=== PATIENT | male | born 1955 | race African-American/Black ===

== ENCOUNTER 2022-12-04 11:23 | Observation (INO) | payer OTHER, SELFPAY ==
[2022-12-04] VITALS (21 sets, daily range): BP systolic 94–143; BP diastolic 66–84; PULSE 58–82; RESP 12–20; TEMP 36–36.7; O2SAT 93–100; BMI 33.0
--- NOTE | ~2022-12-04 | XR_ITS ---
Portable chest x-ray Comparison: None Clinical History: Chest pain Findings: Lungs are clear, without focal consolidation or pleural effusion. Cardiomediastinal silho uette is unremarkable. Bones and soft tissues are unremarkable. Impression: Clear lungs. Reviewed, dictated and finalized at location M. OR QUALITY METHODS SPECIALIST Impression: Clear lungs.
--- NOTE | 2022-12-04 11:26 | ECG_ITS ---
Measurements Intervals [place] Rate: 60 P: 49 WY: 196 QRS: -35 QRSD: 108 T: 60 QT: 415 QTc: 416 Interpretive Statements SINUS RHYTHM MARKED LEFT AXIS DEVIATION [QRS AXIS < -30] INCOMPLETE RIGHT BUNDLE BRANCH BLOCK [90+ ms QRS DURATION, TERMINAL R IN V1/V2, 40+ ms S IN I/aVL/V4/V5/V6] NONSPECIFIC T-WAVE ABNORMALITY ABNORMAL ECG NO PREVIOUS ECG AVAILABLE FOR COMPARISON Electronically Signed On 12-04-2022 12:08:38 HOLE FILLER by Srinath Rod M.D.
--- NOTE | 2022-12-04 11:38 | ED.CHESTPAIN ---
HPI - Chest Pain General Chief Complaint: Chest Pain <NAUN Christiansen Last Filed: 12/04/22 16:40> Stated Complaint: cp <Shefali Bustamante PA-C - Last Filed: 12/04/22 16:40> Time Seen by Provider: 12/04/22 11:37 <Shefali Bustamante PA-C - Last Filed: 12/04/22 16:40> Source: patient and EMS <NAUN Christiansen Last Filed: 12/04/22 16:40> Mode of arrival: EMS <NAUN Christiansen Last Filed: 12/04/22 16:40> Limitations: no limitations <Shefali Bustamante PA-C - Last Filed: 12/04/22 16:40> History of Present Illness HPI narrative: This is a 67 year old male that presents to the ER for chest pain today. Reports he was walking up the steps and started to feel lightheaded like he was going to pass out. Reports he started to have chest pressure and feel short of breath. He called EMS for evaluation. He was given a dose of Aspirin and nitroglycerin in route. He does have a poultry debeaker that he sees at the [place] for his history of Afib. Reports he has had negative stress tests in the past. Denies lower extremity edema. <Shefali Bustamante PA-C - Last Filed: 12/04/22 16:40> Related Data Allergies/Adverse Reactions: Allergies Allergy/AdvReac Type Severity Reaction Status Date / Time No Known Allergies Allergy Verified 12/04/22 11:33 <Shefali Bustamante PA-C - Last Filed: 12/04/22 16:40> Review of Systems Review of Systems: CONSTITUTIONAL: Denies fever CARDIOVASCULAR: Reports chest pain. Denies edema. RESPIRATORY: Reports dyspnea. GASTROINTESTINAL: Denies abdominal pain, nausea, vomiting <NAUN Christiansen Last Filed: 12/04/22 16:40> All systems reviewed & are unremarkable except as noted in HPI and below <NAUN Christiansen Last Filed: 12/04/22 16:40> [facility] Past Medical History Medical History: Medical History (Updated 12/04/22 @ 16:50 by Mel Oliveros NP) End stage renal disease with hypertension History of atrial fibrillation History of chronic kidney disease History of diabetes mellitus History of hyperlipidemia Hypertension <Shefali Bustamante PA-C - Last Filed: 12/04/22 16:40> Surgical History Surgical History: Surgical History (Updated 12/04/22 @ 16:50 by Mle Oliveros NP) H/O cardiac radiofrequency ablation H/O hand surgery Surgery to finger History of colostomy reversal History of incisional hernia repair Hx of colostomy <Shefali Bustamante PA-C - Last Filed: 12/04/22 16:40> Family History Family History: Family History Mother Hypertension Father Hypertension Heart disease Sibling Heart disease <Shefali Bustamante PA-C - Last Filed: 12/04/22 16:40> Social History Social History: Social History (Updated 12/04/22 @ 16:51 by Mel Oliveros NP) Social History: The patient is retired from a [employer]. He lives with his . He has 3 children. The patient is a former smoker. The patient denies any alcohol marijuana illicit drugs. 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 Code status full code. Smoking packs per day: 2 Smoking cigarettes per day: 40.0 Years smoked: 10 Smoking pack-years: 20.00 Smoking status: Former smoker Lack of Transportation: No Lack of Food: Never True Current Housing: I Have Housing Concerned About Future Housing: No Difficulty Paying Gas/Electric Bills: YES Difficulty Paying for Meds: YES Currently Unemployed: No Education: Bachelor's Degree Difficulty w/ Childcare or Family Care: No Spiritual care concerns: No <Shefali Bustamante PA-C - Last Filed: 12/04/22 16:40> Exam Narrative: GENERAL: Well-nourished, and in no acute distress. HEAD: Normocephalic, atraumatic. EYES: EOMI. ENT: Nares clear, no rhinorrhea or epistaxis. Mucous membranes moist. Oropharynx without tonsillar hypertrophy exudate or other lesions. CHEST: Clear to auscultation. No respiratory distress.
[2022-12-04 12:01] LABS: Basophils Percent Auto 0.3 % (0.2-1.2); Eosinophils Absolute Auto 0.1 K/mm3 (0-0.3); Eosinophils Percent Auto 0.7 % (0-4.4); Hematocrit 34.6 % (42.0-52.0); Hemoglobin 11.5 g/dL (14.0-18.0); Immature Granulocyte Absolute 0.05 K/mm3 (0.00-0.031); Immature Granulocyte Percent A 0.5 % (0-0.5); Lymphocytes Absolute Auto 1.18 K/mm3 (0.9-3.2); Lymphocytes Percent Auto 10.7 % (18.3-44.2); Mean Corpuscular HGB Conc 33.2 g/dl (32-36); Mean Corpuscular Hemoglobin 30.1 pg (26-34); Mean Corpuscular Volume 90.6 fl (80-100); Mean Platelet Volume 10.8 fl (7.4-10.4); Monocytes Absolute Auto 1.2 K/mm3 (0.1-0.6); Monocytes Percent Auto 10.8 % (2.6-8.5); Neutrophils Absolute Auto 8.5 K/mm3 (1.3-6.7); Platelet Count Result 211 k/mm3 (150-375); Red Blood Count 3.82 M/mm3 (4.6-6.20); Red Cell Distribution Width 13.4 % (11.5-14.5); White Blood Count 11.1 K/mm3 (4.5-10.0)
[2022-12-04 12:12] LABS: Alanine Aminotransferase 21 U/L (6-50); Albumin Level 3.9 g/dL (3.5-5.1); Alkaline Phosphatase 102 U/L (38-126); Anion Gap 7 mmol/L (8-16); Aspartate Amino Transferase 20 U/L (17-59); Bilirubin,Total 0.6 mg/dL (0.2-1.3); Blood Urea Nitrogen 51 mg/dL (9-20); Calcium 8.2 mg/dL (8.4-10.2); Carbon Dioxide 24 mmol/L (22-30); Chloride 102 mmol/L (98-107); Estimated CRCL calculation 12 ml/min; Estimated Glomerular Filt Rate 10; Glucose 129 mg/dL (65-110); Lipase 356 U/L (23-300); Potassium 4.2 mmol/L (3.4-5.0); Sodium 133 mmol/L (137-145)
[2022-12-04 12:13] LABS: INR 1.6; Prothrombin Time 18.4 Seconds (11.1-14.7)
[2022-12-04 12:14] LABS: Partial Thromboplastin Time 36.8 SECONDS (22.3-36.8)
[2022-12-04 12:24] LABS: Troponin I < 0.012 ng/mL (0.000-0.034)
[2022-12-04 13:46] LABS: Influenza A QL RT-PCR Negative (Negative); Influenza B QL RT-PCR Negative (Negative); RSV RNA, RT-PCR Negative (Negative); SARS-CoV-2 RNA PCR Negative
--- NOTE | 2022-12-04 14:44 | PC.NURSE ---
[facility] called no beds at [facility]
[2022-12-04 15:11] LABS: Troponin I < 0.012 ng/mL (0.000-0.034)
--- NOTE | 2022-12-04 16:14 | PM.IMHP ---
H&P: HPI History of Present Illness Date/Time: 12/04/22 16:14 Chief Complaint: Chest pain Narrative: This is a 67-year-old male patient who came to the emergency room and far presyncopal episode today. The patient was walking up steps and started feeling lightheaded as if he was going to pass out. The patient started to have chest pressure and was feeling short of breath. He called the EMS for evaluation. The patient was given a dose of aspirin and nitro EN route. 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 He reports that he recently had a negative stress test. H&H 11.5 and 34.6. BUN 51 creatinine 6 weeks 6. Glucose 129. Troponin nonreactive x2. Influenza A/B RSV and COVID are negative. The patient stated that he is scheduled to have a port put in next week for dialysis. Chest x-ray was read as clear lungs. The patient was given an aspirin. The patient stated that he is waiting to be put on a transplant list. The patient stated that he has never had a cardiac catheterization or cardiac stent. The patient is currently in sinus rhythm. Cardiology has been consulted as well as Nephrology. The patient is being admitted to observation status on the date of service of 12/04/2022. Review of Systems Review of Systems: See HPI All systems reviewed & are unremarkable except as noted in HPI and below Constitutional: Constitutional: Reports as per HPI and Reports no additional constitutional complaints Eyes: Eyes: Reports as per HPI and Reports no additional eye complaints ENT: Reports system reviewed and no additional complaints, except as documented and Reports Normal hearing present Cardiovascular: Cardiovascular: Reports no additional cardiovascular complaints Respiratory: Respiratory: Reports no additional respiratory complaints and Reports no additional respiratory complaints Gastrointestinal: Gastrointestinal: Reports as per HPI and Reports no additional gastrointestinal complaints Musculoskeletal: Musculoskeletal: Reports no additional musculoskeletal complaints Integumentary/Breasts: Skin/Breast: Reports system reviewed and no additional complaints, except as docu and Reports as per HPI Neurologic: Reports system reviewed and no additional complaints, except as documented, Reports as per HPI and Reports Normal hearing present Psychiatric: Psychiatric: Reports no additional psychiatric complaints and Reports as per HPI Endocrine: Endocrine: Reports no additional endocrine complaints Hematologic/Lymphatic: Hematologic/Lymphatic: Reports no additional hematologic/lymphatic complaints Allergic/Immunologic: Allergic/Immunologic: Reports no additional allergic/immunologic complaints [facility] Past Medical History Medical History (Updated 12/04/22 @ 16:50 by Mel Oliveros NP) End stage renal disease with hypertension History of atrial fibrillation History of chronic kidney disease History of diabetes mellitus History of hyperlipidemia Hypertension Surgical History Surgical History (Updated 12/04/22 @ 16:50 by Mel Oliveros NP) H/O cardiac radiofrequency ablation H/O hand surgery Surgery to finger History of colostomy reversal History of incisional hernia repair Hx of colostomy Family History Family History (Updated 12/04/22 @ 16:45 by Mel Oliveros NP) Mother Hypertension Father Hypertension Heart disease Sibling Heart disease Social History Social History (Updated 12/04/22 @ 16:51 by Mel Oliveros NP) Social History: 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 He lives with his . He has 3 children. The patient is a former smoker. The patient denies any alcohol marijuana illicit drugs. The is the durable power staff attorney for healthcare. Code status full code. Smoking packs per day: 2 Smoking cigarettes per day: 40.0 Years smoked: 10 Smoking pack-years: 20.00 Smoking status: Former smoker Lack of Transportation: No [place]
--- NOTE | 2022-12-04 16:18 | ADMGEN ---
This patient, Kemal Cali, was admitted to IMU Room 209-01 at 1618. Patient/family oriented to hospital policies and general routines including ID bracelet, bed and alarms, visiting hours, pain management, procedures, bathroom and other care routines, personal items, smoking policy, room service/diet, and visiting hours. Information on how to activate the Rapid Response Team has been discussed. Patient/Family are encouraged to report perceived risks to care and to ask questions if they do not understand what they are told or what they should do.
[2022-12-04 16:43] LABS: Glucose Point of Care 105 mg/dl (65-105)
[2022-12-04 18:31] LABS: Troponin I < 0.012 ng/mL (0.000-0.034)
[2022-12-04 20:17] LABS: Glucose Point of Care 162 mg/dl (65-105)
[2022-12-04] MEDS: ATORVASTATIN 40 MG TABLET 80 MG PO (22:40)
[2022-12-04] MEDS: APIXABAN 5 MG TABLET PO (22:40)
[2022-12-04] MEDS: SODIUM BICARBONATE TAB 650 MG TABLET 1300 MG PO (22:40)
[2022-12-04] MEDS: GABAPENTIN 300 MG CAPSULE 600 MG PO (22:40)
[2022-12-04] MEDS: TAMSULOSIN HCL 0.4 MG CAPSULE PO (22:41)
[2022-12-05] VITALS (10 sets, daily range): BP systolic 138–144; BP diastolic 68–77; PULSE 58–69; RESP 18–20; TEMP 36.6–36.9; O2SAT 98–99
--- NOTE | 2022-12-05 | ECHO_ITS ---
Patient Info Name: Kemal Cali Age: 67 years : 1955 Gender: Male Ht: 69 in Wt: 223 lbs BSA: 2.25 m2 HR: 62 bpm BP: 133 / 82 mmHg Heart Rhythm: Sinus Rhythm Exam Date: 12/05/2022 8:18 AM Exam Location: [facility] Patient Status: Inpatient Admit Date: 12/04/2022 Staff Ordering Physician: Mel Oliveros NP Biochemist: Jose Angel Hicks RDCS, RT Attending Provider: Louise Blanchard DO Referring Physician: Arlin LANDRY; Exam Type: CA echo doppler color flow Study Info Indications J96.91 - Respiratory failure, unspecified with hypoxia R06.00 - Dyspnea, unspecified Complete two-dimensional, color flow and Doppler transthoracic echocardiogram is performed. Summary 1. Complete two-dimensional, color flow and Doppler transthoracic echocardiogram is performed. 2. Normal left ventricular size, hyperdynamic systolic function and grade 1 diastolic noncompliance. 3. No valvular dysfunction. 4. No ischemic wall motion abnormalities. Left Ventricle Left ventricular chamber dimension is normal. Left ventricular systolic function is hyperdynamic, estimated at >70%. The left ventricular diastolic function is grade I diastolic dysfunction. Right Ventricle Right ventricular chamber dimension is normal. Left Atria Left atrial chamber dimension is normal. Right Atria Right atrial chamber dimension is normal. Aortic Valve The aortic valve is normal. Pulmonic Valve The pulmonic valve is not well visualized. Mitral Valve The mitral valve has normal leaflets. Tricuspid Valve The tricuspid valve leaflets are normal. Pericardium/Pleural The pericardium appears normal. Aorta The aortic root size at the sinus of Valsalva is normal. Left Ventricular Outflow Tract Name Value Normal LVOT 2D LVOT Diameter 2.1 cm LVOT Doppler LVOT Peak Gradient 4 mmHg LVOT Mean Gradient 2 mmHg LVOT VTI 21 cm LVOT VTI/AV VTI Ratio 1.1 LVOT Stroke Volume 72 ml LVOT CO 4.9 l/min LVOT CI 2.2 l/min/m2 Mitral Valve Name Value Normal MV Doppler MV Peak Gradient 1 mmHg MV Mean Gradient 0 mmHg MV Decel [place] 263 cm/s2 MV PHT 68 ms MV Area (PHT) 3.2 cm2 4.0-5.0 MV Area (Cont Eq VTI) 6.2 cm2 MV Regurgitation Doppler MR Volume (Cont Eq) 13 ml MR Fraction (Cont Eq) 16 % MV Diastolic Function
[2022-12-05 04:50] LABS: Basophils Percent Auto 0.2 % (0.2-1.2); Eosinophils Absolute Auto 0.3 K/mm3 (0-0.3); Eosinophils Percent Auto 3.2 % (0-4.4); Hematocrit 34.4 % (42.0-52.0); Hemoglobin 11.4 g/dL (14.0-18.0); Immature Granulocyte Absolute 0.04 K/mm3 (0.00-0.031); Immature Granulocyte Percent A 0.5 % (0-0.5); Lymphocytes Absolute Auto 1.42 K/mm3 (0.9-3.2); Lymphocytes Percent Auto 17.5 % (18.3-44.2); Mean Corpuscular HGB Conc 33.1 g/dl (32-36); Mean Corpuscular Hemoglobin 29.7 pg (26-34); Mean Corpuscular Volume 89.6 fl (80-100); Mean Platelet Volume 10.8 fl (7.4-10.4); Monocytes Absolute Auto 0.7 K/mm3 (0.1-0.6); Monocytes Percent Auto 9.1 % (2.6-8.5); Neutrophils Absolute Auto 5.6 K/mm3 (1.3-6.7); Neutrophils Percent Auto 69.5 % (45.5-73.1); Platelet Count Result 212 k/mm3 (150-375); Red Blood Count 3.84 M/mm3 (4.6-6.20); Red Cell Distribution Width 13.2 % (11.5-14.5); White Blood Count 8.1 K/mm3 (4.5-10.0)
[2022-12-05 05:01] LABS: Alanine Aminotransferase 21 U/L (6-50); Albumin Level 3.7 g/dL (3.5-5.1); Alkaline Phosphatase 99 U/L (38-126); Anion Gap 9 mmol/L (8-16); Aspartate Amino Transferase 21 U/L (17-59); Bilirubin,Total 0.4 mg/dL (0.2-1.3); Blood Urea Nitrogen 51 mg/dL (9-20); Calcium 8.3 mg/dL (8.4-10.2); Carbon Dioxide 23 mmol/L (22-30); Chloride 108 mmol/L (98-107); Estimated CRCL calculation 12 ml/min; Estimated Glomerular Filt Rate 10; Glucose 127 mg/dL (65-110); Lipase 473 U/L (23-300); Magnesium 1.9 mg/dL (1.6-2.3); Potassium 4.1 mmol/L (3.4-5.0); Sodium 140 mmol/L (137-145)
[2022-12-05 05:04] LABS: Lactic Acid Reflex 1.1 mmol/L (0.7-2.0)
[2022-12-05 05:36] LABS: Hemoglobin A1C 5.8 % (<5.7)
[2022-12-05 05:50] LABS: Hepatitis B Surface Antigen Negative (Negative)
[2022-12-05 05:56] LABS: HAV RESULT Negative (Negative); Hepatitis B Core IgM Result Negative (Negative)
[2022-12-05 06:10] LABS: Hepatitis B Surface Anti Res Positive; Hepatitis C Virus Antibody Negative (Negative)
[2022-12-05 08:29] LABS: Glucose Point of Care 125 mg/dl (65-105)
[2022-12-05] MEDS: APIXABAN 5 MG TABLET PO (09:00)
[2022-12-05] MEDS: CHOLECALCIFEROL 1,000 UNITS TABLET 1000 UNITS PO (09:01)
[2022-12-05] MEDS: MAGNESIUM OXIDE 400 MG TABLET PO (09:01)
[2022-12-05] MEDS: METOPROLOL SUCCINATE EXT REL 100 MG TABCR PO (09:01)
[2022-12-05] MEDS: SODIUM BICARBONATE TAB 650 MG TABLET 1300 MG PO (09:02)
[2022-12-05] MEDS: NIFEdipine 30 MG TAB.ER.24 90 MG PO (09:02)
[2022-12-05] MEDS: TAMSULOSIN HCL 0.4 MG CAPSULE PO (09:02)
--- NOTE | 2022-12-05 10:56 | PM.CNCAR ---
Assessment and Plan Assessment and plan (1) Chest pain: Qualifiers: Chest pain type: unspecified Qualified Code(s): R07.9 - Chest pain, unspecified Code(s): R07.9 - Chest pain, unspecified Status: Acute (2) Near syncope: Code(s): R55 - Syncope and collapse Status: Acute Plan This is a 67-year-old black male with a history of atrial fibrillation which apparently has been successfully ablated at the [facility]. He is maintaining sinus rhythm. He came to the hospital yesterday after couple of near syncopal episodes that occurred as an outpatient. His telemetry has been benign since admission to the hospital. An echocardiogram apparently has been done this morning I have yet been up to the echo lab to interpret the exam. There is no evidence of acute coronary syndrome his troponins are negative and he has no history of coronary disease and describes having had at least several stress test at the [facility] that have been negative. He does have near end-stage renal disease and is anticipating vascular access placement at the [facility] for institution of hemodialysis. I believe at this point acute coronary syndrome has been ruled out. If his echocardiogram looks unrevealing I do not believe that he needs to stay in this hospital for further evaluation/monitoring. He has very good medical care and cardiovascular care established at the [facility]. Mert Aldana MD [facility] History of Present Illness History of Present Illness Consult date/time: 12/05/22 10:56 Reason For Visit: chest pain Narrative: This is a 67-year-old man unknown to us here at [facility] prior to this admission. He came to the hospital yesterday and was admitted after a couple of episodes of near syncope that occurred outside of the hospital. 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 His vision started to go dark and then he almost lost consciousness and then regained and recovered relatively quickly. Short time later a similar episode occurred and so he had coworkers call an ambulance and he was brought to the hospital for evaluation. The patient other than feeling tired has no specific complaints this morning his electrocardiogram shows sinus rhythm with a nonspecific T-wave abnormality. He has serial troponin levels that have been sampled and they are negative. He offers no other significant complaints. The with regard to chest pain he states that he does have episodes of some mid interscapular back pain that at times will radiate into the center of his chest. The symptoms have been occurring intermittently for at least to 2 or 3 years. The patient receives his medical care at the [facility] and cardiac storm has and a history of atrial fibrillation. He states that physicians at the [facility] have treated him with several ablation procedures which ultimately seem to have succeeded in maintaining sinus rhythm for he thinks about the last 5 or 6 years. Does not have any other known cardiac problems he states that he has had at least 3 stress test at the [facility] at evaluating the symptoms of back pain and also evaluating him as a candidate for renal transplantation. He states he has a history of diabetes and hypertension but preceding that he has a history of renal disease and he does not have a specific reason for his renal failure that he understands. A local company refrigerated truck driver at the [facility] is following him and they are making preparations to established vascular access for hemodialysis his creatinine here at [facility] is up to 6. He states he is hopeful of getting on the list for a kidney transplant as well. He states he does have occasional syncopal episodes in the past which are attributed episodes of diabetic hypoglycemia. He recognizes the sympto
--- NOTE | 2022-12-05 11:15 | PM.CNNEP ---
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/dialysis at this time follow trend of repeat labs and UOP (2) Near syncope: Code(s): R55 - Syncope and collapse Status: Acute Assessment and Plan: as noted by admission history trend of troponins negative no further episodes since hospitalization Cardiology recommendations noted (3) Hypertension: Code(s): I10 - Essential (primary) hypertension Status: Chronic Assessment and Plan: reasonable control given advanced CKD, would avoid overcontrol for now follow trend of hemodynamics (4) Diabetes: Code(s): E11.9 - Type 2 diabetes mellitus without complications Status: Chronic Assessment and Plan: follow accuchecks glycemic control per hospitalists Will continue to follow. History of Present Illness Reason for Consult Consult date: 12/05/22 Reason for consult: chronic renal failure Chief Complaint Chief complaint: chest pain History of Present Illness Narrative: The patient is a 67-year-old male with a past medical history as outlined below who presented to [facility] Emergency room yesterday for further evaluation of near-syncope. Apparently, the patient had a couple episodes of near-syncope yesterday afternoon. He reports he was walking up some steps at his job when suddenly felt a sense of uneasiness in association with lightheadedness and he felt like he was going to lose consciousness /pass out. His vision became somewhat dark but prior to loss of consciousness he quickly regained his sense of well-being and recovered fairly quickly. A short time later after this episode a similar episode occurred and at that time he instructed is cold all coworkers to call an ambulance to be taken to the hospital ER for further assessment. Workup and evaluation in emergency room demonstrated the patient to be hemodynamically stable and his EKG initial troponins were unrevealing for any type of acute coronary syndrome/ischemic changes. Routine blood tests including his CBC were unrevealing but his chemistry demonstrated advanced kidney disease that is consistent with his known history. The patient apparently of sees the majority of his medical care at [facility] and the ambulance was apparently and root there but given his symptomatology, he was diverted to [facility] for further assessment. As there were no beds available for transfer at the time of the patient's evaluation in the ER, he was subsequent admitted to [facility] for further evaluation and therapy. Since admission, he has been seen by Cardiology with recommendations noted and for the tentative plan for possible discharge if his echocardiogram does not show any type of abnormalities to explain the a for mentioned symptoms that led to his presentation to the hospital. Renal consultation was requested due to his advanced kidney disease. The patient follows with Dr. Angela Augustin for management of his advanced chronic kidney disease. Apparently, the basis of his chronic kidney disease is due to focal segmental glomerulosclerosis with probably some contributions to his known hypertension and diabetes. Apparently, his chronic kidney disease has been progressively worsening over last few months and has eventually recommended that he have AV access placement for his long-term dialysis needs as well as to apply for a renal transplantat
[2022-12-05 12:38] LABS: Glucose Point of Care 117 mg/dl (65-105)
--- NOTE | 2022-12-05 13:10 | PM.IMPN ---
Progress Note: A&P Assessment and Plan (1) Chest pain: Qualifiers: Chest pain type: unspecified Qualified Code(s): R07.9 - Chest pain, unspecified Code(s): R07.9 - Chest pain, unspecified Status: Acute Assessment and Plan: Continue to trend troponin. So for the troponins have been nonreactive x2. -cardiology has been consulted -chest x-ray negative -continue to trend troponin. -request records for stress test. (2) Hypertension: Code(s): I10 - Essential (primary) hypertension Status: Acute Assessment and Plan: -p.r.n. Hydralazine for now. The patient's list of home medications are not in place at this time. (3) History of diabetes mellitus: Code(s): Z86.39 - Personal history of other endocrine, nutritional and metabolic disease Status: Acute Assessment and Plan: -Accu-Cheks AC and HS with sliding scale and hypoglycemic protocol. -check A1c. (4) History of chronic kidney disease: Code(s): Z87.448 - Personal history of other diseases of urinary system Status: Acute Assessment and Plan: -the patient stated that he is supposed to have a port placed in 1 week. The patient stated he is not yet on a transplant list but would like to be. Nephrology has been consulted. (5) History of atrial fibrillation: Code(s): Z86.79 - Personal history of other diseases of the circulatory system Status: Acute Assessment and Plan: -the patient had an ablation recently. Unsure if the patient is on any anticoagulation. (6) End stage renal disease with hypertension: Code(s): I12.0 - Hypertensive chronic kidney disease with stage 5 chronic kidney disease or end stage renal disease; N18.6 - End stage renal disease Status: Acute Assessment and Plan: Patient stated that he is supposed to receive a port for dialysis next week. Nephrology has been consulted. Patient's creatinine 6.6 with a GFR of 10. His potassium was within normal limits. Subjective Date/time seen: 12/05/22 13:10 No new complaints Exam Const: General: cooperative, healthy appearing, comfortable, no acute distress, well developed, alert, awake, Physically active, average body habitus and well nourished Nutritional Appearance: average body habitus and well nourished Orientation/consciousness: oriented to person, oriented to place, oriented to time and patient oriented x3 Limitations: no limitations HENMT: Head: normal to inspection, No palpable skull fracture present, normocephalic and atraumatic Ears: hearing grossly normal bilaterally and external ears normal Face/Nose/Sinus: Normal external nose present and Normal nares present Eyes: General: appearance normal, both eyes and all related structures Alignment and Position: alignment normal Periorbital: periorbital findings normal Eyelids: eyelids normal Sclera: sclerae normal Cornea: corneas normal Pupils: Equal, round and reactive pupils present EOM: EOMs intact bilaterally Neck: Neck: normal visual inspection, full ROM, no lymphadenopathy, trachea midline and supple Chest: Chest palpation & inspection: normal inspection of the chest Resp: Effort & Inspection: normal respiratory effort Auscultation: clear to auscultation bilaterally Cardio: Palpation: normal PMI Rate: regular rate Rhythm: regular rhythm Heart sounds: S1 normal heart sound present and S2 normal heart sound present Peripheral pulses: Peripheral pulses 2+ throughout GI: Inspection: normal to inspection Auscultation: normal bowel sounds Rectal Exam: deferred Back/Spine/Pelvis: Cervical Spine: cervical ROM normal Skin: General skin exam: normal color Lesions: no lesions Rashes: no rashes Trauma: no lacerations or abrasions Wounds: no wounds Hair: normal Nails: normal Neuro: General: oriented to person, oriented to place, oriented to time and patient oriented x3 Cranial nerves: Yes Equal, round and reactive pupils prese
--- NOTE | 2022-12-05 15:26 | PM.DS ---
DS: Admitting Diagnosis Discharge Date 12/05/22 Admitting Diagnosis chest pain DS: Discharge Diagnosis Discharge Diagnosis (1) Chest pain: Qualifiers: Chest pain type: unspecified Qualified Code(s): R07.9 - Chest pain, unspecified Code(s): R07.9 - Chest pain, unspecified Status: Acute Assessment and Plan: Continue to trend troponin. So for the troponins have been nonreactive x2. -cardiology has been consulted -chest x-ray negative -continue to trend troponin. -request records for stress test. (2) Hypertension: Code(s): I10 - Essential (primary) hypertension Status: Chronic Assessment and Plan: -p.r.n. Hydralazine for now. The patient's list of home medications are not in place at this time. (3) History of diabetes mellitus: Code(s): Z86.39 - Personal history of other endocrine, nutritional and metabolic disease Status: Acute Assessment and Plan: -Accu-Cheks AC and HS with sliding scale and hypoglycemic protocol. -check A1c. (4) History of chronic kidney disease: Code(s): Z87.448 - Personal history of other diseases of urinary system Status: Acute Assessment and Plan: -the patient stated that he is supposed to have a port placed in 1 week. The patient stated he is not yet on a transplant list but would like to be. Nephrology has been consulted. (5) History of atrial fibrillation: Code(s): Z86.79 - Personal history of other diseases of the circulatory system Status: Acute Assessment and Plan: -the patient had an ablation recently. Unsure if the patient is on any anticoagulation. (6) End stage renal disease with hypertension: Code(s): I12.0 - Hypertensive chronic kidney disease with stage 5 chronic kidney disease or end stage renal disease; N18.6 - End stage renal disease Status: Acute Assessment and Plan: Patient stated that he is supposed to receive a port for dialysis next week. Nephrology has been consulted. Patient's creatinine 6.6 with a GFR of 10. His potassium was within normal limits. DS: Summary Hospital Course Hospital Course: admitted for chest pain- cardiology and nephrology evaluated patient - no further powell indicated and he can fu with nephrology and cardiology at [place] Time Spent with Patient Time attestation: Total time spent providing and/or coordinating discharge services: Exam Const: General: cooperative, healthy appearing, comfortable, no acute distress, well developed, alert, awake, Physically active, average body habitus and well nourished Nutritional Appearance: average body habitus and well nourished Orientation/consciousness: oriented to person, oriented to place, oriented to time and patient oriented x3 Limitations: no limitations HENMT: Head: normal to inspection, No palpable skull fracture present, normocephalic and atraumatic Ears: hearing grossly normal bilaterally and external ears normal Face/Nose/Sinus: Normal external nose present and Normal nares present Eyes: General: appearance normal, both eyes and all related structures Alignment and Position: alignment normal Periorbital: periorbital findings normal Eyelids: eyelids normal Sclera: sclerae normal Cornea: corneas normal Pupils: Equal, round and reactive pupils present EOM: EOMs intact bilaterally Neck: Neck: normal visual inspection, full ROM, no lymphadenopathy, trachea midline and supple Chest: Chest palpation & inspection: normal inspection of the chest Resp: Effort & Inspection: normal respiratory effort Auscultation: clear to auscultation bilaterally Cardio: Palpation: normal PMI Rate: regular rate Rhythm: regular rhythm Heart sounds: S1 normal heart sound present and S2 normal heart sound present Peripheral pulses: Peripheral pulses 2+ throughout GI: Inspection: normal to inspection Auscultation: normal bowel sounds Rectal Exam: deferred Back/Spine/Pelvis: Cervical Spine: cervica
[2022-12-10 14:14] LABS: Hepatitis B Core Ab Total Nonreactive (Nonreactive)
== END 2022-12-05 16:10 | disposition home or self-care (01) ==
LOC: ANHED 13:36 → ANHIMU 15:37
PROVIDERS: Emergency Medicine; Internal Medicine Nephrology; Nurse Practitioner; Admitting Provider Student in an Organized Health Care Education/Training Program; Emergency Provider Physician Assistant; Visit Provider Chiropractor
DX: I12.0 Hypertensive chronic kidney disease with stage 5 chronic kidney disease or end stage renal disease (principal); E11.22 Type 2 diabetes mellitus with diabetic chronic kidney disease; N18.6 End stage renal disease; R07.9 Chest pain, unspecified; R55 Syncope and collapse; I48.91 Unspecified atrial fibrillation; J96.91 Respiratory failure, unspecified with hypoxia; E78.5 Hyperlipidemia, unspecified; Z20.822 Contact with and (suspected) exposure to COVID-19; R74.8 Abnormal levels of other serum enzymes; R94.31 Abnormal electrocardiogram [ECG] [EKG]; D72.829 Elevated white blood cell count, unspecified; D64.9 Anemia, unspecified; Z82.49 Family history of ischemic heart disease and other diseases of the circulatory system; Z87.891 Personal history of nicotine dependence; Z79.01 Long term (current) use of anticoagulants; Z79.4 Long term (current) use of insulin; Z79.85 Long-term (current) use of injectable non-insulin antidiabetic drugs; Z79.899 Other long term (current) drug therapy
CPT/HCPCS: 36415; 71045; 80053; 80074; 82948; 83036; 83605; 83690; 83735; 84443; 84484; 85025; 85610; 85730; 86704; 86706; 87340; 87637; 93005; 93306; 99285; A9270; G0378

== ENCOUNTER 2024-06-15 12:09 | Emergency (ER) | payer OTHER, SELFPAY ==
[2024-06-15] VITALS (8 sets, daily range): BP systolic 111–165; BP diastolic 59–84; PULSE 42–64; RESP 12–26; TEMP 36.7; O2SAT 97–99
--- NOTE | ~2024-06-15 | XR_ITS ---
XR chest 1V portable 06/15/2024 13:10 Indication: Hypotension. Bradycardia. Procedure: AP portable chest Comparison: 12/04/2022 Findings: Heart size normal. No focal air space disease, pulmonary edema, pleural effusion or suspect ed pneumothorax. Impression: 1: No acute cardiopulmonary disease. Reviewed, dictated and finalized at location B. Impression: 1: No acute cardiopulmonary disease.
--- NOTE | 2024-06-15 12:13 | ECG_ITS ---
Test Date: 2024-06-15 12:25:24 Measurements Intervals [place] Rate: 47 P: 29 NC: 193 QRS: -36 QRSD: 110 T: 39 QT: 427 QTc: 378 Interpretive Statements SINUS BRADYCARDIA LEFT AXIS DEVIATION INCOMPLETE RIGHT BUNDLE BRANCH BLOCK BASELINE ARTIFACT- I, II, AVR ABNORMAL ECG No previous ECG available for comparison Electronically Signed On 06-15-2024 12:52:43 CDT by Jose Roe D.O.
--- NOTE | 2024-06-15 12:14 | ED.GENADULT ---
HPI - General Adult General Chief complaint: Weakness Stated complaint: weak, nausea History of Present Illness HPI narrative: 68-year-old male with end-stage kidney disease presented emergency department for evaluation for lightheadedness. Patient states symptoms started approximately 8:00 a.m. this morning. Patient states he has been eating and drinking well. Patient reports he was feeling okay yesterday. Patient denies any chest pain or shortness of breath. Patient denies any nausea vomiting or diarrhea. Patient was at dialysis when he began feeling poorly. Patient had a heart rate in the 40s to 50s and a blood pressure in the 70s systolic EMS was called and patient arrived to the emergency department with IV fluids running. Patient states he does feel mildly improved patient's blood pressure is improved. Related Data Home Medications Medication Instructions Recorded Confirmed apixaban 5 mg tablet 5 mg PO BID 12/04/22 12/04/22 atorvastatin 80 mg tablet 80 mg PO HS 12/04/22 12/04/22 calcitriol 0.5 mcg capsule 0.5 mcg PO 3XW 12/04/22 12/04/22 ergocalciferol (vitamin D2) 50,000 1,000 unit PO DAILY 12/04/22 12/04/22 unit tablet febuxostat 80 mg tablet (Uloric) 80 mg PO DAILY 12/04/22 12/04/22 gabapentin 300 mg tablet 600 mg PO HS 12/04/22 12/04/22 insulin aspart U-100 100 unit/mL 10 unit subcut BID 12/04/22 12/04/22 (3 mL) subcutaneous pen (Novolog FlexPen U-100 Insulin aspart) insulin glargine 100 unit/mL 16 unit subcut DAILY 12/04/22 12/04/22 subcutaneous cartridge magnesium oxide 400 mg PO DAILY 12/04/22 12/04/22 metoprolol succinate 200 mg 100 mg PO DAILY 12/04/22 12/04/22 tablet,extended release 24 hr nifedipine 90 mg tablet,extended 90 mg PO DAILY 12/04/22 12/04/22 release omeprazole magnesium 20 mg 20 mg PO DAILY 12/04/22 12/04/22 tablet,delayed release (Prilosec OTC) semaglutide 1 mg/dose (4 mg/3 mL) 1 mg subcut WEEKLY 12/04/22 12/04/22 subcutaneous pen injector (Ozempic) sodium bicarbonate 650 mg tablet 1,300 mg PO BID 12/04/22 12/04/22 tamsulosin 0.4 mg capsule (Flomax) 0.4 mg PO BID 12/04/22 12/04/22 Allergies Allergy/AdvReac Type Severity Reaction Status Date / Time No Known Allergies Allergy Verified 12/04/22 11:33 Review of Systems Review of Systems: All systems reviewed & are unremarkable except as noted in HPI and below PMFSH Past Medical History Medical History (Updated 06/15/24 @ 15:19 by Naveen Ortiz MD) Chronic kidney disease (CKD), stage V End stage renal disease with hypertension History of atrial fibrillation History of chronic kidney disease History of diabetes mellitus History of hyperlipidemia Hypertension Surgical History Surgical History (Updated 12/04/22 @ 16:50 by Mel Oliveros NP) H/O cardiac radiofrequency ablation H/O hand surgery Surgery to finger History of colostomy reversal History of incisional hernia repair Hx of colostomy Family History Family History Mother Hypertension Father Hypertension Heart disease Sibling Heart disease Social History Social History (Updated 12/04/22 @ 16:51 by Mel Oliveros NP) Social History: 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 He lives with his . He has 3 children. The patient is a former smoker. The patient denies any alcohol marijuana illicit drugs. The is the durable power workers compensation attorney for healthcare. Code status full code. Smoking packs per day: 2 Smoking cigarettes per day: 40.0 Years smoked: 10 Smoking pack-years: 20.00 Smoking status: Former smoker Lack of Transportation: No Lack of Food: Never True Current Housing: I Have Housing Concerned About Future Housing: No Difficulty Paying Gas/Electric Bills: YES Difficulty Paying for Meds: YES Currently Unemployed: No Education: Bachelor's Degree Difficulty w/ Childcare or Family Care: No Spiritual care concerns: No
[2024-06-15 12:36] LABS: Basophils Percent Auto 0.3 % (0.2-1.2); Eosinophils Absolute Auto 0.3 K/mm3 (0-0.3); Eosinophils Percent Auto 2.8 % (0-4.4); Hematocrit 29.1 % (42.0-52.0); Hemoglobin 9.9 g/dL (14.0-18.0); Immature Granulocyte Absolute 0.09 K/mm3 (0.00-0.031); Lymphocytes Absolute Auto 1.81 K/mm3 (0.9-3.2); Lymphocytes Percent Auto 20.2 % (18.3-44.2); Mean Corpuscular Hemoglobin 31.8 pg (26-34); Mean Corpuscular Volume 93.6 fl (80-100); Mean Platelet Volume 10.6 fl (7.4-10.4); Monocytes Absolute Auto 0.7 K/mm3 (0.1-0.6); Monocytes Percent Auto 7.7 % (2.6-8.5); Neutrophils Absolute Auto 6.1 K/mm3 (1.3-6.7); Platelet Count Result 210 k/mm3 (150-375); Red Blood Count 3.11 M/mm3 (4.6-6.20); Red Cell Distribution Width 13.5 % (11.5-14.5); White Blood Count 8.9 K/mm3 (4.5-10.0)
[2024-06-15 12:51] LABS: Alanine Aminotransferase 19 U/L (6-50); Albumin Level 3.9 g/dL (3.5-5.1); Alkaline Phosphatase 60 U/L (38-126); Anion Gap 11 mmol/L (4-12); Aspartate Amino Transferase 22 U/L (17-59); Bilirubin,Total 0.4 mg/dL (0.2-1.3); Blood Urea Nitrogen 56 mg/dL (9-20); Carbon Dioxide 25 mmol/L (22-30); Chloride 98 mmol/L (98-107); Estimated CRCL calculation 9 ml/min; Estimated Glomerular Filt Rate 7; Glucose 114 mg/dL (65-110); Magnesium 1.9 mg/dL (1.6-2.3); Potassium 5.4 mmol/L (3.4-5.0); Sodium 134 mmol/L (137-145)
[2024-06-15 13:03] LABS: Influenza A QL RT-PCR Negative (Negative); Influenza B QL RT-PCR Negative (Negative); RSV RNA, RT-PCR Negative (Negative); SARS-CoV-2 RNA PCR Negative (Negative)
[2024-06-15 14:10] LABS: Add Urine Microscopic? YES; Appearance Urine Clear (Clear); Bacteria Urine None Seen /hpf; Bilirubin Urine Negative (Negative); Blood Urine Trace (Negative); Color Urine Yellow (Yellow); Glucose Urine UA Negative (Negative); Ketones Urine Negative (Negative); Leukocyte Esterase Ur Negative LEU/UL (Negative); Need Manual Microscopic Reviewed; Nitrate Urine Negative (Negative); Protein Urine 1+ mg/dL (Negative); RBC Urine 0-2 /hpf (0-2); Specific Grav Ur 1.007 (1.001-1.035); Squamous Epithelial Cell Urine None Seen /hpf (Few); Urobilinogen Urine 0.2 mg/dL (<2.0); WBC Urine 0-5 /hpf (0-3); pH Urine 5.5 (5.0-9.0)
== END 2024-06-15 15:21 | disposition home or self-care (01) ==
PROVIDERS: Emergency Provider Emergency Medicine
DX: R42 Dizziness and giddiness (principal); N18.6 End stage renal disease; I12.0 Hypertensive chronic kidney disease with stage 5 chronic kidney disease or end stage renal disease; E11.22 Type 2 diabetes mellitus with diabetic chronic kidney disease; E78.5 Hyperlipidemia, unspecified; I48.91 Unspecified atrial fibrillation; Z87.891 Personal history of nicotine dependence; Z20.822 Contact with and (suspected) exposure to COVID-19
CPT/HCPCS: 36415; 71045; 80053; 81001; 83735; 85025; 87637; 93005; 99283

== ENCOUNTER 2024-12-04 22:19 | Emergency (ER) | payer MEDICARE, SELFPAY ==
--- NOTE | ~2024-12-04 | XR_ITS ---
Portable chest x-ray Comparison: 10/25/2024 Clinical History: Infection Findings: Lungs are clear, without focal consolidation or pleural effusion. Cardiomediastinal silho uette is prominent. Bones and soft tissues are unremarkable. Impression: Clear lungs. Possible cardiomegaly. Reviewed, dictated and finalized at location . 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 Possible cardiomegaly.
--- NOTE | ~2024-12-04 | CT_ITS ---
Clinical Indication: Hypotension CT Scan of the Chest with Contrast: Technique: Contiguous sections were acquired throughout the chest after intravenous administration of 100 cc of Omnipaque 350. Dose reduction technique was used on this scan by utilizing automated expos ure control and iterative reconstruction technique. The dose-length product (DLP) was 793.59 mGy-cm. COMPARISON: 10/25/2024 Findings: There is no evidence of any significant mediastinal, hilar or axillary lymphadenopathy. There is no f illing defect in the pulmonary arterial tree to suggest pulmonary embolus. There is no evidence of ao rtic dissection or aneurysm. There is no evidence of pleural or pericardial effusion. The lungs are clear, aside from minimal dependent atelectatic changes. Images through the upper abdomen reveal no abnormalities. Impression: No evidence of pulmonary embolus, aortic dissection, or aortic aneurysm. No significant pulmonary abnormality. Reviewed, dictated and finalized at [facility]. 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 No significant pulmonary abnormality.
--- OUTSIDE RECORDS SUMMARY | 2024-12-04 22:22 | XMS_ITS | Clinical Summary ---
Author Organization [facility] Address [address] [place] [address] Care Team Providers Care Life Scientist Name Role Phone Thao Mcqueen Primary Care Provider Unavailab le Source Comments [facility],non-owned Affiliates and Associated Physician Practices is amultiple site organization consisting of ambulatory clinics and hospital sitesin [place], [place], [place] and [place]. This disclosure is being madepursuant to the Care Everywhere program and may not contain all information available regarding this patient. Last updated 18.[facility] Allergies Active Allergy Reactions Criticality Noted Date Comments Morphine Other Medium 06/30/2023 Makes him incoherent, hallucinations Medications * Be aware that medications may not be up to date on this document. Alwaysverify current medications with the patient. Medication Sig Dispensed Refills Start Date End Date Status vitamin D3 (CHOLECALCIFEROL ) 25 MCG (1000 UNITS) tablet Take 1 (one) tablet by mouth once daily Active febuxostat (ULORIC) 40 MG tablet Take 1 (one) tablet by mouth once daily Active sodium bicarbonate 650 MG tablet Take 1 (one) tablet by mouth once daily Active atorvastatin (LIPITOR) 80 MG tablet Take 1 tablet by mouth at bedtime 02/03/2020 Active magnesium oxide (MAG-OX) 400 MG tablet Take 1 tablet by mouth 2 times daily 60 tablet 02/03/2020 Active NIFEdipine CR 24hr (Adalat CC) 90 MG tablet Take 1 (one) tablet by mouth once daily Take on an empty stomach. Active calcitriol (Rocaltrol) 0.25 MCG capsule Take 4 (four) capsules by mouth once daily Active renal vitamin (Dialyvite) tablet Take 1 (one) tablet by mouth every evening Active amLODIPine (Norvasc) 10 MG tablet Take 1 (one) tablet by mouth once daily Active tamsulosin (Flomax) 0.4 MG capsule Take 1 (one) capsule by mouth 2 times daily At the same time every day after a meal. Active carvedilol (Coreg) 25 MG tablet Take 1 (one) tablet by mouth 2 times daily with morning and evening meal Active omeprazole (PriLOSEC) 20 MG capsule Take 1 (one) capsule by mouth daily before breakfast Active apixaban (Eliquis) 5 MG tablet Take 1 (one) tablet by mouth 2 times daily Active semaglutide 1 MG/ML vial Inject 1 (one) mg subcutaneously every 7 days Active olopatadine (Pataday) 0.2 % ophthalmic solution Instill 1 (one) drop into both eyes once daily 12/18/2023 Active Other Take 0.5 Each by mouth once daily Febuxostat 80 mg Discontinue d(List Clean-Up) Active Problems Problem Noted Date Diagnosed Date Metabolic dysfunction-associ ated steatotic liver disease (MASLD) 11/21/2024 Overview (11/21/2024): 11/18/24 Fibroscan CAP 260, LSM 3.7 kPa jail (current) use of anticoagulants 2024 ESRD (end stage renal disease) 10/24/2024 Dependence on renal dialysis 10/24/2024 Pre-kidney transplant, listed 10/24/2024 Atrial fibrillation, unspecified type 10/24/2024 Hypertension, unspecified type 10/24/2024 Type 2 diabetes mellitus wit h other kidney complication, 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 jail insulin use 10/24/2024 Hypertension 10/19/2024 Type 2 diabetes mellitus 10/19/2024 Obesity, Class I, BMI 30-34.9 10/19/2024 ESRD on hemodialysis 10/19/2024 Acute vascular insufficiency of intestine 2024 Chest pain, unspecified 10/19/2024 Chronic atrial fibrillation 10/19/2024 End stage renal disease 10/19/2024 End-stage renal disease 10/19/2024 Epigastric pain 10/19/2024 History of adenomatous polyp of colon 10/19/2024 Inadequate sleep hygiene 10/19/2024 Low income 10/19/2024 Metabolic acidemia in , unspecified 10/19 Metabolic acidosis 10/19/2024 Muscle weakness (generalized) 10/19/2024 Sleep apnea, unspecified 10/19/2024 Obstructive sleep apnea (adult) (pediatric) 05/2025 Residual foreign body in soft tissue 10/19/2024 Secondary hyperparathyroidism of renal origin Sensorineural hearing loss, bilateral 10/19/2024 Skin eruption 10/19/2024 Subacute thyroiditis 10/19/2024 Superficial incisional surgical site infection 0 10/19/2024 Supraventricular tachycardia 10/19/2024 Hyperuricemia 11/23/2023 Pre-transplant evaluation for kidney transplant 07/06/2023 Overview (12/02/2024): Images from the original note were not included. Kemal Cali 1955 Referring Abnormal Psychology Teacher: Angela Augustin Listing Date: 12/30/2023 Dialysis Info: Type: HD T/R/Sat Time: 02/15/2024 AA EGFR wait time modification: 01/21/2019 Blood Type: B POS Body mass index is 33.23 kg/m . ALERTS: [facility] ALERTS: penile implant right pelvis. Kidney will need to go on the LEFT ALERTS: Pt will need a MRCP if liver enzymes rise, biliary dilation noted on CT ALERTS: Listed for Hep C kidneys Information Technology Coordinator: [facility] CKD r/t DM2 and HTN Past Medical History: Diagnosis Date A-fib (HCC) DOYLE (acute kidney injury) (HCC) CKD (chronic kidney disease), stage IV (HCC) Diabetes mellitus (HCC) 2004 oral meds for long time. Started insulin in 2017. [facility] DM (diabetes mellitus) (HCC) Esophageal reflux Gout HTN (hypertension) Hypercholesteremia Hypertension 2004 Neuropathy JONAH on CPAP Primary gout S/P ablation of atrial fibrillation 2018 Past Surgical History: Procedure Laterality Date Appendectomy 2005 Cardiac Catherization N/A 03/02/2024 N/A; Coronary Angiography Cholecystectomy, Open 1978 Laparotomy N/A 01/28/2020 N/A; LAPAROTOMY EXPLORATORY, LYSIS OF ADHESIONS, POSSIBLE BOWEL RESSECTION, POSSIBLE OSTOMY OTHER SURGERY Bilateral 01/30/2020 Bilateral; bilateral TAP (transverse abdominus plane) nerve block PENIS PROCEDURE/SURGERY 02/15/2016 Coloplast Titan Penile Implant and reservoir Splenectomy 2004 Social History Socioeconomic History Marital status: Spouse name: Not on file Number of children: Not on file Years of education: Not on file Highest education level: Not on file Occupational History Not on file Tobacco Use Smoking status: Former Packs/day: 1.00 Years: 23.00 Pack years: 23.00 Types: Cigarettes Quit date: 1997 Years since quittin.7 Smokeless tobacco: Never Vaping Use Vaping Use: Never used Substance and Sexual Activity Alcohol use: Never Drug use: Yes Types: Cocaine Comment: last used 30 years ago. Sexual activity: Not on file Other Topics Concern Not on file Social History Narrative Not on file Social Determinants of Health Financial Resource Strain: Not on file Food Insecurity: Not on file Transportation Needs: Not on file Stress: Not on file Housing Stability: Not on file Transplant Surgery Clinic Appt w/: Dr Alfaro Date: 08/22/2024 Assessment/Plan: Mr. Kemal Cali is a 69 year old M presenting for his annual kidney transplant evaluation. He has an unknown cause of ESRD on HD, potentially secondary to DM2 and hypertensive nephrosclerosis. He has an extensive surgical history, and due to the penile implant reservoir in the right pelvis, would require the kidney to be transplanted in his left pelvis. He endorses good energy/endurance and appetite. He continues to be medically stable for kidney transplant wait list. I discussed he risks and benefits of kidney transplant including the need for lifelong immunotherapy, the need for the patient to be compliant with the immunotherapy, the need for a lifelong relationship with a health care provider and the need to have labs checked frequently. We also talked about the risks of surgery including but not limited to the following: Anesthetic concerns including heart attack, stroke, or Need for endotracheal intubation and possibility of prolonged intubation Intraoperative and postoperative bleeding Postoperative hematoma or wound infection requiring return to OR Renal artery and vein thrombosis requiring return to OR and possible explantation Ureteric stricture or leak requiring interventional procedures and/or reoperation Delayed graft function Risk of primary nonfunction Increased risk of infection and malignancy remotely We discussed the possibility of receiving an HCV+ organ. We discussed the antiviral treatment and need for compliance to achieve SVR; the cure rate of 98% with DAA and the possibility of repeating a course if not cured; and the possibility of complications prior to and while undergoing treatment. These include headaches, nausea, cryoglobulinemia and DOYLE, and encephalitis as well as possible hepatitis-induced injury to the graft. At this time the patient is amenable. We discussed the possibility of receiving an increased risk organ. We discussed the risk factors that place kidneys in this category and the relative risk of transmission from an increased risk donor. We compared that risk with the risk of remaining on dialysis and the risk of hepatitis transmission on dialysis. At this time the patient is amenable. We discussed the possibility of receiving an organ with a KDPI of >85%. We discussed the lower mean survival for these organs and the increased rates of delayed graft function. At this time the patient is amenable. I believe Kemal Cali is a Good candidate for kidney transplant. At this time the patient needs the following prior to committee presentation: - follow up on results of Renal US - referral to GI/hepatology for Hep C evaluation prior to patient being eligible for hepatitis C positive organs - patient is on Eliquis; however, patient is s/p ablation and has normal sinus rhythm; will have patient see outpatient cardiology to determine if patient can discontinue Eliquis; patient will need to be off Eliquis for accepting DCD organs - patient has gained weight since appointment last year despite being on Ozempic; counseled patient on importance of weight control and I recommend a weight loss of 10-15 pounds prior to transplant - referral of patient to weight loss clinic with Dr. Evans - request abdominal surgical records from Dr. Veloz at [facility] in [place] with respect to the laparotomy, lysis of adhesions and mesh placement.. Patient with chronic illness - ESRD - that is a sustained threat to life. I have reviewed and interpreted his labs (cbc, cmp, hepatitis serologies, mmr serologies, pth, quantiferon) and his imaging (CT a/p) independently to arrive at the conclusions outlined in the note. I have additionally discussed his case with transplant nephrology. He is presenting for discussion of major elective surgery (kidney transplant) with identified risk factors of diabetes, obesity, hypertension and JONAH. Sandra, thanks for the referral. Ban Alfaro MD field associate Transplant & HPB Surgery Transplant Surgery Clinic Appt w/: Dr Chacko Date: 11/23/2023 Nephrology Clinic Appt w/: Dr. Kenyon Date: 11/23/2023 A/P: Assessments and Recommendations: - Renal function: CKD 5, Latest serum creatinine 6.7: Proteinuria: ; Albuminuria: - Anemia: Hemoglobin 12.1; Iron studies: WNL ; erythropoietic stimulating agents: No - Bone and mineral disease: Calcium: Low; phosphorus: Normal; 25-hydroxy Vitamin D: 43 ;intact PTH: Elevated 2/2 CKD 5 - Blood Pressure: Normal - Cardiovascular risk factors: Cholesterol: LDL 70, HDL 26 - Acid-Base balance: Normal Bicarb level - Hyperuricemia: Well controled on Febuxostst - Plans/Medication Changes: Suggest more aggressive mangement of secondary hyperparathyroidism. I consider the patient a good candidate for transplantation. The patient needs Renasight for a strong family H/O ESKD; Lt heart Cath and cardiology appointment at [facility] for A. Fib./Abelation, iRBBB and Lt Anterior Hemiblock on EKG. I had a long discussion with the patient in regards to the advantages of TXP, especially a Live donor TXP over dialysis in regards to life span and quality of life. I also discussed with the patient the risk/benefits of kidney transplantation, and of donation after brain , cardio-circulatory , and CDC high risk donors. I discussed with the patient the types of immunosuppressive medications that the patient will be taking life time and some of their side effects, and the consequences of non/poor compliance in taking those medications. He has a potential live donor, his younger brother. Flaco Kenyon MD Renal Attending Other Consults: Hepatology (Hep C eval): 11/18/2024 Fibroscan Date of Exam: 11/18/2024 Liver Stiffness: (LSM, kPa) median: 3.7 IQR/Median% (ideally < 30%): 11% CAP (controlled attenuation parameter): 260 Technical Difficulty: None Fibroscan interpretation: I have personally reviewed the Fibroscan report and associated tracings. The calculated Liver Stiffness Measurement (LSM, kPa) indicates that: The probability of advanced liver fibrosis is: low. The loss of ultrasound signal, (controlled attenuation parameter, CAP [dB/m]), indicates that the probability of hepatic steatosis is: moderate. Dell Muro MD Labs/data: Recent Labs Component Name 08/05/24 1341 03/02/24 1425 07/28/23 1129 02/01/20 1136 02/01/20 0229 BUN 44* 55* 63* - 25 CREATININE 8.04* 7.04* 6.68* - 2.6* NA 142 138 138 - 144 POTASSIUM 4.8* 4.2 5.2* - 3.7 CL 109* 105 106 - 109* CALCIUM 9.0 9.5 9.5 - 8.6 PROT 7.2 - 8.1 - 6.2 ALB 3.7 - 3.9 - 1.9* TBILI 0.4 - 0.4 - 0.5 ALKPHOS 97 - 120 - 123 ALT 27 - 18 - 30 AST 16 - 15 - 18 ANIONGAP 12 9 8 - 14 BCR 5* 8 9 - 10 OSMOLALITY 304* 300* 304* - 311* EGFR 7* 8* 8* - 30* - = values in this interval not displayed. 07/28/23 11:29 08/05/24 13:40 Hepatitis A Virus Antibody Total Positive ! Positive ! HBc Antibody Total Non-reactive Non-reactive Hepatitis B Surface Antibody Quantitative 144.0 (H) 99.4 (H) Hepatitis B Virus Surface Antibody Reactive ! Reactive ! Hepatitis B Virus Surface Antigen Non-reactive Non-reactive Hepatitis C Antibody Non-reactive Non-reactive 07/28/23 CT chest abd pelvis Liver: Within the limitations of a noncontrast examination, the liver is unremarkable. Impression: 1.No acute abnormality in the chest. 2.Mild, sparse emphysematous change in bilateral lungs. 3.Bilateral atrophic kidneys. 4.No significant calcifications of the external iliac arteries. 11/18/24 Fibroscan Labs and test results were reviewed with the patient. 50 minutes was spent with the patient >50% of which was spent in counseling and coordination of care. Impression/ Plan: 1. ESRD- of unknown etiology. Patient has been on hemodialysis for less than one year. 2. Contraindications to receiving a HCV positive kidney- none presently. Records reviewed back to 2017. He had a couple of episodes of elevated transaminases in 2018 and then again in 2019. Patient tells us during these times, he was actively admitted to the hospital for either issues with arrhythmias or infections. The most recent elevation was in January 2020, but during that admission his transaminases normalized spontaneously. He has no hx of medical noncompliance. His fibroscan done in the office today revealed low risk of advanced fibrosis and the presence of hepatic steatosis 3. During the clinic visit today with Kemal Cali, the following information and risks regarding the use of a Kidney organ from HCV+ donors was discussed: A positive test for hepatitis C in a donor means the donor has been exposed to hepatitis C virus. There is close to 100% risk of transmission of HCV from using organs from HCV positive donors with the likely development of the hepatitis C infection requiring treatment.This HCV infection can potentially cause chronic liver disease without treatment. Not everyone who is infected with the virus develops serious liver disease. There may be the rare possibility of severe HCV infection that may cause fibrosing cholestatic hepatitis (liver disease), which can be life threatening. There is a risk of sexual and blood transmission to a partner/household before successful treatment. There will be a need for antiviral therapy post- transplant to treat the HCV infection. There is a risk that hepatitis C virus will not respond to treatment and HCV can be a lifelong infection. Drug screens may be required by insurance prior to approval of treatment. There is a risk that insurance may deny payment of anti- viral treatment and/or that a copayment may be required. During treatment, careful follow up is required to monitor response of the hepatitis C therapy. The benefit of receiving a HCV positive donor organ as decreased waiting time on the transplant list was also discussed. Kemal Cali was present with Wendy Ordoñez PA-C and verbalized full understanding of all of the above information. The patient is agreeable to accepting organs from HCV positive donors and the need for treatment afterwards. The consent was signed in the office today. 4. Hepatic steatosis- patient advised to continue to lose wt with diet and exercise. Return to clinic: An appointment was scheduled for him to see us in followup in PRN. Wendy Ordoñez PA-C Physician Scheduling Agent in Internal Medicine Sampson Holloway MD Professor of Internal Medicine No orders of the defined types were placed in this encounter. Cardiology: 10/17/2024 Assessment 1. Pre-kidney transplant, listed 2. 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) 3. ESRD (end stage renal disease) (HCC) 4. Hypertension, unspecified type 5. Type 2 diabetes mellitus with other kidney complication, 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 jail insulin use (HCC) 6. Atrial fibrillation, unspecified type (HCC) Plan: Patient Instructions 69 year old male with a history of atrial fibrillation s/p ablation on Eliquis, hypertension, diabetes, hypercholesterolemia, JONAH, ESRD of unknown cause on dialysis, former smoker who is here for pre-kidney transplant evaluation. Patient denies having any chest pain, shortness of breath, palpitation, dizziness or syncope. Patient denies any other major cardiovascular symptoms. # Pre renal transplant - Coronary angiogram was performed by Dr. White 03/02/2024 which showed Mild non obstructive coronary artery disease. - I personally interpreted echo from 07/2023 showed, normal EF without any valvular issues. [ ] no further cardiac work up needed # Atrial fibrillation s/p ablation in 2019 - High Chadvasc score (DM, age, HTN,) - Transplant team patient off on eliquis vs on coumadin, as patient do not have living donor and would need kidney transplant in 6 hour notice, makes it difficult to reverse the anti-coagulation. [ ] will switch eliquis to coumadin, clinic team will approach the patient and adjust the dose based on INR target of 2-3. [ ] start coumadin 5 mg daily, INR check at the clinic [ ] c/w Coreg 25 mg BID # HLD - Last Ldl was 05/2023 and was 80 [ ] continue with atorvastatin 80 mg qhs # Htn: - usually controlled as per patient [ ] c/w current regimen # DM: - Last A1c was 07/2024 was 5.5 [ ] c/w current regimen and adjust as per PCP 1 year follow up. All questions/concerns were answered to the patient's satisfaction and we are all in agreement with this plan proposed above understanding all the risks and benefits. I spent 40 minutes today. This total amount of time was spent including preparation for the patient's appointment, reviewing and interpreting the medical records/chart review, laboratory data, and imaging data as well. Significant proportion of the time was also spent in [id number] interaction with the patient as well as formulating a plan for management. Thank you for allowing us to participate in the care of your patient and please do not hesitate to reach out to us if any questions or concerns. Robert Roper MD MPH Cardiology Dr Khanna: 01/19/2024 Attestation signed by Jennifer Khanna MD at 01/20/2024 10:05 AM Patient seen and examined with Fellow. Please see note for further details. I confirm history, exam, assessment and plan. In addition I note: Interval history: 68 year old man with history of paroxysmal atrial fibrillation, hypertension, hyperlipidemia, end stage renal disease on hemodialysis now here for pre-kidney transplant evaluation Exam: Alert NAD CV: RRR nml S1 S2 no m/r/g Assessment/Plan: Pre-transplant evaluation: Given the length of time he has diabetes, our transplant team with require cardiac catheterization to evaluate for CAD prior to listing for kidney transplant. 01/20/2024 10:04 AM Jennifer Khanna MD ASSESSMENT & PLAN #Pre-kidney transplant evaluation #CAD #Hypertension #Hyperlipidemia Kemal Cali is a 68 year old year old male with a past medical history of atrial fibrillation s/p ablation on Eliquis, hypertension, diabetes, hypercholesterolemia, JONAH, ESRD of unknown cause on dialysis who is here for pre-kidney transplant evaluation. - Case request for [facility] placed - Follow up after [facility] completed Please note, recommendations are not final until attested/co-signed by the attending physician. Thank you for your consultation, please do not hesitate to contact us with any questions or concerns. Daniel Lay MD Cardiovascular Diseases Fellow PGY-4 [facility] Cardiology: 12/12/2022 (consult from ED visit) [place] Cardiology: 02/12/2022 [place] Cardiology: 03/19/2021 Pertinent Previous Committee Presentations: 11/24/2024 Committee Review Decision: Remain Active Prior Transplants: N/A EPTS: 88 at 11/24/2024 1:21 PM Calculated from: Age: 69 years Has Diabetes: Yes Prior solid organ transplant: No Dialysis: 283 days Committee Discussion Details: Pt presented for Hep C kidneys. Reviewed past medical and surgical history. Reviewed last txp surgery clinic note. Reviewed Hepatology evaluation: -Fibroscan Liver stiffness 3.7, CAP 260, low risk of fibrosis, moderate risk of hepatic steatosis -reviewed labs; LFTs WNL, pt has immunity to Hep A and Hep B -no liver findings on CT -reviewed Wendy Saucedo's note - no current contraindication for txp Per team, OK to list for Hep C kidneys. (Consent scanned to media 11/23/24) 06/23/2024 Committee Review Decision: Make Active Prior Transplants: N/A EPTS: 49 at 06/23/2024 12:35 PM Calculated from: Age: 68 years Has Diabetes: No Prior solid organ transplant: No Dialysis: 129 days Committee Discussion Details: Pt presented for activation on txp waitlist. Reviewed past medical and surgical history. Reviewed txp clinic notes. Pt inactive d/t Eliquis use but he now has Living Donor. Reviewed cardiology notes from Dr Khanna and [facility]. Pt on Eliquis d/t A-Fib; ablation completed. LHC completed 03/03/24 - normal coronaries. Reviewed txp eval test results. Labs and abdominal imaging to be repeated July. Renasight positive APOL1 gene. Will repeat MRCP if liver enzymes rise. Screenings UTD. No concerns from SW, RD and FC. Post support to be reconfirmed if is living donor. Per team, OK to make active on the wait list. Alert present for Eliquis use. Shankar to be notified for Living Donor. 12/10/2023: Committee Review Decision: Approved EPTS: 50 at 12/10/2023 8:20 PM Calculated from: Age: 68 years Has Diabetes: No Prior solid organ transplant: No On dialysis: No Induction Method: Immunosuppression Induction Method/Plan: Antithymocyte globulin (rabbit) (Thymoglobulin) 3 mg/kg Committee Discussion Details: Pt brought to [facility] to discuss possible listing. -Reviewed PMH and eval test results -Alert placed. Pt has a penile implant in the right pelvis. Kidney will need to be placed on the left. -HBSAB positive. Dates of vaccinations documented. -Renasight test requested in clinic. Pt completed, results pending at time of meeting. -PMH of AFib with ablation. EKG NSR, incomplete right bundle branch block. Pt has a pending appt with [facility] cardiology on 01/19/2024 Pt remains on Eliquis at this time. Will need to be switched to coumadin prior to listing unless approved living donor. Pt will also need to complete LHC prior to transplant. -Reviewed results of EUS and ERCP completed in 2019 due to biliary dilation, fever, and elevated liver enzymes. Reviewed liver enzyme trend, currently normal. Reviewed CT images. Per [facility] coordinator, pt did not have a MRCP completed. Will place red alert to complete if liver enzymes rise. -SW eval note pending. Per Pari FALCON, post support will still need to be verified. -Enid PATRICIA voiced no concern. -Kenia ROBERT requests LMN for listing. Per team, ok to list INACTIVE pending LMN and post support verification. For active listing, pt will need to complete cardiology eval and will need a LHC with start of dialysis or approved LD. Will also need to be switched from Eliquis to coumadin if no LD. Labs: 08/05/2024 PTH: 530.2 A1c: 5.5 Glucose: 71 GFR: 7 PSA: 1.1 Serologies: +HepAsAb, +HepBsAb, all others negative CMV Igg: positive EBV Igg: positive Varicella: immune MMR:+++ Toxo:<3.0 Strongyloides: 0.5 Albumin: 3.7 Tox Screen:negative Quant gold: negative PRA: Class 1 Class 2 = 0/0 Vitamin D 29.6 Hgb 10 Latest Reference Range & Units 08/05/24 13:40 Total Cholesterol (NMR) <200 mg/dL 148 Triglycerides <150 mg/dL 184 (H) HDL >40 mg/dL 31 (L) LDL Calculated <100 mg/dL 80 Reviewed Hepatitis vaccination: Hepatitis A positive Hepatitis B positive due to vaccine Recent Labs Component Name 07/28/23 1129 HAVAB Positive* HBVSAB 144.0* HEPBCAB Non-reactive HEPBSAG Non-reactive Kidney Biopsy: Na Renasight: EK07/28/2023 NORMAL SINUS RHYTHM LEFT AXIS DEVIATION INCOMPLETE RIGHT BUNDLE BRANCH BLOCK ABNORMAL ECG WHEN COMPARED WITH ECG OF 02-FEB-2020 05:41, SINUS RHYTHM HAS REPLACED ATRIAL FIBRILLATION VENT. RATE HAS DECREASED BY [address] NO LONGER DEPRESSED IN INFERIOR LEADS ST NO LONGER DEPRESSED IN ANTEROLATERAL LEADS Echo: 07/28/2023 Interpretation Summary Left Ventricle: Left ventricle size is normal. Normal wall thickness. Hyperdynamic systolic function with a visually estimated EF of 70 - 75%. Normal wall motion. Normal diastolic function. Right Ventricle: Right ventricle size is upper limits of normal. Normal systolic function. Tricuspid Valve: No regurgitation. Unable to estimate the pulmonary artery systolic pressure due to lack of envelope. No significant valvular abnormalities IVC/SVC: IVC diameter is less than or equal to 21 mm and decreases greater than 50% during inspiration; therefore the estimated right atrial pressure is normal (~3 mmHg). Pericardium: No pericardial effusion. Myocardial Findings Left Ventricle Left ventricle size is normal. Normal wall thickness. Hyperdynamic systolic function with a visually estimated EF of 70 - 75%. Normal wall motion. Normal diastolic function. Right Ventricle Right ventricle size is upper limits of normal. Normal systolic function. Left Atrium Left atrium size is normal. Left atrium volume index is 29.4 mL/m2. Right Atrium Right atrium size is normal. IVC/SVC IVC diameter is less than or equal to 21 mm and decreases greater than 50% during inspiration; therefore the estimated right atrial pressure is normal (~3 mmHg). Mitral Valve Valve structure is normal. No restricted motion. Trace regurgitation. No stenosis. Tricuspid Valve Valve structure is normal. No restricted motion. No regurgitation. Unable to estimate the pulmonary artery systolic pressure due to lack of envelope. No stenosis. Aortic Valve Valve structure is trileaflet. No restricted motion. No regurgitation. No stenosis. Pulmonic Valve Valve structure is normal. No restricted motion. No regurgitation. No stenosis. Aorta Normal sized sinus of Valsalva (aortic root) and ascending aorta. Pericardium No pericardial effusion. [facility]: 03/03/2024 Conclusion The coronary vessels are normal. LVEDP: 7 mmHg. Recommendations - Resume previous medications. - The patient is low risk for surgery. Recommend proceeding with surgery. Coronary Findings Diagnostic Dominance: Right Left Main The vessel was visualized by selective angiography and is moderate in size. The vessel exhibits minimal luminal irregularities. Left Anterior Descending The vessel was visualized by selective angiography and is moderate in size. The vessel exhibits minimal luminal irregularities. Left Circumflex The vessel was visualized by selective angiography, is moderate in size and is angiographically normal. Right Coronary Artery The vessel was visualized by selective angiography, is moderate in size and is angiographically normal. Intervention No interventions have been documented. Kristel White MD Light, Jennifer K, RN; Cesilia Burrell RN; Augustin Chacko MD; Jennifer Khanna MD; Daniel Lay MD Dear Doctors: I performed cardiac cath for our mutual patient Kemal Cali who presented for transplant evaluation. Cath showed normal coronary arteries. I suggest proceeding with remainder of transplant evaluation. If you have any questions, please feel free to call or text me on my cell phone [phone]. I appreciate the opportunity to participate in the care of your patient and look forward to being of service in the future as well. Sincerely, Kristel White MD, PhD, [facility] Senior Air Directorauxiliary power equipment operator CXR: 08/05/2024 Findings/Impression: . No focal consolidation, pleural effusion, or pneumothorax is identified. The cardiac silhouette and mediastinal contours are normal. Renal US: 08/22/2024 FINDINGS: Left kidney: 8.7 x 3.5 x 3.1 cm, 49 mL. Right kidney: 9.2 x 4.0 x 3.8 cm, 73 mL. The renal parenchymal echogenicity is increased, consistent with chronic renal parenchymal disease. There is no evidence of a solid renal mass, renal calculi, or hydronephrosis. Left superior pole 1.0 x 0.5 cm lobulation within the cortex. Right superior pole 1.0 x 1.0 x 1.1 cm simple cyst. Blood flow is seen within the renal arteries and veins. The bladder is distended and appears normal. Small volume pelvic free fluid. IMPRESSION: 1.Increased renal echogenicity is consistent with chronic parenchymal disease. 2.No evidence of nephrolithiasis, hydronephrosis, or solid renal mass. CT chest/abd/pelvis non-contrast: 07/28/2023 Findings: Evaluation of visceral and vascular structures is degraded due to lack of intravenous contrast administration. Chest: Lower Neck and Axillae: Normal. No axillary lymphadenopathy. Lungs: Mild and sparse centrilobular and paraseptal emphysema is present. No suspicious pulmonary nodules are identified. No pleural fluid or pneumothorax is present. Heart and Pericardium: The cardiac chambers are normal in size. No pericardial fluid or thickening is present. Mediastinum and Aundrea: No enlarged lymph nodes are present. Thoracic Vasculature: No vascular abnormality is present. Abdomen/pelvis: Liver: Within the limitations of a noncontrast examination, the liver is unremarkable. Gallbladder and Bile Ducts: The gallbladder is absent. Spleen: Normal. Pancreas: Normal. Adrenals: Normal. Kidneys: Bilateral kidneys are atrophic. There are multiple renal cysts including hemorrhagic cysts. Gastrointestinal: The stomach and visualized loops of large and small bowel are unremarkable. There are changes of bowel resection and anastomosis. Mesentery/Peritoneum/Retroperitoneum: Normal. Bladder: Normal. Reproductive Organs: The prostate is normal. A penile implant is noted, its pump is located right pelvis. Abdominal Vasculature: Atherosclerotic calcification of the aorta and its branch vessels. No significant calcifications of the external iliac arteries. Bones: Bone windows demonstrate no suspicious lytic or blastic lesions. The visible osseous structures are intact. Soft tissues: Normal. Impression: 1.No acute abnormality in the chest. 2.Mild, sparse emphysematous change in bilateral lungs. 3.Bilateral atrophic kidneys. 4.No significant calcifications of the external iliac arteries. PFT: 02/27/2021 LE arterial doppler: 08/05/2024 Quant gold: 07/28/2023 Negative Colonoscopy: 08/14/2020 03/31/2016 Elevated LFTs (AP 289, AST 98, ALT 185, NL Mg). CBD to 2cm (increased from 4mm on US 09/27/18). Infectious w/u negative. INR yesterday 1.8. Held since Thursday. Plan for EUS and ERCP. ERCP: 10/20/2018 Indications: Biliary dilation on Computed Tomogram Scan; Fever, Leukocytosis, Elevated AST/ALT/AlkPhos, Dilated CBD on CT with suggestion of sludge on EUS. Findings: The deliverer outside film was normal. The esophagus was successfully intubated under direct vision. The scope was advanced to a the major papilla in the descending duodenum without detailed examination of the pharynx, larynx and associated structures, and upper GI tract. The upper GI tract was grossly normal. The major papilla appeared to be prominent/bulging. Initial attempts at cannulation with a 0.025 inch x 450 cm straight Visiglide wire demonstrated the pancreatic duct. A limited amount of contrast was injected to confirm intraductal wire placement and to reduce the risk of periprocedural pancreatitis. Limited pancreatogram demonstrated a normal 2mm pancreatic duct in the head and proximal body of the pancreas. A 5Fr x 7cm plastic Pringle stent was placed into the pancreatic duct to reduce the risk of pancreatitis, especially given the inability to provide rectal indomethacin in the setting of renal failure, and to facilitate biliary cannulation. Subsequently, the wire was passed into the biliary tree. The short-nosed traction sphincterotome was passed over the guidewire and the bile duct was then deeply cannulated. Contrast was injected. I personally interpreted the bile duct and pancreatic duct images. There was brisk flow of contrast through the ducts. Image quality was adequate. Contrast extended to the entire biliary tree. Contrast extended to the proximal pancreatic duct. Cholangiogram was obtained and demonstrated a severely dilated CBD and CHD measuring ~18mm in diameter. The visualized intrahepatic ducts were normal. The patient is post a cholecystectomy. The CBD was noted to taper normally to the ampulla without obvious stricture. A 6 mm biliary sphincterotomy was made with a monofilament traction (standard) sphincterotome using ERBE electrocautery. There was no post-sphincterotomy bleeding. Multiple balloon sweeps were completed and a small amount of sludge was removed. The 11.5mm balloon passed through the sphincterotomy without resistance and contrast and bile readily drained. The endoscope was removed from the patient. Impression: - The major papilla appeared to be prominent/bulging. - Incidental pancreatic duct cannulation. Limited pancreatogram demonstrated a normal 2mm pancreatic duct in the head and proximal body of the pancreas. A 5Fr x 7cm plastic Pringle stent was placed into the pancreatic duct to reduce the risk of pancreatitis, especially given the inability to provide rectal indomethacin in the setting of renal failure, and to facilitate biliary cannulation. - Cholangiogram was obtained and demonstrated a severely dilated CBD and CHD measuring ~18mm in diameter. The visualized intrahepatic ducts were normal. The patient is post a cholecystectomy. The CBD was noted to taper normally to the ampulla without obvious stricture. - Successful biliary sphincterotomy. - Successful balloon sweep with removal of a small amount of sludge. - The 11.5mm balloon passed through the sphincterotomy without resistance and contrast and bile readily drained. Recommendation: - Observe patient's clinical course following today's ERCP with therapeutic intervention. - Watch for pancreatitis, bleeding, perforation, and cholangitis. - If safe and appropriate from a cardiovascular perspective, would hold coumadin for 24 hours prior to resuming. - Perform a flat plate abdominal x-ray in 10 days to evaluate for spontaneous pancreatic duct stent migration. If stent is still present perform upper endoscopy to remove the stent, this can be done at the [place]. - Please avoid NSAIDs (i.e Motrin, Aleve, Ibuprofen, Advil, Naproxen, etc) for the next 10-14 days. If you are taking Aspirin 81mg (baby aspirin) for clear cardiovascular or neurologic indications, you should continue this. - NPO for 4 hours, then advance to clear liquid diet if patient stable and ok with primary team. - Aggressive IV hydration for the next 12 hours to decrease risk of pancreatitis. - Monitor LFTs and fever curve. Consider MRI/MRCP if LFTs remain persistently elevated. - Return [facility] to [facility] for [facility] care - Discussed results with Dr. Chappell. Please followup with him at the [place] - Return to primary care physician as previously scheduled. - In the unusual situation that you develop abdominal pain, bleeding or other significant problems in the days following this procedure please call my office at [phone] to speak to my nurses. After hours and evenings please call [phone] and speak to the GI fellow business continuity planning director. Please tell them that Dr. Freeman did your procedure and that your were instructed to have the fellow call me or the physician covering for me to discuss the management of your condition. If you have an urgent problem, please go to the nearest emergency room and have the ER doctor call my office during the day or the GI Fellow after hours and weekends to arrange admission or transfer to our facility. Attending Participation: I personally performed the entire procedure. Electronically Signed By: Gregorio Freeman M.D. EUS: 10/20/2018 Findings: Endosonographic Finding : The esophagus, stomach and duodenum were visualized endosonographically. There was severe dilation of the common bile duct and common hepatic duct to 15mm starting at the hilum and tapering to the ampulla. No stricture or mass lesion was appreciated. The patient is post a cholecystectomy. There were no stones appreciated in the bile duct, however there was some possible sludge noted in the distal most aspect of the bile duct. There was no sign of significant endosonographic abnormality in the ampulla. There were diffuse, non-specific, pancreatic parenchymal abnormalities noted in the entire pancreas consisting of hyperechoic and hypoechoic foci. The pancreatic duct was non-dilated at 1-2mm and was noted to taper normally at the ampulla. The region of the celiac plexus and celiac ganglia was visualized and showed no sign of significant endosonographic abnormality. The vascular anatomy of the region was normal. Impression: - There was severe dilation of the common bile duct and common hepatic duct to 15mm starting at the hilum and tapering to the ampulla. No stricture or mass lesion was appreciated. The patient is post a cholecystectomy. There were no stones appreciated in the bile duct, however there was some possible sludge noted in the distal most aspect of the bile duct. - There was no sign of significant pathology in the ampulla. - There were diffuse, non-specific, pancreatic parenchymal abnormalities noted in the entire pancreas consisting of hyperechoic and hypoechoic foci. The pancreatic duct was non-dilated at 1-2mm and was noted to taper normally at the ampulla. Recommendation: - Observe patient's clinical course following today's EUS. - Given fever, leukocytosis, elevated LFTs/AlkPhos, and dilated CBD with possible sludge, will proceed with EUS. - Further recommendations per ERCP report. - Followup with Dr. Chappell. - Return to primary care physician as previously scheduled. - In the unusual situation that you develop abdominal pain, bleeding or other significant problems in the days following this procedure please call my office at [phone] to speak to my nurses. After hours and evenings please call [phone] and speak to the GI fellow business continuity planning director. Please tell them that Dr. Freeman did your procedure and that your were instructed to have the fellow call me or the physician covering for me to discuss the management of your condition. If you have an urgent problem, please go to the nearest emergency room and have the ER doctor call my office during the day or the GI Fellow after hours and weekends to arrange admission or transfer to our facility. Attending Participation: I personally performed the entire procedure. Electronically Signed By: Gregorio Freeman M.D. Gregorio Freeman M.D. 10/20/2018 10:43:26 AM [facility]/Dental: 07/28/2023 FINDINGS: Multiple teeth are missing. There are multiple dental restorations. No dental caries are identified. There is no periodontal disease or periapical abscess. The mandible and temporomandibular joints are intact. IMPRESSION: No dental caries or periapical abscess. SW: 11/23/2024 Clinical Social Work Impression: It is the impression of this social work faculty member that Kemal Cali has several positive factors for Kidney transplant candidacy from a psychosocial perspective. Patient appears to have appropriate knowledge of illness. Patient has sufficient insurance coverage and stable financial situation for post transplant needs. No concerns regarding substance abuse, legal issues, or mental health needs. Patient has adequate support system and appropriate discharge plan. Send financial assistance resources to email [email or web address] to [address] [place] [address] Plan: television maintenance worker to provide supportive services as needed. Patient remains a reasonable candidate for transplant from a psychosocial perspective. Psychiatric Consult Recommended: No Transplant Quitline Counselor: Cesilia Rivera LMSW Abdominal Transplant Quitline Counselor [phone] 2023 Caregivers: Primary is brother Nahum, Pt states He has a lot of options re:secondary. Took the [employer] forms to complete and return Call from pts ex- Lynnette who confirmed as a willing caregiver. She will return the forms matt. Answered questions about living donation and she requested the website to be sent to her email at [email or web address] : 11/23/2024 Transplant Nutrition Evaluation BMI: Body mass index is 32.2 kg/m . BMI Range: Obese Class 1, Pt is considered to be a good candidate for a Kidney Transplant from a Nutrition standpoint. Keep wt off that pt has lost. Discussed with patient Post-Transplant Diet: It is recommended to follow a Low Sodium, Limited Added Sugar, and Food Safety diet, as well as avoiding foods/beverages that may interfere with Transplant meds. Pt instructed that it is possible to develop DB and have high K+ post transplant. Went through Dietary Recommendations post-transplant checklist with pt. Pt instructed to continue to work with Renal RD at [facility] on diet and to be compliant. Weight Assessment: Ht: 69.5 Wt: 220 lbs 14.4 oz dry weight Wt at clinic: 230.4 lbs - pt weighed with heavy clothes on - reports still makes urine, no fluid restriction, reports that he follows low Na+ restriction - little eating out, low processed food eating Waist 2023: 44 2/3 Monitoring: Weight Diet Compliance Re-Evaluation: Annual f/u if listed or per Transplant Team Referral Enid Sandoval, HARSHAD/LD Items Still Pending: Intestinal adhesions with complete obstruction 0 01/28/2020 Abdominal pain, generalized 01/28/2020 Dilation of biliary tract 10/19/2018 Overview (10/19/2024): Added automatically from request for surgery [id number] Resolved Problems Problem Noted Date Diagnosed Date Resolved Date CKD (chronic kidney disease) stage 5, GFR less than 15 ml/min 10/19/2024 Encounters Date Type Department Care Team Description 11/24/2024 Telephone [facility] TRANSPLANT [address] [place] [phone] Antonette Hill, RN Kidney Transplant Evaluation 11/22/2024 Telephone [facility] TRANSPLANT [address] [place] [phone] Maral Valdivia CPC Kidney Transplant Evaluation 11/18/2024 11:00 AM [employer] Procedure visit [facility] - GI [address] [place] [phone] Dell Mcmillan MD NAFLD (nonalcoholic fatty liver disease) 11/18/2024 11:00 AM [employer] Office Visit [facility] - [address] [phone] Wendy Ordoñez PA-C Pre-transplant evaluation for kidney transplant (Primary Dx); ESRD (end stage renal disease) (HCC) 11/18/2024 Travel 11/17/2024 Telephone [facility] TRANSPLANT [address] [place] [phone] Antonette Hill RN Kidney Transplant Evaluation 10/25/2024 Orders Only [facility] Anticoagulation - Clinical Pharmacy [address] [place] [phone] Radha Roper MD jail (current) use of anticoagulants ; Atrial fibrillation, unspecified type (HCC) 10/19/2024 2:30 PM [employer] Office Visit [facility] - GI [address] [place] [phone] Ravi Evans III, MD Obesity, Class I, BMI 30-34.9 (Primary Dx); Type 2 diabetes mellitus with other specified complication, 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); Metabolic syndrome; Neuropathy 10/19/2024 Travel 10/17/2024 10:20 AM [employer] Video Visit [facility] - Cardiology [address] [facility] [address] [place] [phone] Ban Alfaro MD Arora, Shilpkumar, MD Pre-kidney transplant, listed ; 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); ESRD (end stage renal disease) (HCC); Hypertension, unspecified type; Type 2 diabetes mellitus with other kidney complication, 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 jail insulin use (HCC); Atrial fibrillation, unspecified type ([facility]) 10/17/2024 Telephone [facility] TRANSPLANT [address] [place] [phone] Maral Valdivia CPC Kidney Transplant Evaluation from Last 3 Months Family History Medical History Relation Name Comments Leukemia Father CAD (Coronary Artery Disease) Mother Relation Name Status Comments Father Mother Social History Tobacco Use Types Packs/Day Years Used Date Smoking Tobacco: Former Cigarettes 1 03 11 975 - 1997 Smokeless Tobacco: Never Tobacco Cessation:Counseling Given: Not Answered Alcohol Use Standard Drinks/Week Comments Not Currently 0 (1 standard drink = 0.6 oz pur e alcohol) last ETOH in 1988 AUDIT-C Answer Date Recorded Q1: How often do you have a drink containing alc ohol? Never 01/28/2020 Average Number of Drinks Not on file 020 Frequency of Binge Drinking Not on file 01/10 Sex and Gender Information Value Date Recorded Sex Assigned at Not on file Gender Identity Not on file Sexual Orientation Not on file Last Filed Vital Signs Vital Sign Reading Time Taken Comments Blood Pressure 127/55 11/18/2024 10:39 AM [employer] Pulse 57 11/18/2024 10:39 AM [employer] Temperature 36.5 C (97.7 F) 11/18/2024 10:39 AM [employer] Respiratory Rate 20 08/22/2024 9:01 AM [employer] Oxygen Saturation 100% 11/18/2024 10: 39 AM [employer] Inhaled Oxygen Concentration - - Weight 100.2 kg (220 lb 14.4 oz) 2024 10:00 AM [employer] Stated Height 176.5 cm (5' 9.5 ) 11/23/2024 10 :00 AM [employer] Body Mass Index 32.15 11/23/2024 10:00 AM [employer] Plan of Treatment Upcoming Encounters Date Type Department Care Team (Late st Contact Info) Description 02/16/2025 1:30 PM CDT Office Visit [facility] - GI [address] [facility] [place] [phone] Ravi Evans III, MD [address] [facility] [address] [place] [phone] 10/16/2025 10:20 AM [employer] Office Visit [facility] - Cardiology [address] [facility] [address] [place] [phone] Radha Roper MD [address] [facility] DIV OF CARDIOLOGY [address] [place] [address] Health Maintenance Due Date Last Done Comments COLOGUARD (AGES 45-75) - COLON CA SCREENING 1954 COLON MONITORING 1954 COLONOSCOPY - COLON CA SCREENING 1954 CT COLONOGRAPHY - COLON CA SCREENING 1954 Colorectal Cancer Screening 1954 FIT - COLON CA SCREENING 1954 FLEX SIG - COLON CA SCREENING 1954 HIB VACCINE (1 of 1 - Risk 1-dose series) 10/31/1955 MENINGOCOCCAL VACCINE (1 - Risk 2-dose series) 1956 MENINGOCOCCAL (Group B) VACCINE (1 of 5 - Increased Risk) 1964 DTAP/TDAP/TD VACCINES (1 - Tdap) 1973 PNEUMOCOCCAL VACCINE 50+ (1 of 2 - PCV) 1973 HEPATITIS B VACCINE (1 of 3 - Risk Dialysis 4-dose series) 1974 ZOSTER VACCINE (1 of 2) 2004 Respiratory Syncytial Virus (RSV) Vaccine Pt: or over 60 yrs (1 - Risk 60-74 years 1-dose series) 2014 AAA SCREENING 2019 COVID-19 VACCINE ( season) 2024 06/30/2022, 02/05/2022, 08/12/2021, Additional history exists INFLUENZA VACCINE (#1) 2024 , 07/21/2019, 07/13/2019, Additional history exists DEPRESSION SCREENING 10/12/2024 DIABETES RETINOPATHY SCREENING 10/19/2024 DIABETES-FOOT EXAM WITH MONOFILAMENT 10/19/2024 DIABETES-HGB A1C 02/03/2025 08/05/2024, , 01/30/2020 HEPATITIS C SCREENING Completed 08/05/2024, 023 HPV VACCINE Aged Out No longer eligi ble based on patient's age to complete this topic Goals Goal Patient Goal Type Associated Problems Recent Progress Patient-Stated? Author Blood Pressure < 140/90 Blood Pressure 127/55(2024 10:39 AM [employer] [facility]) Antonette Zheng jet inspector Management General On track( 025 10:37 AM [employer]) No Victor Hugo Vergara, RICHRAD Note: Expected end date: ongoing Interventions: Take all medications as prescribed Let your doctor know right away about any changes in your medications Make sure to request a refill of your medication at least one week prior to your last dose Medical Devices Implanted Type Area Dog And Cat Food Cook Device Identifier Shelf Expiration Date Model / Serial / Lot Prosthesis-07/12 Implanted:07/25 (Quantity not on file) Prosthesis Penile Prosthesis Description:Coloplast Titan 22 Penile implant and reservoir Procedures Procedure Name Priority Date/Time Associated Diagnosis Comments [place] LIVER ELASTOGRAPHY Routine 11/18/2024 10:22 AM [employer] [facility] Pre-kidney transplant, 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) ESRD (end stage renal disease) (HCC) Hypertension, unspecified type Type 2 diabetes mellitus with other kidney complication, 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) HEPATITIS C ANTIBODY Routine 08/05/2024 1:40 PM CDT Pre-kidney transplant, listed ESRD (end stage renal disease) (HCC) 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) Hypertension, unspecified type Atrial fibrillation, unspecified type (HCC) Neuropathy JONAH on CPAP HEMOGLOBIN A1C Routine 08/05/2024 1:40 PM CDT Pre-kidney transplant, listed ESRD (end stage renal disease) (HCC) 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 Procedure explained. Date of Exam: 11/18/2024 Liver Stiffness: (LSM, kPa) median: 3.7 IQR/Median% (ideally < 30%): 11% CAP (controlled attenuation parameter): 260 Technical Difficulty: None Ordering Provider: Ban Alfaro MD Phone Fax Fibroscan interpretation: I have personally reviewed the Fibroscan report and associated tracings. The calculated Liver Stiffness Measurement (LSM, kPa) indicates that: The probability of advanced liver fibrosis is: low. The loss of ultrasound signal, (controlled attenuation parameter, CAP [dB/m]), indicates that the probability of hepatic steatosis is: moderate. Dell Muro MD The following criteria are used to indicate the probability of advanced (stage 3-4) fibrosis: < 7.0 kPa: low 7.0-8.9 kPa: low to moderate 9.0-14.9 kPa: moderate 15-20 kPa: high > 20 kPa: very high Liver stiffness > 12 kPa is associated with an increased risk of cirrhosis-related complications over the next 3-5 years (Whit, 2022). Liver stiffness > 20 kPa is also associated with a high probability of complications of portal hypertension including varices and ascites. Liver stiffness > 50 kPa is associated with a high risk of variceal bleeding. These interpretations are based on the following published data: Whit J, Naomi bhatti H, Ekdavin M, Michael C, West M, Cure S, Ampnahido J, Aleja P, Damien L, Delbert CM, Delisa S, S cha Y, Dayton E, Mitra A, Jose Angel M, Devan J, Shahram A and Jared M. Non-invasive tests accurately stratify patients with NAFLD based on their risk of liver-related events. J Hepatol (2021) 76: 3594-0100. Kelly PJ, Luis M, Aliza M, et al. Accuracy of FibroScan controlled attenuation parameter and liver stiffness measurement in assessing steatosis and fibrosis in patients with nonalcoholic fatty liver disease. Gastroenterology 2019;156:6916-0918. Jose MS, Kev R, Van Natta ML, et al. Vibration-controlled transient elastography to assess fibrosis and steatosis in patients with nonalcoholic fatty liver disease. Clin Gastroenterol Hepatol 2019;17:156-163. Note that scores have been developed that incorporate the Fibroscan liver stiffness measurement from large cohorts of patients with liver biopsies to further refine the ability of Fibroscan to identify patients with MASH and advanced fibrosis. These include the FAST (Fibroscan-AST) score (Ashley, 2021) and the Agile3+ and Agile4 scores (Sheldon, 2022; Cindy, 202). Ashley TA, Van Natta ML, Bella M, Rojelio A, et al. Validation of the accuracy of the FAST score for detecting patients with at-risk nonalcoholic steatohepatitis (MARTIN) in a [place] cohort and comparison to other non-invasive algorithms. PLoS ONE (2021) 17: i2570668. Sheldon AJ, James J, Younyolanda ZM, et al. Enhanced diagnosis of advanced fibrosis and cirrhosis in individuals with NAFLD using FibroScan-based Agile scores. J Hepatol (2022) 78: 247-259. Cindy et al. Vibration-controlled transient elastography scores to predict liver-related events in steatotic liver disease. OLIVIA (2023) 331: 5831-0284 Fibroscan LSM can also be used with laboratory parameters without formulas to assess prognosis. According to the Baveno-VII criteria (Dave, 202), Fibroscan LSM <=15 kPa plus a platelet count of >=161k830/L rules out clinically significant portal hypertension (sensitivity and negative predictive value >90%) in patients with compensated advanced chronic liver disease. Valerio Prasad J, Heike G, Talita T, Hal Valenzuela on behalf of the [facility] Faculty. [facility]--Renewing consensus in portal hypertension. J Hepatol (2021) 76: 959-974 Assessing the likelihood of advanced fibrosis in patients with intermediate liver stiffness measurement (LSM) by Fibroscan (e.g., 8-15 kPa) can be improved by also calculating the FIB-4 score (Tosine et al. Hepatology Communications 2019;3:3679-6083) or NAFLD Fibrosis score (Santa et al. Clinical Gastroenterology and Hepatology 2019;17:2959-9811 using routine clinical data. Notes: 1. Fibroscan cannot reliably identify earlier stages of fibrosis (ie distinguish F0 from F1 and F2) and thus a histologic stage cannot be predicted from the Fibroscan reading. 2. Liver stiffness can be increased by factors other than fibrosis including passive congestion, infiltrative processes, active alcoholism, recent moderate alcohol consumption in the 2 weeks before the exam, biliary obstruction and marked inflammation. The interpretation of the Fibroscan result provided above may not have taken such clinical factors into account. 3. Identifying steatosis by an elevated CAP score (> 250 db/m) is useful for establishing a diagnosis of steatotic liver disease. However the severity of steatosis does not correlate with liver related outcomes. Disease etiology also influences Fibroscan cutoff values for fibrosis stages and the following cutoffs have been proposed (Aj et al, Clin Gastro Hepatol 2015; 13:27-36): Cutoffs for Stage 3 and Stage 4 fibrosis respectively: Hepatitis B: >9 and >11.7 kPa Hepatitis C: >9.5 and >12.5 kPa HCV-HIV: >11 and >14 kPa Cholestatic liver diseases: >10 and >17.9 kPa MASLD/MASH: >10 and >14 kPa CAP estimates of steatosis: normal <200 dB/m mild 200 to 250 dB/m moderate 250-290 dB/m substantial > 290 dB/m (Note that Fibroscan is not a quantitative measure of liver fat.) These criteria are estimates and may change as additional supporting data becomes available. (This additional interpretive data was last updated 10/14/24.) [email or web address] Ban Alfaro MD PROCEDURE/MINOR SURGICAL ORDERABLES * HEMOGLOBIN A1C (08/05/2024 1:40 PM CDT) Pathologist [facility] Hemoglobin A1c 5.5 <=5.6 % 08/06/2024 8:52 AM CDT [facility] Estimated Average Glucose 111 mg/dL 08/06/2024 8:52 AM CDT [facility] Comment: HbA1c Interpretation: Normal : < 5.7% Pre-diabetes: 5.7-6.4% Diabetes: Equal to or greater than 6.5% Test results diagnostic of diabetes should be repeated for confirmation. Treatment target values recommended by ADA and other clinical organizations should be used to evaluate metabolic control in patients. Reference: [place] [employer], Standards of Care in Diabetes -2020 In patients 70 years and older consider HbA1c target range of 7.0-7.5% (Reference: Jay Giang et al. JAMDA. 2012) The Sebia assay for the measurement of HbA1c is a National Glycohemoglobin Standardization Program (NGSP) certified method. Blood BLOOD SPECIMEN / Unknown Lab Venipuncture / Unknown 08/05/2024 1:40 PM CDT 08/05/2024 2:29 PM CDT Merrick Engel MD LAB - CHEMISTR Y ORDERABLES [facility] [address] [place] [id number], [facility] [phone] * HEPATITIS C ANTIBODY (08/05/2024 1:40 PM CDT) Pathologist [facility] Hepatitis C Antibody Non-react xavier Non-reac tive 08/05/2024 3:14 PM CDT [facility] Comment:Hepatitis C Antibody screen indicates no serologic evidence of past or current infection with Hepatitis C Virus. Patients with unexplained liver disease who are immunocompromised or suspected of having acute Hepatitis C infection may benefit from Nucleic Acid Test (DAHIANA) for Hepatitis C Viral RNA to confirm Hepatitis C status. Blood BLOOD SPECIMEN / Unknown Lab Venipuncture / Unknown 08/05/2024 1:40 PM CDT 08/05/2024 2:24 PM CDT Merrick Engel MD LAB - CHEMISTR Y ORDERABLES [facility] [address] [place] [address], [facility] [phone] from Last 3 Months or Most Recently Relevant to Health Maintenance Advance Directives * Full Code (Latest Code Status on File) Date Activated Date Inactivated Comments 03/02/2024 5:32 PM 03/02/2024 9:52 PM * Full Code Date Activated Date Inactivated Comments 01/28/2020 7:33 AM 02/03/2020 3:16 PM Care Teams Life Scientist Relationship Specialty Start Date End Date Thao Mcqueen Update Information PCP - General 08/22/24
--- OUTSIDE RECORDS SUMMARY | 2024-12-04 22:23 | XMS_ITS | Referral Summary ---
Author Organization [facility] Address [address] [place] [address] Care Team Providers Care Layer Out Plate Glass Name Role Phone Thao Mcqueen Primary Care Provider Unavailab le Source Comments [facility],non-owned Affiliates and Associated Physician Practices is amultiple site organization consisting of ambulatory clinics and hospital sitesin [place], [place], [place] and [place]. This disclosure is being madepursuant to the Care Everywhere program and may not contain all information available regarding this patient. Last updated 18.[facility] Encounters Date Type Department Care Team Description 11/24/2024 Telephone [facility] [address] [place] [address] Antonette Hill RN Kidney Transplant Evaluation 11/22/2024 Telephone [facility] [address] [place] [address] Maral Valdivia CPC Kidney Transplant Evaluation 11/18/2024 Travel 11/18/2024 11:00 AM SUPERCHARGER REPAIR SUPERVISOR Procedure visit [facility] [address] [place] [phone] Dell Mcmillan MD NAFLD (nonalcoholic fatty liver disease) 11/18/2024 11:00 AM SUPERCHARGER REPAIR SUPERVISOR Office Visit [facility] [address] [place] [phone] Wendy Ordoñez PA-C Pre-transplant evaluation for kidney transplant (Primary Dx); ESRD (end stage renal disease) (HCC) 11/17/2024 Telephone [facility] [address] [place] [address] Antonette Hill RN Kidney Transplant Evaluation 10/25/2024 Orders Only [facility] Antico[facility] - Clinical Pharmacy [address] [place] [address] Radha Roper MD watermelon inspector (current) use of anticoagulants ; Atrial fibrillation, unspecified type (HCC) 10/19/2024 Travel 10/19/2024 2:30 PM SUPERCHARGER REPAIR SUPERVISOR Office Visit [facility] - [facility] [address] [place] [address] Ravi Evans III, MD Obesity, Class I, BMI 30-34.9 (Primary Dx); Type 2 diabetes mellitus with other specified complication, 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 watermelon inspector insulin use (HCC); Metabolic syndrome; Neuropathy 10/17/2024 Telephone [facility] [address] [place] [address] Maral Valdivia CPC Kidney Transplant Evaluation 10/17/2024 10:20 AM SUPERCHARGER REPAIR SUPERVISOR Video Visit [facility] - Cardiology [address] [facility], [facility] [address] [place] [address] Ban Alfaro MD Arora, Shilpkumar, MD Pre-kidney transplant, listed ; 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); ESRD (end stage renal disease) (HCC); Hypertension, unspecified type; Type 2 diabetes mellitus with other kidney complication, 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 chcf insulin use (HCC); Atrial fibrillation, unspecified type (HCC) from Last 3 Months Allergies Active Allergy Reactions Criticality Noted Date [...] 11/18/24 Fibroscan CAP 260, LSM 3.7 kPa watermelon inspector (current) use of anticoagulants 2024 ESRD (end stage renal disease) 10/24/2024 Dependence on renal dialysis 10/24/2024 Pre-kidney transplant, listed 10/24/2024 Atrial fibrillation, unspecified type 10/24/2024 Hypertension, unspecified type 10/24/2024 Type 2 diabetes mellitus wit h other kidney complication, 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 chcf insulin use 10/24/2024 Hypertension 10/19/2024 Type 2 [...] were not included. Kemal Cali 1955 Referring Drink Mixer: Angela Augustin Listing Date: 12/30/2023 Dialysis Info: [...] CT ALERTS: Listed for Hep C kidneys Assistant Hall Director: [facility] r/t DM2 and [...] Primary gout S/P ablation of atrial fibrillation 2019 Past Surgical History: Procedure Laterality Date Appendectomy [...] abdominal surgical records from Dr. Veloz at [facility] in [place] with respect to the laparotomy, lysis of [...] factors of diabetes, obesity, hypertension and JONAH. milli Flores for the referral. Ban Alfaro MD silverer Transplant & HPB Surgery Transplant Surgery Clinic [...] Lt heart Cath and cardiology appointment at [facility] for A. Fib./Abelation, iRBBB and [...] discussed. Kemal Cali was present with Wendy Ordoñze PA-C and verbalized full understanding of all [...] followup in PRN. Wendy Ordoñez PA-C Physician Carving Machine Operator in Internal Medicine Sampson Holloway MD Professor of Internal Medicine No orders of the defined types were placed in this encounter. Cardiology: 10/17/2024 Assessment 1. Pre-kidney transplant, listed 2. 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) 3. ESRD (end stage renal disease) (HCC) 4. Hypertension, unspecified type 5. Type 2 diabetes mellitus with other kidney complication, 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 watermelon inspector insulin use (HCC) 6. Atrial fibrillation, unspecified [...] of the time was also spent in [id number] interaction with the patient as well as [...] pre-kidney transplant evaluation. - Case request for [facility] placed - Follow up after [facility] completed Please note, recommendations are not final until attested/co-signed by the attending physician. Thank you for your consultation, please do not hesitate to contact us with any questions or concerns. Daniel Lay MD Cardiovascular Diseases Fellow PGY-4 [facility] Cardiology: 12/12/2022 (consult from ED visit) [place] [facility]: 02/12/2022 [place] [facility]: 03/19/2021 Pertinent Previous Committee Presentations: 11/24/2024 [...] Pt on Eliquis d/t A-Fib; ablation completed. [facility] completed 03/03/24 - normal coronaries. Reviewed txp [...] mg/kg Committee Discussion Details: Pt brought to [facility] to discuss possible listing. -Reviewed PMH and [...] and ascending aorta. Pericardium No pericardial effusion. [facility]: 03/03/2024 Conclusion The coronary vessels are [...] or text me on my cell phone [phone]. I appreciate the opportunity to participate in the care of your patient and look forward to being of service in the future as well. Sincerely, Kristel White MD, PhD, [facility] Quality And Reliability Engineercasino assistant manager CXR: 08/05/2024 Findings/Impression: . No focal consolidation, [...] suggestion of sludge on EUS. Findings: The thermometer tester film was normal. The esophagus was successfully [...] stent, this can be done at the [place]. - Please avoid NSAIDs (i.e Motrin, Aleve, [...] remain persistently elevated. - Return [facility] to [place] [facility] for [facility] care - Discussed results with Dr. Chappell. Please followup with him at the [place] - Return to primary care physician as previously scheduled. - In the unusual situation that you develop abdominal pain, bleeding or other significant problems in the days following this procedure please call my office at [phone] to speak to my nurses. After hours and evenings please call [phone] and speak to the GI fellow occupational health physician. Please tell them that Dr. Freeman did [...] this procedure please call my office at [phone] to speak to my nurses. After hours and evenings please call [phone] and speak to the GI fellow occupational health physician. Please tell them that Dr. Freeman did [...] It is the impression of this social sciences research scientist that Kemal Cali has several positive factors for Kidney transplant candidacy from a psychosocial perspective. Patient appears to have appropriate knowledge of illness. Patient has sufficient insurance coverage and stable financial situation for post transplant needs. No concerns regarding substance abuse, legal issues, or mental health needs. Patient has adequate support system and appropriate discharge plan. Send financial assistance resources to email [email or web address] Moving to [address] [place] [id number] Plan: textile worker to provide supportive services as needed. Patient remains a reasonable candidate for transplant from a psychosocial perspective. Psychiatric Consult Recommended: No Transplant Sushi Chef: Cesilia Rivera LMSW Abdominal Transplant Sushi Chef [phone] 2023 Caregivers: Primary is brother Nahum, Pt states He has a lot of options re:secondary. Took the YARDER OPERATOR forms to complete and return Call from pts ex- Lynnette who confirmed as a willing caregiver. She will return the forms matt. Answered questions about living donation and she requested the website to be sent to her email at [email or web address] : 11/23/2024 Transplant Nutrition Evaluation BMI: Body [...] low processed food eating Waist 2023: 44 2/ Monitoring: Weight Diet Compliance Re-Evaluation: Annual f/u if listed or per Transplant Team Referral Enid Sandoval RD/LD Items Still Pending: Intestinal adhesions with complete obstruction 0 01/28/2020 Abdominal pain, generalized 01/28/2020 Dilation of biliary tract 10/19/2018 Overview (10/19/2024): Added automatically from request for surgery [id number] Resolved Problems Problem Noted Date Diagnosed Date Resolved Date CKD (chronic kidney disease) stage 5, GFR less than 15 ml/min 10/19/2024 Social History Tobacco Use Types Packs/Day Years Used Date Smoking Tobacco: Former Cigarettes 1 23 1 975 - 1997 Smokeless Tobacco: Never Tobacco [...] Comments Blood Pressure 127/55 11/18/2024 10:39 AM SUPERCHARGER REPAIR SUPERVISOR Pulse 57 11/18/2024 10:39 AM SUPERCHARGER REPAIR SUPERVISOR Temperature 36.5 C (97.7 F) 11/18/2024 10:39 AM SUPERCHARGER REPAIR SUPERVISOR Respiratory Rate 20 08/22/2024 9:01 AM SUPERCHARGER REPAIR SUPERVISOR Oxygen Saturation 100% 11/18/2024 10: 39 AM SUPERCHARGER REPAIR SUPERVISOR Inhaled Oxygen Concentration - - Weight 100.2 kg (220 lb 14.4 oz) 2024 10:00 AM SUPERCHARGER REPAIR SUPERVISOR Stated Height 176.5 cm (5' 9.5 ) 11/23/2024 10 :00 AM SUPERCHARGER REPAIR SUPERVISOR Body Mass Index 32.15 11/23/2024 10:00 AM SUPERCHARGER REPAIR SUPERVISOR Functional Status Functional Status Response Date of Assess ment Is person deaf or have serious hearing difficult y? No 03/02/2024 Is person blind or have serious difficulty seein g? No 03/02/2024 Does person have serious dif ficulty walking/climbing stairs? No 03/02/2024 Does person have difficulty dressing/bathing? No 03/02/2024 Does person have difficulty doing errands alone? No 03/02/2024 Cognitive Status Response Date of Assessm ent Does person have difficulty concentrating/remembering/making decisions? No 03/02/2024 Plan of Treatment Upcoming Encounters Date Type Department Care Team (Late st Contact Info) Description 02/16/2025 1:30 PM CDT Office Visit [facility] - [address], [place] [address] Ravi Evans III, MD [address] [phone] 10/16/2025 10:20 AM SUPERCHARGER REPAIR SUPERVISOR Office Visit [facility] - Cardiology [address] [facility], [facility] [address] [place] [address] Radha Roper MD [address] [facility] [address] [place] [id number] Goals Goal Patient Goal Type Associated Problems Recent Progress Patient-Stated? Author Blood Pressure < 140/90 Blood Pressure 127/55(2024 10:39 AM SUPERCHARGER REPAIR SUPERVISOR) No Antonette Hill, ball thread machine tender Management General On track( 025 10:37 AM SUPERCHARGER REPAIR SUPERVISOR) No Victor Hugo Vergara, RICHARD Note: Expected end date: ongoing Interventions: Take all medications as prescribed Let your doctor know right away about any changes in your medications Make sure to request a refill of your medication at least one week prior to your last dose Medical Devices Implanted Type Area Radio Tester Device Identifier Shelf Expiration Date Model / Serial / Lot Prosthesis-07/12 Implanted:07/25 (Quantity not on file) Prosthesis Penile Prosthesis Description:Coloplast Titan 22 Penile implant and reservoir Procedures Procedure Name Priority Date/Time Associated Diagnosis Comments [facility] Routine 11/18/2024 10:22 AM SUPERCHARGER REPAIR SUPERVISOR Pre-kidney transplant, 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) ESRD (end stage renal disease) (HCC) Hypertension, unspecified type Type 2 diabetes mellitus with other kidney complication, 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 chcf insulin use (HCC) HEPATITIS C ANTIBODY Routine [...] Recently Relevant to Health Maintenance Results * [facility]IVER ELASTOGRAP[facility] (11/18/2024 10:22 AM SUPERCHARGER REPAIR SUPERVISOR) Narrative Dell Mcmillan MD - 11/18/2024 10:22 AM SUPERCHARGER REPAIR SUPERVISOR Dell Mcmillan MD 11/21/2024 4:11 PM Diagnosis: [...] on the following published data: Whit J, Dreadr m H, Ekstkatherinet M, Michael C, Bonaynesi M, Cure S, Ampnahido J, Nasr P, Tallab L, Canxaviert CM, Kelea S, S ncian Y, Dayton E, Mitra A, Jose Angel M, Devan J, Shahram A and Powell-Abran M. Non-invasive tests accurately stratify patients with NAFLD based on their risk of liver-related events. J Hepatol (2021) 76: 9123-1393. Kelly PJ, Luis M, Aliza M, et al. Accuracy of FibroScan controlled attenuation parameter and liver stiffness measurement in assessing steatosis and fibrosis in patients with nonalcoholic fatty liver disease. Gastroenterology 2019;156:6096-7214. Jose DOWD, Kev R, Dallas AUGUSTE, et al. Vibration-controlled transient elastography to assess [...] These include the FAST (Fibroscan-AST) score (Ashley, 2022) and the Agile3+ and Agile4 scores (Sheldon, 2023; Cindy, 2024). Ashley NOVOA, Dallas AUGUSTE, Shayne Ferris, Rojelio Giang, et al. Validation of the accuracy of the FAST score for detecting patients with at-risk nonalcoholic steatohepatitis (MARTIN) in a [place] cohort and comparison to other non-invasive algorithms. PLoS ONE (2021) 17: [id number]. Sheldon AJ, James J, Ted ZM, et al. Enhanced diagnosis of advanced fibrosis and cirrhosis in individuals with NAFLD using FibroScan-based Agile scores. J Hepatol (2022) 78: 247-259. Cindy et al. Vibration-controlled transient elastography scores to predict liver-related events in steatotic liver disease. OLIVIA (2023) 331: 2578-6427 Fibroscan LSM can also be used with laboratory parameters without formulas to assess prognosis. According to the Baveno-VII criteria (Dave, 202), Fibroscan LSM <=15 kPa plus a platelet count of >=252d916/L rules out clinically significant portal hypertension (sensitivity and negative predictive value >90%) in patients with compensated advanced chronic liver disease. Dave R, Valerio J, Heike G, Talita T, Hal Valenzuela on behalf of the Baveno VII Faculty. Baveno VII--Renewing consensus in portal hypertension. J Hepatol (2021) 76: 959-974 Assessing the likelihood of advanced fibrosis in patients with intermediate liver stiffness measurement (LSM) by Fibroscan (e.g., 8-15 kPa) can be improved by also calculating the FIB-4 score (Tosine et al. Hepatology Communications 2019;3:2982-0480) or NAFLD Fibrosis score (Santa et al. Clinical Gastroenterology and Hepatology 2019;17:4042-7595 using routine clinical data. Notes: 1. Fibroscan [...] additional interpretive data was last updated 10/14/24.) [email or web address] Ban Alfaro MD PROCEDURE/MINOR SURGICAL ORDERABLES * HEMOGLOBIN A1C (08/05/2024 1:40 PM CDT) Hemoglobin A1c 5.5 <=5.6 % 08/06/2024 8:52 AM CDT [facility] Estimated Average Glucose 111 mg/dL 08/06/2024 8:52 AM CDT [facility] Comment: HbA1c Interpretation: Normal : < 5.7% Pre-diabetes: 5.7-6.4% Diabetes: Equal to or greater than 6.5% Test results diagnostic of diabetes should be repeated for confirmation. Treatment target values recommended by ADA and other clinical organizations should be used to evaluate metabolic control in patients. Reference: [place] Diabetes Association, Standards of Care in Diabetes [...] Engel MD LAB - CHEMISTR Y ORDERABLES [facility] [address] [place] [address], [facility] [phone] * HEPATITIS C ANTIBODY (08/05/2024 1:40 PM CDT) Hepatitis C Antibody Non-react xavier Non-reac tive 08/05/2024 3:14 PM CDT [facility] Comment:Hepatitis C Antibody screen indicates no serologic [...] Engel MD LAB - CHEMISTR Y ORDERABLES [facility] [address] [place] [address], [facility] [phone] from Last 3 Months or Most Recently Relevant to Health Maintenance Advance Directives * Full Code (Latest Code Status on File) Date Activated Date Inactivated Comments 03/02/2024 5:32 PM 03/02/2024 9:52 PM * Full Code Date Activated Date Inactivated Comments 01/28/2020 7:33 AM 02/03/2020 3:16 PM Care Teams Layer Out Plate Glass Relationship Specialty Start Date End Date Thao Mcqueen Update Information PCP - General 08/22/24
--- OUTSIDE RECORDS SUMMARY | 2024-12-04 22:23 | XMS_ITS | Patient Health Summary ---
Author Organization [facility] Address [address] [place] [address] Care Team Providers Care Educational Program Director Name Role Phone Thao Mcqueen Primary Care Provider Unavailab le Note from [facility],non-owned Affiliates and Associated Physician Practices is amultiple site organization consisting of ambulatory clinics and hospital sitesin [place], [place], [place] and [place]. This disclosure is being madepursuant to the Care Everywhere program and may not contain all information available regarding this patient. Last updated 18.[facility] Allergies * Morphine(Other) -Medium Criticality Medications * Be aware that medications may not be up to date on this document. Alwaysverify current medications with the patient. * vitamin D3 (CHOLECALCIFEROL) 25 MCG (1000 UNITS) tablet Take 1 (one) tablet by mouth once daily * febuxostat (ULORIC) 40 MG tablet Take 1 (one) tablet by mouth once daily * sodium bicarbonate 650 MG tablet Take 1 (one) tablet by mouth once daily * atorvastatin (LIPITOR) 80 MG tablet(Started 02/03/2020) Take 1 tablet by mouth at bedtime * magnesium oxide (MAG-OX) 400 MG tablet(Started 02/03/2020) Take 1 tablet by mouth 2 times daily * NIFEdipine CR 24hr (Adalat CC) 90 MG tablet Take 1 (one) tablet by mouth once daily Take on an empty stomach. * calcitriol (Rocaltrol) 0.25 MCG capsule Take 4 (four) capsules by mouth once daily * renal vitamin (Dialyvite) tablet Take 1 (one) tablet by mouth every evening * amLODIPine (Norvasc) 10 MG tablet Take 1 (one) tablet by mouth once daily * tamsulosin (Flomax) 0.4 MG capsule Take 1 (one) capsule by mouth 2 times daily At the same time every day after a meal. * carvedilol (Coreg) 25 MG tablet Take 1 (one) tablet by mouth 2 times daily with morning and evening meal * omeprazole (PriLOSEC) 20 MG capsule Take 1 (one) capsule by mouth daily before breakfast * apixaban (Eliquis) 5 MG tablet Take 1 (one) tablet by mouth 2 times daily * semaglutide 1 MG/ML vial Inject 1 (one) mg subcutaneously every 7 days * olopatadine (Pataday) 0.2 % ophthalmic solution(Started 12/18/2023) Instill 1 (one) drop into both eyes once daily Ended Medications* Other(Discontinued) Take 0.5 Each by mouth once daily Febuxostat 80 mg Active Problems Problem Noted Date Diagnosed Date Metabolic dysfunction-associ ated steatotic liver disease (MASLD) 11/21/2024 assisted (current) use of anticoagulants 2024 ESRD (end stage renal disease) 10/24/2024 Dependence on renal dialysis 10/24/2024 Pre-kidney transplant, listed 10/24/2024 Atrial fibrillation, unspecified type 10/24/2024 Hypertension, unspecified type 10/24/2024 Type 2 diabetes mellitus wit h other kidney complication, 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 prison insulin use 10/24/2024 Hypertension 10/19/2024 Type 2 [...] 11/23/2023 Pre-transplant evaluation for kidney transplant 07/06/2023 Intestinal adhesions with complete obstruction 0 01/28/2020 Abdominal pain, generalized 01/28/2020 Dilation of biliary tract 10/19/2018 Resolved Problems Problem Noted Date Diagnosed Date Resolved Date CKD (chronic kidney disease) stage 5, GFR less than 15 ml/min 10/19/2024 Social History Tobacco Use Types Packs/Day Years Used Date Smoking Tobacco: Former Cigarettes 1 1 97 - 1997 Smokeless Tobacco: Never Tobacco Cessation:Counseling [...] Comments Blood Pressure 127/55 11/18/2024 10:39 AM [facility] Pulse 57 11/18/2024 10:39 AM [facility] Temperature 36.5 C (97.7 F) 11/18/2024 10:39 AM [facility] Respiratory Rate 20 08/22/2024 9:01 AM [facility] Oxygen Saturation 100% 11/18/2024 10: 39 AM [facility] Inhaled Oxygen Concentration - - Weight 100.2 kg (220 lb 14.4 oz) 2024 10:00 AM [facility] Stated Height 176.5 cm (5' 9.5 ) 11/23/2024 10 :00 AM [facility] Body Mass Index 32.15 11/23/2024 10:00 AM [facility] Medical Devices Implanted Type Area [employer] [place] Device Identifier Shelf Expiration Date Model / Serial / Lot Prosthesis-07/12 Implanted:07/25 (Quantity not on file) Prosthesis Penile Prosthesis Description:Coloplast Titan 22 Penile implant and reservoir Procedures * WA LIVER ELASTOGRAPHY(Performed 11/18/2024) Performed for Pre-kidney transplant, listed, 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), ESRD (end stage renal disease) (HCC), Hypertension, unspecified type, Type 2 diabetes mellitus with other kidney complication, 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 prison insulin use (HCC) * US RETROPERITONEAL COMPLETE(Performed 08/22/2024) Performed for Pre-kidney transplant, listed, ESRD (end stage renal disease) (HCC), 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), Hypertension, unspecified type, Atrial fibrillation, unspecified type (HCC), Neuropathy, JONAH on CPAP * URINE MICROSCOPIC ONLY REFLEX TO CULTURE(Performed 08/05/2024) Performed for Pre-kidney transplant, listed, ESRD (end stage renal disease) (HCC), 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), Hypertension, unspecified type, Atrial fibrillation, unspecified type (HCC), Neuropathy, JONAH on CPAP * URINALYSIS REFLEX MICROSCOPIC REFLEX CULTURE(Performed 08/05/2024) Performed for Pre-kidney transplant, listed, ESRD (end stage renal disease) (HCC), 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), Hypertension, unspecified type, Atrial fibrillation, unspecified type (HCC), Neuropathy, JONAH on CPAP * CREATININE URINE RANDOM(Performed 08/05/2024) Performed for Pre-kidney transplant, listed, ESRD (end stage renal disease) (HCC), 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), Hypertension, unspecified type, Atrial fibrillation, unspecified type (HCC), Neuropathy, JONAH on CPAP * PROTEIN URINE RANDOM QUANTITATIVE(Performed 08/05/2024) Performed for Pre-kidney transplant, listed, ESRD (end stage renal disease) (HCC), 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), Hypertension, unspecified type, Atrial fibrillation, unspecified type (HCC), Neuropathy, JONAH on CPAP * CBC W AUTO DIFFERENTIAL(Performed 08/05/2024) Performed for Pre-kidney transplant, listed, ESRD (end stage renal disease) (HCC), 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), Hypertension, unspecified type, Atrial fibrillation, unspecified type (HCC), Neuropathy, JONAH on CPAP * PTH INTACT W/O CALCIUM(Performed 08/05/2024) Performed for Pre-kidney transplant, listed, ESRD (end stage renal disease) (HCC), 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), Hypertension, unspecified type, Atrial fibrillation, unspecified type (HCC), Neuropathy, JONAH on CPAP * PHOSPHORUS BLOOD(Performed 08/05/2024) Performed for Pre-kidney transplant, listed, ESRD (end stage renal disease) (HCC), 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), Hypertension, unspecified type, Atrial fibrillation, unspecified type (HCC), Neuropathy, JONAH on CPAP * IRON BLOOD(Performed 08/05/2024) Performed for Pre-kidney transplant, listed, ESRD (end stage renal disease) (HCC), 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), Hypertension, unspecified type, Atrial fibrillation, unspecified type (HCC), Neuropathy, JONAH on CPAP * FERRITIN(Performed 08/05/2024) Performed for Pre-kidney transplant, listed, ESRD (end stage renal disease) (HCC), 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), Hypertension, unspecified type, Atrial fibrillation, unspecified type (HCC), Neuropathy, JONAH on CPAP * TRANSFERRIN(Performed 08/05/2024) Performed for Pre-kidney transplant, listed, ESRD (end stage renal disease) (HCC), 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), Hypertension, unspecified type, Atrial fibrillation, unspecified type (HCC), Neuropathy, JONAH on CPAP * VITAMIN D 25-HYDROXY(Performed 08/05/2024) Performed for Pre-kidney transplant, listed, ESRD (end stage renal disease) (HCC), 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), Hypertension, unspecified type, Atrial fibrillation, unspecified type (HCC), Neuropathy, JONAH on CPAP * URIC ACID BLOOD(Performed 08/05/2024) Performed for Pre-kidney transplant, listed, ESRD (end stage renal disease) (HCC), 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), Hypertension, unspecified type, Atrial fibrillation, unspecified type (HCC), Neuropathy, JONAH on CPAP * COMPREHENSIVE METABOLIC PANEL(Performed 08/05/2024) Performed for Pre-kidney transplant, listed, ESRD (end stage renal disease) (HCC), 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), Hypertension, unspecified type, Atrial fibrillation, unspecified type (HCC), Neuropathy, JONAH on CPAP * HEMOGLOBIN A1C(Performed 08/05/2024) Performed for Pre-kidney transplant, listed, ESRD (end stage renal disease) (HCC), 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), Hypertension, unspecified type, Atrial fibrillation, unspecified type (HCC), Neuropathy, JONAH on CPAP * HEPATITIS A ANTIBODY(Performed 08/05/2024) Performed for Pre-kidney transplant, listed, ESRD (end stage renal disease) (HCC), 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), Hypertension, unspecified type, Atrial fibrillation, unspecified type (HCC), Neuropathy, JONAH on CPAP * HEPATITIS C ANTIBODY(Performed 08/05/2024) Performed for Pre-kidney transplant, listed, ESRD (end stage renal disease) (HCC), 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), Hypertension, unspecified type, Atrial fibrillation, unspecified type (HCC), Neuropathy, JONAH on CPAP * HEPATITIS B SURFACE ANTIBODY(Performed 08/05/2024) Performed for Pre-kidney transplant, listed, ESRD (end stage renal disease) (HCC), 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), Hypertension, unspecified type, Atrial fibrillation, unspecified type (HCC), Neuropathy, JONAH on CPAP * HEPATITIS B CORE ANTIBODY TOTAL(Performed 08/05/2024) Performed for Pre-kidney transplant, listed, ESRD (end stage renal disease) (HCC), 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), Hypertension, unspecified type, Atrial fibrillation, unspecified type (HCC), Neuropathy, JONAH on CPAP * HEPATITIS B SURFACE ANTIGEN W RFLX CONFIRMATION(Performed 08/05/2024) Performed for Pre-kidney transplant, listed, ESRD (end stage renal disease) (HCC), 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), Hypertension, unspecified type, Atrial fibrillation, unspecified type (HCC), Neuropathy, JONAH on CPAP * LIPID PROFILE(Performed 08/05/2024) Performed for Pre-kidney transplant, listed, ESRD (end stage renal disease) (HCC), 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), Hypertension, unspecified type, Atrial fibrillation, unspecified type (HCC), Neuropathy, JONAH on CPAP * STRONGYLOIDES ANTIBODY IGG(Performed 08/05/2024) Performed for Pre-kidney transplant, listed, ESRD (end stage renal disease) (HCC), 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), Hypertension, unspecified type, Atrial fibrillation, unspecified type (HCC), Neuropathy, JONAH on CPAP * TOXOPLASMA GONDII ANTIBODY IGG(Performed 08/05/2024) Performed for Pre-kidney transplant, listed, ESRD (end stage renal disease) (HCC), 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), Hypertension, unspecified type, Atrial fibrillation, unspecified type (HCC), Neuropathy, JONAH on CPAP * HIV-1 HIV-2 ANTIBODY + HIV P24 AG PANEL(Performed 08/05/2024) Performed for Pre-kidney transplant, listed, ESRD (end stage renal disease) (HCC), 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), Hypertension, unspecified type, Atrial fibrillation, unspecified type (HCC), Neuropathy, JONAH on CPAP * PROSTATE SPECIFIC ANTIGEN SCREEN(Performed 08/05/2024) Performed for Pre-kidney transplant, listed, ESRD (end stage renal disease) (HCC), 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), Hypertension, unspecified type, Atrial fibrillation, unspecified type (HCC), Neuropathy, JONAH on CPAP * QUANTIFERON-TB GOLD PLUS 4-TUBE(Performed 08/05/2024) Performed for Pre-kidney transplant, listed, ESRD (end stage renal disease) (HCC), 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), Hypertension, unspecified type, Atrial fibrillation, unspecified type (HCC), Neuropathy, JONAH on CPAP * OPIATES BLOOD(Performed 08/05/2024) Performed for Pre-kidney transplant, listed, ESRD (end stage renal disease) (HCC), 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), Hypertension, unspecified type, Atrial fibrillation, unspecified type (HCC), Neuropathy, JONAH on CPAP * COCAINE METABOLITE BLOOD QUANT(Performed 08/05/2024) Performed for Pre-kidney transplant, listed, ESRD (end stage renal disease) (HCC), 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), Hypertension, unspecified type, Atrial fibrillation, unspecified type (HCC), Neuropathy, JONAH on CPAP * AMPHETAMINE BLOOD CONFIRMATION(Performed 08/05/2024) Performed for Pre-kidney transplant, listed, ESRD (end stage renal disease) (HCC), 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), Hypertension, unspecified type, Atrial fibrillation, unspecified type (HCC), Neuropathy, JONAH on CPAP * NICOTINE + METABOLITES BLOOD(Performed 08/05/2024) Performed for Pre-kidney transplant, listed, ESRD (end stage renal disease) (HCC), 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), Hypertension, unspecified type, Atrial fibrillation, unspecified type (HCC), Neuropathy, JONAH on CPAP * SYPHILIS ANTIBODY CASCADING REFLEX(Performed 08/05/2024) Performed for Pre-kidney transplant, listed, ESRD (end stage renal disease) (HCC), 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), Hypertension, unspecified type, Atrial fibrillation, unspecified type (HCC), Neuropathy, JONAH on CPAP * VAS ARTERIAL MULTILEVEL LE(Performed 08/05/2024) Performed for Pre-kidney transplant, listed, Dependence on renal dialysis ([facility]), ESRD (end stage renal disease) ([facility]) * XR CHEST 2VW(Performed 08/05/2024) Performed for Pre-kidney transplant, listed, ESRD (end stage renal disease) ([facility]), 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), Hypertension, unspecified type, Atrial fibrillation, unspecified type (HCC), Neuropathy, JONAH on CPAP * XR PANOREX(Performed 08/05/2024) Performed for Pre-kidney transplant, listed, ESRD (end stage renal disease) ([facility]), 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), Hypertension, unspecified type, Atrial fibrillation, unspecified type (HCC), Neuropathy, JONAH on CPAP * FLOW HLA XM LIVING DONOR(Performed 06/20/2024) Performed for Pre-transplant evaluation for kidney transplant * HLA ANTIBODY SCREEN LUM CLASS 1 SAB(Performed 06/20/2024) Performed for Pre-transplant evaluation for kidney transplant * HLA ANTIBODY SCREEN LUM CLASS 2 SAB(Performed 06/20/2024) Performed for Pre-transplant evaluation for kidney transplant * CORONARY ANGIOGRAPHY(Performed 03/02/2024) Performed for Pre-transplant evaluation for kidney transplant * GLUCOSE - POINT OF CARE(Performed 03/02/2024) * CBC W/O DIFFERENTIAL(Performed 03/02/2024) Performed for Pre-transplant evaluation for kidney transplant * BASIC METABOLIC PANEL (CALCIUM TOTAL)(Performed 03/02/2024) Performed for Pre-transplant evaluation for kidney transplant * EKG 12-LEAD(Performed 01/19/2024) Performed for Pre-transplant evaluation for kidney transplant * URINALYSIS W/MICROSCOPIC NO CULTURE(Performed 07/28/2023) Performed for Pre-transplant evaluation for kidney transplant, Type 2 diabetes mellitus with other kidney complication, 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 prison insulin use ([facility]), Hypertension, unspecified type, Atrial fibrillation, unspecified type (HCC), Neuropathy, Hyperlipidemia, unspecified hyperlipidemia type, Stage 4 chronic kidney disease (HCC), Former smoker * CREATININE URINE RANDOM(Performed 07/28/2023) Performed for Pre-transplant evaluation for kidney transplant, Type 2 diabetes mellitus with other kidney complication, 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 prison insulin use (HCC), Hypertension, unspecified type, Atrial fibrillation, unspecified type (HCC), Neuropathy, Hyperlipidemia, unspecified hyperlipidemia type, Stage 4 chronic kidney disease (HCC), Former smoker * PROTEIN URINE RANDOM QUANTITATIVE(Performed 07/28/2023) Performed for Pre-transplant evaluation for kidney transplant, Type 2 diabetes mellitus with other kidney complication, 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 vp care management insulin use (HCC), Hypertension, unspecified type, Atrial fibrillation, unspecified type (HCC), Neuropathy, Hyperlipidemia, unspecified hyperlipidemia type, Stage 4 chronic kidney disease (HCC), Former smoker * BLOOD TYPE ABO+ RH PANEL(Performed 07/28/2023) Performed for Pre-transplant evaluation for kidney transplant, Type 2 diabetes mellitus with other kidney complication, 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 prison insulin use (HCC), Hypertension, unspecified type, Atrial fibrillation, unspecified type (HCC), Neuropathy, Hyperlipidemia, unspecified hyperlipidemia type, Stage 4 chronic kidney disease (HCC), Former smoker * HLA ANTIBODY SCREEN LUM CLASS 2 SAB(Performed 07/28/2023) Performed for Pre-transplant evaluation for kidney transplant, Type 2 diabetes mellitus with other kidney complication, 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 prison insulin use (HCC), Hypertension, unspecified type, Atrial fibrillation, unspecified type (HCC), Neuropathy, Hyperlipidemia, unspecified hyperlipidemia type, Stage 4 chronic kidney disease (HCC), Former smoker * HLA ANTIBODY SCREEN LUM CLASS 1 SAB(Performed 07/28/2023) Performed for Pre-transplant evaluation for kidney transplant, Type 2 diabetes mellitus with other kidney complication, 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 prison insulin use (HCC), Hypertension, unspecified type, Atrial fibrillation, unspecified type (HCC), Neuropathy, Hyperlipidemia, unspecified hyperlipidemia type, Stage 4 chronic kidney disease (HCC), Former smoker * HLA TYPING DNA LOW RESOLUTION DR,DQ(Performed 07/28/2023) Performed for Pre-transplant evaluation for kidney transplant, Type 2 diabetes mellitus with other kidney complication, 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 vp care management insulin use (HCC), Hypertension, unspecified type, Atrial fibrillation, unspecified type (HCC), Neuropathy, Hyperlipidemia, unspecified hyperlipidemia type, Stage 4 chronic kidney disease (HCC), Former smoker * HLA TYPING DNA LOW RESOLUTION A,B,C(Performed 07/28/2023) Performed for Pre-transplant evaluation for kidney transplant, Type 2 diabetes mellitus with other kidney complication, 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 prison insulin use (HCC), Hypertension, unspecified type, Atrial fibrillation, unspecified type (HCC), Neuropathy, Hyperlipidemia, unspecified hyperlipidemia type, Stage 4 chronic kidney disease (HCC), Former smoker * TYPE + SCREEN PANEL(Performed 07/28/2023) Performed for Pre-transplant evaluation for kidney transplant, Type 2 diabetes mellitus with other kidney complication, 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 prison insulin use (HCC), Hypertension, unspecified type, Atrial fibrillation, unspecified type (HCC), Neuropathy, Hyperlipidemia, unspecified hyperlipidemia type, Stage 4 chronic kidney disease (HCC), Former smoker * STRONGYLOIDES ANTIBODY IGG(Performed 07/28/2023) Performed for Pre-transplant evaluation for kidney transplant, Type 2 diabetes mellitus with other kidney complication, 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 prison insulin use (HCC), Hypertension, unspecified type, Atrial fibrillation, unspecified type (HCC), Neuropathy, Hyperlipidemia, unspecified hyperlipidemia type, Stage 4 chronic kidney disease (HCC), Former smoker * TOXOPLASMA GONDII ANTIBODY IGG(Performed 07/28/2023) Performed for Pre-transplant evaluation for kidney transplant, Type 2 diabetes mellitus with other kidney complication, 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 prison insulin use (HCC), Hypertension, unspecified type, Atrial fibrillation, unspecified type (HCC), Neuropathy, Hyperlipidemia, unspecified hyperlipidemia type, Stage 4 chronic kidney disease (HCC), Former smoker * HIV-1 HIV-2 ANTIBODY + HIV P24 AG PANEL(Performed 07/28/2023) Performed for Pre-transplant evaluation for kidney transplant, Type 2 diabetes mellitus with other kidney complication, 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 vp care management insulin use (HCC), Hypertension, unspecified type, Atrial fibrillation, unspecified type (HCC), Neuropathy, Hyperlipidemia, unspecified hyperlipidemia type, Stage 4 chronic kidney disease (HCC), Former smoker * PROSTATE SPECIFIC ANTIGEN SCREEN(Performed 07/28/2023) Performed for Pre-transplant evaluation for kidney transplant, Type 2 diabetes mellitus with other kidney complication, 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 prison insulin use (HCC), Hypertension, unspecified type, Atrial fibrillation, unspecified type (HCC), Neuropathy, Hyperlipidemia, unspecified hyperlipidemia type, Stage 4 chronic kidney disease (HCC), Former smoker * QUANTIFERON-TB GOLD PLUS 4-TUBE(Performed 07/28/2023) Performed for Pre-transplant evaluation for kidney transplant, Type 2 diabetes mellitus with other kidney complication, 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 vp care management insulin use (HCC), Hypertension, unspecified type, Atrial fibrillation, unspecified type (HCC), Neuropathy, Hyperlipidemia, unspecified hyperlipidemia type, Stage 4 chronic kidney disease (HCC), Former smoker * VARICELLA ZOSTER ANTIBODY IGG(Performed 07/28/2023) Performed for Pre-transplant evaluation for kidney transplant, Type 2 diabetes mellitus with other kidney complication, 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 prison insulin use (HCC), Hypertension, unspecified type, Atrial fibrillation, unspecified type (HCC), Neuropathy, Hyperlipidemia, unspecified hyperlipidemia type, Stage 4 chronic kidney disease (HCC), Former smoker * RUBELLA ANTIBODY IGG TITER(Performed 07/28/2023) Performed for Pre-transplant evaluation for kidney transplant, Type 2 diabetes mellitus with other kidney complication, 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 prison insulin use (HCC), Hypertension, unspecified type, Atrial fibrillation, unspecified type (HCC), Neuropathy, Hyperlipidemia, unspecified hyperlipidemia type, Stage 4 chronic kidney disease (HCC), Former smoker * MUMPS ANTIBODY IGG(Performed 07/28/2023) Performed for Pre-transplant evaluation for kidney transplant, Type 2 diabetes mellitus with other kidney complication, 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 prison insulin use (HCC), Hypertension, unspecified type, Atrial fibrillation, unspecified type (HCC), Neuropathy, Hyperlipidemia, unspecified hyperlipidemia type, Stage 4 chronic kidney disease (HCC), Former smoker * RUBEOLA ANTIBODY IGG(Performed 07/28/2023) Performed for Pre-transplant evaluation for kidney transplant, Type 2 diabetes mellitus with other kidney complication, 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 vp care management insulin use (HCC), Hypertension, unspecified type, Atrial fibrillation, unspecified type (HCC), Neuropathy, Hyperlipidemia, unspecified hyperlipidemia type, Stage 4 chronic kidney disease (HCC), Former smoker * CANNABINOID SCREEN BLOOD(Performed 07/28/2023) Performed for Pre-transplant evaluation for kidney transplant, Type 2 diabetes mellitus with other kidney complication, 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 vp care management insulin use (HCC), Hypertension, unspecified type, Atrial fibrillation, unspecified type (HCC), Neuropathy, Hyperlipidemia, unspecified hyperlipidemia type, Stage 4 chronic kidney disease (HCC), Former smoker * OPIATES BLOOD(Performed 07/28/2023) Performed for Pre-transplant evaluation for kidney transplant, Type 2 diabetes mellitus with other kidney complication, 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 vp care management insulin use (HCC), Hypertension, unspecified type, Atrial fibrillation, unspecified type (HCC), Neuropathy, Hyperlipidemia, unspecified hyperlipidemia type, Stage 4 chronic kidney disease (HCC), Former smoker * COCAINE METABOLITE BLOOD QUANT(Performed 07/28/2023) Performed for Pre-transplant evaluation for kidney transplant, Type 2 diabetes mellitus with other kidney complication, 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 prison insulin use (HCC), Hypertension, unspecified type, Atrial fibrillation, unspecified type (HCC), Neuropathy, Hyperlipidemia, unspecified hyperlipidemia type, Stage 4 chronic kidney disease (HCC), Former smoker * AMPHETAMINE BLOOD CONFIRMATION(Performed 07/28/2023) Performed for Pre-transplant evaluation for kidney transplant, Type 2 diabetes mellitus with other kidney complication, 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 prison insulin use (HCC), Hypertension, unspecified type, Atrial fibrillation, unspecified type (HCC), Neuropathy, Hyperlipidemia, unspecified hyperlipidemia type, Stage 4 chronic kidney disease (HCC), Former smoker * NICOTINE + METABOLITES BLOOD(Performed 07/28/2023) Performed for Pre-transplant evaluation for kidney transplant, Type 2 diabetes mellitus with other kidney complication, 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 vp care management insulin use (HCC), Hypertension, unspecified type, Atrial fibrillation, unspecified type (HCC), Neuropathy, Hyperlipidemia, unspecified hyperlipidemia type, Stage 4 chronic kidney disease (HCC), Former smoker * ALCOHOL ETHYL BLOOD(Performed 07/28/2023) Performed for Pre-transplant evaluation for kidney transplant, Type 2 diabetes mellitus with other kidney complication, 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 prison insulin use (HCC), Hypertension, unspecified type, Atrial fibrillation, unspecified type (HCC), Neuropathy, Hyperlipidemia, unspecified hyperlipidemia type, Stage 4 chronic kidney disease (HCC), Former smoker * SYPHILIS ANTIBODY CASCADING REFLEX(Performed 07/28/2023) Performed for Pre-transplant evaluation for kidney transplant, Type 2 diabetes mellitus with other kidney complication, 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 vp care management insulin use (HCC), Hypertension, unspecified type, Atrial fibrillation, unspecified type (HCC), Neuropathy, Hyperlipidemia, unspecified hyperlipidemia type, Stage 4 chronic kidney disease (HCC), Former smoker * HEMOGLOBIN A1C(Performed 07/28/2023) Performed for Pre-transplant evaluation for kidney transplant, Type 2 diabetes mellitus with other kidney complication, 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 prison insulin use (HCC), Hypertension, unspecified type, Atrial fibrillation, unspecified type (HCC), Neuropathy, Hyperlipidemia, unspecified hyperlipidemia type, Stage 4 chronic kidney disease (HCC), Former smoker * YUE-BRASHER VIRUS ANTIBODY TO VCA IGG(Performed 07/28/2023) Performed for Pre-transplant evaluation for kidney transplant, Type 2 diabetes mellitus with other kidney complication, 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 vp care management insulin use (HCC), Hypertension, unspecified type, Atrial fibrillation, unspecified type (HCC), Neuropathy, Hyperlipidemia, unspecified hyperlipidemia type, Stage 4 chronic kidney disease (HCC), Former smoker * CYTOMEGALOVIRUS ANTIBODY IGG BLOOD(Performed 07/28/2023) Performed for Pre-transplant evaluation for kidney transplant, Type 2 diabetes mellitus with other kidney complication, 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 prison insulin use (HCC), Hypertension, unspecified type, Atrial fibrillation, unspecified type (HCC), Neuropathy, Hyperlipidemia, unspecified hyperlipidemia type, Stage 4 chronic kidney disease (HCC), Former smoker * HEPATITIS A ANTIBODY(Performed 07/28/2023) Performed for Pre-transplant evaluation for kidney transplant, Type 2 diabetes mellitus with other kidney complication, 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 vp care management insulin use (HCC), Hypertension, unspecified type, Atrial fibrillation, unspecified type (HCC), Neuropathy, Hyperlipidemia, unspecified hyperlipidemia type, Stage 4 chronic kidney disease (HCC), Former smoker * HEPATITIS C ANTIBODY(Performed 07/28/2023) Performed for Pre-transplant evaluation for kidney transplant, Type 2 diabetes mellitus with other kidney complication, 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 prison insulin use (HCC), Hypertension, unspecified type, Atrial fibrillation, unspecified type (HCC), Neuropathy, Hyperlipidemia, unspecified hyperlipidemia type, Stage 4 chronic kidney disease (HCC), Former smoker * HEPATITIS B SURFACE ANTIBODY(Performed 07/28/2023) Performed for Pre-transplant evaluation for kidney transplant, Type 2 diabetes mellitus with other kidney complication, 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 vp care management insulin use (HCC), Hypertension, unspecified type, Atrial fibrillation, unspecified type (HCC), Neuropathy, Hyperlipidemia, unspecified hyperlipidemia type, Stage 4 chronic kidney disease (HCC), Former smoker * HEPATITIS B CORE ANTIBODY TOTAL(Performed 07/28/2023) Performed for Pre-transplant evaluation for kidney transplant, Type 2 diabetes mellitus with other kidney complication, 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 vp care management insulin use (HCC), Hypertension, unspecified type, Atrial fibrillation, unspecified type (HCC), Neuropathy, Hyperlipidemia, unspecified hyperlipidemia type, Stage 4 chronic kidney disease (HCC), Former smoker * HEPATITIS B SURFACE ANTIGEN W RFLX CONFIRMATION(Performed 07/28/2023) Performed for Pre-transplant evaluation for kidney transplant, Type 2 diabetes mellitus with other kidney complication, 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 prison insulin use (HCC), Hypertension, unspecified type, Atrial fibrillation, unspecified type (HCC), Neuropathy, Hyperlipidemia, unspecified hyperlipidemia type, Stage 4 chronic kidney disease (HCC), Former smoker * LIPID PROFILE(Performed 07/28/2023) Performed for Pre-transplant evaluation for kidney transplant, Type 2 diabetes mellitus with other kidney complication, 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 vp care management insulin use (HCC), Hypertension, unspecified type, Atrial fibrillation, unspecified type (HCC), Neuropathy, Hyperlipidemia, unspecified hyperlipidemia type, Stage 4 chronic kidney disease (HCC), Former smoker * PTH INTACT W/O CALCIUM(Performed 07/28/2023) Performed for Pre-transplant evaluation for kidney transplant, Type 2 diabetes mellitus with other kidney complication, 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 prison insulin use (HCC), Hypertension, unspecified type, Atrial fibrillation, unspecified type (HCC), Neuropathy, Hyperlipidemia, unspecified hyperlipidemia type, Stage 4 chronic kidney disease (HCC), Former smoker * PHOSPHORUS BLOOD(Performed 07/28/2023) Performed for Pre-transplant evaluation for kidney transplant, Type 2 diabetes mellitus with other kidney complication, 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 prison insulin use (HCC), Hypertension, unspecified type, Atrial fibrillation, unspecified type (HCC), Neuropathy, Hyperlipidemia, unspecified hyperlipidemia type, Stage 4 chronic kidney disease (HCC), Former smoker * IRON BLOOD(Performed 07/28/2023) Performed for Pre-transplant evaluation for kidney transplant, Type 2 diabetes mellitus with other kidney complication, 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 vp care management insulin use (HCC), Hypertension, unspecified type, Atrial fibrillation, unspecified type (HCC), Neuropathy, Hyperlipidemia, unspecified hyperlipidemia type, Stage 4 chronic kidney disease (HCC), Former smoker * FERRITIN(Performed 07/28/2023) Performed for Pre-transplant evaluation for kidney transplant, Type 2 diabetes mellitus with other kidney complication, 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 vp care management insulin use (HCC), Hypertension, unspecified type, Atrial fibrillation, unspecified type (HCC), Neuropathy, Hyperlipidemia, unspecified hyperlipidemia type, Stage 4 chronic kidney disease (HCC), Former smoker * TRANSFERRIN(Performed 07/28/2023) Performed for Pre-transplant evaluation for kidney transplant, Type 2 diabetes mellitus with other kidney complication, 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 vp care management insulin use (HCC), Hypertension, unspecified type, Atrial fibrillation, unspecified type (HCC), Neuropathy, Hyperlipidemia, unspecified hyperlipidemia type, Stage 4 chronic kidney disease (HCC), Former smoker * VITAMIN D 25-HYDROXY(Performed 07/28/2023) Performed for Pre-transplant evaluation for kidney transplant, Type 2 diabetes mellitus with other kidney complication, 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 vp care management insulin use (HCC), Hypertension, unspecified type, Atrial fibrillation, unspecified type (HCC), Neuropathy, Hyperlipidemia, unspecified hyperlipidemia type, Stage 4 chronic kidney disease (HCC), Former smoker * URIC ACID BLOOD(Performed 07/28/2023) Performed for Pre-transplant evaluation for kidney transplant, Type 2 diabetes mellitus with other kidney complication, 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 vp care management insulin use (HCC), Hypertension, unspecified type, Atrial fibrillation, unspecified type (HCC), Neuropathy, Hyperlipidemia, unspecified hyperlipidemia type, Stage 4 chronic kidney disease (HCC), Former smoker * COMPREHENSIVE METABOLIC PANEL(Performed 07/28/2023) Performed for Pre-transplant evaluation for kidney transplant, Type 2 diabetes mellitus with other kidney complication, 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 vp care management insulin use (HCC), Hypertension, unspecified type, Atrial fibrillation, unspecified type (HCC), Neuropathy, Hyperlipidemia, unspecified hyperlipidemia type, Stage 4 chronic kidney disease (HCC), Former smoker * CBC W AUTO DIFFERENTIAL(Performed 07/28/2023) Performed for Pre-transplant evaluation for kidney transplant, Type 2 diabetes mellitus with other kidney complication, 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 vp care management insulin use (HCC), Hypertension, unspecified type, Atrial fibrillation, unspecified type (HCC), Neuropathy, Hyperlipidemia, unspecified hyperlipidemia type, Stage 4 chronic kidney disease (HCC), Former smoker * CT CHEST ABDOMEN PELVIS WO CONT(Performed 07/28/2023) Performed for Pre-transplant evaluation for kidney transplant, Type 2 diabetes mellitus with other kidney complication, 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 vp care management insulin use (HCC), Hypertension, unspecified type, Atrial fibrillation, unspecified type (HCC), Neuropathy, Hyperlipidemia, unspecified hyperlipidemia type, Stage 4 chronic kidney disease (HCC), Former smoker * XR PANOREX(Performed 07/28/2023) Performed for Pre-transplant evaluation for kidney transplant, Type 2 diabetes mellitus with other kidney complication, 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 vp care management insulin use (HCC), Hypertension, unspecified type, Atrial fibrillation, unspecified type (HCC), Neuropathy, Hyperlipidemia, unspecified hyperlipidemia type, Stage 4 chronic kidney disease (HCC), Former smoker * XR CHEST 2VW(Performed 07/28/2023) Performed for Pre-transplant evaluation for kidney transplant, Type 2 diabetes mellitus with other kidney complication, 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 prison insulin use (HCC), Hypertension, unspecified type, Atrial fibrillation, unspecified type (HCC), Neuropathy, Hyperlipidemia, unspecified hyperlipidemia type, Stage 4 chronic kidney disease (HCC), Former smoker * VAS ARTERIAL MULTILEVEL LE(Performed 07/28/2023) Performed for Pre-transplant evaluation for kidney transplant, Type 2 diabetes mellitus with other kidney complication, 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 prison insulin use (HCC), Hypertension, unspecified type, Atrial fibrillation, unspecified type (HCC), Neuropathy, Hyperlipidemia, unspecified hyperlipidemia type, Stage 4 chronic kidney disease (HCC), Former smoker * EKG 12-LEAD(Performed 07/28/2023) Performed for Pre-transplant evaluation for kidney transplant, Type 2 diabetes mellitus with other kidney complication, 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 prison insulin use (HCC), Hypertension, unspecified type, Atrial fibrillation, unspecified type (HCC), Neuropathy, Hyperlipidemia, unspecified hyperlipidemia type, Stage 4 chronic kidney disease (HCC), Former smoker * ECHO COMPLETE W CONTRAST(Performed 07/28/2023) Performed for Pre-transplant evaluation for kidney transplant, Type 2 diabetes mellitus with other kidney complication, 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 vp care management insulin use (HCC), Hypertension, unspecified type, Atrial fibrillation, unspecified type (HCC), Neuropathy, Hyperlipidemia, unspecified hyperlipidemia type, Stage 4 chronic kidney disease (HCC), Former smoker * CARDIAC PROCEDURE ORDER(Performed 02/04/2020) * CARDIAC EKG ORDER(Performed 02/04/2020) * GLUCOSE - POINT OF CARE(Performed 02/03/2020) * BASIC METABOLIC PANEL (CALCIUM TOTAL)(Performed 02/03/2020) * GLUCOSE - POINT OF CARE(Performed 02/03/2020) * GLUCOSE - POINT OF CARE(Performed 02/03/2020) * PT-INR SL[facility](Performed 02/03/2020) * PHOSPHORUS BLOOD(Performed 02/03/2020) * MAGNESIUM BLOOD(Performed 02/03/2020) * CBC W AUTO DIFFERENTIAL(Performed 02/03/2020) * GLUCOSE - POINT OF CARE(Performed 02/02/2020) * GLUCOSE - POINT OF CARE(Performed 02/02/2020) * GLUCOSE - POINT OF CARE(Performed 02/02/2020) * BASIC METABOLIC PANEL (CALCIUM TOTAL)(Performed 02/02/2020) * GLUCOSE - POINT OF CARE(Performed 02/02/2020) * GLUCOSE - POINT OF CARE(Performed 02/02/2020) * BASIC METABOLIC PANEL (CALCIUM TOTAL)(Performed 02/02/2020) * EKG 12-LEAD(Performed 02/02/2020) Performed for Intestinal adhesions with complete obstruction (HCC) * GLUCOSE - POINT OF CARE(Performed 02/02/2020) * PT-INR [facility](Performed 02/02/2020) * PHOSPHORUS BLOOD(Performed 02/02/2020) * MAGNESIUM BLOOD(Performed 02/02/2020) * CBC W AUTO DIFFERENTIAL(Performed 02/02/2020) * GLUCOSE - POINT OF CARE(Performed 02/02/2020) * GLUCOSE - POINT OF CARE(Performed 02/01/2020) * GLUCOSE - POINT OF CARE(Performed 02/01/2020) * URINALYSIS W/MICROSCOPIC NO CULTURE(Performed 02/01/2020) * BASIC METABOLIC PANEL (CALCIUM TOTAL)(Performed 02/01/2020) * GLUCOSE - POINT OF CARE(Performed 02/01/2020) * GLUCOSE - POINT OF CARE(Performed 02/01/2020) * XR CHEST 1VW PORTABLE(Performed 02/01/2020) Performed for Intestinal adhesions with complete obstruction (HCC) * GLUCOSE - POINT OF CARE(Performed 02/01/2020) * GLUCOSE - POINT OF CARE(Performed 02/01/2020) * COMPREHENSIVE METABOLIC PANEL(Performed 02/01/2020) * GLUCOSE - POINT OF CARE(Performed 01/31/2020) * PT-INR [facility](Performed 01/31/2020) * PHOSPHORUS BLOOD(Performed 01/31/2020) * MAGNESIUM BLOOD(Performed 01/31/2020) * CBC W AUTO DIFFERENTIAL(Performed 01/31/2020) * GLUCOSE - POINT OF CARE(Performed 01/31/2020) * GLUCOSE - POINT OF CARE(Performed 01/31/2020) * GLUCOSE - POINT OF CARE(Performed 01/31/2020) * BASIC METABOLIC PANEL (CALCIUM TOTAL)(Performed 01/31/2020) * GLUCOSE - POINT OF CARE(Performed 01/31/2020) * GLUCOSE - POINT OF CARE(Performed 01/31/2020) * XR ABDOMEN KUB PORTABLE(Performed 01/31/2020) Performed for Intestinal adhesions with complete obstruction (HCC) * DIFFERENTIAL MANUAL(Performed 01/30/2020) * PT-INR [facility](Performed 01/30/2020) * PHOSPHORUS BLOOD(Performed 01/30/2020) * MAGNESIUM BLOOD(Performed 01/30/2020) * CBC W AUTO DIFFERENTIAL(Performed 01/30/2020) * COMPREHENSIVE METABOLIC PANEL(Performed 01/30/2020) * GLUCOSE - POINT OF CARE(Performed 01/30/2020) * PROCEDURE NOT LISTED(Performed 01/30/2020) Performed for Post-op pain * GLUCOSE - POINT OF CARE(Performed 01/30/2020) * GLUCOSE - POINT OF CARE(Performed 01/30/2020) * XR ABDOMEN KUB PORTABLE(Performed 01/30/2020) Performed for Intestinal adhesions with complete obstruction (HCC) * PERIPHERAL BLOCK(Performed 01/30/2020) * GLUCOSE - POINT OF CARE(Performed 01/30/2020) * PROTEIN URINE RANDOM QUANTITATIVE(Performed 01/30/2020) * CREATININE URINE RANDOM(Performed 01/30/2020) * UREA NITROGEN URINE RANDOM(Performed 01/30/2020) * CHLORIDE URINE RANDOM(Performed 01/30/2020) * POTASSIUM URINE RANDOM(Performed 01/30/2020) * SODIUM URINE RANDOM(Performed 01/30/2020) * URINALYSIS W/MICROSCOPIC NO CULTURE(Performed 01/30/2020) * GLUCOSE - POINT OF CARE(Performed 01/30/2020) * GLUCOSE - POINT OF CARE(Performed 01/30/2020) * HEMOGLOBIN A1C(Performed 01/30/2020) * DIFFERENTIAL MANUAL(Performed 01/30/2020) * BASIC METABOLIC PANEL (CALCIUM TOTAL)(Performed 01/30/2020) * PT-INR [facility](Performed 01/30/2020) * PHOSPHORUS BLOOD(Performed 01/30/2020) * MAGNESIUM BLOOD(Performed 01/30/2020) * CBC W AUTO DIFFERENTIAL(Performed 01/30/2020) * COMPREHENSIVE METABOLIC PANEL(Performed 01/30/2020) * GLUCOSE - POINT OF CARE(Performed 01/29/2020) * GLUCOSE - POINT OF CARE(Performed 01/29/2020) * BASIC METABOLIC PANEL (CALCIUM TOTAL)(Performed 01/29/2020) * GLUCOSE - POINT OF CARE(Performed 01/29/2020) * GLUCOSE - POINT OF CARE(Performed 01/29/2020) * EKG 12-LEAD(Performed 01/29/2020) Performed for Stage 4 chronic kidney disease (HCC) * BASIC METABOLIC PANEL (CALCIUM TOTAL)(Performed 01/29/2020) * GLUCOSE - POINT OF CARE(Performed 01/29/2020) * GLUCOSE - POINT OF CARE(Performed 01/29/2020) * CARDIAC EKG ORDER(Performed 01/29/2020) * GLUCOSE - POINT OF CARE(Performed 01/28/2020) * PHOSPHORUS BLOOD(Performed 01/28/2020) * MAGNESIUM BLOOD(Performed 01/28/2020) * COMPREHENSIVE METABOLIC PANEL(Performed 01/28/2020) * PT-INR SL[facility](Performed 01/28/2020) * CBC W AUTO DIFFERENTIAL(Performed 01/28/2020) * GLUCOSE - POINT OF CARE(Performed 01/28/2020) * ENDOTRACHEAL TUBE NOTE(Performed 01/28/2020) * WA EXPLORATORY OF ABDOMEN(Performed 01/28/2020) Performed for Intestinal obstruction, unspecified cause, 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 partial or complete (HCC) * GLUCOSE - POINT OF CARE(Performed 01/28/2020) * GLUCOSE - POINT OF CARE(Performed 01/28/2020) * XR ABDOMEN KUB PORTABLE(Performed 01/28/2020) Performed for Abdominal pain, generalized * EKG 12-LEAD(Performed 01/28/2020) Performed for Abdominal pain, generalized * PREPARE RBC LEUKOREDUCED UNIT(Performed 01/28/2020) Performed for Abdominal pain, generalized * TYPE + SCREEN PANEL(Performed 01/28/2020) * TROPONIN I(Performed 01/28/2020) * LACTIC ACID BLOOD(Performed 01/28/2020) * PT-INR [facility](Performed 01/28/2020) * COMPREHENSIVE METABOLIC PANEL(Performed 01/28/2020) * CBC W AUTO DIFFERENTIAL(Performed 01/28/2020) * XR CHEST 1VW PORTABLE(Performed 01/28/2020) Performed for Abdominal pain, generalized * MRI CARDIAC STUDY WO CONTRAST(Performed 01/21/2019) Performed for Atrial fibrillation, persistent (HCC) * CREATININE BLOOD - POCT (IP) [facility](Performed 01/21/2019) Performed for Atrial fibrillation, persistent (HCC) Results * [place] LIVER ELASTOGRAPHY (11/18/2024 10:22 AM [facility]) Narrative Dell Mcmillan MD - 11/18/2024 10:22 AM [facility] Dell Mcmillan MD 11/21/2024 4:11 PM Diagnosis: [...] cirrhosis-related complications over the next 3-5 years (Bomiguelier, 2022). Liver stiffness > 20 kPa is also associated with a high probability of complications of portal hypertension including varices and ascites. Liver stiffness > 50 kPa is associated with a high risk of variceal bleeding. These interpretations are based on the following published data: Whit J, Hagstr m H, Ekstkatherinet M, Michael C, Bonacci M, Cure S, Ampuero J, Nasr P, Tallab L, Canivet CM, Kechagias S, S nchez Y, Dincuff E, Mitra A, Jose Angel M, Devan J, Shahram A and Andre-Abran M. Non-invasive tests accurately stratify patients with NAFLD based on their risk of liver-related events. J Hepatol (2021) 76: 5963-2363. Kelly VALDEZ, Luis M, Aliza M, et al. Accuracy of FibroScan controlled attenuation parameter and liver stiffness measurement in assessing steatosis and fibrosis in patients with nonalcoholic fatty liver disease. Gastroenterology 2019;156:1192-1989. Jose MS, Kev R, Van Vickey ML, et al. Vibration-controlled transient elastography to [...] These include the FAST (Fibroscan-AST) score (Ashley, 202) and the Agile3+ and Agile4 scores (Sheldon, 202; Cindy, 202). Ashley TA, Dallas Hurd ML, Shayne M, Rojelio A, et al. Validation of the accuracy of the FAST score for detecting patients with at-risk nonalcoholic steatohepatitis (MARTIN) in a [place] cohort and comparison to other non-invasive algorithms. PLoS ONE (2021) 17: [id number]. Sheldon AJ, James J, Ted ZM, et al. Enhanced diagnosis of advanced fibrosis and cirrhosis in individuals with NAFLD using FibroScan-based Agile scores. J Hepatol (2022) 78: 247-259. Cindy et al. Vibration-controlled transient elastography scores to predict liver-related events in steatotic liver disease. OLIVIA (2023) 331: 4362-0700 Fibroscan LSM can also be used with laboratory parameters without formulas to assess prognosis. According to the Baveno-VII criteria (Dave, 2021), Fibroscan LSM <=15 kPa plus a platelet count of >=117m856/L rules out clinically significant portal hypertension (sensitivity and negative predictive value >90%) in patients with compensated advanced chronic liver disease. Dave R, Valerio J, Devyn-Cinda G, Repaola T, Hal C on behalf of the Baveno VII Faculty. Baveno VII--Renewing consensus in portal hypertension. J Hepatol (2021) 76: 959-974 Assessing the likelihood of advanced fibrosis in patients with intermediate liver stiffness measurement (LSM) by Fibroscan (e.g., 8-15 kPa) can be improved by also calculating the FIB-4 score (Jesus et al. Hepat[employer] Communications 2019;3:4221-2623) or NAFLD Fibrosis score (Santa et al. Clinical Gastroenterology and Hepatology 2019;17:1117-4014 using routine clinical data. Notes: 1. Fibroscan [...] additional interpretive data was last updated 10/14/24.) [email or web address] Ban Alfaro MD PROCEDURE/MINOR SURGICAL ORDERABLES * US RETROPERITONEAL COMPLETE (08/22/2024 8:00 AM [facility]) Anatomical Region Laterality Modality Abdomen Ultrasound 08/22/2024 1:36 PM [facility] Impressions 08/23/2024 8:49 AM [facility] IMPRESSION: 1.Increased renal echogenicity is consistent with chronic parenchymal disease. 2.No evidence of nephrolithiasis, hydronephrosis, or solid renal mass. > Dictated by Hasaan Gavin, MD I, aRoul Coy MD have personally reviewed and interpreted this examination/study. > Interpreting Provider: Raoul Coy MD on 08/23/2024 8:49 AM Narrative 08/23/2024 8:49 AM [facility] PROCEDURE: US RETROPERITONEAL COMPLETE, DATE/TIME OF EXAM: 08/22/2024 10:45 AM, LOCATION [facility] INDICATION: Z76.82: Pre-kidney transplant, listed N18.6: ESRD (end stage renal disease) (HCC) 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) I10: Hypertension, unspecified type I48.91: Atrial fibrillation, unspecified type (HCC) G62.9: Neuropathy G47.33: JONAH on CPAP ADDITIONAL CLINICAL INFORMATION: Ordering Provider Reason For Exam: pre kidney txp Technologist Note: Additional: COMPARISON: CT chest abdomen pelvis without contrast from 08/03/2024 FINDINGS: Left kidney: 8.7 x 3.5 x [...] appears normal. Small volume pelvic free fluid. Procedure Note Raoul Coy MD - 08/23/2024 PROCEDURE: US RETROPERITONEAL COMPLETE, DATE/TIME OF EXAM: 08/22/2024 10:45 AM, LOCATION [facility] INDICATION: Z76.82: Pre-kidney transplant, listed N18.6: ESRD (end stage renal disease) (HCC) 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) I10: Hypertension, unspecified type I48.91: Atrial fibrillation, unspecified type (HCC) G62.9: Neuropathy G47.33: JONAH on CPAP ADDITIONAL CLINICAL INFORMATION: Ordering Provider Reason For Exam: pre kidney txp Technologist Note: Additional: COMPARISON: CT chest abdomen pelvis without contrast from 08/03/2024 FINDINGS: Left kidney: 8.7 x 3.5 x [...] superior pole 1.0 x 1.0 x 1.1 cmsimple cyst. Blood flow is seen within the renal arteries and veins. Thebladder is distended and appears normal. Small volume pelvic free fluid. IMPRESSION: 1.Increased renal echogenicity is consistent with chronic parenchymal disease. 2.No evidence of nephrolithiasis, hydronephrosis, or solid renal mass. > Dictated by Mary Alonso MD I, Raoul Coy MD have personally reviewed and interpreted this examination/study. > Interpreting Provider: Raoul Coy MD on 48:49 AM Merrick Engel MD ORDERABLES * URINE MICROSCOPIC ONLY REFLEX TO CULTURE (08/05/2024 1:49 PM CDT) Reflex Status Culture not indicated 08/05/2024 2:59 PM [facility] RBC UA 0-2 None Seen, 0-2, 3-5 /HPF 08/05/2024 2:59 PM [facility] WBC UA 0-5 None Seen, 0-5 /HPF 08/05/2024 2:59 PM [facility] Squamous Epithelial Cells UA 0-2 None Seen, 0-2, 3-5 /HPF 08/05/2024 2:59 PM [facility] Urine URINE SPECIMEN OBTAINED BY CLEAN CATCH PROCEDURE / Unknown Collection / Unknown 08/05/2024 1:49 PM CDT 08/05/2024 2:26 PM CDT [facility] - 08/05/2024 2:59 PM CDT Merrick Engel MD LAB - URINALYS IS ORDERABLES [facility] [address] [place] [address], [place] [phone] * (ABNORMAL) URINALYSIS REFLEX MICROSCOPIC REFLEX CULTURE (08/05/2024 1:49 PM CDT) Color UA Yellow Straw, Yellow 08/05/2024 2:59 PM CDT [facility] Clarity UA Clear Clear 08/05/2024 2:59 PM CDT [facility] Specific [place] UA 1.015 1.005 - 1.030 08/05/2024 2:59 PM CDT [facility] pH UA 7.0 5.0 - 8.0 pH 08/05/2024 2:59 PM CDT [facility] Protein UA 2+(A) Negative 08/05/2024 2:59 PM CDT [facility] Glucose UA Negative Negative 08/05/2024 2:59 PM CDT [facility] Ketone UA Negative Negative 08/05/2024 2:59 PM CDT [facility] Bilirubin UA Negative Negative 08/05/2024 2:59 PM CDT [facility] Blood UA Trace(A) Negative 08/05/2024 2:59 PM CDT [facility] Nitrite UA Negative Negative 08/05/2024 2:59 PM CDT [facility] Leukocyte Esterase Negative Negative 08/05/2024 2:59 PM CDT [facility] Urobilinogen UA Negative Negative mg/dL 08/05/2024 2:59 PM CDT [facility] Urine URINE SPECIMEN OBTAINED BY CLEAN CATCH PROCEDURE / Unknown Collection / Unknown 08/05/2024 1:49 PM CDT 08/05/2024 2:26 PM CDT Narrative Authorizing Provider Result Renetta Engel MD LAB - URINALYS IS ORDERABLES [facility] [address] [place] [address], [place] [phone] * PROTEIN URINE RANDOM QUANTITATIVE (08/05/2024 1:49 PM CDT) Only the most recent of3 resultswithin the time period is included. Protein Urine 103 Not Established mg/dL 08/05/2024 2:59 PM CDT [facility] Urine URINE SPECIMEN OBTAINED BY CLEAN CATCH PROCEDURE / Unknown Collection / Unknown 08/05/2024 1:49 PM CDT 08/05/2024 2:27 PM CDT Merrick Engel MD LAB - URINE CH EMISTRY ORDERABLES [facility] [address] [place] [address], [place] [phone] * CREATININE URINE RANDOM (08/05/2024 1:49 PM CDT) Only the most recent of3 resultswithin the time period is included. Creatinine Urine 175.95 Not Established mg/dL 08/05/2024 2:59 PM CDT [facility] Urine URINE SPECIMEN OBTAINED BY CLEAN CATCH PROCEDURE / Unknown Collection / Unknown 08/05/2024 1:49 PM CDT 08/05/2024 2:27 PM CDT Merrick Engel MD LAB - URINE CH EMISTRY ORDERABLES [facility] [address] [place] [address], [place] [phone] * (ABNORMAL) PTH INTACT W/O CALCIUM (08/05/2024 1:41 PM CDT) Only the most recent of2 resultswithin the time period is included. PTH Intact 530.2(H) 8.0 - 77.0 pg/mL 08/05/2024 3:01 PM CDT [facility] Blood BLOOD SPECIMEN / Unknown Lab Venipuncture / Unknown 08/05/2024 1:41 PM CDT 08/05/2024 2:29 PM CDT Merrick Engel MD LAB - CHEMISTR Y ORDERABLES Performing Organization Address City/[facility]/ZIP Co de Phone Number [address] [address], [place] [phone] * URIC ACID BLOOD (08/05/2024 1:41 PM CDT) Only the most recent of2 resultswithin the time period is included. Uric Acid 3.5 3.5 - 7.2 mg/dL 08/05/2024 2:58 PM CDT [facility] Blood BLOOD SPECIMEN / Unknown Lab Venipuncture / Unknown 08/05/2024 1:41 PM CDT 08/05/2024 2:29 PM CDT Merrick Engel MD LAB - CHEMISTR Y ORDERABLES Performing Organization Address City/[facility]/ZIP Co de Phone Number [address] [address], [place] [phone] * (ABNORMAL) TRANSFERRIN (08/05/2024 1:41 PM CDT) Only the most recent of2 resultswithin the time period is included. Transferrin 164(L) 174 - 382 mg/dL 08/05/2024 3:02 PM CDT [facility] Blood BLOOD SPECIMEN / Unknown Lab Venipuncture / Unknown 08/05/2024 1:41 PM CDT 08/05/2024 2:24 PM CDT Merrick Engel MD LAB - CHEMISTR Y ORDERABLES Performing Organization Address City/[facility]/ZIP Co de Phone Number [address] [address], [place] [phone] * (ABNORMAL) VITAMIN D 25-HYDROXY (08/05/2024 1:41 PM CDT) Only the most recent of2 resultswithin the time period is included. Vitamin D, 25 Hydroxy 29.6(L) 30.0 - 80.0 ng/mL 08/05/2024 3:16 PM CDT [facility] Comment: The recommendations for 25-Hydroxy Vitamin D clinical decision points are as follows: Deficient: <20.0 ng/mL Insufficient: 20.0 - 29.9 ng/mL Sufficient: 30.0 - 100.0 ng/mL Potential Toxicity: >100 ng/mL Reference: The Endocrine Society Clinical Practice Guidelines. 2011 If the 25-Hydroxy Vitamin D results are inconsitent with clinical evidence, it is recommended that follow-up testing using a method such as LC/MS/MS be performed to confirm the result. Blood BLOOD SPECIMEN / Unknown Lab Venipuncture / Unknown 08/05/2024 1:41 PM CDT 08/05/2024 2:29 PM CDT Merrick Engel MD LAB - CHEMISTR Y ORDERABLES [address] [address], [place] [phone] * (ABNORMAL) CBC W AUTO DIFFERENTIAL (08/05/2024 1:41 PM CDT) Only the most recent of9 resultswithin the time period is included. WBC 7.0 4.0 - 10.7 x10E9/L 08/05/2024 2:36 PM [facility] RBC Count 3.20(L) 4.30 - 5.80 x10E12/L 08/05/2024 2:36 PM [facility] Hemoglobin 10.0(L) 13.3 - 17.5 g/dL 08/05/2024 2:36 PM [facility] Hematocrit 30.0(L) 38.7 - 51.1 % 08/05/2024 2:36 PM [facility] MCV 93.8 80.0 - 98.0 fL 08/05/2024 2:36 PM T [facility] MCH 31.3 26.7 - 33.6 pg 08/05/2024 2:36 PM T [facility] MCHC 33.3 31.7 - 36.3 g/dL 08/05/2024 2:36 PM [facility] RDW-CV 13.2 11.3 - 14.8 % 08/05/2024 2:36 PM [facility] Platelet Count 227 150 - 420 x10E9/L 08/05/2024 2:36 PM [facility] MPV 10.7 7.8 - 11.4 fL 08/05/2024 2:36 PM [facility] Neutrophil % 63.9 41.0 - 74.0 % 08/05/2024 2:36 PM [facility] Lymphocyte % 23.4 17.0 - 47.0 % 08/05/2024 2:36 PM [facility] Monocyte % 6.7 3.0 - 11.0 % 08/05/2024 2:36 PM [facility] Eosinophil % 5.3 0.0 - 7.0 % 08/05/2024 2:36 PM [facility] Basophil % 0.3 0.0 - 1.6 % 08/05/2024 2:36 PM [facility] Immature Granulocytes % 0.4 0.0 - 1.0 % 08/05/2024 2:36 PM [facility] Neutrophil Absolute 4.46 1.60 - 7.50 x10E9/L 08/05/2024 2:36 PM [facility] Lymphocyte Absolute 1.63 1.00 - 4.40 x10E9/L 08/05/2024 2:36 PM [facility] Monocyte Absolute 0.47 0.15 - 1.00 x10E9/L 08/05/2024 2:36 PM [facility] Eosinophil Absolute 0.37 0.00 - 0.60 x10E9/L 08/05/2024 2:36 PM [facility] Basophil Absolute 0.02 0.00 - 0.13 x10E9/L 08/05/2024 2:36 PM [facility] Blood BLOOD SPECIMEN / Unknown Lab Venipuncture / Unknown 08/05/2024 1:41 PM CDT 08/05/2024 2:29 PM CDT Merrick Engel MD LAB - HEMATOLO GY ORDERABLES [facility] [address] [place] [address], [place] [phone] * (ABNORMAL) COMPREHENSIVE METABOLIC PANEL (08/05/2024 1:41 PM CDT) Only the most recent of7 resultswithin the time period is included. BUN 44(H) 7 - 26 mg/dL 08/05/2024 2:58 PM [facility] Creatinine 8.04(H) 0.71 - 1.16 mg/dL 08/05/2024 2:58 PM [facility] Sodium 142 136 - 145 mmol/L 08/05/2024 2:58 PM [facility] Potassium 4.8(H) 3.5 - 4.5 mmol/L 08/05/2024 2:58 PM [facility] Chloride 109(H) 98 - 107 mmol/L 08/05/2024 2:58 PM [facility] CO2 21(L) 22 - 29 mmol/L 08/05/2024 2:58 PM [facility] Glucose 71 70 - 99 mg/dL 08/05/2024 2:58 PM [facility] Calcium 9.0 8.4 - 10.2 mg/dL 08/05/2024 2:58 PM [facility] Protein Total 7.2 6.0 - 8.3 g/dL 08/05/2024 2:58 PM [facility] Albumin 3.7 3.4 - 5.0 g/dL 08/05/2024 2:58 PM [facility] Bilirubin Total 0.4 0.2 - 1.2 mg/dL 08/05/2024 2:58 PM [facility] Alkaline Phosphatase 97 40 - 150 U/L 08/05/2024 2:58 PM [facility] ALT 27 5 - 55 U/L 08/05/2024 2:58 PM [facility] AST 16 5 - 34 U/L 08/05/2024 2:58 PM [facility] Anion Gap 12 6 - 16 08/05/2024 2:58 PM CDT [facility] BUN/Creatinine Ratio 5(L) 7 - 23 08/05/2024 2:58 PM CDT [facility] Osmolality Calculated 304(H) 275 - 295 mOsm/kg 08/05/2024 2:58 PM CDT [facility] Albumin/Globulin Ratio 1.1 1.1 - 2.3 08/05/2024 2:58 PM CDT [facility] eGFR by CKD-EPI 7(L) >=90 mL/min/1.7 3 m2 08/05/2024 2:58 PM CDT [facility] Blood BLOOD SPECIMEN / Unknown Lab Venipuncture / Unknown 08/05/2024 1:41 PM CDT 08/05/2024 2:29 PM CDT Merrick Engel MD LAB - CHEMISTR Y ORDERABLES Performing Organization Address City/[facility]/ZIP Co de Phone Number [address] [address], [place] [phone] * PHOSPHORUS BLOOD (08/05/2024 1:41 PM CDT) Only the most recent of8 resultswithin the time period is included. Phosphorus 2.9 2.8 - 5.1 mg/dL 08/05/2024 2:58 PM CDT [facility] Blood BLOOD SPECIMEN / Unknown Lab Venipuncture / Unknown 08/05/2024 1:41 PM CDT 08/05/2024 2:29 PM CDT Merrick Engel MD LAB - CHEMISTR Y ORDERABLES [address] [address], [place] [phone] * IRON BLOOD (08/05/2024 1:41 PM CDT) Only the most recent of2 resultswithin the time period is included. Iron 72 50 - 175 ug/dL 08/05/2024 3:02 PM CDT [facility] Blood BLOOD SPECIMEN / Unknown Lab Venipuncture / Unknown 08/05/2024 1:41 PM CDT 08/05/2024 2:24 PM CDT Merrick Engel MD LAB - CHEMISTR Y ORDERABLES Performing Organization Address City/[facility]/ZIP Co de Phone Number [facility] [address] [place] [address], [place] [phone] * (ABNORMAL) FERRITIN (08/05/2024 1:41 PM CDT) Only the most recent of2 resultswithin the time period is included. Ferritin 615(H) 22 - 275 ng/mL 08/05/2024 3:20 PM CDT [facility] Blood BLOOD SPECIMEN / Unknown Lab Venipuncture / Unknown 08/05/2024 1:41 PM CDT 08/05/2024 2:24 PM CDT Merrick Engel MD LAB - CHEMISTR Y ORDERABLES Performing Organization Address City/[facility]/ZIP Co de Phone Number [facility] [address] [place] [address], [place] [phone] * COCAINE METABOLITE QUANT (08/05/2024 1:40 PM CDT) Only the most recent of2 resultswithin the time period is included. Cocaine and Metabolite Blood <20 ng/mL 08/08/2024 3:42 PM CDT [facility] ([facility]) Comment: INTERPRETIVE INFORMATION: Cocaine Metabolite, Serum or Plasma, Quantitative Methodology: Quantitative Liquid Chromatography-Tandem Mass Spectrometry Positive cutoff: 20 ng/mL For medical purposes only; not valid for forensic use. The concentration value must be greater than or equal to the cutoff to be reported as positive. Interpretive questions should be directed to the laboratory. This test was developed and its performance characteristics determined by [employer]. It has not been cleared or approved by the US Food and Drug Administration. This test was performed in a CLIA certified laboratory and is intended for clinical purposes. Performed By: [employer] [address] [place] [address] Virtualization Engineer: Matias Randall MD, PhD CLIA Number: [id number] Blood BLOOD SPECIMEN / Unknown Lab Venipuncture / Unknown 08/05/2024 1:40 PM CDT 08/05/2024 2:24 PM CDT Merrick Engel MD LAB - CHEMISTR Y ORDERABLES Performing Organization Address City/[facility] Co de Phone Number [facility]) [address] * SYPHILIS ANTIBODY CASCADING REFLEX (08/05/2024 1:40 PM CDT) Only the most recent of2 resultswithin the time period is included. Pathologist [facility] Treponema pallidum Antibody Non-react xavier Non-react xavier 08/05/2024 3:18 PM CDT [facility] Comment: No Laboratory evidence of syphilis infection. Note: Circulating antibodies may be low or undetectable in early infection. If recent exposure is suspected, re-draw sample in 2-4 weeks and repeat testing. Blood BLOOD SPECIMEN / Unknown Lab Venipuncture / Unknown 08/05/2024 1:40 PM CDT 08/05/2024 2:24 PM CDT Merrick Engel MD LAB - SEROLOGY ORDERABLES Performing Organization Address [facility] Co de Phone Number [facility] [address] [place] [address], [place] [phone] * AMPHETAMINE BLOOD CONFIRMATION (08/05/2024 1:40 PM CDT) Only the most recent of2 resultswithin the time period is included. Pathologist [facility] Amphetamines Confirmation <20 ng/mL 08/10/2024 11:21 PM CDT [facility] ([facility]) Comment: INTERPRETIVE INFORMATION: Amphetamines, Serum or Plasma, Quantitative Methodology: Quantitative Liquid Chromatography-Tandem Mass Spectrometry Positive cutoff: 20 ng/mL For medical purposes only; not valid for forensic use. The absence of expected drug(s) and/or drug metabolite(s) may indicate non-compliance, inappropriate timing of specimen collection relative to drug administration, poor drug absorption, or limitations of testing. The concentration value must be greater than or equal to the cutoff to be reported as positive. Interpretive questions should be directed to the laboratory. This test was developed and its performance characteristics determined by [employer]. It has not been cleared or approved by the US Food and Drug Administration. This test was performed in a CLIA certified laboratory and is intended for clinical purposes. Methamphetamine Confirmation <20 ng/mL 08/10/2024 11:21 PM CDT [facility] ([facility]) MDA Confirmation <20 ng/mL 08/10/20 24 11:21 PM CDT [facility]) MDMA Confirm <20 ng/mL 08/10/2024 11:21 PM CDT [facility]) MDEA Confirmation <20 ng/mL 024 11:21 PM CDT [facility]) Comment: Performed By: [employer] [address] [place] [address] Virtualization Engineer: Matias Randall MD, PhD CLIA Number: [id number] Blood BLOOD SPECIMEN / Unknown Lab Venipuncture / Unknown 08/05/2024 1:40 PM CDT 08/05/2024 2:24 PM CDT Merrick Engel MD LAB - CHEMISTR Y ORDERABLES [facility]) [address] [place] [address], [place] * QUANTIFERON-TB GOLD PLUS 4-TUBE (08/05/2024 1:40 PM CDT) Only the most recent of2 resultswithin the time period is included. QuantiFERON Mitogen Minus NIL 9.92 IU/mL 08/10/2024 12:43 AM CDT [facility]) QuantiFERON Nil Value 0.08 IU/mL 08/10/2024 12:43 AM CDT [facility]) QuantiFERON Plus TB1 Minus NIL 0.00 <=0.34 IU/mL 08/10/2024 12:43 AM CDT [facility] ([facility]) QuantiFERON Plus TB2 Minus NIL 0.00 <=0.34 IU/mL 08/10/2024 12:43 AM CDT [facility] ([facility]) QuantiFERON-TB Gold Plus Negative Negative 08/10/2024 12:43 AM CDT [facility]) Comment: INTERPRETIVE INFORMATION:Quantiferon TB Gold Plus Interferon gamma release is measured for specimens from each of the four collection tubes. A qualitative result (Negative, Positive, or Indeterminate) is based on interpretation of the four values: NIL, MITOGEN minus NIL (MITOGEN-NIL), TB1 minus NIL (TB1-NIL), and TB2 minus NIL (TB2-NIL). The NIL value represents nonspecific reactivity produced by the patient specimen. The MITOGEN-NIL value serves as the positive control for the patient specimen, demonstrating successful lymphocyte activity. The TB1-NIL tube specifically detects CD4+ lymphocyte reactivity, specifically stimulated by the TB1 antigens. The TB2-NIL tube detects both CD4+ and CD8+ lymphocyte reactivity, stimulated by TB2 antigens. An overall Negative result does not completely rule out TB infection. A false-positive result in the absence of other clinical evidence of TB infection is not uncommon. Refer to: Updated Guidelines for Using Interferon Gamma Release Assays to Detect Mycobacterium tuberculosis Infection -- [place], 2010 (http://www.cdc.gov/mmwr/preview/mmwrhtml/an2539u0.htm), for more information concerning test performance in low-prevalence populations and use in occupational screening. Performed By: [employer] [address] [place] [address] Virtualization Engineer: Matias Randall MD, PhD CLIA Number: [id number] Blood BLOOD SPECIMEN / Unknown Lab Venipuncture / Unknown 08/05/2024 1:40 PM CDT 08/05/2024 2:25 PM CDT Merrick Engel MD LAB - CHEMISTR Y ORDERABLES [employer] [facility]) [address] [place] [address], [place] * HIV-1 HIV-2 ANTIBODY + HIV P24 AG PANEL (08/05/2024 1:40 PM CDT) Only the most recent of2 resultswithin the time period is included. Pathologist [facility] HIV Antigen/Antibod y 1 & 2 Non-reacti ve Non-react xavier 08/05/2024 3:18 PM CDT [facility] Comment:No Laboratory eviden ce of HIV infection. Blood BLOOD SPECIMEN / Unknown Lab Venipuncture / Unknown 08/05/2024 1:40 PM CDT 08/05/2024 2:24 PM CDT Merrick Engel MD LAB - CHEMISTR Y ORDERABLES [facility] [address] [place] [address], [place] [phone] * OPIATES BLOOD (08/05/2024 1:40 PM CDT) Only the most recent of2 resultswithin the time period is included. Pathologist [facility] Opiates Screen Negative 08/10/2024 5:09 PM CDT [facility] ([facility]) Comment:REFERENCE RANGE: thr shold: 10 ng/mL Oxycodone Screen Negative 08/10/20 5:09 PM CDT [facility] ([facility]) Comment:REFERENCE RANGE: thr shold: 10 ng/mL Specimen Type Comment 08/10/2024 5:09 PM CDT [facility] ([facility]) Comment: WHOLE BLOOD This specimen was screened by immunoassay at the thresholds listed above. Presumptive positive results have not been confirmed by an alternate method; results are intended for clinical medical purposes. Please contact the laboratory if confirmatory testing is desired. This test was developed and its performance characteristics determined by [facility]. It has not been cleared or approved by the Food and Drug Administration. Blood BLOOD SPECIMEN / Unknown Lab Venipuncture / Unknown 08/05/2024 1:40 PM CDT 08/05/2024 2:25 PM CDT Narrative [facility] ([facility]) - 08/10/2024 5:09 PM CDT Performed at: [facility] [employer] [address] [id number] [employer]: Stephanie Kirkpatrick [facility], Phone: [phone] Merrick Engel MD LAB - CHEMISTR Y ORDERABLES [facility] [address] [place] [address] * STRONGYLOIDES ANTIBODY IGG (08/05/2024 1:40 PM CDT) Only the most recent of2 resultswithin the time period is included. Strongyloides Antibody IgG 0.5 <=0.9 IV 08/09/2024 3:41 AM CDT [facility] [employer] ([facility]) Comment: INTERPRETIVE INFORMATION: Strongyloides Ab, IgG by VERONICA 0.9 IV or less....... Negative - No significant level of Strongyloides IgG antibody detected. 1.0 IV................Equivocal - The Strongyloides IgG antibody result is borderline and therefore inconclusive. Recommend retesting the patient in 2-4 weeks, if clinically indicated. 1.1 IV or greater ... Positive - IgG antibodies to Strongyloides detected, which may suggest current or past infection. False-positive results may occur with prior exposure to other helminth infections. Testing low-prevalence populations may also result in false-positive results. Performed By: [employer] [address] [place] [address] Virtualization Engineer: Matias Randall MD, PhD CLIA Number: [id number] Blood BLOOD SPECIMEN / Unknown Lab Venipuncture / Unknown 08/05/2024 1:40 PM CDT 08/05/2024 2:24 PM CDT Merrick Engel MD LAB - SEROLOGY ORDERABLES [facility] [employer] [facility]) [address] * TOXOPLASMA GONDII ANTIBODY IGG (08/05/2024 1:40 PM CDT) Only the most recent of2 resultswithin the time period is included. Toxoplasma Antibody IgG <3.0 <=8.8 IU/mL 08/07/2024 2:07 AM CDT [facility] ([facility]) Comment: INTERPRETIVE INFORMATION: Toxoplasma Ab, IgG 7.1 IU/mL or less....... Not Detected 7.2-8.7 IU/mL .......... Indeterminate-Repeat testing in 10-14 days may be helpful. 8.8 IU/mL or greater ... Detected The best evidence for current infection is a significant change on two appropriately timed specimens, where both tests are done in the same laboratory at the same time. This test should not be used for blood donor screening, associated re-entry protocols, or for screening Human Cell, Tissues and Cellular and Tissue-Based Products (HCT/P). The magnitude of the measured result is not indicative of the amount of antibody present. Performed By: [facility] [address] [place] [address] Virtualization Engineer: Matias Randall MD, PhD CLIA Number: [id number] Blood BLOOD SPECIMEN / Unknown Lab Venipuncture / Unknown 08/05/2024 1:40 PM CDT 08/05/2024 2:24 PM CDT Merrick Engel MD LAB - CHEMISTR Y ORDERABLES [facility]) [address] [place] [address], [place] * HEMOGLOBIN A1C (08/05/2024 1:40 PM CDT) Only the most recent of3 resultswithin the time period is included. Hemoglobin A1c 5.5 <=5.6 % 08/06/2024 8:52 AM CDT [facility] Estimated Average Glucose 111 mg/dL 08/06/2024 8:52 AM T [facility] Comment: HbA1c Interpretation: Normal : < 5.7% Pre-diabetes: 5.7-6.4% Diabetes: Equal to or greater than 6.5% Test results diagnostic of diabetes should be repeated for confirmation. Treatment target values recommended by ADA and other clinical organizations should be used to evaluate metabolic control in patients. Reference: [place] [employer], Standards of Care in Diabetes [...] Engel MD LAB - CHEMISTR Y ORDERABLES [facility] [address] [place] [address], [place] [phone] * NICOTINE + METABOLITES BLOOD (08/05/2024 1:40 PM CDT) Only the most recent of2 resultswithin the time period is included. [facility] Nicotine <5 ng/mL 08/09/2024 10:18 PM CDT [facility] ([facility]) Comment: INTERPRETIVE INFORMATION: Nicotine and Metabolites, Serum or Plasma, Quantitative Methodology: Quantitative Liquid Chromatography-Tandem Mass Spectrometry Positive cutoff: 5 ng/mL For medical purposes only; not valid for forensic use. This test is designed to evaluate recent use of nicotine-containing products. Passive and active exposure cannot be discriminated definitively, although a cutoff of 10 ng/mL cotinine is frequently used for surgery qualification purposes. For smoking cessation programs or compliance testing, the absence of expected drug(s) and/or drug metabolite(s) may indicate non-compliance, inappropriate timing of specimen collection relative to drug administration, poor drug absorption, or limitations of testing. This test cannot distinguish between use of tobacco and purified nicotine products. The concentration value must be greater than or equal to the cutoff to be reported as positive. This test was developed and its performance characteristics determined by [employer]. It has not been cleared or approved by the US Food and Drug Administration. This test was performed in a CLIA certified laboratory and is intended for clinical purposes. Performed By: [employer] [address] [place] [address] Virtualization Engineer: Matias Randall MD, PhD CLIA Number: [id number] Cotinine <5 ng/mL 08/09/2024 10:18 PM CDT [facility] ([facility]) Blood BLOOD SPECIMEN / Unknown Lab Venipuncture / Unknown 08/05/2024 1:40 PM CDT 08/05/2024 2:24 PM CDT Merrick Engel MD LAB - CHEMISTR Y ORDERABLES [facility]) [address] [place] [id number] * PROSTATE SPECIFIC ANTIGEN SCREEN (08/05/2024 1:40 PM CDT) Only the most recent of2 resultswithin the time period is included. PSA Total 1.1 0.0 - 4.0 ng/mL 08/05/2024 3:15 PM CDT [facility] Blood BLOOD SPECIMEN / Unknown Lab Venipuncture / Unknown 08/05/2024 1:40 PM CDT 08/05/2024 2:29 PM CDT Merrick Engel MD LAB - CHEMISTR Y ORDERABLES [address] [address], [place] [phone] * (ABNORMAL) HEPATITIS B SURFACE ANTIBODY (08/05/2024 1:40 PM CDT) Only the most recent of2 resultswithin the time period is included. Hepatitis B Virus Surface Antibody Reactive( A) Non-react xavier 08/05/2024 3:14 PM CDT [facility] Comment: > 12 mIU/mL Hepatitis B surface Antibody (HBsAb). Reactive for HBsAb - individual is considered immune to Hepatitis B Virus infection. Hepatitis B Surface Antibody Quantitative 99.4(H) <8.0 mIU/mL 08/05/2024 3:14 PM CDT [facility] Comment: Hepatitis B Surface Antibody Numeric Result Interpretation: Nonreactive: <8.0 mIU/mL Indeterminate: 8.0 - 12.0 mIU/mL Reactive: >12.0 mIU/mL Blood BLOOD SPECIMEN / Unknown Lab Venipuncture / Unknown 08/05/2024 1:40 PM CDT 08/05/2024 2:24 PM CDT Merrick Engel MD LAB - CHEMISTR Y ORDERABLES Performing Organization Address City/[facility]/ZIP Co de Phone Number [facility] [address] [place] [phone], [place] [phone] * HEPATITIS B CORE ANTIBODY (08/05/2024 1:40 PM CDT) Only the most recent of2 resultswithin the time period is included. HBc Antibody Total Non-reacti ve Non-reacti ve 08/05/2024 3:14 PM CDT [facility] Blood BLOOD SPECIMEN / Unknown Lab Venipuncture / Unknown 08/05/2024 1:40 PM CDT 08/05/2024 2:24 PM CDT Merrick Engel MD LAB - CHEMISTR Y ORDERABLES Performing Organization Address City/[facility] Co de Phone Number [address] [address], [place] [phone] * HEPATITIS B SURFACE ANTIGEN W RFLX CONFIRMATION (08/05/2024 1:40 PM CDT) Only the most recent of2 resultswithin the time period is included. Hepatitis B Virus Surface Antigen Non-reacti ve Non-reacti ve 08/05/2024 3:14 PM CDT [facility] Blood BLOOD SPECIMEN / Unknown Lab Venipuncture / Unknown 08/05/2024 1:40 PM CDT 08/05/2024 2:24 PM CDT Merrick Engel MD LAB - CHEMISTR Y ORDERABLES Performing Organization Address City/[facility]/ZIP Co de Phone Number [address] [address], [place] [phone] * HEPATITIS C ANTIBODY (08/05/2024 1:40 PM CDT) Only the most recent of2 resultswithin the time period is included. Hepatitis C Antibody Non-react xavier Non-reac tive 08/05/2024 3:14 PM CDT [facility] Comment:Hepatitis C Antibody screen indicates no [...] Engel MD LAB - CHEMISTR Y ORDERABLES Performing Organization Address City/[facility] Co de Phone Number [facility] [address] [place] [address], [place] [phone] * (ABNORMAL) HEPATITIS A ANTIBODY (08/05/2024 1:40 PM CDT) Only the most recent of2 resultswithin the time period is included. Pathologist [facility] Hepatitis A Virus Antibody Total Positive( A) Negative 08/07/2024 12:37 PM CDT [facility] ([facility]) Comment: The positive anti-HAV is consistent with recent or remote Hepatitis A infection or antibody response to HAV vaccination. False positive anti-HAV can occur. Performed By: Dress Code [address] [place] [address] Virtualization Engineer: Matias Randall MD, PhD CLIA Number: [id number] Blood BLOOD SPECIMEN / Unknown Lab Venipuncture / Unknown 08/05/2024 1:40 PM CDT 08/05/2024 2:24 PM CDT Merrick Engel MD LAB - CHEMISTR Y ORDERABLES Performing Organization Address [facility] Co de Phone Number [employer] [facility]) [address] [place] [address] * (ABNORMAL) LIPID PROFILE (08/05/2024 1:40 PM CDT) Only the most recent of2 resultswithin the time period is included. Cholesterol Total 148 <200 mg/dL 08/05/2024 2:56 PM CDT [facility] HDL 31(L) >40 mg/dL 08/05/2024 2:56 PM CDT [facility] Comment: ATP III Classification of HDL Cholesterol: <40 mg/dL: Considered a major risk factor. >60 mg/dL: Considered a negative risk factor. LDL Calculated 80 <100 mg/dL 08/05/2024 2:56 PM CDT [facility] Comment: ATP III Classification of LDL Cholesterol: <100 mg/dL: Optimal 100 - 129 mg/dL: Near Optimal/Above Optimal 130 - 159 mg/dL: Borderline High 160 - 189 mg/dL: High >190 mg/dL: Very High Triglycerides 184(H) <150 mg/dL 08/05/2024 2:56 PM CDT [facility] Comment: ATP III Classification of Triglycerides: <150 mg/dL: Normal 150 - 199 mg/dL: Borderline High 200 - 400 mg/dL: High >500 mg/dL: Very High Blood BLOOD SPECIMEN / Unknown Lab Venipuncture / Unknown 08/05/2024 1:40 PM CDT 08/05/2024 2:29 PM CDT Merrick Engel MD LAB - CHEMISTR Y ORDERABLES [facility] [address] [place] [address], [place] [phone] * VAS Arterial Multilevel Le (08/05/2024 12:32 PM CDT) Only the most recent of2 resultswithin the time period is included. Anatomical Region Laterality Modality Intravascular Ul trasound 08/05/2024 11:1 8 AM CDT Narrative Procedure Note Srinath Rebollar MD - 08/05/2024 Merrick Engel MD VASCULAR LAB O RDERABLES * XR CHEST PA AND LATERAL (08/05/2024 12:11 PM CDT) Only the most recent of2 resultswithin the time period is included. Anatomical Region Laterality Modality Chest Radiographic Renea ging 08/05/2024 12:1 3 PM CDT Narrative 08/05/2024 12:14 PM CDT PROCEDURE: XR CHEST 2VW DATE/TIME OF EXAM: 08/05/2024 12:11 PM CLINICAL INFORMATION: None relevant/not provided if blank. 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 No focal consolidation, pleural effusion, or pneumothorax is identified. The cardiac silhouette and mediastinal contours are normal. > Interpreting Provider: Janes Archibald MD on 08/05/2024 12:14 PM Procedure Note Janes Archibald MD - 08/05/2024 PROCEDURE: XR CHEST 2VW DATE/TIME OF EXAM: 08/05/2024 12:11 PM CLINICAL INFORMATION: None relevant/not provided if blank. 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 No focal consolidation, pleural effusion, or pneumothorax is identified. The cardiac silhouette and mediastinalcontours are normal. > Interpreting Provider: Janes Archibald MD on 08/05/2024 12:14 PM Merrick Engel MD DIAGNOSTIC RENEA GING ORDERABLES * XR PANOREX (08/05/2024 12:11 PM CDT) Only the most recent of2 resultswithin the time period is included. Anatomical Region Laterality Modality Head Radiographic Renea ging 08/09/2024 2:20 PM CDT Impressions 08/09/2024 2:23 PM CDT IMPRESSION: No evidence of periapical abscess. > Interpreting Provider: Dalia Bailon MD on 08/09/2024 2:23 PM Narrative 08/09/2024 2:23 PM CDT PROCEDURE: XR PANOREX DATE/TIME OF EXAM: 08/05/2024 12:11 PM CLINICAL INFORMATION: None relevant/not provided if blank. Indication: Z76.82: Pre-kidney transplant, listed N18.6: ESRD (end stage renal disease) ([facility]) 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 ([facility]) I10: Hypertension, unspecified type I48.91: Atrial fibrillation, unspecified type ([facility]) G62.9: Neuropathy G47.33: JONAH on CPAP Additional History: COMPARISON: 07/28/2023. FINDINGS: A few teeth are absent. There are multiple dental restorations. No significant dental caries. There is no bone loss around the roots of the teeth to suggest periapical abscess. The mandible and temporomandibular joints are intact. Procedure Note Dalia Bailon MD - 08/09/2024 PROCEDURE: XR PANOREX DATE/TIME OF EXAM: 08/05/2024 12:11 PM CLINICAL INFORMATION: None relevant/not provided if blank. Indication: Z76.82: Pre-kidney transplant, listed N18.6: ESRD (end stage renal disease) ([facility]) 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 ([facility]) I10: Hypertension, unspecified type I48.91: Atrial fibrillation, unspecified type ([facility]) G62.9: Neuropathy G47.33: JONAH on CPAP Additional History: COMPARISON: 07/28/2023. FINDINGS: A few teeth are absent. There are multiple dental restorations. No significant dental caries. There is no bone loss around the roots of the teeth to suggest periapical abscess. The mandible and temporomandibular joints are intact. IMPRESSION: No evidence of periapical abscess. > Interpreting Provider: Dalia Bailon MD on 08/09/2024 2:23 PM Merrick Engel MD DIAGNOSTIC RENEA GING ORDERABLES * FLOW HLA XM LIVING DONOR (06/20/2024 2:37 PM CDT) Flow XM Donor First Name BENJAMIN 09/14/2024 4:18 PM [facility] ([facility]) Flow XM Donor Last Name ALLAN 09/14/2024 4:18 PM [facility] ([facility]) Flow XM Relation Unrelated 09/14/20 24 4:18 PM [facility] ([facility]) Flow XM T Cell Neg^-26 09/14/2024 4:18 PM [facility]) Flow XM B Cell Neg^-17 09/14/2024 4:18 PM [facility] ([facility]) Flow XM Serum Date 06/20/20242023 4:18 PM [facility] ([facility]) Flow XM Test Date 09/14/2024 024 4:18 PM [facility] ([facility]) Comment: Methodology - Flow Cytometric T- and B-Cell Crossmatching This test was developed and its performance characteristics determined by the [facility]. It has not been cleared or approved by the U.S. Food and Drug Administration. The FDA has determined that such clearance or approval is not necessary. This test is used for clinical purposes. It should not be regarded as investigational or for research. This laboratory is certified under the Clinical Laboratory Improvement Amendments of 1988 (CLIA-88) as qualified to perform high complexity clinical laboratory testing. CLIA ID# [id number] Performed at: [facility], [address] [place] [phone] [employer] Contact Lens: Johan Wilson, Ph.D., D([facility]), Blood BLOOD SPECIMEN / Unknown No Charge Blood Draw / Unknown 06/20/2024 2:37 PM CDT 09/14/2024 2:38 PM [facility] Dany Peralta MD LAB - PATHOLOGY/CYTO LOGY ORDERABLES Performing Organization Address City/[facility] Co de Phone Number [facility] ([facility]) [address] [place], [place] [phone] [place] [address] * HLA ANTIBODY SCREEN LUM CLASS 2 SAB (06/20/2024 11:21 AM CDT) Only the most recent of2 resultswithin the time period is included. % PRA 0 06/23/2024 5:22 PM CDT [facility] ([facility]) Class 2 SAB Test Date [id number] 06/23/2024 5:22 PM CDT [facility] ([facility]) Comment: This test was developed and its performance characteristics determined by the [facility]. It has not been cleared or approved by the U.S. Food and Drug Administration. The FDA has determined that such clearance or approval is not necessary. This test is used for clinical purposes. It should not be regarded as investigational or for research. This laboratory is certified under the Clinical Laboratory Improvement Amendments of 1988 (CLIA-88) as qualified to perform high complexity clinical laboratory testing. CLIA ID# [id number] Performed at: [facility], [address] [place] [phone] [employer] Contact Lens:Dr. Familia Geiger, PhD, Blood BLOOD SPECIMEN / Unknown Lab Venipuncture / Unknown 06/20/2024 11:21 AM CDT 06/20/2024 11:33 AM CDT Ban Alfaro MD LAB - BLOOD BAN K ORDERABLES Performing Organization Address City/State/[facility] de Phone Number [facility] ([facility]) [address] * HLA ANTIBODY SCREEN LUM CLASS 1 SAB (06/20/2024 11:21 AM CDT) Only the most recent of2 resultswithin the time period is included. % PRA 0 06/23/2024 5:22 PM CDT [facility] ([facility]) Class 1 SAB Test Date [id number] 06/23/2024 5:22 PM CDT [facility] ([facility]) Comment: This test was developed and its performance characteristics determined by the [facility]. It has not been cleared or approved by the U.S. Food and Drug Administration. The FDA has determined that such clearance or approval is not necessary. This test is used for clinical purposes. It should not be regarded as investigational or for research. This laboratory is certified under the Clinical Laboratory Improvement Amendments of 1988 (CLIA-88) as qualified to perform high complexity clinical laboratory testing. CLIA ID# [id number] Performed at: [facility], [address] [place] [phone] [employer] Contact Lens:Dr. Familia Geiger, PhD, Blood BLOOD SPECIMEN / Unknown Lab Venipuncture / Unknown 06/20/2024 11:21 AM CDT 06/20/2024 11:32 AM CDT Ban Alfaro MD LAB - BLOOD JV K ORDERABLES Performing Organization Address [facility] Co de Phone Number [facility] ([facility]) [address] * CORONARY ANGIOGRAPHY (03/02/2024 4:58 PM CDT) Anatomical Region Laterality Modality X-Ray Angiograph y Narrative 03/02/2024 9:25 PM CDT The coronary vessels are normal. LVEDP: 7 mmHg. Procedure Details Estimated Blood Loss: 10 mL Coronary Findings Diagnostic Dominance: Right Left Main: The vessel was visualized by selective angiography and is moderate in size. The vessel exhibits minimal luminal irregularities. Left Anterior Descending: The vessel was visualized by selective angiography and is moderate in size. The vessel exhibits minimal luminal irregularities. Left Circumflex: The vessel was visualized by selective angiography, is moderate in size and is angiographically normal. Right Coronary Artery: The vessel was visualized by selective angiography, is moderate in size and is angiographically normal. Intervention No interventions have been documented. Left Ventricle LVEDP: 7 mmHg. Common Conclusions The coronary vessels are normal. Recommendations - Resume previous medications. - The patient is low risk for surgery. Recommend proceeding with surgery. Jennifer Khanna MD CV CARDIAC CATH CHINI D PROCS * (ABNORMAL) GLUCOSE - POINT OF CARE (03/02/2024 2:29 PM CDT) Only the most recent of39 resultswithin the time period is included. [facility] Glucose WB/POC 69(L) 70 - 115 mg/dL 03/02/2024 4:20 PM CDT [facility] Specimen Type Arterial 03/02/2024 4:20 PM CDT [facility] Blood BLOOD SPECIMEN / Unknown 03/02/2024 2:29 PM CDT 03/02/2024 4:20 PM CDT Kristel White MD LAB - POINT OF CARE ORDERABLES Performing Organization Address City/State/[facility] Co de Phone Number [facility] [address] [place] [phone], [place] [phone] * (ABNORMAL) CBC W/O DIFFERENTIAL (03/02/2024 2:25 PM CDT) [facility] WBC 7.1 4.0 - 10.7 x10E9/L 03/02/2024 2:38 PM CDT [facility] RBC Count 3.37(L) 4.30 - 5.80 x10E12/L 03/02/2024 2:38 PM CDT [facility] Hemoglobin 10.4(L) 13.3 - 17.5 g/dL 03/02/2024 2:38 PM CDT [facility] Hematocrit 30.7(L) 38.7 - 51.1 % 03/02/2024 2:38 PM T [facility] MCV 91.1 80.0 - 98.0 fL 03/02/2024 2:38 PM T [facility] MCH 30.9 26.7 - 33.6 pg 03/02/2024 2:38 PM [facility] MCHC 33.9 31.7 - 36.3 g/dL 03/02/2024 2:38 PM [facility] RDW-CV 13.0 11.3 - 14.8 % 03/02/2024 2:38 PM [facility] Platelet Count 249 150 - 420 x10E9/L 03/02/2024 2:38 PM [facility] MPV 10.4 7.8 - 11.4 fL 03/02/2024 2:38 PM [facility] Blood BLOOD SPECIMEN / Unknown Venipuncture / Unknown 03/02/2024 2:25 PM CDT 03/02/2024 2:32 PM CDT Crista Mcgarry MARINE SERVICE MANAGER-EVAPORATOR OPERATOR [facility] LAB - HEMATOLO GY ORDERABLES [facility] [address] [place] [phone], [place] [phone] * (ABNORMAL) BASIC METABOLIC PANEL (CALCIUM TOTAL) (03/02/2024 2:25 PM CDT) Only the most recent of9 resultswithin the time period is included. BUN 55(H) 7 - 26 mg/dL 03/02/2024 2:58 PM [facility] Creatinine 7.04(H) 0.71 - 1.16 mg/dL 03/02/2024 2:58 PM [facility] Sodium 138 136 - 145 mmol/L 03/02/2024 2:58 PM [facility] Potassium 4.2 3.5 - 4.5 mmol/L 03/02/2024 2:58 PM [facility] Chloride 105 98 - 107 mmol/L 03/02/2024 2:58 PM [facility] CO2 24 22 - 29 mmol/L 03/02/2024 2:58 PM CDT [facility] Glucose 72 70 - 115 mg/dL 03/02/2024 2:58 PM CDT [facility] Calcium 9.5 8.4 - 10.2 mg/dL 03/02/2024 2:58 PM T [facility] Anion Gap 9 6 - 16 03/02/2024 2:58 PM CDT [facility] BUN/Creatinine Ratio 8 7 - 23 03/02/2024 2:58 PM CDT [facility] Osmolality Calculated 300(H) 275 - 295 mOsm/kg 03/02/2024 2:58 PM T [facility] eGFR by CKD-EPI 8(L) >=90 mL/min/1.7 3 m2 03/02/2024 2:58 PM CDT [facility] Blood BLOOD SPECIMEN / Unknown Venipuncture / Unknown 03/02/2024 2:25 PM CDT 03/02/2024 2:32 PM CDT Crista Mcgarry MARINE SERVICE MANAGER-EVAPORATOR OPERATOR [facility] LAB - CHEMISTR Y ORDERABLES [facility] [address] [place] [address], [place] [phone] * EKG 12-LEAD (01/19/2024 2:23 PM CDT) Only the most recent of5 resultswithin the time period is included. Ventricular Rate 69 BPM [facility] Atrial Rate 69 BPM [facility] P-R Interval 194 ms [facility] QRS Duration ms 100 ms [facility] Q-T Interval ms 372 ms [facility] QTC Calculation (Bezet) 398 ms [facility] Calculated P [place] 35 degrees [facility] Calculated R [place] -42 degrees [facility] Calculated T [place] 53 degrees [facility] Interpretation EKG NORMAL SINUS RHYTHM LEFT AXIS DEVIATION SEPTAL INFARCT , AGE UNDETERMINED ABNORMAL ECG WHEN COMPARED WITH ECG OF 28-JUL-2023 10:30, INCOMPLETE RIGHT BUNDLE BRANCH BLOCK IS NO LONGER PRESENT SEPTAL INFARCT IS NOW PRESENT Confirmed by MD ELSI, JENNIFER ([id number]) on 01/20/2024 11:02:24 AM [facility] 01/19/2024 2:23 PM CDT 01/20/2024 11:02 AM CDT Jennifer Khanna MD ECG ORDERABLES [facility] * (ABNORMAL) URINALYSIS COMPLETE W MICROSCOPIC (07/28/2023 1:04 PM CDT) Only the most recent of3 resultswithin the time period is included. Color UA Yellow Straw, Yellow 07/28/2023 1:54 PM CDT [facility] Clarity UA Clear Clear 07/28/2023 1:54 PM T [facility] Specific [place] UA 1.013 1.005 - 1.030 07/28/2023 1:54 PM [facility] pH UA 5.0 5.0 - 8.0 pH 07/28/2023 1:54 PM [facility] Protein UA 2+(A) Negative 07/28/2023 1:54 PM [facility] Glucose UA Negative Negative 07/28/2023 1:54 PM [facility] Ketone UA Negative Negative 07/28/2023 1:54 PM [facility] Bilirubin UA Negative Negative 07/28/2023 1:54 PM [facility] Blood UA 1+(A) Negative 07/28/2023 1:54 PM [facility] Nitrite UA Negative Negative 07/28/2023 1:54 PM [facility] Leukocyte Esterase Negative Negative 07/28/2023 1:54 PM [facility] Urobilinogen UA Negative Negative mg/dL 07/28/2023 1:54 PM [facility] RBC UA 0-2 None Seen, 0-2, 3-5 /HPF 07/28/2023 1:54 PM [facility] WBC UA 0-5 None Seen, 0-5 /HPF 07/28/2023 1:54 PM [facility] Squamous Epithelial Cells UA None Seen None Seen, 0-2, 3-5 /HPF 07/28/2023 1:54 PM CDT [facility] Urine URINE SPECIMEN OBTAINED BY CLEAN CATCH PROCEDURE / Unknown Collection / Unknown 07/28/2023 1:04 PM CDT 07/28/2023 1:39 PM CDT Narrative [facility] - 07/28/2023 1:54 PM CDT Augustin Chacko MD LAB - URINALYSIS ORD ERABLES [facility] [address] [place] [address], [place] [phone] * BLOOD TYPE ABO+ RH PANEL (07/28/2023 11:35 AM CDT) ABO Rh B POS 07/28/2023 12:45 PM CDT [facility] Blood BLOOD SPECIMEN / Unknown Lab Venipuncture / Unknown 07/28/2023 11:35 AM CDT 07/28/2023 11:56 AM CDT Augustin Chacko MD LAB - BLOOD BANK ORD ERABLES [facility] [address] [place] [phone], [place] [phone] * HLA TYPING DNA LOW RESOLUTION DR,DQ (07/28/2023 11:29 AM CDT) DR DQ Low Resolution DRB1-1 *07 08/06/2023 5:39 PM CDT [facility] ([facility]) DR DQ Low Resolution DQB1-1 *02 08/06/2023 5:39 PM CDT [facility] ([facility]) DR DQ Low Resolution DRB3-1 Negative 08/06/2023 5:39 PM CDT [facility] ([facility]) DR DQ Low Resolution DRB3-2 Negative 08/06/2023 5:39 PM CDT [facility] ([facility]) DR DQ Low Resolution DRB4-1 *01 08/06/2023 5:39 PM CDT [facility] ([facility]) DR DQ Low Resolution DRB4-2 Negative 08/06/2023 5:39 PM CDT [facility] ([facility]) DR DQ Low Resolution DRB5-1 Negative 08/06/2023 5:39 PM CDT [facility] ([facility]) DR DQ Low Resolution DRB5-2 Negative 08/06/2023 5:39 PM CDT [facility] ([facility]) DR DQ Low Resolution Methodology Real Time PCR 08/06/2023 5:39 PM CDT [facility] ([facility]) DR DQ Low Resolution test date [id number] 08/06/2023 5:39 PM CDT [facility] ([facility]) Comment: This test was developed and its performance characteristics determined by the [facility]. It has not been cleared or approved by the U.S. Food and Drug Administration. The FDA has determined that such clearance or approval is not necessary. This test is used for clinical purposes. It should not be regarded as investigational or for research. This laboratory is certified under the Clinical Laboratory Improvement Amendments of 1988 (CLIA-88) as qualified to perform high complexity clinical laboratory testing. CLIA ID# [id number] Performed at: [facility], [address] [place] [id number] [employer] Contact Lens:Dr. Familia Geiger, PhD, Blood BLOOD SPECIMEN / Unknown Lab Venipuncture / Unknown 07/28/2023 11:29 AM CDT 07/28/2023 11:56 AM CDT Augustin Chacko MD LAB - BLOOD BANK ORD ERABLES [facility] ([facility]) [address] [place] [address] * HLA TYPING DNA LOW RESOLUTION A,B,C (07/28/2023 11:29 AM CDT) ABC DNA A1 *02 08/06/2023 5:39 PM CDT [facility] ([facility]) ABC DNA A2 *34 08/06/2023 5:39 PM CDT [facility] ([facility]) ABC DNA B1 *18 08/06/2023 5:39 PM CDT [facility] ([facility]) ABC DNA B2 *51 08/06/2023 5:39 PM CDT [facility] ([facility]) ABC DNA BW1 6 08/06/2023 5:39 PM CDT [facility] ([facility]) ABC DNA BW2 4 08/06/2023 5:39 PM CDT [facility] ([facility]) ABC DNA C1 *02 08/06/2023 5:39 PM CDT [facility] ([facility]) ABC DNA C2 *16 08/06/2023 5:39 PM CDT [facility] ([facility]) ABC DNA Methodology Real Time PCR 08/06/2023 5:39 PM CDT [facility] ([facility]) ABC DNA Test Date [id number] 5:39 PM CDT [facility] ([facility]) Comment: This test was developed and its performance characteristics determined by the [facility]. It has not been cleared or approved by the U.S. Food and Drug Administration. The FDA has determined that such clearance or approval is not necessary. This test is used for clinical purposes. It should not be regarded as investigational or for research. This laboratory is certified under the Clinical Laboratory Improvement Amendments of 1988 (CLIA-88) as qualified to perform high complexity clinical laboratory testing. CLIA ID# [id number] Performed at: [facility], [address] [place] [id number] [employer] Contact Lens:Dr. Familia Geiger, PhD, Blood BLOOD SPECIMEN / Unknown Lab Venipuncture / Unknown 07/28/2023 11:29 AM CDT 07/28/2023 11:56 AM CDT Augustin Chacko MD LAB - BLOOD BANK ORD ERABLES [facility] ([facility]) [address] [place] [id number] * CANNABINOID SCREEN BLOOD (07/28/2023 11:29 AM CDT) [facility] Marijuana Metabolites Negative 07/30/2023 4:11 PM CDT [facility] ([facility]) Comment:REFERENCE RANGE: thr shold: 5 ng/mL Specimen Type Comment 07/30/2023 4:11 PM CDT [facility]) Comment: WHOLE BLOOD This specimen was screened by immunoassay at the thresholds listed above. Presumptive positive results have not been confirmed by an alternate method; results are intended for clinical medical purposes. Please contact the laboratory if confirmatory testing is desired. This test was developed and its performance characteristics determined by [facility]. It has not been cleared or approved by the Food and Drug Administration. Blood BLOOD SPECIMEN / Unknown Lab Venipuncture / Unknown 07/28/2023 11:29 AM CDT 07/28/2023 11:57 AM CDT N[facility]ative [facility]) - 07/30/2023 4:11 PM CDT Performed at: [facility] [employer] [address] [id number] Bl[employer] Cutter Contact Lens: Stephanie Kirkpatrick [facility], Phone: [phone] Augustin Chacko MD LAB - CHEMISTRY ROSALES MANUEL [facility] Organization Address City/State/ZIP Co de Phone Number [facility] ([facility]) [address] [place] [phone] * (ABNORMAL) CYTOMEGALOVIRUS ANTIBODY IGG BLOOD (07/28/2023 11:29 AM CDT) [facility] Cytomegalovirus Antibody IgG 0.84(H) <=0.70 U/mL 07/30/2023 5:48 AM CDT [facility] ([facility]) Comment: INTERPRETIVE INFORMATION: Cytomegalovirus Antibody, IgG 0.59 U/mL or less......... Not Detected 0.6 - 0.69 U/mL........... Indeterminate-Repeat testing in 10-14 days may be helpful. 0.70 U/mL or greater...... Detected In immunocompromised patients, CMV serology (IgG or IgM antibody titers) may not be reliable and may be misleading in the diagnosis of acute or reactivation CMV disease. The preferred method for diagnosis is culture of virus and/or demonstration of viral antigen in peripheral white cells (buffy coat), bronchoalveolar lavage (BAL) cells, or tissue biopsies. This test should not be used for blood donor screening, associated re-entry protocols, or for screening Human Cell, Tissues and Cellular and Tissue-Based Products (HCT/P). The best evidence for current infection is a significant change on two appropriately timed specimens, where both tests are done in the same laboratory at the same time. Performed By: Dress Code [address] [place] [address] Virtualization Engineer: Matias Randall MD, PhD CLIA Number: [id number] Blood BLOOD SPECIMEN / Unknown Lab Venipuncture / Unknown 07/28/2023 11:29 AM CDT 07/28/2023 11:55 AM CDT Augustin Chacko MD LAB - CHEMISTRY ORDE RABRENARD Performing Organization Address [facility] Co de Phone Number [employer] [facility]) [address] [place] [address] * RUBELLA ANTIBODY IGG TITER (07/28/2023 11:29 AM CDT) [facility] Rubella Antibody IgG 219.0 IU/mL 07/30/2023 6:02 AM CDT [employer] ([facility]) Comment: INTERPRETIVE INFORMATION: Rubella Antibody, IgG Less than 9 IU/mL ........ Not Detected 9 - 9.9 IU/mL ............ Indeterminate-Repeat testing in 10-14 days may be helpful. 10 IU/mL or Greater ...... Detected The best evidence for current infection is a significant change on two appropriately timed specimens, where both tests are done in the same laboratory at the same time. The magnitude of the measured result is not indicative of the amount of antibody present. Performed By: Dress Code [address] [place] [address] Virtualization Engineer: Matias Randall MD, PhD CLIA Number: [id number] Blood BLOOD SPECIMEN / Unknown Lab Venipuncture / Unknown 07/28/2023 11:29 AM CDT 07/28/2023 11:55 AM CDT Augustin Chacko MD LAB - SEROLOGY ORDER [facility]) [address] [place] [address] * RUBEOLA ANTIBODY IGG (07/28/2023 11:29 AM CDT) Measles (Rubeola) Antibody IgG >300.0 AU/mL 07/30/2023 10:20 AM CDT [facility] [employer] ([facility]) Comment: INTERPRETIVE INFORMATION: Measles (Rubeola) Antibody, IgG 13.4 AU/mL or less........ Negative - No significant level of detectable measles (rubeola) IgG antibody. 13.5-16.4 AU/mL .......... Equivocal - Repeat testing in 10-14 days may be helpful. 16.5 AU/mL or greater .... Positive - IgG antibody to measles (rubeola) detected which may indicate a current or past exposure/immunization to measles (rubeola). The best evidence for current infection is a significant change on two appropriately timed specimens, where both tests are done in the same laboratory at the same time. Performed By: [employer] [address] [place] [address] Virtualization Engineer: Matias Randall MD, PhD CLIA Number: [id number] Blood BLOOD SPECIMEN / Unknown Lab Venipuncture / Unknown 07/28/2023 11:29 AM CDT 07/28/2023 11:55 AM CDT Augustin Chacko MD LAB - CHEMISTRY ROSALES MANUEL [facility] Organization Address City/State/ZIP Co de Phone Number [facility] [employer] [facility]) [address] * MUMPS ANTIBODY IGG (07/28/2023 11:29 AM CDT) Mumps Virus Antibody IgG 228.0 AU/mL 07/30/2023 4:17 AM CDT [facility] [employer] ([facility]) Comment: INTERPRETIVE INFORMATION: Mumps Ab, IgG by MARGRET 8.9 AU/mL or less .... Negative - No significant level of detectable IgG mumps virus antibody 9.0-10.9 AU/mL ....... Equivocal - Repeat testing in 10-14 days may be helpful 11.0 AU/mL or greater: Positive - IgG antibody to mumps virus detected, which may indicate a current or past exposure/ immunization to mumps virus. The best evidence for current infection is a significant change on two appropriately timed specimens, where both tests are done in the same laboratory at the same time. Performed By: [facility] [address] [place] [address] Virtualization Engineer: Matias Randall MD, PhD CLIA Number: [id number] Blood BLOOD SPECIMEN / Unknown Lab Venipuncture / Unknown 07/28/2023 11:29 AM CDT 07/28/2023 11:55 AM CDT Augustin Chacko MD LAB - CHEMISTRY ORDE MAR [facility] [employer] [facility]) [address] [place] [address] * VARICELLA ZOSTER ANTIBODY IGG (07/28/2023 11:29 AM CDT) [facility] Varicella zoster Virus Antibody IgG >4000.0 IV 07/30/2023 10:26 AM CDT [facility] [employer] ([facility]) Comment: INTERPRETIVE INFORMATION: VZV Ab, IgG 134.9 IV or less ....... Negative - No significant level of detectable IgG varicella-zoster antibody. 135.0 - 164.9 IV ....... Equivocal - Repeat testing in 10-14 days may be helpful. 165.0 IV or greater .... Positive - IgG antibody to varicella-zoster detected, which may indicate a current or past varicella-zoster infection. The best evidence for current infection is a significant change on two appropriately timed specimens, where both tests are done in the same laboratory at the same time. Performed By: [employer] Code [address] [place] [address] Virtualization Engineer: Matias Randall MD, PhD CLIA Number: [id number] Blood BLOOD SPECIMEN / Unknown Lab Venipuncture / Unknown 07/28/2023 11:29 AM CDT 07/28/2023 11:55 AM CDT Augustin Chacko MD LAB - CHEMISTRY ORDJono MANUEL Performing Organization Address City/[facility]/ZIP Co de Phone Number [employer] ([facility]) [address] * (ABNORMAL) YUE-BRASHER VIRUS ANTIBODY TO VCA IGG (07/28/2023 11:29 AM CDT) Yue-Brasher Virus Antibody IgG Viral Capsid Antigen >750.0(H) 0.0 - 21.9 U/mL 07/30/2023 6:03 AM CDT [facility] [employer] ([facility]) Comment: INTERPRETIVE INFORMATION: Yue-Brasher Virus Antibody to Viral Capsid Antigen, IgG 17.9 U/mL or less.......Not Detected 18.0-21.9 U/mL..........Indeterminate - Repeat testing in 10-14 days may be helpful. 22.0 U/mL or greater....Detected Performed By: Dress Code [address] [place] [address] Virtualization Engineer: Matias Randall MD, PhD CLIA Number: [id number] Blood BLOOD SPECIMEN / Unknown Lab Venipuncture / Unknown 07/28/2023 11:29 AM CDT 07/28/2023 11:55 AM CDT Augustin Chacko MD LAB - CHEMISTRY ROSALES MANUEL Performing Organization Address City/[facility] Co de Phone Number [facility] [employer] ([facility]) [address] * TYPE + SCREEN PANEL (07/28/2023 11:29 AM CDT) Only the most recent of2 resultswithin the time period is included. Antibody Screen NEG 12:44 PM CDT [facility] BLOOD [facility]ANK LAB ABO Rh B POS 07/28/2023 12:44 PM CDT [facility] LAB Blood Bank BLOOD SPECIMEN / Unknown Lab Venipuncture / Unknown 07/28/2023 11:29 AM CDT 07/28/2023 11:56 AM CDT Augustin Chacko MD LAB - BLOOD BANK ORD ERABLES Performing Organization Address City/[facility]/ZIP Co de Phone Number [facility] LAB [address] [place] [address], [place] [phone] * ALCOHOL ETHYL BLOOD (07/28/2023 11:29 AM CDT) Ethanol (mg/dL) <10 <=10 mg/dL 12:39 PM CDT [facility] Ethanol Calculated (g/dL) <0.010 <0.010 g/dL 07/28/2023 12:39 PM CDT [facility] Blood BLOOD SPECIMEN / Unknown Lab Venipuncture / Unknown 07/28/2023 11:29 AM CDT 07/28/2023 12:04 PM CDT Narrative [facility] - 07/28/2023 12:39 PM CDT Ethanol Interp <10: None Detected. Depression of FILM REPRODUCER: >100 mg/dl Potentially Critical: >250 mg/dl Potentially Fatal >400 mg/dl Ethanol in the patient's blood will contribute to the osmolar gap. Ethanol's contribution to the osmolar gap can be estimated by dividing the concentration of ethanol in mg/dL by 4.6. This test is for clinical use only and does not equal a JONNA for legal purposes. Augustin Chacko MD LAB - CHEMISTRY ORDE MAR Performing Organization Address [facility]/ZIP Co de Phone Number [facility] [address] [place] [address], [place] [phone] * CT CHEST ABDOMEN PELVIS WO CONT (07/28/2023 10:47 AM CDT) Anatomical Region Laterality Modality Chest, Abdomen, Pelvis Computed Tomography 07/28/2023 11:1 2 AM CDT Impressions 07/28/2023 10:19 PM CDT Impression: 1.No acute abnormality in the chest. 2.Mild, sparse emphysematous change in bilateral lungs. 3.Bilateral atrophic kidneys. 4.No significant calcifications of the external iliac arteries. > Dictated by Dany Olvera MD (radiology orderly). I, Kieran Bliss MD have personally reviewed and interpreted this examination/study. 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 Over 20 pack year smoking history. COMPARISON: None. TECHNIQUE: CT of the chest, abdomen, and pelvis was performed without contrast according to standard protocol. Findings: Evaluation of visceral and vascular structures [...] osseous structures are intact. Soft tissues: Normal. 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 Over 20 pack year smoking history. COMPARISON: None. TECHNIQUE: CT of the chest, abdomen, and pelvis was performed without contrast according to standard protocol. Findings: Evaluation of visceral and vascular structures is degraded due to lackof intravenous contrast administration. Chest: Lower Neck and Axillae: Normal. No axillary lymphadenopathy. Lungs: Mild and sparse centrilobular and paraseptal emphysema is present. No suspicious pulmonary nodules are identified. No pleural fluid or pneumothorax is present. Heart and Pericardium: The cardiac chambers are normal in size. No pericardial fluid orthickening is present. Mediastinum and Aundrea: No enlarged [...] visualized loops of large and small bowel areunremarkable. There are changes of bowel resection and [...] significant calcifications of the external iliac arteries. > Dictated by Dany Olvera MD (radiology orderly). I, Kieran Bliss MD have personally reviewed and interpreted this examination/study. > Interpreting Provider: Kieran Bliss MD on 07/28/2023 10:19 PM Augustin Chacko MD CT ORDERABLES * ECHO COMPLETE W CONTRAST (07/28/2023 10:12 AM CDT) BSA 2.2823855 m2 SSM CV FUJ I PACS LV biplane EF 75 52 - 72 % SSM CV FUJI PACS LV A2C EF 73 48 - 76 % SSM CV FUJ I PACS LV A4C EF 77 46 - 74 % SSM CV FUJ I PACS LV stroke vol BP 101.8 mL SSM CV FUJI PACS LV stroke vol BP index 46.0 mL/m2 SSM CV FUJI PACS LVOT stroke vol 93.50 mL SSM CV FUJI PACS LVOT stroke vol index 42.22 mL/m2 SSM CV FUJI PACS LV stroke vol 2D teich 105.475 ml SSM CV FUJI PACS LV Stroke Index 2D Teich 47.63 mL/m2 SSM CV FUJI PACS LV stroke vol index A4C MOD 105.71 ml/m2 SSM CV FUJI PACS LVIDd 5.57 4.2 - 5.8 cm SSM CV FUJI PACS LVIDs 3.37 2.5 - 4.0 cm SSM CV FUJI PACS IVSd 2D 0.94 0.6 - 1 cm SSM CV FUJI PACS LVPWd 0.90 0.6 - 1 cm SSM CV FUJI PACS Fractional Shortening 2D 40 28 - 44 % SSM CV FUJI PACS LV ESV BP 34.768 21 - 61 mL SSM CV FUJI PACS LV ESV index BP 15.7 11 - 31 mL/m2 SSM CV FUJI PACS LV ESV A2C 32.405 15 - 75 mL SSM CV FUJI PACS LV ESV index A2C 14.63 9 - 37 mL/m2 SSM CV FUJI PACS LV EDV BP 136.551 62 - 150 mL SSM CV FUJI PACS LV ESV A4C 36.481 22 - 78 mL SSM CV FUJI PACS LV ESV index A4C 16.47 12 - 40 mL/m2 SSM CV FUJI PACS LV EDV index BP 61.7 34 - 74 mL/m2 SSM CV FUJI PACS LV EDV A2C 135.358 59 - 175 mL SSM CV FUJI PACS LV EDV index A2C 61.13 31 - 87 mL/m2 SSM CV FUJI PACS LV EDV A4C 138.114 mL SSM CV FU JI PACS LV ESV 2D 46.382 21 - 61 mL SSM CV FUJI PACS LV EDV index A4C 62.37 37 - 93 mL/m2 SSM CV FUJI PACS LV ESV index 2D 20.95 11 - 31 mL/m2 SSM CV FUJI PACS LV EDV 2D 151.857 62 - 150 mL SSM CV FUJI PACS LV EDV index 2D 68.58 34 - 74 mL/m2 SSM CV FUJI PACS LVOT diam 2.0 cm SSM CV FUJ I PACS LVOT area 3.09 cm2 SSM CV FUJ I PACS LV RWT 0.322 SSM CV FUJ I PACS LV Shay A2C 9.542 cm SSM CV F UJI PACS LV Shay A4C 9.54 cm SSM CV F UJI PACS IVS/LVPW 1.048 SSM CV FUJ I PACS LV mass 2D 158.42465 [id number] 96 - 200 g SSM CV FUJI PACS LV mass index 2D 71.74 50 - 102 g/m2 SSM CV FUJI PACS MV E pk hamilton 101.015 cm/s SSM CV F UJI PACS MV avg E/e' ratio 10.644 SS M CV FUJI PACS MV A pk hamilton 78.18 cm/s SSM CV F UJI PACS MV E A ratio 1.29 SSM CV FUJI PACS LV IVRT 100 ms SSM CV FUJ I PACS MV E' lateral hamilton 10.552 cm/s SS M CV FUJI PACS MV DT 221 ms SSM CV FUJ I PACS MV E' septal hamilton 8.623 cm/s SSM CV FUJI PACS MV A duration 163 ms SSM CV FUJI PACS MV E/e' septal 11.714 SSM C V FUJI PACS MV E/e' lateral 9.573 SSM CV FUJI PACS LA vol BP 65.011 mL SSM CV FUJ I PACS P vein A hamilton 26.0 cm/s SSM CV FUJI PACS P vein A duration 157 ms SS M CV FUJI PACS P vein S/D ratio 0.79 SSM CV FUJI PACS LVOT pk hamilton 1.64 m/s SSM CV F UJI PACS LVOT mn hamilton 1.00 m/s SSM CV F UJI PACS LVOT mn grad 4.4 mmHg SSM CV FUJI PACS LVOT Cardiac Output 5.546 l/min SSM CV FUJI PACS LVOT Cardiac Index 2.50 l/min/m2 SSM CV FUJI PACS LA vol index 29.4 16 - 34 mL/m2 SSM CV FUJI PACS LA size 3.75 3.0 - 4.0 cm SSM CV FUJI PACS LA vol BP A-L 71.47 mL SSM CV FUJI PACS RV-shay basal diam 3.9 2.5 - 4.1 cm SSM CV FUJI PACS RV-shay longitudinal diam 7.9 5.9 - 8.3 cm SSM CV FUJI PACS RVIDd 4.4 cm SSM CV FUJ I PACS RVOT VTI 16.654 cm SSM CV FUJ I PACS TV S' hamilton 10.636 SSM CV FUJ I PACS TAPSE 2.368 1.7 cm SSM CV FUJ I PACS RVOT pk hamilton 0.79 m/s SSM CV F UJI PACS RA area 16.685 cm2 SSM CV FUJ I PACS AV mn grad 5 mmHg SSM CV FU JI PACS AV pk grad 11 mmHg SSM CV FU JI PACS AV mn hamilton 1.09 m/s SSM CV FUJ I PACS AV pk hamilton 1.68 m/s SSM CV FUJ I PACS AV VTI 33.017 cm SSM CV FUJ I PACS LVOT pk grad 9.444 mmHg SSM CV FUJI PACS LVOT VTI 30.228 cm SSM CV FUJ I PACS AV area cont VTI 2.8 cm2 SSM CV FUJI PACS AV area pk hamilton 3.0 cm2 SSM C V FUJI PACS AV Doppler hamilton index pk hamilton 0.975 SSM CV FUJI PACS Dimensionless Index 0.916 SSM CV FUJI PACS MV mn grad 1 mmHg SSM CV FU JI PACS MV pk grad 5 mmHg SSM CV FU JI PACS MV mn hamilton 0.50 m/s SSM CV FUJ I PACS MV pk hamilton 108.403 cm/s SSM CV FUJ I PACS MV area cont eq 3.17 cm2 SSM CV FUJI PACS MV VTI 29.511 cm SSM CV FUJ I PACS MV decel slope 456.094 cm/s2 SSM C V FUJI PACS RVOT mn grad 1 mmHg SSM CV FUJI PACS RVOT pk grad 2 mmHg SSM CV FUJI PACS PV mn grad 2 mmHg SSM CV FU JI PACS PV pk hamilton 99.355 cm/s SSM CV FUJ I PACS PV pk grad 4 mmHg SSM CV FU JI PACS PV VTI 20.79 cm SSM CV FUJ I PACS PV mn hamilton 70.712 cm/s SSM CV FUJ I PACS Ascending aorta 3.32 cm SSM CV FUJI PACS IVC size 1.8 cm SSM CV FUJ I PACS LA ESV INDEX (BP) 29.36 ml/m2 SS M CV FUJI PACS LA ESV A4C MOD Index 28 ml/m2 SSM CV FUJI PACS LA ESV A2C MOD Index 28 ml/m2 SSM CV FUJI PACS [id number] 7.271 cm SSM CV FUJ I PACS [id number] 7.453 cm SSM CV FUJ I PACS Prox Asc Ao Diameter Index 1.5 cm SSM CV FUJI PACS LVIDs index 1.52 1.3 - 2.1 cm/m2 SSM CV FUJI PACS LV LVIDd index 2.52 2.2 - 3.0 cm/m2 SSM CV FUJI PACS Anatomical Region Laterality Modality Ultrasound Narrative 07/28/2023 10:30 AM CDT Left Ventricle: Left ventricle size is normal. [...] normal (~3 mmHg). Pericardium: No pericardial effusion. Left Ventricle Left ventricle size is normal. [...] No restricted motion. No regurgitation. No stenosis. Ascending Aorta Normal sized sinus of Valsalva (aortic root) and ascending aorta. Pericardium No pericardial effusion. Study Details Study quality was fair. A complete 2D, color Doppler, spectral Doppler and M- mode echocardiogram was performed. The apical, parasternal, subcostal and suprasternal views were obtained. Definity ultrasound enhancing agent used. Technical difficulties due to patient's body habitus. Procedure Note Adam Simmons MD - 07/28/2023 Left Ventricle: Left ventricle size is normal. Normal wall thickness.Hyperdynamic systolic function with a visually estimated EF of 70 - 75%.Normal wall motion. Normal diastolic function. Right Ventricle: Right ventricle size is upper limits of normal. Normalsystolic function. Tricuspid Valve: No regurgitation. Unable to estimate the pulmonaryartery systolic pressure due to lack of envelope. No significant valvular abnormalities IVC/SVC: IVC diameter is less than or equal to 21 mm and decreasesgreater than 50% during inspiration; therefore the estimated right atrialpressure is normal (~3 mmHg). Pericardium: No pericardial effusion. Ruffin D Nazzal MD ECHO CUPID * CARDIAC PROCEDURE ORDER (02/04/2020 7:43 AM CDT) Narrative 02/04/2020 7:43 AM CDT Ordered by an unspecified provider. Scanned Document CARDIAC SERVICES ORD ERABLES * CARDIAC EKG ORDER (02/04/2020 7:40 AM CDT) Only the most recent of2 resultswithin the time period is included. Narrative 02/04/2020 7:40 AM CDT Ordered by an unspecified provider. Scanned Document CARDIAC SERVICES ORD ERABLES * PT-INR [facility] (02/03/2020 12:09 AM CDT) Only the most recent of7 resultswithin the time period is included. PT 14.0 12.1 - 14.8 Seconds 02/03/2020 12:29 AM CDT [facility] INR 1.1 See Comment 02/03/2020 12:29 AM CDT [facility] Comment:The suggested therap eutic range for standard coumadin (warfarin) therapy is an INR of 2.0-3.0. For high-risk patients (Mechanical Mitral Valve Prosthesis, etc.), the suggested prophylactic therapeutic range is an INR of 2.5-3.5. Blood BLOOD SPECIMEN / Unknown Lab Venipuncture / Unknown 02/03/2020 12:09 AM CDT 02/03/2020 12:18 AM CDT Mesha Bonilla MD LAB - COAGULATIO N ORDERABLES [address] [phone] * MAGNESIUM BLOOD (02/03/2020 12:09 AM CDT) Only the most recent of6 resultswithin the time period is included. Magnesium 1.8 1.6 - 2.6 mg/dL 02/03/2020 12:50 AM CDT [facility] Blood BLOOD SPECIMEN / Unknown Lab Venipuncture / Unknown 02/03/2020 12:09 AM CDT 02/03/2020 12:18 AM CDT Mesha Bonilla MD LAB - [place] [address], [place] [phone] * XR CHEST 1VW PORTABLE (02/01/2020 9:38 AM CDT) Only the most recent of2 resultswithin the time period is included. Anatomical Region Laterality Modality Chest Radiographic Renea ging 02/01/2020 10:1 5 AM CDT Impressions 02/01/2020 3:00 PM CDT FINDINGS/IMPRESSION: The enteric tube has been removed. There are decreased lung volumes. There is left basilar atelectasis. There is blunting of the right costophrenic angle which may represent a small right pleural effusion. There is no pneumothorax. The cardiomediastinal silhouette is normal. Dictated by Akash Chauhan MD (Resident). Dr. DAINA Yu have personally reviewed and interpreted this examination/study. This report was electronically signed by DAINA DOMINGUEZ on 02/01/2020 3:00 PM . Narrative 02/01/2020 3:00 PM CDT EXAMINATION: XR CHEST 1VW PORTABLE HISTORY: K56.52: Intestinal adhesions with complete obstruction COMPARISON: Comparison is made with a study from 01/28/2020. Procedure Note Daina Dominguez MD - 02/01/2020 EXAMINATION: XR CHEST 1VW PORTABLE HISTORY: K56.52: Intestinal adhesions with complete obstruction COMPARISON: Comparison is made with a study from 01/28/2020. FINDINGS/IMPRESSION: The enteric tube has been removed. There are decreased lung volumes. There is left basilar atelectasis.There is blunting of the right costophrenic angle which may represent a small right pleural effusion. There is no pneumothorax. The cardiomediastinal silhouette is normal. Dictated by Akash Chauhan MD (Resident). Dr. DAINA Yu have personally reviewed and interpreted this examination/study. This report was electronically signed by DAINA DOMINGUEZ on 02/01/20203:00 PM . Aster Chong MD DIAGNOSTIC IMAGING O RDERAKG * XR ABDOMEN KUB PORTABLE (01/31/2020 2:53 AM CDT) Only the most recent of3 resultswithin the time period is included. Anatomical Region Laterality Modality Abdomen Radiographic Renea ging 01/31/2020 9:03 AM CDT Impressions 01/31/2020 9:36 AM CDT FINDINGS/IMPRESSION: An enteric tube is present with its tip in the distal stomach. Dictated by Akash Chauhan MD (radiology orderly). IDr. NAHUM MD have personally reviewed and interpreted this examination/study. This report was electronically signed by NAHUM AMARO MD on 01/31/2020 9:36 AM . Narrative 01/31/2020 9:36 AM CDT EXAMINATION: XR ABDOMEN KUB PORTABLE DATE: 01/31/2020 2:53 AM HISTORY: K56.52: Intestinal adhesions with complete obstruction COMPARISON: No prior study is available for comparison. Procedure Note Nahum Amaro MD - 01/31/2020 EXAMINATION: XR ABDOMEN KUB PORTABLE DATE: 01/31/2020 2:53 AM HISTORY: K56.52: Intestinal adhesions with complete obstruction COMPARISON: No prior study is available for comparison. FINDINGS/IMPRESSION: An enteric tube is present with its tip in the distal stomach. Dictated by Akash Chauhan MD (radiology orderly). Dr. NAHUM Yu MD have personally reviewed and interpreted this examination/study. This report was electronically signed by NAHUM AMARO MD on01/31/2020 9:36 AM . Delmer Estrada MD DIAGNOSTIC IMAGING O QUENTIN * (ABNORMAL) DIFFERENTIAL MANUAL (01/30/2020 11:59 PM CDT) Only the most recent of2 resultswithin the time period is included. WBC (corrected for NRBC) 15.0 10 3/uL 01/31/2020 12:54 AM CDT [facility] Total Cell Count 100 01/31/2020 12:54 AM [facility] Neutrophils Absolute Manual 13.05(H) 1.60 - 7.00 10 3/uL 01/31/2020 12:54 AM [facility] Comment:(BANDS+SEGS) x WBC = NEUT # (ANC) Lymphocyte Absolute Manual 1.50 0.80 - 2.90 10 3/uL 01/31/2020 12:54 AM [facility] Monocytes Absolute Manual 0.45 0.14 - 0.66 10 3/uL 01/31/2020 12:54 AM [facility] Band % Manual 8 0 - 10 % 01/31/2020 12:54 AM [facility] Neutrophil % Manual 79(H) 30 - 60 % 01/31/2020 12:54 AM [facility] Lymphocyte % Manual 10(L) 20 - 45 % 01/31/2020 12:54 AM [facility] Monocytes % Manual 3 2 - 10 % 01/31/2020 12:54 AM [facility] Platelet Estimate Adequate Adequate 01/31/2020 12:54 AM [facility] RBC Morphology Normal 01/31/2020 12:54 AM [facility] Blood BLOOD SPECIMEN / Unknown Lab Venipuncture / Unknown 01/30/2020 11:59 PM CDT 01/31/2020 12:06 AM CDT Mesha Bonilla MD LAB - HEMATOLOGY ORDERABLES Performing Organization Address [facility]/State/[facility] Co de Phone Number [facility] [address] [place] [address] * Peripheral Nerve Block (01/30/2020 1:07 PM CDT) Narrative Jasvir Elaine MD - 01/30/2020 1:07 PM CDT Jasvir Elaine MD 01/30/2020 1:10 PM Peripheral Nerve Block Procedure: Peripheral Nerve Block Patient Location: PACU Preprocedure Section: Indications: at surgeon's request. Pre-anesthetic Checklist: Patient identified, Site examined and clear, Pre-op evaluation done, Informed consent obtained, Allergies reviewed, Questions answered/anesthesia questions answered, Time-out performed, Monitors and equipment, Risks and benefits discussed and IV Checked Monitors: BP, Pulse Ox and EKG. Patient Condition: awake Patient Position: supine Patient Sedated? No Procedure Section Laterality: bilateral Block Performed: tap Prep: Chloraprep Strerile Field: gloves, mask, hat/cap and sterile ultrasound sleeve Skin localized with: lidocaine (XYLOCAINE) 1 % injection, 1 mL Needle Type: Echogenic insultaed Needle Gauge: 21 Needle Length: 80 mm Needle Depth: 50 cm Catheter? No Ultrasound Guided? Yes Technique: in plane Visualization: Preliminary scan performed, Important anatomical structures identified, Target identified, Needle tip visualized throughout the procedure, No intraneural or intravascular puncture occurred and Hydrodissection utilized Injection was made incrementally with constant monitoring and aspirations every 5 mL's Injection Assessment: Slow fractionated injection Block Agents or Additives used? No Procedure Tolerance: tolerated well and no immediate complications Assessment: completed Procedure Start Time: 01/30/2020 12:53 PM. Procedure End Time: 01/30/2020 1:02 PM. Procedure Total Time: 9 minutes. Staff Section Anesthesia Provider: Jasvir Elaine MD Provider #1: Ebonie Rosas DO Performed the procedure. Jasvir Elaine MD GENERAL ANESTHE KEN ORDERABLES * SODIUM URINE RANDOM (01/30/2020 12:13 PM CDT) Sodium Urine 82 Not Established mmol/L 01/30/2020 1:33 PM CDT [facility] Urine URINE SPECIMEN OBTAINED BY CLEAN CATCH PROCEDURE / Unknown Collection / Unknown 01/30/2020 12:13 PM CDT 01/30/2020 12:39 PM CDT Aster Chong MD LAB - URINE CHEMISTR Y ORDERABLES [address] [phone] * UREA NITROGEN URINE RANDOM (01/30/2020 12:13 PM CDT) Urea Nitrogen Random Urine 576 Not Established mg/dL 01/30/2020 1:33 PM CDT [facility] Urine URINE SPECIMEN OBTAINED BY CLEAN CATCH PROCEDURE / Unknown Collection / Unknown 01/30/2020 12:13 PM CDT 01/30/2020 12:39 PM CDT Aster Chong MD LAB - URINE CHEMISTR Y ORDERABLES Performing Organization Address [facility] [place] [address], [place] [phone] * POTASSIUM URINE RANDOM (01/30/2020 12:13 PM CDT) Potassium Urine 35 Not Established mmol/L 01/30/2020 1:33 PM CDT [facility] Urine URINE SPECIMEN OBTAINED BY CLEAN CATCH PROCEDURE / Unknown Collection / Unknown 01/30/2020 12:13 PM CDT 01/30/2020 12:39 PM CDT Aster Chong MD LAB - URINE CHEMISTR Y ORDERABLES Performing Organization Address [facility] [place] [address], [place] [phone] * CHLORIDE URINE RANDOM (01/30/2020 12:13 PM CDT) Chloride Random Urine 53 Not Established mmol/L 01/30/2020 1:33 PM CDT [facility] Urine URINE SPECIMEN OBTAINED BY CLEAN CATCH PROCEDURE / Unknown Collection / Unknown 01/30/2020 12:13 PM CDT 01/30/2020 12:39 PM CDT Aster Chong MD LAB - URINE CHEMISTR Y ORDERABLES Performing Organization Address [facility] [place] [address], [place] [phone] * ETT LINE PERFORMABLE (01/28/2020 4:28 PM CDT) Narrative Lor Fulton MD - 01/28/2020 4:28 PM CDT Lor Fulton MD 01/28/2020 4:29 PM Endotracheal Tube Placement: Patient Location: OR. Intubation Event Date/Time: 01/28/2020 3:34 PM Procedure: intubation (36889). Procedure Section: Sedation: under general anesthesia. Indications for Airway Management: anesthesia Induction: rapid sequence Patient Position: sniffing and supine Mask Ventilation: not attempted. Blade Type: Video Blade Size: 4 Laryngoscopy View: grade 1 (full cords) Tube: endotracheal tube Placement: oral Tube type: cuff - inflated Tube Size (MM): 7.5 Depth of Insertion (CM): 24 Measured From: teeth Cuff Inflated With: air Number of Attempts: 1. Placement Verified By: direct visualization, bilateral breath sounds, chest auscultation and CO2 monitor Tube secured with: adhesive tape. Procedure Start Time: 01/28/2020 3:34 PM. Staff Section Anesthesia Provider: Lor Fulton MD, Performed the procedure Junior Colbert MD GENERAL ANESTHESIA O RDERABLES * PREPARE (CROSSMATCH) RBC UNIT(S), 2 Units (01/28/2020 4:51 AM CDT) [facility] Unit Description LR Red Cells [facility] Unit ABO B [facility] Unit Rh POS [facility] Product Number RL1 [facility] Unit Donor # [id number] [facility] Unit Status released [facility] Product [facility] [id number] [facility] Blood Type Barcode 7300 [facility] Unit Description LR Red Cells [facility] Unit ABO B [facility] Unit Rh POS [facility] Product [facility] RL1 [facility] Unit Donor # [id number] [facility] Unit Status released [facility] Product Code [id number] [facility] Blood Type Barcode 7300 [facility] Blood Bank BLOOD SPECIMEN / Unknown 01/28/2020 4:51 AM CDT 01/28/2020 4:58 AM CDT Junior Colbert MD LAB - BLOOD BANK ORD ERABLES [facility] [address] * TROPONIN I (01/28/2020 4:47 AM CDT) [facility] Troponin I 0.014 <0.032 ng/mL 01/28/2020 5:26 AM CDT [facility] Blood BLOOD SPECIMEN / Unknown Venipuncture / Unknown 01/28/2020 4:47 AM CDT 01/28/2020 4:54 AM CDT Jessica Joyce MD LAB - CHEMISTRY ROSALES JERONIMORENARD Performing Organization Address City/[facility]/ZIP Co de Phone Number [address] [phone] * LACTIC ACID BLOOD (01/28/2020 4:47 AM CDT) Lactic Acid-Stat 1.3 0.5 - 2.0 mmol/L 01/28/2020 5:15 AM CDT [facility] Blood BLOOD SPECIMEN / Unknown Venipuncture / Unknown 01/28/2020 4:47 AM CDT 01/28/2020 4:54 AM CDT Jessica Joyce MD LAB - CHEMISTRY ORDJono MANUEL Performing Organization Address City/[facility]/ZIP Co de Phone Number [address] [phone] * MRI CARDIAC STUDY WO CONTRAST (01/21/2019 12:39 PM CDT) Anatomical Region Laterality Modality Magnetic Resonan ce 01/22/2019 12:3 0 PM CDT Impressions 01/24/2019 11:04 AM CDT IMPRESSION: 1. Biventricular hypertrophy. Differential considerations include cardiomyopathy vs. chronic hypertension, however, cardiomyopathy is favored due to the right ventricular hypertrophy. Report dictated by Suresh Carlos DO (radiology orderly). I, Dr. DYLAN RODRIGES M.D. have personally reviewed and interpreted this examination/study. This report was electronically signed by DYLAN RODRIGES M.D. on 01/24/2019 11:04 AM . Narrative 01/24/2019 11:04 AM CDT EXAMINATION: Magnetic resonance imaging (MRI) of the heart without contrast HISTORY: Persistent atrial fibrillation. TECHNIQUE: MRI of the heart was performed without contrast according to a custom protocol monitored by the radiologist. Limited evaluation due to cardiac arrhythmia. COMPARISON: No prior study is available for comparison. FINDINGS: Morphology: A left aortic arch is present. The visible aorta and pulmonary artery are normal in course and caliber. The right ventricle is normal in size without evidence of focal wall motion abnormality. There is mild right ventricular hypertrophy. The left ventricle is normal in size without evidence of focal wall motion abnormality. Marked left ventricular hypertrophy is present. The left atrium is not enlarged. No pericardial effusion is seen. Valves: The aortic, pulmonic, tricuspid, and mitral valves are normal. Noncardiac findings: The visible lungs are clear. There is no mediastinal lymphadenopathy. Procedure Note Dylan Rodriges MD - 01/24/2019 EXAMINATION: Magnetic resonance imaging (MRI) of the heart withoutcontrast HISTORY: Persistent atrial fibrillation. TECHNIQUE: MRI of the heart was performed without contrast according toa custom protocol monitored by the radiologist. Limited evaluation due to cardiac arrhythmia. COMPARISON: No prior study is available for comparison. FINDINGS: Morphology: A left aortic arch is present. The visible aorta andpulmonary artery are normal in course and caliber. The right ventricle is normalin size without evidence of focal wall motion abnormality. There is mild right ventricular hypertrophy. The left ventricle is normal in size without evidence of focal wall motion abnormality. Marked leftventricular hypertrophy is present. The left atrium is not enlarged. No pericardial effusion is seen. Valves: The aortic, pulmonic, tricuspid, and mitral valves are normal. Noncardiac findings: The visible lungs are clear. There is nomediastinal lymphadenopathy. IMPRESSION: 1. Biventricular hypertrophy. Differential considerations include cardiomyopathy vs. chronic hypertension, however, cardiomyopathy is favored due to the right ventricular hypertrophy. Report dictated by Suresh Carlos DO (radiology orderly). I, Dr. DYLAN RODRIGES M.D. have personally reviewed and interpreted this examination/study. This report was electronically signed by DYLAN RODRIGES M.D. on01/24/2019 11:04 AM . Provider Unknown MR ORDERABLES * (ABNORMAL) CREATININE BLOOD - POCT (IP) [facility] (01/21/2019 11:24 AM CDT) Creatinine POCT 3.54(A) 0.3 - 1.3 mg/dL [facility] eGFR POCT 22(A) 60 ml/min [facility] Blood BLOOD SPECIMEN / Unknown 01/21/2019 11:24 AM CDT Provider Unknown LAB - POINT OF CARE ORDERABLES [facility] [address] [phone] Care Teams Educational Program Director Relationship Specialty Start Date End Date Thao Mcqueen Update Information PCP - General 08/22/24
--- OUTSIDE RECORDS SUMMARY | 2024-12-04 22:23 | XMS_ITS | Continuity of Care Document ---
Author Organization [facility] Address [address] [place] [address] Phone Care Team Providers Care Laundry Laborer Name Role Phone Gigi Laguna MD Unavailable Unavailable Allergies, Adverse Reactions, Alerts Substance Reaction Status Criticality morphine Active No Information Medications Medication Instructions Dosage Effective Dates (start - stop) Status Comments Uloric 40 mg tablet - Active AMLODIPINE BESYLATE (unknown strength) take 1 tablet by oral route every day Not Available - Active simvastatin 40 mg tablet take 1 tablet by oral route every day in the evening 40 MG - Active glipizide 5 mg-metformin 500 mg tablet take 1 tablet by oral route 2 times every day with morning and evening meals 1.00 tablet - Active amiodarone 400 mg tablet take 1 tablet by oral route every day 400 MG - Active Eliquis 5 mg tablet take 1 tablet by oral route 2 times every day 5 MG - Active losartan 100 mg tablet take 1 tablet by oral route every day 100 MG - Active SOTALOL (unknown strength) Not Available - Active Procedures Procedure Date UA auto w/o micro Office E&m Estab Low-mod Prostate Spec Antig; Tot Testosterone; Tot Testosterone; Free Sex Hormone Binding Glob UA auto w/o micro Office E&m Estab Mod-hi 2 Flu imm no admin doc emerald UA auto w/o micro Office E&m Estab Mod-hi 2 Prostate Spec Antig; Tot Testosterone; Tot Testosterone; Free Sex Hormone Binding Glob UA auto w/o micro Postop F/u Vis Norm Incl Global 016 UA auto w/o micro Postop F/u Vis Norm Incl Global 016 Rocephin Inj, 250 MG Postop F/u Vis Norm Incl Global 016 Rocephin Inj, 250 MG Postop F/u Vis Norm Incl Global 016 Inflatable , multi-component Penile pros thesis Office E&m Estab Mod-hi 2 Surgery Deposit UA auto w/o micro Offic Cons New/estab Mod-hi 60 15 Prostate Spec Antig; Tot Testosterone; Tot Advance Directives Directive Yes / No Effective Date File Name No Information Encounters Encounter Description Practice Location Reason(s) For Visit Diagnoses Date Provider Providers Copied on Encounter [facility], [address] [place], [place], [id number] , tel: [phone] [place] 2 Office No Information Jase Yu. [address] [place] [address], [address], [place]. tel: [phone] Office E&m Estab Low-mod [facility], [address] [place], [place], [id number] , tel: [phone] [place] 2 Office Erectile dysfunction (chief complaint) Erectile dysfunction due to arterial insufficiency Jase Yu. [address] [place], [address], [place]. tel: [phone] Referring Provider: Sincere Oh, [facility] [address], [place], [address]. tel:[phone] Office E&m Estab Mod-hi 2 [facility], [address] [place] [address], [id number] , [place] tel: [phone] [place] 2 Office Erectile dysfunction (chief complaint) Erectile dysfunction due to arterial insufficiencyDie tary counseling and surveillanceEsse ntial (primary) hypertension Ilan-0 7 Jase Yu. [address] [place] [address], [address], [place]. tel: [phone] Referring Provider: Sincere Oh, [address] [place] [address] Suite [facility], [place], [address]. tel:[phone] Office E&m Estab Mod-hi 2 [facility], [address] [place] [address], [id number] , [place] tel: [phone] [place] 2 Office Erectile dysfunction (chief complaint) Erectile dysfunction due to arterial insufficiency Jun-2 Jase Yu. [address] [place] [address], [address], [place]. tel: [phone] Referring Provider: Sincere Oh, [address] [place] [address] [address], [place], [address]. tel:[phone] [facility], [address] [place] [address], [id number] , tel: [phone] [place] 2 Office Erectile dysfunction (chief complaint) Erectile dysfunction due to arterial insufficiency Mar-2 6 aJse Yu. [address] [place] [address], [address], [place]. tel: [phone] Referring Provider: Sincere Oh, [address] [place], [place] [address]IVFXPERT [facility] [address], [place], [address]. tel:[phone] [facility], [address] [place] [address], [id number] , [place] tel: [phone] [place] 2 Office Erectile dysfunction (chief complaint) Erectile dysfunction due to arterial insufficiency Mar-0 6 Jase Yu. [address] [place] [address], [address], [place]. tel: [phone] Referring Provider: Sincere Oh, [address] [facility] [address], [place], [address]. tel:[phone] [facility], [address] [place] [address], [id number] , [place] tel: [phone] [place] [address] Office Erectile dysfunction (chief complaint) Other male erectile dysfunction 4 6 Jase Yu. [address] [place] [address], [address], [place]. tel: [phone] Referring Provider: Sincere Oh, [address] [facility] [address], [place], [address]. [phone] [facility], [address] [place] [address], [id number] , [place] tel: [phone] [place] [address] Office Erectile dysfunction (chief complaint) Other male erectile dysfunction 7 6 Jase Yu. [address] [place] [address], [address], [place]. tel: [phone] Referring Provider: Gigi Younger, [address] [place] [address], [address]. tel:[phone] [facility], [address] [place] [address], [id number] , [place] tel: [phone] [facility]. No Information 6 6 Jase Yu. [address] [place] [address], [address], [place]. tel: [phone] Referring Provider: Sincere Oh, [address] [facility] [address], [place], [address]. tel:[phone] Office E&m Estab Mod-hi 2 [facility], [address] [place] [address], [id number] , [place] tel: [phone] [place] [address] Office Erectile dysfunction (chief complaint) Erectile dysfunction due to arterial insufficiency Jan-2 2-201 6 Jase Yu. [address] [place] [address], [address], [place]. tel: [phone] Referring Provider: Sincere Oh, [facility] [facility] [address] [facility], [place], [address]. tel:[phone] [facility], [address] [place] [address], [id number] , tel: [phone] [facility] No Information 5 Jase Yu. [address] [place] [address], [address], . tel: [phone] [facility], [address] [place] [address], [id number] , tel: [phone] [facility] Other male erectile dysfunctionOth diabetes mellitus with oth diabetic kidney complication 5 Jase Yu. [address] [place] [address], [address], . tel: [phone] Offic Cons New/estab Mod-hi 60 [facility], [address] [place] [address], [id number] , tel: [phone] [facility] Erectile dysfunction (chief complaint)Fr equent urination (chief complaint) Urinary FrequencyErectil e Dysfunction 5 Jase Yu. [address] [place] [address], [address], . tel: [phone] Referring Provider: Sincere Oh, [facility] [address] [facility], [place], [address]. tel:[phone] Family History Family Member Type Diagnosis Age At Onset Father Problem (finding) gout Father Problem (finding) hypertension Father Problem (finding) Leukemia Father Problem (finding) diabetes mellitus type 2 Payers Payer name Insurance type Covered republican ID Authoriza tion(s) No Information Social History Type Description Quantity Date Captured Comments Sex Male Smoking Status No Information Chief Complaint And Reason For Visit No Information Reason For Referral Reason For Referral No Information History Of Present Illness Encounter Date Complaint History Of Prese nt Illness Erectile dysfunction The symptom s began gradually, have been mild and are unchanged. The patient is here today for a follow up visit. The patient states he does have difficultly attaining an erection and has difficulty maintaining an erection. Pertinent history includes use of antihypertensives and cardiovascular disease but not diabetes or neurologic disease. Current medications: Viagra 100 mg tablet with no side effects. . Reviewed today was a Testosterone, free taken on 12/25/2014 with findings of 0.070 pg/mL. Testosterone taken on 06/26/2014 with findings of 4.48 ng/dL. He acknowledges libido is low but denies depression, difficulty ejaculating with intercourse, difficulty ejaculating with masturbation, inability to function well with masturbation, morning erections, nocturnal erections, pain with erections, painful ejaculation, penile inflammation, premature ejaculation, unable to have intercourse or weight gain. Additional information: IPP functional. Erectile dysfunction The symptom s have been mild and are unchanged. The patient is here today for a follow up visit. The patient states he does have difficultly attaining an erection and has difficulty maintaining an erection. Pertinent history includes use of antihypertensives and cardiovascular disease but not diabetes or neurologic disease. Current medications: Viagra 100 mg tablet with no side effects. . Reviewed today was a Testosterone, free taken on 12/25/2014 with findings of 0.070 pg/mL. Testosterone taken on 06/26/2014 with findings of 4.48 ng/dL. He acknowledges libido is low but denies depression, difficulty ejaculating with intercourse, difficulty ejaculating with masturbation, inability to function well with masturbation, morning erections, nocturnal erections, pain with erections, painful ejaculation, penile inflammation, premature ejaculation, unable to have intercourse or weight gain. Additional information: pt c/o urgency and nocturia x 2. Had single episode of hematuria which has resolved. Erectile dysfunction The symptom s began gradually, have been mild and are unchanged. The patient is here today for a follow up visit. The patient states he does have difficultly attaining an erection and has difficulty maintaining an erection. Pertinent history includes use of antihypertensives and cardiovascular disease but not diabetes or neurologic disease. Current medications: Viagra 100 mg tablet with no side effects. . Reviewed today was a Testosterone, free taken on 12/25/2014 with findings of 0.070 pg/mL. Testosterone taken on 06/26/2014 with findings of 4.48 ng/dL. He acknowledges libido is low but denies depression, difficulty ejaculating with intercourse, difficulty ejaculating with masturbation, inability to function well with masturbation, morning erections, nocturnal erections, pain with erections, painful ejaculation, penile inflammation, premature ejaculation, unable to have intercourse or weight gain. Additional information: IPP functioning well. Erectile dysfunction The symptom s began gradually, have been mild and are unchanged. The patient is here today for a follow up visit. The patient states he does have difficultly attaining an erection and has difficulty maintaining an erection. Pertinent history includes use of antihypertensives and cardiovascular disease but not diabetes or neurologic disease. Current medications: Viagra 100 mg tablet with no side effects. . Reviewed today was a Testosterone, free taken on 12/25/2014 with findings of 0.070 pg/mL. Testosterone taken on 06/26/2014 with findings of 4.48 ng/dL. He acknowledges libido is low but denies depression, difficulty ejaculating with intercourse, difficulty ejaculating with masturbation, inability to function well with masturbation, morning erections, nocturnal erections, pain with erections, painful ejaculation, penile inflammation, premature ejaculation, unable to have intercourse or weight gain. Additional information: Doing well post IPP. Erectile dysfunction The symptom s began gradually, have been mild and are unchanged. The patient is here today for a follow up visit. The patient states he does have difficultly attaining an erection and has difficulty maintaining an erection. Pertinent history includes use of antihypertensives and cardiovascular disease but not diabetes or neurologic disease. Current medications: Viagra 100 mg tablet with no side effects. . Reviewed today was a Testosterone, free taken on 12/25/2014 with findings of 0.070 pg/mL. Testosterone taken on 06/26/2014 with findings of 4.48 ng/dL. He acknowledges libido is low but denies depression, difficulty ejaculating with intercourse, difficulty ejaculating with masturbation, inability to function well with masturbation, morning erections, nocturnal erections, pain with erections, painful ejaculation, penile inflammation, premature ejaculation, unable to have intercourse or weight gain. Additional information: Patient is having follow-up visit after penile implant. Patient states that he is still sore, tender, burn when urinate. Erectile dysfunction The symptom s began gradually, have been mild and are unchanged. The patient is here today for a follow up visit. The patient states he does have difficultly attaining an erection and has difficulty maintaining an erection. Pertinent history includes use of antihypertensives and cardiovascular disease but not diabetes or neurologic disease. Current medications: Viagra 100 mg tablet with no side effects. . Reviewed today was a Testosterone, free taken on 12/25/2014 with findings of 0.070 pg/mL. Testosterone taken on 06/26/2014 with findings of 4.48 ng/dL. He acknowledges libido is low but denies depression, difficulty ejaculating with intercourse, difficulty ejaculating with masturbation, inability to function well with masturbation, morning erections, nocturnal erections, pain with erections, painful ejaculation, penile inflammation, premature ejaculation, unable to have intercourse or weight gain. Additional information: post IPP fu c/o pain. Erectile dysfunction Pertinent h istory includes use of antihypertensives, cardiovascular disease and hypertension but not diabetes or neurologic disease. He denies depression. Additional information: Needs pain med refill; patient is post-op penile prosthesis on 02/15/16 and still in a lot of pain. Erectile dysfunction The symptom s began gradually, have been mild and are unchanged. The patient is here today for a follow up visit. The patient states he does have difficultly attaining an erection and has difficulty maintaining an erection. Pertinent history includes use of antihypertensives and cardiovascular disease but not diabetes or neurologic disease. Current medications: Viagra 100 mg tablet with no side effects. . Reviewed today was a Testosterone, free taken on 12/25/2014 with findings of 0.070 pg/mL. Testosterone taken on 06/26/2014 with findings of 4.48 ng/dL. He acknowledges libido is low but denies depression, difficulty ejaculating with intercourse, difficulty ejaculating with masturbation, inability to function well with masturbation, morning erections, nocturnal erections, pain with erections, painful ejaculation, penile inflammation, premature ejaculation, unable to have intercourse or weight gain. Additional information: patient here for pre-0p consent form signed. Erectile dysfunction The symptom s began gradually, have been mild and are unchanged. The patient is here today for a follow up visit. The patient states he does have difficultly attaining an erection and has difficulty maintaining an erection. Pertinent history includes use of antihypertensives, cardiovascular disease, history of diabetes, hypertension, trauma and peripheral vascular disease but not use of beta blockers, neurologic disease, nitroglycerine usage, pelvic surgery or penile fracture. Current medications: Viagra 100 mg tablet with no side effects. . Reviewed today was a Testosterone, free taken on 12/25/2014 with findings of 0.070 pg/mL. Testosterone taken on 06/26/2014 with findings of 4.48 ng/dL. He acknowledges libido is low but denies depression, difficulty ejaculating with intercourse, difficulty ejaculating with masturbation, inability to function well with masturbation, morning erections, nocturnal erections, pain with erections, painful ejaculation, penile inflammation, premature ejaculation, unable to have intercourse or weight gain. Frequent urination The onset was gradual. Patient reports no pain. It occurs intermittently. The problem is unchanged. Leakage is not caused by coughing, dancing, intercourse, laughing, lifting, lack of sensation, sneezing, standing, strenuous exercise and urgency or walking. The patient does not report any of the following neurological symptoms: anorgasmia, CAFETERIA MANAGER tumor/trauma/surgery, CVA, diabetes, multiple sclerosis, numbness in extremities, Parkinson's disease, self catheterization, spine disease or vision changes. Pertinent negatives include constipation, dysuria, fecal incontinence, fever, urinary frequency, hematuria, urinary hesitancy, incomplete emptying, leakage requiring pads, nocturia, pain, pelvic pain, slow stream, strain to urinate, urgency, recurrent UTI, history of diabetes, history of positive cultures and history of childhood UTIs. Patient is sexually active. Functional Status Date Functional Assessmen t No Information Instructions Date Instruction Additional Infor mation Giving encouragement to exercise Related to Dietary Surveil/group home counselor Giving encouragement to exercise Related to Hypertension, Unspecified The patient verbaliz ed an understanding of medical conditions, instructions, treatment plan, and importance of compliance. Related to Erectile dysfunction due to arterial insufficiency post op pain Related to Other male erectile dysfunction To see patient educator Related to Erectile Dysfunction Discussed KARLA, indic ations, use, risks, benefits. Related to Erectile Dysfunction Discussed risks of penile inject ion. Related to Erectile Dysfunction Assessments Type Assessment Date No Information Patient Care Teams Name Effective Dates (start - stop) Status Members No Information
--- OUTSIDE RECORDS SUMMARY | 2024-12-04 22:23 | XMS_ITS ---
Author Organization [facility] Address [address] [facility] [address] Care Team Providers Care Delivery Technician Name Role Phone Thao Mcqueen Primary Care Provider Unavailab le Transplant Episode Kidney Candidate [facility] ([place], [place]) [facility] waitlisted on 12/30/2023 Marked as Active on 06/23/2024 Kidney CoordinatorAntonette Hill RN Phone: N/A Fax: N/A Email: N/A Scores Score Value Updated Exceptions/Reas ons CPRA Not available EPTS (Calc) 88 12/04/2024 [place] Organ Diagnosis Organ Primary Contributory Kidney Diabetes Mellitus - Type II Hype rtensive Nephrosclerosis Care Team Name Role Phone Fax Email Antonette Hill RN Kidney Coordinator N/A N/A N/A Angela Augustin Referring Physician N/A N/A N/A Kenia Carroll Dicer Machine Operator N/A N/A N/A Events Pre-Transplant Referred: 11/12/2022 Evaluation began: 04/28/2023 Committee: 12/10/2023 UNOS qualified: 01/21/2019 Center waitlisted: 12/30/2023 Appointments (11/03/2024 - 01/01/2025) When With Visit Type Description 11/22/2024 Transplant [facility] Education Transplant Can celed (Provider ) 11/22/2024 Transplant Slh Education Transplant Can celed (Provider ) 11/23/2024 Transplant Sl Education Transplant No Show 11/23/2024 Transplant [facility] Education Transplant No Show Dialysis History Dialysis History Start End Type Comments Center 02/15/2024 [facility]-center Hemodialysis [facility] In-center Hemodialysis [facility]/R[facility] Dialysis Center Information Center Phone Fax Address [facility] [phone] [address] [facility] [address] [facility] [phone] [address] [facility] [address] [facility] [address]
--- OUTSIDE RECORDS SUMMARY | 2024-12-04 22:24 | XMS_ITS | Clinical Summary ---
Author Organization [facility] Address [facility] [place] [address] Care Team Providers Care Powerhouse Operator Name Role Phone Una Moody FUNMI Primary Care Provider [phone] Allergies No known active allergies Medications aspirin EC 81 MG EC tablet Take 81 mg by mouth daily. Active atorvastatin 80 MG tablet Take 80 mg by mouth daily. Active nitroglycerin 0.[address] 0.4 mg under the tongue every 5 (five) minutes as needed for Chest Pain. Active Dulaglutide 0.75 MG/0.5ML Solution Pen-injector Inject 0.5 mLs into the skin weekly. Active febuxostat 40 MG tablet Take 40 mg by mouth daily. Active insulin detemir 100 UNIT/ML flextouch PEN Inject 24 Units into the skin 2 (two) times daily. Active metoprolol succinate 50 MG 24 hr tablet Take 12.5 mg by mouth daily. Active sodium bicarbonate 650 MG tablet Take 650 mg by mouth daily. Active warfarin 5 MG tablet Take 5 mg by mouth daily. 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 Gender Identity Not on file Sexual Orientation Not on file Last Filed Vital Signs Vital Sign Reading Time Taken Comments Blood Pressure 149/89 10/25/2018 5:24 PM PROPERTY OFFICER Pulse 60 10/25/2018 5:24 PM PROPERTY OFFICER Temperature 36.6 C (97.8 F) 10/25/2018 1:03 PM PROPERTY OFFICER Respiratory Rate 20 10/25/2018 5:24 PM PROPERTY OFFICER Oxygen Saturation 98% 10/25/2018 5:24 PM PROPERTY OFFICER Inhaled Oxygen Concentration - - Weight 92.3 kg (203 lb 7.8 oz) 10/25/2018 1:03 P M PROPERTY OFFICER Height 175.3 cm (5' 9 ) 10/25/2018 1:03 PM PROPERTY OFFICER Body Mass Index 30.05 10/25/2018 1:03 PM PROPERTY OFFICER Plan of Treatment Health Maintenance Due Date Last Done Comments Colorectal Cancer Screening Colonoscopy (10 Years) 1954 Hepatitis C 1972 DTaP, Tdap and Td Vaccines ( 1 - Tdap) 1973 Zoster Vaccines (1 of 2) 2004 Pneumococcal Vaccine: 65+ Ye ars (1 of 1 - PCV) 2019 COVID-19 Vaccine (1 - 2023-2 5 season) 2024 Influenza Adult (#1) 2024 RSV Immunization or 60+ Years (1 - 1-dose 75+ series) 2029 Meningococcal B Vaccine Aged Out No l onger eligible based on patient's age to complete this topic Meningococcal Vaccine Aged Out No alexandra mahamed eligible based on patient's age to complete this topic RSV Immunizations Under 20 Months Aged Out No longer eligible based on patient's age to complete this topic Care Teams Powerhouse Operator Relationship Specialty Start Date End Date Una Moody NP [address] [facility] [address] PCP - General NURSE PRACTITIONER 10/25/18
--- OUTSIDE RECORDS SUMMARY | 2024-12-04 22:24 | XMS_ITS ---
Author Organization [facility] ([facility]) Address [address] [place] [id number] Care Team Providers Care Substance Abuse Services Director Name Role Phone Unavailable Unavailable Unavailable Allergies, Adverse Reactions, Alerts Allergy Name Allergy Type Status Severity Reaction(s) Onset Date Inactive Date Treating Clinician Comments Morphine and Related Allergy Active Moderate Allergy 2024-02 21:09:5 6 Medications Ordered Medication Name Filled Medication Name Start Date Stop Date Current Medication? Ordering Clinician Indication Dosage Frequency Signature (SIG) Comments Components Omeprazole 11-26 19:14: 23 Yes Number of Repeats Allowed: Frequency: One time a day Magnesium 11-26 19:13: 32 Yes Number of Repeats Allowed: Frequency: One time a day Febuxostat 11-26 19:12: 57 Yes Number of Repeats Allowed: Frequency: One time a day Atorvastati n Calcium 11-26 19:10: 49 Yes Number of Repeats Allowed: Frequency: Every evening Tamsulosin HCl 11-26 19:09: 46 Yes Number of Repeats Allowed: Frequency: One time a day NIFEdipine ER 11-26 19:08: 55 Yes Number of Repeats Allowed: Frequency: Once a day, at bedtime Eliquis 11-26 19:07: 33 Yes Number of Repeats Allowed: Frequency: Two times a day Carvedilol 11-26 19:06: 48 Yes Number of Repeats Allowed: Frequency: Two times a day calcitriol 11-21 16:30: 07 Yes [id number] Number of Repeats Allowed: Frequency: Two times a week calcitriol 11-07 19:51: 50 Yes [id number] Number of Repeats Allowed: Frequency: Two times a week Insta-Gluco se 2023-10 19:48: 58 Yes [id number] Number of Repeats Allowed: Frequency: As needed calcitriol 2023-10 18:18: 17 Yes [id number] Number of Repeats Allowed: Frequency: Two times a week Venofer 06-10 11:54: 59 Yes [id number] Number of Repeats Allowed: Frequency: One time a weekDosesO rdered: Maintenanc e Dose 50 Milligram Route: Intravenou s Tums E-X 750 02-14 16:57: 50 Yes [id number] Number of Repeats Allowed: Frequency: Every 4 hours as needed Oxygen 02-14 16:57: 44 Yes [id number] Number of Repeats Allowed: Frequency: As needed ondansetron hydrochlori de 02-14 16:57: 39 Yes [id number] Number of Repeats Allowed: Frequency: Every 4 hours as needed Normal Saline Solution 0.9% NaCl 02-14 16:57: 33 Yes [id number] Number of Repeats Allowed: Frequency: As needed EpiPen 2-Carmine 02-14 16:57: 28 Yes [id number] Number of Repeats Allowed: Frequency: Every 4 hours as needed diphenhydra mine hydrochlori de 02-14 16:57: 22 Yes [id number] Number of Repeats Allowed: Frequency: Every 4 hours as needed diphenhydra mine hydrochlori de 02-14 16:57: 14 Yes [id number] Number of Repeats Allowed: Frequency: Every 4 hours as needed clonidine 02-14 16:57: 01 Yes [id number] Number of Repeats Allowed: Frequency: Every 4 hours as needed acetaminoph en 02-14 16:56: 49 Yes [id number] Number of Repeats Allowed: Frequency: Every 4 hours as needed heparin sodium, porcine 02-14 16:56: 34 Yes [id number] Number of Repeats Allowed: Frequency: Every Dialysis TreatmentD osesOrdere d: Hourly Dose 600 Units/Hr 1:1000 Units/mLRo [place]: Intravenou s heparin sodium, porcine 02-14 16:56: 34 Yes [id number] Number of Repeats Allowed: Frequency: Every Dialysis TreatmentD osesOrdere d: Loading Dose 1000 Units 1:1000 Units/mLRo [place]: Intravenou s Problems This patient has no known problems. Procedures Procedure Date / Time Performed Performing Clinician Itzel ce Details AV Fistula 2022-11-12 06:00:00 Access Site Upper Arm (Left) Access Use Start Date 2024-02-15 00:00:0 0 DIALYSIS TREATMENT INFORMATION Conventional Hemodialysis Date Type Treatment Start Date Treatment End Date Pre-Treatment Vitals Post-Treatment Vitals Weight Gain BFR DFR Actual UF Dialysis Access 2024 In-Ce nter Hemod ialys is Treat ment 2024-11-29 T16:29:50. 000Z 2024-11-29 T19:08:35. 000Z BP Sitting (Pre-Dialysis) 136/60 mmHg BP Sitting (Post-D ialysis ) 153/ 76 mmHg BP Standing (Pre-Dialysis) 132/65 mmHg BP Standing (P ost-Dialysis) 131/69 mmHg Sitting Heart Rate Pre-Dialysis 60 BPM Sitting Heart Rate Post-Dialysis 69 BPM Standing Heart Rate Pre-Dialysis 68 BPM Standing Heart Rate Post-Dialysis 62 BPM Temperature Pre-Dialysis 97.3 degF Temperature Post -Dialysis 98.2 degF November 26, 2024 In-Center Hemodialysis Treatment [id number]:01:43.000Z 6177-16-38I12:31:43.000Z BP Sitting (Pre-Dialysis) 161/75 mmHg BP Sitting (Post-Dialysis) 144/75 mmHg Concurrent Access: falseAV Fistula Upper Arm (Left) Arterial BP Standing (Pre-Dialysis) 158/84 mmHg BP Standing (P ost-Dialysis) 169/79 mmHg Sitting Heart Rate Pre-Dialysis 71 BPM Sitting Heart Rate Post-Dialysis 70 BPM Standing Heart Rate Pre-Dialysis 76 BPM Standing Heart Rate Post-Dialysis 103 BPM Temperature Pre-Dialysis 97.2 degF Temperature Post -Dialysis 98.1 degF November 22, 2024 In-Center Hemodialysis Treatment [id number]:51:00.000Z 0804-49-15B62:23:28.000Z BP Sitting (Pre-Dialysis) 174/84 mmHg BP Sitting (Post-Dialysis) 156/84 mmHg Concurrent Access: falseAV Fistula Upper Arm (Left) Arterial BP Standing (Pre-Dialysis) 171/84 mmHg BP Standing (P ost-Dialysis) 119/70 mmHg Sitting Heart Rate Pre-Dialysis 66 BPM Sitting Heart Rate Post-Dialysis 69 BPM Standing Heart Rate Pre-Dialysis 73 BPM Standing Heart Rate Post-Dialysis 69 BPM Temperature Pre-Dialysis 96.6 degF Temperature Post -Dialysis 98 degF November 19, 2024 In-Center Hemodialysis Treatment [id number]:39:43.000Z 6846-37-68K71:08:03.000Z BP Sitting (Pre-Dialysis) 163/87 mmHg BP Sitting (Post-Dialysis) 170/84 mmHg Concurrent Access: falseAV Fistula Upper Arm (Left) Arterial BP Standing (Pre-Dialysis) 182/86 mmHg Sitti ng Heart Rate Post-Dialysis 66 BPM Sitting Heart Rate Pre-Dialysis 70 BPM Temperatu re Post-Dialysis 97.6 degF Standing Heart Rate Pre-Dialysis 65 BPM Temperature Pre-Dialysis 97.2 degF November 15, 2024 In-Center Hemodialysis Treatment 4867-42-96V14:04:00.000Z [id number]:20:15.000Z BP Sitting (Pre-Dialysis) 163/82 mmHg BP Sitting (Post-Dialysis) 150/91 mmHg Concurrent Access: falseAV Fistula Upper Arm (Left) Arterial BP Standing (Pre-Dialysis) 165/82 mmHg BP Standing (P ost-Dialysis) 142/86 mmHg Sitting Heart Rate Pre-Dialysis 70 BPM Sitting Heart Rate Post-Dialysis 74 BPM Standing Heart Rate Pre-Dialysis 74 BPM Standing Heart Rate Post-Dialysis 73 BPM Temperature Pre-Dialysis 98 degF Temperature Post -Dialysis 98 degF November 12, 2024 In-Center Hemodialysis Treatment 1622-55-16U10:07:46.000Z 9431-67-88M08:18:11.000Z BP Sitting (Pre-Dialysis) 172/90 mmHg BP Sitting (Post-Dialysis) 170/84 mmHg Concurrent Access: falseAV Fistula Upper Arm (Left) Arterial BP Standing (Pre-Dialysis) 163/89 mmHg BP Standing (P ost-Dialysis) 120/70 mmHg Sitting Heart Rate Pre-Dialysis 64 BPM Sitting Heart Rate Post-Dialysis 63 BPM Standing Heart Rate Pre-Dialysis 69 BPM Standing Heart Rate Post-Dialysis 78 BPM Temperature Pre-Dialysis 98.7 degF Temperature Post -Dialysis 97 degF November 08, 2024 In-Center Hemodialysis Treatment [id number]:51:00.000Z 5810-56-12K66:17:33.000Z BP Sitting (Pre-Dialysis) 174/86 mmHg BP Sitting (Post-Dialysis) 170/86 mmHg Concurrent Access: falseAV Fistula Upper Arm (Left) Arterial BP Standing (Pre-Dialysis) 177/83 mmHg BP Standing (P ost-Dialysis) 169/85 mmHg Sitting Heart Rate Pre-Dialysis 63 BPM Sitting Heart Rate Post-Dialysis 66 BPM Standing Heart Rate Pre-Dialysis 67 BPM Standing Heart Rate Post-Dialysis 71 BPM Temperature Pre-Dialysis 97.3 degF Temperature Post -Dialysis 97.8 degF November 05, 2024 In-Center Hemodialysis Treatment [id number]:44:00.000Z 9523-52-87Z07:15:35.000Z BP Sitting (Pre-Dialysis) 173/84 mmHg BP Sitting (Post-Dialysis) 167/88 mmHg Concurrent Access: falseAV Fistula Upper Arm (Left) Arterial BP Standing (Pre-Dialysis) 153/90 mmHg BP Standing (P ost-Dialysis) 168/85 mmHg Sitting Heart Rate Pre-Dialysis 59 BPM Sitting Heart Rate Post-Dialysis 66 BPM Standing Heart Rate Pre-Dialysis 65 BPM Standing Heart Rate Post-Dialysis 69 BPM Temperature Pre-Dialysis 97.2 degF Temperature Post -Dialysis 97.3 degF November 01, 2024 In-Center Hemodialysis Treatment [id number]:09:29.000Z 8187-85-82B94:06:34.000Z BP Sitting (Pre-Dialysis) 160/90 mmHg BP Sitting (Post-Dialysis) 156/78 mmHg Concurrent Access: falseAV Fistula Upper Arm (Left) Arterial BP Standing (Pre-Dialysis) 150/71 mmHg BP Standing (P ost-Dialysis) 139/76 mmHg Sitting Heart Rate Pre-Dialysis 67 BPM Sitting Heart Rate Post-Dialysis 66 BPM Standing Heart Rate Pre-Dialysis 72 BPM Standing Heart Rate Post-Dialysis 73 BPM Temperature Pre-Dialysis 97.7 degF Temperature Post -Dialysis 98.1 degF October 29, 2024 In-Center Hemodialysis Treatment [id number]:43:32.000Z [id number]:57:17.000Z BP Sitting (Pre-Dialysis) 148/72 mmHg BP Sitting (Post-Dialysis) 137/70 mmHg Concurrent Access: falseAV Fistula Upper Arm (Left) Arterial BP Standing (Pre-Dialysis) 132/65 mmHg BP Standing (P ost-Dialysis) 131/65 mmHg Sitting Heart Rate Pre-Dialysis 61 BPM Sitting Heart Rate Post-Dialysis 62 BPM Standing Heart Rate Pre-Dialysis 64 BPM Standing Heart Rate Post-Dialysis 64 BPM Temperature Pre-Dialysis 97.1 degF Temperature Post -Dialysis 98.3 degF October 25, 2024 In-Center Hemodialysis Treatment [id number]:59:00.000Z [id number]:49:12.000Z BP Sitting (Pre-Dialysis) 112/46 mmHg BP Sitting (Post-Dialysis) 123/65 mmHg Concurrent Access: falseAV Fistula Upper Arm (Left) Arterial BP Standing (Pre-Dialysis) 121/61 mmHg Sitti ng Heart Rate Post-Dialysis 56 BPM Sitting Heart Rate Pre-Dialysis 51 BPM Temperatu re Post-Dialysis 98.1 degF Standing Heart Rate Pre-Dialysis 55 BPM Temperature Pre-Dialysis 97.1 degF October 22, 2024 In-Center Hemodialysis Treatment [id number]:05:00.000Z 9471-51-47Q58:21:33.000Z BP Sitting (Pre-Dialysis) 179/83 mmHg BP Sitting (Post-Dialysis) 172/90 mmHg Concurrent Access: falseAV Fistula Upper Arm (Left) Arterial BP Standing (Pre-Dialysis) 163/86 mmHg BP Standing (P ost-Dialysis) 153/83 mmHg Sitting Heart Rate Pre-Dialysis 66 BPM Sitting Heart Rate Post-Dialysis 70 BPM Standing Heart Rate Pre-Dialysis 74 BPM Standing Heart Rate Post-Dialysis 88 BPM Temperature Pre-Dialysis 97.5 degF Temperature Post -Dialysis 98.4 degF October 18, 2024 In-Center Hemodialysis Treatment 6422-16-43J05:01:00.000Z 1191-88-59Q00:34:15.000Z BP Sitting (Pre-Dialysis) 116/61 mmHg BP Sitting (Post-Dialysis) 112/54 mmHg Concurrent Access: falseAV Fistula Upper Arm (Left) Arterial BP Standing (Pre-Dialysis) 107/60 mmHg BP Standing (P ost-Dialysis) 120/56 mmHg Sitting Heart Rate Pre-Dialysis 65 BPM Sitting Heart Rate Post-Dialysis 55 BPM Standing Heart Rate Pre-Dialysis 71 BPM Standing Heart Rate Post-Dialysis 90 BPM Temperature Pre-Dialysis 96.8 degF Temperature Post -Dialysis 98.1 degF October 15, 2024 In-Center Hemodialysis Treatment [id number]:19:09.000Z 0632-93-19I27:51:02.000Z BP Sitting (Pre-Dialysis) 169/87 mmHg BP Sitting (Post-Dialysis) 179/95 mmHg Concurrent Access: falseAV Fistula Upper Arm (Left) Arterial BP Standing (Pre-Dialysis) 186/82 mmHg Sitting Heart Rate Post-Dialysis 64 BPM Sitting Heart Rate Pre-Dialysis 64 BPM Temperatu re Post-Dialysis 98 degF Standing Heart Rate Pre-Dialysis 67 BPM Temperature Pre-Dialysis 98 degF October 10, 2024 In-Center Hemodialysis Treatment [id number]:02:00.000Z 5480-56-13Q80:39:07.000Z BP Sitting (Pre-Dialysis) 193/98 mmHg BP Sitting (Post-Dialysis) 157/92 mmHg Concurrent Access: falseAV Fistula Upper Arm (Left) Arterial BP Standing (Pre-Dialysis) 168/86 mmHg Sitting Heart Rate Post-Dialysis 67 BPM Sitting Heart Rate Pre-Dialysis 63 BPM Temperatu re Post-Dialysis 98 degF Standing Heart Rate Pre-Dialysis 66 BPM Temperature Pre-Dialysis 97.6 degF October 08, 2024 In-Center Hemodialysis Treatment [id number]:15:00.000Z 1795-11-01L05:46:57.000Z BP Sitting (Pre-Dialysis) 160/74 mmHg BP Sitting (Post-Dialysis) 159/88 mmHg Concurrent Access: falseAV Fistula Upper Arm (Left) Arterial BP Standing (Pre-Dialysis) 140/72 mmHg Sitting Heart Rate Post-Dialysis 73 BPM Sitting Heart Rate Pre-Dialysis 58 BPM Standing Heart Rate Pre-Dialysis 62 BPM Temperature Pre-Dialysis 98 degF October 03, 2024 In-Center Hemodialysis Treatment 2373-16-65S16:43:00.000Z 2675-43-13S53:17:09.000Z BP Sitting (Pre-Dialysis) 162/71 mmHg BP Sitting (Post-Dialysis) 159/79 mmHg Concurrent Access: falseAV Fistula Upper Arm (Left) Arterial BP Standing (Pre-Dialysis) 164/80 mmHg BP Standing (P ost-Dialysis) 153/85 mmHg Sitting Heart Rate Pre-Dialysis 66 BPM Sitting Heart Rate Post-Dialysis 69 BPM Standing Heart Rate Pre-Dialysis 72 BPM Standing Heart Rate Post-Dialysis 74 BPM Temperature Pre-Dialysis 97.7 degF September 27, 2024 In-Center Hemodialysis Treatment [id number]:55:00.000Z 4207-76-48K87:17:21.000Z BP Sitting (Pre-Dialysis) 154/74 mmHg BP Sitting (Post-Dialysis) 135/63 mmHg Concurrent Access: falseAV Fistula Upper Arm (Left) Arterial BP Standing (Pre-Dialysis) 159/83 mmHg BP Standing (P ost-Dialysis) 130/54 mmHg Sitting Heart Rate Pre-Dialysis 63 BPM Sitting Heart Rate Post-Dialysis 66 BPM Standing Heart Rate Pre-Dialysis 70 BPM Standing Heart Rate Post-Dialysis 77 BPM Temperature Pre-Dialysis 97.8 degF Temperature Post -Dialysis 98 degF September 24, 2024 In-Center Hemodialysis Treatment [id number]:02:00.000Z 9454-46-64W75:25:51.000Z BP Sitting (Pre-Dialysis) 186/88 mmHg BP Sitting (Post-Dialysis) 128/80 mmHg Concurrent Access: falseAV Fistula Upper Arm (Left) Arterial BP Standing (Pre-Dialysis) 174/86 mmHg BP Standing (P ost-Dialysis) 127/80 mmHg Sitting Heart Rate Pre-Dialysis 62 BPM Sitting Heart Rate Post-Dialysis 64 BPM Standing Heart Rate Pre-Dialysis 66 BPM Standing Heart Rate Post-Dialysis 71 BPM Temperature Pre-Dialysis 97.1 degF Temperature Post -Dialysis 98 degF September 20, 2024 In-Center Hemodialysis Treatment [id number]:01:40.000Z 5986-16-07T17:26:45.000Z BP Sitting (Pre-Dialysis) 138/70 mmHg BP Sitting (Post-Dialysis) 138/63 mmHg Concurrent Access: falseAV Fistula Upper Arm (Left) Arterial BP Standing (Pre-Dialysis) 136/66 mmHg BP Standing (P ost-Dialysis) 112/62 mmHg Sitting Heart Rate Pre-Dialysis 64 BPM Sitting Heart Rate Post-Dialysis 52 BPM Standing Heart Rate Pre-Dialysis 64 BPM Standing Heart Rate Post-Dialysis 73 BPM Temperature Pre-Dialysis 97.9 degF Temperature Post -Dialysis 97.8 degF September 17, 2024 In-Center Hemodialysis Treatment [id number]:47:36.000Z 9750-24-54G55:16:53.000Z BP Sitting (Pre-Dialysis) 176/84 mmHg BP Sitting (Post-Dialysis) 161/90 mmHg Concurrent Access: falseAV Fistula Upper Arm (Left) Arterial BP Standing (Pre-Dialysis) 173/86 mmHg BP Standing (P ost-Dialysis) 144/79 mmHg Sitting Heart Rate Pre-Dialysis 65 BPM Sitting Heart Rate Post-Dialysis 64 BPM Standing Heart Rate Pre-Dialysis 70 BPM Standing Heart Rate Post-Dialysis 72 BPM Temperature Pre-Dialysis 97.2 degF September 13, 2024 In-Center Hemodialysis Treatment [id number]:29:00.000Z 3501-50-12G81:15:08.000Z BP Sitting (Pre-Dialysis) 173/103 mmHg BP Sitting (Post-Dialysis) 155/91 mmHg Concurrent Access: falseAV Fistula Upper Arm (Left) Arterial BP Standing (Pre-Dialysis) 170/82 mmHg BP Standing (P ost-Dialysis) 146/97 mmHg Sitting Heart Rate Pre-Dialysis 67 BPM Sitting Heart Rate Post-Dialysis 64 BPM Standing Heart Rate Pre-Dialysis 70 BPM Standing Heart Rate Post-Dialysis 75 BPM Temperature Pre-Dialysis 97.6 degF Temperature Post -Dialysis 97.3 degF September 10, 2024 In-Center Hemodialysis Treatment [id number]:04:00.000Z [id number]:21:15.000Z BP Sitting (Pre-Dialysis) 155/93 mmHg BP Sitting (Post-Dialysis) 171/82 mmHg Concurrent Access: falseAV Fistula Upper Arm (Left) Arterial BP Standing (Pre-Dialysis) 159/88 mmHg BP Standing (P ost-Dialysis) 171/85 mmHg Sitting Heart Rate Pre-Dialysis 65 BPM Sitting Heart Rate Post-Dialysis 64 BPM Standing Heart Rate Pre-Dialysis 69 BPM Standing Heart Rate Post-Dialysis 62 BPM Temperature Pre-Dialysis 97.3 degF Temperature Post -Dialysis 97.6 degF September 05, 2024 In-Center Hemodialysis Treatment 1341-80-53Y72:02:00.000Z 2873-41-06V74:12:23.000Z BP Sitting (Pre-Dialysis) 165/82 mmHg BP Sitting (Post-Dialysis) 147/84 mmHg Concurrent Access: falseAV Fistula Upper Arm (Left) Arterial BP Standing (Pre-Dialysis) 165/97 mmHg BP Standing (P ost-Dialysis) 136/75 mmHg Sitting Heart Rate Pre-Dialysis 65 BPM Sitting Heart Rate Post-Dialysis 65 BPM Standing Heart Rate Pre-Dialysis 67 BPM Standing Heart Rate Post-Dialysis 71 BPM Temperature Pre-Dialysis 97.6 degF Temperature Post -Dialysis 98 degF September 03, 2024 In-Center Hemodialysis Treatment [id number]:51:26.000Z 5982-60-12C57:13:31.000Z BP Sitting (Pre-Dialysis) 128/63 mmHg BP Sitting (Post-Dialysis) 128/59 mmHg Concurrent Access: falseAV Fistula Upper Arm (Left) Arterial BP Standing (Pre-Dialysis) 128/62 mmHg BP Standing (P ost-Dialysis) 121/71 mmHg Sitting Heart Rate Pre-Dialysis 61 BPM Sitting Heart Rate Post-Dialysis 52 BPM Standing Heart Rate Pre-Dialysis 67 BPM Standing Heart Rate Post-Dialysis 51 BPM Temperature Pre-Dialysis 98 degF Temperature Post -Dialysis 98 degF August 30, 2024 In-Center Hemodialysis Treatment [id number]:57:41.000Z 7730-47-90N10:20:00.000Z BP Sitting (Pre-Dialysis) 125/67 mmHg BP Sitting (Post-Dialysis) 129/68 mmHg Concurrent Access: falseAV Fistula Upper Arm (Left) Arterial BP Standing (Pre-Dialysis) 125/63 mmHg BP Standing (P ost-Dialysis) 122/61 mmHg Sitting Heart Rate Pre-Dialysis 57 BPM Sitting Heart Rate Post-Dialysis 59 BPM Standing Heart Rate Pre-Dialysis 58 BPM Standing Heart Rate Post-Dialysis 67 BPM Temperature Pre-Dialysis 97.4 degF Temperature Post -Dialysis 97.9 degF August 27, 2024 In-Center Hemodialysis Treatment 5520-25-55D84:52:01.000Z 4778-47-69H41:19:31.000Z BP Sitting (Pre-Dialysis) 171/75 mmHg BP Sitting (Post-Dialysis) 183/87 mmHg Concurrent Access: falseAV Fistula Upper Arm (Left) Arterial BP Standing (Pre-Dialysis) 151/85 mmHg BP Standing (P ost-Dialysis) 155/76 mmHg Sitting Heart Rate Pre-Dialysis 58 BPM Sitting Heart Rate Post-Dialysis 61 BPM Standing Heart Rate Pre-Dialysis 65 BPM Standing Heart Rate Post-Dialysis 66 BPM Temperature Pre-Dialysis 97.5 degF Temperature Post -Dialysis 98 degF August 23, 2024 In-Center Hemodialysis Treatment [id number]:55:24.000Z [id number]:09:59.000Z BP Sitting (Pre-Dialysis) 157/71 mmHg BP Sitting (Post-Dialysis) 129/74 mmHg Concurrent Access: falseAV Fistula Upper Arm (Left) Arterial BP Standing (Pre-Dialysis) 165/91 mmHg BP Standing (P ost-Dialysis) 120/71 mmHg Sitting Heart Rate Pre-Dialysis 61 BPM Sitting Heart Rate Post-Dialysis 65 BPM Standing Heart Rate Pre-Dialysis 70 BPM Standing Heart Rate Post-Dialysis 69 BPM Temperature Pre-Dialysis 97.7 degF Temperature Post -Dialysis 97.4 degF August 20, 2024 In-Center Hemodialysis Treatment [id number]:16:00.000Z 1351-16-94M88:54:49.000Z BP Sitting (Pre-Dialysis) 134/66 mmHg BP Sitting (Post-Dialysis) 134/78 mmHg Concurrent Access: falseAV Fistula Upper Arm (Left) Arterial BP Standing (Pre-Dialysis) 122/65 mmHg BP Standing (P ost-Dialysis) 115/76 mmHg Sitting Heart Rate Pre-Dialysis 64 BPM Sitting Heart Rate Post-Dialysis 84 BPM Standing Heart Rate Pre-Dialysis 69 BPM Standing Heart Rate Post-Dialysis 85 BPM Temperature Pre-Dialysis 96.3 degF Temperature Post -Dialysis 98 degF August 16, 2024 In-Center Hemodialysis Treatment 5300-64-85Y48:25:00.000Z 9522-37-36T01:00:10.000Z BP Sitting (Pre-Dialysis) 188/86 mmHg BP Sitting (Post-Dialysis) 176/99 mmHg Concurrent Access: falseAV Fistula Upper Arm (Left) Arterial BP Standing (Pre-Dialysis) 171/92 mmHg BP Standing (P ost-Dialysis) 178/95 mmHg Sitting Heart Rate Pre-Dialysis 66 BPM Sitting Heart Rate Post-Dialysis 67 BPM Standing Heart Rate Pre-Dialysis 73 BPM Standing Heart Rate Post-Dialysis 72 BPM Temperature Pre-Dialysis 97.6 degF Temperature Post -Dialysis 98 degF August 09, 2024 In-Center Hemodialysis Treatment 9818-86-77K63:08:00.000Z 7872-13-34O60:10:58.000Z BP Sitting (Pre-Dialysis) 124/61 mmHg BP Sitting (Post-Dialysis) 107/68 mmHg Concurrent Access: falseAV Fistula Upper Arm (Left) Arterial BP Standing (Pre-Dialysis) 128/67 mmHg BP Standing (P ost-Dialysis) 111/65 mmHg Sitting Heart Rate Pre-Dialysis 61 BPM Sitting Heart Rate Post-Dialysis 66 BPM Standing Heart Rate Pre-Dialysis 67 BPM Standing Heart Rate Post-Dialysis 54 BPM Temperature Pre-Dialysis 98 degF Temperature Post -Dialysis 98.2 degF August 06, 2024 In-Center Hemodialysis Treatment 1203-74-71Y00:59:37.000Z 0261-26-80L94:29:12.000Z BP Sitting (Pre-Dialysis) 164/81 mmHg BP Sitting (Post-Dialysis) 174/68 mmHg Concurrent Access: falseAV Fistula Upper Arm (Left) Arterial BP Standing (Pre-Dialysis) 165/84 mmHg BP Standing (P ost-Dialysis) 152/77 mmHg Sitting Heart Rate Pre-Dialysis 69 BPM Sitting Heart Rate Post-Dialysis 78 BPM Standing Heart Rate Pre-Dialysis 79 BPM Standing Heart Rate Post-Dialysis 90 BPM Temperature Pre-Dialysis 97.6 degF Temperature Post -Dialysis 97.3 degF August 02, 2024 In-Center Hemodialysis Treatment [id number]:06:18.000Z 8374-51-13G94:17:08.000Z BP Sitting (Pre-Dialysis) 165/82 mmHg BP Sitting (Post-Dialysis) 159/75 mmHg Concurrent Access: falseAV Fistula Upper Arm (Left) Arterial BP Standing (Pre-Dialysis) 146/79 mmHg BP Standing (P ost-Dialysis) 117/64 mmHg Sitting Heart Rate Pre-Dialysis 65 BPM Sitting Heart Rate Post-Dialysis 64 BPM Standing Heart Rate Pre-Dialysis 71 BPM Standing Heart Rate Post-Dialysis 77 BPM Temperature Pre-Dialysis 97.2 degF Temperature Post -Dialysis 98 degF July 30, 2024 In-Center Hemodialysis Treatment 4199-86-04F51:28:00.000Z 6680-11-27J61:04:44.000Z BP Sitting (Pre-Dialysis) 157/81 mmHg BP Sitting (Post-Dialysis) 162/91 mmHg Concurrent Access: falseAV Fistula Upper Arm (Left) Arterial BP Standing (Pre-Dialysis) 166/86 mmHg BP Standing (P ost-Dialysis) 112/68 mmHg Sitting Heart Rate Pre-Dialysis 72 BPM Sitting Heart Rate Post-Dialysis 67 BPM Standing Heart Rate Pre-Dialysis 78 BPM Standing Heart Rate Post-Dialysis 81 BPM Temperature Pre-Dialysis 97.4 degF Temperature Post -Dialysis 98 degF July 26, 2024 In-Center Hemodialysis Treatment 8462-60-07R66:49:00.000Z 0443-76-16V76:08:10.000Z BP Sitting (Pre-Dialysis) 137/57 mmHg BP Sitting (Post-Dialysis) 99/61 mmHg Concurrent Access: falseAV Fistula Upper Arm (Left) Arterial BP Standing (Pre-Dialysis) 139/47 mmHg Sitti ng Heart Rate Post-Dialysis 67 BPM Sitting Heart Rate Pre-Dialysis 59 BPM Temperatu re Post-Dialysis 97.1 degF Standing Heart Rate Pre-Dialysis 64 BPM Temperature Pre-Dialysis 97.3 degF July 23, 2024 In-Center Hemodialysis Treatment [id number]:14:16.000Z 3150-75-45L43:45:31.000Z BP Sitting (Pre-Dialysis) 132/68 mmHg BP Sitting (Post-Dialysis) 160/72 mmHg Concurrent Access: falseAV Fistula Upper Arm (Left) Arterial BP Standing (Pre-Dialysis) 119/68 mmHg Sitti ng Heart Rate Post-Dialysis 67 BPM Sitting Heart Rate Pre-Dialysis 68 BPM Temperatu re Post-Dialysis 97.2 degF Standing Heart Rate Pre-Dialysis 76 BPM Temperature Pre-Dialysis 97.2 degF July 19, 2024 In-Center Hemodialysis Treatment 9507-11-71P37:46:00.000Z 1936-04-06A74:05:12.000Z BP Sitting (Pre-Dialysis) 132/57 mmHg BP Sitting (Post-Dialysis) 119/56 mmHg Concurrent Access: falseAV Fistula Upper Arm (Left) Arterial BP Standing (Pre-Dialysis) 125/62 mmHg BP Standing (P ost-Dialysis) 118/52 mmHg Sitting Heart Rate Pre-Dialysis 61 BPM Sitting Heart Rate Post-Dialysis 57 BPM Standing Heart Rate Pre-Dialysis 70 BPM Standing Heart Rate Post-Dialysis 66 BPM Temperature Pre-Dialysis 97.6 degF Temperature Post -Dialysis 97.1 degF July 16, 2024 In-Center Hemodialysis Treatment 4618-13-45N59:05:00.000Z 7304-54-23A80:49:36.000Z BP Sitting (Pre-Dialysis) 155/76 mmHg BP Sitting (Post-Dialysis) 147/77 mmHg Concurrent Access: falseAV Fistula Upper Arm (Left) Arterial BP Standing (Pre-Dialysis) 155/80 mmHg BP Standing (P ost-Dialysis) 127/74 mmHg Sitting Heart Rate Pre-Dialysis 60 BPM Sitting Heart Rate Post-Dialysis 62 BPM Standing Heart Rate Pre-Dialysis 66 BPM Standing Heart Rate Post-Dialysis 71 BPM Temperature Pre-Dialysis 97.3 degF Temperature Post -Dialysis 97.8 degF July 12, 2024 In-Center Hemodialysis Treatment [id number]:52:00.000Z [id number]:18:14.000Z BP Sitting (Pre-Dialysis) 164/83 mmHg BP Sitting (Post-Dialysis) 102/69 mmHg Concurrent Access: falseAV Fistula Upper Arm (Left) Arterial BP Standing (Pre-Dialysis) 156/83 mmHg BP Standing (P ost-Dialysis) 122/75 mmHg Sitting Heart Rate Pre-Dialysis 64 BPM Sitting Heart Rate Post-Dialysis 63 BPM Standing Heart Rate Pre-Dialysis 68 BPM Standing Heart Rate Post-Dialysis 70 BPM Temperature Pre-Dialysis 98.2 degF Temperature Post -Dialysis 97.8 degF July 09, 2024 In-Center Hemodialysis Treatment [id number]:56:02.000Z [id number]:26:02.000Z BP Sitting (Pre-Dialysis) 212/103 mmHg BP Sitting (Post-Dialysis) 182/89 mmHg Concurrent Access: falseAV Fistula Upper Arm (Left) Arterial Sitting Heart Rate Pre-Dialysis 61 BPM BP Standing (Post-Dialysis) 170/85 mmHg Temperature Pre-Dialysis 98.1 degF Sitting Heart Ra te Post-Dialysis 68 BPM Standing Heart Rate Post-Kathy lysis 73 BPM Temperature Post-Dialysis 98 .2 degF July 05, 2024 In-Center Hemodialysis Treatment [id number]:04:00.000Z [id number]:19:45.000Z BP Sitting (Pre-Dialysis) 129/65 mmHg BP Sitting (Post-Dialysis) 145/69 mmHg Concurrent Access: falseAV Fistula Upper Arm (Left) Arterial BP Standing (Pre-Dialysis) 124/66 mmHg BP Standing (P ost-Dialysis) 136/42 mmHg Sitting Heart Rate Pre-Dialysis 60 BPM Sitting Heart Rate Post-Dialysis 63 BPM Standing Heart Rate Pre-Dialysis 68 BPM Standing Heart Rate Post-Dialysis 74 BPM Temperature Pre-Dialysis 98 degF Temperature Post -Dialysis 96.8 degF July 02, 2024 In-Center Hemodialysis Treatment [id number]:01:00.000Z [id number]:36:01.000Z BP Sitting (Pre-Dialysis) 141/75 mmHg BP Sitting (Post-Dialysis) 112/72 mmHg Concurrent Access: falseAV Fistula Upper Arm (Left) Arterial BP Standing (Pre-Dialysis) 127/74 mmHg BP Standing (P ost-Dialysis) 119/62 mmHg Sitting Heart Rate Pre-Dialysis 59 BPM Sitting Heart Rate Post-Dialysis 69 BPM Standing Heart Rate Pre-Dialysis 67 BPM Standing Heart Rate Post-Dialysis 80 BPM Temperature Pre-Dialysis 96.9 degF Temperature Post -Dialysis 98 degF June 28, 2024 In-Center Hemodialysis Treatment [id number]:54:37.000Z 8465-97-97B58:08:22.000Z BP Sitting (Pre-Dialysis) 139/63 mmHg BP Sitting (Post-Dialysis) 124/68 mmHg Concurrent Access: falseAV Fistula Upper Arm (Left) Arterial BP Standing (Pre-Dialysis) 135/63 mmHg BP Standing (P ost-Dialysis) 121/65 mmHg Sitting Heart Rate Pre-Dialysis 58 BPM Sitting Heart Rate Post-Dialysis 65 BPM Standing Heart Rate Pre-Dialysis 63 BPM Standing Heart Rate Post-Dialysis 72 BPM Temperature Pre-Dialysis 97.2 degF Temperature Post -Dialysis 97.3 degF June 25, 2024 In-[place] [facility] Treatment [id number]:57:20.000Z [id number]:25:00.000Z BP Sitting (Pre-Dialysis) 177/80 mmHg BP Sitting (Post-Dialysis) 165/90 mmHg Concurrent Access: falseAV Fistula Upper Arm (Left) Arterial BP Standing (Pre-Dialysis) 172/88 mmHg BP Standing (P ost-Dialysis) 133/85 mmHg Sitting Heart Rate Pre-Dialysis 64 BPM Sitting Heart Rate Post-Dialysis 66 BPM Standing Heart Rate Pre-Dialysis 71 BPM Standing Heart Rate Post-Dialysis 92 BPM Temperature Pre-Dialysis 98.1 degF Temperature Post -Dialysis 97.6 degF June 21, 2024 In-Center Hemodialysis Treatment [id number]:06:00.000Z [id number]:09:10.000Z BP Sitting (Pre-Dialysis) 117/65 mmHg BP Sitting (Post-Dialysis) 145/80 mmHg Concurrent Access: falseAV Fistula Upper Arm (Left) Arterial BP Standing (Pre-Dialysis) 111/62 mmHg BP Standing (P ost-Dialysis) 116/58 mmHg Sitting Heart Rate Pre-Dialysis 52 BPM Sitting Heart Rate Post-Dialysis 69 BPM Standing Heart Rate Pre-Dialysis 64 BPM Standing Heart Rate Post-Dialysis 53 BPM Temperature Pre-Dialysis 97.8 degF Temperature Post -Dialysis 98.5 degF June 18, 2024 In-Center Hemodialysis Treatment [id number]:49:07.000Z [id number]:19:07.000Z BP Sitting (Pre-Dialysis) 154/76 mmHg BP Sitting (Post-Dialysis) 177/84 mmHg Concurrent Access: falseAV Fistula Upper Arm (Left) Arterial BP Standing (Pre-Dialysis) 148/78 mmHg BP Standing (P ost-Dialysis) 152/87 mmHg Sitting Heart Rate Pre-Dialysis 63 BPM Sitting Heart Rate Post-Dialysis 71 BPM Standing Heart Rate Pre-Dialysis 68 BPM Standing Heart Rate Post-Dialysis 70 BPM Temperature Pre-Dialysis 98.2 degF Temperature Post -Dialysis 98.6 degF June 15, 2024 In-Center Hemodialysis Treatment [id number]:24:00.000Z [id number]:26:21.000Z BP Sitting (Pre-Dialysis) 105/51 mmHg BP Sitting (Post-Dialysis) 108/53 mmHg Concurrent Access: falseAV Fistula Upper Arm (Left) Arterial BP Standing (Pre-Dialysis) 95/54 mmHg BP Standing (P ost-Dialysis) 97/54 mmHg Sitting Heart Rate Pre-Dialysis 38 BPM Sitting H eart Rate Post-Dialysis 40 BPM Standing Heart Rate Pre-Dialysis 45 BPM Standing Heart Rate Post-Dialysis 43 BPM Temperature Pre-Dialysis 97.4 degF June 11, 2024 In-Center Hemodialysis Treatment [id number]:58:27.000Z 3840-33-52L38:29:17.000Z BP Sitting (Pre-Dialysis) 120/59 mmHg BP Sitting (Post-Dialysis) 111/64 mmHg Concurrent Access: falseAV Fistula Upper Arm (Left) Arterial BP Standing (Pre-Dialysis) 118/62 mmHg BP Standing (P ost-Dialysis) 102/46 mmHg Sitting Heart Rate Pre-Dialysis 58 BPM Sitting Heart Rate Post-Dialysis 63 BPM Standing Heart Rate Pre-Dialysis 64 BPM Standing Heart Rate Post-Dialysis 73 BPM Temperature Pre-Dialysis 97.3 degF Temperature Post -Dialysis 98 degF June 07, 2024 In-Center Hemodialysis Treatment [id number]:11:00.000Z 1207-05-60F77:44:42.000Z BP Sitting (Pre-Dialysis) 120/58 mmHg BP Sitting (Post-Dialysis) 123/56 mmHg Concurrent Access: falseAV Fistula Upper Arm (Left) Arterial BP Standing (Pre-Dialysis) 115/62 mmHg BP Standing (P ost-Dialysis) 119/63 mmHg Sitting Heart Rate Pre-Dialysis 59 BPM Sitting Heart Rate Post-Dialysis 58 BPM Standing Heart Rate Pre-Dialysis 69 BPM Standing Heart Rate Post-Dialysis 67 BPM Temperature Pre-Dialysis 98.2 degF Temperature Post -Dialysis 97.6 degF June 04, 2024 In-Center Hemodialysis Treatment [id number]:45:00.000Z [id number]:17:24.000Z BP Sitting (Pre-Dialysis) 155/90 mmHg BP Sitting (Post-Dialysis) 161/85 mmHg Concurrent Access: falseAV Fistula Upper Arm (Left) Arterial BP Standing (Pre-Dialysis) 141/82 mmHg BP Standing (P ost-Dialysis) 127/65 mmHg Sitting Heart Rate Pre-Dialysis 61 BPM Sitting Heart Rate Post-Dialysis 60 BPM Standing Heart Rate Pre-Dialysis 68 BPM Standing Heart Rate Post-Dialysis 70 BPM Temperature Pre-Dialysis 97.8 degF Temperature Post -Dialysis 98 degF May 31, 2024 In-Center Hemodialysis Treatment [id number]:47:00.000Z 1263-34-71T56:06:01.000Z BP Sitting (Pre-Dialysis) 111/52 mmHg BP Sitting (Post-Dialysis) 104/54 mmHg Concurrent Access: falseAV Fistula Upper Arm (Left) Arterial BP Standing (Pre-Dialysis) 117/54 mmHg BP Standing (P ost-Dialysis) 124/61 mmHg Sitting Heart Rate Pre-Dialysis 59 BPM Sitting Heart Rate Post-Dialysis 60 BPM Standing Heart Rate Pre-Dialysis 62 BPM Standing Heart Rate Post-Dialysis 67 BPM Temperature Pre-Dialysis 98.3 degF Temperature Post -Dialysis 98.3 degF May 28, 2024 In-Center Hemodialysis Treatment [id number]:46:28.000Z 5321-35-38T11:24:27.000Z BP Sitting (Pre-Dialysis) 167/82 mmHg BP Sitting (Post-Dialysis) 138/65 mmHg Concurrent Access: falseAV Fistula Upper Arm (Left) Arterial BP Standing (Pre-Dialysis) 149/80 mmHg BP Standing (P ost-Dialysis) 121/67 mmHg Sitting Heart Rate Pre-Dialysis 59 BPM Sitting Heart Rate Post-Dialysis 63 BPM Standing Heart Rate Pre-Dialysis 63 BPM Standing Heart Rate Post-Dialysis 72 BPM Temperature Pre-Dialysis 98.2 degF Temperature Post -Dialysis 98 degF May 23, 2024 In-Center Hemodialysis Treatment [id number]:30:00.000Z 7427-26-04W52:01:12.000Z BP Sitting (Pre-Dialysis) 182/74 mmHg BP Sitting (Post-Dialysis) 113/61 mmHg Concurrent Access: falseAV Fistula Upper Arm (Left) Arterial BP Standing (Pre-Dialysis) 158/85 mmHg Sitting Heart Rate Post-Dialysis 66 BPM Sitting Heart Rate Pre-Dialysis 67 BPM Standing Heart Rate Pre-Dialysis 75 BPM Temperature Pre-Dialysis 97.2 degF May 20, 2024 In-Center Hemodialysis Treatment [id number]:39:44.000Z 3836-39-57H80:16:24.000Z BP Sitting (Pre-Dialysis) 175/79 mmHg BP Sitting (Post-Dialysis) 157/81 mmHg Concurrent Access: falseAV Fistula Upper Arm (Left) Arterial BP Standing (Pre-Dialysis) 154/82 mmHg BP Standing (P ost-Dialysis) 132/73 mmHg Sitting Heart Rate Pre-Dialysis 59 BPM Sitting Heart Rate Post-Dialysis 63 BPM Standing Heart Rate Pre-Dialysis 66 BPM Standing Heart Rate Post-Dialysis 75 BPM Temperature Pre-Dialysis 98.2 degF Temperature Post -Dialysis 97.8 degF May 13, 2024 In-Center Hemodialysis Treatment 4014-14-37B46:26:00.000Z 1906-18-33S62:59:53.000Z BP Sitting (Pre-Dialysis) 152/80 mmHg BP Sitting (Post-Dialysis) 149/83 mmHg Concurrent Access: falseAV Fistula Upper Arm (Left) Arterial BP Standing (Pre-Dialysis) 136/81 mmHg BP Standing (P ost-Dialysis) 126/78 mmHg Sitting Heart Rate Pre-Dialysis 63 BPM Sitting Heart Rate Post-Dialysis 65 BPM Standing Heart Rate Pre-Dialysis 65 BPM Standing Heart Rate Post-Dialysis 80 BPM Temperature Pre-Dialysis 97.6 degF Temperature Post -Dialysis 98 degF May 09, 2024 In-Center Hemodialysis Treatment [id number]:29:16.000Z [id number]:58:51.000Z BP Sitting (Pre-Dialysis) 184/96 mmHg BP Sitting (Post-Dialysis) 170/90 mmHg Concurrent Access: falseAV Fistula Upper Arm (Left) Arterial BP Standing (Pre-Dialysis) 159/94 mmHg BP Standing (P ost-Dialysis) 138/80 mmHg Sitting Heart Rate Pre-Dialysis 63 BPM Sitting Heart Rate Post-Dialysis 63 BPM Standing Heart Rate Pre-Dialysis 65 BPM Standing Heart Rate Post-Dialysis 70 BPM Temperature Pre-Dialysis 97.5 degF Temperature Post -Dialysis 97.7 degF May 06, 2024 In-Center Hemodialysis Treatment [id number]:35:26.000Z 4364-15-11L68:35:13.000Z BP Sitting (Pre-Dialysis) 130/70 mmHg BP Sitting (Post-Dialysis) 123/66 mmHg Concurrent Access: falseAV Fistula Upper Arm (Left) Arterial BP Standing (Pre-Dialysis) 102/64 mmHg BP Standing (P ost-Dialysis) 110/63 mmHg Sitting Heart Rate Pre-Dialysis 50 BPM Sitting Heart Rate Post-Dialysis 56 BPM Standing Heart Rate Pre-Dialysis 69 BPM Standing Heart Rate Post-Dialysis 64 BPM Temperature Pre-Dialysis 97.2 degF Temperature Post -Dialysis 97.4 degF May 02, 2024 In-Center Hemodialysis Treatment [id number]:27:38.000Z 6180-62-93Z07:28:41.000Z BP Sitting (Pre-Dialysis) 160/78 mmHg BP Sitting (Post-Dialysis) 131/72 mmHg Concurrent Access: falseAV Fistula Upper Arm (Left) Arterial BP Standing (Pre-Dialysis) 149/76 mmHg BP Standing (P ost-Dialysis) 123/64 mmHg Sitting Heart Rate Pre-Dialysis 68 BPM Sitting Heart Rate Post-Dialysis 68 BPM Standing Heart Rate Pre-Dialysis 68 BPM Standing Heart Rate Post-Dialysis 92 BPM Temperature Pre-Dialysis 97.4 degF Temperature Post -Dialysis 97.6 degF April 29, 2024 In-Center Hemodialysis Treatment 9660-47-90J64:29:00.000Z 7647-57-08H07:03:19.000Z BP Sitting (Pre-Dialysis) 138/70 mmHg BP Sitting (Post-Dialysis) 125/64 mmHg Concurrent Access: falseAV Fistula Upper Arm (Left) Arterial BP Standing (Pre-Dialysis) 131/65 mmHg BP Standing (P ost-Dialysis) 123/47 mmHg Sitting Heart Rate Pre-Dialysis 65 BPM Sitting Heart Rate Post-Dialysis 64 BPM Standing Heart Rate Pre-Dialysis 74 BPM Standing Heart Rate Post-Dialysis 56 BPM Temperature Pre-Dialysis 97.2 degF Temperature Post -Dialysis 97.3 degF April 25, 2024 In-Center Hemodialysis Treatment [id number]:28:00.000Z 4636-75-53B12:01:49.000Z BP Sitting (Pre-Dialysis) 163/94 mmHg BP Sitting (Post-Dialysis) 176/92 mmHg Concurrent Access: falseAV Fistula Upper Arm (Left) Arterial BP Standing (Pre-Dialysis) 159/82 mmHg BP Standing (P ost-Dialysis) 167/79 mmHg Sitting Heart Rate Pre-Dialysis 70 BPM Sitting Heart Rate Post-Dialysis 65 BPM Standing Heart Rate Pre-Dialysis 75 BPM Standing Heart Rate Post-Dialysis 76 BPM Temperature Pre-Dialysis 98 degF Temperature Post -Dialysis 97.7 degF April 22, 2024 In-Center Hemodialysis Treatment [id number]:15:38.000Z 2798-65-79L57:24:48.000Z BP Sitting (Pre-Dialysis) 183/86 mmHg BP Sitting (Post-Dialysis) 152/84 mmHg Concurrent Access: falseAV Fistula Upper Arm (Left) Arterial BP Standing (Pre-Dialysis) 158/86 mmHg BP Standing (P ost-Dialysis) 131/67 mmHg Sitting Heart Rate Pre-Dialysis 60 BPM Sitting Heart Rate Post-Dialysis 68 BPM Standing Heart Rate Pre-Dialysis 65 BPM Standing Heart Rate Post-Dialysis 76 BPM Temperature Pre-Dialysis 97.4 degF Temperature Post -Dialysis 98.1 degF April 18, 2024 In-Center Hemodialysis Treatment [id number]:29:56.000Z 7631-63-02U77:14:06.000Z BP Sitting (Pre-Dialysis) 144/68 mmHg BP Sitting (Post-Dialysis) 154/76 mmHg Concurrent Access: falseAV Fistula Upper Arm (Left) Arterial BP Standing (Pre-Dialysis) 133/73 mmHg BP Standing (P ost-Dialysis) 132/76 mmHg Sitting Heart Rate Pre-Dialysis 64 BPM Sitting Heart Rate Post-Dialysis 66 BPM Standing Heart Rate Pre-Dialysis 69 BPM Standing Heart Rate Post-Dialysis 74 BPM Temperature Pre-Dialysis 98 degF Temperature Post -Dialysis 97.9 degF April 13, 2024 In-Center Hemodialysis Treatment 5035-16-23V18:04:00.000Z [id number]:35:00.000Z BP Sitting (Pre-Dialysis) 151/86 mmHg BP Sitting (Post-Dialysis) 149/78 mmHg Concurrent Access: falseAV Fistula Upper Arm (Left) Arterial BP Standing (Pre-Dialysis) 140/82 mmHg BP Standing (P ost-Dialysis) 145/61 mmHg Sitting Heart Rate Pre-Dialysis 64 BPM Sitting Heart Rate Post-Dialysis 66 BPM Standing Heart Rate Pre-Dialysis 75 BPM Standing Heart Rate Post-Dialysis 72 BPM Temperature Pre-Dialysis 97.4 degF Temperature Post -Dialysis 98.4 degF April 11, 2024 In-Center Hemodialysis Treatment [id number]:29:00.000Z 1119-21-81P66:29:12.000Z BP Sitting (Pre-Dialysis) 164/81 mmHg BP Sitting (Post-Dialysis) 176/76 mmHg Concurrent Access: falseAV Fistula Upper Arm (Left) Arterial BP Standing (Pre-Dialysis) 154/81 mmHg BP Standing (P ost-Dialysis) 126/74 mmHg Sitting Heart Rate Pre-Dialysis 63 BPM Sitting Heart Rate Post-Dialysis 65 BPM Standing Heart Rate Pre-Dialysis 71 BPM Standing Heart Rate Post-Dialysis 67 BPM Temperature Pre-Dialysis 97.9 degF Temperature Post -Dialysis 97.5 degF April 08, 2024 In-Center Hemodialysis Treatment [id number]:00:00.000Z 7194-92-80M51:20:29.000Z BP Sitting (Pre-Dialysis) 129/61 mmHg BP Sitting (Post-Dialysis) 121/66 mmHg Concurrent Access: falseAV Fistula Upper Arm (Left) Arterial BP Standing (Pre-Dialysis) 122/72 mmHg BP Standing (P ost-Dialysis) 129/66 mmHg Sitting Heart Rate Pre-Dialysis 64 BPM Sitting Heart Rate Post-Dialysis 62 BPM Standing Heart Rate Pre-Dialysis 68 BPM Standing Heart Rate Post-Dialysis 70 BPM Temperature Pre-Dialysis 97.8 degF Temperature Post -Dialysis 98.6 degF April 04, 2024 In-Center Hemodialysis Treatment [id number]:50:36.000Z 3996-09-90F77:25:11.000Z BP Sitting (Pre-Dialysis) 145/77 mmHg BP Sitting (Post-Dialysis) 123/54 mmHg Concurrent Access: falseAV Fistula Upper Arm (Left) Arterial BP Standing (Pre-Dialysis) 127/74 mmHg BP Standing (P ost-Dialysis) 103/59 mmHg Sitting Heart Rate Pre-Dialysis 62 BPM Sitting Heart Rate Post-Dialysis 61 BPM Standing Heart Rate Pre-Dialysis 74 BPM Standing Heart Rate Post-Dialysis 67 BPM Temperature Pre-Dialysis 97.6 degF Temperature Post -Dialysis 97.6 degF April 01, 2024 In-Center Hemodialysis Treatment [id number]:41:39.000Z 5264-10-17Q29:11:14.000Z BP Sitting (Pre-Dialysis) 119/60 mmHg BP Sitting (Post-Dialysis) 133/67 mmHg Concurrent Access: falseAV Fistula Upper Arm (Left) Arterial BP Standing (Pre-Dialysis) 122/63 mmHg Sitti ng Heart Rate Post-Dialysis 63 BPM Sitting Heart Rate Pre-Dialysis 65 BPM Temperatu re Post-Dialysis 98.3 degF Standing Heart Rate Pre-Dialysis 68 BPM Temperature Pre-Dialysis 98.3 degF March 28, 2024 In-Center Hemodialysis Treatment [id number]:52:00.000Z 3111-41-09Q74:31:36.000Z BP Sitting (Pre-Dialysis) 133/67 mmHg BP Sitting (Post-Dialysis) 147/75 mmHg Concurrent Access: falseAV Fistula Upper Arm (Left) Arterial BP Standing (Pre-Dialysis) 121/57 mmHg BP Standing (P ost-Dialysis) 130/66 mmHg Sitting Heart Rate Pre-Dialysis 59 BPM Sitting Heart Rate Post-Dialysis 63 BPM Standing Heart Rate Pre-Dialysis 62 BPM Standing Heart Rate Post-Dialysis 70 BPM Temperature Pre-Dialysis 98 degF Temperature Post -Dialysis 97.9 degF March 25, 2024 In-Center Hemodialysis Treatment [id number]:20:00.000Z [id number]:56:08.000Z BP Sitting (Pre-Dialysis) 122/62 mmHg BP Sitting (Post-Dialysis) 127/65 mmHg Concurrent Access: falseAV Fistula Upper Arm (Left) Arterial Sitting Heart Rate Pre-Dialysis 61 BPM BP Standing (Post-Dialysis) 114/60 mmHg Temperature Pre-Dialysis 97.7 degF Sitting Heart Ra te Post-Dialysis 65 BPM Standing Heart Rate Post-Kathy lysis 71 BPM Temperature Post-Dialysis 98 .2 degF March 21, 2024 In-Center Hemodialysis Treatment [id number]:29:15.000Z 7194-74-45Y85:58:50.000Z BP Sitting (Pre-Dialysis) 137/70 mmHg BP Sitting (Post-Dialysis) 149/73 mmHg Concurrent Access: falseAV Fistula Upper Arm (Left) Arterial Sitting Heart Rate Pre-Dialysis 63 BPM Sitting H eart Rate Post-Dialysis 63 BPM Temperature Pre-Dialysis 97.9 degF Temperature Post -Dialysis 97.9 degF March 18, 2024 In-Center Hemodialysis Treatment 9875-15-78Z60:22:11.000Z [id number]:52:11.000Z BP Sitting (Pre-Dialysis) 144/73 mmHg BP Sitting (Post-Dialysis) 171/73 mmHg Concurrent Access: falseAV Fistula Upper Arm (Left) Arterial Sitting Heart Rate Pre-Dialysis 69 BPM Sitting H eart Rate Post-Dialysis 62 BPM Temperature Pre-Dialysis 98.2 degF Temperature Post -Dialysis 98.1 degF March 14, 2024 In-Center Hemodialysis Treatment [id number]:36:01.000Z 5267-96-25P63:18:06.000Z BP Sitting (Pre-Dialysis) 147/76 mmHg BP Sitting (Post-Dialysis) 152/74 mmHg Concurrent Access: falseAV Fistula Upper Arm (Left) Arterial Sitting Heart Rate Pre-Dialysis 69 BPM BP Standing (Post-Dialysis) 116/66 mmHg Temperature Pre-Dialysis 97.9 degF Sitting Heart Ra te Post-Dialysis 66 BPM Standing Heart Rate Post-Kathy lysis 78 BPM Temperature Post-Dialysis 97 .6 degF March 09, 2024 In-Center Hemodialysis Treatment [id number]:31:18.000Z 7041-30-00Q92:14:13.000Z BP Sitting (Pre-Dialysis) 192/89 mmHg BP Sitting (Post-Dialysis) 202/111 mmHg Concurrent Access: falseAV Fistula Upper Arm (Left) Arterial BP Standing (Pre-Dialysis) 166/94 mmHg BP Standing (P ost-Dialysis) 183/92 mmHg Sitting Heart Rate Pre-Dialysis 64 BPM Sitting Heart Rate Post-Dialysis 65 BPM Standing Heart Rate Pre-Dialysis 75 BPM Standing Heart Rate Post-Dialysis 74 BPM Temperature Pre-Dialysis 97.9 degF Temperature Post -Dialysis 97.2 degF March 07, 2024 In-Center Hemodialysis Treatment 4953-81-05C61:05:44.000Z 6907-23-64W66:15:19.000Z BP Sitting (Pre-Dialysis) 178/80 mmHg BP Sitting (Post-Dialysis) 166/87 mmHg Concurrent Access: falseAV Fistula Upper Arm (Left) Arterial BP Standing (Pre-Dialysis) 205/91 mmHg BP Standing (P ost-Dialysis) 127/75 mmHg Sitting Heart Rate Pre-Dialysis 64 BPM Sitting Heart Rate Post-Dialysis 65 BPM Standing Heart Rate Pre-Dialysis 64 BPM Standing Heart Rate Post-Dialysis 72 BPM Temperature Pre-Dialysis 98.3 degF Temperature Post -Dialysis 98.2 degF February 29, 2024 In-Center Hemodialysis Treatment 8219-81-68N90:49:00.000Z 8149-95-75G84:50:58.000Z BP Sitting (Pre-Dialysis) 134/66 mmHg BP Sitting (Post-Dialysis) 135/66 mmHg Concurrent Access: falseAV Fistula Upper Arm (Left) Arterial BP Standing (Pre-Dialysis) 130/62 mmHg BP Standing (P ost-Dialysis) 119/61 mmHg Sitting Heart Rate Pre-Dialysis 59 BPM Sitting Heart Rate Post-Dialysis 62 BPM Standing Heart Rate Pre-Dialysis 65 BPM Standing Heart Rate Post-Dialysis 68 BPM Temperature Pre-Dialysis 98 degF Temperature Post -Dialysis 98.4 degF February 24, 2024 In-Center Hemodialysis Treatment [id number]:20:19.000Z 0778-01-31K30:50:19.000Z BP Sitting (Pre-Dialysis) 154/69 mmHg BP Sitting (Post-Dialysis) 186/83 mmHg Concurrent Access: falseAV Fistula Upper Arm (Left) Arterial Sitting Heart Rate Pre-Dialysis 70 BPM BP Standing (Post-Dialysis) 140/89 mmHg Temperature Pre-Dialysis 98.1 degF Sitting Heart Ra te Post-Dialysis 63 BPM Standing Heart Rate Post-Kathy lysis 70 BPM Temperature Post-Dialysis 98 degF February 22, 2024 In-Center Hemodialysis Treatment [id number]:20:00.000Z 6351-58-45S55:53:08.000Z BP Sitting (Pre-Dialysis) 144/72 mmHg BP Sitting (Post-Dialysis) 139/68 mmHg Concurrent Access: falseAV Fistula Upper Arm (Left) Arterial BP Standing (Pre-Dialysis) 139/72 mmHg Sitti ng Heart Rate Post-Dialysis 64 BPM Sitting Heart Rate Pre-Dialysis 64 BPM Temperatu re Post-Dialysis 97.6 degF Standing Heart Rate Pre-Dialysis 66 BPM Temperature Pre-Dialysis 98.3 degF February 19, 2024 In-Center Hemodialysis Treatment 3919-61-96X16:31:00.000Z 8638-58-57Q47:47:28.000Z BP Sitting (Pre-Dialysis) 142/65 mmHg BP Sitting (Post-Dialysis) 133/67 mmHg Concurrent Access: falseAV Fistula Upper Arm (Left) Arterial BP Standing (Pre-Dialysis) 149/70 mmHg BP Standing (P ost-Dialysis) 137/69 mmHg Sitting Heart Rate Pre-Dialysis 62 BPM Sitting Heart Rate Post-Dialysis 63 BPM Standing Heart Rate Pre-Dialysis 64 BPM Standing Heart Rate Post-Dialysis 70 BPM Temperature Pre-Dialysis 97.6 degF Temperature Post -Dialysis 97.9 degF February 17, 2024 In-Center Hemodialysis Treatment 4917-12-33M56:52:00.000Z 6885-95-69P19:56:57.000Z BP Sitting (Pre-Dialysis) 151/67 mmHg BP Sitting (Post-Dialysis) 132/63 mmHg Concurrent Access: falseAV Fistula Upper Arm (Left) Arterial BP Standing (Pre-Dialysis) 146/71 mmHg BP Standing (P ost-Dialysis) 143/68 mmHg Sitting Heart Rate Pre-Dialysis 62 BPM Sitting Heart Rate Post-Dialysis 60 BPM Standing Heart Rate Pre-Dialysis 68 BPM Standing Heart Rate Post-Dialysis 67 BPM Temperature Pre-Dialysis 98 degF Temperature Post -Dialysis 98.6 degF February 15, 2024 In-Center Hemodialysis Treatment [id number]:18:00.000Z 2252-20-85V73:22:20.000Z BP Sitting (Pre-Dialysis) 148/67 mmHg BP Sitting (Post-Dialysis) 164/74 mmHg Concurrent Access: falseAV Fistula Upper Arm (Left) Arterial BP Standing (Pre-Dialysis) 138/63 mmHg BP Standing (P ost-Dialysis) 164/73 mmHg Sitting Heart Rate Pre-Dialysis 61 BPM Sitting Heart Rate Post-Dialysis 60 BPM Standing Heart Rate Pre-Dialysis 66 BPM Standing Heart Rate Post-Dialysis 62 BPM Temperature Pre-Dialysis 98.9 degF Temperature Post -Dialysis 98.3 degF DIALYSIS ORDER Dialysis Procedure Orders Type of Dialysis Procedure Order Order Date/Time Observations In-Center Hemodialysis Treatment November 07, 2024 Target Weight 101 kg Dialysate Flow Rate 800 mL/min Blood Flow Rate 450 mL/min Treatment Time 210 min(total) Max UF Rate 13 mL/kg/hr Base Sodium Dialysate Base Sodium 138 mE q/L dialysate_temp 37 C BiCarb Dialysate BiCarbonate 38 meq/L Access Concurrent No Arterial Access AV Fistula (Upper Ar m (Left)) Venous Access AV Fistula (Upper Ar m (Left)) Arterial Needle Display NIPRO, TULIP, 15 G x 1 , SHARP , TWIN Venous Needle NIPRO, [place], 15G x 1 , SHARP , TWIN Dialyzer Nipro Elisio 17H 145 5 [email or web address] Dialysate Bath Potassium Potassium 2 mEq /L Dialysate Bath Calcium Calcium 2.5 mEq/L In-Center Hemodialysis TreatmentDece2023 Observation Value Target Weight 101 kg Dialysate Flow Rate 800 mL/min Blood Flow Rate 450 mL/min Treatment Time 210 min(total) Max UF Rate 13 mL/kg/hr Base Sodium Dialysate Base Sodium 138 mE q/L dialysate_temp 37 C BiCarb Dialysate BiCarbonate 38 meq/L Access Concurrent No Arterial Access AV Fistula (Upper Ar m (Left)) Venous Access AV Fistula (Upper Ar m (Left)) Arterial Needle Display NIPRO, TULIP, 15 G x 1 , SHARP , TWIN Venous Needle NIPRO, TULIP, 15G x 1 , SHARP , TWIN Dialyzer Nipro Elisio 17H 145 5 [email or web address] Dialysate Bath Potassium Potassium 2 mEq /L Dialysate Bath Calcium Calcium 2.5 mEq/L Results Adequacy Description Draw Date Result/Unit Status Ref Range Result Comments spKt/V 2024-11-16 17:22:17 1.31 F stdKt/V (DIAL) 2024-11-16 17:22:17 N/A F TOTAL HOURS/WEEK DIALYSIS 2024-11-16 17:22:17 6 hrs F BLOOD FLOW-QWB 2024-11-16 17:22:17 449 F CURRENT KRU 2024-11-16 17:22:17 F Dialyzer ROSARIO 2024-11-16 17:22:17 1455 Calc F nPCR 2024-11-16 17:22:17 0.77 G/KG/D F DIALYZER FLOW-QD 2024-11-16 17:22:17 800 mL/min F stdKT/V Total 2024-11-16 17:22:17 N/A F eKt/V 2024-11-16 17:22:17 1.11 F WEIGHT - POST DAY 1 2024-11-16 17:22:17 100.6 kg F WEIGHT - PRE DAY 1 2024-11-16 17:22:17 101.9 kg F Total Kt/V 2024-11-16 17:22:17 1.31 F HEIGHT IN INCHES 2024-11-16 17:22:17 69 Inches F PRESCRIBED DAYS/WEEK 2024-11-16 17:22:17 2 Day/Wk F VM (KT/V MEAN VOL) 2024-11-16 17:22:17 46.6 F KT/V PRESCRIBED 2024-11-16 17:22:17 1.58 F Std Renal KT/V 2024-11-16 17:22:17 N/A F PATIENT AGE 2024-11-16 17:22:17 69 Years F VT (KT/V TX VOL) 2024-11-16 17:22:17 47.9 L F CURRENT KRU 2024-11-16 17:22:17 F BLOOD FLOW-QWB 2024-11-16 17:22:17 449 F LENGTH OF DIALYSIS 2024-11-16 17:22:17 195 min F WEIGHT (KG) 2024-11-16 17:22:17 101 kg F spKt/V 2024-11-16 17:22:17 1.31 F Residual kt/v 2024-11-16 17:22:17 F TBW (Martinez) 2024-11-16 17:22:17 48.43 Liters F URR% 2024-11-16 17:22:17 70 % F stdKt/V (DIAL) 2024-11-16 17:22:17 N/A F TOTAL HOURS/WEEK DIALYSIS 2024-11-16 17:22:17 6 hrs F BSA EL 2024-11-16 17:22:17 2.16 sq m F AMPUTATE FACTOR 2024-11-16 17:22:17 0 F DIALYZER FLOW-QD 2024-11-16 17:22:17 800 mL/min F Dialyzer ROSARIO 2024-11-16 17:22:17 1455 Calc F PATIENT AGE 2024-11-16 17:22:17 69 Years F WEIGHT - POST DAY 1 2024-11-16 17:22:17 100.6 kg F WEIGHT - PRE DAY 1 2024-11-16 17:22:17 101.9 kg F HEIGHT IN INCHES 2024-11-16 17:22:17 69 Inches F PRESCRIBED DAYS/WEEK 2024-11-16 17:22:17 2 Day/Wk F VM (KT/V MEAN VOL) 2024-11-16 17:22:17 46.6 F KT/V PRESCRIBED 2024-11-16 17:22:17 1.58 F Total Kt/V 2024-11-16 17:22:17 1.31 F nPCR 2024-11-16 17:22:17 0.77 G/KG/D F eKt/V 2024-11-16 17:22:17 1.11 F Std Renal KT/V 2024-11-16 17:22:17 N/A F stdKT/V Total 2024-11-16 17:22:17 N/A F URR% 2024-11-16 17:22:17 70 % F LENGTH OF DIALYSIS 2024-11-16 17:22:17 195 min F BSA EL 2024-11-16 17:22:17 2.16 sq m F WEIGHT (KG) 2024-11-16 17:22:17 101 kg F VT (KT/V TX VOL) 2024-11-16 17:22:17 47.9 L F Residual kt/v 2024-11-16 17:22:17 F AMPUTATE FACTOR 2024-11-16 17:22:17 0 F TBW (Martinez) 2024-11-16 17:22:17 48.43 Liters F Urea nitrogen [Mass/volume] in Serum or Plasma 2024-11-16 17:20:26 60 mg/dL F 9.0-23.0 Urea nitrogen [Mass/volume] in Serum or Plasma 2024-11-16 17:20:26 60 mg/dL F 9.0-23.0 Urea nitrogen [Mass/volume] in Serum or Plasma --post dialysis 2024-11-16 15:46:18 18 mg/dL F 9.0-23.0 Urea nitrogen [Mass/volume] in Serum or Plasma --post dialysis 2024-11-16 15:46:18 18 mg/dL F 9.0-23.0 Creatinine [Mass/volume] in Serum or Plasma 2024-11-10 14:21:17 8.12 mg/dL F 0.7-1.3 DIALYZER FLOW-QD 2024-10-21 07:49:16 800 mL/min F URR% 2024-10-21 07:49:16 70 % F Dialyzer ROSARIO 2024-10-21 07:49:16 1455 Calc F LENGTH OF DIALYSIS 2024-10-21 07:49:16 210 min F PATIENT AGE 2024-10-21 07:49:16 69 Years F BSA EL 2024-10-21 07:49:16 2.16 sq m F WEIGHT - POST DAY 1 2024-10-21 07:49:16 100.5 kg F HEIGHT IN INCHES 2024-10-21 07:49:16 69 Inches F WEIGHT (KG) 2024-10-21 07:49:16 101 kg F WEIGHT - PRE DAY 1 2024-10-21 07:49:16 102.3 kg F PRESCRIBED DAYS/WEEK 2024-10-21 07:49:16 2 Day/Wk F VT (KT/V TX VOL) 2024-10-21 07:49:16 50.5 L F Residual kt/v 2024-10-21 07:49:16 F Total Kt/V 2024-10-21 07:49:16 1.34 F KT/V PRESCRIBED 2024-10-21 07:49:16 1.7 F nPCR 2024-10-21 07:49:16 0.93 G/KG/D F VM (KT/V MEAN VOL) 2024-10-21 07:49:16 46.2 F AMPUTATE FACTOR 2024-10-21 07:49:16 0 F TBW (Martinez) 2024-10-21 07:49:16 48.4 Liters F spKt/V 2024-10-21 07:49:16 1.34 F eKt/V 2024-10-21 07:49:16 1.14 F stdKt/V (DIAL) 2024-10-21 07:49:16 N/A F Std Renal KT/V 2024-10-21 07:49:16 N/A F TOTAL HOURS/WEEK DIALYSIS 2024-10-21 07:49:16 7 hrs F stdKT/V Total 2024-10-21 07:49:16 N/A F BLOOD FLOW-QWB 2024-10-21 07:49:16 449 F CURRENT KRU 2024-10-21 07:49:16 F Residual kt/v 2024-10-21 07:49:16 F stdKT/V Total 2024-10-21 07:49:16 N/A F spKt/V 2024-10-21 07:49:16 1.34 F HEIGHT IN INCHES 2024-10-21 07:49:16 69 Inches F PRESCRIBED DAYS/WEEK 2024-10-21 07:49:16 2 Day/Wk F TBW (Martinez) 2024-10-21 07:49:16 48.4 Liters F KT/V PRESCRIBED 2024-10-21 07:49:16 1.7 F BLOOD FLOW-QWB 2024-10-21 07:49:16 449 F WEIGHT - PRE DAY 1 2024-10-21 07:49:16 102.3 kg F LENGTH OF DIALYSIS 2024-10-21 07:49:16 210 min F WEIGHT (KG) 2024-10-21 07:49:16 101 kg F BSA EL 2024-10-21 07:49:16 2.16 sq m F Dialyzer ROSARIO 2024-10-21 07:49:16 1455 Calc F stdKt/V (DIAL) 2024-10-21 07:49:16 N/A F URR% 2024-10-21 07:49:16 70 % F eKt/V 2024-10-21 07:49:16 1.14 F VM (KT/V MEAN VOL) 2024-10-21 07:49:16 46.2 F Std Renal KT/V 2024-10-21 07:49:16 N/A F Total Kt/V 2024-10-21 07:49:16 1.34 F DIALYZER FLOW-QD 2024-10-21 07:49:16 800 mL/min F nPCR 2024-10-21 07:49:16 0.93 G/KG/D F VT (KT/V TX VOL) 2024-10-21 07:49:16 50.5 L F WEIGHT - POST DAY 1 2024-10-21 07:49:16 100.5 kg F PATIENT AGE 2024-10-21 07:49:16 69 Years F AMPUTATE FACTOR 2024-10-21 07:49:16 0 F TOTAL HOURS/WEEK DIALYSIS 2024-10-21 07:49:16 7 hrs F CURRENT KRU 2024-10-21 07:49:16 F Urea nitrogen [Mass/volume] in Serum or Plasma 2024-10-21 07:47:18 74 mg/dL F 9.0-23.0 Urea nitrogen [Mass/volume] in Serum or Plasma 2024-10-21 07:47:18 74 mg/dL F 9.0-23.0 Urea nitrogen [Mass/volume] in Serum or Plasma --post dialysis 2024-10-21 03:30:20 22 mg/dL F 9.0-23.0 Urea nitrogen [Mass/volume] in Serum or Plasma --post dialysis 2024-10-21 03:30:20 22 mg/dL F 9.0-23.0 URR% 2024-10-13 16:51:06 see comments F 65.0-100.0 Unable to Calculate. URR% 2024-10-13 16:51:06 see comments F 65.0-100.0 Unable to Calculate. URR% 2024-10-13 16:51:06 see comments F 65.0-100.0 Unable to Calculate. Urea nitrogen [Mass/volume] in Serum or Plasma 2024-10-13 16:50:54 F RECOLLECT - OUTDATED SPECIMEN Creatinine [Mass/volume] in Serum or Plasma 2024-10-13 16:50:54 F RECOLLECT - OUTDATED SPECIMEN Creatinine [Mass/volume] in Serum or Plasma 2024-10-13 16:50:54 F RECOLLECT - OUTDATED SPECIMEN Urea nitrogen [Mass/volume] in Serum or Plasma 2024-10-13 16:50:54 F RECOLLECT - OUTDATED SPECIMEN Urea nitrogen [Mass/volume] in Serum or Plasma 2024-10-13 16:50:54 F RECOLLECT - OUTDATED SPECIMEN Creatinine [Mass/volume] in Serum or Plasma 2024-10-13 16:50:54 F RECOLLECT - OUTDATED SPECIMEN DIALYZER FLOW-QD 2024-10-13 15:52:47 800 mL/min F Dialyzer ROSARIO 2024-10-13 15:52:47 1455 Calc F BSA EL 2024-10-13 15:52:47 F Unable to calculate: Pre BUN lab result is unknown LENGTH OF DIALYSIS 2024-10-13 15:52:47 209 min F PATIENT AGE 2024-10-13 15:52:47 69 Years F WEIGHT - PRE DAY 1 2024-10-13 15:52:47 104.4 kg F WEIGHT - POST DAY 1 2024-10-13 15:52:47 101.5 kg F HEIGHT IN INCHES 2024-10-13 15:52:47 69 Inches F WEIGHT (KG) 2024-10-13 15:52:47 101 kg F PRESCRIBED DAYS/WEEK 2024-10-13 15:52:47 2 Day/Wk F VM (KT/V MEAN VOL) 2024-10-13 15:52:47 F Unable to calculate: Pre BUN lab result is unknown Residual kt/v 2024-10-13 15:52:47 F Unable to calculate: Pre BUN lab result is unknown VT (KT/V TX VOL) 2024-10-13 15:52:47 F Unable to calculate: Pre BUN lab result is unknown KT/V PRESCRIBED 2024-10-13 15:52:47 F Unable to calculate: Pre BUN lab result is unknown nPCR 2024-10-13 15:52:47 F Unable to calculate: Pre BUN lab result is unknown AMPUTATE FACTOR 2024-10-13 15:52:47 0 F Total Kt/V 2024-10-13 15:52:47 F Unable to calculate: Pre BUN lab result is unknown spKt/V 2024-10-13 15:52:47 F Unable to calculate: Pre BUN lab result is unknown TBW (Martinez) 2024-10-13 15:52:47 F Unable to calculate: Pre BUN lab result is unknown stdKt/V (DIAL) 2024-10-13 15:52:47 F Unable to calculate: Pre BUN lab result is unknown Std Renal KT/V 2024-10-13 15:52:47 F Unable to calculate: Pre BUN lab result is unknown eKt/V 2024-10-13 15:52:47 F Unable to calculate: Pre BUN lab result is unknown stdKT/V Total 2024-10-13 15:52:47 F Unable to calculate: Pre BUN lab result is unknown TOTAL HOURS/WEEK DIALYSIS 2024-10-13 15:52:47 7 hrs F BLOOD FLOW-QWB 2024-10-13 15:52:47 443 F CURRENT KRU 2024-10-13 15:52:47 F Unable to calculate: Pre BUN lab result is unknown Std Renal KT/V 2024-10-13 15:52:47 F Unable to calculate: Pre BUN lab result is unknown stdKT/V Total 2024-10-13 15:52:47 F Unable to calculate: Pre BUN lab result is unknown BLOOD FLOW-QWB 2024-10-13 15:52:47 443 F AMPUTATE FACTOR 2024-10-13 15:52:47 0 F Total Kt/V 2024-10-13 15:52:47 F Unable to calculate: Pre BUN lab result is unknown Dialyzer ROSARIO 2024-10-13 15:52:47 1455 Calc F DIALYZER FLOW-QD 2024-10-13 15:52:47 800 mL/min F CURRENT KRU 2024-10-13 15:52:47 F Unable to calculate: Pre BUN lab result is unknown VT (KT/V TX VOL) 2024-10-13 15:52:47 F Unable to calculate: Pre BUN lab result is unknown VM (KT/V MEAN VOL) 2024-10-13 15:52:47 F Unable to calculate: Pre BUN lab result is unknown WEIGHT (KG) 2024-10-13 15:52:47 101 kg F WEIGHT - PRE DAY 1 2024-10-13 15:52:47 104.4 kg F BSA EL 2024-10-13 15:52:47 F Unable to calculate: Pre BUN lab result is unknown TOTAL HOURS/WEEK DIALYSIS 2024-10-13 15:52:47 7 hrs F spKt/V 2024-10-13 15:52:47 F Unable to calculate: Pre BUN lab result is unknown PATIENT AGE 2024-10-13 15:52:47 69 Years F HEIGHT IN INCHES 2024-10-13 15:52:47 69 Inches F nPCR 2024-10-13 15:52:47 F Unable to calculate: Pre BUN lab result is unknown TBW (Martinez) 2024-10-13 15:52:47 F Unable to calculate: Pre BUN lab result is unknown Residual kt/v 2024-10-13 15:52:47 F Unable to calculate: Pre BUN lab result is unknown WEIGHT - POST DAY 1 2024-10-13 15:52:47 101.5 kg F stdKt/V (DIAL) 2024-10-13 15:52:47 F Unable to calculate: Pre BUN lab result is unknown KT/V PRESCRIBED 2024-10-13 15:52:47 F Unable to calculate: Pre BUN lab result is unknown PRESCRIBED DAYS/WEEK 2024-10-13 15:52:47 2 Day/Wk F LENGTH OF DIALYSIS 2024-10-13 15:52:47 209 min F eKt/V 2024-10-13 15:52:47 F Unable to calculate: Pre BUN lab result is unknown WEIGHT (KG) 2024-10-13 15:52:47 101 kg F HEIGHT IN INCHES 2024-10-13 15:52:47 69 Inches F stdKt/V (DIAL) 2024-10-13 15:52:47 F Unable to calculate: Pre BUN lab result is unknown Total Kt/V 2024-10-13 15:52:47 F Unable to calculate: Pre BUN lab result is unknown WEIGHT - POST DAY 1 2024-10-13 15:52:47 101.5 kg F stdKT/V Total 2024-10-13 15:52:47 F Unable to calculate: Pre BUN lab result is unknown PATIENT AGE 2024-10-13 15:52:47 69 Years F KT/V PRESCRIBED 2024-10-13 15:52:47 F Unable to calculate: Pre BUN lab result is unknown BSA EL 2024-10-13 15:52:47 F Unable to calculate: Pre BUN lab result is unknown TOTAL HOURS/WEEK DIALYSIS 2024-10-13 15:52:47 7 hrs F Dialyzer ROSARIO 2024-10-13 15:52:47 1455 Calc F nPCR 2024-10-13 15:52:47 F Unable to calculate: Pre BUN lab result is unknown BLOOD FLOW-QWB 2024-10-13 15:52:47 443 F Residual kt/v 2024-10-13 15:52:47 F Unable to calculate: Pre BUN lab result is unknown eKt/V 2024-10-13 15:52:47 F Unable to calculate: Pre BUN lab result is unknown spKt/V 2024-10-13 15:52:47 F Unable to calculate: Pre BUN lab result is unknown DIALYZER FLOW-QD 2024-10-13 15:52:47 800 mL/min F VM (KT/V MEAN VOL) 2024-10-13 15:52:47 F Unable to calculate: Pre BUN lab result is unknown Std Renal KT/V 2024-10-13 15:52:47 F Unable to calculate: Pre BUN lab result is unknown VT (KT/V TX VOL) 2024-10-13 15:52:47 F Unable to calculate: Pre BUN lab result is unknown TBW (Martinez) 2024-10-13 15:52:47 F Unable to calculate: Pre BUN lab result is unknown AMPUTATE FACTOR 2024-10-13 15:52:47 0 F CURRENT KRU 2024-10-13 15:52:47 F Unable to calculate: Pre BUN lab result is unknown WEIGHT - PRE DAY 1 2024-10-13 15:52:47 104.4 kg F PRESCRIBED DAYS/WEEK 2024-10-13 15:52:47 2 Day/Wk F LENGTH OF DIALYSIS 2024-10-13 15:52:47 209 min F Urea nitrogen [Mass/volume] in Serum or Plasma --post dialysis 2024-10-13 15:51:20 15 mg/dL F 9.0-23.0 Urea nitrogen [Mass/volume] in Serum or Plasma --post dialysis 2024-10-13 15:51:20 15 mg/dL F 9.0-23.0 Urea nitrogen [Mass/volume] in Serum or Plasma --post dialysis 2024-10-13 15:51:20 15 mg/dL F 9.0-23.0 URR% 2024-09-22 04:20:33 65 % F Dialyzer ROSARIO 2024-09-22 04:20:33 1264 Calc F DIALYZER FLOW-QD 2024-09-22 04:20:33 800 mL/min F LENGTH OF DIALYSIS 2024-09-22 04:20:33 195 min F PATIENT AGE 2024-09-22 04:20:33 69 Years F BSA EL 2024-09-22 04:20:33 2.16 sq m F WEIGHT - PRE DAY 1 2024-09-22 04:20:33 103.7 kg F WEIGHT - POST DAY 1 2024-09-22 04:20:33 101.9 kg F HEIGHT IN INCHES 2024-09-22 04:20:33 69 Inches F WEIGHT (KG) 2024-09-22 04:20:33 101 kg F PRESCRIBED DAYS/WEEK 2024-09-22 04:20:33 2 Day/Wk F VT (KT/V TX VOL) 2024-09-22 04:20:33 48.3 L F VM (KT/V MEAN VOL) 2024-09-22 04:20:33 44.7 F KT/V PRESCRIBED 2024-09-22 04:20:33 1.52 F Residual kt/v 2024-09-22 04:20:33 F Total Kt/V 2024-09-22 04:20:33 1.17 F nPCR 2024-09-22 04:20:33 0.76 G/KG/D F AMPUTATE FACTOR 2024-09-22 04:20:33 0 F TBW (Martinez) 2024-09-22 04:20:33 48.87 Liters F spKt/V 2024-09-22 04:20:33 1.17 F stdKt/V (DIAL) 2024-09-22 04:20:33 N/A F eKt/V 2024-09-22 04:20:33 0.99 F Std Renal KT/V 2024-09-22 04:20:33 N/A F stdKT/V Total 2024-09-22 04:20:33 N/A F TOTAL HOURS/WEEK DIALYSIS 2024-09-22 04:20:33 6 hrs F BLOOD FLOW-QWB 2024-09-22 04:20:33 385 F CURRENT KRU 2024-09-22 04:20:33 F URR% 2024-09-22 04:20:33 65 % F DIALYZER FLOW-QD 2024-09-22 04:20:33 800 mL/min F LENGTH OF DIALYSIS 2024-09-22 04:20:33 195 min F PATIENT AGE 2024-09-22 04:20:33 69 Years F WEIGHT - POST DAY 1 2024-09-22 04:20:33 101.9 kg F BSA EL 2024-09-22 04:20:33 2.16 sq m F Dialyzer ROSARIO 2024-09-22 04:20:33 1264 Calc F WEIGHT - PRE DAY 1 2024-09-22 04:20:33 103.7 kg F HEIGHT IN INCHES 2024-09-22 04:20:33 69 Inches F WEIGHT (KG) 2024-09-22 04:20:33 101 kg F PRESCRIBED DAYS/WEEK 2024-09-22 04:20:33 2 Day/Wk F VT (KT/V TX VOL) 2024-09-22 04:20:33 48.3 L F VM (KT/V MEAN VOL) 2024-09-22 04:20:33 44.7 F Residual kt/v 2024-09-22 04:20:33 F KT/V PRESCRIBED 2024-09-22 04:20:33 1.52 F Total Kt/V 2024-09-22 04:20:33 1.17 F nPCR 2024-09-22 04:20:33 0.76 G/KG/D F TBW (Martinez) 2024-09-22 04:20:33 48.87 Liters F spKt/V 2024-09-22 04:20:33 1.17 F AMPUTATE FACTOR 2024-09-22 04:20:33 0 F eKt/V 2024-09-22 04:20:33 0.99 F stdKt/V (DIAL) 2024-09-22 04:20:33 N/A F Std Renal KT/V 2024-09-22 04:20:33 N/A F TOTAL HOURS/WEEK DIALYSIS 2024-09-22 04:20:33 6 hrs F stdKT/V Total 2024-09-22 04:20:33 N/A F BLOOD FLOW-QWB 2024-09-22 04:20:33 385 F CURRENT KRU 2024-09-22 04:20:33 F Urea nitrogen [Mass/volume] in Serum or Plasma 2024-09-22 04:18:20 63 mg/dL F 9.0-23.0 Urea nitrogen [Mass/volume] in Serum or Plasma 2024-09-22 04:18:20 63 mg/dL F 9.0-23.0 Urea nitrogen [Mass/volume] in Serum or Plasma --post dialysis 2024-09-21 20:49:20 22 mg/dL F 9.0-23.0 Urea nitrogen [Mass/volume] in Serum or Plasma --post dialysis 2024-09-21 20:49:20 22 mg/dL F 9.0-23.0 BLOOD FLOW-QWB 2024-09-15 05:24:10 387 F VM (KT/V MEAN VOL) 2024-09-15 05:24:10 43.5 F WEIGHT (KG) 2024-09-15 05:24:10 101 kg F stdKt/V (DIAL) 2024-09-15 05:24:10 N/A F PRESCRIBED DAYS/WEEK 2024-09-15 05:24:10 2 Day/Wk F AMPUTATE FACTOR 2024-09-15 05:24:10 0 F BSA EL 2024-09-15 05:24:10 2.16 sq m F spKt/V 2024-09-15 05:24:10 1.11 F LENGTH OF DIALYSIS 2024-09-15 05:24:10 163 min F nPCR 2024-09-15 05:24:10 0.68 G/KG/D F DIALYZER FLOW-QD 2024-09-15 05:24:10 800 mL/min F Dialyzer ROSARIO 2024-09-15 05:24:10 1264 Calc F LENGTH OF DIALYSIS 2024-09-15 05:24:10 163 min F BSA EL 2024-09-15 05:24:10 2.16 sq m F PATIENT AGE 2024-09-15 05:24:10 69 Years F WEIGHT - PRE DAY 1 2024-09-15 05:24:10 103 kg F WEIGHT - POST DAY 1 2024-09-15 05:24:10 101.2 kg F Total Kt/V 2024-09-15 05:24:10 1.11 F HEIGHT IN INCHES 2024-09-15 05:24:10 69 Inches F WEIGHT (KG) 2024-09-15 05:24:10 101 kg F PRESCRIBED DAYS/WEEK 2024-09-15 05:24:10 2 Day/Wk F VT (KT/V TX VOL) 2024-09-15 05:24:10 42.7 L F VM (KT/V MEAN VOL) 2024-09-15 05:24:10 43.5 F KT/V PRESCRIBED 2024-09-15 05:24:10 1.18 F Residual kt/v 2024-09-15 05:24:10 F Total Kt/V 2024-09-15 05:24:10 1.11 F nPCR 2024-09-15 05:24:10 0.68 G/KG/D F AMPUTATE FACTOR 2024-09-15 05:24:10 0 F HEIGHT IN INCHES 2024-09-15 05:24:10 69 Inches F TBW (Juan) 2024-09-15 05:24:10 48.63 Liters F Std Renal KT/V 2024-09-15 05:24:10 N/A F spKt/V 2024-09-15 05:24:10 1.11 F eKt/V 2024-09-15 05:24:10 0.92 F stdKT/V Total 2024-09-15 05:24:10 N/A F stdKt/V (DIAL) 2024-09-15 05:24:10 N/A F TOTAL HOURS/WEEK DIALYSIS 2024-09-15 05:24:10 5 hrs F BLOOD FLOW-QWB 2024-09-15 05:24:10 387 F Std Renal KT/V 2024-09-15 05:24:10 N/A F TBW (Juan) 2024-09-15 05:24:10 48.63 Liters F CURRENT KRU 2024-09-15 05:24:10 F WEIGHT - POST DAY 1 2024-09-15 05:24:10 101.2 kg F VT (KT/V TX VOL) 2024-09-15 05:24:10 42.7 L F TOTAL HOURS/WEEK DIALYSIS 2024-09-15 05:24:10 5 hrs F WEIGHT - PRE DAY 1 2024-09-15 05:24:10 103 kg F Dialyzer ROSARIO 2024-09-15 05:24:10 1264 Calc F KT/V PRESCRIBED 2024-09-15 05:24:10 1.18 F PATIENT AGE 2024-09-15 05:24:10 69 Years F DIALYZER FLOW-QD 2024-09-15 05:24:10 800 mL/min F stdKT/V Total 2024-09-15 05:24:10 N/A F eKt/V 2024-09-15 05:24:10 0.92 F Residual kt/v 2024-09-15 05:24:10 F CURRENT KRU 2024-09-15 05:24:10 F AMPUTATE FACTOR 2024-09-15 05:24:10 0 F TOTAL HOURS/WEEK DIALYSIS 2024-09-15 05:24:10 5 hrs F WEIGHT - PRE DAY 1 2024-09-15 05:24:10 103 kg F Std Renal KT/V 2024-09-15 05:24:10 N/A F spKt/V 2024-09-15 05:24:10 1.11 F stdKt/V (DIAL) 2024-09-15 05:24:10 N/A F DIALYZER FLOW-QD 2024-09-15 05:24:10 800 mL/min F Total Kt/V 2024-09-15 05:24:10 1.11 F HEIGHT IN INCHES 2024-09-15 05:24:10 69 Inches F CURRENT KRU 2024-09-15 05:24:10 F PATIENT AGE 2024-09-15 05:24:10 69 Years F WEIGHT (KG) 2024-09-15 05:24:10 101 kg F KT/V PRESCRIBED 2024-09-15 05:24:10 1.18 F BLOOD FLOW-QWB 2024-09-15 05:24:10 387 F VT (KT/V TX VOL) 2024-09-15 05:24:10 42.7 L F nPCR 2024-09-15 05:24:10 0.68 G/KG/D F Dialyzer ROSARIO 2024-09-15 05:24:10 1264 Calc F PRESCRIBED DAYS/WEEK 2024-09-15 05:24:10 2 Day/Wk F LENGTH OF DIALYSIS 2024-09-15 05:24:10 163 min F eKt/V 2024-09-15 05:24:10 0.92 F VM (KT/V MEAN VOL) 2024-09-15 05:24:10 43.5 F BSA EL 2024-09-15 05:24:10 2.16 sq m F TBW (Martinez) 2024-09-15 05:24:10 48.63 Liters F WEIGHT - POST DAY 1 2024-09-15 05:24:10 101.2 kg F stdKT/V Total 2024-09-15 05:24:10 N/A F Residual kt/v 2024-09-15 05:24:10 F nPCR 2024-09-15 05:24:10 0.68 G/KG/D F VM (KT/V MEAN VOL) 2024-09-15 05:24:10 43.5 F BLOOD FLOW-QWB 2024-09-15 05:24:10 387 F WEIGHT (KG) 2024-09-15 05:24:10 101 kg F Residual kt/v 2024-09-15 05:24:10 F WEIGHT - POST DAY 1 2024-09-15 05:24:10 101.2 kg F eKt/V 2024-09-15 05:24:10 0.92 F WEIGHT - PRE DAY 1 2024-09-15 05:24:10 103 kg F PATIENT AGE 2024-09-15 05:24:10 69 Years F PRESCRIBED DAYS/WEEK 2024-09-15 05:24:10 2 Day/Wk F TBW (Martinez) 2024-09-15 05:24:10 48.63 Liters F AMPUTATE FACTOR 2024-09-15 05:24:10 0 F Std Renal KT/V 2024-09-15 05:24:10 N/A F stdKT/V Total 2024-09-15 05:24:10 N/A F Total Kt/V 2024-09-15 05:24:10 1.11 F spKt/V 2024-09-15 05:24:10 1.11 F CURRENT KRU 2024-09-15 05:24:10 F HEIGHT IN INCHES 2024-09-15 05:24:10 69 Inches F BSA EL 2024-09-15 05:24:10 2.16 sq m F KT/V PRESCRIBED 2024-09-15 05:24:10 1.18 F LENGTH OF DIALYSIS 2024-09-15 05:24:10 163 min F stdKt/V (DIAL) 2024-09-15 05:24:10 N/A F Dialyzer ROSARIO 2024-09-15 05:24:10 1264 Calc F TOTAL HOURS/WEEK DIALYSIS 2024-09-15 05:24:10 5 hrs F DIALYZER FLOW-QD 2024-09-15 05:24:10 800 mL/min F VT (KT/V TX VOL) 2024-09-15 05:24:10 42.7 L F URR% 2024-09-15 05:24:08 63 % F URR% 2024-09-15 05:24:08 63 % F URR% 2024-09-15 05:24:08 63 % F URR% 2024-09-15 05:24:08 63 % F Urea nitrogen [Mass/volume] in Serum or Plasma 2024-09-15 05:22:22 57 mg/dL F 9.0-23.0 Creatinine [Mass/volume] in Serum or Plasma 2024-09-15 05:22:22 8.04 mg/dL F 0.7-1.3 Creatinine [Mass/volume] in Serum or Plasma 2024-09-15 05:22:22 8.04 mg/dL F 0.7-1.3 Urea nitrogen [Mass/volume] in Serum or Plasma 2024-09-15 05:22:22 57 mg/dL F 9.0-23.0 Creatinine [Mass/volume] in Serum or Plasma 2024-09-15 05:22:22 8.04 mg/dL F 0.7-1.3 Urea nitrogen [Mass/volume] in Serum or Plasma 2024-09-15 05:22:22 57 mg/dL F 9.0-23.0 Creatinine [Mass/volume] in Serum or Plasma 2024-09-15 05:22:22 8.04 mg/dL F 0.7-1.3 Urea nitrogen [Mass/volume] in Serum or Plasma 2024-09-15 05:22:22 57 mg/dL F 9.0-23.0 Urea nitrogen [Mass/volume] in Serum or Plasma --post dialysis 2024-09-14 18:50:21 21 mg/dL F 9.0-23.0 Urea nitrogen [Mass/volume] in Serum or Plasma --post dialysis 2024-09-14 18:50:21 21 mg/dL F 9.0-23.0 Urea nitrogen [Mass/volume] in Serum or Plasma --post dialysis 2024-09-14 18:50:21 21 mg/dL F 9.0-23.0 Urea nitrogen [Mass/volume] in Serum or Plasma --post dialysis 2024-09-14 18:50:21 21 mg/dL F 9.0-23.0 Creatinine [Mass/volume] in Serum or Plasma 2024-08-31 18:41:05 F Recollect - Unsp un specimen URR% 2024-08-25 02:00:33 67 % F DIALYZER FLOW-QD 2024-08-25 02:00:33 800 mL/min F Dialyzer ROSARIO 2024-08-25 02:00:33 1264 Calc F LENGTH OF DIALYSIS 2024-08-25 02:00:33 190 min F WEIGHT - POST DAY 1 2024-08-25 02:00:33 101 kg F PATIENT AGE 2024-08-25 02:00:33 69 Years F WEIGHT - PRE DAY 1 2024-08-25 02:00:33 104.1 kg F HEIGHT IN INCHES 2024-08-25 02:00:33 69 Inches F WEIGHT (KG) 2024-08-25 02:00:33 101 kg F BSA EL 2024-08-25 02:00:33 2.16 sq m F PRESCRIBED DAYS/WEEK 2024-08-25 02:00:33 2 Day/Wk F VM (KT/V MEAN VOL) 2024-08-25 02:00:33 43.7 F Residual kt/v 2024-08-25 02:00:33 F VT (KT/V TX VOL) 2024-08-25 02:00:33 41.8 L F KT/V PRESCRIBED 2024-08-25 02:00:33 1.38 F Total Kt/V 2024-08-25 02:00:33 1.29 F AMPUTATE FACTOR 2024-08-25 02:00:33 0 F nPCR 2024-08-25 02:00:33 0.82 G/KG/D F TBW (Martinez) 2024-08-25 02:00:33 48.56 Liters F spKt/V 2024-08-25 02:00:33 1.29 F eKt/V 2024-08-25 02:00:33 1.09 F stdKt/V (DIAL) 2024-08-25 02:00:33 N/A F Std Renal KT/V 2024-08-25 02:00:33 N/A F stdKT/V Total 2024-08-25 02:00:33 N/A F TOTAL HOURS/WEEK DIALYSIS 2024-08-25 02:00:33 6 hrs F BLOOD FLOW-QWB 2024-08-25 02:00:33 374 F CURRENT KRU 2024-08-25 02:00:33 F URR% 2024-08-25 02:00:33 67 % F DIALYZER FLOW-QD 2024-08-25 02:00:33 800 mL/min F Dialyzer ROSARIO 2024-08-25 02:00:33 1264 Calc F PATIENT AGE 2024-08-25 02:00:33 69 Years F LENGTH OF DIALYSIS 2024-08-25 02:00:33 190 min F BSA EL 2024-08-25 02:00:33 2.16 sq m F WEIGHT - POST DAY 1 2024-08-25 02:00:33 101 kg F WEIGHT - PRE DAY 1 2024-08-25 02:00:33 104.1 kg F HEIGHT IN INCHES 2024-08-25 02:00:33 69 Inches F VT (KT/V TX VOL) 2024-08-25 02:00:33 41.8 L F WEIGHT (KG) 2024-08-25 02:00:33 101 kg F VM (KT/V MEAN VOL) 2024-08-25 02:00:33 43.7 F PRESCRIBED DAYS/WEEK 2024-08-25 02:00:33 2 Day/Wk F KT/V PRESCRIBED 2024-08-25 02:00:33 1.38 F Residual kt/v 2024-08-25 02:00:33 F Total Kt/V 2024-08-25 02:00:33 1.29 F nPCR 2024-08-25 02:00:33 0.82 G/KG/D F AMPUTATE FACTOR 2024-08-25 02:00:33 0 F TBW (Martinez) 2024-08-25 02:00:33 48.56 Liters F spKt/V 2024-08-25 02:00:33 1.29 F stdKt/V (DIAL) 2024-08-25 02:00:33 N/A F eKt/V 2024-08-25 02:00:33 1.09 F Std Renal KT/V 2024-08-25 02:00:33 N/A F stdKT/V Total 2024-08-25 02:00:33 N/A F TOTAL HOURS/WEEK DIALYSIS 2024-08-25 02:00:33 6 hrs F BLOOD FLOW-QWB 2024-08-25 02:00:33 374 F CURRENT KRU 2024-08-25 02:00:33 F DIALYZER FLOW-QD 2024-08-25 02:00:33 800 mL/min F BLOOD FLOW-QWB 2024-08-25 02:00:33 374 F CURRENT KRU 2024-08-25 02:00:33 F VM (KT/V MEAN VOL) 2024-08-25 02:00:33 43.7 F spKt/V 2024-08-25 02:00:33 1.29 F Dialyzer ROSARIO 2024-08-25 02:00:33 1264 Calc F VT (KT/V TX VOL) 2024-08-25 02:00:33 41.8 L F Total Kt/V 2024-08-25 02:00:33 1.29 F Std Renal KT/V 2024-08-25 02:00:33 N/A F PRESCRIBED DAYS/WEEK 2024-08-25 02:00:33 2 Day/Wk F WEIGHT - POST DAY 1 2024-08-25 02:00:33 101 kg F stdKT/V Total 2024-08-25 02:00:33 N/A F URR% 2024-08-25 02:00:33 67 % F AMPUTATE FACTOR 2024-08-25 02:00:33 0 F LENGTH OF DIALYSIS 2024-08-25 02:00:33 190 min F stdKt/V (DIAL) 2024-08-25 02:00:33 N/A F WEIGHT (KG) 2024-08-25 02:00:33 101 kg F WEIGHT - PRE DAY 1 2024-08-25 02:00:33 104.1 kg F eKt/V 2024-08-25 02:00:33 1.09 F KT/V PRESCRIBED 2024-08-25 02:00:33 1.38 F TBW (Martinez) 2024-08-25 02:00:33 48.56 Liters F nPCR 2024-08-25 02:00:33 0.82 G/KG/D F HEIGHT IN INCHES 2024-08-25 02:00:33 69 Inches F PATIENT AGE 2024-08-25 02:00:33 69 Years F TOTAL HOURS/WEEK DIALYSIS 2024-08-25 02:00:33 6 hrs F Residual kt/v 2024-08-25 02:00:33 F BSA EL 2024-08-25 02:00:33 2.16 sq m F URR% 2024-08-25 02:00:33 67 % F DIALYZER FLOW-QD 2024-08-25 02:00:33 800 mL/min F LENGTH OF DIALYSIS 2024-08-25 02:00:33 190 min F Dialyzer ROSARIO 2024-08-25 02:00:33 1264 Calc F BSA EL 2024-08-25 02:00:33 2.16 sq m F PATIENT AGE 2024-08-25 02:00:33 69 Years F WEIGHT - PRE DAY 1 2024-08-25 02:00:33 104.1 kg F WEIGHT - POST DAY 1 2024-08-25 02:00:33 101 kg F HEIGHT IN INCHES 2024-08-25 02:00:33 69 Inches F WEIGHT (KG) 2024-08-25 02:00:33 101 kg F PRESCRIBED DAYS/WEEK 2024-08-25 02:00:33 2 Day/Wk F VT (KT/V TX VOL) 2024-08-25 02:00:33 41.8 L F VM (KT/V MEAN VOL) 2024-08-25 02:00:33 43.7 F Total Kt/V 2024-08-25 02:00:33 1.29 F Residual kt/v 2024-08-25 02:00:33 F KT/V PRESCRIBED 2024-08-25 02:00:33 1.38 F nPCR 2024-08-25 02:00:33 0.82 G/KG/D F AMPUTATE FACTOR 2024-08-25 02:00:33 0 F TBW (Martinez) 2024-08-25 02:00:33 48.56 Liters F spKt/V 2024-08-25 02:00:33 1.29 F eKt/V 2024-08-25 02:00:33 1.09 F Std Renal KT/V 2024-08-25 02:00:33 N/A F stdKT/V Total 2024-08-25 02:00:33 N/A F stdKt/V (DIAL) 2024-08-25 02:00:33 N/A F TOTAL HOURS/WEEK DIALYSIS 2024-08-25 02:00:33 6 hrs F CURRENT KRU 2024-08-25 02:00:33 F BLOOD FLOW-QWB 2024-08-25 02:00:33 374 F Urea nitrogen [Mass/volume] in Serum or Plasma 2024-08-25 01:58:26 64 mg/dL F 9.0-23.0 Urea nitrogen [Mass/volume] in Serum or Plasma 2024-08-25 01:58:26 64 mg/dL F 9.0-23.0 Urea nitrogen [Mass/volume] in Serum or Plasma 2024-08-25 01:58:26 64 mg/dL F 9.0-23.0 Urea nitrogen [Mass/volume] in Serum or Plasma 2024-08-25 01:58:26 64 mg/dL F 9.0-23.0 Urea nitrogen [Mass/volume] in Serum or Plasma --post dialysis 2024-08-24 22:38:21 21 mg/dL F 9.0-23.0 Urea nitrogen [Mass/volume] in Serum or Plasma --post dialysis 2024-08-24 22:38:21 21 mg/dL F 9.0-23.0 Urea nitrogen [Mass/volume] in Serum or Plasma --post dialysis 2024-08-24 22:38:21 21 mg/dL F 9.0-23.0 Urea nitrogen [Mass/volume] in Serum or Plasma --post dialysis 2024-08-24 22:38:21 21 mg/dL F 9.0-23.0 Creatinine [Mass/volume] in Serum or Plasma 2024-08-10 13:13:24 7.65 mg/dL F 0.7-1.3 Creatinine [Mass/volume] in Serum or Plasma 2024-08-10 13:13:24 7.65 mg/dL F 0.7-1.3 DIALYZER FLOW-QD 2024-08-03 14:09:01 800 mL/min F URR% 2024-08-03 14:09:01 68 % F LENGTH OF DIALYSIS 2024-08-03 14:09:01 190 min F Dialyzer ROSARIO 2024-08-03 14:09:01 1264 Calc F PATIENT AGE 2024-08-03 14:09:01 69 Years F BSA EL 2024-08-03 14:09:01 2.16 sq m F WEIGHT - PRE DAY 1 2024-08-03 14:09:01 102.8 kg F WEIGHT - POST DAY 1 2024-08-03 14:09:01 100.7 kg F HEIGHT IN INCHES 2024-08-03 14:09:01 69 Inches F WEIGHT (KG) 2024-08-03 14:09:01 101 kg F PRESCRIBED DAYS/WEEK 2024-08-03 14:09:01 2 Day/Wk F VT (KT/V TX VOL) 2024-08-03 14:09:01 41.1 L F Residual kt/v 2024-08-03 14:09:01 F KT/V PRESCRIBED 2024-08-03 14:09:01 1.38 F VM (KT/V MEAN VOL) 2024-08-03 14:09:01 44.3 F nPCR 2024-08-03 14:09:01 0.6 G/KG/D F Total Kt/V 2024-08-03 14:09:01 1.29 F AMPUTATE FACTOR 2024-08-03 14:09:01 0 F TBW (Martinez) 2024-08-03 14:09:01 48.46 Liters F spKt/V 2024-08-03 14:09:01 1.29 F stdKt/V (DIAL) 2024-08-03 14:09:01 N/A F Std Renal KT/V 2024-08-03 14:09:01 N/A F eKt/V 2024-08-03 14:09:01 1.08 F stdKT/V Total 2024-08-03 14:09:01 N/A F TOTAL HOURS/WEEK DIALYSIS 2024-08-03 14:09:01 6 hrs F BLOOD FLOW-QWB 2024-08-03 14:09:01 362 F CURRENT KRU 2024-08-03 14:09:01 F URR% 2024-08-03 14:09:01 68 % F DIALYZER FLOW-QD 2024-08-03 14:09:01 800 mL/min F Dialyzer ROSARIO 2024-08-03 14:09:01 1264 Calc F LENGTH OF DIALYSIS 2024-08-03 14:09:01 190 min F PATIENT AGE 2024-08-03 14:09:01 69 Years F BSA EL 2024-08-03 14:09:01 2.16 sq m F WEIGHT - POST DAY 1 2024-08-03 14:09:01 100.7 kg F WEIGHT - PRE DAY 1 2024-08-03 14:09:01 102.8 kg F HEIGHT IN INCHES 2024-08-03 14:09:01 69 Inches F WEIGHT (KG) 2024-08-03 14:09:01 101 kg F PRESCRIBED DAYS/WEEK 2024-08-03 14:09:01 2 Day/Wk F VT (KT/V TX VOL) 2024-08-03 14:09:01 41.1 L F VM (KT/V MEAN VOL) 2024-08-03 14:09:01 44.3 F Residual kt/v 2024-08-03 14:09:01 F KT/V PRESCRIBED 2024-08-03 14:09:01 1.38 F Total Kt/V 2024-08-03 14:09:01 1.29 F nPCR 2024-08-03 14:09:01 0.6 G/KG/D F AMPUTATE FACTOR 2024-08-03 14:09:01 0 F TBW (Martinez) 2024-08-03 14:09:01 48.46 Liters F spKt/V 2024-08-03 14:09:01 1.29 F eKt/V 2024-08-03 14:09:01 1.08 F stdKt/V (DIAL) 2024-08-03 14:09:01 N/A F Std Renal KT/V 2024-08-03 14:09:01 N/A F stdKT/V Total 2024-08-03 14:09:01 N/A F TOTAL HOURS/WEEK DIALYSIS 2024-08-03 14:09:01 6 hrs F BLOOD FLOW-QWB 2024-08-03 14:09:01 362 F CURRENT KRU 2024-08-03 14:09:01 F Urea nitrogen [Mass/volume] in Serum or Plasma --post dialysis 2024-08-03 14:07:21 14 mg/dL F 9.0-23.0 Urea nitrogen [Mass/volume] in Serum or Plasma --post dialysis 2024-08-03 14:07:21 14 mg/dL F 9.0-23.0 Urea nitrogen [Mass/volume] in Serum or Plasma 2024-08-03 13:57:17 44 mg/dL F 9.0-23.0 Urea nitrogen [Mass/volume] in Serum or Plasma 2024-08-03 13:57:17 44 mg/dL F 9.0-23.0 DIALYZER FLOW-QD 2024-07-29 20:36:11 800 mL/min F Dialyzer ROSARIO 2024-07-29 20:36:11 1264 Calc F URR% 2024-07-29 20:36:11 F Unable to calculate: Post BUN lab result is unknown LENGTH OF DIALYSIS 2024-07-29 20:36:11 188 min F BSA EL 2024-07-29 20:36:11 F Unable to calculate: Post BUN lab result is unknown PATIENT AGE 2024-07-29 20:36:11 68 Years F WEIGHT - POST DAY 1 2024-07-29 20:36:11 101 kg F HEIGHT IN INCHES 2024-07-29 20:36:11 69 Inches F WEIGHT (KG) 2024-07-29 20:36:11 101 kg F PRESCRIBED DAYS/WEEK 2024-07-29 20:36:11 2 Day/Wk F WEIGHT - PRE DAY 1 2024-07-29 20:36:11 103.3 kg F VT (KT/V TX VOL) 2024-07-29 20:36:11 F Unable to calculate: Post BUN lab result is unknown Residual kt/v 2024-07-29 20:36:11 F Unable to calculate: Post BUN lab result is unknown KT/V PRESCRIBED 2024-07-29 20:36:11 F Unable to calculate: Post BUN lab result is unknown VM (KT/V MEAN VOL) 2024-07-29 20:36:11 F Unable to calculate: Post BUN lab result is unknown Total Kt/V 2024-07-29 20:36:11 F Unable to calculate: Post BUN lab result is unknown nPCR 2024-07-29 20:36:11 F Unable to calculate: Post BUN lab result is unknown TBW (Martinez) 2024-07-29 20:36:11 F Unable to calculate: Post BUN lab result is unknown AMPUTATE FACTOR 2024-07-29 20:36:11 0 F eKt/V 2024-07-29 20:36:11 F Unable to calculate: Post BUN lab result is unknown stdKt/V (DIAL) 2024-07-29 20:36:11 F Unable to calculate: Post BUN lab result is unknown Std Renal KT/V 2024-07-29 20:36:11 F Unable to calculate: Post BUN lab result is unknown spKt/V 2024-07-29 20:36:11 F Unable to calculate: Post BUN lab result is unknown stdKT/V Total 2024-07-29 20:36:11 F Unable to calculate: Post BUN lab result is unknown TOTAL HOURS/WEEK DIALYSIS 2024-07-29 20:36:11 6 hrs F BLOOD FLOW-QWB 2024-07-29 20:36:11 349 F CURRENT KRU 2024-07-29 20:36:11 F Unable to calculate: Post BUN lab result is unknown URR% 2024-07-29 20:36:11 F Unable to calculate: Post BUN lab result is unknown DIALYZER FLOW-QD 2024-07-29 20:36:11 800 mL/min F Dialyzer ROSARIO 2024-07-29 20:36:11 1264 Calc F LENGTH OF DIALYSIS 2024-07-29 20:36:11 188 min F PATIENT AGE 2024-07-29 20:36:11 68 Years F BSA EL 2024-07-29 20:36:11 F Unable to calculate: Post BUN lab result is unknown WEIGHT - POST DAY 1 2024-07-29 20:36:11 101 kg F WEIGHT - PRE DAY 1 2024-07-29 20:36:11 103.3 kg F HEIGHT IN INCHES 2024-07-29 20:36:11 69 Inches F WEIGHT (KG) 2024-07-29 20:36:11 101 kg F PRESCRIBED DAYS/WEEK 2024-07-29 20:36:11 2 Day/Wk F VT (KT/V TX VOL) 2024-07-29 20:36:11 F Unable to calculate: Post BUN lab result is unknown VM (KT/V MEAN VOL) 2024-07-29 20:36:11 F Unable to calculate: Post BUN lab result is unknown Residual kt/v 2024-07-29 20:36:11 F Unable to calculate: Post BUN lab result is unknown KT/V PRESCRIBED 2024-07-29 20:36:11 F Unable to calculate: Post BUN lab result is unknown Total Kt/V 2024-07-29 20:36:11 F Unable to calculate: Post BUN lab result is unknown nPCR 2024-07-29 20:36:11 F Unable to calculate: Post BUN lab result is unknown AMPUTATE FACTOR 2024-07-29 20:36:11 0 F TBW (Martinez) 2024-07-29 20:36:11 F Unable to calculate: Post BUN lab result is unknown spKt/V 2024-07-29 20:36:11 F Unable to calculate: Post BUN lab result is unknown eKt/V 2024-07-29 20:36:11 F Unable to calculate: Post BUN lab result is unknown stdKt/V (DIAL) 2024-07-29 20:36:11 F Unable to calculate: Post BUN lab result is unknown Std Renal KT/V 2024-07-29 20:36:11 F Unable to calculate: Post BUN lab result is unknown stdKT/V Total 2024-07-29 20:36:11 F Unable to calculate: Post BUN lab result is unknown TOTAL HOURS/WEEK DIALYSIS 2024-07-29 20:36:11 6 hrs F BLOOD FLOW-QWB 2024-07-29 20:36:11 349 F CURRENT KRU 2024-07-29 20:36:11 F Unable to calculate: Post BUN lab result is unknown Urea nitrogen [Mass/volume] in Serum or Plasma 2024-07-29 20:34:18 54 mg/dL F 9.0-23.0 Urea nitrogen [Mass/volume] in Serum or Plasma 2024-07-29 20:34:18 54 mg/dL F 9.0-23.0 Urea nitrogen [Mass/volume] in Serum or Plasma --post dialysis 2024-07-27 15:26:42 F Recollect - Unsp un specimen Urea nitrogen [Mass/volume] in Serum or Plasma --post dialysis 2024-07-27 15:26:42 F Recollect - Unsp un specimen Creatinine [Mass/volume] in Serum or Plasma 2024-04-02 14:44:28 8.1 mg/dL F 0.7-1.3 Creatinine [Mass/volume] in Serum or Plasma 2024-04-02 14:44:28 8.1 mg/dL F 0.7-1.3 Creatinine [Mass/volume] in Serum or Plasma 2024-04-02 14:44:28 8.1 mg/dL F 0.7-1.3 URR% 2024-02-16 15:33:03 59 % F DIALYZER FLOW-QD 2024-02-16 15:33:03 500 mL/min F LENGTH OF DIALYSIS 2024-02-16 15:33:03 180 min F PATIENT AGE 2024-02-16 15:33:03 68 Years F WEIGHT - PRE DAY 1 2024-02-16 15:33:03 104.1 kg F WEIGHT (KG) 2024-02-16 15:33:03 102 kg F PRESCRIBED DAYS/WEEK 2024-02-16 15:33:03 3 Day/Wk F VM (KT/V MEAN VOL) 2024-02-16 15:33:03 48.6 F Total Kt/V 2024-02-16 15:33:03 0.94 F TBW (Martinez) 2024-02-16 15:33:03 58.69 Liters F eKt/V 2024-02-16 15:33:03 0.8 F Std Renal KT/V 2024-02-16 15:33:03 N/A F spKt/V 2024-02-16 15:33:03 0.94 F stdKT/V Total 2024-02-16 15:33:03 N/A F CURRENT KRU 2024-02-16 15:33:03 F Dialyzer ROSARIO 2024-02-16 15:33:03 1218 Calc F BSA EL 2024-02-16 15:33:03 2.9 sq m F HEIGHT IN INCHES 2024-02-16 15:33:03 103 Inches F WEIGHT - POST DAY 1 2024-02-16 15:33:03 103.4 kg F VT (KT/V TX VOL) 2024-02-16 15:33:03 48.6 L F Residual kt/v 2024-02-16 15:33:03 F KT/V PRESCRIBED 2024-02-16 15:33:03 0.99 F nPCR 2024-02-16 15:33:03 0.29 G/KG/D F AMPUTATE FACTOR 2024-02-16 15:33:03 0 F stdKt/V (DIAL) 2024-02-16 15:33:03 N/A F BLOOD FLOW-QWB 2024-02-16 15:33:03 357 F TOTAL HOURS/WEEK DIALYSIS 2024-02-16 15:33:03 3 hrs F URR% 2024-02-16 15:33:03 59 % F DIALYZER FLOW-QD 2024-02-16 15:33:03 500 mL/min F LENGTH OF DIALYSIS 2024-02-16 15:33:03 180 min F Dialyzer ROSARIO 2024-02-16 15:33:03 1218 Calc F PATIENT AGE 2024-02-16 15:33:03 68 Years F WEIGHT - POST DAY 1 2024-02-16 15:33:03 103.4 kg F WEIGHT - PRE DAY 1 2024-02-16 15:33:03 104.1 kg F BSA EL 2024-02-16 15:33:03 2.9 sq m F HEIGHT IN INCHES 2024-02-16 15:33:03 103 Inches F WEIGHT (KG) 2024-02-16 15:33:03 102 kg F VT (KT/V TX VOL) 2024-02-16 15:33:03 48.6 L F VM (KT/V MEAN VOL) 2024-02-16 15:33:03 48.6 F PRESCRIBED DAYS/WEEK 2024-02-16 15:33:03 3 Day/Wk F KT/V PRESCRIBED 2024-02-16 15:33:03 0.99 F Residual kt/v 2024-02-16 15:33:03 F Total Kt/V 2024-02-16 15:33:03 0.94 F nPCR 2024-02-16 15:33:03 0.29 G/KG/D F AMPUTATE FACTOR 2024-02-16 15:33:03 0 F TBW (Martinez) 2024-02-16 15:33:03 58.69 Liters F spKt/V 2024-02-16 15:33:03 0.94 F eKt/V 2024-02-16 15:33:03 0.8 F stdKt/V (DIAL) 2024-02-16 15:33:03 N/A F stdKT/V Total 2024-02-16 15:33:03 N/A F TOTAL HOURS/WEEK DIALYSIS 2024-02-16 15:33:03 3 hrs F BLOOD FLOW-QWB 2024-02-16 15:33:03 357 F Std Renal KT/V 2024-02-16 15:33:03 N/A F CURRENT KRU 2024-02-16 15:33:03 F URR% 2024-02-16 15:33:03 59 % F DIALYZER FLOW-QD 2024-02-16 15:33:03 500 mL/min F Dialyzer ROSARIO 2024-02-16 15:33:03 1218 Calc F LENGTH OF DIALYSIS 2024-02-16 15:33:03 180 min F BSA EL 2024-02-16 15:33:03 2.9 sq m F PATIENT AGE 2024-02-16 15:33:03 68 Years F WEIGHT - POST DAY 1 2024-02-16 15:33:03 103.4 kg F HEIGHT IN INCHES 2024-02-16 15:33:03 103 Inches F WEIGHT - PRE DAY 1 2024-02-16 15:33:03 104.1 kg F PRESCRIBED DAYS/WEEK 2024-02-16 15:33:03 3 Day/Wk F WEIGHT (KG) 2024-02-16 15:33:03 102 kg F VM (KT/V MEAN VOL) 2024-02-16 15:33:03 48.6 F Residual kt/v 2024-02-16 15:33:03 F VT (KT/V TX VOL) 2024-02-16 15:33:03 48.6 L F KT/V PRESCRIBED 2024-02-16 15:33:03 0.99 F nPCR 2024-02-16 15:33:03 0.29 G/KG/D F AMPUTATE FACTOR 2024-02-16 15:33:03 0 F Total Kt/V 2024-02-16 15:33:03 0.94 F TBW (Martinez) 2024-02-16 15:33:03 58.69 Liters F spKt/V 2024-02-16 15:33:03 0.94 F eKt/V 2024-02-16 15:33:03 0.8 F stdKt/V (DIAL) 2024-02-16 15:33:03 N/A F Std Renal KT/V 2024-02-16 15:33:03 N/A F stdKT/V Total 2024-02-16 15:33:03 N/A F TOTAL HOURS/WEEK DIALYSIS 2024-02-16 15:33:03 3 hrs F BLOOD FLOW-QWB 2024-02-16 15:33:03 357 F CURRENT KRU 2024-02-16 15:33:03 F Dialyzer ROSARIO 2024-02-16 15:33:03 1218 Calc F WEIGHT - PRE DAY 1 2024-02-16 15:33:03 104.1 kg F BSA EL 2024-02-16 15:33:03 2.9 sq m F DIALYZER FLOW-QD 2024-02-16 15:33:03 500 mL/min F WEIGHT (KG) 2024-02-16 15:33:03 102 kg F PATIENT AGE 2024-02-16 15:33:03 68 Years F URR% 2024-02-16 15:33:03 59 % F nPCR 2024-02-16 15:33:03 0.29 G/KG/D F eKt/V 2024-02-16 15:33:03 0.8 F LENGTH OF DIALYSIS 2024-02-16 15:33:03 180 min F WEIGHT - POST DAY 1 2024-02-16 15:33:03 103.4 kg F VM (KT/V MEAN VOL) 2024-02-16 15:33:03 48.6 F VT (KT/V TX VOL) 2024-02-16 15:33:03 48.6 L F spKt/V 2024-02-16 15:33:03 0.94 F TOTAL HOURS/WEEK DIALYSIS 2024-02-16 15:33:03 3 hrs F BLOOD FLOW-QWB 2024-02-16 15:33:03 357 F TBW (Martinez) 2024-02-16 15:33:03 58.69 Liters F KT/V PRESCRIBED 2024-02-16 15:33:03 0.99 F Total Kt/V 2024-02-16 15:33:03 0.94 F Residual kt/v 2024-02-16 15:33:03 F CURRENT KRU 2024-02-16 15:33:03 F stdKt/V (DIAL) 2024-02-16 15:33:03 N/A F Std Renal KT/V 2024-02-16 15:33:03 N/A F PRESCRIBED DAYS/WEEK 2024-02-16 15:33:03 3 Day/Wk F stdKT/V Total 2024-02-16 15:33:03 N/A F AMPUTATE FACTOR 2024-02-16 15:33:03 0 F HEIGHT IN INCHES 2024-02-16 15:33:03 103 Inches F Urea nitrogen [Mass/volume] in Serum or Plasma 2024-02-16 15:31:35 32 mg/dL F 9.0-23.0 Creatinine [Mass/volume] in Serum or Plasma 2024-02-16 15:31:35 5.84 mg/dL F 0.7-1.3 Urea nitrogen [Mass/volume] in Serum or Plasma 2024-02-16 15:31:35 32 mg/dL F 9.0-23.0 Creatinine [Mass/volume] in Serum or Plasma 2024-02-16 15:31:35 5.84 mg/dL F 0.7-1.3 Urea nitrogen [Mass/volume] in Serum or Plasma 2024-02-16 15:31:35 32 mg/dL F 9.0-23.0 Creatinine [Mass/volume] in Serum or Plasma 2024-02-16 15:31:35 5.84 mg/dL F 0.7-1.3 Creatinine [Mass/volume] in Serum or Plasma 2024-02-16 15:31:35 5.84 mg/dL F 0.7-1.3 Urea nitrogen [Mass/volume] in Serum or Plasma 2024-02-16 15:31:35 32 mg/dL F 9.0-23.0 Urea nitrogen [Mass/volume] in Serum or Plasma --post dialysis 2024-02-16 15:02:42 13 mg/dL F 9.0-23.0 Urea nitrogen [Mass/volume] in Serum or Plasma --post dialysis 2024-02-16 15:02:42 13 mg/dL F 9.0-23.0 Urea nitrogen [Mass/volume] in Serum or Plasma --post dialysis 2024-02-16 15:02:42 13 mg/dL F 9.0-23.0 Urea nitrogen [Mass/volume] in Serum or Plasma --post dialysis 2024-02-16 15:02:42 13 mg/dL F 9.0-23.0 PRESCRIBED DAYS/WEEK spKt/V stdKT/V Total BSA EL Dialyzer ROSARIO CURRENT KRU TBW (Martinez) TOTAL HOURS/WEEK DIALYSIS WEIGHT - POST DAY 1 eKt/V WEIGHT (KG) Residual kt/v WEIGHT - PRE DAY 1 DIALYZER FLOW-QD VT (KT/V TX VOL) PATIENT AGE Urea nitrogen [Mass/volume] in Serum or Plasma KT/V PRESCRIBED AMPUTATE FACTOR URR% HEIGHT IN INCHES Std Renal KT/V Total Kt/V nPCR BLOOD FLOW-QWB VM (KT/V MEAN VOL) LENGTH OF DIALYSIS stdKt/V (DIAL) DIALYZER FLOW-QD Dialyzer ROSARIO PATIENT AGE BSA EL WEIGHT - POST DAY 1 WEIGHT - PRE DAY 1 WEIGHT (KG) VT (KT/V TX VOL) Residual kt/v PRESCRIBED DAYS/WEEK TBW (Martinez) eKt/V spKt/V TOTAL HOURS/WEEK DIALYSIS CURRENT KRU Urea nitrogen [Mass/volume] in Serum or Plasma LENGTH OF DIALYSIS stdKT/V Total URR% HEIGHT IN INCHES VM (KT/V MEAN VOL) KT/V PRESCRIBED Total Kt/V AMPUTATE FACTOR nPCR stdKt/V (DIAL) Std Renal KT/V BLOOD FLOW-QWB URR% Dialyzer ROSARIO LENGTH OF DIALYSIS WEIGHT - PRE DAY 1 VT (KT/V TX VOL) AMPUTATE FACTOR nPCR TBW (Martinez) eKt/V Std Renal KT/V TOTAL HOURS/WEEK DIALYSIS stdKT/V Total stdKt/V (DIAL) CURRENT KRU Urea nitrogen [Mass/volume] in Serum or Plasma PATIENT AGE DIALYZER FLOW-QD WEIGHT - POST DAY 1 BSA EL WEIGHT (KG) PRESCRIBED DAYS/WEEK HEIGHT IN INCHES KT/V PRESCRIBED Residual kt/v VM (KT/V MEAN VOL) Total Kt/V BLOOD FLOW-QWB spKt/V DIALYZER FLOW-QD Urea nitrogen [Mass/volume] in Serum or Plasma CURRENT KRU VT (KT/V TX VOL) Std Renal KT/V eKt/V TBW (Martinez) Dialyzer ROSARIO spKt/V HEIGHT IN INCHES BSA EL PRESCRIBED DAYS/WEEK VM (KT/V MEAN VOL) KT/V PRESCRIBED stdKt/V (DIAL) TOTAL HOURS/WEEK DIALYSIS nPCR PATIENT AGE AMPUTATE FACTOR BLOOD FLOW-QWB WEIGHT - PRE DAY 1 Total Kt/V LENGTH OF DIALYSIS Residual kt/v stdKT/V Total WEIGHT (KG) URR% WEIGHT - POST DAY 1 Urea nitrogen [Mass/volume] in Serum or Plasma URR% LENGTH OF DIALYSIS Dialyzer ROSARIO DIALYZER FLOW-QD PATIENT AGE WEIGHT - POST DAY 1 WEIGHT - PRE DAY 1 HEIGHT IN INCHES BSA EL WEIGHT (KG) PRESCRIBED DAYS/WEEK VT (KT/V TX VOL) VM (KT/V MEAN VOL) Residual kt/v Total Kt/V KT/V PRESCRIBED nPCR AMPUTATE FACTOR TBW (Martinez) eKt/V stdKt/V (DIAL) spKt/V stdKT/V Total Std Renal KT/V TOTAL HOURS/WEEK DIALYSIS BLOOD FLOW-QWB CURRENT KRU Urea nitrogen [Mass/volume] in Serum or Plasma URR% DIALYZER FLOW-QD Dialyzer ROSARIO LENGTH OF DIALYSIS PATIENT AGE BSA EL WEIGHT - POST DAY 1 WEIGHT - PRE DAY 1 HEIGHT IN INCHES WEIGHT (KG) PRESCRIBED DAYS/WEEK VT (KT/V TX VOL) VM (KT/V MEAN VOL) Residual kt/v KT/V PRESCRIBED Total Kt/V nPCR AMPUTATE FACTOR TBW (Martinez) spKt/V eKt/V stdKt/V (DIAL) Std Renal KT/V stdKT/V Total TOTAL HOURS/WEEK DIALYSIS BLOOD FLOW-QWB CURRENT KRU BLOOD FLOW-QWB TBW (Martinez) AMPUTATE FACTOR stdKt/V (DIAL) nPCR URR% BSA EL eKt/V VM (KT/V MEAN VOL) Dialyzer ROSARIO Urea nitrogen [Mass/volume] in Serum or Plasma CURRENT KRU WEIGHT (KG) WEIGHT - POST DAY 1 TOTAL HOURS/WEEK DIALYSIS VT (KT/V TX VOL) spKt/V Std Renal KT/V PRESCRIBED DAYS/WEEK DIALYZER FLOW-QD WEIGHT - PRE DAY 1 stdKT/V Total Residual kt/v Total Kt/V LENGTH OF DIALYSIS PATIENT AGE HEIGHT IN INCHES KT/V PRESCRIBED Anemia Description Draw Date Result/Unit Status Ref Range Result Comments HCT CALC HGBX3 2024-11-23 23:20:27 33.9 % F 42.0-52.0 HCT CALC HGBX3 2024-11-23 23:20:27 33.9 % F 42.0-52.0 Hemoglobin [Mass/volume] in Blood 2024-11-23 23:19:17 11.3 g/dL F 14.0-18.0 Hemoglobin [Mass/volume] in Blood 2024-11-23 23:19:17 11.3 g/dL F 14.0-18.0 HCT CALC HGBX3 2024-11-10 05:44:29 32.4 % F 42.0-52.0 Erythrocyte distribution width [Ratio] by Automated count 2024-11-10 05:43:32 14 % F 11.0-15.0 Platelets [#/volume] in Blood by Automated count 2024-11-10 05:43:32 269 x 10^3 cells/uL F 140.0-450.0 MCH [Entitic mass] by Automated count 2024-11-10 05:43:32 31.2 pg F 25.9-34.2 Erythrocytes [#/volume] in Blood by Automated count 2024-11-10 05:43:32 3.47 x 10^6 cells/uL F 4.6-6.2 Hemoglobin [Mass/volume] in Blood 2024-11-10 05:43:32 10.8 g/dL F 14.0-18.0 MCV [Entitic volume] by Automated count 2024-11-10 05:43:32 97.1 fL F 80.0-100.0 Hematocrit [Volume Fraction] of Blood by Automated count 2024-11-10 05:43:32 33.7 % F 41.0-53.0 MCHC [Mass/volume] by Automated count 2024-11-10 05:43:32 32.1 g/dL F 29.6-35.3 HCT CALC HGBX3 2024-10-28 18:23:27 34.2 % F 42.0-52.0 HCT CALC HGBX3 2024-10-28 18:23:27 34.2 % F 42.0-52.0 HCT CALC HGBX3 2024-10-28 18:23:27 34.2 % F 42.0-52.0 Hemoglobin [Mass/volume] in Blood 2024-10-28 18:22:53 F RECOLLECT - OUTDATED SPECIMEN Hemoglobin [Mass/volume] in Blood 2024-10-28 18:22:53 F RECOLLECT - OUTDATED SPECIMEN Hemoglobin [Mass/volume] in Blood 2024-10-28 18:22:53 F RECOLLECT - OUTDATED SPECIMEN HCT CALC HGBX3 2024-10-13 18:20:57 F RECOLLECT - OUTDATED SPECIMEN,Unable to Calculate. HCT CALC HGBX3 2024-10-13 18:20:57 F RECOLLECT - OUTDATED SPECIMEN,Unable to Calculate. HCT CALC HGBX3 2024-10-13 18:20:57 F RECOLLECT - OUTDATED SPECIMEN,Unable to Calculate. Erythrocyte distribution width [Ratio] by Automated count 2024-10-13 18:20:38 F RECOLLECT - OUTDATED SPECIMEN Erythrocytes [#/volume] in Blood by Automated count 2024-10-13 18:20:38 F RECOLLECT - OUTDATED SPECIMEN Hematocrit [Volume Fraction] of Blood by Automated count 2024-10-13 18:20:38 F RECOLLECT - OUTDATED SPECIMEN MCV [Entitic volume] by Automated count 2024-10-13 18:20:38 F RECOLLECT - OUTDATED SPECIMEN MCH [Entitic mass] by Automated count 2024-10-13 18:20:38 F RECOLLECT - OUTDATED SPECIMEN Hemoglobin [Mass/volume] in Blood 2024-10-13 18:20:38 F RECOLLECT - OUTDATED SPECIMEN MCHC [Mass/volume] by Automated count 2024-10-13 18:20:38 F RECOLLECT - OUTDATED SPECIMEN Platelets [#/volume] in Blood by Automated count 2024-10-13 18:20:38 F RECOLLECT - OUTDATED SPECIMEN Platelets [#/volume] in Blood by Automated count 2024-10-13 18:20:38 F RECOLLECT - OUTDATED SPECIMEN MCH [Entitic mass] by Automated count 2024-10-13 18:20:38 F RECOLLECT - OUTDATED SPECIMEN MCV [Entitic volume] by Automated count 2024-10-13 18:20:38 F RECOLLECT - OUTDATED SPECIMEN Hemoglobin [Mass/volume] in Blood 2024-10-13 18:20:38 F RECOLLECT - OUTDATED SPECIMEN Erythrocyte distribution width [Ratio] by Automated count 2024-10-13 18:20:38 F RECOLLECT - OUTDATED SPECIMEN Hematocrit [Volume Fraction] of Blood by Automated count 2024-10-13 18:20:38 F RECOLLECT - OUTDATED SPECIMEN Erythrocytes [#/volume] in Blood by Automated count 2024-10-13 18:20:38 F RECOLLECT - OUTDATED SPECIMEN MCHC [Mass/volume] by Automated count 2024-10-13 18:20:38 F RECOLLECT - OUTDATED SPECIMEN Hematocrit [Volume Fraction] of Blood by Automated count 2024-10-13 18:20:38 F RECOLLECT - OUTDATED SPECIMEN Erythrocytes [#/volume] in Blood by Automated count 2024-10-13 18:20:38 F RECOLLECT - OUTDATED SPECIMEN Hemoglobin [Mass/volume] in Blood 2024-10-13 18:20:38 F RECOLLECT - OUTDATED SPECIMEN MCH [Entitic mass] by Automated count 2024-10-13 18:20:38 F RECOLLECT - OUTDATED SPECIMEN Erythrocyte distribution width [Ratio] by Automated count 2024-10-13 18:20:38 F RECOLLECT - OUTDATED SPECIMEN Platelets [#/volume] in Blood by Automated count 2024-10-13 18:20:38 F RECOLLECT - OUTDATED SPECIMEN MCV [Entitic volume] by Automated count 2024-10-13 18:20:38 F RECOLLECT - OUTDATED SPECIMEN MCHC [Mass/volume] by Automated count 2024-10-13 18:20:38 F RECOLLECT - OUTDATED SPECIMEN HCT CALC HGBX3 2024-09-21 20:23:14 33.6 % F 42.0-52.0 HCT CALC HGBX3 2024-09-21 20:23:14 33.6 % F 42.0-52.0 Hemoglobin [Mass/volume] in Blood 2024-09-21 20:22:17 11.2 g/dL F 14.0-18.0 Hemoglobin [Mass/volume] in Blood 2024-09-21 20:22:17 11.2 g/dL F 14.0-18.0 Ferritin [Mass/volume] in Serum or Plasma 2024-09-15 08:16:40 471 ng/mL F 22.0-322.0 Ferritin [Mass/volume] in Serum or Plasma 2024-09-15 08:16:40 471 ng/mL F 22.0-322.0 Ferritin [Mass/volume] in Serum or Plasma 2024-09-15 08:16:40 471 ng/mL F 22.0-322.0 Ferritin [Mass/volume] in Serum or Plasma 2024-09-15 08:16:40 471 ng/mL F 22.0-322.0 IRON SATURATION 2024-09-15 08:10:58 21 % F 21.0-49.0 TIBC 2024-09-15 08:10:58 230 ug/dL F 250.0-425.0 IRON SATURATION 2024-09-15 08:10:58 21 % F 21.0-49.0 TIBC 2024-09-15 08:10:58 230 ug/dL F 250.0-425.0 IRON SATURATION 2024-09-15 08:10:58 21 % F 21.0-49.0 TIBC 2024-09-15 08:10:58 230 ug/dL F 250.0-425.0 TIBC 2024-09-15 08:10:58 230 ug/dL F 250.0-425.0 IRON SATURATION 2024-09-15 08:10:58 21 % F 21.0-49.0 Iron [Mass/volume] in Serum or Plasma 2024-09-15 08:06:06 48 ug/dL F 65.0-175.0 Iron binding capacity.unsaturated [Mass/volume] in Serum or Plasma 2024-09-15 08:06:06 182 ug/dL F 75.0-360.0 Iron [Mass/volume] in Serum or Plasma 2024-09-15 08:06:06 48 ug/dL F 65.0-175.0 Iron binding capacity.unsaturated [Mass/volume] in Serum or Plasma 2024-09-15 08:06:06 182 ug/dL F 75.0-360.0 Iron binding capacity.unsaturated [Mass/volume] in Serum or Plasma 2024-09-15 08:06:06 182 ug/dL F 75.0-360.0 Iron [Mass/volume] in Serum or Plasma 2024-09-15 08:06:06 48 ug/dL F 65.0-175.0 Iron binding capacity.unsaturated [Mass/volume] in Serum or Plasma 2024-09-15 08:06:06 182 ug/dL F 75.0-360.0 Iron [Mass/volume] in Serum or Plasma 2024-09-15 08:06:06 48 ug/dL F 65.0-175.0 HCT CALC HGBX3 2024-09-15 04:04:34 32.7 % F 42.0-52.0 HCT CALC HGBX3 2024-09-15 04:04:34 32.7 % F 42.0-52.0 HCT CALC HGBX3 2024-09-15 04:04:34 32.7 % F 42.0-52.0 HCT CALC HGBX3 2024-09-15 04:04:34 32.7 % F 42.0-52.0 Erythrocyte distribution width [Ratio] by Automated count 2024-09-15 04:03:23 14.1 % F 11.0-15.0 Erythrocytes [#/volume] in Blood by Automated count 2024-09-15 04:03:23 3.53 x 10'6 cells/uL F 4.6-6.2 Hematocrit [Volume Fraction] of Blood by Automated count 2024-09-15 04:03:23 34.8 % F 41.0-53.0 Hemoglobin [Mass/volume] in Blood 2024-09-15 04:03:23 10.9 g/dL F 14.0-18.0 MCH [Entitic mass] by Automated count 2024-09-15 04:03:23 30.8 pg F 25.9-34.2 MCV [Entitic volume] by Automated count 2024-09-15 04:03:23 98.4 fL F 80.0-100.0 MCHC [Mass/volume] by Automated count 2024-09-15 04:03:23 31.3 g/dL F 29.6-35.3 Platelets [#/volume] in Blood by Automated count 2024-09-15 04:03:23 249 x 10^3 cells/uL F 140.0-450.0 Erythrocytes [#/volume] in Blood by Automated count 2024-09-15 04:03:23 3.53 x 10'6 cells/uL F 4.6-6.2 Erythrocyte distribution width [Ratio] by Automated count 2024-09-15 04:03:23 14.1 % F 11.0-15.0 Hemoglobin [Mass/volume] in Blood 2024-09-15 04:03:23 10.9 g/dL F 14.0-18.0 MCH [Entitic mass] by Automated count 2024-09-15 04:03:23 30.8 pg F 25.9-34.2 MCHC [Mass/volume] by Automated count 2024-09-15 04:03:23 31.3 g/dL F 29.6-35.3 Hematocrit [Volume Fraction] of Blood by Automated count 2024-09-15 04:03:23 34.8 % F 41.0-53.0 MCV [Entitic volume] by Automated count 2024-09-15 04:03:23 98.4 fL F 80.0-100.0 Platelets [#/volume] in Blood by Automated count 2024-09-15 04:03:23 249 x 10^3 cells/uL F 140.0-450.0 Erythrocytes [#/volume] in Blood by Automated count 2024-09-15 04:03:23 3.53 x 10'6 cells/uL F 4.6-6.2 Hemoglobin [Mass/volume] in Blood 2024-09-15 04:03:23 10.9 g/dL F 14.0-18.0 Erythrocyte distribution width [Ratio] by Automated count 2024-09-15 04:03:23 14.1 % F 11.0-15.0 MCHC [Mass/volume] by Automated count 2024-09-15 04:03:23 31.3 g/dL F 29.6-35.3 MCH [Entitic mass] by Automated count 2024-09-15 04:03:23 30.8 pg F 25.9-34.2 Hematocrit [Volume Fraction] of Blood by Automated count 2024-09-15 04:03:23 34.8 % F 41.0-53.0 MCV [Entitic volume] by Automated count 2024-09-15 04:03:23 98.4 fL F 80.0-100.0 Platelets [#/volume] in Blood by Automated count 2024-09-15 04:03:23 249 x 10^3 cells/uL F 140.0-450.0 Erythrocyte distribution width [Ratio] by Automated count 2024-09-15 04:03:23 14.1 % F 11.0-15.0 Platelets [#/volume] in Blood by Automated count 2024-09-15 04:03:23 249 x 10^3 cells/uL F 140.0-450.0 MCHC [Mass/volume] by Automated count 2024-09-15 04:03:23 31.3 g/dL F 29.6-35.3 MCH [Entitic mass] by Automated count 2024-09-15 04:03:23 30.8 pg F 25.9-34.2 Hematocrit [Volume Fraction] of Blood by Automated count 2024-09-15 04:03:23 34.8 % F 41.0-53.0 MCV [Entitic volume] by Automated count 2024-09-15 04:03:23 98.4 fL F 80.0-100.0 Hemoglobin [Mass/volume] in Blood 2024-09-15 04:03:23 10.9 g/dL F 14.0-18.0 Erythrocytes [#/volume] in Blood by Automated count 2024-09-15 04:03:23 3.53 x 10'6 cells/uL F 4.6-6.2 IRON SATURATION 2024-09-01 07:23:38 F Recollect - Unspun specimen TIBC 2024-09-01 07:23:38 F Recollect - Unspun specimen Ferritin [Mass/volume] in Serum or Plasma 2024-09-01 07:15:12 406 ng/mL F 22.0-322.0 HCT CALC HGBX3 2024-08-31 21:23:52 33 % F 42.0-52.0 Hematocrit [Volume Fraction] of Blood by Automated count 2024-08-31 21:22:22 34.1 % F 41.0-53.0 MCV [Entitic volume] by Automated count 2024-08-31 21:22:22 98.4 fL F 80.0-100.0 MCH [Entitic mass] by Automated count 2024-08-31 21:22:22 31.8 pg F 25.9-34.2 MCHC [Mass/volume] by Automated count 2024-08-31 21:22:22 32.3 g/dL F 29.6-35.3 Erythrocytes [#/volume] in Blood by Automated count 2024-08-31 21:22:20 3.46 x 10'6 cells/uL F 4.6-6.2 Erythrocyte distribution width [Ratio] by Automated count 2024-08-31 21:22:20 13.7 % F 11.0-15.0 Hemoglobin [Mass/volume] in Blood 2024-08-31 21:22:20 11 g/dL F 14.0-18.0 Platelets [#/volume] in Blood by Automated count 2024-08-31 21:22:20 268 x 10^3 cells/uL F 140.0-450.0 Iron [Mass/volume] in Serum or Plasma 2024-08-31 18:41:05 F Recollect - Unspun specimen Iron binding capacity.unsaturated [Mass/volume] in Serum or Plasma 2024-08-31 18:41:05 F Recollect - Unspun specimen HCT CALC HGBX3 2024-08-24 23:55:52 31.8 % F 42.0-52.0 HCT CALC HGBX3 2024-08-24 23:55:52 31.8 % F 42.0-52.0 HCT CALC HGBX3 2024-08-24 23:55:52 31.8 % F 42.0-52.0 HCT CALC HGBX3 2024-08-24 23:55:52 31.8 % F 42.0-52.0 Hemoglobin [Mass/volume] in Blood 2024-08-24 23:53:17 10.6 g/dL F 14.0-18.0 Hemoglobin [Mass/volume] in Blood 2024-08-24 23:53:17 10.6 g/dL F 14.0-18.0 Hemoglobin [Mass/volume] in Blood 2024-08-24 23:53:17 10.6 g/dL F 14.0-18.0 Hemoglobin [Mass/volume] in Blood 2024-08-24 23:53:17 10.6 g/dL F 14.0-18.0 HCT CALC HGBX3 2024-08-10 14:09:57 31.8 % F 42.0-52.0 HCT CALC HGBX3 2024-08-10 14:09:57 31.8 % F 42.0-52.0 Erythrocyte distribution width [Ratio] by Automated count 2024-08-10 14:09:17 14.6 % F 11.0-15.0 Erythrocytes [#/volume] in Blood by Automated count 2024-08-10 14:09:17 3.24 x 10'6 cells/uL F 4.6-6.2 Hemoglobin [Mass/volume] in Blood 2024-08-10 14:09:17 10.6 g/dL F 14.0-18.0 MCV [Entitic volume] by Automated count 2024-08-10 14:09:17 99.2 fL F 80.0-100.0 MCH [Entitic mass] by Automated count 2024-08-10 14:09:17 32.7 pg F 25.9-34.2 MCHC [Mass/volume] by Automated count 2024-08-10 14:09:17 33 g/dL F 29.6-35.3 Hematocrit [Volume Fraction] of Blood by Automated count 2024-08-10 14:09:17 32.2 % F 41.0-53.0 Platelets [#/volume] in Blood by Automated count 2024-08-10 14:09:17 239 x 10^3 cells/uL F 140.0-450.0 Erythrocyte distribution width [Ratio] by Automated count 2024-08-10 14:09:17 14.6 % F 11.0-15.0 Hematocrit [Volume Fraction] of Blood by Automated count 2024-08-10 14:09:17 32.2 % F 41.0-53.0 Erythrocytes [#/volume] in Blood by Automated count 2024-08-10 14:09:17 3.24 x 10'6 cells/uL F 4.6-6.2 Hemoglobin [Mass/volume] in Blood 2024-08-10 14:09:17 10.6 g/dL F 14.0-18.0 MCH [Entitic mass] by Automated count 2024-08-10 14:09:17 32.7 pg F 25.9-34.2 Platelets [#/volume] in Blood by Automated count 2024-08-10 14:09:17 239 x 10^3 cells/uL F 140.0-450.0 MCV [Entitic volume] by Automated count 2024-08-10 14:09:17 99.2 fL F 80.0-100.0 MCHC [Mass/volume] by Automated count 2024-08-10 14:09:17 33 g/dL F 29.6-35.3 HCT CALC HGBX3 2024-07-29 04:02:48 32.1 % F 42.0-52.0 HCT CALC HGBX3 2024-07-29 04:02:48 32.1 % F 42.0-52.0 Hemoglobin [Mass/volume] in Blood 2024-07-29 04:02:16 10.7 g/dL F 14.0-18.0 Hemoglobin [Mass/volume] in Blood 2024-07-29 04:02:16 10.7 g/dL F 14.0-18.0 HCT CALC HGBX3 2024-04-02 17:43:35 34.8 % F 42.0-52.0 HCT CALC HGBX3 2024-04-02 17:43:35 34.8 % F 42.0-52.0 HCT CALC HGBX3 2024-04-02 17:43:35 34.8 % F 42.0-52.0 Erythrocytes [#/volume] in Blood by Automated count 2024-04-02 17:43:31 3.76 x 10'6 cells/uL F 4.6-6.2 Erythrocyte distribution width [Ratio] by Automated count 2024-04-02 17:43:31 14.2 % F 11.0-15.0 Hemoglobin [Mass/volume] in Blood 2024-04-02 17:43:31 11.6 g/dL F 14.0-18.0 MCHC [Mass/volume] by Automated count 2024-04-02 17:43:31 32.8 g/dL F 29.6-35.3 MCH [Entitic mass] by Automated count 2024-04-02 17:43:31 30.9 pg F 25.9-34.2 Hematocrit [Volume Fraction] of Blood by Automated count 2024-04-02 17:43:31 35.3 % F 41.0-53.0 MCV [Entitic volume] by Automated count 2024-04-02 17:43:31 94.1 fL F 80.0-100.0 Platelets [#/volume] in Blood by Automated count 2024-04-02 17:43:31 282 x 10^3 cells/uL F 140.0-450.0 Erythrocytes [#/volume] in Blood by Automated count 2024-04-02 17:43:31 3.76 x 10'6 cells/uL F 4.6-6.2 Erythrocyte distribution width [Ratio] by Automated count 2024-04-02 17:43:31 14.2 % F 11.0-15.0 Hemoglobin [Mass/volume] in Blood 2024-04-02 17:43:31 11.6 g/dL F 14.0-18.0 MCH [Entitic mass] by Automated count 2024-04-02 17:43:31 30.9 pg F 25.9-34.2 MCHC [Mass/volume] by Automated count 2024-04-02 17:43:31 32.8 g/dL F 29.6-35.3 Hematocrit [Volume Fraction] of Blood by Automated count 2024-04-02 17:43:31 35.3 % F 41.0-53.0 MCV [Entitic volume] by Automated count 2024-04-02 17:43:31 94.1 fL F 80.0-100.0 Platelets [#/volume] in Blood by Automated count 2024-04-02 17:43:31 282 x 10^3 cells/uL F 140.0-450.0 Erythrocyte distribution width [Ratio] by Automated count 2024-04-02 17:43:31 14.2 % F 11.0-15.0 Erythrocytes [#/volume] in Blood by Automated count 2024-04-02 17:43:31 3.76 x 10'6 cells/uL F 4.6-6.2 Hematocrit [Volume Fraction] of Blood by Automated count 2024-04-02 17:43:31 35.3 % F 41.0-53.0 Hemoglobin [Mass/volume] in Blood 2024-04-02 17:43:31 11.6 g/dL F 14.0-18.0 MCV [Entitic volume] by Automated count 2024-04-02 17:43:31 94.1 fL F 80.0-100.0 MCH [Entitic mass] by Automated count 2024-04-02 17:43:31 30.9 pg F 25.9-34.2 MCHC [Mass/volume] by Automated count 2024-04-02 17:43:31 32.8 g/dL F 29.6-35.3 Platelets [#/volume] in Blood by Automated count 2024-04-02 17:43:31 282 x 10^3 cells/uL F 140.0-450.0 IRON SATURATION 2024-02-16 17:30:28 25 % F 21.0-49.0 TIBC 2024-02-16 17:30:28 237 ug/dL F 250.0-425.0 IRON SATURATION 2024-02-16 17:30:28 25 % F 21.0-49.0 TIBC 2024-02-16 17:30:28 237 ug/dL F 250.0-425.0 IRON SATURATION 2024-02-16 17:30:28 25 % F 21.0-49.0 TIBC 2024-02-16 17:30:28 237 ug/dL F 250.0-425.0 IRON SATURATION 2024-02-16 17:30:28 25 % F 21.0-49.0 TIBC 2024-02-16 17:30:28 237 ug/dL F 250.0-425.0 Iron binding capacity.unsaturated [Mass/volume] in Serum or Plasma 2024-02-16 17:28:12 178 ug/dL F 75.0-360.0 Iron [Mass/volume] in Serum or Plasma 2024-02-16 17:28:12 59 ug/dL F 65.0-175.0 Iron [Mass/volume] in Serum or Plasma 2024-02-16 17:28:12 59 ug/dL F 65.0-175.0 Iron binding capacity.unsaturated [Mass/volume] in Serum or Plasma 2024-02-16 17:28:12 178 ug/dL F 75.0-360.0 Iron [Mass/volume] in Serum or Plasma 2024-02-16 17:28:12 59 ug/dL F 65.0-175.0 Iron binding capacity.unsaturated [Mass/volume] in Serum or Plasma 2024-02-16 17:28:12 178 ug/dL F 75.0-360.0 Iron [Mass/volume] in Serum or Plasma 2024-02-16 17:28:12 59 ug/dL F 65.0-175.0 Iron binding capacity.unsaturated [Mass/volume] in Serum or Plasma 2024-02-16 17:28:12 178 ug/dL F 75.0-360.0 HCT CALC HGBX3 2024-02-16 16:22:09 30.3 % F 42.0-52.0 HCT CALC HGBX3 2024-02-16 16:22:09 30.3 % F 42.0-52.0 HCT CALC HGBX3 2024-02-16 16:22:09 30.3 % F 42.0-52.0 HCT CALC HGBX3 2024-02-16 16:22:09 30.3 % F 42.0-52.0 Hematocrit [Volume Fraction] of Blood by Automated count 2024-02-16 16:21:29 30.5 % F 41.0-53.0 Hemoglobin [Mass/volume] in Blood 2024-02-16 16:21:29 10.1 g/dL F 14.0-18.0 Erythrocyte distribution width [Ratio] by Automated count 2024-02-16 16:21:29 14.4 % F 11.0-15.0 Erythrocytes [#/volume] in Blood by Automated count 2024-02-16 16:21:29 3.2 x 10'6 cells/uL F 4.6-6.2 MCV [Entitic volume] by Automated count 2024-02-16 16:21:29 95.4 fL F 80.0-100.0 MCH [Entitic mass] by Automated count 2024-02-16 16:21:29 31.6 pg F 25.9-34.2 MCHC [Mass/volume] by Automated count 2024-02-16 16:21:29 33.1 g/dL F 29.6-35.3 Platelets [#/volume] in Blood by Automated count 2024-02-16 16:21:29 220 x 10^3 cells/uL F 140.0-450.0 Reticulocytes/100 erythrocytes in Blood by Automated count 2024-02-16 16:21:29 4.55 % F 0.7-2.5 Erythrocyte distribution width [Ratio] by Automated count 2024-02-16 16:21:29 14.4 % F 11.0-15.0 Erythrocytes [#/volume] in Blood by Automated count 2024-02-16 16:21:29 3.2 x 10'6 cells/uL F 4.6-6.2 Hematocrit [Volume Fraction] of Blood by Automated count 2024-02-16 16:21:29 30.5 % F 41.0-53.0 MCH [Entitic mass] by Automated count 2024-02-16 16:21:29 31.6 pg F 25.9-34.2 Hemoglobin [Mass/volume] in Blood 2024-02-16 16:21:29 10.1 g/dL F 14.0-18.0 MCHC [Mass/volume] by Automated count 2024-02-16 16:21:29 33.1 g/dL F 29.6-35.3 Platelets [#/volume] in Blood by Automated count 2024-02-16 16:21:29 220 x 10^3 cells/uL F 140.0-450.0 MCV [Entitic volume] by Automated count 2024-02-16 16:21:29 95.4 fL F 80.0-100.0 Reticulocytes/100 erythrocytes in Blood by Automated count 2024-02-16 16:21:29 4.55 % F 0.7-2.5 Erythrocyte distribution width [Ratio] by Automated count 2024-02-16 16:21:29 14.4 % F 11.0-15.0 Erythrocytes [#/volume] in Blood by Automated count 2024-02-16 16:21:29 3.2 x 10'6 cells/uL F 4.6-6.2 MCV [Entitic volume] by Automated count 2024-02-16 16:21:29 95.4 fL F 80.0-100.0 Hemoglobin [Mass/volume] in Blood 2024-02-16 16:21:29 10.1 g/dL F 14.0-18.0 Hematocrit [Volume Fraction] of Blood by Automated count 2024-02-16 16:21:29 30.5 % F 41.0-53.0 MCH [Entitic mass] by Automated count 2024-02-16 16:21:29 31.6 pg F 25.9-34.2 MCHC [Mass/volume] by Automated count 2024-02-16 16:21:29 33.1 g/dL F 29.6-35.3 Platelets [#/volume] in Blood by Automated count 2024-02-16 16:21:29 220 x 10^3 cells/uL F 140.0-450.0 Reticulocytes/100 erythrocytes in Blood by Automated count 2024-02-16 16:21:29 4.55 % F 0.7-2.5 Reticulocytes/100 erythrocytes in Blood by Automated count 2024-02-16 16:21:29 4.55 % F 0.7-2.5 Erythrocytes [#/volume] in Blood by Automated count 2024-02-16 16:21:29 3.2 x 10'6 cells/uL F 4.6-6.2 Erythrocyte distribution width [Ratio] by Automated count 2024-02-16 16:21:29 14.4 % F 11.0-15.0 Hemoglobin [Mass/volume] in Blood 2024-02-16 16:21:29 10.1 g/dL F 14.0-18.0 MCH [Entitic mass] by Automated count 2024-02-16 16:21:29 31.6 pg F 25.9-34.2 Hematocrit [Volume Fraction] of Blood by Automated count 2024-02-16 16:21:29 30.5 % F 41.0-53.0 MCHC [Mass/volume] by Automated count 2024-02-16 16:21:29 33.1 g/dL F 29.6-35.3 MCV [Entitic volume] by Automated count 2024-02-16 16:21:29 95.4 fL F 80.0-100.0 Platelets [#/volume] in Blood by Automated count 2024-02-16 16:21:29 220 x 10^3 cells/uL F 140.0-450.0 FluidBP Description Draw Date Result/Unit Status Ref Range Result Comments Sodium [Moles/volume] in Serum or Plasma 2024-11-10 18:18:51 139 mEq/L F 132.0-146.0 Sodium [Moles/volume] in Serum or Plasma 2024-10-13 19:41:34 F RECOLLECT - OUTDATED SPECIMEN Sodium [Moles/volume] in Serum or Plasma 2024-10-13 19:41:34 F RECOLLECT - OUTDATED SPECIMEN Sodium [Moles/volume] in Serum or Plasma 2024-10-13 19:41:34 F RECOLLECT - OUTDATED SPECIMEN Sodium [Moles/volume] in Serum or Plasma 2024-09-15 08:06:06 138 mEq/L F 132.0-146.0 Sodium [Moles/volume] in Serum or Plasma 2024-09-15 08:06:06 138 mEq/L F 132.0-146.0 Sodium [Moles/volume] in Serum or Plasma 2024-09-15 08:06:06 138 mEq/L F 132.0-146.0 Sodium [Moles/volume] in Serum or Plasma 2024-09-15 08:06:06 138 mEq/L F 132.0-146.0 Sodium [Moles/volume] in Serum or Plasma 2024-08-31 18:41:05 F Recollect - Unsp un specimen Sodium [Moles/volume] in Serum or Plasma 2024-08-10 17:52:27 138 mEq/L F 132.0-146.0 Sodium [Moles/volume] in Serum or Plasma 2024-08-10 17:52:27 138 mEq/L F 132.0-146.0 Sodium [Moles/volume] in Serum or Plasma 2024-04-03 01:33:01 139 mEq/L F 132.0-146.0 Sodium [Moles/volume] in Serum or Plasma 2024-04-03 01:33:01 139 mEq/L F 132.0-146.0 Sodium [Moles/volume] in Serum or Plasma 2024-04-03 01:33:01 139 mEq/L F 132.0-146.0 Sodium [Moles/volume] in Serum or Plasma 2024-02-16 17:28:12 141 mEq/L F 132.0-146.0 Sodium [Moles/volume] in Serum or Plasma 2024-02-16 17:28:12 141 mEq/L F 132.0-146.0 Sodium [Moles/volume] in Serum or Plasma 2024-02-16 17:28:12 141 mEq/L F 132.0-146.0 Sodium [Moles/volume] in Serum or Plasma 2024-02-16 17:28:12 141 mEq/L F 132.0-146.0 General Description Draw Date Result/Unit Status Ref Range Result Comments Chloride [Moles/volume] in Serum or Plasma 2024-11-10 18:18:51 102 mEq/L F 99.0-109.0 Alanine aminotransferase [Enzymatic activity/volume] in Serum or Plasma 2024-11-10 14:21:17 21 U/L F 10.0-49.0 Aspartate aminotransferase [Enzymatic activity/volume] in Serum or Plasma 2024-11-10 14:21:17 14 U/L F 0.0-33.0 Chloride [Moles/volume] in Serum or Plasma 2024-10-13 19:41:34 F RECOLLECT - OUTDATED SPECIMEN Chloride [Moles/volume] in Serum or Plasma 2024-10-13 19:41:34 F RECOLLECT - OUTDATED SPECIMEN Chloride [Moles/volume] in Serum or Plasma 2024-10-13 19:41:34 F RECOLLECT - OUTDATED SPECIMEN Alanine aminotransferase [Enzymatic activity/volume] in Serum or Plasma 2024-10-13 16:50:54 F RECOLLECT - OUTDATED SPECIMEN Aspartate aminotransferase [Enzymatic activity/volume] in Serum or Plasma 2024-10-13 16:50:54 F RECOLLECT - OUTDATED SPECIMEN Alanine aminotransferase [Enzymatic activity/volume] in Serum or Plasma 2024-10-13 16:50:54 F RECOLLECT - OUTDATED SPECIMEN Aspartate aminotransferase [Enzymatic activity/volume] in Serum or Plasma 2024-10-13 16:50:54 F RECOLLECT - OUTDATED SPECIMEN Alanine aminotransferase [Enzymatic activity/volume] in Serum or Plasma 2024-10-13 16:50:54 F RECOLLECT - OUTDATED SPECIMEN Aspartate aminotransferase [Enzymatic activity/volume] in Serum or Plasma 2024-10-13 16:50:54 F RECOLLECT - OUTDATED SPECIMEN Chloride [Moles/volume] in Serum or Plasma 2024-09-15 08:06:06 104 mEq/L F 99.0-109.0 Chloride [Moles/volume] in Serum or Plasma 2024-09-15 08:06:06 104 mEq/L F 99.0-109.0 Chloride [Moles/volume] in Serum or Plasma 2024-09-15 08:06:06 104 mEq/L F 99.0-109.0 Chloride [Moles/volume] in Serum or Plasma 2024-09-15 08:06:06 104 mEq/L F 99.0-109.0 Alanine aminotransferase [Enzymatic activity/volume] in Serum or Plasma 2024-09-15 05:22:22 26 U/L F 10.0-49.0 Aspartate aminotransferase [Enzymatic activity/volume] in Serum or Plasma 2024-09-15 05:22:22 18 U/L F 0.0-33.0 Aspartate aminotransferase [Enzymatic activity/volume] in Serum or Plasma 2024-09-15 05:22:22 18 U/L F 0.0-33.0 Alanine aminotransferase [Enzymatic activity/volume] in Serum or Plasma 2024-09-15 05:22:22 26 U/L F 10.0-49.0 Aspartate aminotransferase [Enzymatic activity/volume] in Serum or Plasma 2024-09-15 05:22:22 18 U/L F 0.0-33.0 Alanine aminotransferase [Enzymatic activity/volume] in Serum or Plasma 2024-09-15 05:22:22 26 U/L F 10.0-49.0 Aspartate aminotransferase [Enzymatic activity/volume] in Serum or Plasma 2024-09-15 05:22:22 18 U/L F 0.0-33.0 Alanine aminotransferase [Enzymatic activity/volume] in Serum or Plasma 2024-09-15 05:22:22 26 U/L F 10.0-49.0 Chloride [Moles/volume] in Serum or Plasma 2024-08-31 18:41:05 F Recollect - Unspun specimen Alanine aminotransferase [Enzymatic activity/volume] in Serum or Plasma 2024-08-31 18:41:05 F Recollect - Unspun specimen Aspartate aminotransferase [Enzymatic activity/volume] in Serum or Plasma 2024-08-31 18:41:05 F Recollect - Unspun specimen Aluminum [Mass/volume] in Serum or Plasma 2024-08-31 16:54:09 10 ug/L F 0.0-9.0 Chloride [Moles/volume] in Serum or Plasma 2024-08-10 17:52:27 107 mEq/L F 99.0-109.0 Chloride [Moles/volume] in Serum or Plasma 2024-08-10 17:52:27 107 mEq/L F 99.0-109.0 Alanine aminotransferase [Enzymatic activity/volume] in Serum or Plasma 2024-08-10 13:13:24 38 U/L F 10.0-49.0 Aspartate aminotransferase [Enzymatic activity/volume] in Serum or Plasma 2024-08-10 13:13:24 18 U/L F 0.0-33.0 Alanine aminotransferase [Enzymatic activity/volume] in Serum or Plasma 2024-08-10 13:13:24 38 U/L F 10.0-49.0 Aspartate aminotransferase [Enzymatic activity/volume] in Serum or Plasma 2024-08-10 13:13:24 18 U/L F 0.0-33.0 Chloride [Moles/volume] in Serum or Plasma 2024-04-03 01:33:01 106 mEq/L F 99.0-109.0 Chloride [Moles/volume] in Serum or Plasma 2024-04-03 01:33:01 106 mEq/L F 99.0-109.0 Chloride [Moles/volume] in Serum or Plasma 2024-04-03 01:33:01 106 mEq/L F 99.0-109.0 Aspartate aminotransferase [Enzymatic activity/volume] in Serum or Plasma 2024-04-02 14:44:28 16 U/L F 0.0-33.0 Alanine aminotransferase [Enzymatic activity/volume] in Serum or Plasma 2024-04-02 14:44:28 28 U/L F 10.0-49.0 Aspartate aminotransferase [Enzymatic activity/volume] in Serum or Plasma 2024-04-02 14:44:28 16 U/L F 0.0-33.0 Alanine aminotransferase [Enzymatic activity/volume] in Serum or Plasma 2024-04-02 14:44:28 28 U/L F 10.0-49.0 Alanine aminotransferase [Enzymatic activity/volume] in Serum or Plasma 2024-04-02 14:44:28 28 U/L F 10.0-49.0 Aspartate aminotransferase [Enzymatic activity/volume] in Serum or Plasma 2024-04-02 14:44:28 16 U/L F 0.0-33.0 Aluminum [Mass/volume] in Serum or Plasma 2024-02-16 17:58:32 10 ug/L F 0.0-9.0 Aluminum [Mass/volume] in Serum or Plasma 2024-02-16 17:58:32 10 ug/L F 0.0-9.0 Aluminum [Mass/volume] in Serum or Plasma 2024-02-16 17:58:32 10 ug/L F 0.0-9.0 Aluminum [Mass/volume] in Serum or Plasma 2024-02-16 17:58:32 10 ug/L F 0.0-9.0 Chloride [Moles/volume] in Serum or Plasma 2024-02-16 17:28:12 103 mEq/L F 99.0-109.0 Chloride [Moles/volume] in Serum or Plasma 2024-02-16 17:28:12 103 mEq/L F 99.0-109.0 Chloride [Moles/volume] in Serum or Plasma 2024-02-16 17:28:12 103 mEq/L F 99.0-109.0 Chloride [Moles/volume] in Serum or Plasma 2024-02-16 17:28:12 103 mEq/L F 99.0-109.0 Aspartate aminotransferase [Enzymatic activity/volume] in Serum or Plasma 2024-02-16 15:31:35 24 U/L F 0.0-33.0 Aspartate aminotransferase [Enzymatic activity/volume] in Serum or Plasma 2024-02-16 15:31:35 24 U/L F 0.0-33.0 Aspartate aminotransferase [Enzymatic activity/volume] in Serum or Plasma 2024-02-16 15:31:35 24 U/L F 0.0-33.0 Aspartate aminotransferase [Enzymatic activity/volume] in Serum or Plasma 2024-02-16 15:31:35 24 U/L F 0.0-33.0 InfectionVaccination Description Draw Date Result/Unit Status Ref Range Result Comments Eosinophils/100 leukocytes in Blood by Automated count 2024-11-10 05:43:32 3.4 % F Monocytes/100 leukocytes in Blood by Automated count 2024-11-10 05:43:32 4 % F Lymphocytes [#/volume] in Blood by Automated count 2024-11-10 05:43:32 1218 Cells/uL F 620.0-3660.0 Neutrophils/100 leukocytes in Blood by Automated count 2024-11-10 05:43:32 73.5 % F Eosinophils [#/volume] in Blood by Automated count 2024-11-10 05:43:32 220 Cells/uL F 0.0-700.0 Basophils [#/volume] in Blood by Automated count 2024-11-10 05:43:32 13 Cells/uL F 0.0-400.0 Monocytes [#/volume] in Blood by Automated count 2024-11-10 05:43:32 259 Cells/uL F 0.0-1100.0 Leukocytes [#/volume] in Blood by Automated count 2024-11-10 05:43:32 6.5 x 10^3 cells/uL F 4.0-11.0 Basophils/100 leukocytes in Blood by Automated count 2024-11-10 05:43:32 0.2 % F Lymphocytes/100 leukocytes in Blood by Automated count 2024-11-10 05:43:32 18.8 % F Neutrophils [#/volume] in Blood by Automated count 2024-11-10 05:43:32 4763 Cells/uL F 2000.0-8800. 0 Neutrophils/100 leukocytes in Blood by Automated count 2024-10-13 18:20:38 F RECOLLECT - OUTDATED SPECIMEN Basophils/100 leukocytes in Blood by Automated count 2024-10-13 18:20:38 F RECOLLECT - OUTDATED SPECIMEN Lymphocytes/100 leukocytes in Blood by Automated count 2024-10-13 18:20:38 F RECOLLECT - OUTDATED SPECIMEN Monocytes/100 leukocytes in Blood by Automated count 2024-10-13 18:20:38 F RECOLLECT - OUTDATED SPECIMEN Eosinophils/100 leukocytes in Blood by Automated count 2024-10-13 18:20:38 F RECOLLECT - OUTDATED SPECIMEN Leukocytes [#/volume] in Blood by Automated count 2024-10-13 18:20:38 F RECOLLECT - OUTDATED SPECIMEN Neutrophils [#/volume] in Blood by Automated count 2024-10-13 18:20:38 F RECOLLECT - OUTDATED SPECIMEN Lymphocytes [#/volume] in Blood by Automated count 2024-10-13 18:20:38 F RECOLLECT - OUTDATED SPECIMEN Monocytes [#/volume] in Blood by Automated count 2024-10-13 18:20:38 F RECOLLECT - OUTDATED SPECIMEN Basophils [#/volume] in Blood by Automated count 2024-10-13 18:20:38 F RECOLLECT - OUTDATED SPECIMEN Eosinophils [#/volume] in Blood by Automated count 2024-10-13 18:20:38 F RECOLLECT - OUTDATED SPECIMEN Monocytes [#/volume] in Blood by Automated count 2024-10-13 18:20:38 F RECOLLECT - OUTDATED SPECIMEN Lymphocytes [#/volume] in Blood by Automated count 2024-10-13 18:20:38 F RECOLLECT - OUTDATED SPECIMEN Lymphocytes/100 leukocytes in Blood by Automated count 2024-10-13 18:20:38 F RECOLLECT - OUTDATED SPECIMEN Eosinophils [#/volume] in Blood by Automated count 2024-10-13 18:20:38 F RECOLLECT - OUTDATED SPECIMEN Basophils [#/volume] in Blood by Automated count 2024-10-13 18:20:38 F RECOLLECT - OUTDATED SPECIMEN Eosinophils/100 leukocytes in Blood by Automated count 2024-10-13 18:20:38 F RECOLLECT - OUTDATED SPECIMEN Neutrophils [#/volume] in Blood by Automated count 2024-10-13 18:20:38 F RECOLLECT - OUTDATED SPECIMEN Basophils/100 leukocytes in Blood by Automated count 2024-10-13 18:20:38 F RECOLLECT - OUTDATED SPECIMEN Leukocytes [#/volume] in Blood by Automated count 2024-10-13 18:20:38 F RECOLLECT - OUTDATED SPECIMEN Neutrophils/100 leukocytes in Blood by Automated count 2024-10-13 18:20:38 F RECOLLECT - OUTDATED SPECIMEN Monocytes/100 leukocytes in Blood by Automated count 2024-10-13 18:20:38 F RECOLLECT - OUTDATED SPECIMEN Neutrophils/100 leukocytes in Blood by Automated count 2024-10-13 18:20:38 F RECOLLECT - OUTDATED SPECIMEN Eosinophils [#/volume] in Blood by Automated count 2024-10-13 18:20:38 F RECOLLECT - OUTDATED SPECIMEN Leukocytes [#/volume] in Blood by Automated count 2024-10-13 18:20:38 F RECOLLECT - OUTDATED SPECIMEN Neutrophils [#/volume] in Blood by Automated count 2024-10-13 18:20:38 F RECOLLECT - OUTDATED SPECIMEN Lymphocytes/100 leukocytes in Blood by Automated count 2024-10-13 18:20:38 F RECOLLECT - OUTDATED SPECIMEN Monocytes [#/volume] in Blood by Automated count 2024-10-13 18:20:38 F RECOLLECT - OUTDATED SPECIMEN Lymphocytes [#/volume] in Blood by Automated count 2024-10-13 18:20:38 F RECOLLECT - OUTDATED SPECIMEN Eosinophils/100 leukocytes in Blood by Automated count 2024-10-13 18:20:38 F RECOLLECT - OUTDATED SPECIMEN Basophils [#/volume] in Blood by Automated count 2024-10-13 18:20:38 F RECOLLECT - OUTDATED SPECIMEN Basophils/100 leukocytes in Blood by Automated count 2024-10-13 18:20:38 F RECOLLECT - OUTDATED SPECIMEN Monocytes/100 leukocytes in Blood by Automated count 2024-10-13 18:20:38 F RECOLLECT - OUTDATED SPECIMEN Basophils/100 leukocytes in Blood by Automated count 2024-09-15 04:03:23 0.6 % F Neutrophils/100 leukocytes in Blood by Automated count 2024-09-15 04:03:23 71.1 % F Lymphocytes/100 leukocytes in Blood by Automated count 2024-09-15 04:03:23 17.4 % F Eosinophils/100 leukocytes in Blood by Automated count 2024-09-15 04:03:23 6.5 % F Leukocytes [#/volume] in Blood by Automated count 2024-09-15 04:03:23 7.8 x 10^3 cells/uL F 4.0-11.0 Monocytes/100 leukocytes in Blood by Automated count 2024-09-15 04:03:23 4.4 % F Neutrophils [#/volume] in Blood by Automated count 2024-09-15 04:03:23 5524 Cells/uL F 2000.0-8800. 0 Lymphocytes [#/volume] in Blood by Automated count 2024-09-15 04:03:23 1352 Cells/uL F 620.0-3660.0 Basophils [#/volume] in Blood by Automated count 2024-09-15 04:03:23 47 Cells/uL F 0.0-400.0 Monocytes [#/volume] in Blood by Automated count 2024-09-15 04:03:23 342 Cells/uL F 0.0-1100.0 Eosinophils [#/volume] in Blood by Automated count 2024-09-15 04:03:23 505 Cells/uL F 0.0-700.0 Basophils/100 leukocytes in Blood by Automated count 2024-09-15 04:03:23 0.6 % F Neutrophils/100 leukocytes in Blood by Automated count 2024-09-15 04:03:23 71.1 % F Eosinophils/100 leukocytes in Blood by Automated count 2024-09-15 04:03:23 6.5 % F Monocytes/100 leukocytes in Blood by Automated count 2024-09-15 04:03:23 4.4 % F Lymphocytes/100 leukocytes in Blood by Automated count 2024-09-15 04:03:23 17.4 % F Leukocytes [#/volume] in Blood by Automated count 2024-09-15 04:03:23 7.8 x 10^3 cells/uL F 4.0-11.0 Basophils [#/volume] in Blood by Automated count 2024-09-15 04:03:23 47 Cells/uL F 0.0-400.0 Eosinophils [#/volume] in Blood by Automated count 2024-09-15 04:03:23 505 Cells/uL F 0.0-700.0 Monocytes [#/volume] in Blood by Automated count 2024-09-15 04:03:23 342 Cells/uL F 0.0-1100.0 Lymphocytes [#/volume] in Blood by Automated count 2024-09-15 04:03:23 1352 Cells/uL F 620.0-3660.0 Neutrophils [#/volume] in Blood by Automated count 2024-09-15 04:03:23 5524 Cells/uL F 2000.0-8800. 0 Monocytes/100 leukocytes in Blood by Automated count 2024-09-15 04:03:23 4.4 % F Eosinophils/100 leukocytes in Blood by Automated count 2024-09-15 04:03:23 6.5 % F Basophils/100 leukocytes in Blood by Automated count 2024-09-15 04:03:23 0.6 % F Neutrophils/100 leukocytes in Blood by Automated count 2024-09-15 04:03:23 71.1 % F Lymphocytes/100 leukocytes in Blood by Automated count 2024-09-15 04:03:23 17.4 % F Leukocytes [#/volume] in Blood by Automated count 2024-09-15 04:03:23 7.8 x 10^3 cells/uL F 4.0-11.0 Basophils [#/volume] in Blood by Automated count 2024-09-15 04:03:23 47 Cells/uL F 0.0-400.0 Eosinophils [#/volume] in Blood by Automated count 2024-09-15 04:03:23 505 Cells/uL F 0.0-700.0 Monocytes [#/volume] in Blood by Automated count 2024-09-15 04:03:23 342 Cells/uL F 0.0-1100.0 Lymphocytes [#/volume] in Blood by Automated count 2024-09-15 04:03:23 1352 Cells/uL F 620.0-3660.0 Neutrophils [#/volume] in Blood by Automated count 2024-09-15 04:03:23 5524 Cells/uL F 2000.0-8800. 0 Lymphocytes/100 leukocytes in Blood by Automated count 2024-09-15 04:03:23 17.4 % F Eosinophils/100 leukocytes in Blood by Automated count 2024-09-15 04:03:23 6.5 % F Eosinophils [#/volume] in Blood by Automated count 2024-09-15 04:03:23 505 Cells/uL F 0.0-700.0 Neutrophils [#/volume] in Blood by Automated count 2024-09-15 04:03:23 5524 Cells/uL F 2000.0-8800. 0 Leukocytes [#/volume] in Blood by Automated count 2024-09-15 04:03:23 7.8 x 10^3 cells/uL F 4.0-11.0 Basophils/100 leukocytes in Blood by Automated count 2024-09-15 04:03:23 0.6 % F Neutrophils/100 leukocytes in Blood by Automated count 2024-09-15 04:03:23 71.1 % F Monocytes/100 leukocytes in Blood by Automated count 2024-09-15 04:03:23 4.4 % F Monocytes [#/volume] in Blood by Automated count 2024-09-15 04:03:23 342 Cells/uL F 0.0-1100.0 Basophils [#/volume] in Blood by Automated count 2024-09-15 04:03:23 47 Cells/uL F 0.0-400.0 Lymphocytes [#/volume] in Blood by Automated count 2024-09-15 04:03:23 1352 Cells/uL F 620.0-3660.0 Basophils/100 leukocytes in Blood by Automated count 2024-08-31 21:22:20 1 % F Neutrophils/100 leukocytes in Blood by Automated count 2024-08-31 21:22:20 60.4 % F Lymphocytes/100 leukocytes in Blood by Automated count 2024-08-31 21:22:20 26.9 % F Monocytes/100 leukocytes in Blood by Automated count 2024-08-31 21:22:20 5.9 % F Eosinophils/100 leukocytes in Blood by Automated count 2024-08-31 21:22:20 5.9 % F Leukocytes [#/volume] in Blood by Automated count 2024-08-31 21:22:20 6.1 x 10^3 cells/uL F 4.0-11.0 Neutrophils [#/volume] in Blood by Automated count 2024-08-31 21:22:20 3672 Cells/uL F 2000.0-8800. 0 Monocytes [#/volume] in Blood by Automated count 2024-08-31 21:22:20 359 Cells/uL F 0.0-1100.0 Basophils [#/volume] in Blood by Automated count 2024-08-31 21:22:20 61 Cells/uL F 0.0-400.0 Lymphocytes [#/volume] in Blood by Automated count 2024-08-31 21:22:20 1636 Cells/uL F 620.0-3660.0 Eosinophils [#/volume] in Blood by Automated count 2024-08-31 21:22:20 359 Cells/uL F 0.0-700.0 Neutrophils/100 leukocytes in Blood by Automated count 2024-08-10 14:09:17 63.4 % F Monocytes/100 leukocytes in Blood by Automated count 2024-08-10 14:09:17 5.2 % F Basophils/100 leukocytes in Blood by Automated count 2024-08-10 14:09:17 0.3 % F Lymphocytes/100 leukocytes in Blood by Automated count 2024-08-10 14:09:17 25.3 % F Eosinophils/100 leukocytes in Blood by Automated count 2024-08-10 14:09:17 5.7 % F Leukocytes [#/volume] in Blood by Automated count 2024-08-10 14:09:17 7.2 x 10^3 cells/uL F 4.0-11.0 Neutrophils [#/volume] in Blood by Automated count 2024-08-10 14:09:17 4558 Cells/uL F 2000.0-8800. 0 Monocytes [#/volume] in Blood by Automated count 2024-08-10 14:09:17 374 Cells/uL F 0.0-1100.0 Lymphocytes [#/volume] in Blood by Automated count 2024-08-10 14:09:17 1819 Cells/uL F 620.0-3660.0 Eosinophils [#/volume] in Blood by Automated count 2024-08-10 14:09:17 410 Cells/uL F 0.0-700.0 Basophils [#/volume] in Blood by Automated count 2024-08-10 14:09:17 22 Cells/uL F 0.0-400.0 Basophils/100 leukocytes in Blood by Automated count 2024-08-10 14:09:17 0.3 % F Neutrophils/100 leukocytes in Blood by Automated count 2024-08-10 14:09:17 63.4 % F Lymphocytes/100 leukocytes in Blood by Automated count 2024-08-10 14:09:17 25.3 % F Monocytes/100 leukocytes in Blood by Automated count 2024-08-10 14:09:17 5.2 % F Eosinophils/100 leukocytes in Blood by Automated count 2024-08-10 14:09:17 5.7 % F Leukocytes [#/volume] in Blood by Automated count 2024-08-10 14:09:17 7.2 x 10^3 cells/uL F 4.0-11.0 Neutrophils [#/volume] in Blood by Automated count 2024-08-10 14:09:17 4558 Cells/uL F 2000.0-8800. 0 Lymphocytes [#/volume] in Blood by Automated count 2024-08-10 14:09:17 1819 Cells/uL F 620.0-3660.0 Monocytes [#/volume] in Blood by Automated count 2024-08-10 14:09:17 374 Cells/uL F 0.0-1100.0 Basophils [#/volume] in Blood by Automated count 2024-08-10 14:09:17 22 Cells/uL F 0.0-400.0 Eosinophils [#/volume] in Blood by Automated count 2024-08-10 14:09:17 410 Cells/uL F 0.0-700.0 Neutrophils [#/volume] in Blood by Automated count 2024-04-02 17:43:31 6041 Cell/uL F 2000.0-8800. 0 Lymphocytes [#/volume] in Blood by Automated count 2024-04-02 17:43:31 1644 Cell/uL F 620.0-3660.0 Monocytes [#/volume] in Blood by Automated count 2024-04-02 17:43:31 435 Cell/uL F 0.0-1100.0 Basophils [#/volume] in Blood by Automated count 2024-04-02 17:43:31 26 Cell/uL F 0.0-400.0 Eosinophils [#/volume] in Blood by Automated count 2024-04-02 17:43:31 383 Cell/uL F 0.0-700.0 Monocytes/100 leukocytes in Blood by Automated count 2024-04-02 17:43:31 5.1 % F Eosinophils/100 leukocytes in Blood by Automated count 2024-04-02 17:43:31 4.5 % F Neutrophils/100 leukocytes in Blood by Automated count 2024-04-02 17:43:31 70.9 % F Basophils/100 leukocytes in Blood by Automated count 2024-04-02 17:43:31 0.3 % F Lymphocytes/100 leukocytes in Blood by Automated count 2024-04-02 17:43:31 19.3 % F Leukocytes [#/volume] in Blood by Automated count 2024-04-02 17:43:31 8.5 x 10^3 cells/uL F 4.0-11.0 Basophils [#/volume] in Blood by Automated count 2024-04-02 17:43:31 26 Cell/uL F 0.0-400.0 Eosinophils [#/volume] in Blood by Automated count 2024-04-02 17:43:31 383 Cell/uL F 0.0-700.0 Monocytes [#/volume] in Blood by Automated count 2024-04-02 17:43:31 435 Cell/uL F 0.0-1100.0 Neutrophils [#/volume] in Blood by Automated count 2024-04-02 17:43:31 6041 Cell/uL F 2000.0-8800. 0 Lymphocytes [#/volume] in Blood by Automated count 2024-04-02 17:43:31 1644 Cell/uL F 620.0-3660.0 Basophils/100 leukocytes in Blood by Automated count 2024-04-02 17:43:31 0.3 % F Neutrophils/100 leukocytes in Blood by Automated count 2024-04-02 17:43:31 70.9 % F Monocytes/100 leukocytes in Blood by Automated count 2024-04-02 17:43:31 5.1 % F Eosinophils/100 leukocytes in Blood by Automated count 2024-04-02 17:43:31 4.5 % F Lymphocytes/100 leukocytes in Blood by Automated count 2024-04-02 17:43:31 19.3 % F Leukocytes [#/volume] in Blood by Automated count 2024-04-02 17:43:31 8.5 x 10^3 cells/uL F 4.0-11.0 Basophils [#/volume] in Blood by Automated count 2024-04-02 17:43:31 26 Cell/uL F 0.0-400.0 Eosinophils [#/volume] in Blood by Automated count 2024-04-02 17:43:31 383 Cell/uL F 0.0-700.0 Monocytes [#/volume] in Blood by Automated count 2024-04-02 17:43:31 435 Cell/uL F 0.0-1100.0 Lymphocytes [#/volume] in Blood by Automated count 2024-04-02 17:43:31 1644 Cell/uL F 620.0-3660.0 Neutrophils [#/volume] in Blood by Automated count 2024-04-02 17:43:31 6041 Cell/uL F 2000.0-8800. 0 Basophils/100 leukocytes in Blood by Automated count 2024-04-02 17:43:31 0.3 % F Neutrophils/100 leukocytes in Blood by Automated count 2024-04-02 17:43:31 70.9 % F Lymphocytes/100 leukocytes in Blood by Automated count 2024-04-02 17:43:31 19.3 % F Monocytes/100 leukocytes in Blood by Automated count 2024-04-02 17:43:31 5.1 % F Eosinophils/100 leukocytes in Blood by Automated count 2024-04-02 17:43:31 4.5 % F Leukocytes [#/volume] in Blood by Automated count 2024-04-02 17:43:31 8.5 x 10^3 cells/uL F 4.0-11.0 Basophils/100 leukocytes in Blood by Automated count 2024-02-16 16:21:29 0.2 % F Lymphocytes/100 leukocytes in Blood by Automated count 2024-02-16 16:21:29 27.5 % F Leukocytes [#/volume] in Blood by Automated count 2024-02-16 16:21:29 6.9 x 10^3 cells/uL F 4.0-11.0 Eosinophils/100 leukocytes in Blood by Automated count 2024-02-16 16:21:29 3.4 % F Neutrophils [#/volume] in Blood by Automated count 2024-02-16 16:21:29 4435 Cell/uL F 2000.0-8800. 0 Lymphocytes [#/volume] in Blood by Automated count 2024-02-16 16:21:29 1908 Cell/uL F 620.0-3660.0 Basophils [#/volume] in Blood by Automated count 2024-02-16 16:21:29 14 Cell/uL F 0.0-400.0 Eosinophils [#/volume] in Blood by Automated count 2024-02-16 16:21:29 236 Cell/uL F 0.0-700.0 Neutrophils/100 leukocytes in Blood by Automated count 2024-02-16 16:21:29 63.9 % F Monocytes/100 leukocytes in Blood by Automated count 2024-02-16 16:21:29 4.9 % F Monocytes [#/volume] in Blood by Automated count 2024-02-16 16:21:29 340 Cell/uL F 0.0-1100.0 Basophils/100 leukocytes in Blood by Automated count 2024-02-16 16:21:29 0.2 % F Neutrophils/100 leukocytes in Blood by Automated count 2024-02-16 16:21:29 63.9 % F Lymphocytes/100 leukocytes in Blood by Automated count 2024-02-16 16:21:29 27.5 % F Eosinophils/100 leukocytes in Blood by Automated count 2024-02-16 16:21:29 3.4 % F Monocytes/100 leukocytes in Blood by Automated count 2024-02-16 16:21:29 4.9 % F Leukocytes [#/volume] in Blood by Automated count 2024-02-16 16:21:29 6.9 x 10^3 cells/uL F 4.0-11.0 Neutrophils [#/volume] in Blood by Automated count 2024-02-16 16:21:29 4435 Cell/uL F 2000.0-8800. 0 Lymphocytes [#/volume] in Blood by Automated count 2024-02-16 16:21:29 1908 Cell/uL F 620.0-3660.0 Monocytes [#/volume] in Blood by Automated count 2024-02-16 16:21:29 340 Cell/uL F 0.0-1100.0 Basophils [#/volume] in Blood by Automated count 2024-02-16 16:21:29 14 Cell/uL F 0.0-400.0 Eosinophils [#/volume] in Blood by Automated count 2024-02-16 16:21:29 236 Cell/uL F 0.0-700.0 Neutrophils/100 leukocytes in Blood by Automated count 2024-02-16 16:21:29 63.9 % F Monocytes/100 leukocytes in Blood by Automated count 2024-02-16 16:21:29 4.9 % F Eosinophils/100 leukocytes in Blood by Automated count 2024-02-16 16:21:29 3.4 % F Basophils/100 leukocytes in Blood by Automated count 2024-02-16 16:21:29 0.2 % F Lymphocytes/100 leukocytes in Blood by Automated count 2024-02-16 16:21:29 27.5 % F Leukocytes [#/volume] in Blood by Automated count 2024-02-16 16:21:29 6.9 x 10^3 cells/uL F 4.0-11.0 Neutrophils [#/volume] in Blood by Automated count 2024-02-16 16:21:29 4435 Cell/uL F 2000.0-8800. 0 Lymphocytes [#/volume] in Blood by Automated count 2024-02-16 16:21:29 1908 Cell/uL F 620.0-3660.0 Basophils [#/volume] in Blood by Automated count 2024-02-16 16:21:29 14 Cell/uL F 0.0-400.0 Monocytes [#/volume] in Blood by Automated count 2024-02-16 16:21:29 340 Cell/uL F 0.0-1100.0 Eosinophils [#/volume] in Blood by Automated count 2024-02-16 16:21:29 236 Cell/uL F 0.0-700.0 Eosinophils/100 leukocytes in Blood by Automated count 2024-02-16 16:21:29 3.4 % F Lymphocytes/100 leukocytes in Blood by Automated count 2024-02-16 16:21:29 27.5 % F Monocytes/100 leukocytes in Blood by Automated count 2024-02-16 16:21:29 4.9 % F Neutrophils/100 leukocytes in Blood by Automated count 2024-02-16 16:21:29 63.9 % F Basophils/100 leukocytes in Blood by Automated count 2024-02-16 16:21:29 0.2 % F Leukocytes [#/volume] in Blood by Automated count 2024-02-16 16:21:29 6.9 x 10^3 cells/uL F 4.0-11.0 Eosinophils [#/volume] in Blood by Automated count 2024-02-16 16:21:29 236 Cell/uL F 0.0-700.0 Basophils [#/volume] in Blood by Automated count 2024-02-16 16:21:29 14 Cell/uL F 0.0-400.0 Monocytes [#/volume] in Blood by Automated count 2024-02-16 16:21:29 340 Cell/uL F 0.0-1100.0 Neutrophils [#/volume] in Blood by Automated count 2024-02-16 16:21:29 4435 Cell/uL F 2000.0-8800. 0 Lymphocytes [#/volume] in Blood by Automated count 2024-02-16 16:21:29 1908 Cell/uL F 620.0-3660.0 MineralBone Disorder Description Draw Date Result/Unit Status Ref Range Result Comments CA CORRECTED 2024-11-24 09:28:38 9.4 mg/dL F CA CORRECTED 2024-11-24 09:28:38 9.4 mg/dL F CA/PHOS PRODUCT 2024-11-24 09:26:58 25.4 Calc F 21.0-53.0 CA*PO4 CORRCTD 2024-11-24 09:26:58 25.4 Calc F 21.0-53.0 CA/PHOS PRODUCT 2024-11-24 09:26:58 25.4 Calc F 21.0-53.0 CA*PO4 CORRCTD 2024-11-24 09:26:58 25.4 Calc F 21.0-53.0 Phosphate [Mass/volume] in Serum or Plasma 2024-11-24 07:02:11 2.7 mg/dL F 2.4-5.1 Calcium [Mass/volume] in Serum or Plasma 2024-11-24 07:02:11 9.4 mg/dL F 8.7-10.4 Calcium [Mass/volume] in Serum or Plasma 2024-11-24 07:02:11 9.4 mg/dL F 8.7-10.4 Phosphate [Mass/volume] in Serum or Plasma 2024-11-24 07:02:11 2.7 mg/dL F 2.4-5.1 Parathyrin.intact [Mass/volume] in Serum or Plasma 2024-11-23 14:47:20 588 pg/mL F 18.0-80.0 Parathyrin.intact [Mass/volume] in Serum or Plasma 2024-11-23 14:47:20 588 pg/mL F 18.0-80.0 CA CORRECTED 2024-11-17 08:09:12 9.1 mg/dL F CA CORRECTED 2024-11-17 08:09:12 9.1 mg/dL F CA/PHOS PRODUCT 2024-11-17 08:05:52 30 Calc F 21.0-53.0 CA*PO4 CORRCTD 2024-11-17 08:05:52 30 Calc F 21.0-53.0 CA/PHOS PRODUCT 2024-11-17 08:05:52 30 Calc F 21.0-53.0 CA*PO4 CORRCTD 2024-11-17 08:05:52 30 Calc F 21.0-53.0 Calcium [Mass/volume] in Serum or Plasma 2024-11-17 06:35:07 9.1 mg/dL F 8.7-10.4 Phosphate [Mass/volume] in Serum or Plasma 2024-11-17 06:35:07 3.3 mg/dL F 2.4-5.1 Calcium [Mass/volume] in Serum or Plasma 2024-11-17 06:35:07 9.1 mg/dL F 8.7-10.4 Phosphate [Mass/volume] in Serum or Plasma 2024-11-17 06:35:07 3.3 mg/dL F 2.4-5.1 Parathyrin.intact [Mass/volume] in Serum or Plasma 2024-11-16 17:57:22 648 pg/mL F 18.0-80.0 Parathyrin.intact [Mass/volume] in Serum or Plasma 2024-11-16 17:57:22 648 pg/mL F 18.0-80.0 Alkaline phosphatase [Enzymatic activity/volume] in Serum or Plasma 2024-11-10 14:21:17 132 U/L F 46.0-116.0 CA CORRECTED 2024-10-27 13:01:21 9.5 mg/dL F CA CORRECTED 2024-10-27 13:01:21 9.5 mg/dL F CA CORRECTED 2024-10-27 13:01:21 9.5 mg/dL F CA*PO4 CORRCTD 2024-10-27 12:59:09 45.6 Calc F 21.0-53.0 CA/PHOS PRODUCT 2024-10-27 12:59:09 45.6 Calc F 21.0-53.0 CA/PHOS PRODUCT 2024-10-27 12:59:09 45.6 Calc F 21.0-53.0 CA*PO4 CORRCTD 2024-10-27 12:59:09 45.6 Calc F 21.0-53.0 CA/PHOS PRODUCT 2024-10-27 12:59:09 45.6 Calc F 21.0-53.0 CA*PO4 CORRCTD 2024-10-27 12:59:09 45.6 Calc F 21.0-53.0 Calcium [Mass/volume] in Serum or Plasma 2024-10-27 07:14:42 9.5 mg/dL F 8.7-10.4 Phosphate [Mass/volume] in Serum or Plasma 2024-10-27 07:14:42 4.8 mg/dL F 2.4-5.1 Phosphate [Mass/volume] in Serum or Plasma 2024-10-27 07:14:42 4.8 mg/dL F 2.4-5.1 Calcium [Mass/volume] in Serum or Plasma 2024-10-27 07:14:42 9.5 mg/dL F 8.7-10.4 Calcium [Mass/volume] in Serum or Plasma 2024-10-27 07:14:42 9.5 mg/dL F 8.7-10.4 Phosphate [Mass/volume] in Serum or Plasma 2024-10-27 07:14:42 4.8 mg/dL F 2.4-5.1 Parathyrin.intact [Mass/volume] in Serum or Plasma 2024-10-26 23:34:25 691 pg/mL F 18.0-80.0 Parathyrin.intact [Mass/volume] in Serum or Plasma 2024-10-26 23:34:25 691 pg/mL F 18.0-80.0 Parathyrin.intact [Mass/volume] in Serum or Plasma 2024-10-26 23:34:25 691 pg/mL F 18.0-80.0 Alkaline phosphatase [Enzymatic activity/volume] in Serum or Plasma 2024-10-13 16:50:54 F RECOLLECT - OUTDATED SPECIMEN Alkaline phosphatase [Enzymatic activity/volume] in Serum or Plasma 2024-10-13 16:50:54 F RECOLLECT - OUTDATED SPECIMEN Alkaline phosphatase [Enzymatic activity/volume] in Serum or Plasma 2024-10-13 16:50:54 F RECOLLECT - OUTDATED SPECIMEN CA CORRECTED 2024-09-22 09:59:13 8.9 mg/dL F CA CORRECTED 2024-09-22 09:59:13 8.9 mg/dL F CA/PHOS PRODUCT 2024-09-22 09:57:26 34.7 Calc F 21.0-53.0 CA*PO4 CORRCTD 2024-09-22 09:57:26 34.7 Calc F 21.0-53.0 CA/PHOS PRODUCT 2024-09-22 09:57:26 34.7 Calc F 21.0-53.0 CA*PO4 CORRCTD 2024-09-22 09:57:26 34.7 Calc F 21.0-53.0 Phosphate [Mass/volume] in Serum or Plasma 2024-09-22 08:13:07 3.9 mg/dL F 2.4-5.1 Phosphate [Mass/volume] in Serum or Plasma 2024-09-22 08:13:07 3.9 mg/dL F 2.4-5.1 Calcium [Mass/volume] in Serum or Plasma 2024-09-22 08:07:17 8.9 mg/dL F 8.7-10.4 Calcium [Mass/volume] in Serum or Plasma 2024-09-22 08:07:17 8.9 mg/dL F 8.7-10.4 Parathyrin.intact [Mass/volume] in Serum or Plasma 2024-09-21 21:20:24 497 pg/mL F 18.0-80.0 Parathyrin.intact [Mass/volume] in Serum or Plasma 2024-09-21 21:20:24 497 pg/mL F 18.0-80.0 25-Hydroxyvitamin D3+25-Hydroxyvitamin D2 [Mass/volume] in Serum or Plasma 2024-09-15 08:16:35 29 ng/mL F 25-Hydroxyvitamin D3+25-Hydroxyvitamin D2 [Mass/volume] in Serum or Plasma 2024-09-15 08:16:35 29 ng/mL F 25-Hydroxyvitamin D3+25-Hydroxyvitamin D2 [Mass/volume] in Serum or Plasma 2024-09-15 08:16:35 29 ng/mL F 25-Hydroxyvitamin D3+25-Hydroxyvitamin D2 [Mass/volume] in Serum or Plasma 2024-09-15 08:16:35 29 ng/mL F Alkaline phosphatase [Enzymatic activity/volume] in Serum or Plasma 2024-09-15 05:22:22 112 U/L F 46.0-116.0 Alkaline phosphatase [Enzymatic activity/volume] in Serum or Plasma 2024-09-15 05:22:22 112 U/L F 46.0-116.0 Alkaline phosphatase [Enzymatic activity/volume] in Serum or Plasma 2024-09-15 05:22:22 112 U/L F 46.0-116.0 Alkaline phosphatase [Enzymatic activity/volume] in Serum or Plasma 2024-09-15 05:22:22 112 U/L F 46.0-116.0 Alkaline phosphatase [Enzymatic activity/volume] in Serum or Plasma 2024-08-31 18:41:05 F Recollect - Unsp un specimen 25-Hydroxyvitamin D3+25-Hydroxyvitamin D2 [Mass/volume] in Serum or Plasma 2024-08-31 18:41:05 F Recollect - Unsp un specimen CA CORRECTED 2024-08-25 09:02:46 8.7 mg/dL F CA CORRECTED 2024-08-25 09:02:46 8.7 mg/dL F CA CORRECTED 2024-08-25 09:02:46 8.7 mg/dL F CA CORRECTED 2024-08-25 09:02:46 8.7 mg/dL F CA/PHOS PRODUCT 2024-08-25 09:01:49 37.4 Calc F 21.0-53.0 CA*PO4 CORRCTD 2024-08-25 09:01:49 37.4 Calc F 21.0-53.0 CA/PHOS PRODUCT 2024-08-25 09:01:49 37.4 Calc F 21.0-53.0 CA*PO4 CORRCTD 2024-08-25 09:01:49 37.4 Calc F 21.0-53.0 CA*PO4 CORRCTD 2024-08-25 09:01:49 37.4 Calc F 21.0-53.0 CA/PHOS PRODUCT 2024-08-25 09:01:49 37.4 Calc F 21.0-53.0 CA/PHOS PRODUCT 2024-08-25 09:01:49 37.4 Calc F 21.0-53.0 CA*PO4 CORRCTD 2024-08-25 09:01:49 37.4 Calc F 21.0-53.0 Calcium [Mass/volume] in Serum or Plasma 2024-08-25 07:51:01 8.7 mg/dL F 8.7-10.4 Calcium [Mass/volume] in Serum or Plasma 2024-08-25 07:51:01 8.7 mg/dL F 8.7-10.4 Calcium [Mass/volume] in Serum or Plasma 2024-08-25 07:51:01 8.7 mg/dL F 8.7-10.4 Calcium [Mass/volume] in Serum or Plasma 2024-08-25 07:51:01 8.7 mg/dL F 8.7-10.4 Phosphate [Mass/volume] in Serum or Plasma 2024-08-25 01:58:26 4.3 mg/dL F 2.4-5.1 Phosphate [Mass/volume] in Serum or Plasma 2024-08-25 01:58:26 4.3 mg/dL F 2.4-5.1 Phosphate [Mass/volume] in Serum or Plasma 2024-08-25 01:58:26 4.3 mg/dL F 2.4-5.1 Phosphate [Mass/volume] in Serum or Plasma 2024-08-25 01:58:26 4.3 mg/dL F 2.4-5.1 Parathyrin.intact [Mass/volume] in Serum or Plasma 2024-08-25 00:38:14 672 pg/mL F 18.0-80.0 Parathyrin.intact [Mass/volume] in Serum or Plasma 2024-08-25 00:38:14 672 pg/mL F 18.0-80.0 Parathyrin.intact [Mass/volume] in Serum or Plasma 2024-08-25 00:38:14 672 pg/mL F 18.0-80.0 Parathyrin.intact [Mass/volume] in Serum or Plasma 2024-08-25 00:38:14 672 pg/mL F 18.0-80.0 Alkaline phosphatase [Enzymatic activity/volume] in Serum or Plasma 2024-08-10 13:13:24 93 U/L F 46.0-116.0 Alkaline phosphatase [Enzymatic activity/volume] in Serum or Plasma 2024-08-10 13:13:24 93 U/L F 46.0-116.0 CA CORRECTED 2024-07-30 08:37:35 9.2 mg/dL F CA CORRECTED 2024-07-30 08:37:35 9.2 mg/dL F CA/PHOS PRODUCT 2024-07-30 07:36:31 26.7 Calc F 21.0-53.0 CA*PO4 CORRCTD 2024-07-30 07:36:31 26.7 Calc F 21.0-53.0 CA/PHOS PRODUCT 2024-07-30 07:36:31 26.7 Calc F 21.0-53.0 CA*PO4 CORRCTD 2024-07-30 07:36:31 26.7 Calc F 21.0-53.0 Calcium [Mass/volume] in Serum or Plasma 2024-07-30 07:24:55 9.2 mg/dL F 8.7-10.4 Calcium [Mass/volume] in Serum or Plasma 2024-07-30 07:24:55 9.2 mg/dL F 8.7-10.4 Phosphate [Mass/volume] in Serum or Plasma 2024-07-29 20:34:18 2.9 mg/dL F 2.4-5.1 Phosphate [Mass/volume] in Serum or Plasma 2024-07-29 20:34:18 2.9 mg/dL F 2.4-5.1 Parathyrin.intact [Mass/volume] in Serum or Plasma 2024-07-28 12:48:29 519 pg/mL F 18.0-80.0 Parathyrin.intact [Mass/volume] in Serum or Plasma 2024-07-28 12:48:29 519 pg/mL F 18.0-80.0 Alkaline phosphatase [Enzymatic activity/volume] in Serum or Plasma 2024-04-02 14:44:28 103 U/L F 46.0-116.0 Alkaline phosphatase [Enzymatic activity/volume] in Serum or Plasma 2024-04-02 14:44:28 103 U/L F 46.0-116.0 Alkaline phosphatase [Enzymatic activity/volume] in Serum or Plasma 2024-04-02 14:44:28 103 U/L F 46.0-116.0 Parathyrin.intact [Mass/volume] in Serum or Plasma 2024-02-17 06:53:34 59 pg/mL F 18.0-80.0 Parathyrin.intact [Mass/volume] in Serum or Plasma 2024-02-17 06:53:34 59 pg/mL F 18.0-80.0 Parathyrin.intact [Mass/volume] in Serum or Plasma 2024-02-17 06:53:34 59 pg/mL F 18.0-80.0 Parathyrin.intact [Mass/volume] in Serum or Plasma 2024-02-17 06:53:34 59 pg/mL F 18.0-80.0 25-Hydroxyvitamin D3+25-Hydroxyvitamin D2 [Mass/volume] in Serum or Plasma 2024-02-17 06:53:32 41 ng/mL F 25-Hydroxyvitamin D3+25-Hydroxyvitamin D2 [Mass/volume] in Serum or Plasma 2024-02-17 06:53:32 41 ng/mL F 25-Hydroxyvitamin D3+25-Hydroxyvitamin D2 [Mass/volume] in Serum or Plasma 2024-02-17 06:53:32 41 ng/mL F 25-Hydroxyvitamin D3+25-Hydroxyvitamin D2 [Mass/volume] in Serum or Plasma 2024-02-17 06:53:32 41 ng/mL F CA CORRECTED 2024-02-16 17:35:04 9.9 mg/dL F CA CORRECTED 2024-02-16 17:35:04 9.9 mg/dL F CA CORRECTED 2024-02-16 17:35:04 9.9 mg/dL F CA CORRECTED 2024-02-16 17:35:04 9.9 mg/dL F CA/PHOS PRODUCT 2024-02-16 17:30:28 38.8 Calc F 21.0-53.0 CA*PO4 CORRCTD 2024-02-16 17:30:28 39.6 Calc F 21.0-53.0 CA/PHOS PRODUCT 2024-02-16 17:30:28 38.8 Calc F 21.0-53.0 CA*PO4 CORRCTD 2024-02-16 17:30:28 39.6 Calc F 21.0-53.0 CA/PHOS PRODUCT 2024-02-16 17:30:28 38.8 Calc F 21.0-53.0 CA*PO4 CORRCTD 2024-02-16 17:30:28 39.6 Calc F 21.0-53.0 CA/PHOS PRODUCT 2024-02-16 17:30:28 38.8 Calc F 21.0-53.0 CA*PO4 CORRCTD 2024-02-16 17:30:28 39.6 Calc F 21.0-53.0 Calcium [Mass/volume] in Serum or Plasma 2024-02-16 17:28:12 9.7 mg/dL F 8.7-10.4 Calcium [Mass/volume] in Serum or Plasma 2024-02-16 17:28:12 9.7 mg/dL F 8.7-10.4 Calcium [Mass/volume] in Serum or Plasma 2024-02-16 17:28:12 9.7 mg/dL F 8.7-10.4 Calcium [Mass/volume] in Serum or Plasma 2024-02-16 17:28:12 9.7 mg/dL F 8.7-10.4 Alkaline phosphatase [Enzymatic activity/volume] in Serum or Plasma 2024-02-16 15:31:35 93 U/L F 46.0-116.0 Phosphate [Mass/volume] in Serum or Plasma 2024-02-16 15:31:35 4 mg/dL F 2.4-5.1 Alkaline phosphatase [Enzymatic activity/volume] in Serum or Plasma 2024-02-16 15:31:35 93 U/L F 46.0-116.0 Phosphate [Mass/volume] in Serum or Plasma 2024-02-16 15:31:35 4 mg/dL F 2.4-5.1 Alkaline phosphatase [Enzymatic activity/volume] in Serum or Plasma 2024-02-16 15:31:35 93 U/L F 46.0-116.0 Phosphate [Mass/volume] in Serum or Plasma 2024-02-16 15:31:35 4 mg/dL F 2.4-5.1 Phosphate [Mass/volume] in Serum or Plasma 2024-02-16 15:31:35 4 mg/dL F 2.4-5.1 Alkaline phosphatase [Enzymatic activity/volume] in Serum or Plasma 2024-02-16 15:31:35 93 U/L F 46.0-116.0 Nutrition Description Draw Date Result/Unit Status Ref Range Result Comments Potassium [Moles/volume] in Serum or Plasma 2024-11-10 18:18:51 5.3 mEq/L F 3.5-5.5 A/G RATIO 2024-11-10 14:21:55 1.6 Calc F 1.0-2.5 GLOBULIN 2024-11-10 14:21:55 2.8 g/dL F 0.9-5.0 Albumin [Mass/volume] in Serum or Plasma by Bromocresol green (BCG) dye binding method 2024-11-10 14:21:17 4.4 g/dL F 3.4-4.8 Glucose [Mass/volume] in Serum or Plasma 2024-11-10 14:21:17 31 mg/dL F 70.0-99.0 Protein [Mass/volume] in Serum or Plasma 2024-11-10 14:21:17 7.2 g/dL F 5.7-8.2 Bicarbonate [Moles/volume] in Serum or Plasma 2024-11-10 14:21:17 21 mEq/L F 20.0-31.0 Lactate dehydrogenase [Enzymatic activity/volume] in Serum or Plasma 2024-11-10 14:21:17 199 U/L F 120.0-246.0 A/G RATIO 2024-10-13 19:42:22 F RECOLLECT - OUTDATED SPECIMEN,Unable to Calculate. GLOBULIN 2024-10-13 19:42:22 F RECOLLECT - OUTDATED SPECIMEN,Unable to Calculate. A/G RATIO 2024-10-13 19:42:22 F RECOLLECT - OUTDATED SPECIMEN,Unable to Calculate. GLOBULIN 2024-10-13 19:42:22 F RECOLLECT - OUTDATED SPECIMEN,Unable to Calculate. A/G RATIO 2024-10-13 19:42:22 F RECOLLECT - OUTDATED SPECIMEN,Unable to Calculate. GLOBULIN 2024-10-13 19:42:22 F RECOLLECT - OUTDATED SPECIMEN,Unable to Calculate. Potassium [Moles/volume] in Serum or Plasma 2024-10-13 19:41:34 F RECOLLECT - OUTDATED SPECIMEN Potassium [Moles/volume] in Serum or Plasma 2024-10-13 19:41:34 F RECOLLECT - OUTDATED SPECIMEN Potassium [Moles/volume] in Serum or Plasma 2024-10-13 19:41:34 F RECOLLECT - OUTDATED SPECIMEN Albumin [Mass/volume] in Serum or Plasma by Bromocresol green (BCG) dye binding method 2024-10-13 16:50:54 F RECOLLECT - OUTDATED SPECIMEN Bicarbonate [Moles/volume] in Serum or Plasma 2024-10-13 16:50:54 F RECOLLECT - OUTDATED SPECIMEN Glucose [Mass/volume] in Serum or Plasma 2024-10-13 16:50:54 F RECOLLECT - OUTDATED SPECIMEN Lactate dehydrogenase [Enzymatic activity/volume] in Serum or Plasma 2024-10-13 16:50:54 F RECOLLECT - OUTDATED SPECIMEN Protein [Mass/volume] in Serum or Plasma 2024-10-13 16:50:54 F RECOLLECT - OUTDATED SPECIMEN Albumin [Mass/volume] in Serum or Plasma by Bromocresol green (BCG) dye binding method 2024-10-13 16:50:54 F RECOLLECT - OUTDATED SPECIMEN Glucose [Mass/volume] in Serum or Plasma 2024-10-13 16:50:54 F RECOLLECT - OUTDATED SPECIMEN Lactate dehydrogenase [Enzymatic activity/volume] in Serum or Plasma 2024-10-13 16:50:54 F RECOLLECT - OUTDATED SPECIMEN Bicarbonate [Moles/volume] in Serum or Plasma 2024-10-13 16:50:54 F RECOLLECT - OUTDATED SPECIMEN Protein [Mass/volume] in Serum or Plasma 2024-10-13 16:50:54 F RECOLLECT - OUTDATED SPECIMEN Glucose [Mass/volume] in Serum or Plasma 2024-10-13 16:50:54 F RECOLLECT - OUTDATED SPECIMEN Protein [Mass/volume] in Serum or Plasma 2024-10-13 16:50:54 F RECOLLECT - OUTDATED SPECIMEN Bicarbonate [Moles/volume] in Serum or Plasma 2024-10-13 16:50:54 F RECOLLECT - OUTDATED SPECIMEN Lactate dehydrogenase [Enzymatic activity/volume] in Serum or Plasma 2024-10-13 16:50:54 F RECOLLECT - OUTDATED SPECIMEN Albumin [Mass/volume] in Serum or Plasma by Bromocresol green (BCG) dye binding method 2024-10-13 16:50:54 F RECOLLECT - OUTDATED SPECIMEN Potassium [Moles/volume] in Serum or Plasma 2024-09-15 08:06:06 5.1 mEq/L F 3.5-5.5 Potassium [Moles/volume] in Serum or Plasma 2024-09-15 08:06:06 5.1 mEq/L F 3.5-5.5 Potassium [Moles/volume] in Serum or Plasma 2024-09-15 08:06:06 5.1 mEq/L F 3.5-5.5 Potassium [Moles/volume] in Serum or Plasma 2024-09-15 08:06:06 5.1 mEq/L F 3.5-5.5 A/G RATIO 2024-09-15 05:23:20 1.5 Calc F 1.0-2.5 GLOBULIN 2024-09-15 05:23:20 2.8 g/dL F 0.9-5.0 GLOBULIN 2024-09-15 05:23:20 2.8 g/dL F 0.9-5.0 A/G RATIO 2024-09-15 05:23:20 1.5 Calc F 1.0-2.5 GLOBULIN 2024-09-15 05:23:20 2.8 g/dL F 0.9-5.0 A/G RATIO 2024-09-15 05:23:20 1.5 Calc F 1.0-2.5 GLOBULIN 2024-09-15 05:23:20 2.8 g/dL F 0.9-5.0 A/G RATIO 2024-09-15 05:23:20 1.5 Calc F 1.0-2.5 Albumin [Mass/volume] in Serum or Plasma by Bromocresol green (BCG) dye binding method 2024-09-15 05:22:22 4.2 g/dL F 3.4-4.8 Bicarbonate [Moles/volume] in Serum or Plasma 2024-09-15 05:22:22 22 mEq/L F 20.0-31.0 Lactate dehydrogenase [Enzymatic activity/volume] in Serum or Plasma 2024-09-15 05:22:22 189 U/L F 120.0-246.0 Glucose [Mass/volume] in Serum or Plasma 2024-09-15 05:22:22 127 mg/dL F 70.0-99.0 Protein [Mass/volume] in Serum or Plasma 2024-09-15 05:22:22 7 g/dL F 5.7-8.2 Albumin [Mass/volume] in Serum or Plasma by Bromocresol green (BCG) dye binding method 2024-09-15 05:22:22 4.2 g/dL F 3.4-4.8 Protein [Mass/volume] in Serum or Plasma 2024-09-15 05:22:22 7 g/dL F 5.7-8.2 Bicarbonate [Moles/volume] in Serum or Plasma 2024-09-15 05:22:22 22 mEq/L F 20.0-31.0 Glucose [Mass/volume] in Serum or Plasma 2024-09-15 05:22:22 127 mg/dL F 70.0-99.0 Lactate dehydrogenase [Enzymatic activity/volume] in Serum or Plasma 2024-09-15 05:22:22 189 U/L F 120.0-246.0 Albumin [Mass/volume] in Serum or Plasma by Bromocresol green (BCG) dye binding method 2024-09-15 05:22:22 4.2 g/dL F 3.4-4.8 Protein [Mass/volume] in Serum or Plasma 2024-09-15 05:22:22 7 g/dL F 5.7-8.2 Bicarbonate [Moles/volume] in Serum or Plasma 2024-09-15 05:22:22 22 mEq/L F 20.0-31.0 Glucose [Mass/volume] in Serum or Plasma 2024-09-15 05:22:22 127 mg/dL F 70.0-99.0 Lactate dehydrogenase [Enzymatic activity/volume] in Serum or Plasma 2024-09-15 05:22:22 189 U/L F 120.0-246.0 Lactate dehydrogenase [Enzymatic activity/volume] in Serum or Plasma 2024-09-15 05:22:22 189 U/L F 120.0-246.0 Albumin [Mass/volume] in Serum or Plasma by Bromocresol green (BCG) dye binding method 2024-09-15 05:22:22 4.2 g/dL F 3.4-4.8 Glucose [Mass/volume] in Serum or Plasma 2024-09-15 05:22:22 127 mg/dL F 70.0-99.0 Bicarbonate [Moles/volume] in Serum or Plasma 2024-09-15 05:22:22 22 mEq/L F 20.0-31.0 Protein [Mass/volume] in Serum or Plasma 2024-09-15 05:22:22 7 g/dL F 5.7-8.2 A/G RATIO 2024-09-01 07:23:38 F Recollect - Unsp un specimen GLOBULIN 2024-09-01 07:23:38 F Recollect - Unsp un specimen Albumin [Mass/volume] in Serum or Plasma by Bromocresol green (BCG) dye binding method 2024-08-31 18:41:05 F Recollect - Unsp un specimen Bicarbonate [Moles/volume] in Serum or Plasma 2024-08-31 18:41:05 F Recollect - Unsp un specimen Glucose [Mass/volume] in Serum or Plasma 2024-08-31 18:41:05 F Recollect - Unsp un specimen Potassium [Moles/volume] in Serum or Plasma 2024-08-31 18:41:05 F Recollect - Unsp un specimen Lactate dehydrogenase [Enzymatic activity/volume] in Serum or Plasma 2024-08-31 18:41:05 F Recollect - Unsp un specimen Protein [Mass/volume] in Serum or Plasma 2024-08-31 18:41:05 F Recollect - Unsp un specimen Potassium [Moles/volume] in Serum or Plasma 2024-08-10 17:52:27 4.9 mEq/L F 3.5-5.5 Potassium [Moles/volume] in Serum or Plasma 2024-08-10 17:52:27 4.9 mEq/L F 3.5-5.5 A/G RATIO 2024-08-10 13:13:39 1.6 Calc F 1.0-2.5 GLOBULIN 2024-08-10 13:13:39 2.6 g/dL F 0.9-5.0 A/G RATIO 2024-08-10 13:13:39 1.6 Calc F 1.0-2.5 GLOBULIN 2024-08-10 13:13:39 2.6 g/dL F 0.9-5.0 Lactate dehydrogenase [Enzymatic activity/volume] in Serum or Plasma 2024-08-10 13:13:24 165 U/L F 120.0-246.0 Bicarbonate [Moles/volume] in Serum or Plasma 2024-08-10 13:13:24 22 mEq/L F 20.0-31.0 Albumin [Mass/volume] in Serum or Plasma by Bromocresol green (BCG) dye binding method 2024-08-10 13:13:24 4.1 g/dL F 3.4-4.8 Glucose [Mass/volume] in Serum or Plasma 2024-08-10 13:13:24 131 mg/dL F 70.0-99.0 Lactate dehydrogenase [Enzymatic activity/volume] in Serum or Plasma 2024-08-10 13:13:24 165 U/L F 120.0-246.0 Protein [Mass/volume] in Serum or Plasma 2024-08-10 13:13:24 6.7 g/dL F 5.7-8.2 Protein [Mass/volume] in Serum or Plasma 2024-08-10 13:13:24 6.7 g/dL F 5.7-8.2 Albumin [Mass/volume] in Serum or Plasma by Bromocresol green (BCG) dye binding method 2024-08-10 13:13:24 4.1 g/dL F 3.4-4.8 Bicarbonate [Moles/volume] in Serum or Plasma 2024-08-10 13:13:24 22 mEq/L F 20.0-31.0 Glucose [Mass/volume] in Serum or Plasma 2024-08-10 13:13:24 131 mg/dL F 70.0-99.0 Potassium [Moles/volume] in Serum or Plasma 2024-04-03 01:33:01 5.1 mEq/L F 3.5-5.5 Potassium [Moles/volume] in Serum or Plasma 2024-04-03 01:33:01 5.1 mEq/L F 3.5-5.5 Potassium [Moles/volume] in Serum or Plasma 2024-04-03 01:33:01 5.1 mEq/L F 3.5-5.5 GLOBULIN 2024-04-02 14:44:33 2.8 g/dL F 0.9-5.0 A/G RATIO 2024-04-02 14:44:33 1.6 Calc F 1.0-2.5 GLOBULIN 2024-04-02 14:44:33 2.8 g/dL F 0.9-5.0 A/G RATIO 2024-04-02 14:44:33 1.6 Calc F 1.0-2.5 A/G RATIO 2024-04-02 14:44:33 1.6 Calc F 1.0-2.5 GLOBULIN 2024-04-02 14:44:33 2.8 g/dL F 0.9-5.0 Albumin [Mass/volume] in Serum or Plasma by Bromocresol green (BCG) dye binding method 2024-04-02 14:44:28 4.4 g/dL F 3.4-4.8 Protein [Mass/volume] in Serum or Plasma 2024-04-02 14:44:28 7.2 g/dL F 5.7-8.2 Bicarbonate [Moles/volume] in Serum or Plasma 2024-04-02 14:44:28 22 mEq/L F 20.0-31.0 Glucose [Mass/volume] in Serum or Plasma 2024-04-02 14:44:28 147 mg/dL F 70.0-99.0 Lactate dehydrogenase [Enzymatic activity/volume] in Serum or Plasma 2024-04-02 14:44:28 141 U/L F 120.0-246.0 Albumin [Mass/volume] in Serum or Plasma by Bromocresol green (BCG) dye binding method 2024-04-02 14:44:28 4.4 g/dL F 3.4-4.8 Protein [Mass/volume] in Serum or Plasma 2024-04-02 14:44:28 7.2 g/dL F 5.7-8.2 Bicarbonate [Moles/volume] in Serum or Plasma 2024-04-02 14:44:28 22 mEq/L F 20.0-31.0 Glucose [Mass/volume] in Serum or Plasma 2024-04-02 14:44:28 147 mg/dL F 70.0-99.0 Lactate dehydrogenase [Enzymatic activity/volume] in Serum or Plasma 2024-04-02 14:44:28 141 U/L F 120.0-246.0 Albumin [Mass/volume] in Serum or Plasma by Bromocresol green (BCG) dye binding method 2024-04-02 14:44:28 4.4 g/dL F 3.4-4.8 Bicarbonate [Moles/volume] in Serum or Plasma 2024-04-02 14:44:28 22 mEq/L F 20.0-31.0 Glucose [Mass/volume] in Serum or Plasma 2024-04-02 14:44:28 147 mg/dL F 70.0-99.0 Lactate dehydrogenase [Enzymatic activity/volume] in Serum or Plasma 2024-04-02 14:44:28 141 U/L F 120.0-246.0 Protein [Mass/volume] in Serum or Plasma 2024-04-02 14:44:28 7.2 g/dL F 5.7-8.2 Potassium [Moles/volume] in Serum or Plasma 2024-02-16 17:28:12 3.6 mEq/L F 3.5-5.5 Potassium [Moles/volume] in Serum or Plasma 2024-02-16 17:28:12 3.6 mEq/L F 3.5-5.5 Potassium [Moles/volume] in Serum or Plasma 2024-02-16 17:28:12 3.6 mEq/L F 3.5-5.5 Potassium [Moles/volume] in Serum or Plasma 2024-02-16 17:28:12 3.6 mEq/L F 3.5-5.5 A/G RATIO 2024-02-16 15:32:32 1.5 Calc F 1.0-2.5 GLOBULIN 2024-02-16 15:32:32 2.6 g/dL F 0.9-5.0 A/G RATIO 2024-02-16 15:32:32 1.5 Calc F 1.0-2.5 GLOBULIN 2024-02-16 15:32:32 2.6 g/dL F 0.9-5.0 A/G RATIO 2024-02-16 15:32:32 1.5 Calc F 1.0-2.5 GLOBULIN 2024-02-16 15:32:32 2.6 g/dL F 0.9-5.0 GLOBULIN 2024-02-16 15:32:32 2.6 g/dL F 0.9-5.0 A/G RATIO 2024-02-16 15:32:32 1.5 Calc F 1.0-2.5 Albumin [Mass/volume] in Serum or Plasma by Bromocresol green (BCG) dye binding method 2024-02-16 15:31:35 3.8 g/dL F 3.4-4.8 Bicarbonate [Moles/volume] in Serum or Plasma 2024-02-16 15:31:35 29 mEq/L F 20.0-31.0 Lactate dehydrogenase [Enzymatic activity/volume] in Serum or Plasma 2024-02-16 15:31:35 168 U/L F 120.0-246.0 Glucose [Mass/volume] in Serum or Plasma 2024-02-16 15:31:35 164 mg/dL F 70.0-99.0 Protein [Mass/volume] in Serum or Plasma 2024-02-16 15:31:35 6.4 g/dL F 5.7-8.2 Albumin [Mass/volume] in Serum or Plasma by Bromocresol green (BCG) dye binding method 2024-02-16 15:31:35 3.8 g/dL F 3.4-4.8 Bicarbonate [Moles/volume] in Serum or Plasma 2024-02-16 15:31:35 29 mEq/L F 20.0-31.0 Glucose [Mass/volume] in Serum or Plasma 2024-02-16 15:31:35 164 mg/dL F 70.0-99.0 Lactate dehydrogenase [Enzymatic activity/volume] in Serum or Plasma 2024-02-16 15:31:35 168 U/L F 120.0-246.0 Protein [Mass/volume] in Serum or Plasma 2024-02-16 15:31:35 6.4 g/dL F 5.7-8.2 Albumin [Mass/volume] in Serum or Plasma by Bromocresol green (BCG) dye binding method 2024-02-16 15:31:35 3.8 g/dL F 3.4-4.8 Bicarbonate [Moles/volume] in Serum or Plasma 2024-02-16 15:31:35 29 mEq/L F 20.0-31.0 Glucose [Mass/volume] in Serum or Plasma 2024-02-16 15:31:35 164 mg/dL F 70.0-99.0 Lactate dehydrogenase [Enzymatic activity/volume] in Serum or Plasma 2024-02-16 15:31:35 168 U/L F 120.0-246.0 Protein [Mass/volume] in Serum or Plasma 2024-02-16 15:31:35 6.4 g/dL F 5.7-8.2 Albumin [Mass/volume] in Serum or Plasma by Bromocresol green (BCG) dye binding method 2024-02-16 15:31:35 3.8 g/dL F 3.4-4.8 Protein [Mass/volume] in Serum or Plasma 2024-02-16 15:31:35 6.4 g/dL F 5.7-8.2 Bicarbonate [Moles/volume] in Serum or Plasma 2024-02-16 15:31:35 29 mEq/L F 20.0-31.0 Glucose [Mass/volume] in Serum or Plasma 2024-02-16 15:31:35 164 mg/dL F 70.0-99.0 Lactate dehydrogenase [Enzymatic activity/volume] in Serum or Plasma 2024-02-16 15:31:35 168 U/L F 120.0-246.0 Encounters No encounter information to report Immunizations Ordered Immunization Name Filled Immunization Name Date Status Comments Refusal Reason Influenza, high-dose, quadrivalent, PF 2024-07-16 18:55:00 TST-PPD intradermal 2024-06-02 17:50:00 Pneumococcal conjugate PCV20, polysaccharide [id number] conjugate, adjuvant, PF 2024-04-04 20:19:28 TST-PPD intradermal 2024-03-25 16:27:00 Covid-19 Vaccination 2023-08-31 06:00:00 Influenza Vaccination 2023-08-31 06:00:00 Covid-19 Vaccination 2022-06-30 05:00:00 Influenza Vaccination 2022-06-30 05:00:00 Plan of Treatment Planned Activity Provider Planned Date Details Commen ts Diagnostic Test Pending [facility] 2024-02-16 06:33:17 Alanine aminotransferase [Enzymatic activity/volume] in Serum or Plasma [code = 1742-6] Diagnostic Test Pending [facility] 2024-02-15 16:59:21 Sodium [Moles/volume] in Serum or Plasma [code = 2951-2] Diagnostic Test Pending [facility] 2024-02-15 16:59:27 25-Hydroxyvitamin D3+25-Hydroxyvitamin D2 [Mass/volume] in Serum or Plasma [code = 05430-5] Diagnostic Test Pending [facility] 2024-02-15 16:58:22 Glucose [Mass/volume] in Serum or Plasma [code = 2345-7] Diagnostic Test Pending [facility] 2024-02-15 16:58:00 Albumin [Mass/volume] in Serum or Plasma by Bromocresol green (BCG) dye binding method [code = 84198-6] Diagnostic Test Pending [facility] 2024-02-15 16:58:17 Creatinine [Mass/volume] in Serum or Plasma [code = 2160-0] Diagnostic Test Pending [facility] 2024-02-15 16:58:05 Aluminum [Mass/volume] in Serum or Plasma [code = 5574-9] Diagnostic Test Pending [facility] 2024-05-29 05:00:00 Hemoglobin [Mass/volume] in Blood [code = 718-7] Diagnostic Test Pending [facility] 2024-03-12 05:00:00 Parathyrin.intact [Mass/volume] in Serum or Plasma [code = 2731-8] Diagnostic Test Pending [facility] 2024-05-12 05:00:00 Ferritin [Mass/volume] in Serum or Plasma [code = 2276-4] Diagnostic Test Pending [facility] 2024-11-07 20:42:05 In-Center Hemodialysis Treatment [code = OJE929] Diagnostic Test Pending [facility] 2024-09-26 19:22:41 In-Center Hemodialysis Treatment [code = VJH401] Diet Order Francisco Marilinomar [facility] February 16, 2024 Diet Calorie 30 kcal/kg Fluid Value 1000 mL/d Phosphorus Value 1000 mg/d Potassium Value 2000 mg/d Protein Value 1.2 gm/kg Sodium Value 2000 mg/d Calculated Weight 79 kg dietary_diet_modification Carb Controlle d;
--- OUTSIDE RECORDS SUMMARY | 2024-12-04 22:24 | XMS_ITS | Encounter Summary ---
Author Organization [facility] Address [address] [place] [place] [address] Care Team Providers Care Housekeeper Child Care Name Role Phone Thao Mcqueen Primary Care Provider Unavailab le Encounter Details Date Type Department Care Team (Late st Contact Info) Description 08/26/2024 Telephone [facility] - Centralized Scheduling [address] [place] [phone] Radha Roper MD [address] [address] Social History Tobacco Use Types Packs/Day Years Used Date Smoking Tobacco: Former Cigarettes 975 - 1997 Smokeless Tobacco: Never Alcohol Use Standard Drinks/Week Comments Never 0 (1 standard drink = 0.6 oz pur e alcohol) AUDIT-C Answer Date Recorded Q1: How often do you have a drink containing alc ohol? Never 01/28/2020 Average Number of Drinks Not on file 020 Frequency of Binge Drinking Not on file 01/10 Sex and Gender Information Value Date Recorded Sex Assigned at Not on file Gender Identity Not on file Sexual Orientation Not on file documented as of this encounter Functional Status Functional Status Response Date of [...] person have difficulty concentrating/remembering/making decisions? No 03/02/2024 documented as of this encounter Plan of Treatment Upcoming Encounters Date Type Department Care Team (Late st Contact Info) Description 02/16/2025 1:30 PM CDT Office Visit [facility] - GI [address] [facility] [place] [phone] Ravi Evans III, MD [address] [facility] [address] [place] [phone] 10/16/2025 10:20 AM LEAF STICKER Office Visit [facility] - Cardiology [address] [facility] [place] [address] [place] [phone] Radha Roper MD [address] [facility] DIV OF CARDIOLOGY [address] [place] [address] documented as of this encounter Goals Goal Patient Goal Type Associated Problems Recent Progress Patient-Stated? Author Blood Pressure < 140/90 Blood Pressure 127/55(2024 10:39 AM LEAF STICKER) Antonette Zheng RN documented as of this encounter Visit Diagnoses Not on filedocumented in this encounter Care Teams Housekeeper Child Care Relationship Specialty Start Date End Date Thao Mcqueen Update Information PCP - General 08/22/24 documented as of this encounter
[2024-12-04 22:44] VITALS: BP 80/60; PULSE 55; RESP 24; TEMP 36.3; O2SAT 100
--- NOTE | 2024-12-04 23:37 | ECG_ITS ---
Test Date: 2024-12-04 23:47:59 Measurements Intervals [place] Rate: 43 P: 32 SC: 176 QRS: -35 QRSD: 109 T: 38 QT: 442 QTc: 377 Interpretive Statements SINUS BRADYCARDIA LEFT AXIS DEVIATION INCOMPLETE RIGHT BUNDLE BRANCH BLOCK ABNORMAL ECG Compared to ECG 10/25/2024 11:23:35 HEART RATE HAS DECREASED Electronically Signed On 12-05-2024 06:47:31 GRAPE PRUNER by Jose Roe D.O.
[2024-12-04 23:58] VITALS: BP 106/58; PULSE 43; RESP 15; O2SAT 100
[2024-12-05 00:16] LABS: Basophils Percent Auto 0.2 % (0.2-1.2); Eosinophils Absolute Auto 0.1 K/mm3 (0-0.3); Eosinophils Percent Auto 2.9 % (0-4.4); Hematocrit 33.4 % (42.0-52.0); Hemoglobin 11.1 g/dL (14.0-18.0); Immature Granulocyte Absolute 0.02 K/mm3 (0.00-0.031); Immature Granulocyte Percent A 0.4 % (0-0.5); Lymphocytes Absolute Auto 1.52 K/mm3 (0.9-3.2); Mean Corpuscular HGB Conc 33.2 g/dl (32-36); Mean Corpuscular Hemoglobin 30.6 pg (26-34); Mean Platelet Volume 10.6 fl (7.4-10.4); Monocytes Absolute Auto 0.4 K/mm3 (0.1-0.6); Neutrophils Absolute Auto 2.8 K/mm3 (1.3-6.7); Neutrophils Percent Auto 56.5 % (45.5-73.1); Platelet Count Result 224 k/mm3 (150-375); Red Blood Count 3.63 M/mm3 (4.6-6.20); Red Cell Distribution Width 12.4 % (11.5-14.5); White Blood Count 4.9 K/mm3 (4.5-10.0)
--- OUTSIDE RECORDS SUMMARY | 2024-12-05 00:20 | XMS_ITS | Encounter Summary ---
Author Name [facility] [facility] [place] [facility] [place] [facility] [place] Address [address] [place] [address] Care Team Providers Care Winch Operator Name Role Phone ERIKA DEE Primary Care Provider UnavailBLU Echols Primary Care Provider Unavailab edmond Insurance Providers: All historical and current Section Date Range: From patient's date of to the date document was created. This section includes the names of all active insurance providers for the patient. Insurance Provider Type of Coverage Plan Name Start of Policy Coverage End of Policy Coverage Group Number Member ID Insurance Provider's Telephone Number Policy Heath's Name Patient's Relationship to Policy Heath MEDICARE (WNR) MEDICARE (M) PART A Jul 12, 2019 PART A [id number] PRASANNA KATZ PATIENT MEDICARE (WNR) MEDICARE (M) PART A Jul 12, 2019 PART A [id number] [phone] PRASANNA KATZ PATIENT Selected Encounter This section includes the [place] on [place] at [place] for [place] Encounter. Date/Time Encounter Type Encounter Description Reason Pro vider Source Feb 02, 2024 05:06 PM Outpatient Encounter [facility] CONSULT [facility] Encounter Template Text not used by [facility] Plan of Treatment: Future Appointments (+ 6 months) and Future Tests (+/- 45 days) The Plan of Treatment section includes future care activities for the patient from all [facility] treatment[facility]ilities. This section includes future appointments and future orders which are active, pending or scheduled. Future Appointments This section includes appointments that were scheduled to occur 6 months from the date of the Encounter, up to a maximum of 20 appointments. The data comes from all [place] treatment facilities. Appointment Date/Time Appointment Type Appointme nt Facility Name Feb 04, 2024 12:15 PM AMBULATORY - MEDICINE [facility] Feb 06, 2024 12:30 PM AMBULATORY - MEDICINE [facility] Feb 09, 2024 12:30 PM AMBULATORY - MEDICINE [facility] February 11, 2024 12:30 PM AMBULATORY - MEDICINE [facility] February 13, 2024 12:30 PM AMBULATORY - MEDICINE [facility] February 15, 2024 08:00 AM AMBULATORY - NONE [facility] February 15, 2024 08:30 AM AMBULATORY - MEDICINE [facility] Apr 05, 2024 09:30 AM AMBULATORY - MEDICINE [facility] Apr 27, 2024 07:30 AM AMBULATORY - SURGERY [facility] May 02, 2024 08:00 AM AMBULATORY - NONE [facility] May 02, 2024 08:30 AM AMBULATORY - MEDICINE [facility] May 16, 2024 02:00 PM AMBULATORY - MEDICINE [facility] Jul 12, 2024 08:00 AM AMBULATORY - NONE [facility] Jul 12, 2024 08:30 AM AMBULATORY - MEDICINE [facility] Lab Results: +/- 30 days of the encounter This section includes the Chemistry and Hematology Lab Results on record with [place] for the patient. Radiology Reports and Pathology Reports are provided separately, in subsequent sections. Lab Results This section contains the Chemistry/Hematology Results that were resulted 30 days before or 30 daysafter the date of the Encounter. Date/Time Source Result Type Result - Unit Interpretation Reference Range Comment Feb 09, 2024 12:40 PM [facility] HEP HB S Ag ([place]) (STL) Specimen Type: SERUM No comment entered. Ordering Provider: KYLER PURCELL Report Released Date/Time: Feb 09, 2024 10:43 AM Reporting Lab: [address] [address] Performing Lab: [address] [address] HEP HB S Ag ([place]) (STL) Nonreactive Nonreactive Feb 09, 2024 12:40 PM [facility] HEP B CORE AB TOTAL. (STL) Specimen Type: SERUM No comment entered. Ordering Provider: KYLER PURCELL Report Released Date/Time: Feb 09, 2024 10:43 AM Reporting Lab: [address] [address] Performing Lab: [address] [address] HEP B CORE AB TOTAL. (STL) Nonreactive Nonreactive Feb 09, 2024 12:40 PM [facility] HEPATITIS B SURFACE AB PNL Specimen Type: SERUM No comment entered. Ordering Provider: KYLER PURCELL Report Released Date/Time: Feb 09, 2024 10:43 AM Reporting Lab: [address] [address] Performing Lab: [address] [address] HEP B Surface Ab-HBsAB (L) REACTIVE m[IU]/mL Nonreactive HEP Bs AB-QUANT (L) 79.36 m[IU]/mL Feb 09, 2024 12:40 PM [facility] CBC Specimen Type: BLOOD No comment entered. Ordering Provider: KYLER PURCELL Report Released Date/Time: Feb 04, 2024 03:20 PM Reporting Lab: [address] [address] Performing Lab: [place] [address] [facility] [address] WBC 9.7 10*3/uL 3.6-11.2 RBC 3.09 10*6/uL L 4.10-5.70 HGB 9.4 g/dL L 13.1-16.8 HCT 28.3 L 38.2-48.4 MCV 91.6 fL 80.0-100.0 MCH 30.4 pg 27.0-34.0 MCHC 33.2 g/dL 33.0-36.0 PLT 270 10*3/uL 150-400 MPV 11.5 fL H 7.5-11.2 RDW 13.1 11.8-15.1 LYMPHOCYTES, AUTO % 20 MONOCYTES, AUTO % 6 NEUTROPHILS, AUTO % 71 EOSINOPHILS, AUTO % 2 BASOPHILS, AUTO % 0 LYMPHOCYTES, ABSOLUTE 1.91 10*3/uL 0.77-4.50 MONOCYTES, ABSOLUTE 0.59 10*3/uL 0.19-0.80 NEUTROPHILS, ABSOLUTE 6.90 10*3/uL 2.10-8.00 EOSINOPHILS, ABSOLUTE 0.22 10*3/uL 0.00-0.60 BASOPHILS, ABSOLUTE 0.02 10*3/uL 0.00-0.20 Feb 09, 2024 12:40 PM [facility] RENAL PANEL Specimen Type: PLASMA Comment: No hemolysis noted. Ordering Provider: KYLER PURCELL Report Released Date/Time: Feb 04, 2024 03:20 PM Reporting Lab: [address] [address] Performing Lab: [address] [address] CREATININE 7.69 mg/dL H 0.7-1.3 UREA NITROGEN 52.2 mg/dL H 9.0-25.0 GLUCOSE 147 mg/dL H 72-99 SODIUM 142 meq/L 136-145 POTASSIUM 4.1 meq/L 3.5-5 CHLORIDE 107 meq/L 98-107 CARBON DIOXIDE 22 meq/L 22-31 CALCIUM 10.2 mg/dL 8.4-10.4 PHOSPHOROUS 3.7 mg/dL 2.3-4.7 ALBUMIN 3.7 g/dL 3.4-5 EGFR (CKD-EPI 2020) 7.1 LL >60 Feb 04, 2024 05:00 PM [facility] URR-POST PANEL (STL) Specimen Type: PLASMA No comment entered. Ordering Provider: KLYER PURCELL Report Released Date/Time: Feb 04, 2024 01:42 PM Reporting Lab: [address] [address] Performing Lab: [address] [address] BUN-POST DIALYSIS 16.2 mg/dL 9.0-25.0 URR (STL) 70.4 67.0-100.0 Feb 04, 2024 12:45 PM [facility] RENAL PANEL Specimen Type: PLASMA Comment: No hemolysis noted. Ordering Provider: KYLER PURCELL Report Released Date/Time: Feb 04, 2024 01:42 PM Reporting Lab: [address] [address] Performing Lab: [address] [address] CREATININE 6.97 mg/dL H 0.7-1.3 UREA NITROGEN 54.7 mg/dL H 9.0-25.0 GLUCOSE 134 mg/dL H 72-99 SODIUM 142 meq/L 136-145 POTASSIUM 4.0 meq/L 3.5-5 CHLORIDE 105 meq/L 98-107 CARBON DIOXIDE 24 meq/L 22-31 CALCIUM 9.7 mg/dL 8.4-10.4 PHOSPHOROUS 4.8 mg/dL H 2.3-4.7 ALBUMIN 3.9 g/dL 3.4-5 EGFR (CKD-EPI 2020) 7.9 LL >60 Feb 02, 2024 04:30 PM [facility] URR-POST PANEL (STL) Specimen Type: PLASMA No comment entered. Ordering Provider: KYLER PURCELL Report Released Date/Time: Feb 02, 2024 03:39 PM Reporting Lab: [address] [address] Performing Lab: [address] [address] BUN-POST DIALYSIS 22.9 mg/dL 9.0-25.0 URR (STL) 60.9 L 67.0-100.0 Feb 02, 2024 11:50 AM [facility] RENAL PANEL Specimen Type: PLASMA Comment: No hemolysis noted. Ordering Provider: KYLER PURCELL Report Released Date/Time: Feb 02, 2024 07:35 AM Reporting Lab: [address] [address] Performing Lab: [address] [address] CREATININE 8.34 mg/dL H 0.7-1.3 UREA NITROGEN 58.6 mg/dL H 9.0-25.0 GLUCOSE 169 mg/dL H 72-99 SODIUM 142 meq/L 136-145 POTASSIUM 4.6 meq/L 3.5-5 CHLORIDE 111 meq/L H 98-107 CARBON DIOXIDE 20 meq/L L 22-31 CALCIUM 9.2 mg/dL 8.4-10.4 PHOSPHOROUS 3.6 mg/dL 2.3-4.7 ALBUMIN 3.7 g/dL 3.4-5 EGFR (CKD-EPI 2020) 6.4 LL >60 Feb 01, 2024 11:00 PM [facility] 24H UR CHEM PANEL (STL) Specimen Type: 24-HOUR URINE No comment entered. Ordering Provider: KYLER PURCELL Report Released Date/Time: Jan 28, 2024 04:55 PM Reporting Lab: [address] [address] Performing Lab: [address] [address] VOLUME 3289 mL SODIUM 24-HOUR URINE 226.941 H 40-220 POTASSIUM 24-HOUR URINE 35.8501 25-125 CHLORIDE 24-HOUR URINE 171.028 110-250 PROTEIN 24-HOUR URINE 1986.556 H 0-299.9 CREATININE 24-HOUR URINE 2078.989 278-6148 Jan 28, 2024 05:29 PM [facility] CBC Specimen Type: BLOOD No comment entered. Ordering Provider: KYLER PURCELL Report Released Date/Time: Jan 28, 2024 05:07 PM Reporting Lab: [facility] [address] [facility] [address] Performing Lab: [place] [address] [facility] [address] WBC 8.9 10*3/uL 3.6-11.2 RBC 2.96 10*6/uL L 4.10-5.70 HGB 9.0 g/dL L 13.1-16.8 HCT 26.1 L 38.2-48.4 MCV 88.2 fL 80.0-100.0 MCH 30.4 pg 27.0-34.0 MCHC 34.5 g/dL 33.0-36.0 PLT 290 10*3/uL 150-400 MPV 10.6 fL 7.5-11.2 RDW 12.4 11.8-15.1 LYMPHOCYTES, AUTO % 20 MONOCYTES, AUTO % 10 NEUTROPHILS, AUTO % 66 EOSINOPHILS, AUTO % 4 BASOPHILS, AUTO % 0 LYMPHOCYTES, ABSOLUTE 1.75 10*3/uL 0.77-4.50 MONOCYTES, ABSOLUTE 0.90 10*3/uL H 0.19-0.80 NEUTROPHILS, ABSOLUTE 5.87 10*3/uL 2.10-8.00 EOSINOPHILS, ABSOLUTE 0.33 10*3/uL 0.00-0.60 BASOPHILS, ABSOLUTE 0.04 10*3/uL 0.00-0.20 Jan 26, 2024 01:00 PM [facility] PTH, INTACT (STL) Specimen Type: SERUM No comment entered. Ordering Provider: KYLER PURCELL Report Released Date/Time: Jan 21, 2024 03:14 PM Reporting Lab: [address] [address] Performing Lab: [address] [address] PTH, INTACT (STL) 141.40 pg/mL H 8.7-77.7 Jan 26, 2024 01:00 PM [facility] RENAL PANEL Specimen Type: PLASMA Comment: No hemolysis noted. Ordering Provider: KYLER PURCELL Report Released Date/Time: Jan 21, 2024 03:14 PM Reporting Lab: [facility] [address] [facility] [address] Performing Lab: [facility] [address] [facility] [address] CREATININE 8.25 mg/dL H 0.7-1.3 UREA NITROGEN 63.1 mg/dL H 9.0-25.0 GLUCOSE 157 mg/dL H 72-99 SODIUM 137 meq/L 136-145 POTASSIUM 4.2 meq/L 3.5-5 CHLORIDE 100 meq/L 98-107 CARBON DIOXIDE 26 meq/L 22-31 CALCIUM 9.6 mg/dL 8.4-10.4 PHOSPHOROUS 4.9 mg/dL H 2.3-4.7 ALBUMIN 3.7 g/dL 3.4-5 EGFR (CKD-EPI 2020) 6.5 LL >60 Jan 26, 2024 01:00 PM [facility] FERRITIN Specimen Type: SERUM No comment entered. Ordering Provider: KYLER PURCELL Report Released Date/Time: Jan 21, 2024 03:14 PM Reporting Lab: [facility] [address] [place] [address] Performing Lab: [address] [address] FERRITIN 118.78 ng/mL 22-275 Jan 26, 2024 01:00 PM [facility] IRON/TIBC PROFILE Specimen Type: SERUM No comment entered. Ordering Provider: KYLER PURCELL Report Released Date/Time: Jan 21, 2024 03:14 PM Reporting Lab: [facility] [address] [facility] [address] Performing Lab: [address] [address] TIBC 225 ug/dL L 250-450 TRANSFERRIN 180 mg/dL 163-344 IRON SATURATION 23 20-50 IRON 52 ug/dL L 65-175 Jan 26, 2024 01:00 PM [facility] CBC Specimen Type: BLOOD No comment entered. Ordering Provider: KYLER PURCELL Report Released Date/Time: Jan 21, 2024 03:14 PM Reporting Lab: [facility] [address] [facility] [address] Performing Lab: [facility] [address] [place] [address] WBC 7.8 10*3/uL 3.6-11.2 RBC 2.95 10*6/uL L 4.10-5.70 HGB 8.7 g/dL L 13.1-16.8 HCT 26.7 L 38.2-48.4 MCV 90.5 fL 80.0-100.0 MCH 29.5 pg 27.0-34.0 MCHC 32.6 g/dL L 33.0-36.0 PLT 262 10*3/uL 150-400 MPV 11.3 fL H 7.5-11.2 RDW 12.5 11.8-15.1 LYMPHOCYTES, AUTO % 23 MONOCYTES, AUTO % 6 NEUTROPHILS, AUTO % 67 EOSINOPHILS, AUTO % 3 BASOPHILS, AUTO % 1 LYMPHOCYTES, ABSOLUTE 1.78 10*3/uL 0.77-4.50 MONOCYTES, ABSOLUTE 0.49 10*3/uL 0.19-0.80 NEUTROPHILS, ABSOLUTE 5.22 10*3/uL 2.10-8.00 EOSINOPHILS, ABSOLUTE 0.22 10*3/uL 0.00-0.60 BASOPHILS, ABSOLUTE 0.04 10*3/uL 0.00-0.20 Jan 21, 2024 12:55 PM [facility] PT/INR NEW ([facility]) Specimen Type: PLASMA No comment entered. Ordering Provider: KYLER PURCELL Report Released Date/Time: Jan 21, 2024 12:43 PM Reporting Lab: [address] [address] Performing Lab: [address] [address] PROTIME 15.9 s H 9.4-12.5 INR VALUE 1.4 {INR} Jan 21, 2024 12:55 PM [facility] RENAL PANEL Specimen Type: PLASMA Comment: No hemolysis noted. Ordering Provider: KYLER PURCELL Report Released Date/Time: Jan 21, 2024 12:41 PM Reporting Lab: [address] [address] Performing Lab: [address] [address] CREATININE 8.11 mg/dL H 0.7-1.3 UREA NITROGEN 82.6 mg/dL H 9.0-25.0 GLUCOSE 114 mg/dL H 72-99 SODIUM 139 meq/L 136-145 POTASSIUM 5.1 meq/L H 3.5-5 CHLORIDE 109 meq/L H 98-107 CARBON DIOXIDE 19 meq/L L 22-31 CALCIUM 9.3 mg/dL 8.4-10.4 PHOSPHOROUS 4.1 mg/dL 2.3-4.7 ALBUMIN 3.8 g/dL 3.4-5 EGFR (CKD-EPI 2020) 6.6 LL >60 Jan 14, 2024 11:55 AM [facility] RENAL PANEL Specimen Type: PLASMA Comment: No hemolysis noted. Ordering Provider: KYLER PURCELL Report Released Date/Time: Jan 13, 2024 07:58 AM Reporting Lab: [address] [address] Performing Lab: [address] [address] CREATININE 8.05 mg/dL H 0.7-1.3 UREA NITROGEN 70.7 mg/dL H 9.0-25.0 GLUCOSE 155 mg/dL H 72-99 SODIUM 140 meq/L 136-145 POTASSIUM 5.1 meq/L H 3.5-5 CHLORIDE 107 meq/L 98-107 CARBON DIOXIDE 21 meq/L L 22-31 CALCIUM 9.6 mg/dL 8.4-10.4 PHOSPHOROUS 4.8 mg/dL H 2.3-4.7 ALBUMIN 4.1 g/dL 3.4-5 EGFR (CKD-EPI 2020) 6.7 LL >60 Jan 11, 2024 11:36 AM [facility] GLUCOSE,BLOOD-poct (STL) Specimen Type: BLOOD Comment: Test Performed by: [id number] Meter #: [id number] Ordering Provider: LINOMED Report Released Date/Time: Jan 11, 2024 11:50 AM Reporting Lab: [address] [address] Performing Lab: [place] [address] [facility] [address] GLUCOSE,BLOOD- poct (STL) 106 mg/dL H 72-Jan 11, 2024 11:07 AM [facility] GLUCOSE,BLOOD-poct (STL) Specimen Type: BLOOD Comment: Test Performed by: [id number] Meter #: [id number] Ordering Provider: LINOMED Report Released Date/Time: Jan 11, 2024 11:18 AM Reporting Lab: [place] [address] [facility] [address] Performing Lab: [address] [address] GLUCOSE,BLOOD- poct (STL) 109 mg/dL H -Jan 11, 2024 05:12 AM [facility] GLUCOSE,BLOOD-poct (STL) Specimen Type: BLOOD Comment: Test Performed by: [id number] Meter #: [id number] Ordering Provider: LINOMED Report Released Date/Time: Jan 11, 2024 05:25 AM Reporting Lab: [place] [address] [facility] [address] Performing Lab: [place] [address] [facility] [address] GLUCOSE,BLOOD- poct (STL) 88 mg/dL -Jan 10, 2024 08:19 PM [facility] GLUCOSE,BLOOD-poct (STL) Specimen Type: BLOOD Comment: Test Performed by: [id number] Meter #: [id number] Ordering Provider: LINO,MED Report Released Date/Time: Jan 10, 2024 08:31 PM Reporting Lab: [address] [address] Performing Lab: [place] [address] [facility] [address] GLUCOSE,BLOOD- poct (STL) 153 mg/dL H 72-Jan 10, 2024 04:15 PM [facility] GLUCOSE,BLOOD-poct (STL) Specimen Type: BLOOD Comment: Test Performed by: [id number] Meter #: [id number] Ordering Provider: LIDIA HUYNH Report Released Date/Time: Jan 10, 2024 05:05 PM Reporting Lab: [address] [address] Performing Lab: [address] [address] GLUCOSE,BLOOD- poct (STL) 84 mg/dL 72-Jan 10, 2024 11:31 AM [facility] GLUCOSE,BLOOD-poct (STL) Specimen Type: BLOOD Comment: Test Performed by: [id number] Meter #: [id number] Ordering Provider: LIDIA HUYNH Report Released Date/Time: Jan 10, 2024 12:03 PM Reporting Lab: [address] [address] Performing Lab: [address] [address] GLUCOSE,BLOOD- poct (STL) 99 mg/dL -Jan 10, 2024 04:45 AM [facility] GLUCOSE,BLOOD-poct (STL) Specimen Type: BLOOD Comment: Test Performed by: [id number] Meter #: [id number] Ordering Provider: LIDIA HUYNH Report Released Date/Time: Jan 10, 2024 05:29 AM Reporting Lab: [address] [address] Performing Lab: [address] [address] GLUCOSE,BLOOD- poct (STL) 109 mg/dL H 72-Jan 09, 2024 08:08 PM [facility] GLUCOSE,BLOOD-poct (STL) Specimen Type: BLOOD Comment: Test Performed by: [id number] Meter #: [id number] Ordering Provider: LIDIA HUYNH Report Released Date/Time: Jan 09, 2024 08:28 PM Reporting Lab: [facility] [address] [facility] [address] Performing Lab: [facility] [address] [facility] [address] GLUCOSE,BLOOD- poct (STL) 110 mg/dL H 72-99 Jan 09, 2024 04:19 PM [facility] GLUCOSE,BLOOD-poct (STL) Specimen Type: BLOOD Comment: Test Performed by: [id number] Meter #: [id number] Ordering Provider: LIDIA HUYNH Report Released Date/Time: Jan 09, 2024 04:34 PM Reporting Lab: [facility] [address] [facility] [address] Performing Lab: [facility] [address] [place] [address] GLUCOSE,BLOOD- poct (STL) 119 mg/dL H 72-99 Jan 09, 2024 02:30 PM [facility] MAGNESIUM Specimen Type: PLASMA Comment: No hemolysis noted. Ordering Provider: TATI ZAVALA Report Released Date/Time: Jan 09, 2024 07:51 AM Reporting Lab: [facility] [address] [facility] [address] Performing Lab: [facility] [address] [place] [address] MAGNESIUM 1.6 mg/dL 1.6-2.6 Jan 09, 2024 02:30 PM [facility] RENAL PANEL Specimen Type: PLASMA Comment: No hemolysis noted. Ordering Provider: TATI ZAVALA Report Released Date/Time: Jan 09, 2024 07:51 AM Reporting Lab: [facility] [address] [facility] [address] Performing Lab: [facility] [address] [place] [address] CREATININE 5.13 mg/dL H 0.7-1.3 UREA NITROGEN 46.2 mg/dL H 9.0-25.0 GLUCOSE 177 mg/dL H 72-99 SODIUM 136 meq/L 136-145 POTASSIUM 4.0 meq/L 3.5-5 CHLORIDE 101 meq/L 98-107 CARBON DIOXIDE 23 meq/L 22-31 CALCIUM 8.6 mg/dL 8.4-10.4 PHOSPHOROUS 2.7 mg/dL 2.3-4.7 ALBUMIN 3.6 g/dL 3.4-5 EGFR (CKD-EPI 2020) 11.5 LL >60 Jan 09, 2024 12:27 PM [facility] GLUCOSE,BLOOD-poct (STL) Specimen Type: BLOOD Comment: Test Performed by: [id number] Meter #: [id number] Ordering Provider: LINOMED Report Released Date/Time: Jan 09, 2024 12:38 PM Reporting Lab: [address] [address] Performing Lab: [address] [address] GLUCOSE,BLOOD- poct (STL) 98 mg/dL 72-99 Jan 09, 2024 07:15 AM [facility] GLUCOSE,BLOOD-poct (STL) Specimen Type: BLOOD Comment: Test Performed by: [id number] Meter #: [id number] Ordering Provider: LINOMED Report Released Date/Time: Jan 09, 2024 07:58 AM Reporting Lab: [address] [address] Performing Lab: [address] [address] GLUCOSE,BLOOD- poct (STL) 86 mg/dL 72-99 Jan 08, 2024 09:04 PM [facility] GLUCOSE,BLOOD-poct (STL) Specimen Type: BLOOD Comment: Test Performed by: [id number] Meter #: [id number] Ordering Provider: LINO,MED Report Released Date/Time: Jan 08, 2024 09:47 PM Reporting Lab: [facility] [address] [address] Performing Lab: [facility] [address] [place] [address] GLUCOSE,BLOOD- poct (STL) 90 mg/dL 72-99 Jan 08, 2024 09:01 PM [facility] HEP B CORE AB TOTAL. (STL) Specimen Type: SERUM No comment entered. Ordering Provider: EFREN TAYLOR Report Released Date/Time: Jan 08, 2024 02:35 PM Reporting Lab: [address] [address] Performing Lab: [address] [address] HEP B CORE AB TOTAL. (STL) Nonreactive Nonreactive Jan 08, 2024 09:01 PM [facility] HEPATITIS B SURFACE AB PNL Specimen Type: SERUM No comment entered. Ordering Provider: EFREN TAYLRO Report Released Date/Time: Jan 08, 2024 02:35 PM Reporting Lab: [address] [address] Performing Lab: [address] [address] HEP B Surface Ab-HBsAB (STL) REACTIVE m[IU]/mL Nonreactive HEP Bs AB-QUANT (STL) 63.22 m[IU]/mL Jan 08, 2024 09:01 PM [facility] HEP HB S Ag ([place]) (STL) Specimen Type: SERUM No comment entered. Ordering Provider: EFREN TAYLOR Report Released Date/Time: Jan 08, 2024 02:35 PM Reporting Lab: [address] [address] Performing Lab: [address] [address] HEP HB S Ag ([place]) (STL) Nonreactive Nonreactive Jan 08, 2024 04:47 PM [facility] GLUCOSE,BLOOD-poct (STL) Specimen Type: BLOOD Comment: Test Performed by: [id number] Meter #: [id number] Ordering Provider: LIDIA HUYNH Report Released Date/Time: Jan 08, 2024 05:09 PM Reporting Lab: [address] [address] Performing Lab: [address] [address] GLUCOSE,BLOOD- poct (STL) 95 mg/dL 72-99 Jan 08, 2024 11:26 AM [facility] GLUCOSE,BLOOD-poct (STL) Specimen Type: BLOOD Comment: Test Performed by: [id number] Meter #: [id number] Ordering Provider: LIDIA HUYNH Report Released Date/Time: Jan 08, 2024 11:37 AM Reporting Lab: [address] [address] Performing Lab: [address] [address] GLUCOSE,BLOOD- poct (STL) 105 mg/dL H 72-99 Jan 08, 2024 07:01 AM [facility] RENAL PANEL Specimen Type: PLASMA Comment: No hemolysis noted. Ordering Provider: LIZETTE GRIFFIN Report Released Date/Time: Jan 07, 2024 11:24 PM Reporting Lab: [address] [address] Performing Lab: [address] [address] CREATININE 8.50 mg/dL H 0.7-1.3 UREA NITROGEN 88.2 mg/dL H 9.0-25.0 GLUCOSE 70 mg/dL L 72-99 SODIUM 139 meq/L 136-145 POTASSIUM 5.4 meq/L H 3.5-5 CHLORIDE 110 meq/L H 98-107 CARBON DIOXIDE 19 meq/L L 22-31 CALCIUM 9.4 mg/dL 8.4-10.4 PHOSPHOROUS 5.1 mg/dL H 2.3-4.7 ALBUMIN 3.8 g/dL 3.4-5 EGFR (CKD-EPI 2020) 6.3 LL >60 Jan 08, 2024 06:37 AM [facility] GLUCOSE,BLOOD-poct (STL) Specimen Type: BLOOD Comment: Test Performed by: [id number] Meter #: [id number] Ordering Provider: LIDIA HUYNH Report Released Date/Time: Jan 08, 2024 06:48 AM Reporting Lab: [address] [address] Performing Lab: [address] [address] GLUCOSE,BLOOD- poct (STL) 86 mg/dL 72-99 Jan 07, 2024 11:58 PM [facility] RENAL PANEL Specimen Type: PLASMA Comment: No hemolysis noted. Ordering Provider: LIZETTE GRIFFIN Report Released Date/Time: Jan 07, 2024 11:38 PM Reporting Lab: [address] [address] Performing Lab: [address] [address] CREATININE 8.68 mg/dL H 0.7-1.3 UREA NITROGEN 92.6 mg/dL H 9.0-25.0 GLUCOSE 143 mg/dL H 72-99 SODIUM 138 meq/L 136-145 POTASSIUM 5.0 meq/L 3.5-5 CHLORIDE 111 meq/L H 98-107 CARBON DIOXIDE 17 meq/L L 22-31 CALCIUM 8.8 mg/dL 8.4-10.4 PHOSPHOROUS 3.8 mg/dL 2.3-4.7 ALBUMIN 3.8 g/dL 3.4-5 EGFR (CKD-EPI 2020) 6.1 LL >60 Jan 07, 2024 11:36 PM [facility] GLUCOSE,BLOOD-poct (STL) Specimen Type: BLOOD Comment: Test Performed by: [id number] Meter #: [id number] Ordering Provider: LIDIA MOSCOSO Report Released Date/Time: Jan 07, 2024 11:47 PM Reporting Lab: [address] [address] Performing Lab: [address] [place] [address] GLUCOSE,BLOOD- poct (STL) 157 mg/dL H 72-99 Jan 07, 2024 11:30 PM [facility] MRSA SURVL NARES DNA Specimen Type: NARES Comment: Qualitative real-time PCR test for the rapid detection of methicillin-resis tant Staphylococcus aureus (MRSA) DNA from nasal swabs. A negative result does not preclude infection with the agent(s) tested and should not be used as the sole basis for treatment or other patient management decisions. A positive test does not necessarily indicate the presence of viable organisms, following bacterial culture to recover the organism for further characterization and susceptibility testing. All results must be combined with clinical observations, patient history, and epidemiological information for final interpretation. Ordering Provider: LIZETTE GRIFFIN Report Released Date/Time: Jan 07, 2024 11:24 PM Reporting Lab: [address] [address] Performing Lab: [address] [address] MRSA SURVL NARES DNA Negative Negative Jan 07, 2024 09:08 PM [facility] POTASSIUM Specimen Type: PLASMA Comment: No hemolysis noted. Ordering Provider: ANNA CALI Report Released Date/Time: Jan 07, 2024 08:38 PM Reporting Lab: [address] [address] Performing Lab: [address] [address] POTASSIUM 5.7 meq/L H 3.5-5 Jan 07, 2024 07:30 PM [facility] URINALYSIS (L-PB) Specimen Type: URINE No comment entered. Ordering Provider: ANNA CALI Report Released Date/Time: Jan 07, 2024 05:18 PM Reporting Lab: [address] [address] Performing Lab: [address] [address] [address] URINE COLOR Colorless Yellow U.BILIRUBIN Negative mg/dL Negative U.PH 5.5 5.0-8.0 URINE WBC/HPF 1 /[HPF] 0-5 URINE RBC/HPF 1 /[HPF] 0-5 APPEARANCE Clear Clear U.NITRITE Negative mg/dL Negative SQUAMOUS EPITH. <1 /[HPF] 0-5 URN.GLUCOSE Normal mg/dL Negative URN.PROTEIN 100 mg/dL H Negative-20 URN.UROBILINOG EN Normal mg/dL Normal URN.BLOOD Negative mg/dL Negat xavier-Tra ce URN.KETONES Negative mg/dL Neg ative-Tra ce URN.LEUK.EST. Negative mg/dL N egative-Tra ce URN.SPECIFIC GRAVITY 1.015 1.005-1.029 Jan 07, 2024 05:30 PM [facility] BRAIN NATRIURETIC PEPTIDE Specimen Type: PLASMA No comment entered. Ordering Provider: GRACIELA MANN Report Released Date/Time: Jan 07, 2024 04:59 PM Reporting Lab: [address] [address] Performing Lab: [address] [address] BRAIN NATRIURETIC PEPTIDE 59.0 pg/mL 0-100 Jan 07, 2024 05:30 PM [facility] COVID-19 DIAGNOSTIC (FLU/RSV)(ST) Specimen Type: NASOPHARYNX Comment: Qualitative real-time PCR and RT-PCR to detect viral RNA. A negative result does not preclude infection with the agent(s) tested and should not be used as the sole basis for treatment or other patient management decisions. If negative, but symptoms persist, consider re-testing. Positive results do not rule out bacterial infection or co-infection with other viruses. All results must be combined with clinical observations, patient history, and epidemiological information for final interpretation. Ordering Provider: GRACIELA MANN Report Released Date/Time: Jan 07, 2024 04:59 PM Reporting Lab: [address] [address] Performing Lab: [address] [address] INFLUENZA A Negative Negative INFLUENZA B Negative Negative COVID-19 (STL-PB) Not Detected Not Detected RSV (Cepheid) NEGATIVE Negative Jan 07, 2024 05:30 PM [facility] COMPREHENSIVE METABOLIC PANEL Specimen Type: PLASMA Comment: Aspartate Transaminase result may show positive bias due to hemolysis. K result canceled due to hemolysis. Specimen moderately hemolyzed. K cancelled due to moderate hemolysis. Called to : Phillip Cee RN at: 1902 on: 01/07/2024 by: TENNILLE Ordering Provider: GRACIELA MANN Report Released Date/Time: Jan 07, 2024 04:59 PM Reporting Lab: [address] [address] Performing Lab: [address] [address] CREATININE 8.88 mg/dL H 0.7-1.3 UREA NITROGEN 93.0 mg/dL H 9.0-25.0 GLUCOSE 110 mg/dL H 72-99 SODIUM 135 meq/L L 136-145 POTASSIUM canc meq/L HH 3.5-5 CHLORIDE 111 meq/L H 98-107 CARBON DIOXIDE 13 meq/L L 22-31 CALCIUM 8.9 mg/dL 8.4-10.4 PROTEIN 7.6 g/dL 6-8.6 ALBUMIN 4.0 g/dL 3.4-5 TOTAL BILIRUBIN 0.4 mg/dL 0.2-1.2 ALKALINE PHOSPHATASE 100 U/L 40-150 AST/SGOT 18 U/L 5-34 ALT/SGPT 17 U/L 8-40 EGFR (CKD-EPI 2020) 5.9 LL >60 Jan 07, 2024 05:30 PM [facility] CBC Specimen Type: BLOOD No comment entered. Ordering Provider: GRACIELA MANN Report Released Date/Time: Jan 07, 2024 04:59 PM Reporting Lab: [address] [address] Performing Lab: [address] [address] WBC 9.2 10*3/uL 3.6-11.2 RBC 3.81 10*6/uL L 4.10-5.70 HGB 11.5 g/dL L 13.1-16.8 HCT 34.3 L 38.2-48.4 MCV 90.0 fL 80.0-100.0 MCH 30.2 pg 27.0-34.0 MCHC 33.5 g/dL 33.0-36.0 PLT 281 10*3/uL 150-400 MPV 11.5 fL H 7.5-11.2 RDW 13.8 11.8-15.1 LYMPHOCYTES, AUTO % 15 MONOCYTES, AUTO % 7 NEUTROPHILS, AUTO % 73 EOSINOPHILS, AUTO % 4 BASOPHILS, AUTO % 0 LYMPHOCYTES, ABSOLUTE 1.41 10*3/uL 0.77-4.50 MONOCYTES, ABSOLUTE 0.67 10*3/uL 0.19-0.80 NEUTROPHILS, ABSOLUTE 6.64 10*3/uL 2.10-8.00 EOSINOPHILS, ABSOLUTE 0.35 10*3/uL 0.00-0.60 BASOPHILS, ABSOLUTE 0.03 10*3/uL 0.00-0.20 Social History: Smoking Status (Most current) and Tobacco Use (All prior to encounter date) This section includes the most current, and the historical, smoking and tobacco- related health factors from the [place] facility where the [place] took place. Current Smoking Status This section includes the most current smoking, or tobacco-related health factor, from the [place] facility where the [place]counter took place. Date/Time Current Smoking Status Comment Ester ity Jun 21, 2023 01:14 PM [facility]YX ADMIT TOBACCO SCREEN NO [facility] Tobacco Use History This section includes a history of the smoking, or tobacco-related health factors, that were collected on or before the date of the Encounter. The data comes from the [place] facility where the Encounter took place. Date/Time Smoking Status/Tobacco Use Comment F acility Dec 12, 2022 04:00 PM ORYX ADMIT TOBACCO SCREEN NO [facility] Jun 25, 2022 03:24 PM VA-TOBACCO FORMER USER [facility] Jun 25, 2022 03:24 PM VA-TOBACCO QUIT 15 YRS OR MORE [facility] Dec 23, 2021 04:59 PM ORYX ADMIT TOBACCO SCREEN REFUSED [facility] May 24, 2020 11:27 PM ORYX ADMIT TOBACCO SCREEN NO [facility] Dec 12, 2019 10:24 AM VA-TOBACCO FORMER USER [facility] Dec 12, 2019 10:24 AM VA-TOBACCO QUIT 15 YRS OR MORE [facility] Aug 03, 2019 02:11 AM ORYX ADMIT TOBACCO SCREEN REFUSED [facility] Oct 12, 2018 01:14 AM QUIT TOBACCO >7 YEARS AGO [facility] Oct 11, 2018 03:33 PM ORYX ADMIT TOBACCO SCREEN NO [facility] Sep 07, 2018 09:13 PM ORYX ADMIT TOBACCO SCREEN NO [facility] Sep 07, 2018 07:52 PM QUIT TOBACCO >7 YEARS AGO [facility] Advance Directives: All historical and current Section Date Range: From patient's date of to the date document was created. This section includes ALL of a patient's completed or amended [place] Advance and Rescinded Directives. The entries below indicate that a directive exists for the patient, but an actual copy is not included with this document. The data comes from all [place] facilities. Date Advance Directives Provider Source Dec 17, 2022 ADVANCE DIRECTIVE BIJAN MERRITT [facility] Feb 09, 2020 ADVANCE DIRECTIVE DISCUSSION MELY LUCIANO [facility] Feb 02, 2018 ADVANCE DIRECTIVE BEAU ALTAMIRANO [facility] Nov 29, 2006 ADVANCE DIRECTIVE MARELY CHACON [facility] Radiology Reports: +/- 30 days of the encounter Radiology Reports For cases when an order for radiology services may have been completed prior to the date of the Encounter, the report list includes the Radiology Reports that were completed up to 30 days before dateof the Encounter. For cases when an order for radiology services may have been completed after the date of the Encounter, the report list also includes the Radiology Reports that were completed up to30 days after date of the Encounter. The data comes from all [place] treatment facilities. Date/Time Radiology Report Provider Source Jan 07, 2024 08:01 PM CHEST PORTABLE: NAGI KATZ [id number] -[id number] M Exm Date: JAN 07, 2024@20:01 Req Phys: ANNA CALI Pat Loc: [facility] DEPT 3RD SHIFT (R Img Loc: -MAIN RADIOLOGY SUITE Service: Unknown (Case [id number] COMPLETE) CHEST PORTABLE (RAD Detailed) CPT:55938 Proc Modifiers : Portable Reason for Study: weakness, ESRD Clinical History: Report Status: Verified Date Reported: JAN 07, 2024 Date Verified: JAN 07, 2024 Senior Product Designer E-Sig: Report: CHEST PORTABLE HISTORY: weakness, ESRD COMPARISON: July 26, 2023 TECHNIQUE: One view of the chest was performed at the local [place] facility. images were received by the [place] National Teleradiology Program (NTP) for interpretation. FINDINGS: Bilateral peribronchial thickening. Patchy bilateral lower lobe lung opacities. Mildly tortuous aorta. No acute bony abnormalities. Impression: 1. Bilateral peribronchial thickening. 2. Patchy bilateral lung opacities likely represent atelectasis. 3. No pneumothorax. READING PHYSICIAN: Madhu Patton M.D. -[id number] 01/07/2024 19:10 PDT [facility] National Teleradiology Program [phone] (For Medical Practitioner Use Only) Attention Patients / Veterans: If you have questions or concerns about these test results, please contact your ordering provider or primary care team. Primary Interpreting Staff: RADIOLOGY,OUTSIDE SERVICE, Staff Physician / RADIOLOGY,OUTSIDE SERVICE [facility] Encounter Notes: All associated encounter notes This section contains the clinical notes associated to the Encounter. Date/Time Encounter Note(s) Provider Source Oct 20, 2023 11:00 AM NONVA NOTE: LOCAL TITLE: COMMUNITY CARE-REQUEST FOR SERVICE NOTE [facility] STANDARD TITLE: NONVA NOTE DATE OF NOTE: OCT 20, 2023@11:00 ENTRY DATE: FEB 02, 2024@17:07:28 AUTHOR: MIHAI ARNOLD COSIGNER: URGENCY: STATUS: COMPLETED Request for Services (RFS) documentation has [facility] for [facility] Community Care Consult: COMMUNITY CARE-Transplant Consult No: [id number] Date sent to scanning: Oct A Request for Service (RFS) form [id number] has been received which includes the following: Care Requested: continunity of care; pre-eval for transplant. Request sent to [place] Provider ICD-10 Dx code: N18.5 Date [facility] received request: Oct Date service required: Oct Requesting [facility] Provider Information: Name of Ordering Provider: [facility] Office:[facility] Address, City, State: [address] [place] [address], [id number]- Attn: Kenia /es/ MIHAI MCFARLANE RN REGISTERED NURSE Signed: 02/02/2024 17:10 MIHAI ARNOLD [facility]
--- OUTSIDE RECORDS SUMMARY | 2024-12-05 00:20 | XMS_ITS | Encounter Summary ---
Author Name [facility] [place] [facility] [place] Address [address] [place] [address] Care Team Providers Care Squeegeer And Former Name Role Phone ERIKA DEE Primary Care Provider UnavailBLU Echols Primary Care Provider Unavailab edomnd Insurance Providers: All historical and current Section [...] PART A Jul 12, 2019 PART A [id number] PRASANNA KATZ PATIENT MEDICARE (WNR) MEDICARE (M) PART A Jul 12, 2019 PART A [id number] PRASANAN KATZ PATIENT Selected Encounter This section includes the information on record at [place] for the Encounter. Date/Time Encounter Type Encounter Description Reason Pro vider Source Nov 09, 2024 03:57 PM Outpatient Encounter GENERAL INTERNAL MEDICINE IHE Encounter Template Text not used by [place] Plan of Treatment: Future Appointments (+ 6 [...] 20 appointments. The data comes from all [facility]. Appointment Date/Time Appointment Type Appointme nt Facility Name Nov 15, 2024 08:00 AM AMBULATORY - NONE [facility] Nov 30, 2024 09:00 AM AMBULATORY - MEDICINE [facility] Nov 30, 2024 11:00 AM AMBULATORY - MEDICINE [facility] Dec 02, 2024 10:15 AM AMBULATORY - MEDICINE [facility] Dec 12, 2024 12:45 PM AMBULATORY - MEDICINE [facility] Dec 12, 2024 03:00 PM AMBULATORY - SURGERY [facility] Mar 20, 2025 10:30 AM AMBULATORY - MEDICINE [facility] Active, Pending, and Scheduled Orders This section includes a listing of several types of active, pending, and scheduled orders, including clinic medications orders, diagnostic test orders, procedure orders and consult orders; where the start date of the order is 45 days before the date of the Encounter or 45 days after the date of theEncounter. The data comes from all [facility]. Test Date/Time Test Type Test Details Facility Name Nov 16, 2024 12:16 PM Consult Order RENAL DUMAS SPLANT EVAL OUTPATIENT [facility] Cons Gate Tender's Choice [facility] Lab Results: +/- 30 days of the encounter This section includes the Chemistry and Hematology Lab Results on record with [place] for the patient. Radiology Reports and Pathology Reports are provided separately, in subsequent sections. Lab Results This section contains the Chemistry/Hematology Results that were resulted 30 days before or 30 daysafter the date of the Encounter. Date/Time Source Result Type Result - Unit Interpretation Reference Range Comment Dec 02, 2024 11:50 AM [facility] URINALYSIS W/ CX REFLEX (STL-PB) Specimen Type: URINE No comment entered. Ordering Provider: NIEVES MUHAMMAD MD Report Released Date/Time: Dec 02, 2024 10:33 AM Reporting Lab: [place] [id number] [facility] [phone] Performing Lab: [place] [address] [place] [phone] URINE COLOR Colorless Yellow U.BILIRUBIN Negative mg/dL Negative U.PH 7.0 5.0-8.0 URINE WBC/HPF 1 /[HPF] 0-5 URINE RBC/HPF 3 /[HPF] 0-5 APPEARANCE Clear Clear U.NITRITE Negative mg/dL Negative SQUAMOUS EPITH. <1 /[HPF] 0-5 URN.GLUCOSE Normal mg/dL Negative URN.PROTEIN 100 mg/dL H URN.UROBILINOGEN Normal mg/dL Normal URN.BLOOD 1+ mg/dL H Negative-T race URN.KETONES Negative mg/dL Neg ative-T race URN.LEUK.EST. Negative mg/dL N egative-T race URN.SPECIFIC GRAVITY 1.010 Dec 02, 2024 10:30 AM [facility] LIPASE Specimen Type: PLASMA Comment: No hemolysis noted. Ordering Provider: NIEVES MUHAMMAD MD Report Released Date/Time: Dec 02, 2024 10:33 AM Reporting Lab: [place] [address] [place] [address] Performing Lab: [place] [address] LIPASE 198 U/L H 8-78 Dec 02, 2024 10:30 AM [facility] APTT Specimen Type: PLASMA No comment entered. Ordering Provider: NIEVES MUHAMMAD MD Report Released Date/Time: Dec 02, 2024 10:33 AM Reporting Lab: [place] [address] Performing Lab: [place] [address] APTT 37.8 s 26.7-39.9 Dec 02, 2024 10:30 AM [facility] PT/INR NEW (STL-MA) Specimen Type: PLASMA No comment entered. Ordering Provider: NIEVES MUHAMMAD MD Report Released Date/Time: Dec 02, 2024 10:33 AM Reporting Lab: [facility] [address] [facility] [address] Performing Lab: [facility] [address] [facility] [phone] PROTIME 14.4 s H 9.4-12.5 INR VALUE 1.3 {INR} Dec 02, 2024 10:30 AM [facility] COVID-19 DIAGNOSTIC (FLU/RSV)(STL) Specimen Type: NASOPHARYNX Comment: INFLUENZA A CALLED TO JORGE HANKINS RN [phone] Ordering Provider: NIEVES MUHAMMAD MD Report Released Date/Time: Dec 02, 2024 10:33 AM Reporting Lab: [facility] [address] [place] [phone] Performing Lab: [address] [address] INFLUENZA A POSITIVE INFLUENZA B NEGATIVE COVID-19 (Cepheid) NEGATIVE Negative COVID-19 (STL-PB) Not Detected Not Detected RSV (Cepheid) NEGATIVE Negative Dec 02, 2024 10:30 AM [facility] TROPONIN I Specimen Type: PLASMA No comment entered. Ordering Provider: NIEVES MUHAMMAD MD Report Released Date/Time: Dec 02, 2024 10:54 AM Reporting Lab: [facility] [address] [place] [phone] Performing Lab: [facility] [address] [place] [phone] TROPONIN I 0.058 ng/mL H 0-0.033 Dec 02, 2024 10:30 AM [facility] LIPASE Specimen Type: PLASMA No comment entered. Ordering Provider: NIEVES MUHAMMAD MD Report Released Date/Time: Dec 02, 2024 10:59 AM Reporting Lab: [facility] [address] [place] [phone] Performing Lab: [address] [address] LIPASE 201 U/L H 8-78 Dec 02, 2024 10:30 AM [facility] CBC Specimen Type: BLOOD No comment entered. Ordering Provider: NIEVES MUHAMMAD MD Report Released Date/Time: Dec 02, 2024 10:33 AM Reporting Lab: [address] [address] Performing Lab: [address] [address] WBC 4.6 10*3/uL 3.6-11.2 RBC 3.71 10*6/uL L 4.10-5.70 HGB 11.5 g/dL L 13.1-16.8 HCT 34.1 L 38.2-48.4 MCV 91.9 fL 80.0-100.0 MCH 31.0 pg 27.0-34.0 MCHC 33.7 g/dL 33.0-36.0 PLT 184 10*3/uL 150-400 MPV 10.9 fL 7.5-11.2 RDW 12.3 11.8-15.1 LYMPHOCYTES, AUTO % 21 MONOCYTES, AUTO % 16 NEUTROPHILS, AUTO % 62 EOSINOPHILS, AUTO % 1 BASOPHILS, AUTO % 0 LYMPHOCYTES, ABSOLUTE 0.96 10*3/uL 0.77-4.50 MONOCYTES, ABSOLUTE 0.71 10*3/uL 0.19-0.80 NEUTROPHILS, ABSOLUTE 2.82 10*3/uL 2.10-8.00 EOSINOPHILS, ABSOLUTE 0.03 10*3/uL 0.00-0.60 BASOPHILS, ABSOLUTE 0.01 10*3/uL 0.00-0.20 Dec 02, 2024 10:30 AM [facility] COMPREHENSIVE METABOLIC PANEL Specimen Type: PLASMA Comment: No hemolysis noted. Ordering Provider: NIEVES MUHAMMAD MD Report Released Date/Time: Dec 02, 2024 10:33 AM Reporting Lab: [address] [address] Performing Lab: [address] [address] CREATININE 9.62 mg/dL H 0.7-1.3 UREA NITROGEN 60.5 mg/dL H 9.0-25.0 GLUCOSE 123 mg/dL H 72-99 SODIUM 134 meq/L L 136-145 POTASSIUM 4.8 meq/L 3.5-5 CHLORIDE 101 meq/L 98-107 CARBON DIOXIDE 21 meq/L L 22-31 CALCIUM 9.0 mg/dL 8.4-10.4 PROTEIN 7.5 g/dL 6-8.6 ALBUMIN 4.0 g/dL 3.4-5 TOTAL BILIRUBIN 0.6 mg/dL 0.2-1.2 ALKALINE PHOSPHATASE 119 U/L 40-150 AST/SGOT 33 U/L 5-34 ALT/SGPT 50 U/L H 8-40 EGFR (CKD-EPI 2020) 5.4 LL >60 Dec 02, 2024 10:30 AM [facility] RESPIRATORY PCR PANEL Specimen Type: NASOPHARYNX Comment: [id number] Alert sent : Flu A typing only. The BlazeMeter RP Panel combines nested multiplex PCR and DNA melting analysis for the simultaneous qualitative detection and identification of multiple respiratory viral and bacterial nucleic acids. A negative result does not preclude infection with the agent(s) tested and should not be used as the sole basis for treatment or other patient management decisions. Detection of organism target(s) does not imply that the corresponding organisms are infectious or are the causative agents for clinical symptoms. Results from this test must be correlated with the clinical history, epidemiological data, and other data available to the clinician evaluating the patient. Rylan KOEHLER, (663) Ordering Provider: DEISY PURCELL Report Released Date/Time: Dec 02, 2024 11:50 AM Reporting Lab: [facility] [address] [facility] [place] [address] Performing Lab: [facility] [address] [facility] [phone] *Adenovirus (BF) Not Detected Not Detected *Coronavirus HKU1 (BF) Not Detected Not Detected *Coronavirus NL63 (BF) Not Detected Not Detected *Coronavirus 229E (BF) Not Detected Not Detected *Coronavirus OC43 (BF) Not Detected Not Detected *Human Metapneumovirus (BF) Not Detected Not Detected *Human Rhino/Enteroviru s(BF) Not Detected Not Detected *Influenza A/H1-2009 (BF) DETECTED H Not Detected *Influenza B (BF) Not Detected Not Detected *Parainfluenza Virus 1 (BF) Not Detected Not Detected *Parainfluenza Virus 2 (BF) Not Detected Not Detected *Parainfluenza Virus 3 (BF) Not Detected Not Detected *Parainfluenza Virus 4 (BF) Not Detected Not Detected *Resp Syncytial Virus (BF) Not Detected Not Detected *Bordetella pertussis (BF) Not Detected Not Detected *Chlamydophilia pneumoniae (BF) Not Detected Not Detected *Mycoplasma pneumoniae (BF) Not Detected Not Detected *Bordatella parapertussis (BF) Not Detected Not Detected COVID-19 (BIOFIRE) Not Detected Not Detected Social History: Smoking Status (Most current) and Tobacco Use (All prior to encounter date) This section includes the most current, and the historical, smoking and tobacco- related health factors from the [place] facility where the Encounter took place. Current Smoking Status This section includes the most current smoking, or tobacco-related health factor, from the [place] facility where the Encounter took place. Date/Time Current Smoking Status Comment Ester ity Jun 21, 2023 01:14 PM ORYX ADMIT TOBACCO SCREEN NO [facility] Tobacco Use History This section includes a history of the smoking, or tobacco-related health factors, that were collected on or before the date of the Encounter. The data comes from the [place] facility where the Encounter took place. Date/Time Smoking Status/Tobacco Use Comment F acility Dec 12, 2022 04:00 PM ORYX ADMIT TOBACCO SCREEN NO [facility] Jun 25, 2022 03:24 PM VA-TOBACCO FORMER USER [facility] Jun 25, 2022 03:24 PM VA-TOBACCO QUIT 15 YRS OR MORE [facility] Dec 23, 2021 04:59 PM ORYX ADMIT TOBACCO SCREEN REFUSED [facility] May 24, 2020 11:27 PM ORYX ADMIT TOBACCO SCREEN NO [facility] Dec 12, 2019 10:24 AM VA-TOBACCO FORMER USER [facility] Dec 12, 2019 10:24 AM VA-TOBACCO QUIT 15 YRS OR MORE [facility] Aug 03, 2019 02:11 AM ORYX ADMIT TOBACCO SCREEN REFUSED [facility] Oct 12, 2018 01:14 AM QUIT TOBACCO >7 YEARS AGO [facility] Oct 11, 2018 03:33 PM ORYX ADMIT TOBACCO SCREEN NO [facility] Sep 07, 2018 09:13 PM ORYX ADMIT TOBACCO SCREEN NO [facility] Sep 07, 2018 07:52 PM QUIT TOBACCO >7 YEARS AGO [facility] Advance Directives: All historical and current Section Date Range: From patient's date of to the date document was created. This section includes ALL of a patient's completed or amended [place] Advance and Rescinded Directives. The entries below indicate that a directive exists for the patient, but an actual copy is not included with this document. The data comes from all [place] facilities. Date Advance Directives Provider Source Dec 17, 2022 ADVANCE DIRECTIVE BIJAN MERRITT [facility] Feb 09, 2020 ADVANCE DIRECTIVE DISCUSSION MELY LUCIANO [facility] Feb 02, 2018 ADVANCE DIRECTIVE BEAU ALTAMIRANO [facility] Nov 29, 2006 ADVANCE DIRECTIVE MARELY CHACON [facility] Radiology Reports: +/- 30 days of [...] the Encounter. The data comes from all [place] treatment facilities. Date/Time Radiology Report Provider Source Dec 02, 2024 12:00 PM CHEST PORTABLE: NAGI KATZ [id number] -1955 M Exm Date: DEC 02, 2024@12:00 Req Phys: NIEVES MUHAMMAD MD Pat Loc: -EMERGENCY DEPT 2ND SHIFT (R Img Loc: -MAIN RADIOLOGY SUITE Service: [facility], [facility] [address] [place] [address] (Case [id number] COMPLETE) CHEST PORTABLE (RAD Detailed) CPT:27074 Proc Modifiers : Portable Reason for Study: cough Clinical History: Report Status: Verified Date Reported: DEC 02, 2024 Date Verified: DEC 02, 2024 Transit Planner E-Sig:/EDWAR/ED ORDONEZ Report: EXAM: CHEST PORTABLE COMPARISON: 01/07/2024. HISTORY: cough FINDINGS: The heart size and pulmonary vasculature are normal. There is no consolidating infiltrate, effusion or pneumothorax. Impression: No active lung disease. RR Primary Interpreting Staff: ED ORDONEZ, Staff Physician (Transit Planner) /ED [facility] Nov 15, 2024 07:[address] ABD PEL W/O CON T & 3D: NAGI KATZ [id number] -1955 M Exm Date: NOV 15, 2024@07:20 Req Phys: KIMBERLY PURCELL Pat Loc: [facility] NP2 (Req'g Loc) Img Loc: [facility]-CT IMAGING [facility] Service: [address] [address] (Case [id number] COMPLETE) CT ABDOMEN AND PELVIS W/O CONTRAS(CT Detailed) CPT:83748 Reason for Study: to r/o abdominal wall hernia Clinical History: Responsible Attending: Dr. Ye Attending Contact Number: [phone] Resident Contact Number: To rule out abdominal wall hernia Allergies listed in CPRS chart: MORPHINE Creatinine:CREATININE 7.69 H mg/dL 02/09/2024 12:40 /eGFR: STL EGFR (within one year). CREATININE 7.69 mg/dL H (02/09/24 12:40) Wt: 226.8 lb [102.87 kg] (05/16/2024 14:10) History of: Renal failure, chronic or acute renal disease: YES Report Status: Verified Date Reported: NOV 15, 2024 Date Verified: NOV 15, 2024 Transit Planner E-Sig:/ES/JOSE BARRERA MD Report: Spiral axial imaging through the abdomen and pelvis was performed without contrast. History provided does not specifically explain the clinical reason and/or location of symptoms for the requested examination. Comparison: 06/21/2023 Liver: normal The spleen: normal Pancreas: normal Adrenal glands: No significant abnormality Kidneys: Stable hyperdense and simple appearing cysts. No new abnormalities requiring further workup or follow-up Aorta and retroperitoneum: Calcified plaque, caliber does not exceed 3 cm. No retroperitoneal adenopathy. Peritoneal cavity: No ascites. Postsurgical changes in the gut with what appears to be a sigmoid colon anastomosis as well as bowel joshua in the anterior midline, probably in small bowel. There is no abdominal wall hernia per se, however there is abdominal wall diastases with near complete atrophy of the right rectus abdominis muscle Skeleton: Unremarkable. The term unremarkable may include mild to moderate arthritic changes that would not be considered unusual for the patient's age Pelvis: The pelvic organs are unremarkable.Penile prosthesis and reservoir Impression: Postsurgical changes, abdominal wall diastases and atrophy of the right rectus abdominis muscle Primary Interpreting Staff: JOSE BARRERA MD, Radiologist (Transit Planner) /JOSE YANG [facility] Encounter Notes: All associated encounter notes This section contains the clinical notes associated to the Encounter. Date/Time Encounter Note(s) Provider Source Nov 10, 2024 01:02 PM ADDENDUM: LOCAL TITLE: Addendum STANDARD TITLE: ADDENDUM DATE OF NOTE: NOV 10, 2024@13:02:45 ENTRY DATE: NOV 10, 2024@13:02:46 AUTHOR: MARTHA PURCELL COSIGNER: URGENCY: STATUS: COMPLETED I spoke with Mrs. Katz, 's regarding request for pd catheter placement in the community, also notified dr. Ye in general surgery. She agreed to have catheter placed here. Consult placed to general surgery, CT abd/pelvis ordered per protocol. Will cc pd nursing team to note to do home visit. /edwar/ KIMBERLY PURCELL CROSSBOW MAKER, ELECTRIC ORGAN ASSEMBLER AND CHECKER-BC, DNP NURSE PRACTITIONER Signed: 11/10/2024 13:05 Receipt Acknowledged By: 11/10/2024 13:28 /es/ JOSH SCHMIDT TYPING BOOKKEEPER REGISTERED NURSE 11/10/2024 13:32 /es/ MERY TREJO MD STAFF PHYSICIAN,NEPHROLOGY 11/16/2024 20:14 /es/ Tirso Ye III, MD [facility] General Surgery Attending 11/10/2024 13:51 /es/ AYLA BARRERA Registered Nurse --- Original Document --- 11/09/24 ADMINISTRATIVE STL: This signwriter received a call from the Margie's spouse, Romario, to request home dialysis at the suggestion of [facility] as it would be easier to tolerate. Mentioned needing a new catheter as well. She was provided with the following contact information. POC: Dr. Herlinda More is scheduled for an appointment on 11/16/24 at 11am. Provider follow up is required. Thank you! /edwar/ SULEMA HULL ADVANCED WATER REGULATOR AND VALVE REPAIRER Signed: 11/09/2024 16:01 Receipt Acknowledged By: 11/09/2024 16:48 /es/ BLU MARTE Staff Physician * AWAITING SIGNATURE * [place] 11/10/2024 08:43 /es/ Uriel Pineda Rn, BSN REGISTERED NURSE 11/10/2024 14:06 /es/ Rhonda Blanc MSW,CONSERVATION WORKER Licensed Clinical Rn Heart 11/10/2024 12:14 /es/ JOSH SCHMIDT TYPING BOOKKEEPER REGISTERED NURSE 11/10/2024 08:28 /es/ AYLA BARRERA Registered Nurse 11/10/2024 12:56 /es/ MARK OCONNELL APRNP-BC, DNP NURSE PRACTITIONER 11/10/2024 ADDENDUM STATUS: COMPLETED This signwriter made FUNMI Arredondo aware of pt request for referral and CHIEF INNOVATION OFFICER will follow up. /edwar/ JOSH SCHMIDT RN BSN REGISTERED NURSE Signed: 11/10/2024 12:13 11/10/2024 ADDENDUM STATUS: COMPLETED [facility] PD clinic is not full. Being that hima lives than [address] [place] to this [place] the expection is that he come here for his pd care if deemed appropriate for pd. In general, veterans can choose to remain in the [facility] using their private insurance. However, only has Medicare Part [place] outside of [place] but Medicare Part B is what covers community oupatient dialysis. A consult has been placed for catheter placement surgery here. SW attemtped to reach at to discuss the above but receieved vm. EZEKIEL left a message for a return call. /FLORIN Oro,CONSERVATION WORKER Licensed Clinical Rn Heart Signed: 11/10/2024 14:[address] [facility] Nov 09, 2024 03:57 PM ADMINISTRATIVE NOT E: LOCAL TITLE: ADMINISTRATIVE STL STANDARD TITLE: ADMINISTRATIVE NOTE DATE OF NOTE: NOV 09, 2024@15:57 ENTRY DATE: NOV 09, 2024@15:57:29 AUTHOR: SULEMA HULL COSIGNER: URGENCY: STATUS: COMPLETED ADMINISTRATIVE STL Has ADDENDA This signwriter received a call from the 's spouse, Romario, to request home dialysis at the suggestion of [facility] as it would be easier to tolerate. Mentioned needing a new catheter as well. She was provided with the following contact information. POC: Dr. Herlinda More Margie is scheduled for an appointment on 11/16/24 at 11am. Provider follow up is required. Thank you! /patrice HULL ADVANCED WATER REGULATOR AND VALVE REPAIRER Signed: 11/09/2024 16:01 Receipt Acknowledged By: 11/09/2024 16:48 /edwar/ BLU MARTE Staff Physician * AWAITING SIGNATURE * [place] 11/10/2024 08:43 /es/ Uriel Pineda Rn, BSN REGISTERED NURSE 11/10/2024 14:06 /edwar/ Rhonda Blanc MSW,CONSERVATION WORKER Licensed Clinical Rn Heart 11/10/2024 12:14 /edwar/ JOSH SCHMIDT RN BSN REGISTERED NURSE 11/10/2024 08:28 /es/ AYLA BARRERA Registered Nurse 11/10/2024 12:56 /edwar/ KIMBERLY PURCELL CROSSBOW MAKER, ELECTRIC ORGAN ASSEMBLER AND CHECKER-BC, DNP NURSE PRACTITIONER 11/10/2024 ADDENDUM STATUS: COMPLETED This signwriter made FUNMI Arredondo aware of pt request for referral and CHIEF INNOVATION OFFICER will follow up. /es/ JOSH SCHMIDT TYPING BOOKKEEPER REGISTERED NURSE Signed: 11/10/2024 12:13 11/10/2024 ADDENDUM STATUS: COMPLETED I spoke with Mrs. Katz, 's regarding request for pd catheter placement in the community, also notified dr. Ye in general surgery. She agreed to have catheter placed here. Consult placed to general surgery, CT abd/pelvis ordered per protocol. Will cc pd nursing team to note to do home visit. /es/ KIMBERLY PURCELL APRN, ELECTRIC ORGAN ASSEMBLER AND CHECKER-BC, DNP NURSE PRACTITIONER Signed: 11/10/2024 13:05 Receipt Acknowledged By: 11/10/2024 13:28 /es/ JOSH SCHMIDT TYPING BOOKKEEPER REGISTERED NURSE 11/10/2024 13:32 /es/ MERY TREJO MD STAFF PHYSICIAN,NEPHROLOGY * AWAITING SIGNATURE * RAYTIRSO De La Cruz EMILIE 11/10/2024 13:51 /es/ AYLA BARRERA Registered Nurse 11/10/2024 ADDENDUM STATUS: COMPLETED [facility] PD clinic is not full. Being that [place]a lives than [address] [place] to this [place] the expection is that he come here for his pd care if deemed appropriate for pd. In general, veterans can choose to remain [place] the [facility] using their private insurance. However, only has Medicare Part [place] outside of [place] but Medicare Part B is what covers community oupatient dialysis. A consult has been placed for catheter placement surgery here. EZEKIEL attemtped to reach at to discuss the above but receieved vm. EZEKIEL left a message for a return call. /es/ FLORIN Carranza,CONSERVATION WORKER Licensed Clinical Rn Heart Signed: 11/10/2024 14:05 [facility]
--- OUTSIDE RECORDS SUMMARY | 2024-12-05 00:20 | XMS_ITS | Continuity of Care Document ---
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 It does not include entries that were removed or entered in error. 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 [facility] Diabetes Melli W/O Comp Typ Ii Active Condition [facility] Diabetes mellitus type 2 without retinopathy Active Condition [facility] End-stage renal disease Active Condition [facility] Essential hypertension Active Condition [facility] Gout Active Condition [facility] History of adenomatous polyp of colon Active Condition [facility] HTN Active Condition [facility] Hyperlipidemia Active Condition [facility] Hyperlipidemia Unspec Active Condition [facility] Hyperparathyroidism due to renal insufficiency Active Condition [facility] Metabolic acidosis Active Condition [facility] Other Active Condition May 31 Entered By: ERIKA DEE Comment: Hx of Focal segmental glomeruloesclerosis (proteinur./CRI)May 31, 2007 Entered By: ERIKA DEE Comment: LBP [facility] Residual foreign body in soft tissue Active Condition . [facility] Skin eruption Active Condition [facility] Sleep apnea Active Condition [facility] Subacute thyroiditis Active Condition [facility] Superficial incisional surgical site infection Active Condition [facility] Supraventricular tachycardia Active Condition [facility] Therapeutic drug effect Active Condition [facility] Thyroiditis Active Condition [facility] Type II diabetes mellitus uncontrolled Active Condition [facility] Diagnosis: ICD-10-CM J09.X1 Influenza due to ident novel influenza A virus w pneumonia Active Diagnosis [facility] Diagnosis: ICD-10-CM J06.9 Acute upper respiratory infection, unspecified Active Diagnosis [facility] Diagnosis: ICD-10-CM N18.6 End stage renal disease Active Diagnosis [facility] Diagnosis: ICD-10-CM Z71.9 Counseling, unspecified Active Diagnosis [facility] Diagnosis: ICD-10-CM G47.33 Obstructive sleep apnea (adult) (pediatric) Active Diagnosis [facility] Diagnosis: ICD-10-CM G47.30 Sleep apnea, unspecified Active Diagnosis [facility] Diagnosis: ICD-10-CM 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 Diagnosis [facility] Diagnosis: ICD-10-CM H90.3 Sensorineural hearing loss, bilateral Active Diagnosis [facility] Diagnosis: ICD-10-CM N18.9 Chronic kidney disease, unspecified Active Diagnosis [facility] Diagnosis: ICD-10-CM Z51.81 Encounter for therapeutic drug level monitoring Active Diagnosis [facility] Diagnosis: ICD-10-CM P19.9 Metabolic acidemia in , unspecified Active Diagnosis [facility] Diagnosis: ICD-10-CM N18.5 Chronic kidney disease, stage 5 Active Diagnosis [facility] Diagnosis: ICD-10-CM I10 Essential (primary) hypertension Active Diagnosis [facility] Diagnosis: ICD-10-CM I12.0 Hyp chr kidney disease w stage 5 chr kidney disease or ESRD Active Diagnosis [facility] Diagnosis: ICD-10-CM Z71.81 Spiritual or yazidism counseling Active Diagnosis [facility] Admit Reason: GENERALIZED WEAKNESS Active Diagnosis [facility] Diagnosis: ICD-10-CM M62.81 Muscle weakness (generalized) Active Diagnosis [facility] Diagnosis: ICD-10-CM E11.9 Type 2 diabetes mellitus without complications Active Diagnosis [facility] Diagnosis: ICD-10-CM E11.22 Type 2 diabetes mellitus w diabetic chronic kidney disease Active Diagnosis [facility] Diagnosis: ICD-10-CM Z59.6 Low income Active Diagnosis [facility] Diagnosis: ICD-10-CM Z23 Encounter for immunization Active Diagnosis [facility] Diagnosis: ICD-10-CM N25.81 Secondary hyperparathyroidism of renal origin Active Diagnosis [facility] Diagnosis: ICD-10-CM R07.9 Chest pain, unspecified Active Diagnosis [facility] Diagnosis: ICD-10-CM I48.20 Chronic atrial fibrillation, unspecified Active Diagnosis [facility] Diagnosis: ICD-10-CM K56.690 Other partial intestinal obstruction Active Diagnosis [facility] Admit Reason: PANCREATITIS Active Diagnosis [facility] Diagnosis: ICD-10-CM R10.13 Epigastric pain Active Diagnosis [facility] Diagnosis: ICD-10-CM R10.84 Generalized abdominal pain Active Diagnosis [facility] Medications Combined list of outpatient medications from Department of Defense and [facility] facilities.Medications provided include 1) outpatient medications from the last 15 months, and 2) patient-reported medications. Medication Details Route Status Patient Instructions Prescription Expires Prescription Number Last Dispense Date Ordering Provider Order Date Order Qty Source ACETAMINOPH EN 500MG TAB TAKE TWO TABLETS BY MOUTH FOUR TIMES A DAY NEEDED FOR PAIN CAUTION: DO NOT EXCEED 4000MG PER DAY ACETAMIN OPHEN (APAP) FROM ALL MEDS. ORAL ACTIVE 01/01/2025 [id number] NIEVES MUHAMMAD MD [address] [facility] APIXABAN 5MG TAB TAKE ONE TABLET BY MOUTH TWICE A DAY FOR ANTICOAG ULATION ORAL 10/14/2024 [id number] 4 CHOLO RICHARDSON S [address] [facility] ATORVASTATI N CA 80MG TAB TAKE ONE TABLET BY MOUTH EVERY EVENING FOR CHOLESTE ROL. REPORT ANY UNEXPLAI TOMMIE MUSCLE PAIN/WEA KNESS TO PROVIDER . ORAL ACTIVE 12/04/2025 [id number] 5 DEPAULOS UZANNE 2024 90 [facility] ATORVASTATI N CA 80MG TAB TAKE ONE TABLET BY MOUTH EVERY EVENING FOR CHOLESTE ROL. REPORT ANY UNEXPLAI TOMMIE MUSCLE PAIN/WEA KNESS TO PROVIDER . ORAL DISCONT INUED 11/16/2024 [id number] 4 Paulina MARTE UZANNE 2023 90 [facility] ATORVASTATI N CA 80MG TAB TAKE ONE TABLET BY MOUTH EVERY EVENING FOR CHOLESTE ROL. REPORT ANY UNEXPLAI TOMMIE MUSCLE PAIN/WEA KNESS TO PROVIDER . ORAL DISCONT INUED 12/30/2023 [id number] 4 CHACHO VAZQUEZ 2022 90 [facility] CALCITRIOL 0.5MCG CAP TAKE TWO CAPSULES BY MOUTH ONCE A DAY FOR LOW PARATHYR OID HORMONE ORAL DISCONT INUED BY ASHLEY R 01/11/2025 [id number] 4 TATI RAO [address] [facility] CALCITRIOL 0.5MCG CAP TAKE ONE CAPSULE BY MOUTH ONCE A DAY ORAL DISCONT INUED (EDIT) 09/01/2024 [id number] 4 ANDREW FLETCHER [address] [facility] CARVEDILOL 25MG TAB TAKE ONE TABLET BY MOUTH TWICE A DAY FOR HIGH BLOOD PRESSURE TAKE WITH FOOD. ORAL ACTIVE 07/19/2025 [id number] 4 ANDREW FLETCHER [address] [facility] CARVEDILOL 25MG TAB TAKE ONE TABLET BY MOUTH TWICE A DAY FOR HIGH BLOOD PRESSURE TAKE WITH FOOD. ORAL DISCONT INUED 08/31/2024 [id number] 4 ANDREW FLETCHER [address] [facility] CARVEDILOL 25MG TAB TAKE ONE TABLET BY MOUTH TWICE A DAY ORAL ACTIVE NANCY RENTERIA L [address] [facility] FEBUXOSTAT 80MG TAB TAKE ONE-HALF TABLET BY MOUTH ONCE A DAY FOR HYPERURI CEMIA ORAL 11/16/2024 [id number] 4 DEPAULO,S UZANNE 2023 45 [facility] FLUTICASONE PROPIONATE 50MCG/SPRAY SOLN,NASAL, 16GM INSTILL 2 SPRAYS IN NOSTRIL( S) ONCE A DAY (MUST BE USED DIRECTED FOR MINIMUM OF 21 DAYS TO PROVIDE ADEQUATE BENEFITS ) NASAL 08/14/2024 [id number] 4 DEPAULO,S UZANNE 2023 3 [facility] GABAPENTIN 300MG CAP TAKE ONE CAPSULE BY MOUTH THREE TIMES PER WEEK FOR NERVE PAIN TAKE AFTER DIALYSIS ON DIALYSIS DAYS ORAL ACTIVE 10/01/2025 [id number] 4 DEPAULO,S UZANNE 2023 36 [facility] GABAPENTIN 300MG CAP TAKE ONE CAPSULE BY MOUTH THREE TIMES PER WEEK FOR NERVE PAIN ORAL DISCONT INUED 05/17/2025 [id number] 4 DEPAULO,S UZANNE 2023 36 [facility] GABAPENTIN 300MG CAP TAKE ONE CAPSULE BY MOUTH AT BEDTIME NEEDED FOR NERVE PAIN ORAL DISCONT INUED (EDIT) 11/16/2024 [id number] 4 DEPAULO,S UZANNE 2023 90 [facility] GABAPENTIN 600MG TAB TAKE ONE TABLET BY MOUTH AT BEDTIME FOR NERVE PAIN ORAL DISCONT INUED 11/16/2024 [id number] 4 GELYPaulinaZADMITRI 2023 90 [facility] GUAIFENESIN 200MG TAB TAKE ONE TABLET BY MOUTH EVERY 4 HOURS NEEDED FOR MUCUS THINNING TAKE WITH 8 OUNCE GLASS OF WATER. ORAL 02/25/2024 [id number] 4 GLORIAVICKIANDREW ANDERSON NILAM [address] [facility] LEOBARDOIO N INSULIN,ASP ART,HUMAN (EQV-NOVOLO G) 100 UNIT/ML,FLE XPEN,3ML INJECT 10 UNITS UNDER THE SKIN TWO TIMES A DAY BEFORE MEALS FOR BLOOD SUGAR CONTROL. ADMINIST ER 10 MINUTES BEFORE FOOD DIRECTED . REFRIGER ATE UN-OPENE D PENS. DISCARD CARTRIDG E 28 DAYS AFTER OPENING. SUBCUT ANEOUS DISCONT INUED BY PROVIDE R 11/16/2024 [id number] 4 GELY SULEMAN 2023 5 [facility] INSULIN,GLA RGINE-YFGN 100UNIT/ML INJ INJECT 16 UNITS UNDER THE SKIN ONCE A DAY TO CONTROL BLOOD SUGAR. ADMINIST ER AT SAME TIME EACH DAY DIRECTED . DISCARD ANY VIAL 28 DAYS AFTER OPENING. SUBCUT ANEOUS DISCONT INUED BY PROVIDE R 11/16/2024 [id number] 4 Paulina MARTE UZADMITRI 2023 3 [facility] INSULIN,GLA RGINE-YFGN 100UNIT/ML INJ INJECT 16 UNITS UNDER THE SKIN ONCE A DAY TO CONTROL BLOOD SUGAR. ADMINIST ER AT SAME TIME EACH DAY DIRECTED . DISCARD ANY VIAL 28 DAYS AFTER OPENING. SUBCUT ANEOUS DISCONT INUED 11/14/2023 [id number] 3 ISIDRO WEST [address] [facility] LIDOCAINE 2.5%/PRILOC JOHN 2.5% CREAM,TOP APPLY SPARINGL Y TO AFFECTED AREA(S) THREE TIMES PER WEEK FOR LOCAL ANESTHES TIC FOR AVF CANNULAT IO APPLY TO FISTULA SITE AT LEAST 30 MINUTES BEFORE DIALYSIS TREAMENT AND COVER WITH SARAN WRAP APPLY TO FISTULA SITE AT LEAST 30 MINUTES BEFORE DIALYSIS TREAMENT AND COVER WITH SARAN WRAP MADDIE Oh ACTIVE 01/21/2025 [id number] 4 ANDREW FLETCHER [address] [facility] MAGNESIUM OXIDE 400MG TAB TAKE ONE TABLET BY MOUTH ONCE A DAY ORAL ACTIVE 12/04/2025 [id number] 5 Paulina MARTEZAAYDEE 2024 120 [facility] MAGNESIUM OXIDE 400MG TAB TAKE ONE TABLET BY MOUTH ONCE A DAY ORAL DISCONT INUED 11/16/2024 [id number] 4 Paulina MARTEZAAYDEE 2023 120 [facility] MAGNESIUM OXIDE 400MG TAB TAKE ONE TABLET BY MOUTH ONCE A DAY ORAL DISCONT INUED 12/30/2023 [id number] 4 CHACHO VAQZUEZ 2022 120 [facility] NIFEDIPINE (EQV-CC) 90MG TAB,SA TAKE ONE TABLET BY MOUTH ONCE A DAY FOR HEART/BL OOD PRESSURE . PREFERAB LE TO TAKE ON EMPTY STOMACH. SWALLOW WHOLE; DO NOT CRUSH OR CHEW. AVOID GRAPEFRU IT JUICE. ORAL 11/16/2024 [id number] 5 Paulina MARTEZADMITRI 2023 90 [facility] OLOPATADINE HCL 0.2% SOLN,OPH INSTILL 1 DROP IN BOTH EYES ONCE A DAY FOR OCULAR ALLERGIE S, ITCHING OPHTHA LMIC ACTIVE 12/18/2024 [id number] 4 NANNETTE SORIA THI [address] [facility] OMEPRAZOLE 20MG CAP,EC TAKE ONE CAPSULE BY MOUTH EVERY MORNING BEFORE A MEAL TO LOWER STOMACH ACID. TAKE 30 MINUTES PRIOR TO FOOD. ORAL 11/16/2024 [id number] 4 Paulina MARTEZADMITRI 2023 90 [facility] OSELTAMIVIR PO4 30MG CAP TAKE ONE CAPSULE BY MOUTH EVERY OTHER DAY FOR INFLUENZ A INFECTIO N *FINISH ALL MEDICATI ON. TAKE AFTER DIALYSIS SESSIONS ORAL ACTIVE 01/01/2025 [id number] 5 NIEVES MUHAMMAD MD [address] [facility] OXYCODONE HCL 5MG TAB TAKE ONE TABLET BY MOUTH EVERY EIGHT(8) HOURS NEEDED MAY CAUSE CONSTIPA TION ORAL 02/10/2024 [id number] 4 TATI RAO [address] [facility] PEG-400 0.4%/PROPYL ALBAN GLYCOL 0.3% SOLN,OPH INSTILL 1 DROP IN BOTH EYES FOUR TIMES A DAY NEEDED FOR DRY EYE(S) OPHTHA LMIC ACTIVE 12/18/2024 [id number] 4 NANNETTE SORIA THI [address] [facility] RENAL MULTIVIT W/1MG OR LESS FOLIC ACID TAB TAKE 1 TABLET BY MOUTH ONCE A DAY FOR NUTRITIO N/DIETAR Y SUPPLEME NTATION ORAL ACTIVE 01/11/2025 [id number] 4 TATI RAO [address] [facility] SEMAGLUTIDE 1MG/0.75ML INJ,SOLN,PE N,3ML INJECT 1MG UNDER THE SKIN EVERY WEEK FOR DIABETES SUBCUT ANEOUS ACTIVE 09/20/2025 [id number] 5 SUBHA PAUL [address] [facility] SEMAGLUTIDE 1MG/0.75ML INJ,SOLN,PE N,3ML INJECT 1MG UNDER THE SKIN EVERY WEEK FOR DIABETES SUBCUT ANEOUS DISCONT INUED 10/13/2024 [id number] 4 SUBHA PAUL [address] [facility] SODIUM BICARBONATE 650MG TAB TAKE TWO TABLETS BY MOUTH THREE TIMES A DAY FOR STOMACH ACID LOWERING ORAL DISCONT INUED BY ASHLEY R 12/25/2024 [id number] 4 Paulina MARTE 2023 180 [facility] SODIUM BICARBONATE 650MG TAB TAKE TWO TABLETS BY MOUTH THREE TIMES A DAY FOR STOMACH ACID LOWERING ORAL DISCONT INUED 12/14/2023 [id number] VIVIAN BENNETT UN [address] [facility] TAMSULOSIN HCL 0.4MG CAP TAKE ONE CAPSULE BY MOUTH TWICE A DAY FOR BENIGN PROSTATI C HYPERPLA KEN APPROXIM ATELY 30 MINUTES AFTER THE SAME MEAL EACH DAY ORAL ACTIVE 12/25/2024 [id number] 4 Paulina MARTE 2023 180 [facility] Allergies, Adverse Reactions, Alerts Combined list of allergies from Department of Defense and Veterans Affairs facilities. It does not include entries that were removed or entered in error. Substance Category Reaction Severity Reaction type Status Date Reported Comments Source MORPHINE Propensity to adverse reactions to drug (finding) Hallucinati ons, Memory impairment active 8 [facility] Immunizations Combined list of available immunizations from the Department of Defense and Veterans Affairs facilities. Immunization Series Date Given Administered By Site Reaction Lot Number CVX Code Drug Horticultural Specialty Grower Field Status Comments Source COVID-19 (PFIZER), MRNA, LNP-S, PF, KIANA-SUCROSE, 30 MCG/0.3 ML (AGES 12+ YEARS) 2022 JOSH SCHMIDT LEFT DELTO ID [id number] [facility] INFLUENZA, HIGH-DOSE, QUADRIVALENT 2022 JOSH SCHMIDT RIGHT DELTO ID [id number] A [address] [facility] COVID-19, MRNA, LNP-S, BIVALENT BOOSTER, PF, 50 MCG/0.5 ML OR 25MCG/0.25 ML DOSE 1 2021 229 complet ed MOD; [id number]; 3 [facility] INFLUENZA VACCINE, QUADRIVALENT, ADJUVANTED 2021 205 complet ed [facility] COVID-19 (PFIZER), MRNA, LNP-S, PF, 30 MCG/0.3 ML DOSE, KIANA-SUCROSE (AGES 12+ YEARS) 4 2021 217 complet ed PFR; [id number]; 2 [facility] HEP B, ADULT 3 [address] [facility] COVID-19 (MODERNA), MRNA, LNP-S, PF, 100 MCG/0.5 ML DOSE 3 2020 207 complet ed MOD; [id number]; 2 [facility] INFLUENZA VACCINE, QUADRIVALENT, ADJUVANTED [address] [facility] ZOSTER RECOMBINANT 2 [address] [facility] HEP B, ADULT 2 2020 NONE [address] [facility] HEP B, ADULT 1 2020 NONE [address] [facility] ZOSTER RECOMBINANT 1 [address] [facility] COVID-19 (PFIZER), MRNA, LNP-S, PF, 30 MCG/0.3 ML DOSE 2 2020 208 complet ed Lot#: [id number] per database review [facility] COVID-19 (PFIZER), MRNA, LNP-S, PF, 30 MCG/0.3 ML DOSE 1 2020 208 complet ed Lot#: [id number] per database review [facility] INFLUENZA, HIGH DOSE SEASONAL 2019 135 complet ed [facility] INFLUENZA, UNSPECIFIED FORMULATION [address] [facility] INFLUENZA, INJECTABLE, QUADRIVALENT, PRESERVATIVE FREE 2018 150 complet ed [facility] PNEUMOCOCCAL POLYSACCHARID E [id number] 2018 33 complet ed [facility] INFLUENZA, INJECTABLE, QUADRIVALENT, PRESERVATIVE FREE 2017 150 complet ed [facility] PNEUMOCOCCAL CONJUGATE PCV 13 2017 133 complet ed [facility] INFLUENZA, UNSPECIFIED FORMULATION [address] [facility] INFLUENZA, UNSPECIFIED FORMULATION 2017 88 complet ed PT DOES NOT RECALL EXACT DATE. Sumi [facility] CLARISSA Giang TETANUS, DIPHTHERIA & PERTUSSIS (TDAP) (HISTORICAL) 2017 complet ed PT DOES NOT RECALL BUT IT WAS APPROX 11 MONTHS AGO JULIET [facility] TD(ADULT) UNSPECIFIED FORMULATION 2006 NONE 139 complet ed Lt.Deltoi d 0.5cc Lot.#[id number] Exp 12/08/07 [facility] Results Combined list of recent chemistry, hematology and other laboratory results from Department of Defense and Veterans Affairs, ranging from 15 months to all on record, depending upon the facility. Order Name Results Value Reference Range Date Interpretation Specimen Comments Source URINALYS IS W/ CX REFLEX (STL-PB) COLOR OF URINE Colorles s 12/02 Specimen Type: URINE No comment entered. Ordering Provider: SE ROBERT MUHAMMAD MD Report Released Date/Time: Dec 02, 2024 10:33 AM Reporting Lab: [facility] [address] [place] [phone] Performing Lab: [address] [phone] [facility] URINALYS IS W/ CX REFLEX ([facility]-PB) BILIRUBIN. TOTAL [PRESENCE] IN URINE BY TEST STRIP Negative mg/dL 12/02 Specimen Type: URINE No comment entered. Ordering Provider: SE ROBERT MUHAMMAD MD Report Released Date/Time: Dec 02, 2024 10:33 AM Reporting Lab: [facility] [address] [place] [phone] Performing Lab: [address] [phone] [facility] URINALYS IS W/ CX REFLEX (STL-PB) PH OF URINE BY TEST STRIP 7.0 5.0 - 8.0 12/02 Specimen Type: URINE No comment entered. Ordering Provider: SE ROBERT MUHAMMAD MD Report Released Date/Time: Dec 02, 2024 10:33 AM Reporting Lab: [address] [phone] Performing Lab: [place] [address] [facility] [phone] [facility] URINALYS IS W/ CX REFLEX (STL-PB) LEUKOCYTES [#/AREA] IN URINE SEDIMENT BY MICROSCOPY HIGH POWER FIELD 1 /[HPF] 0 - 5 12/02 Specimen Type: URINE No comment entered. Ordering Provider: SE ROBERT MUHAMMAD MD Report Released Date/Time: Dec 02, 2024 10:33 AM Reporting Lab: [place] [address] [facility] [phone] Performing Lab: [place] [address] [facility] [phone] [facility] URINALYS IS W/ CX REFLEX (STL-PB) ERYTHROCYT ES [#/VOLUME] IN URINE SEDIMENT BY MICROSCOPY HIGH POWER FIELD 3 /[HPF] 0 - 5 12/02 Specimen Type: URINE No comment entered. Ordering Provider: SE ROBERT MUHAMMAD MD Report Released Date/Time: Dec 02, 2024 10:33 AM Reporting Lab: [place] [address] [facility] [phone] Performing Lab: [place] [address] [facility] [phone] [facility] URINALYS IS W/ CX REFLEX (STL-PB) APPEARANCE OF URINE Clear 12/02 Specimen Type: URINE No comment entered. Ordering Provider: SE ROBERT MUHAMMAD MD Report Released Date/Time: Dec 02, 2024 10:33 AM Reporting Lab: [place] [address] [facility] [phone] Performing Lab: [address] [phone] [facility] URINALYS IS W/ CX REFLEX (STL-PB) NITRITE [PRESENCE] IN URINE BY TEST STRIP Negative mg/dL 12/02 Specimen Type: URINE No comment entered. Ordering Provider: SE ROBERT MUHAMMAD MD Report Released Date/Time: Dec 02, 2024 10:33 AM Reporting Lab: [place] [address] [facility] [phone] Performing Lab: [place] [address] [place] [phone] URINALYS IS W/ CX REFLEX (STL-PB) EPITHELIAL CELLS [#/AREA] IN URINE SEDIMENT BY MICROSCOPY LOW POWER FIELD <1/[HPF] 0 - 5 12/02 Specimen Type: URINE No comment entered. Ordering Provider: SE ROBERT MUHAMMAD MD Report Released Date/Time: Dec 02, 2024 10:33 AM Reporting Lab: [place] [address] Performing Lab: [place] [address] [facility] [phone] [place] [address] URINALYS IS W/ CX REFLEX (STL-PB) GLUCOSE [MASS/VOLU ME] IN URINE BY TEST STRIP Normalmg /dL 12/02 Specimen Type: URINE No comment entered. Ordering Provider: SE ROBERT MUHAMMAD MD Report Released Date/Time: Dec 02, 2024 10:33 AM Reporting Lab: [address] [phone] Performing Lab: [address] [phone] [place] [address] URINALYS IS W/ CX REFLEX (STL-PB) PROTEIN [MASS/VOLU ME] IN URINE BY TEST STRIP 100 mg/dL 12/02 H Specimen Type: URINE No comment entered. Ordering Provider: SE ROBERT MUHAMMAD MD Report Released Date/Time: Dec 02, 2024 10:33 AM Reporting Lab: [place] [phone] Performing Lab: [place] [address] [facility] [phone] [facility] URINALYS IS W/ CX REFLEX (STL-PB) URN.UROBIL INOGEN Normalmg /dL 12/02 Specimen Type: URINE No comment entered. Ordering Provider: SE ROBERT MUHAMMAD MD Report Released Date/Time: Dec 02, 2024 10:33 AM Reporting Lab: [address] [phone] Performing Lab: [place] [address] [facility] [phone] [facility] URINALYS IS W/ CX REFLEX ([facility]) HEMOGLOBIN [MASS/VOLU ME] IN URINE BY TEST STRIP 1+mg/dL 12/02 H Specimen Type: URINE No comment entered. Ordering Provider: SE ROBERT MUHAMMAD MD Report Released Date/Time: Dec 02, 2024 10:33 AM Reporting Lab: [place] [address] [facility] [phone] Performing Lab: [address] [id number] [place] [address] URINALYS IS W/ CX REFLEX ([facility]) KETONES [MASS/VOLU ME] IN URINE BY TEST STRIP Negative mg/dL 12/02 Specimen Type: URINE No comment entered. Ordering Provider: SE ROBERT MUHAMMAD MD Report Released Date/Time: Dec 02, 2024 10:33 AM Reporting Lab: [place] [address] [facility] [phone] Performing Lab: [address] [phone] [facility] URINALYS IS W/ CX REFLEX ([facility]) URN.LEUK.E ST. Negative mg/dL 12/02 Specimen Type: URINE No comment entered. Ordering Provider: SE ROBERT MUHAMMAD MD Report Released Date/Time: Dec 02, 2024 10:33 AM Reporting Lab: [place] [address] [facility] [phone] Performing Lab: [address] [phone] [facility] [facility] W/ CX REFLEX (STL-PB) SPECIFIC GRAVITY OF URINE 1.010 12/02 Specimen Type: URINE No comment entered. Ordering Provider: SE ROBERT MUHAMMAD MD Report Released Date/Time: Dec 02, 2024 10:33 AM Reporting Lab: [place] [address] [facility] [address] Performing Lab: [place] [id number] APTT APTT IN PLATELET POOR PLASMA BY COAGULATIO N ASSAY 37.8 s 26.7 - 39.9 12/02 Specimen Type: PLASMA No comment entered. Ordering Provider: SE ROBERT MUHAMMAD MD Report Released Date/Time: Dec 02, 2024 10:33 AM Reporting Lab: [place] [address] [facility] [address] Performing Lab: [address] [address] [facility] CBC LEUKOCYTES [#/VOLUME] IN BLOOD BY AUTOMATED COUNT 4.6 10*3/uL 3.6 - 11.2 12/02 Specimen Type: BLOOD No comment entered. Ordering Provider: SE ROBERT MUHAMMAD MD Report Released Date/Time: Dec 02, 2024 10:33 AM Reporting Lab: [place] [address] [facility] [address] Performing Lab: [address] [address] [facility] CBC ERYTHROCYT ES [#/VOLUME] IN BLOOD BY AUTOMATED COUNT 3.71 10*6/uL 4.10 - 5.70 12/02 L Specimen Type: BLOOD No comment entered. Ordering Provider: SE ROBERT MUHAMMAD MD Report Released Date/Time: Dec 02, 2024 10:33 AM Reporting Lab: [place] [address] [facility] [address] Performing Lab: [address] [address] [facility] CBC HEMOGLOBIN [MASS/VOLU ME] IN BLOOD 11.5 g/dL 13.1 - 16.8 12/02 L Specimen Type: BLOOD No comment entered. Ordering Provider: SE ROBERT MUHAMMAD MD Report Released Date/Time: Dec 02, 2024 10:33 AM Reporting Lab: [place] [address] [facility] [address] Performing Lab: [place] [address] [facility] [address] [facility] CBC HEMATOCRIT [VOLUME FRACTION] OF BLOOD 34.1 38.2 - 48.4 12/02 L Specimen Type: BLOOD No comment entered. Ordering Provider: SE ROBERT MUHAMMAD MD Report Released Date/Time: Dec 02, 2024 10:33 AM Reporting Lab: [place] [address] [facility] [address] Performing Lab: [place] [address] [facility] [address] [facility] CBC MCV [ENTITIC VOLUME] BY AUTOMATED COUNT 91.9 fL 80.0 - 100.0 12/02 Specimen Type: BLOOD No comment entered. Ordering Provider: SE ROBERT MUHAMMAD MD Report Released Date/Time: Dec 02, 2024 10:33 AM Reporting Lab: [place] [address] [facility] [address] Performing Lab: [address] [address] [facility] CBC MCH [ENTITIC MASS] BY AUTOMATED COUNT 31.0 pg 27.0 - 34.0 12/02 Specimen Type: BLOOD No comment entered. Ordering Provider: SE ROBERT MUHAMMAD MD Report Released Date/Time: Dec 02, 2024 10:33 AM Reporting Lab: [place] [address] [facility] [address] Performing Lab: [address] [address] [facility] CBC MCHC [MASS/VOLU ME] BY AUTOMATED COUNT 33.7 g/dL 33.0 - 36.0 12/02 Specimen Type: BLOOD No comment entered. Ordering Provider: SE ROBERT MUHAMMAD MD Report Released Date/Time: Dec 02, 2024 10:33 AM Reporting Lab: [place] [address] [facility] [address] Performing Lab: [place] [address] [facility] [address] [facility] CBC PLATELETS [#/VOLUME] IN BLOOD BY AUTOMATED COUNT 184 10*3/uL 150 - 400 12/02 Specimen Type: BLOOD No comment entered. Ordering Provider: SE ROBERT MUHAMMAD MD Report Released Date/Time: Dec 02, 2024 10:33 AM Reporting Lab: [place] [address] [facility] [address] Performing Lab: [place] [address] [facility] [address] [facility] CBC PLATELET MEAN VOLUME [ENTITIC VOLUME] IN BLOOD BY AUTOMATED COUNT 10.9 fL 7.5 - 11.2 12/02 Specimen Type: BLOOD No comment entered. Ordering Provider: SE ROBERT MUHAMMAD MD Report Released Date/Time: Dec 02, 2024 10:33 AM Reporting Lab: [place] [address] [facility] [address] Performing Lab: [address] [address] [facility] CBC ERYTHROCYT E DISTRIBUTI ON WIDTH [RATIO] BY AUTOMATED COUNT 12.3 11.8 - 15.1 12/02 Specimen Type: BLOOD No comment entered. Ordering Provider: SE ROBERT MUHAMMAD MD Report Released Date/Time: Dec 02, 2024 10:33 AM Reporting Lab: [facility] [address] [facility] [address] Performing Lab: [facility] [address] [facility] [address] [facility] CBC LYMPHOCYTE S/100 LEUKOCYTES IN BLOOD BY AUTOMATED COUNT 21 12/02 Specimen Type: BLOOD No comment entered. Ordering Provider: SE ROBERT MUHAMMAD MD Report Released Date/Time: Dec 02, 2024 10:33 AM Reporting Lab: [facility] [address] [facility] [address] Performing Lab: [facility] [address] [facility] [address] [facility] CBC MONOCYTES/ 100 LEUKOCYTES IN BLOOD BY AUTOMATED COUNT 16 12/02 Specimen Type: BLOOD No comment entered. Ordering Provider: SE ROBERT MUHAMMAD MD Report Released Date/Time: Dec 02, 2024 10:33 AM Reporting Lab: [facility] [address] [facility] [address] Performing Lab: [facility] [address] [facility] [address] [facility] CBC NEUTROPHIL S/100 LEUKOCYTES IN BLOOD BY AUTOMATED COUNT 62 12/02 Specimen Type: BLOOD No comment entered. Ordering Provider: SE ROBERT MUHAMMAD MD Report Released Date/Time: Dec 02, 2024 10:33 AM Reporting Lab: [facility] [address] [facility] [address] Performing Lab: [facility] [address] [facility] [address] [facility] CBC EOSINOPHIL S/100 LEUKOCYTES IN BLOOD BY AUTOMATED COUNT 1 12/02 Specimen Type: BLOOD No comment entered. Ordering Provider: SE ROBERT MUHAMMAD MD Report Released Date/Time: Dec 02, 2024 10:33 AM Reporting Lab: [facility] [address] [facility] [address] Performing Lab: [facility] [address] [facility] [address] [facility] CBC BASOPHILS/ 100 LEUKOCYTES IN BLOOD BY AUTOMATED COUNT 0 12/02 Specimen Type: BLOOD No comment entered. Ordering Provider: SE ROBERT MUHAMMAD MD Report Released Date/Time: Dec 02, 2024 10:33 AM Reporting Lab: [place] [address] [facility] [address] Performing Lab: [place] [address] [facility] [address] [facility] CBC LYMPHOCYTE S [#/VOLUME] IN BLOOD BY AUTOMATED COUNT 0.96 10*3/uL 0.77 - 4.50 12/02 Specimen Type: BLOOD No comment entered. Ordering Provider: SE ROBERT MUHAMMAD MD Report Released Date/Time: Dec 02, 2024 10:33 AM Reporting Lab: [place] [address] [facility] [address] Performing Lab: [place] [address] [facility] [address] [facility] CBC MONOCYTES [#/VOLUME] IN BLOOD BY AUTOMATED COUNT 0.71 10*3/uL 0.19 - 0.80 12/02 Specimen Type: BLOOD No comment entered. Ordering Provider: SE ROBERT MUHAMMAD MD Report Released Date/Time: Dec 02, 2024 10:33 AM Reporting Lab: [place] [address] [facility] [address] Performing Lab: [place] [address] [facility] [address] [facility] CBC NEUTROPHIL S [#/VOLUME] IN BLOOD BY AUTOMATED COUNT 2.82 10*3/uL 2.10 - 8.00 12/02 Specimen Type: BLOOD No comment entered. Ordering Provider: SE ROBERT MUHAMMAD MD Report Released Date/Time: Dec 02, 2024 10:33 AM Reporting Lab: [place] [address] [address] [facility] [address] Performing Lab: [place] [address] [facility] [address] [facility] CBC EOSINOPHIL S [#/VOLUME] IN BLOOD BY AUTOMATED COUNT 0.03 10*3/uL 0.00 - 0.60 12/02 Specimen Type: BLOOD No comment entered. Ordering Provider: SE ROBERT MUHAMMAD MD Report Released Date/Time: Dec 02, 2024 10:33 AM Reporting Lab: [place] [address] [facility] [address] Performing Lab: [address] [address] [facility] CBC BASOPHILS [#/VOLUME] IN BLOOD BY AUTOMATED COUNT 0.01 10*3/uL 0.00 - 0.20 12/02 Specimen Type: BLOOD No comment entered. Ordering Provider: SE ROBERT MUHAMMAD MD Report Released Date/Time: Dec 02, 2024 10:33 AM Reporting Lab: [place] [address] [facility] [address] Performing Lab: [place] [address] [facility] [address] [facility] COMPREHE NSIVE METABOLI C PANEL CREATININE [MASS/VOLU ME] IN SERUM OR PLASMA 9.62 mg/dL 0.7 - 1.3 12/02 H Specimen Type: PLASMA Comment: No hemolysis noted. Ordering Provider: SE ROBERT MUHAMMAD MD Report Released Date/Time: Dec 02, 2024 10:33 AM Reporting Lab: [place] [address] [facility] [address] Performing Lab: [address] [address] [facility] COMPREHE NSIVE METABOLI C PANEL UREA NITROGEN [MASS/VOLU ME] IN SERUM OR PLASMA 60.5 mg/dL 9.0 - 25.0 12/02 H Specimen Type: PLASMA Comment: No hemolysis noted. Ordering Provider: SE ROBERT MUHAMMAD MD Report Released Date/Time: Dec 02, 2024 10:33 AM Reporting Lab: [facility] [address] [facility] [address] Performing Lab: [facility] [address] [facility] [address] [facility] COMPREHE NSIVE METABOLI C PANEL GLUCOSE [MASS/VOLU ME] IN SERUM OR PLASMA 123 mg/dL 72 - 99 12/02 H Specimen Type: PLASMA Comment: No hemolysis noted. Ordering Provider: SE ROBERT MUHAMMAD MD Report Released Date/Time: Dec 02, 2024 10:33 AM Reporting Lab: [facility] [address] [facility] [address] Performing Lab: [facility] [address] [facility] [address] [facility] COMPREHE NSIVE METABOLI C PANEL SODIUM [MOLES/VOL UME] IN SERUM OR PLASMA 134 meq/L 136 - 145 12/02 L Specimen Type: PLASMA Comment: No hemolysis noted. Ordering Provider: SE ROBERT MUHAMMAD MD Report Released Date/Time: Dec 02, 2024 10:33 AM Reporting Lab: [facility] [address] [facility] [address] Performing Lab: [facility] [address] [facility] [address] [facility] COMPREHE NSIVE METABOLI C PANEL POTASSIUM [MOLES/VOL UME] IN SERUM OR PLASMA 4.8 meq/L 3.5 - 5 12/02 Specimen Type: PLASMA Comment: No hemolysis noted. Ordering Provider: SE ROBERT MUHAMMAD MD Report Released Date/Time: Dec 02, 2024 10:33 AM Reporting Lab: [facility] [address] [facility] [address] Performing Lab: [facility] [address] [facility] [address] [facility] COMPREHE NSIVE METABOLI C PANEL CHLORIDE [MOLES/VOL UME] IN SERUM OR PLASMA 101 meq/L 98 - 107 12/02 Specimen Type: PLASMA Comment: No hemolysis noted. Ordering Provider: SE ROBERT MUHAMMAD MD Report Released Date/Time: Dec 02, 2024 10:33 AM Reporting Lab: [place] [address] [address] [facility] [address] Performing Lab: [place] [address] [facility] [address] [facility] COMPREHE NSIVE METABOLI C PANEL CARBON DIOXIDE, TOTAL [MOLES/VOL UME] IN SERUM OR PLASMA 21 meq/L 22 - 31 12/02 L Specimen Type: PLASMA Comment: No hemolysis noted. Ordering Provider: SE ROBERT MUHAMMAD MD Report Released Date/Time: Dec 02, 2024 10:33 AM Reporting Lab: [place] [address] [facility] [address] Performing Lab: [place] [address] [address] [facility] [address] [facility] COMPREHE NSIVE METABOLI C PANEL CALCIUM [MASS/VOLU ME] IN SERUM OR PLASMA 9.0 mg/dL 8.4 - 10.4 12/02 Specimen Type: PLASMA Comment: No hemolysis noted. Ordering Provider: SE ROBERT MUHAMMAD MD Report Released Date/Time: Dec 02, 2024 10:33 AM Reporting Lab: [place] [address] [address] [facility] [address] Performing Lab: [place] [address] [address] [facility] [address] [facility] COMPREHE NSIVE METABOLI C PANEL PROTEIN [MASS/VOLU ME] IN SERUM OR PLASMA 7.5 g/dL 6 - 8.6 12/02 Specimen Type: PLASMA Comment: No hemolysis noted. Ordering Provider: SE ROBERT MUHAMMAD MD Report Released Date/Time: Dec 02, 2024 10:33 AM Reporting Lab: [place] [address] [address] [facility] [address] Performing Lab: [place] [id number] [facility] [address] [facility] COMPREHE NSIVE METABOLI C PANEL ALBUMIN [MASS/VOLU ME] IN SERUM OR PLASMA 4.0 g/dL 3.4 - 5 12/02 Specimen Type: PLASMA Comment: No hemolysis noted. Ordering Provider: SE ROBERT MUHAMMAD MD Report Released Date/Time: Dec 02, 2024 10:33 AM Reporting Lab: [place] [address] [address] [facility] [address] Performing Lab: [place] [address] [facility] [address] [facility] COMPREHE NSIVE METABOLI C PANEL BILIRUBIN. TOTAL [MASS/VOLU ME] IN SERUM OR PLASMA 0.6 mg/dL 0.2 - 1.2 12/02 Specimen Type: PLASMA Comment: No hemolysis noted. Ordering Provider: SE ROBERT MUHAMMAD MD Report Released Date/Time: Dec 02, 2024 10:33 AM Reporting Lab: [place] [address] [address] [facility] [address] Performing Lab: [place] [address] [facility] [address] [facility] COMPREHE NSIVE METABOLI C PANEL ALKALINE PHOSPHATAS E [ENZYMATIC ACTIVITY/V OLUME] IN SERUM OR PLASMA 119 U/L 40 - 150 12/02 Specimen Type: PLASMA Comment: No hemolysis noted. Ordering Provider: SE ROBERT MUHAMAMD MD Report Released Date/Time: Dec 02, 2024 10:33 AM Reporting Lab: [place] [address] [address] [facility] [address] Performing Lab: [place] [address] [facility] [address] [facility] COMPREHE NSIVE METABOLI C PANEL ASPARTATE AMINOTRANS FERASE [ENZYMATIC ACTIVITY/V OLUME] IN SERUM OR PLASMA 33 U/L 5 - 34 12/02 Specimen Type: PLASMA Comment: No hemolysis noted. Ordering Provider: SE ROBERT MUHAMMAD MD Report Released Date/Time: Dec 02, 2024 10:33 AM Reporting Lab: [place] [id number] Performing Lab: [place] [address] [facility] [address] [facility] COMPREHE NSIVE METABOLI C PANEL ALANINE AMINOTRANS FERASE [ENZYMATIC ACTIVITY/V OLUME] IN SERUM OR PLASMA 50 U/L 8 - 40 12/02 H Specimen Type: PLASMA Comment: No hemolysis noted. Ordering Provider: SE ROBERT MUHAMMAD MD Report Released Date/Time: Dec 02, 2024 10:33 AM Reporting Lab: [place] [address] Performing Lab: [place] [address] [place] [id number] [place] [address] COMPREHE NSIVE METABOLI C PANEL GLOMERULAR FILTRATION RATE/1.73 SQ M.PREDICTE D [VOLUME RATE/AREA] IN SERUM, PLASMA OR BLOOD BY CREATININE -BASED FORMULA (CKD-EPI 2020) 5.4 60 12/02 LL Specimen Type: PLASMA Comment: No hemolysis noted. Ordering Provider: SE ROBERT MUHAMMAD MD Report Released Date/Time: Dec 02, 2024 10:33 AM Reporting Lab: [place] [phone] Performing Lab: [place] [id number] COVID-19 DIAGNOST IC (FLU/RSV )(STL) INFLUENZA VIRUS A AG [PRESENCE] IN NASOPHARYN X POSITIVE 12/02 Specimen Type: NASOPHARYNX Comment: INFLUENZA A CALLED TO JORGE HANKINS RN [id number] ac Ordering Provider: SE ROBERT MUHAMMAD MD Report Released Date/Time: Dec 02, 2024 10:33 AM Reporting Lab: [place] [phone] Performing Lab: [address] [place] [address] [facility] COVID-19 DIAGNOST IC (FLU/RSV )(STL) INFLUENZA B NEGATIVE 12/02 Specimen Type: NASOPHARYNX Comment: INFLUENZA A CALLED TO JORGE HANKINS RN [phone] Ordering Provider: SE ROBERT MUHAMMAD MD Report Released Date/Time: Dec 02, 2024 10:33 AM Reporting Lab: [address] [address] Performing Lab: [place] [address] [facility] [address] [facility] COVID-19 DIAGNOST IC (FLU/RSV )(STL) SARS-COV-2 (COVID-19) RNA [PRESENCE] IN RESPIRATOR Y SYSTEM SPECIMEN BY ARNOL WITH PROBE DETECTION NEGATIVE 12/02 Specimen Type: NASOPHARYNX Comment: INFLUENZA A CALLED TO JORGE HANKINS RN [phone] Ordering Provider: SE ROBERT MUHAMMAD MD Report Released Date/Time: Dec 02, 2024 10:33 AM Reporting Lab: [address] [address] Performing Lab: [address] [address] [facility] COVID-19 DIAGNOST IC (FLU/RSV )(STL) SARS-COV-2 (COVID-19) RNA [PRESENCE] IN RESPIRATOR Y SYSTEM SPECIMEN BY ARNOL WITH PROBE DETECTION Not Detected 12/02 Specimen Type: NASOPHARYNX Comment: INFLUENZA A CALLED TO JORGE HANKINS RN [phone] ac Ordering Provider: SE ROBERT MUHAMMAD MD Report Released Date/Time: Dec 02, 2024 10:33 AM Reporting Lab: [address] [address] Performing Lab: [address] [address] [facility] COVID-19 DIAGNOST IC (FLU/RSV )(STL) RESPIRATOR Y SYNCYTIAL VIRUS RNA [PRESENCE] IN RESPIRATOR Y SYSTEM SPECIMEN BY ARNOL WITH PROBE DETECTION NEGATIVE 12/02 Specimen Type: NASOPHARYNX Comment: INFLUENZA A CALLED TO JORGE HANKINS RN [phone] Ordering Provider: SE ROBERT MUHAMMAD MD Report Released Date/Time: Dec 02, 2024 10:33 AM Reporting Lab: [place] [address] [facility] [address] Performing Lab: [place] [address] [facility] [address] [facility] LIPASE LIPASE [ENZYMATIC ACTIVITY/V OLUME] IN SERUM OR PLASMA 198 U/L 8 - 78 12/02 H Specimen Type: PLASMA Comment: No hemolysis noted. Ordering Provider: SE ROBERT MUHAMMAD MD Report Released Date/Time: Dec 02, 2024 10:33 AM Reporting Lab: [place] [address] [facility] [address] Performing Lab: [place] [address] [facility] [address] [facility] LIPASE LIPASE [ENZYMATIC ACTIVITY/V OLUME] IN SERUM OR PLASMA 201 U/L 8 12/02 H Specimen Type: PLASMA No comment entered. Ordering Provider: SE ROBERT MUHAMMAD MD Report Released Date/Time: Dec 02, 2024 10:59 AM Reporting Lab: [place] [address] [facility] [address] Performing Lab: [place] [address] [facility] [address] [facility] PT/INR NEW (STL-MA) PROTHROMBI N TIME (PT) 14.4 s 9.4 - 12.5 12/02 H Specimen Type: PLASMA No comment entered. Ordering Provider: SE ROBERT MUHAMMAD MD Report Released Date/Time: Dec 02, 2024 10:33 AM Reporting Lab: [place] [address] [facility] [address] Performing Lab: [place] [address] [facility] [address] [facility] PT/INR NEW ([facility]) INR IN PLATELET POOR PLASMA BY COAGULATIO N ASSAY 1.3 {INR} 12/02 Specimen Type: PLASMA No comment entered. Ordering Provider: SE ROBERT MUHAMMAD MD Report Released Date/Time: Dec 02, 2024 10:33 AM Reporting Lab: [facility] [address] [facility] [address] Performing Lab: [facility] [address] [facility] [address] [facility] RESPIRAT ORY PCR PANEL ADENOVIRUS DNA [PRESENCE] IN NASOPHARYN X BY ARNOL WITH NON-PROBE DETECTION Not Detected 12/02 Specimen Type: NASOPHARYNX Comment: [id number] Alert sent : Flu A typing only. The [employer] RP Panel combines nested multiplex PCR and DNA melting analysis for the simultaneou s qualitative detection and identificat ion of multiple respiratory viral and bacterial nucleic acids. A negative result does not preclude infection with the agent(s) tested and should not be used as the sole basis for treatment or other patient management decisions. Detection of organism target(s) does not imply that the correspondi ng organisms are infectious or are the causative agents for clinical symptoms. Results from this test must be correlated with the clinical history, epidemiolog ical data, and other data available to the clinician evaluating the patient. Rylan KOEHLER, ([phone]) Ordering Provider: AGUS PURCELL Report Released Date/Time: Dec 02, 2024 11:50 AM Reporting Lab: [facility] [address] [facility] [address] Performing Lab: [facility] [address] [facility] [address] [facility] RESPIRAT ORY PCR PANEL HUMAN CORONAVIRU S HKU1 RNA [PRESENCE] IN NASOPHARYN X BY ARNOL WITH NON-PROBE DETECTION Not Detected 12/02 Specimen Type: NASOPHARYNX Comment: [id number] Alert sent : Flu A typing only. The [employer] RP Panel combines nested multiplex PCR and DNA melting analysis for the simultaneou s qualitative detection and identificat ion of multiple respiratory viral and bacterial nucleic acids. A negative result does not preclude infection with the agent(s) tested and should not be used as the sole basis for treatment or other patient management decisions. Detection of organism target(s) does not imply that the correspondi ng organisms are infectious or are the causative agents for clinical symptoms. Results from this test must be correlated with the clinical history, epidemiolog ical data, and other data available to the clinician evaluating the patient. Rylan KOEHLER ([phone]) Ordering Provider: AGUS PURCELL Report Released Date/Time: Dec 02, 2024 11:50 AM Reporting Lab: [facility] [address] [facility] [address] Performing Lab: [facility] [address] [facility] [address] [facility] RESPIRAT ORY PCR PANEL HUMAN CORONAVIRU S NL63 RNA [PRESENCE] IN NASOPHARYN X BY ARNOL WITH NON-PROBE DETECTION Not Detected 12/02 Specimen Type: NASOPHARYNX Comment: PCR_INFV_A_ H1_2009 Alert sent : Flu A typing only. The [employer]Array RP Panel combines nested multiplex PCR and DNA melting analysis for the simultaneou s qualitative detection and identificat ion of multiple respiratory viral and bacterial nucleic acids. A negative result does not preclude infection with the agent(s) tested and should not be used as the sole basis for treatment or other patient management decisions. Detection of organism target(s) does not imply that the correspondi ng organisms are infectious or are the causative agents for clinical symptoms. Results from this test must be correlated with the clinical history, epidemiolog ical data, and other data available to the clinician evaluating the patient. Rylan KOEHLER ([id number]) Ordering Provider: AGUS PURCELL Report Released Date/Time: Dec 02, 2024 11:50 AM Reporting Lab: [facility] [address] [facility] [id number] Performing Lab: [facility] [address] [id number] [facility] RESPIRAT ORY PCR PANEL HUMAN CORONAVIRU S 229E RNA [PRESENCE] IN NASOPHARYN X BY ARNOL WITH NON-PROBE DETECTION Not Detected 12/02 Specimen Type: NASOPHARYNX Comment: PCR_INFV_A_ [id number] Alert sent : Flu A typing only. The FilmArray RP Panel combines nested multiplex PCR and DNA melting analysis for the simultaneou s qualitative detection and identificat ion of multiple respiratory viral and bacterial nucleic acids. A negative result does not preclude infection with the agent(s) tested and should not be used as the sole basis for treatment or other patient management decisions. Detection of organism target(s) does not imply that the correspondi ng organisms are infectious or are the causative agents for clinical symptoms. Results from this test must be correlated with the clinical history, epidemiolog ical data, and other data available to the clinician evaluating the patient. [employer] Jesusita, [phone]) Ordering Provider: AGUS PURCELL Report Released Date/Time: Dec 02, 2024 11:50 AM Reporting Lab: [place] [address] [address] [place] [address] Performing Lab: [address] RESPIRAT ORY PCR PANEL HUMAN CORONAVIRU S OC43 RNA [PRESENCE] IN NASOPHARYN X BY ARNOL WITH NON-PROBE DETECTION Not Detected 12/02 Specimen Type: NASOPHARYNX Comment: PCR_INFV_A_ H1_2009 Alert sent : Flu A typing only. The [employer] RP Panel combines nested multiplex PCR and DNA melting analysis for the simultaneou s qualitative detection and identificat ion of multiple respiratory viral and bacterial nucleic acids. A negative result does not preclude infection with the agent(s) tested and should not be used as the sole basis for treatment or other patient management decisions. Detection of organism target(s) does not imply that the correspondi ng organisms are infectious or are the causative agents for clinical symptoms. Results from this test must be correlated with the clinical history, epidemiolog ical data, and other data available to the clinician evaluating the patient. [employer] Jesusita, ([phone]) Ordering Provider: AGUS PURCELL Report Released Date/Time: Dec 02, 2024 11:50 AM Reporting Lab: [address] [address] Performing Lab: [place] [address] [facility] [address] [facility] RESPIRAT ORY PCR PANEL HUMAN METAPNEUMO VIRUS RNA [PRESENCE] IN NASOPHARYN X BY ARNOL WITH NON-PROBE DETECTION Not Detected 12/02 Specimen Type: NASOPHARYNX Comment: PCR_INFV_A_ H1_2009 Alert sent : Flu A typing only. The Film[employer] RP Panel combines nested multiplex PCR and DNA melting analysis for the simultaneou s qualitative detection and identificat ion of multiple respiratory viral and bacterial nucleic acids. A negative result does not preclude infection with the agent(s) tested and should not be used as the sole basis for treatment or other patient management decisions. Detection of organism target(s) does not imply that the correspondi ng organisms are infectious or are the causative agents for clinical symptoms. Results from this test must be correlated with the clinical history, epidemiolog ical data, and other data available to the clinician evaluating the patient. Rylan KOEHLER ([phone]) Ordering Provider: AGUS PURCELL Report Released Date/Time: Dec 02, 2024 11:50 AM Reporting Lab: [place] [address] [facility] [address] Performing Lab: [place] [address] [facility] [address] [facility] RESPIRAT ORY PCR PANEL RHINOVIRUS +ENTEROVIR US RNA [PRESENCE] IN NASOPHARYN X BY ARNOL WITH NON-PROBE DETECTION Not Detected 12/02 Specimen Type: NASOPHARYNX Comment: PCR_INFV_A_ H1_2009 Alert sent : Flu A typing only. The Film[employer] RP Panel combines nested multiplex PCR and DNA melting analysis for the simultaneou s qualitative detection and identificat ion of multiple respiratory viral and bacterial nucleic acids. A negative result does not preclude infection with the agent(s) tested and should not be used as the sole basis for treatment or other patient management decisions. Detection of organism target(s) does not imply that the correspondi ng organisms are infectious or are the causative agents for clinical symptoms. Results from this test must be correlated with the clinical history, epidemiolog ical data, and other data available to the clinician evaluating the patient. [employer] Jesusita, ([phone]) Ordering Provider: AGUS PURCELL Report Released Date/Time: Dec 02, 2024 11:50 AM Reporting Lab: [facility] [address] [facility] [address] Performing Lab: [place] [address] [facility] [address] [facility] RESPIRAT ORY PCR PANEL INFLUENZA VIRUS A H1 2009 PANDEMIC RNA [PRESENCE] IN NASOPHARYN X BY ARNOL WITH NON-PROBE DETECTION DETECTED 12/02 H Specimen Type: NASOPHARYNX Comment: PCR_INFV_A_ H1_2008 Alert sent : Flu A typing only. The [employer] RP Panel combines nested multiplex PCR and DNA melting analysis for the simultaneou s qualitative detection and identificat ion of multiple respiratory viral and bacterial nucleic acids. A negative result does not preclude infection with the agent(s) tested and should not be used as the sole basis for treatment or other patient management decisions. Detection of organism target(s) does not imply that the correspondi ng organisms are infectious or are the causative agents for clinical symptoms. Results from this test must be correlated with the clinical history, epidemiolog ical data, and other data available to the clinician evaluating the patient. [employer], () Ordering Provider: AGUS PURCELL Report Released Date/Time: Dec 02, 2024 11:50 AM Reporting Lab: [facility] [address] [facility] [address] Performing Lab: [place] [address] [facility] [address] [facility] RESPIRAT ORY PCR PANEL INFLUENZA VIRUS B RNA [PRESENCE] IN NASOPHARYN X BY ARNOL WITH NON-PROBE DETECTION Not Detected 12/02 Specimen Type: NASOPHARYNX Comment: PCR_INFV_A_ H1_2009 Alert sent : Flu A typing only. The Film[employer] RP Panel combines nested multiplex PCR and DNA melting analysis for the simultaneou s qualitative detection and identificat ion of multiple respiratory viral and bacterial nucleic acids. A negative result does not preclude infection with the agent(s) tested and should not be used as the sole basis for treatment or other patient management decisions. Detection of organism target(s) does not imply that the correspondi ng organisms are infectious or are the causative agents for clinical symptoms. Results from this test must be correlated with the clinical history, epidemiolog ical data, and other data available to the clinician evaluating the patient. Rylan KOEHLER, ([phone]) Ordering Provider: AGUS PURCELL Report Released Date/Time: Dec 02, 2024 11:50 AM Reporting Lab: [address] [address] Performing Lab: [address] [address] [facility] RESPIRAT ORY PCR PANEL PARAINFLUE NZA VIRUS 1 RNA [PRESENCE] IN NASOPHARYN X BY ARNOL WITH NON-PROBE DETECTION Not Detected 12/02 Specimen Type: NASOPHARYNX Comment: PCR_INFV_A_ H1_2009 Alert sent : Flu A typing only. The [employer] RP Panel combines nested multiplex PCR and DNA melting analysis for the simultaneou s qualitative detection and identificat ion of multiple respiratory viral and bacterial nucleic acids. A negative result does not preclude infection with the agent(s) tested and should not be used as the sole basis for treatment or other patient management decisions. Detection of organism target(s) does not imply that the correspondi ng organisms are infectious or are the causative agents for clinical symptoms. Results from this test must be correlated with the clinical history, epidemiolog ical data, and other data available to the clinician evaluating the patient. Rylan KOEHLER, ([phone]) Ordering Provider: AGUS PURCELL Report Released Date/Time: Dec 02, 2024 11:50 AM Reporting Lab: [address] [address] Performing Lab: [place] [address] [facility] [address] [facility] RESPIRAT ORY PCR PANEL PARAINFLUE NZA VIRUS 2 RNA [PRESENCE] IN NASOPHARYN X BY ARNOL WITH NON-PROBE DETECTION Not Detected 12/02 Specimen Type: NASOPHARYNX Comment: PCR_INFV_A_ H1_2009 Alert sent : Flu A typing only. The [employer] RP Panel combines nested multiplex PCR and DNA melting analysis for the simultaneou s qualitative detection and identificat ion of multiple respiratory viral and bacterial nucleic acids. A negative result does not preclude infection with the agent(s) tested and should not be used as the sole basis for treatment or other patient management decisions. Detection of organism target(s) does not imply that the correspondi ng organisms are infectious or are the causative agents for clinical symptoms. Results from this test must be correlated with the clinical history, epidemiolog ical data, and other data available to the clinician evaluating the patient. [employer] WE[employer], ([phone]) Ordering Provider: AGUS PURCELL Report Released Date/Time: Dec 02, 2024 11:50 AM Reporting Lab: [address] [address] Performing Lab: [phone] [place] [address] RESPIRAT OR PCR PANEL PARAINFLUE NZA VIRUS 3 RNA [PRESENCE] IN NASOPHARYN X BY ARNOL WITH NON-PROBE DETECTION Not Detected 12/02 Specimen Type: NASOPHARYNX Comment: PCR_INFV_A_ H1_2009 Alert sent : Flu A typing only. The [employer] RP Panel combines nested multiplex PCR and DNA melting analysis for the simultaneou s qualitative detection and identificat ion of multiple respiratory viral and bacterial nucleic acids. A negative result does not preclude infection with the agent(s) tested and should not be used as the sole basis for treatment or other patient management decisions. Detection of organism target(s) does not imply that the correspondi ng organisms are infectious or are the causative agents for clinical symptoms. Results from this test must be correlated with the clinical history, epidemiolog ical data, and other data available to the clinician evaluating the patient. Rylan KOEHLER, ([phone]) Ordering Provider: AGUS PURCELL Report Released Date/Time: Dec 02, 2024 11:50 AM Reporting Lab: [place] [address] [facility] [address] Performing Lab: [place] [address] [facility] [address] [facility] RESPIRAT ORY PCR PANEL PARAINFLUE NZA VIRUS 4 RNA [PRESENCE] IN NASOPHARYN X BY ARNOL WITH NON-PROBE DETECTION Not Detected 12/02 Specimen Type: NASOPHARYNX Comment: PCR_INFV_A_ H1_2009 Alert sent : Flu A typing only. The [employer] RP Panel combines nested multiplex PCR and DNA melting analysis for the simultaneou s qualitative detection and identificat ion of multiple respiratory viral and bacterial nucleic acids. A negative result does not preclude infection with the agent(s) tested and should not be used as the sole basis for treatment or other patient management decisions. Detection of organism target(s) does not imply that the correspondi ng organisms are infectious or are the causative agents for clinical symptoms. Results from this test must be correlated with the clinical history, epidemiolog ical data, and other data available to the clinician evaluating the patient. Rylan KOEHLER, ([phone]) Ordering Provider: AGUS PURCELL Report Released Date/Time: Dec 02, 2024 11:50 AM Reporting Lab: [place] [address] [facility] [address] Performing Lab: [place] [address] [facility] [address] [facility] RESPIRAT ORY PCR PANEL RESPIRATOR Y SYNCYTIAL VIRUS RNA [PRESENCE] IN NASOPHARYN X BY ARNOL WITH NON-PROBE DETECTION Not Detected 12/02 Specimen Type: NASOPHARYNX Comment: PCR_INFV_A_ H1_2009 Alert sent : Flu A typing only. The FilmArray RP Panel combines nested multiplex PCR and DNA melting analysis for the simultaneou s qualitative detection and identificat ion of multiple respiratory viral and bacterial nucleic acids. A negative result does not preclude infection with the agent(s) tested and should not be used as the sole basis for treatment or other patient management decisions. Detection of organism target(s) does not imply that the correspondi ng organisms are infectious or are the causative agents for clinical symptoms. Results from this test must be correlated with the clinical history, epidemiolog ical data, and other data available to the clinician evaluating the patient. [employer] Jesusita, ([phone]) Ordering Provider: AGUS PURCELL Report Released Date/Time: Dec 02, 2024 11:50 AM Reporting Lab: [facility] [address] [facility] [address] Performing Lab: [place] [address] [facility] [address] [facility] RESPIRAT ORY PCR PANEL BORDETELLA PERTUSSIS. PERTUSSIS TOXIN PROMOTER REGION [PRESENCE] IN NASOPHARYN X BY ARNOL WITH NON-PROBE DETECTION Not Detected 12/02 Specimen Type: NASOPHARYNX Comment: PCR_INFV_A_ H1_2009 Alert sent : Flu A typing only. The [employer] RP Panel combines nested multiplex PCR and DNA melting analysis for the simultaneou s qualitative detection and identificat ion of multiple respiratory viral and bacterial nucleic acids. A negative result does not preclude infection with the agent(s) tested and should not be used as the sole basis for treatment or other patient management decisions. Detection of organism target(s) does not imply that the correspondi ng organisms are infectious or are the causative agents for clinical symptoms. Results from this test must be correlated with the clinical history, epidemiolog ical data, and other data available to the clinician evaluating the patient. [employer] Jesusita, ([phone]) Ordering Provider: AGUS PURCELL Report Released Date/Time: Dec 02, 2024 11:50 AM Reporting Lab: [facility] [address] [facility] [address] Performing Lab: [facility] [address] [facility] [address] [facility] RESPIRAT ORY PCR PANEL CHLAMYDOPH RICHIE PNEUMONIAE DNA [PRESENCE] IN NASOPHARYN X BY ARNOL WITH NON-PROBE DETECTION Not Detected 12/02 Specimen Type: NASOPHARYNX Comment: PCR_INFV_A_ H1_2009 Alert sent : Flu A typing only. The [employer] RP Panel combines nested multiplex PCR and DNA melting analysis for the simultaneou s qualitative detection and identificat ion of multiple respiratory viral and bacterial nucleic acids. A negative result does not preclude infection with the agent(s) tested and should not be used as the sole basis for treatment or other patient management decisions. Detection of organism target(s) does not imply that the correspondi ng organisms are infectious or are the causative agents for clinical symptoms. Results from this test must be correlated with the clinical history, epidemiolog ical data, and other data available to the clinician evaluating the patient. [employer] HealthRylan WEBSTER ([phone]) Ordering Provider: AGUS PURCELL Report Released Date/Time: Dec 02, 2024 11:50 AM Reporting Lab: [address] [address] Performing Lab: [address] [address] [facility] RESPIRAT ORY PCR PANEL MYCOPLASMA PNEUMONIAE DNA [PRESENCE] IN NASOPHARYN X BY ARNOL WITH NON-PROBE DETECTION Not Detected 12/02 Specimen Type: NASOPHARYNX Comment: PCR_INFV_A_ H1_2009 Alert sent : Flu A typing only. The [employer] RP Panel combines nested multiplex PCR and DNA melting analysis for the simultaneou s qualitative detection and identificat ion of multiple respiratory viral and bacterial nucleic acids. A negative result does not preclude infection with the agent(s) tested and should not be used as the sole basis for treatment or other patient management decisions. Detection of organism target(s) does not imply that the correspondi ng organisms are infectious or are the causative agents for clinical symptoms. Results from this test must be correlated with the clinical history, epidemiolog ical data, and other data available to the clinician evaluating the patient. [employer] HealthRylan WEBSTER, ([phone]) Ordering Provider: AGUS PURCELL Report Released Date/Time: Dec 02, 2024 11:50 AM Reporting Lab: [address] [address] Performing Lab: [address] [address] [facility] RESPIRAT ORY PCR PANEL BORDETELLA PARAPERTUS SIS [id number] DNA [PRESENCE] IN NASOPHARYN X BY ARNOL WITH NON-PROBE DETECTION Not Detected 12/02 Specimen Type: NASOPHARYNX Comment: PCR_INFV_A_ H1_2009 Alert sent : Flu A typing only. The [employer] RP Panel combines nested multiplex PCR and DNA melting analysis for the simultaneou s qualitative detection and identificat ion of multiple respiratory viral and bacterial nucleic acids. A negative result does not preclude infection with the agent(s) tested and should not be used as the sole basis for treatment or other patient management decisions. Detection of organism target(s) does not imply that the correspondi ng organisms are infectious or are the causative agents for clinical symptoms. Results from this test must be correlated with the clinical history, epidemiolog ical data, and other data available to the clinician evaluating the patient. [employer] Jesusita, ([phone]) Ordering Provider: AGUS PURCELL Report Released Date/Time: Dec 02, 2024 11:50 AM Reporting Lab: [address] [address] Performing Lab: [address] [address] [facility] RESPIRAT ORY PCR PANEL SARS-COV-2 (COVID-19) RNA [PRESENCE] IN NASOPHARYN X BY ARNOL WITH NON-PROBE DETECTION Not Detected 12/02 Specimen Type: NASOPHARYNX Comment: PCR_INFV_A_ H1_2008 Alert sent : Flu A typing only. The [employer] RP Panel combines nested multiplex PCR and DNA melting analysis for the simultaneou s qualitative detection and identificat ion of multiple respiratory viral and bacterial nucleic acids. A negative result does not preclude infection with the agent(s) tested and should not be used as the sole basis for treatment or other patient management decisions. Detection of organism target(s) does not imply that the correspondi ng organisms are infectious or are the causative agents for clinical symptoms. Results from this test must be correlated with the clinical history, epidemiolog ical data, and other data available to the clinician evaluating the patient. Rylan KOEHLER, ([phone]) Ordering Provider: AGUS PURCELL Report Released Date/Time: Dec 02, 2024 11:50 AM Reporting Lab: [place] [address] [facility] [address] Performing Lab: [address] [address] [facility] TROPONIN I TROPONIN I.CARDIAC [MASS/VOLU ME] IN SERUM OR PLASMA 0.058 ng/mL 0 - 0.033 12/02 H Specimen Type: PLASMA No comment entered. Ordering Provider: SE ROBERT MUHAMMAD MD Report Released Date/Time: Dec 02, 2024 10:54 AM Reporting Lab: [place] [address] [facility] [address] Performing Lab: [address] [address] [facility] Vital Signs Combined list of inpatient and outpatient Vital Signs from Department of Defense and Veterans Affairs, ranging from 12 months to all on record, depending upon the facility. Vital Sign Value Date Comments Source SYSTOLIC BLOOD PRESSURE 157 12/02/2024 10:30:00 [facility] DIASTOLIC BLOOD PRESSURE 78 12/02/2024 10:30:00 [facility] PAIN 8 12/02/2024 10:30:00 [facility] TEMPERATURE 98.1 12/02/2024 10:30:00 [facility] PULSE 63 12/02/2024 10:30:00 [facility] RESPIRATION 18 12/02/2024 10:30:00 [facility] SYSTOLIC BLOOD PRESSURE 116 05/16/2024 14:10:19 [facility] DIASTOLIC BLOOD PRESSURE 64 05/16/2024 14:10:19 [facility] PULSE OXIMETRY 97 05/16/2024 14:10:19 S Brigitte COONEY [facility] WEIGHT 226.8 05/16/2024 14:10:19 [facility] BMI 34 kg/m2 05/16/2024 14:10:19 [facility] [place] [facility] PAIN 0 05/16/2024 14:10:19 [facility] [place] [facility] TEMPERATURE 97.6 05/16/2024 14:10:19 IVET [facility] PULSE 61 05/16/2024 14:10:19 [facility] [place] [facility] RESPIRATION 18 05/16/2024 14[facility]10:[facility] SYSTOLIC BLOOD PRESSURE 148 02/11/2024 14:52:46 [facility] DIASTOLIC BLOOD PRESSURE 66 02/11/2024 14:52:46 [facility] WEIGHT 226.64 02/11/2024 14:52:46 [facility] BMI 34 kg/m2 02/11/2024 14:52:46 [facility] TEMPERATURE 98.3 02/11/2024 14:52:46 [facility] PULSE 58 02/11/2024 14:52:46 [facility] RESPIRATION 18 02/11/2024 14:52:46 [facility] SYSTOLIC BLOOD PRESSURE 136 01/21/2024 14:28:06 [facility] DIASTOLIC BLOOD PRESSURE 75 01/21/2024 14:28:06 [facility] WEIGHT 226.64 01/21/2024 14:28:06 [facility] BMI 34 kg/m2 01/21/2024 14:28:06 [facility] TEMPERATURE 97.5 01/21/2024 14:28:06 [facility] PULSE 57 01/21/2024 14:28:06 [facility] PAIN 5 01/11/2024 00:02:02 [facility] Encounters Combined list of: 1) Encounters from Department of [facility] Affairs facilities going backup to the last 18 months, not all [facility] inpatient encounters are included; 2) Encounters from the Department of [facility] facilities going backup to 280 months. Location Location Details Encounter Type Encounter Number Reason For Visit Attending Provider ADM Date DC Date Status Disposition Source [facility] Outpatient Encounter [id number] 06/08 [facility] OFFICE O/P EST MOD 30-39 MIN [id number] Diagnos is: ICD-10- CM N18.5 Chronic kidney disease , stage 5 MERY TREJO 06/09 [facility] Outpatient Encounter [id number] 06/10 [facility] HC PRO PHONE CALL 5-10 MIN [id number] Diagnos is: ICD-10- CM Z51.81 Encount er for therape utic drug level monitor MALLY Yeboah 06/11 [facility] EMERGENCY DEPT VISIT [facility] [id number] Diagnos is: ICD-10- CM R10.84 General ized abdomin al pain GRACIELA MANN 06/21 [facility] Outpatient Encounter [id number] 06/21 [facility] OFFICE O/P NEW MOD 45-59 MIN [id number] Diagnos is: ICD-10- CM R10.13 Epigast chaparro pain MARIZA ALBARRAN 06/21 [facility] Inpatient Encounter [id number] Admit Reason: PANCREA TITIS ROLAND DIOP 06/21 [facility] Inpatient Encounter [id number] SEGUNDO SALAS 06/22 [facility] Inpatient Encounter [id number] SEGUNDO SALAS 06/22 [facility] Inpatient Encounter [id number] SEGUNDO SALAS 06/22 [facility] OFFICE O/P EST MOD 30-39 MIN [id number] Diagnos is: ICD-10- CM K56.690 Other partial intesti nal obstruc tion SEGUNDO IGLESIAS 06/22 [facility] QNHP OL DIG ASSMT&MGMT 1120 [id number] Diagnos is: ICD-10- CM I48.20 Chronic atrial fibrill ation, unspeci fied SUSAN THOMAS 06/22 [facility] Inpatient Encounter [id number] RIDGEL-MARCI PENNY 06/22 [facility] Inpatient Encounter [id number] RIDGEL-MARCI PENNY 06/22 [facility] BRICKMASON APPRENTICE FIBRE OPTIC CABLE SPLICER INDIVIDU [id number] Diagnos is: ICD-10- CM 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 Inpatient Encounter [id number] Orestes VILLAGOMEZ 06/23 [facility] Inpatient Encounter [id number] MIRANDA 06/23 [facility] Inpatient Encounter [id number] MARCI ASH 06/23 [facility] Inpatient Encounter [id number] MARCI ASH 06/23 [facility] Inpatient Encounter [id number] [id number] 1 Mae GUARDADO 06/24 [facility] Inpatient Encounter 57870-1.65 [id number] 2 Orestes VILLAGOMEZ 06/24 [facility] Inpatient Encounter 61814-0.65 [id number] 1 Mae GUARDADO 06/24 [facility] MTMS BY PHARM NATIONAL SERVICE OFFICER 15 MIN 30245-3.65 [id number] 6 Diagnos is: ICD-10- CM Z51.81 Encount er for therape utic drug level monitor SUSAN Pires 06/24 [facility] Inpatient Encounter 99541-3.65 [id number] 4 TALAT GIBBONS 06/24 [facility] Inpatient Encounter 08094-4.65 [id number] 3 MACIEL VARGAS 06/24 [facility] Inpatient Encounter 29744-3.65 [id number] 4 MACIEL VARGAS 06/24 [facility] Inpatient Encounter 75496-9.65 [id number] 3 JOSELYN ROMANO 06/24 [facility] OFF/OP EST FEBRUARY X REQ PHY/QHP 02244-9.63 [id number] 435 Diagnos is: ICD-10- CM N18.6 End stage renal disease ALEXEY GUSMAN 06/25 [facility] Outpatient Encounter 88820-8.65 [id number] 06/29 [facility] HC PRO PHONE CALL 21-30 MIN 67850-6.65 [id number] 839 Diagnos is: ICD-10- CM I10 Essenti al (primar y) hyperte POOL Arora J 06/30 [facility] OFF/OP CONSLTJ NEW/EST SF 20 19405-6.65 [id number] 7 Diagnos is: ICD-10- CM 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 Outpatient Encounter 76416-5.63 [id number] 3 07/03 [facility] Outpatient Encounter 57239-5.63 [id number] 3 07/07 [facility] Outpatient Encounter 27829-8.63 [id number] 2 07/07 [facility] Outpatient Encounter 70658-5.63 [id number] 4 07/22 [facility] Outpatient Encounter 49053-0.63 [id number] 3 07/24 [facility] EMERGENCY DEPT VISIT MOD MDM 82925-3.65 [id number] 9 Diagnos is: ICD-10- CM R07.9 Chest pain, unspeci fied STEINES,LA URA 07/26 [facility] Outpatient Encounter 52229-4.65 [id number] 2 07/26 [facility] Outpatient Encounter 34054-5.65 [id number] 5 GEMMA TADEO 07/26 [facility] OFFICE O/P EST LOW 20-29 MIN 44294-0.65 [id number] 8 Diagnos is: ICD-10- CM I10 Essenti al (primar y) hyperte nsion [facility] Outpatient Encounter 22345-3.63 [id number] 3 08/10 [facility] Outpatient Encounter 56384-0.65 [id number] 7 08/20 [facility] Outpatient Encounter 43776-4.63 [id number] 7 08/25 [facility] OFFICE O/P EST LOW 20-29 MIN 28138-8.65 [id number] 8 Diagnos is: ICD-10- CM 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 ANDREW PURCELL N 08/31 [facility] IMMUNIZATI ON ADMIN 71995-4.65 [id number] 7 Diagnos is: ICD-10- CM Z23 Encount er for immuniz ation ROXANAGREGORIOJono EKA 08/31 [facility] Outpatient Encounter 28482-0.65 [id number] 0 09/10 [facility] Outpatient Encounter 70257-6.65 [id number] 1 09/16 [facility] OFFICE O/P EST LOW 20-29 MIN 95536-9.65 [id number] 9 Diagnos is: ICD-10- CM N18.9 Chronic kidney disease , unspeci fied TERESA,EM AD M A 09/17 [facility] Outpatient Encounter 61956-5.63 [id number] 7 09/22 [facility] Outpatient Encounter 79960-5.65 [id number] 5 10/13 [facility] MTMS BY PHARM EST 15 MIN 48539-5.65 [id number] 5 Diagnos is: ICD-10- CM Z51.81 Encount er for therape utic drug level monitor NATHANIEL Pearl 10/14 [facility] Outpatient Encounter 34864-9.65 [id number] 4 10/20 [facility] Outpatient Encounter 37016-1.63 [id number] 3 10/21 [facility] Outpatient Encounter 10491-2.63 [id number] 1 10/22 [facility] Outpatient Encounter 32899-4.65 [id number] 7 10/22 [facility] OFFICE O/P EST MOD 30 MIN 05351-1.65 7.04704996 0 Diagnos is: ICD-10- CM I10 Essenti al (primar y) hyperte nsion BRYAN PURCELL N 11/02 [facility] Outpatient Encounter 74814-9.65 [id number] 0 11/02 [facility] Outpatient Encounter 64469-8.65 [id number] 4 11/11 [facility] Outpatient Encounter 43040-2.65 [id number] 8 11/11 [facility] HC PRO PHONE CALL 5-10 MIN 10040-5.65 [id number] Diagnos is: ICD-10- CM Z59.6 Low income Kathy WALKER 11/11 [facility] OFFICE O/P EST MOD 30 MIN 77085-4.65 [id number] 001 Diagnos is: ICD-10- CM E11.22 Type 2 diabete s mellitu s w diabeti c chronic kidney disease POOL CASAREZ 11/16 [facility] Outpatient Encounter 29025-0.65 [id number] 5 11/23 [facility] Outpatient Encounter 22247-8.63 [id number] 3 11/29 [facility] OFFICE O/P EST MOD 30 MIN 60931-8.65 7.06049395 4 Diagnos is: ICD-10- CM I10 Essenti al (primar y) hyperte nsion BRYAN PURCLEL N 12/10 [facility] Outpatient Encounter 34989-1.65 [id number] 5 12/13 [facility] Outpatient Encounter 93893-2.65 [id number] 8 12/13 [facility] OFF/OP EST FEBRUARY X REQ PHY/QHP 77720-9.63 [id number] 5 Diagnos is: ICD-10- CM N18.6 End stage renal disease ALEXEY GUSMAN 12/14 [facility] Outpatient Encounter 00979-1.65 [id number] 1 12/15 [facility] OFFICE O/P EST MOD 30 MIN 56025-7.65 [id number] 0 Diagnos is: ICD-10- CM E11.9 Type 2 diabete s mellitu s without complic ations TALON SORIA 12/17 [facility] Outpatient Encounter 29442-5.65 [id number] 7 Rahat VILLAGOMEZ 12/24 [facility] Outpatient Encounter 86635-3.65 [id number] 2 TAPAN ARNOLD 12/27 [facility] EMERGENCY DEPT VISIT [facility] 12439-9.65 [id number] 6 Diagnos is: ICD-10- CM M62.81 Muscle weaknes s (genera lized) VILMA LAWRENCE NE 01/06 [facility] Outpatient Encounter 89949-6.65 [id number] 9 01/06 [facility] Performanc e of Urinary Filtration , <6 hrs/day 58739-4.65 [id number] 4 Admit Reason: GENERAL IZED WEAKNES S TWOD,MED 01/06 [facility] Inpatient Encounter 58089-9.65 [id number] 6 SHELBYTay ECIA N 01/06 [facility] Inpatient Encounter 38123-5.65 [id number] 3 Tay RYANIA N 01/06 [facility] Inpatient Encounter 56921-0.65 [id number] 8 Tay RYAN N 01/07 [facility] Inpatient Encounter 56527-0.65 [id number] 4 Tay RYANIA N 01/07 [facility] Inpatient Encounter 79477-8.65 [id number] 6 Tay RYAN N 01/07 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 Inpatient Encounter 94798-0.65 [id number] 2 DOT ACOSTA 01/07 [facility] Inpatient Encounter 42304-0.65 [id number] 7 DOT ACOSTA 01/07 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 RONALD HEATH 01/07 [facility] TREATED WATER PER ALIRIOON 45288-4.65 7.46316022 7 Diagnos is: ICD-10- CM N18.6 End stage renal disease Rohini VLILAGOMEZ 01/07 [facility] QNHP OL DIG ASSMT&MGMT 5-10 80672-4.65 7.50012701 0 Diagnos is: ICD-10- CM Z51.81 Encount er for therape utic drug level monitor SUSAN Pires 01/07 [facility] OFF/OP EST MAY X REQ PHY/QHP 03379-0.65 7.61806158 1 Diagnos is: ICD-10- CM N18.6 End stage renal disease MARCEL OLIVARES 01/07 [facility] Inpatient Encounter 99866-2.65 [id number] 1 DOT ACOSTA 01/07 [facility] Inpatient Encounter 82418-8.65 [id number] 6 MODE VINSON 01/08 [facility] Inpatient Encounter 65036-2.65 [id number] 9 MODE VINSON 01[facility] En[facility] 91455-5.65 [id number] 0 HIBBLER,DI ALEXIS T 01/08 [facility] HEMODIALYS IS MACHINE 27800-4.65 7.30356524 6 Diagnos is: ICD-10- CM N18.6 End stage renal disease ISSA BARBOSA Adriano 01/08 [facility] Inpatient Encounter 08340-1.65 [id number] 3 Yahaira COSME CORY M 01/08 [facility] Inpatient Encounter 57208-5.65 [id number] 5 Yahaira COSME CORY M 01/08 [facility] Inpatient Encounter 16768-8.65 [id number] 8 CARMELINAYahaira CORY M 01/08 [facility] Inpatient Encounter 02363-1.65 [id number] 1 MELODIE JERONIMO 01/08 [facility] Inpatient Encounter 76611-7.65 [id number] 0 HIBBLER,DI ALEXIS T 01/08 [facility] Inpatient Encounter 13607-1.65 [id number] 5 HIBBLER,DI ALXEIS T 01/08 [facility] Inpatient Encounter 79310-7.65 [id number] 3 HIBBLERDI ALEXIS T 01/084 [facility] Inpatient Encounter 50839-7.65 [id number] 4 ANGELOSTEPHANIEMODE Cross 01/09 [facility] Inpatient Encounter 80468-5.65 [id number] 2 KARLADOT IVAN Gallardo 01/09 [facility] Inpatient Encounter 45845-5.65 [id number] 3 KARLADOT IVAN Gallardo 01/09 [facility] Inpatient Encounter 36314-7.65 [id number] 9 KARLADOT IVAN Gallardo 01/09 [facility] SBSQ HOSP IP/OBS MODERATE 35 25946-7.65 [id number] 3 Diagnos is: ICD-10- CM N18.5 Chronic kidney disease , stage 5 RONALD HEATH 01/09 [facility] Inpatient Encounter 78466-5.65 [id number] 1 MEDLEY,THER MELY A 01/09 [facility] Inpatient Encounter 64406-3.65 [id number] 3 MEDLEY,THER MELY A 01/09 [facility] Inpatient Encounter 10890-0.65 [id number] 9 MEDLEY,THER MELY A 01/09 [facility] Inpatient Encounter 71877-5.65 [id number] 8 JASMYNETHER MELY A 01/10 [facility] Inpatient Encounter 23102-5.65 [id number] 6 JASMYNETHER MELY A 01/10 [facility] CASE MANAGEMENT 95871-4.65 [id number] 2 Diagnos is: ICD-10- CM 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 JORGE Cruz 01/10 [facility] Inpatient Encounter 66884-6.65 [id number] 6 PETE YAN 01/10 [facility] Inpatient Encounter 03973-6.65 [id number] 8 PETE YAN 01/10 [facility] SBSQ HOSP IP/OBS MODERATE 35 33840-2.65 7.73902612 8 Diagnos is: ICD-10- CM N18.6 End stage renal disease RONALD HEATH 01/10 [facility] Outpatient Encounter 02133-6.65 [id number] 4 POOL CASAREZ 01/11 [facility] Outpatient Encounter 42980-1.65 [id number] 1 POOL CASAREZ 01/12 [facility] Outpatient Encounter 07893-7.65 [id number] 1 Diagnos is: ICD-10- CM N18.6 End stage renal disease Rohini VILLAGOMEZ M 01/12 [facility] Outpatient Encounter 89361-1.65 [id number] 1 01/13 [facility] Outpatient Encounter 27664-8.65 [id number] 3 POOL CASAREZ J 01/13 [facility] OFFICE O/P EST MOD 30 MIN 92254-1.65 [id number] 8 Diagnos is: ICD-10- CM I10 Essenti al (primar y) hyperte nsion BRYAN PURCELL N 01/13 [facility] Outpatient Encounter 36873-6.65 [id number] 6 Diagnos is: ICD-10- CM N18.5 Chronic kidney disease , stage 5 MERY TREJO S 01/14 [facility] Outpatient Encounter 92556-0.65 [id number] 8 01/14 [facility] OFF/OP EST MAY X REQ PHY/QHP 73099-7.65 [id number] 050 Diagnos is: ICD-10- CM N18.9 Chronic kidney disease , unspeci fied HOANG,ANDRZEJ ISGERONIMO M 01/17 [facility] HC PRO PHONE CALL 5-10 MIN 22981-1.65 [id number] 4 Diagnos is: ICD-10- CM N18.6 End stage renal disease GENO ARNDT Y 01/18 [facility] Outpatient Encounter 68000-9.65 [id number] 3 01/19 [facility] Outpatient Encounter 08810-3.07 [id number] 3 01/19 [facility] UNLISTED DIALYSIS PROCEDURE 66303-9.65 [id number] 8 Diagnos is: ICD-10- CM N18.6 End stage renal disease ELINOR BLAS YADAV 01/20 [facility] ESRD SRV 4 VISITS P MO 20+ 57987-4.65 [id number] 7 Diagnos is: ICD-10- CM P19.9 Metabol ic acidemi a in , unspeci fied CHENG PURCELLMICHELLEAKOSUAWILFRED N 01/20 [facility] COMB ART/VENOUS BLOOD TUBING 17983-2.65 7.68229887 0 Diagnos is: ICD-10- CM N18.6 End stage renal disease ANATOLIYLORA A 01/22 [facility] Outpatient Encounter 98788-7.65 [id number] 7 KAILA MARTE 01/24 [facility] T[facility]ATED [place] PER [place] 29269-1.65 [id number] 0 Diagnos is: ICD-10- CM N18.6 End stage renal disease Rohini VILLAGOMEZ 01/25 [facility] QNHP OL DIG ASSMT&MGMT 5-10 96228-1.65 7.75838443 6 Diagnos is: ICD-10- CM Z51.81 Encount er for therape utic drug level monitor Rahat Elias P 01/26 [facility] COMB ART/VENOUS BLOOD TUBING 34487-1.65 [id number] 9 Diagnos is: ICD-10- CM N18.6 End stage renal disease MAKAYLA MENDEZ MARGRET 01/27 [facility] ESRD SRV 4 VISITS P MO 20+ 13405-6.65 [id number] 5 Diagnos is: ICD-10- CM P19.9 Metabol ic acidemi a in , unspeci fied ADEMICHELLE ,OLUWATOYI N 01/27 [facility] HC PRO PHONE CALL 5-10 MIN 05109-3.65 7.43193541 3 Diagnos is: ICD-10- CM N18.6 End stage renal disease JESUS HUGHES KLAUS R 01/29 [facility] [place] 43100-4.65 [id number] 4 Diagnos is: ICD-10- CM N18.6 End stage renal disease BRIAN JONAS L 02/01 [facility] Outpatient Encounter 62497-7.65 [id number] 2 02/01 [facility] Outpatient Encounter 10361-7.65 [id number] 0 02/01 [facility] [place] PER [place] 25870-3.65 [id number] 9 Diagnos is: ICD-10- CM N18.6 End stage renal disease GENO ARNDT Y 02/03 [facility] COMB ART/VENOUS BLOOD TUBING 46323-1.65 [id number] 5 Diagnos is: ICD-10- CM N18.6 End stage renal disease ISSA BARBOSA L 02/05 [facility] T[facility]ATED [place] PER [place] 23746-8.65 [id number] 5 Diagnos is: ICD-10- CM N18.6 End stage renal disease EDUARD PARRSTEPHANIEROBERT N 02/08 [facility] CASE MANAGEMENT 77173-1.65 [id number] 4 Diagnos is: ICD-10- CM N18.6 End stage renal disease JORGE GARCIA 02/08 [facility] QNHP OL DIG ASSMT&MGMT 5-10 34443-665 [id number] 5 Diagnos is: ICD-10- CM Z51.81 Encount er for therape utic drug level monitor MELIDA Arevalo 02/09 [facility] Outpatient Encounter 61787-3.65 [id number] 0 02/09 [facility] UNLISTED DIALYSIS PROCEDURE 24830-4.70 [id number] 7 Diagnos is: ICD-10- CM N18.6 End stage renal disease EDUARD PARR MICHAELROBERT N 02/10 [facility] OFFICE O/P EST LOW 20 MIN 87736-1.09 [id number] 1 Diagnos is: ICD-10- CM N18.6 End stage renal disease BRYAN PURCELL N 02/10 [facility] TARGETED CASE MANAGEMENT 01712-5.65 [id number] 1 Diagnos is: ICD-10- CM 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 ENRIQUE Castillo 02/10 [facility] Outpatient Encounter 21500-4.65 [id number] 5 02/10 [facility] UNLISTED DIALYSIS PROCEDURE 36857-1.65 [id number] 5 Diagnos is: ICD-10- CM N18.6 End stage renal disease SAULJESUS KLAUS Sumi 02/12 [facility] Outpatient Encounter 30141-4.65 [id number] 4 02/17 [facility] Outpatient Encounter 14858-1.65 [id number] 7 02/22 [facility] Outpatient Encounter 84177-6.65 [id number] 1 02/22 [facility] Outpatient Encounter 86852-7.65 [id number] 6 03/02 [facility] Outpatient Encounter 50524-0.65 [id number] 6 03/02 [facility] Outpatient Encounter 73015-7.65 [id number] 3 03/03 [facility] Outpatient Encounter 63054-1.65 [id number] 8 COLE RENTERIA 03/03 [facility] HC PRO PHONE CALL 5-10 MIN 87122-3.65 [id number] 0 Diagnos is: ICD-10- CM N18.9 Chronic kidney disease , unspeci KIMBERLYN Elaine 03/15 [facility] Outpatient Encounter 49030-0.65 [id number] 1 03/17 [facility] Outpatient Encounter 29087-7.65 [id number] 4 04/05 [facility] HC PRO PHONE CALL 11-20 MIN 89468-8.65 [id number] 4 Diagnos is: ICD-10- CM 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 luis ENRIQUE BURDEN I A 04/12 [facility] Outpatient Encounter 13567-4.65 [id number] 6 04/19 [facility] [place] HEARING TEST 32008-1.65 [id number] 833 Diagnos is: ICD-10- CM H90.3 Sensori neural hearing loss, dustincandi PoloJUSTINE A 04/27 [facility] Outpatient Encounter 05805-0.65 [id number] 9 04/27 [facility] Outpatient Encounter 17766-2.65 [id number] 4 04/28 [facility] Outpatient Encounter 53772-2.65 [id number] 2 05/05 [facility] Outpatient Encounter 50767-2.65 [id number] 6 MARCEL TALAMANTES A 05/12 [facility] OFFICE O/P EST MOD 30 MIN 57112-8.65 [id number].[id number] 713 Diagnos is: ICD-10- CM N18.6 End stage renal disease KAILA MARTE 05/16 [facility] Outpatient Encounter 03448-8.65 [id number] 3 05/16 [facility] Outpatient Encounter 54089-8.65 [id number] 05/16 [facility] Outpatient Encounter 47800-9.65 [id number] 0 KAILA MARTEAYDEJono 05/31 [facility] HC PRO PHONE CALL 5-10 MIN 27754-4.65 7.45170496 2 Diagnos is: ICD-10- CM 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 ENRIQUE Castillo 06/08 [facility] Outpatient Encounter 56331-2.65 [id number] 3 06/08 [facility] Outpatient Encounter 67097-6.65 [id number] 8 06/16 [facility] Outpatient Encounter 42020-1.65 [id number] 1 ESTUARDOKAILA MILLER 06/19 [facility] Outpatient Encounter 96683-7.65 [id number] 5 07/12 [facility] Outpatient Encounter 23996-5.65 [id number] 5 08/02 [facility] Outpatient Encounter 65533-6.65 [id number] 8 08/16 [facility] Outpatient Encounter 96155-6.65 [id number] 9 09/07 [facility] Outpatient Encounter 50836-6.65 [id number] 4 09/19 [facility] CPAP FULL FACE MASK 23447-1.65 [id number] 7 Diagnos is: ICD-10- CM G47.30 Sleep apnea, unspeci fied VIVIAN GUZMAN LBY 09/30 [facility] Outpatient Encounter 44516-4.65 [id number] 7 LIFE CYCLE ASSESSMENT ANALYSTCHELSEY 10/07 [facility] OFF/OP EST FEBRUARY X REQ PHY/QHP 59967-1.65 [id number] 7 Diagnos is: ICD-10- CM G47.33 Obstruc tive sleep apnea (adult) (pediat chaparro) ISIDRO WEBSTER MD 10/11 [facility] Outpatient Encounter 98103-7. [id number] 6 10/18 [facility] Outpatient Encounter 15773-9. [id number] 7 10/18 [facility] Outpatient Encounter 79896-1.63 [id number] 8 11[facility]02 [facility] Encounter 39192-3.65 [id number] 8 11/02 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 ing, unspeci fied DAUMUELLER -ISAIAH,K BAKARI 11/07 [facility] Outpatient Encounter 30573-6.65 [id number] 0 11/09 [facility] PH1 ASSMT&MGMT NQHP 21-30 39182-0.65 [id number] 1 Diagnos is: ICD-10- CM N18.6 End stage renal disease ROXANAJAMAAL EKA 11/10 [facility] PH1 ASSMT&MGMT NQHP 21-30 08298-9.65 [id number] 6 Diagnos is: ICD-10- CM N18.6 End stage renal disease ENRIQUE BURDEN I A 11/10 [facility] Outpatient Encounter 66557-2.65 [id number] 6 11/14 [facility] CASE MANAGEMENT 89945-6.65 [id number] 9 Diagnos is: ICD-10- CM N18.6 End stage renal disease ENRIQUE BURDEN I A 11/16 [facility] Outpatient Encounter [id number] 11/23 [facility] Outpatient Encounter [id number] 11/24 [facility] Out[facility] Encounter [id number] 11/24 [facility] [place] [facility] Outpatient Encounter [id number] 1 MARCEL TALAMANTES A 11/24 [facility] Encounter [id number] 11/24 [facility] Out[facility] Encounter [id number] 11/29 [facility] Outpatient Encounter [id number] 11/30 [facility] SYNCH AUDIO-ONLY EST LOW 20 [id number] Diagnos is: ICD-10- CM J06.9 Acute upper respira tory infecti on, unspeci fied STEPHANIE DURÁN 11/30 [facility] Outpatient Encounter [id number] 11/30 [facility] Outpatient Encounter [id number] 12/02 [facility] Outpatient Encounter [id number] Paulina MUHAMMAD MD 12/02 [facility] Outpatient Encounter [id number] DHEERAJ GUAMAN 12/02 [facility] [place] MDM [id number] Diagnos is: ICD-10- CM J09.X1 Influen za due to ident novel influen za A virus w pneumon ia Paulina MUHAMMAD MD 12/02 [facility] Outpatient Encounter [id number] 12/02 [facility] Outpatient Encounter [id number] Paulina MUHAMMAD MD 12/02 [facility] Outpatient Encounter [id number] 12/02 [facility] Social History Combined list of available smoking, tobacco, and other social history from [facility] Defense and [facility] facilities. Social History Type Response Date Comment [facility] e Tobacco smoking status NHIS VA-TOBACCO USE FORMER CIGARETTES 11/24/2024 [facility] History of tobacco use [place]-TOBACCO NEVER USED OTHER TYPE 11/24/2024 [facility] History of tobacco use VA-TOBACCO FORMER USER 11/16/2023 [facility] History of tobacco use ORYX ADMIT TOBACCO SCREEN NO 06/21/2023 [facility] History of tobacco use ORYX ADMIT TOBACCO SCREEN NO 12/12/2022 [facility] History of tobacco use VA-TOBACCO FORMER USER 06/25/2022 [facility] History of tobacco use ORYX ADMIT TOBACCO SCREEN REFUSED 12/23/2021 [facility] History of tobacco use VA-TOBACCO FORMER USER 02/11/2021 [facility] History of tobacco use ORYX ADMIT TOBACCO SCREEN NO 05/24/2020 [facility] History of tobacco use KS-TOBACCO QUIT 15 YRS OR MORE 12/12/2019 [facility] History of tobacco use ORYX ADMIT TOBACCO SCREEN REFUSED 08/03/2019 [facility] History of tobacco use QUIT TOBACCO >7 YEARS AGO 10/12/2018 [facility] History of tobacco use ORYX ADMIT TOBACCO SCREEN NO 10/11/2018 [facility] History of tobacco use ORYX ADMIT TOBACCO SCREEN NO 09/07/2018 [facility] History of tobacco use QUIT TOBACCO >7 YEARS AGO 09/07/2018 [facility] History of tobacco use VA-TOBACCO QUIT 15 YRS OR MORE 07/13/2018 [facility] [place] [facility] History of tobacco use QUIT TOBACCO >7 YEARS AGO 06/11/2018 [facility] History of tobacco use QUIT TOBACCO >7 YEARS AGO 05/21/2018 [facility] History of tobacco use V7-TOBACCO USE NONE IN > 7 YEARS 01/19/2018 [facility] History of tobacco use V7-TOBACCO USE NONE IN > 7 YEARS 01/19/2018 [facility] History of tobacco use V7-TOBACCO USE NONE IN > 7 YEARS 01/05/2018 [facility] History of tobacco use V7-LIFETIME NON/TOBACCO USER 11/27/2006 [facility] Plan of Care List of future care activities from Department [facility] facilities. Additional future care activities may be listed in the Assessment and Plan section. Date/Time Care Activity Care Activity Detail Facili ty 12/12/2024 AMBULATORY - MEDICINE AM[facility]AT[facility] - [facility]ICI [facility] 12/12/2024 AMBULATORY - SURGERY AMBULATORY - SURGERY [facility] 03/20/2025 AMBULATORY - MEDICINE AMBULATORY - MEDICI [facility] 11/16/2024 Consult Order RENAL TRANSPLANT EVAL OUTPATIENT [place] [employer] [employer] [facility] Advance Directives List of completed, amended, or rescinded Advance Directives on record at [facility] facilities. An actual copy of the Directive is not included. Date Advance Directive Provider Source 12/17/2022 ADVANCE DIRECTIVE BIJAN MERRITT [facility] 02/09/2020 ADVANCE DIRECTIVE DISCUSSION MELY LUCIANO [facility] 02/02/2018 ADVANCE DIRECTIVE BEAU ALTAMIRANO [facility] 11/29/2006 ADVANCE DIRECTIVE MARELY CHACON [facility]
--- OUTSIDE RECORDS SUMMARY | 2024-12-05 00:21 | XMS_ITS ---
Author Name [facility] [place] [facility] [place] Address [address] [place] [address] Care Team Providers Care Senior Finance Manager Name Role Phone ERIKA DEE Primary Care [...] PART A Jul 12, 2019 PART A [id number] PRASANNA CALI PATIENT MEDICARE (WNR) MEDICARE (M) PART A Jul 12, 2019 PART A [id number] [phone] PRASANNA CALI PATIENT Selected Encounter This section includes the information on record at [place] for the Encounter. Date/Time Encounter Type Encounter Description Reason Pro vider Source Jan 07, 2024 11:21 PM Performance of Urinary Filtration, <6 hrs/day HOSPITALIZATION ICD-10-CM E78.5 Hyperlipidemia, unspecified TWOD,MED IHE Encounter Template Text not used by [place] Assessments - Encounter Diagnoses This section includes the primary and secondary diagnoses documented for the Encounter. Date/Time Primary/Secondary Diagnosis Diagnosis Name Provider Source Jan 11, 2024 01:02 PM Diagnosis for Length of Stay Hyp chr kidney disease w stage 5 chr kidney disease or ESRD [facility] Jan 11, 2024 01:02 PM SECONDARY Acidosis, unspecified [facility] Jan 11, 2024 01:02 PM SECONDARY Anemia in chronic kidney disease [facility] Jan 11, 2024 01:02 PM SECONDARY Benign prostatic hyperplasia without lower urinry tract symp [facility] Jan 11, 2024 01:02 PM SECONDARY Disorder of kidney and ureter, unspecified [facility] Jan 11, 2024 01:02 PM SECONDARY End stage renal disease [facility] Jan 11, 2024 01:02 PM SECONDARY Gout due to renal impairment, unspecified site [facility] Jan 11, 2024 01:02 PM SECONDARY Hyperkalemia [facility] Jan 11, 2024 01:02 PM SECONDARY Hyperlipidemia, unspecified [facility] Jan 11, 2024 01:02 PM SECONDARY Hypomagnesemia [facility] Jan 11, 2024 01:02 PM SECONDARY Implnt of artif int dev cause abn react/compl, w/o misadvnt 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 Jan 11, 2024 01:02 PM SECONDARY skilled nursing (current) use of insulin [facility] Jan 11, 2024 01:02 PM SECONDARY Obstructive sleep apnea (adult) (pediatric) [facility] Jan 11, 2024 01:02 PM SECONDARY Other disorders of mineral metabolism [facility] Jan 11, 2024 01:02 PM SECONDARY Other specified polyneuropathies [facility] Jan 11, 2024 01:02 PM SECONDARY Pain due to vascular prosth dev/grft, initial encounter [facility] Jan 11, 2024 01:02 PM SECONDARY Paroxysmal atrial fibrillation [facility] Jan 11, 2024 01:02 PM SECONDARY Renal osteodystrophy [facility] Jan 11, 2024 01:02 PM SECONDARY Secondary hyperparathyroidism of renal origin [facility] Jan 11, 2024 01:02 PM SECONDARY Type 2 diabetes mellitus w diabetic chronic kidney disease [facility] Plan of Treatment: Future Appointments (+ 6 months) and Future Tests (+/- 45 days) The Plan of Treatment section includes future care activities for the [place] [facility] [place] [facility] This section includes future appointments and future orders which are active, pending or scheduled. Future Appointments This section includes appointments that were scheduled to occur 6 months from the date of the Encounter, up to a maximum of 20 appointments. The data comes from all [place] treatment facilities. Appointment Date/Time Appointment Type Appointme nt Facility Name Jan 12, 2024 10:30 AM AMBULATORY - MEDICINE [facility] Jan 21, 2024 12:30 PM AM[facility]ULATORY - MEDICINE [facility] Jan 23, 2024 12:30 PM AMBULATORY - MEDICINE [facility] Jan 25, 2024 02:30 PM AMBULATORY - MEDICINE [facility] Jan 26, 2024 12:30 PM AMBULATORY - MEDICINE [facility] Jan 28, 2024 12:30 PM AMBULATORY - MEDICINE [facility] Feb 02, 2024 12:30 PM AMBULATORY - MEDICINE [facility] Feb 04, 2024 12:15 PM AMBULATORY - MEDICINE [facility] Feb 06, 2024 12:30 PM AMBULATORY - MEDICINE [facility] Feb 09, 2024 12:30 PM AMBULATORY - MEDICINE [facility] February 11, 2024 12:30 PM AMBULATORY - MEDICINE [facility] February 13, 2024 12:30 PM AMBULATORY - MEDICINE [facility] February 15, 2024 08:00 AM AMBULATORY - NONE [facility] February 15, 2024 08:30 AM AMBULATORY - MEDICINE [facility] Apr 05, 2024 09:30 AM AMBULATORY - MEDICINE [facility] Apr 27, 2024 07:30 AM AMBULATORY - SURGERY [facility] May 02, 2024 08:00 AM [facility]ULATORY - NONE [facility] May 02, 2024 08:30 AM AMBULATORY - MEDICINE [facility] May 16, 2024 02:00 PM AMBULATORY - MEDICINE [facility] Lab Results: +/- 30 days of the encounter This section includes the Chemistry and Hematology Lab Results on record with [place] for the patient. Radiology Reports and Pathology Reports are provided separately, in subsequent sections. Lab Results This section contains the Chemistry/Hematology Results that were resulted 30 days before or 30 daysafter the date of the Encounter. Date/Time Source Result Type Result - Unit Interpretation Reference Range Comment Feb 04, 2024 05:00 PM [facility] URR-POST PANEL (STL) Specimen Type: PLASMA No comment entered. Ordering Provider: KYLER PURCELL Report Released Date/Time: Feb 04, 2024 01:42 PM Reporting Lab: [place] [id number] [facility] [address] Performing Lab: [address] [address] BUN-POST DIALYSIS 16.2 mg/dL 9.0-25.0 URR (STL) 70.4 67.0-100.0 Feb 04, 2024 12:45 PM [facility] RENAL PANEL Specimen Type: PLASMA Comment: No hemolysis noted. Ordering Provider: KYLER PURCELL Report Released Date/Time: Feb 04, 2024 01:42 PM Reporting Lab: [facility] [address] [facility] [address] Performing Lab: [address] [address] CREATININE 6.97 mg/dL H 0.7-1.3 UREA NITROGEN 54.7 mg/dL H 9.0-25.0 GLUCOSE 134 mg/dL H 72-99 SODIUM 142 meq/L 136-145 POTASSIUM 4.0 meq/L 3.5-5 CHLORIDE 105 meq/L 98-107 CARBON DIOXIDE 24 meq/L 22-31 CALCIUM 9.7 mg/dL 8.4-10.4 PHOSPHOROUS 4.8 mg/dL H 2.3-4.7 ALBUMIN 3.9 g/dL 3.4-5 EGFR (CKD-EPI 2020) 7.9 LL >60 Feb 02, 2024 04:30 PM [facility] URR-POST PANEL (STL) Specimen Type: PLASMA No comment entered. Ordering Provider: KYLER PURCELL Report Released Date/Time: Feb 02, 2024 03:39 PM Reporting Lab: [address] [address] Performing Lab: [address] [address] BUN-POST DIALYSIS 22.9 mg/dL 9.0-25.0 URR (STL) 60.9 L 67.0-100.0 Feb 02, 2024 11:50 AM [facility] RENAL PANEL Specimen Type: PLASMA Comment: No hemolysis noted. Ordering Provider: KYLER PURCELL Report Released Date/Time: Feb 02, 2024 07:35 AM Reporting Lab: [address] [address] Performing Lab: [address] [address] CREATININE 8.34 mg/dL H 0.7-1.3 UREA NITROGEN 58.6 mg/dL H 9.0-25.0 GLUCOSE 169 mg/dL H 72-99 SODIUM 142 meq/L 136-145 POTASSIUM 4.6 meq/L 3.5-5 CHLORIDE 111 meq/L H 98-107 CARBON DIOXIDE 20 meq/L L 22-31 CALCIUM 9.2 mg/dL 8.4-10.4 PHOSPHOROUS 3.6 mg/dL 2.3-4.7 ALBUMIN 3.7 g/dL 3.4-5 EGFR (CKD-EPI 2020) 6.4 LL >60 Feb 01, 2024 11:00 PM [facility] 24H UR CHEM PANEL (STL) Specimen Type: 24-HOUR URINE No comment entered. Ordering Provider: KYLER PURCELL Report Released Date/Time: Jan 28, 2024 04:55 PM Reporting Lab: [facility] [address] [place] [address] Performing Lab: [address] [address] VOLUME 3289 mL SODIUM 24-HOUR URINE 226.941 H 40-220 POTASSIUM 24-HOUR URINE 35.8501 25-125 CHLORIDE 24-HOUR URINE 171.028 110-250 PROTEIN 24-HOUR URINE 1986.556 H 0-299.9 CREATININE 24-HOUR URINE [phone] Jan 28, 2024 05:29 PM [facility] CBC Specimen Type: BLOOD No comment entered. Ordering Provider: KYLER PURCELL Report Released Date/Time: Jan 28, 2024 05:07 PM Reporting Lab: [address] [address] Performing Lab: [address] [address] WBC 8.9 10*3/uL 3.6-11.2 RBC 2.96 10*6/uL [...] 10*3/uL 0.00-0.20 Jan 26, 2024 01:00 PM [facility] PTH, INTACT (STL) Specimen Type: SERUM No comment entered. Ordering Provider: KYLER PURCELL Report Released Date/Time: Jan 21, 2024 03:14 PM Reporting Lab: [facility] [address] [facility] [address] Performing Lab: [facility] [address] [place] [address] PTH, INTACT (STL) 141.40 pg/mL H 8.7-77.7 Jan 26, 2024 01:00 PM [facility] IRON/TIBC PROFILE Specimen Type: SERUM No comment entered. Ordering Provider: KYLER PURCELL Report Released Date/Time: Jan 21, 2024 03:14 PM Reporting Lab: [address] [address] Performing Lab: [place] [address] [facility] [address] TIBC 225 ug/dL L 250-450 TRANSFERRIN 180 mg/dL 163-344 IRON SATURATION 23 20-50 IRON 52 ug/dL L 65-175 Jan 26, 2024 01:00 PM [facility] FERRITIN Specimen Type: SERUM No comment entered. Ordering Provider: KYLER PURCELL Report Released Date/Time: Jan 21, 2024 03:14 PM Reporting Lab: [facility] [address] [facility] [address] Performing Lab: [facility] [address] [facility] [address] FERRITIN 118.78 ng/mL 22-275 Jan 26, 2024 01:00 PM [facility] RENAL PANEL Specimen Type: PLASMA Comment: No hemolysis noted. Ordering Provider: KYLER PURCELL Report Released Date/Time: Jan 21, 2024 03:14 PM Reporting Lab: [place] [address] [facility] [address] Performing Lab: [place] [address] [facility] [address] CREATININE 8.25 mg/dL H 0.7-1.3 UREA NITROGEN 63.1 mg/dL H 9.0-25.0 GLUCOSE 157 mg/dL H 72-99 SODIUM 137 meq/L 136-145 POTASSIUM 4.2 meq/L 3.5-5 CHLORIDE 100 meq/L 98-107 CARBON DIOXIDE 26 meq/L 22-31 CALCIUM 9.6 mg/dL 8.4-10.4 PHOSPHOROUS 4.9 mg/dL H 2.3-4.7 ALBUMIN 3.7 g/dL 3.4-5 EGFR (CKD-EPI 2020) 6.5 LL >60 Jan 26, 2024 01:00 PM [facility] CBC Specimen Type: BLOOD No comment entered. Ordering Provider: KYLER PURCELL Report Released Date/Time: Jan 21, 2024 03:14 PM Reporting Lab: [address] [address] Performing Lab: [address] [address] WBC 7.8 10*3/uL 3.6-11.2 RBC 2.95 10*6/uL [...] 10*3/uL 0.00-0.20 Jan 21, 2024 12:55 PM [facility] PT/INR NEW ([facility]) Specimen Type: PLASMA No comment entered. Ordering Provider: KYLER PURCELL Report Released Date/Time: Jan 21, 2024 12:43 PM Reporting Lab: [address] [address] Performing Lab: [address] [address] PROTIME 15.9 s H 9.4-12.5 INR VALUE 1.4 {INR} Jan 21, 2024 12:55 PM [facility] RENAL PANEL Specimen Type: PLASMA Comment: No hemolysis noted. Ordering Provider: KYLER PURCELL Report Released Date/Time: Jan 21, 2024 12:41 PM Reporting Lab: [address] [address] Performing Lab: [address] [address] CREATININE 8.11 mg/dL H 0.7-1.3 UREA NITROGEN 82.6 mg/dL H 9.0-25.0 GLUCOSE 114 mg/dL H 72-99 SODIUM 139 meq/L 136-145 POTASSIUM 5.1 meq/L H 3.5-5 CHLORIDE 109 meq/L H 98-107 CARBON DIOXIDE 19 meq/L L 22-31 CALCIUM 9.3 mg/dL 8.4-10.4 PHOSPHOROUS 4.1 mg/dL 2.3-4.7 ALBUMIN 3.8 g/dL 3.4-5 EGFR (CKD-EPI 2020) 6.6 LL >60 Jan 14, 2024 11:55 AM [facility] RENAL PANEL Specimen Type: PLASMA Comment: No hemolysis noted. Ordering Provider: KYLER PURCELL Report Released Date/Time: Jan 13, 2024 07:58 AM Reporting Lab: [address] [address] Performing Lab: [address] [address] CREATININE 8.05 mg/dL H 0.7-1.3 UREA NITROGEN 70.7 mg/dL H 9.0-25.0 GLUCOSE 155 mg/dL H 72-99 SODIUM 140 meq/L 136-145 POTASSIUM 5.1 meq/L H 3.5-5 CHLORIDE 107 meq/L 98-107 CARBON DIOXIDE 21 meq/L L 22-31 CALCIUM 9.6 mg/dL 8.4-10.4 PHOSPHOROUS 4.8 mg/dL H 2.3-4.7 ALBUMIN 4.1 g/dL 3.4-5 EGFR (CKD-EPI 2020) 6.7 LL >60 Jan 11, 2024 11:36 AM [facility] GLUCOSE,BLOOD-poct (STL) Specimen Type: BLOOD Comment: Test Performed by: [id number] Meter #: [id number] Ordering Provider: LINO,MED Report Released Date/Time: Jan 11, 2024 11:50 AM Reporting Lab: [address] [address] Performing Lab: [address] [address] GLUCOSE,BLOOD- poct (STL) 106 mg/dL H 72-99 Jan 11, 2024 11:07 AM [facility] GLUCOSE,BLOOD-poct (STL) Specimen Type: BLOOD Comment: Test Performed by: [id number] Meter #: [id number] Ordering Provider: LINOMED Report Released Date/Time: Jan 11, 2024 11:18 AM Reporting Lab: [address] [address] Performing Lab: [address] [address] GLUCOSE,BLOOD- poct (STL) 109 mg/dL H 72-99 Jan 11, 2024 05:12 AM [facility] GLUCOSE,BLOOD-poct (STL) Specimen Type: BLOOD Comment: Test Performed by: [id number] Meter #: [id number] Ordering Provider: TWOD,MED Report Released Date/Time: Jan 11, 2024 05:25 AM Reporting Lab: [address] [address] Performing Lab: [place] [address] [facility] [address] GLUCOSE,BLOOD- poct (STL) 88 mg/dL 72-99 Jan 10, 2024 08:19 PM [facility] GLUCOSE,BLOOD-poct (STL) Specimen Type: BLOOD Comment: Test Performed by: [id number] Meter #: [id number] Ordering Provider: LIDIA HUYNH Report Released Date/Time: Jan 10, 2024 08:31 PM Reporting Lab: [address] [address] Performing Lab: [address] [address] GLUCOSE,BLOOD- poct (STL) 153 mg/dL H 72-Jan 10, 2024 04:15 PM [facility] GLUCOSE,BLOOD-poct (STL) Specimen Type: BLOOD Comment: Test Performed by: [id number] Meter #: [id number] Ordering Provider: LIDIA HUYNH Report Released Date/Time: Jan 10, 2024 05:05 PM Reporting Lab: [address] [address] Performing Lab: [address] [address] GLUCOSE,BLOOD- poct (STL) 84 mg/dL 72-99 Jan 10, 2024 11:31 AM [facility] GLUCOSE,BLOOD-poct (STL) Specimen Type: BLOOD Comment: Test Performed by: [id number] Meter #: [id number] Ordering Provider: LIDIA HUYNH Report Released Date/Time: Jan 10, 2024 12:03 PM Reporting Lab: [place] [address] [facility] [address] Performing Lab: [address] [address] GLUCOSE,BLOOD- poct (STL) 99 mg/dL 72-Jan 10, 2024 04:45 AM [facility] GLUCOSE,BLOOD-poct (STL) Specimen Type: BLOOD Comment: Test Performed by: [id number] Meter #: [id number] Ordering Provider: LIDIA HUYNH Report Released Date/Time: Jan 10, 2024 05:29 AM Reporting Lab: [place] [address] [facility] [address] Performing Lab: [place] [address] [facility] [address] GLUCOSE,BLOOD- poct (STL) 109 mg/dL H Jan 09, 2024 08:08 PM [facility] GLUCOSE,BLOOD-poct (STL) Specimen Type: BLOOD Comment: Test Performed by: [id number] Meter #: [id number] Ordering Provider: LIDIA HUYNH Report Released Date/Time: Jan 09, 2024 08:28 PM Reporting Lab: [place] [address] [facility] [address] Performing Lab: [place] [address] [facility] [address] GLUCOSE,BLOOD- poct (STL) 110 mg/dL H -Jan 09, 2024 04:19 PM [facility] GLUCOSE,BLOOD-poct (STL) Specimen Type: BLOOD Comment: Test Performed by: [id number] Meter #: [id number] Ordering Provider: LIDIA HUYNH Report Released Date/Time: Jan 09, 2024 04:34 PM Reporting Lab: [place] [address] [facility] [address] Performing Lab: [place] [address] [facility] [address] GLUCOSE,BLOOD- poct (STL) 119 mg/dL H -Jan 09, 2024 02:30 PM [facility] MAGNESIUM Specimen Type: PLASMA Comment: No hemolysis noted. Ordering Provider: TATI ZAVALA Report Released Date/Time: Jan 09, 2024 07:51 AM Reporting Lab: [facility] [address] [facility] [address] Performing Lab: [facility] [address] [facility] [address] MAGNESIUM 1.6 mg/dL 1.6-2.6 Jan 09, 2024 02:30 PM [facility] RENAL PANEL Specimen Type: PLASMA Comment: No hemolysis noted. Ordering Provider: TATI ZAVALA Report Released Date/Time: Jan 09, 2024 07:51 AM Reporting Lab: [place] [address] [facility] [address] Performing Lab: [place] [address] [facility] [address] CREATININE 5.13 mg/dL H 0.7-1.3 UREA NITROGEN 46.2 mg/dL H 9.0-25.0 GLUCOSE 177 mg/dL H 72-99 SODIUM 136 meq/L 136-145 POTASSIUM 4.0 meq/L 3.5-5 CHLORIDE 101 meq/L 98-107 CARBON DIOXIDE 23 meq/L 22-31 CALCIUM 8.6 mg/dL 8.4-10.4 PHOSPHOROUS 2.7 mg/dL 2.3-4.7 ALBUMIN 3.6 g/dL 3.4-5 EGFR (CKD-EPI 2020) 11.5 LL >60 Jan 09, 2024 12:27 PM [facility] GLUCOSE,BLOOD-poct (STL) Specimen Type: BLOOD Comment: Test Performed by: [id number] Meter #: [id number] Ordering Provider: LIDIA HUYNH Report Released Date/Time: Jan 09, 2024 12:38 PM Reporting Lab: [place] [address] [facility] [address] Performing Lab: [place] [address] [facility] [address] GLUCOSE,BLOOD- poct (STL) 98 mg/dL 72-99 Jan 09, 2024 07:15 AM [facility] GLUCOSE,BLOOD-poct (STL) Specimen Type: BLOOD Comment: Test Performed by: [id number] Meter #: [id number] Ordering Provider: LIDIA HUYNH Report Released Date/Time: Jan 09, 2024 07:58 AM Reporting Lab: [address] [address] Performing Lab: [address] [address] GLUCOSE,BLOOD- poct (STL) 86 mg/dL 72-99 Jan 08, 2024 09:04 PM [facility] GLUCOSE,BLOOD-poct (STL) Specimen Type: BLOOD Comment: Test Performed by: [id number] Meter #: [id number] Ordering Provider: LIDIA HUYNH Report Released Date/Time: Jan 08, 2024 09:47 PM Reporting Lab: [address] [address] Performing Lab: [address] [address] GLUCOSE,BLOOD- poct (STL) 90 mg/dL 72-99 Jan 08, 2024 09:01 PM [facility] HEP B CORE AB TOTAL. (STL) Specimen Type: SERUM No comment entered. Ordering Provider: JON TAYLOR Report Released Date/Time: Jan 08, 2024 02:35 PM Reporting Lab: [place] [address] [facility] [address] Performing Lab: [address] [address] HEP B CORE AB TOTAL. (STL) Nonreactive Nonreactive Jan 08, 2024 09:01 PM [facility] HEP HB S Ag ([place]) (STL) Specimen Type: SERUM No comment entered. Ordering Provider: JON TAYLOR Report Released Date/Time: Jan 08, 2024 02:35 PM Reporting Lab: [address] [address] Performing Lab: [address] [address] HEP HB S Ag ([place]) (STL) Nonreactive Nonreactive Jan 08, 2024 09:01 PM [facility] HEPATITIS B SURFACE AB PNL Specimen Type: SERUM No comment entered. Ordering Provider: JON TAYLOR Report Released Date/Time: Jan 08, 2024 02:35 PM Reporting Lab: [place] [address] [facility] [address] Performing Lab: [place] [address] [facility] [address] HEP B Surface Ab-HBsAB (L) REACTIVE m[IU]/mL Nonreactive HEP Bs AB-QUANT (L) 63.22 m[IU]/mL Jan 08, 2024 04:47 PM [facility] GLUCOSE,BLOOD-poct (STL) Specimen Type: BLOOD Comment: Test Performed by: [id number] Meter #: [id number] Ordering Provider: LIDIA HUYNH Report Released Date/Time: Jan 08, 2024 05:09 PM Reporting Lab: [place] [address] [facility] [address] Performing Lab: [place] [address] [facility] [address] GLUCOSE,BLOOD- poct (STL) 95 mg/dL 72-99 Jan 08, 2024 11:26 AM [facility] GLUCOSE,BLOOD-poct (STL) Specimen Type: BLOOD Comment: Test Performed by: [id number] Meter #: [id number] Ordering Provider: LIDIA HUYNH Report Released Date/Time: Jan 08, 2024 11:37 AM Reporting Lab: [place] [address] [facility] [address] Performing Lab: [place] [address] [facility] [facility] [address] GLUCOSE,BLOOD- poct (STL) 105 mg/dL H 72-99 Jan 08, 2024 07:01 AM [facility] RENAL PANEL Specimen Type: PLASMA Comment: No hemolysis noted. Ordering Provider: IRAJ GRIFFIN Report Released Date/Time: Jan 07, 2024 11:24 PM Reporting Lab: [facility] [address] [facility] [address] Performing Lab: [address] [address] CREATININE 8.50 mg/dL H 0.7-1.3 UREA NITROGEN 88.2 mg/dL H 9.0-25.0 GLUCOSE 70 mg/dL L 72-99 SODIUM 139 meq/L 136-145 POTASSIUM 5.4 meq/L H 3.5-5 CHLORIDE 110 meq/L H 98-107 CARBON DIOXIDE 19 meq/L L 22-31 CALCIUM 9.4 mg/dL 8.4-10.4 PHOSPHOROUS 5.1 mg/dL H 2.3-4.7 ALBUMIN 3.8 g/dL 3.4-5 EGFR (CKD-EPI 2020) 6.3 LL >60 Jan 08, 2024 06:37 AM [facility] GLUCOSE,BLOOD-poct (STL) Specimen Type: BLOOD Comment: Test Performed by: [id number] Meter #: [id number] Ordering Provider: LIDIA HUYNH Report Released Date/Time: Jan 08, 2024 06:48 AM Reporting Lab: [address] [address] Performing Lab: [address] [address] GLUCOSE,BLOOD- poct (STL) 86 mg/dL 72-99 Jan 07, 2024 11:58 PM [facility] RENAL PANEL Specimen Type: PLASMA Comment: No hemolysis noted. Ordering Provider: IRAJ GRIFFIN Report Released Date/Time: Jan 07, 2024 11:38 PM Reporting Lab: [address] [address] Performing Lab: [address] [address] CREATININE 8.68 mg/dL H 0.7-1.3 UREA NITROGEN 92.6 mg/dL H 9.0-25.0 GLUCOSE 143 mg/dL H 72-99 SODIUM 138 meq/L 136-145 POTASSIUM 5.0 meq/L 3.5-5 CHLORIDE 111 meq/L H 98-107 CARBON DIOXIDE 17 meq/L L 22-31 CALCIUM 8.8 mg/dL 8.4-10.4 PHOSPHOROUS 3.8 mg/dL 2.3-4.7 ALBUMIN 3.8 g/dL 3.4-5 EGFR (CKD-EPI 2020) 6.1 LL >60 Jan 07, 2024 11:36 PM [facility] GLUCOSE,BLOOD-poct (STL) Specimen Type: BLOOD Comment: Test Performed by: [id number] Meter #: [id number] Ordering Provider: LIDIA MOSCOSO Report Released Date/Time: Jan 07, 2024 11:47 PM Reporting Lab: [address] [address] Performing Lab: [address] [address] GLUCOSE,BLOOD- poct (STL) 157 mg/dL H 72-99 Jan 07, 2024 11:30 PM [facility] MRSA SURVL NARES DNA Specimen Type: NARES [...] epidemiological information for final interpretation. Ordering Provider: IRAJ GRIFFIN Report Released Date/Time: Jan 07, 2024 11:24 PM Reporting Lab: [address] [address] Performing Lab: [address] [address] MRSA SURVL NARES DNA Negative Negative Jan 07, 2024 09:08 PM [facility] POTASSIUM Specimen Type: PLASMA Comment: No hemolysis noted. Ordering Provider: ANNA CALI Report Released Date/Time: Jan 07, 2024 08:38 PM Reporting Lab: [facility] [address] [facility] [address] Performing Lab: [address] [address] POTASSIUM 5.7 meq/L H 3.5-5 Jan 07, 2024 07:30 PM [facility] URINALYSIS (STL-PB) Specimen Type: URINE No comment entered. Ordering Provider: ANNA CALI Report Released Date/Time: Jan 07, 2024 05:18 PM Reporting Lab: [address] [address] Performing Lab: [address] [address] URINE COLOR Colorless Yellow U.BILIRUBIN Negative mg/dL [...] 1.015 1.005-1.029 Jan 07, 2024 05:30 PM [facility] BRAIN NATRIURETIC PEPTIDE Specimen Type: PLASMA No comment entered. Ordering Provider: GRACIELA MANN Report Released Date/Time: Jan 07, 2024 04:59 PM Reporting Lab: [address] [address] Performing Lab: [address] [address] BRAIN NATRIURETIC PEPTIDE 59.0 pg/mL 0-100 Jan 07, 2024 05:30 PM [facility] COVID-19 DIAGNOSTIC (FLU/RSV)(STL) Specimen Type: NASOPHARYNX Comment: Qualitative real-time PCR [...] Jan 07, 2024 04:59 PM Reporting Lab: [address] [address] Performing Lab: [place] [address] INFLUENZA A Negative Negative INFLUENZA B Negative Negative COVID-19 (STL-PB) Not Detected Not Detected RSV (Cepheid) NEGATIVE Negative Jan 07, 2024 05:30 PM [facility] COMPREHENSIVE METABOLIC PANEL Specimen Type: PLASMA Comment: Aspartate Transaminase result may show positive bias due to hemolysis. K result canceled due to hemolysis. Specimen moderately hemolyzed. K cancelled due to moderate hemolysis. Called to : Phillip Cee RN at: 1902 on: 01/07/2024 by: TENNILLE Ordering Provider: GRACIELA MANN Report Released Date/Time: Jan 07, 2024 04:59 PM Reporting Lab: [address] [address] Performing Lab: [address] [address] CREATININE 8.88 mg/dL H 0.7-1.3 UREA NITROGEN [...] LL >60 Jan 07, 2024 05:30 PM [facility] CBC Specimen Type: BLOOD No comment entered. Ordering Provider: GRACIELA MANN Report Released Date/Time: Jan 07, 2024 04:59 PM Reporting Lab: [address] [address] Performing Lab: [address] [address] WBC 9.2 10*3/uL 3.6-11.2 RBC 3.81 10*6/uL [...] 10*3/uL 0.00-0.60 BASOPHILS, ABSOLUTE 0.03 10*3/uL 0.00-0.20 Dec 11, 2023 12:02 PM [facility] PTH, INTACT (STL) Specimen Type: SERUM No comment entered. Ordering Provider: KYLER PURCELL Report Released Date/Time: Dec 10, 2023 03:57 PM Reporting Lab: [address] [address] Performing Lab: [address] [place] [address] PTH, INTACT (STL) 527.70 pg/mL H 8.7-77.7 Dec 11, 2023 12:02 PM [facility] RENAL PANEL Specimen Type: PLASMA Comment: No hemolysis noted. Ordering Provider: KYLER PURCELL Report Released Date/Time: Dec 10, 2023 03:57 PM Reporting Lab: [address] [address] Performing Lab: [address] [address] CREATININE 8.13 mg/dL H 0.7-1.3 UREA NITROGEN 69.9 mg/dL H 9.0-25.0 GLUCOSE 163 mg/dL H 72-99 SODIUM 140 meq/L 136-145 POTASSIUM 5.4 meq/L H 3.5-5 CHLORIDE 106 meq/L 98-107 CARBON DIOXIDE 22 meq/L 22-31 CALCIUM 8.6 mg/dL 8.4-10.4 PHOSPHOROUS 3.7 mg/dL 2.3-4.7 ALBUMIN 3.9 g/dL 3.4-5 EGFR (CKD-EPI 2020) 6.6 LL >60 Dec 11, 2023 12:02 PM [facility] CBC Specimen Type: BLOOD No comment entered. Ordering Provider: KYLER PURCELL Report Released Date/Time: Dec 10, 2023 03:57 PM Reporting Lab: [address] [address] Performing Lab: [address] [address] WBC 8.4 10*3/uL 3.6-11.2 RBC 3.84 10*6/uL L 4.10-5.70 HGB 11.4 g/dL L 13.1-16.8 HCT 35.7 L 38.2-48.4 MCV 93.0 fL 80.0-100.0 MCH 29.7 pg 27.0-34.0 MCHC 31.9 g/dL L 33.0-36.0 PLT 302 10*3/uL 150-400 MPV 11.1 fL 7.5-11.2 RDW 13.5 11.8-15.1 LYMPHOCYTES, AUTO % 17 MONOCYTES, AUTO % 5 NEUTROPHILS, AUTO % 73 EOSINOPHILS, AUTO % 3 BASOPHILS, AUTO % 0 LYMPHOCYTES, ABSOLUTE 1.43 10*3/uL 0.77-4.50 MONOCYTES, ABSOLUTE 0.43 10*3/uL 0.19-0.80 NEUTROPHILS, ABSOLUTE 6.13 10*3/uL 2.10-8.00 EOSINOPHILS, ABSOLUTE 0.25 10*3/uL 0.00-0.60 BASOPHILS, ABSOLUTE 0.03 10*3/uL 0.00-0.20 Dec 11, 2023 12:02 PM [facility] MAGNESIUM Specimen Type: PLASMA No comment entered. Ordering Provider: KYLER PURCELL Report Released Date/Time: Dec 11, 2023 10:17 AM Reporting Lab: [facility] [address] [place] [address] Performing Lab: [facility] [address] [facility] [address] MAGNESIUM 1.3 mg/dL L 1.6-2.6 Vital Signs: All taken on the encounter date This section contains inpatient and outpatient Vital Signs collected on the date of the Encounter. Date/Time Temperature Pulse Blood Pressure Respiratory Rate SP02 Pain Height Weight Body Mass Index Source Jan 07, 2024 11:57 PM 7 [facility] Jan 07, 2024 11:27 PM 97.6 68 163/77 18 95 7 227.5 34 [facility] Jan 07, 2024 11:00 PM 64 153/57 [facility] Jan 07, 2024 10:30 PM 63 152/58 [facility] Jan 07, 2024 10:00 PM 63 152/80 [facility] Social History: Smoking Status (Most current) and Tobacco Use (All prior to encounter date) This section includes the most current, and the historical, smoking and tobacco- related health factors from the [place] facility where the Encounter took place. Current Smoking Status This section includes the most current smoking, or tobacco-related health factor, from the [place] facility where the Encounter took place. Date/Time Current Smoking Status Comment Ester ity Jun 21, 2023 01:14 PM [facility] ADMIT TOBACCO SCREEN NO [facility] Tobacco Use History This section includes a history of the smoking, or tobacco-related health factors, that were collected on or before the date of the Encounter. The data comes from the [place] facility where the Encounter took place. Date/Time Smoking Status/Tobacco Use Comment F acility Dec 12, 2022 04:00 PM [facility] ADMIT TOBACCO SCREEN NO [facility] Jun 25, 2022 03:24 PM VA-TOBACCO FORMER USER [facility] Jun 25, 2022 03:24 PM VA-TOBACCO QUIT 15 YRS OR MORE [facility] Dec 23, 2021 04:59 PM [facility] ADMIT TOBACCO SCREEN REFUSED [facility] May 24, 2020 11:27 PM [facility] ADMIT TOBACCO SCREEN NO [facility] Dec 12, 2019 10:24 AM VA-TOBACCO FORMER USER [facility] Dec 12, 2019 10:24 AM VA-TOBACCO QUIT 15 YRS OR MORE [facility] Aug 03, 2019 02:11 AM [facility]YX ADMIT TOBACCO SCREEN REFUSED [facility] Oct 12, 2018 01:14 AM QUIT TOBACCO >7 YEARS AGO [facility] Oct 11, 2018 03:33 PM [facility] ADMIT TOBACCO SCREEN NO [facility] Sep 07, 2018 09:13 PM [facility]YX ADMIT TOBACCO SCREEN NO [facility] Sep 07, 2018 07:52 PM QUIT TOBACCO >7 YEARS AGO [facility] Advance Directives: All historical and current Section Date Range: From patient's date of to the date document was created. This section includes ALL of a patient's completed or amended [place] Advance and Rescinded Directives. The entries below indicate that a directive exists for the patient, but an actual copy is not included with this document. The data comes from all [place] facilities. Date Advance Directives Provider Source Dec 17, 2022 ADVANCE DIRECTIVE BIJAN MERRITT [facility] Feb 09, 2020 ADVANCE DIRECTIVE DISCUSSION MELY LUCIANO Manjinder [facility] Feb 02, 2018 ADVANCE DIRECTIVE BEAU ALTAMIRANO [facility] Nov 29, 2006 ADVANCE DIRECTIVE MARELY CHACON [facility] Radiology Reports: +/- 30 days of [...] the Encounter. The data comes from all [place] treatment facilities. Date/Time Radiology Report Provider Source Jan 07, 2024 08:01 PM CHEST PORTABLE: NAGI CALI [id number] -[id number] M Exm Date: JAN 07, 2024@20:01 Req Phys: ANNA CALI Loc: -EMERGENCY DEPT 3RD SHIFT (R Img Loc: -MAIN RADIOLOGY SUITE Service: Unknown (Case [id number] COMPLETE) CHEST PORTABLE (RAD Detailed) CPT:25388 Proc Modifiers : Portable Reason for Study: weakness, ESRD Clinical History: Report Status: Verified Date Reported: JAN 07, 2024 Date Verified: JAN 07, 2024 Dj Instructor E-Sig: Report: CHEST PORTABLE HISTORY: weakness, ESRD COMPARISON: July 26, 2023 TECHNIQUE: One view of the chest was performed at the local [place] facility. images were received by the [place] National Teleradiology Program (NTP) for interpretation. FINDINGS: Bilateral peribronchial thickening. Patchy bilateral lower lobe lung opacities. Mildly tortuous aorta. No acute bony abnormalities. Impression: 1. Bilateral peribronchial thickening. 2. Patchy bilateral lung opacities likely represent atelectasis. 3. No pneumothorax. READING PHYSICIAN: Madhu Patton M.D. -[phone] 01/07/2024 19:10 PDT [facility] National Teleradiology [facility] [phone] (For Medical Practitioner Use Only) Attention Patients / Veterans: If you have questions or concerns about these test results, please contact your ordering provider or primary care team. Primary Interpreting Staff: RADIOLOGY,OUTSIDE SERVICE, Staff Physician / RADIOLOGY,OUTSIDE SERVICE [facility] Encounter Notes: All associated encounter notes This section contains the clinical notes associated to the Encounter. 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 given time to ask questions if needed. Pharmacy was notified of discharge to ensure that medications would be readily available at that time. Transportation also notified to p/u at bedside. See IV template for removal. Bailey left johnson per w/c. /es/ PETE CARRILLO RN REGISTERED NURSE Signed: 01/11/2024 13:37 PETE YAN [facility] Jan 11, 2024 01:28 PM NURSING TRANSFER SUMMARIZATION DISCHARGE NOTE: LOCAL TITLE: [facility] DISCHARGE/TRANSFER SUMMARY STL STANDARD TITLE: NURSING TRANSFER SUMMARIZATION DISCHARGE NOTE DATE OF NOTE: JAN 11, 2024@13:28 ENTRY DATE: JAN 11, 2024@13:28:24 AUTHOR: PETE YANER: URGENCY: STATUS: COMPLETED DISCHARGE - TRANSFER SUMMARY Action: Discharge Diagnosis: Last Admission: 01/07/24 11:21:59 pm Admit Dx: GENERALIZED WEAKNESS Age: 68 Allergies: MORPHINE Patient Condition: Stable Vital Signs: Temperature: 97.8 F [36.6 C] (01/11/2024 10:05) Pulse: 65 (01/11/2024 10:05) Respiration: 20 (01/11/2024 10:05) Blood Pressure: 162/81 (01/11/2024 10:05) Pain: 3 (01/11/2024 11:39) Fall Risk Assessment Score: Fall Risk Level: No Risk SUICIDE SCREEN [place] Suicide Severity Rating Scale (C-SSRS) 1. Over the past month, have you wished you were or wished you could go to sleep and not wake up? No 2. Over the past month, have you had any actual thoughts of killing yourself? No 3. Over the past month, have you been thinking about how you might do this? Response not required due to responses to other questions. 4. Over the past month, have you had these thoughts and had some intention of acting on them? Response not required due to responses to other questions. 5. Over the past month, have you started to work out or worked out the details of how to kill yourself? Response not required due to responses to other questions. 6. If yes, at any time in the past month did you intend to carry out this plan? Response not required due to responses to other questions. 7. In your lifetime, have you ever done anything, started to do anything, or prepared to do anything to end your life (for example, collected pills, obtained a gun, gave away valuables, went to the roof but didn't jump)? No 8. If YES, was this within the past 3 months? Response not required due to responses to other questions. C-SSRS Screen is Negative Isolation: No Precautions: None Orientation: x3 Hygiene: Self Care Nutrition: Modified Diet: diabetic diet Special needs: Assistance: Independent Bowel/Bladder: Date of last bowel movement: Dec Defecation: Normal Able to void: YES Continent: YES Catheter: No Wound / Skin Condition: SKIN REINSPECTION/REASSESSMENT SKIN INSPECTION: Skin Color: Usual for ethnicity Skin Temperature: Warm Skin Moisture: Normal Skin Turgor: Elastic (normal/immediate) Akiko Skin Assessment: The patient's Akiko Scale Score is 22. The patient is considered not at risk for development of pressure ulcers/injuries. Sensory perception -- ability to respond meaningfully to pressure-related discomfort No impairment. Moisture -- degree to which skin is exposed to moisture Rarely moist. Activity -- ability to change and control body position Walks frequently. Mobility -- ability to change and control body position No limitation. Nutrition -- usual food intake patterns Adequate. Friction and shear No apparent problem. INTERVENTIONS: The pressure injury interventions were not needed - patient/resident is not at risk. RISK FACTORS THAT INCREASE RISK FOR DEVELOPING PRESSURE INJURIES The patient/resident does not have any additional risk factors. SKIN INTEGRITY: Intact STANDARD OF CARE / PRACTICE IMPLEMENTED: Indicate status at Discharge/Transfer: Resolved Flu Shot Given: No Patient refused Pneumococcal Shot Given: No Patient refused MRSA Discharge Swab Done: No Reason: N/A Discharged/Transfered to: Own home without home care services Accompanied by (Name & Relationship): Next of Kin notified: NO Discharge/Transfer Mode: Wheelchair Discharged/Transferred with: Written Discharge Instructions Medications Return Appointments The was informed of the date and time of his/her follow-up mental health appointments: The was provided the opportunity to cancel or change his/her scheduled follow-up mental health appointments: The Bailey was educated about what to do and who to contact should he/she need to cancel the follow-up mental health appointment: Clothing / Valuables returned: Yes Describe: CELL PHONE BULL RIVETER NO WALLET OR MONEY SOCKS SHOES PANTS CAP SWEATER Prosthetics with patient: Dentures/Partials with patient: None Glasses with patient: YES Other: Printed MD Instruction sheet with medication list reviewed and given to the patient/caregiver. Patient/Caregiver verifies medication list is complete and accurate. Patient/Caregiver appeared ready for instruction (good eye contact, appropriate questions, active participation, etc) Person(s) who received education: Patient Education Topic/Teaching Needs: Disease/Condition GENERALZED WEAKNESS Medication ALLMEDICATIONS REVIEWED WITH PATIENT AT TIME OF DISCHARGE Diet/Nutrition DIABETIC DIET Follow-up Instructions F/U INSTRUCTIONS REVIEWED WITH PATIENT AT TIME OF DISCHARGE Methods used Included: A copy of the Discharge Instructions Health Summary given to patient/caregiver and signed by patient/guardian. Patient's medications were reviewed and reconciled by discharge team. Teaching outcomes: Fair level of understanding /es/ PETE CARRILLO RN REGISTERED NURSE Signed: 01/11/2024 13:33 PETE YAN [facility] Jan 11, 2024 01:02 PM DISCHARGE SUMMARY: LOCAL TITLE: Discharge Summary STANDARD TITLE: DISCHARGE SUMMARY DICT DATE: JAN 11, 2024@14:32 ENTRY DATE: JAN 11, 2024@14:33 DICTATED BY: DIANE VELEZ ATTENDING: MARLEEN LOMAX URGENCY: routine STATUS: COMPLETED Discharge Summary Has ADDENDA PRINCIPAL DIAGNOSIS: end stage renal disease requiring hemodialysis SECONDARY DIAGNOSES: Significant Medical Problems PRESENT on Admission: Type II diabetes mellitus well controlled, Chronic atrial fibrillation, Essential hypertension, Hyperlipidemia, hyperparathyroidism due to renal insufficiency, Metabolic acidosis, benign prostatic hyperplasia Significant Medical Problems NOT PRESENT on Admission: none OPERATIVE/INVASIVE PROCEDURES: hemodialysis ATTENDING PHYSICIAN: Marleen Lomax M.D. BRIEF HISTORY AND HOSPITAL COURSE: 68 yo M with a hx of CKD5, HTN, DM, HLD, gout, jonah, chronic a fib and trigger finger presented to the ED for progressive symptoms of fatigue, lethargy, poor appetite. Denied N/v, dysguesia. He appeared fatigued and had mild asterixis. On arrival to the ED, he was HD stable. Labs notable for BUN: 93, Cr: 8.88, CO2: 13, K : 5.7. EKG showed prolonged HI interval and hyperacute T waves in leads V1 and V2. He was given 2 amps of bicarb and admitted to the Medicine service for further evaluation. Nephrology was consulted and initiated HD the following AM with resolution of electrolyte derangements. Pt underwent 2 sessions of hemodialysis however his fistula infiltrated during the second session precluding a third session on 01/11/24. It was decided to give the pt a break and to retry HD on Thursday at [facility]. Discharged home with instructions to return to dialysis on Thursday and Nephro clinic on . Pt's insulin dc'd on discharge due to A1c of 6 and well controlled blood sugars without any insulin inpatient. Pt also given 5 tabs of Oxycodone 5 mg q8h PRN for severe pain. PHYSICAL EXAM: General: Pleasant NAD, AAO x 3 HEENT: AT, NC, PERRL, MMM, no oral pharyngeal erythema or exudate, poor dentition Neck: Supple, No CAD, No JVD Heart: RRR, No mgr Lungs: Clear, no wrr Abdomen: NT/ND, BS normoactive Vascular: 2/4 radial and dorsalis pedis pulses Extremities: R ring finger with swelling and pain, No LE Edema, warm hands and feet Neuro: CN 2-12 GI, no focal deficits Skin: No abrasions, ulcers or ecchymosis Line: LUE AVF with swelling and significant tenderness to palpation, palpable thrill CONDITION ON DISCHARGE: stable FOLLOW-UP: 01/12/2024 10:30 [facility] C[facility] PACT PHONE [facility] 01/15/2024 11:20 [facility]ADD[facility] 02/24/2024 10:30 [facility] NP2 05/16/2024 14:00 [facility] C[facility] PACT 7 PCP 12/12/2024 15:00 [facility]ET[facility] 2 NON-VA FOLLOW-UP CARE: Not Applicable DISCHARGE MEDICATIONS: Active Outpatient Medications (including Supplies): Active Outpatient Medications Status 1) APIXABAN 5MG TAB TAKE ONE TABLET BY MOUTH TWICE A DAY ACTIVE FOR ANTICOAGULATION 2) ATORVASTATIN CALCIUM 80MG TAB TAKE ONE TABLET BY ACTIVE MOUTH EVERY EVENING FOR CHOLESTEROL. REPORT ANY UNEXPLAINED MUSCLE PAIN/WEAKNESS TO PROVIDER. 3) CALCITRIOL 0.5MCG CAP TAKE TWO CAPSULES BY MOUTH ONCE ACTIVE (S) A DAY FOR LOW PARATHYROID HORMONE 4) CARVEDILOL 25MG TAB TAKE ONE TABLET BY MOUTH TWICE A ACTIVE DAY FOR HIGH BLOOD PRESSURE TAKE WITH FOOD. 5) FEBUXOSTAT 80MG TAB TAKE ONE-HALF TABLET BY MOUTH ACTIVE ONCE A DAY FOR HYPERURICEMIA 6) GABAPENTIN 300MG CAP TAKE ONE CAPSULE BY MOUTH AT ACTIVE BEDTIME NEEDED FOR NERVE PAIN 7) INSULIN SYRINGE 0.5ML 30G 12MM USE 1 SYRINGE UNDER ACTIVE THE SKIN ONCE A DAY TO USE WITH INSULIN 8) MAGNESIUM OXIDE 400MG TAB TAKE ONE TABLET BY MOUTH ACTIVE ONCE A DAY 9) NIFEDIPINE (EQV-CC) 90MG SA TAB TAKE ONE TABLET BY ACTIVE MOUTH ONCE A DAY FOR HEART/BLOOD PRESSURE. PREFERABLE TO TAKE ON EMPTY STOMACH. SWALLOW WHOLE; DO NOT CRUSH OR CHEW. AVOID GRAPEFRUIT JUICE. 10) OLOPATADINE HCL 0.2% OPH SOLN INSTILL 1 DROP IN BOTH ACTIVE EYES ONCE A DAY FOR OCULAR ALLERGIES, ITCHING 11) OMEPRAZOLE 20MG EC CAP TAKE ONE CAPSULE BY MOUTH ACTIVE EVERY MORNING BEFORE A MEAL TO LOWER STOMACH ACID. TAKE 30 MINUTES PRIOR TO FOOD. 12) OXYCODONE HCL 5MG TAB TAKE ONE TABLET BY MOUTH EVERY ACTIVE EIGHT(8) HOURS NEEDED MAY CAUSE CONSTIPATION 13) PEG 400 0.4%/PROP GLYCOL 0.3% OPH SOLN INSTILL 1 DROP ACTIVE IN BOTH EYES FOUR TIMES A DAY NEEDED FOR DRY EYE(S) 14) RENAL MULTIVIT W/1MG OR LESS FA TAB TAKE 1 TABLET BY ACTIVE (S) MOUTH ONCE A DAY FOR NUTRITION/DIETARY SUPPLEMENTATION 15) SEMAGLUTIDE 1MG/0.75ML INJ PEN 3ML INJECT 1MG UNDER ACTIVE THE SKIN EVERY WEEK FOR DIABETES 16) SODIUM BICARBONATE 650MG TAB TAKE TWO TABLETS BY ACTIVE MOUTH THREE TIMES A DAY FOR STOMACH ACID LOWERING 17) TAMSULOSIN HCL 0.4MG CAP TAKE ONE CAPSULE BY MOUTH ACTIVE TWICE A DAY FOR BENIGN PROSTATIC HYPERPLASIA APPROXIMATELY 30 MINUTES AFTER THE SAME MEAL EACH DAY ALLERGIES OR DRUG SENSITIVITIES: MORPHINE DIET: Renal diet ACTIVITY: As tolerated INFORMATION REGARDING CONDITION OR PROPER HOME AND/OR WOUND CARE: Not Applicable RETURN TO WORK: not applicable DISPOSITION: [X} Discharge home [ ] Discharge to home hospice [ ] Transfer to senior living [ ] Transfer to rehab [ ] Transfer to psychiatry [ ] Transfer to Spinal cord injury unit [ ] Transfer to hospice [ ] Transfer to outside facility: [ ] Transfer to outside facility under hospice: [ ] : autopsy approved by Next of Kin [ ] : autopsy not approved by Next of Kin [ ] : autopsy resulting from geochemist's case [ ] Other: COMPETENCY: [X} The patient is competent in the VA sense of the word. [ ] The patient is not competent in the VA sense of the word. TOTAL TIME SPENT FOR FINAL HOSPITAL DISCHARGE: 35 minutes. Verified By MRT/KALYANI /edwar/ Tati Burgos MD Resident Physician Signed: 01/12/2024 07:25 /edwar/ MARLEEN LOMAX MD// INTERNAL MEDICINE ATTENDING Cosigned: 01/12/2024 10:53 01/12/2024 ADDENDUM STATUS: COMPLETED #. CKD5 now with progression to ESRD and initiated on hemodialysis -Presented with uptrending Cr, NAGMA, hyperkalemia, and symptoms of uremia. Renal consulted and patient initiated on HD through matured LUE AVF. Infiltration of fistula noted during 2nd HD session and renal recommended resting fistula and will arrange for patient to return for 3rd HD session on 01/12 as outpatient and follow up with nephrology. Plan is to continue outpatient HD intiation at the [place] and he will then be referred to a community HD center. AVF+ thrill/bruit at time of discharge and discharged with limited supply of oxycodone for pain at fistula site. #. Hyperkalemia #. Non-anion gap metabolic acidosis #. Anemia in CKD/anemia of chronic disease #. Atrial fibrillation, likely paroxysmal (correction from chronic afib) #. Obstructive sleep apnemia #. Type 2 diabetes, controlled /es/ MARLEEN LOMAX MD// INTERNAL MEDICINE ATTENDING Signed: 01/12/2024 11:00 TATI ZAVALA [facility] Jan 11, 2024 01:01 PM NURSING INPATIENT NOTE: LOCAL TITLE: [facility] NURSING FREQUENT DOCUMENTATION STANDARD TITLE: NURSING INPATIENT NOTE DATE OF NOTE: JAN 11, 2024@13:01 ENTRY DATE: JAN 11, 2024@13:01:12 AUTHOR: RAJAN GRIFFITHS EXP COSIGNER: URGENCY: STATUS: COMPLETED Version 2.4 Charting in accordance with [place] APPROVED [place] STANDARD ([place]AES) ACUTE INPATIENT/REHABILITATION NURSING ADMISSION SCREENING, ASSESSMENT, AND STANDARDS OF CARE ACTIVITIES OF DAILY LIVING Hygiene ADLs: Dressing: Upper Body: Independent Lower Body: Independent Eating: Independent Foot Care: Inspection Hand Hygiene: Performed post toileting Performed pre meals/snacks Oral Care: Non-ventilator patient: Patient teeth brushed: Independently Pericare: Soap and water Independent Personal Care: Shower Independent Toileting: Independent = ACTIVITY/MOBILIZATION = Mobility Status: Independent: Able to stand and step without staff assistance Steady standing balance Gait: Steady [employer] - Highest Level of Mobility achieved this shift: 4 - Transferred to chair/commode ENVIRONMENTAL SAFETY MANAGEMENT Implemented safety standards of care: -[place] to unit & environment -Adequate room lighting -Bed in low and locked position -Call light within reach -Personal items within reach -Traffic path in room free of clutter -Non-slip footwear -Upper/half length side rails up for bed mobility -Sensory aids within reach -Encourage patient to utilize sensory support GASTROINTESTINAL Elimination: Continent GENITOURINARY Elimination: Continent Color/Characteristic: Yellow = ORAL INTAKE (PERCENTAGE OF MEAL EATEN) = Breakfast: 51% - 75% Lunch: 51% - 75% /edwar/ BONNY [employer]EN[employer]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 Signed: 01/11/2024 13:02 RAJAN GRIFFITHS [facility] Jan 11, 2024 12:45 PM NURSING NOTE: LOCAL TITLE: [place]AES NSG IV INSERTION AND MAINTENANCE STANDARD TITLE: NURSING NOTE DATE OF NOTE: JAN 11, 2024@12:45 ENTRY DATE: JAN 11, 2024@13:27:47 AUTHOR: PETE YAN COSIGNER: URGENCY: STATUS: COMPLETED Version 2.2 Charting in accordance with [place] APPR[place] STANDARD (VAAES) ACUTE INPATIENT/REHABILITATION NURSING ADMISSION SCREENING, ASSESSMENT, AND STANDARDS OF CARE == IV Line Insertion and Maintenance == == Peripheral IV == Line #1: Discontinue: Location: Right, Forearm Date/Time: Jan@12:45 Reason for discontinuation: Therapy complete /es/ PETE CARRILLO RN REGISTERED NURSE Signed: 01/11/2024 13:28 PETE YAN [facility] Jan 11, 2024 11:31 AM PHYSICIAN EDUCATION DISCHARGE NOTE: LOCAL TITLE: DISCHARGE INSTRUCTIONS [facility] STANDARD TITLE: PHYSICIAN EDUCATION DISCHARGE NOTE DATE OF NOTE: JAN 11, 2024@11:31 ENTRY DATE: JAN 11, 2024@11:32:04 AUTHOR: DIANE BOLANOS COSIGNER: MARLEEN LOMAX URGENCY: STATUS: COMPLETED >>>>>>>>>>>>>>>>>>>>>>>>>>>>>>> >>>>>>>>>>>>>>>>>>>>>>>>>>>>>>> >>>>>>>> <<<<<<<<<<<<<<<<<<<<<<<<<<<<<<< <<<<<<<<<<<<<<<<<<<<<<<<<<<<<<< <<<<<<<< >>>>>>>>>>>>>>>>>>>>>>>>>>>>>>> >>>>>>>>>>>>>>>>>>>>>>>>>>>>>>> >>>>>>>> MEDICATIONS THAT WERE CHANGED: -------- 1. Increase calcitriol to 1 mcg tablet once daily MEDICATIONS THAT WERE STOPPED (AND REASON FOR STOPPING): -------- short acting and long acting insulin were both discontinued because of A1c of 6 and sub-100 blood glucoses during the hospital stay. NEW MEDICATIONS WITH INSTRUCTIONS: -------- 1. Renal multivitamin one tablet once daily 2. Oxycodone 5 mg one tablet every 8 hours as needed for severe pain DATE OF ADMISSION: Dec 23:21 DATE OF DISCHARGE: Jan REASON(S) FOR BEING IN THE HOSPITAL: -------- You were admitted to the hospital due to weakness and fatigue. Your kidney disease was found to have progressed to end-stage requiring initiation of dialysis. You had few short sessions with improvement of your electrolyte issues. Your next session of dialysis is on Thursday and you are to follow up with your kidney doctor on 01/14. Please also make an appointment with your PCP to discuss your diabetes management. YOUR OUTPATIENT CARE TEAM: -------- Team Information Primary Care Team: [facility] 7 Provider: BLU MARTE Position: PHYSICIAN FUTURE APPOINTMENTS: -------- 01/15/2024 11:20 MIREYA-RENAL MADDUKURI INPATIENT APPOINTMENT 02/24/2024 10:30 MIREYA-RENAL NP2 INPATIENT APPOINTMENT 05/16/2024 14:00 [facility] 7 PCP INPATIENT APPOINTMENT 12/12/2024 15:00 MIREYA-OPTOMETRY 2 INPATIENT APPOINTMENT YOUR KNOWN ALLERGIES: -------- MORPHINE CALL YOUR DOCTOR IF YOU HAVE ANY OF THESE PROBLEMS: -------- Palpitations, chest pain, shortness of breath, nausea, vomiting, fevers, and chills PHYSICAL ACTIVITY: -------- Activity as tolerated DIET: -------- Oral Nutrition/Diet Instructions Renal Dialysis Diet: When undergoing dialysis treatment, it is important to increase the amount of protein you consume. You may also need to limit sodium, potassium, and phosphorus depending on how your body handles the treatment. -Choose lean un-processed protein foods such as eggs, chicken, fish, turkey, nuts, legumes -Limit processed meats like salami, bologna, hot dogs, sausage, neves, etc. -Limit added table salt or salty seasonings and high-salt foods like soups and broths, or condiments -Eat 5 or more servings of fruits and vegetables daily, your potassium levels may affect which fruits and vegetables you choose to eat -Speak to a Registered Dietitian to help you manage the specific nutrient needs for your treatment TOBACCO & ALCOHOL: -------- Discharge tobacco cessation medication(s) not indicated due to: Other reason(s) documented by physician/PMO PROJECT MANAGER/PA or pharmacist Reason(s): patient is a non-smoker Discharge medications for alcohol/drug disorder not offered Reason: patient is a non-smoker DISCHARGE INSTRUCTIONAL MATERIALS: -------- CONDITION OF PATIENT AT DISCHARGE: -------- Stable DISCHARGE DESTINATION: -------- Home -------- NOTE: If you are having feelings of Depression or Emotional Distress, or feel you just need to talk with someone, please call [phone] ([phone]), Veterans - Press 1. COPY OF DISCHARGE INSTRUCTIONS: -------- The patient/family understands and will be provided a copy of these discharge instructions. DISCHARGE MEDICATION LIST: -------- Active Outpatient Medications (including Supplies): Active Outpatient Medications Status 1) APIXABAN 5MG TAB TAKE ONE TABLET BY MOUTH TWICE A DAY ACTIVE FOR ANTICOAGULATION 2) ATORVASTATIN CALCIUM 80MG TAB TAKE ONE TABLET BY ACTIVE MOUTH EVERY EVENING FOR CHOLESTEROL. REPORT ANY UNEXPLAINED MUSCLE PAIN/WEAKNESS TO PROVIDER. 3) CARVEDILOL 25MG TAB TAKE ONE TABLET BY MOUTH TWICE A ACTIVE DAY FOR HIGH BLOOD PRESSURE TAKE WITH FOOD. 4) FEBUXOSTAT 80MG TAB TAKE ONE-HALF TABLET BY MOUTH ACTIVE ONCE A DAY FOR HYPERURICEMIA 5) GABAPENTIN 300MG CAP TAKE ONE CAPSULE BY MOUTH AT ACTIVE BEDTIME NEEDED FOR NERVE PAIN 6) INSULIN SYRINGE 0.5ML 30G 12MM USE 1 SYRINGE UNDER ACTIVE THE SKIN ONCE A DAY TO USE WITH INSULIN 7) MAGNESIUM OXIDE 400MG TAB TAKE ONE TABLET BY MOUTH ACTIVE ONCE A DAY 8) NIFEDIPINE (EQV-CC) 90MG SA TAB TAKE ONE TABLET BY ACTIVE MOUTH ONCE A DAY FOR HEART/BLOOD PRESSURE. PREFERABLE TO TAKE ON EMPTY STOMACH. SWALLOW WHOLE; DO NOT CRUSH OR CHEW. AVOID GRAPEFRUIT JUICE. 9) OLOPATADINE HCL 0.2% OPH SOLN INSTILL 1 DROP IN BOTH ACTIVE EYES ONCE A DAY FOR OCULAR ALLERGIES, ITCHING 10) OMEPRAZOLE 20MG EC CAP TAKE ONE CAPSULE BY MOUTH ACTIVE EVERY MORNING BEFORE A MEAL TO LOWER STOMACH ACID. TAKE 30 MINUTES PRIOR TO FOOD. 11) PEG 400 0.4%/PROP GLYCOL 0.3% OPH SOLN INSTILL 1 DROP ACTIVE IN BOTH EYES FOUR TIMES A DAY NEEDED FOR DRY EYE(S) 12) SEMAGLUTIDE 1MG/0.75ML INJ PEN 3ML INJECT 1MG UNDER ACTIVE THE SKIN EVERY WEEK FOR DIABETES 13) SODIUM BICARBONATE 650MG TAB TAKE TWO TABLETS BY ACTIVE MOUTH THREE TIMES A DAY FOR STOMACH ACID LOWERING 14) TAMSULOSIN HCL 0.4MG CAP TAKE ONE CAPSULE BY MOUTH ACTIVE TWICE A DAY FOR BENIGN PROSTATIC HYPERPLASIA APPROXIMATELY 30 MINUTES AFTER THE SAME MEAL EACH DAY Pending Outpatient Medications Status 1) CALCITRIOL 0.5MCG CAP TAKE TWO CAPSULES BY MOUTH ONCE PENDING A DAY 2) OXYCODONE HCL 5MG TAB TAKE ONE TABLET BY MOUTH EVERY PENDING EIGHT(8) HOURS NEEDED MAY CAUSE CONSTIPATION 3) RENAL MULTIVIT W/1MG OR LESS FA TAB TAKE 1 TABLET BY PENDING MOUTH ONCE A DAY 17 Total Medications Active Remote Medications: No Active Remote Medications for this patient /edwar/ Tati Burgos MD Resident Physician Signed: 01/11/2024 12:00 /edwar/ MARLEEN LOMAX MD// INTERNAL MEDICINE ATTENDING Cosigned: 01/11/2024 13:20 TATI ZAVALA [facility] Jan 11, 2024 10:18 AM NURSING NOTE: LOCAL TITLE: [facility] SKIN INSPECTION/ASSESSMENT STANDARD TITLE: NURSING NOTE DATE OF NOTE: JAN 11, 2024@10:18 ENTRY DATE: JAN 11, 2024@10:18:45 AUTHOR: PETE YAN EXP COSIGNER: URGENCY: STATUS: COMPLETED SKIN REINSPECTION/REASSESSMENT SKIN INSPECTION: Skin Color: Usual for ethnicity Skin Temperature: Warm Skin Moisture: Normal Skin Turgor: Elastic (normal/immediate) INTERVENTIONS: No change in previous interventions as listed below Vaaes Pressure Injury Interventions 01/10/2024 Vaaes Pressure Injury Int Not Needed RISK FACTORS THAT INCREASE RISK FOR DEVELOPING PRESSURE INJURIES The patient/resident does not have any additional risk factors. SKIN INTEGRITY: Intact /es/ PETE CARRILLO RN REGISTERED NURSE Signed: 01/11/2024 10:19 PETE YAN [facility] Jan 11, 2024 10:06 AM NURSING INPATIENT NOTE: LOCAL TITLE: [facility] ACUTE INPATIENT NSG SHIFT ASSESSMENT STANDARD TITLE: NURSING INPATIENT NOTE DATE OF NOTE: JAN 11, 2024@10:06 ENTRY DATE: JAN 11, 2024@10:08:29 AUTHOR: PETE YAN EXP COSIGNER: URGENCY: STATUS: COMPLETED [facility] ACUTE INPATIENT NSG SHIFT ASSESSMENT Has ADDENDA Version 2.2 Charting in accordance with [facility] [place] STANDARD (TXAES) ACUTE INPATIENT/REHABILITATION NURSING ADMISSION SCREENING, ASSESSMENT, AND STANDARDS OF CARE ASSESSMENT PAIN ASSESSMENT Patient's acceptable pain goal: 0 No pain Are you currently experiencing pain? Yes - DVPRS scale used to assess Location: left upper arm Defense and Veterans Pain Rating Scale (DVPRS): 7 Focus of attention, prevents doing daily activities Pain Score: 7 VARGAS FALL SCALE & TIPS PROGRAM Vargas Fall Scale: The Vargas Fall scale was performed and score was 35. This is indicative of moderate risk for falls. History of falling: immediate or within 3 months? No Secondary diagnosis: Yes Ambulatory aid: None/bedrest/nurse assist Intravenous therapy/Heparin lock: Yes Gait/Transferring: Normal/bed rest/immobile Mental Status: Oriented to own ability/knows own limitations Fall Tailoring Interventions for Patient Safety (TIPS) Fall TIPS initiated with patient: Yes Interventions: Assistance out of bed: Call for assistance before getting out of bed Fall TIPS reviewed with patient: Yes Interventions: Assistance out of bed: Call for assistance before getting out of bed ENVIRONMENTAL SAFETY MANAGEMENT Implemented safety standards of care: -[place] to unit & environment -Adequate room lighting -Bed in low and locked position -Call light within reach -Personal items within reach -Traffic path in room free of clutter -Non-slip footwear -Upper/half length side rails up for bed mobility -Sensory aids within reach -Encourage patient to utilize sensory support Additional safety measures: Increased frequency of rounding NEUROLOGICAL Neurological Orientation: Oriented x4 Level of Consciousness (AVPU): Alert = Appears aware of and responsive to the environment on their own. Follows commands, opens eyes spontaneously, and tracks objects. NEUROMUSCULAR/NEUROVASCULAR EXTREMITIES ASSESSMENT Strength: Edge Burnisher Bilateral: Strong Upper Extremity Bilateral: Full strength Lower Extremity Bilateral: Full strength Sensation: Upper Extremity Sensation Bilateral: Intact Lower Extremity Sensation Bilateral: Intact Temperature: Upper Extremity Temperature Bilateral: Warm Lower Extremity Temperature Bilateral: Warm CARDIOVASCULAR Heart Sounds: Heart Rate/Rhythm (without personnel monitor): Regular Cardiac Rhythm Analysis: Normal Sinus Rhythm Telemetry Transmitter Pack #: 93 Capillary Refill: All 4 extremities, less than or equal to 3 seconds. Peripheral Pulses: All 4 extremities, 3+ normal. Edema: Present Dependent Location: LUE RESPIRATORY Respirations: Unlabored Pattern: Regular Breath Sounds Auscultated: Anterior and posterior GASTROINTESTINAL No bowel movement reported by patient Elimination: Continent Abdominal Description: Rounded Palpation: Soft, Non-tender Bowel Sounds: RUQ: Active LUQ: Active RLQ: Active LLQ: Active GENITOURINARY Elimination: Continent INTEGUMENTARY/SKIN/WOUND - (INCLUDING AKIKO) SEE NOTE: VAAES SKIN INPECTION/ASSESSMENT ACTIVITIES OF DAILY LIVING Hygiene ADLs: Oral Care: Non-ventilator patient: Patient teeth brushed: Independently MOBILITY Mobility Status: Independent: Able to stand and step without staff assistance Steady standing balance Gait: Steady IV LINES Peripheral IV: Line #1: Assessment: Location: Right, Forearm Gauge: 20 Dressing Condition: Clean, dry, intact Transparent dressing Site Condition: No redness, swelling, pain Line Status: Flushed PSYCHOSOCIAL Type of Emotional Support Provided: 1:1 discussion, Treatment discussion, Ventilation of feelings encouraged Additional Comment: Received report from diaysis nurse that patient would be returning to floor. Pt. was unable to receive procedure today. Upon arrival patient in pain 10-10 prn medication was given and pain is better. No sob or s/sx of distress noted call light and personal belongings within reach bed locked in lowest position for safety will continue to monitor throughout shift. /edwar/ PETE CARRILLO RN REGISTERED NURSE Signed: 01/11/2024 10:18 01/11/2024 ADDENDUM STATUS: COMPLETED Patient has edema and bruising to LUE fistula. bruit and thrill (+) pain at site. /edwar/ PETE CARRILLO RN REGISTERED NURSE Signed: 01/11/2024 10:21 PETE YAN [facility] Jan 11, 2024 09:49 AM CARDIOLOGY NOTE: LOCAL TITLE: CARDIOLOGY TELEMETRY STL STANDARD TITLE: CARDIOLOGY NOTE DATE OF NOTE: JAN 11, 2024@09:49 ENTRY DATE: JAN 11, 2024@09:49:18 AUTHOR: BROOKLYN GAYLE COSIGNER: URGENCY: STATUS: COMPLETED CARDIOLOGY TELEMETRY STL Has ADDENDA Telemetry reviewed: Normal Sinus Rhythm w\ 1 AVB INDIGO VAT TENDER CLOTH #: 93 RATE: 60s SHIFT: 7-3 Shift COMMENT: /patrice GAYLE AUTOMOTIVE TIRE TECHNICIAN Signed: 01/11/2024 09:49 01/11/2024 ADDENDUM STATUS: COMPLETED Pt. being discharged per RN Pete /patrice GAYLE AUTOMOTIVE TIRE TECHNICIAN Signed: 01/11/2024 12:15 BROOKLYN GAYLE [facility] Jan 11, 2024 08:09 AM NURSING NOTE: LOCAL TITLE: [facility] PROGRESS NOTE STL STANDARD TITLE: NURSING NOTE DATE OF NOTE: JAN 11, 2024@08:09 ENTRY DATE: JAN 11, 2024@08:09:23 AUTHOR: PETE YAN EXP COSIGNER: URGENCY: STATUS: COMPLETED Received report from night nurse that is in dialysis at this time. dago CARRILLO RN REGISTERED NURSE Signed: 01/11/2024 08:10 PETE YAN [facility] Jan 11, 2024 08:05 AM NEPHROLOGY INPATIENT NOTE: LOCAL TITLE: NEPHROLOGY INPATIENT FOLLOW UP STL STANDARD TITLE: NEPHROLOGY INPATIENT NOTE DATE OF NOTE: JAN 11, 2024@08:05 ENTRY DATE: JAN 11, 2024@08:05:52 AUTHOR: JON TAYLOR EXP COSIGNER: CHERRI NEWBY URGENCY: STATUS: COMPLETED NEPHROLOGY INPATIENT FOLLOW UP STL Has ADDENDA RENAL INPATIENT PROGRESS NOTE S: Patient seen and examined in dialysis. Primary complaints is pain in his AVF when accessed. Patient recieved lidocaine cream to the site prior to arrival to [facility]. He reports he still has pain. Of note access was infiltrated on Thursday. Denies fever, chills, CP, abdominal pain, NVD. A complete ROS was completed and negative unless mentioned in the interim history. O: Temperature: 97.6 F [36.4 C] (01/11/2024 05:20) Blood Pressure: 150/66 (01/11/2024 05:20) Pulse: 60 (01/11/2024 05:20) Respirations: 18 (01/11/2024 05:20) O2 Saturation: 96% (01/11/2024 05:20) Weight: 221.2 lb [100.33 kg] (01/11/2024 06:22) Height: 69 in [175.3 cm] (11/16/2023 12:36) Physical Exam Gen: 68M who appears age, unpleasant mood, no acute distress HENT: NCAT, hearing intact, no nasal discharge, oral mucosa pink moist. Eyes: EOMI, PERRL CV: Normal rate, regular rhythm w/o murmurs, gallops, rubs. Pulm: CLTAB, unlabored breathing, w/o wheezes, rales, rhonchi Abdomen: Soft, non-tender, w/o rigidity or guarding Ext: No evidence of LE edema. Radial pulses 2+ bilatarally. Neuro: A&Ox3. No focal deficits. Skin: No lesions on visualized skin Access: LUE AVF bruit+/thrill+, ecchymosis, swollen, some tenderness to touch Medications: 1) OXYCODONE (UD) 5MG/5ML SOLN,ORAL PO Q8H PRN 2nd line pain 2) APIXABAN (PA-F) TAB,ORAL PO BID 5MG 3) ATORVASTATIN TAB PO QPM 80MG 4) CALCITRIOL CAP,ORAL PO DAILY 0.5MCG 5) CARVEDILOL TAB PO CC BID 6) MAGNESIUM OXIDE TAB PO DAILY 400MG 7) NIFEDIPINE (SUSTAINED RELEASE) TAB,SA PO QDAILY 90MG 8) OMEPRAZOLE CAP,EC PO QAMAC 20MG 9) TAMSULOSIN CAP,ORAL PO BID PC 10) GLUCAGON INJ IM PRN 1MG/1VIAL 11) GLUCOSE TAB,CHEWABLE PO PRN 16GM 12) DEXTROSE 50% INJ,SOLN IVP PRN 50 ML 13) OLOPATADINE HCL 0.2% SOLN,OPH OU QDAILY 1 DROP 14) INSULIN ASPART (NOVOLOG) INJ SQ TID AC SLIDING SCALE 15) INSULIN ASPART (NOVOLOG) INJ SQ QHS SLIDING SCALE 16) SODIUM BICARBONATE TAB PO TID 1300MG 17) PROPYLENE GLYCOL SOLN,OPH OU QID PRN For dry eyes 18) ACETAMINOPHEN TAB PO Q6H PRN 500MG 19) LIDOCAINE 5% OINT,TOP TOP QID PRN LIGHTLY 20) NEPHRO-BRANNON TAB PO QDAILY 1 TABLET Lab Data: CBC: WBC 9.2 10*3/uL 01/07/2024 17:30 RBC 3.81 L 10*6/uL 01/07/2024 17:30 HGB 11.5 L g/dL 01/07/2024 17:30 HCT 34.3 L % 01/07/2024 17:30 MCV 90.0 fL 01/07/2024 17:30 MCH 30.2 pg 01/07/2024 17:30 MCHC 33.5 g/dL 01/07/2024 17:30 RDW 13.8 % 01/07/2024 17:30 PLT 281 10*3/uL 01/07/2024 17:30 MPV 11.5 H fL 01/07/2024 17:30 NEUTROPHILS, AUTO % 73 % 01/07/2024 17:30 LYMPHOCYTES, AUTO % 15 % 01/07/2024 17:30 MONOCYTES, AUTO % 7 % 01/07/2024 17:30 EOSINOPHILS, AUTO % 4 % 01/07/2024 17:30 BASOPHILS, AUTO % 0 % 01/07/2024 17:30 IMMATURE GRANS, AUTO % 0.4 % 06/18/2022 12:10 NEUTROPHILS, ABSOLUTE 6.64 10*3/uL 01/07/2024 17:30 LYMPHOCYTES, ABSOLUTE 1.41 10*3/uL 01/07/2024 17:30 MONOCYTES, ABSOLUTE 0.67 10*3/uL 01/07/2024 17:30 EOSINOPHILS, ABSOLUTE 0.35 10*3/uL 01/07/2024 17:30 BASOPHILS, ABSOLUTE 0.03 10*3/uL 01/07/2024 17:30 IMMATURE GRANS, AUTO ABS 0.03 10*3/uL 06/18/2022 12:10 Renal Function Panel: SODIUM 136 mEq/L 01/09/2024 14:00 POTASSIUM 4.0 mEq/L 01/09/2024 14:00 CHLORIDE 101 mEq/L 01/09/2024 14:00 UREA NITROGEN 46.2 H mg/dL 01/09/2024 14:00 CREATININE 5.13 H mg/dL 01/09/2024 14:00 CALCIUM 8.6 mg/dL 01/09/2024 14:00 CARBON DIOXIDE 23 mEq/L 01/09/2024 14:00 GLUCOSE 177 H mg/dL 01/09/2024 14:00 EGFR (CKD-EPI 2020) 11.5 L* 01/09/2024 14:00 ALBUMIN 3.6 g/dL 01/09/2024 14:00 PHOSPHOROUS 2.7 mg/dL 01/09/2024 14:00 Impression/Recommendations: Mr. Cali is a 68M with a PMH of CKD now with symptoms suggestive of uremia, nephrology consulted, patient now initiated on iHD. CKD Stage V with progression Hypomagnesemia - Etiology: DM, HTN, vascular disease, proteinuria - Volume Status: Euvolemic - Notable Labs: BUN 46 - UA unremarkable other than proteinuria - 11/2022 AVF placed, cleared for use on 09/17/2023 - First 3 iHD 01/07, 01/08, 01/10 Recommendations - Unable to perform iHD today due to infiltrated access and patient pain - Spoke with local PA, patient will dialyze at [facility] until his fistula is matured, est 3 weeks then be referred to the community. - Patient is ok to discharge today. - Next iHD 01/13/24, outpatient - IV lidocaine for pain - We are ok with oxycodone for today and tomorro 01/11 given pain. Patient will be brought back on 01/12 and pain can be reassessed. - Smaller needles per protocol and lower flows since new dialysis access use - Dialysis coordinator is now following the patient. - Continue oral magnesium replacement Anemia - Last HGB 11.5 - at goal - transfuse is HGB <7 #HTN - 150/66 - Continue nifedipine 90 mg daily - Continue and carvedilol 25mg bid CK-MBD - Last Ca, Phos, Alb reviewed and adequate - iPTH 527 - Continue calcitriol 1 mcg daily (recently increased) Patient seen and discussed with Dr. Newby, see attestation for changes. /edwar/ Jon Taylor MD Nephrology Fellow Signed: 01/11/2024 10:12 /edwar/ CHERRI NEWBY COMPUTER NUMERICAL CONTROL OPERATOR Cosigned: 01/11/2024 10:33 01/11/2024 ADDENDUM STATUS: COMPLETED Patient was seen and examined with the housestaff above. I reviewed the laboratory, radiologic findings and clinical documentation. Agree in general with the data, synthesis, and plan as outlined in his note and discussed on rounds. AVF infiiltrated, will rest access and arrange outpatient completion of dialysis initiation for ESRD. /edwar/ CHERRI NEWBY COMPUTER NUMERICAL CONTROL OPERATOR Signed: 01/11/2024 10:34 [facility]JON [facility] Jan 11, 2024 06:47 AM RESPIRATORY THERAPY NOTE: LOCAL TITLE: RESPIRATORY THERAPY ST STANDARD TITLE: RESPIRATORY THERAPY NOTE DATE OF NOTE: JAN 11, 2024@06:47 ENTRY DATE: JAN 11, 2024@06:47:34 AUTHOR: REGINE BLANCO EXP COSIGNER: URGENCY: STATUS: COMPLETED V60 CPAP at bedside on standby at this time. /patrice Blanco ASSEMBLER MOLDED FRAMES Registered Respiratory Therapist Signed: 01/11/2024 06:47 REGINE BLANCO [facility] Jan 11, 2024 03:31 AM CARDIOLOGY NOTE: LOCAL TITLE: CARDIOLOGY TELEMETRY [facility] STANDARD TITLE: CARDIOLOGY NOTE DATE OF NOTE: JAN 11, 2024@03:31 ENTRY DATE: JAN 11, 2024@03:31:41 AUTHOR: BROOKLYN GAYLE EXP COSIGNER: URGENCY: STATUS: COMPLETED Telemetry reviewed: Normal Sinus Rhythm w\ 1 AVB INDIGO VAT TENDER CLOTH #: 93 RATE: 59-60s SHIFT: 11-7 Shift COMMENT: /patrice GAYLE AUTOMOTIVE TIRE TECHNICIAN Signed: 01/11/2024 03:32 BROOKLYN GAYLE [facility] Jan 11, 2024 02:08 AM NURSING INPATIENT NOTE: LOCAL TITLE: VAAES NURSING FREQUENT DOCUMENTATION STANDARD TITLE: NURSING INPATIENT NOTE DATE OF NOTE: JAN 11, 2024@02:08 ENTRY DATE: JAN 11, 2024@02:08:43 AUTHOR: MOISES MEDLEY EXP COSIGNER: URGENCY: STATUS: COMPLETED VAAES NURSING FREQUENT DOCUMENTATION Has ADDENDA Version 2.4 Charting in accordance with [place] APPROVED [place] STANDARD (VAAES) ACUTE INPATIENT/REHABILITATION NURSING ADMISSION SCREENING, ASSESSMENT, AND STANDARDS OF CARE 02:00 Pt resting quietly in bed. No s/s of discomfort noted. Telemetry showing SR 60/SB 58. Clear yellow urine emptied from urinal. Call light in reach. /edwar/ MOISES MEDLEY BSN RN REGISTERED NURSE Signed: 01/11/2024 02:10 01/11/2024 ADDENDUM STATUS: COMPLETED 04:00 Pt lying in bed with eyes closed. Respirations even, non-labored. Telemetry showing SR 60. Call light in reach. 06:14 Pt reporting LUE pain rated 4/10. See emar for lidocaine cream administration time. /edwar/ MOISES BAER RN REGISTERED NURSE Signed: 01/11/2024 06:21 01/11/2024 ADDENDUM STATUS: COMPLETED 06:58 Pt sitting up on side of bed eating breakfast. Report given to HD RN. LUE wrapped in plastic with the lidocaine cream. Pt to go down after eating. /edwra/ MOISES BAER RN REGISTERED NURSE Signed: 01/11/2024 07:09 MOISES MEDLEY [facility] Jan 11, 2024 12:08 AM NURSING INPATIENT NOTE: LOCAL TITLE: [facility] ACUTE INPATIENT NSG SHIFT ASSESSMENT STANDARD TITLE: NURSING INPATIENT NOTE DATE OF NOTE: JAN 11, 2024@00:08 ENTRY DATE: JAN 11, 2024@00:09:13 AUTHOR: MOISES MEDLEY EXP COSIGNER: URGENCY: STATUS: COMPLETED Version 2.2 Charting in accordance with [place] APPROVED [place] STANDARD (TXAES) ACUTE INPATIENT/REHABILITATION NURSING ADMISSION SCREENING, ASSESSMENT, AND STANDARDS OF CARE REASSESSMENT PAIN ASSESSMENT Are you currently experiencing pain? Yes - DVPRS scale used to assess Location: R. hand and LUE Defense and Veterans Pain Rating Scale (DVPRS): Pain Score: 5 Pt refusing tylenol. See emar for prn oxy administration time CARDIOVASCULAR Heart Rate/Rhythm (without personnel monitor): Regular Cardiac Rhythm Analysis: Normal Sinus Rhythm 60's Telemetry Transmitter Pack #: 93 Capillary Refill: All 4 extremities, less than or equal to 3 seconds. Peripheral Pulses: All 4 extremities, 3+ normal. Edema: Present Generalized Location: LUE RESPIRATORY Respirations: Unlabored Pattern: Regular Breath Sounds Auscultated: Anterior / Lateral Left Upper Lobe: Clear Right Upper Lobe: Clear Right Middle Lobe: Clear Left Lower Lobe: Clear Right Lower Lobe: Clear Supplemental Respiratory: CPAP GASTROINTESTINAL Abdominal Description: Rounded Bowel Sounds: RUQ: Active LUQ: Active RLQ: Active LLQ: Active GENITOURINARY Elimination: Continent Supplemental Genitourinary: Dialysis: AV Fistula: Location: LUE Bruit Present: Yes Thrill Present: Yes Pt lying in bed watching tv. Will continue to monitor. Call light in reach. /edwar/ MOISES BAER RN REGISTERED NURSE Signed: 01/11/2024 00:23 MOISES MEDLEY [facility] Jan 10, 2024 08:15 PM CARDIOLOGY NOTE: LOCAL TITLE: CARDIOLOGY TELEMETRY ST STANDARD TITLE: CARDIOLOGY NOTE DATE OF NOTE: JAN 10, 2024@20:15 ENTRY DATE: JAN 10, 2024@20:15:55 AUTHOR: TRISHA GARY COSIGNER: URGENCY: STATUS: COMPLETED Telemetry reviewed: Normal Sinus Rhythm 1'avb ivcd INDIGO VAT TENDER CLOTH #: 93 RATE: 60s SHIFT: 3-11 Shift COMMENT: /patrice GARY AUTOMOTIVE TIRE TECHNICIAN Signed: 01/10/2024 20:16 TRISHA GARY [facility] Jan 10, 2024 08:00 PM NURSING INPATIENT NOTE: LOCAL TITLE: [facility] NURSING FREQUENT DOCUMENTATION STANDARD TITLE: NURSING INPATIENT NOTE DATE OF NOTE: JAN 10, 2024@20:00 ENTRY DATE: JAN 10, 2024@20:30:59 AUTHOR: MEDLEY,MOISES A EXP COSIGNER: URGENCY: STATUS: COMPLETED Version 2.4 Charting in accordance with [facility] [place] STANDARD (TXAES) ACUTE INPATIENT/REHABILITATION NURSING ADMISSION SCREENING, ASSESSMENT, AND STANDARDS OF CARE NATIONAL EARLY WARNING SCORE (NEWS) The following vital measurements were used to complete the NEWS. Measurement DT TEMP PULSE RESP BP POx F(C) (L/MIN)(%) 01/10/2024 20:00 97.6(36.4) 64 20 153/76 95 The NEWS total is 1. 1. Temperature (C/F): Score = 0 36.1 - 38.0 C (96.9 - 100.4 F) 2. Pulse: Score = 0 51-90 3. Respirations: Score = 0 12-20 4. Blood Pressure (Only Systolic BP, mmHg): Score = 0 111-219 5. Pulse Oximetry: Score = 1 94% - 95% 6. Supplemental oxygen in use: Score = 0 No 7. AVPU: Score = 0 Alert /es/ MOISES MEDLEY BSN RN REGISTERED NURSE Signed: 01/10/2024 20:32 MOISES MEDLEY [facility] Jan 10, 2024 08:00 PM NURSING NOTE: LOCAL TITLE: [facility] SKIN INSPECTION/ASSESSMENT STANDARD TITLE: NURSING NOTE DATE OF NOTE: JAN 10, 2024@20:00 ENTRY DATE: JAN 10, 2024@23:16:21 AUTHOR: MOISES MEDLEY EXP COSIGNER: URGENCY: STATUS: COMPLETED SKIN REINSPECTION/REASSESSMENT SKIN INSPECTION: Skin Color: Usual for ethnicity Skin Temperature: Warm Skin Moisture: Normal Skin Turgor: Elastic (normal/immediate) Akiko Skin Assessment: The patient's Akiko Scale Score is 21. The patient is considered not at risk for development of pressure ulcers/injuries. Sensory perception -- ability to respond meaningfully to pressure-related discomfort No impairment. Moisture -- degree to which skin is exposed to moisture Rarely moist. Activity -- ability to change and control body position Walks occasionally. Mobility -- ability to change and control body position No limitation. Nutrition -- usual food intake patterns Adequate. Friction and shear No apparent problem. INTERVENTIONS: The pressure injury interventions were not needed - patient/resident is not at risk. RISK FACTORS THAT INCREASE RISK FOR DEVELOPING PRESSURE INJURIES: The patient/resident has the following: Known vascular surgery or vascular disease Device(s): (nasogastric tubes, oxygen tubing, urinary catheters, cell phone etc.) Comment: telemetry Localized abnormality: Bruising: Location(s): LUE fistula, swollen /es/ MOISES MEDLEY BSN RN REGISTERED NURSE Signed: 01/10/2024 23:22 MOISES MEDLEY [facility] Jan 10, 2024 08:00 PM NURSING INPATIENT NOTE: LOCAL TITLE: [facility] ACUTE INPATIENT NSG SHIFT ASSESSMENT STANDARD TITLE: NURSING INPATIENT NOTE DATE OF NOTE: JAN 10, 2024@20:00 ENTRY DATE: JAN 10, 2024@22:44:38 AUTHOR: MOISES MEDLEY EXP COSIGNER: URGENCY: STATUS: COMPLETED Version 2.2 Charting in accordance with [facility] STANDARD ([facility]AES) ACUTE INPATIENT/REHABILITATION NURSING ADMISSION SCREENING, ASSESSMENT, AND STANDARDS OF CARE ASSESSMENT HANDOFF Bedside report and handoff completed Safety check completed Comment: RICHARD [place] PAIN ASSESSMENT Are you currently experiencing pain? Yes - DVPRS scale used to assess Location: LUE Defense and Veterans Pain Rating Scale (DVPRS): Pain Score: 4 Pt's LUE fistula site is bruised, swollen. Offered intermittent ice therapy, or to elevate on a pillow. Pt refused. Pt refusing lidocaine cream at this time. States he will use some in the morning. VARGAS FALL SCALE & TIPS PROGRAM Vargas Fall Scale: The Vargas Fall scale was performed and score was 20. This is indicative of low risk of falls. History of falling: immediate or within 3 months? No Secondary diagnosis: No Ambulatory aid: None Intravenous therapy/Heparin lock: Yes Gait/Transferring: Normal Mental Status: Oriented to own ability/knows own limitations Fall Tailoring Interventions for Patient Safety (TIPS) Fall TIPS initiated with patient: Yes Interventions: Communicate recent fall or risk of harm Fall TIPS reviewed with patient: Yes Interventions: Communicate recent fall or risk of harm ENVIRONMENTAL SAFETY MANAGEMENT Implemented safety standards of care: -[place] to unit & environment -Adequate room lighting -Bed in low and locked position -Call light within reach -Personal items within reach -Traffic path in room free of clutter -Non-slip footwear -Upper/half length side rails up for bed mobility -Sensory aids within reach -Encourage patient to utilize sensory support NEUROLOGICAL Neurological Orientation: Oriented x4 Level of Consciousness (AVPU): Alert = Appears aware of and responsive to the environment on their own. Follows commands, opens eyes spontaneously, and tracks objects. Affect/behavior: Cooperative Calm NEUROMUSCULAR/NEUROVASCULAR EXTREMITIES ASSESSMENT Strength: Edge Burnisher Bilateral: Moderate Upper Extremity Bilateral: Full strength Unequal Upper Extremity Strength: Right: Full strength Left: Moves against some resistance Lower Extremity Bilateral: Full strength Temperature: Upper Extremity Temperature Bilateral: Warm Lower Extremity Temperature Bilateral: Warm CARDIOVASCULAR Heart Rate/Rhythm (without personnel monitor): Regular Cardiac Rhythm Analysis: Normal Sinus Rhythm Telemetry Transmitter Pack #: 93 Capillary Refill: All 4 extremities, less than or equal to 3 seconds. Peripheral Pulses: All 4 extremities, 3+ normal. Edema: Present Generalized Location: LUE Cardiovascular - Embolism Prevention: Comment: apixaban RESPIRATORY Respirations: Unlabored Pattern: Regular Breath Sounds Auscultated: Anterior / Lateral Left Upper Lobe: Clear Right Upper Lobe: Clear Right Middle Lobe: Clear Left Lower Lobe: Clear Right Lower Lobe: Clear GASTROINTESTINAL Last bowel movement: 03/30/24 Passing flatus Elimination: Continent Abdominal Description: Rounded Palpation: Soft, Non-tender Bowel Sounds: RUQ: Active LUQ: Active RLQ: Active LLQ: Active GENITOURINARY Elimination: Continent Pt received HD 3/29 & 3/30. Scheduled again for 4/1. LUE fistula + bruit, + thrill, LUE swollen and bruised INTEGUMENTARY/SKIN/WOUND - (INCLUDING AKIKO) SEE NOTE: VAAES SKIN INPECTION/ASSESSMENT IV LINES Peripheral IV: Line #1: Assessment: Location: Right, Forearm Gauge: 20 Dressing Condition: Clean, dry, intact Site Condition: No redness, swelling, pain Line Status: Flushed PSYCHOSOCIAL Type of Emotional Support Provided: 1:1 discussion, Treatment discussion Pt lying in bed eating ice cream and watching tv. Pt had home eye drops at the bedside. This RN explained that home meds should stay at home and the MD must order them to be taken here. Medications must be scanned during administration. This RN spoke with Anibal PALOMARES about the pataday drops. No new order received tonight. Call light in reach. /edwar/ MOISES BAER RN REGISTERED NURSE Signed: 01/10/2024 23:15 MOISES MEDLEY [facility] Jan 10, 2024 06:09 PM NURSING INPATIENT NOTE: LOCAL TITLE: [facility] ACUTE INPATIENT NSG SHIFT ASSESSMENT STANDARD TITLE: NURSING INPATIENT NOTE DATE OF NOTE: JAN 10, 2024@18:09 ENTRY DATE: JAN 10, 2024@18:09:47 AUTHOR: ANNAMARIA ACOSTA COSIGNER: URGENCY: STATUS: COMPLETED Version 2.2 Charting in accordance with [facility] STANDARD ([facility]AES) ACUTE INPATIENT/REHABILITATION NURSING ADMISSION SCREENING, ASSESSMENT, AND STANDARDS OF CARE REASSESSMENT INTEGUMENTARY/SKIN/WOUND - (INCLUDING AKIKO) SEE NOTE: VAAES SKIN INPECTION/ASSESSMENT PAIN ASSESSMENT Patient's acceptable pain goal: 3 Sometimes distracts me Are you currently experiencing pain? No: Pain Score: 4 VARGAS FALL SCALE & TIPS PROGRAM Vargas Fall Scale: The Vargas Fall scale was performed and score was 45. This is indicative of high risk for falls. History of falling: immediate or within 3 months? No Secondary diagnosis: Yes Ambulatory aid: None/bedrest/nurse assist Intravenous therapy/Heparin lock: Yes Gait/Transferring: Weakness Mental Status: Oriented to own ability/knows own limitations Fall Tailoring Interventions for Patient Safety (TIPS) Fall TIPS initiated with patient: Yes Interventions: Communicate recent fall or risk of harm Fall TIPS reviewed with patient: Yes Interventions: Communicate recent fall or risk of harm ENVIRONMENTAL SAFETY MANAGEMENT Implemented safety standards of care: -[place] to unit & environment -Adequate room lighting -Bed in low and locked position -Call light within reach -Personal items within reach -Traffic path in room free of clutter -Non-slip footwear -Upper/half length side rails up for bed mobility -Sensory aids within reach -Encourage patient to utilize sensory support NEUROLOGICAL Neurological Orientation: Oriented x4 Level of Consciousness (AVPU): Alert = Appears aware of and responsive to the environment on their own. Follows commands, opens eyes spontaneously, and tracks objects. Affect/behavior: Cooperative Calm NEUROMUSCULAR/NEUROVASCULAR EXTREMITIES ASSESSMENT Strength: Edge Burnisher Bilateral: Strong Upper Extremity Bilateral: Full strength Lower Extremity Bilateral: Full strength Sensation: Upper Extremity Sensation Bilateral: Intact Lower Extremity Sensation Bilateral: Intact Temperature: Upper Extremity Temperature Bilateral: Warm Lower Extremity Temperature Bilateral: Warm CARDIOVASCULAR Heart Sounds: Normal (S1S2) Heart Rate/Rhythm (without personnel monitor): Regular Cardiac Rhythm Analysis: Normal Sinus Rhythm Telemetry Transmitter Pack #: 93 Capillary Refill: R Hand: Less than or equal to 3 seconds L Hand: Less than or equal to 3 seconds R Foot: Greater than 3 seconds L Foot: Greater than 3 seconds Peripheral Pulses: R Radial: 3+ Normal L Radial: 3+ Normal R Dorsalis Pedis: 2+ Weak L Dorsalis Pedis: 2+ Weak R Posterior Tibial: L Posterior Tibial: R Popliteal: L Popliteal: Edema: Present Dependent Location: BLE RESPIRATORY Respirations: Unlabored Pattern: Regular Breath Sounds Auscultated: Anterior only Left Upper Lobe: Clear Right Upper Lobe: Clear Right Middle Lobe: Clear Left Lower Lobe: Clear Right Lower Lobe: Clear GASTROINTESTINAL Bowel movement reported by patient-unwitnessed Elimination: Continent Abdominal Description: Rounded Palpation: Soft, Non-tender Bowel Sounds: RUQ: Active LUQ: Active RLQ: Active LLQ: Active GENITOURINARY Elimination: Continent Color/Characteristic: Clear Yellow INTEGUMENTARY/SKIN/WOUND - (INCLUDING AKIKO) SEE NOTE: VAAES SKIN INPECTION/ASSESSMENT ACTIVITIES OF DAILY LIVING Hygiene ADLs: Oral Care: Non-ventilator patient: Patient teeth brushed: Independently MOBILITY /es/ ANNAMARIA ACOSTA RN Signed: 01/10/2024 18:11 ANNAMARIA ACOSTA [facility] Jan 10, 2024 04:00 PM RESPIRATORY THERAPY NOTE: LOCAL TITLE: RESPIRATORY THERAPY STL STANDARD TITLE: RESPIRATORY THERAPY NOTE DATE OF NOTE: JAN 10, 2024@16:00 ENTRY DATE: JAN 10, 2024@16:01:02 AUTHOR: CAROLANN SIHNA EXP COSIGNER: URGENCY: STATUS: COMPLETED Machine on stand by. /edwar/ CAROLANN SINHA Respiratory Therapist Signed: 01/10/2024 16:01 CAROLANN SINHA [facility] Jan 10, 2024 11:30 AM CARDIOLOGY NOTE: LOCAL TITLE: CARDIOLOGY TELEMETRY STL STANDARD TITLE: CARDIOLOGY NOTE DATE OF NOTE: JAN 10, 2024@11:30 ENTRY DATE: JAN 10, 2024@11:30:26 AUTHOR: BROOKLYN GAYLE EXP COSIGNER: URGENCY: STATUS: COMPLETED Telemetry reviewed: Normal Sinus Rhythm w\ 1 AVB INDIGO VAT TENDER CLOTH #: 93 RATE: 60s SHIFT: 7-3 Shift COMMENT: /edwar/ BROOKLYN GAYLE AUTOMOTIVE TIRE TECHNICIAN Signed: 01/10/2024 11:30 BROOKLYN GAYLE [facility] Jan 10, 2024 09:04 AM NURSING INPATIENT NOTE: LOCAL TITLE: [facility] ACUTE INPATIENT NSG SHIFT ASSESSMENT STANDARD TITLE: NURSING INPATIENT NOTE DATE OF NOTE: JAN 10, 2024@09:04 ENTRY DATE: JAN 10, 2024@09:04:14 AUTHOR: ANNAMARIA ACOSTA EXP COSIGNER: URGENCY: STATUS: COMPLETED Version 2.2 Charting in accordance with [place] APPR[place] STANDARD (TXAES) ACUTE INPATIENT/REHABILITATION NURSING ADMISSION SCREENING, ASSESSMENT, AND STANDARDS OF CARE ASSESSMENT HANDOFF Bedside report and handoff completed Safety check completed PAIN ASSESSMENT Patient's acceptable pain goal: 3 Sometimes distracts me Are you currently experiencing pain? No: Pain Score: 1 VARGAS FALL SCALE & TIPS PROGRAM Vargas Fall Scale: The Vargas Fall scale was performed and score was 45. This is indicative of high risk for falls. History of falling: immediate or within 3 months? No Secondary diagnosis: Yes Ambulatory aid: None/bedrest/nurse assist Intravenous therapy/Heparin lock: Yes Gait/Transferring: Weakness Mental Status: Oriented to own ability/knows own limitations Fall Tailoring Interventions for Patient Safety (TIPS) Fall TIPS initiated with patient: Yes Interventions: Communicate recent fall or risk of harm Fall TIPS reviewed with patient: Yes Interventions: Communicate recent fall or risk of harm ENVIRONMENTAL SAFETY MANAGEMENT Implemented safety standards of care: -[place] to unit & environment -Adequate room lighting -Bed in low and locked position -Call light within reach -Personal items within reach -Traffic path in room free of clutter -Non-slip footwear -Upper/half length side rails up for bed mobility -Sensory aids within reach -Encourage patient to utilize sensory support NEUROLOGICAL Neurological Orientation: Oriented x4 Level of Consciousness (AVPU): Alert = Appears aware of and responsive to the environment on their own. Follows commands, opens eyes spontaneously, and tracks objects. Affect/behavior: Cooperative Calm NEUROMUSCULAR/NEUROVASCULAR EXTREMITIES ASSESSMENT Strength: Edge Burnisher Bilateral: Strong Upper Extremity Bilateral: Full strength Lower Extremity Bilateral: Full strength Sensation: Upper Extremity Sensation Bilateral: Intact Lower Extremity Sensation Bilateral: Intact Temperature: Upper Extremity Temperature Bilateral: Warm Lower Extremity Temperature Bilateral: Warm CARDIOVASCULAR Heart Sounds: Normal (S1S2) Heart Rate/Rhythm (without personnel monitor): Regular Cardiac Rhythm Analysis: Normal Sinus Rhythm Telemetry Transmitter Pack #: 93 Capillary Refill: R Hand: Less than or equal to 3 seconds L Hand: Less than or equal to 3 seconds R Foot: Greater than 3 seconds L Foot: Greater than 3 seconds Peripheral Pulses: R Radial: 3+ Normal L Radial: 3+ Normal R Dorsalis Pedis: 2+ Weak L Dorsalis Pedis: 2+ Weak R Posterior Tibial: L Posterior Tibial: R Popliteal: L Popliteal: Edema: Present Dependent Location: BLE RESPIRATORY Respirations: Unlabored Pattern: Regular Breath Sounds Auscultated: Anterior only Left Upper Lobe: Clear Right Upper Lobe: Clear Right Middle Lobe: Clear Left Lower Lobe: Clear Right Lower Lobe: Clear GASTROINTESTINAL Bowel movement reported by patient-unwitnessed Elimination: Continent Abdominal Description: Rounded Palpation: Soft, Non-tender Bowel Sounds: RUQ: Active LUQ: Active RLQ: Active LLQ: Active GENITOURINARY Elimination: Continent Color/Characteristic: Clear Yellow INTEGUMENTARY/SKIN/WOUND - (INCLUDING AKIKO) SEE NOTE: VAAES SKIN INPECTION/ASSESSMENT ACTIVITIES OF DAILY LIVING Hygiene ADLs: Oral Care: Non-ventilator patient: Patient teeth brushed: Independently MOBILITY Mobility Status: Independent: Able to stand and step without staff assistance Gait: Steady IV LINES Peripheral IV: Line #1: Assessment: Location: Right, Forearm Gauge: 20 Dressing Condition: Clean, dry, intact Site Condition: No redness, swelling, pain Line Status: Flushed PSYCHOSOCIAL Type of Emotional Support Provided: 1:1 discussion /es/ ANNAMARIA ACOSTA RN Signed: 01/10/2024 09:15 ANNAMARIA ACOSTA [facility] Jan 10, 2024 08:59 AM NURSING NOTE: LOCAL TITLE: [facility] SKIN INSPECTION/ASSESSMENT STANDARD TITLE: NURSING NOTE DATE OF NOTE: JAN 10, 2024@08:59 ENTRY DATE: JAN 10, 2024@09:01:37 AUTHOR: ANNAMARIA ACOSTA EXP COSIGNER: URGENCY: STATUS: COMPLETED INITIAL SKIN INSPECTION/ASSESSMENT SKIN INSPECTION: Skin Color: Usual for ethnicity Skin Temperature: Warm Skin Moisture: Normal Skin Turgor: Elastic (normal/immediate) Akiko Skin Assessment: The patient's Akiko Scale Score is 20. The patient is considered not at risk for development of pressure ulcers/injuries. Sensory perception -- ability to respond meaningfully to pressure-related discomfort No impairment. Moisture -- degree to which skin is exposed to moisture Rarely moist. Activity -- ability to change and control body position Walks occasionally. Mobility -- ability to change and control body position Slightly limited. Nutrition -- usual food intake patterns Adequate. Friction and shear No apparent problem. INTERVENTIONS: The pressure injury interventions were not needed - patient/resident is not at risk. Localized abnormality: Bruising: Location(s): [place] /edwar/ ANNAMARIA ACOSTA RN Signed: 01/10/2024 09:02 ANNAMARIA ACOSTA [facility] Jan 10, 2024 08:58 AM NURSING NOTE: LOCAL TITLE: [facility] PROGRESS NOTE STL STANDARD TITLE: NURSING NOTE DATE OF NOTE: JAN 10, 2024@08:58 ENTRY DATE: JAN 10, 2024@08:58:33 AUTHOR: ANNAMARIA ACOSTA EXP COSIGNER: URGENCY: STATUS: COMPLETED 0800 VSS; pt denies pain; /edwar/ ANNAMARIA ACOSTA RN Signed: 01/10/2024 08:59 ANNAMARIA ACOSTA [facility] Jan 10, 2024 07:38 AM INTERNAL MEDICINE INPATIENT NOTE: LOCAL TITLE: MEDICINE GENERAL INPATIENT NOTE STANDARD TITLE: INTERNAL MEDICINE INPATIENT NOTE DATE OF NOTE: JAN 10, 2024@07:38 ENTRY DATE: JAN 10, 2024@07:38:44 AUTHOR: DIANE VELEZ EXP COSIGNER: MARLEEN LOMAX URGENCY: STATUS: COMPLETED Internal Medicine Daily Progress Note 68 year old MALE admitted on Dec 23:21 for Last Admission: 01/07/24 11:21:59 pm Admit Dx: GENERALIZED WEAKNESS. Brief HPI: 68 yo M with a hx of HTN, DM, HLD, gout, jonah, chronic a fib and trigger finger and ckd 5 presented to the ED for progressive symptoms of fatigue, lethargy, poor appetite. He reports these symptoms started yesterday. He reports adherence to all his meds. Denied N/v, dysguesia. He appeared fatigued and had mild asterixis. On arrival to the ED, he was HD stable. Labs notable for BUN: 93, Cr: 8.88, CO2: 13, K : 5.7. EKG showed prolonged HI interval and hyperacute T waves in leads V1 and V2. He was given 2 amps of bicarb and admitted to the Medicine service for further evaluation. Nephrology was consulted and initiated HD the following AM with resolution of electrolyte derangements. Subjective Complaints: Pt resting comfortably in bed this AM with good pain control on oxy 2.5 mg q8h PRN. Reports pain 3/10. No issues with eating breakfast. Denies fevers, chills, nausea, vomiting, dizziness, neuropathy. Still producing urine. Active Inpatient Medications: 1) OXYCODONE (UD) 5MG/5ML SOLN,ORAL PO Q8H PRN 2nd line pain 2) APIXABAN (PA-F) TAB,ORAL PO BID 5MG 3) ATORVASTATIN TAB PO QPM 80MG 4) CALCITRIOL CAP,ORAL PO DAILY 0.5MCG 5) CARVEDILOL TAB PO CC BID 6) MAGNESIUM OXIDE TAB PO DAILY 400MG 7) NIFEDIPINE (SUSTAINED RELEASE) TAB,SA PO QDAILY 90MG 8) OMEPRAZOLE CAP,EC PO QAMAC 20MG 9) TAMSULOSIN CAP,ORAL PO BID PC 10) GLUCAGON INJ IM PRN 1MG/1VIAL 11) GLUCOSE TAB,CHEWABLE PO PRN 16GM 12) DEXTROSE 50% INJ,SOLN IVP PRN 50 ML 13) OLOPATADINE HCL 0.2% SOLN,OPH OU QDAILY 1 DROP 14) INSULIN ASPART (NOVOLOG) INJ SQ TID AC SLIDING SCALE 15) INSULIN ASPART (NOVOLOG) INJ SQ QHS SLIDING SCALE 16) SODIUM BICARBONATE TAB PO TID 1300MG 17) PROPYLENE GLYCOL SOLN,OPH OU QID PRN For dry eyes 18) ACETAMINOPHEN TAB PO Q6H PRN 500MG 19) LIDOCAINE 5% OINT,TOP TOP QID PRN LIGHTLY Vital Signs: Pulse: 68 (01/09/2024 17:02) BP: 147/78 (01/09/2024 17:02) RESP: 18 (01/09/2024 17:02) Tmax: 97.9 F [36.6 C] (01/09/2024 17:02) Pulse Oximetry: Measurement DT POx (L/MIN)(%) 01/09/2024 17:02 96 01/09/2024 12:32 98 01/09/2024 07:25 98 01/09/2024 01:29 96 Weight: 213.7 lb [96.93 kg] (01/09/2024 07:25) PHYSICAL EXAM: General: Pleasant NAD, AAO x 3 HEENT: AT, NC, PERRL, MMM, no oral pharyngeal erythema or exudate, poor dentition Neck: Supple, No CAD, No JVD Heart: RRR, No mgr Lungs: Clear, no wrr Abdomen: NT/ND, BS normoactive Vascular: 2/4 radial and dorsalis pedis pulses Extremities: No LE Edema, warm hands and feet Neuro: CN 2-12 GI, no focal deficits Skin: No abrasions, ulcers or ecchymosis LUE AVF: c/d/i with mild tenderness Labs: Reviewed Imaging: Reviewed Microbiology: Reviewed Assessment/Plan: #Progression of CKD -> ESRD #Hyperkalemia #HyperPhos -s/p HD 01/07, 01/08 with next iHD on 01/11/24 -Nephro on board, appreciate assistance -Renal diet, renal vites -LUE fistula with good thrill -Cont tele #AVF pain -lidocaine ointment QID PRN -oxycodone 2.5 mg q8h PRN #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 Lomax /edwar/ Tati Burgos MD Resident Physician Signed: 01/10/2024 10:31 /edwar/ MARLEEN LOMAX MD// INTERNAL MEDICINE ATTENDING Cosigned: 01/10/2024 11:31 MARIELAJOHN TATI BURGOS [facility] Jan 10, 2024 04:28 AM CARDIOLOGY NOTE: LOCAL TITLE: CARDIOLOGY TELEMETRY STL STANDARD TITLE: CARDIOLOGY NOTE DATE OF NOTE: JAN 10, 2024@04:28 ENTRY DATE: JAN 10, 2024@04:28:56 AUTHOR: BROOKLYN GAYLE EXP COSIGNER: URGENCY: STATUS: COMPLETED Telemetry reviewed: Normal Sinus Rhythm INDIGO VAT TENDER CLOTH #: 93 RATE: 60s-70s SHIFT: 11-7 Shift COMMENT: /edwar/ BROOKLYN GAYLE AUTOMOTIVE TIRE TECHNICIAN Signed: 01/10/2024 04:29 BROOKLYN GAYLE [facility] Jan 10, 2024 12:38 AM NURSING INPATIENT NOTE: LOCAL TITLE: [facility] NURSING FREQUENT DOCUMENTATION STANDARD TITLE: NURSING INPATIENT NOTE DATE OF NOTE: JAN 10, 2024@00:38 ENTRY DATE: JAN 10, 2024@00:38:49 AUTHOR: AGUSTIN VINSON EXP COSIGNER: URGENCY: STATUS: COMPLETED Version 2.4 Charting in accordance with [place] APPROVED [place] STANDARD (TXAES) ACUTE INPATIENT/REHABILITATION NURSING ADMISSION SCREENING, ASSESSMENT, AND STANDARDS OF CARE ENVIRONMENTAL SAFETY MANAGEMENT Implemented safety standards of care: -[place] to unit & environment -Adequate room lighting -Bed in low and locked position -Call light within reach -Personal items within reach -Traffic path in room free of clutter -Non-slip footwear -Upper/half length side rails up for bed mobility -Sensory aids within reach -Encourage patient to utilize sensory support /edwar/ AGUSTIN VINSON REGISTERED NURSE Signed: 01/10/2024 00:39 AGUSTIN VINSON [facility] Jan 09, 2024 09:01 PM NURSING INPATIENT NOTE: LOCAL TITLE: [facility] NURSING FREQUENT DOCUMENTATION STANDARD TITLE: NURSING INPATIENT NOTE DATE OF NOTE: JAN 09, 2024@21:01 ENTRY DATE: JAN 09, 2024@21:01:16 AUTHOR: AGUSTIN VINSON EXP COSIGNER: URGENCY: STATUS: COMPLETED Version 2.4 Charting in accordance with [facility] [place] STANDARD ([facility] ACUTE INPATIENT/REHABILITATION NURSING ADMISSION SCREENING, ASSESSMENT, AND STANDARDS OF CARE NATIONAL EARLY WARNING SCORE (NEWS) The vital signs below were used for scoring: Temperature: 98.1 Pulse: 69 Blood Pressure: 146/79 Respiration: 18 Pulse Oximetry: 96 The NEWS total is 2. 1. Temperature (C/F): Score = 0 36.1 - 38.0 C (96.9 - 100.4 F) 2. Pulse: Score = 2 111-130 3. Respirations: Score = 0 12-20 4. Blood Pressure (Only Systolic BP, mmHg): Score = 0 111-219 5. Pulse Oximetry: Score = 0 96% or greater 6. Supplemental oxygen in use: Score = 0 No 7. AVPU: Score = 0 Alert /es/ AGUSTIN VINSON REGISTERED NURSE Signed: 01/09/2024 21:03 AGUSTIN VINSON [facility] Jan 09, 2024 09:00 PM NURSING NOTE: LOCAL TITLE: [facility] SKIN INSPECTION/ASSESSMENT STANDARD TITLE: NURSING NOTE DATE OF NOTE: JAN 09, 2024@21:00 ENTRY DATE: JAN 09, 2024@21:00:14 AUTHOR: AGUSTIN VINSON EXP COSIGNER: URGENCY: STATUS: COMPLETED [facility] SKIN INSPECTION/ASSESSMENT Has ADDENDA SKIN REINSPECTION/REASSESSMENT SKIN INSPECTION: Skin Color: Usual for ethnicity Skin Temperature: Warm Skin Moisture: Normal Skin Turgor: Elastic (normal/immediate) Akiko Skin Assessment: The patient's Akiko Scale Score is 21. The patient is considered not at risk for development of pressure ulcers/injuries. Sensory perception -- ability to respond meaningfully to pressure-related discomfort No impairment. Moisture -- degree to which skin is exposed to moisture Rarely moist. Activity -- ability to change and control body position Walks occasionally. Mobility -- ability to change and control body position No limitation. Nutrition -- usual food intake patterns Adequate. Friction and shear No apparent problem. INTERVENTIONS: No change in previous interventions as listed below [facility] Pressure Injury Interventions 01/08/2024 [facility] Pressure Injury Int Not Needed RISK FACTORS THAT INCREASE RISK FOR DEVELOPING PRESSURE INJURIES The patient/resident does not have any additional risk factors. SKIN INTEGRITY: Intact Localized abnormality: Bruising: Location(s): LEFT UPPER ARM /patrice VINSON REGISTERED NURSE Signed: 01/09/2024 21:01 01/10/2024 ADDENDUM STATUS: COMPLETED NO CHANGES NOTED /patrice VINSON REGISTERED NURSE Signed: 01/10/2024 00:37 AGUSTIN VINSON [facility] Jan 09, 2024 08:55 PM NURSING INPATIENT NOTE: LOCAL TITLE: [facility] ACUTE INPATIENT NSG SHIFT ASSESSMENT STANDARD TITLE: NURSING INPATIENT NOTE DATE OF NOTE: JAN 09, 2024@20:55 ENTRY DATE: JAN 09, 2024@20:55:22 AUTHOR: AGUSTIN VINSON EXP COSIGNER: URGENCY: STATUS: COMPLETED [facility] ACUTE INPATIENT NSG SHIFT ASSESSMENT Has ADDENDA Version 2.2 Charting in accordance with [facility] STANDARD (TXAES) ACUTE INPATIENT/REHABILITATION NURSING ADMISSION SCREENING, ASSESSMENT, AND STANDARDS OF CARE ASSESSMENT HANDOFF Bedside report and handoff completed Safety check completed PAIN ASSESSMENT Patient's acceptable pain goal: 0 No pain Are you currently experiencing pain? Yes - DVPRS scale used to assess Location: [place] Defense and Veterans Pain Rating Scale (DVPRS): 7 Focus of attention, prevents doing daily activities Pain Score: 7 VARGAS FALL SCALE & TIPS PROGRAM Vargas Fall Scale: The Vargas Fall scale was performed and score was 45. This is indicative of high risk for falls. History of falling: immediate or within 3 months? No Secondary diagnosis: Yes Ambulatory aid: None/bedrest/nurse assist Intravenous therapy/Heparin lock: Yes Gait/Transferring: Weakness Mental Status: Oriented to own ability/knows own limitations Fall Tailoring Interventions for Patient Safety (TIPS) Fall TIPS initiated with patient: No Comment: REVIEWED Fall TIPS reviewed with patient: Yes Interventions: Communicate recent fall or risk of harm ENVIRONMENTAL SAFETY MANAGEMENT Implemented safety standards of care: -[place] to unit & environment -Adequate room lighting -Bed in low and locked position -Call light within reach -Personal items within reach -Traffic path in room free of clutter -Non-slip footwear -Upper/half length side rails up for bed mobility -Sensory aids within reach -Encourage patient to utilize sensory support NEUROLOGICAL Neurological Orientation: Oriented x4 Level of Consciousness (AVPU): Alert = Appears aware of and responsive to the environment on their own. Follows commands, opens eyes spontaneously, and tracks objects. Affect/behavior: Cooperative Calm NEUROMUSCULAR/NEUROVASCULAR EXTREMITIES ASSESSMENT Strength: Edge Burnisher Bilateral: Moderate Upper Extremity Bilateral: Full strength Lower Extremity Bilateral: Full strength Sensation: Upper Extremity Sensation Bilateral: Intact Lower Extremity Sensation Bilateral: Intact Temperature: Upper Extremity Temperature Bilateral: Warm Lower Extremity Temperature Bilateral: Warm CARDIOVASCULAR Heart Sounds: Normal (S1S2) Cardiac Rhythm Analysis: Normal Sinus Rhythm Telemetry Transmitter Pack #: 93 Capillary Refill: R Hand: Less than or equal to 3 seconds L Hand: Less than or equal to 3 seconds R Foot: Greater than 3 seconds L Foot: Greater than 3 seconds Peripheral Pulses: R Radial: 3+ Normal L Radial: 3+ Normal R Dorsalis Pedis: 2+ Weak L Dorsalis Pedis: 2+ Weak R Posterior Tibial: L Posterior Tibial: R Popliteal: L Popliteal: Edema: Present Dependent Location: BILAT LE RESPIRATORY Respirations: Unlabored Pattern: Regular Breath Sounds Auscultated: Anterior only Right Upper Lobe: Clear Left Upper Lobe: Clear Right Middle Lobe: Clear Right Lower Lobe: Diminished Left Lower Lobe: Diminished GASTROINTESTINAL Last bowel movement: 01/09/2024 Elimination: Continent Abdominal Description: Rounded Palpation: Soft, Non-tender Bowel Sounds: RUQ: Active LUQ: Active RLQ: Active LLQ: Active GENITOURINARY Elimination: Continent INTEGUMENTARY/SKIN/WOUND - (INCLUDING AKIKO) SEE NOTE: VAAES SKIN INPECTION/ASSESSMENT IV LINES Peripheral IV: Line #1: Assessment: Location: Right, Wrist Gauge: 20 Dressing Condition: Clean, dry, intact Site Condition: No redness, swelling, pain Line Status: Flushed PSYCHOSOCIAL Type of Emotional Support Provided: Disease process discussion /edwar/ AGUSTIN VINSON REGISTERED NURSE Signed: 01/09/2024 21:00 01/10/2024 ADDENDUM STATUS: COMPLETED AV FISTULA TO LEFT ARM POSITIVE FOR BRUIT AND THRILL /es/ AGUSTIN VINSON REGISTERED NURSE Signed: 01/10/2024 05:15 AGUSTIN VINSON . [facility] Jan 09, 2024 08:10 PM CARDIOLOGY NOTE: LOCAL TITLE: CARDIOLOGY TELEMETRY ST STANDARD TITLE: CARDIOLOGY NOTE DATE OF NOTE: JAN 09, 2024@20:10 ENTRY DATE: JAN 09, 2024@20:10:09 AUTHOR: TRISHA GARY COSIGNER: URGENCY: STATUS: COMPLETED Telemetry reviewed: Normal Sinus Rhythm 1'avb ivcd INDIGO VAT TENDER CLOTH #: 93 RATE: 60s80s SHIFT: 3-11 Shift COMMENT: /edwar/ TRISHA GARY AUTOMOTIVE TIRE TECHNICIAN Signed: 01/09/2024 20:10 TRISHA GARY [facility] Jan 09, 2024 07:17 PM NURSING INPATIENT NOTE: LOCAL TITLE: [facility] NURSING FREQUENT DOCUMENTATION STANDARD TITLE: NURSING INPATIENT NOTE DATE OF NOTE: JAN 09, 2024@19:17 ENTRY DATE: JAN 09, 2024@19:17:59 AUTHOR: JENNYFER JERONIMO COSIGNER: URGENCY: STATUS: COMPLETED Version 2.4 Charting in accordance with [facility] STANDARD (TXAES) ACUTE INPATIENT/REHABILITATION NURSING ADMISSION SCREENING, ASSESSMENT, AND STANDARDS OF CARE ACTIVITIES OF DAILY LIVING Hygiene ADLs: Dressing: Upper Body: Independent Lower Body: Independent Eating: Independent Foot Care: Inspection Hand Hygiene: Performed post toileting Performed pre meals/snacks Oral Care: Non-ventilator patient: Patient teeth brushed: Independently self Pericare: Soap and water Independent Personal Care: Shower Independent Toileting: Independent ENVIRONMENTAL SAFETY MANAGEMENT Implemented safety standards of care: -[place] to unit & environment -Adequate room lighting -Bed in low and locked position -Call light within reach -Personal items within reach -Traffic path in room free of clutter -Non-slip footwear -Upper/half length side rails up for bed mobility -Sensory aids within reach -Encourage patient to utilize sensory support GASTROINTESTINAL No bowel movement reported by patient Elimination: Continent GENITOURINARY Elimination: Continent = ORAL INTAKE (PERCENTAGE OF MEAL EATEN) = Lunch: Dinner: 76% - 100% /es/ JENNYFER JERONIMO Fusion Juncture Grinder Signed: 01/09/2024 19:19 JENNYFER JERONIMO [facility] Jan 09, 2024 06:19 PM INTERNAL MEDICINE INPATIENT NOTE: LOCAL TITLE: MEDICINE GENERAL INPATIENT NOTE STANDARD TITLE: INTERNAL MEDICINE INPATIENT NOTE DATE OF NOTE: JAN 09, 2024@18:19 ENTRY DATE: JAN 09, 2024@18:19:20 AUTHOR: DIANE VELEZ EXP COSIGNER: MARLEEN LOMAX URGENCY: STATUS: COMPLETED MEDICINE GENERAL INPATIENT NOTE Has ADDENDA Internal Medicine Daily Progress Note 68 year old MALE admitted on Dec 23:21 for Last Admission: 01/07/24 11:21:59 pm Admit Dx: GENERALIZED WEAKNESS. Brief HPI: 68 yo M with a hx of HTN, DM, HLD, gout, jonah, chronic a fib and trigger finger and ckd 5 presented to the ED for progressive symptoms of fatigue, lethargy, poor appetite. He reports these symptoms started yesterday. He reports adherence to all his meds. Denied N/v, dysguesia. He appeared fatigued and had mild asterixis. On arrival to the ED, he was HD stable. Labs notable for BUN: 93, Cr: 8.88, CO2: 13, K : 5.7. EKG showed prolonged HI interval and hyperacute T waves in leads V1 and V2. He was given 2 amps of bicarb and admitted to the Medicine service for further evaluation. Nephrology was consulted and initiated HD the following AM with resolution of electrolyte derangements. Subjective Complaints: Pt underwent second dose of HD today. Reports severe pain in his AVF which persists even while not getting dialysis. Reports severe neuropathic pain and refusing Tylenol. He also reports some nausea, vomiting. Appetitie intact. Will focus on pain control at this time. Active Inpatient Medications: 1) OXYCODONE (UD) 5MG/5ML SOLN,ORAL PO Q8H PRN 2nd line pain 2) APIXABAN (PA-F) TAB,ORAL PO BID 5MG 3) ATORVASTATIN TAB PO QPM 80MG 4) CALCITRIOL CAP,ORAL PO DAILY 0.5MCG 5) CARVEDILOL TAB PO CC BID 6) MAGNESIUM OXIDE TAB PO DAILY 400MG 7) NIFEDIPINE (SUSTAINED RELEASE) TAB,SA PO QDAILY 90MG 8) OMEPRAZOLE CAP,EC PO QAMAC 20MG 9) TAMSULOSIN CAP,ORAL PO BID PC 10) GLUCAGON INJ IM PRN 1MG/1VIAL 11) GLUCOSE TAB,CHEWABLE PO PRN 16GM 12) DEXTROSE 50% INJ,SOLN IVP PRN 50 ML 13) OLOPATADINE HCL 0.2% SOLN,OPH OU QDAILY 1 DROP 14) INSULIN ASPART (NOVOLOG) INJ SQ TID AC SLIDING SCALE 15) INSULIN ASPART (NOVOLOG) INJ SQ QHS SLIDING SCALE 16) SODIUM BICARBONATE TAB PO TID 1300MG 17) PROPYLENE GLYCOL SOLN,OPH OU QID PRN For dry eyes 18) ACETAMINOPHEN TAB PO Q6H PRN 500MG 19) LIDOCAINE 5% OINT,TOP TOP QID PRN LIGHTLY Vital Signs: Pulse: 68 (01/09/2024 17:02) BP: 147/78 (01/09/2024 17:02) RESP: 18 (01/09/2024 17:02) Tmax: 97.9 F [36.6 C] (01/09/2024 17:02) Pulse Oximetry: Measurement DT POx (L/MIN)(%) 01/09/2024 17:02 96 01/09/2024 12:32 98 01/09/2024 07:25 98 01/09/2024 01:29 96 Weight: 213.7 lb [96.93 kg] (01/09/2024 07:25) Intake/Output: PHYSICAL EXAM: General: Pleasant NAD, AAO x 3 HEENT: AT, NC, PERRL, MMM, no oral pharyngeal erythema or exudate, poor dentition Neck: Supple, No CAD, No JVD Heart: RRR, No mgr Lungs: Clear, no wrr Abdomen: NT/ND, BS normoactive Vascular: 2/4 radial and dorsalis pedis pulses Extremities: No LE Edema, warm hands and feet Neuro: CN 2-12 GI, no focal deficits Skin: No abrasions, ulcers or ecchymosis Webster/line: In place. Recent Labs: BASIC METABOLIC PANEL: SODIUM 136 mEq/L 01/09/2024 14:00 POTASSIUM 4.0 mEq/L 01/09/2024 14:00 CHLORIDE 101 mEq/L 01/09/2024 14:00 UREA NITROGEN 46.2 H mg/dL 01/09/2024 14:00 CREATININE 5.13 H mg/dL 01/09/2024 14:00 CALCIUM 8.6 mg/dL 01/09/2024 14:00 CARBON DIOXIDE 23 mEq/L 01/09/2024 14:00 GLUCOSE 177 H mg/dL 01/09/2024 14:00 EGFR (CKD-EPI 2020) 11.5 L* 01/09/2024 14:00 WBC: 9.2 10*3/uL (01/07/24 17:30) HCT: 34.3 % L (01/07/24 17:30) HGB: HGB 11.5 L g/dL 01/07/2024 17:30 Plt: PLT 281 10*3/uL 01/07/2024 17:30 Imaging Date Procedure CPT Status Case # 01/07/2024 CHEST PORTABLE [id number] Verified [id number] 1. Bilateral peribronchial thickening. 2. Patchy bilateral lung opacities likely represent atelectasis. 3. No pneumothorax. READING PHYSICIAN: Madhu Patton M.D. -[phone] 01/07/2024 19:10 [facility] National Teleradiology Program [phone] (For Medical Practitioner Use Only) Attention Patients / Veterans: If you have questions or concerns about these test results, please contact your ordering provider or primary care team. Microbiology: Collection DT Specimen Test Name Result Units Ref Range 01/07/2024 17:30 NASOPH COVID-19 ([facility])Not Detected Ref: Not Detected Comment: Qualitative real-time PCR and RT-PCR to detect viral RNA. A Comment: negative result does not preclude infection with the agent(s) Comment: tested and should not be used as the sole basis for treatment or Comment: other patient management decisions. If negative, but symptoms Comment: persist, consider re-testing. Positive results do not rule out Comment: bacterial infection or co-infection with other viruses. All results Comment: must be combined with clinical observations, patient history, and Comment: epidemiological information for final interpretation. 07/26/2023 18:50 NASOPH COVID-19 ([facility])Not Detected Ref: Not Detected Comment: Qualitative real-time PCR and RT-PCR to detect RNA from SARS-CoV-2 Comment: virus. A negative result does not preclude infection with the Comment: agent(s) tested and should not be used as the sole basis for Comment: treatment or other patient management decisions. If negative, but Comment: symptoms persist, consider re-testing. Positive results do not rule Comment: out bacterial infection or co-infection with other viruses. All Comment: results must be combined with clinical observations, patient Comment: history, and epidemiological information for final interpretation. 06/21/2023 18:05 NASOPH COVID-19 ([facility])Not Detected Ref: Not Detected Comment: Qualitative real-time PCR and RT-PCR to detect viral RNA. A Comment: negative result does not preclude infection with the agent(s) Comment: tested and should not be used as the sole basis for treatment or Comment: other patient management decisions. If negative, but symptoms Comment: persist, consider re-testing. Positive results do not rule out Comment: bacterial infection or co-infection with other viruses. All results Comment: must be combined with clinical observations, patient history, and Comment: epidemiological information for final interpretation. 04/05/2023 10:10 NASOPH COVID-19 ([facility])Not Detected Ref: Not Detected Comment: Qualitative real-time PCR and RT-PCR to detect viral RNA. A Comment: negative result does not preclude infection with the agent(s) Comment: tested and should not be used as the sole basis for treatment or Comment: other patient management decisions. If negative, but symptoms Comment: persist, consider re-testing. Positive results do not rule out Comment: bacterial infection or co-infection with other viruses. All results Comment: must be combined with clinical observations, patient history, and Comment: epidemiological information for final interpretation. 12/12/2022 11:10 NASOPH COVID-19 ([facility])Not Detected Ref: Not Detected 12/23/2021 19:49 NASOPH COVID-19 ([facility])Not Detected Ref: Not Detected 04/16/2021 08:25 NASOPH COVID-19 ([facility])Not Detected Ref: Not Detected 03/07/2021 14:50 NASOPH COVID-19 ([facility])Not Detected Ref: Not Detected Comment: BD MAX 02/25/2021 14:48 NASOPH COVID-19 ([facility])Not Detected Ref: Not Detected Comment: *COVID-19 DIAGNOSTIC PANEL ([facility]) Not Performed: February 25, 2021@17:5 Comment: *THREADER OPERATOR Reason: DUPLICATE SPECIMEN ORDER Comment: BD MAX 08/13/2020 06:15 NURA WALKREID-19 ([facility])Not Detected Ref: Not Detected Assessment/Plan: #Progression of CKD -> ESRD #Hyperkalemia #HyperPhos -s/p HD yesterday and today with next iHD on 01/11/24 -Nephro on board, appreciate assistance -Renal diet, renal vites -LUE fistula with good thrill -Cont tele #AVF pain -lidocaine ointment QID PRN -oxycodone 2.5 mg q8h PRN #Uremic polyneuropathy -pt did not tolerate gabapentin previously -not a candidate for SNRI given ESRD -discuss another trial of low dose gabapentin vs TCAs #T2DM -Pt's last A1c in 12/05 was 6.0 -Holding Lantus given BGs in 80s - 100s -SSI #HTN -Continue Nifedipine 90 mg daily and Carvedilol 25 mg bid #Hx of Afib s/p Ablation -Continue Eliquis FEN: Current Diet: RENAL DIALYS (01/08/24), Replete Electrolytes PRN BM ppx: none Dvt ppx: apixaban TSL 1 Dispo: Medicine This pt was discussed with Dr. Lomax /edwar/ Tati Burgos MD Resident Physician Signed: 01/09/2024 18:33 /edwar/ MARLEEN LOMAX MD// INTERNAL MEDICINE ATTENDING Cosigned: 01/09/2024 19:25 01/09/2024 ADDENDUM STATUS: COMPLETED I interviewed and examined the patient on 01/09/2024 with the house staff. I reviewed the laboratory and radiologic findings. I reviewed the note created by Dr. Bagley, and agree in general with the data, synthesis, and plan as outlined in his note and discussed on rounds with any additional findings noted below. Reports ongoing pain at LUE AVF site which has persistent since AVF first accessed. AVF bandage C/D/I, +thrill, no surrounding erythema or edema noted. He is also reporting pain in toes of bilateral feet and ongoing pain of primarily 4th digit of R hand. Can trial gabapentin 100 3x weekly if needed for likely peripheral neuropathy. Continue topical lidocaine or Emla cream to AVF, APAP, very low dose oxycodone PRN only for severe pain. /edwar/ MARLEEN LOMAX MD// INTERNAL MEDICINE ATTENDING Signed: 01/09/2024 19:29 TATI ZAVALA [facility] Jan 09, 2024 03:02 PM NURSING INPATIENT NOTE: LOCAL TITLE: TXAES ACUTE INPATIENT NSG SHIFT ASSESSMENT STANDARD TITLE: NURSING INPATIENT NOTE DATE OF NOTE: JAN 09, 2024@15:02 ENTRY DATE: JAN 09, 2024@15:02:43 AUTHOR: CARLEY COSME COSIGNER: URGENCY: STATUS: COMPLETED Version 2.2 Charting in accordance with [place] APPROVED [place] STANDARD (TXAES) ACUTE INPATIENT/REHABILITATION NURSING ADMISSION SCREENING, ASSESSMENT, AND STANDARDS OF CARE REASSESSMENT PAIN ASSESSMENT Patient's acceptable pain goal: 3 Sometimes distracts me Are you currently experiencing pain? Yes - DVPRS scale used to assess Location: left arm Defense and Veterans Pain Rating Scale (DVPRS): 3 Sometimes distracts me Pain Score: 3 NEUROLOGICAL Neurological Orientation: Oriented x4 Level of Consciousness (AVPU): Alert = Appears aware of and responsive to the environment on their own. Follows commands, opens eyes spontaneously, and tracks objects. NEUROMUSCULAR/NEUROVASCULAR EXTREMITIES ASSESSMENT Strength: Edge Burnisher Bilateral: Strong Upper Extremity Bilateral: Full strength Lower Extremity Bilateral: Full strength Sensation: Upper Extremity Sensation Bilateral: Intact Lower Extremity Sensation Bilateral: Intact Temperature: Upper Extremity Temperature Bilateral: Warm Lower Extremity Temperature Bilateral: Warm CARDIOVASCULAR Heart Sounds: Normal (S1S2) Cardiac Rhythm Analysis: Normal Sinus Rhythm Capillary Refill: All 4 extremities, less than or equal to 3 seconds. Peripheral Pulses: All 4 extremities, 3+ normal. Edema: None RESPIRATORY Respirations: Unlabored Pattern: Regular Breath Sounds Auscultated: Anterior and posterior Left Upper Lobe: Clear Right Upper Lobe: Clear Right Middle Lobe: Clear Left Lower Lobe: Clear Right Lower Lobe: Clear GASTROINTESTINAL No bowel movement reported by patient Abdominal Description: Rounded Palpation: Soft Bowel Sounds: RUQ: Active LUQ: Active RLQ: Active LLQ: Active GENITOURINARY Elimination: Continent Supplemental Genitourinary: Dialysis: AV Fistula: Location: left Bruit Present: Yes Thrill Present: Yes /edwar/ CARLEY BAER, RN REGISTERED NURSE Signed: 01/09/2024 15:03 CARLEY COSME [facility] Jan 09, 2024 11:21 AM NURSING INPATIENT NOTE: LOCAL TITLE: VAAES ACUTE INPATIENT NSG SHIFT ASSESSMENT STANDARD TITLE: NURSING INPATIENT NOTE DATE OF NOTE: JAN 09, 2024@11:21 ENTRY DATE: JAN 09, 2024@11:21:52 AUTHOR: CARLEY COSMEER: URGENCY: STATUS: COMPLETED Version 2.2 Charting in accordance with [place] APPROVED [place] STANDARD (VAAES) ACUTE INPATIENT/REHABILITATION NURSING ADMISSION SCREENING, ASSESSMENT, AND STANDARDS OF CARE ASSESSMENT PAIN ASSESSMENT Patient's acceptable pain goal: 3 Sometimes distracts me Are you currently experiencing pain? Yes - DVPRS scale used to assess Location: left arm Defense and Veterans Pain Rating Scale (DVPRS): 3 Sometimes distracts me Pain Score: 3 NEUROLOGICAL Neurological Orientation: Oriented x4 Level of Consciousness (AVPU): Alert = Appears aware of and responsive to the environment on their own. Follows commands, opens eyes spontaneously, and tracks objects. NEUROMUSCULAR/NEUROVASCULAR EXTREMITIES ASSESSMENT Strength: Edge Burnisher Bilateral: Strong Upper Extremity Bilateral: Full strength Lower Extremity Bilateral: Full strength Sensation: Upper Extremity Sensation Bilateral: Intact Lower Extremity Sensation Bilateral: Intact Temperature: Upper Extremity Temperature Bilateral: Warm Lower Extremity Temperature Bilateral: Warm CARDIOVASCULAR Heart Sounds: Normal (S1S2) Cardiac Rhythm Analysis: Normal Sinus Rhythm Capillary Refill: All 4 extremities, less than or equal to 3 seconds. Peripheral Pulses: All 4 extremities, 3+ normal. Edema: None RESPIRATORY Respirations: Unlabored Pattern: Regular Breath Sounds Auscultated: Anterior and posterior Left Upper Lobe: Clear Right Upper Lobe: Clear Right Middle Lobe: Clear Left Lower Lobe: Clear Right Lower Lobe: Clear GASTROINTESTINAL No bowel movement reported by patient Abdominal Description: Rounded Palpation: Soft Bowel Sounds: RUQ: Active LUQ: Active RLQ: Active LLQ: Active GENITOURINARY Elimination: Continent Supplemental Genitourinary: Dialysis: AV Fistula: Location: left Bruit Present: Yes Thrill Present: Yes INTEGUMENTARY/SKIN/WOUND - (INCLUDING AKIKO) SEE NOTE: VAAES SKIN INPECTION/ASSESSMENT MOBILITY Mobility Status: Independent: Gait: Steady IV LINES Peripheral IV: Line #1: Assessment: Location: Right, Forearm Gauge: 20 Dressing Condition: Clean, dry, intact Site Condition: No redness, swelling, pain Line Status: Flushed /es/ CARLEY BAER RN REGISTERED NURSE Signed: 01/09/2024 11:24 CARLEY COSME [facility] Jan 09, 2024 11:20 AM NURSING NOTE: LOCAL TITLE: [facility] SKIN INSPECTION/ASSESSMENT STANDARD TITLE: NURSING NOTE DATE OF NOTE: JAN 09, 2024@11:20 ENTRY DATE: JAN 09, 2024@11:20:50 AUTHOR: CARLEY COSME EXP COSIGNER: URGENCY: STATUS: COMPLETED SKIN REINSPECTION/REASSESSMENT SKIN INSPECTION: Skin Color: Usual for ethnicity Skin Temperature: Warm Skin Moisture: Normal Skin Turgor: Elastic (normal/immediate) INTERVENTIONS: No change in previous interventions as listed below Vaaes Pressure Injury Interventions 01/08/2024 Vaaes Pressure Injury Int Not Needed RISK FACTORS THAT INCREASE RISK FOR DEVELOPING PRESSURE INJURIES The patient/resident does not have any additional risk factors. SKIN INTEGRITY: Intact left arm fistula intact, brui and thrill /edwar/ CARLEY COSME BSN, RN REGISTERED NURSE Signed: 01/09/2024 11:21 CARLEY COSME [facility] Jan 09, 2024 11:01 AM CARDIOLOGY NOTE: LOCAL TITLE: CARDIOLOGY TELEMETRY ST STANDARD TITLE: CARDIOLOGY NOTE DATE OF NOTE: JAN 09, 2024@11:01 ENTRY DATE: JAN 09, 2024@11:01:09 AUTHOR: BROOKLYN GAYLE EXP COSIGNER: URGENCY: STATUS: COMPLETED Telemetry reviewed: Normal Sinus Rhythm w\ 1 AVB INDIGO VAT TENDER CLOTH #: 93 RATE: 60s-70s SHIFT: 7-3 Shift COMMENT: /patrice GAYLE AUTOMOTIVE TIRE TECHNICIAN Signed: 01/09/2024 11:02 BROOKLYN GAYLE [facility] Jan 09, 2024 08:50 AM RESPIRATORY THERAPY NOTE: LOCAL TITLE: RESPIRATORY THERAPY ST STANDARD TITLE: RESPIRATORY THERAPY NOTE DATE OF NOTE: JAN 09, 2024@08:50 ENTRY DATE: JAN 09, 2024@08:50:23 AUTHOR: TAINA DUBOIS COSIGNER: URGENCY: STATUS: COMPLETED Time of Procedure: Dec@08:25 Function: Other Life Sustaining Treatment Orders Device Parameters: IPAP:............ EPEP:............8 O2 Bleed In:.....21 Patient Parameters: Respiratory Rate:. Tidal Volume:..... O2 Saturation:.... Skin barrier was placed on patient: No machine is on standby Recommendations/Plan: USE WHILE SLEEPING /patrice DUBOIS REGISTERED RESPIRATORY THERAPIST Signed: 01/09/2024 08:51 TAINA DUBOIS [facility] Jan 09, 2024 08:08 AM NEPHROLOGY INPATIENT NOTE: LOCAL TITLE: NEPHROLOGY INPATIENT FOLLOW UP ST STANDARD TITLE: NEPHROLOGY INPATIENT NOTE DATE OF NOTE: JAN 09, 2024@08:08 ENTRY DATE: JAN 09, 2024@08:08:51 AUTHOR: JON TAYLOR EXP COSIGNER: CHERRI NEWBY URGENCY: STATUS: COMPLETED NEPHROLOGY INPATIENT FOLLOW UP STL Has ADDENDA RENAL INPATIENT PROGRESS NOTE S: Patient seen and examined while on dialysis. He reports no improvement in his generalized symptoms of fatigue and malaise. VS reviewed with no significant hemodynamic changes overnight. Primary complaint today is pain with accessing his fistula. He was later seen with attending and still complaining of pain. He was asking for something that would allow him to sleep or take the edge off. Denies fever, chills, CP, abdominal pain, NVD. A complete ROS was completed and negative unless mentioned in the interim history. O: Temperature: 97.6 F [36.4 C] (01/09/2024 07:25) Blood Pressure: 155/90 (01/09/2024 07:25) Pulse: 67 (01/09/2024 07:25) Respirations: 18 (01/09/2024 07:25) O2 Saturation: 98% (01/09/2024 07:25) Weight: 213.7 lb [96.93 kg] (01/09/2024 07:25) Height: 69 in [175.3 cm] (11/16/2023 12:36) I/O: Physical Exam Gen: 68M who appears age in no acute distress HENT: NCAT, hearing intact, no nasal discharge, oral mucosa pink moist. Eyes: EOMI, PERRL CV: Normal rate, regular rhythm w/o murmurs, gallops, rubs. Pulm: CLTAB, unlabored breathing, w/o wheezes, rales, rhonchi Abdomen: Soft, non-tender, abdominal scar present w/o rigidity or guarding Ext: No evidence of LE edema. Radial pulses 2+ bilatarally. Neuro: A&Ox3. No focal deficits. Skin: No lesions on visualized skin Access: LUE AVF, functioning on iHD Medications: 1) APIXABAN (PA-F) TAB,ORAL PO BID 5MG 2) ATORVASTATIN TAB PO QPM 80MG 3) CALCITRIOL CAP,ORAL PO DAILY 0.5MCG 4) CARVEDILOL TAB PO CC BID 5) MAGNESIUM OXIDE TAB PO DAILY 400MG 6) NIFEDIPINE (SUSTAINED RELEASE) TAB,SA PO QDAILY 90MG 7) OMEPRAZOLE CAP,EC PO QAMAC 20MG 8) TAMSULOSIN CAP,ORAL PO BID PC 9) GLUCAGON INJ IM PRN 1MG/1VIAL 10) GLUCOSE TAB,CHEWABLE PO PRN 16GM 11) DEXTROSE 50% INJ,SOLN IVP PRN 50 ML 12) OLOPATADINE HCL 0.2% SOLN,OPH OU QDAILY 1 DROP 13) INSULIN ASPART (NOVOLOG) INJ SQ TID AC SLIDING SCALE 14) INSULIN ASPART (NOVOLOG) INJ SQ QHS SLIDING SCALE 15) SODIUM BICARBONATE TAB PO TID 1300MG 16) PROPYLENE GLYCOL SOLN,OPH OU QID PRN For dry eyes 17) ACETAMINOPHEN TAB PO Q6H PRN 500MG 18) LIDOCAINE 5% OINT,TOP TOP QID PRN LIGHTLY Lab Data: CBC: WBC 9.2 10*3/uL 01/07/2024 17:30 RBC 3.81 L 10*6/uL 01/07/2024 17:30 HGB 11.5 L g/dL 01/07/2024 17:30 HCT 34.3 L % 01/07/2024 17:30 MCV 90.0 fL 01/07/2024 17:30 MCH 30.2 pg 01/07/2024 17:30 MCHC 33.5 g/dL 01/07/2024 17:30 RDW 13.8 % 01/07/2024 17:30 PLT 281 10*3/uL 01/07/2024 17:30 MPV 11.5 H fL 01/07/2024 17:30 NEUTROPHILS, AUTO % 73 % 01/07/2024 17:30 LYMPHOCYTES, AUTO % 15 % 01/07/2024 17:30 MONOCYTES, AUTO % 7 % 01/07/2024 17:30 EOSINOPHILS, AUTO % 4 % 01/07/2024 17:30 BASOPHILS, AUTO % 0 % 01/07/2024 17:30 IMMATURE GRANS, AUTO % 0.4 % 06/18/2022 12:10 NEUTROPHILS, ABSOLUTE 6.64 10*3/uL 01/07/2024 17:30 LYMPHOCYTES, ABSOLUTE 1.41 10*3/uL 01/07/2024 17:30 MONOCYTES, ABSOLUTE 0.67 10*3/uL 01/07/2024 17:30 EOSINOPHILS, ABSOLUTE 0.35 10*3/uL 01/07/2024 17:30 BASOPHILS, ABSOLUTE 0.03 10*3/uL 01/07/2024 17:30 IMMATURE GRANS, AUTO ABS 0.03 10*3/uL 06/18/2022 12:10 Renal Function Panel: SODIUM 139 mEq/L 01/08/2024 06:00 POTASSIUM 5.4 H mEq/L 01/08/2024 06:00 CHLORIDE 110 H mEq/L 01/08/2024 06:00 UREA NITROGEN 88.2 H mg/dL 01/08/2024 06:00 CREATININE 8.50 H mg/dL 01/08/2024 06:00 CALCIUM 9.4 mg/dL 01/08/2024 06:00 CARBON DIOXIDE 19 L mEq/L 01/08/2024 06:00 GLUCOSE 70 L mg/dL 01/08/2024 06:00 EGFR (CKD-EPI 2020) 6.3 L* 01/08/2024 06:00 ALBUMIN 3.8 g/dL 01/08/2024 06:00 PHOSPHOROUS 5.1 H mg/dL 01/08/2024 06:00 Impression/Recommendations: Mr. Cali is a 68M with a PMH of CKD now with symptoms suggestive of uremia, nephrology consulted, patient now initiated on iHD. CKD Stage V with progression Hypomagnesemia - Etiology: DM, HTN, vascular disease, proteinuria - Volume Status: Euvolemic - No new labs - UA unremarkable other than proteinuria - 11/2022 AVF placed, cleared for use on 09/17/2023, has never been accessed - Concerning pain with accessing his fistula, we have informed him that we plan on local therapy. He can get tylenol but it is uncommon for patients to get anymore than this in the outpatient side. Recommendations - Dialysis today 2.5h, 0UF, 2K, BFR 250, DFR 400 - Next iHD 01/11/24, florina dialyze similar (2.5h, 0UF, BFR 250, DFR 400) - Continue oral bicarb 1300 mg TID and discontinue post iHD - EMLA cream for pain. - Smaller needles per protocol and lower flows since new dialysis access use - We will communicate with or dialysis coordinators about an outpatient iHD unit, although patient expressed wanting to come to [facility], his said the distance is far - Continue oral magnesium replacement Anemia - HGB 11.5 - at goal - transfuse is HGB <7 #HTN - 155/90 - Continue nifedipine 90 mg daily - Continue and carvedilol 25mg bid CK-MBD - Last Ca, Phos, Alb reviewed and adequate - iPTH 527 - Continue calcitriol 1 mcg daily (recently increased) Patient seen and discussed with Dr. Newby, see attestation for changes. /edwar/ Jon Taylor MD Nephrology Fellow Signed: 01/09/2024 11:44 /edwar/ CHERRI NEWBY COMPUTER NUMERICAL CONTROL OPERATOR Cosigned: 01/11/2024 09:58 01/11/2024 ADDENDUM STATUS: COMPLETED Patient was seen and examined with the housestaff above. I reviewed the laboratory, radiologic findings and clinical documentation. Agree in general with the data, synthesis, and plan as outlined in his note and discussed on rounds. Patient seen and examined while on hemodialysis for indicaiton of ESRD. /edwar/ CHERRI NEWBY COMPUTER NUMERICAL CONTROL OPERATOR Signed: 01/11/2024 09:59 JON [facility] Jan 09, 2024 04:50 AM CARDIOLOGY NOTE: LOCAL TITLE: CARDIOLOGY TELEMETRY STL STANDARD TITLE: CARDIOLOGY NOTE DATE OF NOTE: JAN 09, 2024@04:50 ENTRY DATE: JAN 09, 2024@04:50:15 AUTHOR: BROOKLYN GAYLE EXP COSIGNER: URGENCY: STATUS: COMPLETED Telemetry reviewed: Normal Sinus Rhythm w\ 1 AVB INDIGO VAT TENDER CLOTH #: 93 RATE: 60s SHIFT: 11-7 Shift COMMENT: /patrice GAYLE AUTOMOTIVE TIRE TECHNICIAN Signed: 01/09/2024 04:50 BROOKLYN GAYLE [facility] Jan 09, 2024 01:44 AM NURSING INPATIENT NOTE: LOCAL TITLE: TXAES NURSING FREQUENT DOCUMENTATION STANDARD TITLE: NURSING INPATIENT NOTE DATE OF NOTE: JAN 09, 2024@01:44 ENTRY DATE: JAN 09, 2024@01:44:19 AUTHOR: AGUSTIN VINSON EXP COSIGNER: URGENCY: STATUS: COMPLETED Version 2.4 Charting in accordance with [place] APPROVED [place] STANDARD (VAAES) ACUTE INPATIENT/REHABILITATION NURSING ADMISSION SCREENING, ASSESSMENT, AND STANDARDS OF CARE NATIONAL EARLY WARNING SCORE (NEWS) The following vital measurements were used to complete the NEWS. Measurement DT TEMP PULSE RESP BP POx F(C) (L/MIN)(%) 01/09/2024 01:29 98.9(37.2) 78 20 157/80 96 The NEWS total is 0. 1. Temperature (C/F): Score = 0 36.1 - 38.0 C (96.9 - 100.4 F) 2. Pulse: Score = 0 51-90 3. Respirations: Score = 0 12-20 4. Blood Pressure (Only Systolic BP, mmHg): Score = 0 111-219 5. Pulse Oximetry: Score = 0 96% or greater 6. Supplemental oxygen in use: Score = 0 No 7. AVPU: Score = 0 Alert ENVIRONMENTAL SAFETY MANAGEMENT Implemented safety standards of care: -[place] to unit & environment -Adequate room lighting -Bed in low and locked position -Call light within reach -Personal items within reach -Traffic path in room free of clutter -Non-slip footwear -Upper/half length side rails up for bed mobility -Sensory aids within reach -Encourage patient to utilize sensory support /es/ AGUSTIN VINSON REGISTERED NURSE Signed: 01/09/2024 01:45 AGUSTIN VINSON [facility] Jan 09, 2024 01:43 AM NURSING NOTE: LOCAL TITLE: [facility] SKIN INSPECTION/ASSESSMENT STANDARD TITLE: NURSING NOTE DATE OF NOTE: JAN 09, 2024@01:43 ENTRY DATE: JAN 09, 2024@01:43:18 AUTHOR: AGUSTIN VINSON EXP COSIGNER: URGENCY: STATUS: COMPLETED SKIN REINSPECTION/REASSESSMENT SKIN INSPECTION: Skin Color: Usual for ethnicity Skin Temperature: Warm Skin Moisture: Normal Skin Turgor: Elastic (normal/immediate) Akiko Skin Assessment: The patient's Akiko Scale Score is 21. The patient is considered not at risk for development of pressure ulcers/injuries. Sensory perception -- ability to respond meaningfully to pressure-related discomfort No impairment. Moisture -- degree to which skin is exposed to moisture Rarely moist. Activity -- ability to change and control body position Walks occasionally. Mobility -- ability to change and control body position Slightly limited. Nutrition -- usual food intake patterns Excellent. Friction and shear No apparent problem. INTERVENTIONS: No change in previous interventions as listed below [facility] Pressure Injury Interventions 01/08/2024 [facility] Pressure Injury Int Not Needed RISK FACTORS THAT INCREASE RISK FOR DEVELOPING PRESSURE INJURIES The patient/resident does not have any additional risk factors. SKIN INTEGRITY: Intact /edwar/ AGUSTIN VINSON REGISTERED NURSE Signed: 01/09/2024 01:44 AGUSTIN VINSON [facility] Jan 09, 2024 01:35 AM NURSING INPATIENT NOTE: LOCAL TITLE: [facility] ACUTE INPATIENT NSG SHIFT ASSESSMENT STANDARD TITLE: NURSING INPATIENT NOTE DATE OF NOTE: JAN 09, 2024@01:35 ENTRY DATE: JAN 09, 2024@01:35:18 AUTHOR: AGUSTIN VINSON EXP COSIGNER: URGENCY: STATUS: COMPLETED [facility] ACUTE INPATIENT NSG SHIFT ASSESSMENT Has ADDENDA Version 2.2 Charting in accordance with [place]PR[place] STANDARD (TXAES) ACUTE INPATIENT/REHABILITATION NURSING ADMISSION SCREENING, ASSESSMENT, AND STANDARDS OF CARE ASSESSMENT HANDOFF Bedside report and handoff completed Safety check completed PAIN ASSESSMENT Patient's acceptable pain goal: 0 No pain Are you currently experiencing pain? No: Pain Score: 0 VARGAS FALL SCALE & TIPS PROGRAM Vargas Fall Scale: The Vargas Fall scale was performed and score was 45. This is indicative of high risk for falls. History of falling: immediate or within 3 months? No Secondary diagnosis: Yes Ambulatory aid: None/bedrest/nurse assist Intravenous therapy/Heparin lock: Yes Gait/Transferring: Weakness Mental Status: Oriented to own ability/knows own limitations Fall Tailoring Interventions for Patient Safety (TIPS) Fall TIPS initiated with patient: No Comment: REVIEWED Fall TIPS reviewed with patient: Yes Interventions: Communicate recent fall or risk of harm ENVIRONMENTAL SAFETY MANAGEMENT Implemented safety standards of care: -[place] to unit & environment -Adequate room lighting -Bed in low and locked position -Call light within reach -Personal items within reach -Traffic path in room free of clutter -Non-slip footwear -Upper/half length side rails up for bed mobility -Sensory aids within reach -Encourage patient to utilize sensory support NEUROLOGICAL Neurological Orientation: Oriented x4 Level of Consciousness (AVPU): Alert = Appears aware of and responsive to the environment on their own. Follows commands, opens eyes spontaneously, and tracks objects. Affect/behavior: Cooperative Calm NEUROMUSCULAR/NEUROVASCULAR EXTREMITIES ASSESSMENT Strength: Edge Burnisher Bilateral: Moderate Upper Extremity Bilateral: Full strength Lower Extremity Bilateral: Full strength Sensation: Upper Extremity Sensation Bilateral: Intact Lower Extremity Sensation Bilateral: Intact Temperature: Upper Extremity Temperature Bilateral: Warm Lower Extremity Temperature Bilateral: Warm CARDIOVASCULAR Heart Sounds: Normal (S1S2) Cardiac Rhythm Analysis: Normal Sinus Rhythm Telemetry Transmitter Pack #: 93 Capillary Refill: R Hand: Less than or equal to 3 seconds L Hand: Less than or equal to 3 seconds R Foot: Greater than 3 seconds L Foot: Greater than 3 seconds Peripheral Pulses: R Radial: 3+ Normal L Radial: 3+ Normal R Dorsalis Pedis: 2+ Weak L Dorsalis Pedis: 2+ Weak R Posterior Tibial: L Posterior Tibial: R Popliteal: L Popliteal: Edema: Present Dependent Location: BILAT LE RESPIRATORY Respirations: Unlabored Pattern: Regular Breath Sounds Auscultated: Anterior only Right Upper Lobe: Clear Left Upper Lobe: Clear Right Middle Lobe: Clear Right Lower Lobe: Diminished Left Lower Lobe: Diminished GASTROINTESTINAL Last bowel movement: 3//24 Elimination: Continent Abdominal Description: Rounded Palpation: Soft, Non-tender Bowel Sounds: RUQ: Active LUQ: Active RLQ: Active LLQ: Active GENITOURINARY Elimination: Continent INTEGUMENTARY/SKIN/WOUND - (INCLUDING AKIKO) SEE NOTE: VAAES SKIN INPECTION/ASSESSMENT IV LINES Peripheral IV: Line #1: Assessment: Location: Right, Forearm Gauge: 20 Dressing Condition: Clean, dry, intact Site Condition: No redness, swelling, pain Line Status: Flushed PSYCHOSOCIAL Type of Emotional Support Provided: Disease process discussion /edwar/ AGUSTIN VINSON REGISTERED NURSE Signed: 01/09/2024 01:42 01/10/2024 ADDENDUM STATUS: COMPLETED LATE ENTRY: AV FISTULA TO LEFT ARM POSITIVE FOR BRUIT AND THRILL /es/ AGUSTIN VINSON REGISTERED NURSE Signed: 01/10/2024 05:16 AGUSTIN VINSON Manjinder [facility] Jan 08, 2024 09:31 PM CARDIOLOGY NOTE: LOCAL TITLE: CARDIOLOGY TELEMETRY ST STANDARD TITLE: CARDIOLOGY NOTE DATE OF NOTE: JAN 08, 2024@21:31 ENTRY DATE: JAN 08, 2024@21:31:19 AUTHOR: JHONNY BROTHERS COSIGNER: URGENCY: STATUS: COMPLETED Telemetry reviewed: Normal Sinus Rhythm, Other 1 AVB INDIGO VAT TENDER CLOTH #: 93 RATE: 60's-70's SHIFT: 3-11 Shift COMMENT: /edwar/ JHONNY BROTHERS Turning Machine Operator EKG Signed: 01/08/2024 21:34 JHONNY BROTHERS [facility] Jan 08, 2024 07:10 PM RESPIRATORY THERAPY NOTE: LOCAL TITLE: RESPIRATORY THERAPY STL STANDARD TITLE: RESPIRATORY THERAPY NOTE DATE OF NOTE: JAN 08, 2024@19:10 ENTRY DATE: JAN 08, 2024@19:10:50 AUTHOR: NEERU ENGLE EXP COSIGNER: URGENCY: STATUS: COMPLETED Time of Procedure: Dec@18:50 Function: Life Sustaining Treatment Orders Device Parameters: IPAP:............ EPEP:............8 O2 Bleed In:.....21 Patient Parameters: Respiratory Rate:. Tidal Volume:..... O2 Saturation:.... Skin barrier was placed on patient: No Recommendations/Plan: CPAP on SB at pt bedside /patrice ENGLE Registered Respiratory Therapist Signed: 01/08/2024 19:11 NEERU ENGLE [facility] Jan 08, 2024 07:08 PM RESPIRATORY THERAPY CONSULT: LOCAL TITLE: RESPIRATORY THERAPY CONSULT ST STANDARD TITLE: RESPIRATORY THERAPY CONSULT DATE OF NOTE: JAN 08, 2024@19:08 ENTRY DATE: JAN 08, 2024@19:08:32 AUTHOR: NEERU ENGLE COSIGNER: URGENCY: STATUS: COMPLETED Consult complete. V60 CPAP +8 wtih meduim full face mask placed on standby at patient bedside. /patrice ENGLE Registered Respiratory Therapist Signed: 01/08/2024 19:10 NEERU ENGLE [facility] Jan 08, 2024 06:44 PM NURSING INPATIENT NOTE: LOCAL TITLE: [facility] ACUTE INPATIENT NSG SHIFT ASSESSMENT STANDARD TITLE: NURSING INPATIENT NOTE DATE OF NOTE: JAN 08, 2024@18:44 ENTRY DATE: JAN 08, 2024@18:45:01 AUTHOR: ANNAMARIA ACOSTA EXP COSIGNER: URGENCY: STATUS: COMPLETED Version 2.2 Charting in accordance with [place] APPROVED [place] STANDARD (TXAES) ACUTE INPATIENT/REHABILITATION NURSING ADMISSION SCREENING, ASSESSMENT, AND STANDARDS OF CARE REASSESSMENT INTEGUMENTARY/SKIN/WOUND - (INCLUDING AKIKO) SEE NOTE: VAAES SKIN INPECTION/ASSESSMENT PAIN ASSESSMENT Patient's acceptable pain goal: 3 Sometimes distracts me Are you currently experiencing pain? Yes - DVPRS scale used to assess Location: BL toes and right hand Defense and Veterans Pain Rating Scale (DVPRS): 6 Hard to ignore, avoid usual activities Pain Score: 6 VARGAS FALL SCALE & TIPS PROGRAM Vargas Fall Scale: The Vargas Fall scale was performed and score was 35. This is indicative of moderate risk for falls. History of falling: immediate or within 3 months? No Secondary diagnosis: Yes Ambulatory aid: None/bedrest/nurse assist Intravenous therapy/Heparin lock: Yes Gait/Transferring: Normal/bed rest/immobile Mental Status: Oriented to own ability/knows own limitations Fall Tailoring Interventions for Patient Safety (TIPS) Fall TIPS initiated with patient: Yes Interventions: Communicate recent fall or risk of harm Fall TIPS reviewed with patient: Yes Interventions: Communicate recent fall or risk of harm ENVIRONMENTAL SAFETY MANAGEMENT Implemented safety standards of care: -[place] to unit & environment -Adequate room lighting -Bed in low and locked position -Call light within reach -Personal items within reach -Traffic path in room free of clutter -Non-slip footwear -Upper/half length side rails up for bed mobility -Sensory aids within reach -Encourage patient to utilize sensory support NEUROLOGICAL Neurological Orientation: Oriented x4 Level of Consciousness (AVPU): Alert = Appears aware of and responsive to the environment on their own. Follows commands, opens eyes spontaneously, and tracks objects. Affect/behavior: Cooperative Calm NEUROMUSCULAR/NEUROVASCULAR EXTREMITIES ASSESSMENT Strength: Edge Burnisher Bilateral: Strong Upper Extremity Bilateral: Full strength Lower Extremity Bilateral: Full strength Sensation: Upper Extremity Sensation Bilateral: Intact Lower Extremity Sensation Bilateral: Intact Temperature: Upper Extremity Temperature Bilateral: Warm Lower Extremity Temperature Bilateral: Warm CARDIOVASCULAR Heart Sounds: Normal (S1S2) Heart Rate/Rhythm (without personnel monitor): Regular Cardiac Rhythm Analysis: Normal Sinus Rhythm Telemetry Transmitter Pack #: 93 Capillary Refill: All 4 extremities, less than or equal to 3 seconds. Peripheral Pulses: All 4 extremities, 3+ normal. Edema: None RESPIRATORY Respirations: Unlabored Pattern: Regular Breath Sounds Auscultated: Anterior only Left Upper Lobe: Clear Right Upper Lobe: Clear Right Middle Lobe: Clear Left Lower Lobe: Clear Right Lower Lobe: Clear GASTROINTESTINAL Bowel movement reported by patient-unwitnessed Abdominal Description: Rounded Palpation: Soft, Non-tender Bowel Sounds: RUQ: Active LUQ: Active RLQ: Active LLQ: Active GENITOURINARY Elimination: Continent Color/Characteristic: Clear Yellow INTEGUMENTARY/SKIN/WOUND - (INCLUDING AKIKO) SEE NOTE: VAAES SKIN INPECTION/ASSESSMENT ACTIVITIES OF DAILY LIVING Hygiene ADLs: Oral Care: Non-ventilator patient: Patient teeth brushed: Independently /es/ ANNAMARIA ACOSTA RN Signed: 01/08/2024 18:46 ANNAMARIA ACOSTA [facility] Jan 08, 2024 02:24 PM SOCIAL WORK NOTE: LOCAL TITLE: SW ONGOING PROGRESS STL STANDARD TITLE: SOCIAL WORK NOTE DATE OF NOTE: JAN 08, 2024@14:24 ENTRY DATE: JAN 08, 2024@14:24:24 AUTHOR: MELY LUCIANO EXP COSIGNER: URGENCY: STATUS: COMPLETED Per IDT mtg. Dispo pending HD set up; ~DC Home Thursday 01/11. reported Spouse will transport him home. /edwar/ FLORIN MCGOVERN, FERRY OPERATOR LICENSED CLINICAL FOOT DRILL OPERATOR Signed: 01/08/2024 14:25 MELY LUCIANO [facility] Jan 08, 2024 01:28 PM CONSENT: LOCAL TITLE: CONSENT CLINICAL IMED STANDARD TITLE: CONSENT DATE OF NOTE: JAN 08, 2024@13:28:59 ENTRY DATE: JAN 08, 2024@13:29:03 AUTHOR: STEPHANIE BAER EXP COSIGNER: URGENCY: STATUS: COMPLETED [facility] - Scanned Document Signature Informed Consent for Chronic Dialysis (Hemodialysis, Home Hemodialysis and Peritoneal Dialysis) for End Stage Kidney Disease 1. Anatomical Location: Left upper arm arteriovenous fistula 2. Informed consent was obtained at 1:19 PM on 01/08/24. The full consent document can be accessed through [facility]. 3. Patient name: NAGI CALI 4. The patient HAS decision-making capacity. 5. Surrogate (if applicable): 6. Reason for the treatment (diagnosis, condition, or indication): You have developed kidney failure that is not expected to get better (End Stage Kidney Disease, ESKD). As a result, your kidneys are not able to do their usual functions of removing waste products, salt, and fluid from your blood. The treatment for ESKD is kidney replacement therapy which can be given as dialysis or kidney transplantation. Dialysis is done to remove the waste products, salt and fluid that build up in your blood when your kidneys cannot work to limit the symptoms of kidney failure. Dialysis is given on an ongoing basis, or until you receive a kidney transplant. You can also choose to end dialysis as any time, but, since dialysis is a life sustaining treatment, if you do stop dialysis, you will develop symptoms of kidney failure and from complications. 7. Treatment/procedure: Dialysis involves cleaning your blood of toxins and removing extra fluid from your body that build up when the kidneys are damaged. Dialysis is performed in many ways for the treatment of end stage kidney disease. Hemodialysis: The most used form of chronic dialysis is hemodialysis. In these treatments, blood is drawn out of your body with care at a controlled speed from a special surgically crafted blood vessel in your arm or leg (fistula or graft) or through a catheter (small tube) placed into a large vein in your neck or leg. The blood is passes through a dialysis machine and then returned to your body. Waste products that have built up in your blood are removed. Extra fluid that you have collected may also be removed. The blood sometimes is kept from clotting as it passes through the dialysis machine using blood thinners. In-Center Hemodialysis: Hemodialysis is often done in a dialysis clinic (in-center hemodialysis) that you would need to go to many times per week. The plan for dialysis would be decided by your kidney doctor ([facility] employee health). Treatments are usually given three times per week (Zghami-Ynqywjyul-Lodapl or Cabzlno-Eelhkjuj-Vpkplayi). These treatments last from 3 to 5 hours each time. Home (Self-Care) Hemodialysis: Hemodialysis can also be given at home. You will be trained to carry out the treatment for yourself. All the equipment and supplies will be given to you. Many schedules are used for home hemodialysis treatments. These range from 2 hours to 8 hours per treatment performed 3 to 7 days per week. You and your kidney doctor will decide the best plan for you together. After completing training, you would perform your hemodialysis treatment and would only need to be seen in clinic monthly. If problems come up that change your ability to do your hemodialysis at home, you might need to switch to in-center hemodialysis on a temporary or permanent basis. Home (Self-Care) Peritoneal Dialysis: Dialysis is also offered by placing a catheter into your abdomen (belly) to allow sterile fluid (peritoneal dialysate) to flow into and out of the space around your bowels. This fluid has salts, sugar, and other additives. This is called peritoneal dialysis (PD). The toxins that collect in your blood, extra salt and water are drawn into the clean peritoneal dialysate (sterile fluid) and drained out of the catheter. It is then replaced with clean dialysate. This procedure is done many times over the course of the day, either by hand or by using a machine. The details of treatment may change management expert time, based on your condition and how well you respond to treatment. If you choose peritoneal dialysis, you will be taught how to give the treatment to yourself. All the equipment and supplies will be given to you. After you have completed training you would carry out your peritoneal dialysis treatments at home and would only need to be seen in clinic monthly. If problems come up that change your ability to do the treatment, you might need to switch to in-center hemodialysis on a temporary or permanent basis. Inpatient Dialysis: If you are hospitalized, your dialysis will be provided during your hospital stay. Medical Management without Dialysis: You may choose to not start on dialysis. Understand that without dialysis, you may feel much worse with symptoms over time and of kidney failure. If you do not choose to start dialysis, you will be offered medical management to help lessen your symptoms and keep your quality of life as long as possible. Selection of Type of Dialysis: The type and details of your dialysis treatment will be decided by your kidney doctor after talking with you. Your treatment may change as your condition changes. This includes problems of treatment, or if your choices about your treatment changes. This may mean switching between home (self-care) and in-center (staff-assisted) dialysis, switching between peritoneal dialysis and hemodialysis. It may also involve the use of prolonged or continuous kidney replacement therapy if you are hospitalized. You can choose to end dialysis at any time if you feel that it is not giving you adequate quality of life and no longer agrees with your wishes for your medical care. The first type of dialysis that will be used will be [select one]: * In-center hemodialysis * Home hemodialysis (with in-center hemodialysis as back-up) * Peritoneal dialysis (with in-center hemodialysis as back-up) Decisions to change the form of dialysis will be made between yourself, your kidney doctor, and your dialysis treatment team. These decisions will be documented in your dialysis long-term care plan or some other part of your medical record. Completing another informed consent form will not be needed for each change in your treatment. We will ask you to complete a separate consent form for placement of the vascular access (fistula, graft, or catheter) for hemodialysis, or for placement of the catheter in your abdomen for peritoneal dialysis. This consent is for the start of chronic dialysis. Your dialysis treatment is expected to carry on indefinitely. This consent is valid until there is a major change from the first treatment plan, or if there is a change in your health or diagnosis that would be expected to alter this consent form. 8. No, neither anesthesia nor moderate sedation will be used in this treatment/procedure. 9. Consent to Blood Products (if applicable): It is not expected that blood products will be used in this treatment/procedure. 10. Practitioner obtaining consent: Jon Taylor 11. Supervising practitioner: Cherri Newby MD 12. Practitioner(s) performing or supervising treatment/procedure (if not listed above): 13. Witness Name(s): 14. Comments: SCANNED DOCUMENT SIGNATURE NOT REQUIRED Electronically Filed: 01/08/2024 by: STEPHANIE LEON [facility] Jan 08, 2024 10:25 AM CARDIOLOGY NOTE: LOCAL TITLE: CARDIOLOGY TELEMETRY STL STANDARD TITLE: CARDIOLOGY NOTE DATE OF NOTE: JAN 08, 2024@10:25 ENTRY DATE: JAN 08, 2024@10:25:54 AUTHOR: KELSEA GOULD EXP COSIGNER: URGENCY: STATUS: COMPLETED Telemetry reviewed: Normal Sinus Rhythm, Other 1 INDIGO VAT TENDER CLOTH #: 93 RATE: 64 SHIFT: 7-3 Shift COMMENT: /edwar/ KELSEA GOULD JR. MEDICAL ENGINEERING OPERATOR Signed: 01/08/2024 10:26 KELSEA GOULD [facility] Jan 08, 2024 10:18 AM INTERNAL MEDICINE INPATIENT NOTE: LOCAL TITLE: MEDICINE GENERAL INPATIENT NOTE STANDARD TITLE: INTERNAL MEDICINE INPATIENT NOTE DATE OF NOTE: JAN 08, 2024@10:18 ENTRY DATE: JAN 08, 2024@10:18:51 AUTHOR: LEVI GARZA EXP COSIGNER: MARLEEN LOMAX URGENCY: STATUS: COMPLETED PLAN OF CARE NOTE: #Progression of CKD #Concern for ESRD #Hyperkalemia -K increased to 5.4 from 5 -Phos 5.1 -will give additional dose of lokelma 10mg today -Plan for HD later this afternoon -Will give renal diet, has LUE fistula with good thrill -Cont tele /edwar/ LEVI GARZA RESIDENT PHYSICIAN Signed: 01/08/2024 10:22 /edwar/ MARLEEN LOMAX MD// INTERNAL MEDICINE ATTENDING Cosigned: 01/08/2024 11:05 LEVI GARZA [facility] Jan 08, 2024 09:13 AM NURSING INPATIENT NOTE: LOCAL TITLE: TXAES ACUTE INPATIENT NSG SHIFT ASSESSMENT STANDARD TITLE: NURSING INPATIENT NOTE DATE OF NOTE: JAN 08, 2024@09:13 ENTRY DATE: JAN 08, 2024@09:13:34 AUTHOR: ANNAMARIA ACOSTA EXP COSIGNER: URGENCY: STATUS: COMPLETED Version 2.2 Charting in accordance with [place] APPR[place] STANDARD (TXAES) ACUTE INPATIENT/REHABILITATION NURSING ADMISSION SCREENING, ASSESSMENT, AND STANDARDS OF CARE ASSESSMENT HANDOFF Bedside report and handoff completed Safety check completed PAIN ASSESSMENT Patient's acceptable pain goal: 3 Sometimes distracts me Are you currently experiencing pain? Yes - DVPRS scale used to assess Location: BL toes and right hand Defense and Veterans Pain Rating Scale (DVPRS): 6 Hard to ignore, avoid usual activities Pain Score: 6 VARGAS FALL SCALE & TIPS PROGRAM Vargas Fall Scale: The Vargas Fall scale was performed and score was 35. This is indicative of moderate risk for falls. History of falling: immediate or within 3 months? No Secondary diagnosis: Yes Ambulatory aid: None/bedrest/nurse assist Intravenous therapy/Heparin lock: Yes Gait/Transferring: Normal/bed rest/immobile Mental Status: Oriented to own ability/knows own limitations Fall Tailoring Interventions for Patient Safety (TIPS) Fall TIPS initiated with patient: Yes Interventions: Communicate recent fall or risk of harm Fall TIPS reviewed with patient: Yes Interventions: Communicate recent fall or risk of harm ENVIRONMENTAL SAFETY MANAGEMENT Implemented safety standards of care: -[place] to unit & environment -Adequate room lighting -Bed in low and locked position -Call light within reach -Personal items within reach -Traffic path in room free of clutter -Non-slip footwear -Upper/half length side rails up for bed mobility -Sensory aids within reach -Encourage patient to utilize sensory support NEUROLOGICAL Neurological Orientation: Oriented x4 Level of Consciousness (AVPU): Alert = Appears aware of and responsive to the environment on their own. Follows commands, opens eyes spontaneously, and tracks objects. Affect/behavior: Cooperative Calm NEUROMUSCULAR/NEUROVASCULAR EXTREMITIES ASSESSMENT Strength: Edge Burnisher Bilateral: Strong Upper Extremity Bilateral: Full strength Lower Extremity Bilateral: Full strength Sensation: Upper Extremity Sensation Bilateral: Intact Lower Extremity Sensation Bilateral: Intact Temperature: Upper Extremity Temperature Bilateral: Warm Lower Extremity Temperature Bilateral: Warm CARDIOVASCULAR Heart Sounds: Normal (S1S2) Heart Rate/Rhythm (without personnel monitor): Regular Cardiac Rhythm Analysis: Normal Sinus Rhythm Telemetry Transmitter Pack #: 93 Capillary Refill: All 4 extremities, less than or equal to 3 seconds. Peripheral Pulses: All 4 extremities, 3+ normal. Edema: None RESPIRATORY Respirations: Unlabored Pattern: Regular Breath Sounds Auscultated: Anterior only Left Upper Lobe: Clear Right Upper Lobe: Clear Right Middle Lobe: Clear Left Lower Lobe: Clear Right Lower Lobe: Clear GASTROINTESTINAL Bowel movement reported by patient-unwitnessed Abdominal Description: Rounded Palpation: Soft, Non-tender Bowel Sounds: RUQ: Active LUQ: Active RLQ: Active LLQ: Active GENITOURINARY Elimination: Continent Color/Characteristic: Clear Yellow INTEGUMENTARY/SKIN/WOUND - (INCLUDING AKIKO) SEE NOTE: VAAES SKIN INPECTION/ASSESSMENT ACTIVITIES OF DAILY LIVING Hygiene ADLs: Oral Care: Non-ventilator patient: Patient teeth brushed: Independently MOBILITY Mobility Status: Independent: Able to stand and step without staff assistance Gait: Steady IV LINES Peripheral IV: Line #1: Assessment: Location: Right, Forearm Gauge: 20 Dressing Condition: Clean, dry, intact Site Condition: No redness, swelling, pain Line Status: Flushed PSYCHOSOCIAL Type of Emotional Support Provided: 1:1 discussion /edwar/ ANNAMARIA ACOSTA RN Signed: 01/08/2024 09:17 ANNAMARIA ACOSTA [facility] Jan 08, 2024 09:10 AM NURSING NOTE: LOCAL TITLE: [facility] SKIN INSPECTION/ASSESSMENT STANDARD TITLE: NURSING NOTE DATE OF NOTE: JAN 08, 2024@09:10 ENTRY DATE: JAN 08, 2024@09:11:05 AUTHOR: ANNAMARIA ACOSTA EXP COSIGNER: URGENCY: STATUS: COMPLETED INITIAL SKIN INSPECTION/ASSESSMENT SKIN INSPECTION: Skin Color: Usual for ethnicity Skin Temperature: Warm Skin Moisture: Normal Skin Turgor: Elastic (normal/immediate) Akiko Skin Assessment: The patient's Akiko Scale Score is 20. The patient is considered not at risk for development of pressure ulcers/injuries. Sensory perception -- ability to respond meaningfully to pressure-related discomfort No impairment. Moisture -- degree to which skin is exposed to moisture Rarely moist. Activity -- ability to change and control body position Walks occasionally. Mobility -- ability to change and control body position Slightly limited. Nutrition -- usual food intake patterns Adequate. Friction and shear No apparent problem. INTERVENTIONS: The pressure injury interventions were not needed - patient/resident is not at risk. SKIN INTEGRITY: Intact /ewdar/ ANNAMARIA ACOSTA RN Signed: 01/08/2024 09:12 ANNAMARIA ACOSTA [facility] Jan 08, 2024 09:07 AM NURSING NOTE: LOCAL TITLE: AZ[facility]A PROGRESS NOTE STL STANDARD TITLE: NURSING NOTE DATE OF NOTE: JAN 08, 2024@09:07 ENTRY DATE: JAN 08, 2024@09:07:57 AUTHOR: ANNAMARIA ACOSTA EXP COSIGNER: URGENCY: STATUS: COMPLETED AZALEA PROGRESS NOTE STL Has ADDENDA 0800 VSS; pt states pain of 6/10 to BL toes and right hand; called Dr, see new orders; plan is for pt to go to dialysis today; /es/ ANNAMARIA ACOSTA RN Signed: 01/08/2024 09:10 01/08/2024 ADDENDUM STATUS: COMPLETED 1830 pt went to dialysis today; no fluid removed, just cleaned; pt to go to dialysis again tomorrow; /edwar/ ANNAMARIA ACOSTA RN Signed: 01/08/2024 18:49 ANNAMARIA ACOSTA [facility] Jan 08, 2024 08:03 AM NEPHROLOGY CONSULT: LOCAL TITLE: RENAL INPATIENT CONSULT ST STANDARD TITLE: NEPHROLOGY CONSULT DATE OF NOTE: JAN 08, 2024@08:03 ENTRY DATE: JAN 08, 2024@08:03:27 AUTHOR: JON TAYLOR COSIGNER: CHERRI NEWYB URGENCY: STATUS: COMPLETED RENAL INPATIENT CONSULT ST Has ADDENDA NEPHROLOGY ESRD INITIAL CONSULT NOTE Primary Team: Reason for consult: Hyperkalemia HPI: Mr. Cali is a 68M with a PM HTN, DM, HLD, gout, JONAH, chronic AFib and CKD Stage (c/b hyperkalemia) who presented to the ED overnight with fatigue and lethargy. Associated symptoms include poor PO intake, low appetite, foggy thinking, short term memory difficulty, symptoms have been present for weeks. ED workup notable for CO2 13 and L 5.7. He received 2 amps of bicarb. He has a working fistula that has never been accessed for dialysis. He is agreeable to dialysis today. Verbal consent obtained, will file in chart. Instructed primary team to administer K binder until dailysis session. Patient denies fever, chills, CP, dyspnea, LE edema, decreased urinary output, and abdominal pain. Review of Systems General: See HPI HEENT: No vision changes, sore throat, epistaxis CVS: No CP, palpitations Pulmonary: No dyspnea, cough, orhtopnea GI: No abdominal pain, NVD Renal: See HPI Musculoskeletal: No LE edema Skin: No new skin lesions or rashes Neuro: No YADAV or new paresthesias PMHx/PSHx: 1) Type II diabetes mellitus uncontrolled 2) Chronic atrial fibrillation 3) Essential hypertension 4) Hyperlipidemia 5) Gout 6) Chronic kidney disease 7) Thyroiditis 8) Chronic kidney disease stage 4 9) Hyperparathyroidism due to renal insufficiency 10) Metabolic acidosis 11) History of adenomatous polyp of colon 12) Sleep apnea 13) Therapeutic drug effect 14) Anticoagulant effect 15) Supraventricular tachycardia 16) Acute intestinal ischaemia 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 REPORT ANY UNEXPLAINED MUSCLE PAIN/WEAKNESS TO PROVIDER. 3) CALCITRIOL 0.5MCG CAP TAKE ONE CAPSULE BY MOUTH ONCE ACTIVE A DAY 4) CARVEDILOL 25MG TAB TAKE ONE TABLET BY MOUTH TWICE A ACTIVE DAY FOR HIGH BLOOD PRESSURE TAKE WITH FOOD. 5) FEBUXOSTAT 80MG TAB TAKE ONE-HALF TABLET BY MOUTH ACTIVE ONCE A DAY FOR HYPERURICEMIA 6) GABAPENTIN 300MG CAP TAKE ONE CAPSULE BY MOUTH AT ACTIVE BEDTIME NEEDED FOR NERVE PAIN 7) INSULIN SYRINGE 0.5ML 30G 12MM USE 1 SYRINGE UNDER ACTIVE THE SKIN ONCE A DAY TO USE WITH INSULIN 8) INSULIN,ASPART(EQV-NOVLG)100UN/ ML FLXPEN INJECT 10 ACTIVE UNITS UNDER THE SKIN TWO TIMES A DAY BEFORE MEALS FOR BLOOD SUGAR CONTROL. ADMINISTER 10 MINUTES BEFORE FOOD DIRECTED. REFRIGERATE UN-OPENED PENS. DISCARD CARTRIDGE 28 DAYS AFTER OPENING. 9) INSULIN,GLARGINE-YFGN 100UNIT/ML INJ INJECT 16 UNITS ACTIVE UNDER THE SKIN ONCE A DAY TO CONTROL BLOOD SUGAR. ADMINISTER AT SAME TIME EACH DAY DIRECTED. DISCARD ANY VIAL 28 DAYS AFTER OPENING. 10) MAGNESIUM OXIDE 400MG TAB TAKE ONE TABLET BY MOUTH ACTIVE (S) ONCE A DAY 11) NIFEDIPINE (EQV-CC) 90MG SA TAB TAKE ONE TABLET BY ACTIVE MOUTH ONCE A DAY FOR HEART/BLOOD PRESSURE. PREFERABLE TO TAKE ON EMPTY STOMACH. SWALLOW WHOLE; DO NOT CRUSH OR CHEW. AVOID GRAPEFRUIT JUICE. 12) OLOPATADINE HCL 0.2% OPH SOLN INSTILL 1 DROP IN BOTH ACTIVE EYES ONCE A DAY FOR OCULAR ALLERGIES, ITCHING 13) OMEPRAZOLE 20MG EC CAP TAKE ONE CAPSULE BY MOUTH ACTIVE EVERY MORNING BEFORE A MEAL TO LOWER STOMACH ACID. TAKE 30 MINUTES PRIOR TO FOOD. 14) PEG 400 0.4%/PROP GLYCOL 0.3% OPH SOLN INSTILL 1 DROP ACTIVE IN BOTH EYES FOUR TIMES A DAY NEEDED FOR DRY EYE(S) 15) SEMAGLUTIDE 1MG/0.75ML INJ PEN 3ML INJECT 1MG UNDER ACTIVE THE SKIN EVERY WEEK FOR DIABETES 16) SODIUM BICARBONATE 650MG TAB TAKE TWO TABLETS BY ACTIVE MOUTH THREE TIMES A DAY FOR STOMACH ACID LOWERING 17) TAMSULOSIN HCL 0.4MG CAP TAKE ONE CAPSULE BY MOUTH ACTIVE TWICE A DAY FOR BENIGN PROSTATIC HYPERPLASIA APPROXIMATELY 30 MINUTES AFTER THE SAME MEAL EACH DAY Allergies: Morphine (Hallucinations) Family History: Social History: Physical exam: Temperature: 97.2 F [36.2 C] (01/08/2024 05:34) Blood Pressure: 155/74 (01/08/2024 05:34) Pulse: 58 (01/08/2024 05:34) Respirations: 20 (01/08/2024 05:34) O2 Saturation: 99% (01/08/2024 05:34) Weight: 227.5 lb [103.19 kg] (01/07/2024 23:27) Height: 69 in [175.3 cm] (11/16/2023 12:36) I/O: Physical Exam Gen: Fatigued, 68M, appears age, no acute distress HENT: NCAT, hearing intact, no nasal discharge, oral mucosa pink moist. Eyes: EOMI, PERRL CV: Normal rate, regular rhythm w/o murmurs, gallops, rubs. Pulm: CLTAB, unlabored breathing, w/o wheezes, rales, rhonchi Abdomen: Soft, non-tender, w/o rigidity or guarding Ext: No evidence of LE edema. Neuro: A&Ox3. No focal deficits. Skin: No lesions on visualized skin Access: LUE AVF, burit+/thrill+ Inpatient Medications: 1) APIXABAN (PA-F) TAB,ORAL PO BID 5MG 2) ATORVASTATIN TAB PO QPM 80MG 3) CALCITRIOL CAP,ORAL PO DAILY 0.5MCG 4) CARVEDILOL TAB PO CC BID 5) HEPARIN (PORK) INJ,SOLN SC Q8H 5000UNIT/1ML 6) MAGNESIUM OXIDE TAB PO DAILY 400MG 7) NIFEDIPINE (SUSTAINED RELEASE) TAB,SA PO QDAILY 90MG 8) OMEPRAZOLE CAP,EC PO QAMAC 20MG 9) TAMSULOSIN CAP,ORAL PO BID PC 10) GLUCAGON INJ IM PRN 1MG/1VIAL 11) GLUCOSE TAB,CHEWABLE PO PRN 16GM 12) DEXTROSE 50% INJ,SOLN IVP PRN 50 ML 13) OLOPATADINE HCL 0.2% SOLN,OPH OU QDAILY 1 DROP 14) INSULIN ASPART (NOVOLOG) INJ SQ TID AC SLIDING SCALE 15) INSULIN ASPART (NOVOLOG) INJ SQ QHS SLIDING SCALE 16) SODIUM BICARBONATE TAB PO TID 1300MG 17) PROPYLENE GLYCOL SOLN,OPH OU QID PRN For dry eyes 18) ACETAMINOPHEN TAB PO Q6H PRN 500MG Lab Data: CBC: WBC 9.2 10*3/uL 01/07/2024 17:30 RBC 3.81 L 10*6/uL 01/07/2024 17:30 HGB 11.5 L g/dL 01/07/2024 17:30 HCT 34.3 L % 01/07/2024 17:30 MCV 90.0 fL 01/07/2024 17:30 MCH 30.2 pg 01/07/2024 17:30 MCHC 33.5 g/dL 01/07/2024 17:30 RDW 13.8 % 01/07/2024 17:30 PLT 281 10*3/uL 01/07/2024 17:30 MPV 11.5 H fL 01/07/2024 17:30 NEUTROPHILS, AUTO % 73 % 01/07/2024 17:30 LYMPHOCYTES, AUTO % 15 % 01/07/2024 17:30 MONOCYTES, AUTO % 7 % 01/07/2024 17:30 EOSINOPHILS, AUTO % 4 % 01/07/2024 17:30 BASOPHILS, AUTO % 0 % 01/07/2024 17:30 IMMATURE GRANS, AUTO % 0.4 % 06/18/2022 12:10 NEUTROPHILS, ABSOLUTE 6.64 10*3/uL 01/07/2024 17:30 LYMPHOCYTES, ABSOLUTE 1.41 10*3/uL 01/07/2024 17:30 MONOCYTES, ABSOLUTE 0.67 10*3/uL 01/07/2024 17:30 EOSINOPHILS, ABSOLUTE 0.35 10*3/uL 01/07/2024 17:30 BASOPHILS, ABSOLUTE 0.03 10*3/uL 01/07/2024 17:30 IMMATURE GRANS, AUTO ABS 0.03 10*3/uL 06/18/2022 12:10 Renal Function Panel: SODIUM 139 mEq/L 01/08/2024 06:00 POTASSIUM 5.4 H mEq/L 01/08/2024 06:00 CHLORIDE 110 H mEq/L 01/08/2024 06:00 UREA NITROGEN 88.2 H mg/dL 01/08/2024 06:00 CREATININE 8.50 H mg/dL 01/08/2024 06:00 CALCIUM 9.4 mg/dL 01/08/2024 06:00 CARBON DIOXIDE 19 L mEq/L 01/08/2024 06:00 GLUCOSE 70 L mg/dL 01/08/2024 06:00 EGFR (CKD-EPI 2020) 6.3 L* 01/08/2024 06:00 ALBUMIN 3.8 g/dL 01/08/2024 06:00 PHOSPHOROUS 5.1 H mg/dL 01/08/2024 06:00 Liver Function Panel: No data available Coags: INR VALUE 1.4 INR 07/26/2023 18:50 PROTIME 15.7 H sec 07/26/2023 18:50 PTT-LA (PB) 36 sec 06/11/2023 10:58 APTT 34.3 sec 04/06/2023 06:00 Urine Studies: URINE COLOR Colorless 01/07/2024 19:30 APPEARANCE Clear 01/07/2024 19:30 U.PH 5.5 01/07/2024 19:30 U.BILIRUBIN Negative mg/dL 01/07/2024 19:30 U.NITRITE Negative mg/dL 01/07/2024 19:30 URINE RBC/HPF 1 /HPF 01/07/2024 19:30 URINE WBC/HPF 1 /HPF 01/07/2024 19:30 BACTERIA RARE /HPF 06/22/2023 09:46 SQUAMOUS EPITH. <1 /HPF 01/07/2024 19:30 MUCUS RARE /LPF 07/15/2022 12:23 Assessment and Plan: Mr. Cali is a 68M with a PMH of CKD now with symptoms suggestive of uremia, nephrology consulted for potential ASSEMBLER MOLDED FRAMES. CKD Stage V with progression Hypomagnesemia - Etiology: DM, HTN, vascular disease, proteinuria - Volume Status: Euvolemic - Notable Labs: K 5.4, BUN 88 - UA unremarkable other than proteinuria - 11/2022 AVF placed, cleared for use on 09/17/2023, has never been accessed Recommendations - Will order iHD today 2h, 0UF, BFR 200, DFR 400 - Continue oral bicarb 1300 mg TID and discontinue post iHD - Lokelma or veltassa until patient is initiated on iHD - Fistula has never been used will need to dialysis with smaller needles per protocol and lower flows - Will communicate with social workers about outpatient iHD unit, patient requesting JCVA - Continue oral magnesium replacement #HTN - 155/74 - Continue nifedipine 90 mg daily - Continue and carvedilol 25mg bid CK-MBD - Ca, Phos, Alb reviewed and adequate - iPTH 527 - Continue calcitriol 1 mcg daily (recently increased) Patient seen and examined at bedside, case discussed with the nephrology attending Dr. Newby and the primary team. /edwar/ Jon Taylor MD Nephrology Fellow Signed: 01/08/2024 12:40 /edwar/ CHERRI NEWBY COMPUTER NUMERICAL CONTROL OPERATOR Cosigned: 01/09/2024 10:50 01/09/2024 ADDENDUM STATUS: COMPLETED Patient was seen and examined with the housestaff above. I reviewed the laboratory, radiologic findings and clinical documentation. Agree in general with the data, synthesis, and plan as outlined in his note and discussed on rounds. New start ESRD. Hyperkalemia. /edwar/ CHERRI NEWBY COMPUTER NUMERICAL CONTROL OPERATOR Signed: 01/09/2024 10:54 JON TAYLOR [facility] Jan 08, 2024 07:06 AM CARDIOLOGY NOTE: LOCAL TITLE: CARDIOLOGY TELEMETRY [facility] STANDARD TITLE: CARDIOLOGY NOTE DATE OF NOTE: JAN 08, 2024@07:06 ENTRY DATE: JAN 08, 2024@07:06:10 AUTHOR: JOYCE MANN EXP COSIGNER: URGENCY: STATUS: COMPLETED Telemetry reviewed: Normal Sinus Rhythm INDIGO VAT TENDER CLOTH #: 93 RATE: 60s SHIFT: 11-7 Shift COMMENT: mariama/ JOYCE MANN Medical Forming And Assembling Supervisor ekg Signed: 01/08/2024 07:07 JOYCE MANN [facility] Jan 08, 2024 07:06 AM NURSING INPATIENT NOTE: LOCAL TITLE: TXAES ACUTE INPATIENT NSG SHIFT ASSESSMENT STANDARD TITLE: NURSING INPATIENT NOTE DATE OF NOTE: JAN 08, 2024@07:06 ENTRY DATE: JAN 08, 2024@07:06:38 AUTHOR: JUAN FRANCISCO RYAN EXP COSIGNER: URGENCY: STATUS: COMPLETED Version 2.2 Charting in accordance with [place] APPROV[place] STANDARD (TXAES) ACUTE INPATIENT/REHABILITATION NURSING ADMISSION SCREENING, ASSESSMENT, AND STANDARDS OF CARE REASSESSMENT PAIN ASSESSMENT Patient's acceptable pain goal: 0 No pain Are you currently experiencing pain? Yes - DVPRS scale used to assess Location: RIGHT HAND AND RIGHT FOOT Defense and Veterans Pain Rating Scale (DVPRS): 4 Distracts me, can do usual activities Pain Score: 4 Primary Pain Assessment: Pain Type: Chronic Describe Pain (Quality): Musculoskeletal: Aching Neurological: Prickling, Tingling Pain Alleviating Interventions: Medication, see MAR Positioning NEUROLOGICAL Neurological Orientation: Oriented x4 Level of Consciousness (AVPU): Alert = Appears aware of and responsive to the environment on their own. Follows commands, opens eyes spontaneously, and tracks objects. Affect/behavior: Cooperative Calm NEUROMUSCULAR/NEUROVASCULAR EXTREMITIES ASSESSMENT Strength: Edge Burnisher Bilateral: Strong Upper Extremity Bilateral: Full strength Lower Extremity Bilateral: Full strength Sensation: Upper Extremity Sensation Bilateral: Intact Lower Extremity Sensation Bilateral: Intact Temperature: Upper Extremity Temperature Bilateral: Warm Lower Extremity Temperature Bilateral: Warm CARDIOVASCULAR Heart Sounds: Normal (S1S2) Heart Rate/Rhythm (without personnel monitor): Regular Cardiac Rhythm Analysis: Normal Sinus Rhythm Telemetry Transmitter Pack #: 93 Capillary Refill: All 4 extremities, less than or equal to 3 seconds. Peripheral Pulses: All 4 extremities, 3+ normal. Edema: None Cardiovascular - Embolism Prevention: Comment: heparin therapy RESPIRATORY Respirations: Unlabored Pattern: Regular Breath Sounds Auscultated: Anterior and posterior Left Upper Lobe: Clear Right Upper Lobe: Clear Right Middle Lobe: Clear Left Lower Lobe: Clear Right Lower Lobe: Clear GASTROINTESTINAL Last bowel movement: 01/06/24 Elimination: Continent Abdominal Description: Protuberant (central obesity) Palpation: Soft, Non-tender Bowel Sounds: RUQ: Active LUQ: Active RLQ: Active LLQ: Active GENITOURINARY Elimination: Continent Color/Characteristic: Clear Yellow INTEGUMENTARY/SKIN/WOUND - (INCLUDING AKIKO) SEE NOTE: VAAES SKIN INPECTION/ASSESSMENT /es/ BUFFY ZHAO,RN REGISTERED NURSE Signed: 01/08/2024 07:12 Receipt Acknowledged By: 01/11/2024 19:55 /edwar/ BUFFY DANIEL RN REGISTERED NURSE JUAN FRANCISCO RYAN [facility] Jan 08, 2024 07:00 AM SUICIDE PREVENTION NOTE: LOCAL TITLE: ADMISSION SUICIDE SCREENING STANDARD TITLE: SUICIDE PREVENTION NOTE DATE OF NOTE: JAN 08, 2024@07:00 ENTRY DATE: JAN 08, 2024@07:47:10 AUTHOR: MELY LUCIANO EXP COSIGNER: URGENCY: STATUS: COMPLETED The C-SSRS has been completed within the past 24 hours C-SSRS screener results were NEGATIVE. Please refer to EMERGENCY DEPARTMENT TRIAGE NOTE /edwar/ FLORIN MCGOVERN, FERRY OPERATOR LICENSED CLINICAL FOOT DRILL OPERATOR Signed: 01/08/2024 07:47 MELY LUCIANO [facility] Jan 08, 2024 02:08 AM NURSING NOTE: LOCAL TITLE: [place]A PERSONAL EFFECTS STL STANDARD TITLE: NURSING NOTE DATE OF NOTE: JAN 08, 2024@02:08 ENTRY DATE: JAN 08, 2024@02:08:16 AUTHOR: DANNIE MARTINEZ EXP COSIGNER: URGENCY: STATUS: COMPLETED PERSONAL EFFECTS Contraband Check: Advised of prohibited contraband Medication Check: Denies medication on person Prosthetic Check: Glasses Patient Valuables Observed: cell phone, hat, glasses, clothes, shoes, wallet Personal Items: Patient/Family advised that [facility] not responsible for loss of any personal effects or valuables., Patient/Family advised of locker availability., Patient chooses to keep belongings at bedside. /edwar/ BUFFY DANIEL RN REGISTERED NURSE Signed: 01/08/2024 02:08 SARA MARTINEZ [facility] Jan 08, 2024 12:44 AM NURSING INPATIENT NOTE: LOCAL TITLE: [facility] NURSING FREQUENT DOCUMENTATION STANDARD TITLE: NURSING INPATIENT NOTE DATE OF NOTE: JAN 08, 2024@00:44 ENTRY DATE: JAN 08, 2024@00:46:16 AUTHOR: JUAN FRANCISCO RYAN EXP COSIGNER: URGENCY: STATUS: COMPLETED Version 2.4 Charting in accordance with [place] APPR[place] STANDARD (TXAES) ACUTE INPATIENT/REHABILITATION NURSING ADMISSION SCREENING, ASSESSMENT, AND STANDARDS OF CARE NATIONAL EARLY WARNING SCORE (NEWS) The following vital measurements were used to complete the NEWS. Measurement DT TEMP PULSE RESP BP POx F(C) (L/MIN)(%) 01/07/2024 23:27 97.6(36.4) 68 18 163/77 95 The NEWS total is 1. 1. Temperature (C/F): Score = 0 36.1 - 38.0 C (96.9 - 100.4 F) 2. Pulse: Score = 0 51-90 3. Respirations: Score = 0 12-20 4. Blood Pressure (Only Systolic BP, mmHg): Score = 0 111-219 5. Pulse Oximetry: Score = 1 94% - 95% 6. Supplemental oxygen in use: Score = 0 No 7. AVPU: Score = 0 Alert Patient Status: Remains on unit /edwar/ BUFFY ZHAO,RN REGISTERED NURSE Signed: 01/08/2024 00:47 Receipt Acknowledged By: 01/08/2024 00:50 /edwar/ BUFYF DANIEL RN REGISTERED NURSE JUAN FRANCISCO RYAN [facility] Jan 08, 2024 12:20 AM INTERNAL MEDICINE H & P NOTE: LOCAL TITLE: MEDICINE HISTORY AND PHYSICAL STL STANDARD TITLE: INTERNAL MEDICINE H & P NOTE DATE OF NOTE: JAN 08, 2024@00:20 ENTRY DATE: JAN 08, 2024@00:21:22 AUTHOR: IRAJ GRIFFIN COSIGNER: MARLEEN LOMAX URGENCY: STATUS: COMPLETED MEDICINE HISTORY AND PHYSICAL STL Has ADDENDA JAN 08, 2024 Medicine History and Physical CC: fatigue HPI: 68 yo M with a hx of HTN, DM, HLD, gout, jonah, chronic a fib and trigger finger and ckd 5 presented to the ED for progressive symptoms of fatigue, lethargy, poor appetite. He reports these symptoms started yesterday. He reports adherence to all his meds. Denied N/v, dysguesia. He appeared fatigued and had mild asterixis. On arrival to the ED, he was HD stable. Labs notable for BUN: 93, Cr: 8.88, CO2: 13, K : 5.7. EKG showed prolonged HI interval and hyperacute T waves in leads V1 and V2. He was given 2 amps of bicarb and admitted to the Medicine service for further evaluation. Nephrology was consulted and planned to initiate HD the following AM. Outpatient Medications: Active Outpatient Medications (including Supplies): Active Outpatient Medications Status 1) APIXABAN 5MG TAB TAKE ONE TABLET BY MOUTH TWICE A DAY ACTIVE FOR ANTICOAGULATION 2) ATORVASTATIN CALCIUM 80MG TAB TAKE ONE TABLET BY ACTIVE (S) MOUTH EVERY EVENING FOR CHOLESTEROL. REPORT ANY UNEXPLAINED MUSCLE PAIN/WEAKNESS TO PROVIDER. 3) CALCITRIOL 0.5MCG CAP TAKE ONE CAPSULE BY MOUTH ONCE ACTIVE A DAY 4) CARVEDILOL 25MG TAB TAKE ONE TABLET BY MOUTH TWICE A ACTIVE DAY FOR HIGH BLOOD PRESSURE TAKE WITH FOOD. 5) FEBUXOSTAT 80MG TAB TAKE ONE-HALF TABLET BY MOUTH ACTIVE ONCE A DAY FOR HYPERURICEMIA 6) GABAPENTIN 300MG CAP TAKE ONE CAPSULE BY MOUTH AT ACTIVE BEDTIME NEEDED FOR NERVE PAIN 7) INSULIN SYRINGE 0.5ML 30G 12MM USE 1 SYRINGE UNDER ACTIVE THE SKIN ONCE A DAY TO USE WITH INSULIN 8) INSULIN,ASPART(EQV-NOVLG)100UN/ ML FLXPEN INJECT 10 ACTIVE UNITS UNDER THE SKIN TWO TIMES A DAY BEFORE MEALS FOR BLOOD SUGAR CONTROL. ADMINISTER 10 MINUTES BEFORE FOOD DIRECTED. REFRIGERATE UN-OPENED PENS. DISCARD CARTRIDGE 28 DAYS AFTER OPENING. 9) INSULIN,GLARGINE-YFGN 100UNIT/ML INJ INJECT 16 UNITS ACTIVE UNDER THE SKIN ONCE A DAY TO CONTROL BLOOD SUGAR. ADMINISTER AT SAME TIME EACH DAY DIRECTED. DISCARD ANY VIAL 28 DAYS AFTER OPENING. 10) MAGNESIUM OXIDE 400MG TAB TAKE ONE TABLET BY MOUTH ACTIVE (S) ONCE A DAY 11) NIFEDIPINE (EQV-CC) 90MG SA TAB TAKE ONE TABLET BY ACTIVE MOUTH ONCE A DAY FOR HEART/BLOOD PRESSURE. PREFERABLE TO TAKE ON EMPTY STOMACH. SWALLOW WHOLE; DO NOT CRUSH OR CHEW. AVOID GRAPEFRUIT JUICE. 12) OLOPATADINE HCL 0.2% OPH SOLN INSTILL 1 DROP IN BOTH ACTIVE EYES ONCE A DAY FOR OCULAR ALLERGIES, ITCHING 13) OMEPRAZOLE 20MG EC CAP TAKE ONE CAPSULE BY MOUTH ACTIVE EVERY MORNING BEFORE A MEAL TO LOWER STOMACH ACID. TAKE 30 MINUTES PRIOR TO FOOD. 14) PEG 400 0.4%/PROP GLYCOL 0.3% OPH SOLN INSTILL 1 DROP ACTIVE IN BOTH EYES FOUR TIMES A DAY NEEDED FOR DRY EYE(S) 15) SEMAGLUTIDE 1MG/0.75ML INJ PEN 3ML INJECT 1MG UNDER ACTIVE THE SKIN EVERY WEEK FOR DIABETES 16) SODIUM BICARBONATE 650MG TAB TAKE TWO TABLETS BY ACTIVE MOUTH THREE TIMES A DAY FOR STOMACH ACID LOWERING 17) TAMSULOSIN HCL 0.4MG CAP TAKE ONE CAPSULE BY MOUTH ACTIVE TWICE A DAY FOR BENIGN PROSTATIC HYPERPLASIA APPROXIMATELY 30 MINUTES AFTER THE SAME MEAL EACH DAY 1) SODIUM ZIRCONIUM CYCLOSILICATE (PA-F) PO ONE-TIME 10GM/PKT 2) DEXTROSE 50% INJ,SOLN IVP ONE-TIME 50 ML 3) INSULIN ASPART (NOVOLOG) INJ IVP ONE-TIME 5 UNITS 4) APIXABAN (PA-F) TAB,ORAL PO BID 5MG 5) ATORVASTATIN TAB PO QPM 80MG 6) CALCITRIOL CAP,ORAL PO DAILY 0.5MCG 7) CARVEDILOL TAB PO CC BID 8) HEPARIN (PORK) INJ,SOLN SC Q8H 5000UNIT/1ML 9) MAGNESIUM OXIDE TAB PO DAILY 400MG 10) NIFEDIPINE (SUSTAINED RELEASE) TAB,SA PO QDAILY 90MG 11) OMEPRAZOLE CAP,EC PO QAMAC 20MG 12) TAMSULOSIN CAP,ORAL PO BID PC 13) GLUCAGON INJ IM PRN 1MG/1VIAL 14) GLUCOSE TAB,CHEWABLE PO PRN 16GM 15) DEXTROSE 50% INJ,SOLN IVP PRN 50 ML 16) OLOPATADINE HCL 0.2% SOLN,OPH OU QDAILY 1 DROP 17) INSULIN ASPART (NOVOLOG) INJ SQ TID AC SLIDING SCALE 18) INSULIN ASPART (NOVOLOG) INJ SQ QHS SLIDING SCALE 19) CALCIUM GLUCONATE 1GM/100ML INJ,SOLN IV ONE-TIME (4.6 mEq = 1 gm) For hyperkalemia Allergies/Adverse Drug Reactions: MORPHINE Past Medical/Surgical History: 1) Type II diabetes mellitus uncontrolled 2) Chronic atrial fibrillation 3) Essential hypertension 4) Hyperlipidemia 5) Gout 6) Chronic kidney disease 7) Thyroiditis 8) Chronic kidney disease stage 4 9) Hyperparathyroidism due to renal insufficiency 10) Metabolic acidosis 11) History of adenomatous polyp of colon 12) Sleep apnea 13) Therapeutic drug effect 14) Anticoagulant effect 15) Supraventricular tachycardia 16) Acute intestinal ischaemia 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 18) Residual foreign body in soft tissue 19) Chronic kidney disease 20) Superficial incisional surgical site infection SOCIAL HISTORY: denies rec drug use, smoking hx denies ETOH use FAMILY HISTORY: non-contributory ROS: General: + generalized fatigue Eyes: Denies recent changes in vision Hearing: Denies recent changes in hearing Nose/Sinuses: Denies congestion, rhinorrhea Nose/Throat: Denies sore throat, dysphagia Heart: Denies chest pain, palpitations Lungs: Denies SOB, Cough GI: Denies N/V/D/C, bright red or black stools Hem/Onc: Denies easy bruising, easy bleeding Neuro: Weakness/numbness Skin: Denies Rash, itching OBJECTIVE: VS: BP: P: R: WT: T: HT: 33.7 General: lethargic HEENT: EOM GI Heart: RRR, No mgr Lungs: Clear, no wrr Abdomen: NT/ND BS+ Vascular: LUE fistula w/ palpable thrill and audible bruit Extremities: No clubbing, cyanosis, edema. Neuro: mild b/l asterixis Skin: No gross rash Notable Laboratory Findings: WBC 9.2 10*3/uL 01/07/2024 17:30 RBC 3.81 L 10*6/uL 01/07/2024 17:30 HGB 11.5 L g/dL 01/07/2024 17:30 HCT 34.3 L % 01/07/2024 17:30 MCV 90.0 fL 01/07/2024 17:30 MCH 30.2 pg 01/07/2024 17:30 MCHC 33.5 g/dL 01/07/2024 17:30 RDW 13.8 % 01/07/2024 17:30 PLT 281 10*3/uL 01/07/2024 17:30 MPV 11.5 H fL 01/07/2024 17:30 NEUTROPHILS, AUTO % 73 % 01/07/2024 17:30 LYMPHOCYTES, AUTO % 15 % 01/07/2024 17:30 MONOCYTES, AUTO % 7 % 01/07/2024 17:30 EOSINOPHILS, AUTO % 4 % 01/07/2024 17:30 BASOPHILS, AUTO % 0 % 01/07/2024 17:30 IMMATURE GRANS, AUTO % 0.4 % 06/18/2022 12:10 NEUTROPHILS, ABSOLUTE 6.64 10*3/uL 01/07/2024 17:30 LYMPHOCYTES, ABSOLUTE 1.41 10*3/uL 01/07/2024 17:30 MONOCYTES, ABSOLUTE 0.67 10*3/uL 01/07/2024 17:30 EOSINOPHILS, ABSOLUTE 0.35 10*3/uL 01/07/2024 17:30 BASOPHILS, ABSOLUTE 0.03 10*3/uL 01/07/2024 17:30 IMMATURE GRANS, AUTO ABS 0.03 10*3/uL 06/18/2022 12:10 Comprehensive Metabolic Panel Results: SODIUM 135 L mEq/L 01/07/2024 17:30 POTASSIUM 5.7 H mEq/L 01/07/2024 21:08 CHLORIDE 111 H mEq/L 01/07/2024 17:30 UREA NITROGEN 93.0 H mg/dL 01/07/2024 17:30 CREATININE 8.88 H mg/dL 01/07/2024 17:30 CALCIUM 8.9 mg/dL 01/07/2024 17:30 PROTEIN 7.6 g/dL 01/07/2024 17:30 ALBUMIN 4.0 g/dL 01/07/2024 17:30 ALKALINE PHOSPHATASE 100 U/L 01/07/2024 17:30 ALT/SGPT 17 U/L 01/07/2024 17:30 AST/SGOT 18 U/L 01/07/2024 17:30 TOTAL BILIRUBIN 0.4 mg/dL 01/07/2024 17:30 CARBON DIOXIDE 13 L mEq/L 01/07/2024 17:30 GLUCOSE 110 H mg/dL 01/07/2024 17:30 EGFR (CKD-EPI 2020) 5.9 L* 01/07/2024 17:30 Hepatic Panel: No data available SODIUM 135 L mEq/L 01/07/2024 17:30 POTASSIUM 5.7 H mEq/L 01/07/2024 21:08 CHLORIDE 111 H mEq/L 01/07/2024 17:30 UREA NITROGEN 93.0 H mg/dL 01/07/2024 17:30 CREATININE 8.88 H mg/dL 01/07/2024 17:30 CALCIUM 8.9 mg/dL 01/07/2024 17:30 CARBON DIOXIDE 13 L mEq/L 01/07/2024 17:30 GLUCOSE 110 H mg/dL 01/07/2024 17:30 EGFR (CKD-EPI 2020) 5.9 L* 01/07/2024 17:30 1.3 mg/dL L (12/11/23 12:02) PHOSPHOROUS 3.7 mg/dL 12/11/2023 12:02 GLUCOSE,BLOOD-poct (STL) 157 H mg/dL 01/07/2024 23:36 GLUCOSE,BLOOD-poct (STL) 113 H mg/dL 11/02/2023 15:16 GLUCOSE,BLOOD-poct (STL) 59 L mg/dL 11/02/2023 14:50 GLUCOSE,BLOOD-poct (STL) 173 H mg/dL 06/24/2023 11:07 GLUCOSE,BLOOD-poct (STL) 86 mg/dL 06/24/2023 05:25 GLUCOSE,BLOOD-poct (STL) 102 H mg/dL 06/23/2023 21:02 HGA1C 6.0 % 11/16/2023 16:49 HGA1C 6.2 H % 11/12/2022 12:07 HGA1C 6.4 H % 07/15/2022 12:17 HGA1C 6.2 H % 12/12/2021 16:33 HGA1C 6.8 H % 08/19/2021 14:54 Cardiac Enzymes ____ TROPONIN I 0.030 ng/mL 07/26/2023 18:50 TSH: TSH 3.471 uIU/mL 11/12/2022 12:07 Ancillary Data: 07/27/2023 10:01 Local Title: EKG CONSULT STL Standard Title: CARDIOLOGY DIAGNOSTIC STUDY CONSULT AUTHOR: CLINICAL,DEVICE PROXY SERVICE DOCUMENT IN [facility] SEE FULL REPORT IN [facility] SIGNATURE NOT REQUIRED SEE SIGNATURE IN [facility] ([place] EKG) AUTO-INSTRUMENT DIAGNOSIS Procedure: [id number] 12 Lead ECG Release Status: Released Off-Line Verified Date Verified: Jul 27, 2023@10:01:07 78203.2 Ventricular Rate: 62 BPM 28033.3 Atrial Rate: 62 BPM 34272.4 P-R Interval: 200 ms 88183.5 QRS Duration: 116 ms 68675.6 Q-T Interval: 406 ms 62272 QTC Calculation(Bazett)412 ms 43374.12 Calculated P [place]: 38 degrees 38904.13 Calculated R [place]: -33 degrees 97770.14 Calculated T [place]: 50 degrees Normal sinus rhythm NIKKI Left axis deviation Incomplete right bundle branch block Abnormal ECG When compared with ECG of 21-JUN-2023 14:27, No significant change was found Administrative Closure: 07/27/2023 by: CLINICAL,DEVICE PROXY SERVICE < THE ABOVE NOTE IS UNSIGNED > - DRAFT COPY * DRAFT COPY * DRAFT COPY * DRAFT COPY * DRAFT COPY * DRAFT COPY - IMAGING: Assessment/Plan: CKD Stage V with concern for progression to ESRD Metabolic Acidosis -pt with mild Sx of uremia -Access site: LUE AV fistula. palpable thrill and audible bruit. Per last nephro note, OK to use per vascular. -per Nephro notes, pt is currently undergoing transplant eval at [facility] -Nephro consulted. Plan to initiate HD in AM. -Keeping NPO @ [facility] per Nephro recs in case pt may need a tunneled HD -Renal Diet -Resume pt's home NaBicarb Hyperkalemia likely 2/2 to above and metabolic acidosis -s/p 2 amps of HCO3 in ED -EKG w/ prolonged pr interval in precordial leads and hyperacute t waves PLAN -Repeat K is 5.0 after Bicarb administration. Will order Lokelma for now -Ordered IV Calcium Gluconate 1 g daily -Continue tele monitoring T2DM -Pt's last A1c in 12/05 was 6.0 PLAN -Holding Lantus given BGs in 80s - 100s -On d/c, pt may likely not need insulin. -0-6 SSI for now. HTN -Continue Nifedipine 90 mg daily and Carvedilol 25 mg bid Hx of Afib s/p Ablation -Continue Eliquis HLD -Continue Atorvastatin Is the patient 65 or older? Yes Is the patient displaying signs of delirium? No Does the patient have a change in their mental status? No Is the patient displaying signs of confusion? No Is the patient displaying signs of disorientation? No This patient was screened for delirium. His/Her current risk level for delirium is : low TOBACCO CESSATION SCREEN AND COUNSELING Has patient used any form of tobacco during the past 30 days? ORYX tobacco: patient has not used tobacco during past 30 days. SCREEN FOR ALCOHOL (AUDIT-C) AUDIT-C An alcohol screening test (AUDIT-C) was negative (score=0). 1. How often did you have a drink containing alcohol in the past year? Never 2. How many drinks containing alcohol did you have on a typical day when you were drinking in the past year? Response not required due to responses to other questions. 3. How often did you have six or more drinks on one occasion in the past year? Response not required due to responses to other questions. ======== Bundle: ======== Code status: Full Patient's call or contact centre coach, last time contacted: Vitals: q4h Activity: as tolerated Diet: renal DVT prophylaxis: hep sq IVs/Urinary Catheter/Access: PIV Services consulted: Nephrology Social Work Issues: home once medically stable Follow-up Appointment(s) needed: PCP Disposition: home once medically stable /edwar/ Iraj Griffin DO Resident Physician Signed: 01/08/2024 05:16 /edwar/ MARLEEN LOMAX MD// INTERNAL MEDICINE ATTENDING Cosigned: 01/08/2024 10:54 01/08/2024 ADDENDUM STATUS: COMPLETED I have seen and evaluated the patient with the resident on 01/08/2024. I have independently reviewed chart documentation, lab results, imaging studies and directly supervised medical decision making with the team. I have reviewed and agree with the note above unless otherwise documented below. History as summarized above. 12-system ROS completed and negative unless otherwise stated in HPI Family history reviewed and non-contributory Agree with exam above, with the following additions/modifications: A/P 68 yo M w/PMH of CKD5, AF on Eliquis, JONAH, HTN, DM2 who presented to the ED with fatigue, loss of appetite, and numbness/tingling in distal extremities. #. CKD5, now likely ESRD: Symptoms may be 2/2 uremia. Cr previously ~6 but up to 8.13 on 12/11/23 and admitted with Cr 8.88 with multiple associated electrolyte abnormalities. -Plan to start HD this PM per nephrology. Access: LUE AVF (placed 11/2022, +thrill) -Will need to establish with outpatient HD center -Renal diet #. NAGMA 2/2 CKD -s/p 2 amps bicarb and started on PO bicarb, which can likely be discontinued with initiation of HD #. Hyperkalemia -s/p temporizing measures and Lokelma overnight. Last K 5.4, plan to give additional dose of Lokelma this morning -HD initiation planned for this afternoon #. Renal osteodystrophy -Continue calcitriol 0.5 daily pending renal recs #. Afib, likely paroxysmal -Continue Eliquis #. DM2, controlled: A1c 6 11/2023 -Hold insulin (home regimen Lantus 16 + aspart 10 BID). BG on lower end and given A1c and declining renal function, will monitor on SSI only and may be able to discontinue insulin on discharge #. Anemia in CKD -Hgb 11.5, monitor /edwar/ MARLEEN LOMAX MD// INTERNAL MEDICINE ATTENDING Signed: 01/08/2024 11:14 IRAJ GRIFFIN [facility] Jan 07, 2024 11:58 PM NURSING NOTE: LOCAL TITLE: [facility] SKIN INSPECTION/ASSESSMENT STANDARD TITLE: NURSING NOTE DATE OF NOTE: JAN 07, 2024@23:58 ENTRY DATE: JAN 07, 2024@23:58:32 AUTHOR: JUAN FRANCISCO RYAN EXP COSIGNER: URGENCY: STATUS: COMPLETED INITIAL SKIN INSPECTION/ASSESSMENT SKIN INSPECTION: Skin Color: Usual for ethnicity Skin Temperature: Warm Skin Moisture: Normal Skin Turgor: Elastic (normal/immediate) Akiko Skin Assessment: The patient's Akiko Scale Score is 22. The patient is considered not at risk for development of pressure ulcers/injuries. Sensory perception -- ability to respond meaningfully to pressure-related discomfort No impairment. Moisture -- degree to which skin is exposed to moisture Rarely moist. Activity -- ability to change and control body position Walks frequently. Mobility -- ability to change and control body position No limitation. Nutrition -- usual food intake patterns Adequate. Friction and shear No apparent problem. INTERVENTIONS: The pressure injury interventions were not needed - patient/resident is not at risk. RISK FACTORS THAT INCREASE RISK FOR DEVELOPING PRESSURE INJURIES: The patient/resident has the following: Device(s): (nasogastric tubes, oxygen tubing, urinary catheters, cell phone etc.) Comment: PIV, Cell phone SKIN INTEGRITY: Intact, Right AV fistula /edwra/ BUFFY ZHAO,RN REGISTERED NURSE Signed: 01/08/2024 00:07 Receipt Acknowledged By: 01/08/2024 00:47 /edwar/ BUFFY DANIEL RN REGISTERED NURSE JUAN FRANCISCO RYAN [facility] Jan 07, 2024 11:40 PM NURSING ADMISSION EVALUATION NOTE: LOCAL TITLE: [facility]) ACUTE INPATIENT NSG ADMISSION SCREEN STANDARD TITLE: NURSING ADMISSION EVALUATION NOTE DATE OF NOTE: JAN 07, 2024@23:40 ENTRY DATE: JAN 07, 2024@23:41:03 AUTHOR: JUAN FRANCISCO RYAN EXP COSIGNER: URGENCY: STATUS: COMPLETED ALLERGY/ADVERSE DRUG REACTION (ADR) REVIEW (MRT5) FACILITY ALLERGY/ADR -------- [facility] M[facility]PHINE [facility]PHINE [facility] NO KNOWN ALLERGIES Allergy/Adverse Drug Reaction Review to be conducted by: Nurse: Results of Allergy/ADR Review: Allergy/Adverse Drug Reaction list confirmed. MEDICATION REVIEW (MRR1) Did patient bring medication(s) from home? No Medication Review conducted by Nurse Results of Medication Review: Active Medication List: INCLUDED IN THIS LIST: Alphabetical list of active outpatient prescriptions [facility]ensed from this [facility] (local) and dispensed from another [facility] or [facility] facility (remote) as well as inpatient orders (local pending and active), local clinic medications, locally documented non-VA medications, and local prescriptions that have or been discontinued in the past 90 days. Non-VA Meds Last Documented On: Nov 24, 2019 NOTE The display of VA prescriptions dispensed from another [place] or [facility] facility (remote) is limited to active outpatient prescription entries matched to National Drug File at the originating site and may not include some items such as investigational drugs, compounds, etc. NOT INCLUDED IN THIS LIST: Medications self-entered by the patient into personal health records (i.e. [employer]) are NOT included in this list. Non-VA medications documented outside this [place], remote inpatient orders (regardless of status) and remote clinic medications are NOT included in this list. The patient and provider must always discuss medications the patient is taking, regardless of where the medication was dispensed or obtained. CLIN HYDROCODONE 5MG/ACETAMINOPH 325MG TAB UD (Status=Discontinued) ONE TABLET (5MG/325MG EA) BY MOUTH ONE-TIME STAT (FOR E.R. ADMINISTRATION ONLY) Indication: FOR PAIN <AUTO DC> INPT APIXABAN 5MG TAB (Status=Active) 5MG BY MOUTH TWICE A DAY Indication: FOR ANTICOAGULATION OUTPT APIXABAN 5MG TAB (Status = Active) TAKE ONE TABLET BY MOUTH TWICE A DAY FOR ANTICOAGULATION Rx# [id number] Last Released: 10/15/23 Qty/Days Supply: 180 Rx Expiration Date: 10/14/24 Refills Remainin OUTPT ATORVASTATIN CALCIUM 80MG TAB (Status = Discontinued) TAKE ONE TABLET BY MOUTH EVERY EVENING FOR CHOLESTEROL. REPORT ANY UNEXPLAINED MUSCLE PAIN/WEAKNESS TO PROVIDER. Rx# [id number] Last Released: 11/03/23 Qty/Days Supply: Rx Expiration Date: 12/30/23 Refills Remainin OUTPT ATORVASTATIN CALCIUM 80MG TAB (Status = Active/Suspended) TAKE ONE TABLET BY MOUTH EVERY EVENING FOR CHOLESTEROL. REPORT ANY UNEXPLAINED MUSCLE PAIN/WEAKNESS TO PROVIDER. Rx# [id number] Last Released: Qty/Days Supply: Rx Expiration Date: 11/16/24 Refills Remainin INPT ATORVASTATIN CALCIUM 80MG TAB (Status=Active) 80MG BY MOUTH EVERY EVENING Indication: FOR HIGH CHOLESTEROL OUTPT CALCITRIOL 0.5MCG CAP (Status = Active) TAKE ONE CAPSULE BY MOUTH ONCE A DAY Rx# [id number] Last Released: 09/07/23 Qty/Days Supply: 90 Rx Expiration Date: 09/01/24 Refills Remainin Indication: FOR LOW PARATHYROID HORMONE INPT CALCITRIOL 0.5MCG CAP (Status=Active) 0.5MCG BY MOUTH DAILY Indication: FOR LOW PARATHYROID HORMONE INPT CALCIUM GLUCONATE INJ,SOLN (Status=Pending) CALCIUM GLUCONATE INJ,SOLN 4.6 MEQ in SODIUM CHLORIDE 0.9% INJ,SOLN 100 ml IV INFUSE OVER 60 Minutes ONE-TIME (4.6 mEq = 1 gm) For hyperkalemia Indication: FOR CARDIAC ARREST OUTPT CARBOXYMETHYLCELLULOSE NA 0.5% OPH SOLN (Status = Discontinued) INSTILL 1 DROP IN BOTH EYES FOUR TIMES A DAY NEEDED FOR DRY EYE(S) Rx# [id number] Last Released: 12/24/22 Qty/Days Supply: Rx Expiration Date: 12/25/23 Refills Remainin Indication: FOR DRY EYE(S) OUTPT CARVEDILOL 25MG TAB (Status = Active) TAKE ONE TABLET BY MOUTH TWICE A DAY FOR HIGH BLOOD PRESSURE TAKE WITH FOOD. Rx# [id number] Last Released: 09/29/23 Qty/Days Supply: 180/ Rx Expiration Date: 08/31/24 Refills Remainin Indication: FOR HIGH BLOOD PRESSURE INPT CARVEDILOL 25MG TAB (Status=Active) 25MG BY MOUTH CC TWICE A DAY Indication: FOR HIGH BLOOD PRESSURE INPT DEXTROSE 50% INJ SYR 50ML (Status=Active) 50 ML IVP NEEDED GIVE NEEDED FOR HYPOGLYCEMIA. If blood sugar < 70 and patient unable to take PO, give D50 per protocol. Indication: FOR LOW BLOOD SUGAR INPT DEXTROSE 50% INJ,SOLN (Status=Pending) DEXTROSE 50% BY INJECTION SYR 50ML 50 ML IVP ONE-TIME hyperkalemia Indication: FOR LOW BLOOD SUGAR OUTPT EYELID CLEANSER,EYE SCRUB PAD (Status = ) USE/APPLY PAD BOTH EYES ONCE A DAY FOR EYELID HYGIENE FOR EXTERNAL USE ONLY. REMOVE CONTACT LENSES PRIOR TO USE. USE ON UPPER AND LOWER EYELIDS. DO NOT TOUCH EYES DIRECTLY Rx# [id number] Last Released: 12/29/22 Qty/Days Supply: Rx Expiration Date: 12/26/23 Refills Remainin Indication: FOR EYELID HYGIENE OUTPT FEBUXOSTAT 80MG TAB (Status = Active) TAKE ONE-HALF TABLET BY MOUTH ONCE A DAY FOR HYPERURICEMIA Rx# [id number] Last Released: 11/17/23 Qty/Days Supply: Rx Expiration Date: 11/16/24 Refills Remainin Indication: FOR HYPERURICEMIA OUTPT GABAPENTIN 300MG CAP (Status = Active) TAKE ONE CAPSULE BY MOUTH AT BEDTIME NEEDED FOR NERVE PAIN Rx# [id number] Last Released: 11/17/23 Qty/Days Supply: Rx Expiration Date: 11/16/24 Refills Remainin Indication: FOR NERVE PAIN OUTPT GABAPENTIN 600MG TAB (Status = Discontinued) TAKE ONE TABLET BY MOUTH AT BEDTIME FOR NERVE PAIN Rx# [id number] Last Released: Qty/Days Supply: Rx Expiration Date: 11/16/24 Refills Remainin Indication: FOR NERVE PAIN INPT GLUCAGON 1MG/EVAN INJ EMERGENCY KIT (Status=Active) 1MG/1VIAL INTRAMUSCULAR NEEDED GIVE NEEDED FOR HYPOGLYCEMIA. If blood sugar < 70 and patient unresponsive without IV access, give glucagon per protocol. Indication: FOR LOW BLOOD SUGAR INPT GLUCOSE 4GM CHEW TAB (Status=Active) 16GM BY MOUTH NEEDED GIVE NEEDED FOR HYPOGLYCEMIA. If blood sugar < 70 and patient able to take PO, give glucose tab per protocol. Indication: FOR LOW BLOOD SUGAR INPT HEPARIN NA (PORK) 5000 UNT/ML INJ (Status=Active) 5000UNIT/1ML UNDER THE SKIN EVERY EIGHT HOURS for DVT Prophylaxis Indication: FOR ANTICOAGULATION INPT INSULIN,ASPART,HUMAN 100 UNIT/ML INJ (Status=Active) SLIDING SCALE UNDER THE SKIN THREE TIMES A DAY BEFORE MEAL(S) HS/Bedtime 200-249: 1 Unit 250-299: 2 Units 300-349: 3 Units > 350: 4 Units and CALL PROVIDER AC/Before Meals <70: Follow hypoglycemic protocol and CALL PROVIDER 150-199: 1 Unit 200-249: 2 Units 250-299: 3 Units 300-349: 4 Units >350: 5 Units and CALL PROVIDER; Indication: FOR DIABETES INPT INSULIN,ASPART,HUMAN 100 UNIT/ML INJ (Status=Active) SLIDING SCALE UNDER THE SKIN AT BEDTIME HS/Bedtime 200-249: 1 Unit 250-299: 2 Units 300-349: 3 Units > 350: 4 Units and CALL PROVIDER AC/Before Meals <70: Follow hypoglycemic protocol and CALL PROVIDER 150-199: 1 Unit 200-249: 2 Units 250-299: 3 Units 300-349: 4 Units >350: 5 Units and CALL PROVIDER; Indication: FOR DIABETES INPT INSULIN ASPART (NOVOLOG) INJ (Status=Pending) INSULIN ASPART (NOVOLOG) BY INJECTION 100UNIT/ML 5 UNITS IV PUSH ONE-TIME FOR HYPERKALEMIA Indication: FOR DIABETES OUTPT INSULIN,ASPART(EQV-NOVLG)100UN/ ML FLXPEN (Status = Discontinued) INJECT 10 UNITS UNDER THE SKIN TWO TIMES A DAY BEFORE MEALS FOR BLOOD SUGAR CONTROL. ADMINISTER 10 MINUTES BEFORE FOOD DIRECTED. REFRIGERATE UN-OPENED PENS. DISCARD CARTRIDGE 28 DAYS AFTER OPENING. Rx# [id number] Last Released: 12/22/22 Qty/Days Supply: Rx Expiration Date: 11/14/23 Refills Remainin OUTPT INSULIN,ASPART(EQV-NOVLG)100UN/ ML FLXPEN (Status = Active) INJECT 10 UNITS UNDER THE SKIN TWO TIMES A DAY BEFORE MEALS FOR BLOOD SUGAR CONTROL. ADMINISTER 10 MINUTES BEFORE FOOD DIRECTED. REFRIGERATE UN-OPENED PENS. DISCARD CARTRIDGE 28 DAYS AFTER OPENING. Rx# [id number] Last Released: 11/17/23 Qty/Days Supply: Rx Expiration Date: 11/16/24 Refills Remainin OUTPT INSULIN,GLARGINE-YFGN 100UNIT/ML INJ (Status = Discontinued) INJECT 16 UNITS UNDER THE SKIN ONCE A DAY TO CONTROL BLOOD SUGAR. ADMINISTER AT SAME TIME EACH DAY DIRECTED. DISCARD ANY VIAL 28 DAYS AFTER OPENING. Rx# [id number] Last Released: 09/21/23 Qty/Days Supply: Rx Expiration Date: 11/14/23 Refills Remainin OUTPT INSULIN,GLARGINE-YFGN 100UNIT/ML INJ (Status = Active) INJECT 16 UNITS UNDER THE SKIN ONCE A DAY TO CONTROL BLOOD SUGAR. ADMINISTER AT SAME TIME EACH DAY DIRECTED. DISCARD ANY VIAL 28 DAYS AFTER OPENING. Rx# [id number] Last Released: 11/19/23 Qty/Days Supply: Rx Expiration Date: 11/16/24 Refills Remainin OUTPT KETOTIFEN 0.025% OPH SOLN (Status = Discontinued) INSTILL 1 DROP IN BOTH EYES TWICE A DAY FOR ITCH Rx# [id number] Last Released: 12/24/22 Qty/Days Supply: 03/10 Rx Expiration Date: 12/25/23 Refills Remainin Indication: FOR ALLERGIC CONJUNCTIVITIS OUTPT MAGNESIUM OXIDE 400MG TAB (Status = Discontinued) TAKE ONE TABLET BY MOUTH ONCE A DAY Rx# [id number] Last Released: 11/03/23 Qty/Days Supply: 120 Rx Expiration Date: 12/30/23 Refills Remainin OUTPT MAGNESIUM OXIDE 400MG TAB (Status = Active/Suspended) TAKE ONE TABLET BY MOUTH ONCE A DAY Rx# [id number] Last Released: Qty/Days Supply: 120 Rx Expiration Date: 11/16/24 Refills Remainin INPT MAGNESIUM OXIDE 400MG TAB (Status=Active) 400MG BY MOUTH DAILY Indication: FOR DIETARY MAGNESIUM SUPPLEMENTATION OUTPT NIFEDIPINE (EQV-CC) 90MG SA TAB (Status = Discontinued) TAKE ONE TABLET BY MOUTH ONCE A DAY FOR HEART/BLOOD PRESSURE. PREFERABLE TO TAKE ON EMPTY STOMACH. SWALLOW WHOLE; DO NOT CRUSH OR CHEW. AVOID GRAPEFRUIT JUICE. Rx# [id number] Last Released: 09/02/23 Qty/Days Supply: Rx Expiration Date: 12/19/23 Refills Remainin OUTPT NIFEDIPINE (EQV-CC) 90MG SA TAB (Status = Active) TAKE ONE TABLET BY MOUTH ONCE A DAY FOR HEART/BLOOD PRESSURE. PREFERABLE TO TAKE ON EMPTY STOMACH. SWALLOW WHOLE; DO NOT CRUSH OR CHEW. AVOID GRAPEFRUIT JUICE. Rx# [id number] Last Released: 11/17/23 Qty/Days Supply: 90 Rx Expiration Date: 11/16/24 Refills Remainin INPT NIFEDIPINE (EQV-CC) 90MG SA TAB (Status=Active) 90MG BY MOUTH QDAILY Indication: FOR HIGH BLOOD PRESSURE OUTPT OLOPATADINE HCL 0.2% OPH SOLN (Status = Active) INSTILL 1 DROP IN BOTH EYES ONCE A DAY FOR OCULAR ALLERGIES, ITCHING Rx# [id number] Last Released: 12/18/23 Qty/Days Supply: Rx Expiration Date: 12/18/24 Refills Remainin Indication: FOR OCULAR ALLERGIES, ITCHING INPT OLOPATADINE HCL 0.2% OPH SOLN (Status=Pending) ONE DROP IN EACH EYE QDAILY Indication: FOR OCULAR ALLERGIES, ITCHING OUTPT OMEPRAZOLE 20MG EC CAP (Status = Discontinued) TAKE ONE CAPSULE BY MOUTH EVERY MORNING BEFORE A MEAL TO LOWER STOMACH ACID. TAKE 30 MINUTES PRIOR TO FOOD. Rx# [id number] Last Released: 07/23/23 Qty/Days Supply: Rx Expiration Date: 12/30/23 Refills Remainin OUTPT OMEPRAZOLE 20MG EC CAP (Status = Active) TAKE ONE CAPSULE BY MOUTH EVERY MORNING BEFORE A MEAL TO LOWER STOMACH ACID. TAKE 30 MINUTES PRIOR TO FOOD. Rx# [id number] Last Released: 11/17/23 Qty/Days Supply: Rx Expiration Date: 11/16/24 Refills Remainin INPT OMEPRAZOLE 20MG EC CAP (Status=Active) 20MG BY MOUTH QAMAC Indication: FOR GASTROESOPHAGEAL REFLUX DISEASE OUTPT PEG 400 0.4%/PROP GLYCOL 0.3% OPH SOLN (Status = Active) INSTILL 1 DROP IN BOTH EYES FOUR TIMES A DAY NEEDED FOR DRY EYE(S) Rx# [id number] Last Released: 12/22/23 Qty/Days Supply: Rx Expiration Date: 12/18/24 Refills Remainin Indication: FOR DRY EYE(S) OUTPT PREGABALIN 25MG ORAL CAP (Status = ) TAKE ONE CAPSULE BY MOUTH EVERY EVENING FOR NERVE PAIN *MAY CAUSE DROWSINESS* TAKE AFTER DIALYSIS, Rx# [id number] Last Released: 04/28/23 Qty/Days Supply: Rx Expiration Date: 10/28/23 Refills Remainin Indication: FOR NERVE PAIN OUTPT SEMAGLUTIDE 1MG/0.75ML INJ PEN 3ML (Status = Active) INJECT 1MG UNDER THE SKIN EVERY WEEK FOR DIABETES Rx# [id number] Last Released: 10/29/23 Qty/Days Supply: Rx Expiration Date: 10/13/24 Refills Remainin Indication: FOR DIABETES CLIN SODIUM BICARBONATE 84MG/ML INJ SYR 50ML (Status=Discontinued) 100mEq = 2 syr = 100ml IV ONE-TIME Indication: FOR METABOLIC ACIDOSIS <AUTO DC> OUTPT SODIUM BICARBONATE 650MG TAB (Status = Discontinued) TAKE TWO TABLETS BY MOUTH THREE TIMES A DAY FOR STOMACH ACID LOWERING Rx# [id number] Last Released: 09/17/23 Qty/Days Supply: 180/30 Rx Expiration Date: 12/14/23 Refills Remainin Indication: FOR STOMACH ACID LOWERING OUTPT SODIUM BICARBONATE 650MG TAB (Status = Active) TAKE TWO TABLETS BY MOUTH THREE TIMES A DAY FOR STOMACH ACID LOWERING Rx# [id number] Last Released: 12/31/23 Qty/Days Supply: 18030 Rx Expiration Date: 12/25/24 Refills Remainin Indication: FOR STOMACH ACID LOWERING INPT SODIUM ZIRCONIUM CYCLOSILICATE 10GM/PKT (Status=Pending) 10GM/PKT BY MOUTH ONE-TIME BONITA Indication: FOR HIGH POTASSIUM INPT TAMSULOSIN HCL 0.4MG CAP (Status=Active) 0.4MG BY MOUTH TWICE A DAY AFTER MEALS Indication: FOR BENIGN PROSTATIC HYPERPLASIA OUTPT TAMSULOSIN HCL 0.4MG CAP (Status = Discontinued) TAKE ONE CAPSULE BY MOUTH TWICE A DAY FOR BENIGN PROSTATIC HYPERPLASIA APPROXIMATELY 30 MINUTES AFTER THE SAME MEAL EACH DAY Rx# [id number] Last Released: 12/05/22 Qty/Days Supply: 180/90 Rx Expiration Date: 12/04/23 Refills Remainin Indication: FOR BENIGN PROSTATIC HYPERPLASIA OUTPT TAMSULOSIN HCL 0.4MG CAP (Status = Active) TAKE ONE CAPSULE BY MOUTH TWICE A DAY FOR BENIGN PROSTATIC HYPERPLASIA APPROXIMATELY 30 MINUTES AFTER THE SAME MEAL EACH DAY Rx# [id number] Last Released: 12/30/23 Qty/Days Supply: 180/90 Rx Expiration Date: 12/25/24 Refills Remainin Indication: FOR BENIGN PROSTATIC HYPERPLASIA SUPPLIES OUTPT INSULIN SYRINGE 0.5ML 30G 12MM (Status = Active) USE 1 SYRINGE UNDER THE SKIN ONCE A DAY TO USE WITH INSULIN Rx# [id number] Last Released: 09/19/23/ Supply: Rx Expiration Date: 09/17/24 Refills Remainin Indication: FOR DIABETES = MEDICATION REVIEW = 4. Patient/Family/Caregiver report TAKING WRITTEN all other medications GENERAL INFORMATION Admission information given by: Patient Is there a legal guardian/conservator? No Preferred language for discussing healthcare: Namibian Preferred mode of communication: Verbal Items at Bedside: Visual Aids: Standard Glasses INFECTIOUS DISEASE RISK SCREEN Travel Screen: Have you traveled within the [place] within the last 21 days? No Have you traveled outside the [place] within the last 21 days? No Within the last 14 days, have you had: No known exposure Other Exposure to Infectious Disease: No known exposure Patient reported the following symptoms: Weakness History of Multiple Drug Resistant Organism (MDRO): No Methicillin-resistant Staphylococcus aureus (MRSA) Swabbing: Informed verbal consent obtained Education provided NUTRITION SCREENING Malnutrition Screening Weight (Previous 6 months): Measurement DT WEIGHT LB(KG)[BMI] 01/07/2024 23:27 227.5(103.19)[34*] Lost weight recently without trying: No (0 points) Have you been eating poorly because of decreased appetite? No (0 points) Total Score: 0 Other Nutrition Screening Questions: The patient does not report any concerns with their teeth that would make it difficult to eat. The patient does not report overeating to the point of feeling sick or making themselves vomit. The patient denies gaining 10 lbs.(4.5 kgs) or more in the past 3 months without trying. The patient denies having any food allergies, intolerance, special dietary needs, or ethnic, cultural or cheondoism preferences that would affect their dietary needs. Food Insecurity Screening Within the past 12 months, you worried whether your food would run out before you got money to buy more. Never true Within the past 12 months, the food you bought just did not last you and you did not have the money to get more. Never true Food Insecurity Disposition: RISK SCREENINGS Alcohol Screen: Screen to be completed by: Nurse: SCREEN FOR ALCOHOL (AUDIT-C) An alcohol screening test (AUDIT-C) was negative (score=0). 1. How often did you have a drink containing alcohol in the past year? Consider a drink to be a 12 ounce can or bottle of regular beer, 8 ounces of malt liquor, a 5 ounce glass of table wine, or a 1.5 ounce shot of liquor (like scotch, gin, or vodka). Never 2. How many drinks containing alcohol did you have on a typical day when you were drinking in the past year? Response not required due to responses to other questions. 3. How often did you have six or more drinks on one occasion in the past year? Response not required due to responses to other questions. *Does the patient consume alcohol? No Tobacco Use: Never - tobacco user Do you currently or have you ever used alternative nicotine products? No Substance Use Assessment: *Do you use any recreational drugs or narcotics (prescription or non-prescription)? No RISK OF WANDERING The patient does not have a history of wandering. The patient does not have a history of elopement. The patient is not expressing a desire to leave. SUICIDE SCREEN Result of C-SSRS screener done was NEGATIVE. C-SSRS Screen is Negative EXPOSURE TO VIOLENCE AND ABUSE PRE-SCREEN Are you worried for your safety, that you will be hurt or harmed? No Has anyone tried to force you to sign papers or use your money against your will? No POST TRAUMATIC STRESS DISORDER CARE CONSIDERATIONS To minimize a startle response, what is your preference on how best to awaken you? Call my name from the doorway Knock before entering REPRODUCTIVE & SEXUAL HEALTH Do you have any sexual or reproductive concerns you would like your healthcare team to be aware of? No ADVANCE DIRECTIVE Notification of Rights Related to Advance Directives: Written notification not provided. Explain: decline the need at this time. *The patient wishes to receive information about or assistance with Advance Care Planning and/or Advance Directive: No SPIRITUALITY Are there cheondoism practices or spiritual concerns you want the tutoring manager, your provider, and other health care team members to know? No ANTICIPATED DISCHARGE NEEDS Where do you live? Housing owned/rented by Bailey: Method of transportation upon discharge: Private Vehicle: Are there any anticipated barriers to discharge? No EDUCATIONAL NEEDS/LEARNING STYLE Barriers to learning: Patient learning style preferences: 1:1 Printed materials Verbal explanation VISITOR INFORMATION Will you have a primary support person while in the hospital? Yes: Relationship to patient: Significant Other Visitor Name: Contact Number: Patient's Visitor Restriction preferences: No Privacy Review: VARGAS FALL SCALE & TIPS PROGRAM Vargas Fall Scale: The Vargas Fall scale was performed and score was 35. This is indicative of moderate risk for falls. History of falling: immediate or within 3 months? No Secondary diagnosis: Yes Ambulatory aid: None/bedrest/nurse assist Intravenous therapy/Heparin lock: Yes Gait/Transferring: Normal/bed rest/immobile Mental Status: Oriented to own ability/knows own limitations Fall Tailoring Interventions for Patient Safety (TIPS) Fall TIPS initiated with patient: Yes Interventions: Communicate recent fall or risk of harm PAIN ASSESSMENT Patient's acceptable pain goal: 0 No pain Are you currently experiencing pain? Yes - DVPRS scale used to assess Location: right hand and foot Defense and Veterans Pain Rating Scale (DVPRS): 7 Focus of attention, prevents doing daily activities Pain Score: 7 Primary Pain Assessment: Pain Type: Chronic Describe Pain (Quality): Musculoskeletal: Aching Neurological: Prickling, Tingling Pain Alleviating Interventions: Medication, see BAM /edwar/ BUFFY ZHAO,RN REGISTERED NURSE Signed: 01/07/2024 23:58 Receipt Acknowledged By: 01/07/2024 23:59 /es/ BUFFY DANIEL RN REGISTERED NURSE JUAN FRANCISCO RYAN [facility] Jan 07, 2024 11:40 PM NURSING INPATIENT NOTE: LOCAL TITLE: [facility] ACUTE INPATIENT NSG SHIFT ASSESSMENT STANDARD TITLE: NURSING INPATIENT NOTE DATE OF NOTE: JAN 07, 2024@23:40 ENTRY DATE: JAN 08, 2024@00:09:42 AUTHOR: JUAN FRANCISCO RYAN EXP COSIGNER: URGENCY: STATUS: COMPLETED [facility]AAES ACUTE INPATIENT NSG SHIFT ASSESSMENT Has ADDENDA Version 2.2 Charting in accordance with [place] APPR[place] STANDARD (VAAES) ACUTE INPATIENT/REHABILITATION NURSING ADMISSION SCREENING, ASSESSMENT, AND STANDARDS OF CARE ASSESSMENT HANDOFF Bedside report and handoff completed Safety check completed PAIN ASSESSMENT Patient's acceptable pain goal: 7 Focus of attention, prevents doing daily activities Are you currently experiencing pain? Yes - DVPRS scale used to assess Location: right hand and foot Defense and Veterans Pain Rating Scale (DVPRS): 7 Focus of attention, prevents doing daily activities Pain Score: 7 Primary Pain Assessment: Pain Type: Chronic Describe Pain (Quality): Musculoskeletal: Aching Neurological: Pain Alleviating Interventions: Medication, see MAR Positioning VARGAS FALL SCALE & TIPS PROGRAM Vargas Fall Scale: The Vargas Fall scale was performed and score was 35. This is indicative of moderate risk for falls. History of falling: immediate or within 3 months? No Secondary diagnosis: Yes Ambulatory aid: None/bedrest/nurse assist Intravenous therapy/Heparin lock: Yes Gait/Transferring: Normal/bed rest/immobile Mental Status: Oriented to own ability/knows own limitations Fall Tailoring Interventions for Patient Safety (TIPS) Fall TIPS initiated with patient: Yes Interventions: Communicate recent fall or risk of harm Assistance out of bed: Fall TIPS reviewed with patient: Yes Interventions: Communicate recent fall or risk of harm Assistance out of bed: Call for assistance before getting out of bed ENVIRONMENTAL SAFETY MANAGEMENT Implemented safety standards of care: -[place] to unit & environment -Adequate room lighting -Bed in low and locked position -Call light within reach -Personal items within reach -Traffic path in room free of clutter -Non-slip footwear -Upper/half length side rails up for bed mobility -Sensory aids within reach -Encourage patient to utilize sensory support Additional safety measures: Increased frequency of rounding NEUROLOGICAL Neurological Orientation: Oriented x4 Level of Consciousness (AVPU): Alert = Appears aware of and responsive to the environment on their own. Follows commands, opens eyes spontaneously, and tracks objects. Affect/behavior: Cooperative NEUROMUSCULAR/NEUROVASCULAR EXTREMITIES ASSESSMENT Strength: Edge Burnisher Bilateral: Strong Upper Extremity Bilateral: Full strength Lower Extremity Bilateral: Full strength Sensation: Upper Extremity Sensation Bilateral: Intact Lower Extremity Sensation Bilateral: Intact Temperature: Upper Extremity Temperature Bilateral: Warm Lower Extremity Temperature Bilateral: Warm CARDIOVASCULAR Heart Sounds: Normal (S1S2) Heart Rate/Rhythm (without personnel monitor): Regular Capillary Refill: All 4 extremities, less than or equal to 3 seconds. Peripheral Pulses: All 4 extremities, 3+ normal. Edema: None RESPIRATORY Respirations: Unlabored Pattern: Regular Breath Sounds Auscultated: Anterior and posterior Left Upper Lobe: Clear Right Upper Lobe: Clear Right Middle Lobe: Clear Left Lower Lobe: Clear Right Lower Lobe: Clear GASTROINTESTINAL Last bowel movement: 01/06/24 Abdominal Description: Protuberant (central obesity) Palpation: Soft, Non-tender Bowel Sounds: RUQ: Active LUQ: Active RLQ: Active LLQ: Active GENITOURINARY Elimination: Continent INTEGUMENTARY/SKIN/WOUND - (INCLUDING AKIKO) SEE NOTE: VAAES SKIN INPECTION/ASSESSMENT ACTIVITIES OF DAILY LIVING Hygiene ADLs: Oral Care: Non-ventilator patient: Patient teeth brushed: Independently The was educated that poor oral hygiene increases the risk of hospital acquired pneumonia and dental problems like gingivitis and tooth decay. Bailey was educated using their preferred method and verbalized understanding. MOBILITY Mobility Status: Independent: Able to stand and step without staff assistance Gait: Steady IV LINES Peripheral IV: Present on admission: No Line #1: Assessment: Location: Right, Forearm Gauge: 20 Dressing Condition: Clean, dry, intact Site Condition: No redness, swelling, pain Line Status: Patent/infusing Flushed PSYCHOSOCIAL Type of Emotional Support Provided: 1:1 discussion, Coping skills discussion, Ventilation of feelings encouraged /es/ BUFFY ZHAO,RN REGISTERED NURSE Signed: 01/08/2024 00:29 Receipt Acknowledged By: 01/08/2024 00:46 /es/ BUFFY DANIEL RN REGISTERED NURSE 01/08/2024 ADDENDUM STATUS: COMPLETED Version 2.2 Charting in accordance with [place] APPR[place] STANDARD (TXAES) ACUTE INPATIENT/REHABILITATION NURSING ADMISSION SCREENING, ASSESSMENT, AND STANDARDS OF CARE GENITOURINARY Supplemental Genitourinary: Dialysis: What is patient's usual dialysis schedule and when did they last have dialysis? AV Fistula: Location: [facility] Bruit Present: Yes Thrill Present: Yes INTEGUMENTARY/SKIN/WOUND - (INCLUDING AKIKO) SEE NOTE: VAAES SKIN INPECTION/ASSESSMENT /es/ BUFFY DANIEL RN REGISTERED NURSE Signed: 01/08/2024 00:49 JUAN FRANCISCO RYAN [facility] Jan 07, 2024 11:40 PM NURSING TREATMENT PLAN NOTE: LOCAL TITLE: [facility] PLAN OF CARE STANDARD TITLE: NURSING TREATMENT PLAN NOTE DATE OF NOTE: JAN 07, 2024@23:40 ENTRY DATE: JAN 08, 2024@00:31:51 AUTHOR: JUAN FRANCISCO RYAN EXP COSIGNER: URGENCY: STATUS: COMPLETED [place] PLAN OF CARE Has ADDENDA Plan of Care and Discharge Plan (nurse) TREATMENT PLAN Patient involved in making decisions about their care, treatment and plan for discharge Yes Date: Is the patient an elopement risk: No Does the patient have potential or actual alteration in skin integrity? No. Is patient at risk for aspiration related to signs/symptoms of dysphagia? No. Is the patient a fall risk? Yes. NURSING DIAGNOSIS: Falls Potential/Actual Injury Goals: Prior to discharge, patient will:--Injury due to fall will be minimized during hospital stay, --Verbalize safety measures to lower risk of fall/injury (lock w/c, use hand rails, ask for assistance) , --Maintain or preserve physical mobility during hospital stay Interventions: * Score 55 --Provide non slip footwear when ambulating (NSG) Care plan status: Continued Progress toward goals documented continuously through progress notes Patient Education(Nursing,SWS,PT/OT, tician,Rehab Therapist,&Physician) Instruct as to: Does patient have pain and/or chest pain? Yes, Pain NURSING DIAGNOSIS: Alteration in comfort: pain related to tingling and aching of right hand and right foot Goals: Prior to discharge, patient will:--Maintain or preserve physical mobility during hospital stay--Be able to participate in daily activities, --Verbalize satisfaction with pain management ongoing, --Verbalize understanding of disease. Intervention: --Implement and document use of alternative non pharmacological interventions i.e. hot/cold pack, massage, biofeedback, relaxation techniques distraction, etc., --Administer medications per order, --Assess pain characteristics and probable cause(s) i.e. intensity, location, pain level on scale 1-10.(Nursing,Physicians), --Monitor need for and evaluate patient's response to pain medication Q1hr.(Nursing,Physicians), --Encourage verbalization of pain. (Nursing, Physicians), --Provide instruction on causes of pain, appropriate prevention and relief measures (Nursing,Pharmacy,Physicians) Care plan status: Continued Progress toward goals documented continuously through progress notes Patient education: --Normal function and disease process., --Treatment regimen-purpose and effect including: Diet, medications, activity, risk factors, and significant symptoms. No. NURSING DIAGNOSIS: Altered Health Maintenance related to generalized weakness Goals: *Prior to discharge, patient will:--Participate actively in health maintenance activities., --Describe resources available to assist in maintenance of health by discharge, --Identify factors affecting present altered health maintenance ability Interventions:--Assess patient's knowledge of health maintenance behaviors.( Md Shanti,), --Assess factors impairing ability to maintain health.(MD Shanti, PT,OT), --Monitor patient's progress in re-establishing health maintenance control. (MD SHANTI,), --Assist patient to evaluate personal strengths and weaknesses that affect health maintenance ability.(SHANTI PALOMARES,PT,OT), -- Collaborate with patient to determine and develop behaviors needed to maintain health.(Nursing, SWS, PT/OT, Quality Analyst, Rehab Therapist, & Physician) Care plan status: Continued Progress toward goals documented continuously through progress notes Patient Education(Nursing, SWS, PT/OT, Quality Analyst, Rehab Therapist,& Physician) Instruct:--To recognize altered health state., --About knowledge deficits identified regarding health state. /edwar/ BUFFY ZHAO,RN REGISTERED NURSE Signed: 01/08/2024 00:43 Receipt Acknowledged By: 01/08/2024 00:51 /es/ BUFFY DANIEL RN REGISTERED NURSE 01/09/2024 ADDENDUM STATUS: COMPLETED The Nursing Care Plan has been reviewed. Progress on the Goals/Outcomes is as follows: Discharge Planning: Assessment of patient/family's ability to manage care requirement post-discharge: GOOD Need identified at this time for referrals/resources post-discharge: UNCERTAIN Comment: CONT PLAN OF CARE /edwar/ AGUSTIN VINSON REGISTERED NURSE Signed: 01/09/2024 01:34 01/09/2024 ADDENDUM STATUS: COMPLETED The Nursing Care Plan has been reviewed. Progress on the Goals/Outcomes is as follows: Discharge Planning: Assessment of patient/family's ability to manage care requirement post-discharge: GOOD Need identified at this time for referrals/resources post-discharge: UNCERTAIN Comment: CONT PLAN OF CARE /edwar/ AGUSTIN VINSON REGISTERED NURSE Signed: 01/09/2024 01:42 01/10/2024 ADDENDUM STATUS: COMPLETED The Nursing Care Plan has been reviewed. Progress on the Goals/Outcomes is as follows: Discharge Planning: Assessment of patient/family's ability to manage care requirement post-discharge: GOOD Need identified at this time for referrals/resources post-discharge: UNCERTAIN Comment: CONT PLAN OF CARE /edwar/ AGUSTIN VINSON REGISTERED NURSE Signed: 01/10/2024 00:38 01/11/2024 ADDENDUM STATUS: COMPLETED The Nursing Care Plan has been reviewed. Progress on the Goals/Outcomes is as follows: Pt remains free from injury/falls. Bed low and locked. lighting adequate for safe ambulation. Call light in reach.Staff to assess pt for pain q4h and prn using the pain scale. Pt was educated about prn oxy. Pt voiced understanding. Discharge Planning: Assessment of patient/family's ability to manage care requirement post-discharge: FAIR Need identified at this time for referrals/resources post-discharge: UNCERTAIN Comment: /edwar/ MOISES MEDLEY BSN RN REGISTERED NURSE Signed: 01/11/2024 00:25 JUAN FRANCISCO RYAN [facility] Jan 07, 2024 11:29 PM ADMINISTRATIVE NOTE: LOCAL TITLE: ADMINISTRATIVE ST STANDARD TITLE: ADMINISTRATIVE NOTE DATE OF NOTE: JAN 07, 2024@23:29 ENTRY DATE: JAN 07, 2024@23:34:05 AUTHOR: MARIETTA GIVENS EXP COSIGNER: URGENCY: STATUS: COMPLETED Bailey Karely Sommer from Emergency Dept. has arrived and admitted to [address] [place] [address] notified Iraj Contreras and nurse in charge made aware. /patrice GIVENS [employer] AGRICULTURAL SERVICES DIRECTOR Signed: 01/07/2024 23:35 Receipt Acknowledged By: * AWAITING SIGNATURE * COLLETTE AZAR I 01/14/2024 08:44 /edwar/ DONI LEMUS SUPERVISORY AGRICULTURAL SERVICES DIRECTOR * AWAITING SIGNATURE * IRAJ GRIFFIN KHRIS [facility]
--- OUTSIDE RECORDS SUMMARY | 2024-12-05 00:21 | XMS_ITS | Encounter Summary ---
Author Name [facility] [place] Address [address] [place] [address] Care Team Providers Care Ux Designer Name Role Phone ERIKA DEE Primary Care [...] PART A Jul 12, 2019 PART A [id number] [phone] PRASANNA KATZ PATIENT MEDICARE (WNR) MEDICARE (M) PART A Jul 12, 2019 PART A [id number] [phone] PRASANNA KATZ PATIENT Selected Encounter This section includes the information on record at [place] for the Encounter. Date/Time Encounter Type Encounter Description Reason Provider Source Jan 09, 2024 08:53 AM HEMODIALYSIS MACHINE ASSISTED HEMODIALYSIS ICD-10-CM N18.6 End stage renal disease ISSA ABRAMS Encounter Template Text not used by [facility] Assessments - Encounter Diagnoses This section includes the primary and secondary diagnoses documented for the Encounter. 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 This section includes future appointments and future orders which are active, pending or scheduled. Future Appointments This section includes appointments that were scheduled to occur 6 months from the date of the Encounter, up to a maximum of 20 appointments. The data comes from all [place] treatment facilities. Appointment Date/Time Appointment Type Appointme nt Facility Name Jan 12, 2024 10:30 AM AMBULATORY - MEDICINE [facility] Jan 21, 2024 12:30 PM AMBULATORY - MEDICINE [facility] Jan 23, 2024 12:30 PM AMBULATORY - MEDICINE [facility] Jan 25, 2024 02:30 PM AMBULATORY - MEDICINE [facility] Jan 26, 2024 12:30 PM AMBULATORY - MEDICINE [facility] Jan 28, 2024 12:30 PM AMBULATORY - MEDICINE [facility] Feb 02, 2024 12:30 PM AMBULATORY - MEDICINE [facility] Feb 04, 2024 12:15 PM AMBULATORY - MEDICINE [facility] Feb 06, 2024 12:30 PM AMBULATORY - MEDICINE [facility] Feb 09, 2024 12:30 PM AMBULATORY - MEDICINE [facility] February 11, 2024 12:30 PM AMBULATORY - MEDICINE [facility] February 13, 2024 12:30 PM AMBULATORY - MEDICINE [facility] February 15, 2024 08:00 AM AMBULATORY - NONE [facility] February 15, 2024 08:30 AM AMBULATORY - MEDICINE [facility] Apr 05, 2024 09:30 AM AMBULATORY - MEDICINE [facility] Apr 27, 2024 07:30 AM AMBULATORY - SURGERY [facility] May 02, 2024 08:00 AM AMBULATORY - NONE [facility] May 02, 2024 08:30 AM AMBULATORY - MEDICINE [facility] May 16, 2024 02:00 PM AMBULATORY - MEDICINE [facility] Lab Results: +/- 30 days of the encounter This section includes the Chemistry and Hematology Lab Results on record with [place] for the patient. Radiology Reports and Pathology Reports are provided separately, in subsequent sections. Lab Results This section contains the Chemistry/Hematology Results that were resulted 30 days before or 30 daysafter the date of the Encounter. Date/Time Source Result Type Result - Unit Interpretation Reference Range Comment Feb 04, 2024 05:00 PM [facility] URR-POST PANEL (STL) Specimen Type: PLASMA No comment entered. Ordering Provider: KYLER PURCELL Report Released Date/Time: Feb 04, 2024 01:42 PM Reporting Lab: [address] [address] Performing Lab: [address] [address] BUN-POST DIALYSIS 16.2 mg/dL 9.0-25.0 URR (STL) 70.4 67.0-100.0 Feb 04, 2024 12:45 PM [facility] RENAL PANEL Specimen Type: PLASMA Comment: No hemolysis noted. Ordering Provider: KYLER PURCELL Report Released Date/Time: Feb 04, 2024 01:42 PM Reporting Lab: [address] [address] Performing Lab: [address] [address] CREATININE 6.97 mg/dL H 0.7-1.3 UREA NITROGEN 54.7 mg/dL H 9.0-25.0 GLUCOSE 134 mg/dL H 72-99 SODIUM 142 meq/L 136-145 POTASSIUM 4.0 meq/L 3.5-5 CHLORIDE 105 meq/L 98-107 CARBON DIOXIDE 24 meq/L 22-31 CALCIUM 9.7 mg/dL 8.4-10.4 PHOSPHOROUS 4.8 mg/dL H 2.3-4.7 ALBUMIN 3.9 g/dL 3.4-5 EGFR (CKD-EPI 2020) 7.9 LL >60 Feb 02, 2024 04:30 PM [facility] URR-POST PANEL (STL) Specimen Type: PLASMA No comment entered. Ordering Provider: KYLER PURCELL Report Released Date/Time: Feb 02, 2024 03:39 PM Reporting Lab: [address] [address] Performing Lab: [address] [address] BUN-POST DIALYSIS 22.9 mg/dL 9.0-25.0 URR (STL) 60.9 L 67.0-100.0 Feb 02, 2024 11:50 AM [facility] RENAL PANEL Specimen Type: PLASMA Comment: No hemolysis noted. Ordering Provider: KYLER PURCELL Report Released Date/Time: Feb 02, 2024 07:35 AM Reporting Lab: [address] [address] Performing Lab: [address] [address] CREATININE 8.34 mg/dL H 0.7-1.3 UREA NITROGEN 58.6 mg/dL H 9.0-25.0 GLUCOSE 169 mg/dL H 72-99 SODIUM 142 meq/L 136-145 POTASSIUM 4.6 meq/L 3.5-5 CHLORIDE 111 meq/L H 98-107 CARBON DIOXIDE 20 meq/L L 22-31 CALCIUM 9.2 mg/dL 8.4-10.4 PHOSPHOROUS 3.6 mg/dL 2.3-4.7 ALBUMIN 3.7 g/dL 3.4-5 EGFR (CKD-EPI 2020) 6.4 LL >60 Feb 01, 2024 11:00 PM [facility] 24H UR CHEM PANEL (STL) Specimen Type: 24-HOUR URINE No comment entered. Ordering Provider: KYLER PURCELL Report Released Date/Time: Jan 28, 2024 04:55 PM Reporting Lab: [address] [address] Performing Lab: [address] [address] VOLUME 3289 mL SODIUM 24-HOUR URINE 226.941 H 40-220 POTASSIUM 24-HOUR URINE 35.8501 25-125 CHLORIDE 24-HOUR URINE 171.028 110-250 PROTEIN 24-HOUR URINE 1986.556 H 0-299.9 CREATININE 24-HOUR URINE 2078.930 127-8450 Jan 28, 2024 05:29 PM [facility] CBC Specimen Type: BLOOD No comment entered. Ordering Provider: KYLER PURCELL Report Released Date/Time: Jan 28, 2024 05:07 PM Reporting Lab: [address] [address] Performing Lab: [address] [address] WBC 8.9 10*3/uL 3.6-11.2 RBC 2.96 10*6/uL [...] 10*3/uL 0.00-0.20 Jan 26, 2024 01:00 PM [facility] FERRITIN Specimen Type: SERUM No comment entered. Ordering Provider: KYLER PURCELL Report Released Date/Time: Jan 21, 2024 03:14 PM Reporting Lab: [address] [address] Performing Lab: [address] [address] FERRITIN 118.78 ng/mL 22-275 Jan 26, 2024 01:00 PM [facility] PTH, INTACT (STL) Specimen Type: SERUM No comment entered. Ordering Provider: KYLER PURCELL Report Released Date/Time: Jan 21, 2024 03:14 PM Reporting Lab: [address] [address] Performing Lab: [address] [address] PTH, INTACT (STL) 141.40 pg/mL H 8.7-77.7 Jan 26, 2024 01:00 PM [facility] RENAL PANEL Specimen Type: PLASMA Comment: No hemolysis noted. Ordering Provider: KYLER PURCELL Report Released Date/Time: Jan 21, 2024 03:14 PM Reporting Lab: [address] [address] Performing Lab: [address] [address] CREATININE 8.25 mg/dL H 0.7-1.3 UREA NITROGEN 63.1 mg/dL H 9.0-25.0 GLUCOSE 157 mg/dL H 72-99 SODIUM 137 meq/L 136-145 POTASSIUM 4.2 meq/L 3.5-5 CHLORIDE 100 meq/L 98-107 CARBON DIOXIDE 26 meq/L 22-31 CALCIUM 9.6 mg/dL 8.4-10.4 PHOSPHOROUS 4.9 mg/dL H 2.3-4.7 ALBUMIN 3.7 g/dL 3.4-5 EGFR (CKD-EPI 2020) 6.5 LL >60 Jan 26, 2024 01:00 PM [facility] IRON/TIBC PROFILE Specimen Type: SERUM No comment entered. Ordering Provider: KYLER PURCELL Report Released Date/Time: Jan 21, 2024 03:14 PM Reporting Lab: [address] [address] Performing Lab: [address] [address] TIBC 225 ug/dL L 250-450 TRANSFERRIN 180 mg/dL 163-344 IRON SATURATION 23 20-50 IRON 52 ug/dL L 65-175 Jan 26, 2024 01:00 PM [facility] CBC Specimen Type: BLOOD No comment entered. Ordering Provider: KYLER PURCELL Report Released Date/Time: Jan 21, 2024 03:14 PM Reporting Lab: [address] [address] Performing Lab: [address] [address] WBC 7.8 10*3/uL 3.6-11.2 RBC 2.95 10*6/uL [...] 10*3/uL 0.00-0.20 Jan 21, 2024 12:55 PM [facility] PT/INR NEW (STL-KAMLESH) Specimen Type: PLASMA No comment entered. Ordering Provider: KYLER PURCELL Report Released Date/Time: Jan 21, 2024 12:43 PM Reporting Lab: [address] [address] Performing Lab: [address] [address] PROTIME 15.9 s H 9.4-12.5 INR VALUE 1.4 {INR} Jan 21, 2024 12:55 PM [facility] RENAL PANEL Specimen Type: PLASMA Comment: No hemolysis noted. Ordering Provider: KYLER PURCELL Report Released Date/Time: Jan 21, 2024 12:41 PM Reporting Lab: [address] [address] Performing Lab: [address] [address] CREATININE 8.11 mg/dL H 0.7-1.3 UREA NITROGEN 82.6 mg/dL H 9.0-25.0 GLUCOSE 114 mg/dL H 72-99 SODIUM 139 meq/L 136-145 POTASSIUM 5.1 meq/L H 3.5-5 CHLORIDE 109 meq/L H 98-107 CARBON DIOXIDE 19 meq/L L 22-31 CALCIUM 9.3 mg/dL 8.4-10.4 PHOSPHOROUS 4.1 mg/dL 2.3-4.7 ALBUMIN 3.8 g/dL 3.4-5 EGFR (CKD-EPI 2020) 6.6 LL >60 Jan 14, 2024 11:55 AM [facility] RENAL PANEL Specimen Type: PLASMA Comment: No hemolysis noted. Ordering Provider: KYLER PURCELL Report Released Date/Time: Jan 13, 2024 07:58 AM Reporting Lab: [address] [address] Performing Lab: [address] [address] CREATININE 8.05 mg/dL H 0.7-1.3 UREA NITROGEN 70.7 mg/dL H 9.0-25.0 GLUCOSE 155 mg/dL H 72-99 SODIUM 140 meq/L 136-145 POTASSIUM 5.1 meq/L H 3.5-5 CHLORIDE 107 meq/L 98-107 CARBON DIOXIDE 21 meq/L L 22-31 CALCIUM 9.6 mg/dL 8.4-10.4 PHOSPHOROUS 4.8 mg/dL H 2.3-4.7 ALBUMIN 4.1 g/dL 3.4-5 EGFR (CKD-EPI 2020) 6.7 LL >60 Jan 11, 2024 11:36 AM [facility] GLUCOSE,BLOOD-poct (STL) Specimen Type: BLOOD Comment: Test Performed by: [id number] Meter #: [id number] Ordering Provider: LINOMED Report Released Date/Time: Jan 11, 2024 11:50 AM Reporting Lab: [address] [address] Performing Lab: [address] [address] GLUCOSE,BLOOD- poct (STL) 106 mg/dL H 72-Jan 11, 2024 11:07 AM [facility] GLUCOSE,BLOOD-poct (STL) Specimen Type: BLOOD Comment: Test Performed by: [id number] Meter #: [id number] Ordering Provider: LIDIA HUYNH Report Released Date/Time: Jan 11, 2024 11:18 AM Reporting Lab: [address] [address] Performing Lab: [address] [address] GLUCOSE,BLOOD- poct (STL) 109 mg/dL H 72-Jan 11, 2024 05:12 AM [facility] GLUCOSE,BLOOD-poct (STL) Specimen Type: BLOOD Comment: Test Performed by: [id number] Meter #: [id number] Ordering Provider: LINO,MED Report Released Date/Time: Jan 11, 2024 05:25 AM Reporting Lab: [address] [address] Performing Lab: [address] [address] GLUCOSE,BLOOD- poct (STL) 88 mg/dL 72-Jan 10, 2024 08:19 PM [facility] GLUCOSE,BLOOD-poct (STL) Specimen Type: BLOOD Comment: Test Performed by: [id number] Meter #: [id number] Ordering Provider: LINOMED Report Released Date/Time: Jan 10, 2024 08:31 PM Reporting Lab: [place] [address] [facility] [address] Performing Lab: [address] [address] GLUCOSE,BLOOD- poct (STL) 153 mg/dL H -Jan 10, 2024 04:15 PM [facility] GLUCOSE,BLOOD-poct (STL) Specimen Type: BLOOD Comment: Test Performed by: [id number] Meter #: [id number] Ordering Provider: LINOMED Report Released Date/Time: Jan 10, 2024 05:05 PM Reporting Lab: [address] [address] Performing Lab: [address] [address] GLUCOSE,BLOOD- poct (STL) 84 mg/dL -Jan 10, 2024 11:31 AM [facility] GLUCOSE,BLOOD-poct (STL) Specimen Type: BLOOD Comment: Test Performed by: [id number] Meter #: [id number] Ordering Provider: LINOMED Report Released Date/Time: Jan 10, 2024 12:03 PM Reporting Lab: [address] [address] Performing Lab: [address] [address] GLUCOSE,BLOOD- poct (STL) 99 mg/dL 72-Jan 10, 2024 04:45 AM [facility] GLUCOSE,BLOOD-poct (STL) Specimen Type: BLOOD Comment: Test Performed by: [id number] Meter #: [id number] Ordering Provider: LIDIA HUYNH Report Released Date/Time: Jan 10, 2024 05:29 AM Reporting Lab: [address] [address] Performing Lab: [address] [address] GLUCOSE,BLOOD- poct (STL) 109 mg/dL H 72-Jan 09, 2024 08:08 PM [facility] GLUCOSE,BLOOD-poct (STL) Specimen Type: BLOOD Comment: Test Performed by: [id number] Meter #: [id number] Ordering Provider: LIDIA HUYNH Report Released Date/Time: Jan 09, 2024 08:28 PM Reporting Lab: [address] [address] Performing Lab: [place] [phone] GLUCOSE,BLOOD- poct (STL) 110 mg/dL H 72-Jan 09, 2024 04:19 PM [facility] GLUCOSE,BLOOD-poct (STL) Specimen Type: BLOOD Comment: Test Performed by: [id number] Meter #: [id number] Ordering Provider: LIDIA HUYNH Report Released Date/Time: Jan 09, 2024 04:34 PM Reporting Lab: [place] [address] [facility] [address] Performing Lab: [address] [address] GLUCOSE,BLOOD- poct (STL) 119 mg/dL H 72-Jan 09, 2024 02:30 PM [facility] MAGNESIUM Specimen Type: PLASMA Comment: No hemolysis noted. Ordering Provider: TATI ZAVALA Report Released Date/Time: Jan 09, 2024 07:51 AM Reporting Lab: [address] [address] Performing Lab: [place] [phone] MAGNESIUM 1.6 mg/dL 1.6-2.6 Jan 09, 2024 02:30 PM [facility] RENAL PANEL Specimen Type: PLASMA Comment: No hemolysis noted. Ordering Provider: TATI ZAVALA Report Released Date/Time: Jan 09, 2024 07:51 AM Reporting Lab: [address] [address] Performing Lab: [address] [address] CREATININE 5.13 mg/dL H 0.7-1.3 UREA NITROGEN 46.2 mg/dL H 9.0-25.0 GLUCOSE 177 mg/dL H 72-99 SODIUM 136 meq/L 136-145 POTASSIUM 4.0 meq/L 3.5-5 CHLORIDE 101 meq/L 98-107 CARBON DIOXIDE 23 meq/L 22-31 CALCIUM 8.6 mg/dL 8.4-10.4 PHOSPHOROUS 2.7 mg/dL 2.3-4.7 ALBUMIN 3.6 g/dL 3.4-5 EGFR (CKD-EPI 2020) 11.5 LL >60 Jan 09, 2024 12:27 PM [facility] GLUCOSE,BLOOD-poct (STL) Specimen Type: BLOOD Comment: Test Performed by: [id number] Meter #: [id number] Ordering Provider: LIDIA HUYNH Report Released Date/Time: Jan 09, 2024 12:38 PM Reporting Lab: [address] [address] Performing Lab: [address] [address] GLUCOSE,BLOOD- poct (STL) 98 mg/dL 72-99 Jan 09, 2024 07:15 AM [facility] GLUCOSE,BLOOD-poct (STL) Specimen Type: BLOOD Comment: Test Performed by: [id number] Meter #: [id number] Ordering Provider: LIDIA HUYNH Report Released Date/Time: Jan 09, 2024 07:58 AM Reporting Lab: [place] [phone] Performing Lab: [facility] [address] [facility] [address] GLUCOSE,BLOOD- poct (STL) 86 mg/dL 72-99 Jan 08, 2024 09:04 PM [facility] GLUCOSE,BLOOD-poct (STL) Specimen Type: BLOOD Comment: Test Performed by: [id number] Meter #: [id number] Ordering Provider: LIDIA HUYNH Report Released Date/Time: Jan 08, 2024 09:47 PM Reporting Lab: [place] [address] [facility] [address] Performing Lab: [address] [address] GLUCOSE,BLOOD- poct (STL) 90 mg/dL 72-99 Jan 08, 2024 09:01 PM [facility] HEP B CORE AB TOTAL. (STL) Specimen Type: SERUM No comment entered. Ordering Provider: EFREN TAYLOR Report Released Date/Time: Jan 08, 2024 02:35 PM Reporting Lab: [place] [address] [facility] [address] Performing Lab: [place] [address] [facility] [address] HEP B CORE AB TOTAL. (STL) Nonreactive Nonreactive Jan 08, 2024 09:01 PM [facility] HEPATITIS B SURFACE AB PNL Specimen Type: SERUM No comment entered. Ordering Provider: EFREN TAYLOR Report Released Date/Time: Jan 08, 2024 02:35 PM Reporting Lab: [place] [address] [facility] [address] Performing Lab: [address] [address] HEP B Surface Ab-HBsAB (STL) REACTIVE m[IU]/mL Nonreactive HEP Bs AB-QUANT (STL) 63.22 m[IU]/mL Jan 08, 2024 09:01 PM [facility] HEP HB S Ag ([place]RI[place]) (STL) Specimen Type: SERUM No comment entered. Ordering Provider: EFREN TAYLOR Report Released Date/Time: Jan 08, 2024 02:35 PM Reporting Lab: [address] [address] Performing Lab: [address] [address] HEP HB S Ag ([place]) (STL) Nonreactive Nonreactive Jan 08, 2024 04:47 PM [facility] GLUCOSE,BLOOD-poct (STL) Specimen Type: BLOOD Comment: Test Performed by: [id number] Meter #: [id number] Ordering Provider: LIDIA HUYNH Report Released Date/Time: Jan 08, 2024 05:09 PM Reporting Lab: [address] [address] Performing Lab: [address] [address] GLUCOSE,BLOOD- poct (STL) 95 mg/dL 72-99 Jan 08, 2024 11:26 AM [facility] GLUCOSE,BLOOD-poct (STL) Specimen Type: BLOOD Comment: Test Performed by: [id number] Meter #: [id number] Ordering Provider: LIDIA HUYNH Report Released Date/Time: Jan 08, 2024 11:37 AM Reporting Lab: [address] [address] Performing Lab: [address] [address] GLUCOSE,BLOOD- poct (STL) 105 mg/dL H 72-99 Jan 08, 2024 07:01 AM [facility] RENAL PANEL Specimen Type: PLASMA Comment: No hemolysis noted. Ordering Provider: LIZETTE GRIFFIN Report Released Date/Time: Jan 07, 2024 11:24 PM Reporting Lab: [place] [address] [facility] [address] Performing Lab: [address] [address] CREATININE 8.50 mg/dL H 0.7-1.3 UREA NITROGEN 88.2 mg/dL H 9.0-25.0 GLUCOSE 70 mg/dL L 72-99 SODIUM 139 meq/L 136-145 POTASSIUM 5.4 meq/L H 3.5-5 CHLORIDE 110 meq/L H 98-107 CARBON DIOXIDE 19 meq/L L 22-31 CALCIUM 9.4 mg/dL 8.4-10.4 PHOSPHOROUS 5.1 mg/dL H 2.3-4.7 ALBUMIN 3.8 g/dL 3.4-5 EGFR (CKD-EPI 2020) 6.3 LL >60 Jan 08, 2024 06:37 AM [facility] GLUCOSE,BLOOD-poct (STL) Specimen Type: BLOOD Comment: Test Performed by: [id number] Meter #: [id number] Ordering Provider: LIDIA HUYNH Report Released Date/Time: Jan 08, 2024 06:48 AM Reporting Lab: [address] [address] Performing Lab: [address] [address] GLUCOSE,BLOOD- poct (STL) 86 mg/dL 72-99 Jan 07, 2024 11:58 PM [facility] RENAL PANEL Specimen Type: PLASMA Comment: No hemolysis noted. Ordering Provider: LIZETTE GRIFFIN Report Released Date/Time: Jan 07, 2024 11:38 PM Reporting Lab: [address] [address] Performing Lab: [address] [address] CREATININE 8.68 mg/dL H 0.7-1.3 UREA NITROGEN 92.6 mg/dL H 9.0-25.0 GLUCOSE 143 mg/dL H 72-99 SODIUM 138 meq/L 136-145 POTASSIUM 5.0 meq/L 3.5-5 CHLORIDE 111 meq/L H 98-107 CARBON DIOXIDE 17 meq/L L 22-31 CALCIUM 8.8 mg/dL 8.4-10.4 PHOSPHOROUS 3.8 mg/dL 2.3-4.7 ALBUMIN 3.8 g/dL 3.4-5 EGFR (CKD-EPI 2020) 6.1 LL >60 Jan 07, 2024 11:36 PM [facility] GLUCOSE,BLOOD-poct (STL) Specimen Type: BLOOD Comment: Test Performed by: [id number] Meter #: [id number] Ordering Provider: LIDIA MOSCOSO Report Released Date/Time: Jan 07, 2024 11:47 PM Reporting Lab: [facility] [address] [facility] [address] Performing Lab: [facility] [address] [place] [address] GLUCOSE,BLOOD- poct (STL) 157 mg/dL H 72-99 Jan 07, 2024 11:30 PM [facility] MRSA SURVL NARES DNA Specimen Type: NARES [...] Jan 07, 2024 11:24 PM Reporting Lab: [address] [address] Performing Lab: [facility] [address] [place] [address] MRSA SURVL NARES DNA Negative Negative Jan 07, 2024 09:08 PM [facility] POTASSIUM Specimen Type: PLASMA Comment: No hemolysis noted. Ordering Provider: ANNA CALI Report Released Date/Time: Jan 07, 2024 08:38 PM Reporting Lab: [facility] [address] [facility] [address] Performing Lab: [facility] [address] [place] [phone] POTASSIUM 5.7 meq/L H 3.5-5 Jan 07, 2024 07:30 PM [facility] URINALYSIS (STL-PB) Specimen Type: URINE No comment entered. Ordering Provider: ANNA CALI Report Released Date/Time: Jan 07, 2024 05:18 PM Reporting Lab: [address] [address] Performing Lab: [address] [address] URINE COLOR Colorless Yellow U.BILIRUBIN Negative mg/dL [...] 1.015 1.005-1.029 Jan 07, 2024 05:30 PM [facility] BRAIN NATRIURETIC PEPTIDE Specimen Type: PLASMA No comment entered. Ordering Provider: GRACIELA MANN Report Released Date/Time: Jan 07, 2024 04:59 PM Reporting Lab: [address] [address] Performing Lab: [address] [address] BRAIN NATRIURETIC PEPTIDE 59.0 pg/mL 0-100 Jan 07, 2024 05:30 PM [facility] COVID-19 DIAGNOSTIC (FLU/RSV)(STL) Specimen Type: NASOPHARYNX [...] Jan 07, 2024 04:59 PM Reporting Lab: [place] [address] Performing Lab: [place] [address] INFLUENZA A Negative Negative INFLUENZA B Negative Negative COVID-19 (STL-PB) Not Detected Not Detected RSV (Cepheid) NEGATIVE Negative Jan 07, 2024 05:30 PM [facility] COMPREHENSIVE METABOLIC PANEL Specimen Type: PLASMA Comment: Aspartate Transaminase result may show positive bias due to hemolysis. K result canceled due to hemolysis. Specimen moderately hemolyzed. K cancelled due to moderate hemolysis. Called to : Phillip Cee RN at: [id number] on: 01/07/2024 by: [place] Ordering Provider: GRACIELA MANN Report Released Date/Time: Jan 07, 2024 04:59 PM Reporting Lab: [place] [address] Performing Lab: [place] [address] CREATININE 8.88 mg/dL H 0.7-1.3 UREA NITROGEN [...] LL >60 Jan 07, 2024 05:30 PM [facility] CBC Specimen Type: BLOOD No comment entered. Ordering Provider: GRACIELA MANN Report Released Date/Time: Jan 07, 2024 04:59 PM Reporting Lab: [address] [address] Performing Lab: [address] [address] WBC 9.2 10*3/uL 3.6-11.2 RBC 3.81 10*6/uL [...] 10*3/uL 0.00-0.20 Dec 11, 2023 12:02 PM [facility] PTH, INTACT (STL) Specimen Type: SERUM No comment entered. Ordering Provider: KYLER PURCELL Report Released Date/Time: Dec 10, 2023 03:57 PM Reporting Lab: [address] [address] Performing Lab: [address] [address] PTH, INTACT (STL) 527.70 pg/mL H 8.7-77.7 Dec 11, 2023 12:02 PM [facility] CBC Specimen Type: BLOOD No comment entered. Ordering Provider: KYLER PURCELL Report Released Date/Time: Dec 10, 2023 03:57 PM Reporting Lab: [address] [address] Performing Lab: [address] [address] WBC 8.4 10*3/uL 3.6-11.2 RBC 3.84 10*6/uL [...] 10*3/uL 0.00-0.20 Dec 11, 2023 12:02 PM [facility] RENAL PANEL Specimen Type: PLASMA Comment: No hemolysis noted. Ordering Provider: KYLER PURCELL Report Released Date/Time: Dec 10, 2023 03:57 PM Reporting Lab: [address] [address] Performing Lab: [address] [address] CREATININE 8.13 mg/dL H 0.7-1.3 UREA NITROGEN 69.9 mg/dL H 9.0-25.0 GLUCOSE 163 mg/dL H 72-99 SODIUM 140 meq/L 136-145 POTASSIUM 5.4 meq/L H 3.5-5 CHLORIDE 106 meq/L 98-107 CARBON DIOXIDE 22 meq/L 22-31 CALCIUM 8.6 mg/dL 8.4-10.4 PHOSPHOROUS 3.7 mg/dL 2.3-4.7 ALBUMIN 3.9 g/dL 3.4-5 EGFR (CKD-EPI 2020) 6.6 LL >60 Dec 11, 2023 12:02 PM [facility] MAGNESIUM Specimen Type: PLASMA No comment entered. Ordering Provider: KYLER PURCELL Report Released Date/Time: Dec 11, 2023 10:17 AM Reporting Lab: [place] [id number] [facility] [address] Performing Lab: [address] [address] MAGNESIUM 1.3 mg/dL L 1.6-2.6 Vital Signs: All taken on the encounter date This section contains inpatient and outpatient Vital Signs collected on the date of the Encounter. Date/Time Temperature Pulse Blood Pressure Respiratory Rate SP02 Pain Height Weight Body Mass Index Source Jan 09, 2024 10:07 PM 4 [facility] Jan 09, 2024 09:40 PM [facility] Jan 09, 2024 09:02 PM 98.1 69 146/79 18 96 7 [facility] Jan 09, 2024 08:55 PM 7 [facility] Jan 09, 2024 05:22 PM 2 [facility] Social History: Smoking Status (Most current) and Tobacco Use (All prior to encounter date) This section includes the most current, and the historical, smoking and tobacco- related health factors from the [place] facility where the Encounter took place. Current Smoking Status This section includes the most current smoking, or tobacco-related health factor, from the [place] facility where the Encounter took place. Date/Time Current Smoking Status Comment Ester shearer Jun 21, 2023 01:14 PM ORYX ADMIT TOBACCO SCREEN NO [facility] Tobacco Use History This section includes a history of the smoking, or tobacco-related health factors, that were collected on or before the date of the Encounter. The data comes from the [place] facility where the Encounter took place. Date/Time Smoking Status/Tobacco Use Comment F acility Dec 12, 2022 04:00 PM ORYX ADMIT TOBACCO SCREEN NO [facility] Jun 25, 2022 03:24 PM VA-TOBACCO FORMER USER [facility] Jun 25, 2022 03:24 PM VA-TOBACCO QUIT 15 YRS OR MORE [facility] Dec 23, 2021 04:59 PM ORYX ADMIT TOBACCO SCREEN REFUSED [facility] May 24, 2020 11:27 PM ORYX ADMIT TOBACCO SCREEN NO [facility] Dec 12, 2019 10:24 AM VA-TOBACCO FORMER USER [facility] Dec 12, 2019 10:24 AM VA-TOBACCO QUIT 15 YRS OR MORE [facility] Aug 03, 2019 02:11 AM ORYX ADMIT TOBACCO SCREEN REFUSED [facility] Oct 12, 2018 01:14 AM QUIT TOBACCO >7 YEARS AGO [facility] Oct 11, 2018 03:33 PM ORYX ADMIT TOBACCO SCREEN NO [facility] Sep 07, 2018 09:13 PM ORYX ADMIT TOBACCO SCREEN NO [facility] Sep 07, 2018 07:52 PM QUIT TOBACCO >7 YEARS AGO [facility] Advance Directives: All historical and current Section Date Range: From patient's date of to the date document was created. This section includes ALL of a patient's completed or amended [place] Advance and Rescinded Directives. The entries below indicate that a directive exists for the patient, but an actual copy is not included with this document. The data comes from all [place] facilities. Date Advance Directives Provider Source Dec 17, [address] [facility] Feb 09, 2020 ADVANCE DIRECTIVE DISCUSSION MELY LUCIANO [facility] Feb 02, 2018 ADVANCE DIRECTIVE BEAU ALTAMIRANO [facility] Nov 29, 2006 ADVANCE DIRECTIVE MARELY CHACON [facility] Radiology Reports: +/- 30 days of [...] the Encounter. The data comes from all [place] treatment facilities. 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 images were received by the [place] National Teleradiology Program (NTP) for interpretation. FINDINGS: Bilateral peribronchial thickening. Patchy bilateral lower lobe lung opacities. Mildly tortuous aorta. No acute bony abnormalities. Impression: 1. Bilateral peribronchial thickening. 2. Patchy bilateral lung opacities likely represent atelectasis. 3. No pneumothorax. READING PHYSICIAN: Madhu Patton M.D. -[id number] 01/07/2024 19:10 PDT [facility] National Teleradiology Program [phone] (For Medical Practitioner Use Only) Attention Patients / Veterans: If you have questions or concerns about these test results, please contact your ordering provider or primary care team. Primary Interpreting Staff: RADIOLOGY,OUTSIDE SERVICE, Staff Physician / RADIOLOGY,OUTSIDE SERVICE [facility] Encounter Notes: All associated encounter notes This section contains the clinical notes associated to the Encounter. Date/Time Encounter Note(s) Provider Source Jan 09, 2024 12:28 PM DIALYSIS NOTE: LOCAL TITLE: HEMODIALYSIS RUNSHEET APPOINTMENT [facility] STANDARD TITLE: DIALYSIS NOTE DATE OF NOTE: JAN 09, 2024@12:28:21 ENTRY DATE: JAN 09, 2024@12:28:21 AUTHOR: ISSA ABRAMS EXP COSIGNER: URGENCY: routine STATUS: COMPLETED Dialysis [place] Appointment on Jan 09, 2024@08:53 Patient: NAGI KATZ Treatment Date: 09-Jan-2024 0853 Status: Discharged Latest Lab Result: URR: (, ) Kt/V: (, ) HgB: (, ) HCT: (, ) Diagnosis: End stage renal disease Patient Type: Inpatient Allergies: MORPHINE Resuscitate: [x] YES [ ] NO HD Summary Tables TREATMENT SUMMARY Treatment Start Time 09-Jan-2024 0853 Treatment End Time 09-Jan-2024 1120 Duration(ordered): 2:30 Duration(manually adjusted): 2:27 Weights (Kg) and Fluid Removed (L): Date Pre Weight Target Weight Post Weight Excess Weight IDW Goal Weight Target UF Achieved UF Current 96.90 103.00 96.90 -6.10 -6.30 103.00 0.00 0.39 08-Jan-2024 103.00 103.20 0.20 103.00 0.00 0.35 Blood Pressures (mmHg) & Fluid intake (mL) during treatment: Date Pre BP Post BP Lowest BP Highest BP IVF Given (mL) PO Fluid (mL) Current Sitting 153/75 Sitting 148/73 129/69 143/72 0.40 Sitting 154/75 -- -- -- -- 08-Jan-2024 Lying 139/79 Lying 126/69 129/74 139/73 -- -- -- -- Pulse and Temp: Date Pre Pulse Post Pulse Lowest Pulse Highest Pulse Pre Temp Post Temp Current Sitting 68 Sitting 63 62 84 98.0 98.2 Sitting 65 -- -- -- -- 08-Jan-2024 Lying 64 Lying 66 62 64 97.9 -- -- -- -- HD Times Date Prescribed Time Achieved Time Treatment Start Treatment End Current 2:30 2:27 0853 1120 08-Jan-2024 2:00 1:46 1345 1532 Day's Order Related Problem: End stage renal disease Access Type: Fistula Access Site: VIRGIE Backup Access: Backup Access Site: Needle Gauge: Freezing: [ ] YES [x] NO Machine Type: [place] Isolation: [ ] YES [x] NO Conventional HD Prosthesis(kg): Wheelchair(kg): Target Weight(kg): 103.00 Duration(h): 2:30 or Target UF(kg): 0.00 Frequency(x/wk): 1.00 Dialysate Temp(C): 37.00 Dialysis Type: [ ] daytime [ ] nocturnal Prescribed BVP(L): Dialysate Type: Saline Inf. (mL): EMPLOYMENT REPRESENTATIVE Blood Flow(ml/min): Hemodiafiltr. Volume(l): Hemodiafiltr. Fluid Type: Fractional Urea Distribution Space: 0.00 Prescribed KT/V: Process: Hemodialysis Procedure: Daily dialysis treatment Dialyzer: Nipro Elisio - 25H Max. reuses: Dialyzer 2: Tubing: K+(mmol/L): 2 Ca+(mmol/L): 2.5 Glucose(mmol/L): Mg+(mmol/L): Profiles: Initial values: Ramping: Dialysate Flow(ml/min): 400.00 Blood Flow(ml/min): 250 Bicarb(mmol/L): 35 Na+(mmol/L): 138 UFR(kg/hr : ml/kg/hr): BTM Function: Comments: Ok to use Tablo if necessary Anticoagulant: HEPARIN NA (PORK) 1000UNT Prebolus: 1000.00 Hourly: Cutoff time(min): Units: UNIT Post Art Instill: Post Glen Instill: Heparin Option: Instructions: Day's Hemodialysis Order Changes: Time Parameter Old Value New Value Comments Verified Verified Time Verified By = Access ======= Access Type: Fistula only PRE POST Bruit Present: [x] YES [ ] NO Bruit Present: [x] YES [ ] NO Thrill Present: [x] YES [ ] NO Thrill Present: [x] YES [ ] NO Condition Arterial: satisfactory Condition Arterial: satisfactory Condition Venous: satisfactory Condition Venous: satisfactory Good Flows: [x] YES [ ] NO Bruising Observed: [ ] YES [x] NO Local Anesthetic (min): [ ] YES [x] NO Hemostasis Time: Arterial Port (min): 7 Venous Port (min): 7 Cannulated Glen: 2 Staff: ESAU RENDON Cannulated Art: 1 Staff: ESAU RENDON General: Today's Assessment: = Predialysis === Extra Treatment: [ ] YES [x] NO Received From: Staff On: ASH VILLAGOMEZ Station: Chair 01 Machine #: C - 12 Resp Caregiver: Treat Caregiver: Arrival Time: 09-Jan-2024 0845 Mode: wheelchair By/With: transporter Vital Signs Temp(C): 98.00 Resp: 16 Time: 0828 Sitting BP: 153/75 Sitting Pulse: 68 Time: 0848 Sitting BP: 154/75 Sitting Pulse: 65 Weights Measure Wt(kg): 96.90 Target Weight(kg): 103.00 Prosthesis Wt(kg): or Target UF(kg): 0.00 Wheelchair Wt(kg): Weight Change(kg): -6.30 Current Wt(kg): 96.90 Excess Weight(kg): -6.10 Total Fluid Admin(kg): 0.40 Expected UF Vol(kg): -5.70 Target TMP(mm/Hg): UFR(kg/hr : ml/kg/hr): -2.44 : -23.7 Patient Condition: 09-Jan-2024 0909 ISSA ABRAMS Alert and oriented, Confirmed correct pt Nursing Assessment: 09-Jan-2024 0909 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 PRE-ASSESSMENT Time of assessment [ MENTAL STATUS: [X ]Alert & Oriented x 3 Comment:[ [ ]Alert & Oriented x 2 [ ]Person [ ]Place [ ]Time/Date [ ]Situation Comment:[ [ ]Alert & Oriented x 1 [ ]Person [ ]Place [ ]Time/Date [ ]Situation Comment:[ [ ]Confused Comment:[ [ ]Other Comment:[ RESPIRATORY STATUS: [X ]Clear bilaterally [ ]Clear right [ ]Clear left [ ]Crackles [ ]L upper lobe [ ]L lower lobe [ ]R upper lobe [ ]R middle lobe [ ]R lower lobe [ ]Bilateral [ ]Wheezing [ ]L upper lobe [ ]L lower lobe [ ]R upper lobe [ ]R middle lobe [ ]R lower lobe [ ]Bilateral [ ]Diminished [ ]L upper lobe [ ]L lower lobe [ ]R upper lobe [ ]R middle lobe [ ]R lower lobe [ ]Bilateral Comment:[ EDEMA: [ X]No edema noted [ ]Face [ ]Abdomen [ ]Bilateral UE [ ]Left UE [ ]Right UE [ ] Bilateral LE [ ]Left LE [ ]Right LE Comment:[ Comments:[Pt. has orders to remove 0 liters today, pt.''s AVF was cannulated with 17g needles x 2 with success while starting up the machine pt. voiced pain to access site stopped blood pump venous site was hard to touch, FILI recannulated venous site with success BFR 200 obtained, ice applied to access site, pt. voiced no more pain. 09-Jan-2024 0649 ISSA ABRAMS Received report from nurse Montalvo. Acknowledged On: By: Pain: Acuity: 0 Type: Location: Measures: Heparin: Pump Start At: By: Hourly Rate: Bolus: 1000.00 Same Syringe: [ ] YES [x] NO Total in Syringe: Verified By: Time: Communication: Preferred Language: Divehi Providier Proficient: [ ] YES [x] NO Local Sales Manager Desired: [ ] YES [x] NO Offered: [ ] YES [x] NO = Dialysis Log DIALYSIS LOG Start Date/Time: 09-Jan-2024 Table 1: Dialysis Data Time BP MAP Pulse BFR BVP AP EMPLOYMENT REPRESENTATIVE TMP UFR TFR HEP Hep Com 0712 0.0 0712 0.0 0712 0.0 0712 0.0 0718 0.0 0853 180 0.1 -80 130 10 0.16 : 1.6 0.00 0.0 0904 130/84 0.0 84 200 1.9 -110 190 20 0.16 : 1.6 0.02 0.0 0918 141/74 0.0 66 200 4.8 -130 170 20 0.16 : 1.6 0.07 0.0 0934 138/68 0.0 65 200 7.9 -140 170 15 0.16 : 1.6 0.12 0.0 0948 134/73 0.0 64 200 10.8 -150 190 20 0.16 : 1.6 0.16 0.0 1003 135/69 0.0 63 200 13.8 -150 190 20 0.16 : 1.6 0.18 0.0 1018 136/73 0.0 64 190 16.8 -160 200 20 0.16 : 1.6 0.23 0.0 1033 129/69 0.0 62 200 19.8 -150 200 20 0.16 : 1.6 0.28 0.0 1048 134/69 0.0 63 190 22.5 -170 180 25 0.16 : 1.6 0.30 0.0 1103 135/72 0.0 62 190 25.4 -160 180 30 0.16 : 1.6 0.35 0.0 1118 143/72 0.0 62 200 28.3 -150 190 -5 0.16 : 1.6 0.39 0.0 1120 0 28.6 40 30 0 0.00 : 0.0 0.39 0.0 Table 2: Dialysate Bath Time DFR ADV Temp K Ca Na HC03 0712 0712 0712 0712 0718 0853 400.00 36.90 2.00 2.50 0.00 0.00 0904 400.00 36.90 2.00 2.50 0.00 0.00 0918 400.00 36.80 2.00 2.50 0.00 0.00 0934 400.00 37.00 2.00 2.50 0.00 0.00 0948 400.00 36.90 2.00 2.50 0.00 0.00 1003 400.00 37.10 2.00 2.50 0.00 0.00 1018 400.00 37.00 2.00 2.50 0.00 0.00 1033 400.00 36.90 2.00 2.50 0.00 0.00 1048 400.00 36.90 2.00 2.50 0.00 0.00 1103 400.00 37.00 2.00 2.50 0.00 0.00 1118 400.00 37.00 2.00 2.50 0.00 0.00 1120 400.00 36.80 2.00 2.50 0.00 0.00 Table 3: Patient Assessment Acknowledge Time Author Access Visible Patient Status 09-Jan-2024 HIBBLER,AGUSTIN T, 99NP [ ] YES [x] NO 09-Jan-2024 HIBBLER,AGUSTIN T, 99NP [ ] YES [x] NO 09-Jan-2024 HIBBLER,AGUSTIN T, 99NP [ ] YES [x] NO 09-Jan-2024 0712 HIBBLER,AGUSTIN T, 99NP [ ] YES [x] NO 09-Jan-2024 0718 HIBBLER,AGUSTIN T, 99NP [ ] YES [x] NO 09-Jan-2024 0903 ISSA ABRAMS [x] YES [ ] NO Tx started 09-Jan-2024 0912 ISSA ABRAMS [x] YES [ ] NO Pt. reading Bible lines intact 09-Jan-2024 0933 ISSA ABRAMS [x] YES [ ] NO Pt. doing well lines intact [x] YES [ ] NO Pt. doing well lines intact [x] YES [ ] NO Pt. stable lines intact 09-Jan-2024 1008 ISSA ABRAMS [x] YES [ ] NO Pt. stable lines intact 09-Jan-2024 1022 ISSA ABRAMS [x] YES [ ] NO Pt. doing well lines intact [x] YES [ ] NO Pt. doing well lines intact 09-Jan-2024 1050 ISSA ABRAMS [x] YES [ ] NO Pt. alert to name stable lines intact 09-Jan-2024 1105 ISSA ABRAMS [x] YES [ ] NO Pt. stable lines intact [x] YES [ ] NO Pt. doing well lines intact 09-Jan-2024 1217 ISSA ABRAMS [x] YES [ ] NO Tx ended without any issues. = Medication Log Medication Log Start Date/Time: 09-Jan-2024 Medication: Time: 711 Nurse: AGUSTIN VINSON 99NP 2nd digital technician: Medication/Blood: SODIUM BICARBONATE 650MG TAB Dosage/Units: 1300.00 MG Route: ORAL Unused Amount: 0.00 IV Flush(mL): Admin Comments: [id number] 1\E^E\passing meds 8147\E^E\IANR\E^E\D YIFAN\E^E\[id number] 0\E^E\Date Entered The administered dosage as expressed in the message received from the hospital system ('MG') was converted into a dosage consistent with the units in the [facility] formulary. Reason Not Given: Medication: Time: 711 Nurse: AGUSTIN VINSON 99NP 2nd digital technician: Medication/Blood: CARVEDILOL 25MG TAB Dosage/Units: 1.00 MG Route: ORAL Unused Amount: 24.00 IV Flush(mL): Admin Comments: [id number] Reason Not Given: Medication: Time: 711 Nurse: HIBBLER,AGUSTIN T, 99NP 2nd digital technician: Medication/Blood: TAMSULOSIN HCL 0.4MG CAP Dosage/Units: 1.00 MG Route: ORAL Unused Amount: -0.60 IV Flush(mL): Admin Comments: [id number] Reason Not Given: Medication: Time: 711 Nurse: AGUSTIN VINSON 99NP 2nd digital technician: Medication/Blood: OMEPRAZOLE 20MG EC CAP Dosage/Units: 20.00 MG Route: ORAL Unused Amount: 0.00 IV Flush(mL): Admin Comments: [id number] The administered dosage as expressed in the message received from the hospital system ('MG') was converted into a dosage consistent with the units in the [employer] formulary. Reason Not Given: Medication: Time: 717 Nurse: AGUSTIN VINSON 99NP 2nd digital technician: Medication/Blood: INSULIN,ASPART,HUMAN 100 UNIT/ML INJ Dosage/Units: Not given Route: SUBCUTANEOUS Unused Amount: 1.00 IV Flush(mL): Admin Comments: Reason Not Given: [id number] 1\E^E\Held: Blood Sugar out of range 8147\E^E\\E^E\ AGUSTIN\E^E\[id number] 00\E^E\ Entered = Events Log === Time Resolved Complication Comments Author Brigitte Spent Roscoe Notified [place] Nurse = Postdialysis == Clotted: [ ] YES [x] NO Infiltrated: [ ] YES [x] NO Extra Treatment: [ ] YES [x] NO Procedure: Daily dialysis treatment Stop Date/Time: 09-Jan-2024 1120 Dialysis Time(hrs): 2:27 Staff Off: ASH VILLAGOMEZ Effective Time(hrs): Resp Caregiver: Departure Time: 1207 By/With: transporter Mode: wheelchair Visit Disposition: Patient Sent To: Pain Acuity: 0 Type: Location Measures Measures Measures Weights Measured Wt.(kg): 96.90 Prosthesis Wt.(kg): Wheelchair Wt(kg): Post Dialysis Wt(kg): 96.90 Target Weight(kg): 103.00 Target UF(kg): 0.00 Removed Wt(kg): 0.00 Fluid Removed(kg): 0.39 Effective UFR (kg/hr:ml/kg/hr): 0.00 : 0.0 Dialysate Used(L): 58.80 Patient Status Temp(C): 98.20 Resp: 16 Sitting BP: 148/73 Sitting Pulse: 63 BP: Pulse: Lowest BP: 129/69 BV Processed: Heparin Total Ordered: 1000.00 Total Infused: 1000.00 Left in Syringe: 0.00 Verified At: By: 2nd digital technician: By: Fluid Intake Total Ingested(kg): Total HDF Administered(kg): Avg HDF(kg/hr): Hematocrit(%): Hemoglobin(mg/dL): KT/V: Relative Blood Volume(%): Final Effective Ionic Dialysance: Dialyzer Post Dial Rating: Streaked-few f Acid Disinfect: 1208 Chemical Cycle Start At: Heat Cycle Start At: Patient Condition: 09-Jan-2024 1217 ISSA ABRAMS Alert & oriented, Discharged via wheelchair, Treatment tolerated without complication Nursing Assessment: 09-Jan-2024 1216 ISSA ABRAMS Pt. remained stable for 2nd dialysis tx, no issues with BP, N/V, dizziness. 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 POST-ASSESSMENT Time of assessment [ MENTAL STATUS: [X ]Alert & Oriented x 3 Comment: [ ]Alert & Oriented x 2 [ ]Person [ ]Place [ ]Time/Date [ ]Situation Comment: [ ]Alert & Oriented x 1 [ ]Person [ ]Place [ ]Time/Date [ ]Situation Comment:[ [ ]Confused Comment:[ [ ]Other Comment:[ RESPIRATORY STATUS: [X ]Clear bilaterally [ ]Clear right [ ]Clear left [ ]Crackles [ ]L upper lobe [ ]L lower lobe [ ]R upper lobe [ ]R middle lobe [ ]R lower lobe [ ]Bilateral [ ]Wheezing [ ]L upper lobe [ ]L lower lobe [ ]R upper lobe [ ]R middle lobe [ ]R lower lobe [ ]Bilateral [ ]Diminished [ ]L upper lobe [ ]L lower lobe [ ]R upper lobe [ ]R middle lobe [ ]R lower lobe [ ]Bilateral Comment:[ EDEMA: X ]No edema noted [ ]Face [ ]Abdomen [ ]Bilateral UE [ ]Left UE [ ]Right UE [ ] Bilateral LE [ ]Left LE [ ]Right LE Comment:[ Comments:[Pt. left clinic in stable condition via wheelchair and transporter, report called to nurse Maye. Acknowledged On: Acknowledged By: = Preparation === Station: Chair 01 Machine #: C - 12 MACHINE DISINFECTION Acid Cycle: 09-Jan-2024 Heat Cycle: 21-Dec-2023 Chemical Cycle: 08-Jan-2024 1244 Disinfect Clear Status: MACHINE CHECKS Original All Steps Completed: [x] YES [ ] NO Alarm Test Complete: 09-Jan-2024 Alarms Audible: 09-Jan-2024 Checked prescription: 09-Jan-2024 Checked conductivity: 09-Jan-2024 Double checked 09-Jan-2024 Patient identified: 09-Jan-2024 prescription: Time Out: 09-Jan-2024 Conductivity: 13.80 Calcium: 2.5 Dialysate Temperature: 37.00 Potassium: 2 Bicarb: 35 Reading confirmation: 09-Jan-2024 Conductivity: 13.80 pH: 7.00 Replacement All Steps Completed: [x] YES [ ] NO Alarm Test Complete: 09-Jan-2024 Alarms Audible: 09-Jan-2024 Checked prescription: 09-Jan-2024 Checked conductivity: 09-Jan-2024 Double checked 09-Jan-2024 Patient identified: 09-Jan-2024 prescription: Time Out: 09-Jan-2024 Conductivity: 13.80 K+: 2 pH: 7.00 Ca+: 2.5 Dialysate Temp (C): 37.00 = Material ====== MATERIAL / DIALYZER REUSE Start Machine (#): C - 12 Time Failed: Replacement Machine: Replaced time: Reason: Dialyzer Label: Nipro Elisio - 25H Reprocessed #: Dialyzer Lot: Pre-dialysis Dialyzer Rating: Check 1: 09-Jan-2024 ISSA ABRAMS Check 2: 09-Jan-2024 ASH VILLAGOMEZ Location: [address] [place] [address]/ Issa Abrams RN REGISTERED NURSE Signed: 01/09/2024 12:28 ISSA ABRAMS [facility]
--- OUTSIDE RECORDS SUMMARY | 2024-12-05 00:21 | XMS_ITS | Encounter Summary ---
Author Name [facility] [place] Organization [facility] [place] [place] Address [address] [place] [address] Care Team Providers Care Administrative Processor Name Role Phone ERIKA DEE Primary Care [...] PART A Jul 12, 2019 PART A [id number] PRASANNA KATZ PATIENT MEDICARE (WNR) MEDICARE (M) PART A Jul 12, 2019 PART A [id number] PRASANNA KATZ PATIENT Selected Encounter This section includes the information on record at [place] for the Encounter. Date/Time Encounter Type Encounter Description Reason Provider Source Dec 18, 2023 11:00 AM OFFICE O/P EST MOD 30 MIN OPTOMETRY ICD-10-CM E11.9 Type 2 diabetes mellitus without complications CORWIN SORIA THI IHJono Encounter Template Text not used by [place] Assessments - Encounter Diagnoses This section includes the primary and secondary diagnoses documented for the Encounter. Date/Time Primary/Secondary Diagnosis Diagnosis Name Provider Source Dec 18, 2023 04:18 PM PRIMARY Type 2 diabetes mellitus without complications WILFRED SORIA [facility] Dec 18, 2023 04:18 PM SECONDARY Age-related nuclear cataract, bilateral [facility] Dec 18, 2023 04:18 PM SECONDARY Dry eye syndrome of bilateral lacrimal glands [facility] Dec 18, 2023 04:18 PM SECONDARY [facility] Plan of Treatment: Future Appointments (+ 6 months) and Future Tests (+/- 45 days) The Plan of Treatment section includes future care activities for the [facility] [place] [facility] This section includes future appointments and future orders which are active, pending or scheduled. Future Appointments This section includes appointments that were scheduled to occur 6 months from the date of the Encounter, up to a maximum of 20 appointments. The data comes from all [place] treatment facilities. Appointment Date/Time Appointment Type Appointme nt Facility Name Jan 07, 2024 04:48 PM AMBULATORY - MEDICINE [facility] Jan 12, 2024 10:30 AM [facility]INE [facility] Jan 21, 2024 12:30 PM [facility]BULATORY - MEDICINE [facility] Jan 23, 2024 12:30 PM AMBULATORY - MEDICINE [facility] Jan 25, 2024 02:30 PM AM[facility]ULAT[facility] - [facility]ICINE [facility] Jan 26, 2024 12:30 PM [facility]BULATORY - MEDICINE [facility] Jan 28, 2024 12:30 PM [facility]BULATORY - MEDICINE [facility] Feb 02, 2024 12:30 PM [facility]BULATORY - MEDICINE [facility] Feb 04, 2024 12:15 PM [facility]BULATORY - MEDICINE [facility] Feb 06, 2024 12:30 PM [facility]BULATORY - MEDICINE [facility] Feb 09, 2024 12:30 PM [facility]BULATORY - MEDICINE [facility] February 11, 2024 12:30 PM [facility]BULATORY - MEDICINE [facility] February 13, 2024 12:30 PM [facility]BULATORY - MEDICINE [facility] February 15, 2024 08:00 AM AMBULATORY - NONE [facility] February 15, 2024 08:30 AM [facility]BULATORY - MEDICINE [facility] Apr 05, 2024 09:30 AM AMBULATORY - MEDICINE [facility] Apr 27, 2024 07:30 AM AMBULATORY - SURGERY [facility] May 02, 2024 08:00 AM AMBULATORY - NONE [facility] May 02, 2024 08:30 AM AMBULATORY - MEDICINE [facility] May 16, 2024 02:00 PM AM[facility]UL[facility] MEDICINE [facility] Lab Results: +/- 30 days of the encounter This section includes the Chemistry and Hematology Lab Results on record with [place] for the patient. Radiology Reports and Pathology Reports are provided separately, in subsequent sections. Lab Results This section contains the Chemistry/Hematology Results that were resulted 30 days before or 30 daysafter the date of the Encounter. Date/Time Source Result Type Result - Unit Interpretation Reference Range Comment Jan 14, 2024 11:55 AM [facility] RENAL PANEL Specimen Type: PLASMA Comment: No hemolysis noted. Ordering Provider: KYLER PURCELL Report Released Date/Time: Jan 13, 2024 07:58 AM Reporting Lab: [address] [address] Performing Lab: [address] [address] CREATININE 8.05 mg/dL H 0.7-1.3 UREA NITROGEN 70.7 mg/dL H 9.0-25.0 GLUCOSE 155 mg/dL H 72-99 SODIUM 140 meq/L 136-145 POTASSIUM 5.1 meq/L H 3.5-5 CHLORIDE 107 meq/L 98-107 CARBON DIOXIDE 21 meq/L L 22-31 CALCIUM 9.6 mg/dL 8.4-10.4 PHOSPHOROUS 4.8 mg/dL H 2.3-4.7 ALBUMIN 4.1 g/dL 3.4-5 EGFR (CKD-EPI 2020) 6.7 LL >60 Jan 11, 2024 11:36 AM [facility] GLUCOSE,BLOOD-poct (STL) Specimen Type: BLOOD Comment: Test Performed by: [id number] Meter #: [id number] Ordering Provider: LIDIA HUYNH Report Released Date/Time: Jan 11, 2024 11:50 AM Reporting Lab: [address] [address] Performing Lab: [address] [address] GLUCOSE,BLOOD- poct (STL) 106 mg/dL H -Jan 11, 2024 11:07 AM [facility] GLUCOSE,BLOOD-poct (STL) Specimen Type: BLOOD Comment: Test Performed by: [id number] Meter #: [id number] Ordering Provider: LINOMED Report Released Date/Time: Jan 11, 2024 11:18 AM Reporting Lab: [place] [address] [facility] [address] Performing Lab: [address] [address] GLUCOSE,BLOOD- poct (STL) 109 mg/dL H -Jan 11, 2024 05:12 AM [facility] GLUCOSE,BLOOD-poct (STL) Specimen Type: BLOOD Comment: Test Performed by: [id number] Meter #: [id number] Ordering Provider: LIDIA HUYNH Report Released Date/Time: Jan 11, 2024 05:25 AM Reporting Lab: [address] [address] Performing Lab: [address] [address] GLUCOSE,BLOOD- poct (STL) 88 mg/dL -Jan 10, 2024 08:19 PM [facility] GLUCOSE,BLOOD-poct (STL) Specimen Type: BLOOD Comment: Test Performed by: [id number] Meter #: [id number] Ordering Provider: LINO,MED Report Released Date/Time: Jan 10, 2024 08:31 PM Reporting Lab: [place] [address] [facility] [address] Performing Lab: [place] [address] [facility] [address] GLUCOSE,BLOOD- poct (STL) 153 mg/dL H 72-99 Jan 10, 2024 04:15 PM [facility] GLUCOSE,BLOOD-poct (STL) Specimen Type: BLOOD Comment: Test Performed by: [id number] Meter #: [id number] Ordering Provider: LIDIA HUYNH Report Released Date/Time: Jan 10, 2024 05:05 PM Reporting Lab: [address] [address] Performing Lab: [address] [address] GLUCOSE,BLOOD- poct (STL) 84 mg/dL 72-99 Jan 10, 2024 11:31 AM [facility] GLUCOSE,BLOOD-poct (STL) Specimen Type: BLOOD Comment: Test Performed by: [id number] Meter #: [id number] Ordering Provider: LIDIA HUYNH Report Released Date/Time: Jan 10, 2024 12:03 PM Reporting Lab: [place] [address] [facility] [address] Performing Lab: [place] [address] [facility] [address] GLUCOSE,BLOOD- poct (STL) 99 mg/dL 72-99 Jan 10, 2024 04:45 AM [facility] GLUCOSE,BLOOD-poct (STL) Specimen Type: BLOOD Comment: Test Performed by: [id number] Meter #: [id number] Ordering Provider: LIDIA HUYNH Report Released Date/Time: Jan 10, 2024 05:29 AM Reporting Lab: [place] [address] [facility] [address] Performing Lab: [place] [address] [facility] [address] GLUCOSE,BLOOD- poct (STL) 109 mg/dL H 72-99 Jan 09, 2024 08:08 PM [facility] GLUCOSE,BLOOD-poct (STL) Specimen Type: BLOOD Comment: Test Performed by: [id number] Meter #: [id number] Ordering Provider: LIDIA HUYNH Report Released Date/Time: Jan 09, 2024 08:28 PM Reporting Lab: [place] [address] [facility] [address] Performing Lab: [facility] [address] [facility] [address] GLUCOSE,BLOOD- poct (STL) 110 mg/dL H 72-Jan 09, 2024 04:19 PM [facility] GLUCOSE,BLOOD-poct (STL) Specimen Type: BLOOD Comment: Test Performed by: [id number] Meter #: [id number] Ordering Provider: LIDIA HUYNH Report Released Date/Time: Jan 09, 2024 04:34 PM Reporting Lab: [place] [address] [facility] [address] Performing Lab: [place] [address] [facility] [address] GLUCOSE,BLOOD- poct (STL) 119 mg/dL H 72-Jan 09, 2024 02:30 PM [facility] MAGNESIUM Specimen Type: PLASMA Comment: No hemolysis noted. Ordering Provider: TATI ZAVALA Report Released Date/Time: Jan 09, 2024 07:51 AM Reporting Lab: [facility] [address] [facility] [address] Performing Lab: [place] [address] [facility] [address] MAGNESIUM 1.6 mg/dL 1.6-2.6 Jan 09, 2024 02:30 PM [facility] RENAL PANEL Specimen Type: PLASMA Comment: No hemolysis noted. Ordering Provider: TATI ZAVALA Report Released Date/Time: Jan 09, 2024 07:51 AM Reporting Lab: [facility] [address] [address] Performing Lab: [address] [address] CREATININE 5.13 mg/dL H 0.7-1.3 UREA NITROGEN 46.2 mg/dL H 9.0-25.0 GLUCOSE 177 mg/dL H 72-99 SODIUM 136 meq/L 136-145 POTASSIUM 4.0 meq/L 3.5-5 CHLORIDE 101 meq/L 98-107 CARBON DIOXIDE 23 meq/L 22-31 CALCIUM 8.6 mg/dL 8.4-10.4 PHOSPHOROUS 2.7 mg/dL 2.3-4.7 ALBUMIN 3.6 g/dL 3.4-5 EGFR (CKD-EPI 2020) 11.5 LL >60 Jan 09, 2024 12:27 PM [facility] GLUCOSE,BLOOD-poct (STL) Specimen Type: BLOOD Comment: Test Performed by: [id number] Meter #: [id number] Ordering Provider: LIDIA HUYNH Report Released Date/Time: Jan 09, 2024 12:38 PM Reporting Lab: [address] [address] Performing Lab: [address] [address] GLUCOSE,BLOOD- poct (STL) 98 mg/dL 72-99 Jan 09, 2024 07:15 AM [facility] GLUCOSE,BLOOD-poct (STL) Specimen Type: BLOOD Comment: Test Performed by: [id number] Meter #: [id number] Ordering Provider: LIDIA HUYNH Report Released Date/Time: Jan 09, 2024 07:58 AM Reporting Lab: [address] [address] Performing Lab: [address] [address] GLUCOSE,BLOOD- poct (STL) 86 mg/dL 72-99 Jan 08, 2024 09:04 PM [facility] GLUCOSE,BLOOD-poct (STL) Specimen Type: BLOOD Comment: Test Performed by: [id number] Meter #: [id number] Ordering Provider: LIDIA HUYNH Report Released Date/Time: Jan 08, 2024 09:47 PM Reporting Lab: [address] [address] Performing Lab: [address] [address] GLUCOSE,BLOOD- poct (STL) 90 mg/dL 72-99 Jan 08, 2024 09:01 PM [facility] HEP HB S Ag (AUSRIA) (STL) Specimen Type: SERUM No comment entered. Ordering Provider: EFREN TAYLOR Report Released Date/Time: Jan 08, 2024 02:35 PM Reporting Lab: [address] [address] Performing Lab: [address] [address] HEP HB S Ag (AUSRIA) (STL) Nonreactive Nonreactive Jan 08, 2024 09:01 PM [facility] HEP B CORE AB TOTAL. (STL) Specimen Type: SERUM No comment entered. Ordering Provider: EFREN TAYLOR Report Released Date/Time: Jan 08, 2024 02:35 PM Reporting Lab: [address] [address] Performing Lab: [address] [address] HEP B CORE AB TOTAL. (STL) Nonreactive Nonreactive Jan 08, 2024 09:01 PM [facility] HEPATITIS B SURFACE AB PNL Specimen Type: SERUM No comment entered. Ordering Provider: EFREN TAYLOR Report Released Date/Time: Jan 08, 2024 02:35 PM Reporting Lab: [address] [address] Performing Lab: [address] [address] HEP B Surface Ab-HBsAB (STL) REACTIVE m[IU]/mL Nonreactive HEP Bs AB-QUANT (STL) 63.22 m[IU]/mL Jan 08, 2024 04:47 PM [facility] GLUCOSE,BLOOD-poct (STL) Specimen Type: BLOOD Comment: Test Performed by: [id number] Meter #: [id number] Ordering Provider: LIDIA HUYNH Report Released Date/Time: Jan 08, 2024 05:09 PM Reporting Lab: [address] [address] Performing Lab: [address] [address] GLUCOSE,BLOOD- poct (STL) 95 mg/dL 72-99 Jan 08, 2024 11:26 AM [facility] GLUCOSE,BLOOD-poct (STL) Specimen Type: BLOOD Comment: Test Performed by: [id number] Meter #: [id number] Ordering Provider: LIDIA HUYNH Report Released Date/Time: Jan 08, 2024 11:37 AM Reporting Lab: [address] [address] Performing Lab: [place] [address] [facility] [address] GLUCOSE,BLOOD- poct (STL) 105 mg/dL H 72-99 Jan 08, 2024 07:01 AM [facility] RENAL PANEL Specimen Type: PLASMA Comment: No hemolysis noted. Ordering Provider: LIZETTE GRIFFIN Report Released Date/Time: Jan 07, 2024 11:24 PM Reporting Lab: [place] [address] [facility] [address] Performing Lab: [address] [address] CREATININE 8.50 mg/dL H 0.7-1.3 UREA NITROGEN 88.2 mg/dL H 9.0-25.0 GLUCOSE 70 mg/dL L 72-99 SODIUM 139 meq/L 136-145 POTASSIUM 5.4 meq/L H 3.5-5 CHLORIDE 110 meq/L H 98-107 CARBON DIOXIDE 19 meq/L L 22-31 CALCIUM 9.4 mg/dL 8.4-10.4 PHOSPHOROUS 5.1 mg/dL H 2.3-4.7 ALBUMIN 3.8 g/dL 3.4-5 EGFR (CKD-EPI 2020) 6.3 LL >60 Jan 08, 2024 06:37 AM [facility] GLUCOSE,BLOOD-poct (STL) Specimen Type: BLOOD Comment: Test Performed by: [id number] Meter #: [id number] Ordering Provider: LIDIA HUYNH Report Released Date/Time: Jan 08, 2024 06:48 AM Reporting Lab: [address] [address] Performing Lab: [address] [address] GLUCOSE,BLOOD- poct (STL) 86 mg/dL 72-99 Jan 07, 2024 11:58 PM [facility] RENAL PANEL Specimen Type: PLASMA Comment: No hemolysis noted. Ordering Provider: LIZETTE GRIFFIN Report Released Date/Time: Jan 07, 2024 11:38 PM Reporting Lab: [place] [address] [facility] [address] Performing Lab: [address] [address] CREATININE 8.68 mg/dL H 0.7-1.3 UREA NITROGEN 92.6 mg/dL H 9.0-25.0 GLUCOSE 143 mg/dL H 72-99 SODIUM 138 meq/L 136-145 POTASSIUM 5.0 meq/L 3.5-5 CHLORIDE 111 meq/L H 98-107 CARBON DIOXIDE 17 meq/L L 22-31 CALCIUM 8.8 mg/dL 8.4-10.4 PHOSPHOROUS 3.8 mg/dL 2.3-4.7 ALBUMIN 3.8 g/dL 3.4-5 EGFR (CKD-EPI 2020) 6.1 LL >60 Jan 07, 2024 11:36 PM [facility] GLUCOSE,BLOOD-poct (STL) Specimen Type: BLOOD Comment: Test Performed by: [id number] Meter #: [id number] Ordering Provider: LIDIA MOSCOSO Report Released Date/Time: Jan 07, 2024 11:47 PM Reporting Lab: [facility] [address] [facility] [address] Performing Lab: [address] [address] GLUCOSE,BLOOD- poct (STL) 157 mg/dL H 72-99 Jan 07, 2024 11:30 PM [facility] MRSA SURVL NARES DNA Specimen Type: NARES [...] Jan 07, 2024 11:24 PM Reporting Lab: [address] [address] Performing Lab: [address] [address] MRSA SURVL NARES DNA Negative Negative Jan 07, 2024 09:08 PM [facility] POTASSIUM Specimen Type: PLASMA Comment: No hemolysis noted. Ordering Provider: ANNA CALI Report Released Date/Time: Jan 07, 2024 08:38 PM Reporting Lab: [place] [address] [facility] [address] Performing Lab: [address] [address] POTASSIUM 5.7 meq/L H 3.5-5 Jan 07, 2024 07:30 PM [facility] URINALYSIS (L-PB) Specimen Type: URINE No comment entered. Ordering Provider: ANNA CALI Report Released Date/Time: Jan 07, 2024 05:18 PM Reporting Lab: [address] [address] Performing Lab: [address] [address] URINE COLOR Colorless Yellow U.BILIRUBIN Negative mg/dL [...] 1.015 1.005-1.029 Jan 07, 2024 05:30 PM [facility] BRAIN NATRIURETIC PEPTIDE Specimen Type: PLASMA No comment entered. Ordering Provider: GRACIELA MANN Report Released Date/Time: Jan 07, 2024 04:59 PM Reporting Lab: [address] [address] Performing Lab: [address] [address] BRAIN NATRIURETIC PEPTIDE 59.0 pg/mL 0-100 Jan 07, 2024 05:30 PM [facility] COVID-19 DIAGNOSTIC (FLU/RSV)(STL) Specimen Type: NASOPHARYNX Comment: [...] Jan 07, 2024 04:59 PM Reporting Lab: [address] [address] Performing Lab: [address] [address] INFLUENZA A Negative Negative INFLUENZA B Negative Negative COVID-19 (STL-PB) Not Detected Not Detected RSV (Cepheid) NEGATIVE Negative Jan 07, 2024 05:30 PM [facility] COMPREHENSIVE METABOLIC PANEL Specimen Type: PLASMA Comment: Aspartate Transaminase result may show positive bias due to hemolysis. K result canceled due to hemolysis. Specimen moderately hemolyzed. K cancelled due to moderate hemolysis. Called to : Phillip Cee RN at: 1902 on: 01/07/2024 by: TENNILLE Ordering Provider: GRACIELA MANN Report Released Date/Time: Jan 07, 2024 04:59 PM Reporting Lab: [address] [address] Performing Lab: [address] [address] CREATININE 8.88 mg/dL H 0.7-1.3 UREA NITROGEN [...] LL >60 Jan 07, 2024 05:30 PM [facility] CBC Specimen Type: BLOOD No comment entered. Ordering Provider: GRACIELA MANN Report Released Date/Time: Jan 07, 2024 04:59 PM Reporting Lab: [address] [address] Performing Lab: [address] [address] WBC 9.2 10*3/uL 3.6-11.2 RBC 3.81 10*6/uL [...] 10*3/uL 0.00-0.20 Dec 11, 2023 12:02 PM [facility] PTH, INTACT (STL) Specimen Type: SERUM No comment entered. Ordering Provider: KYLER PURCELL Report Released Date/Time: Dec 10, 2023 03:57 PM Reporting Lab: [address] [address] Performing Lab: [address] [address] PTH, INTACT (STL) 527.70 pg/mL H 8.7-77.7 Dec 11, 2023 12:02 PM [facility] RENAL PANEL Specimen Type: PLASMA Comment: No hemolysis noted. Ordering Provider: KYLER PURCELL Report Released Date/Time: Dec 10, 2023 03:57 PM Reporting Lab: [address] [address] Performing Lab: [address] [address] CREATININE 8.13 mg/dL H 0.7-1.3 UREA NITROGEN 69.9 mg/dL H 9.0-25.0 GLUCOSE 163 mg/dL H 72-99 SODIUM 140 meq/L 136-145 POTASSIUM 5.4 meq/L H 3.5-5 CHLORIDE 106 meq/L 98-107 CARBON DIOXIDE 22 meq/L 22-31 CALCIUM 8.6 mg/dL 8.4-10.4 PHOSPHOROUS 3.7 mg/dL 2.3-4.7 ALBUMIN 3.9 g/dL 3.4-5 EGFR (CKD-EPI 2020) 6.6 LL >60 Dec 11, 2023 12:02 PM [facility] CBC Specimen Type: BLOOD No comment entered. Ordering Provider: KYLER PURCELL Report Released Date/Time: Dec 10, 2023 03:57 PM Reporting Lab: [address] [address] Performing Lab: [address] [address] WBC 8.4 10*3/uL 3.6-11.2 RBC 3.84 10*6/uL [...] 10*3/uL 0.00-0.20 Dec 11, 2023 12:02 PM [facility] MAGNESIUM Specimen Type: PLASMA No comment entered. Ordering Provider: KYLER PURCELL Report Released Date/Time: Dec 11, 2023 10:17 AM Reporting Lab: [facility] [address] [facility] [address] Performing Lab: [facility] [address] [facility] [address] MAGNESIUM 1.3 mg/dL L 1.6-2.6 Social History: Smoking Status (Most current) and Tobacco Use (All prior to encounter date) This section includes the most current, and the historical, smoking and tobacco- related health factors from the [place] facility where the Encounter took place. Current Smoking Status This section includes the most current smoking, or tobacco-related health factor, from the [place] facility where the Encounter took place. Date/Time Current Smoking Status Comment Ester ity Jun 21, 2023 01:14 PM ORYX ADMIT TOBACCO SCREEN NO [facility] Tobacco Use History This section includes a history of the smoking, or tobacco-related health factors, that were collected on or before the date of the Encounter. The data comes from the [place] facility where the Encounter took place. Date/Time Smoking Status/Tobacco Use Comment F acility Dec 12, 2022 04:00 PM ORYX ADMIT TOBACCO SCREEN NO [facility] Jun 25, 2022 03:24 PM VA-TOBACCO FORMER USER [facility] Jun 25, 2022 03:24 PM VA-TOBACCO QUIT 15 YRS OR MORE [facility] Dec 23, 2021 04:59 PM ORYX ADMIT TOBACCO SCREEN REFUSED [facility] May 24, 2020 11:27 PM ORYX ADMIT TOBACCO SCREEN NO [facility] Dec 12, 2019 10:24 AM VA-TOBACCO FORMER USER [facility] Dec 12, 2019 10:24 AM VA-TOBACCO QUIT 15 YRS OR MORE [facility] Aug 03, 2019 02:11 AM ORYX ADMIT TOBACCO SCREEN REFUSED [facility] Oct 12, 2018 01:14 AM QUIT TOBACCO >7 YEARS AGO [facility] Oct 11, 2018 03:33 PM ORYX ADMIT TOBACCO SCREEN NO [facility] Sep 07, 2018 09:13 PM ORYX ADMIT TOBACCO SCREEN NO [facility] Sep 07, 2018 07:52 PM QUIT TOBACCO >7 YEARS AGO [facility] Advance Directives: All historical and current Section Date Range: From patient's date of to the date document was created. This section includes ALL of a patient's completed or amended [place] Advance and Rescinded Directives. The entries below indicate that a directive exists for the patient, but an actual copy is not included with this document. The data comes from all [place] facilities. Date Advance Directives Provider Source Dec 17, 2022 ADVANCE DIRECTIVE BIJAN MERRITT [facility] Feb 09, 2020 ADVANCE DIRECTIVE DISCUSSION MELY LUCIANO [facility] Feb 02, 2018 ADVANCE DIRECTIVE BEAU ALTAMIRANO [facility] Nov 29, 2006 ADVANCE DIRECTIVE MARELY CHACON [facility] Radiology Reports: +/- 30 days of the [...] the Encounter. The data comes from all [place] treatment facilities. Date/Time Radiology Report Provider Source Jan 07, 2024 08:01 PM CHEST PORTABLE: NAGI KATZ [id number] -[id number] M Exm Date: JAN 07, 2024@20:01 Req Phys: ANNA CALI Pat Loc: [facility]Y [facility]PT 3RD SHIFT (R Img Loc: -MAIN RADIOLOGY SUITE Service: Unknown (Case [id number] COMPLETE) CHEST PORTABLE (RAD Detailed) CPT:15433 Proc Modifiers : Portable Reason for Study: weakness, ESRD Clinical History: Report Status: Verified Date Reported: JAN 07, 2024 Date Verified: JAN 07, 2024 Medical Library Assistant E-Sig: Report: CHEST PORTABLE HISTORY: weakness, ESRD COMPARISON: July 26, 2023 TECHNIQUE: One view of the chest was performed at the local [place] facility. images were received by the [place] [facility] ([facility]) for interpretation. FINDINGS: Bilateral peribronchial thickening. Patchy bilateral lower lobe lung opacities. Mildly tortuous aorta. No acute bony abnormalities. Impression: 1. Bilateral peribronchial thickening. 2. Patchy bilateral lung opacities likely represent atelectasis. 3. No pneumothorax. READING PHYSICIAN: Madhu Patton M.D. -[phone] 01/07/2024 19:10 PDT [facility] [phone] (For Medical Practitioner Use Only) Attention Patients / Veterans: If you have questions or concerns about these test results, please contact your ordering provider or primary care team. Primary Interpreting Staff: RADIOLOGY,OUTSIDE SERVICE, Staff Physician / RADIOLOGY,OUTSIDE SERVICE [facility] Encounter Notes: All associated encounter notes This section contains the clinical notes associated to the Encounter. Date/Time Encounter Note(s) Provider Source Dec 18, 2023 03:40 PM OPTOMETRY CONSULT: [facility] TITLE: OPTOMETRY CONSULT [facility] STANDARD TITLE: OPTOMETRY CONSULT DATE OF NOTE: DEC 18, 2023@15:40 ENTRY DATE: DEC 21, 2023@08:15:59 AUTHOR: WILFRED SORIA EXP COSIGNER: URGENCY: STATUS: COMPLETED Ocular Coherence Tomography Report RNFL/ONH and Macula Note: The image can be viewed on [facility] Reason for OCT: 1. mottling OS Assessment: Macula OD: normal foveal pit contour; no DME OS: normal foveal pit contour; no DME /es/ WILFRED SORIA O.D. Staff Physician, Optometry Signed: 12/21/2023 08:17 ESTELLANANNETTERossyEYALVirginia [facility] [facility] Dec 18, 2023 10:58 AM OPTOMETRY NOTE: LOCAL TITLE: OPTOMETRY NOTE STANDARD TITLE: OPTOMETRY NOTE DATE OF NOTE: DEC 18, 2023@10:58 ENTRY DATE: DEC 18, 2023@10:58:36 AUTHOR: WILFRED SORIA EXP COSIGNER: URGENCY: STATUS: COMPLETED Last seen: 12/24/2022 CC: 1. diabetic eye exam reports well controlled on insulin and ozempic 2. eyes feel crummy always dry in the corners itching constantly used ketotifen and refresh did not like either one 3. vision is blurry with current glasses Ocular meds: Refresh ATs PRN OU - did not find relief Ketotifen PRN OU - did not find relief Ocular ROS: No history of ocular surgeries/injuries/laser s 1. 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 Glaucoma Suspect, OU 3. Catracts, OU 4. Dry Eye Syndrome, allergic component, epiphora Family OcHX: (-) blindness (?) glaucoma - sister (-) AMD (-) RD Cardiovascular ROS: no change from problem & medication lists CPRS Problem list, medications and allergies reviewed: CPRS Serology for Diabetes GLUCOSE 163 H mg/dL 12/11/2023 12:02 HGA1C 6.0 % 11/16/2023 16:49 Cardiovascular BP: 119/71 (12/11/2023 10:07) Pulse: 74 (12/11/2023 10:07) Neuro: Orientation: Normal Psych: Mood/Affect: Normal Depression/suicide ideation: NO VISUAL ACUITY With correction Distance Visual Acuity OD: 20/25, slow OS: 20/25, slow Pupils PERRL OU (-)APD Confrontation: FTFC OU Extra-Ocular Muscles Full OU Externals/adnexa Unremarkable OU Refraction: Date: 10/02/20 (vision fluctuating OS>OD) OD: -1.50-2.05b181 20/20-2 OS: -2.00-2.23a634 20/25+1 Add: + 2.50 Refraction 12/24/2022 OD: -1.25 -2.50 x005 20/20- OS: -1.75 -2.50 x007 20/25+2 Add: +2.50 Refraction 12/18/2023 OD: -0.75 -1.50 x180 20/20 OS: -1.00 -2.25 x010 20/20 Add: +2.50 Trialframed changes today SLIT LAMP EXAMINATION Lids/Lashes/Lacrimal moderate anterior blepharitis OU saponification OU Conjunctiva/Sclera White/quiet OU; mild papillary rxn OU Cornea 1+ inf SPK OU Ant Chamber 2+ angles on VH OU and quiet OU Iris Normal, (-)NVI OU Lens 1+ NS cataract OU Intraocular Pressures (Goldmann) 1 gtt fluress Date OD OS Time Meds 10/02/20 17 17 1040 none 12/24/2022 18 18 1517 none 12/18/2023 19 19 1115 none RETINAL EVALUATION 1 phenyleph 2.5%, 1 trop 1% OU DFE Dilated retinal exam Optic Nerve OD: 0.55 CDR Flat, pink, distinct (-)NVD OS: 0.60 CDR Flat, pink, distinct (-)NVD Vessels: 2/3 OU, (-)NVE OU Posterior Pole: OD: (-) Hemorrhages (-) exudates (-) cotton wool spots OS: (-) Hemorrhages (-) exudates (-) cotton wool spots Macula: OD: Flat, clear (-)CSME OS: Flat, clear (-)CSME Periphery: OD: Flat and attached OS: Flat and attached Vitreous: (-)PVD OU Assessment/Plan 12/18/2023 1. 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 2. Glaucoma Suspect, OU - CDR 0.55/0.60 without thinning - IOP /19 - Angles appears slightly narrow on VH - OCT RNFL prior without RNFL thinning - No family history - Edu pt on all findings, defer treatment, IOP ok at this time monitor angles and IOP yearly. Update RNFL as needed 3. Catracts, OU - mild visual significance - Defer c/e until BVA is 20/40 or worse and signs/sx indicate 4. Dry Eye Syndrome, OU - with allergic component, epiphora, blepharitis - Currently on Refresh ATs and Ketotifen but still symptomatic - Will switch to pataday Qdaily OU and Systane QID OU - Discussed importance to compliance to alleviate and prevent symptoms - Pt to call if still symptomatic 5. Refractive Error with Presbyopia, OU - BCVA improved with refraction - Rx shift, OCT macula normal - Trialframed changes today; ordered new glasses, consult placed Pt edu on all findings and given the opportunity to have questions answered RTC 12 months, sooner prn /edwar/ WILFRED SORIA O.D. Staff Physician, Optometry Signed: 12/21/2023 08:51 WILFRED SORIA [facility]
--- OUTSIDE RECORDS SUMMARY | 2024-12-05 00:21 | XMS_ITS | Encounter Summary ---
Author Name [facility] [place] [facility] [place] Address [address] [place] [address] Care Team Providers Care Prism Inspector Name Role Phone ERIKA DEE Primary Care [...] PART A Jul 12, 2019 PART A [id number] [phone] PRASANNA KATZ PATIENT MEDICARE (WNR) MEDICARE (M) PART A Jul 12, 2019 PART A [id number] [phone] PRASANNA KATZ PATIENT Selected Encounter This section includes the information on record at [place] for the Encounter. Date/Time Encounter Type Encounter Description Reason Provider Source February 11, 2024 12:30 PM UNLISTED DIALYSIS PROCEDURE ASSISTED HEMODIALYSIS ICD-10-CM N18.6 End stage renal disease KALEY PARR IHJono Encounter Template Text not used by [place] Assessments - Encounter Diagnoses This section includes the primary and secondary diagnoses documented for the Encounter. 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 This section includes future appointments and future orders which are active, pending or scheduled. Future Appointments This section includes appointments that were scheduled to occur 6 months from the date of the Encounter, up to a maximum of 20 appointments. The data comes from all [place] treatment facilities. Appointment Date/Time Appointment Type Appointme nt Facility Name February 13, 2024 12:30 PM AMBULATORY - MEDICINE [facility] February 15, 2024 08:00 AM AMBULATORY - NONE [facility] February 15, 2024 08:30 AM AMBULATORY - MEDICINE [facility] Apr 05, 2024 09:30 AM AMBULATORY - MEDICINE [facility] Apr 27, 2024 07:30 AM AMBULATORY - SURGERY . [facility] May 02, 2024 08:00 AM AMBULATORY - NONE [facility] May 02, 2024 08:30 AM AMBULATORY - MEDICINE [facility] May 16, 2024 02:00 PM AMBULATORY - MEDICINE [facility] Jul 12, 2024 08:00 AM AMBULATORY - NONE [facility] Jul 12, 2024 08:30 AM AMBULATORY - MEDICINE [facility] Lab Results: +/- 30 days of the [...] Range Comment Feb 09, 2024 12:40 PM [facility] HEP B CORE AB TOTAL. (STL) Specimen Type: SERUM No comment entered. Ordering Provider: CHENG PURCELL Report Released Date/Time: Feb 09, 2024 10:43 AM Reporting Lab: [address] [address] Performing Lab: [address] [address] HEP B CORE AB TOTAL. (STL) Nonreactive Nonreactive Feb 09, 2024 12:40 PM [facility] HEP HB S Ag (AUSRIA) (STL) Specimen Type: SERUM No comment entered. Ordering Provider: CHENG PURCELL Report Released Date/Time: Feb 09, 2024 10:43 AM Reporting Lab: [address] [address] Performing Lab: [address] [address] HEP HB S Ag ([place]RIA) (STL) Nonreactive Nonreactive Feb 09, 2024 12:40 PM [facility] HEPATITIS B SURFACE AB PNL Specimen Type: SERUM No comment entered. Ordering Provider: CHENG PURCELL Report Released Date/Time: Feb 09, 2024 10:43 AM Reporting Lab: [address] [address] Performing Lab: [address] [address] HEP B Surface Ab-HBsAB (L) REACTIVE m[IU]/mL Nonreactive HEP Bs AB-QUANT (L) 79.36 m[IU]/mL Feb 09, 2024 12:40 PM [facility] CBC Specimen Type: BLOOD No comment entered. Ordering Provider: CHENG PURCELL Report Released Date/Time: Feb 04, 2024 03:20 PM Reporting Lab: [address] [address] Performing Lab: [address] [address] WBC 9.7 10*3/uL 3.6-11.2 RBC 3.09 10*6/uL [...] 10*3/uL 0.00-0.20 Feb 09, 2024 12:40 PM [facility] RENAL PANEL Specimen Type: PLASMA Comment: No hemolysis noted. Ordering Provider: CHENG PURCELL Report Released Date/Time: Feb 04, 2024 03:20 PM Reporting Lab: [address] [address] Performing Lab: [address] [address] CREATININE 7.69 mg/dL H 0.7-1.3 UREA NITROGEN 52.2 mg/dL H 9.0-25.0 GLUCOSE 147 mg/dL H 72-99 SODIUM 142 meq/L 136-145 POTASSIUM 4.1 meq/L 3.5-5 CHLORIDE 107 meq/L 98-107 CARBON DIOXIDE 22 meq/L 22-31 CALCIUM 10.2 mg/dL 8.4-10.4 PHOSPHOROUS 3.7 mg/dL 2.3-4.7 ALBUMIN 3.7 g/dL 3.4-5 EGFR (CKD-EPI 2020) 7.1 LL >60 Feb 04, 2024 05:00 PM [facility] URR-POST PANEL (STL) Specimen Type: PLASMA No comment entered. Ordering Provider: CHENG PURCELL Report Released Date/Time: Feb 04, 2024 01:42 PM Reporting Lab: [address] [address] Performing Lab: [address] [address] BUN-POST DIALYSIS 16.2 mg/dL 9.0-25.0 URR (STL) 70.4 67.0-100.0 Feb 04, 2024 12:45 PM [facility] RENAL PANEL Specimen Type: PLASMA Comment: No hemolysis noted. Ordering Provider: CHENG PURCELL Report Released Date/Time: Feb 04, 2024 01:42 PM Reporting Lab: [address] [address] Performing Lab: [address] [address] CREATININE 6.97 mg/dL H 0.7-1.3 UREA NITROGEN 54.7 mg/dL H 9.0-25.0 GLUCOSE 134 mg/dL H 72-99 SODIUM 142 meq/L 136-145 POTASSIUM 4.0 meq/L 3.5-5 CHLORIDE 105 meq/L 98-107 CARBON DIOXIDE 24 meq/L 22-31 CALCIUM 9.7 mg/dL 8.4-10.4 PHOSPHOROUS 4.8 mg/dL H 2.3-4.7 ALBUMIN 3.9 g/dL 3.4-5 EGFR (CKD-EPI 2020) 7.9 LL >60 Feb 02, 2024 04:30 PM [facility] URR-POST PANEL (STL) Specimen Type: PLASMA No comment entered. Ordering Provider: CHENG PURCELL Report Released Date/Time: Feb 02, 2024 03:39 PM Reporting Lab: [address] [address] Performing Lab: [address] [address] BUN-POST DIALYSIS 22.9 mg/dL 9.0-25.0 URR (STL) 60.9 L 67.0-100.0 Feb 02, 2024 11:50 AM [facility] RENAL PANEL Specimen Type: PLASMA Comment: No hemolysis noted. Ordering Provider: CHENG PURCELL Report Released Date/Time: Feb 02, 2024 07:35 AM Reporting Lab: [facility] [address] [place] [address] Performing Lab: [address] [address] CREATININE 8.34 mg/dL H 0.7-1.3 UREA NITROGEN 58.6 mg/dL H 9.0-25.0 GLUCOSE 169 mg/dL H 72-99 SODIUM 142 meq/L 136-145 POTASSIUM 4.6 meq/L 3.5-5 CHLORIDE 111 meq/L H 98-107 CARBON DIOXIDE 20 meq/L L 22-31 CALCIUM 9.2 mg/dL 8.4-10.4 PHOSPHOROUS 3.6 mg/dL 2.3-4.7 ALBUMIN 3.7 g/dL 3.4-5 EGFR (CKD-EPI 2020) 6.4 LL >60 Feb 01, 2024 11:00 PM [facility] 24H UR CHEM PANEL (STL) Specimen Type: 24-HOUR URINE No comment entered. Ordering Provider: CHENG PURCELL Report Released Date/Time: Jan 28, 2024 04:55 PM Reporting Lab: [address] [address] Performing Lab: [address] [address] VOLUME 3289 mL SODIUM 24-HOUR URINE 226.941 H 40-220 POTASSIUM 24-HOUR URINE 35.8501 25-125 CHLORIDE 24-HOUR URINE 171.028 110-250 PROTEIN 24-HOUR URINE 1986.556 H 0-299.9 CREATININE 24-HOUR URINE [phone] Jan 28, 2024 05:29 PM [facility] CBC Specimen Type: BLOOD No comment entered. Ordering Provider: CHENG PURCELL Report Released Date/Time: Jan 28, 2024 05:07 PM Reporting Lab: [facility] [address] [facility] [address] Performing Lab: [place] [address] [facility] [address] WBC 8.9 10*3/uL 3.6-11.2 RBC 2.96 10*6/uL [...] 10*3/uL 0.00-0.20 Jan 26, 2024 01:00 PM [facility] FERRITIN Specimen Type: SERUM No comment entered. Ordering Provider: CHENG PURCELL Report Released Date/Time: Jan 21, 2024 03:14 PM Reporting Lab: [place] [address] [facility] [address] Performing Lab: [place] [address] [facility] [address] FERRITIN 118.78 ng/mL 22-275 Jan 26, 2024 01:00 PM [facility] PTH, INTACT (STL) Specimen Type: SERUM No comment entered. Ordering Provider: CHENG PURCELL Report Released Date/Time: Jan 21, 2024 03:14 PM Reporting Lab: [place] [address] [facility] [address] Performing Lab: [facility] [address] [facility] [address] PTH, INTACT (STL) 141.40 pg/mL H 8.7-77.7 Jan 26, 2024 01:00 PM [facility] RENAL PANEL Specimen Type: PLASMA Comment: No hemolysis noted. Ordering Provider: CHENG PURCELL Report Released Date/Time: Jan 21, 2024 03:14 PM Reporting Lab: [facility] [address] [facility] [address] Performing Lab: [facility] [address] [facility] [address] CREATININE 8.25 mg/dL H 0.7-1.3 UREA NITROGEN 63.1 mg/dL H 9.0-25.0 GLUCOSE 157 mg/dL H 72-99 SODIUM 137 meq/L 136-145 POTASSIUM 4.2 meq/L 3.5-5 CHLORIDE 100 meq/L 98-107 CARBON DIOXIDE 26 meq/L 22-31 CALCIUM 9.6 mg/dL 8.4-10.4 PHOSPHOROUS 4.9 mg/dL H 2.3-4.7 ALBUMIN 3.7 g/dL 3.4-5 EGFR (CKD-EPI 2020) 6.5 LL >60 Jan 26, 2024 01:00 PM [facility] IRON/TIBC PROFILE Specimen Type: SERUM No comment entered. Ordering Provider: CHENG PURCELL Report Released Date/Time: Jan 21, 2024 03:14 PM Reporting Lab: [facility] [address] [facility] [address] Performing Lab: [facility] [address] [facility] [address] TIBC 225 ug/dL L 250-450 TRANSFERRIN 180 mg/dL 163-344 IRON SATURATION 23 20-50 IRON 52 ug/dL L 65-175 Jan 26, 2024 01:00 PM [facility] CBC Specimen Type: BLOOD No comment entered. Ordering Provider: CHENG PURCELL Report Released Date/Time: Jan 21, 2024 03:14 PM Reporting Lab: [facility] [address] [facility] [address] Performing Lab: [facility] [address] [facility] [address] WBC 7.8 10*3/uL 3.6-11.2 RBC 2.95 10*6/uL [...] 10*3/uL 0.00-0.20 Jan 21, 2024 12:55 PM [facility] PT/INR NEW ([facility]) Specimen Type: PLASMA No comment entered. Ordering Provider: CHENG PURCELL Report Released Date/Time: Jan 21, 2024 12:43 PM Reporting Lab: [place] [address] [facility] [address] Performing Lab: [address] [address] PROTIME 15.9 s H 9.4-12.5 INR VALUE 1.4 {INR} Jan 21, 2024 12:55 PM [facility] RENAL PANEL Specimen Type: PLASMA Comment: No hemolysis noted. Ordering Provider: CHENG PURCELL Report Released Date/Time: Jan 21, 2024 12:41 PM Reporting Lab: [facility] [address] [facility] [address] Performing Lab: [place] [id number] [facility] [address] CREATININE 8.11 mg/dL H 0.7-1.3 UREA NITROGEN 82.6 mg/dL H 9.0-25.0 GLUCOSE 114 mg/dL H 72-99 SODIUM 139 meq/L 136-145 POTASSIUM 5.1 meq/L H 3.5-5 CHLORIDE 109 meq/L H 98-107 CARBON DIOXIDE 19 meq/L L 22-31 CALCIUM 9.3 mg/dL 8.4-10.4 PHOSPHOROUS 4.1 mg/dL 2.3-4.7 ALBUMIN 3.8 g/dL 3.4-5 EGFR (CKD-EPI 2020) 6.6 LL >60 Jan 14, 2024 11:55 AM [facility] RENAL PANEL Specimen Type: PLASMA Comment: No hemolysis noted. Ordering Provider: CHENG PURCELL Report Released Date/Time: Jan 13, 2024 07:58 AM Reporting Lab: [address] [address] Performing Lab: [address] [address] CREATININE 8.05 mg/dL H 0.7-1.3 UREA NITROGEN 70.7 mg/dL H 9.0-25.0 GLUCOSE 155 mg/dL H 72-99 SODIUM 140 meq/L 136-145 POTASSIUM 5.1 meq/L H 3.5-5 CHLORIDE 107 meq/L 98-107 CARBON DIOXIDE 21 meq/L L 22-31 CALCIUM 9.6 mg/dL 8.4-10.4 PHOSPHOROUS 4.8 mg/dL H 2.3-4.7 ALBUMIN 4.1 g/dL 3.4-5 EGFR (CKD-EPI 2020) 6.7 LL >60 Vital Signs: All taken on the encounter date This section contains inpatient and outpatient Vital Signs collected on the date of the Encounter. Date/Time Temperature Pulse Blood Pressure Respiratory Rate SP02 Pain Height Weight Body Mass Index Source February 11, 2024 02:52 PM 98.3 58 148/[address] [facility] Social History: Smoking Status (Most [...] 01:14 PM ORYX ADMIT TOBACCO SCREEN NO [facility] Tobacco Use History This section includes a history of the smoking, or tobacco-related health factors, that were collected on or before the date of the Encounter. The data comes from the [place] facility where the Encounter took place. Date/Time Smoking Status/Tobacco Use Comment F acility Dec 12, 2022 04:00 PM ORYX ADMIT TOBACCO SCREEN NO [facility] Jun 25, 2022 03:24 PM VA-TOBACCO FORMER USER [facility] Jun 25, 2022 03:24 PM VA-TOBACCO QUIT 15 YRS OR MORE [facility] Dec 23, 2021 04:59 PM ORYX ADMIT TOBACCO SCREEN REFUSED [facility] May 24, 2020 11:27 PM ORYX ADMIT TOBACCO SCREEN NO [facility] Dec 12, 2019 10:24 AM VA-TOBACCO FORMER USER [facility] Dec 12, 2019 10:24 AM VA-TOBACCO QUIT 15 YRS OR MORE [facility] Aug 03, 2019 02:11 AM ORYX ADMIT TOBACCO SCREEN REFUSED [facility] Oct 12, 2018 01:14 AM QUIT TOBACCO >7 YEARS AGO [facility] Oct 11, 2018 03:33 PM ORYX ADMIT TOBACCO SCREEN NO [facility] Sep 07, 2018 09:13 PM ORYX ADMIT TOBACCO SCREEN NO [facility] Sep 07, 2018 07:52 PM QUIT TOBACCO >7 YEARS AGO [facility] Advance Directives: All historical and current Section [...] Dec 17, 2022 ADVANCE DIRECTIVE BIJAN MERRITT [facility] Feb 09, 2020 ADVANCE DIRECTIVE DISCUSSION MELY LUCIANO [facility] Feb 02, 2018 ADVANCE DIRECTIVE BEAU ALTAMIRANO [facility] Nov 29, 2006 ADVANCE DIRECTIVE MARELY CHACON [facility] Encounter Notes: All associated encounter notes This section contains the clinical notes associated to the Encounter. Date/Time Encounter Note(s) Provider Source February 11, 2024 05:16 PM DIALYSIS NOTE: LOCAL TITLE: HEMODIALYSIS RUNSHEET APPOINTMENT [facility] STANDARD TITLE: DIALYSIS NOTE DATE OF NOTE: FEBRUARY 11, 2024@17:16:33 ENTRY DATE: FEBRUARY 11, 2024@17:16:33 AUTHOR: 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 COSIGNER: URGENCY: routine STATUS: COMPLETED Dialysis [place]uns[place] Appointment on February 11, 2024@12:43 Patient: NAGI KATZ Treatment Date: 11-Feb-2024 Status: Discharged Latest Lab Result: URR: (, ) Kt/V: (, ) HgB: (, ) HCT: (, ) Diagnosis: End stage renal disease Patient Type: Inpatient Allergies: MORPHINE Resuscitate: [x] YES [ ] NO HD Summary Tables TREATMENT SUMMARY Treatment Start Time 11-Feb-2024 1243 Treatment End Time 11-Feb-2024 1630 Duration(ordered): 4:00 Duration(manually adjusted): 3:46 Weights (Kg) and Fluid Removed (L): Date Pre Weight Target Weight Post Weight Excess Weight IDW Goal Weight Target UF Achieved UF Current 102.80 0.00 102.00 102.80 1.60 0.00 0.50 1.39 09-Feb-2024 101.70 0.00 101.20 101.70 -0.30 0.00 0.50 1.21 06-Feb-2024 103.00 0.00 102.90 103.00 -0.20 0.00 0.50 0.91 Blood Pressures (mmHg) & Fluid intake (mL) during treatment: Date Pre BP Post BP Lowest BP Highest BP IVF Given (mL) PO Fluid (mL) Current Sitting 138/68 Standing 135/68 125/65 152/65 0.40 Standing 141/69 -- -- -- -- 09-Feb-2024 Sitting 170/75 Sitting 128/60 117/58 154/70 0.40 Standing 116/68 -- -- -- -- 06-Feb-2024 Sitting 117/59 Standing 135/54 104/58 133/64 0.40 Sitting 113/63 Standing 140/67 -- -- -- -- Pulse and Temp: Date Pre Pulse Post Pulse Lowest Pulse Highest Pulse Pre Temp Post Temp Current Sitting 58 Standing 66 58 69 98.3 98.1 Standing 60 -- -- -- -- 09-Feb-2024 Sitting 69 Sitting 57 57 67 98.0 98.1 Standing 62 -- -- -- -- 06-Feb-2024 Sitting 60 Standing 57 51 64 97.3 97.9 Sitting 59 Standing 60 -- -- -- -- HD Times Date Prescribed Time Achieved Time Treatment Start Treatment End Current 4:00 3:46 1243 1630 09-Feb-2024 4:00 3:59 1242 1642 06-Feb-2024 4:00 3:59 1145 1545 Day's Order _ Related Problem: End stage renal disease Access Type: Fistula Access Site: VIRGIE Backup Access: Backup Access Site: Needle Gauge: 15 gauge 1 Freezing: [ ] YES [x] NO Machine Type: Boomer Gambro Isolation: [ ] YES [x] NO Conventional HD Prosthesis(kg): Wheelchair(kg): Target Weight(kg): 0.00 Duration(h): 4:00 or Target UF(kg): 0.50 Frequency(x/wk): 3.00 Dialysate Temp(C): 37.00 Dialysis Type: [ ] daytime [ ] nocturnal Prescribed BVP(L): Dialysate Type: Saline Inf. (mL): PLATER HOT DIP Blood Flow(ml/min): Hemodiafiltr. Volume(l): Hemodiafiltr. Fluid Type: Fractional Urea Distribution Space: 0.00 Prescribed KT/V: Process: Hemodialysis Procedure: Daily dialysis treatment Dialyzer: Nipro Elisio - 25H Max. reuses: Dialyzer 2: Tubing: K+(mmol/L): 2 Ca+(mmol/L): 2.5 Glucose(mmol/L): Mg+(mmol/L): Profiles: Initial values: Ramping: Dialysate Flow(ml/min): 600.00 Blood Flow(ml/min): 400 Bicarb(mmol/L): 40 Na+(mmol/L): 138 UFR(kg/hr : ml/kg/hr): BTM Function: Comments: Ok to use Tablo if necessary. Cannulate fistula per protocol. 17 gaugeneedles today and on Thursday01/16/24, may proceed to 16 gauge needleson01/19/24 if cannulation successful. May challenge with 0.5kg if he hasedema. Thank you. Anticoagulant: HEPARIN NA (PORK) 1000UNT Prebolus: Hourly: Cutoff time(min): Units: UNIT Post Art Instill: Post Glen Instill: Heparin Option: Instructions: Day's Hemodialysis Order Changes: Time Parameter Old Value New Value Comments Verified Verified Time Verified By 1448 Needle Gauge 15 gauge 1 info updated NO === Access ========= Access Type: Fistula only PRE POST Bruit [...] [x] NO Hemostasis Time: Arterial Port (min): 10 Venous Port (min): 10 Cannulated Glen: 1 Staff: YOANDY BARBOSA Cannulated Art: 1 Staff: YOANDY BARBOSA General: Today's Assessment: 15g needles 2x NO LABS === Predialysis ===== Extra Treatment: [ ] YES [x] NO Received From: Staff On: YOANDY BARBOSA Station: Chair 10 Machine #: C - 19 Resp Caregiver: Treat Caregiver: Arrival Time: 11-Feb-2024 1230 Mode: walking By/With: unaccompanied Vital Signs Temp(C): 98.30 Resp: 20 Time: 1232 Sitting BP: 138/68 Sitting Pulse: 58 Time: 1250 Standing BP: 141/69 Standing Pulse: 60 Weights Measure Wt(kg): 102.80 Target Weight(kg): 0.00 Prosthesis Wt(kg): or Target UF(kg): 0.50 Wheelchair Wt(kg): Weight Change(kg): 1.60 Current Wt(kg): 102.80 Excess Weight(kg): 102.80 Total Fluid Admin(kg): 0.40 Expected UF Vol(kg): 103.20 Target TMP(mm/Hg): UFR(kg/hr : ml/kg/hr): 25.70 : ? Patient Condition: 11-Feb-2024 1250 YOANDY BARBOSA Alert and oriented, Confirmed correct pt, No complaints offered Nursing Assessment: 11-Feb-2024 1448 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 PRE-ASSESSMENT MENTAL STATUS: [xxxxx]Alert & Oriented x 3 Comment:[ [ ]Alert & Oriented x 2 [ ]Person [ ]Place [ ]Time/Date [ ]Situation Comment:[ [ ]Alert & Oriented x 1 [ ]Person [ ]Place [ ]Time/Date [ ]Situation Comment:[ [ ]Confused Comment:[ [ ]Other Comment:[ RESPIRATORY STATUS: [xxxxx ]Clear bilaterally [ ]Clear right [ ]Clear [...] ]R lower lobe [ ]Bilateral Comment:[ EDEMA: [xxxxx ]No edema noted [ ]Face [ ]Abdomen [ ]Bilateral UE [ ]Left UE [ ]Right UE [ ] Bilateral LE [ ]Left LE [ ]Right LE Comment:[ Comments: lidocaine used. no labs ordered. no complications with start of treatment. reviewed meds, hemodialysis session and fluid removal. understanding verbalized. Acknowledged On: 11-Feb-2024 1440 By: 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 Pain: Acuity: 0 Type: Location: Measures: Heparin: Pump Start At: By: Hourly Rate: Bolus: Same Syringe: [ ] YES [x] NO Total in Syringe: Verified By: Time: Communication: Preferred Language: Botswanan Providier Proficient: [ ] YES [x] NO International Sales Manager Desired: [ ] YES [x] NO Offered: [ ] YES [x] NO === Dialysis Log = DIALYSIS LOG Start Date/Time: 11-Feb-2024 1243 Table 1: Dialysis Data Time BP MAP Pulse BFR BVP AP PLATER HOT DIP TMP UFR TFR HEP Hep Com 1243 190 0.0 -10 80 20 0.35 : ? 0.00 0.0 1244 150/98 0.0 69 380 0.3 -60 110 65 0.35 : ? 0.00 0.0 1259 136/64 0.0 58 390 6.0 -160 210 10 0.36 : ? 0.10 0.0 1314 135/65 0.0 58 390 11.8 -160 250 10 0.36 : ? 0.17 0.0 1344 150/63 0.0 58 380 22.9 -150 190 15 0.35 : ? 0.35 0.0 1359 148/66 0.0 58 380 28.6 -150 210 15 0.35 : ? 0.45 0.0 1414 152/65 0.0 60 380 34.3 -150 210 15 0.35 : ? 0.54 0.0 1429 144/66 0.0 61 380 40.0 -160 180 20 0.35 : ? 0.62 0.0 1444 141/67 0.0 61 380 45.7 -150 190 15 0.35 : ? 0.72 0.0 1459 142/66 0.0 61 380 51.4 -160 200 15 0.35 : ? 0.79 0.0 1514 125/65 0.0 61 380 57.1 -150 180 20 0.36 : ? 0.89 0.0 1532 138/69 0.0 60 380 63.9 -150 190 10 0.36 : ? 0.99 0.0 1544 134/68 0.0 62 380 68.5 -150 190 10 0.36 : ? 1.06 0.0 1556 0.0 1557 0.0 1600 147/66 0.0 60 380 74.8 -150 180 20 0.43 : ? 1.16 0.0 1614 150/67 0.0 60 380 79.9 -150 170 15 0.43 : ? 1.27 0.0 1623 143/66 0.0 60 380 83.5 -150 170 20 0.43 : ? 1.34 0.0 1628 148/66 0.0 59 380 85.2 -150 170 15 0.43 : ? 1.37 0.0 1632 0 86.0 -150 20 -5 0.00 : ? 1.39 0.0 1556 0.0 Table 2: Dialysate Bath Time DFR ADV Temp K Ca Na HC03 1243 600.00 36.90 2.00 2.50 0.00 0.00 1244 600.00 37.00 2.00 2.50 0.00 0.00 1259 600.00 36.90 2.00 2.50 0.00 0.00 1314 600.00 36.90 2.00 2.50 0.00 0.00 1344 600.00 36.90 2.00 2.50 0.00 0.00 1359 600.00 36.90 2.00 2.50 0.00 0.00 1414 600.00 36.90 2.00 2.50 0.00 0.00 1429 600.00 36.90 2.00 2.50 0.00 0.00 1444 600.00 36.80 2.00 2.50 0.00 0.00 1459 600.00 36.90 2.00 2.50 0.00 0.00 1514 600.00 36.90 2.00 2.50 0.00 0.00 1532 600.00 36.90 2.00 2.50 0.00 0.00 1544 600.00 36.90 2.00 2.50 0.00 0.00 1556 1557 1600 600.00 36.90 2.00 2.50 0.00 0.00 1614 600.00 36.90 2.00 2.50 0.00 0.00 1623 600.00 36.90 2.00 2.50 0.00 0.00 1628 600.00 36.90 2.00 2.50 0.00 0.00 1632 600.00 36.90 2.00 2.50 0.00 0.00 1556 Table 3: Patient Assessment Acknowledge Time Author Access Visible Patient Status 11-Feb-2024 1250 BRAXTON BARBOSAL N [x] YES [ ] NO ready for treatment 11-Feb-2024 1251 BRAXTON BARBOSAL N [x] YES [ ] NO secured lines 11-Feb-2024 1353 MATY BARBOSAQUEL N [x] YES [ ] NO call light in reach 11-Feb-2024 1353 BRAXTON BARBOSAL N [x] YES [ ] NO talking with staff 11-Feb-2024 1354 FAMILIAYOANDY N [x] YES [ ] NO pt requested juice and water 11-Feb-2024 1422 BRAXTON BARBOSAL N [x] YES [ ] NO talking with Maria Elena 11-Feb-2024 1422 BRAXTON BARBOSAL N [x] YES [ ] NO watching tv 11-Feb-2024 1508 MATY BARBOSAQUEL N [x] YES [ ] NO no issues 11-Feb-2024 1509 BRAXTON BARBOSAL N [x] YES [ ] NO resting in chair 11-Feb-2024 1509 FAMILIA,YOANDY N [x] YES [ ] NO stable b/p 11-Feb-2024 BRAXTON BARBOSAL N [x] YES [ ] NO resting in chair 11-Feb-2024 MATY BARBOSAQUEL N [x] YES [ ] NO talking with nurse 11-Feb-2024 MATY BARBOSAQUEL N [x] YES [ ] NO call light in reach 11-Feb-2024 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 [ ] YES [x] NO 11-Feb-2024 155 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 [ ] YES [x] NO 11-Feb-2024 160 MATY BARBOSAQUEL N [x] YES [ ] NO lines intact 11-Feb-2024 1619 MATY BARBOSAQUEL N [x] YES [ ] NO stable b/p 11-Feb-2024 MATY BARBOSAQUEL N [ ] YES [x] NO no issues 11-Feb-2024 MATY BARBOSAQUEL N [x] YES [ ] NO treatment complete [ ] YES [x] NO 11-Feb-2024 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 [ ] YES [x] NO === Medication Log Medication Log Start Date/Time: 11-Feb-2024 Medication: Time: 1555 Nurse: 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 2nd surgical services coordinator: Medication/Blood: LIDOCAINE 2.5/PRILOCAINE 2.5% CREAM Dosage/Units: Not given Route: Unused Amount: 0.00 IV Flush(mL): Admin Comments: Reason Not Given: Medication: Time: 1555 Nurse: 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 2nd surgical services coordinator: Medication/Blood: IRON SUCROSE 20MG/ML INJ Dosage/Units: 100.00 mg Route: IV PUSH Unused Amount: 0.00 IV Flush(mL): Admin Comments: [id number] Reason Not Given: Medication: Time: 1556 Nurse: 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 2nd surgical services coordinator: Medication/Blood: PARICALCITOL 2MCG/ML SOLN INJ Dosage/Units: 2.00 mcg Route: IV PUSH Unused Amount: 0.00 IV Flush(mL): Admin Comments: [id number] Reason Not Given: === Events Log ===== Time Resolved Complication Comments Author Brigitte Navarro Notified susan Nurse === Postdialysis ==== Clotted: [ ] YES [x] NO Infiltrated: [ ] YES [x] NO Extra Treatment: [ ] YES [x] NO Procedure: Daily dialysis treatment Stop Date/Time: 11-Feb-2024 1630 Dialysis Time(hrs): 3:46 Staff Off: YOANDY BARBOSA Effective Time(hrs): Resp Caregiver: Departure Time: 1650 By/With: unaccompanied Mode: walking Visit Disposition: Discharged Home (private dwelling, not an institution, no support services) Patient Sent To: Pain Acuity: 0 Type: Location Measures Measures Measures Weights Measured Wt.(kg): 102.00 Prosthesis Wt.(kg): Wheelchair Wt(kg): Post Dialysis Wt(kg): 102.00 Target Weight(kg): 0.00 Target UF(kg): 0.50 Removed Wt(kg): 0.80 Fluid Removed(kg): 1.39 Effective UFR (kg/hr:ml/kg/hr): 0.21 : 2.1 Dialysate Used(L): 135.60 Patient Status Temp(C): 98.10 Resp: 20 Standing BP: 135/68 Standing Pulse: 66 BP: Pulse: Lowest BP: 125/65 BV Processed: Heparin Total Ordered: 0.00 Total Infused: Left in Syringe: Verified At: By: 2nd surgical services coordinator: By: Fluid Intake Total Ingested(kg): Total HDF Administered(kg): Avg HDF(kg/hr): Hematocrit(%): Hemoglobin(mg/dL): KT/V: Relative Blood Volume(%): Final Effective Ionic Dialysance: Dialyzer Post Dial Rating: Clear Acid Disinfect: 1655 Chemical Cycle Start At: 1655 Heat Cycle Start At: Patient Condition: 11-Feb-2024 1657 YOANDY BARBOSA Alert & oriented, Discharged ambulatory, Treatment tolerated without complication Nursing Assessment: 11-Feb-2024 1705 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 POST-ASSESSMENT MENTAL STATUS: [xxxxx]Alert & Oriented x 3 Comment: [ ]Alert & Oriented x 2 [ ]Person [ ]Place [ ]Time/Date [ ]Situation Comment: [ ]Alert & Oriented x 1 [ ]Person [ ]Place [ ]Time/Date [ ]Situation Comment:[ [ ]Confused Comment:[ [ ]Other Comment:[ RESPIRATORY STATUS: [xxxxx ]Clear bilaterally [ ]Clear right [ ]Clear [...] ]R lower lobe [ ]Bilateral Comment:[ EDEMA: [xxxxx ]No edema noted [ ]Face [ ]Abdomen [ ]Bilateral UE [ ]Left UE [ ]Right UE [ ] Bilateral LE [ ]Left LE [ ]Right LE Comment:[ Comments: left clinic in no distress Acknowledged On: 11-Feb-2024 170 Acknowledged By: 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 N === Preparation ===== Station: Chair 10 Machine #: C - 19 MACHINE DISINFECTION Acid Cycle: 11-Feb-2024 Heat Cycle: 03-Feb-2024 Chemical Cycle: 11-Feb-2024 Disinfect Clear Status: 11-Feb-2024 MACHINE CHECKS Original All Steps Completed: [x] YES [ ] NO Alarm Test Complete: 11-Feb-2024 Alarms Audible: 11-Feb-2024 Checked prescription: 11-Feb-2024 Checked conductivity: 11-Feb-2024 Double checked 11-Feb-2024 Patient identified: 11-Feb-2024 prescription: Time Out: 11-Feb-2024 Conductivity: 13.90 Calcium: 2.5 Dialysate Temperature: 37.00 Potassium: 2 Bicarb: 40 Reading confirmation: 11-Feb-2024 Conductivity: 13.90 pH: 7.10 Replacement All Steps Completed: [x] YES [ ] NO Alarm Test Complete: 11-Feb-2024 Alarms Audible: 11-Feb-2024 Checked prescription: 11-Feb-2024 Checked conductivity: 11-Feb-2024 Double checked 11-Feb-2024 Patient identified: 11-Feb-2024 prescription: Time Out: 11-Feb-2024 Conductivity: 13.90 K+: 2 pH: 7.10 Ca+: 2.5 Dialysate Temp (C): 37.00 === Material ======== MATERIAL / DIALYZER REUSE Start Machine (#): C - 19 Time Failed: Replacement Machine: Replaced time: Reason: Dialyzer Label: Nipro Elisio - 25H Reprocessed #: Dialyzer Lot: Pre-dialysis Dialyzer Rating: Check 1: 11-Feb-2024 0949 YOANYD BARBOSA Check 2: 11-Feb-2024 1156 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 Location: 112[address] /es/ 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 REGISTERED NURSE Signed: 02/11/2024 17:16 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 [facility]
--- OUTSIDE RECORDS SUMMARY | 2024-12-05 00:21 | XMS_ITS ---
Author Name [facility] [place] [facility] [place] Address [address] [place] [address] Care Team Providers Care Marketing Production Specialist Name Role Phone LUIZ ERIKA Primary Care Provider UnavailBLU Echols Primary Care [...] PART A Jul 12, 2019 PART A [id number] PRASANNA KATZ PATIENT MEDICARE (WNR) MEDICARE (M) PART A Jul 12, 2019 PART A [id number] [phone] PRASANNA KATZ PATIENT Selected Encounter This section includes the information on record at [place] for the Encounter. Date/Time Encounter Type Encounter Description Reason Pro vider Source Dec 02, 2024 12:20 PM Outpatient Encounter ADMIN PAT ACTIVTIES (MASNONCT) IHE Encounter Template Text not used by [facility] Plan of Treatment: Future Appointments (+ 6 months) and Future Tests (+/- 45 days) The Plan of Treatment section includes future care activities for the patient from all [place] [facility]. This section includes future appointments and future orders which are active, pending or scheduled. Future Appointments This section includes appointments that were scheduled to occur 6 months from the date of the Encounter, up to a maximum of 20 appointments. The data comes from all [facility]. Appointment Date/Time Appointment Type Appointme nt Facility Name Dec 12, 2024 12:45 PM AMBULATORY - MEDICINE [facility] Dec 12, 2024 03:00 PM AMBULATORY - SURGERY [facility] Mar 20, 2025 10:30 AM AMBULATORY - MEDICINE [facility] Active, Pending, and Scheduled Orders This section includes a listing of several types of active, pending, and scheduled orders, including clinic medications orders, diagnostic test orders, procedure orders and consult orders; where the start date of the order is 45 days before the date of the Encounter or 45 days after the date of theEncounter. The data comes from all [facility]. Test Date/Time Test Type Test Details Facility Name Nov 16, 2024 12:16 PM Consult Order RENAL DUMAS SPLANT EVAL OUTPATIENT [facility] Cons Feather Separator's Choice [facility] Lab Results: +/- 30 days of the encounter This section includes the Chemistry and Hematology Lab Results on record with [place] for the patient. Radiology Reports and Pathology Reports are provided separately, in subsequent sections. Lab Results This section contains the Chemistry/Hematology Results that were resulted 30 days before or 30 daysafter the date of the Encounter. Date/Time Source Result Type Result - Unit Interpretation Reference Range Comment Dec 02, 2024 11:50 AM [facility] URINALYSIS W/ CX REFLEX (STL-PB) Specimen Type: URINE No comment entered. Ordering Provider: NIEVES MUHAMMAD MD Report Released Date/Time: Dec 02, 2024 10:33 AM Reporting Lab: [facility] [address] [address] Performing Lab: [address] [address] URINE COLOR Colorless Yellow U.BILIRUBIN Negative mg/dL [...] GRAVITY 1.010 Dec 02, 2024 10:30 AM [facility] APTT Specimen Type: PLASMA No comment entered. Ordering Provider: NIEVES MUHAMMAD MD Report Released Date/Time: Dec 02, 2024 10:33 AM Reporting Lab: [place] [address] Performing Lab: [address] [address] APTT 37.8 s 26.7-39.9 Dec 02, 2024 10:30 AM [facility] PT/INR NEW ([facility]) Specimen Type: PLASMA No comment entered. Ordering Provider: NIEVES MUHAMMAD MD Report Released Date/Time: Dec 02, 2024 10:33 AM Reporting Lab: [address] [address] Performing Lab: [address] [address] PROTIME 14.4 s H 9.4-12.5 INR VALUE 1.3 {INR} Dec 02, 2024 10:30 AM [facility] COVID-19 DIAGNOSTIC (FLU/RSV)([facility]) Specimen Type: NASOPHARYNX Comment: INFLUENZA A CALLED TO JORGE HANKINS RN [phone] Ordering Provider: NIEVES MUHAMMAD MD Report Released Date/Time: Dec 02, 2024 10:33 AM Reporting Lab: [address] [address] Performing Lab: [address] [place] [address] INFLUENZA A POSITIVE INFLUENZA B NEGATIVE COVID-19 (Cepheid) NEGATIVE Negative COVID-19 (STL-PB) Not Detected Not Detected RSV (Cepheid) NEGATIVE Negative Dec 02, 2024 10:30 AM [facility] LIPASE Specimen Type: PLASMA Comment: No hemolysis noted. Ordering Provider: NIEVES MUHAMMAD MD Report Released Date/Time: Dec 02, 2024 10:33 AM Reporting Lab: [facility] [address] [address] Performing Lab: [address] [address] LIPASE 198 U/L H 878 Dec 02, 2024 10:30 AM [facility] LIPASE Specimen Type: PLASMA No comment entered. Ordering Provider: NIEVES MUHAMMAD MD Report Released Date/Time: Dec 02, 2024 10:59 AM Reporting Lab: [place] [address] [address] [address] Performing Lab: [address] [address] LIPASE 201 U/L H 878 Dec 02, 2024 10:30 AM [facility] TROPONIN I Specimen Type: PLASMA No comment entered. Ordering Provider: INEVES MUHAMMAD MD Report Released Date/Time: Dec 02, 2024 10:54 AM Reporting Lab: [place] [address] [address] [address] Performing Lab: [address] [address] TROPONIN I 0.058 ng/mL H 0-0.033 Dec 02, 2024 10:30 AM [facility] COMPREHENSIVE METABOLIC PANEL Specimen Type: PLASMA Comment: No hemolysis noted. Ordering Provider: NIEVES MUHAMMAD MD Report Released Date/Time: Dec 02, 2024 10:33 AM Reporting Lab: [address] [address] Performing Lab: [address] [address] CREATININE 9.62 mg/dL H 0.7-1.3 UREA NITROGEN [...] LL >60 Dec 02, 2024 10:30 AM [facility] CBC Specimen Type: BLOOD No comment entered. Ordering Provider: NIEVES MUHAMMAD MD Report Released Date/Time: Dec 02, 2024 10:33 AM Reporting Lab: [address] [address] Performing Lab: [address] [address] WBC 4.6 10*3/uL 3.6-11.2 RBC 3.71 10*6/uL [...] 10*3/uL 0.00-0.20 Dec 02, 2024 10:30 AM [facility] RESPIRATORY PCR PANEL Specimen Type: NASOPHARYNX Comment: [id number] Alert sent : Flu A typing only. The [employer] RP Panel combines nested multiplex PCR and [...] available to the clinician evaluating the patient. Fliptu Jesusita, (715) Ordering Provider: DEISY PURCELL Report Released Date/Time: Dec 02, 2024 11:50 AM Reporting Lab: [place] [address] Performing Lab: [place] [phone] *Adenovirus (BF) Not Detected Not Detected *Coronavirus [...] Detected COVID-19 (BIOFIRE) Not Detected Not Detected Vital Signs: All taken on the encounter date This section contains inpatient and outpatient Vital Signs collected on the date of the Encounter. Date/Time Temperature Pulse Blood Pressure Respiratory Rate SP02 Pain Height Weight Body Mass Index Source Dec 02, 2024 12:00 PM 68 158/75 12 99 [facility] Dec 02, 2024 11:00 AM 65 156/78 16 99 [facility] Dec 02, 2024 10:30 AM 98.1 63 157/78 18 8 [facility] Social History: Smoking Status (Most current) and Tobacco Use (All prior to encounter date) This section includes the most current, and the historical, smoking and tobacco- related health factors from the [place] facility where the Encounter took place. Current Smoking Status This section includes the most current smoking, or tobacco-related health factor, from the [place] facility where the Encounter took place. Date/Time Current Smoking Status Comment Ester itcamila Nov 24, 2024 10:31 AM VA-TOBACCO USE FOR [place] CIGARETTES [facility] Tobacco Use History This section includes a history of the smoking, or tobacco-related health factors, that were collected on or before the date of the Encounter. The data comes from the [place] facility where the Encounter took place. Date/Time Smoking Status/Tobacco Use Comment F acility Nov 24, 2024 10:31 AM VA-TOBACCO USE FOR [place] CIGARETTES [facility] Jun 21, 2023 01:14 PM ORYX ADMIT TOBACCO SCREEN NO [facility] Dec 12, 2022 04:00 PM ORYX ADMIT TOBACCO SCREEN NO [facility] Jun 25, 2022 03:24 PM VA-TOBACCO FORMER USER [facility] Jun 25, 2022 03:24 PM VA-TOBACCO QUIT 15 YRS OR MORE [facility] Dec 23, 2021 04:59 PM ORYX ADMIT TOBACCO SCREEN REFUSED [facility] May 24, 2020 11:27 PM ORYX ADMIT TOBACCO SCREEN NO [facility] Dec 12, 2019 10:24 AM VA-TOBACCO FORMER USER [facility] Dec 12, 2019 10:24 AM VA-TOBACCO QUIT 15 YRS OR MORE [facility] Aug 03, 2019 02:11 AM ORYX ADMIT TOBACCO SCREEN REFUSED [facility] Oct 12, 2018 01:14 AM QUIT TOBACCO >7 YEARS AGO [facility] Oct 11, 2018 03:33 PM ORYX ADMIT TOBACCO SCREEN NO [facility] Sep 07, 2018 09:13 PM ORYX ADMIT TOBACCO SCREEN NO [facility] Sep 07, 2018 07:52 PM QUIT TOBACCO >7 YEARS AGO [facility] Advance Directives: All historical and current Section Date Range: From patient's date of to the date document was created. This section includes ALL of a patient's completed or amended [place] Advance and Rescinded Directives. The entries below indicate that a directive exists for the patient, but an actual copy is not included with this document. The data comes from all [place] facilities. Date Advance Directives Provider Source Dec 17, 2022 ADVANCE DIRECTIVE BIJAN MERRITT [facility] Feb 09, 2020 ADVANCE DIRECTIVE DISCUSSION MELY LUCIANO [facility] Feb 02, 2018 ADVANCE DIRECTIVE BEAU ALTAMIRANO [facility] Nov 29, 2006 ADVANCE DIRECTIVE MARELY CHACON [facility] Radiology Reports: +/- 30 days of the [...] the Encounter. The data comes from all [place] treatment facilities. Date/Time Radiology Report Provider Source Dec 02, 2024 12:00 PM CHEST PORTABLE: NAGI KATZ [id number] -1955 M Exm Date: DEC 02, 2024@12:00 Req Phys: NIEVES MUHAMMAD MD Pat Loc: [facility]EMERGENCY DEPT 2ND SHIFT (R Img Loc: [facility]-MAIN RADIOLOGY SUITE Service: Unknown [address] [address] (Case [id number] COMPLETE) CHEST PORTABLE (RAD Detailed) CPT:67288 Proc Modifiers : Portable Reason for Study: cough Clinical History: Report Status: Verified Date Reported: DEC 02, 2024 Date Verified: DEC 02, 2024 Commercial Green Building Designer E-Sig:/ES/ED ORDONEZ Report: EXAM: CHEST PORTABLE COMPARISON: 01/07/2024. HISTORY: cough FINDINGS: The heart size and pulmonary vasculature are normal. There is no consolidating infiltrate, effusion or pneumothorax. Impression: No active lung disease. RR Primary Interpreting Staff: ED ORDONEZ, Staff Physician (Commercial Green Building Designer) /ED GREWAL [facility] Nov 15, 2024 07:[address] ABD PEL W/O CON T & 3D: GIANNANAGI De La Cruz [id number] [facility]-1955 M Exm Date: NOV 15, 2024@07:20 Req Phys: KIMBERLY PURCELL Loc: [facility]RE[facility] NP2 (Req'g Loc) Img Loc: -CT IMAGING Service: Unknown [address] [address] (Case [id number] COMPLETE) CT ABDOMEN AND PELVIS W/O CONTRAS(CT Detailed) CPT:57159 Reason for Study: to r/o abdominal wall hernia Clinical History: Responsible Attending: Dr. Ye Attending Contact Number: [phone] Resident Contact Number: To rule out abdominal wall hernia Allergies listed in CPRS chart: MORPHINE Creatinine:CREATININE 7.69 H mg/dL 02/09/2024 12:40 /eGFR: STL EGFR (within one year). CREATININE 7.69 mg/dL H (02/09/24 12:40) Wt: 226.8 lb [102.87 kg] (05/16/2024 14:10) History of: Renal failure, chronic or acute renal disease: YES Report Status: Verified Date Reported: NOV 15, 2024 Date Verified: NOV 15, 2024 Commercial Green Building Designer E-Sig:/EDWAR/JOSE BARRERA MD Report: Spiral axial imaging through [...] Primary Interpreting Staff: JOSE BARRERA MD, Radiologist (Commercial Green Building Designer) /JOSE YANG [facility] Encounter Notes: All associated encounter notes This section contains the clinical notes associated to the Encounter. Date/Time Encounter Note(s) Provider Source Dec 02, 2024 12:20 PM PHARMACY PROGRESS NOTE: LOCAL TITLE: [facility]Y [facility] STANDARD TITLE: PHARMACY PROGRESS NOTE DATE OF NOTE: DEC 02, 2024@12:20 ENTRY DATE: DEC 02, 2024@12:20:40 AUTHOR: AYESHA SAUCEDO EXP COSIGNER: URGENCY: STATUS: COMPLETED Patient presented to pharmacy and is requesting a new prescription for ATORVASTATIN CALCIUM 80MG TAB and MAGNESIUM OXIDE 400MG TAB. Please renew rx if appropriate. /edwar/ Ayesha Saucedo PharmD Pharmacist Signed: 12/02/2024 12:21 Receipt Acknowledged By: 12/03/2024 16:42 /dewar/ BLU MARTE Staff Physician AYESHA SAUCEDO [facility]
--- OUTSIDE RECORDS SUMMARY | 2024-12-05 00:22 | XMS_ITS | Clinical Summary ---
Author Organization [facility] Address [address] [place] [address] Care Team Providers Care Emt/Paramedic Name Role Phone Thao Mcqueen Primary Care Provider Unavailab le Source Comments [facility],non-owned Affiliates and Associated Physician Practices is amultiple site organization consisting of ambulatory clinics and hospital sitesin [place], [place], [place] and [place]. This disclosure is being madepursuant to the Care Everywhere program and may not contain all information available regarding this patient. Last updated 18.[facility] Allergies Active Allergy Reactions Criticality Noted Date [...] 11/18/24 Fibroscan CAP 260, LSM 3.7 kPa intermediate (current) use of anticoagulants 2024 ESRD (end stage renal disease) 10/24/2024 Dependence on renal dialysis 10/24/2024 Pre-kidney transplant, listed 10/24/2024 Atrial fibrillation, unspecified type 10/24/2024 Hypertension, unspecified type 10/24/2024 Type 2 diabetes mellitus wit h other kidney complication, 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 group home insulin use 10/24/2024 Hypertension 10/19/2024 Type 2 [...] were not included. Kemal Cali 1955 Referring Monitor Worker: Angela Augustin Listing Date: 12/30/2023 Dialysis Info: [...] CT ALERTS: Listed for Hep C kidneys Marketing Secretary: through [facility] CKD r/t DM2 and [...] surgical records from Dr. Veloz at [facility] in [place] with respect to the laparotomy, lysis of [...] thanks for the referral. Ban Alfaro MD territory sales manager medical Transplant & HPB Surgery Transplant Surgery Clinic [...] Lt heart Cath and cardiology appointment at [facility] for A. Fib./Abelation, iRBBB and Lt Anterior [...] followup in PRN. Wendy Ordoñez PA-C Physician Lining Brusher in Internal Medicine Sampson Holloway MD Professor of Internal Medicine No orders of the defined types were placed in this encounter. Cardiology: 10/17/2024 Assessment 1. Pre-kidney transplant, listed 2. 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) 3. ESRD (end stage renal disease) (HCC) 4. Hypertension, unspecified type 5. Type 2 diabetes mellitus with other kidney complication, 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 group home insulin use (HCC) 6. Atrial fibrillation, unspecified [...] of the time was also spent in [id number] interaction with the patient as well as formulating a plan for management. Thank you for allowing us to participate in the care of your patient and please do not hesitate to reach out to us if any questions or concerns. Robert Roper MD MPH Cardiology Dr Khanan: 01/19/2024 Attestation signed by Jennifer Khanna MD [...] pre-kidney transplant evaluation. - Case request for [facility] placed - Follow up after [facility] completed Please note, recommendations are not final until attested/co-signed by the attending physician. Thank you for your consultation, please do not hesitate to contact us with any questions or concerns. Daniel Lay MD Cardiovascular Diseases Fellow PGY-4 [facility] Cardiology: 12/12/2022 (consult from ED visit) [facility]: 02/12/2022 [facility]iology: 03/19/2021 Pertinent Previous Committee Presentations: 11/24/2024 [...] mg/kg Committee Discussion Details: Pt brought to [facility] to discuss possible listing. -Reviewed PMH [...] and ascending aorta. Pericardium No pericardial effusion. [facility]: 03/03/2024 Conclusion The coronary vessels are normal. [...] or text me on my cell phone [phone]. I appreciate the opportunity to participate in the care of your patient and look forward to being of service in the future as well. Sincerely, Kristel White MD, PhD, [facility] Grocery Clerk Checkingpatrol captain CXR: 08/05/2024 Findings/Impression: . No focal consolidation, [...] suggestion of sludge on EUS. Findings: The tank worker film was normal. The esophagus was successfully [...] stent, this can be done at the [facility]. - Please avoid NSAIDs (i.e Motrin, Aleve, [...] remain persistently elevated. - [facility] - Discussed results with Dr. Chappell. Please followup with him at the [facility] - Return to primary care physician as previously scheduled. - In the unusual situation that you develop abdominal pain, bleeding or other significant problems in the days following this procedure please call my office at [phone] to speak to my nurses. After hours and evenings please call [phone] and speak to the GI fellow workers compensation legal secretary. Please tell them that Dr. Freeman did [...] this procedure please call my office at [phone] to speak to my nurses. After hours and evenings please call [phone] and speak to the GI fellow workers compensation legal secretary. Please tell them that Dr. Freeman did [...] Impression: It is the impression of this mental health social worker that Kemal Cali has several positive factors for Kidney transplant candidacy from a psychosocial perspective. Patient appears to have appropriate knowledge of illness. Patient has sufficient insurance coverage and stable financial situation for post transplant needs. No concerns regarding substance abuse, legal issues, or mental health needs. Patient has adequate support system and appropriate discharge plan. Send financial assistance resources to email [email or web address] Moving to [address] [place] [address] Plan: fat purification worker to provide supportive services as needed. Patient remains a reasonable candidate for transplant from a psychosocial perspective. Psychiatric Consult Recommended: No Transplant Clinical Cytogenetics Director: Cesilia Rivera LMSW Abdominal Transplant Clinical Cytogenetics Director [phone] 2023 Caregivers: Primary is brother Nahum, Pt states He has a lot of options re:secondary. Took the CUSTOMER ORDER CLERK forms to complete and return Call from pts ex- Lynnette who confirmed as a willing caregiver. She will return the forms matt. Answered questions about living donation and she requested the website to be sent to her email at [email or web address] : 11/23/2024 Transplant Nutrition Evaluation BMI: Body [...] (10/19/2024): Added automatically from request for surgery [id number] Resolved Problems Problem Noted Date Diagnosed Date Resolved Date CKD (chronic kidney disease) stage 5, GFR less than 15 ml/min 10/19/2024 Encounters Date Type Department Care Team Description 11/24/2024 Telephone [facility] TRANSPLANT [address] [place] [phone] Antonette Hill, RN Kidney Transplant Evaluation 11/22/2024 Telephone [facility] TRANSPL[facility] [address] [place] [phone] Maral Valdivia CPC Kidney Transplant Evaluation 11/18/2024 11:00 AM AUDIOVISUAL AIDS TECHNICIAN Procedure visit [facility] - GI [address] [place] [phone] Dell Mcmillan MD NAFLD (nonalcoholic fatty liver disease) 11/18/2024 11:00 AM AUDIOVISUAL AIDS TECHNICIAN Office Visit [facility] - [address] [phone] Wendy Ordoñez PA-C Pre-transplant evaluation for kidney transplant (Primary Dx); ESRD (end stage renal disease) (HCC) 11/18/2024 Travel 11/17/2024 Telephone [facility] TRANSPLANT [address] [place] [phone] Antonette Hill RN Kidney Transplant Evaluation 10/25/2024 Orders Only [facility] Anticoagulation - Clinical Pharmacy [address] [place] [address] Radha Roper MD intermediate (current) use of anticoagulants ; Atrial fibrillation, unspecified type (HCC) 10/19/2024 2:30 PM AUDIOVISUAL AIDS TECHNICIAN Office Visit [facility] - GI [address] [place] [phone] Ravi Evans III, MD Obesity, Class I, BMI 30-34.9 (Primary Dx); Type 2 diabetes mellitus with other specified complication, 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 moth exterminator insulin use (HCC); Metabolic syndrome; Neuropathy 10/19/2024 Travel 10/17/2024 10:20 AM AUDIOVISUAL AIDS TECHNICIAN Video Visit [facility] - Cardiology [address] [facility] [address] [place] [phone] Ban Alfaro MD Arora, Shilpkumar, MD Pre-kidney transplant, listed ; 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); ESRD (end stage renal disease) (HCC); Hypertension, unspecified type; Type 2 diabetes mellitus with other kidney complication, 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 group home insulin use (HCC); Atrial fibrillation, unspecified type ([facility]) 10/17/2024 Telephone [facility] TRANSPLANT [address] [place] [phone] Maral Valdivia CPC Kidney Transplant [...] Comments Blood Pressure 127/55 11/18/2024 10:39 AM AUDIOVISUAL AIDS TECHNICIAN Pulse 57 11/18/2024 10:39 AM AUDIOVISUAL AIDS TECHNICIAN Temperature 36.5 C (97.7 F) 11/18/2024 10:39 AM AUDIOVISUAL AIDS TECHNICIAN Respiratory Rate 20 08/22/2024 9:01 AM AUDIOVISUAL AIDS TECHNICIAN Oxygen Saturation 100% 11/18/2024 10: 39 AM AUDIOVISUAL AIDS TECHNICIAN Inhaled Oxygen Concentration - - Weight 100.2 kg (220 lb 14.4 oz) 2024 10:00 AM AUDIOVISUAL AIDS TECHNICIAN Stated Height 176.5 cm (5' 9.5 ) 11/23/2024 10 :00 AM AUDIOVISUAL AIDS TECHNICIAN Body Mass Index 32.15 11/23/2024 10:00 AM AUDIOVISUAL AIDS TECHNICIAN Plan of Treatment Upcoming Encounters Date Type Department Care Team (Late st Contact Info) Description 02/16/2025 1:30 PM CDT Office Visit [facility] - GI [address] [facility] [place] [phone] Ravi Evans III, MD [address] [facility] [address] [place] [phone] 10/16/2025 10:20 AM AUDIOVISUAL AIDS TECHNICIAN Office Visit [facility] - Cardiology [address] [facility] [address] [place] [phone] Radha Roper MD [address] [facility] DIV OF CARDIOLOGY [address] [place] [address] Health Maintenance Due Date Last Done Comments [...] < 140/90 Blood Pressure 127/55(2024 10:39 AM AUDIOVISUAL AIDS TECHNICIAN) Antonette Zheng zipper trimmer hand Management General On track( 025 10:37 AM AUDIOVISUAL AIDS TECHNICIAN) No Victor Hugo Vergara, RICHARD Note: Expected end date: ongoing Interventions: Take all medications as prescribed Let your doctor know right away about any changes in your medications Make sure to request a refill of your medication at least one week prior to your last dose Medical Devices Implanted Type Area Ar Manager Device Identifier Shelf Expiration Date Model / Serial / Lot Prosthesis-07/12 Implanted:07/25 (Quantity not on file) Prosthesis Penile Prosthesis Description:Coloplast Titan 22 Penile implant and reservoir Procedures Procedure Name Priority Date/Time Associated Diagnosis Comments SC LIVER ELASTOGRAPHY Routine 11/18/2024 10:22 AM AUDIOVISUAL AIDS TECHNICIAN Pre-kidney transplant, 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) ESRD (end stage renal disease) (HCC) Hypertension, unspecified type Type 2 diabetes mellitus with other kidney complication, 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 moth exterminator insulin use (HCC) HEPATITIS C ANTIBODY Routine [...] Recently Relevant to Health Maintenance Results * SC LIVER ELASTOGRAPHY (11/18/2024 10:22 AM AUDIOVISUAL AIDS TECHNICIAN) Narrative Dell Mcmillan MD - 11/18/2024 10:22 AM AUDIOVISUAL AIDS TECHNICIAN Dell Mcmillan MD 11/21/2024 4:11 PM Diagnosis: [...] of liver-related events. J Hepatol (2021) 76: 0108-4796. Kelly PJ, Luis M, Alzia M, et al. Accuracy of FibroScan controlled attenuation parameter and liver stiffness measurement in assessing steatosis and fibrosis in patients with nonalcoholic fatty liver disease. Gastroenterology 2019;156:1234-1848. Jose MS, Kev R, Van Natta ML, [...] at-risk nonalcoholic steatohepatitis (MARTIN) in a [place] cohort and comparison to other non-invasive algorithms. PLoS ONE (2021) 17: [id number]. Sheldon AJ, James J, Younyolanda ZM, et al. Enhanced diagnosis of advanced fibrosis and cirrhosis in individuals with NAFLD using FibroScan-based Agile scores. J Hepatol (2022) 78: 247-259. Cindy et al. Vibration-controlled transient elastography scores to predict liver-related events in steatotic liver disease. OLIVIA (2023) 331: 1362-3638 Fibroscan LSM can also be used with laboratory parameters without formulas to assess prognosis. According to the Baveno-VII criteria (Dave, 202), Fibroscan LSM <=15 kPa plus a platelet count of >=191r532/L rules out clinically significant portal hypertension (sensitivity and negative predictive value >90%) in patients with compensated advanced chronic liver disease. Valerio Prasad J, Heike G, Talita T, Hal Valenzuela on behalf of the [facility] VII Faculty. [facility]--Renewing consensus in portal hypertension. J Hepatol (2021) 76: 959-974 Assessing the likelihood of advanced fibrosis in patients with intermediate liver stiffness measurement (LSM) by Fibroscan (e.g., 8-15 kPa) can be improved by also calculating the FIB-4 score (Tosine et al. Hepatology Communications 2019;3:3660-7947) or NAFLD Fibrosis score (Santa et al. Clinical Gastroenterology and Hepatology 2019;17:3338-1104 using routine clinical data. Notes: 1. Fibroscan [...] additional interpretive data was last updated 10/14/24.) [email or web address] Ban Alfaro MD PROCEDURE/MINOR SURGICAL ORDERABLES * HEMOGLOBIN A1C (08/05/2024 1:40 PM CDT) Pathologist [facility] Hemoglobin A1c 5.5 <=5.6 % 08/06/2024 8:52 AM CDT [facility] Estimated Average Glucose 111 mg/dL 08/06/2024 8:52 AM CDT [facility] Comment: HbA1c Interpretation: Normal : < 5.7% Pre-diabetes: 5.7-6.4% Diabetes: Equal to or greater than 6.5% Test results diagnostic of diabetes should be repeated for confirmation. Treatment target values recommended by ADA and other clinical organizations should be used to evaluate metabolic control in patients. Reference: [place] Diabetes Association, Standards of Care in Diabetes [...] Engel MD LAB - CHEMISTR Y ORDERABLES [facility] [address] [place] [id number], [facility] [phone] * HEPATITIS C ANTIBODY (08/05/2024 1:40 PM CDT) Pathologist [facility] Hepatitis C Antibody Non-react xavier Non-reac tive 08/05/2024 3:14 PM CDT [facility] Comment:Hepatitis C Antibody screen indicates no [...] Engel MD LAB - CHEMISTR Y ORDERABLES [facility] [address] [place] [address], [facility] [phone] from Last 3 Months or Most Recently Relevant to Health Maintenance Advance Directives * Full Code (Latest Code Status on File) Date Activated Date Inactivated Comments 03/02/2024 5:32 PM 03/02/2024 9:52 PM * Full Code Date Activated Date Inactivated Comments 01/28/2020 7:33 AM 02/03/2020 3:16 PM Care Teams Emt/Paramedic Relationship Specialty Start Date End Date Thao Mcqueen Update Information PCP - General 08/22/24
--- OUTSIDE RECORDS SUMMARY | 2024-12-05 00:22 | XMS_ITS | Encounter Summary ---
Author Name [facility] [place] [facility] Address [address] [place] [address] Care Team Providers Care Educational Technology Specialist Name Role Phone ERIKA DEE Primary Care [...] PART A Jul 12, 2019 PART A [id number] PRASANNA KATZ PATIENT MEDICARE (WNR) MEDICARE (M) PART A Jul 12, 2019 PART A [id number] [phone] PRASANNA KATZ PATIENT Selected Encounter This section includes the information on record at [place] for the Encounter. Date/Time Encounter Type Encounter Description Reason Provider Source Oct 07, 2024 02:04 PM Outpatient Encounter COMMUNITY CARE CONSULT JOSELYN MARX Encounter Template Text not used by [facility] [...] Appointment Type Appointme nt Facility Name Nov 29, 2024 10:30 AM [facility]ATORY - [facility] Dec 12, 2024 03:00 PM AMB[facility]ATORY - SURGERY [facility] Mar 20, 2025 10:30 AM AMBULATORY - MEDICINE [facility] Social History: Smoking Status (Most current) and [...] took place. Date/Time Current Smoking Status Comment Facil ity Jun 21, 2023 01:14 PM ORYX ADMIT TOBACCO SCREEN NO [facility] Tobacco Use History This section includes a history of the smoking, or tobacco-related health factors, that were collected on or before the date of the Encounter. The data comes from the [place] facility where the Encounter took place. Date/Time Smoking Status/Tobacco Use Comment F acility Dec 12, 2022 04:00 PM ORYX ADMIT TOBACCO SCREEN NO [facility] Jun 25, 2022 03:24 PM VA-TOBACCO FORMER USER [facility] Jun 25, 2022 03:24 PM VA-TOBACCO QUIT 15 YRS OR MORE [facility] Dec 23, 2021 04:59 PM [facility]YX ADMIT TOBACCO SCREEN REFUSED [facility] May 24, 2020 11:27 PM [facility]YX ADMIT TOBACCO SCREEN NO [facility] Dec 12, 2019 10:24 AM VA-TOBACCO FORMER USER [facility] Dec 12, 2019 10:24 AM VA-TOBACCO QUIT 15 YRS OR MORE [facility] Aug 03, 2019 02:11 AM [facility]YX ADMIT TOBACCO SCREEN REFUSED [facility] Oct 12, 2018 01:14 AM QUIT TOBACCO >7 YEARS AGO [facility] Oct 11, 2018 03:33 PM ORYX ADMIT TOBACCO SCREEN NO [facility] Sep 07, 2018 09:13 PM ORYX ADMIT TOBACCO SCREEN NO [facility] Sep 07, 2018 07:52 PM QUIT TOBACCO >7 YEARS AGO [facility] Advance Directives: All historical and current Section [...] Dec 17, 2022 ADVANCE DIRECTIVE BIJAN MERRITT [facility] Feb 09, 2020 ADVANCE DIRECTIVE DISCUSSION MELY LUCIANO [facility] Feb 02, 2018 ADVANCE DIRECTIVE BEAU ALTAMIRANO [facility] Nov 29, 2006 ADVANCE DIRECTIVE MARELY CHACON [facility] Encounter Notes: All associated encounter notes This section contains the clinical notes associated to the Encounter. Date/Time Encounter Note(s) Provider Source Oct 07, 2024 02:04 PM NONVA NOTE: LOCAL TITLE: COMMUNITY CARE-CARE COORDINATION PLAN NOTE [address] TITLE: NONVA NOTE DATE OF NOTE: OCT 07, 2024@14:04 ENTRY DATE: OCT 07, 2024@14:05:09 AUTHOR: JOSELYN MARX EXP COSIGNER: URGENCY: STATUS: COMPLETED COMMUNITY CARE-CARE COORDINATION PLAN NOTE [address] Has ADDENDA Care Coordination Follow Up Level of Care Coordination Complex/Chronic Care Coordination was determined from: Chart Review Services: Moderate Care Coordination Services Case Management, if appropriate Direct communications with interdisciplinary team Plan: Clinical notes recvd from DOS [id number] Sleep study [id number] CPAP titration 09-12-24 PSG study report CONTACT Martin contacted on Sep to discuss PSG and CPAP titration .SPoke with 's Kassy. States is finally wearing his CPAP. But is starting to get better, however he is still use to sleeping and being compliant with machine. had questions about whether or not he needed the water in his machine. Informed her to contact RESP department . States he is have some congestion. Action Needed? Yes Resp therapy will need to contact . /edwar/ JOSELYN MARX RN REGISTERED NURSE Signed: 10/07/2024 14:18 Receipt Acknowledged By: 10/10/2024 08:13 /edwar/ Linda Franco DNP, MAIL LIST PROCESSOR, SYRUP MACHINE LABORER-C Primary Care Nurse Practitioner for BL[facility] ESTUARDO 10/10/2024 07:57 /patrice GUZMAN Respiratory Therapist 10/10/2024 ADDENDUM STATUS: COMPLETED Contacted patient's and answered CPAP questions. /patrice GUZMAN Respiratory Therapist Signed: 10/10/2024 08:04 JOSELYN MARX [facility]
--- OUTSIDE RECORDS SUMMARY | 2024-12-05 00:22 | XMS_ITS | Encounter Summary ---
Author Name [facility] [place] [facility] [place] [facility] [place] Address [address] [place] [address] Care Team Providers Care Manager Of Investigations Name Role Phone ERIKA DEE Primary Care [...] PART A Jul 12, 2019 PART A [id number] PRASANNA KATZ PATIENT MEDICARE (WNR) MEDICARE (M) PART A Jul 12, 2019 PART A [id number] [phone] PRASANNA KATZ PATIENT Selected Encounter This section includes the information on record at [place] for the Encounter. Date/Time Encounter Type Encounter Description Reason Provider Source Feb 06, 2024 12:30 PM COMB ART/VENOUS BLOOD TUBING ASSISTED HEMODIALYSIS ICD-10-CM N18.6 End stage renal disease [facility] ABRAMS Encounter Template Text not used by [facility] Assessments - Encounter Diagnoses This section includes the primary and secondary diagnoses documented for the Encounter. Date/Time Primary/Secondary Diagnosis Diagnosis Name Provider Source Feb 06, 2024 03:45 PM PRIMARY End stage renal disease [facility] Feb 06, 2024 03:45 PM PRIMARY End stage renal disease [facility] Plan of Treatment: Future Appointments (+ 6 months) and Future Tests (+/- 45 days) The Plan of Treatment section includes future care activities for the [facility] [place] [facility] This section includes future appointments and future orders which are active, pending or scheduled. Future Appointments This section includes appointments that were scheduled to occur 6 months from the date of the Encounter, up to a maximum of 20 appointments. The data comes from all [place] treatment facilities. Appointment Date/Time Appointment Type Appointme nt Facility Name Feb 09, 2024 12:30 PM [facility] February 11, 2024 12:30 PM [facility] February 13, 2024 12:30 PM [facility] February 15, 2024 08:00 AM AMBULATORY - NONE [facility] February 15, 2024 08:30 AM [facility] Apr 05, 2024 09:30 AM [facility] Apr 27, 2024 07:30 AM AM[facility]ATORY - SURGERY . [facility] May 02, 2024 08:00 AM AMBULATORY - NONE [facility] May 02, 2024 08:30 AM AMBULATORY - MEDICINE [facility] May 16, 2024 02:00 PM AM[facility]UL[facility]ORY - [facility]INE . [facility] Jul 12, 2024 08:00 AM AMBULATORY - NONE [facility] Jul 12, 2024 08:30 AM [facility] Lab Results: +/- 30 days of the encounter This section includes the Chemistry and Hematology Lab Results on record with [place] for the patient. Radiology Reports and Pathology Reports are provided separately, in subsequent sections. Lab Results This section contains the Chemistry/Hematology Results that were resulted 30 days before or 30 daysafter the date of the Encounter. Date/Time Source Result Type Result - Unit Interpretation Reference Range Comment Feb 09, 2024 12:40 PM [facility] HEP B CORE AB TOTAL. (STL) Specimen Type: SERUM No comment entered. Ordering Provider: CHENG PURCELL Report Released Date/Time: Feb 09, 2024 10:43 AM Reporting Lab: [address] [address] Performing Lab: [address] [address] HEP B CORE AB TOTAL. (STL) Nonreactive Nonreactive Feb 09, 2024 12:40 PM [facility] HEP HB S Ag ([place]) (STL) Specimen Type: SERUM No comment entered. Ordering Provider: CHENG PURCELL Report Released Date/Time: Feb 09, 2024 10:43 AM Reporting Lab: [address] [address] Performing Lab: [address] [address] HEP HB S Ag ([place]) (STL) Nonreactive Nonreactive Feb 09, 2024 12:40 PM [facility] HEPATITIS B SURFACE AB PNL Specimen Type: SERUM No comment entered. Ordering Provider: CHENG PURCELL Report Released Date/Time: Feb 09, 2024 10:43 AM Reporting Lab: [address] [address] Performing Lab: [address] [address] HEP B Surface Ab-HBsAB (L) REACTIVE m[IU]/mL Nonreactive HEP Bs AB-QUANT (L) 79.36 m[IU]/mL Feb 09, 2024 12:40 PM [facility] RENAL PANEL Specimen Type: PLASMA Comment: No hemolysis noted. Ordering Provider: CHENG PURCELL Report Released Date/Time: Feb 04, 2024 03:20 PM Reporting Lab: [place] [address] Performing Lab: [facility] [address] [facility] [address] CREATININE 7.69 mg/dL H 0.7-1.3 UREA NITROGEN 52.2 mg/dL H 9.0-25.0 GLUCOSE 147 mg/dL H 72-99 SODIUM 142 meq/L 136-145 POTASSIUM 4.1 meq/L 3.5-5 CHLORIDE 107 meq/L 98-107 CARBON DIOXIDE 22 meq/L 22-31 CALCIUM 10.2 mg/dL 8.4-10.4 PHOSPHOROUS 3.7 mg/dL 2.3-4.7 ALBUMIN 3.7 g/dL 3.4-5 EGFR (CKD-EPI 2020) 7.1 LL >60 Feb 09, 2024 12:40 PM [facility] CBC Specimen Type: BLOOD No comment entered. Ordering Provider: CHENG PURCELL Report Released Date/Time: Feb 04, 2024 03:20 PM Reporting Lab: [address] [address] Performing Lab: [address] [address] WBC 9.7 10*3/uL 3.6-11.2 RBC 3.09 10*6/uL [...] 0.00-0.60 BASOPHILS, ABSOLUTE 0.02 10*3/uL 0.00-0.20 Feb 04, 2024 05:00 PM [facility] URR-POST PANEL (STL) Specimen Type: PLASMA No comment entered. Ordering Provider: CHENG PURCELL Report Released Date/Time: Feb 04, 2024 01:42 PM Reporting Lab: [address] [address] Performing Lab: [address] [address] BUN-POST DIALYSIS 16.2 mg/dL 9.0-25.0 URR (STL) 70.4 67.0-100.0 Feb 04, 2024 12:45 PM [facility] RENAL PANEL Specimen Type: PLASMA Comment: No hemolysis noted. Ordering Provider: CHENG PURCELL Report Released Date/Time: Feb 04, 2024 01:42 PM Reporting Lab: [address] [address] Performing Lab: [address] [address] CREATININE 6.97 mg/dL H 0.7-1.3 UREA NITROGEN 54.7 mg/dL H 9.0-25.0 GLUCOSE 134 mg/dL H 72-99 SODIUM 142 meq/L 136-145 POTASSIUM 4.0 meq/L 3.5-5 CHLORIDE 105 meq/L 98-107 CARBON DIOXIDE 24 meq/L 22-31 CALCIUM 9.7 mg/dL 8.4-10.4 PHOSPHOROUS 4.8 mg/dL H 2.3-4.7 ALBUMIN 3.9 g/dL 3.4-5 EGFR (CKD-EPI 2020) 7.9 LL >60 Feb 02, 2024 04:30 PM [facility] URR-POST PANEL (STL) Specimen Type: PLASMA No comment entered. Ordering Provider: CHENG PURCELL Report Released Date/Time: Feb 02, 2024 03:39 PM Reporting Lab: [address] [place] [address] Performing Lab: [facility] [address] [facility] [address] BUN-POST DIALYSIS 22.9 mg/dL 9.0-25.0 URR (STL) 60.9 L 67.0-100.0 Feb 02, 2024 11:50 AM [facility] RENAL PANEL Specimen Type: PLASMA Comment: No hemolysis noted. Ordering Provider: CHENG PURCELL Report Released Date/Time: Feb 02, 2024 07:35 AM Reporting Lab: [facility] [address] [facility] [address] Performing Lab: [address] [address] CREATININE 8.34 mg/dL H 0.7-1.3 UREA NITROGEN 58.6 mg/dL H 9.0-25.0 GLUCOSE 169 mg/dL H 72-99 SODIUM 142 meq/L 136-145 POTASSIUM 4.6 meq/L 3.5-5 CHLORIDE 111 meq/L H 98-107 CARBON DIOXIDE 20 meq/L L 22-31 CALCIUM 9.2 mg/dL 8.4-10.4 PHOSPHOROUS 3.6 mg/dL 2.3-4.7 ALBUMIN 3.7 g/dL 3.4-5 EGFR (CKD-EPI 2020) 6.4 LL >60 Feb 01, 2024 11:00 PM [facility] 24H UR CHEM PANEL (STL) Specimen Type: 24-HOUR URINE No comment entered. Ordering Provider: CHENG PURCELL Report Released Date/Time: Jan 28, 2024 04:55 PM Reporting Lab: [facility] [address] [facility] [address] Performing Lab: [address] [address] VOLUME 3289 mL SODIUM 24-HOUR URINE 226.941 H 40-220 POTASSIUM 24-HOUR URINE 35.8501 25-125 CHLORIDE 24-HOUR URINE 171.028 110-250 PROTEIN 24-HOUR URINE 1986.556 H 0-299.9 CREATININE 24-HOUR URINE [phone] Jan 28, 2024 05:29 PM [facility] CBC Specimen Type: BLOOD No comment entered. Ordering Provider: CHENG PURCELL Report Released Date/Time: Jan 28, 2024 05:07 PM Reporting Lab: [address] [address] Performing Lab: [address] [address] WBC 8.9 10*3/uL 3.6-11.2 RBC 2.96 10*6/uL [...] 10*3/uL 0.00-0.20 Jan 26, 2024 01:00 PM [facility] PTH, INTACT (STL) Specimen Type: SERUM No comment entered. Ordering Provider: CHENG PURCELL Report Released Date/Time: Jan 21, 2024 03:14 PM Reporting Lab: [address] [address] Performing Lab: [address] [address] PTH, INTACT (STL) 141.40 pg/mL H 8.7-77.7 Jan 26, 2024 01:00 PM [facility] IRON/TIBC PROFILE Specimen Type: SERUM No comment entered. Ordering Provider: CHENG PURCELL Report Released Date/Time: Jan 21, 2024 03:14 PM Reporting Lab: [address] [address] Performing Lab: [address] [address] TIBC 225 ug/dL L 250-450 TRANSFERRIN 180 mg/dL 163-344 IRON SATURATION 23 20-50 IRON 52 ug/dL L 65-175 Jan 26, 2024 01:00 PM [facility] FERRITIN Specimen Type: SERUM No comment entered. Ordering Provider: CHENG PURCELL Report Released Date/Time: Jan 21, 2024 03:14 PM Reporting Lab: [address] [address] Performing Lab: [address] [address] FERRITIN 118.78 ng/mL 22-275 Jan 26, 2024 01:00 PM [facility] RENAL PANEL Specimen Type: PLASMA Comment: No hemolysis noted. Ordering Provider: CHENG PURCELL Report Released Date/Time: Jan 21, 2024 03:14 PM Reporting Lab: [address] [address] Performing Lab: [address] [address] CREATININE 8.25 mg/dL H 0.7-1.3 UREA NITROGEN 63.1 mg/dL H 9.0-25.0 GLUCOSE 157 mg/dL H 72-99 SODIUM 137 meq/L 136-145 POTASSIUM 4.2 meq/L 3.5-5 CHLORIDE 100 meq/L 98-107 CARBON DIOXIDE 26 meq/L 22-31 CALCIUM 9.6 mg/dL 8.4-10.4 PHOSPHOROUS 4.9 mg/dL H 2.3-4.7 ALBUMIN 3.7 g/dL 3.4-5 EGFR (CKD-EPI 2020) 6.5 LL >60 Jan 26, 2024 01:00 PM [facility] CBC Specimen Type: BLOOD No comment entered. Ordering Provider: CHENG PURCELL Report Released Date/Time: Jan 21, 2024 03:14 PM Reporting Lab: [facility] [address] [place] [address] Performing Lab: [facility] [address] [place] [address] WBC 7.8 10*3/uL 3.6-11.2 RBC 2.95 10*6/uL [...] 10*3/uL 0.00-0.20 Jan 21, 2024 12:55 PM [facility] PT/INR NEW (STL-MA) Specimen Type: PLASMA No comment entered. Ordering Provider: CHENG PURCELL Report Released Date/Time: Jan 21, 2024 12:43 PM Reporting Lab: [address] [address] Performing Lab: [address] [address] PROTIME 15.9 s H 9.4-12.5 INR VALUE 1.4 {INR} Jan 21, 2024 12:55 PM [facility] RENAL PANEL Specimen Type: PLASMA Comment: No hemolysis noted. Ordering Provider: CHENG PURCELL Report Released Date/Time: Jan 21, 2024 12:41 PM Reporting Lab: [address] [address] Performing Lab: [address] [address] CREATININE 8.11 mg/dL H 0.7-1.3 UREA NITROGEN 82.6 mg/dL H 9.0-25.0 GLUCOSE 114 mg/dL H 72-99 SODIUM 139 meq/L 136-145 POTASSIUM 5.1 meq/L H 3.5-5 CHLORIDE 109 meq/L H 98-107 CARBON DIOXIDE 19 meq/L L 22-31 CALCIUM 9.3 mg/dL 8.4-10.4 PHOSPHOROUS 4.1 mg/dL 2.3-4.7 ALBUMIN 3.8 g/dL 3.4-5 EGFR (CKD-EPI 2020) 6.6 LL >60 Jan 14, 2024 11:55 AM [facility] RENAL PANEL Specimen Type: PLASMA Comment: No hemolysis noted. Ordering Provider: CHENG PURCELL Report Released Date/Time: Jan 13, 2024 07:58 AM Reporting Lab: [address] [address] Performing Lab: [address] [address] CREATININE 8.05 mg/dL H 0.7-1.3 UREA NITROGEN 70.7 mg/dL H 9.0-25.0 GLUCOSE 155 mg/dL H 72-99 SODIUM 140 meq/L 136-145 POTASSIUM 5.1 meq/L H 3.5-5 CHLORIDE 107 meq/L 98-107 CARBON DIOXIDE 21 meq/L L 22-31 CALCIUM 9.6 mg/dL 8.4-10.4 PHOSPHOROUS 4.8 mg/dL H 2.3-4.7 ALBUMIN 4.1 g/dL 3.4-5 EGFR (CKD-EPI 2020) 6.7 LL >60 Jan 11, 2024 11:36 AM [facility] GLUCOSE,BLOOD-poct (STL) Specimen Type: BLOOD Comment: Test Performed by: [id number] Meter #: [id number] Ordering Provider: LIDIA HUYNH Report Released Date/Time: Jan 11, 2024 11:50 AM Reporting Lab: [address] [address] Performing Lab: [address] [address] GLUCOSE,BLOOD -poct (STL) 106 mg/dL H -Jan 11, 2024 11:07 AM [facility] GLUCOSE,BLOOD-poct (STL) Specimen Type: BLOOD Comment: Test Performed by: [id number] Meter #: [id number] Ordering Provider: LINOMED Report Released Date/Time: Jan 11, 2024 11:18 AM Reporting Lab: [address] [address] Performing Lab: [address] [address] GLUCOSE,BLOOD -poct (STL) 109 mg/dL H -Jan 11, 2024 05:12 AM [facility] GLUCOSE,BLOOD-poct (STL) Specimen Type: BLOOD Comment: Test Performed by: [id number] Meter #: [id number] Ordering Provider: LINOMED Report Released Date/Time: Jan 11, 2024 05:25 AM Reporting Lab: [address] [address] Performing Lab: [address] [address] GLUCOSE,BLOOD -poct (STL) 88 mg/dL -Jan 10, 2024 08:19 PM [facility] GLUCOSE,BLOOD-poct (STL) Specimen Type: BLOOD Comment: Test Performed by: [id number] Meter #: [id number] Ordering Provider: LINO,MED Report Released Date/Time: Jan 10, 2024 08:31 PM Reporting Lab: [place] [address] [facility] [address] Performing Lab: [place] [address] [facility] [address] GLUCOSE,BLOOD -poct (STL) 153 mg/dL H 72-99 Jan 10, 2024 04:15 PM [facility] GLUCOSE,BLOOD-poct (STL) Specimen Type: BLOOD Comment: Test Performed by: [id number] Meter #: [id number] Ordering Provider: LINOMED Report Released Date/Time: Jan 10, 2024 05:05 PM Reporting Lab: [address] [address] Performing Lab: [address] [address] GLUCOSE,BLOOD -poct (STL) 84 mg/dL 72-99 Jan 10, 2024 11:31 AM [facility] GLUCOSE,BLOOD-poct (STL) Specimen Type: BLOOD Comment: Test Performed by: [id number] Meter #: [id number] Ordering Provider: LIDIA HUYNH Report Released Date/Time: Jan 10, 2024 12:03 PM Reporting Lab: [place] [address] [facility] [address] Performing Lab: [place] [address] [facility] [address] GLUCOSE,BLOOD -poct (STL) 99 mg/dL 72-99 Jan 10, 2024 04:45 AM [facility] GLUCOSE,BLOOD-poct (STL) Specimen Type: BLOOD Comment: Test Performed by: [id number] Meter #: [id number] Ordering Provider: LIDIA HUYNH Report Released Date/Time: Jan 10, 2024 05:29 AM Reporting Lab: [address] [address] Performing Lab: [place] [address] [facility] [address] GLUCOSE,BLOOD -poct (STL) 109 mg/dL H 72-99 Jan 09, 2024 08:08 PM [facility] GLUCOSE,BLOOD-poct (STL) Specimen Type: BLOOD Comment: Test Performed by: [id number] Meter #: [id number] Ordering Provider: LIDIA HUYNH Report Released Date/Time: Jan 09, 2024 08:28 PM Reporting Lab: [place] [address] [facility] [address] Performing Lab: [place] [address] [facility] [address] GLUCOSE,BLOOD -poct (STL) 110 mg/dL H 72-Jan 09, 2024 04:19 PM [facility] GLUCOSE,BLOOD-poct (STL) Specimen Type: BLOOD Comment: Test Performed by: [id number] Meter #: [id number] Ordering Provider: LIDIA HUYNH Report Released Date/Time: Jan 09, 2024 04:34 PM Reporting Lab: [place] [address] [facility] [address] Performing Lab: [place] [address] [facility] [address] GLUCOSE,BLOOD -poct (STL) 119 mg/dL H 72-Jan 09, 2024 02:30 PM [facility] MAGNESIUM Specimen Type: PLASMA Comment: No hemolysis noted. Ordering Provider: HAILY ZAVALA Report Released Date/Time: Jan 09, 2024 07:51 AM Reporting Lab: [place] [address] [facility] [address] Performing Lab: [place] [address] [facility] [address] MAGNESIUM 1.6 mg/dL 1.6-2.6 Jan 09, 2024 02:30 PM [facility] RENAL PANEL Specimen Type: PLASMA Comment: No hemolysis noted. Ordering Provider: HAILY ZAVALA Report Released Date/Time: Jan 09, 2024 07:51 AM Reporting Lab: [facility] [address] Performing Lab: [address] [address] CREATININE 5.13 mg/dL H 0.7-1.3 UREA NITROGEN 46.2 mg/dL H 9.0-25.0 GLUCOSE 177 mg/dL H 72-99 SODIUM 136 meq/L 136-145 POTASSIUM 4.0 meq/L 3.5-5 CHLORIDE 101 meq/L 98-107 CARBON DIOXIDE 23 meq/L 22-31 CALCIUM 8.6 mg/dL 8.4-10.4 PHOSPHOROUS 2.7 mg/dL 2.3-4.7 ALBUMIN 3.6 g/dL 3.4-5 EGFR (CKD-EPI 2020) 11.5 LL >60 Jan 09, 2024 12:27 PM [facility] GLUCOSE,BLOOD-poct (STL) Specimen Type: BLOOD Comment: Test Performed by: [id number] Meter #: [id number] Ordering Provider: LINOMED Report Released Date/Time: Jan 09, 2024 12:38 PM Reporting Lab: [address] [address] Performing Lab: [address] [address] GLUCOSE,BLOOD -poct (STL) 98 mg/dL 72-99 Jan 09, 2024 07:15 AM [facility] GLUCOSE,BLOOD-poct (STL) Specimen Type: BLOOD Comment: Test Performed by: [id number] Meter #: [id number] Ordering Provider: LINOMED Report Released Date/Time: Jan 09, 2024 07:58 AM Reporting Lab: [address] [address] Performing Lab: [address] [address] GLUCOSE,BLOOD -poct (STL) 86 mg/dL 72-99 Jan 08, 2024 09:04 PM [facility] GLUCOSE,BLOOD-poct (STL) Specimen Type: BLOOD Comment: Test Performed by: [id number] Meter #: [id number] Ordering Provider: LIDIA HUYNH Report Released Date/Time: Jan 08, 2024 09:47 PM Reporting Lab: [address] [address] Performing Lab: [address] [address] GLUCOSE,BLOOD -poct (STL) 90 mg/dL 72-99 Jan 08, 2024 09:01 PM [facility] HEP B CORE AB TOTAL. (STL) Specimen Type: SERUM No comment entered. Ordering Provider: SEGUNDO TAYLOR Report Released Date/Time: Jan 08, 2024 02:35 PM Reporting Lab: [address] [address] Performing Lab: [address] [address] HEP B CORE AB TOTAL. (STL) Nonreactive Nonreactive Jan 08, 2024 09:01 PM [facility] HEP HB S Ag ([place]) (STL) Specimen Type: SERUM No comment entered. Ordering Provider: SEGUNDO TAYLOR Report Released Date/Time: Jan 08, 2024 02:35 PM Reporting Lab: [place] [address] [facility] [address] Performing Lab: [address] [address] HEP HB S Ag ([place]) (STL) Nonreactive Nonreactive Jan 08, 2024 09:01 PM [facility] HEPATITIS B SURFACE AB PNL Specimen Type: SERUM No comment entered. Ordering Provider: SEGUNDO TAYLOR Report Released Date/Time: Jan 08, 2024 02:35 PM Reporting Lab: [address] [address] Performing Lab: [address] [address] HEP B Surface Ab-HBsAB (STL) REACTIVE m[IU]/mL Nonreactive HEP Bs AB-QUANT (STL) 63.22 m[IU]/mL Jan 08, 2024 04:47 PM [facility] GLUCOSE,BLOOD-poct (STL) Specimen Type: BLOOD Comment: Test Performed by: [id number] Meter #: [id number] Ordering Provider: LIDIA HUYNH Report Released Date/Time: Jan 08, 2024 05:09 PM Reporting Lab: [address] [address] Performing Lab: [address] [address] GLUCOSE,BLOOD -poct (STL) 95 mg/dL 72-99 Jan 08, 2024 11:26 AM [facility] GLUCOSE,BLOOD-poct (STL) Specimen Type: BLOOD Comment: Test Performed by: [id number] Meter #: [id number] Ordering Provider: LIDIA HUYNH Report Released Date/Time: Jan 08, 2024 11:37 AM Reporting Lab: [address] [address] Performing Lab: [place] [address] [facility] [address] GLUCOSE,BLOOD -poct (STL) 105 mg/dL H 72-99 Jan 08, 2024 07:01 AM [facility] RENAL PANEL Specimen Type: PLASMA Comment: No hemolysis noted. Ordering Provider: DICK GRIFFIN Report Released Date/Time: Jan 07, 2024 11:24 PM Reporting Lab: [place] [address] [facility] [address] Performing Lab: [address] [address] CREATININE 8.50 mg/dL H 0.7-1.3 UREA NITROGEN 88.2 mg/dL H 9.0-25.0 GLUCOSE 70 mg/dL L 72-99 SODIUM 139 meq/L 136-145 POTASSIUM 5.4 meq/L H 3.5-5 CHLORIDE 110 meq/L H 98-107 CARBON DIOXIDE 19 meq/L L 22-31 CALCIUM 9.4 mg/dL 8.4-10.4 PHOSPHOROUS 5.1 mg/dL H 2.3-4.7 ALBUMIN 3.8 g/dL 3.4-5 EGFR (CKD-EPI 2020) 6.3 LL >60 Jan 08, 2024 06:37 AM [facility] GLUCOSE,BLOOD-poct (STL) Specimen Type: BLOOD Comment: Test Performed by: [id number] Meter #: [id number] Ordering Provider: LIDIA HUYNH Report Released Date/Time: Jan 08, 2024 06:48 AM Reporting Lab: [facility] [address] [facility] [address] Performing Lab: [facility] [address] [facility] [address] GLUCOSE,BLOOD -poct (STL) 86 mg/dL 72-99 Social History: Smoking Status (Most current) and Tobacco Use (All prior to encounter date) This section includes the most current, and the historical, smoking and tobacco- related health factors from the [place] facility where the Encounter took place. Current Smoking Status This section includes the most current smoking, or tobacco-related health factor, from the [place] facility where the Encounter took place. Date/Time Current Smoking Status Comment Facil ity Jun 21, 2023 01:14 PM [facility] ADMIT TOBACCO SCREEN NO [facility] Tobacco Use History This section includes a history of the smoking, or tobacco-related health factors, that were collected on or before the date of the Encounter. The data comes from the [place] facility where the Encounter took place. Date/Time Smoking Status/Tobacco Use Comment F acility Dec 12, 2022 04:00 PM [facility] ADMIT TOBACCO SCREEN NO [facility] Jun 25, 2022 03:24 PM VA-TOBACCO FORMER USER [facility] Jun 25, 2022 03:24 PM VA-TOBACCO QUIT 15 YRS OR MORE [facility] Dec 23, 2021 04:59 PM [facility] ADMIT TOBACCO SCREEN REFUSED [facility] May 24, 2020 11:27 PM [facility] ADMIT TOBACCO SCREEN NO [facility] Dec 12, 2019 10:24 AM VA-TOBACCO FORMER USER [facility] Dec 12, 2019 10:24 AM VA-TOBACCO QUIT 15 YRS OR MORE [facility] Aug 03, 2019 02:11 AM [facility] ADMIT TOBACCO SCREEN REFUSED [facility] Oct 12, 2018 01:14 AM QUIT TOBACCO >7 YEARS AGO [facility] Oct 11, 2018 03:33 PM [facility] ADMIT TOBACCO SCREEN NO [facility] Sep 07, 2018 09:13 PM ORYX ADMIT TOBACCO SCREEN NO [facility] Sep 07, 2018 07:52 PM QUIT TOBACCO >7 YEARS AGO [facility] Advance Directives: All historical and current Section Date Range: From patient's date of to the date document was created. This section includes ALL of a patient's completed or amended [place] Advance and Rescinded Directives. The entries below indicate that a directive exists for the patient, but an actual copy is not included with this document. The data comes from all [place] facilities. Date Advance Directives Provider Source Dec 17, 2022 ADVANCE DIRECTIVE BIJAN MERRITT [facility] Feb 09, 2020 ADVANCE DIRECTIVE DISCUSSION MELY [facility] Feb 02, 2018 ADVANCE DIRECTIVE EBAU ALTAMIRANO [facility] Nov 29, 2006 ADVANCE DIRECTIVE MARELY CHACON [facility] Radiology Reports: +/- 30 days of [...] the Encounter. The data comes from all [place] treatment facilities. Date/Time Radiology Report Provider Source Jan 07, 2024 08:01 PM CHEST PORTABLE: NAGI KATZ [id number] -[id number] M Exm Date: JAN 07, 2024@20:01 Req Phys: ANNA CALI Pat Loc: [facility] 3RD SHIFT (R Img Loc: -MAIN RADIOLOGY SUITE Service: Unknown (Case [id number] COMPLETE) CHEST PORTABLE (RAD Detailed) CPT:25961 Proc Modifiers : Portable Reason for Study: weakness, ESRD Clinical History: Report Status: Verified Date Reported: JAN 07, 2024 Date Verified: JAN 07, 2024 [facility] [employer]amer E-Sig: Report: CHEST PORTABLE HISTORY: weakness, ESRD COMPARISON: July 26, 2023 TECHNIQUE: One view of the chest was performed at the local [place] facility. images were received by the [place] [employer] [facility] ([facility]) for interpretation. FINDINGS: Bilateral peribronchial thickening. Patchy bilateral lower lobe lung opacities. Mildly tortuous aorta. No acute bony abnormalities. Impression: 1. Bilateral peribronchial thickening. 2. Patchy bilateral lung opacities likely represent atelectasis. 3. No pneumothorax. READING PHYSICIAN: Madhu Patton M.D. -[id number] 01/07/2024 19:10 [facility] National Teleradiology Program [phone] (For Medical Practitioner Use Only) Attention Patients / Veterans: If you have questions or concerns about these test results, please contact your ordering provider or primary care team. Primary Interpreting Staff: RADIOLOGY,OUTSIDE SERVICE, Staff Physician / RADIOLOGY,OUTSIDE SERVICE [facility] Encounter Notes: All associated encounter notes This section contains the clinical notes associated to the Encounter. Date/Time Encounter Note(s) Provider Source Feb 06, 2024 04:40 PM DIALYSIS NOTE: LOCAL TITLE: HEMODIALYSIS RUNSHEET APPOINTMENT [facility] STANDARD TITLE: DIALYSIS NOTE DATE OF NOTE: FEB 06, 2024@16:40:37 ENTRY DATE: FEB 06, 2024@16:40:37 AUTHOR: ISSA ABRAMS EXP COSIGNER: URGENCY: routine STATUS: COMPLETED Dialysis [place] Appointment on Feb 06, 2024@11:45 Patient: NAGI KATZ Treatment Date: 06-Feb-2024 1145 Status: Discharged Latest Lab Result: URR: (, ) Kt/V: (, ) HgB: (, ) HCT: (, ) Diagnosis: End stage renal disease Patient Type: Inpatient Allergies: MORPHINE Resuscitate: [x] YES [ ] NO HD Summary Tables TREATMENT SUMMARY Treatment Start Time 06-Feb-2024 1145 Treatment End Time 06-Feb-2024 1545 Duration(ordered): 4:00 Duration(manually adjusted): 3:59 Weights (Kg) and Fluid Removed (L): Date Pre Weight Target Weight Post Weight Excess Weight IDW Goal Weight Target UF Achieved UF Current 103.00 0.00 102.90 103.00 -0.20 0.00 0.50 0.91 04-Feb-2024 102.50 0.00 103.20 102.50 1.00 0.00 0.50 0.91 02-Feb-2024 101.30 0.00 101.50 101.30 0.00 0.50 0.38 Blood Pressures (mmHg) & Fluid intake (mL) during treatment: Date Pre BP Post BP Lowest BP Highest BP IVF Given (mL) PO Fluid (mL) Current Sitting 117/59 Standing 135/54 104/58 133/64 0.40 Sitting 113/63 Standing 140/67 -- -- -- -- 04-Feb-2024 Sitting 154/71 Sitting 164/75 143/73 175/70 0.40 Sitting 144/74 Standing 158/79 -- -- -- -- 02-Feb-2024 Sitting 122/59 Standing 151/74 106/57 163/68 0.40 -- -- -- -- Pulse and Temp: Date Pre Pulse Post Pulse Lowest Pulse Highest Pulse Pre Temp Post Temp Current Sitting 60 Standing 57 51 64 97.3 97.9 Sitting 59 Standing 60 -- -- -- -- 04-Feb-2024 Sitting 68 Sitting 60 58 69 98.1 97.7 Sitting 66 Standing 72 -- -- -- -- 02-Feb-2024 Sitting 63 Standing 98 56 87 97.3 97.5 -- -- -- -- HD Times Date Prescribed Time Achieved Time Treatment Start Treatment End Current 4:00 3:59 1145 1545 04-Feb-2024 4:00 4:00 1258 1659 02-Feb-2024 3:30 3:34 1254 1628 Day's Order Related Problem: End stage renal disease Access Type: Fistula Access Site: VIRGIE Backup Access: Backup Access Site: Needle Gauge: 15 gauge 1 Freezing: [ ] YES [x] NO Machine Type: Satsuma Gambro Isolation: [ ] YES [x] NO Conventional HD Prosthesis(kg): Wheelchair(kg): Target Weight(kg): 0.00 Duration(h): 4:00 or Target UF(kg): 0.50 Frequency(x/wk): 3.00 Dialysate Temp(C): 37.00 Dialysis Type: [ ] daytime [ ] nocturnal Prescribed BVP(L): Dialysate Type: Saline Inf. (mL): DEPORTATION OFFICER Blood Flow(ml/min): Hemodiafiltr. Volume(l): Hemodiafiltr. Fluid Type: Fractional Urea Distribution Space: 0.00 Prescribed KT/V: Process: Hemodialysis Procedure: Daily dialysis treatment Dialyzer: Nipro Elisio - 25H Max. reuses: Dialyzer 2: Tubing: K+(mmol/L): 2 Ca+(mmol/L): 3 Glucose(mmol/L): Mg+(mmol/L): Profiles: Initial values: Ramping: Dialysate [...] Value Comments Verified Verified Time Verified By 1156 Needle Gauge 15 gauge 1 Order not present NO 1157 Needle Gauge 15 gauge 1 Order not present NO = Access ======= Access Type: Fistula only [...] Port (min): 10 Cannulated Glen: 1 Staff: JEFF BISHOP Cannulated Art: 1 Staff: JEFF BISHOP General: Today's Assessment: = Predialysis === Extra Treatment: [ ] YES [x] NO Received From: Staff On: JEFF BISHOP Station: Chair 10 Machine #: C - 19 Resp Caregiver: Treat Caregiver: Arrival Time: 06-Feb-2024 1130 Mode: walking By/With: unaccompanied Vital Signs Temp(C): 97.30 Resp: 18 Time: 113 Sitting BP: 117/59 Sitting Pulse: 60 Time: 1135 Sitting BP: 113/63 Sitting Pulse: 59 Weights Measure Wt(kg): 103.00 Target Weight(kg): 0.00 Prosthesis Wt(kg): or Target UF(kg): 0.50 Wheelchair Wt(kg): Weight Change(kg): -0.20 Current Wt(kg): 103.00 Excess Weight(kg): 103.00 Total Fluid Admin(kg): 0.40 Expected UF Vol(kg): 103.40 Target TMP(mm/Hg): UFR(kg/hr : ml/kg/hr): 25.75 : ? Patient Condition: 06-Feb-2024 1128 JEFF BISHOP No complaints offered, Alert and oriented Nursing Assessment: 06-Feb-2024 1158 ISSA ABRAMS Pt. cannulated with 15g needles x 2 with success 400 BFR. 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 has orders to remove 0.5 liters. Acknowledged On: 06-Feb-2024 1136 By: ISSA ABRAMS Pain: Acuity: 0 Type: Location: Measures: Heparin: Pump Start At: By: Hourly Rate: Bolus: Same Syringe: [ ] YES [x] NO Total in Syringe: Verified By: Time: Communication: Preferred Language: Micronesian Providier Proficient: [ ] YES [x] NO Grinding Operator Desired: [ ] YES [x] NO Offered: [ ] YES [x] NO = Dialysis Log DIALYSIS LOG Start Date/Time: 06-Feb-2024 1145 Table 1: Dialysis Data Time BP MAP Pulse BFR BVP AP DEPORTATION OFFICER TMP UFR TFR HEP Hep Com 1145 190 0.1 -20 60 20 0.23 : ? 0.00 0.0 1146 104/58 0.0 55 190 0.0 -30 50 30 0.23 : ? 0.00 0.0 1200 0.0 1201 0.0 1201 107/56 0.0 52 400 5.3 -160 180 5 0.23 : ? 0.05 0.0 1201 0.0 1216 109/54 0.0 52 400 11.3 -170 170 10 0.23 : ? 0.12 0.0 1231 106/54 0.0 52 400 17.3 -170 170 5 0.23 : ? 0.16 0.0 1246 111/53 0.0 52 400 23.3 -160 170 10 0.23 : ? 0.23 0.0 1301 117/57 0.0 53 400 29.3 -160 170 10 0.23 : ? 0.28 0.0 1317 130/56 0.0 52 400 35.8 -160 170 10 0.23 : ? 0.35 0.0 1331 125/58 0.0 55 400 41.3 -160 170 10 0.23 : ? 0.40 0.0 1347 115/55 0.0 54 400 47.6 -160 170 10 0.23 : ? 0.47 0.0 1401 116/56 0.0 53 400 53.3 -160 170 10 0.23 : ? 0.51 0.0 1416 122/57 0.0 51 400 59.3 -150 170 10 0.23 : ? 0.58 0.0 1431 104/75 0.0 64 400 65.3 -150 170 10 0.23 : ? 0.63 0.0 1446 125/59 0.0 51 400 71.3 -150 170 5 0.23 : ? 0.68 0.0 1502 121/62 0.0 52 400 77.6 -150 170 10 0.23 : ? 0.75 0.0 1517 133/64 0.0 52 400 83.6 -150 170 10 0.23 : ? 0.82 0.0 1532 133/64 0.0 53 400 89.6 -150 170 10 0.23 : ? 0.87 0.0 1545 0 94.9 30 40 0 0.00 : ? 0.91 0.0 1200 0.0 Table 2: Dialysate Bath Time DFR ADV Temp K Ca Na HC03 1145 600.00 36.90 2.00 3.00 0.00 0.00 1146 600.00 36.90 2.00 3.00 0.00 0.00 1200 1201 1201 600.00 34.90 2.00 3.00 0.00 0.00 1201 1216 600.00 35.00 2.00 3.00 0.00 0.00 1231 600.00 35.00 2.00 3.00 0.00 0.00 1246 600.00 34.90 2.00 3.00 0.00 0.00 1301 600.00 35.00 2.00 3.00 0.00 0.00 1317 600.00 35.00 2.00 3.00 0.00 0.00 1331 600.00 34.90 2.00 3.00 0.00 0.00 1347 600.00 34.90 2.00 3.00 0.00 0.00 1401 600.00 35.00 2.00 3.00 0.00 0.00 1416 600.00 34.90 2.00 3.00 0.00 0.00 1431 600.00 34.90 2.00 3.00 0.00 0.00 1446 600.00 35.00 2.00 3.00 0.00 0.00 1502 600.00 35.00 2.00 3.00 0.00 0.00 1517 600.00 35.00 2.00 3.00 0.00 0.00 1532 600.00 34.90 2.00 3.00 0.00 0.00 1545 600.00 35.00 2.00 3.00 0.00 0.00 1200 Table 3: Patient Assessment Acknowledge Time Author Access Visible Patient Status 06-Feb-2024 JEFF BISHOP [x] YES [ ] NO 06-Feb-2024 JEFF BISHOP [x] YES [ ] NO tx initiated 06-Feb-2024 1200 TINALADAMS [ ] YES [x] NO 06-Feb-2024 TINALADAMS [ ] YES [x] NO 06-Feb-2024 1303 JEFF BISHOP [x] YES [ ] NO pt alert 06-Feb-2024 TINALADAMS [ ] YES [x] NO 06-Feb-2024 1303 DARIO,JEFF L [x] YES [ ] NO no complaints 06-Feb-2024 1303 DARIO,JEFF L [x] YES [ ] NO pt watching tv 06-Feb-2024 1303 DARIO,JEFF L [x] YES [ ] NO pt resting 06-Feb-2024 1303 DARIO,JEFF L [x] YES [ ] NO eyes closed 06-Feb-2024 1333 DARIO,JEFF L [x] YES [ ] NO no complaints 06-Feb-2024 1333 DARIO,JEFF L [x] YES [ ] NO pt alert 06-Feb-2024 1356 DARIO,JEFF L [x] YES [ ] NO watching tv 06-Feb-2024 1414 DARIO,JEFF L [x] YES [ ] NO watching tv 06-Feb-2024 1416 DARIO,JEFF L [x] YES [ ] NO no complaints 06-Feb-2024 1437 JEFF BISHOP L [ ] YES [x] NO pt alert 06-Feb-2024 1458 DARIO,JEFF L [x] YES [ ] NO watching tv 06-Feb-2024 1516 DARIO,JEFF L [ ] YES [x] NO pt alert 06-Feb-2024 1518 DARIO,JEFF L [x] YES [ ] NO watching tv 06-Feb-2024 1538 DARIO,JEFF L [x] YES [ ] NO pt alert [x] YES [ ] NO Tx ended without any issues 06-Feb-2024 1200 ISSA ABRAMS [ ] YES [x] NO = Medication Log Medication Log Start Date/Time: 06-Feb-2024 Medication: Time: 1199 Nurse: ISSA ABRAMS 2nd red mud thickener operator: Medication/Blood: LIDOCAINE 2.5/PRILOCAINE 2.5% CREAM Dosage/Units: Not given Route: Unused Amount: 0.00 IV Flush(mL): Admin Comments: Reason Not Given: Medication: Time: 1199 Nurse: GEETA 2nd red mud thickener operator: Medication/Blood: DARBEPOETIN OMAR 40MCG/0.4ML SYR Dosage/Units: 40.00 MCG Route: IV PUSH Unused Amount: 0.00 IV Flush(mL): Admin Comments: [id number] Reason Not Given: Medication: Time: 120 Nurse: GEETA 2nd red mud thickener operator: Medication/Blood: PARICALCITOL 2MCG/ML SOLN INJ Dosage/Units: 2.00 MCG Route: IV PUSH Unused Amount: 0.00 IV Flush(mL): Admin Comments: [id number] Reason Not Given: Medication: Time: 1200 Nurse: GEETA 2nd red mud thickener operator: Medication/Blood: IRON SUCROSE 20MG/ML INJ Dosage/Units: 100.00 MG Route: IV PUSH Unused Amount: 0.00 IV Flush(mL): Admin Comments: [phone] Reason Not Given: = Events Log === Time Resolved Complication Comments Author Brigitte Spent Cornelius Notified Ack' d Nurse = Postdialysis == Clotted: [ ] YES [x] NO Infiltrated: [ ] YES [x] NO Extra Treatment: [ ] YES [x] NO Procedure: Daily dialysis treatment Stop Date/Time: 06-Feb-2024 154 Dialysis Time(hrs): 3:59 Staff Off: JEFF BISHOP Effective Time(hrs): Resp Caregiver: Departure Time: 1609 By/With: unaccompanied Mode: walking Visit Disposition: Discharged Home (private dwelling, not an institution, no support services) Patient Sent To: Pain Acuity: 0 Type: Location Measures Measures Measures Weights Measured Wt.(kg): 102.90 Prosthesis Wt.(kg): Wheelchair Wt(kg): Post Dialysis Wt(kg): 102.90 Target Weight(kg): 0.00 Target UF(kg): 0.50 Removed Wt(kg): 0.10 Fluid Removed(kg): 0.91 Effective UFR (kg/hr:ml/kg/hr): 0.03 : 0.2 Dialysate Used(L): 143.40 Patient Status Temp(C): 97.90 Resp: 18 Standing BP: 135/54 Standing Pulse: 57 Standing BP: 140/67 Standing Pulse: 60 Lowest BP: 104/58 BV Processed: Heparin Total Ordered: 0.00 Total Infused: Left in Syringe: Verified At: By: 2nd red mud thickener operator: By: Fluid Intake Total Ingested(kg): Total HDF Administered(kg): Avg HDF(kg/hr): Hematocrit(%): Hemoglobin(mg/dL): KT/V: Relative Blood Volume(%): Final Effective Ionic Dialysance: Dialyzer Post Dial Rating: Not Clear-Most Acid Disinfect: 1557 Chemical Cycle Start At: 1557 Heat Cycle Start At: Patient Condition: 06-Feb-2024 155 JEFF BISHOP Alert & oriented, Treatment tolerated without complication Nursing Assessment: 06-Feb-2024 ISSA ABRAMS VALVE REPAIRER RECLAMATION POST-ASSESSMENT Time of assessment [ MENTAL STATUS: [X ]Alert & Oriented x 3 Comment: [ ]Alert & Oriented x 2 [ ]Person [ ]Place [ ]Time/Date [ ]Situation Comment: [ ]Alert & Oriented x 1 [ ]Person [ ]Place [ ]Time/Date [ ]Situation Comment:[ [ ]Confused Comment:[ [ ]Other Comment:[ RESPIRATORY STATUS: [XClear bilaterally [ ]Clear right [ ]Clear left [...] ]R lower lobe [ ]Bilateral Comment:[ EDEMA: [X ]No edema noted [ ]Face [ ]Abdomen [ ]Bilateral UE [ ]Left UE [ ]Right UE [ ] Bilateral LE [ ]Left LE [ ]Right LE Comment:[ Comments:[Pt. left clinic in stable condition ambulatory, with no distress noted. Acknowledged On: 06-Feb-2024 Acknowledged By: ISSA ABRAMS = Preparation === Station: Chair 10 Machine #: C - 19 MACHINE DISINFECTION Acid Cycle: 06-Feb-2024 Heat Cycle: 03-Feb-2024 Chemical Cycle: 06-Feb-2024 Disinfect Clear Status: MACHINE CHECKS Original All Steps Completed: [x] YES [ ] NO Alarm Test Complete: 06-Feb-2024 1030 Alarms Audible: 06-Feb-2024 1030 Checked prescription: 06-Feb-2024 1030 Checked conductivity: 06-Feb-2024 1030 Double checked 06-Feb-2024 1055 Patient identified: 06-Feb-2024 1128 prescription: Time Out: 06-Feb-2024 113 Conductivity: 13.90 Calcium: 3 Dialysate Temperature: 37.00 Potassium: 2 Bicarb: 40 Reading confirmation: 06-Feb-2024 105 Conductivity: 13.90 pH: 7.10 Replacement All Steps Completed: [x] YES [ ] NO Alarm Test Complete: 06-Feb-2024 1030 Alarms Audible: 06-Feb-2024 1030 Checked prescription: 06-Feb-2024 1030 Checked conductivity: 06-Feb-2024 1030 Double checked 06-Feb-2024 105 Patient identified: 06-Feb-2024 prescription: Time Out: 06-Feb-2024 113 Conductivity: 13.90 K+: 2 pH: 7.10 Ca+: 3 Dialysate Temp (C): 37.00 = Material ====== MATERIAL / DIALYZER REUSE Start Machine (#): C - 19 Time Failed: Replacement Machine: Replaced time: Reason: Dialyzer Label: Nipro Elisio - 25H Reprocessed #: Dialyzer Lot: Pre-dialysis Dialyzer Rating: Check 1: 06-Feb-2024 1105 JEFF BISHOP Check 2: 06-Feb-2024 1055 ISSA ABRAMS Location: [address] [place] [address]/ Issa Abrams RN REGISTERED NURSE Signed: 02/06/2024 16:40 ISSA ABRAMS [facility] Feb 06, 2024 04:21 PM DIALYSIS NOTE: LOCAL TITLE: HEMODIALYSIS [place] APPOINTMENT [facility] STANDARD TITLE: DIALYSIS NOTE DATE OF NOTE: FEB 06, 2024@16:21:37 ENTRY DATE: FEB 06, 2024@16:21:37 AUTHOR: ISSA ABRAMS EXP COSIGNER: URGENCY: routine STATUS: COMPLETED Dialysis [place] Appointment on Feb 06, 2024@11:45 Patient: NAGI KATZ Treatment Date: 06-Feb-2024 1145 Status: Discharged Latest Lab Result: URR: (, ) Kt/V: (, ) HgB: (, ) HCT: (, ) Diagnosis: End stage renal disease Patient Type: Inpatient Allergies: MORPHINE Resuscitate: [x] YES [ ] NO HD Summary Tables TREATMENT SUMMARY Treatment Start Time 06-Feb-2024 1145 Treatment End Time 06-Feb-2024 1545 Duration(ordered): 4:00 Duration(manually adjusted): 3:59 Weights (Kg) and Fluid Removed (L): Date Pre Weight Target Weight Post Weight Excess Weight IDW Goal Weight Target UF Achieved UF Current 103.00 0.00 102.90 103.00 -0.20 0.00 0.50 0.91 04-Feb-2024 102.50 0.00 103.20 102.50 1.00 0.00 0.50 0.91 02-Feb-2024 101.30 0.00 101.50 101.30 0.00 0.50 0.38 Blood Pressures (mmHg) & Fluid intake (mL) during treatment: Date Pre BP Post BP Lowest BP Highest BP IVF Given (mL) PO Fluid (mL) Current Sitting 117/59 Standing 135/54 104/58 133/64 0.40 Sitting 113/63 Standing 140/67 -- -- -- -- 04-Feb-2024 Sitting 154/71 Sitting 164/75 143/73 175/70 0.40 Sitting 144/74 Standing 158/79 -- -- -- -- 02-Feb-2024 Sitting 122/59 Standing 151/74 106/57 163/68 0.40 -- -- -- -- Pulse and Temp: Date Pre Pulse Post Pulse Lowest Pulse Highest Pulse Pre Temp Post Temp Current Sitting 60 Standing 57 51 64 97.3 97.9 Sitting 59 Standing 60 -- -- -- -- 04-Feb-2024 Sitting 68 Sitting 60 58 69 98.1 97.7 Sitting 66 Standing 72 -- -- -- -- 02-Feb-2024 Sitting 63 Standing 98 56 87 97.3 97.5 -- -- -- -- HD Times Date Prescribed Time Achieved Time Treatment Start Treatment End Current 4:00 3:59 1145 1545 04-Feb-2024 4:00 4:00 1258 1659 02-Feb-2024 3:30 3:34 1254 1628 Day's Order Related Problem: End stage renal disease Access Type: Fistula Access Site: VIRGIE Backup Access: Backup Access Site: Needle Gauge: 15 gauge 1 Freezing: [ ] YES [x] NO Machine Type: Satsuma Gambro Isolation: [ ] YES [x] NO Conventional HD Prosthesis(kg): Wheelchair(kg): Target Weight(kg): 0.00 Duration(h): 4:00 or Target UF(kg): 0.50 Frequency(x/wk): 3.00 Dialysate Temp(C): 37.00 Dialysis Type: [ ] daytime [ ] nocturnal Prescribed BVP(L): Dialysate Type: Saline Inf. (mL): DEPORTATION OFFICER Blood Flow(ml/min): Hemodiafiltr. Volume(l): Hemodiafiltr. Fluid Type: Fractional Urea Distribution Space: 0.00 Prescribed KT/V: Process: Hemodialysis Procedure: Daily dialysis treatment Dialyzer: Nipro Elisio - 25H Max. reuses: Dialyzer 2: Tubing: K+(mmol/L): 2 Ca+(mmol/L): 3 Glucose(mmol/L): Mg+(mmol/L): Profiles: Initial values: Ramping: Dialysate [...] Value Comments Verified Verified Time Verified By 1156 Needle Gauge 15 gauge 1 Order not present NO 1157 Needle Gauge 15 gauge 1 Order not present NO = Access ======= Access Type: Fistula only [...] Port (min): 10 Cannulated Glen: 1 Staff: JEFF BISHOP Cannulated Art: 1 Staff: JEFF BISHOP General: Today's Assessment: = Predialysis === Extra Treatment: [ ] YES [x] NO Received From: Staff On: JEFF BISHOP Station: Chair 10 Machine #: C - 19 Resp Caregiver: Treat Caregiver: Arrival Time: 06-Feb-2024 113 Mode: walking By/With: unaccompanied Vital Signs Temp(C): 97.30 Resp: 18 Time: 1133 Sitting BP: 117/59 Sitting Pulse: 60 Time: 1135 Sitting BP: 113/63 Sitting Pulse: 59 Weights Measure Wt(kg): 103.00 Target Weight(kg): 0.00 Prosthesis Wt(kg): or Target UF(kg): 0.50 Wheelchair Wt(kg): Weight Change(kg): -0.20 Current Wt(kg): 103.00 Excess Weight(kg): 103.00 Total Fluid Admin(kg): 0.40 Expected UF Vol(kg): 103.40 Target TMP(mm/Hg): UFR(kg/hr : ml/kg/hr): 25.75 : ? Patient Condition: 06-Feb-2024 1128 JEFF BISHOP No complaints offered, Alert and oriented Nursing Assessment: 06-Feb-2024 1158 ISSA ABRAMS Pt. cannulated with 15g needles x 2 with success 400 BFR. 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 has orders to remove 0.5 liters. Acknowledged On: 06-Feb-2024 1136 By: ISSA ABRAMS Pain: Acuity: 0 Type: Location: Measures: Heparin: Pump Start At: By: Hourly Rate: Bolus: Same Syringe: [ ] YES [x] NO Total in Syringe: Verified By: Time: Communication: Preferred Language: Micronesian Providier Proficient: [ ] YES [x] NO Grinding Operator Desired: [ ] YES [x] NO Offered: [ ] YES [x] NO = Dialysis Log DIALYSIS LOG Start Date/Time: 06-Feb-2024 1145 Table 1: Dialysis Data Time BP MAP Pulse BFR BVP AP DEPORTATION OFFICER TMP UFR TFR HEP Hep Com 1145 190 0.1 -20 60 20 0.23 : ? 0.00 0.0 1146 104/58 0.0 55 190 0.0 -30 50 30 0.23 : ? 0.00 0.0 1200 0.0 1201 0.0 1201 107/56 0.0 52 400 5.3 -160 180 5 0.23 : ? 0.05 0.0 1201 0.0 1216 109/54 0.0 52 400 11.3 -170 170 10 0.23 : ? 0.12 0.0 1231 106/54 0.0 52 400 17.3 -170 170 5 0.23 : ? 0.16 0.0 1246 111/53 0.0 52 400 23.3 -160 170 10 0.23 : ? 0.23 0.0 1301 117/57 0.0 53 400 29.3 -160 170 10 0.23 : ? 0.28 0.0 1317 130/56 0.0 52 400 35.8 -160 170 10 0.23 : ? 0.35 0.0 1331 125/58 0.0 55 400 41.3 -160 170 10 0.23 : ? 0.40 0.0 1347 115/55 0.0 54 400 47.6 -160 170 10 0.23 : ? 0.47 0.0 1401 116/56 0.0 53 400 53.3 -160 170 10 0.23 : ? 0.51 0.0 1416 122/57 0.0 51 400 59.3 -150 170 10 0.23 : ? 0.58 0.0 1431 104/75 0.0 64 400 65.3 -150 170 10 0.23 : ? 0.63 0.0 1446 125/59 0.0 51 400 71.3 -150 170 5 0.23 : ? 0.68 0.0 1502 121/62 0.0 52 400 77.6 -150 170 10 0.23 : ? 0.75 0.0 1517 133/64 0.0 52 400 83.6 -150 170 10 0.23 : ? 0.82 0.0 1532 133/64 0.0 53 400 89.6 -150 170 10 0.23 : ? 0.87 0.0 1545 0 94.9 30 40 0 0.00 : ? 0.91 0.0 1200 0.0 Table 2: Dialysate Bath Time DFR ADV Temp K Ca Na HC03 1145 600.00 36.90 2.00 3.00 0.00 0.00 1146 600.00 36.90 2.00 3.00 0.00 0.00 1200 1201 1201 600.00 34.90 2.00 3.00 0.00 0.00 1201 1216 600.00 35.00 2.00 3.00 0.00 0.00 1231 600.00 35.00 2.00 3.00 0.00 0.00 1246 600.00 34.90 2.00 3.00 0.00 0.00 1301 600.00 35.00 2.00 3.00 0.00 0.00 1317 600.00 35.00 2.00 3.00 0.00 0.00 1331 600.00 34.90 2.00 3.00 0.00 0.00 1347 600.00 34.90 2.00 3.00 0.00 0.00 1401 600.00 35.00 2.00 3.00 0.00 0.00 1416 600.00 34.90 2.00 3.00 0.00 0.00 1431 600.00 34.90 2.00 3.00 0.00 0.00 1446 600.00 35.00 2.00 3.00 0.00 0.00 1502 600.00 35.00 2.00 3.00 0.00 0.00 1517 600.00 35.00 2.00 3.00 0.00 0.00 1532 600.00 34.90 2.00 3.00 0.00 0.00 1545 600.00 35.00 2.00 3.00 0.00 0.00 1200 Table 3: Patient Assessment Acknowledge Time Author Access Visible Patient Status 06-Feb-2024 JEFF BISHOP [x] YES [ ] NO 06-Feb-2024 JEFF BISHOP [x] YES [ ] NO tx initiated 06-Feb-2024 1200 TINALADAMS [ ] YES [x] NO 06-Feb-2024 1201 TINALADAMS [ ] YES [x] NO 06-Feb-2024 1303 JEFF BISHOP L [x] YES [ ] NO pt alert 06-Feb-2024 1201 TINALADAMS [ ] YES [x] NO 06-Feb-2024 1303 JEFF BISHOP L [x] YES [ ] NO no complaints 06-Feb-2024 1303 JEFF BISHOP L [x] YES [ ] NO pt watching tv 06-Feb-2024 1303 JEFF BISHOP L [x] YES [ ] NO pt resting 06-Feb-2024 1303 JEFF BISHOP L [x] YES [ ] NO eyes closed 06-Feb-2024 1333 JEFF BISHOP L [x] YES [ ] NO no complaints 06-Feb-2024 1333 JEFF BISHOP L [x] YES [ ] NO pt alert 06-Feb-2024 1356 JEFF BISHOP L [x] YES [ ] NO watching tv 06-Feb-2024 1414 ROSLYN BISHOPTER L [x] YES [ ] NO watching tv 06-Feb-2024 1416 ROSLYN BISHOPTER L [x] YES [ ] NO no complaints 06-Feb-2024 1437 JEFF BISHOP L [ ] YES [x] NO pt alert 06-Feb-2024 1458 JEFF BISHOP L [x] YES [ ] NO watching tv 06-Feb-2024 1516 JEFF BISHOP L [ ] YES [x] NO pt alert 06-Feb-2024 1518 ROSYLN BISHOPTER L [x] YES [ ] NO watching tv 06-Feb-2024 1538 ROSLYN BISHOPTER L [x] YES [ ] NO pt alert [x] YES [ ] NO Tx ended without any issues 06-Feb-2024 1200 ISSA ABRAMS [ ] YES [x] NO = Medication Log Medication Log Start Date/Time: 06-Feb-2024 Medication: Time: 1199 Nurse: ISSA ABRAMS 2nd red mud thickener operator: Medication/Blood: LIDOCAINE 2.5/PRILOCAINE 2.5% CREAM Dosage/Units: Not given Route: Unused Amount: 0.00 IV Flush(mL): Admin Comments: Reason Not Given: Medication: Time: 1199 Nurse: GEETA 2nd red mud thickener operator: Medication/Blood: DARBEPOETIN OMAR 40MCG/0.4ML SYR Dosage/Units: 40.00 MCG Route: IV PUSH Unused Amount: 0.00 IV Flush(mL): Admin Comments: [id number] Reason Not Given: Medication: Time: 120 Nurse: GEETA 2nd red mud thickener operator: Medication/Blood: PARICALCITOL 2MCG/ML SOLN INJ Dosage/Units: 2.00 MCG Route: IV PUSH Unused Amount: 0.00 IV Flush(mL): Admin Comments: [phone] Reason Not Given: Medication: Time: 120 Nurse: GEETA 2nd red mud thickener operator: Medication/Blood: IRON SUCROSE 20MG/ML INJ Dosage/Units: 100.00 MG Route: IV PUSH Unused Amount: 0.00 IV Flush(mL): Admin Comments: [phone] Reason Not Given: = Events Log === Time Resolved Complication Comments Author Brigitte West Cornelius Notified Elvin vazquez Nurse = Postdialysis == Clotted: [ ] YES [x] NO Infiltrated: [ ] YES [x] NO Extra Treatment: [ ] YES [x] NO Procedure: Daily dialysis treatment Stop Date/Time: 06-Feb-2024 1545 Dialysis Time(hrs): 3:59 Staff Off: JEFF BISHOP Effective Time(hrs): Resp Caregiver: Departure Time: 1609 By/With: unaccompanied Mode: walking Visit Disposition: Discharged Home (private dwelling, not an institution, no support services) Patient Sent To: Pain Acuity: 0 Type: Location Measures Measures Measures Weights Measured Wt.(kg): 102.90 Prosthesis Wt.(kg): Wheelchair Wt(kg): Post Dialysis Wt(kg): 102.90 Target Weight(kg): 0.00 Target UF(kg): 0.50 Removed Wt(kg): 0.10 Fluid Removed(kg): 0.91 Effective UFR (kg/hr:ml/kg/hr): 0.03 : 0.2 Dialysate Used(L): 143.40 Patient Status Temp(C): 97.90 Resp: 18 Standing BP: 135/54 Standing Pulse: 57 Standing BP: 140/67 Standing Pulse: 60 Lowest BP: 104/58 BV Processed: Heparin Total Ordered: 0.00 Total Infused: Left in Syringe: Verified At: By: 2nd red mud thickener operator: By: Fluid Intake Total Ingested(kg): Total HDF Administered(kg): Avg HDF(kg/hr): Hematocrit(%): Hemoglobin(mg/dL): KT/V: Relative Blood Volume(%): Final Effective Ionic Dialysance: Dialyzer Post Dial Rating: Not Clear-Most Acid Disinfect: 1556 Chemical Cycle Start At: 1556 Heat Cycle Start At: Patient Condition: 06-Feb-2024 JEFF BISHOP Alert & oriented, Treatment tolerated without complication Nursing Assessment: 06-Feb-2024 ISSA ABRAMS VALVE REPAIRER RECLAMATION POST-ASSESSMENT Time of assessment [ MENTAL STATUS: [X ]Alert & Oriented x 3 Comment: [ ]Alert & Oriented x 2 [ ]Person [ ]Place [ ]Time/Date [ ]Situation Comment: [ ]Alert & Oriented x 1 [ ]Person [ ]Place [ ]Time/Date [ ]Situation Comment:[ [ ]Confused Comment:[ [ ]Other Comment:[ RESPIRATORY STATUS: [XClear bilaterally [ ]Clear right [ ]Clear left [...] ]R lower lobe [ ]Bilateral Comment:[ EDEMA: [X ]No edema noted [ ]Face [ ]Abdomen [ ]Bilateral UE [ ]Left UE [ ]Right UE [ ] Bilateral LE [ ]Left LE [ ]Right LE Comment:[ Comments:[Pt. left clinic in stable condition ambulatory, with no distress noted. Acknowledged On: 06-Feb-2024 Acknowledged By: ISSA ABRAMS = Preparation === Station: Chair 10 Machine #: [id number] MACHINE DISINFECTION Acid Cycle: 06-Feb-2024 Heat Cycle: 03-Feb-2024 Chemical Cycle: 06-Feb-2024 Disinfect Clear Status: MACHINE CHECKS Original All Steps Completed: [x] YES [ ] NO Alarm Test Complete: 06-Feb-2024 1030 Alarms Audible: 06-Feb-2024 1030 Checked prescription: 06-Feb-2024 1030 Checked conductivity: 06-Feb-2024 1030 Double checked 06-Feb-2024 105 Patient identified: 06-Feb-2024 prescription: Time Out: 06-Feb-2024 1137 Conductivity: 13.90 Calcium: 3 Dialysate Temperature: 37.00 Potassium: 2 Bicarb: 40 Reading confirmation: 06-Feb-2024 105 Conductivity: 13.90 pH: 7.10 Replacement All Steps Completed: [x] YES [ ] NO Alarm Test Complete: 06-Feb-2024 103 Alarms Audible: 06-Feb-2024 1030 Checked prescription: 06-Feb-2024 1030 Checked conductivity: 06-Feb-2024 1030 Double checked 06-Feb-2024 Patient identified: 06-Feb-2024 prescription: Time Out: 06-Feb-2024 1137 Conductivity: 13.90 K+: 2 pH: 7.10 Ca+: 3 Dialysate Temp (C): 37.00 = Material ====== MATERIAL / DIALYZER REUSE Start Machine (#): C - 19 Time Failed: Replacement Machine: Replaced time: Reason: Dialyzer Label: Nipro Elisio - 25H Reprocessed #: Dialyzer Lot: Pre-dialysis Dialyzer Rating: Check 1: 06-Feb-2024 1105 JEFF BISHOP Check 2: 06-Feb-2024 1055 ISSA ABRAMS Location: [id number] /edwar/ Issa Abrams RN REGISTERED NURSE Signed: 02/06/2024 16:21 ISSA ABRAMS [facility] Feb 06, 2024 01:28 PM DIALYSIS NURSING N OTE: LOCAL TITLE: DIALYSIS NOTE STANDARD TITLE: DIALYSIS NURSING NOTE DATE OF NOTE: FEB 06, 2024@13:28 ENTRY DATE: FEB 06, 2024@13:28:40 AUTHOR: CURT JEONG I EXP COSIGNER: URGENCY: STATUS: COMPLETED Last date of foot check Apr 27,2024 Normal Temperature: Right foot Yes Left foot Yes Description if abnormal Pulses Palpable: Right foot Yes Left foot Yes Pulses Dopplered N/A Sensation To Touch: Right foot Yes Left foot Yes Numbness Right foot No Left foot No Color normal for race: Right foot Yes Left foot Yes Location if abnormal Description Toenails: Elongated No Ingrown No Discolored No Thickened No Wound: Open Wound/Callus No Location Description Provider notified (applicable if patient has wound) Lower extremity amputation N/A Diabetes Yes Smoking No PAVE Risk Assessment Level(0=normal risk,1=low risk,2=moderate risk, 3=high risk) 3 Education provided on foot care discussed foot care /es/ CURT JEONG LPN LICENSE PRACTICAL NURSE Signed: 02/06/2024 13:39 CURT JEONG I [facility]
--- OUTSIDE RECORDS SUMMARY | 2024-12-05 00:22 | XMS_ITS | Encounter Summary ---
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 Date/Time Encounter Type Encounter Description Reason Provider Source Jan 08, 2024 03:48 PM OFF/OP EST FEBRUARY X REQ PHY/QHP RENAL/NEPHROL(EXCEP T DIALYSIS) ICD-10-CM N18.6 End stage renal disease MARCEL OLIVARES Encounter Template Text not used by [place] Assessments - Encounter Diagnoses This section includes the primary and secondary diagnoses documented for the Encounter. Date/Time Primary/Secondary Diagnosis Diagnosis Name Provider Source Jan 15, 2024 12:45 PM PRIMARY End stage renal disease MARCEL OLIVARES [facility] Plan of Treatment: Future Appointments (+ 6 months) and Future Tests (+/- 45 days) The Plan of Treatment section includes future care activities for the patient from all [place] treatmentfacilities. This section includes future appointments and future orders which are active, pending or scheduled. Future Appointments This section includes appointments that were scheduled to occur 6 months from the date of the Encounter, up to a maximum of 20 appointments. The data comes from all [place] treatment facilities. Appointment Date/Time Appointment Type Appointme nt Facility Name Jan 12, 2024 10:30 AM AMBULATORY - MEDICINE [facility] Jan 21, 2024 12:30 PM AMBULATORY - MEDICINE [facility] Jan 23, 2024 12:30 PM AMBULATORY - MEDICINE [facility] Jan 25, 2024 02:30 PM AMBULATORY - MEDICINE [facility] Jan 26, 2024 12:30 PM AMBULATORY - MEDICINE [facility] Jan 28, 2024 12:30 PM [facility]BULATORY - MEDICINE [facility] Feb 02, 2024 12:30 PM AMBULATORY - MEDICINE [facility] Feb 04, 2024 12:15 PM AMBULATORY - MEDICINE [facility] Feb 06, 2024 12:30 PM AMBULATORY - MEDICINE [facility] Feb 09, 2024 12:30 PM AMBULATORY - MEDICINE [facility] February 11, 2024 12:30 PM AMBULATORY - MEDICINE [facility] February 13, 2024 12:30 PM AMBULATORY - MEDICINE [facility] February 15, 2024 08:00 AM AMBULATORY - NONE [facility] February 15, 2024 08:30 AM AMBULATORY - MEDICINE [facility] Apr 05, 2024 09:30 AM AMBULATORY - MEDICINE [facility] Apr 27, 2024 07:30 AM AMBULATORY - SURGERY . [facility] May 02, 2024 08:00 AM AMBULATORY - NONE [facility] May 02, 2024 08:30 AM AMBULATORY - MEDICINE [facility] May 16, 2024 02:00 PM AMBULATORY - MEDICINE [facility] Lab Results: +/- 30 days of the encounter This section includes the Chemistry and Hematology Lab Results on record with [place] for the patient. Radiology Reports and Pathology Reports are provided separately, in subsequent sections. Lab Results This section contains the Chemistry/Hematology Results that were resulted 30 days before or 30 daysafter the date of the Encounter. Date/Time Source Result Type Result - Unit Interpretation Reference Range Comment Feb 04, 2024 05:00 PM [facility] URR-POST PANEL (STL) Specimen Type: PLASMA No comment entered. Ordering Provider: KYLER PURCELL Report Released Date/Time: Feb 04, 2024 01:42 PM Reporting Lab: [address] [address] Performing Lab: [address] [address] BUN-POST DIALYSIS 16.2 mg/dL 9.0-25.0 URR (STL) 70.4 67.0-100.0 Feb 04, 2024 12:45 PM [facility] RENAL PANEL Specimen Type: PLASMA Comment: No hemolysis noted. Ordering Provider: KYLER PURCELL Report Released Date/Time: Feb 04, 2024 01:42 PM Reporting Lab: [address] [address] Performing Lab: [address] [address] CREATININE 6.97 mg/dL H 0.7-1.3 UREA NITROGEN 54.7 mg/dL H 9.0-25.0 GLUCOSE 134 mg/dL H 72-99 SODIUM 142 meq/L 136-145 POTASSIUM 4.0 meq/L 3.5-5 CHLORIDE 105 meq/L 98-107 CARBON DIOXIDE 24 meq/L 22-31 CALCIUM 9.7 mg/dL 8.4-10.4 PHOSPHOROUS 4.8 mg/dL H 2.3-4.7 ALBUMIN 3.9 g/dL 3.4-5 EGFR (CKD-EPI 2020) 7.9 LL >60 Feb 02, 2024 04:30 PM [facility] URR-POST PANEL (STL) Specimen Type: PLASMA No comment entered. Ordering Provider: KYLER PURCELL Report Released Date/Time: Feb 02, 2024 03:39 PM Reporting Lab: [address] [address] Performing Lab: [address] [address] BUN-POST DIALYSIS 22.9 mg/dL 9.0-25.0 URR (STL) 60.9 L 67.0-100.0 Feb 02, 2024 11:50 AM [facility] RENAL PANEL Specimen Type: PLASMA Comment: No hemolysis noted. Ordering Provider: KYLER PURCELL Report Released Date/Time: Feb 02, 2024 07:35 AM Reporting Lab: [address] [address] Performing Lab: [address] [address] CREATININE 8.34 mg/dL H 0.7-1.3 UREA NITROGEN 58.6 mg/dL H 9.0-25.0 GLUCOSE 169 mg/dL H 72-99 SODIUM 142 meq/L 136-145 POTASSIUM 4.6 meq/L 3.5-5 CHLORIDE 111 meq/L H 98-107 CARBON DIOXIDE 20 meq/L L 22-31 CALCIUM 9.2 mg/dL 8.4-10.4 PHOSPHOROUS 3.6 mg/dL 2.3-4.7 ALBUMIN 3.7 g/dL 3.4-5 EGFR (CKD-EPI 2020) 6.4 LL >60 Feb 01, 2024 11:00 PM [facility] 24H UR CHEM PANEL (STL) Specimen Type: 24-HOUR URINE No comment entered. Ordering Provider: KYLER PURCELL Report Released Date/Time: Jan 28, 2024 04:55 PM Reporting Lab: [place] [address] [facility] [address] Performing Lab: [address] [address] VOLUME 3289 mL SODIUM 24-HOUR URINE 226.941 H 40-220 POTASSIUM 24-HOUR URINE 35.8501 25-125 CHLORIDE 24-HOUR URINE 171.028 110-250 PROTEIN 24-HOUR URINE 1986.556 H 0-299.9 CREATININE 24-HOUR URINE [phone] Jan 28, 2024 05:29 PM [facility] CBC Specimen Type: BLOOD No comment entered. Ordering Provider: KYLER PURCELL Report Released Date/Time: Jan 28, 2024 05:07 PM Reporting Lab: [address] [address] Performing Lab: [address] [address] WBC 8.9 10*3/uL 3.6-11.2 RBC 2.96 10*6/uL [...] 10*3/uL 0.00-0.20 Jan 26, 2024 01:00 PM [facility] PTH, INTACT (STL) Specimen Type: SERUM No comment entered. Ordering Provider: KYLER PURCELL Report Released Date/Time: Jan 21, 2024 03:14 PM Reporting Lab: [address] [address] Performing Lab: [address] [address] PTH, INTACT (STL) 141.40 pg/mL H 8.7-77.7 Jan 26, 2024 01:00 PM [facility] RENAL PANEL Specimen Type: PLASMA Comment: No hemolysis noted. Ordering Provider: KYLER PURCELL Report Released Date/Time: Jan 21, 2024 03:14 PM Reporting Lab: [address] [address] Performing Lab: [address] [address] CREATININE 8.25 mg/dL H 0.7-1.3 UREA NITROGEN 63.1 mg/dL H 9.0-25.0 GLUCOSE 157 mg/dL H 72-99 SODIUM 137 meq/L 136-145 POTASSIUM 4.2 meq/L 3.5-5 CHLORIDE 100 meq/L 98-107 CARBON DIOXIDE 26 meq/L 22-31 CALCIUM 9.6 mg/dL 8.4-10.4 PHOSPHOROUS 4.9 mg/dL H 2.3-4.7 ALBUMIN 3.7 g/dL 3.4-5 EGFR (CKD-EPI 2020) 6.5 LL >60 Jan 26, 2024 01:00 PM [facility] FERRITIN Specimen Type: SERUM No comment entered. Ordering Provider: KYLER PURCELL Report Released Date/Time: Jan 21, 2024 03:14 PM Reporting Lab: [address] [address] Performing Lab: [address] [address] FERRITIN 118.78 ng/mL 22-275 Jan 26, 2024 01:00 PM [facility] IRON/TIBC PROFILE Specimen Type: SERUM No comment entered. Ordering Provider: KYLER PURCELL Report Released Date/Time: Jan 21, 2024 03:14 PM Reporting Lab: [address] [address] Performing Lab: [address] [address] TIBC 225 ug/dL L 250-450 TRANSFERRIN 180 mg/dL 163-344 IRON SATURATION 23 20-50 IRON 52 ug/dL L 65-175 Jan 26, 2024 01:00 PM [facility] CBC Specimen Type: BLOOD No comment entered. Ordering Provider: KYLER PURCELL Report Released Date/Time: Jan 21, 2024 03:14 PM Reporting Lab: [address] [address] Performing Lab: [address] [address] WBC 7.8 10*3/uL 3.6-11.2 RBC 2.95 10*6/uL [...] 10*3/uL 0.00-0.20 Jan 21, 2024 12:55 PM [facility] PT/INR NEW (STL-MD) Specimen Type: PLASMA No comment entered. Ordering Provider: KYLER PURCELL Report Released Date/Time: Jan 21, 2024 12:43 PM Reporting Lab: [address] [address] Performing Lab: [address] [address] PROTIME 15.9 s H 9.4-12.5 INR VALUE 1.4 {INR} Jan 21, 2024 12:55 PM [facility] RENAL PANEL Specimen Type: PLASMA Comment: No hemolysis noted. Ordering Provider: KYLER PURCELL Report Released Date/Time: Jan 21, 2024 12:41 PM Reporting Lab: [address] [address] Performing Lab: [address] [address] CREATININE 8.11 mg/dL H 0.7-1.3 UREA NITROGEN 82.6 mg/dL H 9.0-25.0 GLUCOSE 114 mg/dL H 72-99 SODIUM 139 meq/L 136-145 POTASSIUM 5.1 meq/L H 3.5-5 CHLORIDE 109 meq/L H 98-107 CARBON DIOXIDE 19 meq/L L 22-31 CALCIUM 9.3 mg/dL 8.4-10.4 PHOSPHOROUS 4.1 mg/dL 2.3-4.7 ALBUMIN 3.8 g/dL 3.4-5 EGFR (CKD-EPI 2020) 6.6 LL >60 Jan 14, 2024 11:55 AM [facility] RENAL PANEL Specimen Type: PLASMA Comment: No hemolysis noted. Ordering Provider: KYLER PURCELL Report Released Date/Time: Jan 13, 2024 07:58 AM Reporting Lab: [address] [address] Performing Lab: [address] [address] CREATININE 8.05 mg/dL H 0.7-1.3 UREA NITROGEN 70.7 mg/dL H 9.0-25.0 GLUCOSE 155 mg/dL H 72-99 SODIUM 140 meq/L 136-145 POTASSIUM 5.1 meq/L H 3.5-5 CHLORIDE 107 meq/L 98-107 CARBON DIOXIDE 21 meq/L L 22-31 CALCIUM 9.6 mg/dL 8.4-10.4 PHOSPHOROUS 4.8 mg/dL H 2.3-4.7 ALBUMIN 4.1 g/dL 3.4-5 EGFR (CKD-EPI 2020) 6.7 LL >60 Jan 11, 2024 11:36 AM [facility] GLUCOSE,BLOOD-poct (STL) Specimen Type: BLOOD Comment: Test Performed by: [id number] Meter #: [id number] Ordering Provider: LIDIA HUYNH Report Released Date/Time: Jan 11, 2024 11:50 AM Reporting Lab: [address] [address] Performing Lab: [address] [address] GLUCOSE,BLOOD- poct (STL) 106 mg/dL H 72-Jan 11, 2024 11:07 AM [facility] GLUCOSE,BLOOD-poct (STL) Specimen Type: BLOOD Comment: Test Performed by: [id number] Meter #: [id number] Ordering Provider: LINOMED Report Released Date/Time: Jan 11, 2024 11:18 AM Reporting Lab: [address] [address] Performing Lab: [address] [address] GLUCOSE,BLOOD- poct (STL) 109 mg/dL H 72-Jan 11, 2024 05:12 AM [facility] GLUCOSE,BLOOD-poct (STL) Specimen Type: BLOOD Comment: Test Performed by: [id number] Meter #: [id number] Ordering Provider: LINOMED Report Released Date/Time: Jan 11, 2024 05:25 AM Reporting Lab: [place] [address] [facility] [address] Performing Lab: [place] [address] [facility] [address] GLUCOSE,BLOOD- poct (STL) 88 mg/dL 72-Jan 10, 2024 08:19 PM [facility] GLUCOSE,BLOOD-poct (STL) Specimen Type: BLOOD Comment: Test Performed by: [id number] Meter #: [id number] Ordering Provider: LIDIA HUYNH Report Released Date/Time: Jan 10, 2024 08:31 PM Reporting Lab: [place] [address] [facility] [address] Performing Lab: [place] [address] [facility] [address] GLUCOSE,BLOOD- poct (STL) 153 mg/dL H -Jan 10, 2024 04:15 PM [facility] GLUCOSE,BLOOD-poct (STL) Specimen Type: BLOOD Comment: Test Performed by: [id number] Meter #: [id number] Ordering Provider: LIDIA HUYNH Report Released Date/Time: Jan 10, 2024 05:05 PM Reporting Lab: [place] [address] [facility] [address] Performing Lab: [place] [address] [facility] [address] GLUCOSE,BLOOD- poct (STL) 84 mg/dL -Jan 10, 2024 11:31 AM [facility] GLUCOSE,BLOOD-poct (STL) Specimen Type: BLOOD Comment: Test Performed by: [id number] Meter #: [id number] Ordering Provider: LIDIA HUYNH Report Released Date/Time: Jan 10, 2024 12:03 PM Reporting Lab: [address] [address] Performing Lab: [place] [address] [facility] [address] GLUCOSE,BLOOD- poct (STL) 99 mg/dL 72-Jan 10, 2024 04:45 AM [facility] GLUCOSE,BLOOD-poct (STL) Specimen Type: BLOOD Comment: Test Performed by: [id number] Meter #: [id number] Ordering Provider: LIDIA HUYNH Report Released Date/Time: Jan 10, 2024 05:29 AM Reporting Lab: [place] [address] [facility] [address] Performing Lab: [place] [address] [facility] [address] GLUCOSE,BLOOD- poct (STL) 109 mg/dL H 72-Jan 09, 2024 08:08 PM [facility] GLUCOSE,BLOOD-poct (STL) Specimen Type: BLOOD Comment: Test Performed by: [id number] Meter #: [id number] Ordering Provider: LIDIA HUYHN Report Released Date/Time: Jan 09, 2024 08:28 PM Reporting Lab: [place] [address] [facility] [address] Performing Lab: [place] [address] [facility] [address] GLUCOSE,BLOOD- poct (STL) 110 mg/dL H -Jan 09, 2024 04:19 PM [facility] GLUCOSE,BLOOD-poct (STL) Specimen Type: BLOOD Comment: Test Performed by: [id number] Meter #: [id number] Ordering Provider: LIDIA HUYNH Report Released Date/Time: Jan 09, 2024 04:34 PM Reporting Lab: [place] [address] [facility] [address] Performing Lab: [place] [address] [facility] [address] GLUCOSE,BLOOD- poct (STL) 119 mg/dL H 72-Jan 09, 2024 02:30 PM [facility] MAGNESIUM Specimen Type: PLASMA Comment: No hemolysis noted. Ordering Provider: TATI ZAVALA Report Released Date/Time: Jan 09, 2024 07:51 AM Reporting Lab: [place] [address] [facility] [address] Performing Lab: [address] [address] MAGNESIUM 1.6 mg/dL 1.6-2.6 Jan 09, 2024 02:30 PM [facility] RENAL PANEL Specimen Type: PLASMA Comment: No hemolysis noted. Ordering Provider: TATI ZAVALA Report Released Date/Time: Jan 09, 2024 07:51 AM Reporting Lab: [address] [address] Performing Lab: [address] [address] CREATININE 5.13 mg/dL H 0.7-1.3 UREA NITROGEN 46.2 mg/dL H 9.0-25.0 GLUCOSE 177 mg/dL H 72-99 SODIUM 136 meq/L 136-145 POTASSIUM 4.0 meq/L 3.5-5 CHLORIDE 101 meq/L 98-107 CARBON DIOXIDE 23 meq/L 22-31 CALCIUM 8.6 mg/dL 8.4-10.4 PHOSPHOROUS 2.7 mg/dL 2.3-4.7 ALBUMIN 3.6 g/dL 3.4-5 EGFR (CKD-EPI 2020) 11.5 LL >60 Jan 09, 2024 12:27 PM [facility] GLUCOSE,BLOOD-poct (STL) Specimen Type: BLOOD Comment: Test Performed by: [id number] Meter #: [id number] Ordering Provider: LIDIA HUYNH Report Released Date/Time: Jan 09, 2024 12:38 PM Reporting Lab: [address] [address] Performing Lab: [address] [address] GLUCOSE,BLOOD- poct (STL) 98 mg/dL 72-99 Jan 09, 2024 07:15 AM [facility] GLUCOSE,BLOOD-poct (STL) Specimen Type: BLOOD Comment: Test Performed by: [id number] Meter #: [id number] Ordering Provider: TWOD,MED Report Released Date/Time: Jan 09, 2024 07:58 AM Reporting Lab: [place] [address] [facility] [address] Performing Lab: [address] [address] GLUCOSE,BLOOD- poct (STL) 86 mg/dL 72-99 Jan 08, 2024 09:04 PM [facility] GLUCOSE,BLOOD-poct (STL) Specimen Type: BLOOD Comment: Test Performed by: [id number] Meter #: [id number] Ordering Provider: LIDIA HUYNH Report Released Date/Time: Jan 08, 2024 09:47 PM Reporting Lab: [address] [address] Performing Lab: [address] [address] GLUCOSE,BLOOD- poct (STL) 90 mg/dL 72-99 Jan 08, 2024 09:01 PM [facility] HEP B CORE AB TOTAL. (STL) Specimen Type: SERUM No comment entered. Ordering Provider: EFREN TAYLOR Report Released Date/Time: Jan 08, 2024 02:35 PM Reporting Lab: [address] [address] Performing Lab: [place] [address] [facility] [address] HEP B CORE AB TOTAL. (STL) Nonreactive Nonreactive Jan 08, 2024 09:01 PM [facility] HEPATITIS B SURFACE AB PNL Specimen Type: SERUM No comment entered. Ordering Provider: EFREN TAYLOR Report Released Date/Time: Jan 08, 2024 02:35 PM Reporting Lab: [address] [address] Performing Lab: [address] [address] HEP B Surface Ab-HBsAB (STL) REACTIVE m[IU]/mL Nonreactive HEP Bs AB-QUANT (STL) 63.22 m[IU]/mL Jan 08, 2024 09:01 PM [facility] HEP HB S Ag (AUSRIA) (STL) Specimen Type: SERUM No comment entered. Ordering Provider: EFREN TAYLOR Report Released Date/Time: Jan 08, 2024 02:35 PM Reporting Lab: [place] [address] [facility] [address] Performing Lab: [place] [address] [facility] [address] HEP HB S Ag (A[place]RIA) (STL) Nonreactive Nonreactive Jan 08, 2024 04:47 PM [facility] GLUCOSE,BLOOD-poct (STL) Specimen Type: BLOOD Comment: Test Performed by: [id number] Meter #: [id number] Ordering Provider: LIDIA HUYNH Report Released Date/Time: Jan 08, 2024 05:09 PM Reporting Lab: [place] [address] [facility] [address] Performing Lab: [place] [address] [facility] [address] GLUCOSE,BLOOD- poct (STL) 95 mg/dL 72-99 Jan 08, 2024 11:26 AM [facility] GLUCOSE,BLOOD-poct (STL) Specimen Type: BLOOD Comment: Test Performed by: [id number] Meter #: [id number] Ordering Provider: LIDIA HUYNH Report Released Date/Time: Jan 08, 2024 11:37 AM Reporting Lab: [place] [address] [facility] [address] Performing Lab: [place] [address] [facility] [address] GLUCOSE,BLOOD- poct (STL) 105 mg/dL H 72-99 Jan 08, 2024 07:01 AM [facility] RENAL PANEL Specimen Type: PLASMA Comment: No hemolysis noted. Ordering Provider: LIZETTE GRIFFIN Report Released Date/Time: Jan 07, 2024 11:24 PM Reporting Lab: [place] [address] [facility] [address] Performing Lab: [facility] [address] [facility] [address] CREATININE 8.50 mg/dL H 0.7-1.3 UREA NITROGEN 88.2 mg/dL H 9.0-25.0 GLUCOSE 70 mg/dL L 72-99 SODIUM 139 meq/L 136-145 POTASSIUM 5.4 meq/L H 3.5-5 CHLORIDE 110 meq/L H 98-107 CARBON DIOXIDE 19 meq/L L 22-31 CALCIUM 9.4 mg/dL 8.4-10.4 PHOSPHOROUS 5.1 mg/dL H 2.3-4.7 ALBUMIN 3.8 g/dL 3.4-5 EGFR (CKD-EPI 2020) 6.3 LL >60 Jan 08, 2024 06:37 AM [facility] GLUCOSE,BLOOD-poct (STL) Specimen Type: BLOOD Comment: Test Performed by: [id number] Meter #: [id number] Ordering Provider: LIDIA HUYNH Report Released Date/Time: Jan 08, 2024 06:48 AM Reporting Lab: [place] [address] [facility] [address] Performing Lab: [address] [address] GLUCOSE,BLOOD- poct (STL) 86 mg/dL 72-99 Jan 07, 2024 11:58 PM [facility] RENAL PANEL Specimen Type: PLASMA Comment: No hemolysis noted. Ordering Provider: LIZETTE GRIFFIN Report Released Date/Time: Jan 07, 2024 11:38 PM Reporting Lab: [place] [address] [facility] [address] Performing Lab: [address] [address] CREATININE 8.68 mg/dL H 0.7-1.3 UREA NITROGEN 92.6 mg/dL H 9.0-25.0 GLUCOSE 143 mg/dL H 72-99 SODIUM 138 meq/L 136-145 POTASSIUM 5.0 meq/L 3.5-5 CHLORIDE 111 meq/L H 98-107 CARBON DIOXIDE 17 meq/L L 22-31 CALCIUM 8.8 mg/dL 8.4-10.4 PHOSPHOROUS 3.8 mg/dL 2.3-4.7 ALBUMIN 3.8 g/dL 3.4-5 EGFR (CKD-EPI 2020) 6.1 LL >60 Jan 07, 2024 11:36 PM [facility] GLUCOSE,BLOOD-poct (STL) Specimen Type: BLOOD Comment: Test Performed by: [id number] Meter #: [id number] Ordering Provider: LIDIA MOSCOSO Report Released Date/Time: Jan 07, 2024 11:47 PM Reporting Lab: [facility] [address] [facility] [address] Performing Lab: [address] [address] GLUCOSE,BLOOD- poct (STL) 157 mg/dL H 72-99 Jan 07, 2024 11:30 PM [facility] MRSA SURVL NARES DNA Specimen Type: [...] Jan 07, 2024 11:24 PM Reporting Lab: [facility] [address] [facility] [address] Performing Lab: [facility] [address] [facility] [address] MRSA SURVL NARES DNA Negative Negative Jan 07, 2024 09:08 PM [facility] POTASSIUM Specimen Type: PLASMA Comment: No hemolysis noted. Ordering Provider: ANNA CALI Report Released Date/Time: Jan 07, 2024 08:38 PM Reporting Lab: [facility] [address] [facility] [address] Performing Lab: [facility] [address] [facility] [address] POTASSIUM 5.7 meq/L H 3.5-5 Jan 07, 2024 07:30 PM [facility] URINALYSIS (STL-PB) Specimen Type: URINE No comment entered. Ordering Provider: ANNA CALI Report Released Date/Time: Jan 07, 2024 05:18 PM Reporting Lab: [address] [address] Performing Lab: [address] [address] URINE COLOR Colorless Yellow U.BILIRUBIN Negative mg/dL [...] 1.015 1.005-1.029 Jan 07, 2024 05:30 PM [facility] BRAIN NATRIURETIC PEPTIDE Specimen Type: PLASMA No comment entered. Ordering Provider: GRACIELA MANN Report Released Date/Time: Jan 07, 2024 04:59 PM Reporting Lab: [address] [address] Performing Lab: [address] [address] BRAIN NATRIURETIC PEPTIDE 59.0 pg/mL 0-100 Jan 07, 2024 05:30 PM [facility] COVID-19 DIAGNOSTIC (FLU/RSV)(STL) Specimen Type: [...] Jan 07, 2024 04:59 PM Reporting Lab: [address] [address] Performing Lab: [address] [address] INFLUENZA A Negative Negative INFLUENZA B Negative Negative COVID-19 (STL-PB) Not Detected Not Detected RSV (Cepheid) NEGATIVE Negative Jan 07, 2024 05:30 PM [facility] COMPREHENSIVE METABOLIC PANEL Specimen Type: PLASMA Comment: Aspartate Transaminase result may show positive bias due to hemolysis. K result canceled due to hemolysis. Specimen moderately hemolyzed. K cancelled due to moderate hemolysis. Called to : Phillip Cee RN at: 1902 on: 01/07/2024 by: TENNILLE Ordering Provider: GRACIELA MANN Report Released Date/Time: Jan 07, 2024 04:59 PM Reporting Lab: [address] [address] Performing Lab: [address] [address] CREATININE 8.88 mg/dL H 0.7-1.3 UREA NITROGEN [...] LL >60 Jan 07, 2024 05:30 PM [facility] CBC Specimen Type: BLOOD No comment entered. Ordering Provider: GRACIELA MANN Report Released Date/Time: Jan 07, 2024 04:59 PM Reporting Lab: [address] [address] Performing Lab: [address] [address] WBC 9.2 10*3/uL 3.6-11.2 RBC 3.81 10*6/uL [...] 10*3/uL 0.00-0.20 Dec 11, 2023 12:02 PM [facility] RENAL PANEL Specimen Type: PLASMA Comment: No hemolysis noted. Ordering Provider: KYLER PURCELL Report Released Date/Time: Dec 10, 2023 03:57 PM Reporting Lab: [address] [address] Performing Lab: [address] [address] CREATININE 8.13 mg/dL H 0.7-1.3 UREA NITROGEN 69.9 mg/dL H 9.0-25.0 GLUCOSE 163 mg/dL H 72-99 SODIUM 140 meq/L 136-145 POTASSIUM 5.4 meq/L H 3.5-5 CHLORIDE 106 meq/L 98-107 CARBON DIOXIDE 22 meq/L 22-31 CALCIUM 8.6 mg/dL 8.4-10.4 PHOSPHOROUS 3.7 mg/dL 2.3-4.7 ALBUMIN 3.9 g/dL 3.4-5 EGFR (CKD-EPI 2020) 6.6 LL >60 Dec 11, 2023 12:02 PM [facility] PTH, INTACT (STL) Specimen Type: SERUM No comment entered. Ordering Provider: KYLER PURCELL Report Released Date/Time: Dec 10, 2023 03:57 PM Reporting Lab: [address] [address] Performing Lab: [address] [address] PTH, INTACT (STL) 527.70 pg/mL H 8.7-77.7 Dec 11, 2023 12:02 PM [facility] CBC Specimen Type: BLOOD No comment entered. Ordering Provider: KYLER PURCELL Report Released Date/Time: Dec 10, 2023 03:57 PM Reporting Lab: [address] [id number] Performing Lab: [address] [address] WBC 8.4 10*3/uL 3.6-11.2 RBC 3.84 10*6/uL [...] 0.00-0.20 Dec 11, 2023 12:02 PM [facility] MAGNESIUM Specimen Type: PLASMA No comment entered. Ordering Provider: KYLER PURCELL Report Released Date/Time: Dec 11, 2023 10:17 AM Reporting Lab: [facility] [address] [facility] [address] Performing Lab: [facility] [address] [facility] [address] MAGNESIUM 1.3 mg/dL L 1.6-2.6 Vital Signs: All taken on the encounter date This section contains inpatient and outpatient Vital Signs collected on the date of the Encounter. Date/Time Temperature Pulse Blood Pressure Respiratory Rate SP02 Pain Height Weight Body Mass Index Source Jan 08, 2024 11:41 PM 0 [facility] Jan 08, 2024 10:45 PM 7 [facility] Jan 08, 2024 09:03 PM 97.9 72 155/87 19 99 7 [facility] Jan 08, 2024 04:42 PM 97.9 65 143/78 18 95 6 [facility] Jan 08, 2024 09:14 AM 6 [facility] Social History: Smoking Status (Most current) and Tobacco Use (All prior to encounter date) This section includes the most current, and the historical, smoking and tobacco- related health factors from the [place] facility where the Encounter took place. Current Smoking Status This section includes the most current smoking, or tobacco-related health factor, from the [place] facility where the Encounter took place. Date/Time Current Smoking Status Comment Facil ity Jun 21, 2023 01:14 PM ORYX ADMIT TOBACCO SCREEN NO [facility] Tobacco Use History This section includes a history of the smoking, or tobacco-related health factors, that were collected on or before the date of the Encounter. The data comes from the [place] facility where the Encounter took place. Date/Time Smoking Status/Tobacco Use Comment F acility Dec 12, 2022 04:00 PM ORYX ADMIT TOBACCO SCREEN NO [facility] Jun 25, 2022 03:24 PM VA-TOBACCO FORMER USER [facility] Jun 25, 2022 03:24 PM VA-TOBACCO QUIT 15 YRS OR MORE [facility] Dec 23, 2021 04:59 PM ORYX ADMIT TOBACCO SCREEN REFUSED [facility] May 24, 2020 11:27 PM ORYX ADMIT TOBACCO SCREEN NO [facility] Dec 12, 2019 10:24 AM VA-TOBACCO FORMER USER [facility] Dec 12, 2019 10:24 AM VA-TOBACCO QUIT 15 YRS OR MORE [facility] Aug 03, 2019 02:11 AM ORYX ADMIT TOBACCO SCREEN REFUSED [facility] Oct 12, 2018 01:14 AM QUIT TOBACCO >7 YEARS AGO [facility] Oct 11, 2018 03:33 PM ORYX ADMIT TOBACCO SCREEN NO [facility] Sep 07, 2018 09:13 PM ORYX ADMIT TOBACCO SCREEN NO [facility] Sep 07, 2018 07:52 PM QUIT TOBACCO >7 YEARS AGO [facility] Advance Directives: All historical and current Section Date Range: From patient's date of to the date document was created. This section includes ALL of a patient's completed or amended [place] Advance and Rescinded Directives. The entries below indicate that a directive exists for the patient, but an actual copy is not included with this document. The data comes from all [place] facilities. Date Advance Directives Provider Source Dec 17, 2022 ADVANCE DIRECTIVE BIJAN MERRITT [facility] Feb 09, 2020 ADVANCE DIRECTIVE DISCUSSION MELY LUCIANO [facility] Feb 02, 2018 ADVANCE DIRECTIVE [facility]ELIATANIBE[facility]JEAN[facility] Nov 29, 2006 ADVANCE DIRECTIVE [facility] Radiology Reports: +/- 30 days of [...] the Encounter. The data comes from all [place] treatment facilities. Date/Time Radiology Report Provider Source Jan 07, 2024 08:01 PM CHEST PORTABLE: GIANNANAIG [id number] -[id number] M Exm Date: JAN 07, 2024@20:01 Req Phys: ANNA CALI Loc: -EMERGENCY DEPT 3RD SHIFT (R Img Loc: -MAIN RADIOLOGY SUITE Service: Unknown (Case [id number] COMPLETE) CHEST PORTABLE (RAD Detailed) CPT:77286 Proc Modifiers : Portable Reason for Study: weakness, ESRD Clinical History: Report Status: Verified Date Reported: JAN 07, 2024 Date Verified: JAN 07, 2024 Rice Drier E-Sig: Report: CHEST PORTABLE HISTORY: weakness, ESRD COMPARISON: July 26, 2023 TECHNIQUE: One view of the chest was [facility] the local [facility]. images were received by the [place] National [facility] ([facility]) for interpretation. FINDINGS: Bilateral peribronchial thickening. Patchy bilateral lower lobe lung opacities. Mildly tortuous aorta. No acute bony abnormalities. Impression: 1. Bilateral peribronchial thickening. 2. Patchy bilateral lung opacities likely represent atelectasis. 3. No pneumothorax. READING PHYSICIAN: Madhu Patton M.D. -[phone] 01/07/2024 19:10 PDT [facility] National Teleradiology Program [phone] (For Medical Practitioner Use Only) Attention Patients / Veterans: If you have questions or concerns about these test results, please contact your ordering provider or primary care team. Primary Interpreting Staff: RADIOLOGY,OUTSIDE SERVICE, Staff Physician / RADIOLOGY,OUTSIDE SERVICE [facility] Encounter Notes: All associated encounter notes This section contains the clinical notes associated to the Encounter. Date/Time Encounter Note(s) Provider Source Jan 08, 2024 03:49 PM NEPHROLOGY PHYSICI AN NOTE: LOCAL TITLE: RENAL TRANSPLANT [facility] STANDARD TITLE: NEPHROLOGY PHYSICIAN NOTE DATE OF NOTE: JAN 08, 2024@15:49 ENTRY DATE: JAN 08, 2024@15:49:07 AUTHOR: MARCEL OLIVARES EXP COSIGNER: URGENCY: STATUS: COMPLETED Mr. Katz was being worked up for renal transplant at the [facility], but his case had been placed on hold as he had lost his support person. He was unable to provide a new support person by their line of 12/10/23 and his case was closed there as of 12/15/23. I talked with Mr. Katz today and he does have a new support person, however both he and that individual still work and he would prefer to not have to travel out of town for transplant. He notes he was just activated on the renal transplant at [facility] a few days ago and does have someone who is wanting to donate a kidney to him. /edwar/ Saige Zafar PARossyC PHYSICIAN MAIL DISTRIBUTION CLERK - NEPHROLOGY Signed: 01/15/2024 12:45 Receipt Acknowledged By: 01/15/2024 16:28 /edwar/ MERY TREJO MD STAFF PHYSICIAN,NEPHMARCEL MCKOY [facility]
--- OUTSIDE RECORDS SUMMARY | 2024-12-05 00:22 | XMS_ITS | Patient Health Summary ---
Author Organization [facility] Address [address] [place] [address] Care Team Providers Care Kicking Machine Operator Name Role Phone Thao Mcqueen Primary Care Provider Unavailab le Note from [facility],non-owned Affiliates and Associated Physician Practices is amultiple site organization consisting of ambulatory clinics and hospital sitesin [place], [place], [place] and [place]. This disclosure is being madepursuant to the Care Everywhere program and may not contain all information available regarding this patient. Last updated 18.[facility] Allergies * Morphine(Other) -Medium Criticality Medications * [...] dysfunction-associ ated steatotic liver disease (MASLD) 11/21/2024 nursing home (current) use of anticoagulants 2024 ESRD (end stage renal disease) 10/24/2024 Dependence on renal dialysis 10/24/2024 Pre-kidney transplant, listed 10/24/2024 Atrial fibrillation, unspecified type 10/24/2024 Hypertension, unspecified type 10/24/2024 Type 2 diabetes mellitus wit h other kidney complication, 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 halfway insulin use 10/24/2024 Hypertension 10/19/2024 Type 2 [...] Comments Blood Pressure 127/55 11/18/2024 10:39 AM 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 Pulse 57 11/18/2024 10:39 AM 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 Temperature 36.5 C (97.7 F) 11/18/2024 10:39 AM 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 Respiratory Rate 20 08/22/2024 9:01 AM 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 Oxygen Saturation 100% 11/18/2024 10: 39 AM 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 Inhaled Oxygen Concentration - - Weight 100.2 kg (220 lb 14.4 oz) 2024 10:00 AM 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 Stated Height 176.5 cm (5' 9.5 ) 11/23/2024 10 :00 AM 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 Body Mass Index 32.15 11/23/2024 10:00 AM 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 Medical Devices Implanted Type Area Transfer Table Operator Device Identifier Shelf Expiration Date Model / Serial / Lot Prosthesis-07/12 Implanted:07/25 (Quantity not on file) Prosthesis Penile Prosthesis Description:Coloplast Titan 22 Penile implant and reservoir Procedures * CA LIVER ELASTOGRAPHY(Performed 11/18/2024) Performed for Pre-kidney transplant, listed, 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), ESRD (end stage renal disease) (HCC), Hypertension, unspecified type, Type 2 diabetes mellitus with other kidney complication, 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 halfway insulin use (HCC) * US RETROPERITONEAL COMPLETE(Performed [...] listed, Dependence on renal dialysis ([facility]), ESRD (end stage renal disease) ([facility]) * XR CHEST 2VW(Performed 08/05/2024) Performed for Pre-kidney transplant, listed, ESRD (end stage renal disease) ([facility]), 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), Hypertension, unspecified type, Atrial fibrillation, unspecified type (HCC), Neuropathy, JONAH on CPAP * XR PANOREX(Performed 08/05/2024) Performed for Pre-kidney transplant, listed, ESRD (end stage renal disease) ([facility]), 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), [...] mellitus with other kidney complication, 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 halfway insulin use ([facility]), Hypertension, unspecified type, Atrial fibrillation, unspecified type (HCC), Neuropathy, Hyperlipidemia, unspecified hyperlipidemia type, Stage 4 chronic kidney disease (HCC), Former smoker * CREATININE URINE RANDOM(Performed 07/28/2023) Performed for Pre-transplant evaluation for kidney transplant, Type 2 diabetes mellitus with other kidney complication, 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 halfway insulin use (HCC), Hypertension, unspecified type, Atrial fibrillation, unspecified type (HCC), Neuropathy, Hyperlipidemia, unspecified hyperlipidemia type, Stage 4 chronic kidney disease (HCC), Former smoker * PROTEIN URINE RANDOM QUANTITATIVE(Performed 07/28/2023) Performed for Pre-transplant evaluation for kidney transplant, Type 2 diabetes mellitus with other kidney complication, 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 tech writer insulin use (HCC), Hypertension, unspecified type, Atrial fibrillation, unspecified type (HCC), Neuropathy, Hyperlipidemia, unspecified hyperlipidemia type, Stage 4 chronic kidney disease (HCC), Former smoker * BLOOD TYPE ABO+ RH PANEL(Performed 07/28/2023) Performed for Pre-transplant evaluation for kidney transplant, Type 2 diabetes mellitus with other kidney complication, 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 halfway insulin use (HCC), Hypertension, unspecified type, Atrial fibrillation, unspecified type (HCC), Neuropathy, Hyperlipidemia, unspecified hyperlipidemia type, Stage 4 chronic kidney disease (HCC), Former smoker * HLA ANTIBODY SCREEN LUM CLASS 2 SAB(Performed 07/28/2023) Performed for Pre-transplant evaluation for kidney transplant, Type 2 diabetes mellitus with other kidney complication, 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 halfway insulin use (HCC), Hypertension, unspecified type, Atrial fibrillation, unspecified type (HCC), Neuropathy, Hyperlipidemia, unspecified hyperlipidemia type, Stage 4 chronic kidney disease (HCC), Former smoker * HLA ANTIBODY SCREEN LUM CLASS 1 SAB(Performed 07/28/2023) Performed for Pre-transplant evaluation for kidney transplant, Type 2 diabetes mellitus with other kidney complication, 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 halfway insulin use (HCC), Hypertension, unspecified type, Atrial fibrillation, unspecified type (HCC), Neuropathy, Hyperlipidemia, unspecified hyperlipidemia type, Stage 4 chronic kidney disease (HCC), Former smoker * HLA TYPING DNA LOW RESOLUTION DR,DQ(Performed 07/28/2023) Performed for Pre-transplant evaluation for kidney transplant, Type 2 diabetes mellitus with other kidney complication, 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 tech writer insulin use (HCC), Hypertension, unspecified type, Atrial fibrillation, unspecified type (HCC), Neuropathy, Hyperlipidemia, unspecified hyperlipidemia type, Stage 4 chronic kidney disease (HCC), Former smoker * HLA TYPING DNA LOW RESOLUTION A,B,C(Performed 07/28/2023) Performed for Pre-transplant evaluation for kidney transplant, Type 2 diabetes mellitus with other kidney complication, 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 halfway insulin use (HCC), Hypertension, unspecified type, Atrial fibrillation, unspecified type (HCC), Neuropathy, Hyperlipidemia, unspecified hyperlipidemia type, Stage 4 chronic kidney disease (HCC), Former smoker * TYPE + SCREEN PANEL(Performed 07/28/2023) Performed for Pre-transplant evaluation for kidney transplant, Type 2 diabetes mellitus with other kidney complication, 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 halfway insulin use (HCC), Hypertension, unspecified type, Atrial fibrillation, unspecified type (HCC), Neuropathy, Hyperlipidemia, unspecified hyperlipidemia type, Stage 4 chronic kidney disease (HCC), Former smoker * STRONGYLOIDES ANTIBODY IGG(Performed 07/28/2023) Performed for Pre-transplant evaluation for kidney transplant, Type 2 diabetes mellitus with other kidney complication, 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 halfway insulin use (HCC), Hypertension, unspecified type, Atrial fibrillation, unspecified type (HCC), Neuropathy, Hyperlipidemia, unspecified hyperlipidemia type, Stage 4 chronic kidney disease (HCC), Former smoker * TOXOPLASMA GONDII ANTIBODY IGG(Performed 07/28/2023) Performed for Pre-transplant evaluation for kidney transplant, Type 2 diabetes mellitus with other kidney complication, 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 halfway insulin use (HCC), Hypertension, unspecified type, Atrial fibrillation, unspecified type (HCC), Neuropathy, Hyperlipidemia, unspecified hyperlipidemia type, Stage 4 chronic kidney disease (HCC), Former smoker * HIV-1 HIV-2 ANTIBODY + HIV P24 AG PANEL(Performed 07/28/2023) Performed for Pre-transplant evaluation for kidney transplant, Type 2 diabetes mellitus with other kidney complication, 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 tech 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 insulin 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 (HCC), Hypertension, unspecified type, Atrial fibrillation, unspecified type (HCC), Neuropathy, Hyperlipidemia, unspecified hyperlipidemia type, Stage 4 chronic kidney disease (HCC), Former smoker * PROSTATE SPECIFIC ANTIGEN SCREEN(Performed 07/28/2023) Performed for Pre-transplant evaluation for kidney transplant, Type 2 diabetes mellitus with other kidney complication, 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 halfway insulin use (HCC), Hypertension, unspecified type, Atrial fibrillation, unspecified type (HCC), Neuropathy, Hyperlipidemia, unspecified hyperlipidemia type, Stage 4 chronic kidney disease (HCC), Former smoker * QUANTIFERON-TB GOLD PLUS 4-TUBE(Performed 07/28/2023) Performed for Pre-transplant evaluation for kidney transplant, Type 2 diabetes mellitus with other kidney complication, 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 tech writer insulin use (HCC), Hypertension, unspecified type, Atrial fibrillation, unspecified type (HCC), Neuropathy, Hyperlipidemia, unspecified hyperlipidemia type, Stage 4 chronic kidney disease (HCC), Former smoker * VARICELLA ZOSTER ANTIBODY IGG(Performed 07/28/2023) Performed for Pre-transplant evaluation for kidney transplant, Type 2 diabetes mellitus with other kidney complication, 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 halfway insulin use (HCC), Hypertension, unspecified type, Atrial fibrillation, unspecified type (HCC), Neuropathy, Hyperlipidemia, unspecified hyperlipidemia type, Stage 4 chronic kidney disease (HCC), Former smoker * RUBELLA ANTIBODY IGG TITER(Performed 07/28/2023) Performed for Pre-transplant evaluation for kidney transplant, Type 2 diabetes mellitus with other kidney complication, 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 halfway insulin use (HCC), Hypertension, unspecified type, Atrial fibrillation, unspecified type (HCC), Neuropathy, Hyperlipidemia, unspecified hyperlipidemia type, Stage 4 chronic kidney disease (HCC), Former smoker * MUMPS ANTIBODY IGG(Performed 07/28/2023) Performed for Pre-transplant evaluation for kidney transplant, Type 2 diabetes mellitus with other kidney complication, 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 halfway insulin use (HCC), Hypertension, unspecified type, Atrial fibrillation, unspecified type (HCC), Neuropathy, Hyperlipidemia, unspecified hyperlipidemia type, Stage 4 chronic kidney disease (HCC), Former smoker * RUBEOLA ANTIBODY IGG(Performed 07/28/2023) Performed for Pre-transplant evaluation for kidney transplant, Type 2 diabetes mellitus with other kidney complication, 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 tech writer insulin use (HCC), Hypertension, unspecified type, Atrial fibrillation, unspecified type (HCC), Neuropathy, Hyperlipidemia, unspecified hyperlipidemia type, Stage 4 chronic kidney disease (HCC), Former smoker * CANNABINOID SCREEN BLOOD(Performed 07/28/2023) Performed for Pre-transplant evaluation for kidney transplant, Type 2 diabetes mellitus with other kidney complication, 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 tech writer insulin use (HCC), Hypertension, unspecified type, Atrial fibrillation, unspecified type (HCC), Neuropathy, Hyperlipidemia, unspecified hyperlipidemia type, Stage 4 chronic kidney disease (HCC), Former smoker * OPIATES BLOOD(Performed 07/28/2023) Performed for Pre-transplant evaluation for kidney transplant, Type 2 diabetes mellitus with other kidney complication, 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 tech writer insulin use (HCC), Hypertension, unspecified type, Atrial fibrillation, unspecified type (HCC), Neuropathy, Hyperlipidemia, unspecified hyperlipidemia type, Stage 4 chronic kidney disease (HCC), Former smoker * COCAINE METABOLITE BLOOD QUANT(Performed 07/28/2023) Performed for Pre-transplant evaluation for kidney transplant, Type 2 diabetes mellitus with other kidney complication, 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 halfway insulin use (HCC), Hypertension, unspecified type, Atrial fibrillation, unspecified type (HCC), Neuropathy, Hyperlipidemia, unspecified hyperlipidemia type, Stage 4 chronic kidney disease (HCC), Former smoker * AMPHETAMINE BLOOD CONFIRMATION(Performed 07/28/2023) Performed for Pre-transplant evaluation for kidney transplant, Type 2 diabetes mellitus with other kidney complication, 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 halfway insulin use (HCC), Hypertension, unspecified type, Atrial fibrillation, unspecified type (HCC), Neuropathy, Hyperlipidemia, unspecified hyperlipidemia type, Stage 4 chronic kidney disease (HCC), Former smoker * NICOTINE + METABOLITES BLOOD(Performed 07/28/2023) Performed for Pre-transplant evaluation for kidney transplant, Type 2 diabetes mellitus with other kidney complication, 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 tech writer insulin use (HCC), Hypertension, unspecified type, Atrial fibrillation, unspecified type (HCC), Neuropathy, Hyperlipidemia, unspecified hyperlipidemia type, Stage 4 chronic kidney disease (HCC), Former smoker * ALCOHOL ETHYL BLOOD(Performed 07/28/2023) Performed for Pre-transplant evaluation for kidney transplant, Type 2 diabetes mellitus with other kidney complication, 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 halfway insulin use (HCC), Hypertension, unspecified type, Atrial fibrillation, unspecified type (HCC), Neuropathy, Hyperlipidemia, unspecified hyperlipidemia type, Stage 4 chronic kidney disease (HCC), Former smoker * SYPHILIS ANTIBODY CASCADING REFLEX(Performed 07/28/2023) Performed for Pre-transplant evaluation for kidney transplant, Type 2 diabetes mellitus with other kidney complication, 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 tech writer insulin use (HCC), Hypertension, unspecified type, Atrial fibrillation, unspecified type (HCC), Neuropathy, Hyperlipidemia, unspecified hyperlipidemia type, Stage 4 chronic kidney disease (HCC), Former smoker * HEMOGLOBIN A1C(Performed 07/28/2023) Performed for Pre-transplant evaluation for kidney transplant, Type 2 diabetes mellitus with other kidney complication, 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 halfway insulin use (HCC), Hypertension, unspecified type, Atrial fibrillation, unspecified type (HCC), Neuropathy, Hyperlipidemia, unspecified hyperlipidemia type, Stage 4 chronic kidney disease (HCC), Former smoker * YUE-RBASHER VIRUS ANTIBODY TO VCA IGG(Performed 07/28/2023) Performed for Pre-transplant evaluation for kidney transplant, Type 2 diabetes mellitus with other kidney complication, 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 tech writer insulin use (HCC), Hypertension, unspecified type, Atrial fibrillation, unspecified type (HCC), Neuropathy, Hyperlipidemia, unspecified hyperlipidemia type, Stage 4 chronic kidney disease (HCC), Former smoker * CYTOMEGALOVIRUS ANTIBODY IGG BLOOD(Performed 07/28/2023) Performed for Pre-transplant evaluation for kidney transplant, Type 2 diabetes mellitus with other kidney complication, 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 halfway insulin use (HCC), Hypertension, unspecified type, Atrial fibrillation, unspecified type (HCC), Neuropathy, Hyperlipidemia, unspecified hyperlipidemia type, Stage 4 chronic kidney disease (HCC), Former smoker * HEPATITIS A ANTIBODY(Performed 07/28/2023) Performed for Pre-transplant evaluation for kidney transplant, Type 2 diabetes mellitus with other kidney complication, 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 tech writer insulin use (HCC), Hypertension, unspecified type, Atrial fibrillation, unspecified type (HCC), Neuropathy, Hyperlipidemia, unspecified hyperlipidemia type, Stage 4 chronic kidney disease (HCC), Former smoker * HEPATITIS C ANTIBODY(Performed 07/28/2023) Performed for Pre-transplant evaluation for kidney transplant, Type 2 diabetes mellitus with other kidney complication, 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 halfway insulin use (HCC), Hypertension, unspecified type, Atrial fibrillation, unspecified type (HCC), Neuropathy, Hyperlipidemia, unspecified hyperlipidemia type, Stage 4 chronic kidney disease (HCC), Former smoker * HEPATITIS B SURFACE ANTIBODY(Performed 07/28/2023) Performed for Pre-transplant evaluation for kidney transplant, Type 2 diabetes mellitus with other kidney complication, 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 tech writer insulin use (HCC), Hypertension, unspecified type, Atrial fibrillation, unspecified type (HCC), Neuropathy, Hyperlipidemia, unspecified hyperlipidemia type, Stage 4 chronic kidney disease (HCC), Former smoker * HEPATITIS B CORE ANTIBODY TOTAL(Performed 07/28/2023) Performed for Pre-transplant evaluation for kidney transplant, Type 2 diabetes mellitus with other kidney complication, 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 tech writer insulin use (HCC), Hypertension, unspecified type, Atrial fibrillation, unspecified type (HCC), Neuropathy, Hyperlipidemia, unspecified hyperlipidemia type, Stage 4 chronic kidney disease (HCC), Former smoker * HEPATITIS B SURFACE ANTIGEN W RFLX CONFIRMATION(Performed 07/28/2023) Performed for Pre-transplant evaluation for kidney transplant, Type 2 diabetes mellitus with other kidney complication, 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 halfway insulin use (HCC), Hypertension, unspecified type, Atrial fibrillation, unspecified type (HCC), Neuropathy, Hyperlipidemia, unspecified hyperlipidemia type, Stage 4 chronic kidney disease (HCC), Former smoker * LIPID PROFILE(Performed 07/28/2023) Performed for Pre-transplant evaluation for kidney transplant, Type 2 diabetes mellitus with other kidney complication, 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 tech writer insulin use (HCC), Hypertension, unspecified type, Atrial fibrillation, unspecified type (HCC), Neuropathy, Hyperlipidemia, unspecified hyperlipidemia type, Stage 4 chronic kidney disease (HCC), Former smoker * PTH INTACT W/O CALCIUM(Performed 07/28/2023) Performed for Pre-transplant evaluation for kidney transplant, Type 2 diabetes mellitus with other kidney complication, 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 halfway insulin use (HCC), Hypertension, unspecified type, Atrial fibrillation, unspecified type (HCC), Neuropathy, Hyperlipidemia, unspecified hyperlipidemia type, Stage 4 chronic kidney disease (HCC), Former smoker * PHOSPHORUS BLOOD(Performed 07/28/2023) Performed for Pre-transplant evaluation for kidney transplant, Type 2 diabetes mellitus with other kidney complication, 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 halfway insulin use (HCC), Hypertension, unspecified type, Atrial fibrillation, unspecified type (HCC), Neuropathy, Hyperlipidemia, unspecified hyperlipidemia type, Stage 4 chronic kidney disease (HCC), Former smoker * IRON BLOOD(Performed 07/28/2023) Performed for Pre-transplant evaluation for kidney transplant, Type 2 diabetes mellitus with other kidney complication, 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 tech writer insulin use (HCC), Hypertension, unspecified type, Atrial fibrillation, unspecified type (HCC), Neuropathy, Hyperlipidemia, unspecified hyperlipidemia type, Stage 4 chronic kidney disease (HCC), Former smoker * FERRITIN(Performed 07/28/2023) Performed for Pre-transplant evaluation for kidney transplant, Type 2 diabetes mellitus with other kidney complication, 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 tech writer insulin use (HCC), Hypertension, unspecified type, Atrial fibrillation, unspecified type (HCC), Neuropathy, Hyperlipidemia, unspecified hyperlipidemia type, Stage 4 chronic kidney disease (HCC), Former smoker * TRANSFERRIN(Performed 07/28/2023) Performed for Pre-transplant evaluation for kidney transplant, Type 2 diabetes mellitus with other kidney complication, 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 tech writer insulin use (HCC), Hypertension, unspecified type, Atrial fibrillation, unspecified type (HCC), Neuropathy, Hyperlipidemia, unspecified hyperlipidemia type, Stage 4 chronic kidney disease (HCC), Former smoker * VITAMIN D 25-HYDROXY(Performed 07/28/2023) Performed for Pre-transplant evaluation for kidney transplant, Type 2 diabetes mellitus with other kidney complication, 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 tech writer insulin use (HCC), Hypertension, unspecified type, Atrial fibrillation, unspecified type (HCC), Neuropathy, Hyperlipidemia, unspecified hyperlipidemia type, Stage 4 chronic kidney disease (HCC), Former smoker * URIC ACID BLOOD(Performed 07/28/2023) Performed for Pre-transplant evaluation for kidney transplant, Type 2 diabetes mellitus with other kidney complication, 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 tech writer insulin use (HCC), Hypertension, unspecified type, Atrial fibrillation, unspecified type (HCC), Neuropathy, Hyperlipidemia, unspecified hyperlipidemia type, Stage 4 chronic kidney disease (HCC), Former smoker * COMPREHENSIVE METABOLIC PANEL(Performed 07/28/2023) Performed for Pre-transplant evaluation for kidney transplant, Type 2 diabetes mellitus with other kidney complication, 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 tech writer insulin use (HCC), Hypertension, unspecified type, Atrial fibrillation, unspecified type (HCC), Neuropathy, Hyperlipidemia, unspecified hyperlipidemia type, Stage 4 chronic kidney disease (HCC), Former smoker * CBC W AUTO DIFFERENTIAL(Performed 07/28/2023) Performed for Pre-transplant evaluation for kidney transplant, Type 2 diabetes mellitus with other kidney complication, 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 tech writer insulin use (HCC), Hypertension, unspecified type, Atrial fibrillation, unspecified type (HCC), Neuropathy, Hyperlipidemia, unspecified hyperlipidemia type, Stage 4 chronic kidney disease (HCC), Former smoker * CT CHEST ABDOMEN PELVIS WO CONT(Performed 07/28/2023) Performed for Pre-transplant evaluation for kidney transplant, Type 2 diabetes mellitus with other kidney complication, 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 tech writer insulin use (HCC), Hypertension, unspecified type, Atrial fibrillation, unspecified type (HCC), Neuropathy, Hyperlipidemia, unspecified hyperlipidemia type, Stage 4 chronic kidney disease (HCC), Former smoker * XR PANOREX(Performed 07/28/2023) Performed for Pre-transplant evaluation for kidney transplant, Type 2 diabetes mellitus with other kidney complication, 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 tech writer insulin use (HCC), Hypertension, unspecified type, Atrial fibrillation, unspecified type (HCC), Neuropathy, Hyperlipidemia, unspecified hyperlipidemia type, Stage 4 chronic kidney disease (HCC), Former smoker * XR CHEST 2VW(Performed 07/28/2023) Performed for Pre-transplant evaluation for kidney transplant, Type 2 diabetes mellitus with other kidney complication, 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 halfway insulin use (HCC), Hypertension, unspecified type, Atrial fibrillation, unspecified type (HCC), Neuropathy, Hyperlipidemia, unspecified hyperlipidemia type, Stage 4 chronic kidney disease (HCC), Former smoker * VAS ARTERIAL MULTILEVEL LE(Performed 07/28/2023) Performed for Pre-transplant evaluation for kidney transplant, Type 2 diabetes mellitus with other kidney complication, 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 halfway insulin use (HCC), Hypertension, unspecified type, Atrial fibrillation, unspecified type (HCC), Neuropathy, Hyperlipidemia, unspecified hyperlipidemia type, Stage 4 chronic kidney disease (HCC), Former smoker * EKG 12-LEAD(Performed 07/28/2023) Performed for Pre-transplant evaluation for kidney transplant, Type 2 diabetes mellitus with other kidney complication, 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 halfway insulin use (HCC), Hypertension, unspecified type, Atrial fibrillation, unspecified type (HCC), Neuropathy, Hyperlipidemia, unspecified hyperlipidemia type, Stage 4 chronic kidney disease (HCC), Former smoker * ECHO COMPLETE W CONTRAST(Performed 07/28/2023) Performed for Pre-transplant evaluation for kidney transplant, Type 2 diabetes mellitus with other kidney complication, 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 tech writer insulin use (HCC), Hypertension, unspecified type, Atrial [...] 01/28/2020) * ENDOTRACHEAL TUBE NOTE(Performed 01/28/2020) * CA EXPLORATORY OF ABDOMEN(Performed 01/28/2020) Performed for Intestinal [...] for Atrial fibrillation, persistent (HCC) Results * CA LIVER ELASTOGRAPHY (11/18/2024 10:22 AM 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) Narrative Dell Mcmillan MD - 11/18/2024 10:22 AM 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 Dell Mcmillan MD 11/21/2024 4:11 PM Diagnosis: [...] of liver-related events. J Hepatol (2021) 76: [id number]. Kelly VALDEZ, Luis M, Aliza M, et al. Accuracy of FibroScan controlled attenuation parameter and liver stiffness measurement in assessing steatosis and fibrosis in patients with nonalcoholic fatty liver disease. Gastroenterology 2019;[id number]. Jose MS, Kev R, Van Vickey ML, [...] at-risk nonalcoholic steatohepatitis (MARTIN) in a [place] cohort and comparison to other non-invasive algorithms. PLoS ONE (2021) 17: [id number]. Sheldon AJ, James J, Ted ZM, et al. Enhanced diagnosis of advanced fibrosis and cirrhosis in individuals with NAFLD using FibroScan-based Agile scores. J Hepatol (2022) 78: 247-259. Cindy et al. Vibration-controlled transient elastography scores to predict liver-related events in steatotic liver disease. OLIVIA (2023) 331: 2488-3442 Fibroscan LSM can also be used with laboratory parameters without formulas to assess prognosis. According to the Baveno-VII criteria (Dave, 2021), Fibroscan LSM <=15 kPa plus a platelet count of >=974z678/L rules out clinically significant portal hypertension (sensitivity [...] FIB-4 score (Jesus et al. [employer] 2019;3:4738-6885) or NAFLD Fibrosis score (Santa et al. Clinical Gastroenterology and Hepatology 2019;17:9743-7953 using routine clinical data. Notes: 1. Fibroscan [...] additional interpretive data was last updated 10/14/24.) [email or web address] Ban Alfaro MD PROCEDURE/MINOR SURGICAL ORDERABLES * US RETROPERITONEAL COMPLETE (08/22/2024 8:00 AM 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) Anatomical Region Laterality Modality Abdomen Ultrasound 08/22/2024 1:36 PM 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 Impressions 08/23/2024 8:49 AM 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 IMPRESSION: 1.Increased renal echogenicity is consistent with chronic parenchymal disease. 2.No evidence of nephrolithiasis, hydronephrosis, or solid renal mass. > Dictated by Hasaan Gavin, MD I, Raoul Coy MD have personally reviewed and interpreted this examination/study. 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 > Dictated by aMry Alonso MD I, Raoul Coy MD have personally reviewed and interpreted this examination/study. > Interpreting Provider: Raoul Coy MD on 48:49 AM Merrick Engel MD ORDERABLES * URINE MICROSCOPIC ONLY REFLEX TO CULTURE (08/05/2024 1:49 PM CDT) Reflex Status Culture not indicated 08/05/2024 2:59 PM [facility] RBC UA 0-2 None Seen, 0-2, 3-5 /HPF 08/05/2024 2:59 PM [facility] WBC UA 0-5 None Seen, 0-5 /HPF 08/05/2024 2:59 PM [facility] Squamous Epithelial Cells UA 0-2 None Seen, 0-2, 3-5 /HPF 08/05/2024 2:59 PM [facility] Urine URINE SPECIMEN OBTAINED BY CLEAN CATCH PROCEDURE / Unknown Collection / Unknown 08/05/2024 1:49 PM CDT 08/05/2024 2:26 PM CDT [facility] - 08/05/2024 2:59 PM CDT Merrick Engel MD LAB - URINALYS IS ORDERABLES [facility] [address] [place] [address], [facility] [phone] * (ABNORMAL) URINALYSIS REFLEX MICROSCOPIC REFLEX CULTURE (08/05/2024 1:49 PM CDT) Color UA Yellow Straw, Yellow 08/05/2024 2:59 PM CDT [facility] Clarity UA Clear Clear 08/05/2024 2:59 PM CDT [facility] Specific [place] UA 1.015 1.005 - 1.030 08/05/2024 2:59 PM CDT [facility] pH UA 7.0 5.0 - 8.0 pH 08/05/2024 2:59 PM CDT [facility] Protein UA 2+(A) Negative 08/05/2024 2:59 PM CDT [facility] Glucose UA Negative Negative 08/05/2024 2:59 PM CDT [facility] Ketone UA Negative Negative 08/05/2024 2:59 PM CDT [facility] Bilirubin UA Negative Negative 08/05/2024 2:59 PM CDT [facility] Blood UA Trace(A) Negative 08/05/2024 2:59 PM CDT [facility] Nitrite UA Negative Negative 08/05/2024 2:59 PM CDT [facility] Leukocyte Esterase Negative Negative 08/05/2024 2:59 PM CDT [facility] Urobilinogen UA Negative Negative mg/dL 08/05/2024 2:59 PM CDT [facility] Urine URINE SPECIMEN OBTAINED BY CLEAN CATCH PROCEDURE / Unknown Collection / Unknown 08/05/2024 1:49 PM CDT 08/05/2024 2:26 PM CDT Narrative Authorizing Provider Result Renetta Engel MD LAB - URINALYS IS ORDERABLES [facility] [address] [place] [address], [facility] [phone] * PROTEIN URINE RANDOM QUANTITATIVE (08/05/2024 1:49 PM CDT) Only the most recent of3 resultswithin the time period is included. Protein Urine 103 Not Established mg/dL 08/05/2024 2:59 PM CDT [facility] Urine URINE SPECIMEN OBTAINED BY CLEAN CATCH PROCEDURE / Unknown Collection / Unknown 08/05/2024 1:49 PM CDT 08/05/2024 2:27 PM CDT Merrick Engel MD LAB - URINE CH EMISTRY ORDERABLES [facility] [address] [place] [address], [place] [phone] * CREATININE URINE RANDOM (08/05/2024 1:49 PM CDT) Only the most recent of3 resultswithin the time period is included. Creatinine Urine 175.95 Not Established mg/dL 08/05/2024 2:59 PM CDT [facility] Urine URINE SPECIMEN OBTAINED BY CLEAN CATCH PROCEDURE / Unknown Collection / Unknown 08/05/2024 1:49 PM CDT 08/05/2024 2:27 PM CDT Merrick Engel MD LAB - URINE CH EMISTRY ORDERABLES [facility] [address] [place] [address], [place] [phone] * (ABNORMAL) PTH INTACT W/O CALCIUM (08/05/2024 1:41 PM CDT) Only the most recent of2 resultswithin the time period is included. PTH Intact 530.2(H) 8.0 - 77.0 pg/mL 08/05/2024 3:01 PM CDT [facility] Blood BLOOD SPECIMEN / Unknown Lab Venipuncture / Unknown 08/05/2024 1:41 PM CDT 08/05/2024 2:29 PM CDT Merrick Engel MD LAB - CHEMISTR Y ORDERABLES Performing Organization Address City/[facility]/ZIP Co de Phone Number [address] [address], [facility] [phone] * URIC ACID BLOOD (08/05/2024 1:41 PM CDT) Only the most recent of2 resultswithin the time period is included. Uric Acid 3.5 3.5 - 7.2 mg/dL 08/05/2024 2:58 PM CDT [facility] Blood BLOOD SPECIMEN / Unknown Lab Venipuncture / Unknown 08/05/2024 1:41 PM CDT 08/05/2024 2:29 PM CDT Merrick Engel MD LAB - CHEMISTR Y ORDERABLES Performing Organization Address City/[facility]/ZIP Co de Phone Number [address] [address], [facility] [phone] * (ABNORMAL) TRANSFERRIN (08/05/2024 1:41 PM CDT) Only the most recent of2 resultswithin the time period is included. Transferrin 164(L) 174 - 382 mg/dL 08/05/2024 3:02 PM CDT [facility] Blood BLOOD SPECIMEN / Unknown Lab Venipuncture / Unknown 08/05/2024 1:41 PM CDT 08/05/2024 2:24 PM CDT Merrick Engel MD LAB - CHEMISTR Y ORDERABLES Performing Organization Address City/[facility]/ZIP Co de Phone Number [address] [address], [facility] [phone] * (ABNORMAL) VITAMIN D 25-HYDROXY (08/05/2024 1:41 PM CDT) Only the most recent of2 resultswithin the time period is included. Vitamin D, 25 Hydroxy 29.6(L) 30.0 - 80.0 ng/mL 08/05/2024 3:16 PM CDT [facility] Comment: The recommendations for 25-Hydroxy Vitamin [...] Engel MD LAB - CHEMISTR Y ORDERABLES [address] [address], [facility] [phone] * (ABNORMAL) CBC W AUTO DIFFERENTIAL (08/05/2024 1:41 PM CDT) Only the most recent of9 resultswithin the time period is included. WBC 7.0 4.0 - 10.7 x10E9/L 08/05/2024 2:36 PM [facility] RBC Count 3.20(L) 4.30 - 5.80 x10E12/L 08/05/2024 2:36 PM [facility] Hemoglobin 10.0(L) 13.3 - 17.5 g/dL 08/05/2024 2:36 PM [facility] Hematocrit 30.0(L) 38.7 - 51.1 % 08/05/2024 2:36 PM [facility] MCV 93.8 80.0 - 98.0 fL 08/05/2024 2:36 PM T [facility] MCH 31.3 26.7 - 33.6 pg 08/05/2024 2:36 PM T [facility] MCHC 33.3 31.7 - 36.3 g/dL 08/05/2024 2:36 PM [facility] RDW-CV 13.2 11.3 - 14.8 % 08/05/2024 2:36 PM [facility] Platelet Count 227 150 - 420 x10E9/L 08/05/2024 2:36 PM [facility] MPV 10.7 7.8 - 11.4 fL 08/05/2024 2:36 PM [facility] Neutrophil % 63.9 41.0 - 74.0 % 08/05/2024 2:36 PM [facility] Lymphocyte % 23.4 17.0 - 47.0 % 08/05/2024 2:36 PM [facility] Monocyte % 6.7 3.0 - 11.0 % 08/05/2024 2:36 PM [facility] Eosinophil % 5.3 0.0 - 7.0 % 08/05/2024 2:36 PM [facility] Basophil % 0.3 0.0 - 1.6 % 08/05/2024 2:36 PM [facility] Immature Granulocytes % 0.4 0.0 - 1.0 % 08/05/2024 2:36 PM [facility] Neutrophil Absolute 4.46 1.60 - 7.50 x10E9/L 08/05/2024 2:36 PM [facility] Lymphocyte Absolute 1.63 1.00 - 4.40 x10E9/L 08/05/2024 2:36 PM [facility] Monocyte Absolute 0.47 0.15 - 1.00 x10E9/L 08/05/2024 2:36 PM [facility] Eosinophil Absolute 0.37 0.00 - 0.60 x10E9/L 08/05/2024 2:36 PM [facility] Basophil Absolute 0.02 0.00 - 0.13 x10E9/L 08/05/2024 2:36 PM [facility] Blood BLOOD SPECIMEN / Unknown Lab Venipuncture / Unknown 08/05/2024 1:41 PM CDT 08/05/2024 2:29 PM CDT Merrick Engel MD LAB - HEMATOLO GY ORDERABLES [facility] [address] [place] [address], [facility] [phone] * (ABNORMAL) COMPREHENSIVE METABOLIC PANEL (08/05/2024 1:41 PM CDT) Only the most recent of7 resultswithin the time period is included. BUN 44(H) 7 - 26 mg/dL 08/05/2024 2:58 PM [facility] Creatinine 8.04(H) 0.71 - 1.16 mg/dL 08/05/2024 2:58 PM [facility] Sodium 142 136 - 145 mmol/L 08/05/2024 2:58 PM [facility] Potassium 4.8(H) 3.5 - 4.5 mmol/L 08/05/2024 2:58 PM [facility] Chloride 109(H) 98 - 107 mmol/L 08/05/2024 2:58 PM [facility] CO2 21(L) 22 - 29 mmol/L 08/05/2024 2:58 PM [facility] Glucose 71 70 - 99 mg/dL 08/05/2024 2:58 PM [facility] Calcium 9.0 8.4 - 10.2 mg/dL 08/05/2024 2:58 PM [facility] Protein Total 7.2 6.0 - 8.3 g/dL 08/05/2024 2:58 PM [facility] Albumin 3.7 3.4 - 5.0 g/dL 08/05/2024 2:58 PM [facility] Bilirubin Total 0.4 0.2 - 1.2 mg/dL 08/05/2024 2:58 PM [facility] Alkaline Phosphatase 97 40 - 150 U/L 08/05/2024 2:58 PM [facility] ALT 27 5 - 55 U/L 08/05/2024 2:58 PM [facility] AST 16 5 - 34 U/L 08/05/2024 2:58 PM [facility] Anion Gap 12 6 - 16 08/05/2024 2:58 PM CDT [facility] BUN/Creatinine Ratio 5(L) 7 - 23 08/05/2024 2:58 PM CDT [facility] Osmolality Calculated 304(H) 275 - 295 mOsm/kg 08/05/2024 2:58 PM CDT [facility] Albumin/Globulin Ratio 1.1 1.1 - 2.3 08/05/2024 2:58 PM CDT [facility] eGFR by CKD-EPI 7(L) >=90 mL/min/1.7 3 m2 08/05/2024 2:58 PM CDT [facility] Blood BLOOD SPECIMEN / Unknown Lab Venipuncture / Unknown 08/05/2024 1:41 PM CDT 08/05/2024 2:29 PM CDT Merrick Engel MD LAB - CHEMISTR Y ORDERABLES Performing Organization Address City/[facility]/ZIP Co de Phone Number [address] [address], [facility] [phone] * PHOSPHORUS BLOOD (08/05/2024 1:41 PM CDT) Only the most recent of8 resultswithin the time period is included. Phosphorus 2.9 2.8 - 5.1 mg/dL 08/05/2024 2:58 PM CDT [facility] Blood BLOOD SPECIMEN / Unknown Lab Venipuncture / Unknown 08/05/2024 1:41 PM CDT 08/05/2024 2:29 PM CDT Merrick Engel MD LAB - CHEMISTR Y ORDERABLES [address] [address], [place] [phone] * IRON BLOOD (08/05/2024 1:41 PM CDT) Only the most recent of2 resultswithin the time period is included. Iron 72 50 - 175 ug/dL 08/05/2024 3:02 PM CDT [facility] Blood BLOOD SPECIMEN / Unknown Lab Venipuncture / Unknown 08/05/2024 1:41 PM CDT 08/05/2024 2:24 PM CDT Merrick Engel MD LAB - CHEMISTR Y ORDERABLES Performing Organization Address City/[facility]/ZIP Co de Phone Number [facility] [address] [place] [address], [facility] [phone] * (ABNORMAL) FERRITIN (08/05/2024 1:41 PM CDT) Only the most recent of2 resultswithin the time period is included. Ferritin 615(H) 22 - 275 ng/mL 08/05/2024 3:20 PM CDT [facility] Blood BLOOD SPECIMEN / Unknown Lab Venipuncture / Unknown 08/05/2024 1:41 PM CDT 08/05/2024 2:24 PM CDT Merrick Engel MD LAB - CHEMISTR Y ORDERABLES Performing Organization Address City/[facility]/ZIP Co de Phone Number [facility] [address] [place] [address], [place] [phone] * COCAINE METABOLITE QUANT (08/05/2024 1:40 PM CDT) Only the most recent of2 resultswithin the time period is included. Cocaine and Metabolite Blood <20 ng/mL 08/08/2024 3:42 PM CDT [facility] ([facility]) Comment: INTERPRETIVE INFORMATION: Cocaine Metabolite, Serum [...] developed and its performance characteristics determined by [employer]. It has not been cleared or approved by the US Food and Drug Administration. This test was performed in a CLIA certified laboratory and is intended for clinical purposes. Performed By: [facility] [address] [place] [id number] Pricer: Matias Randall MD, PhD CLIA Number: [id number] Blood BLOOD SPECIMEN / Unknown Lab Venipuncture / Unknown 08/05/2024 1:40 PM CDT 08/05/2024 2:24 PM CDT Merrick Engel MD LAB - CHEMISTR Y ORDERABLES Performing Organization Address City/[facility] Co de Phone Number [facility]) [address] * SYPHILIS ANTIBODY CASCADING REFLEX (08/05/2024 1:40 PM CDT) Only the most recent of2 resultswithin the time period is included. Pathologist [facility] Treponema pallidum Antibody Non-react xavier Non-react xavier 08/05/2024 3:18 PM CDT [facility] Comment: No Laboratory evidence of syphilis infection. Note: Circulating antibodies may be low or undetectable in early infection. If recent exposure is suspected, re-draw sample in 2-4 weeks and repeat testing. Blood BLOOD SPECIMEN / Unknown Lab Venipuncture / Unknown 08/05/2024 1:40 PM CDT 08/05/2024 2:24 PM CDT Merrick Engel MD LAB - SEROLOGY ORDERABLES Performing Organization Address [facility] Co de Phone Number [facility] [address] [place] [address], [facility] [phone] * AMPHETAMINE BLOOD CONFIRMATION (08/05/2024 1:40 PM CDT) Only the most recent of2 resultswithin the time period is included. Pathologist [facility] Amphetamines Confirmation <20 ng/mL 08/10/2024 11:21 PM CDT [facility] ([facility]) Comment: INTERPRETIVE INFORMATION: Amphetamines, Serum or [...] developed and its performance characteristics determined by [employer]. It has not been cleared or approved by the US Food and Drug Administration. This test was performed in a CLIA certified laboratory and is intended for clinical purposes. Methamphetamine Confirmation <20 ng/mL 08/10/2024 11:21 PM CDT [facility] ([facility]) MDA Confirmation <20 ng/mL 08/10/20 24 11:21 PM CDT [facility]) MDMA Confirm <20 ng/mL 08/10/2024 11:21 PM CDT [facility]) MDEA Confirmation <20 ng/mL 024 11:21 PM CDT [facility]) Comment: Performed By: [employer] [facility] [address] [place] [address] Pricer: Matias Randall MD, PhD CLIA Number: [id number] Blood BLOOD SPECIMEN / Unknown Lab Venipuncture / Unknown 08/05/2024 1:40 PM CDT 08/05/2024 2:24 PM CDT Merrick Engel MD LAB - CHEMISTR Y ORDERABLES [facility]) [address] [place] [address], [facility] * QUANTIFERON-TB GOLD PLUS 4-TUBE (08/05/2024 1:40 PM CDT) Only the most recent of2 resultswithin the time period is included. QuantiFERON Mitogen Minus NIL 9.92 IU/mL 08/10/2024 12:43 AM CDT [facility]) QuantiFERON Nil Value 0.08 IU/mL 08/10/2024 12:43 AM CDT [facility]) QuantiFERON Plus TB1 Minus NIL 0.00 <=0.34 IU/mL 08/10/2024 12:43 AM CDT [facility] ([facility]) QuantiFERON Plus TB2 Minus NIL 0.00 <=0.34 IU/mL 08/10/2024 12:43 AM CDT [facility] ([facility]) QuantiFERON-TB Gold Plus Negative Negative 08/10/2024 12:43 AM CDT [facility]) Comment: INTERPRETIVE INFORMATION:Quantiferon TB Gold Plus Interferon [...] Mycobacterium tuberculosis Infection -- [place], 2010 (http://www.cdc.gov/mmwr/preview/mmwrhtml/jc5572y3.htm), for more information concerning test performance in low-prevalence populations and use in occupational screening. Performed By: [facility] [address] [place] [address] Pricer: Matias Randall MD, PhD CLIA Number: [id number] Blood BLOOD SPECIMEN / Unknown Lab Venipuncture / Unknown 08/05/2024 1:40 PM CDT 08/05/2024 2:25 PM CDT Merrick Engle MD LAB - CHEMISTR Y ORDERABLES [facility]) [address] [place] [address], [facility] * HIV-1 HIV-2 ANTIBODY + HIV P24 AG PANEL (08/05/2024 1:40 PM CDT) Only the most recent of2 resultswithin the time period is included. Pathologist [facility] HIV Antigen/Antibod y 1 & 2 Non-reacti ve Non-react xavier 08/05/2024 3:18 PM CDT [facility] Comment:No Laboratory eviden ce of HIV infection. Blood BLOOD SPECIMEN / Unknown Lab Venipuncture / Unknown 08/05/2024 1:40 PM CDT 08/05/2024 2:24 PM CDT Merrick Engel MD LAB - CHEMISTR Y ORDERABLES [facility] [address] [place] [address], [facility] [phone] * OPIATES BLOOD (08/05/2024 1:40 PM CDT) Only the most recent of2 resultswithin the time period is included. Pathologist [facility] Opiates Screen Negative 08/10/2024 5:09 PM CDT [facility] ([facility]) Comment:REFERENCE RANGE: thr shold: 10 ng/mL Oxycodone Screen Negative 08/10/20 5:09 PM CDT [facility] ([facility]) Comment:REFERENCE RANGE: thr shold: 10 ng/mL Specimen Type Comment 08/10/2024 5:09 PM CDT [facility] ([facility]) Comment: WHOLE BLOOD This specimen was [...] CDT 08/05/2024 2:25 PM CDT Narrative [facility] ([facility]) - 08/10/2024 5:09 PM CDT Performed at: [facility] [employer] [address] [id number] English As A Second Language Instructor: Stephanie Kirkpatrick [facility], Phone: [phone] Merrick Engel MD LAB - CHEMISTR Y ORDERABLES [facility] [address] [place] [address] * STRONGYLOIDES ANTIBODY IGG (08/05/2024 1:40 PM CDT) Only the most recent of2 resultswithin the time period is included. Strongyloides Antibody IgG 0.5 <=0.9 IV 08/09/2024 3:41 AM CDT [facility] [employer] ([facility]) Comment: INTERPRETIVE INFORMATION: Strongyloides Ab, IgG [...] also result in false-positive results. Performed By: [employer] [address] [place] [address] Pricer: Matias Randall MD, PhD CLIA Number: [id number] Blood BLOOD SPECIMEN / Unknown Lab Venipuncture / Unknown 08/05/2024 1:40 PM CDT 08/05/2024 2:24 PM CDT Merrick Engel MD LAB - SEROLOGY ORDERABLES [facility] [employer] [facility]) [address] * TOXOPLASMA GONDII ANTIBODY IGG (08/05/2024 1:40 PM CDT) Only the most recent of2 resultswithin the time period is included. Toxoplasma Antibody IgG <3.0 <=8.8 IU/mL 08/07/2024 2:07 AM CDT [facility] ([facility]) Comment: INTERPRETIVE INFORMATION: Toxoplasma Ab, IgG [...] the amount of antibody present. Performed By: [facility] [employer] [address] [place] [address] Pricer: Matias Randall MD, PhD CLIA Number: [id number] Blood BLOOD SPECIMEN / Unknown Lab Venipuncture / Unknown 08/05/2024 1:40 PM CDT 08/05/2024 2:24 PM CDT Merrick Engel MD LAB - CHEMISTR Y ORDERABLES [facility]) [address] [place] [address], [facility] * HEMOGLOBIN A1C (08/05/2024 1:40 PM CDT) Only the most recent of3 resultswithin the time period is included. Hemoglobin A1c 5.5 <=5.6 % 08/06/2024 8:52 AM CDT [facility] Estimated Average Glucose 111 mg/dL 08/06/2024 8:52 AM T [facility] Comment: HbA1c Interpretation: Normal : < 5.7% Pre-diabetes: 5.7-6.4% Diabetes: Equal to or greater than 6.5% Test results diagnostic of diabetes should be repeated for confirmation. Treatment target values recommended by ADA and other clinical organizations should be used to evaluate metabolic control in patients. Reference: [place] [employer], Standards of Care in Diabetes [...] Engel MD LAB - CHEMISTR Y ORDERABLES [facility] [address] [place] [address], [facility] [phone] * NICOTINE + METABOLITES BLOOD (08/05/2024 1:40 PM CDT) Only the most recent of2 resultswithin the time period is included. [facility] Nicotine <5 ng/mL 08/09/2024 10:18 PM CDT [employer] ([facility]) Comment: INTERPRETIVE INFORMATION: Nicotine and Metabolites, [...] developed and its performance characteristics determined by [employer]. It has not been cleared or approved by the US Food and Drug Administration. This test was performed in a CLIA certified laboratory and is intended for clinical purposes. Performed By: [employer] [address] [place] [id number] Pricer: Matias Randall MD, PhD CLIA Number: [id number] Cotinine <5 ng/mL 08/09/2024 10:18 PM CDT [employer] ([facility]) Blood BLOOD SPECIMEN / Unknown Lab Venipuncture / Unknown 08/05/2024 1:40 PM CDT 08/05/2024 2:24 PM CDT Merrick Engel MD LAB - CHEMISTR Y ORDERABLES [facility]) [address] [place] [address] * PROSTATE SPECIFIC ANTIGEN SCREEN (08/05/2024 1:40 PM CDT) Only the most recent of2 resultswithin the time period is included. PSA Total 1.1 0.0 - 4.0 ng/mL 08/05/2024 3:15 PM CDT [facility] Blood BLOOD SPECIMEN / Unknown Lab Venipuncture / Unknown 08/05/2024 1:40 PM CDT 08/05/2024 2:29 PM CDT Merrick Engel MD LAB - CHEMISTR Y ORDERABLES [address] [address], [facility] [phone] * (ABNORMAL) HEPATITIS B SURFACE ANTIBODY (08/05/2024 1:40 PM CDT) Only the most recent of2 resultswithin the time period is included. Hepatitis B Virus Surface Antibody Reactive( A) Non-react xavier 08/05/2024 3:14 PM CDT [facility] Comment: > 12 mIU/mL Hepatitis B surface Antibody (HBsAb). Reactive for HBsAb - individual is considered immune to Hepatitis B Virus infection. Hepatitis B Surface Antibody Quantitative 99.4(H) <8.0 mIU/mL 08/05/2024 3:14 PM CDT [facility] Comment: Hepatitis B Surface Antibody Numeric Result Interpretation: Nonreactive: <8.0 mIU/mL Indeterminate: 8.0 - 12.0 mIU/mL Reactive: >12.0 mIU/mL Blood BLOOD SPECIMEN / Unknown Lab Venipuncture / Unknown 08/05/2024 1:40 PM CDT 08/05/2024 2:24 PM CDT Merrick Engel MD LAB - CHEMISTR Y ORDERABLES Performing Organization Address City/[facility]/ZIP Co de Phone Number [facility] [address] [place] [phone], [facility] [phone] * HEPATITIS B CORE ANTIBODY (08/05/2024 1:40 PM CDT) Only the most recent of2 resultswithin the time period is included. HBc Antibody Total Non-reacti ve Non-reacti ve 08/05/2024 3:14 PM CDT [facility] Blood BLOOD SPECIMEN / Unknown Lab Venipuncture / Unknown 08/05/2024 1:40 PM CDT 08/05/2024 2:24 PM CDT Merrick Engel MD LAB - CHEMISTR Y ORDERABLES Performing Organization Address City/[facility] Co de Phone Number [address] [phone], [place] [phone] * HEPATITIS B SURFACE ANTIGEN W RFLX CONFIRMATION (08/05/2024 1:40 PM CDT) Only the most recent of2 resultswithin the time period is included. Hepatitis B Virus Surface Antigen Non-reacti ve Non-reacti ve 08/05/2024 3:14 PM CDT [facility] Blood BLOOD SPECIMEN / Unknown Lab Venipuncture / Unknown 08/05/2024 1:40 PM CDT 08/05/2024 2:24 PM CDT Merrick Engel MD LAB - CHEMISTR Y ORDERABLES Performing Organization Address City/[facility]/ZIP Co de Phone Number [address] [address], [place] [phone] * HEPATITIS C ANTIBODY (08/05/2024 1:40 PM CDT) Only the most recent of2 resultswithin the time period is included. Hepatitis C Antibody Non-react xavier Non-reac tive 08/05/2024 3:14 PM CDT [facility] Comment:Hepatitis C Antibody screen [...] - CHEMISTR Y ORDERABLES Performing Organization Address City/[facility] Co de Phone Number [facility] [address] [place] [address], [facility] [phone] * (ABNORMAL) HEPATITIS A ANTIBODY (08/05/2024 1:40 PM CDT) Only the most recent of2 resultswithin the time period is included. Pathologist [facility] Hepatitis A Virus Antibody Total Positive( A) Negative 08/07/2024 12:37 PM CDT [employer] ([facility]) Comment: The positive anti-HAV is consistent with recent or remote Hepatitis A infection or antibody response to HAV vaccination. False positive anti-HAV can occur. Performed By: [employer] [address] [place] [address] Pricer: Matias Randall MD, PhD CLIA Number: [id number] Blood BLOOD SPECIMEN / Unknown Lab Venipuncture / Unknown 08/05/2024 1:40 PM CDT 08/05/2024 2:24 PM CDT Merrick Engel MD LAB - CHEMISTR Y ORDERABLES Performing Organization Address [facility] Co de Phone Number [employer] [facility]) [address] [place] [address] * (ABNORMAL) LIPID PROFILE (08/05/2024 1:40 PM CDT) Only the most recent of2 resultswithin the time period is included. Cholesterol Total 148 <200 mg/dL 08/05/2024 2:56 PM CDT [facility] HDL 31(L) >40 mg/dL 08/05/2024 2:56 PM CDT [facility] Comment: ATP III Classification of HDL Cholesterol: <40 mg/dL: Considered a major risk factor. >60 mg/dL: Considered a negative risk factor. LDL Calculated 80 <100 mg/dL 08/05/2024 2:56 PM CDT [facility] Comment: ATP III Classification of LDL Cholesterol: <100 mg/dL: Optimal 100 - 129 mg/dL: Near Optimal/Above Optimal 130 - 159 mg/dL: Borderline High 160 - 189 mg/dL: High >190 mg/dL: Very High Triglycerides 184(H) <150 mg/dL 08/05/2024 2:56 PM CDT [facility] Comment: ATP III Classification of Triglycerides: <150 mg/dL: Normal 150 - 199 mg/dL: Borderline High 200 - 400 mg/dL: High >500 mg/dL: Very High Blood BLOOD SPECIMEN / Unknown Lab Venipuncture / Unknown 08/05/2024 1:40 PM CDT 08/05/2024 2:29 PM CDT Merrick Engel MD LAB - CHEMISTR Y ORDERABLES [facility] [address] [place] [address], [facility] [phone] * VAS Arterial Multilevel Le (08/05/2024 12:32 [...] 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 ([facility]) I10: Hypertension, unspecified type I48.91: [...] ESRD (end stage renal disease) ([facility]) 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 ([facility]) I10: Hypertension, unspecified type I48.91: Atrial fibrillation, unspecified type ([facility]) G62.9: Neuropathy G47.33: JONAH on [...] ESRD (end stage renal disease) ([facility]) 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 ([facility]) I10: Hypertension, unspecified type I48.91: Atrial fibrillation, unspecified type ([facility]) G62.9: Neuropathy G47.33: JONAH on [...] Donor First Name BENJAMIN 09/14/2024 4:18 PM 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 [facility] ([facility]) Flow XM Donor Last Name ALLAN 09/14/2024 4:18 PM 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 [facility] ([facility]) Flow XM Relation Unrelated 09/14/20 24 4:18 PM 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 [facility] ([facility]) Flow XM T Cell Neg^-26 09/14/2024 4:18 PM 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 [facility] ([facility]) Flow XM B Cell Neg^-17 09/14/2024 4:18 PM 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 [facility] ([facility]) Flow XM Serum Date 06/20/20242023 4:18 PM 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 [facility] ([facility]) Flow XM Test Date 09/14/2024 024 4:18 PM 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 [facility] ([facility]) Comment: Methodology - Flow Cytometric T- and B-Cell Crossmatching This test was developed and its performance characteristics determined by the [facility]. It has not been [...] high complexity clinical laboratory testing. CLIA ID# [id number] Performed at: [facility], [address] [place] [phone] English As A Second Language Instructor: Johan Wilson, Ph.D., D([facility]), Blood BLOOD SPECIMEN / Unknown No Charge Blood Draw / Unknown 06/20/2024 2:37 PM CDT 09/14/2024 2:38 PM 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 Dany Peralta MD LAB - PATHOLOGY/CYTO LOGY ORDERABLES Performing Organization Address City/[facility] Co de Phone Number [facility] ([facility]) [address] [place], [place] [address] [place] [address] * HLA ANTIBODY SCREEN LUM CLASS 2 SAB (06/20/2024 11:21 AM CDT) Only the most recent of2 resultswithin the time period is included. % PRA 0 06/23/2024 5:22 PM CDT [facility] ([facility]) Class 2 SAB Test Date [id number] 06/23/2024 5:22 PM CDT [facility] ([facility]) Comment: This test was developed and its performance characteristics determined by the [facility]. It has not been cleared or approved [...] high complexity clinical laboratory testing. CLIA ID# [id number] Performed at: [facility], [address] [place] [phone] English As A Second Language Instructor:Dr. Familia Geiger, PhD, Blood BLOOD SPECIMEN / Unknown Lab Venipuncture / Unknown 06/20/2024 11:21 AM CDT 06/20/2024 11:33 AM CDT Ban Alfaro MD LAB - BLOOD BAN K ORDERABLES Performing Organization Address City/State/[facility] de Phone Number [facility] ([facility]) [address] * HLA ANTIBODY SCREEN LUM CLASS 1 SAB (06/20/2024 11:21 AM CDT) Only the most recent of2 resultswithin the time period is included. % PRA 0 06/23/2024 5:22 PM CDT [facility] ([facility]) Class 1 SAB Test Date [id number] 06/23/2024 5:22 PM CDT [facility] ([facility]) Comment: This test was developed and its performance characteristics determined by the [facility]. It has not been [...] high complexity clinical laboratory testing. CLIA ID# [id number] Performed at: [facility], [address] [place] [phone] English As A Second Language Instructor:Dr. Familia Geiger, PhD, Blood BLOOD SPECIMEN / Unknown Lab Venipuncture / Unknown 06/20/2024 11:21 AM CDT 06/20/2024 11:32 AM CDT Ban Alfaro MD LAB - BLOOD JV K ORDERABLES Performing Organization Address [facility] Co de Phone Number [facility] ([facility]) [address] * CORONARY ANGIOGRAPHY (03/02/2024 4:58 PM [...] of39 resultswithin the time period is included. [facility] Glucose WB/POC 69(L) 70 - 115 mg/dL 03/02/2024 4:20 PM CDT [facility] Specimen Type Arterial 03/02/2024 4:20 PM CDT [facility] Blood BLOOD SPECIMEN / Unknown 03/02/2024 2:29 PM CDT 03/02/2024 4:20 PM CDT Kristel White MD LAB - POINT OF CARE ORDERABLES Performing Organization Address City/State/[facility] Co de Phone Number [facility] [address] [place] [phone], [facility] [phone] * (ABNORMAL) CBC W/O DIFFERENTIAL (03/02/2024 2:25 PM CDT) [facility] WBC 7.1 4.0 - 10.7 x10E9/L 03/02/2024 2:38 PM CDT [facility] RBC Count 3.37(L) 4.30 - 5.80 x10E12/L 03/02/2024 2:38 PM CDT [facility] Hemoglobin 10.4(L) 13.3 - 17.5 g/dL 03/02/2024 2:38 PM CDT [facility] Hematocrit 30.7(L) 38.7 - 51.1 % 03/02/2024 2:38 PM T [facility] MCV 91.1 80.0 - 98.0 fL 03/02/2024 2:38 PM T [facility] MCH 30.9 26.7 - 33.6 pg 03/02/2024 2:38 PM [facility] MCHC 33.9 31.7 - 36.3 g/dL 03/02/2024 2:38 PM [facility] RDW-CV 13.0 11.3 - 14.8 % 03/02/2024 2:38 PM [facility] Platelet Count 249 150 - 420 x10E9/L 03/02/2024 2:38 PM [facility] MPV 10.4 7.8 - 11.4 fL 03/02/2024 2:38 PM [facility] Blood BLOOD SPECIMEN / Unknown Venipuncture / Unknown 03/02/2024 2:25 PM CDT 03/02/2024 2:32 PM CDT Crista Mcgarry HOUSE PIPING INSPECTOR-BONE CHAR OPERATOR LAB - HEMATOLO GY ORDERABLES [facility] [address] [place] [phone], [facility] [phone] * (ABNORMAL) BASIC METABOLIC PANEL (CALCIUM TOTAL) (03/02/2024 2:25 PM CDT) Only the most recent of9 resultswithin the time period is included. BUN 55(H) 7 - 26 mg/dL 03/02/2024 2:58 PM [facility] Creatinine 7.04(H) 0.71 - 1.16 mg/dL 03/02/2024 2:58 PM [facility] Sodium 138 136 - 145 mmol/L 03/02/2024 2:58 PM [facility] Potassium 4.2 3.5 - 4.5 mmol/L 03/02/2024 2:58 PM [facility] Chloride 105 98 - 107 mmol/L 03/02/2024 2:58 PM [facility] CO2 24 22 - 29 mmol/L 03/02/2024 2:58 PM CDT [facility] Glucose 72 70 - 115 mg/dL 03/02/2024 2:58 PM CDT [facility] Calcium 9.5 8.4 - 10.2 mg/dL 03/02/2024 2:58 PM T [facility] Anion Gap 9 6 - 16 03/02/2024 2:58 PM CDT [facility] BUN/Creatinine Ratio 8 7 - 23 03/02/2024 2:58 PM CDT [facility] Osmolality Calculated 300(H) 275 - 295 mOsm/kg 03/02/2024 2:58 PM T [facility] eGFR by CKD-EPI 8(L) >=90 mL/min/1.7 3 m2 03/02/2024 2:58 PM CDT [facility] Blood BLOOD SPECIMEN / Unknown Venipuncture / Unknown 03/02/2024 2:25 PM CDT 03/02/2024 2:32 PM CDT Crista Mcgarry HOUSE PIPING INSPECTOR-BONE CHAR OPERATOR LAB - CHEMISTR Y ORDERABLES [facility] [address] [place] [address], [facility] [phone] * EKG 12-LEAD (01/19/2024 2:23 PM CDT) Only the most recent of5 resultswithin the time period is included. Ventricular Rate 69 BPM [facility] Atrial Rate 69 BPM [facility] P-R Interval 194 ms [facility] QRS Duration ms 100 ms [facility] Q-T Interval ms 372 ms [facility] QTC Calculation (Bezet) 398 ms [facility] Calculated P [place] 35 degrees [facility] Calculated R [place] -42 degrees [facility] Calculated T [place] 53 degrees [facility] Interpretation EKG NORMAL SINUS RHYTHM LEFT AXIS DEVIATION SEPTAL INFARCT , AGE UNDETERMINED ABNORMAL ECG WHEN COMPARED WITH ECG OF 28-JUL-2023 10:30, INCOMPLETE RIGHT BUNDLE BRANCH BLOCK IS NO LONGER PRESENT SEPTAL INFARCT IS NOW PRESENT Confirmed by MD ELSI, JENNIFER ([id number]) on 01/20/2024 11:02:24 AM [facility] 01/19/2024 2:23 PM CDT 01/20/2024 11:02 AM CDT Jennifer Khanna MD ECG ORDERABLES [facility] * (ABNORMAL) URINALYSIS COMPLETE W MICROSCOPIC (07/28/2023 1:04 PM CDT) Only the most recent of3 resultswithin the time period is included. Color UA Yellow Straw, Yellow 07/28/2023 1:54 PM CDT [facility] Clarity UA Clear Clear 07/28/2023 1:54 PM T [facility] Specific [place] UA 1.013 1.005 - 1.030 07/28/2023 1:54 PM [facility] pH UA 5.0 5.0 - 8.0 pH 07/28/2023 1:54 PM [facility] Protein UA 2+(A) Negative 07/28/2023 1:54 PM [facility] Glucose UA Negative Negative 07/28/2023 1:54 PM [facility] Ketone UA Negative Negative 07/28/2023 1:54 PM [facility] Bilirubin UA Negative Negative 07/28/2023 1:54 PM [facility] Blood UA 1+(A) Negative 07/28/2023 1:54 PM [facility] Nitrite UA Negative Negative 07/28/2023 1:54 PM [facility] Leukocyte Esterase Negative Negative 07/28/2023 1:54 PM [facility] Urobilinogen UA Negative Negative mg/dL 07/28/2023 1:54 PM [facility] RBC UA 0-2 None Seen, 0-2, 3-5 /HPF 07/28/2023 1:54 PM [facility] WBC UA 0-5 None Seen, 0-5 /HPF 07/28/2023 1:54 PM [facility] Squamous Epithelial Cells UA None Seen None Seen, 0-2, 3-5 /HPF 07/28/2023 1:54 PM CDT [facility] Urine URINE SPECIMEN OBTAINED BY CLEAN CATCH PROCEDURE / Unknown Collection / Unknown 07/28/2023 1:04 PM CDT 07/28/2023 1:39 PM CDT Narrative [facility] - 07/28/2023 1:54 PM CDT Augustin Chacko MD LAB - URINALYSIS ORD ERABLES [facility] [address] [place] [address], [facility] [phone] * BLOOD TYPE ABO+ RH PANEL (07/28/2023 11:35 AM CDT) ABO Rh B POS 07/28/2023 12:45 PM CDT [facility] Blood BLOOD SPECIMEN / Unknown Lab Venipuncture / Unknown 07/28/2023 11:35 AM CDT 07/28/2023 11:56 AM CDT Augustin Chacko MD LAB - BLOOD BANK ORD ERABLES [facility] [address] [place] [address], [facility] [phone] * HLA TYPING DNA LOW RESOLUTION DR,DQ (07/28/2023 11:29 AM CDT) DR DQ Low Resolution DRB1-1 *07 08/06/2023 5:39 PM CDT [facility] ([facility]) DR DQ Low Resolution DQB1-1 *02 08/06/2023 5:39 PM CDT [facility] ([facility]) DR DQ Low Resolution DRB3-1 Negative 08/06/2023 5:39 PM CDT [facility] ([facility]) DR DQ Low Resolution DRB3-2 Negative 08/06/2023 5:39 PM CDT [facility] ([facility]) DR DQ Low Resolution DRB4-1 *01 08/06/2023 5:39 PM CDT [facility] ([facility]) DR DQ Low Resolution DRB4-2 Negative 08/06/2023 5:39 PM CDT [facility] ([facility]) DR DQ Low Resolution DRB5-1 Negative 08/06/2023 5:39 PM CDT [facility] ([facility]) DR DQ Low Resolution DRB5-2 Negative 08/06/2023 5:39 PM CDT [facility] ([facility]) DR DQ Low Resolution Methodology Real Time PCR 08/06/2023 5:39 PM CDT [facility] ([facility]) DR DQ Low Resolution test date [id number] 08/06/2023 5:39 PM CDT [facility] ([facility]) Comment: This test was developed and its performance characteristics determined by the [facility]. It has not been [...] high complexity clinical laboratory testing. CLIA ID# [id number] Performed at: [facility], [address] [place] [phone] English As A Second Language Instructor:Dr. Familia Geiger, PhD, Blood BLOOD SPECIMEN / Unknown Lab Venipuncture / Unknown 07/28/2023 11:29 AM CDT 07/28/2023 11:56 AM CDT Augustin Chacko MD LAB - BLOOD BANK ORD ERABLES [facility] ([facility]) [address] [place] [address] * HLA TYPING DNA LOW RESOLUTION A,B,C (07/28/2023 11:29 AM CDT) ABC DNA A1 *02 08/06/2023 5:39 PM CDT [facility] ([facility]) ABC DNA A2 *34 08/06/2023 5:39 PM CDT [facility] ([facility]) ABC DNA B1 *18 08/06/2023 5:39 PM CDT [facility] ([facility]) ABC DNA B2 *51 08/06/2023 5:39 PM CDT [facility] ([facility]) ABC DNA BW1 6 08/06/2023 5:39 PM CDT [facility] ([facility]) ABC DNA BW2 4 08/06/2023 5:39 PM CDT [facility] ([facility]) ABC DNA C1 *02 08/06/2023 5:39 PM CDT [facility] ([facility]) ABC DNA C2 *16 08/06/2023 5:39 PM CDT [facility] ([facility]) ABC DNA Methodology Real Time PCR 08/06/2023 5:39 PM CDT [facility] ([facility]) ABC DNA Test Date [id number] 5:39 PM CDT [facility] ([facility]) Comment: This test was developed and its performance characteristics determined by the [facility]. It has not been [...] high complexity clinical laboratory testing. CLIA ID# [id number] Performed at: [facility], [address] [place] [phone] English As A Second Language Instructor:Dr. Familia Geiger, PhD, Blood BLOOD SPECIMEN / Unknown Lab Venipuncture / Unknown 07/28/2023 11:29 AM CDT 07/28/2023 11:56 AM CDT Augustin Chacko MD LAB - BLOOD BANK ORD ERABLES [facility] ([facility]) [address] [place] [id number] * CANNABINOID SCREEN BLOOD (07/28/2023 11:29 AM CDT) [facility] Marijuana Metabolites Negative 07/30/2023 4:11 PM CDT [facility] ([facility]) Comment:REFERENCE RANGE: thr shold: 5 ng/mL Specimen Type Comment 07/30/2023 4:11 PM CDT [facility]) Comment: WHOLE BLOOD This specimen was screened by immunoassay at the thresholds listed above. Presumptive positive results have not been confirmed by an alternate method; results are intended for clinical medical purposes. Please contact the laboratory if confirmatory testing is desired. This test was developed and its performance characteristics determined by [facility]. It has not been cleared or approved by the Food and Drug Administration. Blood BLOOD SPECIMEN / Unknown Lab Venipuncture / Unknown 07/28/2023 11:29 AM CDT 07/28/2023 11:57 AM CDT Narrative [facility] ([facility]) - 07/30/2023 4:11 PM CDT Performed at: [facility] [employer] [address] [id number] English As A Second Language Instructor: Stephanie Kirkpatrick [facility], Phone: [phone] Augustin Cahcko MD LAB - CHEMISTRY ROSALES MANUEL [facility] [place] Organization Address City/State/ZIP Co de Phone Number [facility] ([facility]) [address] [place] [address] * (ABNORMAL) CYTOMEGALOVIRUS ANTIBODY IGG BLOOD (07/28/2023 11:29 AM CDT) [facility] Cytomegalovirus Antibody IgG 0.84(H) <=0.70 U/mL 07/30/2023 5:48 AM CDT [facility] ([facility]) Comment: INTERPRETIVE INFORMATION: Cytomegalovirus Antibody, IgG [...] laboratory at the same time. Performed By: [employer] [address] [place] [address] Pricer: Matias Randall MD, PhD CLIA Number: [id number] Blood BLOOD SPECIMEN / Unknown Lab Venipuncture / Unknown 07/28/2023 11:29 AM CDT 07/28/2023 11:55 AM CDT Augustin Chacko MD LAB - CHEMISTRY ORDE RABRENARD Performing Organization Address [facility] Co de Phone Number [employer] [facility]) [address] [place] [address] * RUBELLA ANTIBODY IGG TITER (07/28/2023 11:29 AM CDT) [facility] Rubella Antibody IgG 219.0 IU/mL 07/30/2023 6:02 AM CDT [employer] ([facility]) Comment: INTERPRETIVE INFORMATION: Rubella Antibody, IgG [...] the amount of antibody present. Performed By: [employer] [address] [place] [address] Pricer: Matias Randall MD, PhD CLIA Number: [id number] Blood BLOOD SPECIMEN / Unknown Lab Venipuncture / Unknown 07/28/2023 11:29 AM CDT 07/28/2023 11:55 AM CDT Augustin Chacko MD LAB - SEROLOGY ORDER [facility]) [address] [place] [address] * RUBEOLA ANTIBODY IGG (07/28/2023 11:29 AM CDT) Measles (Rubeola) Antibody IgG >300.0 AU/mL 07/30/2023 10:20 AM CDT [facility] [employer] ([facility]) Comment: INTERPRETIVE INFORMATION: Measles (Rubeola) Antibody, [...] laboratory at the same time. Performed By: [employer] [address] [place] [address] Pricer: Matias Randall MD, PhD CLIA Number: [id number] Blood BLOOD SPECIMEN / Unknown Lab Venipuncture / Unknown 07/28/2023 11:29 AM CDT 07/28/2023 11:55 AM CDT Augustin Chacko MD LAB - CHEMISTRY ROSALES MANUEL [facility] [place] Organization Address City/State/ZIP Co de Phone Number [facility] [employer] [facility]) [address] * MUMPS ANTIBODY IGG (07/28/2023 11:29 AM CDT) Mumps Virus Antibody IgG 228.0 AU/mL 07/30/2023 4:17 AM CDT [facility] [employer] ([facility]) Comment: INTERPRETIVE INFORMATION: Mumps Ab, IgG [...] laboratory at the same time. Performed By: [facility] [employer] [address] [place] [address] Pricer: Matias Randall MD, PhD CLIA Number: [id number] Blood BLOOD SPECIMEN / Unknown Lab Venipuncture / Unknown 07/28/2023 11:29 AM CDT 07/28/2023 11:55 AM CDT Augustin Chacko MD LAB - CHEMISTRY ORDE MAR [facility] [employer] [facility]) [address] [place] [address] * VARICELLA ZOSTER ANTIBODY IGG (07/28/2023 11:29 AM CDT) [facility] Varicella zoster Virus Antibody IgG >4000.0 IV 07/30/2023 10:26 AM CDT [facility] [employer] ([facility]) Comment: INTERPRETIVE INFORMATION: VZV Ab, IgG [...] laboratory at the same time. Performed By: [employer] [address] [place] [address] Pricer: Matias Randall MD, PhD CLIA Number: [id number] Blood BLOOD SPECIMEN / Unknown Lab Venipuncture / Unknown 07/28/2023 11:29 AM CDT 07/28/2023 11:55 AM CDT Augustin Chacko MD LAB - CHEMISTRY ORDJnoo MANUEL Performing Organization Address City/[facility]/ZIP Co de Phone Number [employer] ([facility]) [address] * (ABNORMAL) YUE-BRASHER VIRUS ANTIBODY TO VCA IGG (07/28/2023 11:29 AM CDT) Yue-Brasher Virus Antibody IgG Viral Capsid Antigen >750.0(H) 0.0 - 21.9 U/mL 07/30/2023 6:03 AM CDT [facility] [employer] ([facility]) Comment: INTERPRETIVE INFORMATION: Yue-Brasher Virus Antibody to Viral Capsid Antigen, IgG 17.9 U/mL or less.......Not Detected 18.0-21.9 U/mL..........Indeterminate - Repeat testing in 10-14 days may be helpful. 22.0 U/mL or greater....Detected Performed By: [employer] [address] [place] [address] Pricer: Matias Randall MD, PhD CLIA Number: [id number] Blood BLOOD SPECIMEN / Unknown Lab Venipuncture / Unknown 07/28/2023 11:29 AM CDT 07/28/2023 11:55 AM CDT Augustin Chacko MD LAB - CHEMISTRY ROSALES MANUEL Performing Organization Address City/[facility] Co de Phone Number [facility] [employer] ([facility] [facility] [address] * TYPE + SCREEN PANEL (07/28/2023 11:29 AM CDT) Only the most recent of2 resultswithin the time period is included. Antibody Screen NEG 12:44 PM CDT [facility] ABO Rh B POS 07/28/2023 12:44 PM CDT [facility] Blood Bank BLOOD SPECIMEN / Unknown Lab Venipuncture / Unknown 07/28/2023 11:29 AM CDT 07/28/2023 11:56 AM CDT Augustin Chacko MD LAB - BLOOD BANK ORD ERABLES Performing Organization Address City/[facility]/ZIP Co de Phone Number [facility] [address] [place] [address], [facility] [phone] * ALCOHOL ETHYL BLOOD (07/28/2023 11:29 AM CDT) Ethanol (mg/dL) <10 <=10 mg/dL 12:39 PM CDT [facility] Ethanol Calculated (g/dL) <0.010 <0.010 g/dL 07/28/2023 12:39 PM CDT [facility] Blood BLOOD SPECIMEN / Unknown Lab Venipuncture / Unknown 07/28/2023 11:29 AM CDT 07/28/2023 12:04 PM CDT Narrative [facility] - 07/28/2023 12:39 PM CDT Ethanol Interp <10: None Detected. Depression of [employer]: >100 mg/dl Potentially Critical: >250 mg/dl Potentially [...] - CHEMISTRY ORDE MAR Performing Organization Address [facility]/ZIP Co de Phone Number [facility] [address] [place] [address], [facility] [phone] * CT CHEST ABDOMEN PELVIS WO CONT (07/28/2023 10:47 AM CDT) Anatomical Region Laterality Modality Chest, Abdomen, Pelvis Computed Tomography 07/28/2023 11:1 2 AM CDT Impressions 07/28/2023 10:19 PM CDT Impression: 1.No acute abnormality in the chest. 2.Mild, sparse emphysematous change in bilateral lungs. 3.Bilateral atrophic kidneys. 4.No significant calcifications of the external iliac arteries. > Dictated by Dany Olvera MD (residential real estate sales manager). I, Kieran Bliss MD have personally reviewed and interpreted this examination/study. 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 > Dictated by Dany Olvera MD (residential real estate sales manager). I, Kieran Bliss MD have personally reviewed and interpreted this examination/study. > Interpreting Provider: Kieran Bliss MD on 07/28/2023 10:19 PM Augustin Chacko MD CT ORDERABLES * ECHO COMPLETE W CONTRAST (07/28/2023 10:12 AM CDT) BSA [id number] m2 SSM CV FUJ I PACS LV [...] CV FUJ I PACS LV mass 2D 158.26364 [id number] 96 - 200 g SSM CV FUJI [...] Index 28 ml/m2 [facility] CV FUJI PACS [id number] 7.271 cm SSM CV FUJ I PACS [id number] 7.453 cm SSM CV FUJ I PACS [...] Document CARDIAC SERVICES ORD ERABLES * PT-INR [facility] (02/03/2020 12:09 AM CDT) Only the most recent of7 resultswithin the time period is included. PT 14.0 12.1 - 14.8 Seconds 02/03/2020 12:29 AM CDT [facility] INR 1.1 See Comment 02/03/2020 12:29 AM CDT [facility] Comment:The suggested therap eutic range for standard coumadin (warfarin) therapy is an INR of 2.0-3.0. For high-risk patients (Mechanical Mitral Valve Prosthesis, etc.), the suggested prophylactic therapeutic range is an INR of 2.5-3.5. Blood BLOOD SPECIMEN / Unknown Lab Venipuncture / Unknown 02/03/2020 12:09 AM CDT 02/03/2020 12:18 AM CDT Mesha Bonilla MD LAB - COAGULATIO N ORDERABLES [address] [phone] * MAGNESIUM BLOOD (02/03/2020 12:09 AM CDT) Only the most recent of6 resultswithin the time period is included. Magnesium 1.8 1.6 - 2.6 mg/dL 02/03/2020 12:50 AM CDT [facility] Blood BLOOD SPECIMEN / Unknown Lab Venipuncture / Unknown 02/03/2020 12:09 AM CDT 02/03/2020 12:18 AM CDT Mesha Bonilla MD LAB - CHEMI[place] [address], [facility] [phone] * XR CHEST 1VW PORTABLE (02/01/2020 9:38 [...] distal stomach. Dictated by Akash Chauhan MD (residential real estate sales manager). IDr. NAHUM MD have personally reviewed and [...] distal stomach. Dictated by Akash Chauhan MD (residential real estate sales manager). Dr. NAHUM Yu MD have personally reviewed and interpreted this examination/study. This report was electronically signed by NAHUM AMARO MD on01/31/2020 9:36 AM . Delmer Estrada MD DIAGNOSTIC IMAGING O [place] * (ABNORMAL) DIFFERENTIAL MANUAL (01/30/2020 11:59 PM CDT) Only the most recent of2 resultswithin the time period is included. WBC (corrected for NRBC) 15.0 10 3/uL 01/31/2020 12:54 AM CDT [facility] Total Cell Count 100 01/31/2020 12:54 AM [facility] Neutrophils Absolute Manual 13.05(H) 1.60 - 7.00 10 3/uL 01/31/2020 12:54 AM [facility] Comment:(BANDS+SEGS) x WBC = NEUT # (ANC) Lymphocyte Absolute Manual 1.50 0.80 - 2.90 10 3/uL 01/31/2020 12:54 AM [facility] Monocytes Absolute Manual 0.45 0.14 - 0.66 10 3/uL 01/31/2020 12:54 AM [facility] Band % Manual 8 0 - 10 % 01/31/2020 12:54 AM [facility] Neutrophil % Manual 79(H) 30 - 60 % 01/31/2020 12:54 AM [facility] Lymphocyte % Manual 10(L) 20 - 45 % 01/31/2020 12:54 AM [facility] Monocytes % Manual 3 2 - 10 % 01/31/2020 12:54 AM [facility] Platelet Estimate Adequate Adequate 01/31/2020 12:54 AM [facility] RBC Morphology Normal 01/31/2020 12:54 AM [facility] Blood BLOOD SPECIMEN / Unknown Lab Venipuncture / Unknown 01/30/2020 11:59 PM CDT 01/31/2020 12:06 AM CDT Mesha Bonilla MD LAB - HEMATOLOGY ORDERABLES Performing Organization Address [facility]/State/[facility] Co de Phone Number [facility] [address] [place] [address] * Peripheral Nerve Block (01/30/2020 1:07 PM [...] Not Established mmol/L 01/30/2020 1:33 PM CDT [facility] Urine URINE SPECIMEN OBTAINED BY CLEAN CATCH PROCEDURE / Unknown Collection / Unknown 01/30/2020 12:13 PM CDT 01/30/2020 12:39 PM CDT Aster Chong MD LAB - URINE CHEMISTR Y ORDERABLES [address] [phone] * UREA NITROGEN URINE RANDOM (01/30/2020 12:13 PM CDT) Urea Nitrogen Random Urine 576 Not Established mg/dL 01/30/2020 1:33 PM CDT [facility] Urine URINE SPECIMEN OBTAINED BY CLEAN CATCH PROCEDURE / Unknown Collection / Unknown 01/30/2020 12:13 PM CDT 01/30/2020 12:39 PM CDT Aster Chong MD LAB - URINE CHEMISTR Y ORDERABLES Performing Organization Address [facility] [place] [address], [facility] [phone] * POTASSIUM URINE RANDOM (01/30/2020 12:13 PM CDT) Potassium Urine 35 Not Established mmol/L 01/30/2020 1:33 PM CDT [facility] Urine URINE SPECIMEN OBTAINED BY CLEAN CATCH PROCEDURE / Unknown Collection / Unknown 01/30/2020 12:13 PM CDT 01/30/2020 12:39 PM CDT Aster Chong MD LAB - URINE CHEMISTR Y ORDERABLES Performing Organization Address [facility] [place] [address], [facility] [phone] * CHLORIDE URINE RANDOM (01/30/2020 12:13 PM CDT) Chloride Random Urine 53 Not Established mmol/L 01/30/2020 1:33 PM CDT [facility] Urine URINE SPECIMEN OBTAINED BY CLEAN CATCH PROCEDURE / Unknown Collection / Unknown 01/30/2020 12:13 PM CDT 01/30/2020 12:39 PM CDT Aster Chong MD LAB - URINE CHEMISTR Y ORDERABLES Performing Organization Address [facility] [place] [address], [facility] [phone] * ETT LINE PERFORMABLE (01/28/2020 4:28 PM CDT) Narrative Lor Fulton MD - 01/28/2020 4:28 PM CDT Lor Fulton MD 01/28/2020 4:29 PM Endotracheal Tube Placement: Patient Location: OR. Intubation Event Date/Time: 01/28/2020 3:34 PM Procedure: intubation ([id number]). Procedure Section: Sedation: under general anesthesia. Indications [...] UNIT(S), 2 Units (01/28/2020 4:51 AM CDT) [facility] Unit Description LR Red Cells [facility] Unit ABO B [facility] Unit Rh POS [facility] Product [facility] RL1 [facility] B[facility] Unit Donor # [id number] [facility] Unit Status released [facility] BLOO D [facility] LAB Product Code [id number] [facility] OD [facility] Blood Type Barcode 7300 [facility] Unit Description LR Red Cells [facility] Unit ABO B [facility] Unit Rh POS [facility] Product [facility] RL1 [facility] Unit Donor # [id number] [facility] Unit Status released [facility] Product Code [id number] [facility] BLO OD [facility]ANK [facility] Blood Type Barcode 7300 [facility] Blood Bank BLOOD SPECIMEN / Unknown 01/28/2020 4:51 AM CDT 01/28/2020 4:58 AM CDT Junior Colbert MD LAB - BLOOD BANK ORD ERABLES [facility] [address] * TROPONIN I (01/28/2020 4:47 AM CDT) [facility] Troponin I 0.014 <0.032 ng/mL 01/28/2020 5:26 AM CDT [facility] Blood BLOOD SPECIMEN / Unknown Venipuncture / Unknown 01/28/2020 4:47 AM CDT 01/28/2020 4:54 AM CDT Jessica Joyce MD LAB - CHEMISTRY ROSALES JERONIMORENARD Performing Organization Address City/[facility]/ZIP Co de Phone Number [address] [phone] * LACTIC ACID BLOOD (01/28/2020 4:47 AM CDT) Lactic Acid-Stat 1.3 0.5 - 2.0 mmol/L 01/28/2020 5:15 AM CDT [facility] Blood BLOOD SPECIMEN / Unknown Venipuncture / Unknown 01/28/2020 4:47 AM CDT 01/28/2020 4:54 AM CDT Jessica Joyce MD LAB - CHEMISTRY ORDJono MANUEL Performing Organization Address City/[facility]/ZIP Co de Phone Number [address] [phone] * MRI CARDIAC STUDY WO CONTRAST (01/21/2019 12:39 PM CDT) Anatomical Region Laterality Modality Magnetic Resonan ce 01/22/2019 12:3 0 PM CDT Impressions 01/24/2019 11:04 AM CDT IMPRESSION: 1. Biventricular hypertrophy. Differential considerations include cardiomyopathy vs. chronic hypertension, however, cardiomyopathy is favored due to the right ventricular hypertrophy. Report dictated by Suresh Carlos DO (residential real estate sales manager). I, Dr. DYLAN RODRIGES M.D. have personally [...] hypertrophy. Report dictated by Suresh Carlos DO (residential real estate sales manager). I, Dr. DYLAN RODRIGES M.D. have personally reviewed and interpreted this examination/study. This report was electronically signed by DYLAN RODRIGES M.D. on01/24/2019 11:04 AM . 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
--- OUTSIDE RECORDS SUMMARY | 2024-12-05 00:23 | XMS_ITS | Encounter Summary ---
Author Name [facility] [facility] [place] Address [address] [place] [address] Care Team Providers Care Magneto Electrician Name Role Phone ERIKA DEE Primary Care [...] PART A Jul 12, 2019 PART A [id number] [phone] PRASANNA KATZ PATIENT MEDICARE (WNR) MEDICARE (M) PART A Jul 12, 2019 PART A [id number] [phone] PRASANNA KATZ PATIENT Selected Encounter This section includes the information on record at [place] for the Encounter. Date/Time Encounter Type Encounter Description Reason Provider Source Jan 23, 2024 12:30 PM COMB ART/VENOUS BLOOD TUBING ASSISTED HEMODIALYSIS ICD-10-CM N18.6 End stage renal disease JEREMY COPE Encounter Template Text not used by [facility] Assessments - Encounter Diagnoses This section includes the primary and secondary diagnoses documented for the Encounter. 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 This section includes future appointments and future orders which are active, pending or scheduled. Future Appointments This section includes appointments that were scheduled to occur 6 months from the date of the Encounter, up to a maximum of 20 appointments. The data comes from all [place] treatment facilities. Appointment Date/Time Appointment Type Appointme nt Facility Name Jan 25, 2024 02:30 PM AMBULATORY - MEDICINE [facility] Jan 26, 2024 12:30 PM AMBULATORY - MEDICINE [facility] Jan 28, 2024 12:30 PM AMBULATORY - MEDICINE [facility] Feb 02, 2024 12:30 PM AMBULATORY - MEDICINE [facility] Feb 04, 2024 12:15 PM AMBULATORY - MEDICINE [facility] Feb 06, 2024 12:30 PM AMBULATORY - MEDICINE [facility] Feb 09, 2024 12:30 PM AMBULATORY - MEDICINE [facility] February 11, 2024 12:30 PM AMBULATORY - MEDICINE [facility] February 13, 2024 12:30 PM AMBULATORY - MEDICINE [facility] February 15, 2024 08:00 AM AMBULATORY - NONE [facility] February 15, 2024 08:30 AM AMBULATORY - MEDICINE [facility] Apr 05, 2024 09:30 AM AMBULATORY - MEDICINE [facility] Apr 27, 2024 07:30 AM AMBULATORY - SURGERY [facility] May 02, 2024 08:00 AM AMBULATORY - NONE [facility] May 02, 2024 08:30 AM AMBULATORY - MEDICINE [facility] May 16, 2024 02:00 PM AMBULATORY - MEDICINE [facility] Jul 12, 2024 08:00 AM AMBULATORY - NONE [facility] Jul 12, 2024 08:30 AM AMBULATORY - MEDICINE [facility] Lab Results: +/- 30 days of the encounter This section includes the Chemistry and Hematology Lab Results on record with [facility] for the patient. Radiology Reports and Pathology Reports are provided separately, in subsequent sections. Lab Results This section contains the Chemistry/Hematology Results that were resulted 30 days before or 30 daysafter the date of the Encounter. Date/Time Source Result Type Result - Unit Interpretation Reference Range Comment Feb 09, 2024 12:40 PM [facility] HEP B CORE AB TOTAL. (STL) Specimen Type: SERUM No comment entered. Ordering Provider: KYLER PURCELL Report Released Date/Time: Feb 09, 2024 10:43 AM Reporting Lab: [address] [address] Performing Lab: [address] [address] HEP B CORE AB TOTAL. (STL) Nonreactive Nonreactive Feb 09, 2024 12:40 PM [facility] HEP HB S Ag ([place]) (STL) Specimen Type: SERUM No comment entered. Ordering Provider: KYLER PURCELL Report Released Date/Time: Feb 09, 2024 10:43 AM Reporting Lab: [address] [address] Performing Lab: [address] [address] HEP HB S Ag ([place]) (STL) Nonreactive Nonreactive Feb 09, 2024 12:40 PM [facility] HEPATITIS B SURFACE AB PNL Specimen Type: SERUM No comment entered. Ordering Provider: KYLER PURCELL Report Released Date/Time: Feb 09, 2024 10:43 AM Reporting Lab: [address] [address] Performing Lab: [address] [address] HEP B Surface Ab-HBsAB (STL) REACTIVE m[IU]/mL Nonreactive HEP Bs AB-QUANT (STL) 79.36 m[IU]/mL Feb 09, 2024 12:40 PM [facility] RENAL PANEL Specimen Type: PLASMA Comment: No hemolysis noted. Ordering Provider: KYLER PURCELL Report Released Date/Time: Feb 04, 2024 03:20 PM Reporting Lab: [address] [address] Performing Lab: [address] [address] CREATININE 7.69 mg/dL H 0.7-1.3 UREA NITROGEN 52.2 mg/dL H 9.0-25.0 GLUCOSE 147 mg/dL H 72-99 SODIUM 142 meq/L 136-145 POTASSIUM 4.1 meq/L 3.5-5 CHLORIDE 107 meq/L 98-107 CARBON DIOXIDE 22 meq/L 22-31 CALCIUM 10.2 mg/dL 8.4-10.4 PHOSPHOROUS 3.7 mg/dL 2.3-4.7 ALBUMIN 3.7 g/dL 3.4-5 EGFR (CKD-EPI 2020) 7.1 LL >60 Feb 09, 2024 12:40 PM [facility] CBC Specimen Type: BLOOD No comment entered. Ordering Provider: KYLER PURCELL Report Released Date/Time: Feb 04, 2024 03:20 PM Reporting Lab: [address] [address] Performing Lab: [address] [address] WBC 9.7 10*3/uL 3.6-11.2 RBC 3.09 10*6/uL [...] 10*3/uL 0.00-0.20 Feb 04, 2024 05:00 PM [facility] URR-POST PANEL (STL) Specimen Type: PLASMA No comment entered. Ordering Provider: KYLER PURCELL Report Released Date/Time: Feb 04, 2024 01:42 PM Reporting Lab: [address] [address] Performing Lab: [address] [address] BUN-POST DIALYSIS 16.2 mg/dL 9.0-25.0 URR (STL) 70.4 67.0-100.0 Feb 04, 2024 12:45 PM [facility] RENAL PANEL Specimen Type: PLASMA Comment: No hemolysis noted. Ordering Provider: KYLER PURCELL Report Released Date/Time: Feb 04, 2024 01:42 PM Reporting Lab: [address] [address] Performing Lab: [address] [address] CREATININE 6.97 mg/dL H 0.7-1.3 UREA NITROGEN 54.7 mg/dL H 9.0-25.0 GLUCOSE 134 mg/dL H 72-99 SODIUM 142 meq/L 136-145 POTASSIUM 4.0 meq/L 3.5-5 CHLORIDE 105 meq/L 98-107 CARBON DIOXIDE 24 meq/L 22-31 CALCIUM 9.7 mg/dL 8.4-10.4 PHOSPHOROUS 4.8 mg/dL H 2.3-4.7 ALBUMIN 3.9 g/dL 3.4-5 EGFR (CKD-EPI 2020) 7.9 LL >60 Feb 02, 2024 04:30 PM [facility] URR-POST PANEL (STL) Specimen Type: PLASMA No comment entered. Ordering Provider: KYLER PURCELL Report Released Date/Time: Feb 02, 2024 03:39 PM Reporting Lab: [address] [address] Performing Lab: [address] [address] BUN-POST DIALYSIS 22.9 mg/dL 9.0-25.0 URR (STL) 60.9 L 67.0-100.0 Feb 02, 2024 11:50 AM [facility] RENAL PANEL Specimen Type: PLASMA Comment: No hemolysis noted. Ordering Provider: KYLER PURCELL Report Released Date/Time: Feb 02, 2024 07:35 AM Reporting Lab: [address] [address] Performing Lab: [address] [address] CREATININE 8.34 mg/dL H 0.7-1.3 UREA NITROGEN 58.6 mg/dL H 9.0-25.0 GLUCOSE 169 mg/dL H 72-99 SODIUM 142 meq/L 136-145 POTASSIUM 4.6 meq/L 3.5-5 CHLORIDE 111 meq/L H 98-107 CARBON DIOXIDE 20 meq/L L 22-31 CALCIUM 9.2 mg/dL 8.4-10.4 PHOSPHOROUS 3.6 mg/dL 2.3-4.7 ALBUMIN 3.7 g/dL 3.4-5 EGFR (CKD-EPI 2020) 6.4 LL >60 Feb 01, 2024 11:00 PM [facility] 24H UR CHEM PANEL (STL) Specimen Type: 24-HOUR URINE No comment entered. Ordering Provider: KYLER PURCELL Report Released Date/Time: Jan 28, 2024 04:55 PM Reporting Lab: [place] [id number] [facility] [address] Performing Lab: [address] [address] VOLUME 3289 mL SODIUM 24-HOUR URINE 226.941 H 40-220 POTASSIUM 24-HOUR URINE 35.8501 25-125 CHLORIDE 24-HOUR URINE 171.028 110-250 PROTEIN 24-HOUR URINE 1986.556 H 0-299.9 CREATININE 24-HOUR URINE [phone] Jan 28, 2024 05:29 PM [facility] CBC Specimen Type: BLOOD No comment entered. Ordering Provider: KYLER PURCELL Report Released Date/Time: Jan 28, 2024 05:07 PM Reporting Lab: [address] [address] Performing Lab: [address] [address] WBC 8.9 10*3/uL 3.6-11.2 RBC 2.96 10*6/uL [...] 10*3/uL 0.00-0.20 Jan 26, 2024 01:[address] [facility] PTH, INTACT (STL) Specimen Type: SERUM No comment entered. Ordering Provider: KYLER PURCELL Report Released Date/Time: Jan 21, 2024 03:14 PM Reporting Lab: [facility] [address] [facility] [address] Performing Lab: [facility] [address] [place] [address] PTH, INTACT (STL) 141.40 pg/mL H 8.7-77.7 Jan 26, 2024 01:00 PM [facility] IRON/TIBC PROFILE Specimen Type: SERUM No comment entered. Ordering Provider: KYLER PURCELL Report Released Date/Time: Jan 21, 2024 03:14 PM Reporting Lab: [facility] [address] [place] [phone] Performing Lab: [address] [address] TIBC 225 ug/dL L 250-450 TRANSFERRIN 180 mg/dL 163-344 IRON SATURATION 23 20-50 IRON 52 ug/dL L 65-175 Jan 26, 2024 01:00 PM [facility] FERRITIN Specimen Type: SERUM No comment entered. Ordering Provider: KYLER PURCELL Report Released Date/Time: Jan 21, 2024 03:14 PM Reporting Lab: [facility] [address] [place] [phone] Performing Lab: [address] [address] FERRITIN 118.78 ng/mL 22-275 Jan 26, 2024 01:00 PM [facility] RENAL PANEL Specimen Type: PLASMA Comment: No hemolysis noted. Ordering Provider: KYLER PURCELL Report Released Date/Time: Jan 21, 2024 03:14 PM Reporting Lab: [facility] [address] [facility] [address] Performing Lab: [facility] [address] [place] [address] CREATININE 8.25 mg/dL H 0.7-1.3 UREA NITROGEN 63.1 mg/dL H 9.0-25.0 GLUCOSE 157 mg/dL H 72-99 SODIUM 137 meq/L 136-145 POTASSIUM 4.2 meq/L 3.5-5 CHLORIDE 100 meq/L 98-107 CARBON DIOXIDE 26 meq/L 22-31 CALCIUM 9.6 mg/dL 8.4-10.4 PHOSPHOROUS 4.9 mg/dL H 2.3-4.7 ALBUMIN 3.7 g/dL 3.4-5 EGFR (CKD-EPI 2020) 6.5 LL >60 Jan 26, 2024 01:00 PM [facility] CBC Specimen Type: BLOOD No comment entered. Ordering Provider: KYLER PURCELL Report Released Date/Time: Jan 21, 2024 03:14 PM Reporting Lab: [facility] [address] [facility] [address] Performing Lab: [place] [address] [facility] [address] WBC 7.8 10*3/uL 3.6-11.2 RBC 2.95 10*6/uL [...] Jan 21, 2024 12:55 PM [facility] PT/INR NEW (STL-MA) Specimen Type: PLASMA No comment entered. Ordering Provider: KYLER PURCELL Report Released Date/Time: Jan 21, 2024 12:43 PM Reporting Lab: [facility] [address] [place] [phone] Performing Lab: [facility] [address] [place] [phone] PROTIME 15.9 s H 9.4-12.5 INR VALUE 1.4 {INR} Jan 21, 2024 12:55 PM [facility] RENAL PANEL Specimen Type: PLASMA Comment: No hemolysis noted. Ordering Provider: KYLER PURCELL Report Released Date/Time: Jan 21, 2024 12:41 PM Reporting Lab: [address] [address] Performing Lab: [address] [address] CREATININE 8.11 mg/dL H 0.7-1.3 UREA NITROGEN 82.6 mg/dL H 9.0-25.0 GLUCOSE 114 mg/dL H 72-99 SODIUM 139 meq/L 136-145 POTASSIUM 5.1 meq/L H 3.5-5 CHLORIDE 109 meq/L H 98-107 CARBON DIOXIDE 19 meq/L L 22-31 CALCIUM 9.3 mg/dL 8.4-10.4 PHOSPHOROUS 4.1 mg/dL 2.3-4.7 ALBUMIN 3.8 g/dL 3.4-5 EGFR (CKD-EPI 2020) 6.6 LL >60 Jan 14, 2024 11:55 AM [facility] RENAL PANEL Specimen Type: PLASMA Comment: No hemolysis noted. Ordering Provider: KYLER PURCELL Report Released Date/Time: Jan 13, 2024 07:58 AM Reporting Lab: [address] [address] Performing Lab: [address] [address] CREATININE 8.05 mg/dL H 0.7-1.3 UREA NITROGEN 70.7 mg/dL H 9.0-25.0 GLUCOSE 155 mg/dL H 72-99 SODIUM 140 meq/L 136-145 POTASSIUM 5.1 meq/L H 3.5-5 CHLORIDE 107 meq/L 98-107 CARBON DIOXIDE 21 meq/L L 22-31 CALCIUM 9.6 mg/dL 8.4-10.4 PHOSPHOROUS 4.8 mg/dL H 2.3-4.7 ALBUMIN 4.1 g/dL 3.4-5 EGFR (CKD-EPI 2020) 6.7 LL >60 Jan 11, 2024 11:36 AM [facility] GLUCOSE,BLOOD-poct (STL) Specimen Type: BLOOD Comment: Test Performed by: [id number] Meter #: [id number] Ordering Provider: LINOMED Report Released Date/Time: Jan 11, 2024 11:50 AM Reporting Lab: [address] [address] Performing Lab: [address] [address] GLUCOSE,BLOOD- poct (STL) 106 mg/dL H 72-Jan 11, 2024 11:07 AM [facility] GLUCOSE,BLOOD-poct (STL) Specimen Type: BLOOD Comment: Test Performed by: [id number] Meter #: [id number] Ordering Provider: LINO,MED Report Released Date/Time: Jan 11, 2024 11:18 AM Reporting Lab: [address] [address] Performing Lab: [address] [address] GLUCOSE,BLOOD- poct (STL) 109 mg/dL H 72-Jan 11, 2024 05:12 AM [facility] GLUCOSE,BLOOD-poct (STL) Specimen Type: BLOOD Comment: Test Performed by: [id number] Meter #: [id number] Ordering Provider: LINO,MED Report Released Date/Time: Jan 11, 2024 05:25 AM Reporting Lab: [address] [place] [address] Performing Lab: [address] [address] GLUCOSE,BLOOD- poct (STL) 88 mg/dL 72-Jan 10, 2024 08:19 PM [facility] GLUCOSE,BLOOD-poct (STL) Specimen Type: BLOOD Comment: Test Performed by: [id number] Meter #: [id number] Ordering Provider: LIDIA HUYNH Report Released Date/Time: Jan 10, 2024 08:31 PM Reporting Lab: [address] [address] Performing Lab: [address] [address] GLUCOSE,BLOOD- poct (STL) 153 mg/dL H 72-Jan 10, 2024 04:15 PM [facility] GLUCOSE,BLOOD-poct (STL) Specimen Type: BLOOD Comment: Test Performed by: [id number] Meter #: [id number] Ordering Provider: LIDIA HUYNH Report Released Date/Time: Jan 10, 2024 05:05 PM Reporting Lab: [address] [address] Performing Lab: [address] [address] GLUCOSE,BLOOD- poct (STL) 84 mg/dL -Jan 10, 2024 11:31 AM [facility] GLUCOSE,BLOOD-poct (STL) Specimen Type: BLOOD Comment: Test Performed by: [id number] Meter #: [id number] Ordering Provider: LIDIA HUYNH Report Released Date/Time: Jan 10, 2024 12:03 PM Reporting Lab: [address] [address] Performing Lab: [address] [address] GLUCOSE,BLOOD- poct (STL) 99 mg/dL 72-Jan 10, 2024 04:45 AM [facility] GLUCOSE,BLOOD-poct (STL) Specimen Type: BLOOD Comment: Test Performed by: [id number] Meter #: [id number] Ordering Provider: LIDIA HUYNH Report Released Date/Time: Jan 10, 2024 05:29 AM Reporting Lab: [place] [address] [facility] [address] Performing Lab: [place] [address] [facility] [address] GLUCOSE,BLOOD- poct (STL) 109 mg/dL H 72-99 Jan 09, 2024 08:08 PM [facility] GLUCOSE,BLOOD-poct (STL) Specimen Type: BLOOD Comment: Test Performed by: [id number] Meter #: [id number] Ordering Provider: LIDIA HUYNH Report Released Date/Time: Jan 09, 2024 08:28 PM Reporting Lab: [place] [address] [facility] [address] Performing Lab: [place] [address] [facility] [address] GLUCOSE,BLOOD- poct (STL) 110 mg/dL H 72-Jan 09, 2024 04:19 PM [facility] GLUCOSE,BLOOD-poct (STL) Specimen Type: BLOOD Comment: Test Performed by: [id number] Meter #: [id number] Ordering Provider: LIDIA HUYNH Report Released Date/Time: Jan 09, 2024 04:34 PM Reporting Lab: [address] [address] Performing Lab: [place] [address] [facility] [address] GLUCOSE,BLOOD- poct (STL) 119 mg/dL H 72-99 Jan 09, 2024 02:30 PM [facility] MAGNESIUM Specimen Type: PLASMA Comment: No hemolysis noted. Ordering Provider: TATI ZAVALA Report Released Date/Time: Jan 09, 2024 07:51 AM Reporting Lab: [place] [phone] Performing Lab: [facility] [address] [facility] [address] MAGNESIUM 1.6 mg/dL 1.6-2.6 Jan 09, 2024 02:30 PM [facility] RENAL PANEL Specimen Type: PLASMA Comment: No hemolysis noted. Ordering Provider: TATI ZAVALA Report Released Date/Time: Jan 09, 2024 07:51 AM Reporting Lab: [place] [address] [facility] [address] Performing Lab: [place] [address] [facility] [address] CREATININE 5.13 mg/dL H 0.7-1.3 UREA NITROGEN 46.2 mg/dL H 9.0-25.0 GLUCOSE 177 mg/dL H 72-99 SODIUM 136 meq/L 136-145 POTASSIUM 4.0 meq/L 3.5-5 CHLORIDE 101 meq/L 98-107 CARBON DIOXIDE 23 meq/L 22-31 CALCIUM 8.6 mg/dL 8.4-10.4 PHOSPHOROUS 2.7 mg/dL 2.3-4.7 ALBUMIN 3.6 g/dL 3.4-5 EGFR (CKD-EPI 2020) 11.5 LL >60 Jan 09, 2024 12:27 PM [facility] GLUCOSE,BLOOD-poct (STL) Specimen Type: BLOOD Comment: Test Performed by: [id number] Meter #: [id number] Ordering Provider: LIDIA HUYNH Report Released Date/Time: Jan 09, 2024 12:38 PM Reporting Lab: [place] [address] [facility] [address] Performing Lab: [address] [address] GLUCOSE,BLOOD- poct (STL) 98 mg/dL 72-99 Jan 09, 2024 07:15 AM [facility] GLUCOSE,BLOOD-poct (STL) Specimen Type: BLOOD Comment: Test Performed by: [id number] Meter #: [id number] Ordering Provider: LIDIA HUYNH Report Released Date/Time: Jan 09, 2024 07:58 AM Reporting Lab: [address] [address] Performing Lab: [address] [address] GLUCOSE,BLOOD- poct (STL) 86 mg/dL 72-99 Jan 08, 2024 09:04 PM [facility] GLUCOSE,BLOOD-poct (STL) Specimen Type: BLOOD Comment: Test Performed by: [id number] Meter #: [id number] Ordering Provider: LIDIA HUYNH Report Released Date/Time: Jan 08, 2024 09:47 PM Reporting Lab: [address] [address] Performing Lab: [address] [address] GLUCOSE,BLOOD- poct (STL) 90 mg/dL 72-99 Jan 08, 2024 09:01 PM [facility] HEP B CORE AB TOTAL. (STL) Specimen Type: SERUM No comment entered. Ordering Provider: EFREN TAYLOR Report Released Date/Time: Jan 08, 2024 02:35 PM Reporting Lab: [address] [address] Performing Lab: [address] [address] HEP B CORE AB TOTAL. (STL) Nonreactive Nonreactive Jan 08, 2024 09:01 PM [facility] HEP HB S Ag ([place]) (STL) Specimen Type: SERUM No comment entered. Ordering Provider: EFREN TAYLOR Report Released Date/Time: Jan 08, 2024 02:35 PM Reporting Lab: [address] [address] Performing Lab: [address] [address] HEP HB S Ag ([place]) (STL) Nonreactive Nonreactive Jan 08, 2024 09:01 PM [facility] HEPATITIS B SURFACE AB PNL Specimen Type: SERUM No comment entered. Ordering Provider: EFREN TAYLOR Report Released Date/Time: Jan 08, 2024 02:35 PM Reporting Lab: [address] [address] Performing Lab: [place] [address] [facility] [address] HEP B Surface Ab-HBsAB (L) REACTIVE m[IU]/mL Nonreactive HEP Bs AB-QUANT (L) 63.22 m[IU]/mL Jan 08, 2024 04:47 PM [facility] GLUCOSE,BLOOD-poct (STL) Specimen Type: BLOOD Comment: Test Performed by: [id number] Meter #: [id number] Ordering Provider: LIDIA HUYNH Report Released Date/Time: Jan 08, 2024 05:09 PM Reporting Lab: [address] [address] Performing Lab: [place] [address] [facility] [address] GLUCOSE,BLOOD- poct (STL) 95 mg/dL 72-99 Jan 08, 2024 11:26 AM [facility] GLUCOSE,BLOOD-poct (STL) Specimen Type: BLOOD Comment: Test Performed by: [id number] Meter #: [id number] Ordering Provider: LIDIA HUYNH Report Released Date/Time: Jan 08, 2024 11:37 AM Reporting Lab: [place] [address] [facility] [address] Performing Lab: [address] [address] GLUCOSE,BLOOD- poct (STL) 105 mg/dL H 72-99 Jan 08, 2024 07:01 AM [facility] RENAL PANEL Specimen Type: PLASMA Comment: No hemolysis noted. Ordering Provider: LIZETTE GRIFFIN Report Released Date/Time: Jan 07, 2024 11:24 PM Reporting Lab: [place] [address] [facility] [address] Performing Lab: [facility] [address] [facility] [address] CREATININE 8.50 mg/dL H 0.7-1.3 UREA NITROGEN 88.2 mg/dL H 9.0-25.0 GLUCOSE 70 mg/dL L 72-99 SODIUM 139 meq/L 136-145 POTASSIUM 5.4 meq/L H 3.5-5 CHLORIDE 110 meq/L H 98-107 CARBON DIOXIDE 19 meq/L L 22-31 CALCIUM 9.4 mg/dL 8.4-10.4 PHOSPHOROUS 5.1 mg/dL H 2.3-4.7 ALBUMIN 3.8 g/dL 3.4-5 EGFR (CKD-EPI 2020) 6.3 LL >60 Jan 08, 2024 06:37 AM [facility] GLUCOSE,BLOOD-poct (STL) Specimen Type: BLOOD Comment: Test Performed by: [id number] Meter #: [id number] Ordering Provider: LIDIA HUYNH Report Released Date/Time: Jan 08, 2024 06:48 AM Reporting Lab: [place] [id number] [facility] [address] Performing Lab: [address] [address] GLUCOSE,BLOOD- poct (STL) 86 mg/dL 72-99 Jan 07, 2024 11:58 PM [facility] RENAL PANEL Specimen Type: PLASMA Comment: No hemolysis noted. Ordering Provider: LIZETTE GRIFFIN Report Released Date/Time: Jan 07, 2024 11:38 PM Reporting Lab: [address] [address] Performing Lab: [address] [address] CREATININE 8.68 mg/dL H 0.7-1.3 UREA NITROGEN 92.6 mg/dL H 9.0-25.0 GLUCOSE 143 mg/dL H 72-99 SODIUM 138 meq/L 136-145 POTASSIUM 5.0 meq/L 3.5-5 CHLORIDE 111 meq/L H 98-107 CARBON DIOXIDE 17 meq/L L 22-31 CALCIUM 8.8 mg/dL 8.4-10.4 PHOSPHOROUS 3.8 mg/dL 2.3-4.7 ALBUMIN 3.8 g/dL 3.4-5 EGFR (CKD-EPI 2020) 6.1 LL >60 Jan 07, 2024 11:36 PM [facility] GLUCOSE,BLOOD-poct (STL) Specimen Type: BLOOD Comment: Test Performed by: [id number] Meter #: [id number] Ordering Provider: LIDIA MOSCOSO Report Released Date/Time: Jan 07, 2024 11:47 PM Reporting Lab: [facility] [address] [address] Performing Lab: [address] [address] GLUCOSE,BLOOD- poct (STL) 157 mg/dL H 72-99 Jan 07, 2024 11:30 PM [facility] MRSA SURVL NARES DNA Specimen Type: NARES [...] 07, 2024 11:24 PM Reporting Lab: [facility] [address] [address] Performing Lab: [facility] [address] [address] MRSA SURVL NARES DNA Negative Negative Jan 07, 2024 09:08 PM [facility] POTASSIUM Specimen Type: PLASMA Comment: No hemolysis noted. Ordering Provider: ANNA CALI Report Released Date/Time: Jan 07, 2024 08:38 PM Reporting Lab: [facility] [address] [address] Performing Lab: [place] [address] [place] [address] POTASSIUM 5.7 meq/L H 3.5-5 Jan 07, 2024 07:30 PM [facility] URINALYSIS (STL-PB) Specimen Type: URINE No comment entered. Ordering Provider: ANNA CALI Report Released Date/Time: Jan 07, 2024 05:18 PM Reporting Lab: [address] [address] Performing Lab: [address] [address] URINE COLOR Colorless Yellow U.BILIRUBIN Negative mg/dL [...] Jan 07, 2024 05:30 PM [facility] BRAIN NATRIURETIC PEPTIDE Specimen Type: PLASMA No comment entered. Ordering Provider: GRACIELA MANN Report Released Date/Time: Jan 07, 2024 04:59 PM Reporting Lab: [address] [address] Performing Lab: [address] [address] BRAIN NATRIURETIC PEPTIDE 59.0 pg/mL 0-100 Jan 07, 2024 05:30 PM [facility] COVID-19 DIAGNOSTIC (FLU/RSV)(STL) Specimen Type: NASOPHARYNX Comment: [...] Jan 07, 2024 04:59 PM Reporting Lab: [place] [address] Performing Lab: [place] [address] INFLUENZA A Negative Negative INFLUENZA B Negative Negative COVID-19 (STL-PB) Not Detected Not Detected RSV (Cepheid) NEGATIVE Negative Jan 07, 2024 05:30 PM [facility] COMPREHENSIVE METABOLIC PANEL Specimen Type: PLASMA Comment: Aspartate Transaminase result may show positive bias due to hemolysis. K result canceled due to hemolysis. Specimen moderately hemolyzed. K cancelled due to moderate hemolysis. Called to : Phillip Cee RN at: 1902 on: 01/07/2024 by: TENNILLE Ordering Provider: GRACIELA MANN Report Released Date/Time: Jan 07, 2024 04:59 PM Reporting Lab: [place] [id number] Performing Lab: [place] [phone] CREATININE 8.88 mg/dL H 0.7-1.3 UREA NITROGEN [...] Jan 07, 2024 05:30 PM [facility] CBC Specimen Type: BLOOD No comment entered. Ordering Provider: GRACIELA MANN Report Released Date/Time: Jan 07, 2024 04:59 PM Reporting Lab: [facility] [address] [id number] Performing Lab: [facility] [address] [id number] WBC 9.2 10*3/uL 3.6-11.2 RBC 3.81 10*6/uL [...] and tobacco- related health factors from the [place] facility where the Encounter took place. Current Smoking Status This section includes the most current smoking, or tobacco-related health factor, from the [place] facility where the Encounter took place. Date/Time Current Smoking Status Comment Ester shearer Jun 21, 2023 01:14 PM ORYX ADMIT TOBACCO SCREEN NO [facility] Tobacco Use History This section includes a history of the smoking, or tobacco-related health factors, that were collected on or before the date of the Encounter. The data comes from the [facility] facility where the Encounter took place. Date/Time Smoking Status/Tobacco Use Comment F acility Dec 12, 2022 04:00 PM ORYX ADMIT TOBACCO SCREEN NO [facility] Jun 25, 2022 03:24 PM VA-TOBACCO FORMER USER [facility] Jun 25, 2022 03:24 PM VA-TOBACCO QUIT 15 YRS OR MORE [facility] Dec 23, 2021 04:59 PM ORYX ADMIT TOBACCO SCREEN REFUSED [facility] May 24, 2020 11:27 PM ORYX ADMIT TOBACCO SCREEN NO [facility] Dec 12, 2019 10:24 AM VA-TOBACCO FORMER USER [facility] Dec 12, 2019 10:24 AM VA-TOBACCO QUIT 15 YRS OR MORE [facility] Aug 03, 2019 02:11 AM ORYX ADMIT TOBACCO SCREEN REFUSED [facility] Oct 12, 2018 01:14 AM QUIT TOBACCO >7 YEARS AGO [facility] Oct 11, 2018 03:33 PM ORYX ADMIT TOBACCO SCREEN NO [facility] Sep 07, 2018 09:13 PM ORYX ADMIT TOBACCO SCREEN NO [facility] Sep 07, 2018 07:52 PM QUIT TOBACCO >7 YEARS AGO [facility] Advance Directives: All historical and current Section Date Range: From patient's date of to the date document was created. This section includes ALL of a patient's completed or amended [place] Advance and Rescinded Directives. The entries below indicate that a directive exists for the patient, but an actual copy is not included with this document. The data comes from all [place] facilities. Date Advance Directives Provider Source Dec 17, 2022 ADVANCE DIRECTIVE BIJAN MERRITT [facility] Feb 09, 2020 ADVANCE DIRECTIVE DISCUSSION MELY LUCIANO [facility] Feb 02, 2018 ADVANCE DIRECTIVE BEAU ALTAMIRANO [facility] Nov 29, 2006 ADVANCE DIRECTIVE MARELY CHACON [facility] Radiology Reports: +/- 30 days of [...] the Encounter. The data comes from all [place] treatment facilities. Date/Time Radiology Report Provider Source Jan 07, 2024 08:01 PM CHEST PORTABLE: NAGI KATZ [id number] -[id number] M Exm Date: JAN 07, 2024@20:01 Req Phys: ANNA CALI Pat Loc: -EMERGENCY DEPT 3RD SHIFT (R Img Loc: -MAIN RADIOLOGY SUITE Service: Unknown (Case [id number] COMPLETE) CHEST PORTABLE (RAD Detailed) CPT:01755 Proc Modifiers : Portable Reason for Study: weakness, ESRD Clinical History: Report Status: Verified Date Reported: JAN 07, 2024 Date Verified: JAN 07, 2024 Heel Seat Pounder E-Sig: Report: CHEST PORTABLE HISTORY: weakness, ESRD COMPARISON: July 26, 2023 TECHNIQUE: One view of the chest was performed at the local [facility] facility. images were received by the [place] National Teleradiology Program (NTP) for interpretation. FINDINGS: Bilateral peribronchial thickening. Patchy bilateral lower lobe lung opacities. Mildly tortuous aorta. No acute bony abnormalities. Impression: 1. Bilateral peribronchial thickening. 2. Patchy bilateral lung opacities likely represent atelectasis. 3. No pneumothorax. READING PHYSICIAN: Madhu Patton M.D. -[phone] 01/07/2024 19:10 PDT [facility] National Teleradiology Program [phone] (For Medical Practitioner Use Only) Attention Patients / Veterans: If you have questions or concerns about these test results, please contact your ordering provider or primary care team. Primary Interpreting Staff: RADIOLOGY,OUTSIDE SERVICE, Staff Physician / RADIOLOGY,OUTSIDE SERVICE [facility] Encounter Notes: All associated encounter notes This section contains the clinical notes associated to the Encounter. Date/Time Encounter Note(s) Provider Source Jan 23, 2024 06:39 PM DIALYSIS NOTE: LOCAL TITLE: HEMODIALYSIS RUNSHEET APPOINTMENT [facility] STANDARD TITLE: DIALYSIS NOTE DATE OF NOTE: JAN 23, 2024@18:39:06 ENTRY DATE: JAN 23, 2024@18:39:06 AUTHOR: JEREMY COPE COSIGNER: URGENCY: routine STATUS: COMPLETED Dialysis [place] Appointment on Jan 23, 2024@13:08 Patient: NAGI KATZ Treatment Date: 23-Jan-2024 1308 Status: Discharged Latest Lab Result: URR: (, ) Kt/V: (, ) HgB: (, ) HCT: (, ) Diagnosis: End stage renal disease Patient Type: Inpatient Allergies: MORPHINE Resuscitate: [x] YES [ ] NO HD Summary Tables TREATMENT SUMMARY Treatment Start Time 23-Jan-2024 1308 Treatment End Time 23-Jan-2024 1640 Duration(ordered): 3:30 Duration(manually adjusted): 3:31 Weights (Kg) and Fluid Removed (L): Date Pre Weight Target Weight Post Weight Excess Weight IDW Goal Weight Target UF Achieved UF Current 101.90 0.00 101.10 101.90 -0.50 0.00 0.00 1.42 21-Jan-2024 102.80 0.00 102.40 102.80 0.00 0.00 500.00 09-Jan-2024 96.90 103.00 96.90 -6.10 -6.30 103.00 0.00 0.39 Blood Pressures (mmHg) & Fluid intake (mL) during treatment: Date Pre BP Post BP Lowest BP Highest BP IVF Given (mL) PO Fluid (mL) Current Sitting 173/78 Sitting 164/85 116/76 177/74 0.40 Standing 160/82 -- -- -- -- 21-Jan-2024 Sitting 126/69 Sitting 152/67 123/69 149/71 0.40 -- -- -- -- 09-Jan-2024 Sitting 153/75 Sitting 148/73 129/69 143/72 0.40 Sitting 154/75 -- -- -- -- Pulse and Temp: Date Pre Pulse Post Pulse Lowest Pulse Highest Pulse Pre Temp Post Temp Current Sitting 73 Sitting 61 58 71 97.4 97.5 Standing 71 -- -- -- -- 21-Jan-2024 Sitting 58 Sitting 60 57 61 97.7 97.8 -- -- -- -- 09-Jan-2024 Sitting 68 Sitting 63 62 84 98.0 98.2 Sitting 65 -- -- -- -- HD Times Date Prescribed Time Achieved Time Treatment Start Treatment End Current 3:30 3:31 1308 1640 21-Jan-2024 3:00 3:10 1259 1610 09-Jan-2024 2:30 2:27 0853 1120 Day's Order Related Problem: End stage renal disease Access Type: Fistula Access Site: VIRGIE Backup Access: Backup Access Site: Needle Gauge: 17 gauge 1 Freezing: [ ] YES [x] NO Machine Type: Clune Gambro Isolation: [ ] YES [x] NO Conventional HD Prosthesis(kg): Wheelchair(kg): Target Weight(kg): 0.00 Duration(h): 3:30 or Target UF(kg): 0.00 Frequency(x/wk): 3.00 Dialysate Temp(C): 37.00 Dialysis Type: [ ] daytime [ ] nocturnal Prescribed BVP(L): Dialysate Type: Saline Inf. (mL): MANAGER COMMERCIAL Blood Flow(ml/min): Hemodiafiltr. Volume(l): Hemodiafiltr. Fluid Type: Fractional Urea Distribution Space: 0.00 Prescribed KT/V: Process: Hemodialysis Procedure: Daily dialysis treatment Dialyzer: Nipro Elisio - 19H Max. reuses: Dialyzer 2: Tubing: K+(mmol/L): 2 Ca+(mmol/L): 3 Glucose(mmol/L): Mg+(mmol/L): Profiles: Initial values: Ramping: Dialysate Flow(ml/min): 500.00 Blood Flow(ml/min): 200 Bicarb(mmol/L): 40 Na+(mmol/L): 138 UFR(kg/hr : ml/kg/hr): BTM Function: Comments: Ok to use Tablo if necessary. Cannulate fistula per protocol. 17 gaugeneedles today and on Thursday01/16/24, may proceed to 16 gauge needleson01/19/24 if cannulation successful. Thank you Anticoagulant: HEPARIN NA (PORK) 1000UNT Prebolus: Hourly: Cutoff time(min): Units: UNIT Post Art Instill: Post Glen Instill: Heparin Option: Instructions: Day's Hemodialysis Order Changes: Time Parameter Old Value New Value Comments Verified Verified Time Verified By 1331 Needle Gauge 17 gauge 1 Updated Order NO = Access ======= Access Type: Fistula [...] Port (min): 10 Cannulated Glen: 1 Staff: ESAU RENDON Cannulated Art: 1 Staff: ESAU RENDON General: Today's Assessment: = Predialysis === Extra Treatment: [ ] YES [x] NO Received From: Staff On: JEREMY COEP Station: Room 04 Machine #: A - 03 Resp Caregiver: Treat Caregiver: Arrival Time: 23-Jan-2024 1236 Mode: walking By/With: unaccompanied Vital Signs Temp(C): 97.40 Resp: 18 Time: 1243 Sitting BP: 173/78 Sitting Pulse: 73 Time: BP: Pulse: Weights Measure Wt(kg): 101.90 Target Weight(kg): 0.00 Prosthesis Wt(kg): or Target UF(kg): 0.00 Wheelchair Wt(kg): Weight Change(kg): -0.50 Current Wt(kg): 101.90 Excess Weight(kg): 101.90 Total Fluid Admin(kg): 0.40 Expected UF Vol(kg): 102.30 Target TMP(mm/Hg): UFR(kg/hr : ml/kg/hr): 29.11 : ? Patient Condition: Nursing Assessment: 23-Jan-2024 1331 JEREMY COPE ULTRASOUND SPEC PRE-ASSESSMENT Time of assessment [ MENTAL STATUS: [X]Alert & Oriented x 3 Comment:[ [ ]Alert & Oriented x 2 [ ]Person [ ]Place [ ]Time/Date [ ]Situation Comment:[ [ ]Alert & Oriented x 1 [ ]Person [ ]Place [ ]Time/Date [ ]Situation Comment:[ [ ]Confused Comment:[ [ ]Other Comment:[ RESPIRATORY STATUS: [X]Clear bilaterally [ ]Clear right [ ]Clear left [...] [ ]Left LE [ ]Right LE Comment:[ Comments:[Pt arrived w/o complaints; MD order verified; Goal set for 1.0L as tolerated by Pt; Tx started w/o complications. Fluid Balance Topics covered with this education session include: Patient/Partner will be able to verbalize knowledge of: [ ] Residual kidney function and physiologic changes caused by kidney disease [ ] How to measure intake and output [X] Rational for adherence to fluid recommendations [ ] Goals for fluid management including sodium restriction and thirst management [ ] Signs and symptoms to report Learner Type: Delivery Method: [ ] Family [ ] Handout [X] Patient [X] Lecture [ ] Care Provider Patient and/or Caregiver Learning Evaluation: [ ] Excellent - Demonstrates Independently [ ] Very Good - Explains in Own Words [ ] Good - Verbalizes Understanding [ ] Fair - Demonstrates With Assistance [X] Follow Up Required - Requires Follow up [ ] Poor - Needs Assistance Comments: [ Acknowledged On: By: Pain: Acuity: 0 Type: Location: Measures: Heparin: Pump Start At: By: Hourly Rate: Bolus: Same Syringe: [ ] YES [x] NO Total in Syringe: Verified By: Time: Communication: Preferred Language: Bahraini Providier Proficient: [ ] YES [x] NO Dressmaker Helper Desired: [ ] YES [x] NO Offered: [ ] YES [x] NO = Dialysis Log DIALYSIS LOG Start Date/Time: 23-Jan-2024 Table 1: Dialysis Data Time BP MAP Pulse BFR BVP AP MANAGER COMMERCIAL TMP UFR TFR HEP Hep Com 1308 116/76 71 190 0.3 -70 130 30 0.41 : ? 0.00 0.0 1308 116/76 0.0 71 190 0.3 -70 130 30 0.41 : ? 0.00 0.0 1323 162/76 0.0 67 220 3.6 -120 160 25 0.41 : ? 0.10 0.0 1338 156/80 0.0 66 220 6.9 -120 160 25 0.41 : ? 0.20 0.0 1353 177/74 0.0 64 220 10.2 -120 170 30 0.41 : ? 0.30 0.0 1408 167/73 0.0 63 220 13.5 -130 160 30 0.41 : ? 0.42 0.0 1423 148/81 0.0 62 210 16.7 -140 170 25 0.41 : ? 0.52 0.0 1438 141/81 0.0 62 210 19.9 -140 160 30 0.41 : ? 0.62 0.0 1453 151/84 0.0 61 210 23.0 -160 160 30 0.41 : ? 0.72 0.0 1508 143/87 0.0 63 210 26.2 -150 160 25 0.41 : ? 0.82 0.0 1523 151/82 0.0 64 210 29.4 -140 160 30 0.41 : ? 0.92 0.0 1538 150/80 0.0 64 210 32.6 -130 170 30 0.41 : ? 1.02 0.0 1553 160/87 0.0 65 210 35.7 -140 160 25 0.41 : ? 1.12 0.0 1608 157/82 0.0 63 210 39.0 -140 160 30 0.41 : ? 1.25 0.0 1623 152/81 0.0 60 220 42.3 -130 170 0 0.41 : ? 1.35 0.0 1638 151/77 0.0 60 200 45.4 20 170 5 0.00 : ? 1.42 0.0 1640 164/78 58 0 45.4 40 100 -15 0.00 : ? 1.42 0.0 1828 0.0 Table 2: Dialysate Bath Time DFR ADV Temp K Ca Na HC03 1308 500.00 37.00 2.00 3.00 0.00 0.00 1308 500.00 37.00 2.00 3.00 0.00 0.00 1323 500.00 35.50 2.00 3.00 0.00 0.00 1338 500.00 35.40 2.00 3.00 0.00 0.00 1353 500.00 35.50 2.00 3.00 0.00 0.00 1408 500.00 35.50 2.00 3.00 0.00 0.00 1423 500.00 35.50 2.00 3.00 0.00 0.00 1438 500.00 35.50 2.00 3.00 0.00 0.00 1453 500.00 35.40 2.00 3.00 0.00 0.00 1508 500.00 35.50 2.00 3.00 0.00 0.00 1523 500.00 35.50 2.00 3.00 0.00 0.00 1538 500.00 35.40 2.00 3.00 0.00 0.00 1553 500.00 35.40 2.00 3.00 0.00 0.00 1608 500.00 35.40 2.00 3.00 0.00 0.00 1623 500.00 35.50 2.00 3.00 0.00 0.00 1638 500.00 35.50 2.00 3.00 0.00 0.00 1640 500.00 35.50 2.00 3.00 0.00 0.00 1828 Table 3: Patient Assessment Acknowledge Time Author Access Visible Patient Status 23-Jan-2024 1324 GREEN,JEREMY A [x] YES [ ] NO Tx STARTED 23-Jan-2024 1324 GREEN,JEREMY A [x] YES [ ] NO Pt w/o complaints; Reclined, Resting & Stable. 23-Jan-2024 1429 GREEN,JEREMY A [x] YES [ ] NO Pt reclined & watching TV. 23-Jan-2024 1430 GREEN,JEREMY A [x] YES [ ] NO Pt resting 23-Jan-2024 1430 GREEN,JEREMY A [x] YES [ ] NO Pt Stable 23-Jan-2024 1430 GREEN,JEREMY A [x] YES [ ] NO Pt reports no complaints; Stable 23-Jan-2024 1429 GREEN,JEREMY A [x] YES [ ] NO Pt reclined & resting w/eyes closed. 23-Jan-2024 1536 GREEN,JEREMY A [x] YES [ ] NO NAD; cont' to monitor. 23-Jan-2024 1536 GREEN,JEREMY A [x] YES [ ] NO Pt Stable. 23-Jan-2024 1536 GREEN,JEREMY A [x] YES [ ] NO Pt watching TV. 23-Jan-2024 1536 GREEN,JEREMY A [x] YES [ ] NO Pt reclined & relaxed. 23-Jan-2024 1754 GREEN,JEREMY A [x] YES [ ] NO Pt resting & reclined. 23-Jan-2024 1722 GREEN,JEREMY A [x] YES [ ] NO Pt Stable 23-Jan-2024 1721 GREEN,JEREMY A [x] YES [ ] NO Pt watching TV 23-Jan-2024 1721 GREEN,JEREMY A [x] YES [ ] NO Pt Alert 23-Jan-2024 1721 GREEN,JEREMY A [x] YES [ ] NO Pt reports no complaints; Stable. 23-Jan-2024 1721 GREEN,JEREMY A [ ] YES [x] NO Tx Complete 23-Jan-2024 JEREMY COPE [ ] YES [x] NO = Medication Log Medication Log Start Date/Time: 23-Jan-2024 Medication: Time: 1827 Nurse: JEREMY COPE 2nd healthcare account manager: Medication/Blood: LIDOCAINE 2.5/PRILOCAINE 2.5% CREAM Dosage/Units: Not given Route: Unused Amount: 0.00 IV Flush(mL): Admin Comments: Reason Not Given: = Events Log === Time Resolved Complication Comments Author Brigitte [place]yer Notified Burkek[place] george Nurse = Postdialysis == Clotted: [ ] YES [x] NO Infiltrated: [ ] YES [x] NO Extra Treatment: [ ] YES [x] NO Procedure: Daily dialysis treatment Stop Date/Time: 23-Jan-2024 1640 Dialysis Time(hrs): 3:31 Staff Off: JEREMY COPE Effective Time(hrs): Resp Caregiver: Departure Time: 1710 By/With: unaccompanied Mode: walking Visit Disposition: Discharged Home (private dwelling, not an institution, no support services) Patient Sent To: Pain Acuity: 0 Type: Location Measures Measures Measures Weights Measured Wt.(kg): 101.10 Prosthesis Wt.(kg): Wheelchair Wt(kg): Post Dialysis Wt(kg): 101.10 Target Weight(kg): 0.00 Target UF(kg): 0.00 Removed Wt(kg): 0.80 Fluid Removed(kg): 1.42 Effective UFR (kg/hr:ml/kg/hr): 0.23 : 2.2 Dialysate Used(L): 106.00 Patient Status Temp(C): 97.50 Resp: 17 Sitting BP: 164/85 Sitting Pulse: 61 Standing BP: 160/82 Standing Pulse: 71 Lowest BP: 116/76 BV Processed: Heparin Total Ordered: 0.00 Total Infused: Left in Syringe: Verified At: By: 2nd healthcare account manager: By: Fluid Intake Total Ingested(kg): Total HDF Administered(kg): Avg HDF(kg/hr): Hematocrit(%): Hemoglobin(mg/dL): KT/V: Relative Blood Volume(%): Final Effective Ionic Dialysance: Dialyzer Post Dial Rating: Not Clear-Most Acid Disinfect: 1645 Chemical Cycle Start At: 1722 Heat Cycle Start At: Patient Condition: Nursing Assessment: 23-Jan-2024 JEREMY COPE ULTRASOUND SPEC POST-ASSESSMENT Time of assessment [ MENTAL STATUS: [X]Alert & Oriented x 3 Comment: [ ]Alert & Oriented x 2 [ ]Person [ ]Place [ ]Time/Date [ ]Situation Comment: [ ]Alert & Oriented x 1 [ ]Person [ ]Place [ ]Time/Date [ ]Situation Comment:[ [ ]Confused Comment:[ [ ]Other Comment:[ RESPIRATORY STATUS: [X]Clear bilaterally [ ]Clear right [ ]Clear left [...] [ ]Left LE [ ]Right LE Comment:[ Comments:[Pt tolerated Tx well w/o adverse symptoms; No prolonged bleeding; Access CDI. Acknowledged On: Acknowledged By: = Preparation === Station: Room 04 Machine #: A - 03 MACHINE DISINFECTION Acid Cycle: 23-Jan-2024 Heat Cycle: 20-Jan-2024 Chemical Cycle: 23-Jan-2024 Disinfect Clear Status: MACHINE CHECKS Original All Steps Completed: [x] YES [ ] NO Alarm Test Complete: 23-Jan-2024 Alarms Audible: 23-Jan-2024 1224 Checked prescription: 23-Jan-2024 1152 Checked conductivity: 23-Jan-2024 1324 Double checked 23-Jan-2024 1300 Patient identified: 23-Jan-2024 1236 prescription: Time Out: 23-Jan-2024 1305 Conductivity: 13.80 Calcium: 3 Dialysate Temperature: 37.00 Potassium: 2 Bicarb: 40 Reading confirmation: 23-Jan-2024 Conductivity: 13.80 pH: 7.00 Replacement All Steps Completed: [x] YES [ ] NO Alarm Test Complete: 23-Jan-2024 Alarms Audible: 23-Jan-2024 1224 Checked prescription: 23-Jan-2024 1152 Checked conductivity: 23-Jan-2024 1324 Double checked 23-Jan-2024 1300 Patient identified: 23-Jan-2024 1236 prescription: Time Out: 23-Jan-2024 1305 Conductivity: 13.80 K+: 2 pH: 7.00 Ca+: 3 Dialysate Temp (C): 37.00 = Material ====== MATERIAL / DIALYZER REUSE Start Machine (#): A - 03 Time Failed: Replacement Machine: Replaced time: Reason: Dialyzer Label: Nipro Elisio - 19H Reprocessed #: Dialyzer Lot: Pre-dialysis Dialyzer Rating: Check 1: 23-Jan-2024 115JEREMY ARCHER Check 2: 23-Jan-2024 1155 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 Location: [id number]/ JEREMY COPE REGISTERED NURSE Signed: 01/23/2024 18:39 JEREMY COPE [facility]
--- OUTSIDE RECORDS SUMMARY | 2024-12-05 00:23 | XMS_ITS | Encounter Summary ---
Author Name [facility] [place] [facility] [facility] [place] Address [address] [place] [address] Care Team Providers Care Frame Feeder Name Role Phone ERIKA DEE Primary Care [...] PART A Jul 12, 2019 PART A [id number] PRASANNA KATZ PATIENT MEDICARE (WNR) MEDICARE (M) PART A Jul 12, 2019 PART A [id number] [phone] PRASANNA KATZ PATIENT Selected Encounter This section includes the information on record at [place] for the Encounter. Date/Time Encounter Type Encounter Description Reason Provider Source Feb 04, 2024 12:15 PM [facility] ICD-10-CM N18.6 End stage renal disease JESUSITA ARNDT Encounter Template Text not used by [place] Assessments - Encounter Diagnoses This section includes the primary and secondary diagnoses documented for the Encounter. Date/Time Primary/Secondary Diagnosis Diagnosis Name Provider Source Feb 04, 2024 04:59 PM PRIMARY End stage renal disease [facility] Plan of Treatment: Future Appointments (+ 6 months) and Future Tests (+/- 45 days) The Plan of Treatment section includes future care activities for the patient from all [place] treatmentfacilities. This section includes future appointments and future orders which are active, pending or scheduled. Future Appointments This section includes appointments that were scheduled to occur 6 months from the date of the Encounter, up to a maximum of 20 appointments. The data comes from all [place] treatment facilities. Appointment Date/Time Appointment Type Appointme nt Facility Name Feb 06, 2024 12:30 PM AMBULATORY - MEDICINE [facility] Feb 09, 2024 12:30 PM AMBULATORY - MEDICINE [facility] February 11, 2024 12:30 PM AMBULATORY - MEDICINE [facility] February 13, 2024 12:30 PM AMBULATORY - MEDICINE [facility] February 15, 2024 08:00 AM AMBULATORY - NONE [facility] February 15, 2024 08:30 AM AMBULATORY - MEDICINE [facility] Apr 05, 2024 09:30 AM AMBULATORY - MEDICINE [facility] Apr 27, 2024 07:30 AM AMBULATORY - SURGERY [facility] May 02, 2024 08:00 AM AMBULATORY - NONE [facility] May 02, 2024 08:30 AM AMBULATORY - MEDICINE [facility] May 16, 2024 02:00 PM AMBULATORY - MEDICINE . [facility] Jul 12, 2024 08:00 AM AMBULATORY - NONE [facility] Jul 12, 2024 08:30 AM AMBULATORY - MEDICINE [facility] Lab Results: +/- 30 days of [...] Range Comment Feb 09, 2024 12:40 PM [facility] HEP B CORE AB TOTAL. (STL) Specimen Type: SERUM No comment entered. Ordering Provider: KYLER PURCELL Report Released Date/Time: Feb 09, 2024 10:43 AM Reporting Lab: [address] [address] Performing Lab: [place] [phone] HEP B CORE AB TOTAL. (STL) Nonreactive Nonreactive Feb 09, 2024 12:40 PM [facility] HEP HB S Ag ([place]) (STL) Specimen Type: SERUM No comment entered. Ordering Provider: KYLER PURCELL Report Released Date/Time: Feb 09, 2024 10:43 AM Reporting Lab: [address] [address] Performing Lab: [address] [address] HEP HB S Ag ([place]) (STL) Nonreactive Nonreactive Feb 09, 2024 12:40 PM [facility] HEPATITIS B SURFACE AB PNL Specimen Type: SERUM No comment entered. Ordering Provider: KYLER PURCELL Report Released Date/Time: Feb 09, 2024 10:43 AM Reporting Lab: [address] [address] Performing Lab: [address] [address] HEP B Surface Ab-HBsAB (L) REACTIVE m[IU]/mL Nonreactive HEP Bs AB-QUANT (L) 79.36 m[IU]/mL Feb 09, 2024 12:40 PM [facility] RENAL PANEL Specimen Type: PLASMA Comment: No hemolysis noted. Ordering Provider: KYLER PURCELL Report Released Date/Time: Feb 04, 2024 03:20 PM Reporting Lab: [place] [address] Performing Lab: [facility] [address] [facility] [place] [address] CREATININE 7.69 mg/dL H 0.7-1.3 UREA NITROGEN 52.2 mg/dL H 9.0-25.0 GLUCOSE 147 mg/dL H 72-99 SODIUM 142 meq/L 136-145 POTASSIUM 4.1 meq/L 3.5-5 CHLORIDE 107 meq/L 98-107 CARBON DIOXIDE 22 meq/L 22-31 CALCIUM 10.2 mg/dL 8.4-10.4 PHOSPHOROUS 3.7 mg/dL 2.3-4.7 ALBUMIN 3.7 g/dL 3.4-5 EGFR (CKD-EPI 2020) 7.1 LL >60 Feb 09, 2024 12:40 PM [facility] CBC Specimen Type: BLOOD No comment entered. Ordering Provider: KYLER PURCELL Report Released Date/Time: Feb 04, 2024 03:20 PM Reporting Lab: [address] [address] Performing Lab: [address] [address] WBC 9.7 10*3/uL 3.6-11.2 RBC 3.09 10*6/uL [...] 10*3/uL 0.00-0.20 Feb 04, 2024 05:00 PM [facility] URR-POST PANEL (STL) Specimen Type: PLASMA No comment entered. Ordering Provider: KYLER PURCELL Report Released Date/Time: Feb 04, 2024 01:42 PM Reporting Lab: [address] [address] Performing Lab: [address] [address] BUN-POST DIALYSIS 16.2 mg/dL 9.0-25.0 URR (STL) 70.4 67.0-100.0 Feb 04, 2024 12:45 PM [facility] RENAL PANEL Specimen Type: PLASMA Comment: No hemolysis noted. Ordering Provider: KYLER PURCELL Report Released Date/Time: Feb 04, 2024 01:42 PM Reporting Lab: [address] [address] Performing Lab: [address] [address] CREATININE 6.97 mg/dL H 0.7-1.3 UREA NITROGEN 54.7 mg/dL H 9.0-25.0 GLUCOSE 134 mg/dL H 72-99 SODIUM 142 meq/L 136-145 POTASSIUM 4.0 meq/L 3.5-5 CHLORIDE 105 meq/L 98-107 CARBON DIOXIDE 24 meq/L 22-31 CALCIUM 9.7 mg/dL 8.4-10.4 PHOSPHOROUS 4.8 mg/dL H 2.3-4.7 ALBUMIN 3.9 g/dL 3.4-5 EGFR (CKD-EPI 2020) 7.9 LL >60 Feb 02, 2024 04:30 PM [facility] URR-POST PANEL (STL) Specimen Type: PLASMA No comment entered. Ordering Provider: KYLER PURCELL Report Released Date/Time: Feb 02, 2024 03:39 PM Reporting Lab: [place] [address] [facility] [place] [place] [address] Performing Lab: [facility] [address] [place] [address] BUN-POST DIALYSIS 22.9 mg/dL 9.0-25.0 URR (STL) 60.9 L 67.0-100.0 Feb 02, 2024 11:50 AM [facility] RENAL PANEL Specimen Type: PLASMA Comment: No hemolysis noted. Ordering Provider: KYLER PURCELL Report Released Date/Time: Feb 02, 2024 07:35 AM Reporting Lab: [address] [address] Performing Lab: [address] [address] CREATININE 8.34 mg/dL H 0.7-1.3 UREA NITROGEN 58.6 mg/dL H 9.0-25.0 GLUCOSE 169 mg/dL H 72-99 SODIUM 142 meq/L 136-145 POTASSIUM 4.6 meq/L 3.5-5 CHLORIDE 111 meq/L H 98-107 CARBON DIOXIDE 20 meq/L L 22-31 CALCIUM 9.2 mg/dL 8.4-10.4 PHOSPHOROUS 3.6 mg/dL 2.3-4.7 ALBUMIN 3.7 g/dL 3.4-5 EGFR (CKD-EPI 2020) 6.4 LL >60 Feb 01, 2024 11:00 PM [facility] 24H UR CHEM PANEL (STL) Specimen Type: 24-HOUR URINE No comment entered. Ordering Provider: KYLER PURCELL Report Released Date/Time: Jan 28, 2024 04:55 PM Reporting Lab: [address] [address] Performing Lab: [address] [address] VOLUME 3289 mL SODIUM 24-HOUR URINE 226.941 H 40-220 POTASSIUM 24-HOUR URINE 35.8501 25-125 CHLORIDE 24-HOUR URINE 171.028 110-250 PROTEIN 24-HOUR URINE 1986.556 H 0-299.9 CREATININE 24-HOUR URINE 2078.549 354-3666 Jan 28, 2024 05:29 PM [facility] CBC Specimen Type: BLOOD No comment entered. Ordering Provider: KYLER PURCELL Report Released Date/Time: Jan 28, 2024 05:07 PM Reporting Lab: [address] [address] Performing Lab: [address] [address] WBC 8.9 10*3/uL 3.6-11.2 RBC 2.96 10*6/uL [...] 10*3/uL 0.00-0.20 Jan 26, 2024 01:00 PM [facility] PTH, INTACT (STL) Specimen Type: SERUM No comment entered. Ordering Provider: KYLER PURCELL Report Released Date/Time: Jan 21, 2024 03:14 PM Reporting Lab: [address] [address] Performing Lab: [address] [address] PTH, INTACT (STL) 141.40 pg/mL H 8.7-77.7 Jan 26, 2024 01:00 PM [facility] IRON/TIBC PROFILE Specimen Type: SERUM No comment entered. Ordering Provider: KYLER PURCELL Report Released Date/Time: Jan 21, 2024 03:14 PM Reporting Lab: [address] [address] Performing Lab: [address] [address] TIBC 225 ug/dL L 250-450 TRANSFERRIN 180 mg/dL 163-344 IRON SATURATION 23 20-50 IRON 52 ug/dL L 65-175 Jan 26, 2024 01:00 PM [facility] FERRITIN Specimen Type: SERUM No comment entered. Ordering Provider: KYLER PURCELL Report Released Date/Time: Jan 21, 2024 03:14 PM Reporting Lab: [address] [address] Performing Lab: [address] [address] FERRITIN 118.78 ng/mL 22-275 Jan 26, 2024 01:00 PM [facility] RENAL PANEL Specimen Type: PLASMA Comment: No hemolysis noted. Ordering Provider: KLYER PURCELL Report Released Date/Time: Jan 21, 2024 03:14 PM Reporting Lab: [address] [address] Performing Lab: [address] [address] CREATININE 8.25 mg/dL H 0.7-1.3 UREA NITROGEN 63.1 mg/dL H 9.0-25.0 GLUCOSE 157 mg/dL H 72-99 SODIUM 137 meq/L 136-145 POTASSIUM 4.2 meq/L 3.5-5 CHLORIDE 100 meq/L 98-107 CARBON DIOXIDE 26 meq/L 22-31 CALCIUM 9.6 mg/dL 8.4-10.4 PHOSPHOROUS 4.9 mg/dL H 2.3-4.7 ALBUMIN 3.7 g/dL 3.4-5 EGFR (CKD-EPI 2020) 6.5 LL >60 Jan 26, 2024 01:00 PM [facility] CBC Specimen Type: BLOOD No comment entered. Ordering Provider: KYLER PURCELL Report Released Date/Time: Jan 21, 2024 03:14 PM Reporting Lab: [facility] [address] [facility] [address] Performing Lab: [facility] [address] [facility] [address] WBC 7.8 10*3/uL 3.6-11.2 RBC 2.95 10*6/uL [...] 10*3/uL 0.00-0.20 Jan 21, 2024 12:55 PM [facility] PT/INR NEW (STL-MA) Specimen Type: PLASMA No comment entered. Ordering Provider: KYLER PURCELL Report Released Date/Time: Jan 21, 2024 12:43 PM Reporting Lab: [place] [address] [facility] [address] Performing Lab: [place] [address] [facility] [address] PROTIME 15.9 s H 9.4-12.5 INR VALUE 1.4 {INR} Jan 21, 2024 12:55 PM [facility] RENAL PANEL Specimen Type: PLASMA Comment: No hemolysis noted. Ordering Provider: KYLER PURCELL Report Released Date/Time: Jan 21, 2024 12:41 PM Reporting Lab: [address] [address] Performing Lab: [address] [address] CREATININE 8.11 mg/dL H 0.7-1.3 UREA NITROGEN 82.6 mg/dL H 9.0-25.0 GLUCOSE 114 mg/dL H 72-99 SODIUM 139 meq/L 136-145 POTASSIUM 5.1 meq/L H 3.5-5 CHLORIDE 109 meq/L H 98-107 CARBON DIOXIDE 19 meq/L L 22-31 CALCIUM 9.3 mg/dL 8.4-10.4 PHOSPHOROUS 4.1 mg/dL 2.3-4.7 ALBUMIN 3.8 g/dL 3.4-5 EGFR (CKD-EPI 2020) 6.6 LL >60 Jan 14, 2024 11:55 AM [facility] RENAL PANEL Specimen Type: PLASMA Comment: No hemolysis noted. Ordering Provider: KYLER PURCELL Report Released Date/Time: Jan 13, 2024 07:58 AM Reporting Lab: [address] [address] Performing Lab: [address] [address] CREATININE 8.05 mg/dL H 0.7-1.3 UREA NITROGEN 70.7 mg/dL H 9.0-25.0 GLUCOSE 155 mg/dL H 72-99 SODIUM 140 meq/L 136-145 POTASSIUM 5.1 meq/L H 3.5-5 CHLORIDE 107 meq/L 98-107 CARBON DIOXIDE 21 meq/L L 22-31 CALCIUM 9.6 mg/dL 8.4-10.4 PHOSPHOROUS 4.8 mg/dL H 2.3-4.7 ALBUMIN 4.1 g/dL 3.4-5 EGFR (CKD-EPI 2020) 6.7 LL >60 Jan 11, 2024 11:36 AM [facility] GLUCOSE,BLOOD-poct (STL) Specimen Type: BLOOD Comment: Test Performed by: [id number] Meter #: [id number] Ordering Provider: LIDIA HUYNH Report Released Date/Time: Jan 11, 2024 11:50 AM Reporting Lab: [address] [address] Performing Lab: [address] [address] GLUCOSE,BLOOD- poct (STL) 106 mg/dL H 72-Jan 11, 2024 11:07 AM [facility] GLUCOSE,BLOOD-poct (STL) Specimen Type: BLOOD Comment: Test Performed by: [id number] Meter #: [id number] Ordering Provider: LIDIA HUYNH Report Released Date/Time: Jan 11, 2024 11:18 AM Reporting Lab: [address] [address] Performing Lab: [address] [address] GLUCOSE,BLOOD- poct (STL) 109 mg/dL H -Jan 11, 2024 05:12 AM [facility] GLUCOSE,BLOOD-poct (STL) Specimen Type: BLOOD Comment: Test Performed by: [id number] Meter #: [id number] Ordering Provider: LIDIA HUYNH Report Released Date/Time: Jan 11, 2024 05:25 AM Reporting Lab: [address] [address] Performing Lab: [address] [address] GLUCOSE,BLOOD- poct (STL) 88 mg/dL 72-Jan 10, 2024 08:19 PM [facility] GLUCOSE,BLOOD-poct (STL) Specimen Type: BLOOD Comment: Test Performed by: [id number] Meter #: [id number] Ordering Provider: LIDIA HUYNH Report Released Date/Time: Jan 10, 2024 08:31 PM Reporting Lab: [place] [address] [facility] [address] Performing Lab: [place] [address] [facility] [address] GLUCOSE,BLOOD- poct (STL) 153 mg/dL H 72-99 Jan 10, 2024 04:15 PM [facility] GLUCOSE,BLOOD-poct (STL) Specimen Type: BLOOD Comment: Test Performed by: [id number] Meter #: [id number] Ordering Provider: LIDIA HUYNH Report Released Date/Time: Jan 10, 2024 05:05 PM Reporting Lab: [place] [address] [facility] [address] Performing Lab: [place] [address] [facility] [address] GLUCOSE,BLOOD- poct (STL) 84 mg/dL 72-99 Jan 10, 2024 11:31 AM [facility] GLUCOSE,BLOOD-poct (STL) Specimen Type: BLOOD Comment: Test Performed by: [id number] Meter #: [id number] Ordering Provider: LIDIA HUYNH Report Released Date/Time: Jan 10, 2024 12:03 PM Reporting Lab: [place] [address] [facility] [address] Performing Lab: [place] [address] [facility] [address] GLUCOSE,BLOOD- poct (STL) 99 mg/dL 72-99 Jan 10, 2024 04:45 AM [facility] GLUCOSE,BLOOD-poct (STL) Specimen Type: BLOOD Comment: Test Performed by: [id number] Meter #: [id number] Ordering Provider: LIDIA HUYNH Report Released Date/Time: Jan 10, 2024 05:29 AM Reporting Lab: [place] [address] [facility] [address] Performing Lab: [place] [address] [facility] [address] GLUCOSE,BLOOD- poct (STL) 109 mg/dL H 72-Jan 09, 2024 08:08 PM [facility] GLUCOSE,BLOOD-poct (STL) Specimen Type: BLOOD Comment: Test Performed by: [id number] Meter #: [id number] Ordering Provider: LIDIA HUYNH Report Released Date/Time: Jan 09, 2024 08:28 PM Reporting Lab: [address] [address] Performing Lab: [address] [address] GLUCOSE,BLOOD- poct (STL) 110 mg/dL H -Jan 09, 2024 04:19 PM [facility] GLUCOSE,BLOOD-poct (STL) Specimen Type: BLOOD Comment: Test Performed by: [id number] Meter #: [id number] Ordering Provider: LIDIA HUYNH Report Released Date/Time: Jan 09, 2024 04:34 PM Reporting Lab: [place] [address] [facility] [address] Performing Lab: [address] [address] GLUCOSE,BLOOD- poct (STL) 119 mg/dL H -Jan 09, 2024 02:30 PM [facility] MAGNESIUM Specimen Type: PLASMA Comment: No hemolysis noted. Ordering Provider: TATI ZAVALA Report Released Date/Time: Jan 09, 2024 07:51 AM Reporting Lab: [place] [address] [facility] [address] Performing Lab: [address] [address] MAGNESIUM 1.6 mg/dL 1.6-2.6 Jan 09, 2024 02:30 PM [facility] RENAL PANEL Specimen Type: PLASMA Comment: No hemolysis noted. Ordering Provider: TATI ZAVALA Report Released Date/Time: Jan 09, 2024 07:51 AM Reporting Lab: [place] [address] [facility] [address] Performing Lab: [address] [address] CREATININE 5.13 mg/dL H 0.7-1.3 UREA NITROGEN 46.2 mg/dL H 9.0-25.0 GLUCOSE 177 mg/dL H 72-99 SODIUM 136 meq/L 136-145 POTASSIUM 4.0 meq/L 3.5-5 CHLORIDE 101 meq/L 98-107 CARBON DIOXIDE 23 meq/L 22-31 CALCIUM 8.6 mg/dL 8.4-10.4 PHOSPHOROUS 2.7 mg/dL 2.3-4.7 ALBUMIN 3.6 g/dL 3.4-5 EGFR (CKD-EPI 2020) 11.5 LL >60 Jan 09, 2024 12:27 PM [facility] GLUCOSE,BLOOD-poct (STL) Specimen Type: BLOOD Comment: Test Performed by: [id number] Meter #: [id number] Ordering Provider: LIDIA HUYNH Report Released Date/Time: Jan 09, 2024 12:38 PM Reporting Lab: [address] [address] Performing Lab: [address] [address] GLUCOSE,BLOOD- poct (STL) 98 mg/dL 72-99 Jan 09, 2024 07:15 AM [facility] GLUCOSE,BLOOD-poct (STL) Specimen Type: BLOOD Comment: Test Performed by: [id number] Meter #: [id number] Ordering Provider: LIDIA HUYNH Report Released Date/Time: Jan 09, 2024 07:58 AM Reporting Lab: [address] [address] Performing Lab: [address] [address] GLUCOSE,BLOOD- poct (STL) 86 mg/dL 72-99 Jan 08, 2024 09:04 PM [facility] GLUCOSE,BLOOD-poct (STL) Specimen Type: BLOOD Comment: Test Performed by: [id number] Meter #: [id number] Ordering Provider: LIDIA HUYNH Report Released Date/Time: Jan 08, 2024 09:47 PM Reporting Lab: [address] [address] Performing Lab: [address] [address] GLUCOSE,BLOOD- poct (STL) 90 mg/dL 72-99 Jan 08, 2024 09:01 PM [facility] HEP B CORE AB TOTAL. (STL) Specimen Type: SERUM No comment entered. Ordering Provider: EFREN TAYLOR Report Released Date/Time: Jan 08, 2024 02:35 PM Reporting Lab: [address] [address] Performing Lab: [address] [address] HEP B CORE AB TOTAL. (STL) Nonreactive Nonreactive Jan 08, 2024 09:01 PM [facility] HEP HB S Ag ([place]) (STL) Specimen Type: SERUM No comment entered. Ordering Provider: EFREN TAYLOR Report Released Date/Time: Jan 08, 2024 02:35 PM Reporting Lab: [address] [address] Performing Lab: [address] [address] HEP HB S Ag ([place]) (STL) Nonreactive Nonreactive Jan 08, 2024 09:01 PM [facility] HEPATITIS B SURFACE AB PNL Specimen Type: SERUM No comment entered. Ordering Provider: EFREN TAYLOR Report Released Date/Time: Jan 08, 2024 02:35 PM Reporting Lab: [address] [address] Performing Lab: [address] [address] HEP B Surface Ab-HBsAB (STL) REACTIVE m[IU]/mL Nonreactive HEP Bs AB-QUANT (STL) 63.22 m[IU]/mL Jan 08, 2024 04:47 PM [facility] GLUCOSE,BLOOD-poct (STL) Specimen Type: BLOOD Comment: Test Performed by: [id number] Meter #: [id number] Ordering Provider: LIDIA HUYNH Report Released Date/Time: Jan 08, 2024 05:09 PM Reporting Lab: [address] [address] Performing Lab: [address] [address] GLUCOSE,BLOOD- poct (STL) 95 mg/dL 72-99 Jan 08, 2024 11:26 AM [facility] GLUCOSE,BLOOD-poct (STL) Specimen Type: BLOOD Comment: Test Performed by: [id number] Meter #: [id number] Ordering Provider: LIDIA HUYNH Report Released Date/Time: Jan 08, 2024 11:37 AM Reporting Lab: [address] [address] Performing Lab: [address] [address] GLUCOSE,BLOOD- poct (STL) 105 mg/dL H 72-99 Jan 08, 2024 07:01 AM [facility] RENAL PANEL Specimen Type: PLASMA Comment: No hemolysis noted. Ordering Provider: LIZETTE GRIFFIN Report Released Date/Time: Jan 07, 2024 11:24 PM Reporting Lab: [place] [address] [facility] [address] Performing Lab: [address] [address] CREATININE 8.50 mg/dL H 0.7-1.3 UREA NITROGEN 88.2 mg/dL H 9.0-25.0 GLUCOSE 70 mg/dL L 72-99 SODIUM 139 meq/L 136-145 POTASSIUM 5.4 meq/L H 3.5-5 CHLORIDE 110 meq/L H 98-107 CARBON DIOXIDE 19 meq/L L 22-31 CALCIUM 9.4 mg/dL 8.4-10.4 PHOSPHOROUS 5.1 mg/dL H 2.3-4.7 ALBUMIN 3.8 g/dL 3.4-5 EGFR (CKD-EPI 2020) 6.3 LL >60 Jan 08, 2024 06:37 AM [facility] GLUCOSE,BLOOD-poct (STL) Specimen Type: BLOOD Comment: Test Performed by: [id number] Meter #: [id number] Ordering Provider: LIDIA HUYNH Report Released Date/Time: Jan 08, 2024 06:48 AM Reporting Lab: [address] [address] Performing Lab: [address] [address] GLUCOSE,BLOOD- poct (STL) 86 mg/dL 72-99 Jan 07, 2024 11:58 PM [facility] RENAL PANEL Specimen Type: PLASMA Comment: No hemolysis noted. Ordering Provider: LIZETTE GRIFFIN Report Released Date/Time: Jan 07, 2024 11:38 PM Reporting Lab: [address] [address] Performing Lab: [address] [address] CREATININE 8.68 mg/dL H 0.7-1.3 UREA NITROGEN 92.6 mg/dL H 9.0-25.0 GLUCOSE 143 mg/dL H 72-99 SODIUM 138 meq/L 136-145 POTASSIUM 5.0 meq/L 3.5-5 CHLORIDE 111 meq/L H 98-107 CARBON DIOXIDE 17 meq/L L 22-31 CALCIUM 8.8 mg/dL 8.4-10.4 PHOSPHOROUS 3.8 mg/dL 2.3-4.7 ALBUMIN 3.8 g/dL 3.4-5 EGFR (CKD-EPI 2020) 6.1 LL >60 Jan 07, 2024 11:36 PM [facility] GLUCOSE,BLOOD-poct (STL) Specimen Type: BLOOD Comment: Test Performed by: [id number] Meter #: [id number] Ordering Provider: LIDIA MOSCOSO Report Released Date/Time: Jan 07, 2024 11:47 PM Reporting Lab: [facility] [address] [place] [address] Performing Lab: [facility] [address] [place] [address] GLUCOSE,BLOOD- poct (STL) 157 mg/dL H 72-99 Jan 07, 2024 11:30 PM [facility] MRSA SURVL NARES DNA Specimen Type: [...] Jan 07, 2024 11:24 PM Reporting Lab: [address] [address] Performing Lab: [address] [address] MRSA SURVL NARES DNA Negative Negative Jan 07, 2024 09:08 PM [facility] POTASSIUM Specimen Type: PLASMA Comment: No hemolysis noted. Ordering Provider: ANNA CALI Report Released Date/Time: Jan 07, 2024 08:38 PM Reporting Lab: [facility] [address] [place] [address] Performing Lab: [address] [address] POTASSIUM 5.7 meq/L H 3.5-5 Jan 07, 2024 07:30 PM [facility] URINALYSIS (STL-PB) Specimen Type: URINE No comment entered. Ordering Provider: ANNA CALI Report Released Date/Time: Jan 07, 2024 05:18 PM Reporting Lab: [facility] [place] [address] Performing Lab: [place] [address] URINE COLOR Colorless Yellow U.BILIRUBIN Negative mg/dL [...] 1.015 1.005-1.029 Jan 07, 2024 05:30 PM [facility] BRAIN NATRIURETIC PEPTIDE Specimen Type: PLASMA No comment entered. Ordering Provider: GRACIELA MANN Report Released Date/Time: Jan 07, 2024 04:59 PM Reporting Lab: [place] [address] Performing Lab: [place] [address] BRAIN NATRIURETIC PEPTIDE 59.0 pg/mL 0-100 Jan 07, 2024 05:30 PM [facility] COVID-19 DIAGNOSTIC (FLU/RSV)(STL) Specimen Type: NASOPHARYNX Comment: [...] Jan 07, 2024 04:59 PM Reporting Lab: [place] [id number] Performing Lab: [address] [phone] INFLUENZA A Negative Negative INFLUENZA B Negative Negative COVID-19 (STL-PB) Not Detected Not Detected RSV (Cepheid) NEGATIVE Negative Jan 07, 2024 05:30 PM [facility] COMPREHENSIVE METABOLIC PANEL Specimen Type: PLASMA Comment: Aspartate Transaminase result may show positive bias due to hemolysis. K result canceled due to hemolysis. Specimen moderately hemolyzed. K cancelled due to moderate hemolysis. Called to : Phillip Cee RN at: 1902 on: 01/07/2024 by: TENNILLE Ordering Provider: GRACIELA MANN Report Released Date/Time: Jan 07, 2024 04:59 PM Reporting Lab: [address] [phone] Performing Lab: [address] [phone] CREATININE 8.88 mg/dL H 0.7-1.3 UREA NITROGEN [...] LL >60 Jan 07, 2024 05:30 PM [facility] CBC Specimen Type: BLOOD No comment entered. Ordering Provider: GRACIELA MANN Report Released Date/Time: Jan 07, 2024 04:59 PM Reporting Lab: [address] [phone] Performing Lab: [address] [place] [address] WBC 9.2 10*3/uL 3.6-11.2 RBC 3.81 10*6/uL [...] 01:14 PM [facility] ADMIT TOBACCO SCREEN NO [facility] Tobacco Use History This section includes a history of the smoking, or tobacco-related health factors, that were collected on or before the date of the Encounter. The data comes from the [place] facility where the Encounter took place. Date/Time Smoking Status/Tobacco Use Comment F acility Dec 12, 2022 04:00 PM [facility] ADMIT TOBACCO SCREEN NO [facility] Jun 25, 2022 03:24 PM VA-TOBACCO FORMER USER [facility] Jun 25, 2022 03:24 PM VA-TOBACCO QUIT 15 YRS OR MORE [facility] Dec 23, 2021 04:59 PM [facility] ADMIT TOBACCO SCREEN REFUSED [facility] May 24, 2020 11:27 PM [facility] ADMIT TOBACCO SCREEN NO [facility] Dec 12, 2019 10:24 AM VA-TOBACCO FORMER USER [facility] Dec 12, 2019 10:24 AM VA-TOBACCO QUIT 15 YRS OR MORE [facility] Aug 03, 2019 02:11 AM [facility] ADMIT TOBACCO SCREEN REFUSED [facility] Oct 12, 2018 01:14 AM QUIT TOBACCO >7 YEARS AGO [facility] Oct 11, 2018 03:33 PM [facility] ADMIT TOBACCO SCREEN NO [facility] Sep 07, 2018 09:13 PM [facility] ADMIT TOBACCO SCREEN NO [facility] Sep 07, 2018 07:52 PM QUIT TOBACCO >7 YEARS AGO [facility] Advance Directives: All historical and current Section Date Range: From patient's date of to the date document was created. This section includes ALL of a patient's completed or amended [place] Advance and Rescinded Directives. The entries below indicate that a directive exists for the patient, but an actual copy is not included with this document. The data comes from all [facility]. Date Advance Directives Provider Source Dec 17, 2022 ADVANCE DIRECTIVE BIJAN MERRITT [facility] Feb 09, 2020 ADVANCE DIRECTIVE DISCUSSION MELY LUCIANO [facility] Feb 02, 2018 ADVANCE DIRECTIVE BEAU ALTAMIRANO [facility] Nov 29, 2006 ADVANCE DIRECTIVE MARELY CHACON [facility] Radiology Reports: +/- 30 days of the [...] 2024 08:01 PM CHEST PORTABLE: NAGI KATZ [id number] M Exm Date: JAN 07, 2024@20:01 Req Phys: KARELYANNA PEÑALOZA Loc: -EMERGENCY DEPT 3RD SHIFT (R Img Loc: -MAIN RADIOLOGY SUITE Service: Unknown (Case [id number] COMPLETE) CHEST PORTABLE (RAD Detailed) CPT:35515 Proc Modifiers : Portable Reason for Study: weakness, ESRD Clinical History: Report Status: Verified Date Reported: JAN 07, 2024 Date Verified: JAN 07, 2024 Crap Game Box Person E-Sig: Report: CHEST PORTABLE HISTORY: weakness, ESRD [...] No pneumothorax. READING PHYSICIAN: Madhu Patton M.D. -[id number] 01/07/2024 19:10 PDT [facility] National Teleradiology Program [phone] (For Medical Practitioner Use Only) Attention Patients / Veterans: If you have questions or concerns about these test results, please contact your ordering provider or primary care team. Primary Interpreting Staff: RADIOLOGY,OUTSIDE SERVICE, Staff Physician / RADIOLOGY,OUTSIDE SERVICE [facility] Encounter Notes: All associated encounter notes This section contains the clinical notes associated to the Encounter. Date/Time Encounter Note(s) Provider Source Feb 04, 2024 06:24 PM ADDENDUM: LOCAL TITLE: Addendum STANDARD TITLE: ADDENDUM DATE OF NOTE: FEB 04, 2024@18:24:01 ENTRY DATE: FEB 04, 2024@18:24:02 AUTHOR: MERY TREJO EXP COSIGNER: URGENCY: STATUS: COMPLETED 68yM with Dm2,HTN,obesity, A,fib on anticoagulation,JONAH,history of SBO is seen in dialysis today [place] successful[place] canulation of his AVF. He is considering dialysis in community if he does not have M-F HD schedule not avaialble. Will alert social workers to f/u with pt. /edwar/ MERY TREJO MD STAFF PHYSICIAN,NEPHROLOGY Signed: 02/04/2024 18:27 Receipt Acknowledged By: 02/05/2024 08:11 /edwar/ FLORIN Devlin, PLANT MAINTENANCE ENGINEER Edge Stainer --- Original Document --- 02/04/24 RENAL MONTHLY NOTE STL: Pt seen in dialysis today as he got initiated on HD 01/08/24 due to progressive ckd from HTN and DM. He has uremic symptoms and fluid overload which is resolved. Pt had initial issues with cannulation of LUE AVF. Currently, pt is transitioned to 15G needles today. He has pain at the cannulation site and is getting clint cream. He has no chest pain/sob/dizziness. He is tolerating HD without cramping. His appetite is good and is eating well without N/V/abd pain. He has no leg swelling. Home bp ~120/70 range and he denied any hypotension episodes at home. He is taking all his meds and taking them as prescribed. He is not compliant with CPAP and waiting to use different mask. 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 PMH 1) Type II diabetes mellitus uncontrolled 2) [...] disease 20) Superficial incisional surgical site infection Medications reviewed with patient and discrepancies reviewed Active and Recently Outpatient Medications (including Supplies): Active Outpatient Medications [...] ACTIVE BEDTIME NEEDED FOR NERVE PAIN 6) GUAIFENESIN 200MG TAB TAKE ONE TABLET BY MOUTH EVERY ACTIVE 4 HOURS NEEDED FOR MUCUS THINNING TAKE WITH 8 OUNCE GLASS OF WATER. 7) INSULIN SYRINGE 0.5ML 30G 12MM USE 1 SYRINGE UNDER ACTIVE THE SKIN ONCE A DAY TO USE WITH INSULIN 8) LIDOCAINE 2.5/PRILOCAINE 2.5% CREAM APPLY SPARINGLY ACTIVE TO AFFECTED AREA(S) THREE TIMES PER WEEK FOR LOCAL ANESTHESTIC FOR AVF CANNULATIO APPLY TO FISTULA SITE AT LEAST 30 MINUTES BEFORE DIALYSIS TREAMENT AND COVER WITH SARAN WRAP 9) MAGNESIUM OXIDE 400MG TAB TAKE ONE TABLET BY MOUTH ACTIVE ONCE A DAY 10) NIFEDIPINE (EQV-CC) 90MG SA TAB TAKE ONE TABLET BY ACTIVE MOUTH ONCE A DAY FOR HEART/BLOOD PRESSURE. PREFERABLE TO TAKE ON EMPTY STOMACH. SWALLOW WHOLE; DO NOT CRUSH OR CHEW. AVOID GRAPEFRUIT JUICE. 11) OLOPATADINE HCL 0.2% OPH SOLN INSTILL 1 DROP IN BOTH ACTIVE EYES ONCE A DAY FOR OCULAR ALLERGIES, ITCHING 12) OMEPRAZOLE 20MG EC CAP TAKE ONE CAPSULE BY MOUTH ACTIVE EVERY MORNING BEFORE A MEAL TO LOWER STOMACH ACID. TAKE 30 MINUTES PRIOR TO FOOD. 13) OXYCODONE HCL 5MG TAB TAKE ONE TABLET BY MOUTH EVERY ACTIVE EIGHT(8) HOURS NEEDED MAY CAUSE CONSTIPATION 14) PEG 400 0.4%/PROP GLYCOL 0.3% OPH SOLN INSTILL 1 DROP ACTIVE IN BOTH EYES FOUR TIMES A DAY NEEDED FOR DRY EYE(S) 15) RENAL MULTIVIT W/1MG OR LESS FA TAB TAKE 1 TABLET BY ACTIVE MOUTH ONCE A DAY FOR NUTRITION/DIETARY SUPPLEMENTATION 16) SEMAGLUTIDE 1MG/0.75ML INJ PEN 3ML INJECT 1MG UNDER ACTIVE THE SKIN EVERY WEEK FOR DIABETES 17) TAMSULOSIN HCL 0.4MG CAP TAKE ONE CAPSULE BY MOUTH ACTIVE TWICE A DAY FOR BENIGN PROSTATIC HYPERPLASIA APPROXIMATELY 30 MINUTES AFTER THE SAME MEAL EACH DAY Exam: Vitals: BP:140/70 P:62/min wt:102.5 kg T: 97.7 SHEENT:PERRLA,No JVD/icterus/conj pallor+ CHEST:lungs clear B/L CVS:S1S2+ NO MRG ABD: Soft non-tender and no organomegaly EXTREMITIES: No LE Edema NEURO:non focal SKIN: no rash PSYCHIATRY: appropriate affect Access: LUE AVF cannulated with no swelling in access extremity Labs: HGB 9.0 L g/dL 01/28/2024 17:29 PLT 290 10*3/uL 01/28/2024 17:29 WBC 8.9 10*3/uL (01/28/24 17:29) SODIUM 142 mEq/L 02/02/2024 11:50 POTASSIUM 4.6 mEq/L 02/02/2024 11:50 CHLORIDE 111 H mEq/L 02/02/2024 11:50 UREA NITROGEN 58.6 H mg/dL 02/02/2024 11:50 CREATININE 8.34 H mg/dL 02/02/2024 11:50 CALCIUM 9.2 mg/dL 02/02/2024 11:50 PROTEIN 7.6 g/dL 01/07/2024 17:30 ALBUMIN 3.7 g/dL 02/02/2024 11:50 ALKALINE PHOSPHATASE 100 U/L 01/07/2024 17:30 ALT/SGPT 17 U/L 01/07/2024 17:30 AST/SGOT 18 U/L 01/07/2024 17:30 TOTAL BILIRUBIN 0.4 mg/dL 01/07/2024 17:30 CARBON DIOXIDE 20 L mEq/L 02/02/2024 11:50 GLUCOSE 169 H mg/dL 02/02/2024 11:50 EGFR (CKD-EPI 2020) 6.4 L* 02/02/2024 11:50 PHOSPHOROUS 3.6 mg/dL 02/02/2024 11:50 IRON 52 L ug/dL 01/26/2024 13:00 TIBC 225 L ug/dL 01/26/2024 13:00 FERRITIN 118.78 ng/mL 01/26/2024 13:00 VITAMIN D, 25-HYDROXY 46.8 ng/mL 08/31/2023 16:36 HGA1C 6.0 % 11/16/2023 16:49 CREATuF: 57.4 (06/21/23 19:45) M/CREAT: comment (10/21/22 10:42) MICRAL: >500.0 (10/21/22 10:42) PRO/CR: 1.9 (10/21/22 10:42) Impression for US RENAL COMPLETE, 02/07/21, case [id number] Renal cortical echogenicity is increased suggesting underlying parenchymal disease. Tiny cysts in the kidneys. No obstructive uropathy. Incompletely distended urinary bladder without gross abnormality. A/P #Ckd V initiated on HD, TTS schedule now 24 hr urine with 3.2 liter volume and has crcl 17ml/min -14ml/min per BSA Adequacy: URR low 60% change dialyzer to bigger one 25Nepro increase DFR to 600ml/min Pt is agreeable for 4 hrs dialysis session and time increased Acidosis: on high bicarb bath sodium bicarb supplements stopped Monitor next lab Uf 0.5 liter and he has no dry weight set up at this time Consider incremental dialysis twice/wk-24 hr creat clearance 14ml/min adjusted for BSA and he has 3289 ml of urine Continue with education about low sodium diet and fluid restrictions Nutrition: Diet reviewed with pt about high protein, low phos continue nephrovite albumin 3.7 HTN/Volume: bp is stable Continue nifedipine 90mg and carvedilol 25mg bid pt denied any hypotension episodes consider diuretics if he has increased interdialytic weight gain, today he gained only 1 liter and he has good uop, no edema 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: Hb is below goal started iv venofer and Darbe 40mcgm weekly Pt denied any Gi blood loss Hb is stable F/u weekly Secondary hyperparathyroidism in ckd: Pth 527 to 141 Continue Zemplar 2mcgm in HD Ca 9.2 and phos 3.6 at goal Kidney Transplant: Pt is interested and he has pending cardiology eval F/u with lifestyle coordinator /edwar/ MERY TREJO MD STAFF PHYSICIAN,NEPHROLOGY Signed: 02/04/2024 18:23 MERY TREJO [facility] Feb 04, 2024 06:07 PM DIALYSIS NOTE: LOCAL TITLE: HEMODIALYSIS RUNSHEET APPOINTMENT [facility] STANDARD TITLE: DIALYSIS NOTE DATE OF NOTE: FEB 04, 2024@18:07:52 ENTRY DATE: FEB 04, 2024@18:07:52 AUTHOR: JESUSITA ARNDT COSIGNER: URGENCY: routine STATUS: COMPLETED Dialysis [place] Appointment on Feb 04, 2024@12:58 Patient: NAGI KATZ Treatment Date: 04-Feb-20248 Status: Discharged Latest Lab Result: URR: (, ) Kt/V: (, ) HgB: (, ) HCT: (, ) Diagnosis: End stage renal disease Patient Type: Inpatient Allergies: MORPHINE Resuscitate: [x] YES [ ] NO HD Summary Tables TREATMENT SUMMARY Treatment Start Time 04-Feb-2024 1258 Treatment End Time 04-Feb-2024 1659 Duration(ordered): 4:00 Duration(manually adjusted): 4:00 Weights (Kg) and Fluid Removed (L): Date Pre Weight Target Weight Post Weight Excess Weight IDW Goal Weight Target UF Achieved UF Current 102.50 0.00 103.20 102.50 1.00 0.00 0.50 0.91 02-Feb-2024 101.30 0.00 101.50 101.30 0.00 0.50 0.38 28-Jan-2024 103.60 0.00 103.60 103.60 0.60 0.00 0.50 0.80 Blood Pressures (mmHg) & Fluid intake (mL) during treatment: Date Pre BP Post BP Lowest BP Highest BP IVF Given (mL) PO Fluid (mL) Current Sitting 154/71 Sitting 164/75 143/73 175/70 0.40 Sitting 144/74 Standing 158/79 -- -- -- -- 02-Feb-2024 Sitting 122/59 Standing 151/74 106/57 163/68 0.40 -- -- -- -- 28-Jan-2024 Sitting 148/70 Sitting 152/74 136/93 178/76 Standing 150/75 -- -- -- -- Pulse and Temp: Date Pre Pulse Post Pulse Lowest Pulse Highest Pulse Pre Temp Post Temp Current Sitting 68 Sitting 60 58 69 98.1 97.7 Sitting 66 Standing 72 -- -- -- -- 02-Feb-2024 Sitting 63 Standing 98 56 87 97.3 97.5 -- -- -- -- 28-Jan-2024 Sitting 74 Sitting 70 61 68 97.1 98.0 Standing 74 -- -- -- -- HD Times Date Prescribed Time Achieved Time Treatment Start Treatment End Current 4:00 4:00 1258 1659 02-Feb-2024 3:30 3:34 1254 1628 28-Jan-2024 3:30 3:29 1352 1722 Day's Order Related Problem: End stage renal disease Access Type: Fistula Access Site: VIRGIE Backup Access: Backup Access Site: Needle Gauge: 15 gauge 1 Freezing: [ ] YES [x] NO Machine Type: [place] Isolation: [ ] YES [x] NO Conventional HD Prosthesis(kg): Wheelchair(kg): Target Weight(kg): 0.00 Duration(h): 4:00 or Target UF(kg): 0.50 Frequency(x/wk): 3.00 Dialysate Temp(C): 37.00 Dialysis Type: [ ] daytime [ ] nocturnal Prescribed BVP(L): 96.00 Dialysate Type: Saline Inf. (mL): INGREDIENT SCALER HELPER Blood Flow(ml/min): Hemodiafiltr. Volume(l): Hemodiafiltr. Fluid Type: Fractional Urea Distribution Space: 0.00 Prescribed KT/V: Process: Hemodialysis Procedure: Daily dialysis treatment Dialyzer: Nipro Elisio - 19H Max. reuses: Dialyzer 2: Tubing: K+(mmol/L): 2 Ca+(mmol/L): 3 Glucose(mmol/L): Mg+(mmol/L): Profiles: Initial values: Ramping: Dialysate Flow(ml/min): 500.00 Blood Flow(ml/min): 400 Bicarb(mmol/L): 40 Na+(mmol/L): 138 [...] Value Comments Verified Verified Time Verified By 1106 Needle Gauge 15 gauge 1 update orders NO 1106 Blood Flow Prof 350 400 update orders NO 1631 Duration 3.5 4.0 update orders NO Access ===== Access Type: Fistula only PRE POST Bruit [...] [x] NO Hemostasis Time: Arterial Port (min): 12 Venous Port (min): 12 Cannulated [place]: 2 Staff: IAM RNEDON Cannulated Art: 1 Staff: IAM RENDON General: Today's Assessment: 15g needles x 2 successful Predialysis = Extra Treatment: [ ] YES [x] NO Received From: Staff On: IAM RENDON Station: Chair 09 Machine #: C - 10 Resp Caregiver: Treat Caregiver: Arrival Time: 04-Feb-2024 1235 Mode: walking By/With: unaccompanied Vital Signs Temp(C): 98.10 Resp: 18 Time: 1229 Sitting BP: 154/71 Sitting Pulse: 68 Time: 1242 Sitting BP: 144/74 Sitting Pulse: 66 Weights Measure Wt(kg): 102.50 Target Weight(kg): 0.00 Prosthesis Wt(kg): or Target UF(kg): 0.50 Wheelchair Wt(kg): Weight Change(kg): 1.00 Current Wt(kg): 102.50 Excess Weight(kg): 102.50 Total Fluid Admin(kg): 0.40 Expected UF Vol(kg): 102.90 Target TMP(mm/Hg): UFR(kg/hr : ml/kg/hr): 25.62 : ? Patient Condition: 04-Feb-2024 1309 IAM RENDON Alert and oriented, Confirmed correct pt, Labs at beginning of treatment, No complaints offered Nursing Assessment: 04-Feb-2024 1323 JESUSITA ARNDT TRANSIT MIXER DRIVER PRE-ASSESSMENT Time of assessment [ MENTAL STATUS: [ ]Alert & Oriented x 3 Comment:[ [ ]Alert & Oriented x 2 [ ]Person [ ]Place [ ]Time/Date [ ]Situation Comment:[ [x ]Alert & Oriented x 4 [ ]Person [ ]Place [ ]Time/Date [ ]Situation Comment:[ [ ]Confused Comment:[ [ ]Other Comment:[ RESPIRATORY STATUS: [x ]Clear bilaterally [ ]Clear right [ ]Clear [...] ]R lower lobe [ ]Bilateral Comment:[ EDEMA: [x ]No edema noted [ ]Face [ ]Abdomen [ ]Bilateral UE [ ]Left UE [ ]Right UE [ ] Bilateral LE [ ]Left LE [ ]Right LE Comment:[ Comments:[Patient arrived for HD no apparent distress, pt offered no complaints. Orders verified. Goal set 0.9 per Iron Carrier Maria Elena. Pt venous cannulated x2 by Iam PENN. Treatment started without diffiuculty. Fluid Balance Topics covered with this education session include: Patient/Partner will be able to verbalize knowledge of: [ ] Residual kidney function and physiologic changes caused by kidney disease [ ] How to measure intake and output [ ] Rational for adherence to fluid recommendations [ x ] Goals for fluid management including sodium restriction and thirst management [ ] Signs and symptoms to report Learner Type: Delivery Method: [ ] Family [ ] Handout [x ] Patient [ x ] Lecture [ ] Care Provider Patient and/or Caregiver Learning Evaluation: [ ] Excellent - Demonstrates Independently [ ] Very Good - Explains in Own Words [ ] Good - Verbalizes Understanding [x ] Fair - Demonstrates With Assistance [ ] Follow Up Required - Requires Follow up [ ] Poor - Needs Assistance Comments: [ Acknowledged On: 04-Feb-2024 1314 By: JESUSITA ARNDT Pain: Acuity: 0 Type: Location: Measures: Heparin: Pump Start At: By: Hourly Rate: Bolus: Same Syringe: [ ] YES [x] NO Total in Syringe: Verified By: Time: Communication: Preferred Language: [place] Citizen Providier Proficient: [ ] YES [x] NO Leather Lacer Desired: [ ] YES [x] NO Offered: [ ] YES [x] NO Dialysis Log DIALYSIS LOG Start Date/Time: 04-Feb-2024 8568 Table 1: Dialysis Data ------ Time BP MAP Pulse BFR BVP AP INGREDIENT SCALER HELPER TMP UFR TFR HEP Hep Com ------ 1258 154/74 62 270 2.6 -80 90 20 0.10 : ? 0.02 0.0 1300 154/74 0.0 62 290 3.2 -90 150 0 0.10 : ? 0.02 0.0 1315 143/73 0.0 62 400 8.6 -210 200 0 0.22 : ? 0.07 0.0 1330 144/74 0.0 62 400 14.6 -220 190 0 0.22 : ? 0.14 0.0 1345 146/67 0.0 63 400 20.6 -220 180 0 0.22 : ? 0.18 0.0 1353 0.0 1354 0.0 1400 161/70 0.0 62 400 26.6 -210 180 0 0.22 : ? 0.23 0.0 1415 153/72 0.0 60 400 32.6 -210 190 0 0.22 : ? 0.30 0.0 1430 167/70 0.0 62 400 38.6 -210 180 5 0.22 : ? 0.35 0.0 1445 166/73 0.0 60 400 44.6 -200 180 0 0.22 : ? 0.40 0.0 1515 175/70 0.0 59 400 56.7 -190 180 0 0.22 : ? 0.51 0.0 1530 155/72 0.0 61 410 62.7 -180 190 0 0.22 : ? 0.56 0.0 1545 161/77 0.0 58 410 68.9 -180 180 0 0.22 : ? 0.63 0.0 1600 159/77 0.0 58 410 75.0 -180 180 0 0.22 : ? 0.68 0.0 1615 167/75 0.0 58 410 81.2 -170 180 -5 0.22 : ? 0.75 0.0 1630 157/76 0.0 58 410 87.3 -170 180 -5 0.22 : ? 0.79 0.0 1645 164/75 0.0 59 410 93.5 -180 180 -5 0.22 : ? 0.84 0.0 1700 172/75 0.0 69 70 99.0 10 40 30 0.10 : ? 0.91 0.0 1701 0 99.0 30 20 5 0.00 : ? 0.91 0.0 1757 0.0 ------ Table 2: Dialysate Bath ------ Time DFR ADV Temp K Ca Na HC03 ------ 1258 500.00 36.90 2.00 3.00 0.00 0.00 1300 500.00 36.90 2.00 3.00 0.00 0.00 1315 600.00 36.40 2.00 3.00 0.00 0.00 1330 600.00 36.40 2.00 3.00 0.00 0.00 1345 600.00 36.40 2.00 3.00 0.00 0.00 1353 1354 1400 600.00 36.50 2.00 3.00 0.00 0.00 1415 600.00 36.40 2.00 3.00 0.00 0.00 1430 600.00 36.40 2.00 3.00 0.00 0.00 1445 600.00 36.40 2.00 3.00 0.00 0.00 1515 600.00 36.40 2.00 3.00 0.00 0.00 1530 600.00 36.50 2.00 3.00 0.00 0.00 1545 600.00 36.40 2.00 3.00 0.00 0.00 1600 600.00 36.40 2.00 3.00 0.00 0.00 1615 600.00 36.50 2.00 3.00 0.00 0.00 1630 600.00 36.40 2.00 3.00 0.00 0.00 1645 600.00 36.40 2.00 3.00 0.00 0.00 1700 350.00 36.50 2.00 3.00 0.00 0.00 1701 350.00 36.40 2.00 3.00 0.00 0.00 1757 ------ Table 3: Patient Assessment ------ Acknowledge Time Author Access Visible Patient Status ------ 04-Feb-2024 130 IAM RENDON [x] YES [ ] NO 04-Feb-2024 130 IAM RENDON [x] YES [ ] NO pt. was cannulate x3 due to pulling out clot in the perry needle. pt. recannulated and tx. initiated 04-Feb-2024 1323 JESUSITA ARNDT [x] YES [ ] NO Pt resting in chair, lines secured, tx continues 04-Feb-2024 1349 JESUSITA ARNDT [x] YES [ ] NO Pt resting vss, lines, tx continues 04-Feb-2024 1349 ARNDTBRITTNI M[facility] Y [x] YES [ ] NO Pt vss, lines secured, tx continues 04-Feb-2024 1353 JESUSITA ARNDT [ ] YES [x] NO 04-Feb-2024 JESUSITA ARNDT [ ] YES [x] NO 04-Feb-2024 1421 RENDON,IAM [x] YES [ ] NO pt. eyes closed, lines secure 04-Feb-2024 1421 RENDON,IAM [x] YES [ ] NO pt. resting in chair,lines secure 04-Feb-2024 1449 RENDON,IAM [x] YES [ ] NO pt. eyes closed,resting,line ssecure 04-Feb-2024 1449 RENDON,IAM [x] YES [ ] NO pt. stable,lines secure 04-Feb-2024 1541 RENDON,IAM [x] YES [ ] NO pt stable,lines secure 04-Feb-2024 1541 RENDON,IAM [x] YES [ ] NO pt. eyes closed,lines secure 04-Feb-2024 1554 RENDON,IAM [x] YES [ ] NO pt. resting in chair,lines secure 04-Feb-2024 1606 RENDON,IAM [x] YES [ ] NO pt. resting,lines secure 04-Feb-2024 1648 RENDON,IAM [x] YES [ ] NO pt. resting line ssecure 04-Feb-2024 1648 RENDON,IAM [x] YES [ ] NO pt. alert,line ssecure 04-Feb-2024 1649 RENDON,IAM [ ] YES [x] NO ptl alert, lines secure 04-Feb-2024 1741 RENDON,IAM [x] YES [ ] NO pt. tx. dc'd per policy 04-Feb-2024 1741 RENDON,IAM [x] YES [ ] NO 04-Feb-2024 175 HAIRBRITTNIH Holly [ ] YES [x] NO ------ Medication Log Medication Log Start Date/Time: 04-Feb-2024 Medication: Time: 1352 Nurse: JESUSITA ARNDT 2nd peoplesoft hcm consultant: Medication/Blood: IRON SUCROSE 20MG/ML INJ Dosage/Units: 100.00 mg Route: IV PUSH Unused Amount: 0.00 IV Flush(mL): Admin Comments: [id number] Reason Not Given: Medication: Time: 1353 Nurse: JESUSITA ARNDT 2nd peoplesoft hcm consultant: Medication/Blood: PARICALCITOL 2MCG/ML SOLN INJ Dosage/Units: 2.00 mcg Route: IV PUSH Unused Amount: 0.00 IV Flush(mL): Admin Comments: [id number] Reason Not Given: Medication: Time: 1756 Nurse: JESUSITA ARNDT 2nd peoplesoft hcm consultant: Medication/Blood: LIDOCAINE 2.5/PRILOCAINE 2.5% CREAM Dosage/Units: Not given Route: Unused Amount: 0.00 IV Flush(mL): Admin Comments: Reason Not Given: Events Log = ------ Time Resolved Complication Comments Author Brigitte Spent [place] Notified Ack'd Nurse Postdialysis Clotted: [ ] YES [x] NO Infiltrated: [ ] YES [x] NO Extra Treatment: [ ] YES [x] NO Procedure: Daily dialysis treatment Stop Date/Time: 04-Feb-2024 Dialysis Time(hrs): 4:00 Staff Off: IAM RENDON Effective Time(hrs): Resp Caregiver: Departure Time: 1729 By/With: unaccompanied Mode: walking Visit Disposition: Discharged Home (private dwelling, not an institution, no support services) Patient Sent To: Pain Acuity: 0 Type: Location Measures Measures Measures Weights Measured Wt.(kg): 103.20 Prosthesis Wt.(kg): Wheelchair Wt(kg): Post Dialysis Wt(kg): 103.20 Target Weight(kg): 0.00 Target UF(kg): 0.50 Removed Wt(kg): -0.70 Fluid Removed(kg): 0.91 Effective UFR (kg/hr:ml/kg/hr): -0.18 : -1.7 Dialysate Used(L): 134.67 Patient Status Temp(C): 97.70 Resp: 18 Sitting BP: 164/75 Sitting Pulse: 60 Standing BP: 158/79 Standing Pulse: 72 Lowest BP: 143/73 BV Processed: Heparin Total Ordered: 0.00 Total Infused: Left in Syringe: Verified At: By: 2nd peoplesoft hcm consultant: By: Fluid Intake Total Ingested(kg): Total HDF Administered(kg): Avg HDF(kg/hr): Hematocrit(%): Hemoglobin(mg/dL): KT/V: Relative Blood Volume(%): Final Effective Ionic Dialysance: Dialyzer Post Dial Rating: Acid Disinfect: 1655 Chemical Cycle Start At: 1750 Heat Cycle Start At: Patient Condition: 04-Feb-2024 174 IAM RENDON Alert & oriented, Treatment tolerated without complication, Discharged ambulatory Nursing Assessment: 04-Feb-2024 JESUSITA ARNDT TRANSIT MIXER DRIVER POST-ASSESSMENT Time of assessment [ MENTAL STATUS: [ ]Alert & Oriented x 3 Comment: [x ]Alert & Oriented x 4 [ ]Person [ ]Place [ ]Time/Date [ ]Situation Comment: [ ]Alert & Oriented x 1 [ ]Person [ ]Place [ ]Time/Date [ ]Situation Comment:[ [ ]Confused Comment:[ [ ]Other Comment:[ RESPIRATORY STATUS: [x ]Clear bilaterally [ ]Clear right [ ]Clear [...] ]R lower lobe [ ]Bilateral Comment:[ EDEMA: [x ]No edema noted [ ]Face [ ]Abdomen [ ]Bilateral UE [ ]Left UE [ ]Right UE [ ] Bilateral LE [ ]Left LE [ ]Right LE Comment:[ Comments:[Patient tolerated treatment well, no complaints post blood return. Pt denies complaints upon standing. No prolonged bleeding, access cdi. Acknowledged On: 04-Feb-2024 Acknowledged By: JESUSITA ARNDT Preparation = Station: Chair 09 Machine #: C - 10 MACHINE DISINFECTION Acid Cycle: 04-Feb-2024 Heat Cycle: 27-Jan-20246 Chemical Cycle: 04-Feb-2024 Disinfect Clear Status: MACHINE CHECKS Original All Steps Completed: [x] YES [ ] NO Alarm Test Complete: 04-Feb-2024 1200 Alarms Audible: 04-Feb-2024 1200 Checked prescription: 04-Feb-2024 1200 Checked conductivity: 04-Feb-2024 1200 Double checked 04-Feb-2024 1240 Patient identified: 04-Feb-2024 1225 prescription: Time Out: 04-Feb-2024 1240 Conductivity: 13.80 Calcium: 3 Dialysate Temperature: 37.00 Potassium: 2 Bicarb: 40 Reading confirmation: 04-Feb-2024 Conductivity: 13.80 pH: 7.10 Replacement All Steps Completed: [x] YES [ ] NO Alarm Test Complete: 04-Feb-2024 1200 Alarms Audible: 04-Feb-2024 1200 Checked prescription: 04-Feb-2024 1200 Checked conductivity: 04-Feb-2024 1200 Double checked 04-Feb-2024 1240 Patient identified: 04-Feb-2024 1225 prescription: Time Out: 04-Feb-2024 124 Conductivity: 13.80 K+: 2 pH: 7.10 Ca+: 3 Dialysate Temp (C): 37.00 Material ==== MATERIAL / DIALYZER REUSE Start Machine (#): C - 10 Time Failed: Replacement Machine: Replaced time: Reason: Dialyzer Label: Nipro Elisio - 19H Reprocessed #: Dialyzer Lot: Pre-dialysis Dialyzer Rating: Check 1: 04-Feb-2024 1058 IAM RENDON Check 2: 04-Feb-2024 1200 JESUSITA ARNDT Location: [address] [place] [address] BUFFY OG,RN REGISTERED NURSE Signed: 02/04/2024 18:07 JESUSITA ARNDT [facility] Feb 04, 2024 12:25 PM NEPHROLOGY NOTE: LOCAL TITLE: RENAL MONTHLY NOTE ST STANDARD TITLE: NEPHROLOGY NOTE DATE OF NOTE: FEB 04, 2024@12:25 ENTRY DATE: FEB 04, 2024@12:25:37 AUTHOR: MERY TREJO COSIGNER: URGENCY: STATUS: COMPLETED RENAL MONTHLY NOTE STL Has ADDENDA Pt seen in dialysis today as he got initiated on HD 01/08/24 due to progressive ckd from HTN and DM. He has uremic symptoms and fluid overload which is resolved. Pt had initial issues with cannulation of LUE AVF. Currently, pt is transitioned to 15G needles today. He has pain at the cannulation site and is getting clint cream. He has no chest pain/sob/dizziness. He is tolerating HD without cramping. His appetite is good and is eating well without N/V/abd pain. He has no leg swelling. Home bp ~120/70 range and he denied any hypotension episodes at home. He is taking all his meds and taking them as prescribed. He is not compliant with CPAP and waiting to use different mask. 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 PMH 1) Type II diabetes mellitus uncontrolled 2) [...] disease 20) Superficial incisional surgical site infection Medications reviewed with patient and discrepancies reviewed Active and Recently Outpatient Medications (including Supplies): Active Outpatient Medications [...] ACTIVE BEDTIME NEEDED FOR NERVE PAIN 6) GUAIFENESIN 200MG TAB TAKE ONE TABLET BY MOUTH EVERY ACTIVE 4 HOURS NEEDED FOR MUCUS THINNING TAKE WITH 8 OUNCE GLASS OF WATER. 7) INSULIN SYRINGE 0.5ML 30G 12MM USE 1 SYRINGE UNDER ACTIVE THE SKIN ONCE A DAY TO USE WITH INSULIN 8) LIDOCAINE 2.5/PRILOCAINE 2.5% CREAM APPLY SPARINGLY ACTIVE TO AFFECTED AREA(S) THREE TIMES PER WEEK FOR LOCAL ANESTHESTIC FOR AVF CANNULATIO APPLY TO FISTULA SITE AT LEAST 30 MINUTES BEFORE DIALYSIS TREAMENT AND COVER WITH SARAN WRAP 9) MAGNESIUM OXIDE 400MG TAB TAKE ONE TABLET BY MOUTH ACTIVE ONCE A DAY 10) NIFEDIPINE (EQV-CC) 90MG SA TAB TAKE ONE TABLET BY ACTIVE MOUTH ONCE A DAY FOR HEART/BLOOD PRESSURE. PREFERABLE TO TAKE ON EMPTY STOMACH. SWALLOW WHOLE; DO NOT CRUSH OR CHEW. AVOID GRAPEFRUIT JUICE. 11) OLOPATADINE HCL 0.2% OPH SOLN INSTILL 1 DROP IN BOTH ACTIVE EYES ONCE A DAY FOR OCULAR ALLERGIES, ITCHING 12) OMEPRAZOLE 20MG EC CAP TAKE ONE CAPSULE BY MOUTH ACTIVE EVERY MORNING BEFORE A MEAL TO LOWER STOMACH ACID. TAKE 30 MINUTES PRIOR TO FOOD. 13) OXYCODONE HCL 5MG TAB TAKE ONE TABLET BY MOUTH EVERY ACTIVE EIGHT(8) HOURS NEEDED MAY CAUSE CONSTIPATION 14) PEG 400 0.4%/PROP GLYCOL 0.3% OPH SOLN INSTILL 1 DROP ACTIVE IN BOTH EYES FOUR TIMES A DAY NEEDED FOR DRY EYE(S) 15) RENAL MULTIVIT W/1MG OR LESS FA TAB TAKE 1 TABLET BY ACTIVE MOUTH ONCE A DAY FOR NUTRITION/DIETARY SUPPLEMENTATION 16) SEMAGLUTIDE 1MG/0.75ML INJ PEN 3ML INJECT 1MG UNDER ACTIVE THE SKIN EVERY WEEK FOR DIABETES 17) TAMSULOSIN HCL 0.4MG CAP TAKE ONE CAPSULE BY MOUTH ACTIVE TWICE A DAY FOR BENIGN PROSTATIC HYPERPLASIA APPROXIMATELY 30 MINUTES AFTER THE SAME MEAL EACH DAY Exam: Vitals: BP:140/70 P:62/min wt:102.5 kg T: 97.7 SHEENT:PERRLA,No JVD/icterus/conj pallor+ CHEST:lungs clear B/L CVS:S1S2+ NO MRG ABD: Soft non-tender and no organomegaly EXTREMITIES: No LE Edema NEURO:non focal SKIN: no rash PSYCHIATRY: appropriate affect Access: LUE AVF cannulated with no swelling in access extremity Labs: HGB 9.0 L g/dL 01/28/2024 17:29 PLT 290 10*3/uL 01/28/2024 17:29 WBC 8.9 10*3/uL (01/28/24 17:29) SODIUM 142 mEq/L 02/02/2024 11:50 POTASSIUM 4.6 mEq/L 02/02/2024 11:50 CHLORIDE 111 H mEq/L 02/02/2024 11:50 UREA NITROGEN 58.6 H mg/dL 02/02/2024 11:50 CREATININE 8.34 H mg/dL 02/02/2024 11:50 CALCIUM 9.2 mg/dL 02/02/2024 11:50 PROTEIN 7.6 g/dL 01/07/2024 17:30 ALBUMIN 3.7 g/dL 02/02/2024 11:50 ALKALINE PHOSPHATASE 100 U/L 01/07/2024 17:30 ALT/SGPT 17 U/L 01/07/2024 17:30 AST/SGOT 18 U/L 01/07/2024 17:30 TOTAL BILIRUBIN 0.4 mg/dL 01/07/2024 17:30 CARBON DIOXIDE 20 L mEq/L 02/02/2024 11:50 GLUCOSE 169 H mg/dL 02/02/2024 11:50 EGFR (CKD-EPI 2020) 6.4 L* 02/02/2024 11:50 PHOSPHOROUS 3.6 mg/dL 02/02/2024 11:50 IRON 52 L ug/dL 01/26/2024 13:00 TIBC 225 L ug/dL 01/26/2024 13:00 FERRITIN 118.78 ng/mL 01/26/2024 13:00 VITAMIN D, 25-HYDROXY 46.8 ng/mL 08/31/2023 16:36 HGA1C 6.0 % 11/16/2023 16:49 CREATuF: 57.4 (06/21/23 19:45) M/CREAT: comment (10/21/22 10:42) MICRAL: >500.0 (10/21/22 10:42) PRO/CR: 1.9 (10/21/22 10:42) Impression for US RENAL COMPLETE, 02/07/21, case [id number] Renal cortical echogenicity is increased suggesting underlying parenchymal disease. Tiny cysts in the kidneys. No obstructive uropathy. Incompletely distended urinary bladder without gross abnormality. A/P #Ckd V initiated on HD, TTS schedule now 24 hr urine with 3.2 liter volume and has crcl 17ml/min -14ml/min per BSA Adequacy: URR low 60% change dialyzer to bigger one 25Nepro increase DFR to 600ml/min Pt is agreeable for 4 hrs dialysis session and time increased Acidosis: on high bicarb bath sodium bicarb supplements stopped Monitor next lab Uf 0.5 liter and he has no dry weight set up at this time Consider incremental dialysis twice/wk-24 hr creat clearance 14ml/min adjusted for BSA and he has 3289 ml of urine Continue with education about low sodium diet and fluid restrictions Nutrition: Diet reviewed with pt about high protein, low phos continue nephrovite albumin 3.7 HTN/Volume: bp is stable Continue nifedipine 90mg and carvedilol 25mg bid pt denied any hypotension episodes consider diuretics if he has increased interdialytic weight gain, today he gained only 1 liter and he has good uop, no edema 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: Hb is below goal started iv venofer and Darbe 40mcgm weekly Pt denied any Gi blood loss Hb is stable F/u weekly Secondary hyperparathyroidism in ckd: Pth 527 to 141 Continue Zemplar 2mcgm in HD Ca 9.2 and phos 3.6 at goal Kidney Transplant: Pt is interested and he has pending cardiology eval F/u with lifestyle coordinator /patrice TREJO MD STAFF PHYSICIAN,NEPHROLOGY Signed: 02/04/2024 18:23 02/04/2024 ADDENDUM STATUS: COMPLETED 68yM with Dm2,HTN,obesity, A,fib on anticoagulation,JONAH,history of SBO is seen in dialysis today as pt currently dialyzing in [facility] while he waits for successfula canulation of his AVF. He is considering dialysis in community if he does not have M-F HD schedule not avaialble. Will alert social workers to f/u with pt. /patrice TREJO MD STAFF PHYSICIAN,NEPHROLOGY Signed: 02/04/2024 18:27 Receipt Acknowledged By: * AWAITING SIGNATURE * ALEXIS BURDEN * AWAITING SIGNATURE * STACEY GARCIA GEETHA S [facility]
--- OUTSIDE RECORDS SUMMARY | 2024-12-05 00:23 | XMS_ITS | Encounter Summary ---
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 Date/Time Encounter Type Encounter Description Reason Provider Source Jan 07, 2024 04:48 PM EMERGENCY DEPT VISIT [facility] EMERGENCY DEPT ICD-10-CM M62.81 Muscle weakness (generalized) CRYSTAL LAWRENCE Encounter Template Text not used by [place] Assessments - Encounter Diagnoses This section includes the primary and secondary diagnoses documented for the Encounter. Date/Time Primary/Secondary Diagnosis Diagnosis Name Provider Source Jan 07, 2024 11:47 PM PRIMARY Muscle weakness (generalized) MARTY CALI [facility] Jan 07, 2024 11:47 PM SECONDARY End stage renal disease MARTY CALI [facility] Plan of Treatment: Future Appointments (+ 6 months) and Future Tests (+/- 45 days) The Plan of Treatment section includes future care activities for the patient from all [place] treatmentfacilities. This section includes future appointments and future orders which are active, pending or scheduled. Future Appointments This section includes appointments that were scheduled to occur 6 months from the date of the Encounter, up to a maximum of 20 appointments. The data comes from all [place] treatment facilities. Appointment Date/Time Appointment Type Appointme nt Facility Name Jan 12, 2024 10:30 AM AMBULATORY - MEDICINE [facility] Jan 21, 2024 12:30 PM AMBULATORY - MEDICINE [facility] Jan 23, 2024 12:30 PM AMBULATORY - MEDICINE [facility] Jan 25, 2024 02:30 PM AMBULATORY - MEDICINE [facility] Jan 26, 2024 12:30 PM AMBULATORY - MEDICINE [facility] Jan 28, 2024 12:30 PM AMBULATORY - MEDICINE [facility] Feb 02, 2024 12:30 PM AMBULATORY - MEDICINE [facility] Feb 04, 2024 12:15 PM AMBULATORY - MEDICINE [facility] Feb 06, 2024 12:30 PM AMBULATORY - MEDICINE [facility] Feb 09, 2024 12:30 PM AMBULATORY - MEDICINE [facility] February 11, 2024 12:30 PM AMBULATORY - MEDICINE [facility] February 13, 2024 12:30 PM AMBULATORY - MEDICINE [facility] February 15, 2024 08:00 AM AMBULATORY - NONE [facility] February 15, 2024 08:30 AM AMBULATORY - MEDICINE [facility] Apr 05, 2024 09:30 AM AMBULATORY - MEDICINE [facility] Apr 27, 2024 07:30 AM AMBULATORY - SURGERY [facility] May 02, 2024 08:00 AM AMBULATORY - NONE . GEORGIE Gallardo [facility] May 02, 2024 08:30 AM AMBULATORY - MEDICINE [facility] May 16, 2024 02:00 PM [facility] Lab Results: +/- 30 days of the encounter This section includes the Chemistry and Hematology Lab Results on record with [place] for the patient. Radiology Reports and Pathology Reports are provided separately, in subsequent sections. Lab Results This section contains the Chemistry/Hematology Results that were resulted 30 days before or 30 daysafter the date of the Encounter. Date/Time Source Result Type Result - Unit Interpretation Reference Range Comment Feb 04, 2024 05:00 PM [facility] URR-POST PANEL (STL) Specimen Type: PLASMA No comment entered. Ordering Provider: KYLER PURCELL Report Released Date/Time: Feb 04, 2024 01:42 PM Reporting Lab: [facility] [address] [facility] [address] Performing Lab: [address] [address] BUN-POST DIALYSIS 16.2 mg/dL 9.0-25.0 URR (STL) 70.4 67.0-100.0 Feb 04, 2024 12:45 PM [facility] RENAL PANEL Specimen Type: PLASMA Comment: No hemolysis noted. Ordering Provider: KYLER PURCELL Report Released Date/Time: Feb 04, 2024 01:42 PM Reporting Lab: [facility] [address] [facility] [address] Performing Lab: [address] [address] CREATININE 6.97 mg/dL H 0.7-1.3 UREA NITROGEN 54.7 mg/dL H 9.0-25.0 GLUCOSE 134 mg/dL H 72-99 SODIUM 142 meq/L 136-145 POTASSIUM 4.0 meq/L 3.5-5 CHLORIDE 105 meq/L 98-107 CARBON DIOXIDE 24 meq/L 22-31 CALCIUM 9.7 mg/dL 8.4-10.4 PHOSPHOROUS 4.8 mg/dL H 2.3-4.7 ALBUMIN 3.9 g/dL 3.4-5 EGFR (CKD-EPI 2020) 7.9 LL >60 Feb 02, 2024 04:30 PM [facility] URR-POST PANEL (STL) Specimen Type: PLASMA No comment entered. Ordering Provider: KYLER PURCELL Report Released Date/Time: Feb 02, 2024 03:39 PM Reporting Lab: [address] [address] Performing Lab: [address] [address] BUN-POST DIALYSIS 22.9 mg/dL 9.0-25.0 URR (STL) 60.9 L 67.0-100.0 Feb 02, 2024 11:50 AM [facility] RENAL PANEL Specimen Type: PLASMA Comment: No hemolysis noted. Ordering Provider: KYLER PURCELL Report Released Date/Time: Feb 02, 2024 07:35 AM Reporting Lab: [address] [address] Performing Lab: [address] [address] CREATININE 8.34 mg/dL H 0.7-1.3 UREA NITROGEN 58.6 mg/dL H 9.0-25.0 GLUCOSE 169 mg/dL H 72-99 SODIUM 142 meq/L 136-145 POTASSIUM 4.6 meq/L 3.5-5 CHLORIDE 111 meq/L H 98-107 CARBON DIOXIDE 20 meq/L L 22-31 CALCIUM 9.2 mg/dL 8.4-10.4 PHOSPHOROUS 3.6 mg/dL 2.3-4.7 ALBUMIN 3.7 g/dL 3.4-5 EGFR (CKD-EPI 2020) 6.4 LL >60 Feb 01, 2024 11:00 PM [facility] 24H UR CHEM PANEL (STL) Specimen Type: 24-HOUR URINE No comment entered. Ordering Provider: KYLER PURCELL Report Released Date/Time: Jan 28, 2024 04:55 PM Reporting Lab: [facility] [address] [place] [address] Performing Lab: [address] [address] VOLUME 3289 mL SODIUM 24-HOUR URINE 226.941 H 40-220 POTASSIUM 24-HOUR URINE 35.8501 25-125 CHLORIDE 24-HOUR URINE 171.028 110-250 PROTEIN 24-HOUR URINE 1986.556 H 0-299.9 CREATININE 24-HOUR URINE 2078.119 197-8298 Jan 28, 2024 05:29 PM [facility] CBC Specimen Type: BLOOD No comment entered. Ordering Provider: KYLER PURCELL Report Released Date/Time: Jan 28, 2024 05:07 PM Reporting Lab: [address] [address] Performing Lab: [address] [address] WBC 8.9 10*3/uL 3.6-11.2 RBC 2.96 10*6/uL [...] 10*3/uL 0.00-0.20 Jan 26, 2024 01:00 PM [facility] FERRITIN Specimen Type: SERUM No comment entered. Ordering Provider: KYLER PURCELL Report Released Date/Time: Jan 21, 2024 03:14 PM Reporting Lab: [address] [address] Performing Lab: [address] [address] FERRITIN 118.78 ng/mL 22-275 Jan 26, 2024 01:00 PM [facility] PTH, INTACT (STL) Specimen Type: SERUM No comment entered. Ordering Provider: KYLER PURCELL Report Released Date/Time: Jan 21, 2024 03:14 PM Reporting Lab: [address] [address] Performing Lab: [address] [address] PTH, INTACT (STL) 141.40 pg/mL H 8.7-77.7 Jan 26, 2024 01:00 PM [facility] RENAL PANEL Specimen Type: PLASMA Comment: No hemolysis noted. Ordering Provider: KYLER PURCELL Report Released Date/Time: Jan 21, 2024 03:14 PM Reporting Lab: [address] [address] Performing Lab: [address] [address] CREATININE 8.25 mg/dL H 0.7-1.3 UREA NITROGEN 63.1 mg/dL H 9.0-25.0 GLUCOSE 157 mg/dL H 72-99 SODIUM 137 meq/L 136-145 POTASSIUM 4.2 meq/L 3.5-5 CHLORIDE 100 meq/L 98-107 CARBON DIOXIDE 26 meq/L 22-31 CALCIUM 9.6 mg/dL 8.4-10.4 PHOSPHOROUS 4.9 mg/dL H 2.3-4.7 ALBUMIN 3.7 g/dL 3.4-5 EGFR (CKD-EPI 2020) 6.5 LL >60 Jan 26, 2024 01:00 PM [facility] IRON/TIBC PROFILE Specimen Type: SERUM No comment entered. Ordering Provider: KYLER PURCELL Report Released Date/Time: Jan 21, 2024 03:14 PM Reporting Lab: [facility] [address] [facility] [address] Performing Lab: [address] [address] TIBC 225 ug/dL L 250-450 TRANSFERRIN 180 mg/dL 163-344 IRON SATURATION 23 20-50 IRON 52 ug/dL L 65-175 Jan 26, 2024 01:00 PM [facility] CBC Specimen Type: BLOOD No comment entered. Ordering Provider: KYLER PURCELL Report Released Date/Time: Jan 21, 2024 03:14 PM Reporting Lab: [address] [address] Performing Lab: [address] [address] WBC 7.8 10*3/uL 3.6-11.2 RBC 2.95 10*6/uL [...] 10*3/uL 0.00-0.20 Jan 21, 2024 12:55 PM [facility] PT/INR NEW (ST-PA) Specimen Type: PLASMA No comment entered. Ordering Provider: KYLER PURCELL Report Released Date/Time: Jan 21, 2024 12:43 PM Reporting Lab: [address] [address] Performing Lab: [address] [address] PROTIME 15.9 s H 9.4-12.5 INR VALUE 1.4 {INR} Jan 21, 2024 12:55 PM [facility] RENAL PANEL Specimen Type: PLASMA Comment: No hemolysis noted. Ordering Provider: KYLER PURCELL Report Released Date/Time: Jan 21, 2024 12:41 PM Reporting Lab: [address] [address] Performing Lab: [address] [address] CREATININE 8.11 mg/dL H 0.7-1.3 UREA NITROGEN 82.6 mg/dL H 9.0-25.0 GLUCOSE 114 mg/dL H 72-99 SODIUM 139 meq/L 136-145 POTASSIUM 5.1 meq/L H 3.5-5 CHLORIDE 109 meq/L H 98-107 CARBON DIOXIDE 19 meq/L L 22-31 CALCIUM 9.3 mg/dL 8.4-10.4 PHOSPHOROUS 4.1 mg/dL 2.3-4.7 ALBUMIN 3.8 g/dL 3.4-5 EGFR (CKD-EPI 2020) 6.6 LL >60 Jan 14, 2024 11:55 AM [facility] RENAL PANEL Specimen Type: PLASMA Comment: No hemolysis noted. Ordering Provider: KYLER PURCELL Report Released Date/Time: Jan 13, 2024 07:58 AM Reporting Lab: [address] [address] Performing Lab: [place] [address] [facility] [address] CREATININE 8.05 mg/dL H 0.7-1.3 UREA NITROGEN 70.7 mg/dL H 9.0-25.0 GLUCOSE 155 mg/dL H 72-99 SODIUM 140 meq/L 136-145 POTASSIUM 5.1 meq/L H 3.5-5 CHLORIDE 107 meq/L 98-107 CARBON DIOXIDE 21 meq/L L 22-31 CALCIUM 9.6 mg/dL 8.4-10.4 PHOSPHOROUS 4.8 mg/dL H 2.3-4.7 ALBUMIN 4.1 g/dL 3.4-5 EGFR (CKD-EPI 2020) 6.7 LL >60 Jan 11, 2024 11:36 AM [facility] GLUCOSE,BLOOD-poct (STL) Specimen Type: BLOOD Comment: Test Performed by: [id number] Meter #: [id number] Ordering Provider: LINOMED Report Released Date/Time: Jan 11, 2024 11:50 AM Reporting Lab: [address] [address] Performing Lab: [address] [address] GLUCOSE,BLOOD- poct (STL) 106 mg/dL H 72-Jan 11, 2024 11:07 AM [facility] GLUCOSE,BLOOD-poct (STL) Specimen Type: BLOOD Comment: Test Performed by: [id number] Meter #: [id number] Ordering Provider: LINOMED Report Released Date/Time: Jan 11, 2024 11:18 AM Reporting Lab: [address] [address] Performing Lab: [address] [address] GLUCOSE,BLOOD- poct (STL) 109 mg/dL H 72-Jan 11, 2024 05:12 AM [facility] GLUCOSE,BLOOD-poct (STL) Specimen Type: BLOOD Comment: Test Performed by: [id number] Meter #: [id number] Ordering Provider: TWOD,MED Report Released Date/Time: Jan 11, 2024 05:25 AM Reporting Lab: [place] [address] [facility] [address] Performing Lab: [place] [address] [facility] [address] GLUCOSE,BLOOD- poct (STL) 88 mg/dL 72-99 Jan 10, 2024 08:19 PM [facility] GLUCOSE,BLOOD-poct (STL) Specimen Type: BLOOD Comment: Test Performed by: [id number] Meter #: [id number] Ordering Provider: LIDIA HUYNH Report Released Date/Time: Jan 10, 2024 08:31 PM Reporting Lab: [place] [address] [facility] [address] Performing Lab: [place] [address] [facility] [address] GLUCOSE,BLOOD- poct (STL) 153 mg/dL H 72-Jan 10, 2024 04:15 PM [facility] GLUCOSE,BLOOD-poct (STL) Specimen Type: BLOOD Comment: Test Performed by: [id number] Meter #: [id number] Ordering Provider: LIDIA HUYNH Report Released Date/Time: Jan 10, 2024 05:05 PM Reporting Lab: [place] [address] [facility] [address] Performing Lab: [place] [address] [facility] [address] GLUCOSE,BLOOD- poct (STL) 84 mg/dL 72-Jan 10, 2024 11:31 AM [facility] GLUCOSE,BLOOD-poct (STL) Specimen Type: BLOOD Comment: Test Performed by: [id number] Meter #: [id number] Ordering Provider: LIDIA HUYNH Report Released Date/Time: Jan 10, 2024 12:03 PM Reporting Lab: [place] [address] [facility] [address] Performing Lab: [address] [address] GLUCOSE,BLOOD- poct (STL) 99 mg/dL 72-Jan 10, 2024 04:45 AM [facility] GLUCOSE,BLOOD-poct (STL) Specimen Type: BLOOD Comment: Test Performed by: [id number] Meter #: [id number] Ordering Provider: LIDIA HUYNH Report Released Date/Time: Jan 10, 2024 05:29 AM Reporting Lab: [address] [address] Performing Lab: [address] [address] GLUCOSE,BLOOD- poct (STL) 109 mg/dL H -Jan 09, 2024 08:08 PM [facility] GLUCOSE,BLOOD-poct (STL) Specimen Type: BLOOD Comment: Test Performed by: [id number] Meter #: [id number] Ordering Provider: LIDIA HUYNH Report Released Date/Time: Jan 09, 2024 08:28 PM Reporting Lab: [place] [address] [facility] [address] Performing Lab: [place] [address] [facility] [address] GLUCOSE,BLOOD- poct (STL) 110 mg/dL H -Jan 09, 2024 04:19 PM [facility] GLUCOSE,BLOOD-poct (STL) Specimen Type: BLOOD Comment: Test Performed by: [id number] Meter #: [id number] Ordering Provider: LIDIA HUYNH Report Released Date/Time: Jan 09, 2024 04:34 PM Reporting Lab: [place] [address] [facility] [address] Performing Lab: [address] [address] GLUCOSE,BLOOD- poct (STL) 119 mg/dL H 72-Jan 09, 2024 02:30 PM [facility] MAGNESIUM Specimen Type: PLASMA Comment: No hemolysis noted. Ordering Provider: TATI ZAVALA Report Released Date/Time: Jan 09, 2024 07:51 AM Reporting Lab: [facility] [address] [facility] [address] Performing Lab: [facility] [address] [facility] [address] MAGNESIUM 1.6 mg/dL 1.6-2.6 Jan 09, 2024 02:30 PM [facility] RENAL PANEL Specimen Type: PLASMA Comment: No hemolysis noted. Ordering Provider: TATI ZAVALA Report Released Date/Time: Jan 09, 2024 07:51 AM Reporting Lab: [place] [address] [facility] [address] Performing Lab: [place] [address] [facility] [address] CREATININE 5.13 mg/dL H 0.7-1.3 UREA NITROGEN 46.2 mg/dL H 9.0-25.0 GLUCOSE 177 mg/dL H 72-99 SODIUM 136 meq/L 136-145 POTASSIUM 4.0 meq/L 3.5-5 CHLORIDE 101 meq/L 98-107 CARBON DIOXIDE 23 meq/L 22-31 CALCIUM 8.6 mg/dL 8.4-10.4 PHOSPHOROUS 2.7 mg/dL 2.3-4.7 ALBUMIN 3.6 g/dL 3.4-5 EGFR (CKD-EPI 2020) 11.5 LL >60 Jan 09, 2024 12:27 PM [facility] GLUCOSE,BLOOD-poct (STL) Specimen Type: BLOOD Comment: Test Performed by: [id number] Meter #: [id number] Ordering Provider: LIDIA HUYNH Report Released Date/Time: Jan 09, 2024 12:38 PM Reporting Lab: [place] [address] [facility] [address] Performing Lab: [address] [address] GLUCOSE,BLOOD- poct (STL) 98 mg/dL 72-99 Jan 09, 2024 07:15 AM [facility] GLUCOSE,BLOOD-poct (STL) Specimen Type: BLOOD Comment: Test Performed by: [id number] Meter #: [id number] Ordering Provider: LIDIA HUYNH Report Released Date/Time: Jan 09, 2024 07:58 AM Reporting Lab: [address] [address] Performing Lab: [address] [address] GLUCOSE,BLOOD- poct (STL) 86 mg/dL 72-99 Jan 08, 2024 09:04 PM [facility] GLUCOSE,BLOOD-poct (STL) Specimen Type: BLOOD Comment: Test Performed by: [id number] Meter #: [id number] Ordering Provider: LIDIA HUYNH Report Released Date/Time: Jan 08, 2024 09:47 PM Reporting Lab: [place] [address] [facility] [address] Performing Lab: [address] [address] GLUCOSE,BLOOD- poct (STL) 90 mg/dL 72-99 Jan 08, 2024 09:01 PM [facility] HEP B CORE AB TOTAL. (STL) Specimen Type: SERUM No comment entered. Ordering Provider: EFREN TAYLOR Report Released Date/Time: Jan 08, 2024 02:35 PM Reporting Lab: [place] [address] [facility] [address] Performing Lab: [address] [address] HEP B CORE AB TOTAL. (STL) Nonreactive Nonreactive Jan 08, 2024 09:01 PM [facility] HEPATITIS B SURFACE AB PNL Specimen Type: SERUM No comment entered. Ordering Provider: EFREN TAYLOR Report Released Date/Time: Jan 08, 2024 02:35 PM Reporting Lab: [address] [address] Performing Lab: [address] [address] HEP B Surface Ab-HBsAB (STL) REACTIVE m[IU]/mL Nonreactive HEP Bs AB-QUANT (STL) 63.22 m[IU]/mL Jan 08, 2024 09:01 PM [facility] HEP HB S Ag (AUSRIA) (STL) Specimen Type: SERUM No comment entered. Ordering Provider: EFREN TAYLOR Report Released Date/Time: Jan 08, 2024 02:35 PM Reporting Lab: [address] [address] Performing Lab: [address] [address] HEP HB S Ag (AUSRIA) (STL) Nonreactive Nonreactive Jan 08, 2024 04:47 PM [facility] GLUCOSE,BLOOD-poct (L) Specimen Type: BLOOD Comment: Test Performed by: [id number] Meter #: [id number] Ordering Provider: LIDIA HUYNH Report Released Date/Time: Jan 08, 2024 05:09 PM Reporting Lab: [place] [address] [facility] [address] Performing Lab: [place] [address] [facility] [address] GLUCOSE,BLOOD- poct (STL) 95 mg/dL 72-99 Jan 08, 2024 11:26 AM [facility] GLUCOSE,BLOOD-poct (STL) Specimen Type: BLOOD Comment: Test Performed by: [id number] Meter #: [id number] Ordering Provider: LIDIA HUYNH Report Released Date/Time: Jan 08, 2024 11:37 AM Reporting Lab: [place] [address] [facility] [address] Performing Lab: [address] [address] GLUCOSE,BLOOD- poct (STL) 105 mg/dL H 72-99 Jan 08, 2024 07:01 AM [facility] RENAL PANEL Specimen Type: PLASMA Comment: No hemolysis noted. Ordering Provider: LIZETTE GRIFFIN Report Released Date/Time: Jan 07, 2024 11:24 PM Reporting Lab: [place] [id number] [facility] [address] Performing Lab: [address] [address] CREATININE 8.50 mg/dL H 0.7-1.3 UREA NITROGEN 88.2 mg/dL H 9.0-25.0 GLUCOSE 70 mg/dL L 72-99 SODIUM 139 meq/L 136-145 POTASSIUM 5.4 meq/L H 3.5-5 CHLORIDE 110 meq/L H 98-107 CARBON DIOXIDE 19 meq/L L 22-31 CALCIUM 9.4 mg/dL 8.4-10.4 PHOSPHOROUS 5.1 mg/dL H 2.3-4.7 ALBUMIN 3.8 g/dL 3.4-5 EGFR (CKD-EPI 2020) 6.3 LL >60 Jan 08, 2024 06:37 AM [facility] GLUCOSE,BLOOD-poct (STL) Specimen Type: BLOOD Comment: Test Performed by: [id number] Meter #: [id number] Ordering Provider: LIDIA HUYNH Report Released Date/Time: Jan 08, 2024 06:48 AM Reporting Lab: [address] [address] Performing Lab: [address] [address] GLUCOSE,BLOOD- poct (STL) 86 mg/dL 72-99 Jan 07, 2024 11:58 PM [facility] RENAL PANEL Specimen Type: PLASMA Comment: No hemolysis noted. Ordering Provider: LIZETTE GRIFFIN Report Released Date/Time: Jan 07, 2024 11:38 PM Reporting Lab: [address] [address] Performing Lab: [address] [address] CREATININE 8.68 mg/dL H 0.7-1.3 UREA NITROGEN 92.6 mg/dL H 9.0-25.0 GLUCOSE 143 mg/dL H 72-99 SODIUM 138 meq/L 136-145 POTASSIUM 5.0 meq/L 3.5-5 CHLORIDE 111 meq/L H 98-107 CARBON DIOXIDE 17 meq/L L 22-31 CALCIUM 8.8 mg/dL 8.4-10.4 PHOSPHOROUS 3.8 mg/dL 2.3-4.7 ALBUMIN 3.8 g/dL 3.4-5 EGFR (CKD-EPI 2020) 6.1 LL >60 Jan 07, 2024 11:36 PM [facility] GLUCOSE,BLOOD-poct (STL) Specimen Type: BLOOD Comment: Test Performed by: [id number] Meter #: [id number] Ordering Provider: LIDIA MOSCOSO Report Released Date/Time: Jan 07, 2024 11:47 PM Reporting Lab: [address] [address] Performing Lab: [address] [address] GLUCOSE,BLOOD- poct (STL) 157 mg/dL H 72-99 Jan 07, 2024 11:30 PM [facility] MRSA SURVL NARES DNA Specimen Type: [...] Jan 07, 2024 11:24 PM Reporting Lab: [facility] [address] [facility] [address] Performing Lab: [address] [address] MRSA SURVL NARES DNA Negative Negative Jan 07, 2024 09:08 PM [facility] POTASSIUM Specimen Type: PLASMA Comment: No hemolysis noted. Ordering Provider: MARTY CALI Report Released Date/Time: Jan 07, 2024 08:38 PM Reporting Lab: [facility] [address] [facility] [address] Performing Lab: [address] [address] POTASSIUM 5.7 meq/L H 3.5-5 Jan 07, 2024 07:30 PM [facility] URINALYSIS (STL-PB) Specimen Type: URINE No comment entered. Ordering Provider: MARTY CALI Report Released Date/Time: Jan 07, 2024 05:18 PM Reporting Lab: [address] [address] Performing Lab: [address] [address] URINE COLOR Colorless Yellow U.BILIRUBIN Negative mg/dL [...] 1.015 1.005-1.029 Jan 07, 2024 05:30 PM [facility] BRAIN NATRIURETIC PEPTIDE Specimen Type: PLASMA No comment entered. Ordering Provider: GRACIELA MANN Report Released Date/Time: Jan 07, 2024 04:59 PM Reporting Lab: [address] [phone] Performing Lab: [address] [phone] BRAIN NATRIURETIC PEPTIDE 59.0 pg/mL 0-100 Jan 07, 2024 05:30 PM [facility] COVID-19 DIAGNOSTIC (FLU/RSV)(STL) Specimen Type: NASOPHARYNX [...] Jan 07, 2024 04:59 PM Reporting Lab: [place] [address] Performing Lab: [place] [address] INFLUENZA A Negative Negative INFLUENZA B Negative Negative COVID-19 (STL-PB) Not Detected Not Detected RSV (Cepheid) NEGATIVE Negative Jan 07, 2024 05:30 PM [facility] COMPREHENSIVE METABOLIC PANEL Specimen Type: PLASMA Comment: Aspartate Transaminase result may show positive bias due to hemolysis. K result canceled due to hemolysis. Specimen moderately hemolyzed. K cancelled due to moderate hemolysis. Called to : Phillip Cee RN at: 1902 on: 01/07/2024 by: [place] Ordering Provider: GRACIELA MANN Report Released Date/Time: Jan 07, 2024 04:59 PM Reporting Lab: [address] [phone] Performing Lab: [place] [phone] CREATININE 8.88 mg/dL H 0.7-1.3 UREA NITROGEN [...] LL >60 Jan 07, 2024 05:30 PM [facility] CBC Specimen Type: BLOOD No comment entered. Ordering Provider: GRACIELA MANN Report Released Date/Time: Jan 07, 2024 04:59 PM Reporting Lab: [address] [phone] Performing Lab: [address] [phone] WBC 9.2 10*3/uL 3.6-11.2 RBC 3.81 10*6/uL [...] 10*3/uL 0.00-0.20 Dec 11, 2023 12:02 PM [facility] PTH, INTACT (STL) Specimen Type: SERUM No comment entered. Ordering Provider: KYLER PURCELL Report Released Date/Time: Dec 10, 2023 03:57 PM Reporting Lab: [address] [phone] Performing Lab: [address] [phone] PTH, INTACT (STL) 527.70 pg/mL H 8.7-77.7 Dec 11, 2023 12:02 PM [facility] CBC Specimen Type: BLOOD No comment entered. Ordering Provider: KYLER PURCELL Report Released Date/Time: Dec 10, 2023 03:57 PM Reporting Lab: [address] [phone] Performing Lab: [address] [phone] WBC 8.4 10*3/uL 3.6-11.2 RBC 3.84 10*6/uL [...] 10*3/uL 0.00-0.20 Dec 11, 2023 12:02 PM [facility] RENAL PANEL Specimen Type: PLASMA Comment: No hemolysis noted. Ordering Provider: KYLER PURCELL Report Released Date/Time: Dec 10, 2023 03:57 PM Reporting Lab: [address] [phone] Performing Lab: [address] [phone] CREATININE 8.13 mg/dL H 0.7-1.3 UREA NITROGEN 69.9 mg/dL H 9.0-25.0 GLUCOSE 163 mg/dL H 72-99 SODIUM 140 meq/L 136-145 POTASSIUM 5.4 meq/L H 3.5-5 CHLORIDE 106 meq/L 98-107 CARBON DIOXIDE 22 meq/L 22-31 CALCIUM 8.6 mg/dL 8.4-10.4 PHOSPHOROUS 3.7 mg/dL 2.3-4.7 ALBUMIN 3.9 g/dL 3.4-5 EGFR (CKD-EPI 2020) 6.6 LL >60 Dec 11, 2023 12:02 PM [facility] MAGNESIUM Specimen Type: PLASMA No comment entered. Ordering Provider: KYLER PURCELL Report Released Date/Time: Dec 11, 2023 10:17 AM Reporting Lab: [facility] [address] [facility] [id number] Performing Lab: [facility] [address] [facility] [id number] MAGNESIUM 1.3 mg/dL L 1.6-2.6 Vital Signs: All taken on the encounter date This section contains inpatient and outpatient Vital Signs collected on the date of the Encounter. Date/Time Temperature Pulse Blood Pressure Respiratory Rate SP02 Pain Height Weight Body Mass Index Source Jan 07, 2024 11:57 PM 7 [facility] Jan 07, 2024 11:27 PM 97.6 68 163/77 18 95 7 227.5 34 [facility] Jan 07, 2024 11:00 PM 64 153/57 [facility] Jan 07, 2024 10:30 PM 63 152/58 [facility] Jan 07, 2024 10:00 PM 63 152/80 [facility] Social History: Smoking Status (Most current) and Tobacco Use (All prior to encounter date) This section includes the most current, and the historical, smoking and tobacco- related health factors from the [place] facility where the Encounter took place. Current Smoking Status This section includes the most current smoking, or tobacco-related health factor, from the [place] facility where the Encounter took place. Date/Time Current Smoking Status Comment Ester ity Jun 21, 2023 01:14 PM ORYX ADMIT TOBACCO SCREEN NO [facility] Tobacco Use History This section includes a history of the smoking, or tobacco-related health factors, that were collected on or before the date of the Encounter. The data comes from the [place] facility where the Encounter took place. Date/Time Smoking Status/Tobacco Use Comment F acility Dec 12, 2022 04:00 PM ORYX ADMIT TOBACCO SCREEN NO [facility] Jun 25, 2022 03:24 PM VA-TOBACCO FORMER USER [facility] Jun 25, 2022 03:24 PM VA-TOBACCO QUIT 15 YRS OR MORE [facility] Dec 23, 2021 04:59 PM ORYX ADMIT TOBACCO SCREEN REFUSED [facility] May 24, 2020 11:27 PM ORYX ADMIT TOBACCO SCREEN NO [facility] Dec 12, 2019 10:24 AM VA-TOBACCO FORMER USER [facility] Dec 12, 2019 10:24 AM VA-TOBACCO QUIT 15 YRS OR MORE [facility] Aug 03, 2019 02:11 AM ORYX ADMIT TOBACCO SCREEN REFUSED [facility] Oct 12, 2018 01:14 AM QUIT TOBACCO >7 YEARS AGO [facility] Oct 11, 2018 03:33 PM ORYX ADMIT TOBACCO SCREEN NO [facility] Sep 07, 2018 09:13 PM ORYX ADMIT TOBACCO SCREEN NO [facility] Sep 07, 2018 07:52 PM QUIT TOBACCO >7 YEARS AGO [facility] Advance Directives: All historical and current Section Date Range: From patient's date of to the date document was created. This section includes ALL of a patient's completed or amended [place] Advance and Rescinded Directives. The entries below indicate that a directive exists for the patient, but an actual copy is not included with this document. The data comes from all [place] facilities. Date Advance Directives Provider Source Dec 17, 2022 ADVANCE DIRECTIVE BIJAN MERRITT [facility] Feb 09, 2020 ADVANCE DIRECTIVE DISCUSSION LUCIANOMELY KERN Manjinder [facility] Feb 02, 2018 ADVANCE DIRECTIVE BEAU ALTAMIRANO [facility] Nov 29, 2006 ADVANCE DIRECTIVE MARELY CHACON [facility] Radiology Reports: +/- 30 days of [...] the Encounter. The data comes from all [place] treatment facilities. Date/Time Radiology Report Provider Source Jan 07, 2024 08:01 PM CHEST PORTABLE: NAGI KATZ [id number] -[id number] M Exm Date: JAN 07, 2024@20:01 Req Phys: MARTY CALI Loc: -EMERGENCY DEPT 3RD SHIFT (R Img Loc: -MAIN RADIOLOGY SUITE Service: Unknown (Case [id number] COMPLETE) CHEST PORTABLE (RAD Detailed) CPT:36748 Proc Modifiers : Portable Reason for Study: weakness, ESRD Clinical History: Report Status: Verified Date Reported: JAN 07, 2024 Date Verified: JAN 07, 2024 Garment Turner E-Sig: Report: CHEST PORTABLE HISTORY: weakness, ESRD COMPARISON: July 26, 2023 TECHNIQUE: One view of the chest was performed at the local [facility] facility. images were received by the [place] National Teleradiology Program (NTP) for interpretation. FINDINGS: Bilateral peribronchial thickening. Patchy bilateral lower lobe lung opacities. Mildly tortuous aorta. No acute bony abnormalities. Impression: 1. Bilateral peribronchial thickening. 2. Patchy bilateral lung opacities likely represent atelectasis. 3. No pneumothorax. READING PHYSICIAN: Madhu Patton M.D. -[id number] 01/07/2024 19:10 PDT [facility] National Teleradiology Program [phone] (For Medical Practitioner Use Only) Attention Patients / Veterans: If you have questions or concerns about these test results, please contact your ordering provider or primary care team. Primary Interpreting Staff: RADIOLOGY,OUTSIDE SERVICE, Staff Physician / RADIOLOGY,OUTSIDE SERVICE [facility] Encounter Notes: All associated encounter notes This section contains the clinical notes associated to the Encounter. Date/Time Encounter Note(s) Provider Source Jan 07, 2024 09:22 PM NEPHROLOGY INPATIENT NOTE: LOCAL TITLE: NEPHROLOGY INPATIENT FOLLOW UP STL STANDARD TITLE: NEPHROLOGY INPATIENT NOTE DATE OF NOTE: JAN 07, 2024@21:22 ENTRY DATE: JAN 07, 2024@21:24:08 AUTHOR: YIN WU COSIGNER: RONALD RUST URGENCY: STATUS: COMPLETED Mr. Katz is a 68 yo with pmhx of HTN, DM, HLD, gout, flip, chronic a fib and trigger finger and ckd 5 presented to the ED for progressive symptoms of fatigue, lethargy, poor appetite. denied sob or chest pain as per ED. In the ED, vitals with in normal. As per ED, EKG not concerning for ST wave changes and CXR non concerning. Labs showed worsening BUN/Creatinine and acidosis 13 compared to 22, not sure if patient has been taking sodium bicarb, Sample was hemolyzed so K not resulted.As per ED patient has left AVF Please give NaHCO3 50meq bolus x2 and start on NaHCO3 1950mg tid Please obtain whole blood potassium follow up on K, if K > 5.0 please give Albuterol nebulizer, insulin dextrose and lokelme 10 mg. if K> 6.5 please inform Nephrology Plan to initiate dialysis in AM Please keep NPO after MN. plan discussed with Dr. King Lamb. /edwar/ Yin Wu MD Nephrology Fellow Signed: 01/07/2024 21:42 /edwar/ RONALD RUST SPEECH LANGUAGE PATHOLOGY ASSISTANT Cosigned: 01/09/2024 10:53 Receipt Acknowledged By: 01/08/2024 07:27 /edwar/ Efren Taylor MD Nephrology Fellow YIN WU [facility] Jan 07, 2024 07:37 PM NURSING NOTE: LOCAL TITLE: [place] PERSONAL EFFECTS STL STANDARD TITLE: NURSING NOTE DATE OF NOTE: JAN 07, 2024@19:37 ENTRY DATE: JAN 07, 2024@19:37:21 AUTHOR: RENETTA JACOBSEN I EXP COSIGNER: URGENCY: STATUS: COMPLETED [place] PERSONAL EFFECTS STL Has ADDENDA PERSONAL EFFECTS Patient Valuables Observed: cell phone, hat, glasses, clothes, shoes, wallet with $7 max. /edwar/ RENETTA JACOBSEN MPH, BSN, RN REGISTERED NURSE Signed: 01/07/2024 19:37 01/08/2024 ADDENDUM STATUS: COMPLETED PERSONAL EFFECTS Contraband Check: Advised of prohibited contraband Medication Check: Denies medication on person Prosthetic Check: Glasses Personal Items: Patient/Family advised that [facility] not responsible for loss of any personal effects or valuables., Patient/Family advised of locker availability., Patient chooses to keep belongings at bedside. /es/ BUFFY DANIEL RN REGISTERED NURSE Signed: 01/08/2024 00:50 RENETTA JACOBSEN I [facility] Jan 07, 2024 07:36 PM NURSING NOTE: LOCAL TITLE: MIAES NSG IV INSERTION AND MAINTENANCE STANDARD TITLE: NURSING NOTE DATE OF NOTE: JAN 07, 2024@19:36 ENTRY DATE: JAN 07, 2024@19:36:34 AUTHOR: RENETTA JACOBSEN I EXP COSIGNER: URGENCY: STATUS: COMPLETED Version 2.2 Charting in accordance with [place] APPROVED [place] STANDARD (MIAES) ACUTE INPATIENT/REHABILITATION NURSING ADMISSION SCREENING, ASSESSMENT, AND STANDARDS OF CARE ==== IV Line Insertion and Maintenance ==== ==== Peripheral IV ==== Line #1: Insertion: Date/Time: Dec@17:30 Inserted by (name): RICHARD Lewis Location: Right, Forearm Gauge: 20 Assessment: Location: Forearm Gauge: 20 Dressing Condition: Clean, dry, intact Transparent dressing Site Condition: No redness, swelling, pain Line Status: Flushed Positive blood return /patrice JACOBSEN, MPH, BSN, RN REGISTERED NURSE Signed: 01/07/2024 19:37 RENETTA JACOBSEN I [facility] Jan 07, 2024 07:35 PM ACCOUNTING OF DISCLOSURES NOTE: LOCAL TITLE: STATE PRESCRIPTION DRUG MONITORING PROGRAM STANDARD TITLE: ACCOUNTING OF DISCLOSURES NOTE DATE OF NOTE: JAN 07, 2024@19:35:25 ENTRY DATE: JAN 07, 2024@19:35:25 AUTHOR: MARTY CALI EXP COSIGNER: URGENCY: STATUS: COMPLETED This PDMP query was submitted by Marty Cali MD. The clinical justification for this PDMP query is to review controlled substances prescribed outside of the [place], and any additional information that may become available, as an important component of standard clinical care, and in accordance with [facility] policy. Patient information was shared with the PDMP [place]. No prescription(s) for controlled substances outside the [place] were found in the last 90 days. /edwar/ Marty Cali MD Staff Physician Signed: 01/07/2024 19:35 MARTY CALI [facility] Jan 07, 2024 07:35 PM INFECTIOUS DISEASE NOTE: LOCAL TITLE: COVID-19 SPECIMEN COLLECTION AND DISPOSITION [facility] STANDARD TITLE: INFECTIOUS DISEASE NOTE DATE OF NOTE: JAN 07, 2024@19:35 ENTRY DATE: JAN 07, 2024@19:35:52 AUTHOR: RENETTA JACOBSEN I EXP COSIGNER: URGENCY: STATUS: COMPLETED COVID-19 Specimen Collection and Disposition Verbal consent has been obtained prior to the specimen collection. No consent is required for post-mortem testing. Patient Response: Tolerated well, without complication Date and time of collection: Dec@17:30 Location of testing: Outpatient clinic Collection Method: Nasopharyngeal Reporting of Complications: Disposition of Specimen: [facility] Lab Disposition of patient: Remained in current location, under care of provider Patient/Caregiver Education: Yes /edwar/ RENETTA JACOBSEN, MPH, BSN, RN REGISTERED NURSE Signed: 01/07/2024 19:36 RENETTA JACOBSEN I [facility] Jan 07, 2024 05:22 PM PHYSICIAN EMERGENCY DEPT NOTE: LOCAL TITLE: EMERGENCY DEPARTMENT STL STANDARD TITLE: PHYSICIAN EMERGENCY DEPT NOTE DATE OF NOTE: JAN 07, 2024@17:22 ENTRY DATE: JAN 07, 2024@17:22:08 AUTHOR: MARTY CALI EXP COSIGNER: URGENCY: STATUS: COMPLETED EMERGENCY DEPARTMENT STL Has ADDENDA TRIAGE CHIEF COMPLAINT: Generalized weakness HPI: Patient is a 68-year-old male patient with past medical history of traumatic bowel injury in 2004 s/p colostomy, then colostomy takedown, ventral hernia repair with mesh placement, complicated by complete SBO 2020 due to surgical adhesions s/p exploratory laparotomy and adhesion takedown; hx of TIIDM, CKD stage V (not on dialysis, EGFR ~8), afib s/p ablation x3, currently on apixaban, and gout, presented to the emergency room with complaints of having generalized weakness for several weeks. Patient has near end-stage renal failure, however he has not been on dialysis. Denies any vomiting or diarrhea. Denies any chest pain, denies any syncope. Denies any blood in the stool. Appetite is reported as being decreased. REVIEW OF SYSTEMS: See HPI for further details. All 10 systems reviewed and otherwise negative unless otherwise detailed herein. PAST MEDICAL HISTORY: 1) Type II diabetes mellitus uncontrolled 2) [...] disease 20) Superficial incisional surgical site infection CURRENT MEDICATIONS: Active Outpatient Medications (including Supplies): Active Outpatient Medications Status 1) APIXABAN 5MG TAB TAKE ONE TABLET BY MOUTH TWICE A DAY ACTIVE FOR ANTICOAGULATION 2) ATORVASTATIN CALCIUM 80MG TAB TAKE ONE TABLET BY ACTIVE (S) MOUTH EVERY EVENING FOR CHOLESTEROL. REPORT ANY UNEXPLAINED MUSCLE PAIN/WEAKNESS TO PROVIDER. 3) CALCITRIOL 0.5MCG CAP TAKE ONE CAPSULE BY MOUTH ONCE ACTIVE (S) A DAY 4) CARVEDILOL 25MG TAB TAKE [...] A DAY TO USE WITH INSULIN 8) INSULIN,ASPART(EQV-NOVLG)100UN /ML FLXPEN INJECT 10 ACTIVE UNITS UNDER THE [...] INJ PEN 3ML INJECT 1MG UNDER ACTIVE (S) THE SKIN EVERY WEEK FOR DIABETES 16) SODIUM BICARBONATE 650MG TAB TAKE TWO TABLETS BY ACTIVE MOUTH THREE TIMES A DAY FOR STOMACH ACID LOWERING 17) TAMSULOSIN HCL 0.4MG CAP TAKE ONE CAPSULE BY MOUTH ACTIVE TWICE A DAY FOR BENIGN PROSTATIC HYPERPLASIA APPROXIMATELY 30 MINUTES AFTER THE SAME MEAL EACH DAY I have reviewed the patient's medication list with the patient and/or his/her care-special needs child caregiver. Any medication discrepancies have been resolved. Patient will be provided with an updated list of his/her medication(s). SURGICAL HISTORY: not pertinent FAMILY HISTORY: not pertinent SOCIAL HISTORY: Social History Main Topics: Smoking status: No data available for: Current Tobacco User Alcohol Use: not indorsed Negative mg/dL (06/21/23 19:45) Illicit Drug Use: not indorsed Sexual Activity: Other Topics of Concern: ALLERGIES: Review of patient's allergies indicates: MORPHINE PHYSICAL EXAM: VITAL SIGNS: 128/68 (01/07/2024 16:55)58 (01/07/2024 16:55)97% (01/07/2024 16:55)97.4 F [36.3 C] (12/11/2023 10:07)17 (01/07/2024 16:55)The OBJECT WEIGHT LAST 3 was NOT found...Contact IRM. MAThe OBJECT was NOT found...Contact IRM.PAIN ASSESSMENTThe OBJECT was NOT found...Contact IRM. Measurement DT PAIN 01/07/2024 16:55 4 CONSTITUTIONAL: No acute distress, Non-toxic appearance HENT: airway patent, oropharynx clear EYES: Conj pink, sclera clear NECK: Normal range of motion, No tenderness, Supple, No stridor, No LAD. CARDIOVASCULAR: Normal heart rate, Normal rhythm, No murmurs, No rubs, No gallops. PULMONARY/CHEST: CTA bilaterally, thorax stable without tenderness ABDOMEN: Bowel sounds normal, Soft, flat, No tenderness, No bruit, No masses, No pulsatile masses BACK: No tenderness, No CVA tenderness : RECTAL: EXTREMITIES: Left arm fistula with good thrill and bruit LYMPHATIC: No LAD appreciated NEUROLOGIC: Alert & oriented x 3, Normal motor function, Normal gait, no ataxia, No focal deficits appreciated on cursory screening exam SKIN: Warm, Dry, No erythema, No rash LABS: SODIUM 135 L mEq/L 136 - 145 POTASSIUM canc H* mEq/L 3.5 - 5 CHLORIDE 111 H mEq/L 98 - 107 UREA NITROGEN 93.0 H mg/dL 9.0 - 25.0 CREATININE 8.88 H mg/dL 0.7 - 1.3 CALCIUM 8.9 mg/dL 8.4 - 10.4 PROTEIN 7.6 g/dL 6 - 8.6 ALBUMIN 4.0 g/dL 3.4 - 5 ALKALINE PHOSPHATASE 100 U/L 40 - 150 ALT/SGPT 17 U/L 8 - 40 AST/SGOT 18 U/L 5 - 34 TOTAL BILIRUBIN 0.4 mg/dL 0.2 - 1.2 CARBON DIOXIDE 13 L mEq/L 22 - 31 GLUCOSE 110 H mg/dL 72 - 99 EGFR (CKD-EPI 2020) 5.9 L* Ref: >=60 WBC 9.2 10*3/uL 3.6 - 11.2 RBC 3.81 L 10*6/uL 4.10 - 5.70 HGB 11.5 L g/dL 13.1 - 16.8 HCT 34.3 L % 38.2 - 48.4 MCV 90.0 fL 80.0 - 100.0 MCH 30.2 pg 27.0 - 34.0 MCHC 33.5 g/dL 33.0 - 36.0 RDW 13.8 % 11.8 - 15.1 PLT 281 10*3/uL 150 - 400 MPV 11.5 H fL 7.5 - 11.2 NEUTROPHILS, AUTO % 73 % LYMPHOCYTES, AUTO % 15 % MONOCYTES, AUTO % 7 % EOSINOPHILS, AUTO % 4 % BASOPHILS, AUTO % 0 % NEUTROPHILS, ABSOLUTE 6.64 10*3/uL 2.10 - 8.00 LYMPHOCYTES, ABSOLUTE 1.41 10*3/uL 0.77 - 4.50 MONOCYTES, ABSOLUTE 0.67 10*3/uL 0.19 - 0.80 EOSINOPHILS, ABSOLUTE 0.35 10*3/uL 0.00 - 0.60 BASOPHILS, ABSOLUTE 0.03 10*3/uL 0.00 - 0.20 I received patient's RADIOLOGY: ECG IMPRESSION: ED COURSE & MEDICAL DECISION MAKING: Nursing notes, medications, vital signs, allergies and pertinent labs & imaging studies reviewed (see chart for details) with lab results reviewed with patient/family and radiology results reviewed with patient/family. Stable, alert, nontoxic, nonfocal with clinically apparent ESRD with worsening renal function, likely near dialysis. His symptoms are likely due to his advanced renal failure. Discussed case with nephrology on-call. Admit to medicine service. HOSPICE EDUCATOR SERVICE/TIME: MEDICATIONS GIVEN IN ED: [X] YES [ ] NO DIFFERENTIAL DIAGNOSES CONSIDERED: DECISION to ADMIT / DISCHARGE TIME: 1730 SMOKING CESSATION RECOMMENDATION: N/A ABNORMAL BLOOD PRESSURE: Stable BP DISPOSITION CONDITION:[ ] Improved [X] Unchanged [ ] Deteriorated CLINICAL IMPRESSION: 1 -ESRD with generalized weakness, not yet on dialysis 2 - 3 - DISCHARGE INSTRUCTIONS AND PATIENT-DIRECTED FOLLOW-UP RECOMMENDATIONS: Admit to medicine service ADDITIONAL SIGNATURE PCP: [x ] YES [ ] NO [ ] not listed Active Outpatient Medications (including Supplies): Active Outpatient Medications Status 1) APIXABAN 5MG TAB TAKE ONE TABLET BY MOUTH TWICE A DAY ACTIVE FOR ANTICOAGULATION 2) ATORVASTATIN CALCIUM 80MG TAB TAKE ONE TABLET BY ACTIVE (S) MOUTH EVERY EVENING FOR CHOLESTEROL. REPORT ANY UNEXPLAINED MUSCLE PAIN/WEAKNESS TO PROVIDER. 3) CALCITRIOL 0.5MCG CAP TAKE ONE CAPSULE BY MOUTH ONCE ACTIVE (S) A DAY 4) CARVEDILOL 25MG TAB TAKE [...] A DAY TO USE WITH INSULIN 8) INSULIN,ASPART(EQV-NOVLG)100UN /ML FLXPEN INJECT 10 ACTIVE UNITS UNDER THE [...] INJ PEN 3ML INJECT 1MG UNDER ACTIVE (S) THE SKIN EVERY WEEK FOR DIABETES 16) SODIUM BICARBONATE 650MG TAB TAKE TWO TABLETS BY ACTIVE MOUTH THREE TIMES A DAY FOR STOMACH ACID LOWERING 17) TAMSULOSIN HCL 0.4MG CAP TAKE ONE CAPSULE BY MOUTH ACTIVE TWICE A DAY FOR BENIGN PROSTATIC HYPERPLASIA APPROXIMATELY 30 MINUTES AFTER THE SAME MEAL EACH DAY /edwar/ Marty Cali MD Staff Physician Signed: 01/07/2024 21:24 Receipt Acknowledged By: 01/08/2024 14:58 /es/ NEERU SNOW, MSN, GUITAR REPAIRER-C, GUITAR REPAIRER-BC Nurse Practitioner for BLU MARTE 01/08/2024 00:53 /es/ Crystal Lawrence MD, PhD Staff Physician 01/08/2024 15:29 /es/ ARCHIE BOLTON, RN, BSN Registered Nurse for WAN CASAREZ 01/08/2024 ADDENDUM STATUS: COMPLETED Pt signed out to me at 9p. Follow up K returned 5.7. prior MD had already verified EKG without peaked t waves. pt had already received 2 amps of bicarb IV for bicarb of 13 which shifts K so no further shifting meds needed. Attempted to order lokelma but orders blocked as other providers placing orders. Pt heading upstairs, he looks well, in wheelchair, no distress. Discussed with med team to order lokelma and recheck bmp at this time. repeat K returned 5.0 without further interventions. /edwar/ Crystal Lawrence MD, PhD Staff Physician Signed: 01/08/2024 00:59 MARTY CALI [facility] Jan 07, 2024 04:55 PM EMERGENCY DEPT TRIAGE NOTE: LOCAL TITLE: EMERGENCY DEPARTMENT TRIAGE NOTE STANDARD TITLE: EMERGENCY DEPT TRIAGE NOTE DATE OF NOTE: JAN 07, 2024@16:55 ENTRY DATE: JAN 07, 2024@16:55:51 AUTHOR: JEANCARLOS ZUNIGA EXP COSIGNER: URGENCY: STATUS: COMPLETED EMERGENCY DEPARTMENT TRIAGE NOTE Has ADDENDA Emergency Department/Urgent Care Center Triage Patient age:68 Sex: MALE On arrival patient was: AMBULATORY Patient phone number: Allergies: MORPHINE Subjective/Chief Complaint: weakness x weeks Objective: states he has been feeling weak and fatigued over the last few weeks. no chest pains. no sob. does feel dizzy at times. Has left sided av fistula that is not in use yet. The patient is not a fall risk. BP: 128/68 P: 58 R: 17 WT: T: HT: Sepsis Screening Evaluation Emergency Severity Index (VEDA) level Level 3 Current Medications: Active Outpatient Medications (including Supplies): Active Outpatient Medications Status 1) APIXABAN 5MG TAB TAKE ONE TABLET BY MOUTH TWICE A DAY ACTIVE FOR ANTICOAGULATION 2) ATORVASTATIN CALCIUM 80MG TAB TAKE ONE TABLET BY ACTIVE (S) MOUTH EVERY EVENING FOR CHOLESTEROL. REPORT ANY UNEXPLAINED MUSCLE PAIN/WEAKNESS TO PROVIDER. 3) CALCITRIOL 0.5MCG CAP TAKE ONE CAPSULE BY MOUTH ONCE ACTIVE (S) A DAY 4) CARVEDILOL 25MG TAB TAKE [...] A DAY TO USE WITH INSULIN 8) INSULIN,ASPART(EQV-NOVLG)100UN /ML FLXPEN INJECT 10 ACTIVE UNITS UNDER THE [...] INJ PEN 3ML INJECT 1MG UNDER ACTIVE (S) THE SKIN EVERY WEEK FOR DIABETES 16) SODIUM BICARBONATE 650MG TAB TAKE TWO TABLETS BY ACTIVE MOUTH THREE TIMES A DAY FOR STOMACH ACID LOWERING 17) TAMSULOSIN HCL 0.4MG CAP TAKE ONE CAPSULE BY MOUTH ACTIVE TWICE A DAY FOR BENIGN PROSTATIC HYPERPLASIA APPROXIMATELY 30 MINUTES AFTER THE SAME MEAL EACH DAY Current Problems: 1) Type II diabetes mellitus uncontrolled 2) [...] disease 20) Superficial incisional surgical site infection Suicide Screen: [place] Suicide Severity Rating Scale (C-SSRS) screener 1. Over the past month, have you [...] required due to responses to other questions. /edwar/ JEANCARLOS ZUNIGA RN Signed: 01/07/2024 16:58 01/07/2024 ADDENDUM STATUS: COMPLETED 1725 #20 PAL established to the R FA w/ pos bld rtn and flushes without difficulty. Drssg c/d/i and without s/s of infiltration. Blood samples and nasopharyngeal swab collected without complications and sent to lab. /edwar/ BLANCHE KAMARAN, RN REGISTERED NURSE Signed: 01/07/2024 17:27 01/07/2024 ADDENDUM STATUS: COMPLETED 1920 Pt to room 109. Blood Pressure: 156/65 Pulse: 58 Pulse Oximetry: 100% 1929 Py placed on continuous vs monitor. Pt requesting pain medications. Dr. Cali notified. Blood Pressure: 156/67 Pulse: 63 Pulse Oximetry: 100% 1949 Pt's departs. [address] Cali that pt requesting pain medication. Blood Pressure: 156/74 Pulse: 62 Pulse Oximetry: 100% 2009 Chest x ray completed. 2010 Pt given medication per physician order: ACETAMINOPHEN/HYDROCODONE TAB ONE TABLET (5MG/325MG EA) PO ONE-TIME STAT PT given sandwich, osmel crackers, juice per request. denies further needs att. 2029 Blood Pressure: 149/83 Pulse: 62 Pulse Oximetry: 97% 2099 EKG completed, given to Dr. Cali. potassium completed. Blood Pressure: 156/80 Pulse: 63 Pulse Oximetry: 100% 2129 Blood Pressure: 162/67 Pulse: 63 Pulse Oximetry: 100% 2199 Blood Pressure: 152/80 Pulse: 63 Pulse Oximetry: 100% 2209/2219 Pt given medication per physician order: SODIUM BICARBONATE 1 mEq/mL INJ,SOLN 84MG/ML 100mEq = 2 syr = 100ml IV ONE- TIME Error noticed in pyxis, sodium bicarb in pocket 3 but listed as pocket 9. Dual verified that medication is correct with Jacinda charge nurse. Will enter JP. Pt requesting pain medication, Dr. Lawrence notified. 2223 Attempted to call report to RICHARD Wong, 7N. RN in pt room att and will call ER back. 2229 Blood Pressure: 152/58 Pulse: 63 Pulse Oximetry: 99% 2256 Attempted to call report to RICHARD Wong, 7N. Has an orientee who will be taking report and is finishing something up, will take report after this. 2299 Report given to RICHARD Gimenez, 7N. All questions answered at time of report. Blood Pressure: 153/57 Pulse: 64 Pulse Oximetry: 100% [address] Lawrence for pt pain medication, per Dr. Lawrence, inpatient team to order pain meds upon pt arrival to floor. Pt c/o dry eyes. Saline flush utlized to irrigate pt eyes. Pt in wheelchair to front, awaiting transport to floor. Denies further needs att. /edwar/ RENETTA JACOBSEN MPH, BSN, RN REGISTERED NURSE Signed: 01/07/2024 23:20 JEANCARLOS ZUNIGA [facility]
--- OUTSIDE RECORDS SUMMARY | 2024-12-05 00:23 | XMS_ITS ---
Author Name [facility] [place] [facility] [place] [facility] [facility] [place] Address [address] [place] [address] Care Team Providers Care Environmental Communications Specialist Name Role Phone ERIKA DEE Primary Care Provider BLU Menendez Primary Care Provider Unavailab edmond Insurance Providers: [...] PART A Jul 12, 2019 PART A [id number] PRASANNA KATZ PATIENT MEDICARE (WNR) MEDICARE (M) PART A Jul 12, 2019 PART A [id number] [phone] PRASANNA KATZ PATIENT Selected Encounter This section includes the information on record at [place] for the Encounter. Date/Time Encounter Type Encounter Description Reason Provider Source Jan 21, 2024 02:23 PM ESRD SRV 4 VISITS P MO 20+ ASSISTED HEMODIALYSIS ICD-10-CM P19.9 Metabolic acidemia in , unspecified CEHNG PURCELL Encounter Template Text not used by [place] Assessments - Encounter Diagnoses This section includes the primary and secondary diagnoses documented for the Encounter. Date/Time Primary/Secondary Diagnosis Diagnosis Name Provider Source Jan 21, 2024 03:12 PM PRIMARY Metabolic acidemia in , unspecified GISELE PURCELL [facility] Jan 21, 2024 03:12 PM SECONDARY Dependence on renal dialysis [facility] Jan 21, 2024 03:12 PM SECONDARY Essential (primary) [facility] Plan of Treatment: Future Appointments (+ 6 months) and Future Tests (+/- 45 days) The Plan of Treatment section includes future care activities for the patient [facility] [place] [facility] This section includes future appointments and future orders which are active, pending or scheduled. Future Appointments This section includes appointments that were scheduled to occur 6 months from the date of the Encounter, up to a maximum of 20 appointments. The data comes from all [place] treatment facilities. Appointment Date/Time Appointment Type Appointme nt Facility Name Jan 23, 2024 12:30 PM AMBULATORY - MEDICINE [facility] Jan 25, 2024 02:30 PM AMBULATORY - MEDICINE [facility] Jan 26, 2024 12:30 PM AMBULATORY - MEDICINE [facility] Jan 28, 2024 12:30 PM AMBULATORY - MEDICINE [facility] Feb 02, 2024 12:30 PM AMBULATORY - MEDICINE [facility] Feb 04, 2024 12:15 PM AMBULATORY - MEDICINE [facility] Feb 06, 2024 12:30 PM AMBULATORY - MEDICINE [facility] Feb 09, 2024 12:30 PM AMBULATORY - MEDICINE [facility] February 11, 2024 12:30 PM AMBULATORY - MEDICINE [facility] February 13, 2024 12:30 PM AMBULATORY - MEDICINE [facility] February 15, 2024 08:00 AM AMBULATORY - NONE [facility] February 15, 2024 08:30 AM AMBULATORY - MEDICINE [facility] Apr 05, 2024 09:30 AM AMBULATORY - MEDICINE [facility] Apr 27, 2024 07:30 AM AMBULATORY - SURGERY [facility] May 02, 2024 08:00 AM AMBULATORY - NONE [facility] May 02, 2024 08:30 AM AMBULATORY - MEDICINE [facility] May 16, 2024 02:00 PM AMBULATORY - MEDICINE [facility] Jul 12, 2024 08:00 AM AMBULATORY - NONE [facility] Jul 12, 2024 08:30 AM AMBULATORY - MEDICINE [facility] Lab Results: +/- 30 days of the [...] Range Comment Feb 09, 2024 12:[address] [facility] HEP B CORE AB TOTAL. (STL) Specimen Type: SERUM No comment entered. Ordering Provider: KYLER PURCELL Report Released Date/Time: Feb 09, 2024 10:43 AM Reporting Lab: [address] [address] Performing Lab: [address] [address] HEP B CORE AB TOTAL. (STL) Nonreactive Nonreactive Feb 09, 2024 12:[address] [facility] HEP HB S Ag ([place]) (STL) Specimen Type: SERUM No comment entered. Ordering Provider: KYLER PURCELL Report Released Date/Time: Feb 09, 2024 10:43 AM Reporting Lab: [address] [address] Performing Lab: [address] [address] HEP HB S Ag ([place]) (STL) Nonreactive Nonreactive Feb 09, 2024 12:[address] [facility] HEPATITIS B SURFACE AB PNL Specimen Type: SERUM No comment entered. Ordering Provider: KYLER PURCELL Report Released Date/Time: Feb 09, 2024 10:43 AM Reporting Lab: [address] [address] Performing Lab: [address] [address] HEP B Surface Ab-HBsAB (L) REACTIVE m[IU]/mL Nonreactive HEP Bs AB-QUANT (L) 79.36 m[IU]/mL Feb 09, 2024 12:[address] [facility] RENAL PANEL Specimen Type: PLASMA Comment: No hemolysis noted. Ordering Provider: KYLER PURCELL Report Released Date/Time: Feb 04, 2024 03:20 PM Reporting Lab: [address] [address] Performing Lab: [address] [address] CREATININE 7.69 mg/dL H 0.7-1.3 UREA NITROGEN 52.2 mg/dL H 9.0-25.0 GLUCOSE 147 mg/dL H 72-99 SODIUM 142 meq/L 136-145 POTASSIUM 4.1 meq/L 3.5-5 CHLORIDE 107 meq/L 98-107 CARBON DIOXIDE 22 meq/L 22-31 CALCIUM 10.2 mg/dL 8.4-10.4 PHOSPHOROUS 3.7 mg/dL 2.3-4.7 ALBUMIN 3.7 g/dL 3.4-5 EGFR (CKD-EPI 2020) 7.1 LL >60 Feb 09, 2024 12:[address] [facility] CBC Specimen Type: BLOOD No comment entered. Ordering Provider: KYLER PURCELL Report Released Date/Time: Feb 04, 2024 03:20 PM Reporting Lab: [address] [address] Performing Lab: [address] [address] WBC 9.7 10*3/uL 3.6-11.2 RBC 3.09 10*6/uL [...] 10*3/uL 0.00-0.20 Feb 04, 2024 05:[address] [facility] URR-POST PANEL (STL) Specimen Type: PLASMA No comment entered. Ordering Provider: KYLER PURCELL Report Released Date/Time: Feb 04, 2024 01:42 PM Reporting Lab: [address] [address] Performing Lab: [address] [address] BUN-POST DIALYSIS 16.2 mg/dL 9.0-25.0 URR (STL) 70.4 67.0-100.0 Feb 04, 2024 12:[address] [facility] RENAL PANEL Specimen Type: PLASMA Comment: No hemolysis noted. Ordering Provider: KYLER PURCELL Report Released Date/Time: Feb 04, 2024 01:42 PM Reporting Lab: [address] [address] Performing Lab: [address] [address] CREATININE 6.97 mg/dL H 0.7-1.3 UREA NITROGEN 54.7 mg/dL H 9.0-25.0 GLUCOSE 134 mg/dL H 72-99 SODIUM 142 meq/L 136-145 POTASSIUM 4.0 meq/L 3.5-5 CHLORIDE 105 meq/L 98-107 CARBON DIOXIDE 24 meq/L 22-31 CALCIUM 9.7 mg/dL 8.4-10.4 PHOSPHOROUS 4.8 mg/dL H 2.3-4.7 ALBUMIN 3.9 g/dL 3.4-5 EGFR (CKD-EPI 2020) 7.9 LL >60 Feb 02, 2024 04:[address] [facility] URR-POST PANEL (STL) Specimen Type: PLASMA No comment entered. Ordering Provider: KYLER PURCELL Report Released Date/Time: Feb 02, 2024 03:39 PM Reporting Lab: [address] [address] Performing Lab: [address] [address] BUN-POST DIALYSIS 22.9 mg/dL 9.0-25.0 URR (STL) 60.9 L 67.0-100.0 Feb 02, 2024 11:[address] [facility] RENAL PANEL Specimen Type: PLASMA Comment: No hemolysis noted. Ordering Provider: KYLER PURCELL Report Released Date/Time: Feb 02, 2024 07:35 AM Reporting Lab: [address] [address] Performing Lab: [address] [address] CREATININE 8.34 mg/dL H 0.7-1.3 UREA NITROGEN 58.6 mg/dL H 9.0-25.0 GLUCOSE 169 mg/dL H 72-99 SODIUM 142 meq/L 136-145 POTASSIUM 4.6 meq/L 3.5-5 CHLORIDE 111 meq/L H 98-107 CARBON DIOXIDE 20 meq/L L 22-31 CALCIUM 9.2 mg/dL 8.4-10.4 PHOSPHOROUS 3.6 mg/dL 2.3-4.7 ALBUMIN 3.7 g/dL 3.4-5 EGFR (CKD-EPI 2020) 6.4 LL >60 Feb 01, 2024 11:[address] [facility] 24H UR CHEM PANEL (STL) Specimen Type: 24-HOUR URINE No comment entered. Ordering Provider: KYLER PURCELL Report Released Date/Time: Jan 28, 2024 04:55 PM Reporting Lab: [address] [address] Performing Lab: [address] [address] VOLUME 3289 mL SODIUM 24-HOUR URINE 226.941 H 40-220 POTASSIUM 24-HOUR URINE 35.8501 25-125 CHLORIDE 24-HOUR URINE 171.028 110-250 PROTEIN 24-HOUR URINE 1986.556 H 0-299.9 CREATININE 24-HOUR URINE [phone] Jan 28, 2024 05:[address] [facility] CBC Specimen Type: BLOOD No comment entered. Ordering Provider: KYLER PURCELL Report Released Date/Time: Jan 28, 2024 05:07 PM Reporting Lab: [address] [address] Performing Lab: [address] [address] WBC 8.9 10*3/uL 3.6-11.2 RBC 2.96 10*6/uL [...] 10*3/uL 0.00-0.20 Jan 26, 2024 01:[address] [facility] PTH, INTACT (STL) Specimen Type: SERUM No comment entered. Ordering Provider: KYELR PURCELL Report Released Date/Time: Jan 21, 2024 03:14 PM Reporting Lab: [address] [address] Performing Lab: [address] [address] PTH, INTACT (STL) 141.40 pg/mL H 8.7-77.7 Jan 26, 2024 01:[address] [facility] IRON/TIBC PROFILE Specimen Type: SERUM No comment entered. Ordering Provider: KYLER PURCELL Report Released Date/Time: Jan 21, 2024 03:14 PM Reporting Lab: [address] [address] Performing Lab: [address] [address] TIBC 225 ug/dL L 250-450 TRANSFERRIN 180 mg/dL 163-344 IRON SATURATION 23 20-50 IRON 52 ug/dL L 65-175 Jan 26, 2024 01:[address] [facility] FERRITIN Specimen Type: SERUM No comment entered. Ordering Provider: KYLER PURCELL Report Released Date/Time: Jan 21, 2024 03:14 PM Reporting Lab: [address] [address] Performing Lab: [address] [address] FERRITIN 118.78 ng/mL 22-275 Jan 26, 2024 01:[address] [facility] RENAL PANEL Specimen Type: PLASMA Comment: No hemolysis noted. Ordering Provider: KLYER PURCELL Report Released Date/Time: Jan 21, 2024 03:14 PM Reporting Lab: [address] [address] Performing Lab: [address] [address] CREATININE 8.25 mg/dL H 0.7-1.3 UREA NITROGEN 63.1 mg/dL H 9.0-25.0 GLUCOSE 157 mg/dL H 72-99 SODIUM 137 meq/L 136-145 POTASSIUM 4.2 meq/L 3.5-5 CHLORIDE 100 meq/L 98-107 CARBON DIOXIDE 26 meq/L 22-31 CALCIUM 9.6 mg/dL 8.4-10.4 PHOSPHOROUS 4.9 mg/dL H 2.3-4.7 ALBUMIN 3.7 g/dL 3.4-5 EGFR (CKD-EPI 2020) 6.5 LL >60 Jan 26, 2024 01:[address] [facility] CBC Specimen Type: BLOOD No comment entered. Ordering Provider: KYLER PURCELL Report Released Date/Time: Jan 21, 2024 03:14 PM Reporting Lab: [address] [address] Performing Lab: [address] [address] WBC 7.8 10*3/uL 3.6-11.2 RBC 2.95 10*6/uL [...] 10*3/uL 0.00-0.20 Jan 21, 2024 12:[address] [facility] PT/INR NEW ([facility]) Specimen Type: PLASMA No comment entered. Ordering Provider: KYLER PURCELL Report Released Date/Time: Jan 21, 2024 12:43 PM Reporting Lab: [address] [address] Performing Lab: [address] [address] PROTIME 15.9 s H 9.4-12.5 INR VALUE 1.4 {INR} Jan 21, 2024 12:[address] [facility] RENAL PANEL Specimen Type: PLASMA Comment: No hemolysis noted. Ordering Provider: KYLER PURCELL Report Released Date/Time: Jan 21, 2024 12:41 PM Reporting Lab: [address] [address] Performing Lab: [address] [address] CREATININE 8.11 mg/dL H 0.7-1.3 UREA NITROGEN 82.6 mg/dL H 9.0-25.0 GLUCOSE 114 mg/dL H 72-99 SODIUM 139 meq/L 136-145 POTASSIUM 5.1 meq/L H 3.5-5 CHLORIDE 109 meq/L H 98-107 CARBON DIOXIDE 19 meq/L L 22-31 CALCIUM 9.3 mg/dL 8.4-10.4 PHOSPHOROUS 4.1 mg/dL 2.3-4.7 ALBUMIN 3.8 g/dL 3.4-5 EGFR (CKD-EPI 2020) 6.6 LL >60 Jan 14, 2024 11:[address] [facility] RENAL PANEL Specimen Type: PLASMA Comment: No hemolysis noted. Ordering Provider: KYLER PURCELL Report Released Date/Time: Jan 13, 2024 07:58 AM Reporting Lab: [address] [address] Performing Lab: [address] [address] CREATININE 8.05 mg/dL H 0.7-1.3 UREA NITROGEN 70.7 mg/dL H 9.0-25.0 GLUCOSE 155 mg/dL H 72-99 SODIUM 140 meq/L 136-145 POTASSIUM 5.1 meq/L H 3.5-5 CHLORIDE 107 meq/L 98-107 CARBON DIOXIDE 21 meq/L L 22-31 CALCIUM 9.6 mg/dL 8.4-10.4 PHOSPHOROUS 4.8 mg/dL H 2.3-4.7 ALBUMIN 4.1 g/dL 3.4-5 EGFR (CKD-EPI 2020) 6.7 LL >60 Jan 11, 2024 11:[address] [facility] GLUCOSE,BLOOD-poct (STL) Specimen Type: BLOOD Comment: Test Performed by: [id number] Meter #: [id number] Ordering Provider: LIDIA HUYNH Report Released Date/Time: Jan 11, 2024 11:50 AM Reporting Lab: [address] [address] Performing Lab: [address] [address] GLUCOSE,BLOOD- poct (STL) 106 mg/dL H 72-99 Jan 11, 2024 11:[address] [facility] GLUCOSE,BLOOD-poct (STL) Specimen Type: BLOOD Comment: Test Performed by: [id number] Meter #: [id number] Ordering Provider: LIDIA HUYNH Report Released Date/Time: Jan 11, 2024 11:18 AM Reporting Lab: [address] [address] Performing Lab: [address] [place] [address] GLUCOSE,BLOOD- poct (STL) 109 mg/dL H 72-Jan 11, 2024 05:[address] [facility] GLUCOSE,BLOOD-poct (STL) Specimen Type: BLOOD Comment: Test Performed by: [id number] Meter #: [id number] Ordering Provider: LIDIA HUYNH Report Released Date/Time: Jan 11, 2024 05:25 AM Reporting Lab: [address] [address] Performing Lab: [address] [address] GLUCOSE,BLOOD- poct (STL) 88 mg/dL -Jan 10, 2024 08:[address] [facility] GLUCOSE,BLOOD-poct (STL) Specimen Type: BLOOD Comment: Test Performed by: [id number] Meter #: [id number] Ordering Provider: LINOMED Report Released Date/Time: Jan 10, 2024 08:31 PM Reporting Lab: [address] [address] Performing Lab: [address] [address] GLUCOSE,BLOOD- poct (STL) 153 mg/dL H -Jan 10, 2024 04:[address] [facility] GLUCOSE,BLOOD-poct (STL) Specimen Type: BLOOD Comment: Test Performed by: [id number] Meter #: [id number] Ordering Provider: LINOMED Report Released Date/Time: Jan 10, 2024 05:05 PM Reporting Lab: [address] [address] Performing Lab: [address] [address] GLUCOSE,BLOOD- poct (STL) 84 mg/dL 72-Jan 10, 2024 11:[address] [facility] GLUCOSE,BLOOD-poct (STL) Specimen Type: BLOOD Comment: Test Performed by: [id number] Meter #: [id number] Ordering Provider: LIDIA HUYNH Report Released Date/Time: Jan 10, 2024 12:03 PM Reporting Lab: [address] [address] Performing Lab: [address] [address] GLUCOSE,BLOOD- poct (STL) 99 mg/dL 72-99 Jan 10, 2024 04:[address] [facility] GLUCOSE,BLOOD-poct (STL) Specimen Type: BLOOD Comment: Test Performed by: [id number] Meter #: [id number] Ordering Provider: LIDIA HUYNH Report Released Date/Time: Jan 10, 2024 05:29 AM Reporting Lab: [place] [phone] Performing Lab: [place] [phone] GLUCOSE,BLOOD- poct (STL) 109 mg/dL H 72-99 Jan 09, 2024 08:[address] [facility] GLUCOSE,BLOOD-poct (STL) Specimen Type: BLOOD Comment: Test Performed by: [id number] Meter #: [id number] Ordering Provider: LIDIA HUYNH Report Released Date/Time: Jan 09, 2024 08:28 PM Reporting Lab: [address] [address] Performing Lab: [place] [phone] GLUCOSE,BLOOD- poct (STL) 110 mg/dL H 72-99 Jan 09, 2024 04:[address] [facility] GLUCOSE,BLOOD-poct (STL) Specimen Type: BLOOD Comment: Test Performed by: [id number] Meter #: [id number] Ordering Provider: LIDIA HUYNH Report Released Date/Time: Jan 09, 2024 04:34 PM Reporting Lab: [place] [phone] Performing Lab: [address] [place] [address] GLUCOSE,BLOOD- poct (STL) 119 mg/dL H 72-99 Jan 09, 2024 02:[address] [facility] MAGNESIUM Specimen Type: PLASMA Comment: No hemolysis noted. Ordering Provider: TATI ZAVALA Report Released Date/Time: Jan 09, 2024 07:51 AM Reporting Lab: [address] [address] Performing Lab: [address] [address] MAGNESIUM 1.6 mg/dL 1.6-2.6 Jan 09, 2024 02:[address] [facility] RENAL PANEL Specimen Type: PLASMA Comment: No hemolysis noted. Ordering Provider: TATI ZAVALA Report Released Date/Time: Jan 09, 2024 07:51 AM Reporting Lab: [address] [address] Performing Lab: [address] [address] CREATININE 5.13 mg/dL H 0.7-1.3 UREA NITROGEN 46.2 mg/dL H 9.0-25.0 GLUCOSE 177 mg/dL H 72-99 SODIUM 136 meq/L 136-145 POTASSIUM 4.0 meq/L 3.5-5 CHLORIDE 101 meq/L 98-107 CARBON DIOXIDE 23 meq/L 22-31 CALCIUM 8.6 mg/dL 8.4-10.4 PHOSPHOROUS 2.7 mg/dL 2.3-4.7 ALBUMIN 3.6 g/dL 3.4-5 EGFR (CKD-EPI 2020) 11.5 LL >60 Jan 09, 2024 12:[address] [facility] GLUCOSE,BLOOD-poct (STL) Specimen Type: BLOOD Comment: Test Performed by: [id number] Meter #: [id number] Ordering Provider: LIDIA HUYNH Report Released Date/Time: Jan 09, 2024 12:38 PM Reporting Lab: [address] [address] Performing Lab: [place] [address] [facility] [address] GLUCOSE,BLOOD- poct (STL) 98 mg/dL 72-Jan 09, 2024 07:[address] [facility] GLUCOSE,BLOOD-poct (STL) Specimen Type: BLOOD Comment: Test Performed by: [id number] Meter #: [id number] Ordering Provider: LIDIA HUYNH Report Released Date/Time: Jan 09, 2024 07:58 AM Reporting Lab: [place] [address] [facility] [address] Performing Lab: [place] [address] [facility] [address] GLUCOSE,BLOOD- poct (STL) 86 mg/dL -Jan 08, 2024 09:[address] [facility] GLUCOSE,BLOOD-poct (STL) Specimen Type: BLOOD Comment: Test Performed by: [id number] Meter #: [id number] Ordering Provider: LIDIA HUYNH Report Released Date/Time: Jan 08, 2024 09:47 PM Reporting Lab: [place] [address] [facility] [address] Performing Lab: [place] [address] [facility] [address] GLUCOSE,BLOOD- poct (STL) 90 mg/dL -Jan 08, 2024 09:[address] [facility] HEP B CORE AB TOTAL. (STL) Specimen Type: SERUM No comment entered. Ordering Provider: EFREN TAYLOR Report Released Date/Time: Jan 08, 2024 02:35 PM Reporting Lab: [place] [address] [facility] [address] Performing Lab: [address] [address] HEP B CORE AB TOTAL. (STL) Nonreactive Nonreactive Jan 08, 2024 09:[address] [facility] HEPATITIS B SURFACE AB PNL Specimen Type: SERUM No comment entered. Ordering Provider: EFREN TAYLOR Report Released Date/Time: Jan 08, 2024 02:35 PM Reporting Lab: [address] [address] Performing Lab: [address] [address] HEP B Surface Ab-HBsAB (STL) REACTIVE m[IU]/mL Nonreactive HEP Bs AB-QUANT (L) 63.22 m[IU]/mL Jan 08, 2024 09:[address] [facility] HEP HB S Ag ([place]) (STL) Specimen Type: SERUM No comment entered. Ordering Provider: EFREN TAYLOR Report Released Date/Time: Jan 08, 2024 02:35 PM Reporting Lab: [address] [address] Performing Lab: [address] [address] HEP HB S Ag ([place]) (STL) Nonreactive Nonreactive Jan 08, 2024 04:[address] [facility] GLUCOSE,BLOOD-poct (L) Specimen Type: BLOOD Comment: Test Performed by: [id number] Meter #: [id number] Ordering Provider: LIDIA HUYNH Report Released Date/Time: Jan 08, 2024 05:09 PM Reporting Lab: [place] [address] [facility] [address] Performing Lab: [address] [address] GLUCOSE,BLOOD- poct (STL) 95 mg/dL 72-99 Jan 08, 2024 11:[address] [facility] GLUCOSE,BLOOD-poct (L) Specimen Type: BLOOD Comment: Test Performed by: [id number] Meter #: [id number] Ordering Provider: LIDIA HUYNH Report Released Date/Time: Jan 08, 2024 11:37 AM Reporting Lab: [address] [address] Performing Lab: [address] [address] GLUCOSE,BLOOD- poct (STL) 105 mg/dL H 72-99 Jan 08, 2024 07:[address] [facility] RENAL PANEL Specimen Type: PLASMA Comment: No hemolysis noted. Ordering Provider: LIZETTE GRIFFIN Report Released Date/Time: Jan 07, 2024 11:24 PM Reporting Lab: [address] [address] Performing Lab: [address] [address] CREATININE 8.50 mg/dL H 0.7-1.3 UREA NITROGEN 88.2 mg/dL H 9.0-25.0 GLUCOSE 70 mg/dL L 72-99 SODIUM 139 meq/L 136-145 POTASSIUM 5.4 meq/L H 3.5-5 CHLORIDE 110 meq/L H 98-107 CARBON DIOXIDE 19 meq/L L 22-31 CALCIUM 9.4 mg/dL 8.4-10.4 PHOSPHOROUS 5.1 mg/dL H 2.3-4.7 ALBUMIN 3.8 g/dL 3.4-5 EGFR (CKD-EPI 2020) 6.3 LL >60 Jan 08, 2024 06:[address] [facility] GLUCOSE,BLOOD-poct (STL) Specimen Type: BLOOD Comment: Test Performed by: [id number] Meter #: [id number] Ordering Provider: LIDIA HUYNH Report Released Date/Time: Jan 08, 2024 06:48 AM Reporting Lab: [address] [address] Performing Lab: [address] [address] GLUCOSE,BLOOD- poct (STL) 86 mg/dL 72-99 Jan 07, 2024 11:[address] [facility] RENAL PANEL Specimen Type: PLASMA Comment: No hemolysis noted. Ordering Provider: LIZETTE GRIFFIN Report Released Date/Time: Jan 07, 2024 11:38 PM Reporting Lab: [address] [address] Performing Lab: [address] [address] CREATININE 8.68 mg/dL H 0.7-1.3 UREA NITROGEN 92.6 mg/dL H 9.0-25.0 GLUCOSE 143 mg/dL H 72-99 SODIUM 138 meq/L 136-145 POTASSIUM 5.0 meq/L 3.5-5 CHLORIDE 111 meq/L H 98-107 CARBON DIOXIDE 17 meq/L L 22-31 CALCIUM 8.8 mg/dL 8.4-10.4 PHOSPHOROUS 3.8 mg/dL 2.3-4.7 ALBUMIN 3.8 g/dL 3.4-5 EGFR (CKD-EPI 2020) 6.1 LL >60 Jan 07, 2024 11:[address] [facility] GLUCOSE,BLOOD-poct (STL) Specimen Type: BLOOD Comment: Test Performed by: [id number] Meter #: [id number] Ordering Provider: LIDIA MOSCOSO Report Released Date/Time: Jan 07, 2024 11:47 PM Reporting Lab: [address] [address] Performing Lab: [address] [address] GLUCOSE,BLOOD- poct (STL) 157 mg/dL H 72-99 Jan 07, 2024 11:[address] [facility] MRSA SURVL NARES DNA Specimen [...] Jan 07, 2024 11:24 PM Reporting Lab: [address] [phone] Performing Lab: [facility] [address] [address] MRSA SURVL NARES DNA Negative Negative Jan 07, 2024 09:[address] [facility] POTASSIUM Specimen Type: PLASMA Comment: No hemolysis noted. Ordering Provider: ANNA CALI Report Released Date/Time: Jan 07, 2024 08:38 PM Reporting Lab: [place] [address] [place] [address] Performing Lab: [place] [address] [place] [address] POTASSIUM 5.7 meq/L H 3.5-5 Jan 07, 2024 07:[address] [facility] URINALYSIS (STL-PB) Specimen Type: URINE No comment entered. Ordering Provider: ANNA CALI Report Released Date/Time: Jan 07, 2024 05:18 PM Reporting Lab: [place] [address] Performing Lab: [place] [address] [place] [phone] URINE COLOR Colorless Yellow U.BILIRUBIN Negative mg/dL [...] 1.015 1.005-1.029 Jan 07, 2024 05:[address] [facility] BRAIN NATRIURETIC PEPTIDE Specimen Type: PLASMA No comment entered. Ordering Provider: GRACIELA MANN Report Released Date/Time: Jan 07, 2024 04:59 PM Reporting Lab: [place] [address] [place] [phone] Performing Lab: [facility] [address] [facility] [address] BRAIN NATRIURETIC PEPTIDE 59.0 pg/mL 0-100 Jan 07, 2024 05:[address] [facility] COVID-19 DIAGNOSTIC (FLU/RSV)(STL) Specimen Type: [...] Jan 07, 2024 04:59 PM Reporting Lab: [address] [address] Performing Lab: [place] [address] INFLUENZA A Negative Negative INFLUENZA B Negative Negative COVID-19 (STL-PB) Not Detected Not Detected RSV (Cepheid) NEGATIVE Negative Jan 07, 2024 05:[address] [facility] COMPREHENSIVE METABOLIC PANEL Specimen Type: PLASMA Comment: Aspartate Transaminase result may show positive bias due to hemolysis. K result canceled due to hemolysis. Specimen moderately hemolyzed. K cancelled due to moderate hemolysis. Called to : Phillip Cee RN at: [id number] on: 01/07/2024 by: [place] Ordering Provider: GRACIELA MANN Report Released Date/Time: Jan 07, 2024 04:59 PM Reporting Lab: [address] [phone] Performing Lab: [address] [phone] CREATININE 8.88 mg/dL H 0.7-1.3 UREA NITROGEN [...] LL >60 Jan 07, 2024 05:[address] [facility] CBC Specimen Type: BLOOD No comment entered. Ordering Provider: GRACIELA MANN Report Released Date/Time: Jan 07, 2024 04:59 PM Reporting Lab: [facility] [address] [facility] [address] Performing Lab: [address] [phone] WBC 9.2 10*3/uL 3.6-11.2 RBC 3.81 10*6/uL [...] 10*3/uL 0.00-0.60 BASOPHILS, ABSOLUTE 0.03 10*3/uL 0.00-0.20 Vital Signs: All taken on the encounter date This section contains inpatient and outpatient Vital Signs collected on the date of the Encounter. Date/Time Temperature Pulse Blood Pressure Respiratory Rate SP02 Pain Height Weight Body Mass Index Source Jan 21, 2024 02:28 PM 97.5 57 136/75 226.64 34 [facility] Social History: Smoking Status (Most current) and Tobacco Use (All prior to encounter date) This section includes the most current, and the historical, smoking and tobacco- related health factors from the [place] facility where the Encounter took place. Current Smoking Status This section includes the most current smoking, or tobacco-related health factor, from the [place] facility where the Encounter took place. Date/Time Current Smoking Status Comment Facil ity Jun 21, 2023 01:14 PM ORYX ADMIT TOBACCO SCREEN NO [facility] Tobacco Use History This section includes a history of the smoking, or tobacco-related health factors, that were collected on or before the date of the Encounter. The data comes from the [place] facility where the Encounter took place. Date/Time Smoking Status/Tobacco Use Comment F acility Dec 12, 2022 04:00 PM ORYX ADMIT TOBACCO SCREEN NO [facility] Jun 25, 2022 03:24 PM VA-TOBACCO FORMER USER [facility] Jun 25, 2022 03:24 PM VA-TOBACCO QUIT 15 YRS OR MORE [facility] Dec 23, 2021 04:59 PM ORYX ADMIT TOBACCO SCREEN REFUSED [facility] May 24, 2020 11:27 PM ORYX ADMIT TOBACCO SCREEN NO [facility] Dec 12, 2019 10:24 AM VA-TOBACCO FORMER USER [facility] Dec 12, 2019 10:24 AM VA-TOBACCO QUIT 15 YRS OR MORE [facility] Aug 03, 2019 02:11 AM ORYX ADMIT TOBACCO SCREEN REFUSED [facility] Oct 12, 2018 01:14 AM QUIT TOBACCO >[address] A[address] [facility] Oct 11, 2018 03:33 PM ORYX ADMIT TOBACCO SCREEN NO [facility] Sep 07, 2018 09:13 PM ORYX ADMIT TOBACCO SCREEN NO [facility] Sep 07, 2018 07:52 PM QUIT TOBACCO >7 YEARS AGO [facility] Advance Directives: All historical and current Section Date Range: From patient's date of to the date document was created. This section includes ALL of a patient's completed or amended [place] Advance and Rescinded Directives. The entries below indicate that a directive exists for the patient, but an actual copy is not included with this document. The data comes from all [place] facilities. Date Advance Directives Provider Source Dec 17, 2022 ADVANCE DIRECTIVE BIJAN MERRITT [facility] Feb 09, 2020 ADVANCE DIRECTIVE DISCUSSION MELY LUCIANO [facility] Feb 02, 2018 ADVANCE DIRECTIVE BEAU ALTAMIRANO [facility] Nov 29, 2006 ADVANCE DIRECTIVE MARELY CHACON [facility] Radiology Reports: +/- 30 days of the [...] the Encounter. The data comes from all [place] treatment facilities. Date/Time Radiology Report Provider Source Jan 07, 2024 08:01 PM CHEST PORTABLE: NAGI KATZ [id number] -1955 M Exm Date: JAN 07, 2024@20:01 Req Phys: ANNA CALI Loc: -EMERGENCY DEPT 3RD SHIFT (R Img Loc: -MAIN RADIOLOGY SUITE Service: Unknown (Case [id number] COMPLETE) CHEST PORTABLE (RAD Detailed) CPT:22271 Proc Modifiers : Portable Reason for Study: weakness, ESRD Clinical History: Report Status: Verified Date Reported: JAN 07, 2024 Date Verified: JAN 07, 2024 Hearings Reporter E-Sig: Report: CHEST PORTABLE HISTORY: weakness, ESRD COMPARISON: July 26, 2023 TECHNIQUE: One view of the chest was performed at the local [facility] facility. images were received by the [place] National Teleradiology Program (NTP) for interpretation. FINDINGS: Bilateral peribronchial thickening. Patchy bilateral lower lobe lung opacities. Mildly tortuous aorta. No acute bony abnormalities. Impression: 1. Bilateral peribronchial thickening. 2. Patchy bilateral lung opacities likely represent atelectasis. 3. No pneumothorax. READING PHYSICIAN: Madhu Patton M.D. -[phone] 01/07/2024 19:10 PDT [facility] National Teleradiology Program [phone] (For Medical Practitioner Use Only) Attention Patients / Veterans: If you have questions or concerns about these test results, please contact your ordering provider or primary care team. Primary Interpreting Staff: RADIOLOGY,OUTSIDE SERVICE, Staff Physician / RADIOLOGY,OUTSIDE SERVICE [facility] Encounter Notes: All associated encounter notes This section contains the clinical notes associated to the Encounter. Date/Time Encounter Note(s) Provider Source Jan 21, 2024 02:23 PM DIALYSIS NURSING NOTE: LOCAL TITLE: DIALYSIS NOTE STANDARD TITLE: DIALYSIS NURSING NOTE DATE OF NOTE: JAN 21, 2024@14:23 ENTRY DATE: JAN 21, 2024@14:24:06 AUTHOR: MARTHA PURCELL COSIGNER: URGENCY: STATUS: COMPLETED Weekly Dialysis Rounding Note: 68yo with esrd here for third dialysis session. His last dialysis session was January 08 when his fistula infiltrated. He was scheduled to come for dialysis sessions since then but hesitant to have his fistula cannulated since it was still swollen and tender. here today for dialysis. He denied nausea, vomiting, change in appetite or taste of food. His last weight was was 102.1, weighed 102.8 today. No edema. He denied any issues or concerns His treatment was intiated with two 17 gauge needles and treatment ongoing at the moment. Takes patiromer 8.4gm every other day. Lab Data: CBC: WBC 9.2 10*3/uL 01/07/2024 [...] 12:10 Renal Function Panel: SODIUM 139 mEq/L 01/21/2024 12:55 POTASSIUM 5.1 H mEq/L 01/21/2024 12:55 CHLORIDE 109 H mEq/L 01/21/2024 12:55 UREA NITROGEN 82.6 H mg/dL 01/21/2024 12:55 CREATININE 8.11 H mg/dL 01/21/2024 12:55 CALCIUM 9.3 mg/dL 01/21/2024 12:55 CARBON DIOXIDE 19 L mEq/L 01/21/2024 12:55 GLUCOSE 114 H mg/dL 01/21/2024 12:55 EGFR (CKD-EPI 2020) 6.6 L* 01/21/2024 12:55 ALBUMIN 3.8 g/dL 01/21/2024 12:55 PHOSPHOROUS 4.1 mg/dL 01/21/2024 12:55 Intact PTH: VITAMIN D, 25-HYDROXY 46.8 ng/mL 08/31/2023 16:36 Anemia Labs: IRON 55 L ug/dL 06/18/2022 12:10 IRON SATURATION 22 %SAT 06/18/2022 12:10 TIBC 255 ug/dL 06/18/2022 12:10 0 FERRITIN 69.83 ng/mL 06/18/2022 12:10 Vital signs: VS Date Vital Measurement Qualifiers 01/21/2024 14:28 Temp F (C) 97.5 (36.4) Pulse 57 BP 136/75 Wt lbs (kg)[BMI] 226.64 (102.80)[34*] Exam: Lungs CTAB, RRR, s1s2, abd soft, +BS, no edema Access: LUE AVF +thrill, +bruit, mild redness and swelling noted with ESRD here for 3rd dialysis session, was initiated in acute unit January 07, had dialysis sessions on January 07 and when his fistula infiltrated and had not had any treatment since then. he had smooth avf cannulation today with 17 gauge needles will continue 17 gauge needles for the next 3 treatments before advancing. planning uf of 0.5kg today, will continue HD - 3.5 hrs on TTS considering switching patient to 2 days per week if patient agrees to continue treatment here and if labs warrants. will discuss plan with messenger floorperson dr. Trejo. continue ice alternating with warm compress to avf 2-3x/day to relief swelling #anemia hgb 11.9 on most recent lab at goal no indication for MELY, will recheck level and iron stores next week. continue renal multivitamins #bp/edema bp at goal, no edema, will continue current bp regimen - nifedipine 90mg and carvedilol 25mg bid continue salt restriction continue home bp log #Secondary hyperparathyroidism of renal disease- pth 527 on most recent lab, will recheck level next week and transition patient to paricalcitriol, will continue calcitriol 0.5mcg daily for now potassium 5.1 will continue patiromer every other day for now, will recheck level next week alb 3.8, ca 9.3, phos 4.1 at goal. #Acid-Base - bicarb 19 not at goal, will continue sodium bicarb 2 tabs po tid, expecting level to improve once fully initiated on HD. /edwar/ KIMBERLY PURCELL APRN DECKHAND MAINTENANCE- NURSE PRACTITIONER Signed: 01/21/2024 15:12 Receipt Acknowledged By: 01/22/2024 09:03 /edwar/ MERY TREJO MD STAFF PHYSICIAN,NEPHROLOGY ANDREW PURCELL. [facility]
--- OUTSIDE RECORDS SUMMARY | 2024-12-05 00:23 | XMS_ITS ---
Author Organization [facility] Address [address] [facility] [place] [address] Care Team Providers Care Induction Heating Equipment Setter Name Role Phone Thao Mcqueen Primary Care Provider Unavailab le Transplant Episode Kidney Candidate [facility] ([place], [place]) - [facility] waitlisted on 12/30/2023 Marked as Active on 06/23/2024 Kidney CoordinatorAntonette Hill RN Phone: N/A Fax: N/A Email: N/A Scores Score Value Updated Exceptions/Reas ons CPRA Not available EPTS (Calc) 88 12/05/2024 [place] Organ Diagnosis Organ Primary Contributory Kidney Diabetes Mellitus - Type II Hype rtensive Nephrosclerosis Care Team Name Role Phone Fax Email Antonette Hill RN Kidney Coordinator N/A N/A N/A Angela Augustin Referring Physician N/A N/A N/A Kenia Carroll Pathology Secretary/Transcriptionist N/A N/A N/A Events Pre-Transplant Referred: 11/12/2022 Evaluation began: 04/28/2023 Committee: 12/10/2023 UNOS qualified: 01/21/2019 Center waitlisted: 12/30/2023 Appointments (11/04/2024 - 01/02/2025) When With Visit Type Description 11/22/2024 Transplant [facility] Education Transplant Can celed (Provider ) 11/22/2024 Transplant Slh Education Transplant Can celed (Provider ) 11/23/2024 Transplant Sl Education Transplant No Show 11/23/2024 Transplant [facility] Education Transplant No Show Dialysis History Dialysis History Start End Type Comments Center 02/15/2024 In-center Hemodialysis [facility] In-center Hemodialysis T/R/S [facility] Dialysis Center Information Center Phone Fax Address [place] [facility] [phone] [address] [facility] [address] [facility] [phone] [facility] [address] [facility] [address]
--- OUTSIDE RECORDS SUMMARY | 2024-12-05 00:23 | XMS_ITS | Referral Summary ---
Author Organization [facility] Address [address] [facility] [place] [address] Care Team Providers Care Sales Representative Gas Service Name Role Phone Thao Mcqueen Primary Care Provider Unavailab le Source Comments [facility],non-owned Affiliates and Associated Physician Practices is amultiple site organization consisting of ambulatory clinics and hospital sitesin [place], [place], [place] and [place]. This disclosure is being madepursuant to the Care Everywhere program and may not contain all information available regarding this patient. Last updated 18.[facility] Encounters Date Type Department Care Team Description 11/24/2024 Telephone [facility] [address] [place] [address] Antonette Hill RN Kidney Transplant Evaluation 11/22/2024 Telephone [facility] [address] [place] [address] Maral Valdivia CPC Kidney Transplant Evaluation 11/18/2024 Travel 11/18/2024 11:00 AM VENDING TECHNICIAN Procedure visit [facility] - GI [address] [place] [phone] Dell Mcmillan MD NAFLD (nonalcoholic fatty liver disease) 11/18/2024 11:00 AM VENDING TECHNICIAN Office Visit [facility] - GI [address] [place] [phone] Wendy Ordoñez PA-C Pre-transplant evaluation for kidney transplant (Primary Dx); ESRD (end stage renal disease) (HCC) 11/17/2024 Telephone [facility] [address] [place] [address] Antonette Hill RN Kidney Transplant Evaluation 10/25/2024 Orders Only [facility] Anticoagulation - Clinical Pharmacy [address] [place] [address] Radha Roper MD manager long term care (current) use of anticoagulants ; Atrial fibrillation, unspecified type (HCC) 10/19/2024 Travel 10/19/2024 2:30 PM VENDING TECHNICIAN Office Visit [facility] - GI [address] [facility] [place] [address] Ravi Evans III, MD Obesity, Class I, BMI 30-34.9 (Primary Dx); Type 2 diabetes mellitus with other specified complication, 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 terminal gauger insulin use (HCC); Metabolic syndrome; Neuropathy 10/17/2024 Telephone [facility] [address] [place] [address] Maral Valdivia CPC Kidney Transplant Evaluation 10/17/2024 10:20 AM VENDING TECHNICIAN Video Visit [facility] - Cardiology [address] [facility], [facility] [address] [place] [address] Ban Alfaro MD Arora, Shilpkumar, MD Pre-kidney transplant, listed ; 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); ESRD (end stage renal disease) (HCC); Hypertension, unspecified type; Type 2 diabetes mellitus with other kidney complication, 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 penitentiary insulin use (HCC); Atrial fibrillation, unspecified type [...] 11/18/24 Fibroscan CAP 260, LSM 3.7 kPa manager long term care (current) use of anticoagulants 2024 ESRD (end stage renal disease) 10/24/2024 Dependence on renal dialysis 10/24/2024 Pre-kidney transplant, listed 10/24/2024 Atrial fibrillation, unspecified type 10/24/2024 Hypertension, unspecified type 10/24/2024 Type 2 diabetes mellitus wit h other kidney complication, 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 penitentiary insulin use 10/24/2024 Hypertension 10/19/2024 Type 2 [...] were not included. Kemal Cali 1955 Referring Hoop Puncher: Angela Augustin Listing Date: 12/30/2023 Dialysis Info: [...] CT ALERTS: Listed for Hep C kidneys Rn Embedded: through the [facility] CKD r/t DM2 and [...] surgical records from Dr. Veloz at [facility] in [place] with respect to the laparotomy, lysis of [...] Flores for the referral. Ban Alfaro MD advanced nursing professor Transplant & HPB Surgery Transplant Surgery Clinic [...] Lt heart Cath and cardiology appointment at [facility] for A. Fib./Abelation, iRBBB and Lt [...] followup in PRN. Wendy Ordoñez PA-C Physician Ceramic Tile Mechanic in Internal Medicine Sampson Holloway MD Professor of Internal Medicine No orders of the defined types were placed in this encounter. Cardiology: 10/17/2024 Assessment 1. Pre-kidney transplant, listed 2. 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) 3. ESRD (end stage renal disease) (HCC) 4. Hypertension, unspecified type 5. Type 2 diabetes mellitus with other kidney complication, 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 terminal gauger insulin use (HCC) 6. Atrial fibrillation, unspecified [...] of the time was also spent in [id number] interaction with the patient as well as [...] pre-kidney transplant evaluation. - Case request for [facility] placed - Follow up after [facility] completed Please note, recommendations are not final until attested/co-signed by the attending physician. Thank you for your consultation, please do not hesitate to contact us with any questions or concerns. Daniel Lay MD Cardiovascular Diseases Fellow PGY-4 [facility] Cardiology: 12/12/2022 (consult from ED visit) [place] Cardiology: 02/12/2022 [place] Cardiology: 03/19/2021 Pertinent Previous Committee Presentations: 11/24/2024 [...] Pt on Eliquis d/t A-Fib; ablation completed. [facility] completed 03/03/24 - normal coronaries. Reviewed txp [...] mg/kg Committee Discussion Details: Pt brought to [facility] to discuss possible listing. -Reviewed PMH [...] and ascending aorta. Pericardium No pericardial effusion. [facility]: 03/03/2024 Conclusion The coronary vessels are normal. [...] or text me on my cell phone [phone]. I appreciate the opportunity to participate in the care of your patient and look forward to being of service in the future as well. Sincerely, Kristel White MD, PhD, [facility] Bulk Intake Workergeriatric nurse assistant CXR: 08/05/2024 Findings/Impression: . No focal consolidation, [...] suggestion of sludge on EUS. Findings: The instrument lens grinder apprentice film was normal. The esophagus was successfully [...] stent, this can be done at the [place]. - Please avoid NSAIDs (i.e Motrin, Aleve, [...] remain persistently elevated. - [facility] for [facility] care - Discussed results with Dr. Chappell. Please followup with him at the [place] - Return to primary care physician as previously scheduled. - In the unusual situation that you develop abdominal pain, bleeding or other significant problems in the days following this procedure please call my office at [phone] to speak to my nurses. After hours and evenings please call [phone] and speak to the GI fellow oracle fusion middleware architect. Please tell them that Dr. Freeman did [...] this procedure please call my office at [phone] to speak to my nurses. After hours and evenings please call [phone] and speak to the GI fellow oracle fusion middleware architect. Please tell them that Dr. Freeman did [...] It is the impression of this social services counselor that Kemal Cali has several positive factors for Kidney transplant candidacy from a psychosocial perspective. Patient appears to have appropriate knowledge of illness. Patient has sufficient insurance coverage and stable financial situation for post transplant needs. No concerns regarding substance abuse, legal issues, or mental health needs. Patient has adequate support system and appropriate discharge plan. Send financial assistance resources to email [email or web address] to [address] [place] [id number] Plan: office worker to provide supportive services as needed. Patient remains a reasonable candidate for transplant from a psychosocial perspective. Psychiatric Consult Recommended: No Transplant Crucible Packer: Cesilia Rivera LMSW Abdominal Transplant Crucible Packer [phone] 2023 Caregivers: Primary is brother Nahum, Pt states He has a lot of options re:secondary. Took the [employer] CREWMEMBER forms to complete and return Call from pts ex- Lynnette who confirmed as a willing caregiver. She will return the forms matt. Answered questions about living donation and she requested the website to be sent to her email at [email or web address] : 11/23/2024 Transplant Nutrition Evaluation BMI: Body [...] (10/19/2024): Added automatically from request for surgery [id number] Resolved Problems Problem Noted Date Diagnosed Date [...] Comments Blood Pressure 127/55 11/18/2024 10:39 AM VENDING TECHNICIAN Pulse 57 11/18/2024 10:39 AM VENDING TECHNICIAN Temperature 36.5 C (97.7 F) 11/18/2024 10:39 AM VENDING TECHNICIAN Respiratory Rate 20 08/22/2024 9:01 AM VENDING TECHNICIAN Oxygen Saturation 100% 11/18/2024 10: 39 AM VENDING TECHNICIAN Inhaled Oxygen Concentration - - Weight 100.2 kg (220 lb 14.4 oz) 2024 10:00 AM VENDING TECHNICIAN Stated Height 176.5 cm (5' 9.5 ) 11/23/2024 10 :00 AM VENDING TECHNICIAN Body Mass Index 32.15 11/23/2024 10:00 AM VENDING TECHNICIAN Functional Status Functional Status Response Date of [...] CDT Office Visit [facility] - [address] [place] [address] Ravi Evans III, MD [address] [phone] 10/16/2025 10:20 AM VENDING TECHNICIAN Office Visit [facility] - Cardiology [address] [facility], [facility] [address] [place] [address] Radha Roper MD [address] [facility] OF CARDIOLOGY [address] [place] [address] [id number] Goals Goal Patient Goal Type Associated Problems Recent Progress Patient-Stated? Author Blood Pressure < 140/90 Blood Pressure 127/55(2024 10:39 AM VENDING TECHNICIAN) No Antonette Hill, talent acquisition partner Management General On track( 025 10:37 AM VENDING TECHNICIAN) No Victor Hugo Vergara, RICHARD Note: Expected end date: ongoing Interventions: Take all medications as prescribed Let your doctor know right away about any changes in your medications Make sure to request a refill of your medication at least one week prior to your last dose Medical Devices Implanted Type Area Income Tax Adjuster Device Identifier Shelf Expiration Date Model / Serial / Lot Prosthesis-07/12 Implanted:07/25 (Quantity not on file) Prosthesis Penile Prosthesis Description:Coloplast Titan 22 Penile implant and reservoir Procedures Procedure Name Priority Date/Time Associated Diagnosis Comments MD LIVER ELASTOGRAPHY Routine 11/18/2024 10:22 AM VENDING TECHNICIAN Pre-kidney transplant, 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) ESRD (end stage renal disease) (HCC) Hypertension, unspecified type Type 2 diabetes mellitus with other kidney complication, 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 penitentiary insulin use (HCC) HEPATITIS C ANTIBODY Routine [...] Recently Relevant to Health Maintenance Results * MD LIVER ELASTOGRAPHY (11/18/2024 10:22 AM VENDING TECHNICIAN) Narrative Dell Mcmillan MD - 11/18/2024 10:22 AM VENDING TECHNICIAN Dell Mcmillan MD 11/21/2024 4:11 PM [...] of liver-related events. J Hepatol (2021) 76: 1602-2720. Kelly PJ, Luis M, Aliza M, et al. Accuracy of FibroScan controlled attenuation parameter and liver stiffness measurement in assessing steatosis and fibrosis in patients with nonalcoholic fatty liver disease. Gastroenterology 2019;156:5561-4872. Jose DOWD, Kev R, [place] AUGUSTE, et [...] at-risk nonalcoholic steatohepatitis (MARTIN) in a [place] cohort and comparison to other non-invasive algorithms. PLoS ONE (2021) 17: f7763089. Sheldon AJ, James J, Ted ZM, et al. Enhanced diagnosis of advanced fibrosis and cirrhosis in individuals with NAFLD using FibroScan-based Agile scores. J Hepatol (2022) 78: 247-259. Cindy et al. Vibration-controlled transient elastography scores to predict liver-related events in steatotic liver disease. OLIVIA (2023) 331: 2498-8610 Fibroscan LSM can also be used with laboratory parameters without formulas to assess prognosis. According to the Baveno-VII criteria (Dave, 202), Fibroscan LSM <=15 kPa plus a platelet count of >=954u165/L rules out clinically significant portal hypertension (sensitivity [...] FIB-4 score (Tosine et al. Hepatology Communications 2019;3:3831-0499) or NAFLD Fibrosis score (Santa et al. Clinical Gastroenterology and Hepatology 2019;17:2409-4827 using routine clinical data. Notes: 1. Fibroscan [...] additional interpretive data was last updated 10/14/24.) [email or web address] Ban Alfaro MD PROCEDURE/MINOR SURGICAL ORDERABLES * HEMOGLOBIN A1C (08/05/2024 1:40 PM CDT) Hemoglobin A1c 5.5 <=5.6 % 08/06/2024 8:52 AM CDT [facility] Estimated Average Glucose 111 mg/dL 08/06/2024 8:52 AM CDT [facility] Comment: HbA1c Interpretation: Normal : < 5.7% Pre-diabetes: 5.7-6.4% Diabetes: Equal to or greater than 6.5% Test results diagnostic of diabetes should be repeated for confirmation. Treatment target values recommended by ADA and other clinical organizations should be used to evaluate metabolic control in patients. Reference: [place] Diabetes Association, Standards of Care in Diabetes [...] MD LAB - CHEMISTR Y ORDERABLES [facility] [address] [place] [address], [facility] [phone] * HEPATITIS C ANTIBODY (08/05/2024 1:40 PM CDT) Hepatitis C Antibody Non-react xavier Non-reac tive 08/05/2024 3:14 PM CDT [facility] Comment:Hepatitis C Antibody screen indicates no [...] Engel MD LAB - CHEMISTR Y ORDERABLES [facility] [address] [place] [address], [facility] [phone] from Last 3 Months or Most Recently Relevant to Health Maintenance Advance Directives * Full Code (Latest Code Status on File) Date Activated Date Inactivated Comments 03/02/2024 5:32 PM 03/02/2024 9:52 PM * Full Code Date Activated Date Inactivated Comments 01/28/2020 7:33 AM 02/03/2020 3:16 PM Care Teams Sales Representative Gas Service Relationship Specialty Start Date End Date Thao Mcqueen Update Information PCP - General 08/22/24
--- OUTSIDE RECORDS SUMMARY | 2024-12-05 00:23 | XMS_ITS | Encounter Summary ---
Author Name [facility] [place] Organization [facility] [place] Address [address] [place] [address] Care Team Providers Care Account Support Rep Name Role Phone ERIKA DEE Primary Care [...] PART A Jul 12, 2019 PART A [id number] PRASANNA KATZ PATIENT MEDICARE (WNR) MEDICARE (M) PART A Jul 12, 2019 PART A [id number] [phone] PRASANNA KATZ PATIENT Selected Encounter This section includes the information on record at [place] for the Encounter. Date/Time Encounter Type Encounter Description Reason Provider Source Jan 08, 2024 01:45 PM TREATED W[facility] PER [facility] ICD-10-CM N18.6 End stage renal disease KYLIE VILLAGOMEZ Jono Encounter Template Text not used by [place] Assessments - Encounter Diagnoses This section includes the primary and secondary diagnoses documented for the Encounter. 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 This section includes future appointments and future orders which are active, pending or scheduled. Future Appointments This section includes appointments that were scheduled to occur 6 months from the date of the Encounter, up to a maximum of 20 appointments. The data comes from all [place] treatment facilities. Appointment Date/Time Appointment Type Appointme nt Facility Name Jan 12, 2024 10:30 AM AMBULATORY - MEDICINE [facility] Jan 21, 2024 12:30 PM AMBULATORY - MEDICINE [facility] Jan 23, 2024 12:30 PM AMBULATORY - MEDICINE [facility] Jan 25, 2024 02:30 PM AMBULATORY - MEDICINE [facility] Jan 26, 2024 12:30 PM AMBULATORY - MEDICINE [facility] Jan 28, 2024 12:30 PM AMBULATORY - MEDICINE [facility] Feb 02, 2024 12:30 PM AMBULATORY - MEDICINE [facility] Feb 04, 2024 12:15 PM AMBULATORY - MEDICINE [facility] Feb 06, 2024 12:30 PM AMBULATORY - MEDICINE [facility] Feb 09, 2024 12:30 PM AMBULATORY - MEDICINE [facility] February 11, 2024 12:30 PM AMBULATORY - MEDICINE [facility] February 13, 2024 12:30 PM AMBULATORY - MEDICINE [facility] February 15, 2024 08:00 AM [facility] - NONE [facility] February 15, 2024 08:30 AM AMBULATORY - MEDICINE [facility] Apr 05, 2024 09:30 AM AMBULATORY - MEDICINE [facility] Apr 27, 2024 07:30 AM AMBULATORY - SURGERY [facility] May 02, 2024 08:00 AM [facility] NONE [facility] May 02, 2024 08:30 AM AMBULATORY - MEDICINE [facility] May 16, 2024 02:00 PM AMBULATORY - MEDICINE [facility] Lab Results: +/- 30 days of the encounter This section includes the Chemistry and Hematology Lab Results on record with [place] for the patient. Radiology Reports and Pathology Reports are provided separately, in subsequent sections. Lab Results This section contains the Chemistry/Hematology Results that were resulted 30 days before or 30 daysafter the date of the Encounter. Date/Time Source Result Type Result - Unit Interpretation Reference Range Comment Feb 04, 2024 05:00 PM [facility] URR-POST PANEL (STL) Specimen Type: PLASMA No comment entered. Ordering Provider: KYLER PURCELL Report Released Date/Time: Feb 04, 2024 01:42 PM Reporting Lab: [address] [address] Performing Lab: [address] [address] BUN-POST DIALYSIS 16.2 mg/dL 9.0-25.0 URR (STL) 70.4 67.0-100.0 Feb 04, 2024 12:45 PM [facility] RENAL PANEL Specimen Type: PLASMA Comment: No hemolysis noted. Ordering Provider: KYLER PURCELL Report Released Date/Time: Feb 04, 2024 01:42 PM Reporting Lab: [address] [address] Performing Lab: [address] [address] CREATININE 6.97 mg/dL H 0.7-1.3 UREA NITROGEN 54.7 mg/dL H 9.0-25.0 GLUCOSE 134 mg/dL H 72-99 SODIUM 142 meq/L 136-145 POTASSIUM 4.0 meq/L 3.5-5 CHLORIDE 105 meq/L 98-107 CARBON DIOXIDE 24 meq/L 22-31 CALCIUM 9.7 mg/dL 8.4-10.4 PHOSPHOROUS 4.8 mg/dL H 2.3-4.7 ALBUMIN 3.9 g/dL 3.4-5 EGFR (CKD-EPI 2020) 7.9 LL >60 Feb 02, 2024 04:30 PM [facility] URR-POST PANEL (STL) Specimen Type: PLASMA No comment entered. Ordering Provider: KYLER PURCELL Report Released Date/Time: Feb 02, 2024 03:39 PM Reporting Lab: [address] [address] Performing Lab: [address] [address] BUN-POST DIALYSIS 22.9 mg/dL 9.0-25.0 URR (STL) 60.9 L 67.0-100.0 Feb 02, 2024 11:50 AM [facility] RENAL PANEL Specimen Type: PLASMA Comment: No hemolysis noted. Ordering Provider: KYLER PURCELL Report Released Date/Time: Feb 02, 2024 07:35 AM Reporting Lab: [address] [address] Performing Lab: [address] [address] CREATININE 8.34 mg/dL H 0.7-1.3 UREA NITROGEN 58.6 mg/dL H 9.0-25.0 GLUCOSE 169 mg/dL H 72-99 SODIUM 142 meq/L 136-145 POTASSIUM 4.6 meq/L 3.5-5 CHLORIDE 111 meq/L H 98-107 CARBON DIOXIDE 20 meq/L L 22-31 CALCIUM 9.2 mg/dL 8.4-10.4 PHOSPHOROUS 3.6 mg/dL 2.3-4.7 ALBUMIN 3.7 g/dL 3.4-5 EGFR (CKD-EPI 2020) 6.4 LL >60 Feb 01, 2024 11:00 PM [facility] 24H UR CHEM PANEL (STL) Specimen Type: 24-HOUR URINE No comment entered. Ordering Provider: KYLER PURCELL Report Released Date/Time: Jan 28, 2024 04:55 PM Reporting Lab: [address] [address] Performing Lab: [facility] [address] [facility] [address] VOLUME 3289 mL SODIUM 24-HOUR URINE 226.941 H 40-220 POTASSIUM 24-HOUR URINE 35.8501 25-125 CHLORIDE 24-HOUR URINE 171.028 110-250 PROTEIN 24-HOUR URINE 1986.556 H 0-299.9 CREATININE 24-HOUR URINE [phone] Jan 28, 2024 05:29 PM [facility] CBC Specimen Type: BLOOD No comment entered. Ordering Provider: KYLER PURCELL Report Released Date/Time: Jan 28, 2024 05:07 PM Reporting Lab: [address] [address] Performing Lab: [address] [address] WBC 8.9 10*3/uL 3.6-11.2 RBC 2.96 10*6/uL [...] Jan 26, 2024 01:00 PM [facility] PTH, INTACT (STL) Specimen Type: SERUM No comment entered. Ordering Provider: KYLER PURCELL Report Released Date/Time: Jan 21, 2024 03:14 PM Reporting Lab: [address] [address] Performing Lab: [address] [address] PTH, INTACT (STL) 141.40 pg/mL H 8.7-77.7 Jan 26, 2024 01:00 PM [facility] RENAL PANEL Specimen Type: PLASMA Comment: No hemolysis noted. Ordering Provider: KYLER PURCELL Report Released Date/Time: Jan 21, 2024 03:14 PM Reporting Lab: [address] [address] Performing Lab: [address] [address] CREATININE 8.25 mg/dL H 0.7-1.3 UREA NITROGEN 63.1 mg/dL H 9.0-25.0 GLUCOSE 157 mg/dL H 72-99 SODIUM 137 meq/L 136-145 POTASSIUM 4.2 meq/L 3.5-5 CHLORIDE 100 meq/L 98-107 CARBON DIOXIDE 26 meq/L 22-31 CALCIUM 9.6 mg/dL 8.4-10.4 PHOSPHOROUS 4.9 mg/dL H 2.3-4.7 ALBUMIN 3.7 g/dL 3.4-5 EGFR (CKD-EPI 2020) 6.5 LL >60 Jan 26, 2024 01:00 PM [facility] IRON/TIBC PROFILE Specimen Type: SERUM No comment entered. Ordering Provider: KYLER PURCELL Report Released Date/Time: Jan 21, 2024 03:14 PM Reporting Lab: [address] [address] Performing Lab: [address] [address] TIBC 225 ug/dL L 250-450 TRANSFERRIN 180 mg/dL 163-344 IRON SATURATION 23 20-50 IRON 52 ug/dL L 65-175 Jan 26, 2024 01:00 PM [facility] FERRITIN Specimen Type: SERUM No comment entered. Ordering Provider: KYLER PURCELL Report Released Date/Time: Jan 21, 2024 03:14 PM Reporting Lab: [facility] [address] [facility] [address] Performing Lab: [address] [address] FERRITIN 118.78 ng/mL 22-275 Jan 26, 2024 01:00 PM [facility] CBC Specimen Type: BLOOD No comment entered. Ordering Provider: KYLER PURCELL Report Released Date/Time: Jan 21, 2024 03:14 PM Reporting Lab: [address] [address] Performing Lab: [address] [address] WBC 7.8 10*3/uL 3.6-11.2 RBC 2.95 10*6/uL [...] Jan 21, 2024 12:55 PM [facility] PT/INR NEW (STL-MA) Specimen Type: PLASMA No comment entered. Ordering Provider: KYLER PURCELL Report Released Date/Time: Jan 21, 2024 12:43 PM Reporting Lab: [address] [address] Performing Lab: [address] [address] PROTIME 15.9 s H 9.4-12.5 INR VALUE 1.4 {INR} Jan 21, 2024 12:55 PM [facility] RENAL PANEL Specimen Type: PLASMA Comment: No hemolysis noted. Ordering Provider: KYLER PURCELL Report Released Date/Time: Jan 21, 2024 12:41 PM Reporting Lab: [address] [address] Performing Lab: [address] [address] CREATININE 8.11 mg/dL H 0.7-1.3 UREA NITROGEN 82.6 mg/dL H 9.0-25.0 GLUCOSE 114 mg/dL H 72-99 SODIUM 139 meq/L 136-145 POTASSIUM 5.1 meq/L H 3.5-5 CHLORIDE 109 meq/L H 98-107 CARBON DIOXIDE 19 meq/L L 22-31 CALCIUM 9.3 mg/dL 8.4-10.4 PHOSPHOROUS 4.1 mg/dL 2.3-4.7 ALBUMIN 3.8 g/dL 3.4-5 EGFR (CKD-EPI 2020) 6.6 LL >60 Jan 14, 2024 11:55 AM [facility] RENAL PANEL Specimen Type: PLASMA Comment: No hemolysis noted. Ordering Provider: KYLER PURCELL Report Released Date/Time: Jan 13, 2024 07:58 AM Reporting Lab: [address] [address] Performing Lab: [address] [address] CREATININE 8.05 mg/dL H 0.7-1.3 UREA NITROGEN 70.7 mg/dL H 9.0-25.0 GLUCOSE 155 mg/dL H 72-99 SODIUM 140 meq/L 136-145 POTASSIUM 5.1 meq/L H 3.5-5 CHLORIDE 107 meq/L 98-107 CARBON DIOXIDE 21 meq/L L 22-31 CALCIUM 9.6 mg/dL 8.4-10.4 PHOSPHOROUS 4.8 mg/dL H 2.3-4.7 ALBUMIN 4.1 g/dL 3.4-5 EGFR (CKD-EPI 2020) 6.7 LL >60 Jan 11, 2024 11:36 AM [facility] GLUCOSE,BLOOD-poct (STL) Specimen Type: BLOOD Comment: Test Performed by: [id number] Meter #: [id number] Ordering Provider: LINO,MED Report Released Date/Time: Jan 11, 2024 11:50 AM Reporting Lab: [address] [address] Performing Lab: [address] [address] GLUCOSE,BLOOD- poct (STL) 106 mg/dL H 72-99 Jan 11, 2024 11:07 AM [facility] GLUCOSE,BLOOD-poct (STL) Specimen Type: BLOOD Comment: Test Performed by: [id number] Meter #: [id number] Ordering Provider: LINOMED Report Released Date/Time: Jan 11, 2024 11:18 AM Reporting Lab: [address] [address] Performing Lab: [address] [address] GLUCOSE,BLOOD- poct (STL) 109 mg/dL H 72-Jan 11, 2024 05:12 AM [facility] GLUCOSE,BLOOD-poct (STL) Specimen Type: BLOOD Comment: Test Performed by: [id number] Meter #: [id number] Ordering Provider: LINO,MED Report Released Date/Time: Jan 11, 2024 05:25 AM Reporting Lab: [address] [address] Performing Lab: [place] [address] [facility] [address] GLUCOSE,BLOOD- poct (STL) 88 mg/dL 72-Jan 10, 2024 08:19 PM [facility] GLUCOSE,BLOOD-poct (STL) Specimen Type: BLOOD Comment: Test Performed by: [id number] Meter #: [id number] Ordering Provider: LIDIA HUYNH Report Released Date/Time: Jan 10, 2024 08:31 PM Reporting Lab: [place] [address] [facility] [address] Performing Lab: [address] [address] GLUCOSE,BLOOD- poct (STL) 153 mg/dL H 72-Jan 10, 2024 04:15 PM [facility] GLUCOSE,BLOOD-poct (STL) Specimen Type: BLOOD Comment: Test Performed by: [id number] Meter #: [id number] Ordering Provider: LIDIA HUYNH Report Released Date/Time: Jan 10, 2024 05:05 PM Reporting Lab: [address] [address] Performing Lab: [address] [address] GLUCOSE,BLOOD- poct (STL) 84 mg/dL 72-Jan 10, 2024 11:31 AM [facility] GLUCOSE,BLOOD-poct (STL) Specimen Type: BLOOD Comment: Test Performed by: [id number] Meter #: [id number] Ordering Provider: LINOMED Report Released Date/Time: Jan 10, 2024 12:03 PM Reporting Lab: [address] [address] Performing Lab: [address] [address] GLUCOSE,BLOOD- poct (STL) 99 mg/dL 72-Jan 10, 2024 04:45 AM [facility] GLUCOSE,BLOOD-poct (STL) Specimen Type: BLOOD Comment: Test Performed by: [id number] Meter #: [id number] Ordering Provider: LIDIA HUYNH Report Released Date/Time: Jan 10, 2024 05:29 AM Reporting Lab: [place] [address] [address] [facility] [address] Performing Lab: [place] [address] [facility] [address] GLUCOSE,BLOOD- poct (STL) 109 mg/dL H 72-99 Jan 09, 2024 08:08 PM [facility] GLUCOSE,BLOOD-poct (STL) Specimen Type: BLOOD Comment: Test Performed by: [id number] Meter #: [id number] Ordering Provider: LIDIA HUYNH Report Released Date/Time: Jan 09, 2024 08:28 PM Reporting Lab: [place] [address] [facility] [address] Performing Lab: [place] [address] [facility] [address] GLUCOSE,BLOOD- poct (STL) 110 mg/dL H 72-99 Jan 09, 2024 04:19 PM [facility] GLUCOSE,BLOOD-poct (STL) Specimen Type: BLOOD Comment: Test Performed by: [id number] Meter #: [id number] Ordering Provider: LIDIA HUYNH Report Released Date/Time: Jan 09, 2024 04:34 PM Reporting Lab: [place] [address] [facility] [address] Performing Lab: [place] [address] [facility] [address] GLUCOSE,BLOOD- poct (STL) 119 mg/dL H 72-99 Jan 09, 2024 02:30 PM [facility] MAGNESIUM Specimen Type: PLASMA Comment: No hemolysis noted. Ordering Provider: TATI ZAVALA Report Released Date/Time: Jan 09, 2024 07:51 AM Reporting Lab: [place] [address] [facility] [address] Performing Lab: [place] [address] [facility] [address] MAGNESIUM 1.6 mg/dL 1.6-2.6 Jan 09, 2024 02:30 PM [facility] RENAL PANEL Specimen Type: PLASMA Comment: No hemolysis noted. Ordering Provider: TATI ZAVALA Report Released Date/Time: Jan 09, 2024 07:51 AM Reporting Lab: [address] [address] Performing Lab: [address] [address] CREATININE 5.13 mg/dL H 0.7-1.3 UREA NITROGEN 46.2 mg/dL H 9.0-25.0 GLUCOSE 177 mg/dL H 72-99 SODIUM 136 meq/L 136-145 POTASSIUM 4.0 meq/L 3.5-5 CHLORIDE 101 meq/L 98-107 CARBON DIOXIDE 23 meq/L 22-31 CALCIUM 8.6 mg/dL 8.4-10.4 PHOSPHOROUS 2.7 mg/dL 2.3-4.7 ALBUMIN 3.6 g/dL 3.4-5 EGFR (CKD-EPI 2020) 11.5 LL >60 Jan 09, 2024 12:27 PM [facility] GLUCOSE,BLOOD-poct (STL) Specimen Type: BLOOD Comment: Test Performed by: [id number] Meter #: [id number] Ordering Provider: LIDIA HUYNH Report Released Date/Time: Jan 09, 2024 12:38 PM Reporting Lab: [place] [address] [facility] [address] Performing Lab: [address] [address] GLUCOSE,BLOOD- poct (STL) 98 mg/dL 72-99 Jan 09, 2024 07:15 AM [facility] GLUCOSE,BLOOD-poct (STL) Specimen Type: BLOOD Comment: Test Performed by: [id number] Meter #: [id number] Ordering Provider: LIDIA HUYNH Report Released Date/Time: Jan 09, 2024 07:58 AM Reporting Lab: [place] [address] [facility] [address] Performing Lab: [place] [address] [facility] [address] GLUCOSE,BLOOD- poct (STL) 86 mg/dL 72-99 Jan 08, 2024 09:04 PM [facility] GLUCOSE,BLOOD-poct (STL) Specimen Type: BLOOD Comment: Test Performed by: [id number] Meter #: [id number] Ordering Provider: LIDIA HUYNH Report Released Date/Time: Jan 08, 2024 09:47 PM Reporting Lab: [place] [address] [facility] [address] Performing Lab: [address] [address] GLUCOSE,BLOOD- poct (STL) 90 mg/dL 72-99 Jan 08, 2024 09:01 PM [facility] HEPATITIS B SURFACE AB PNL Specimen Type: SERUM No comment entered. Ordering Provider: EFREN TAYLOR Report Released Date/Time: Jan 08, 2024 02:35 PM Reporting Lab: [place] [address] [facility] [address] Performing Lab: [place] [address] [facility] [address] HEP B Surface Ab-HBsAB (STL) REACTIVE m[IU]/mL Nonreactive HEP Bs AB-QUANT (STL) 63.22 m[IU]/mL Jan 08, 2024 09:01 PM [facility] HEP B CORE AB TOTAL. (STL) Specimen Type: SERUM No comment entered. Ordering Provider: EFREN TAYLOR Report Released Date/Time: Jan 08, 2024 02:35 PM Reporting Lab: [place] [address] [facility] [address] Performing Lab: [place] [address] [facility] [address] HEP B CORE AB TOTAL. (STL) Nonreactive Nonreactive Jan 08, 2024 09:01 PM [facility] HEP HB S Ag ([place]) (STL) Specimen Type: SERUM No comment entered. Ordering Provider: EFREN TAYLOR Report Released Date/Time: Jan 08, 2024 02:35 PM Reporting Lab: [address] [address] Performing Lab: [place] [address] [facility] [address] HEP HB S Ag ([place]) (STL) Nonreactive Nonreactive Jan 08, 2024 04:47 PM [facility] GLUCOSE,BLOOD-poct (L) Specimen Type: BLOOD Comment: Test Performed by: [id number] Meter #: [id number] Ordering Provider: LIDIA HUYNH Report Released Date/Time: Jan 08, 2024 05:09 PM Reporting Lab: [address] [address] Performing Lab: [address] [address] GLUCOSE,BLOOD- poct (STL) 95 mg/dL 72-99 Jan 08, 2024 11:26 AM [facility] GLUCOSE,BLOOD-poct (STL) Specimen Type: BLOOD Comment: Test Performed by: [id number] Meter #: [id number] Ordering Provider: LIDIA HUYNH Report Released Date/Time: Jan 08, 2024 11:37 AM Reporting Lab: [address] [address] Performing Lab: [address] [address] GLUCOSE,BLOOD- poct (STL) 105 mg/dL H 72-99 Jan 08, 2024 07:01 AM [facility] RENAL PANEL Specimen Type: PLASMA Comment: No hemolysis noted. Ordering Provider: LIZETTE GRIFFIN Report Released Date/Time: Jan 07, 2024 11:24 PM Reporting Lab: [address] [address] Performing Lab: [address] [address] CREATININE 8.50 mg/dL H 0.7-1.3 UREA NITROGEN 88.2 mg/dL H 9.0-25.0 GLUCOSE 70 mg/dL L 72-99 SODIUM 139 meq/L 136-145 POTASSIUM 5.4 meq/L H 3.5-5 CHLORIDE 110 meq/L H 98-107 CARBON DIOXIDE 19 meq/L L 22-31 CALCIUM 9.4 mg/dL 8.4-10.4 PHOSPHOROUS 5.1 mg/dL H 2.3-4.7 ALBUMIN 3.8 g/dL 3.4-5 EGFR (CKD-EPI 2020) 6.3 LL >60 Jan 08, 2024 06:37 AM [facility] GLUCOSE,BLOOD-poct (STL) Specimen Type: BLOOD Comment: Test Performed by: [id number] Meter #: [id number] Ordering Provider: LIDIA HUYNH Report Released Date/Time: Jan 08, 2024 06:48 AM Reporting Lab: [address] [address] Performing Lab: [address] [address] GLUCOSE,BLOOD- poct (STL) 86 mg/dL 72-99 Jan 07, 2024 11:58 PM [facility] RENAL PANEL Specimen Type: PLASMA Comment: No hemolysis noted. Ordering Provider: LIZETTE GRIFFIN Report Released Date/Time: Jan 07, 2024 11:38 PM Reporting Lab: [address] [address] Performing Lab: [address] [address] CREATININE 8.68 mg/dL H 0.7-1.3 UREA NITROGEN 92.6 mg/dL H 9.0-25.0 GLUCOSE 143 mg/dL H 72-99 SODIUM 138 meq/L 136-145 POTASSIUM 5.0 meq/L 3.5-5 CHLORIDE 111 meq/L H 98-107 CARBON DIOXIDE 17 meq/L L 22-31 CALCIUM 8.8 mg/dL 8.4-10.4 PHOSPHOROUS 3.8 mg/dL 2.3-4.7 ALBUMIN 3.8 g/dL 3.4-5 EGFR (CKD-EPI 2020) 6.1 LL >60 Jan 07, 2024 11:36 PM [facility] GLUCOSE,BLOOD-poct (STL) Specimen Type: BLOOD Comment: Test Performed by: [id number] Meter #: [id number] Ordering Provider: LIDIA MOSCOSO Report Released Date/Time: Jan 07, 2024 11:47 PM Reporting Lab: [facility] [address] [facility] [id number] Performing Lab: [facility] [address] [facility] [address] GLUCOSE,BLOOD- poct (STL) 157 mg/dL H 72-99 Jan 07, 2024 11:30 PM [facility] MRSA SURVL NARES DNA Specimen [...] Jan 07, 2024 11:24 PM Reporting Lab: [facility] [address] [facility] [address] Performing Lab: [facility] [address] [place] [id number] MRSA SURVL NARES DNA Negative Negative Jan 07, 2024 09:08 PM [facility] POTASSIUM Specimen Type: PLASMA Comment: No hemolysis noted. Ordering Provider: ANNA CALI Report Released Date/Time: Jan 07, 2024 08:38 PM Reporting Lab: [facility] [address] [facility] [address] Performing Lab: [facility] [address] [facility] [address] POTASSIUM 5.7 meq/L H 3.5-5 Jan 07, 2024 07:30 PM [facility] URINALYSIS (STL-PB) Specimen Type: URINE No comment entered. Ordering Provider: ANNA CALI Report Released Date/Time: Jan 07, 2024 05:18 PM Reporting Lab: [address] [address] Performing Lab: [facility] [address] [place] [id number] URINE COLOR Colorless Yellow U.BILIRUBIN Negative mg/dL [...] Jan 07, 2024 05:30 PM [facility] BRAIN NATRIURETIC PEPTIDE Specimen Type: PLASMA No comment entered. Ordering Provider: GRACIELA MANN Report Released Date/Time: Jan 07, 2024 04:59 PM Reporting Lab: [facility] [address] [facility] [address] Performing Lab: [address] [address] BRAIN NATRIURETIC PEPTIDE 59.0 pg/mL 0-100 Jan 07, 2024 05:30 PM [facility] COVID-19 DIAGNOSTIC (FLU/RSV)(STL) Specimen Type: [...] Jan 07, 2024 04:59 PM Reporting Lab: [place] [address] Performing Lab: [place] [address] INFLUENZA A Negative Negative INFLUENZA B Negative Negative COVID-19 (STL-PB) Not Detected Not Detected RSV (Cepheid) NEGATIVE Negative Jan 07, 2024 05:30 PM [facility] CBC Specimen Type: BLOOD No comment entered. Ordering Provider: GRACIELA MANN Report Released Date/Time: Jan 07, 2024 04:59 PM Reporting Lab: [place] [address] Performing Lab: [address] WBC 9.2 10*3/uL 3.6-11.2 RBC 3.81 10*6/uL [...] 10*3/uL 0.00-0.60 BASOPHILS, ABSOLUTE 0.03 10*3/uL 0.00-0.20 Jan 07, 2024 05:30 PM [facility] COMPREHENSIVE METABOLIC PANEL Specimen Type: PLASMA Comment: Aspartate Transaminase result may show positive bias due to hemolysis. K result canceled due to hemolysis. Specimen moderately hemolyzed. K cancelled due to moderate hemolysis. Called to : Phillip Cee RN at: [id number] on: 01/07/2024 by: TENNILLE Ordering Provider: GRACIELA MANN Report Released Date/Time: Jan 07, 2024 04:59 PM Reporting Lab: [address] [address] Performing Lab: [address] [address] CREATININE 8.88 mg/dL H 0.7-1.3 UREA NITROGEN [...] 8-40 EGFR (CKD-EPI 2020) 5.9 LL >60 Dec 11, 2023 12:02 PM [facility] PTH, INTACT (STL) Specimen Type: SERUM No comment entered. Ordering Provider: KYLER PURCELL Report Released Date/Time: Dec 10, 2023 03:57 PM Reporting Lab: [address] [address] Performing Lab: [address] [address] PTH, INTACT (STL) 527.70 pg/mL H 8.7-77.7 Dec 11, 2023 12:02 PM [facility] RENAL PANEL Specimen Type: PLASMA Comment: No hemolysis noted. Ordering Provider: KYLER PURCELL Report Released Date/Time: Dec 10, 2023 03:57 PM Reporting Lab: [address] [address] Performing Lab: [address] [address] CREATININE 8.13 mg/dL H 0.7-1.3 UREA NITROGEN 69.9 mg/dL H 9.0-25.0 GLUCOSE 163 mg/dL H 72-99 SODIUM 140 meq/L 136-145 POTASSIUM 5.4 meq/L H 3.5-5 CHLORIDE 106 meq/L 98-107 CARBON DIOXIDE 22 meq/L 22-31 CALCIUM 8.6 mg/dL 8.4-10.4 PHOSPHOROUS 3.7 mg/dL 2.3-4.7 ALBUMIN 3.9 g/dL 3.4-5 EGFR (CKD-EPI 2020) 6.6 LL >60 Dec 11, 2023 12:02 PM [facility] CBC Specimen Type: BLOOD No comment entered. Ordering Provider: KYLER PURCELL Report Released Date/Time: Dec 10, 2023 03:57 PM Reporting Lab: [address] [address] Performing Lab: [address] [address] WBC 8.4 10*3/uL 3.6-11.2 RBC 3.84 10*6/uL [...] 10*3/uL 0.00-0.20 Dec 11, 2023 12:02 PM [facility] MAGNESIUM Specimen Type: PLASMA No comment entered. Ordering Provider: KYLER PURCELL Report Released Date/Time: Dec 11, 2023 10:17 AM Reporting Lab: [facility] [address] [facility] [address] Performing Lab: [facility] [address] [facility] [address] MAGNESIUM 1.3 mg/dL L 1.6-2.6 Vital Signs: All taken on the encounter date This section contains inpatient and outpatient Vital Signs collected on the date of the Encounter. Date/Time Temperature Pulse Blood Pressure Respiratory Rate SP02 Pain Height Weight Body Mass Index Source Jan 08, 2024 11:41 PM 0 [facility] Jan 08, 2024 10:45 PM 7 [facility] Jan 08, 2024 09:03 PM 97.9 72 155/87 19 99 7 [facility] Jan 08, 2024 04:42 PM 97.9 65 143/78 18 95 6 [facility] Jan 08, 2024 09:14 AM 6 [facility] Social History: Smoking Status (Most current) and Tobacco Use (All prior to encounter date) This section includes the most current, and the historical, smoking and tobacco- related health factors from the [place] facility where the Encounter took place. Current Smoking Status This section includes the most current smoking, or tobacco-related health factor, from the [place] facility where the Encounter took place. Date/Time Current Smoking Status Comment Ester shearer Jun 21, 2023 01:14 PM ORYX ADMIT TOBACCO SCREEN NO [facility] Tobacco Use History This section includes a history of the smoking, or tobacco-related health factors, that were collected on or before the date of the Encounter. The data comes from the [place] facility where the Encounter took place. Date/Time Smoking Status/Tobacco Use Comment F acility Dec 12, 2022 04:00 PM ORYX ADMIT TOBACCO SCREEN NO [facility] Jun 25, 2022 03:24 PM VA-TOBACCO FORMER USER [facility] Jun 25, 2022 03:24 PM VA-TOBACCO QUIT 15 YRS OR MORE [facility] Dec 23, 2021 04:59 PM ORYX ADMIT TOBACCO SCREEN REFUSED [facility] May 24, 2020 11:27 PM ORYX ADMIT TOBACCO SCREEN NO [facility] Dec 12, 2019 10:24 AM VA-TOBACCO FORMER USER [facility] Dec 12, 2019 10:24 AM VA-TOBACCO QUIT 15 YRS OR MORE [facility] Aug 03, 2019 02:11 AM ORYX ADMIT TOBACCO SCREEN REFUSED [facility] Oct 12, 2018 01:14 AM QUIT TOBACCO >7 YEARS AGO [facility] Oct 11, 2018 03:33 PM ORYX ADMIT TOBACCO SCREEN NO [facility] Sep 07, 2018 09:13 PM ORYX ADMIT TOBACCO SCREEN NO [facility] Sep 07, 2018 07:52 PM QUIT TOBACCO >7 YEARS AGO [facility] Advance Directives: All historical and current Section Date Range: From patient's date of to the date document was created. This section includes ALL of a patient's completed or amended [place] Advance and Rescinded Directives. The entries below indicate that a directive exists for the patient, but an actual copy is not included with this document. The data comes from all [place] facilities. Date Advance Directives Provider Source Dec 17, 2022 ADVANCE DIRECTIVE BIJAN MERRITT [facility] Feb 09, 2020 ADVANCE DIRECTIVE DISCUSSION MELY LUCIANO [facility] Feb 02, 2018 ADVANCE DIRECTIVE BEAU ALTAMIRANO [facility] Nov 29, 2006 ADVANCE DIRECTIVE MARELY CHACON L[facility]ERRY [facility] Radiology Reports: +/- 30 days of [...] the Encounter. The data comes from all [place] treatment facilities. Date/Time Radiology Report Provider Source Jan 07, 2024 08:01 PM CHEST PORTABLE: NAGI KATZ [id number] -1955 M Exm Date: JAN 07, 2024@20:01 Req Phys: ANNA CALI Loc: -EMERGENCY DEPT 3RD SHIFT (R Img Loc: -MAIN RADIOLOGY SUITE Service: Unknown (Case [id number] COMPLETE) CHEST PORTABLE (RAD Detailed) CPT:00126 Proc Modifiers : Portable Reason for Study: weakness, ESRD Clinical History: Report Status: Verified Date Reported: JAN 07, 2024 Date Verified: JAN 07, 2024 Automotive Fuel Injection Servicer E-Sig: Report: CHEST PORTABLE HISTORY: weakness, ESRD COMPARISON: July 26, 2023 TECHNIQUE: One view of the chest was performed at the local [facility] facility. images were received by the [place] National Teleradiology Program (NTP) for interpretation. FINDINGS: Bilateral peribronchial thickening. Patchy bilateral lower lobe lung opacities. Mildly tortuous aorta. No acute bony abnormalities. Impression: 1. Bilateral peribronchial thickening. 2. Patchy bilateral lung opacities likely represent atelectasis. 3. No pneumothorax. READING PHYSICIAN: Madhu Patton M.D. -[id number] 01/07/2024 19:10 PDT [facility] National Teleradiology Program [phone] (For Medical Practitioner Use Only) Attention Patients / Veterans: If you have questions or concerns about these test results, please contact your ordering provider or primary care team. Primary Interpreting Staff: RADIOLOGY,OUTSIDE SERVICE, Staff Physician / RADIOLOGY,OUTSIDE SERVICE [facility] Encounter Notes: All associated encounter notes This section contains the clinical notes associated to the Encounter. Date/Time Encounter Note(s) Provider Source Jan 08, 2024 04:38 PM DIALYSIS NOTE: LOCAL TITLE: HEMODIALYSIS RUNSHEET APPOINTMENT ST STANDARD TITLE: DIALYSIS NOTE DATE OF NOTE: JAN 08, 2024@16:38:49 ENTRY DATE: JAN 08, 2024@16:38:49 AUTHOR: ASH VILLAGOMEZ COSIGNER: URGENCY: routine STATUS: COMPLETED Dialysis [place] Appointment on Jan 08, 2024@13:45 Patient: NAGI KATZ Treatment Date: 08-Jan-2024 1345 Status: Discharged Latest Lab Result: URR: (, ) Kt/V: (, ) HgB: (, ) HCT: (, ) Diagnosis: End stage renal disease Patient Type: Inpatient Allergies: MORPHINE Resuscitate: [x] YES [ ] NO HD Summary Tables TREATMENT SUMMARY Treatment Start Time 08-Jan-2024 134 Treatment End Time 08-Jan-2024 1532 Duration(ordered): 2:00 Duration(manually adjusted): 1:46 Weights (Kg) and Fluid Removed (L): Date Pre Weight Target Weight Post Weight Excess Weight IDW Goal Weight Target UF Achieved UF Current 103.00 103.20 0.20 103.00 0.00 0.35 Blood Pressures (mmHg) & Fluid intake (mL) during treatment: Date Pre BP Post BP Lowest BP Highest BP IVF Given (mL) PO Fluid (mL) Current Lying 139/79 Lying 126/69 129/74 139/73 -- -- -- -- Pulse and Temp: Date Pre Pulse Post Pulse Lowest Pulse Highest Pulse Pre Temp Post Temp Current Lying 64 Lying 66 62 64 97.9 -- -- -- -- HD Times Date Prescribed Time Achieved Time Treatment Start Treatment End Current 2:00 1:46 1345 1532 Day's Order Related Problem: End stage renal disease Access Type: Fistula Access Site: VIRGIE Backup Access: Backup Access Site: Needle Gauge: 17 gauge 1 Freezing: [ ] YES [x] NO Machine Type: Melville Gambro Isolation: [ ] YES [x] NO Conventional HD Prosthesis(kg): Wheelchair(kg): Target Weight(kg): 103.00 Duration(h): 2:00 or Target UF(kg): 0.00 Frequency(x/wk): 1.00 Dialysate Temp(C): 37.00 Dialysis Type: [ ] daytime [ ] nocturnal Prescribed BVP(L): Dialysate Type: Saline Inf. (mL): SENIOR CLINICAL DATA ANALYST Blood Flow(ml/min): Hemodiafiltr. Volume(l): Hemodiafiltr. Fluid Type: Fractional Urea Distribution Space: 0.00 Prescribed KT/V: Process: Hemodialysis Procedure: Daily dialysis treatment Dialyzer: Nipro Elisio - 19H Max. reuses: Dialyzer 2: Tubing: K+(mmol/L): 2 Ca+(mmol/L): 2.5 Glucose(mmol/L): Mg+(mmol/L): Profiles: Initial values: Ramping: Dialysate Flow(ml/min): 400.00 Blood Flow(ml/min): 200 Bicarb(mmol/L): 35 Na+(mmol/L): 138 UFR(kg/hr : ml/kg/hr): BTM Function: Comments: Ok to use Tablo if necessary Anticoagulant: HEPARIN NA (PORK) 1000UNT Prebolus: 1000.00 Hourly: Cutoff time(min): Units: UNIT Post Art Instill: Post Glen Instill: Heparin Option: Instructions: Day's Hemodialysis Order Changes: Time Parameter Old Value New Value Comments Verified Verified Time Verified By 1322 Access Type Fistula No reason for change NO given 1323 Access Site VIRGIE No reason for change NO given 1621 Needle Gauge 17 gauge 1 No reason for change NO given == Access ======== Access Type: Fistula only PRE POST Bruit [...] [x] NO Hemostasis Time: Arterial Port (min): 15 Venous Port (min): 15 Cannulated Glen: 1 Staff: IAM RENDON Cannulated Art: 1 Staff: IAM RENDON General: Today's Assessment: cannulated by Iam == Predialysis ==== Extra Treatment: [ ] YES [x] NO Received From: Staff On: Station: Chair 01 Machine #: C - 12 Resp Caregiver: Treat Caregiver: Arrival Time: Mode: stretcher By/With: transporter Vital Signs Temp(C): 97.90 Resp: 18 Time: 1345 Lying BP: 139/79 Lying Pulse: 64 Time: BP: Pulse: Weights Measure Wt(kg): 103.20 Target Weight(kg): 103.00 Prosthesis Wt(kg): or Target UF(kg): 0.00 Wheelchair Wt(kg): Weight Change(kg): Current Wt(kg): 103.20 Excess Weight(kg): 0.20 Total Fluid Admin(kg): Expected UF Vol(kg): 0.20 Target TMP(mm/Hg): UFR(kg/hr : ml/kg/hr): 0.10 : 1.0 Patient Condition: 08-Jan-2024 1621 ASH VILLAGOMEZ No complaints offered, Confirmed correct pt, Alert and oriented Nursing Assessment: 08-Jan-2024 1446 ASH VILLAGOMEZ INSURANCE EXAMINING CLERK PRE-ASSESSMENT Time of assessment [ MENTAL STATUS: [x ]Alert & Oriented x 3 Comment:[ [ [...] lower lobe [ ]Bilateral Comment:[ EDEMA: [ x]No edema noted [ ]Face [ ]Abdomen [ ]Bilateral UE [ ]Left UE [ ]Right UE [ ] Bilateral LE [ ]Left LE [ ]Right LE Comment:[ tx started per policy. No pain/distress noted or voiced Comments:[ HD Diet Topics covered with this education session include: [ x ] Recommendations for daily fluid intake [ ] Recommendations for daily potassium intake in the form of high, medium and low potassium foods with pamphlet provided listing foods by category [x ] Recommendations for daily phosphorus intake in diet [ ] Importance of including good protein sources with each meal [x ] Importance of limiting intake of preprocessed foods [ ] Recommendations for restaurant eating Learner Type: Delivery Method: [ ] Family [ ] Handout [ x] Patient [ ] Lecture [ ] Care Provider Patient and/or Caregiver Learning Evaluation: [ ] Excellent - Demonstrates Independently [x ] Very Good - Explains in Own Words [ ] Good - Verbalizes Understanding [ ] Fair - Demonstrates With Assistance [ ] Follow Up Required - Requires Follow up [ ] Poor - Needs Assistance Comments: [ expressed understanding. Acknowledged On: By: Pain: Acuity: 0 Type: Location: Measures: Heparin: Pump Start At: 08-Jan-2024 1345 By: ASH VILLAGOMEZ Hourly Rate: Bolus: 1000.00 Same Syringe: [ ] YES [x] NO Total in Syringe: Verified By: Time: Communication: Preferred Language: Argentine Providier Proficient: [ ] YES [x] NO Sand Caster Apprentice Desired: [ ] YES [x] NO Offered: [ ] YES [x] NO == Dialysis Log DIALYSIS LOG Start Date/Time: 08-Jan-2024 Table 1: Dialysis Data Time BP MAP Pulse BFR BVP AP SENIOR CLINICAL DATA ANALYST TMP UFR TFR HEP Hep Com 1345 139/73 64 190 0.0 -80 70 20 0.20 : 1.9 0.00 0.0 1347 133/69 0.0 62 220 0.2 -130 140 20 0.20 : 1.9 0.00 0.0 1402 136/69 0.0 62 220 3.5 -140 150 15 0.20 : 1.9 0.05 0.0 1417 138/68 0.0 62 220 6.8 -160 160 10 0.20 : 1.9 0.09 0.0 1432 138/73 0.0 62 220 10.1 -180 150 10 0.20 : 1.9 0.14 0.0 1447 129/74 0.0 63 220 13.4 -180 160 10 0.20 : 1.9 0.21 0.0 1502 137/71 0.0 63 220 16.7 -150 160 15 0.20 : 1.9 0.26 0.0 1517 138/70 0.0 64 220 20.0 -170 170 10 0.20 : 1.9 0.31 0.0 1532 136/81 0 22.9 30 10 -15 0.00 : 0.0 0.35 0.0 Table 2: Dialysate Bath Time DFR ADV Temp K Ca Na HC03 1345 600.00 36.90 0.00 0.00 1347 600.00 36.80 0.00 0.00 1402 600.00 37.00 0.00 0.00 1417 600.00 37.00 0.00 0.00 1432 600.00 36.90 0.00 0.00 1447 600.00 36.90 0.00 0.00 1502 600.00 36.90 0.00 0.00 1517 600.00 37.10 0.00 0.00 1532 600.00 37.00 0.00 0.00 Table 3: Patient Assessment Acknowledge Time Author Access Visible Patient Status [x] YES [ ] NO tx started per policy. No pain/distress noted or voiced [x] YES [ ] NO No pain/distress noted or voiced [x] YES [ ] NO No pain/distress noted or voiced [x] YES [ ] NO No pain/distress noted or voiced [x] YES [ ] NO No pain/distress noted or voiced [x] YES [ ] NO No pain/distress noted or voiced [x] YES [ ] NO No pain/distress noted or voiced [x] YES [ ] NO No pain/distress noted or voiced [x] YES [ ] NO tx ended per policy. No pain/distress noted or voiced == Medication Log Medication Log Start Date/Time: == Events Log ==== Time Resolved Complication Comments Author Brigitte galloway Nurse == Postdialysis === Clotted: [ ] YES [x] NO Infiltrated: [ ] YES [x] NO Extra Treatment: [ ] YES [x] NO Procedure: Daily dialysis treatment Stop Date/Time: 08-Jan-2024 1532 Dialysis Time(hrs): 1:46 Staff Off: Effective Time(hrs): Resp Caregiver: Departure Time: 1626 By/With: transporter Mode: stretcher Visit Disposition: Discharged Home (private dwelling, not an institution, no support services) Patient Sent To: Pain Acuity: 0 Type: Location Measures Measures Measures Weights Measured Wt.(kg): 103.20 Prosthesis Wt.(kg): Wheelchair Wt(kg): Post Dialysis Wt(kg): 103.20 Target Weight(kg): 103.00 Target UF(kg): 0.00 Removed Wt(kg): 0.00 Fluid Removed(kg): 0.35 Effective UFR (kg/hr:ml/kg/hr): -58.42 : -566.0 Dialysate Used(L): 63.60 Patient Status Temp(C): Resp: Lying BP: 126/69 Lying Pulse: 66 BP: Pulse: Lowest BP: 129/74 BV Processed: Heparin Total Ordered: 1000.00 Total Infused: Left in Syringe: Verified At: By: 2nd measurement psychologist: By: Fluid Intake Total Ingested(kg): Total HDF Administered(kg): Avg HDF(kg/hr): Hematocrit(%): Hemoglobin(mg/dL): KT/V: Relative Blood Volume(%): Final Effective Ionic Dialysance: Dialyzer Post Dial Rating: Not Clear-Most Acid Disinfect: Chemical Cycle Start At: Heat Cycle Start At: Patient Condition: 08-Jan-2024 ASH VILLAGOMEZ a/ox2-3, Discharged via stretcher, Treatment tolerated without complication Nursing Assessment: 08-Jan-2024 ASH VILLAGOMEZ INSURANCE EXAMINING CLERK POST-ASSESSMENT Time of assessment [ MENTAL STATUS: [x ]Alert & Oriented x 3 Comment: [ ]Alert & Oriented x 2 [ ]Person [ ]Place [ ]Time/Date [ ]Situation Comment: [ ]Alert & Oriented x 1 [ ]Person [ ]Place [ ]Time/Date [ ]Situation Comment:[ [ ]Confused Comment:[ [ ]Other Comment:[ RESPIRATORY STATUS: [ x]Clear bilaterally [ ]Clear right [ ]Clear left [...] [ ]Left LE [ ]Right LE Comment:[ tx ended per policy. No pain/distress noted or voiced Comments:[ Acknowledged On: Acknowledged By: == Preparation ==== Station: Chair 01 Machine #: C - 12 MACHINE DISINFECTION Acid Cycle: 08-Jan-2024 Heat Cycle: 21-Dec-2023 Chemical Cycle: 08-Jan-2024 Disinfect Clear Status: MACHINE CHECKS Original All Steps Completed: [ ] YES [x] NO Alarm Test Complete: 08-Jan-2024 Alarms Audible: 08-Jan-2024 Checked prescription: 08-Jan-2024 132 Checked conductivity: 08-Jan-2024 Double checked Patient identified: 08-Jan-2024 prescription: Time Out: 08-Jan-2024 Conductivity: Calcium: Dialysate Temperature: Potassium: Bicarb: Reading confirmation: 08-Jan-2024 Conductivity: pH: Replacement All Steps Completed: [ ] YES [x] NO Alarm Test Complete: 08-Jan-2024 Alarms Audible: 08-Jan-2024 132 Checked prescription: 08-Jan-2024 132 Checked conductivity: 08-Jan-2024 Double checked Patient identified: 08-Jan-2024 prescription: Time Out: 08-Jan-2024 Conductivity: K+: pH: Ca+: Dialysate Temp (C): == Material ======= MATERIAL / DIALYZER REUSE Start Machine (#): C - 12 Time Failed: Replacement Machine: Replaced time: Reason: Dialyzer Label: Nipro Elisio - 19H Reprocessed #: Dialyzer Lot: Pre-dialysis Dialyzer Rating: Check 1: 08-Jan-2024 132 ASH VILLAGOMEZ Check 2: Location: [id number]/ ASH VILLAGOMEZ RN REGISTERED NURSE Signed: 01/08/2024 16:38 ASH VILLAGOMEZ [facility]
--- OUTSIDE RECORDS SUMMARY | 2024-12-05 00:24 | XMS_ITS | Encounter Summary ---
Author Name [facility] [facility] Address [address] [place] [address] Care Team Providers Care Front End Software Developer Name Role Phone ERIKA DEE Primary Care [...] PART A Jul 12, 2019 PART A [id number] [phone] PRASANNA KATZ PATIENT MEDICARE (WNR) MEDICARE (M) PART A Jul 12, 2019 PART A [id number] [phone] PRASANNA KATZ PATIENT Selected Encounter This section includes the information on record at [place] for the Encounter. Date/Time Encounter Type Encounter Description Reason Provider Source Apr 27, 2024 07:30 AM COMPREHENSIVE HEARING TEST AUDIOLOGY ICD-10-CM H90.3 Sensorineural hearing loss, bilateral VEST,JUSTINE A [facility] Encounter Template Text not used by [facility] Assessments - Encounter Diagnoses This section includes the primary and secondary diagnoses documented for the Encounter. Date/Time Primary/Secondary Diagnosis Diagnosis Name Provider Source Apr 27, 2024 07:51 AM PRIMARY Sensorineural hearing loss, bilateral VEST,JUSTINE A [facility] Plan of Treatment: Future Appointments (+ 6 months) and Future Tests (+/- 45 days) The Plan of Treatment section includes future care activities for the patient [facility] [place] [facility] This section includes future appointments and future orders which are active, pending or scheduled. Future Appointments This section includes appointments that were scheduled to occur 6 months from the date of the Encounter, up to a maximum of 20 appointments. The data comes from all [facility]. Appointment Date/Time Appointment Type Appointme nt Facility Name May 02, 2024 08:00 AM AMBULATORY - NONE [facility] May 02, 2024 08:30 AM AMBULATORY - MEDICINE [facility] May 16, 2024 02:00 PM AMBULATORY - MEDICINE [facility] Jul 12, 2024 08:00 AM AMBULATORY - NONE [facility] Jul 12, 2024 08:30 AM AMBULATORY - MEDICINE [facility] Aug 18, 2024 09:15 AM AMBULATORY - MEDICINE [facility] Active, Pending, and Scheduled Orders This section includes a listing of several types of active, pending, and scheduled orders, including clinic medications orders, diagnostic test orders, procedure orders and consult orders; where the start date of the order is 45 days before the date of the Encounter or 45 days after the date of theEncounter. The data comes from all [facility]. Test Date/Time Test Type Test Details Facility Name May 16, 2024 12:00 AM Laboratory - Chemi stry Order HGA1C BLOOD SP [facility] Advance Directives: All historical and current Section Date Range: From patient's date of to the date document was created. This section includes ALL of a patient's completed or amended [place] Advance and Rescinded Directives. The entries below indicate that a directive exists for the patient, but an actual copy is not included with this document. The data comes from all [facility]. Date Advance Directives Provider Source Dec 17, 2022 ADVANCE DIRECTIVE [facility] Feb 09, 2020 ADVANCE DIRECTIVE DISCUSSION LUCIANOMELY Manjinder [facility] Feb 02, 2018 ADVANCE DIRECTIVE ALTAMIRANOBEAU AJAY [facility] Nov 29, 2006 ADVANCE DIRECTIVE OSWALDOPATEL ATLAN [facility] Encounter Notes: All associated encounter notes This section contains the clinical notes associated to the Encounter. Date/Time Encounter Note(s) Provider Source Apr 27, 2024 07:37 AM AUDIOLOGY E & M NO TE: LOCAL TITLE: AUDIO EVALS ST STANDARD TITLE: AUDIOLOGY E & M NOTE DATE OF NOTE: APR 27, 2024@07:37 ENTRY DATE: APR 27, 2024@07:37:50 AUTHOR: JUSTINE BEACH COSIGNER: URGENCY: STATUS: COMPLETED SUBJECT: Audio Purpose of appt: Hearing loss [x] patient initiated visit [] provider initiated visit via consult Case history: Audio re-evaluation. Prev eval in February 2019. Pt returns today stating he feels that his hearing has worsened. He also notices intermittent tinnitus. He claims it can vary from humming to his heart beat. He denied any otosurgeries or recent ear infections. He reports dizziness when he gets up too quickly. Otoscopic inspection revealed clear ear canals. RESULTS: Right Ear- Audiometry (air and/or bone conduction): Normal hearing with the exception of a mild snhl 500-1500 Hz. SRT: 35 WRS: 100% Tympanogram: A Reflexes: ipsi: Present 500-4000 Hz contra: Present 500-4000 Hz Left Ear- Audiometry (air and/or bone conduction): Normal hearing with the exception of a mild snhl 500-3000 Hz. SRT: 35 WRS: 96% Tympanogram: A (hand-held) Reflexes: Could not maintain seal Discussed test results with patient. Small drop in hearing since 2019. Discussed hearing aids. Pt is not interested at this time. REC: Return as needed /edwar/ Miya LAURA Staff Warehouse StockerClyde, Surgery Service Signed: 04/27/2024 08:[address] [facility]
--- OUTSIDE RECORDS SUMMARY | 2024-12-05 00:24 | XMS_ITS | Encounter Summary ---
Author Name [facility] [facility] [place] Address [address] [place] [address] Care Team Providers Care Chronic Manager Name Role Phone ERIKA DEE Primary [...] PART A Jul 12, 2019 PART A [id number] [phone] PRASANNA KATZ PATIENT MEDICARE (WNR) MEDICARE (M) PART A Jul 12, 2019 PART A [id number] [phone] PRASANNA KATZ PATIENT Selected Encounter This section includes the information on record at [place] for the Encounter. Date/Time Encounter Type Encounter Description Reason Pro vider Source Dec 14, 2023 04:31 PM Outpatient Encounter COMMUNITY CARE CONSULT IHE [...] 20 appointments. The data comes from all [facility] facilities. Appointment Date/Time Appointment Type Appointme nt Facility Name Dec 18, 2023 11:00 AM AMBULATORY - SURGERY [facility] Jan 07, 2024 04:48 PM AMBULATORY - MEDICINE [facility] Jan 12, 2024 10:30 AM AMBULATORY - MEDICINE [facility] Jan 21, 2024 12:30 PM AMBULATORY - MEDICINE [facility] Jan 23, 2024 12:30 PM AMBULATORY - MEDICINE [facility] Jan 25, 2024 02:30 PM AMBULATORY - MEDICINE [facility] Jan 26, 2024 12:30 PM AMBULATORY - MEDICINE [facility] Jan 28, 2024 12:30 PM AMBULATORY - MEDICINE [facility] Feb 02, 2024 12:30 PM AMBULATORY - MEDICINE [facility] Feb 04, 2024 12:15 PM AMBULATORY - MEDICINE [facility] Feb 06, 2024 12:30 PM AMBULATORY - MEDICINE [facility] Feb 09, 2024 12:30 PM AMBULATORY - MEDICINE [facility] February 11, 2024 12:30 PM AMBULATORY - MEDICINE [facility] February 13, 2024 12:30 PM AMBULATORY - MEDICINE [facility] February 15, 2024 08:00 AM AMBULATORY - NONE [facility] February 15, 2024 08:30 AM AMBULATORY - MEDICINE [facility] Apr 05, 2024 09:30 AM AMBULATORY - MEDICINE [facility] Apr 27, 2024 07:30 AM AMBULATORY - SURGERY [facility] May 02, 2024 08:00 AM AMBULATORY - NONE [facility] May 02, 2024 08:30 AM AMBULATORY - MEDICINE [facility] Lab Results: +/- 30 days of [...] - Unit Interpretation Reference Range Comment Jan 11, 2024 11:36 AM [facility] GLUCOSE,BLOOD-poct (STL) Specimen Type: BLOOD Comment: Test Performed by: [id number] Meter #: [id number] Ordering Provider: LIDIA HUYNH Report Released Date/Time: Jan 11, 2024 11:50 AM Reporting Lab: [address] [address] Performing Lab: [address] [address] GLUCOSE,BLOOD- poct (STL) 106 mg/dL H 72-Jan 11, 2024 11:07 AM [facility] GLUCOSE,BLOOD-poct (STL) Specimen Type: BLOOD Comment: Test Performed by: [id number] Meter #: [id number] Ordering Provider: ILNOActiveSec Report Released Date/Time: Jan 11, 2024 11:18 AM Reporting Lab: [address] [address] Performing Lab: [address] [address] GLUCOSE,BLOOD- poct (STL) 109 mg/dL H 72-Jan 11, 2024 05:12 AM [facility] GLUCOSE,BLOOD-poct (STL) Specimen Type: BLOOD Comment: Test Performed by: [id number] Meter #: [id number] Ordering Provider: LIDIA HUYNH Report Released Date/Time: Jan 11, 2024 05:25 AM Reporting Lab: [address] [address] Performing Lab: [address] [address] GLUCOSE,BLOOD- poct (STL) 88 mg/dL 72-Jan 10, 2024 08:19 PM [facility] GLUCOSE,BLOOD-poct (STL) Specimen Type: BLOOD Comment: Test Performed by: [id number] Meter #: [id number] Ordering Provider: LIDIA HUYNH Report Released Date/Time: Jan 10, 2024 08:31 PM Reporting Lab: [place] [address] [facility] [address] Performing Lab: [place] [address] [facility] [address] GLUCOSE,BLOOD- poct (STL) 153 mg/dL H 72-Jan 10, 2024 04:15 PM [facility] GLUCOSE,BLOOD-poct (STL) Specimen Type: BLOOD Comment: Test Performed by: [id number] Meter #: [id number] Ordering Provider: LIDIA HUYNH Report Released Date/Time: Jan 10, 2024 05:05 PM Reporting Lab: [place] [address] [facility] [address] Performing Lab: [place] [address] [facility] [address] GLUCOSE,BLOOD- poct (STL) 84 mg/dL -Jan 10, 2024 11:31 AM [facility] GLUCOSE,BLOOD-poct (STL) Specimen Type: BLOOD Comment: Test Performed by: [id number] Meter #: [id number] Ordering Provider: LIDIA HUYNH Report Released Date/Time: Jan 10, 2024 12:03 PM Reporting Lab: [place] [address] [facility] [address] Performing Lab: [place] [address] [facility] [address] GLUCOSE,BLOOD- poct (STL) 99 mg/dL -Jan 10, 2024 04:45 AM [facility] GLUCOSE,BLOOD-poct (STL) Specimen Type: BLOOD Comment: Test Performed by: [id number] Meter #: [id number] Ordering Provider: LIDIA HUYNH Report Released Date/Time: Jan 10, 2024 05:29 AM Reporting Lab: [place] [address] [facility] [address] Performing Lab: [place] [address] [facility] [address] GLUCOSE,BLOOD- poct (STL) 109 mg/dL H 72-Jan 09, 2024 08:08 PM [facility] GLUCOSE,BLOOD-poct (STL) Specimen Type: BLOOD Comment: Test Performed by: [id number] Meter #: [id number] Ordering Provider: LIDIA HUYNH Report Released Date/Time: Jan 09, 2024 08:28 PM Reporting Lab: [address] [address] Performing Lab: [place] [address] [facility] [address] GLUCOSE,BLOOD- poct (STL) 110 mg/dL H -Jan 09, 2024 04:19 PM [facility] GLUCOSE,BLOOD-poct (STL) Specimen Type: BLOOD Comment: Test Performed by: [id number] Meter #: [id number] Ordering Provider: LIDIA HUYNH Report Released Date/Time: Jan 09, 2024 04:34 PM Reporting Lab: [place] [address] [facility] [address] Performing Lab: [place] [address] [facility] [address] GLUCOSE,BLOOD- poct (STL) 119 mg/dL H 72-Jan 09, 2024 02:30 PM [facility] MAGNESIUM Specimen Type: PLASMA Comment: No hemolysis noted. Ordering Provider: TATI ZAVALA Report Released Date/Time: Jan 09, 2024 07:51 AM Reporting Lab: [address] [address] Performing Lab: [address] [address] MAGNESIUM 1.6 mg/dL 1.6-2.6 Jan 09, 2024 02:30 PM [facility] RENAL PANEL Specimen Type: PLASMA Comment: No hemolysis noted. Ordering Provider: TATI ZAVALA Report Released Date/Time: Jan 09, 2024 07:51 AM Reporting Lab: [address] [address] Performing Lab: [address] [address] CREATININE 5.13 mg/dL H 0.7-1.3 UREA NITROGEN 46.2 mg/dL H 9.0-25.0 GLUCOSE 177 mg/dL H 72-99 SODIUM 136 meq/L 136-145 POTASSIUM 4.0 meq/L 3.5-5 CHLORIDE 101 meq/L 98-107 CARBON DIOXIDE 23 meq/L 22-31 CALCIUM 8.6 mg/dL 8.4-10.4 PHOSPHOROUS 2.7 mg/dL 2.3-4.7 ALBUMIN 3.6 g/dL 3.4-5 EGFR (CKD-EPI 2020) 11.5 LL >60 Jan 09, 2024 12:27 PM [facility] GLUCOSE,BLOOD-poct (STL) Specimen Type: BLOOD Comment: Test Performed by: [id number] Meter #: [id number] Ordering Provider: LIDIA HUYNH Report Released Date/Time: Jan 09, 2024 12:38 PM Reporting Lab: [address] [address] Performing Lab: [address] [address] GLUCOSE,BLOOD- poct (STL) 98 mg/dL 72-99 Jan 09, 2024 07:15 AM [facility] GLUCOSE,BLOOD-poct (STL) Specimen Type: BLOOD Comment: Test Performed by: [id number] Meter #: [id number] Ordering Provider: LIDIA HUYNH Report Released Date/Time: Jan 09, 2024 07:58 AM Reporting Lab: [address] [address] Performing Lab: [address] [address] GLUCOSE,BLOOD- poct (STL) 86 mg/dL 72-99 Jan 08, 2024 09:04 PM [facility] GLUCOSE,BLOOD-poct (STL) Specimen Type: BLOOD Comment: Test Performed by: [id number] Meter #: [id number] Ordering Provider: LIDIA HUYNH Report Released Date/Time: Jan 08, 2024 09:47 PM Reporting Lab: [place] [address] [facility] [address] Performing Lab: [address] [address] GLUCOSE,BLOOD- poct (STL) 90 mg/dL 72-99 Jan 08, 2024 09:01 PM [facility] HEP B CORE AB TOTAL. (STL) Specimen Type: SERUM No comment entered. Ordering Provider: EFREN TAYLOR Report Released Date/Time: Jan 08, 2024 02:35 PM Reporting Lab: [place] [address] [place] [phone] Performing Lab: [place] [address] [facility] [address] HEP B CORE AB TOTAL. (STL) Nonreactive Nonreactive Jan 08, 2024 09:01 PM [facility] HEPATITIS B SURFACE AB PNL Specimen Type: SERUM No comment entered. Ordering Provider: EFREN TAYLOR Report Released Date/Time: Jan 08, 2024 02:35 PM Reporting Lab: [place] [address] [facility] [address] Performing Lab: [address] [address] HEP B Surface Ab-HBsAB (STL) REACTIVE m[IU]/mL Nonreactive HEP Bs AB-QUANT (STL) 63.22 m[IU]/mL Jan 08, 2024 09:01 PM [facility] HEP HB S Ag (AUSRIA) (STL) Specimen Type: SERUM No comment entered. Ordering Provider: EFREN TAYLOR Report Released Date/Time: Jan 08, 2024 02:35 PM Reporting Lab: [address] [address] Performing Lab: [address] [address] HEP HB S Ag (AUSRIA) (STL) Nonreactive Nonreactive Jan 08, 2024 04:47 PM [facility] GLUCOSE,BLOOD-poct (STL) Specimen Type: BLOOD Comment: Test Performed by: [id number] Meter #: [id number] Ordering Provider: LIDIA HUYNH Report Released Date/Time: Jan 08, 2024 05:09 PM Reporting Lab: [address] [address] Performing Lab: [address] [address] GLUCOSE,BLOOD- poct (STL) 95 mg/dL 72-99 Jan 08, 2024 11:26 AM [facility] GLUCOSE,BLOOD-poct (STL) Specimen Type: BLOOD Comment: Test Performed by: [id number] Meter #: [id number] Ordering Provider: LIDIA HUYNH Report Released Date/Time: Jan 08, 2024 11:37 AM Reporting Lab: [address] [address] Performing Lab: [address] [address] GLUCOSE,BLOOD- poct (STL) 105 mg/dL H 72-99 Jan 08, 2024 07:01 AM [facility] RENAL PANEL Specimen Type: PLASMA Comment: No hemolysis noted. Ordering Provider: LIZETTE GRIFFIN Report Released Date/Time: Jan 07, 2024 11:24 PM Reporting Lab: [address] [address] Performing Lab: [address] [address] CREATININE 8.50 mg/dL H 0.7-1.3 UREA NITROGEN 88.2 mg/dL H 9.0-25.0 GLUCOSE 70 mg/dL L 72-99 SODIUM 139 meq/L 136-145 POTASSIUM 5.4 meq/L H 3.5-5 CHLORIDE 110 meq/L H 98-107 CARBON DIOXIDE 19 meq/L L 22-31 CALCIUM 9.4 mg/dL 8.4-10.4 PHOSPHOROUS 5.1 mg/dL H 2.3-4.7 ALBUMIN 3.8 g/dL 3.4-5 EGFR (CKD-EPI 2020) 6.3 LL >60 Jan 08, 2024 06:37 AM [facility] GLUCOSE,BLOOD-poct (STL) Specimen Type: BLOOD Comment: Test Performed by: [id number] Meter #: [id number] Ordering Provider: LIDIA HUYNH Report Released Date/Time: Jan 08, 2024 06:48 AM Reporting Lab: [address] [address] Performing Lab: [address] [address] GLUCOSE,BLOOD- poct (STL) 86 mg/dL 72-99 Jan 07, 2024 11:58 PM [facility] RENAL PANEL Specimen Type: PLASMA Comment: No hemolysis noted. Ordering Provider: LIZETTE GRIFFIN Report Released Date/Time: Jan 07, 2024 11:38 PM Reporting Lab: [address] [address] Performing Lab: [address] [address] CREATININE 8.68 mg/dL H 0.7-1.3 UREA NITROGEN 92.6 mg/dL H 9.0-25.0 GLUCOSE 143 mg/dL H 72-99 SODIUM 138 meq/L 136-145 POTASSIUM 5.0 meq/L 3.5-5 CHLORIDE 111 meq/L H 98-107 CARBON DIOXIDE 17 meq/L L 22-31 CALCIUM 8.8 mg/dL 8.4-10.4 PHOSPHOROUS 3.8 mg/dL 2.3-4.7 ALBUMIN 3.8 g/dL 3.4-5 EGFR (CKD-EPI 2020) 6.1 LL >60 Jan 07, 2024 11:36 PM [facility] GLUCOSE,BLOOD-poct (STL) Specimen Type: BLOOD Comment: Test Performed by: [id number] Meter #: [id number] Ordering Provider: LIDIA MOSCOSO Report Released Date/Time: Jan 07, 2024 11:47 PM Reporting Lab: [facility] [address] [address] Performing Lab: [facility] [address] [place] [phone] GLUCOSE,BLOOD- poct (STL) 157 mg/dL H 72-99 Jan 07, 2024 11:30 PM [facility] MRSA SURVL NARES DNA Specimen [...] Jan 07, 2024 11:24 PM Reporting Lab: [facility] [address] [address] Performing Lab: [address] [address] MRSA SURVL NARES DNA Negative Negative Jan 07, 2024 09:08 PM [facility] POTASSIUM Specimen Type: PLASMA Comment: No hemolysis noted. Ordering Provider: ANNA CALI Report Released Date/Time: Jan 07, 2024 08:38 PM Reporting Lab: [facility] [address] [place] [phone] Performing Lab: [address] [address] POTASSIUM 5.7 meq/L H 3.5-5 Jan 07, 2024 07:30 PM [facility] URINALYSIS (STL-PB) Specimen Type: URINE No comment entered. Ordering Provider: ANNA CALI Report Released Date/Time: Jan 07, 2024 05:18 PM Reporting Lab: [facility] [address] [place] [phone] Performing Lab: [address] [address] URINE COLOR Colorless Yellow U.BILIRUBIN Negative mg/dL [...] 1.015 1.005-1.029 Jan 07, 2024 05:30 PM [facility] BRAIN NATRIURETIC PEPTIDE Specimen Type: PLASMA No comment entered. Ordering Provider: GRACIELA MANN Report Released Date/Time: Jan 07, 2024 04:59 PM Reporting Lab: [facility] [address] [place] [phone] Performing Lab: [address] [address] BRAIN NATRIURETIC PEPTIDE 59.0 pg/mL 0-100 Jan 07, 2024 05:30 PM [facility] COVID-19 DIAGNOSTIC (FLU/RSV)(STL) Specimen Type: [...] Jan 07, 2024 04:59 PM Reporting Lab: [address] [address] Performing Lab: [address] [address] INFLUENZA A Negative Negative INFLUENZA B Negative Negative COVID-19 (STL-PB) Not Detected Not Detected RSV (Cepheid) NEGATIVE Negative Jan 07, 2024 05:30 PM [facility] COMPREHENSIVE METABOLIC PANEL Specimen Type: PLASMA Comment: Aspartate Transaminase result may show positive bias due to hemolysis. K result canceled due to hemolysis. Specimen moderately hemolyzed. K cancelled due to moderate hemolysis. Called to : Phillip Cee RN at: [id number] on: 01/07/2024 by: TENNILLE Ordering Provider: GRACIELA MANN Report Released Date/Time: Jan 07, 2024 04:59 PM Reporting Lab: [place] [address] Performing Lab: [place] [address] CREATININE 8.88 mg/dL H 0.7-1.3 UREA NITROGEN [...] LL >60 Jan 07, 2024 05:30 PM [facility] CBC Specimen Type: BLOOD No comment entered. Ordering Provider: GRACIELA MANN Report Released Date/Time: Jan 07, 2024 04:59 PM Reporting Lab: [facility] [address] [facility] [address] Performing Lab: [address] [address] WBC 9.2 10*3/uL 3.6-11.2 RBC 3.81 10*6/uL [...] 10*3/uL 0.00-0.20 Dec 11, 2023 12:02 PM [facility] RENAL PANEL Specimen Type: PLASMA Comment: No hemolysis noted. Ordering Provider: KYLER PURCELL Report Released Date/Time: Dec 10, 2023 03:57 PM Reporting Lab: [address] [address] Performing Lab: [address] [address] CREATININE 8.13 mg/dL H 0.7-1.3 UREA NITROGEN 69.9 mg/dL H 9.0-25.0 GLUCOSE 163 mg/dL H 72-99 SODIUM 140 meq/L 136-145 POTASSIUM 5.4 meq/L H 3.5-5 CHLORIDE 106 meq/L 98-107 CARBON DIOXIDE 22 meq/L 22-31 CALCIUM 8.6 mg/dL 8.4-10.4 PHOSPHOROUS 3.7 mg/dL 2.3-4.7 ALBUMIN 3.9 g/dL 3.4-5 EGFR (CKD-EPI 2020) 6.6 LL >60 Dec 11, 2023 12:02 PM [facility] PTH, INTACT (STL) Specimen Type: SERUM No comment entered. Ordering Provider: KYLER PURCELL Report Released Date/Time: Dec 10, 2023 03:57 PM Reporting Lab: [address] [address] Performing Lab: [address] [address] PTH, INTACT (STL) 527.70 pg/mL H 8.7-77.7 Dec 11, 2023 12:02 PM [facility] CBC Specimen Type: BLOOD No comment entered. Ordering Provider: KYLER PURCELL Report Released Date/Time: Dec 10, 2023 03:57 PM Reporting Lab: [place] [address] [facility] [address] Performing Lab: [address] [address] WBC 8.4 10*3/uL 3.6-11.2 RBC 3.84 10*6/uL [...] 10*3/uL 0.00-0.20 Dec 11, 2023 12:02 PM [facility] MAGNESIUM Specimen Type: PLASMA No comment entered. Ordering Provider: KYLER PURCELL Report Released Date/Time: Dec 11, 2023 10:17 AM Reporting Lab: [facility] [address] [facility] [address] Performing Lab: [facility] [address] [place] [phone] MAGNESIUM 1.3 mg/dL L 1.6-2.6 Nov 16, 2023 04:49 PM [facility] LIPID PANEL (STL) Specimen Type: PLASMA No comment entered. Ordering Provider: BLU MARTE Report Released Date/Time: Nov 16, 2023 01:09 PM Reporting Lab: [facility] [address] [facility] [address] Performing Lab: [facility] [address] [facility] [address] CHOLESTEROL 135 mg/dL 0-200 TRIGLYCERIDE 191 mg/dL H 0-150 CALCULATED LDL 73 mg/dL HDL(New) 24 mg/dL L >40 Nov 16, 2023 04:49 PM [facility] HGA1C Specimen Type: BLOOD No comment entered. Ordering Provider: BLU MARTE Report Released Date/Time: Nov 16, 2023 01:09 PM Reporting Lab: [facility] [address] [facility] [address] Performing Lab: [facility] [address] [place] [phone] HGA1C 6.0 4.0-6.0 Social History: Smoking Status (Most current) and Tobacco Use (All prior to encounter date) This section includes the most current, and the historical, smoking and tobacco- related health factors from the [facility] facility where the Encounter took place. Current Smoking Status This section includes the most current smoking, or tobacco-related health factor, from the [facility] facility where the Encounter took place. Date/Time Current Smoking Status Comment Ester ity Jun 21, 2023 01:14 PM [facility]YX ADMIT TOBACCO SCREEN NO [facility] Tobacco Use History This section includes a history of the smoking, or tobacco-related health factors, that were collected on or before the date of the Encounter. The data comes from the [facility] facility where the Encounter took place. Date/Time Smoking Status/Tobacco Use Comment F acility Dec 12, 2022 04:00 PM ORYX ADMIT TOBACCO SCREEN NO [facility] Jun 25, 2022 03:24 PM VA-TOBACCO FORMER USER [facility] Jun 25, 2022 03:24 PM VA-TOBACCO QUIT 15 YRS OR MORE [facility] Dec 23, 2021 04:59 PM [facility]YX ADMIT TOBACCO SCREEN REFUSED [facility] May 24, 2020 11:27 PM ORYX ADMIT TOBACCO SCREEN NO [facility] Dec 12, 2019 10:24 AM VA-TOBACCO FORMER USER [facility] Dec 12, 2019 10:24 AM VA-TOBACCO QUIT 15 YRS OR MORE [facility] Aug 03, 2019 02:11 AM [facility]YX ADMIT TOBACCO SCREEN REFUSED [facility] Oct 12, 2018 01:14 AM QUIT TOBACCO >7 YEARS AGO [facility] Oct 11, 2018 03:33 PM ORYX ADMIT TOBACCO SCREEN NO [facility] Sep 07, 2018 09:13 PM ORYX ADMIT TOBACCO SCREEN NO [facility] Sep 07, 2018 07:52 PM QUIT TOBACCO >7 YEARS AGO [facility] Advance Directives: All historical and current Section Date Range: From patient's date of to the date document was created. This section includes ALL of a patient's completed or amended [facility] Advance and Rescinded Directives. The entries below indicate that a directive exists for the patient, but an actual copy is not included with this document. The data comes from all [facility] facilities. Date Advance Directives Provider Source Dec 17, 2022 ADVANCE DIRECTIVE BIJAN MERRITT [facility] Feb 09, 2020 ADVANCE DIRECTIVE DISCUSSION MUSTAPHAMELY TELLEZManjinder [facility] Feb 02, 2018 ADVANCE DIRECTIVE BEAU ALTAMIRANO [facility] Nov 29, 2006 ADVANCE DIRECTIVE CHACONMARELY [facility] Radiology Reports: +/- 30 days of [...] the Encounter. The data comes from all [facility] treatment facilities. Date/Time Radiology Report Provider Source Jan 07, 2024 08:01 PM CHEST PORTABLE: NAGI KATZ [id number] -[id number] M Exm Date: JAN 07, 2024@20:01 Req Phys: ANNA CALI Loc: -EMERGENCY DEPT 3RD SHIFT (R Img Loc: -MAIN RADIOLOGY SUITE Service: Unknown (Case [id number] COMPLETE) CHEST PORTABLE (RAD Detailed) CPT:65909 Proc Modifiers : Portable Reason for Study: weakness, ESRD Clinical History: Report Status: Verified Date Reported: JAN 07, 2024 Date Verified: JAN 07, 2024 [employer] Regenerator Operator E-Sig: Report: CHEST PORTABLE HISTORY: weakness, ESRD COMPARISON: July 26, 2023 TECHNIQUE: One view of the chest was performed at the local [facility] facility. images were received by the [facility] National [facility] (NTP) for interpretation. FINDINGS: Bilateral peribronchial thickening. Patchy bilateral lower lobe lung opacities. Mildly tortuous aorta. No acute bony abnormalities. Impression: 1. Bilateral peribronchial thickening. 2. Patchy bilateral lung opacities likely represent atelectasis. 3. No pneumothorax. READING PHYSICIAN: Madhu Patton M.D. -[id number] 01/07/2024 19:10 [facility] National Teleradiology Program [phone] (For Medical Practitioner Use Only) Attention Patients / Veterans: If you have questions or concerns about these test results, please contact your ordering provider or primary care team. Primary Interpreting Staff: RADIOLOGY,OUTSIDE SERVICE, Staff Physician / RADIOLOGY,OUTSIDE SERVICE [facility] Encounter Notes: All associated encounter notes This section contains the clinical notes associated to the Encounter. Date/Time Encounter Note(s) Provider Source Dec 14, 2023 04:31 PM NONVA NOTE: LOCAL TITLE: COMMUNITY CARE-REQUEST FOR SERVICE NOTE [facility] STANDARD TITLE: NONVA NOTE DATE OF NOTE: DEC 14, 2023@16:31 ENTRY DATE: DEC 14, 2023@16:31:27 AUTHOR: MIHAI ARNOLD EXP COSIGNER: URGENCY: STATUS: COMPLETED Request for Services (RFS) documentation [facility] Consult: [facility]-Transplant Consult No: [id number] Date sent to scanning: Dec A Request for Service (RFS) form [id number] has been received which includes the following: Care Requested: [facility] wait listed on 12/10/23. New [facility] Transplant consult needed for wait listing and transplant surgery. Copy of clinical notes/RFS sent to [facility] for review and consideration for new consult. ICD-10 Dx code: N18.6 Date [facility] received request: Dec Date service required: Dec Requesting [facility] Provider Information: Name of Ordering Provider: [facility] Transplant Team Office:[facility] Address, City, State: POC: [place] Nat /edwar/ MIHAI MCFARLANE RN REGISTERED NURSE Signed: 12/14/2023 16:35 Receipt Acknowledged By: 12/17/2023 10:37 /es/ Saige Zafar, PARossyC PHYSICIAN COUNTER CLERK [employer] - NEPHROLOGY MIHAI ARNOLD [facility]
--- OUTSIDE RECORDS SUMMARY | 2024-12-05 00:24 | XMS_ITS | Continuity of Care Document ---
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 [address] [place] [address], [id number], [place]. tel: [phone] Office E&m Estab Low-mod [facility], [address] [place], [place], [id number] , tel: [phone] [place] 2 Office Erectile dysfunction (chief complaint) Erectile dysfunction due to arterial insufficiency Jase Yu. [address] [place], [address], [place]. tel: [phone] Referring Provider: Sincere Oh, [facility] [address], [place], [address]. tel:[phone] Office E&m Estab Mod-hi 2 [facility], [address] [place] [address], [id number] , [place] tel: [phone] [place] 2 Office Erectile dysfunction (chief complaint) Erectile dysfunction due to arterial insufficiencyDie tary counseling and surveillanceEsse ntial (primary) hypertension Ilan-0 7 Jase Yu. [address] [place] [address], [id number], [place]. tel: [phone] Referring Provider: Sincere Oh, [address] [place] [address] Suite [facility], [place], [address]. tel:[phone] Office E&m Estab Mod-hi 2 [facility], [address] [place] [address], [id number] , [place] tel: [phone] [place] 2 Office Erectile dysfunction (chief complaint) Erectile dysfunction due to arterial insufficiency Jun-2 Jase Yu. [address] [place] [address], [id number], [place]. tel: [phone] Referring Provider: Sincere Oh, [address] [place] [address] [address], [place], [address]. tel:[phone] [facility], [address] [place] [address], [id number] , tel: [phone] [place] 2 Office Erectile dysfunction (chief complaint) Erectile dysfunction due to arterial insufficiency Mar-2 6 Jase Yu. [address] [place] [address], [address], [place]. tel: [phone] Referring Provider: Sincere Oh, [address] [place], [place] [address] [address], [place], [address]. tel:[phone] [facility], [address] [place] [address], [id number] , [place] tel: [phone] [place] 2 Office Erectile dysfunction (chief complaint) Erectile dysfunction due to arterial insufficiency Mar-0 6 Jase Yu. [address] [place] [address], [address], [place]. tel: [phone] Referring Provider: Sincere Oh, [address] [facility] [address], [place], [address]. tel:[phone] [facility], [address] [place] [address], [id number] , [place] tel: [phone] [place] [address] Office Erectile dysfunction (chief complaint) Other male erectile dysfunction 4 6 Jase Yu. [address] [place] [address], [address], [place]. tel: [phone] Referring Provider: Sincere Oh, [address] [facility] [address], [place], [address]. [phone] [facility], [address] [place] [address], [id number] , [place] tel: [phone] [place] [address] Office Erectile dysfunction (chief complaint) Other male erectile dysfunction 7 6 Jase Yu. [address] [place] [address], [address], [place]. tel: [phone] Referring Provider: Gigi Younger, [address] [place] [address], [address]. tel:[phone] [facility], [address] [place] [address], [id number] , [place] tel: [phone] [facility]. No Information 6 6 Jase Yu. [address] [place] [address], [id number], [place]. tel: [phone] Referring Provider: Sincere Oh, [address] [facility] [address], [place], [address]. tel:[phone] Office E&m Estab Mod-hi 2 [facility], [address] [place] [address], [id number] , [place] tel: [phone] [place] [address] Office Erectile dysfunction (chief complaint) Erectile dysfunction due to arterial insufficiency Jan-2 2-201 6 Jase Yu. [address] [place] [address], [address], [place]. tel: [phone] Referring Provider: Sincere Oh, [facility] Suite [facility], [place], [address]. tel:[phone] [facility], [address] [place] [address], [id number] , tel: [phone] [facility] No Information 5 Jase uY. [address] [place] [address], [address], . tel: [phone] [facility], [address] [place] [address], [id number] , tel: [phone] [facility] Other male erectile dysfunctionOth diabetes mellitus with oth diabetic kidney complication 5 Jase Yu. [address] [place] [address], [address], . tel: [phone] Offic Cons New/estab Mod-hi 60 [facility], [address] [place] [address], [id number] , tel: [phone] [facility] Erectile dysfunction (chief complaint)Fr equent urination (chief complaint) Urinary FrequencyErectil e Dysfunction 5 Jase Yu. [address] [place] [address], [address], . tel: [phone] Referring Provider: Sincere Oh, [facility] Suite [facility], [place], [address]. 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
--- OUTSIDE RECORDS SUMMARY | 2024-12-05 00:24 | XMS_ITS | Encounter Summary ---
Author Name [facility] [place] [facility] [place] Address [address] [place] [address] Care Team Providers [facility] [employer] Name Role Phone ERIKA DEE Primary Care [...] PART A Jul 12, 2019 PART A [id number] PRASANNA KATZ PATIENT MEDICARE (WNR) MEDICARE (M) PART A Jul 12, 2019 PART A [id number] [phone] PRASANNA KATZ PATIENT Selected Encounter This section includes the information on record at [place] for the Encounter. Date/Time Encounter Type Encounter Description Reason Provider Source Dec 02, 2024 10:15 AM EMERGENCY DEPT VISIT [facility] EMERGENCY DEPT ICD-10-CM J09.X1 Influenza due to ident novel influenza A virus w pneumonia NIEVES MUHAMMAD MD E Encounter Template Text not used by [place] Assessments - Encounter Diagnoses This section includes the primary and secondary diagnoses documented for the Encounter. Date/Time Primary/Secondary Diagnosis Diagnosis Name Provider Source Dec 02, 2024 12:31 PM PRIMARY Influenza due to ident novel influenza A virus w pneumonia NIEVES MUHAMMAD MD [facility] Plan of Treatment: Future Appointments (+ 6 months) and Future Tests (+/- 45 days) The Plan of Treatment section includes future care activities for the patient [facility] [place] [facility] This section includes future appointments and future orders which are active, pending or scheduled. Future Appointments This section includes appointments that were scheduled to occur 6 months from the date of the Encounter, up to a maximum of 20 appointments. The data comes from all [facility]. Appointment Date/Time Appointment Type Appointme nt Facility Name Dec 12, 2024 12:45 PM AMBULATORY - MEDICINE [facility] Dec 12, 2024 03:00 PM AMBULATORY - SURGERY [facility] Mar 20, 2025 10:30 AM AMBULATORY - MEDICINE [facility] Active, Pending, and Scheduled Orders This section includes a listing of several types of active, pending, and scheduled orders, including clinic medications orders, diagnostic test orders, procedure orders and consult orders; where the start date of the order is 45 days before the date of the Encounter or 45 days after the date of theEncounter. The data comes from all [facility]. Test Date/Time Test Type Test Details Facility Name Nov 16, 2024 12:16 PM Consult Order RENAL DUMAS SPLANT EVAL OUTPATIENT [facility] Executive Manager's Choice [facility] Lab Results: +/- 30 days of the encounter This section includes the Chemistry and Hematology Lab Results on record with [place] for the patient. Radiology Reports and Pathology Reports are provided separately, in subsequent sections. Lab Results This section contains the Chemistry/Hematology Results that were resulted 30 days before or 30 daysafter the date of the Encounter. Date/Time Source Result Type Result - Unit Interpretation Reference Range Comment Dec 02, 2024 11:50 AM [facility] URINALYSIS W/ CX REFLEX (STL-PB) Specimen Type: URINE No comment entered. Ordering Provider: NIEVES MUHAMMAD MD Report Released Date/Time: Dec 02, 2024 10:33 AM Reporting Lab: [place] [address] [facility] [address] Performing Lab: [place] [address] [facility] [place] [phone] URINE COLOR Colorless Yellow U.BILIRUBIN Negative mg/dL [...] GRAVITY 1.010 Dec 02, 2024 10:30 AM [facility] LIPASE Specimen Type: PLASMA Comment: No hemolysis noted. Ordering Provider: NIEVES MUHAMMAD MD Report Released Date/Time: Dec 02, 2024 10:33 AM Reporting Lab: [place] [address] [place] [address] Performing Lab: [place] [address] [facility] [place] [address] LIPASE 198 U/L H 8-78 Dec 02, 2024 10:30 AM [facility] APTT Specimen Type: PLASMA No comment entered. Ordering Provider: NIEVES MUHAMMAD MD Report Released Date/Time: Dec 02, 2024 10:33 AM Reporting Lab: [place] [address] [place] [address] Performing Lab: [address] [address] APTT 37.8 s 26.7-39.9 Dec 02, 2024 10:30 AM [facility] PT/INR NEW (STL-MA) Specimen Type: PLASMA No comment entered. Ordering Provider: NIEVES MUHAMMAD MD Report Released Date/Time: Dec 02, 2024 10:33 AM Reporting Lab: [facility] [address] [place] [phone] Performing Lab: [facility] [address] [place] [phone] PROTIME 14.4 s H 9.4-12.5 INR VALUE 1.3 {INR} Dec 02, 2024 10:30 AM [facility] COVID-19 DIAGNOSTIC (FLU/RSV)(STL) Specimen Type: NASOPHARYNX Comment: INFLUENZA A CALLED TO JORGE HANKINS RN [phone] Ordering Provider: NIEVES MUHAMMAD MD Report Released Date/Time: Dec 02, 2024 10:33 AM Reporting Lab: [facility] [address] [place] [phone] Performing Lab: [address] [address] INFLUENZA A POSITIVE INFLUENZA B NEGATIVE COVID-19 (Cepheid) NEGATIVE Negative COVID-19 (STL-PB) Not Detected Not Detected RSV (Cepheid) NEGATIVE Negative Dec 02, 2024 10:30 AM [facility] TROPONIN I Specimen Type: PLASMA No comment entered. Ordering Provider: NIEVES MUHAMMAD MD Report Released Date/Time: Dec 02, 2024 10:54 AM Reporting Lab: [address] [address] Performing Lab: [facility] [address] [place] [address] TROPONIN I 0.058 ng/mL H 0-0.033 Dec 02, 2024 10:30 AM [facility] LIPASE Specimen Type: PLASMA No comment entered. Ordering Provider: NIEVES MUHAMMAD MD Report Released Date/Time: Dec 02, 2024 10:59 AM Reporting Lab: [facility] [address] [place] [phone] Performing Lab: [address] [address] LIPASE 201 U/L H 8-78 Dec 02, 2024 10:30 AM [facility] COMPREHENSIVE METABOLIC PANEL Specimen Type: PLASMA Comment: No hemolysis noted. Ordering Provider: NIEVES MUHAMMAD MD Report Released Date/Time: Dec 02, 2024 10:33 AM Reporting Lab: [address] [address] Performing Lab: [address] [address] CREATININE 9.62 mg/dL H 0.7-1.3 UREA NITROGEN [...] LL >60 Dec 02, 2024 10:30 AM [facility] CBC Specimen Type: BLOOD No comment entered. Ordering Provider: NIEVES MUHAMMAD MD Report Released Date/Time: Dec 02, 2024 10:33 AM Reporting Lab: [address] [address] Performing Lab: [address] [address] WBC 4.6 10*3/uL 3.6-11.2 RBC 3.71 10*6/uL [...] 10*3/uL 0.00-0.20 Dec 02, 2024 10:30 AM [facility] RESPIRATORY PCR PANEL Specimen Type: NASOPHARYNX Comment: [id number] Alert sent : Flu A typing only. The scenios RP Panel combines nested multiplex PCR and [...] available to the clinician evaluating the patient. [employer]IELLE[employer]ider Jesusita, (115) Ordering Provider: DEISY PURCELL Report Released Date/Time: Dec 02, 2024 11:50 AM Reporting Lab: [facility] [address] [facility] [place] [address] Performing Lab: [facility] [address] [facility] [place] [address] *Adenovirus (BF) Not Detected Not Detected *Coronavirus [...] 2024 12:00 PM 68 158/75 12 99 [facility] Dec 02, 2024 11:00 AM 65 156/78 16 99 [facility] Dec 02, 2024 10:30 AM 98.1 63 157/78 18 8 [facility] Social History: Smoking Status (Most current) and Tobacco Use (All prior to encounter date) This section includes the most current, and the historical, smoking and tobacco- related health factors from the [place] facility where the Encounter took place. Current Smoking Status This section includes the most current smoking, or tobacco-related health factor, from the [place] facility where the Encounter took place. Date/Time Current Smoking Status Comment Ester shearer Nov 24, 2024 10:31 AM VA-TOBACCO USE FOR ADELA CIGARETTES [facility] Tobacco Use History This section includes a history of the smoking, or tobacco-related health factors, that were collected on or before the date of the Encounter. The data comes from the [place] facility where the Encounter took place. Date/Time Smoking Status/Tobacco Use Comment F breana Nov 24, 2024 10:31 AM VA-TOBACCO USE FOR ADELA CIGARETTES [facility] Jun 21, 2023 01:14 PM ORYX ADMIT TOBACCO SCREEN NO [facility] Dec 12, 2022 04:00 PM ORYX ADMIT TOBACCO SCREEN NO [facility] Jun 25, 2022 03:24 PM VA-TOBACCO FORMER USER [facility] Jun 25, 2022 03:24 PM VA-TOBACCO QUIT 15 YRS OR MORE [facility] Dec 23, 2021 04:59 PM ORYX ADMIT TOBACCO SCREEN REFUSED [facility] May 24, 2020 11:27 PM ORYX ADMIT TOBACCO SCREEN NO [facility] Dec 12, 2019 10:24 AM VA-TOBACCO FORMER USER [facility] Dec 12, 2019 10:24 AM VA-TOBACCO QUIT 15 YRS OR MORE [facility] Aug 03, 2019 02:11 AM ORYX ADMIT TOBACCO SCREEN REFUSED [facility] Oct 12, 2018 01:14 AM QUIT TOBACCO >7 YEARS AGO [facility] Oct 11, 2018 03:33 PM ORYX ADMIT TOBACCO SCREEN NO [facility] Sep 07, 2018 09:13 PM ORYX ADMIT TOBACCO SCREEN NO [facility] Sep 07, 2018 07:52 PM QUIT TOBACCO >7 YEARS AGO [facility] Advance Directives: All historical and current Section Date Range: From patient's date of to the date document was created. This section includes ALL of a patient's completed or amended [place] Advance and Rescinded Directives. The entries below indicate that a directive exists for the patient, but an actual copy is not included with this document. The data comes from all [place] facilities. Date Advance Directives Provider Source Dec 17, 2022 ADVANCE DIRECTIVE BIJAN MERRITT [facility] Feb 09, 2020 ADVANCE DIRECTIVE DISCUSSION MELY LUCIANO [facility] Feb 02, 2018 ADVANCE DIRECTIVE BEAU ALTAMIRANO [facility] Nov 29, 2006 ADVANCE DIRECTIVE MARELY CHACON [facility] Radiology Reports: +/- 30 days of the [...] the Encounter. The data comes from all [place] treatment facilities. Date/Time Radiology Report Provider Source Dec 02, 2024 12:00 PM CHEST PORTABLE: NAGI KATZ [id number] -[id number] M Exm Date: DEC 02, 2024@12:00 Req Phys: NIEVES MUHAMMAD MD Pat Loc: [facility]-EMERGENCY DEPT 2ND SHIFT (R Img Loc: [facility]-MAIN RADIOLOGY SUITE Service: Unknown [address] [address] (Case [id number] COMPLETE) CHEST PORTABLE (RAD Detailed) CPT:69546 Proc Modifiers : Portable Reason for Study: cough Clinical History: Report Status: Verified Date Reported: DEC 02, 2024 Date Verified: DEC 02, 2024 Airplane Pilot E-Sig:/ES/ED ORDONEZ Report: EXAM: CHEST PORTABLE COMPARISON: 01/07/2024. HISTORY: cough FINDINGS: The heart size and pulmonary vasculature are normal. There is no consolidating infiltrate, effusion or pneumothorax. Impression: No active lung disease. RR Primary Interpreting Staff: ED ORDONEZ, Staff Physician (Airplane Pilot) /ED GREWAL [facility] Nov 15, 2024 07:[address] ABD PEL W/O CON T & 3D: NAGI KATZ [id number] -1955 M Exm Date: NOV 15, 2024@07:20 Req Phys: KIMBERLY PURCELL Pat Loc: [facility]-RENAL NP2 (Req'g Loc) Img Loc: -CT IMAGING [facility] Service: Unknown [address] [address] (Case [id number] COMPLETE) CT ABDOMEN AND PELVIS W/O CONTRAS(CT Detailed) CPT:04028 Reason for Study: to r/o abdominal wall hernia Clinical History: Responsible Attending: Dr. Ye Attending Contact Number: [phone] Resident Contact Number: To rule out abdominal wall hernia Allergies listed in CPRS chart: MORPHINE Creatinine:CREATININE 7.69 H mg/dL 02/09/2024 12:40 /eGFR: STL EGFR (within one year). CREATININE 7.69 mg/dL H (02/09/24 12:40) Wt: 226.8 lb [102.87 kg] (05/16/2024 14:10) History of: Renal failure, chronic or acute renal disease: YES Report Status: Verified Date Reported: NOV 15, 2024 Date Verified: NOV 15, 2024 Airplane Pilot E-Sig:/ES/JOSE BARRERA MD Report: Spiral axial imaging [...] Primary Interpreting Staff: JOSE BARRERA MD, Radiologist (Airplane Pilot) /JOSE YANG [facility] Encounter Notes: All associated encounter notes This section contains the clinical notes associated to the Encounter. Date/Time Encounter Note(s) Provider Source Dec 02, 2024 11:09 AM NURSING NOTE: LOCAL TITLE: [facility] NSG IV INSERTION AND MAINTENANCE STANDARD TITLE: NURSING NOTE DATE OF NOTE: DEC 02, 2024@11:09 ENTRY DATE: DEC 02, 2024@11:10:02 AUTHOR: LUZ ELENA METZ COSIGNER: URGENCY: STATUS: COMPLETED Version 2.2 Charting in accordance with VA APPROVED [place] STANDARD (DEAES) ACUTE INPATIENT/REHABILITATION NURSING ADMISSION SCREENING, ASSESSMENT, AND STANDARDS OF CARE ====== IV Line Insertion and Maintenance ====== ====== Peripheral IV ====== Line #1: Insertion: Date: 12/02/2024 Inserted by (name): transition coach Gauge: 20g Location: [facility] Line # 1: Assessment: Dressing Condition: --Clean, dry, intact --Transparent dressing Site Condition: --No redness, swelling, pain. Line Status: -- + Blood return. -- IV flushed. -- IV saline locked. /edwar/ LUZ ELENA METZ RN REGISTERED NURSE Signed: 12/02/2024 11:10 LUZ ELENA METZ [facility] Dec 02, 2024 10:51 AM PHYSICIAN EMERGENCY DEPT NOTE: LOCAL TITLE: EMERGENCY DEPARTMENT STL STANDARD TITLE: PHYSICIAN EMERGENCY DEPT NOTE DATE OF NOTE: DEC 02, 2024@10:51 ENTRY DATE: DEC 02, 2024@10:51:24 AUTHOR: NIEVES MUHAMMAD MD EXP COSIGNER: URGENCY: STATUS: COMPLETED EMERGENCY DEPARTMENT STL Has ADDENDA TRIAGE CHIEF COMPLAINT: fatigue HPI: Patient is a 69 yo M w/ h/o ESRD on TuThSa HD, HTN, HLD, DM, afib here w/ fatigue. Notes ~2 weeks of cough, rhinorrhea, fatigue. States over last 2-3 days has also developed increased urinary frequency, dark urine, burning with urination and sense of incomplete voiding. Denies f/c, cp, sob, abdominal pain, Some nausea and b/l flank pain. No diarrhea. REVIEW OF SYSTEMS: See HPI for further [...] (including Supplies): Active Outpatient Medications Status 1) CARVEDILOL 25MG TAB TAKE ONE TABLET BY MOUTH TWICE A DAY ACTIVE TAKE WITH FOOD. Indication: FOR HIGH BLOOD PRESSURE 2) GABAPENTIN 300MG CAP TAKE ONE CAPSULE BY MOUTH THREE TIMES ACTIVE PER WEEK TAKE AFTER DIALYSIS ON DIALYSIS DAYS Indication: FOR NERVE PAIN 3) LIDOCAINE 2.5/PRILOCAINE 2.5% CREAM APPLY SPARINGLY TO ACTIVE AFFECTED AREA(S) THREE TIMES PER WEEK APPLY TO FISTULA SITE AT LEAST 30 MINUTES BEFORE DIALYSIS TREAMENT AND COVER WITH SARAN WRAP Indication: FOR LOCAL ANESTHESTIC FOR AVF CANNULATIO 4) OLOPATADINE HCL 0.2% OPH SOLN INSTILL 1 DROP IN BOTH EYES ACTIVE ONCE A DAY Indication: FOR OCULAR ALLERGIES, ITCHING 5) PEG 400 0.4%/PROP GLYCOL 0.3% OPH SOLN INSTILL 1 DROP IN ACTIVE BOTH EYES FOUR TIMES A DAY NEEDED Indication: FOR DRY EYE(S) 6) RENAL MULTIVIT W/1MG OR LESS FA TAB TAKE 1 TABLET BY MOUTH ACTIVE ONCE A DAY Indication: FOR NUTRITION/DIETARY SUPPLEMENTATION 7) SEMAGLUTIDE 1MG/0.75ML INJ PEN 3ML INJECT 1MG UNDER THE SKIN ACTIVE EVERY WEEK Indication: FOR DIABETES 8) TAMSULOSIN HCL 0.4MG CAP TAKE ONE CAPSULE BY MOUTH TWICE A ACTIVE DAY APPROXIMATELY 30 MINUTES AFTER THE SAME MEAL EACH DAY Indication: FOR BENIGN PROSTATIC HYPERPLASIA Active Non-VA Medications Status 1) Non-VA CARVEDILOL 25MG TAB 25MG BY MOUTH TWICE A DAY ACTIVE Indication: FOR HIGH BLOOD PRESSURE 9 Total Medications No medications found.. I have reviewed the patient's medication list with the patient and/or his/her care-perforator loader. Any medication discrepancies have been resolved. Patient will be provided with an updated list of his/her medication(s). SURGICAL HISTORY: not pertinent FAMILY HISTORY: not pertinent SOCIAL HISTORY: Social History Main Topics: Smoking status: denies Alcohol Use: denies Negative mg/dL (06/21/23 19:45) Illicit Drug Use: denies ALLERGIES: Review of patient's allergies indicates: MORPHINE PHYSICAL EXAM: VITAL SIGNS: 157/78 (12/02/2024 10:30)63 (12/02/2024 10:30)97% (05/16/2024 14:10)98.1 F [36.7 C] (12/02/2024 10:30)18 (12/02/2024 10:30)The OBJECT WEIGHT LAST 3 was NOT found...Contact IRM. MAThe OBJECT was NOT found...Contact IRM.PAIN ASSESSMENTThe OBJECT was NOT found...Contact IRM. Measurement DT PAIN 12/02/2024 10:30 8 CONSTITUTIONAL: No acute distress, non-toxic appearance HENT: OP clear EYES: Sclerae clear, EOMI, PERRL NECK: Normal range of motion, supple, no stridor. CARDIOVASCULAR: Normal rate, regular rhythm. PULMONARY/CHEST: Normal work of breathing, no respiratory distress. ABDOMEN: Soft, flat, No tenderness, no mass. BACK: No midline C/T/L tenderness, No CVA tenderness EXTREMITIES: Normal range of motion, distal pulses symmetric/intact, No edema LYMPHATIC: No appreciable LAD NEUROLOGIC: Speech fluent, alert & oriented x 3, normal motor function, normal gait, no ataxia SKIN: Warm, dry, no rash LABS: CBC unremarakble, CMP c/w ESRD bicarb 21, K 4.8, Na 134. FLu A+. RADIOLOGY: -Post void residual = 30 cc ECG IMPRESSION: NSR, LAD, LADB, otherwise unremarkable ECG ED COURSE & MEDICAL DECISION MAKIN yo M w/ h/o ESRD on TuThSa HD, HTN, HLD, DM, afib here w/ fatigue, cough, dysuria. Here, HDS, well appearing, labs largely unremarkable aside form flu A+. Post-void - 30cc. Patient's UA pending but patient and family requesting discharge due to having to be at work-up. Will follow-up UA with patient later. DIscussed return precuations. Despite duration of symptoms will rx tamiflu given high risk for severe flu. D/c home. Nursing notes, medications, vital signs, allergies and pertinent labs & imaging studies reviewed (see chart for details) with lab results reviewed with patient/family and radiology results reviewed with patient/family. DINING MANAGER SERVICE/TIME: na MEDICATIONS GIVEN IN ED: [ x ] YES [ ] NO DIFFERENTIAL DIAGNOSES CONSIDERED: Per MDM DECISION to ADMIT / DISCHARGE TIME: 1100 DISPOSITION CONDITION:[ x ] Improved [ ] Unchanged [ ] Deteriorated CLINICAL IMPRESSION: 1 - Influenza 2 - Urinary symptoms 3 - DISCHARGE INSTRUCTIONS AND PATIENT-DIRECTED FOLLOW-UP RECOMMENDATIONS: -Will call you if evidence of infection on urine studies DIET: regular ACTIVITY: ad pan NEW MEDS: -Tamiflu - take one dose following your dialysis sessions tomorrow and on Thursday. -Acetaminophen MEDICATION RECONCILIATION: CONTINUE ALL PRESCRIBED MEDICATIONS DIRECTED EXCEPT: FOLLOW-UP WITH PRIMARY BOUNTY HUNTER/SPECIALIST: routine in 1-2 weeks if not improving, sooner if worse RETURN TO EMERGENCY: if any worries or concerns worsening shortness of breath, fever, chills, vomiting ADDITIONAL SIGNATURE PCP: [ x ] YES [ ] NO [ ] not listed Active Outpatient Medications (including Supplies): Active Outpatient Medications Status 1) CARVEDILOL 25MG TAB TAKE ONE TABLET BY MOUTH TWICE A DAY ACTIVE TAKE WITH FOOD. Indication: FOR HIGH BLOOD PRESSURE 2) GABAPENTIN 300MG CAP TAKE ONE CAPSULE BY MOUTH THREE TIMES ACTIVE PER WEEK TAKE AFTER DIALYSIS ON DIALYSIS DAYS Indication: FOR NERVE PAIN 3) LIDOCAINE 2.5/PRILOCAINE 2.5% CREAM APPLY SPARINGLY TO ACTIVE AFFECTED AREA(S) THREE TIMES PER WEEK APPLY TO FISTULA SITE AT LEAST 30 MINUTES BEFORE DIALYSIS TREAMENT AND COVER WITH SARAN WRAP Indication: FOR LOCAL ANESTHESTIC FOR AVF CANNULATIO 4) OLOPATADINE HCL 0.2% OPH SOLN INSTILL 1 DROP IN BOTH EYES ACTIVE ONCE A DAY Indication: FOR OCULAR ALLERGIES, ITCHING 5) PEG 400 0.4%/PROP GLYCOL 0.3% OPH SOLN INSTILL 1 DROP IN ACTIVE BOTH EYES FOUR TIMES A DAY NEEDED Indication: FOR DRY EYE(S) 6) RENAL MULTIVIT W/1MG OR LESS FA TAB TAKE 1 TABLET BY MOUTH ACTIVE ONCE A DAY Indication: FOR NUTRITION/DIETARY SUPPLEMENTATION 7) SEMAGLUTIDE 1MG/0.75ML INJ PEN 3ML INJECT 1MG UNDER THE SKIN ACTIVE EVERY WEEK Indication: FOR DIABETES 8) TAMSULOSIN HCL 0.4MG CAP TAKE ONE CAPSULE BY MOUTH TWICE A ACTIVE DAY APPROXIMATELY 30 MINUTES AFTER THE SAME MEAL EACH DAY Indication: FOR BENIGN PROSTATIC HYPERPLASIA Active Non-VA Medications Status 1) Non-VA CARVEDILOL 25MG TAB 25MG BY MOUTH TWICE A DAY ACTIVE Indication: FOR HIGH BLOOD PRESSURE 9 Total Medications /es/ NIEVES MUHAMMAD MD Staff Physician Signed: 12/02/2024 12:10 Receipt Acknowledged By: 12/03/2024 16:33 /edwar/ BLU MARTE Staff Physician 12/02/2024 13:18 /edwar/ Uriel Pineda Rn, BSN REGISTERED NURSE 12/02/2024 ADDENDUM STATUS: COMPLETED UA: Test Name Result Units Range --------- ------ ----- ----- URINE COLOR Colorless Ref: Yellow APPEARANCE Clear Ref: Clear U.PH 7.0 5.0 - 8.0 U.BILIRUBIN Negative mg/dL Ref: Negative U.NITRITE Negative mg/dL Ref: Negative URINE RBC/HPF 3 /HPF 0 - 5 URINE WBC/HPF 1 /HPF 0 - 5 SQUAMOUS EPITH. <1 /HPF 0 - 5 URN.GLUCOSE Normal mg/dL Ref: Negative URN.PROTEIN 100 H mg/dL Negative - 20 URN.UROBILINOGEN Normal mg/dL Ref: Normal URN.BLOOD 1+ H mg/dL Ref: Negative-Trace URN.KETONES Negative mg/dL Ref: Negative-Trace URN.LEUK.EST. Negative mg/dL Ref: Negative-Trace URN.SPECIFIC GRAVITY 1.010 1.005 - 1.029 Comments: [place]nn, no signs infection, will d/c home. /edwar/ NIEVES MUHAMMAD MD Staff Physician Signed: 12/02/2024 12:21 NIEVES MUHAMMAD MD [facility]
--- OUTSIDE RECORDS SUMMARY | 2024-12-05 00:24 | XMS_ITS | Encounter Summary ---
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 Date/Time Encounter Type Encounter Description Reason Provider Source Jun 19, 2024 06:32 AM Outpatient Encounter GENERAL INTERNAL MEDICINE BLU MARTE Encounter Template Text not used by [place] Plan of Treatment: Future Appointments (+ 6 [...] 20 appointments. The data comes from all [facility]. Appointment Date/Time Appointment Type Appointme nt Facility Name Jul 12, 2024 08:00 AM AMBULATORY - NONE [facility] Jul 12, 2024 08:30 AM AMBULATORY - MEDICINE [facility] Aug 18, 2024 09:15 AM AMBULATORY - MEDICINE [facility] Nov 29, 2024 10:30 AM AMBULATORY - MEDICINE [facility] Dec 12, 2024 03:00 PM AMBULATORY - SURGERY [facility] Active, Pending, and Scheduled Orders This section includes a listing of several types of active, pending, and scheduled orders, including clinic medications orders, diagnostic test orders, procedure orders and consult orders; where the start date of the order is 45 days before the date of the Encounter or 45 days after the date of theEncounter. The data comes from all [facility]. Test Date/Time Test Type Test Details Facility Name May 16, 2024 12:00 AM Laboratory - Chemi stry Order HGA1C BLOOD SP [facility] Jun 15, 2024 08:20 AM Consult Order [facility] HEMODIALYSIS Cons Board Mill Supervisor's Choice [facility] Social History: Smoking Status (Most current) and Tobacco Use (All prior to encounter date) This section includes the most current, and the historical, smoking and tobacco- related health factors from the [place] facility where the Encounter took place. Current Smoking Status This section includes the most current smoking, or tobacco-related health factor, from the [place] facility where the Encounter took place. Date/Time Current Smoking Status Comment Facil ity Jun 21, 2023 01:14 PM ORYX ADMIT TOBACCO SCREEN NO [facility] Tobacco Use History This section includes a history of the smoking, or tobacco-related health factors, that were collected on or before the date of the Encounter. The data comes from the [place] facility where the Encounter took place. Date/Time [...] ALL of a patient's completed or amended [place] Advance and Rescinded Directives. The entries below indicate that a directive exists for the patient, but an actual copy is not included with this document. The data comes from all [place] facilities. Date Advance Directives Provider Source Dec 17, 2022 ADVANCE DIRECTIVE BIJAN MERRITT [facility] Feb 09, 2020 ADVANCE DIRECTIVE DISCUSSION MELY LUCIANO [facility] Feb 02, 2018 ADVANCE DIRECTIVE BEAU ALTAMIRANO [facility] Nov 29, 2006 ADVANCE DIRECTIVE MARELY CHACON [facility] Encounter Notes: All associated encounter notes This section contains the clinical notes associated to the Encounter. Date/Time Encounter Note(s) Provider Source Jun 15, 2024 06:32 AM NONVA NOTE: LOCAL TITLE[facility] C[facility] COORD PLAN STANDARD TITLE: NONVA NOTE DATE OF NOTE: JUN 15, 2024@06:32 ENTRY DATE: JUN 19, 2024@06:32:18 AUTHOR: TRISHA SOMERS EXP COSIGNER: URGENCY: STATUS: COMPLETED [facility] SELF PRESENTING CARE COORD PLAN [address] Has ADDENDA Emergency Notification Intake Date Presenting to the Facility: Jun Method of Contact: Notified from ECR worklist Notification ID: [id number] [facility] Referral #: [id number] Clinical Review Community Hospital Name: Hospital: [facility] Address: [address] City: [place] State: [place] Zip Code: [address] Community Facility Point of Contact: Name: Shannon Mc Chief complaint: weakness Primary Diagnosis: Disposition Discharged Date of discharge: Jun Discharge to home No records for this r/t found in [employer] or [employer] Faxed request for records to above hospital /edwar/ TRISHA SOMERS [facility] SPRAYER MACHINE Signed: 06/19/2024 06:46 Receipt Acknowledged By: 06/20/2024 08:19 /edwar/ BLU MARTE Staff Physician 06/20/2024 09:20 /es/ Uriel Pineda Rn, BSN REGISTERED NURSE 06/21/2024 ADDENDUM STATUS: COMPLETED RECORDS REC'D and sent to [facility] for scanning. /edwar/ YUSRA SPRING WARP DYEING VAT TENDER Signed: 06/21/2024 07:57 TRISHA SOMERS [facility]
--- OUTSIDE RECORDS SUMMARY | 2024-12-05 00:24 | XMS_ITS | Encounter Summary ---
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 Date/Time Encounter Type Encounter Description Reason Pro vider Source Sep 07, 2024 07:43 AM Outpatient Encounter COMMUNITY CARE CONSULT I[facility] Encounter [...] 20 appointments. The data comes from all [place] treatment facilities. Appointment Date/Time Appointment Type Appointme nt Facility Name Nov 29, 2024 10:30 AM AMBULATORY - MEDICINE [facility] Dec 12, 2024 03:00 PM AMBULATORY - SURGERY [facility] Social History: Smoking Status (Most current) and [...] 03:33 PM ORYX ADMIT TOBACCO SCREEN NO [facility] Sep 07, 2018 09:13 PM ORYX ADMIT TOBACCO SCREEN NO [facility] Sep 07, 2018 07:52 PM QUIT TOBACCO >7 YEARS AGO [facility] Advance Directives: All historical and [...] 17, 2022 ADVANCE DIRECTIVE BIJAN MERRITT [facility] Feb 09, 2020 ADVANCE DIRECTIVE DISCUSSION MELY LUCIANO [facility] Feb 02, 2018 ADVANCE DIRECTIVE BEAU ALTAMIRANO [facility] Nov 29, 2006 ADVANCE DIRECTIVE MARELY CHACON [facility] Encounter Notes: All associated encounter notes This section contains the clinical notes associated to the Encounter. Date/Time Encounter Note(s) Provider Source Sep 07, 2024 07:46 AM NONVA CONSULT: LOCAL TITLE: COMMUNITY CARE-CONSULT RESULT NOTE STL STANDARD TITLE: NONVA CONSULT DATE OF NOTE: SEP 07, 2024@07:46 ENTRY DATE: SEP 07, 2024@07:46:43 AUTHOR: MIKE BEACH EXP COSIGNER: URGENCY: STATUS: COMPLETED The following Community Care consult has been completed. See scanned document for report. Date of Service: February Place where service occurred: [facility] Community Care Consult Results Nephrology Comment: See result Note# [id number] /edwar/ MIKE BEACH RN Patient Care Service, Care in the Community Unit Signed: 09/07/2024 07:[address] [facility] Sep 07, 2024 07:43 AM NONVA CONSULT: LOCAL TITLE: COMMUNITY CARE-CONSULT RESULT NOTE STL STANDARD TITLE: NONVA CONSULT DATE OF NOTE: SEP 07, 2024@07:43 ENTRY DATE: SEP 07, 2024@07:44:02 AUTHOR: MIKE BEACH EXP COSIGNER: URGENCY: STATUS: COMPLETED The following Community Care consult has been completed. See scanned document for report. Date of Service: Mar Place where service occurred: [facility] Community Care Consult Results Nephrology Comment: SEE Note# [id number] Dialysis oversigt /edwar/ MIKE BEACH RN Patient Care Service, Care in the Community Unit Signed: 09/07/2024 07:46 MIKE BEACH [facility]
--- OUTSIDE RECORDS SUMMARY | 2024-12-05 00:24 | XMS_ITS | Encounter Summary ---
Author Name [facility] [facility] [place] [facility] [place] [facility] [place] Address [address] [place] [address] Care Team Providers Care Net Ui Developer Name Role Phone ERIKA DEE Primary [...] PART A Jul 12, 2019 PART A [id number] PRASANNA KATZ PATIENT MEDICARE (WNR) MEDICARE (M) PART A Jul 12, 2019 PART A [id number] [phone] PRASANNA KATZ PATIENT Selected Encounter This section includes the information on record at [place] for the Encounter. Date/Time Encounter Type Encounter Description Reason Provider Source Feb 02, 2024 12:30 PM [facility] ASSIST[facility] HEMODIALYSIS ICD-10-CM N18.6 End stage renal disease MILO JONAS Encounter Template Text not used by [facility] Assessments - Encounter Diagnoses This section includes the primary and secondary diagnoses documented for the Encounter. Date/Time Primary/Secondary Diagnosis Diagnosis Name Provider Source Feb 02, 2024 04:28 PM PRIMARY End stage renal disease [employer] [facility] Plan of Treatment: Future Appointments (+ 6 months) and Future Tests (+/- 45 days) The Plan of Treatment section includes future care activities for the [facility] [place] [facility] This section includes future appointments and future orders which are active, pending or scheduled. Future Appointments This section includes appointments that were scheduled to occur 6 months from the date of the Encounter, up to a maximum of 20 appointments. The data comes from all [place] treatment facilities. Appointment Date/Time Appointment Type Appointme nt Facility Name Feb 04, 2024 12:15 PM AMBULATORY - MEDICINE [facility] Feb 06, 2024 12:30 PM AMBULATORY - MEDICINE [facility] Feb 09, 2024 12:30 PM AMBULATORY - MEDICINE [facility] February 11, 2024 12:30 PM AMBULATORY - MEDICINE [facility] February 13, 2024 12:30 PM AMBULATORY - MEDICINE [facility] February 15, 2024 08:00 AM AMBULATORY - NONE [facility] February 15, 2024 08:30 AM AMBULATORY - MEDICINE [facility] Apr 05, 2024 09:30 AM AMBULATORY - MEDICINE [facility] Apr 27, 2024 07:30 AM AMBULATORY - SURGERY [facility] May 02, 2024 08:00 AM AMBULATORY - NONE [facility] May 02, 2024 08:30 AM AMBULATORY - MEDICINE [facility] May 16, 2024 02:00 PM AMBULATORY - MEDICINE . [facility] Jul 12, 2024 08:00 AM AMBULATORY - NONE [facility] Jul 12, 2024 08:30 AM AMBULATORY - MEDICINE [facility] Lab Results: +/- 30 days of the encounter This section includes the Chemistry and Hematology Lab Results on record with [place] for the patient. Radiology Reports and Pathology Reports are provided separately, in subsequent sections. Lab Results This section contains the Chemistry/Hematology Results that were resulted 30 days before or 30 daysafter the date of the Encounter. Date/Time Source Result Type Result - Unit Interpretation Reference Range Comment Feb 09, 2024 12:[address] [facility] HEP B CORE AB TOTAL. (STL) Specimen Type: SERUM No comment entered. Ordering Provider: KYLER PURCELL Report Released Date/Time: Feb 09, 2024 10:43 AM Reporting Lab: [address] Performing Lab: [place] [address] HEP B CORE AB TOTAL. (STL) Nonreactive Nonreactive Feb 09, 2024 12:[address] [facility] HEP HB S Ag ([place]) (STL) Specimen Type: SERUM No comment entered. Ordering Provider: KYLER PURCELL Report Released Date/Time: Feb 09, 2024 10:43 AM Reporting Lab: [place] [address] Performing Lab: [address] [address] HEP HB S Ag ([place]) (STL) Nonreactive Nonreactive Feb 09, 2024 12:[address] [facility] HEPATITIS B SURFACE AB PNL Specimen Type: SERUM No comment entered. Ordering Provider: KYLER PURCELL Report Released Date/Time: Feb 09, 2024 10:43 AM Reporting Lab: [place] [address] Performing Lab: [address] [address] HEP B Surface Ab-HBsAB (STL) REACTIVE m[IU]/mL Nonreactive HEP Bs AB-QUANT (STL) 79.36 m[IU]/mL Feb 09, 2024 12:[address] [facility] RENAL PANEL Specimen Type: PLASMA Comment: No hemolysis noted. Ordering Provider: KYLER PURCELL Report Released Date/Time: Feb 04, 2024 03:20 PM Reporting Lab: [facility] [address] [facility] [address] Performing Lab: [address] [address] CREATININE 7.69 mg/dL H 0.7-1.3 UREA NITROGEN 52.2 mg/dL H 9.0-25.0 GLUCOSE 147 mg/dL H 72-99 SODIUM 142 meq/L 136-145 POTASSIUM 4.1 meq/L 3.5-5 CHLORIDE 107 meq/L 98-107 CARBON DIOXIDE 22 meq/L 22-31 CALCIUM 10.2 mg/dL 8.4-10.4 PHOSPHOROUS 3.7 mg/dL 2.3-4.7 ALBUMIN 3.7 g/dL 3.4-5 EGFR (CKD-EPI 2020) 7.1 LL >60 Feb 09, 2024 12:[address] [facility] CBC Specimen Type: BLOOD No comment entered. Ordering Provider: KYLER PURCELL Report Released Date/Time: Feb 04, 2024 03:20 PM Reporting Lab: [address] [address] Performing Lab: [address] [address] WBC 9.7 10*3/uL 3.6-11.2 RBC 3.09 10*6/uL [...] 10*3/uL 0.00-0.20 Feb 04, 2024 05:[address] [facility] URR-POST PANEL (STL) Specimen Type: PLASMA No comment entered. Ordering Provider: KYLER PURCELL Report Released Date/Time: Feb 04, 2024 01:42 PM Reporting Lab: [address] [address] Performing Lab: [address] [address] BUN-POST DIALYSIS 16.2 mg/dL 9.0-25.0 URR (STL) 70.4 67.0-100.0 Feb 04, 2024 12:[address] [facility] RENAL PANEL Specimen Type: PLASMA Comment: No hemolysis noted. Ordering Provider: KYLER PURCELL Report Released Date/Time: Feb 04, 2024 01:42 PM Reporting Lab: [address] [address] Performing Lab: [address] [address] CREATININE 6.97 mg/dL H 0.7-1.3 UREA NITROGEN 54.7 mg/dL H 9.0-25.0 GLUCOSE 134 mg/dL H 72-99 SODIUM 142 meq/L 136-145 POTASSIUM 4.0 meq/L 3.5-5 CHLORIDE 105 meq/L 98-107 CARBON DIOXIDE 24 meq/L 22-31 CALCIUM 9.7 mg/dL 8.4-10.4 PHOSPHOROUS 4.8 mg/dL H 2.3-4.7 ALBUMIN 3.9 g/dL 3.4-5 EGFR (CKD-EPI 2020) 7.9 LL >60 Feb 02, 2024 04:[address] [facility] URR-POST PANEL (STL) Specimen Type: PLASMA No comment entered. Ordering Provider: KYLER PURCELL Report Released Date/Time: Feb 02, 2024 03:39 PM Reporting Lab: [facility] [address] [place] [address] Performing Lab: [address] [address] BUN-POST DIALYSIS 22.9 mg/dL 9.0-25.0 URR (STL) 60.9 L 67.0-100.0 Feb 02, 2024 11:[address] [facility] RENAL PANEL Specimen Type: PLASMA Comment: No hemolysis noted. Ordering Provider: KYLER PURCELL Report Released Date/Time: Feb 02, 2024 07:35 AM Reporting Lab: [address] [address] Performing Lab: [address] [address] CREATININE 8.34 mg/dL H 0.7-1.3 UREA NITROGEN 58.6 mg/dL H 9.0-25.0 GLUCOSE 169 mg/dL H 72-99 SODIUM 142 meq/L 136-145 POTASSIUM 4.6 meq/L 3.5-5 CHLORIDE 111 meq/L H 98-107 CARBON DIOXIDE 20 meq/L L 22-31 CALCIUM 9.2 mg/dL 8.4-10.4 PHOSPHOROUS 3.6 mg/dL 2.3-4.7 ALBUMIN 3.7 g/dL 3.4-5 EGFR (CKD-EPI 2020) 6.4 LL >60 Feb 01, 2024 11:[address] [facility] 24H UR CHEM PANEL (STL) Specimen Type: 24-HOUR URINE No comment entered. Ordering Provider: KYLER PURCELL Report Released Date/Time: Jan 28, 2024 04:55 PM Reporting Lab: [address] [address] Performing Lab: [address] [address] VOLUME 3289 mL SODIUM 24-HOUR URINE 226.941 H 40-220 POTASSIUM 24-HOUR URINE 35.8501 25-125 CHLORIDE 24-HOUR URINE 171.028 110-250 PROTEIN 24-HOUR URINE 1986.556 H 0-299.9 CREATININE 24-HOUR URINE 7218.219 025-1249 Jan 28, 2024 05:[address] [facility] CBC Specimen Type: BLOOD No comment entered. Ordering Provider: KYLER PURCELL Report Released Date/Time: Jan 28, 2024 05:07 PM Reporting Lab: [address] [address] Performing Lab: [address] [address] WBC 8.9 10*3/uL 3.6-11.2 RBC 2.96 10*6/uL [...] 0.00-0.20 Jan 26, 2024 01:[address] [facility] PTH, INTACT (STL) Specimen Type: SERUM No comment entered. Ordering Provider: KYLER PURCELL Report Released Date/Time: Jan 21, 2024 03:14 PM Reporting Lab: [address] [address] Performing Lab: [address] [address] PTH, INTACT (STL) 141.40 pg/mL H 8.7-77.7 Jan 26, 2024 01:[address] [facility] RENAL PANEL Specimen Type: PLASMA Comment: No hemolysis noted. Ordering Provider: KYLER PURCELL Report Released Date/Time: Jan 21, 2024 03:14 PM Reporting Lab: [facility] [address] [facility] [address] Performing Lab: [facility] [address] [facility] [address] CREATININE 8.25 mg/dL H 0.7-1.3 UREA NITROGEN 63.1 mg/dL H 9.0-25.0 GLUCOSE 157 mg/dL H 72-99 SODIUM 137 meq/L 136-145 POTASSIUM 4.2 meq/L 3.5-5 CHLORIDE 100 meq/L 98-107 CARBON DIOXIDE 26 meq/L 22-31 CALCIUM 9.6 mg/dL 8.4-10.4 PHOSPHOROUS 4.9 mg/dL H 2.3-4.7 ALBUMIN 3.7 g/dL 3.4-5 EGFR (CKD-EPI 2020) 6.5 LL >60 Jan 26, 2024 01:[address] [facility] IRON/TIBC PROFILE Specimen Type: SERUM No comment entered. Ordering Provider: KYLER PURCELL Report Released Date/Time: Jan 21, 2024 03:14 PM Reporting Lab: [place] [id number] [facility] [address] Performing Lab: [facility] [address] [facility] [address] TIBC 225 ug/dL L 250-450 TRANSFERRIN 180 mg/dL 163-344 IRON SATURATION 23 20-50 IRON 52 ug/dL L 65-175 Jan 26, 2024 01:[address] [facility] FERRITIN Specimen Type: SERUM No comment entered. Ordering Provider: KYLER PURCELL Report Released Date/Time: Jan 21, 2024 03:14 PM Reporting Lab: [facility] [address] [facility] [address] Performing Lab: [facility] [address] [facility] [address] FERRITIN 118.78 ng/mL 22-275 Jan 26, 2024 01:[address] [facility] CBC Specimen Type: BLOOD No comment entered. Ordering Provider: KYLER PURCELL Report Released Date/Time: Jan 21, 2024 03:14 PM Reporting Lab: [facility] [address] [place] [address] Performing Lab: [place] [address] [facility] [address] WBC 7.8 10*3/uL 3.6-11.2 RBC 2.95 10*6/uL [...] 10*3/uL 0.00-0.20 Jan 21, 2024 12:[address] [facility] PT/INR NEW (STL-MS) Specimen Type: PLASMA No comment entered. Ordering Provider: KYLER PURCELL Report Released Date/Time: Jan 21, 2024 12:43 PM Reporting Lab: [address] [address] Performing Lab: [facility] [address] [facility] [address] PROTIME 15.9 s H 9.4-12.5 INR VALUE 1.4 {INR} Jan 21, 2024 12:[address] [facility] RENAL PANEL Specimen Type: PLASMA Comment: No hemolysis noted. Ordering Provider: KYLER PRUCELL Report Released Date/Time: Jan 21, 2024 12:41 PM Reporting Lab: [address] [address] Performing Lab: [address] [address] CREATININE 8.11 mg/dL H 0.7-1.3 UREA NITROGEN 82.6 mg/dL H 9.0-25.0 GLUCOSE 114 mg/dL H 72-99 SODIUM 139 meq/L 136-145 POTASSIUM 5.1 meq/L H 3.5-5 CHLORIDE 109 meq/L H 98-107 CARBON DIOXIDE 19 meq/L L 22-31 CALCIUM 9.3 mg/dL 8.4-10.4 PHOSPHOROUS 4.1 mg/dL 2.3-4.7 ALBUMIN 3.8 g/dL 3.4-5 EGFR (CKD-EPI 2020) 6.6 LL >60 Jan 14, 2024 11:[address] [facility] RENAL PANEL Specimen Type: PLASMA Comment: No hemolysis noted. Ordering Provider: KYLER PURCELL Report Released Date/Time: Jan 13, 2024 07:58 AM Reporting Lab: [address] [address] Performing Lab: [address] [address] CREATININE 8.05 mg/dL H 0.7-1.3 UREA NITROGEN 70.7 mg/dL H 9.0-25.0 GLUCOSE 155 mg/dL H 72-99 SODIUM 140 meq/L 136-145 POTASSIUM 5.1 meq/L H 3.5-5 CHLORIDE 107 meq/L 98-107 CARBON DIOXIDE 21 meq/L L 22-31 CALCIUM 9.6 mg/dL 8.4-10.4 PHOSPHOROUS 4.8 mg/dL H 2.3-4.7 ALBUMIN 4.1 g/dL 3.4-5 EGFR (CKD-EPI 2020) 6.7 LL >60 Jan 11, 2024 11:[address] [facility] GLUCOSE,BLOOD-poct (STL) Specimen Type: BLOOD Comment: Test Performed by: [id number] Meter #: [id number] Ordering Provider: LIDIA HUYNH Report Released Date/Time: Jan 11, 2024 11:50 AM Reporting Lab: [address] [address] Performing Lab: [address] [address] GLUCOSE,BLOOD- poct (STL) 106 mg/dL H 72-99 Jan 11, 2024 11:[address] [facility] GLUCOSE,BLOOD-poct (STL) Specimen Type: BLOOD Comment: Test Performed by: [id number] Meter #: [id number] Ordering Provider: LIDIA HUYNH Report Released Date/Time: Jan 11, 2024 11:18 AM Reporting Lab: [address] [address] Performing Lab: [address] [address] GLUCOSE,BLOOD- poct (STL) 109 mg/dL H 72-Jan 11, 2024 05:[address] [facility] GLUCOSE,BLOOD-poct (STL) Specimen Type: BLOOD Comment: Test Performed by: [id number] Meter #: [id number] Ordering Provider: LIDIA HUYNH Report Released Date/Time: Jan 11, 2024 05:25 AM Reporting Lab: [address] [address] Performing Lab: [address] [address] GLUCOSE,BLOOD- poct (STL) 88 mg/dL 72-Jan 10, 2024 08:[address] [facility] GLUCOSE,BLOOD-poct (STL) Specimen Type: BLOOD Comment: Test Performed by: [id number] Meter #: [id number] Ordering Provider: LIDIA HUYNH Report Released Date/Time: Jan 10, 2024 08:31 PM Reporting Lab: [address] [address] Performing Lab: [place] [address] [facility] [address] GLUCOSE,BLOOD- poct (STL) 153 mg/dL H 72-99 Jan 10, 2024 04:[address] [facility] GLUCOSE,BLOOD-poct (STL) Specimen Type: BLOOD Comment: Test Performed by: [id number] Meter #: [id number] Ordering Provider: LINOMED Report Released Date/Time: Jan 10, 2024 05:05 PM Reporting Lab: [place] [address] [facility] [address] Performing Lab: [address] [address] GLUCOSE,BLOOD- poct (STL) 84 mg/dL 72-99 Jan 10, 2024 11:[address] [facility] GLUCOSE,BLOOD-poct (STL) Specimen Type: BLOOD Comment: Test Performed by: [id number] Meter #: [id number] Ordering Provider: LIDIA HUYNH Report Released Date/Time: Jan 10, 2024 12:03 PM Reporting Lab: [place] [address] [facility] [address] Performing Lab: [place] [address] [facility] [address] GLUCOSE,BLOOD- poct (STL) 99 mg/dL 72-99 Jan 10, 2024 04:[address] [facility] GLUCOSE,BLOOD-poct (STL) Specimen Type: BLOOD Comment: Test Performed by: [id number] Meter #: [id number] Ordering Provider: LINOMED Report Released Date/Time: Jan 10, 2024 05:29 AM Reporting Lab: [address] [address] Performing Lab: [facility] [address] [facility] [address] GLUCOSE,BLOOD- poct (STL) 109 mg/dL H -Jan 09, 2024 08:[address] [facility] GLUCOSE,BLOOD-poct (STL) Specimen Type: BLOOD Comment: Test Performed by: [id number] Meter #: [id number] Ordering Provider: LIDIA HUYNH Report Released Date/Time: Jan 09, 2024 08:28 PM Reporting Lab: [place] [address] [facility] [address] Performing Lab: [place] [address] [facility] [address] GLUCOSE,BLOOD- poct (STL) 110 mg/dL H -Jan 09, 2024 04:[address] [facility] GLUCOSE,BLOOD-poct (STL) Specimen Type: BLOOD Comment: Test Performed by: [id number] Meter #: [id number] Ordering Provider: LIDIA HUYNH Report Released Date/Time: Jan 09, 2024 04:34 PM Reporting Lab: [place] [address] [facility] [address] Performing Lab: [place] [address] [facility] [address] GLUCOSE,BLOOD- poct (STL) 119 mg/dL H -Jan 09, 2024 02:[address] [facility] MAGNESIUM Specimen Type: PLASMA Comment: No hemolysis noted. Ordering Provider: TATI ZAVALA Report Released Date/Time: Jan 09, 2024 07:51 AM Reporting Lab: [place] [address] [facility] [address] Performing Lab: [address] [address] MAGNESIUM 1.6 mg/dL 1.6-2.6 Jan 09, 2024 02:[address] [facility] RENAL PANEL Specimen Type: PLASMA Comment: No hemolysis noted. Ordering Provider: TATI ZAVALA Report Released Date/Time: Jan 09, 2024 07:51 AM Reporting Lab: [address] [address] Performing Lab: [address] [address] CREATININE 5.13 mg/dL H 0.7-1.3 UREA NITROGEN 46.2 mg/dL H 9.0-25.0 GLUCOSE 177 mg/dL H 72-99 SODIUM 136 meq/L 136-145 POTASSIUM 4.0 meq/L 3.5-5 CHLORIDE 101 meq/L 98-107 CARBON DIOXIDE 23 meq/L 22-31 CALCIUM 8.6 mg/dL 8.4-10.4 PHOSPHOROUS 2.7 mg/dL 2.3-4.7 ALBUMIN 3.6 g/dL 3.4-5 EGFR (CKD-EPI 2020) 11.5 LL >60 Jan 09, 2024 12:[address] [facility] GLUCOSE,BLOOD-poct (STL) Specimen Type: BLOOD Comment: Test Performed by: [id number] Meter #: [id number] Ordering Provider: LIDIA HUYNH Report Released Date/Time: Jan 09, 2024 12:38 PM Reporting Lab: [address] [address] Performing Lab: [address] [address] GLUCOSE,BLOOD- poct (STL) 98 mg/dL 72-99 Jan 09, 2024 07:[address] [facility] GLUCOSE,BLOOD-poct (STL) Specimen Type: BLOOD Comment: Test Performed by: [id number] Meter #: [id number] Ordering Provider: LIDIA HUYNH Report Released Date/Time: Jan 09, 2024 07:58 AM Reporting Lab: [address] [address] Performing Lab: [address] [address] GLUCOSE,BLOOD- poct (STL) 86 mg/dL 72-99 Jan 08, 2024 09:[address] [facility] GLUCOSE,BLOOD-poct (STL) Specimen Type: BLOOD Comment: Test Performed by: [id number] Meter #: [id number] Ordering Provider: LIDIA HUYNH Report Released Date/Time: Jan 08, 2024 09:47 PM Reporting Lab: [address] [address] Performing Lab: [address] [address] GLUCOSE,BLOOD- poct (STL) 90 mg/dL 72-99 Jan 08, 2024 09:[address] [facility] HEPATITIS B SURFACE AB PNL Specimen Type: SERUM No comment entered. Ordering Provider: EFREN TAYLOR Report Released Date/Time: Jan 08, 2024 02:35 PM Reporting Lab: [address] [address] Performing Lab: [address] [address] HEP B Surface Ab-HBsAB (STL) REACTIVE m[IU]/mL Nonreactive HEP Bs AB-QUANT (STL) 63.22 m[IU]/mL Jan 08, 2024 09:[address] [facility] HEP B CORE AB TOTAL. (STL) Specimen Type: SERUM No comment entered. Ordering Provider: EFREN TAYLOR Report Released Date/Time: Jan 08, 2024 02:35 PM Reporting Lab: [address] [address] Performing Lab: [address] [address] HEP B CORE AB TOTAL. (STL) Nonreactive Nonreactive Jan 08, 2024 09:[address] [facility] HEP HB S Ag ([place]) (STL) Specimen Type: SERUM No comment entered. Ordering Provider: EFREN TAYLOR Report Released Date/Time: Jan 08, 2024 02:35 PM Reporting Lab: [address] [address] Performing Lab: [place] [address] [facility] [address] HEP HB S Ag ([place]) (STL) Nonreactive Nonreactive Jan 08, 2024 04:[address] [facility] GLUCOSE,BLOOD-poct (STL) Specimen Type: BLOOD Comment: Test Performed by: [id number] Meter #: [id number] Ordering Provider: LIDIA HUYNH Report Released Date/Time: Jan 08, 2024 05:09 PM Reporting Lab: [place] [address] [facility] [address] Performing Lab: [address] [address] GLUCOSE,BLOOD- poct (STL) 95 mg/dL 72-99 Jan 08, 2024 11:[address] [facility] GLUCOSE,BLOOD-poct (STL) Specimen Type: BLOOD Comment: Test Performed by: [id number] Meter #: [id number] Ordering Provider: LIDIA HUYNH Report Released Date/Time: Jan 08, 2024 11:37 AM Reporting Lab: [place] [address] [facility] [address] Performing Lab: [address] [address] GLUCOSE,BLOOD- poct (STL) 105 mg/dL H 72-99 Jan 08, 2024 07:[address] [facility] RENAL PANEL Specimen Type: PLASMA Comment: No hemolysis noted. Ordering Provider: LIZETTE GRIFFIN Report Released Date/Time: Jan 07, 2024 11:24 PM Reporting Lab: [place] [address] [facility] [address] Performing Lab: [address] [address] CREATININE 8.50 mg/dL H 0.7-1.3 UREA NITROGEN 88.2 mg/dL H 9.0-25.0 GLUCOSE 70 mg/dL L 72-99 SODIUM 139 meq/L 136-145 POTASSIUM 5.4 meq/L H 3.5-5 CHLORIDE 110 meq/L H 98-107 CARBON DIOXIDE 19 meq/L L 22-31 CALCIUM 9.4 mg/dL 8.4-10.4 PHOSPHOROUS 5.1 mg/dL H 2.3-4.7 ALBUMIN 3.8 g/dL 3.4-5 EGFR (CKD-EPI 2020) 6.3 LL >60 Jan 08, 2024 06:[address] [facility] GLUCOSE,BLOOD-poct (STL) Specimen Type: BLOOD Comment: Test Performed by: [id number] Meter #: [id number] Ordering Provider: LIDIA HUYNH Report Released Date/Time: Jan 08, 2024 06:48 AM Reporting Lab: [address] [address] Performing Lab: [address] [address] GLUCOSE,BLOOD- poct (STL) 86 mg/dL 72-99 Jan 07, 2024 11:[address] [facility] RENAL PANEL Specimen Type: PLASMA Comment: No hemolysis noted. Ordering Provider: LIZETTE GRIFFIN Report Released Date/Time: Jan 07, 2024 11:38 PM Reporting Lab: [address] [address] Performing Lab: [address] [address] CREATININE 8.68 mg/dL H 0.7-1.3 UREA NITROGEN 92.6 mg/dL H 9.0-25.0 GLUCOSE 143 mg/dL H 72-99 SODIUM 138 meq/L 136-145 POTASSIUM 5.0 meq/L 3.5-5 CHLORIDE 111 meq/L H 98-107 CARBON DIOXIDE 17 meq/L L 22-31 CALCIUM 8.8 mg/dL 8.4-10.4 PHOSPHOROUS 3.8 mg/dL 2.3-4.7 ALBUMIN 3.8 g/dL 3.4-5 EGFR (CKD-EPI 2020) 6.1 LL >60 Jan 07, 2024 11:[address] [facility] GLUCOSE,BLOOD-poct (STL) Specimen Type: BLOOD Comment: Test Performed by: [id number] Meter #: [id number] Ordering Provider: LIDIA MOSCOSO Report Released Date/Time: Jan 07, 2024 11:47 PM Reporting Lab: [facility] [address] [place] [address] Performing Lab: [address] [address] GLUCOSE,BLOOD- poct (STL) 157 mg/dL H 72-99 Jan 07, 2024 11:[address] [facility] MRSA SURVL NARES DNA Specimen Type: [...] Jan 07, 2024 11:24 PM Reporting Lab: [facility] [address] [place] [phone] Performing Lab: [address] [address] MRSA SURVL NARES DNA Negative Negative Jan 07, 2024 09:[address] [facility] POTASSIUM Specimen Type: PLASMA Comment: No hemolysis noted. Ordering Provider: ANNA CALI Report Released Date/Time: Jan 07, 2024 08:38 PM Reporting Lab: [facility] [address] [place] [phone] Performing Lab: [address] [address] POTASSIUM 5.7 meq/L H 3.5-5 Jan 07, 2024 07:[address] [facility] URINALYSIS (STL-PB) Specimen Type: URINE No comment entered. Ordering Provider: ANNA CALI Report Released Date/Time: Jan 07, 2024 05:18 PM Reporting Lab: [address] [address] Performing Lab: [address] [address] URINE COLOR Colorless Yellow U.BILIRUBIN Negative mg/dL [...] 1.015 1.005-1.029 Jan 07, 2024 05:[address] [facility] BRAIN NATRIURETIC PEPTIDE Specimen Type: PLASMA No comment entered. Ordering Provider: GRACIELA MANN Report Released Date/Time: Jan 07, 2024 04:59 PM Reporting Lab: [address] [address] Performing Lab: [address] [address] BRAIN NATRIURETIC PEPTIDE 59.0 pg/mL 0-100 Jan 07, 2024 05:[address] [facility] COVID-19 DIAGNOSTIC (FLU/RSV)(STL) Specimen Type: NASOPHARYNX [...] Jan 07, 2024 04:59 PM Reporting Lab: [facility] [address] [facility] [address] Performing Lab: [address] [address] INFLUENZA A Negative Negative INFLUENZA B Negative Negative COVID-19 (STL-PB) Not Detected Not Detected RSV (Cepheid) NEGATIVE Negative Jan 07, 2024 05:[address] [facility] CBC Specimen Type: BLOOD No comment entered. Ordering Provider: GRACIELA MANN Report Released Date/Time: Jan 07, 2024 04:59 PM Reporting Lab: [address] [address] Performing Lab: [address] [address] WBC 9.2 10*3/uL 3.6-11.2 RBC 3.81 10*6/uL [...] 10*3/uL 0.00-0.20 Jan 07, 2024 05:[address] [facility] COMPREHENSIVE METABOLIC PANEL Specimen Type: PLASMA Comment: Aspartate Transaminase result may show positive bias due to hemolysis. K result canceled due to hemolysis. Specimen moderately hemolyzed. K cancelled due to moderate hemolysis. Called to : Phillip Cee RN at: 1902 on: 01/07/2024 by: T[place]LE Ordering Provider: GRACIELA MANN Report Released Date/Time: Jan 07, 2024 04:59 PM Reporting Lab: [facility] [address] [facility] [address] Performing Lab: [facility] [address] [facility] [address] CREATININE 8.88 mg/dL H 0.7-1.3 UREA NITROGEN [...] 8-40 EGFR (CKD-EPI 2020) 5.9 LL >60 Social History: Smoking Status (Most current) and Tobacco Use (All prior to encounter date) This section includes the most current, and the historical, smoking and tobacco- related health factors from the [place] facility where the Encounter took place. Current Smoking Status This section includes the most current smoking, or tobacco-related health factor, from the [place] facility where the Encounter took place. Date/Time Current Smoking Status Comment Ester ity Jun 21, 2023 01:14 PM ORYX ADMIT TOBACCO SCREEN NO [facility] Tobacco Use History This section includes a history of the smoking, or tobacco-related health factors, that were collected on or before the date of the Encounter. The data comes from the [place] facility where the Encounter took place. Date/Time Smoking Status/Tobacco Use Comment F acility Dec 12, 2022 04:00 PM ORYX ADMIT TOBACCO SCREEN NO [facility] Jun 25, 2022 03:24 PM VA-TOBACCO FORMER USER [facility] Jun 25, 2022 03:24 PM VA-TOBACCO QUIT [address] [facility] Dec 23, 2021 04:59 PM ORYX ADMIT TOBACCO SCREEN REFUSED [facility] May 24, 2020 11:27 PM ORYX ADMIT TOBACCO SCREEN NO [facility] Dec 12, 2019 10:24 AM VA-TOBACCO FORMER USER [facility] Dec 12, 2019 10:24 AM VA-TOBACCO QUIT [address] [facility] Aug 03, 2019 02:11 AM ORYX ADMIT TOBACCO SCREEN REFUSED [facility] Oct 12, 2018 01:14 AM QUIT TOBACCO >[address] [facility] Oct 11, 2018 03:33 PM ORYX ADMIT TOBACCO SCREEN NO [facility] Sep 07, 2018 09:13 PM ORYX ADMIT TOBACCO SCREEN NO [facility] Sep 07, 2018 07:52 PM QUIT TOBACCO >[address] [facility] Advance Directives: All historical and current Section Date Range: From patient's date of to the date document was created. This section includes ALL of a patient's completed or amended [place] Advance and Rescinded Directives. The entries below indicate that a directive exists for the patient, but an actual copy is not included with this document. The data comes from all [facility]. Date Advance Directives Provider Source Dec 17, 2022 ADVANCE DIRECTIVE BIJAN MERRITT [facility] Feb 09, 2020 ADVANCE DIRECTIVE DISCUSSION MELY LUCIANO [facility] Feb 02, 2018 ADVANCE DIRECTIVE BEAU ALTAMIRANO [facility] Nov 29, 2006 ADVANCE DIRECTIVE MARELY CHACON TA [facility] Radiology Reports: +/- 30 days of [...] the Encounter. The data comes from all [facility] treatment facilities. Date/Time Radiology Report Provider Source Jan 07, 2024 08:01 PM CHEST PORTABLE: NAGI KATZ [id number] -[id number] M Exm Date: JAN 07, 2024@20:01 Req Phys: KARELY,ANNA Kathy Pereyra Loc: -EMERGENCY DEPT 3RD SHIFT (R Img Loc: -MAIN RADIOLOGY SUITE Service: Unknown (Case [id number] COMPLETE) CHEST PORTABLE (RAD Detailed) CPT:36766 Proc Modifiers : Portable Reason for Study: weakness, ESRD Clinical History: Report Status: Verified Date Reported: JAN 07, 2024 Date Verified: JAN 07, 2024 Nail Welter E-Sig: Report: CHEST PORTABLE HISTORY: weakness, ESRD COMPARISON: July 26, 2023 TECHNIQUE: One view of the chest was performed at the local [facility] facility. images were received by the [place] National [facility] (NTP) for interpretation. FINDINGS: Bilateral peribronchial thickening. Patchy bilateral lower lobe lung opacities. Mildly tortuous aorta. No acute bony abnormalities. Impression: 1. Bilateral peribronchial thickening. 2. Patchy bilateral lung opacities likely represent atelectasis. 3. No pneumothorax. READING PHYSICIAN: Madhu Patton M.D. -[id number] 01/07/2024 19:[address] [facility] National Teleradiology Program [phone] (For Medical Practitioner Use Only) Attention Patients / Veterans: If you have questions or concerns about these test results, please contact your ordering provider or primary care team. Primary Interpreting Staff: RADIOLOGY,OUTSIDE SERVICE, Staff Physician / RADIOLOGY,OUTSIDE SERVICE [facility] Encounter Notes: All associated encounter notes This section contains the clinical notes associated to the Encounter. Date/Time Encounter Note(s) Provider Source Feb 02, 2024 05:07 PM DIALYSIS NOTE: LOCAL TITLE: HEMODIALYSIS RUNSHEET APPOINTMENT [facility] STANDARD TITLE: DIALYSIS NOTE DATE OF NOTE: FEB 02, 2024@17:07:50 ENTRY DATE: FEB 02, 2024@17:07:50 AUTHOR: MILO JONAS EXP COSIGNER: URGENCY: routine STATUS: COMPLETED Dialysis Runsheet Appointment on Feb 02, 2024@12:54 Patient: NAGI KATZ Treatment Date: 02-Feb-2024 1254 Status: Discharged Latest Lab Result: URR: (, ) Kt/V: (, ) HgB: (, ) HCT: (, ) Diagnosis: End stage renal disease Patient Type: Inpatient Allergies: MORPHINE Resuscitate: [x] YES [ ] NO HD Summary Tables TREATMENT SUMMARY Treatment Start Time 02-Feb-2024 1254 Treatment End Time 02-Feb-2024 1628 Duration(ordered): 3:30 Duration(manually adjusted): 3:34 Weights (Kg) and Fluid Removed (L): Date Pre Weight Target Weight Post Weight Excess Weight IDW Goal Weight Target UF Achieved UF Current 101.30 0.00 101.50 101.30 0.00 0.50 0.38 28-Jan-2024 103.60 0.00 103.60 103.60 0.60 0.00 0.50 0.80 26-Jan-2024 103.70 0.00 103.00 103.70 2.60 0.00 0.50 1.01 Blood Pressures (mmHg) & Fluid intake (mL) during treatment: Date Pre BP Post BP Lowest BP Highest BP IVF Given (mL) PO Fluid (mL) Current Sitting 122/59 Standing 151/74 106/57 163/68 0.40 -- -- -- -- 28-Jan-2024 Sitting 148/70 Sitting 152/74 136/93 178/76 Standing 150/75 -- -- -- -- 26-Jan-2024 Sitting 106/61 Standing 140/65 109/60 142/72 -- -- -- -- Pulse and Temp: Date Pre Pulse Post Pulse Lowest Pulse Highest Pulse Pre Temp Post Temp Current Sitting 63 Standing 98 56 87 97.3 97.5 -- -- -- -- 28-Jan-2024 Sitting 74 Sitting 70 61 68 97.1 98.0 Standing 74 -- -- -- -- 26-Jan-2024 Sitting 63 Standing 72 57 67 97.6 -- -- -- -- HD Times Date Prescribed Time Achieved Time Treatment Start Treatment End Current 3:30 3:34 1254 1628 28-Jan-2024 3:30 3:29 1352 1722 26-Jan-2024 3:30 3:35 1303 1638 Day's Order Related Problem: End stage renal disease Access Type: Fistula Access Site: VIRGIE Backup Access: Backup Access Site: Needle Gauge: Freezing: [ ] YES [x] NO Machine Type: Pax Gambro Isolation: [ ] YES [x] NO Conventional HD Prosthesis(kg): Wheelchair(kg): Target Weight(kg): 0.00 Duration(h): 3:30 or Target UF(kg): 0.50 Frequency(x/wk): 3.00 Dialysate Temp(C): 37.00 Dialysis Type: [ ] daytime [ ] nocturnal Prescribed BVP(L): Dialysate Type: Saline Inf. (mL): FAC ENGINEER Blood Flow(ml/min): Hemodiafiltr. Volume(l): Hemodiafiltr. Fluid Type: [...] successful. May challenge with 0.5kg if he has edema. Thank you. Anticoagulant: HEPARIN NA (PORK) 1000UNT Prebolus: Hourly: Cutoff time(min): Units: UNIT Post Art Instill: Post Glen Instill: Heparin Option: Instructions: Day's Hemodialysis Order Changes: Time Parameter Old Value New Value Comments Verified Verified Time Verified By == Access ======== Access Type: Fistula only [...] ] YES [x] NO Local Anesthetic (min): [x] YES [ ] NO Hemostasis Time: Arterial Port (min): 10 Venous Port (min): 10 Cannulated Glen: 1 Staff: GRACIELA MACEOD Cannulated Art: 1 Staff: GRACIELA MACEDO General: Today's Assessment: == Predialysis ==== Extra Treatment: [ ] YES [x] NO Received From: Staff On: GRACIELA MACEDO Station: Chair 11 Machine #: C - 13 Resp Caregiver: Treat Caregiver: Arrival Time: 02-Feb-2024 1245 Mode: walking By/With: unaccompanied Vital Signs Temp(C): 97.30 Resp: 18 Time: 1238 Sitting BP: 122/59 Sitting Pulse: 63 Time: BP: Pulse: Weights Measure Wt(kg): 101.30 Target Weight(kg): 0.00 Prosthesis Wt(kg): or Target UF(kg): 0.50 Wheelchair Wt(kg): Weight Change(kg): Current Wt(kg): 101.30 Excess Weight(kg): 101.30 Total Fluid Admin(kg): 0.40 Expected UF Vol(kg): 101.70 Target TMP(mm/Hg): UFR(kg/hr : ml/kg/hr): 28.94 : ? 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 No signs of distress. No complaints pre treatment. Patient requested Lidocaine inj for cannulation. Patient is sitting in chair with his legs elevated. No fluid being removed d/t patient having no dry weught ordered. Acknowledged On: 02-Feb-2024 By: MILO JONAS Pain: Acuity: 0 Type: Location: Measures: Heparin: Pump Start At: By: Hourly Rate: Bolus: Same Syringe: [ ] YES [x] NO Total in Syringe: Verified By: Time: Communication: Preferred Language: Maltese Providier Proficient: [ ] YES [x] NO Addressograph Operator Desired: [ ] YES [x] NO Offered: [ ] YES [x] NO == Dialysis Log DIALYSIS LOG Start Date/Time: 02-Feb-2024 2654 Table 1: Dialysis Data Time BP MAP Pulse BFR BVP AP FAC ENGINEER TMP UFR TFR HEP Hep Com 1254 160 0.0 -20 70 15 0.11 : ? 0.00 0.0 1254 106/57 0.0 69 160 0.0 -20 70 15 0.11 : ? 0.00 0.0 1258 114/57 0.0 61 290 0.8 -180 130 10 0.11 : ? 0.00 0.0 1309 124/61 0.0 57 300 4.2 -230 150 10 0.11 : ? 0.02 0.0 1325 132/64 0.0 56 290 8.9 -290 130 15 0.11 : ? 0.04 0.0 1340 139/61 0.0 56 300 13.2 -190 160 10 0.11 : ? 0.07 0.0 1355 142/68 0.0 58 300 17.7 -150 160 10 0.11 : ? 0.11 0.0 1410 138/68 0.0 58 310 22.2 -140 160 15 0.11 : ? 0.13 0.0 1418 0.0 1419 0.0 1425 152/66 0.0 58 300 26.7 -150 160 20 0.11 : ? 0.16 0.0 1440 145/70 0.0 59 310 31.3 -140 150 10 0.11 : ? 0.18 0.0 1455 163/68 0.0 63 310 36.0 -140 160 5 0.11 : ? 0.22 0.0 1510 153/68 0.0 58 310 40.6 -140 170 10 0.11 : ? 0.25 0.0 1525 148/69 0.0 58 310 45.0 -140 160 10 0.11 : ? 0.27 0.0 1544 153/67 0.0 69 310 50.9 -140 170 10 0.11 : ? 0.31 0.0 1555 145/73 0.0 71 310 54.5 -130 160 15 0.11 : ? 0.31 0.0 1610 154/70 0.0 78 310 58.9 -140 170 10 0.11 : ? 0.36 0.0 1625 162/80 0.0 87 120 63.7 -20 70 25 0.11 : ? 0.38 0.0 1628 0 63.8 40 30 -5 0.00 : ? 0.38 0.0 1419 0.0 Table 2: Dialysate Bath Time DFR ADV Temp K Ca Na HC03 1254 500.00 36.90 2.00 3.00 0.00 0.00 1254 500.00 36.90 2.00 3.00 0.00 0.00 1258 500.00 35.50 2.00 3.00 0.00 0.00 1309 500.00 35.50 2.00 3.00 0.00 0.00 1325 500.00 35.40 2.00 3.00 0.00 0.00 1340 500.00 35.40 2.00 3.00 0.00 0.00 1355 500.00 35.50 2.00 3.00 0.00 0.00 1410 500.00 35.40 2.00 3.00 0.00 0.00 1418 1419 1425 500.00 35.50 2.00 3.00 0.00 0.00 1440 500.00 35.50 2.00 3.00 0.00 0.00 1455 500.00 35.50 2.00 3.00 0.00 0.00 1510 500.00 35.40 2.00 3.00 0.00 0.00 1525 500.00 35.40 2.00 3.00 0.00 0.00 1544 500.00 35.50 2.00 3.00 0.00 0.00 1555 500.00 35.50 2.00 3.00 0.00 0.00 1610 500.00 35.50 2.00 3.00 0.00 0.00 5 500.00 35.50 2.00 3.00 0.00 0.00 1628 500.00 35.50 2.00 3.00 0.00 0.00 1419 Table 3: Patient Assessment Acknowledge Time Author Access Visible Patient Status [ ] YES [x] NO 02-Feb-2024 GRACIELA MACEDO [x] YES [ ] NO Pt resting, lines secured and visible 02-Feb-2024 GRACIELA MACEDO [x] YES [ ] NO Pt resting, lines secured and visible 02-Feb-2024 GRACIELA MACEDO [x] YES [ ] NO Pt resting, lines secured and visible 02-Feb-2024 GRACIELA MACEDO [x] YES [ ] NO Arterial needle adjusted, FAC ENGINEER 160, AP 170, no issues 02-Feb-2024 1351 GRACIELA MACEDO [x] YES [ ] NO Pt resting, lines secured and visible 02-Feb-2024 GRACIELA MACEDO [x] YES [ ] NO Pt resting, lines secured and visible 02-Feb-2024 141 GRACIELA MACEDO [x] YES [ ] NO Pt resting, lines secured and visible 02-Feb-2024 MILO JONAS [ ] YES [x] NO 02-Feb-2024 141 MILO JONAS [ ] YES [x] NO 02-Feb-2024 GRACIELA MACEDO [x] YES [ ] NO Pt resting, lines secured and visible 02-Feb-2024 154 GRACIELA MACEDO [x] YES [ ] NO Pt resting, lines secured and visible 02-Feb-2024 154 GRACIELA MACEDO [x] YES [ ] NO Pt resting, lines secured and visible 02-Feb-2024 1544 GRACIELA MACEDO [x] YES [ ] NO Pt resting, lines secured and visible 02-Feb-2024 154 GRACIELA MACEDO [x] YES [ ] NO Pt resting, lines secured and visible 02-Feb-2024 163GRACIELA LOPEZ [x] YES [ ] NO Pt resting, lines secured and visible 02-Feb-2024 163GRACIELA LOPEZ [x] YES [ ] NO Pt resting, lines secured and visible 02-Feb-2024 163GRACIELA LOPEZ [ ] YES [x] NO Pt resting, lines secured and visible 02-Feb-2024 163GRACIELA LOPEZ [x] YES [ ] NO Pt resting, lines secured and visible [ ] YES [x] NO 02-Feb-2024 141 MILO JONAS [ ] YES [x] NO == Medication Log Medication Log Start Date/Time: 02-Feb-2024 Medication: Time: 1417 Nurse: MILO JONAS local driver: Medication/Blood: IRON SUCROSE 20MG/ML INJ Dosage/Units: 100.00 mg Route: IV PUSH Unused Amount: 0.00 IV Flush(mL): Admin Comments: [id number] Reason Not Given: Medication: Time: 1418 Nurse: MILO JONAS local driver: Medication/Blood: LIDOCAINE 2.5/PRILOCAINE 2.5% CREAM Dosage/Units: Not given Route: Unused Amount: 0.00 IV Flush(mL): Admin Comments: Reason Not Given: Medication: Time: 1418 Nurse: MILO JONAS local driver: Medication/Blood: PARICALCITOL 2MCG/ML SOLN INJ Dosage/Units: 2.00 mcg Route: IV PUSH Unused Amount: 0.00 IV Flush(mL): Admin Comments: [id number] Reason Not Given: == Events Log ==== Time Resolved Complication Comments Author Brigitte Spent [place] Notified Ack 'd Nurse == Postdialysis === Clotted: [ ] YES [x] NO Infiltrated: [ ] YES [x] NO Extra Treatment: [ ] YES [x] NO Procedure: Daily dialysis treatment Stop Date/Time: 02-Feb-2024 Dialysis Time(hrs): 3:34 Staff Off: GRACIELA MACEDO Effective Time(hrs): Resp Caregiver: Departure Time: 1650 By/With: unaccompanied Mode: walking Visit Disposition: Discharged Home (private dwelling, not an institution, no support services) Patient Sent To: Pain Acuity: 0 Type: Location Measures Measures Measures Weights Measured Wt.(kg): 101.50 Prosthesis Wt.(kg): Wheelchair Wt(kg): Post Dialysis Wt(kg): 101.50 Target Weight(kg): 0.00 Target UF(kg): 0.50 Removed Wt(kg): -0.20 Fluid Removed(kg): 0.38 Effective UFR (kg/hr:ml/kg/hr): -0.06 : -0.6 Dialysate Used(L): 107.00 Patient Status Temp(C): 97.50 Resp: 18 Standing BP: 151/74 Standing Pulse: 98 BP: Pulse: Lowest BP: 106/57 BV Processed: Heparin Total Ordered: 0.00 Total Infused: Left in Syringe: Verified At: By: 2nd local driver: By: Fluid Intake Total Ingested(kg): Total HDF Administered(kg): Avg HDF(kg/hr): Hematocrit(%): Hemoglobin(mg/dL): KT/V: Relative Blood Volume(%): Final Effective Ionic Dialysance: Dialyzer Post Dial Rating: Streaked-few f Acid Disinfect: 1639 Chemical Cycle Start At: 1639 Heat Cycle Start At: Patient Condition: 02-Feb-2024 1640 GRACIELA MACEDO Alert & oriented, Treatment tolerated without complication, Discharged ambulatory Nursing Assessment: 02-Feb-2024 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 No complaints post treatment. No signs of distresss. He left stable and steady on his feet. Patient encouraged to continue on a low potassium diet. Acknowledged On: 02-Feb-2024 Acknowledged By: MILO JONAS == Preparation ==== Station: Chair 11 Machine #: C - 13 MACHINE DISINFECTION Acid Cycle: 02-Feb-2024 Heat Cycle: Chemical Cycle: 02-Feb-2024 Disinfect Clear Status: MACHINE CHECKS Original All Steps Completed: [x] YES [ ] NO Alarm Test Complete: 02-Feb-2024 Alarms Audible: 02-Feb-2024 Checked prescription: 02-Feb-2024 Checked conductivity: 02-Feb-2024 Double checked 02-Feb-2024 Patient identified: 02-Feb-2024 prescription: Time Out: 02-Feb-2024 Conductivity: 13.90 Calcium: 3 Dialysate Temperature: 37.00 Potassium: 2 Bicarb: 40 Reading confirmation: 02-Feb-2024 Conductivity: 13.90 pH: 7.10 Replacement All Steps Completed: [x] YES [ ] NO Alarm Test Complete: 02-Feb-2024 Alarms Audible: 02-Feb-2024 Checked prescription: 02-Feb-2024 Checked conductivity: 02-Feb-20248 Double checked 02-Feb-2024 Patient identified: 02-Feb-2024 prescription: Time Out: 02-Feb-2024 Conductivity: 13.90 K+: 2 pH: 7.10 Ca+: 3 Dialysate Temp (C): 37.00 == Material ======= MATERIAL / DIALYZER REUSE Start Machine (#): C - 13 Time Failed: Replacement Machine: Replaced time: Reason: Dialyzer Label: Nico Mcneill - 19H Reprocessed #: Dialyzer Lot: Pre-dialysis Dialyzer Rating: Check 1: 02-Feb-2024 GRACIELA MACEDO Check 2: 02-Feb-20245 MILO JONAS Location: [address] [place] [address]/ MILO MANCIAN GYN RN Signed: 02/02/2024 17:07 MILO JONAS [facility]
--- OUTSIDE RECORDS SUMMARY | 2024-12-05 00:24 | XMS_ITS | Encounter Summary ---
Author Name [facility] [facility] [place] [facility] [place] [facility] [place] Address [address] [place] [address] Care Team Providers Care Assembler Final Name Role Phone ERIKA DEE Primary Care [...] PART A Jul 12, 2019 PART A [id number] PRASANNA KATZ PATIENT MEDICARE (WNR) MEDICARE (M) PART A Jul 12, 2019 PART A [id number] PRASANNA KATZ PATIENT Selected Encounter This section includes the information on record at [place] for the Encounter. Date/Time Encounter Type Encounter Description Reason Provider Source Dec 11, 2023 10:00 AM OFFICE O/P EST MOD 30 MIN RENAL/NEPHROL(EXC EPT DIALYSIS) ICD-10-CM I10 Essential (primary) hypertension CHENG PURCELL IH[facility]ono Encounter Template Text not used by [place] Assessments - Encounter Diagnoses This section includes the primary and secondary diagnoses documented for the Encounter. Date/Time Primary/Secondary Diagnosis Diagnosis Name Provider Source Dec 11, 2023 03:00 PM PRIMARY Essential (primary) hypertension CHENG PURCELL [facility] Dec 11, 2023 03:00 PM SECONDARY Chronic kidney disease, stage 5 CHENG PURCELL [facility] Dec 11, 2023 03:00 PM SECONDARY Hyperkalemia CHENG PURCELL [facility] Dec 11, 2023 03:00 PM SECONDARY Hypomagnesemia CHENG PURCELL [facility] Dec 11, 2023 03:00 PM SECONDARY Mixed disorder of acid-base balance CHENG PURCELL [facility] Dec 11, 2023 03:00 PM SECONDARY Secondary hyperparathyroidism of renal origin CHENG PURCELL [facility] Plan of Treatment: Future Appointments (+ 6 months) and Future Tests (+/- 45 days) The Plan of Treatment section includes future care activities for the patient from all [facility]. This section includes future appointments and future orders which are active, pending or scheduled. Future Appointments This section includes appointments that were scheduled to occur 6 months from the date of the Encounter, up to a maximum of 20 appointments. The data comes from all [facility]. Appointment Date/Time Appointment Type Appointme nt Facility Name Dec 18, 2023 11:00 AM AMBULATORY - SURGERY [facility] Jan 07, 2024 04:48 PM AMBULATORY - MEDICINE [facility] Jan 12, 2024 10:30 AM AMBULATORY - MEDICINE [facility] Jan 21, 2024 12:30 PM AMBULATORY - MEDICINE [facility] Jan 23, 2024 12:30 PM AMBULATORY - MEDICINE [facility] Jan 25, 2024 02:30 PM AMBULATORY - MEDICINE [facility] Jan 26, 2024 12:30 PM AMBULATORY - MEDICINE [facility] Jan 28, 2024 12:30 PM AMBULATORY - MEDICINE [facility] Feb 02, 2024 12:30 PM AMBULATORY - MEDICINE [facility] Feb 04, 2024 12:15 PM AMBULATORY - MEDICINE [facility] Feb 06, 2024 12:30 PM AMBULATORY - MEDICINE [facility] Feb 09, 2024 12:30 PM AMBULATORY - MEDICINE [facility] February 11, 2024 12:30 PM AMBULATORY - MEDICINE [facility] February 13, 2024 12:30 PM AMBULATORY - MEDICINE [facility] February 15, 2024 08:00 AM AMBULATORY - NONE [facility] February 15, 2024 08:30 AM AMBULATORY - MEDICINE [facility] Apr 05, 2024 09:30 AM AMBULATORY - MEDICINE [facility] Apr 27, 2024 07:30 AM AMBULATORY - SURGERY [facility] May 02, 2024 08:00 AM AMBULATORY - NONE [facility] May 02, 2024 08:30 AM AMBULATORY - MEDICINE [facility] Lab Results: +/- 30 days of [...] - Unit Interpretation Reference Range Comment Jan 10, 2024 08:19 PM [facility] GLUCOSE,BLOOD-poct (STL) Specimen Type: BLOOD Comment: Test Performed by: [id number] Meter #: [id number] Ordering Provider: LIDIA HUYNH Report Released Date/Time: Jan 10, 2024 08:31 PM Reporting Lab: [facility] [address] [facility] [address] Performing Lab: [place] [id number] [facility] [address] GLUCOSE,BLOOD- poct (STL) 153 mg/dL H 72-99 Jan 10, 2024 04:15 PM [facility] GLUCOSE,BLOOD-poct (STL) Specimen Type: BLOOD Comment: Test Performed by: [id number] Meter #: [id number] Ordering Provider: LIDIA HUYNH Report Released Date/Time: Jan 10, 2024 05:05 PM Reporting Lab: [place] [address] [facility] [address] Performing Lab: [place] [address] [facility] [address] GLUCOSE,BLOOD- poct (STL) 84 mg/dL 72-99 Jan 10, 2024 11:31 AM [facility] GLUCOSE,BLOOD-poct (STL) Specimen Type: BLOOD Comment: Test Performed by: [id number] Meter #: [id number] Ordering Provider: LIDIA HUYNH Report Released Date/Time: Jan 10, 2024 12:03 PM Reporting Lab: [place] [address] [facility] [address] Performing Lab: [place] [address] [facility] [address] GLUCOSE,BLOOD- poct (STL) 99 mg/dL 72-99 Jan 10, 2024 04:45 AM [facility] GLUCOSE,BLOOD-poct (STL) Specimen Type: BLOOD Comment: Test Performed by: [id number] Meter #: [id number] Ordering Provider: LIDIA HUYNH Report Released Date/Time: Jan 10, 2024 05:29 AM Reporting Lab: [address] [address] Performing Lab: [address] [address] GLUCOSE,BLOOD- poct (STL) 109 mg/dL H 72-99 Jan 09, 2024 08:08 PM [facility] GLUCOSE,BLOOD-poct (STL) Specimen Type: BLOOD Comment: Test Performed by: [id number] Meter #: [id number] Ordering Provider: LIDIA HUYNH Report Released Date/Time: Jan 09, 2024 08:28 PM Reporting Lab: [place] [address] [facility] [address] Performing Lab: [facility] [address] [facility] [address] GLUCOSE,BLOOD- poct (STL) 110 mg/dL H 72-99 Jan 09, 2024 04:19 PM [facility] GLUCOSE,BLOOD-poct (STL) Specimen Type: BLOOD Comment: Test Performed by: [id number] Meter #: [id number] Ordering Provider: LIDIA HUYNH Report Released Date/Time: Jan 09, 2024 04:34 PM Reporting Lab: [address] [address] Performing Lab: [address] [address] GLUCOSE,BLOOD- poct (STL) 119 mg/dL H 72-99 Jan 09, 2024 02:30 PM [facility] MAGNESIUM Specimen Type: PLASMA Comment: No hemolysis noted. Ordering Provider: TATI ZAVALA Report Released Date/Time: Jan 09, 2024 07:51 AM Reporting Lab: [address] [address] Performing Lab: [address] [address] MAGNESIUM 1.6 mg/dL 1.6-2.6 Jan 09, 2024 02:30 PM [facility] RENAL PANEL Specimen Type: PLASMA Comment: No hemolysis noted. Ordering Provider: TATI ZAVALA Report Released Date/Time: Jan 09, 2024 07:51 AM Reporting Lab: [address] [address] Performing Lab: [address] [address] CREATININE 5.13 mg/dL H 0.7-1.3 UREA NITROGEN 46.2 mg/dL H 9.0-25.0 GLUCOSE 177 mg/dL H 72-99 SODIUM 136 meq/L 136-145 POTASSIUM 4.0 meq/L 3.5-5 CHLORIDE 101 meq/L 98-107 CARBON DIOXIDE 23 meq/L 22-31 CALCIUM 8.6 mg/dL 8.4-10.4 PHOSPHOROUS 2.7 mg/dL 2.3-4.7 ALBUMIN 3.6 g/dL 3.4-5 EGFR (CKD-EPI 2020) 11.5 LL >60 Jan 09, 2024 12:27 PM [facility] GLUCOSE,BLOOD-poct (STL) Specimen Type: BLOOD Comment: Test Performed by: [id number] Meter #: [id number] Ordering Provider: LINO,MED Report Released Date/Time: Jan 09, 2024 12:38 PM Reporting Lab: [address] [address] Performing Lab: [address] [address] GLUCOSE,BLOOD- poct (STL) 98 mg/dL 72-99 Jan 09, 2024 07:15 AM [facility] GLUCOSE,BLOOD-poct (STL) Specimen Type: BLOOD Comment: Test Performed by: [id number] Meter #: [id number] Ordering Provider: LINO,MED Report Released Date/Time: Jan 09, 2024 07:58 AM Reporting Lab: [address] [address] Performing Lab: [address] [address] GLUCOSE,BLOOD- poct (STL) 86 mg/dL 72-99 Jan 08, 2024 09:04 PM [facility] GLUCOSE,BLOOD-poct (STL) Specimen Type: BLOOD Comment: Test Performed by: [id number] Meter #: [id number] Ordering Provider: LINOMED Report Released Date/Time: Jan 08, 2024 09:47 PM Reporting Lab: [address] [address] Performing Lab: [address] [address] GLUCOSE,BLOOD- poct (STL) 90 mg/dL 72-99 Jan 08, 2024 09:01 PM [facility] HEP B CORE AB TOTAL. (STL) Specimen Type: SERUM No comment entered. Ordering Provider: EFREN TAYLOR Report Released Date/Time: Jan 08, 2024 02:35 PM Reporting Lab: [place] [phone] Performing Lab: [place] [phone] HEP B CORE AB TOTAL. (STL) Nonreactive Nonreactive Jan 08, 2024 09:01 PM [facility] HEP HB S Ag (AUSRIA) (STL) Specimen Type: SERUM No comment entered. Ordering Provider: EFREN TAYLOR Report Released Date/Time: Jan 08, 2024 02:35 PM Reporting Lab: [place] [phone] Performing Lab: [place] [address] HEP HB S Ag (A[place]RIA) (STL) Nonreactive Nonreactive Jan 08, 2024 09:01 PM [facility] HEPATITIS B SURFACE AB PNL Specimen Type: SERUM No comment entered. Ordering Provider: EFREN TAYLOR Report Released Date/Time: Jan 08, 2024 02:35 PM Reporting Lab: [place] [address] Performing Lab: [place] [address] HEP B Surface Ab-HBsAB (STL) REACTIVE m[IU]/mL Nonreactive HEP Bs AB-QUANT (L) 63.22 m[IU]/mL Jan 08, 2024 04:47 PM [facility] GLUCOSE,BLOOD-poct (STL) Specimen Type: BLOOD Comment: Test Performed by: [id number] Meter #: [id number] Ordering Provider: LIDIA HUYNH Report Released Date/Time: Jan 08, 2024 05:09 PM Reporting Lab: [address] Performing Lab: [facility] [address] [facility] [address] GLUCOSE,BLOOD- poct (STL) 95 mg/dL 72-99 Jan 08, 2024 11:26 AM [facility] GLUCOSE,BLOOD-poct (STL) Specimen Type: BLOOD Comment: Test Performed by: [id number] Meter #: [id number] Ordering Provider: LIDIA HUYNH Report Released Date/Time: Jan 08, 2024 11:37 AM Reporting Lab: [place] [address] [facility] [address] Performing Lab: [place] [address] [facility] [address] GLUCOSE,BLOOD- poct (STL) 105 mg/dL H 72-99 Jan 08, 2024 07:01 AM [facility] RENAL PANEL Specimen Type: PLASMA Comment: No hemolysis noted. Ordering Provider: LIZETTE GRIFFIN Report Released Date/Time: Jan 07, 2024 11:24 PM Reporting Lab: [place] [address] [address] [facility] [address] Performing Lab: [place] [address] [facility] [address] CREATININE 8.50 mg/dL H 0.7-1.3 UREA NITROGEN 88.2 mg/dL H 9.0-25.0 GLUCOSE 70 mg/dL L 72-99 SODIUM 139 meq/L 136-145 POTASSIUM 5.4 meq/L H 3.5-5 CHLORIDE 110 meq/L H 98-107 CARBON DIOXIDE 19 meq/L L 22-31 CALCIUM 9.4 mg/dL 8.4-10.4 PHOSPHOROUS 5.1 mg/dL H 2.3-4.7 ALBUMIN 3.8 g/dL 3.4-5 EGFR (CKD-EPI 2020) 6.3 LL >60 Jan 08, 2024 06:37 AM [facility] GLUCOSE,BLOOD-poct (STL) Specimen Type: BLOOD Comment: Test Performed by: [id number] Meter #: [id number] Ordering Provider: LIDIA HUYNH Report Released Date/Time: Jan 08, 2024 06:48 AM Reporting Lab: [address] [address] Performing Lab: [address] [address] GLUCOSE,BLOOD- poct (STL) 86 mg/dL 72-99 Jan 07, 2024 11:58 PM [facility] RENAL PANEL Specimen Type: PLASMA Comment: No hemolysis noted. Ordering Provider: LIZETTE GRIFFIN Report Released Date/Time: Jan 07, 2024 11:38 PM Reporting Lab: [address] [address] Performing Lab: [address] [address] CREATININE 8.68 mg/dL H 0.7-1.3 UREA NITROGEN 92.6 mg/dL H 9.0-25.0 GLUCOSE 143 mg/dL H 72-99 SODIUM 138 meq/L 136-145 POTASSIUM 5.0 meq/L 3.5-5 CHLORIDE 111 meq/L H 98-107 CARBON DIOXIDE 17 meq/L L 22-31 CALCIUM 8.8 mg/dL 8.4-10.4 PHOSPHOROUS 3.8 mg/dL 2.3-4.7 ALBUMIN 3.8 g/dL 3.4-5 EGFR (CKD-EPI 2020) 6.1 LL >60 Jan 07, 2024 11:36 PM [facility] GLUCOSE,BLOOD-poct (STL) Specimen Type: BLOOD Comment: Test Performed by: [id number] Meter #: [id number] Ordering Provider: LIDIA MOSCOSO Report Released Date/Time: Jan 07, 2024 11:47 PM Reporting Lab: [address] [address] Performing Lab: [address] [address] GLUCOSE,BLOOD- poct (STL) 157 mg/dL H 72-99 Jan 07, 2024 11:30 PM [facility] MRSA SURVL NARES DNA Specimen Type: [...] 07, 2024 11:24 PM Reporting Lab: [facility] [address] [facility] [address] Performing Lab: [facility] [address] [place] [phone] MRSA SURVL NARES DNA Negative Negative Jan 07, 2024 09:08 PM [facility] POTASSIUM Specimen Type: PLASMA Comment: No hemolysis noted. Ordering Provider: ANNA CALI Report Released Date/Time: Jan 07, 2024 08:38 PM Reporting Lab: [facility] [address] [facility] [address] Performing Lab: [facility] [address] [place] [address] POTASSIUM 5.7 meq/L H 3.5-5 Jan 07, 2024 07:30 PM [facility] URINALYSIS (STL-PB) Specimen Type: URINE No comment entered. Ordering Provider: ANNA CALI Report Released Date/Time: Jan 07, 2024 05:18 PM Reporting Lab: [facility] [address] [facility] [address] Performing Lab: [facility] [address] [place] [phone] URINE COLOR Colorless Yellow U.BILIRUBIN Negative mg/dL [...] 1.015 1.005-1.029 Jan 07, 2024 05:30 PM [facility] BRAIN NATRIURETIC PEPTIDE Specimen Type: PLASMA No comment entered. Ordering Provider: GRACIELA MANN Report Released Date/Time: Jan 07, 2024 04:59 PM Reporting Lab: [address] [address] Performing Lab: [address] [address] BRAIN NATRIURETIC PEPTIDE 59.0 pg/mL 0-100 Jan 07, 2024 05:30 PM [facility] COVID-19 DIAGNOSTIC (FLU/RSV)([facility]) Specimen Type: NASOPHARYNX Comment: Qualitative real-time PCR [...] 07, 2024 04:59 PM Reporting Lab: [address] [address] Performing Lab: [address] [address] INFLUENZA A Negative Negative INFLUENZA B Negative Negative COVID-19 (STL-PB) Not Detected Not Detected RSV (Cepheid) NEGATIVE Negative Jan 07, 2024 05:30 PM [facility] COMPREHENSIVE METABOLIC PANEL Specimen Type: PLASMA Comment: Aspartate Transaminase result may show positive bias due to hemolysis. K result canceled due to hemolysis. Specimen moderately hemolyzed. K cancelled due to moderate hemolysis. Called to : Phillip Cee RN at: 1902 on: 01/07/2024 by: [place]LE Ordering Provider: GRACIELA MANN Report Released Date/Time: Jan 07, 2024 04:59 PM Reporting Lab: [address] [address] Performing Lab: [address] [address] CREATININE 8.88 mg/dL H 0.7-1.3 UREA NITROGEN [...] LL >60 Jan 07, 2024 05:30 PM [facility] CBC Specimen Type: BLOOD No comment entered. Ordering Provider: GRACIELA MANN Report Released Date/Time: Jan 07, 2024 04:59 PM Reporting Lab: [address] [address] Performing Lab: [address] [address] WBC 9.2 10*3/uL 3.6-11.2 RBC 3.81 10*6/uL [...] 10*3/uL 0.00-0.20 Dec 11, 2023 12:02 PM [facility] PTH, INTACT (STL) Specimen Type: SERUM No comment entered. Ordering Provider: KYLER PURCELL Report Released Date/Time: Dec 10, 2023 03:57 PM Reporting Lab: [address] [address] Performing Lab: [address] [address] PTH, INTACT (STL) 527.70 pg/mL H 8.7-77.7 Dec 11, 2023 12:02 PM [facility] RENAL PANEL Specimen Type: PLASMA Comment: No hemolysis noted. Ordering Provider: KYLER PURCELL Report Released Date/Time: Dec 10, 2023 03:57 PM Reporting Lab: [address] [address] Performing Lab: [address] [address] CREATININE 8.13 mg/dL H 0.7-1.3 UREA NITROGEN 69.9 mg/dL H 9.0-25.0 GLUCOSE 163 mg/dL H 72-99 SODIUM 140 meq/L 136-145 POTASSIUM 5.4 meq/L H 3.5-5 CHLORIDE 106 meq/L 98-107 CARBON DIOXIDE 22 meq/L 22-31 CALCIUM 8.6 mg/dL 8.4-10.4 PHOSPHOROUS 3.7 mg/dL 2.3-4.7 ALBUMIN 3.9 g/dL 3.4-5 EGFR (CKD-EPI 2020) 6.6 LL >60 Dec 11, 2023 12:02 PM [facility] CBC Specimen Type: BLOOD No comment entered. Ordering Provider: KYLER PURCELL Report Released Date/Time: Dec 10, 2023 03:57 PM Reporting Lab: [address] [address] Performing Lab: [address] [address] WBC 8.4 10*3/uL 3.6-11.2 RBC 3.84 10*6/uL [...] 10*3/uL 0.00-0.20 Dec 11, 2023 12:02 PM [facility] MAGNESIUM Specimen Type: PLASMA No comment entered. Ordering Provider: KYLER PURCELL Report Released Date/Time: Dec 11, 2023 10:17 AM Reporting Lab: [address] [address] Performing Lab: [address] [address] MAGNESIUM 1.3 mg/dL L 1.6-2.6 Nov 16, 2023 04:49 PM [facility] LIPID PANEL (STL) Specimen Type: PLASMA No comment entered. Ordering Provider: BLU MARTE Report Released Date/Time: Nov 16, 2023 01:09 PM Reporting Lab: [address] [address] Performing Lab: [address] [address] CHOLESTEROL 135 mg/dL 0-200 TRIGLYCERIDE 191 mg/dL H 0-150 CALCULATED LDL 73 mg/dL HDL(New) 24 mg/dL L >40 Nov 16, 2023 04:49 PM [facility] HGA1C Specimen Type: BLOOD No comment entered. Ordering Provider: BLU MARTE Report Released Date/Time: Nov 16, 2023 01:09 PM Reporting Lab: [place] [address] [facility] [address] Performing Lab: [address] [address] HGA1C 6.0 4.0-6.0 Vital Signs: All taken on the encounter date This section contains inpatient and outpatient Vital Signs collected on the date of the Encounter. Date/Time Temperature Pulse Blood Pressure Respiratory Rate SP02 Pain Height Weight Body Mass Index Source Dec 11, 2023 10:07 AM 97.4 74 119/71 20 98 0 228.9 34 [facility] Social History: Smoking Status (Most current) and Tobacco Use (All prior to encounter date) This section includes the most current, and the historical, smoking and tobacco- related health factors from the [place] facility where the Encounter took place. Current Smoking Status This section includes the most current smoking, or tobacco-related health factor, from the [place] facility where the Encounter took place. Date/Time Current Smoking Status Comment Facil ity Jun 21, 2023 01:14 PM [facility]YX ADMIT TOBACCO SCREEN NO [facility] Tobacco Use History This section includes a history of the smoking, or tobacco-related health factors, that were collected on or before the date of the Encounter. The data comes from the [place] facility where the Encounter took place. Date/Time Smoking Status/Tobacco Use Comment F acility Dec 12, 2022 04:00 PM ORYX ADMIT TOBACCO SCREEN NO [facility] Jun 25, 2022 03:24 PM VA-TOBACCO FORMER USER [facility] Jun 25, 2022 03:24 PM VA-TOBACCO QUIT 15 YRS OR MORE [facility] Dec 23, 2021 04:59 PM ORYX ADMIT TOBACCO SCREEN REFUSED [facility] May 24, 2020 11:27 PM ORYX ADMIT TOBACCO SCREEN NO [facility] Dec 12, 2019 10:24 AM VA-TOBACCO FORMER USER [facility] Dec 12, 2019 10:24 AM VA-TOBACCO QUIT 15 YRS OR MORE [facility] Aug 03, 2019 02:11 AM [facility]YX ADMIT TOBACCO SCREEN REFUSED [facility] Oct 12, 2018 01:14 AM QUIT TOBACCO >7 YEARS AGO [facility] Oct 11, 2018 03:33 PM ORYX ADMIT TOBACCO SCREEN NO [facility] Sep 07, 2018 09:13 PM ORYX ADMIT TOBACCO SCREEN NO [facility] Sep 07, 2018 07:52 PM QUIT TOBACCO >7 YEARS AGO [facility] Advance Directives: All historical and current Section Date Range: From patient's date of to the date document was created. This section includes ALL of a patient's completed or amended [place] Advance and Rescinded Directives. The entries below indicate that a directive exists for the patient, but an actual copy is not included with this document. The data comes from all [place] facilities. Date Advance Directives Provider Source Dec 17, 2022 ADVANCE DIRECTIVE BIJAN MERRITT [facility] Feb 09, 2020 ADVANCE DIRECTIVE DISCUSSION MELY LUCIANO [facility] Feb 02, 2018 ADVANCE DIRECTIVE BEAU ALTAMIRANO [facility] Nov 29, 2006 ADVANCE DIRECTIVE MARELY CHACON [facility] Radiology Reports: +/- 30 days of [...] the Encounter. The data comes from all [place] treatment facilities. Date/Time Radiology Report Provider Source Jan 07, 2024 08:01 PM CHEST PORTABLE: NAGI KATZ [id number] -[id number] M Exm Date: JAN 07, 2024@20:01 Req Phys: ANNA CALI Pat Loc: -EMERGENCY DEPT 3RD SHIFT (R Img Loc: -MAIN RADIOLOGY SUITE Service: Unknown (Case [id number] COMPLETE) CHEST PORTABLE (RAD Detailed) CPT:29285 Proc Modifiers : Portable Reason for Study: weakness, ESRD Clinical History: Report Status: Verified Date Reported: JAN 07, 2024 Date Verified: JAN 07, 2024 Counsel E-Sig: Report: CHEST PORTABLE HISTORY: weakness, ESRD COMPARISON: July 26, 2023 TECHNIQUE: One view of the chest was performed at the local [facility] facility. images were received by the [place] National Teleradiology Program (NTP) for interpretation. FINDINGS: Bilateral peribronchial thickening. Patchy bilateral lower lobe lung opacities. Mildly tortuous aorta. No acute bony abnormalities. Impression: 1. Bilateral peribronchial thickening. 2. Patchy bilateral lung opacities likely represent atelectasis. 3. No pneumothorax. READING PHYSICIAN: Madhu Patton M.D. -[id number] 01/07/2024 19:10 PDT [facility] National Teleradiology Program [phone] (For Medical Practitioner Use Only) Attention Patients / Veterans: If you have questions or concerns about these test results, please contact your ordering provider or primary care team. Primary Interpreting Staff: RADIOLOGY,OUTSIDE SERVICE, Staff Physician / RADIOLOGY,OUTSIDE SERVICE [facility] Encounter Notes: All associated encounter notes This section contains the clinical notes associated to the Encounter. Date/Time Encounter Note(s) Provider Source Dec 11, 2023 10:12 AM NEPHROLOGY OUTPATIENT NOTE: LOCAL TITLE: NEPHROLOGY OUTPATIENT FOLLOW UP ST STANDARD TITLE: NEPHROLOGY OUTPATIENT NOTE DATE OF NOTE: DEC 11, 2023@10:12 ENTRY DATE: DEC 11, 2023@10:12:46 AUTHOR: MARTHA PURCELL EXP COSIGNER: URGENCY: STATUS: COMPLETED Subjective: 68 yo with pmhx of HTN, DM, HLD, gout, flip, chronic a fib and trigger finger and ckd 5 seen in renal clinic. Last renal clinic appt was Aug 31. He denied chest pain, sob, nausea, vomiting, urinary urgency or frequency or painful urination. He was at [facility] for transplant eval with his donor few weeks ago. The determination for being on tranplant list should have been made last week but he is yet to hear from [facility]. He is hoping never to be on dialysis and be transplanted before it gets to that. I called transplant cord here while patient was with me in clinic who said she will reach out to [facility]. Patient also considering being listed at [place], he is awaiting cardiology to switch him from apixaban to warfarin for afib, transplant cord said she will reach out to cardiology to schedule a visit. I discussed the importance of renal diet and good hydration. He has history of hyperkalemia, said he had some potato wedges lately and he was advised to avoid foods high in potassium He took insulin this morning without eating- I reiterated importance of eating with insulin, risk associated with hypoglycemia was also discussed. He voiced understanding of instruction. Home bp log systolic in the 120s-130s Home bs log 90s-120s PROBLEM LIST: 1) Type II diabetes mellitus uncontrolled 2) [...] disease 20) Superficial incisional surgical site infection ROS none significant except as stated above Outpatient Medications: Active Outpatient Medications (including Supplies): Active Outpatient Medications Status ========= 1) APIXABAN 5MG TAB TAKE ONE TABLET BY MOUTH TWICE A DAY ACTIVE FOR ANTICOAGULATION 2) ATORVASTATIN CALCIUM 80MG TAB TAKE ONE TABLET BY ACTIVE (S) MOUTH EVERY EVENING FOR CHOLESTEROL. REPORT ANY UNEXPLAINED MUSCLE PAIN/WEAKNESS TO PROVIDER. 3) CALCITRIOL 0.5MCG CAP TAKE ONE CAPSULE BY MOUTH ONCE ACTIVE A DAY 4) CARBOXYMETHYLCELLULOSE NA 0.5% OPH SOLN INSTILL 1 ACTIVE DROP IN BOTH EYES FOUR TIMES A DAY NEEDED FOR DRY EYE(S) 5) CARVEDILOL 25MG TAB TAKE ONE TABLET BY MOUTH TWICE A ACTIVE DAY FOR HIGH BLOOD PRESSURE TAKE WITH FOOD. 6) EYELID CLEANSER,EYE SCRUB PAD USE/APPLY PAD BOTH EYES ACTIVE ONCE A DAY FOR EYELID HYGIENE FOR EXTERNAL USE ONLY. REMOVE CONTACT LENSES PRIOR TO USE. USE ON UPPER AND LOWER EYELIDS. DO NOT TOUCH EYES DIRECTLY 7) FEBUXOSTAT 80MG TAB TAKE ONE-HALF TABLET BY MOUTH ACTIVE ONCE A DAY FOR HYPERURICEMIA 8) GABAPENTIN 300MG CAP TAKE ONE CAPSULE BY MOUTH AT ACTIVE BEDTIME NEEDED FOR NERVE PAIN 9) INSULIN SYRINGE 0.5ML 30G 12MM USE 1 SYRINGE UNDER ACTIVE THE SKIN ONCE A DAY TO USE WITH INSULIN 10) INSULIN,ASPART(EQV-NOVLG)100UN/M L FLXPEN INJECT 10 ACTIVE UNITS UNDER THE SKIN TWO TIMES A DAY BEFORE MEALS FOR BLOOD SUGAR CONTROL. ADMINISTER 10 MINUTES BEFORE FOOD DIRECTED. REFRIGERATE UN-OPENED PENS. DISCARD CARTRIDGE 28 DAYS AFTER OPENING. 11) INSULIN,GLARGINE-YFGN 100UNIT/ML INJ INJECT 16 UNITS ACTIVE UNDER THE SKIN ONCE A DAY TO CONTROL BLOOD SUGAR. ADMINISTER AT SAME TIME EACH DAY DIRECTED. DISCARD ANY VIAL 28 DAYS AFTER OPENING. 12) KETOTIFEN 0.025% OPH SOLN INSTILL 1 DROP IN BOTH EYES ACTIVE TWICE A DAY FOR ITCH 13) MAGNESIUM OXIDE 400MG TAB TAKE ONE TABLET BY MOUTH ACTIVE (S) ONCE A DAY 14) NIFEDIPINE (EQV-CC) 90MG SA TAB TAKE ONE TABLET BY ACTIVE MOUTH ONCE A DAY FOR HEART/BLOOD PRESSURE. PREFERABLE TO TAKE ON EMPTY STOMACH. SWALLOW WHOLE; DO NOT CRUSH OR CHEW. AVOID GRAPEFRUIT JUICE. 15) OMEPRAZOLE 20MG EC CAP TAKE ONE CAPSULE BY MOUTH ACTIVE EVERY MORNING BEFORE A MEAL TO LOWER STOMACH ACID. TAKE 30 MINUTES PRIOR TO FOOD. 16) SEMAGLUTIDE 1MG/0.75ML INJ PEN 3ML INJECT 1MG UNDER ACTIVE THE SKIN EVERY WEEK FOR DIABETES 17) SODIUM BICARBONATE 650MG TAB TAKE TWO TABLETS BY ACTIVE MOUTH THREE TIMES A DAY FOR STOMACH ACID LOWERING medication reviewed with in clinic Physical exam: Temperature: 97.4 F [36.3 C] (12/11/2023 10:07) Blood Pressure: 119/71 (12/11/2023 10:07) Pulse: 74 (12/11/2023 10:07) Respirations: 20 (12/11/2023 10:07) O2 Saturation: 98% (12/11/2023 10:07) Weight: 228.9 lb [103.83 kg] (12/11/2023 10:07) Height: 69 in [175.3 cm] (11/16/2023 12:36) General:69 MALENOT OR NAD, WNWD HEENT: sclera anicteric NECK: Supple, no thyromegaly LUNGS: CTAB, regular unlabored CV: RRR, S1 S2, no S3 S4 or murmurs ABD: round/non distended, +BS EXT: no edema, left upper arm fistula with +thrill and bruit. 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 Lab Data: CBC: WBC 8.4 10*3/uL 12/11/2023 12:02 RBC 3.84 L 10*6/uL 12/11/2023 12:02 HGB 11.4 L g/dL 12/11/2023 12:02 HCT 35.7 L % 12/11/2023 12:02 MCV 93.0 fL 12/11/2023 12:02 MCH 29.7 pg 12/11/2023 12:02 MCHC 31.9 L g/dL 12/11/2023 12:02 RDW 13.5 % 12/11/2023 12:02 PLT 302 10*3/uL 12/11/2023 12:02 MPV 11.1 fL 12/11/2023 12:02 NEUTROPHILS, AUTO % 73 % 12/11/2023 12:02 LYMPHOCYTES, AUTO % 17 % 12/11/2023 12:02 MONOCYTES, AUTO % 5 % 12/11/2023 12:02 EOSINOPHILS, AUTO % 3 % 12/11/2023 12:02 BASOPHILS, AUTO % 0 % 12/11/2023 12:02 IMMATURE GRANS, AUTO % 0.4 % 06/18/2022 12:10 NEUTROPHILS, ABSOLUTE 6.13 10*3/uL 12/11/2023 12:02 LYMPHOCYTES, ABSOLUTE 1.43 10*3/uL 12/11/2023 12:02 MONOCYTES, ABSOLUTE 0.43 10*3/uL 12/11/2023 12:02 EOSINOPHILS, ABSOLUTE 0.25 10*3/uL 12/11/2023 12:02 BASOPHILS, ABSOLUTE 0.03 10*3/uL 12/11/2023 12:02 IMMATURE GRANS, AUTO ABS 0.03 10*3/uL 06/18/2022 12:10 Renal Function Panel: SODIUM 140 mEq/L 12/11/2023 12:02 POTASSIUM 5.4 H mEq/L 12/11/2023 12:02 CHLORIDE 106 mEq/L 12/11/2023 12:02 UREA NITROGEN 69.9 H mg/dL 12/11/2023 12:02 CREATININE 8.13 H mg/dL 12/11/2023 12:02 CALCIUM 8.6 mg/dL 12/11/2023 12:02 EGFR (DISCONTINUED 01/09/22) 18.1 12/24/2021 20:00 CARBON DIOXIDE 22 mEq/L 12/11/2023 12:02 GLUCOSE 163 H mg/dL 12/11/2023 12:02 EGFR (CKD-EPI 2020) 6.6 L* 12/11/2023 12:02 ALBUMIN 3.9 g/dL 12/11/2023 12:02 PHOSPHOROUS 3.7 mg/dL 12/11/2023 12:02 Intact PTH: VITAMIN D, 25-HYDROXY 46.8 ng/mL 08/31/2023 16:36 Anemia Labs: IRON 55 L ug/dL 06/18/2022 12:10 IRON SATURATION 22 %SAT 06/18/2022 12:10 TIBC 255 ug/dL 06/18/2022 12:10 0 FERRITIN 69.83 ng/mL 06/18/2022 12:10 Urine Studies: URINE COLOR Colorless 06/22/2023 09:46 APPEARANCE Clear 06/22/2023 09:46 U.PH 6.5 06/22/2023 09:46 U.BILIRUBIN Negative mg/dL 06/22/2023 09:46 U.NITRITE Negative mg/dL 06/22/2023 09:46 URINE RBC/HPF 3 /HPF 06/22/2023 09:46 URINE WBC/HPF <1 /HPF 06/22/2023 09:46 BACTERIA RARE /HPF 06/22/2023 09:46 SQUAMOUS EPITH. <1 /HPF 07/15/2022 12:23 MUCUS RARE /LPF 07/15/2022 12:23 CREATuF: 57.4 (06/21/23 19:45) M/CREAT: comment (10/21/22 10:42) MICRAL: >500.0 (10/21/22 10:42) PRO/CR: 1.9 (10/21/22 10:42) Assessment/Recommendations CKD Stage 5- likely from DM-2/HTN, vascular disease, and proteinuria pro/creat 1.9 creat 8.13 today, no uremic symptoms, said he feels very well. No urgent need for dialysis initiation. 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[employer], fistula in place maturing, and was okayed by surgery to use for HD Education provided on steps to maintain fistula health educated on s/s of uremia and to report to ED if he has symptoms will continue holding arb due to hyperkalemia continue statin for cardiorenal protection continue good hydration 6-8 glasses of water/day continue keeping bp and bs within normal limits hgbaic 6.0 at goal hep b completed, hep b ab reactive #HTN/Edema - bp at goal, no edema continue nifedipine 90mg and carvedilol 25mg bid continue salt restriction continue home bp log #hyperkalemia k 5.4 acknowledged eating foods high in potassium which he was asked to avoid will repeat lab next week and restart potassium binder if level not at goal #hypomagnesemia mag 1.3 acknowledged taking mag oxide 400mg daily, dose increased to bid #Secondary hyperparathyroidism of renal disease- ipth 527 acknowledged taking calcitriol 0.5mcg daily, will increase dose to 1mcg daily. alb 3.9, ca 8.6, phos 3.7 at goal. #Acid-Base - bicarb 22 at goal will continue sodium bicarb 2 tabs po tid #Anemia hgb 11.4 at goal #Access planning- 's preferred safety trainer modality is HD, avf placed in Nov, duplex ultrasound done April 07, saw vasc surg Sep 17 and fistula okay for use. Will initiate patient to HD when indicated, considering doing HD 2days/week, complaint analyst dr. Trejo notified. Patient willing to come to [place] for HD when indicated. #Transplant work up ongoing at [facility] and [place] for kidney transplant. rtc in January with dr. Trejo. kelly. Patient was discussed with Nephrology Attending, Dr. Trejo. /edwar/ KIMBERLY PURCELL APRN HYDRANT SETTER- NURSE PRACTITIONER Signed: 12/11/2023 15:00 Receipt Acknowledged By: 12/13/2023 21:12 /edwar/ MERY TREJO MD STAFF PHYSICIAN,NEPHROLOGY KYLER PURCELL [facility]
--- OUTSIDE RECORDS SUMMARY | 2024-12-05 00:24 | XMS_ITS | Encounter Summary ---
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 Date/Time Encounter Type Encounter Description Reason Pro vider Source Feb 02, 2024 04:41 PM Outpatient Encounter COMMUNITY CARE CONSULT IHE [...] 20 appointments. The data comes from all [place] treatment facilities. Appointment Date/Time Appointment Type Appointme nt Facility Name Feb 04, 2024 12:15 PM AMBULATORY - MEDICINE [facility] Feb 06, 2024 12:30 PM AMBULATORY - MEDICINE [facility] Feb 09, 2024 12:30 PM AMBULATORY - MEDICINE [facility] February 11, 2024 12:30 PM AMBULATORY - MEDICINE [facility] February 13, 2024 12:30 PM AMBULATORY - MEDICINE [facility] February 15, 2024 08:00 AM AMBULATORY - NONE [facility] February 15, 2024 08:30 AM AMBULATORY - MEDICINE [facility] Apr 05, 2024 09:30 AM AMBULATORY - MEDICINE [facility] Apr 27, 2024 07:30 AM AMBULATORY - SURGERY [facility] May 02, 2024 08:00 AM AMBULATORY - NONE [facility] May 02, 2024 08:30 AM AMBULATORY - MEDICINE [facility] May 16, 2024 02:00 PM AMBULATORY - MEDICINE [facility] Jul 12, 2024 08:00 AM AMBULATORY - NONE [facility] Jul 12, 2024 08:30 AM AMBULATORY - MEDICINE [facility] Lab Results: +/- 30 days of the encounter This section includes the Chemistry and Hematology Lab Results on record with [place] for the patient. Radiology Reports and Pathology Reports are provided separately, in subsequent sections. Lab Results This section contains the Chemistry/Hematology Results that were resulted 30 days before or 30 daysafter the date of the Encounter. Date/Time Source Result Type Result - Unit Interpretation Reference Range Comment Feb 09, 2024 12:40 PM [facility] HEP B CORE AB TOTAL. (STL) Specimen Type: SERUM No comment entered. Ordering Provider: KYLER PURCELL Report Released Date/Time: Feb 09, 2024 10:43 AM Reporting Lab: [address] [address] Performing Lab: [address] [address] HEP B CORE AB TOTAL. (STL) Nonreactive Nonreactive Feb 09, 2024 12:40 PM [facility] HEP HB S Ag ([place]) (STL) Specimen Type: SERUM No comment entered. Ordering Provider: KYLER PURCELL Report Released Date/Time: Feb 09, 2024 10:43 AM Reporting Lab: [address] [address] Performing Lab: [address] [address] HEP HB S Ag ([place]) (STL) Nonreactive Nonreactive Feb 09, 2024 12:40 PM [facility] HEPATITIS B SURFACE AB PNL Specimen Type: SERUM No comment entered. Ordering Provider: KYLER PURCELL Report Released Date/Time: Feb 09, 2024 10:43 AM Reporting Lab: [address] [address] Performing Lab: [address] [address] HEP B Surface Ab-HBsAB (L) REACTIVE m[IU]/mL Nonreactive HEP Bs AB-QUANT (L) 79.36 m[IU]/mL Feb 09, 2024 12:40 PM [facility] RENAL PANEL Specimen Type: PLASMA Comment: No hemolysis noted. Ordering Provider: KYLER PURCELL Report Released Date/Time: Feb 04, 2024 03:20 PM Reporting Lab: [address] [address] Performing Lab: [address] [address] CREATININE 7.69 mg/dL H 0.7-1.3 UREA NITROGEN 52.2 mg/dL H 9.0-25.0 GLUCOSE 147 mg/dL H 72-99 SODIUM 142 meq/L 136-145 POTASSIUM 4.1 meq/L 3.5-5 CHLORIDE 107 meq/L 98-107 CARBON DIOXIDE 22 meq/L 22-31 CALCIUM 10.2 mg/dL 8.4-10.4 PHOSPHOROUS 3.7 mg/dL 2.3-4.7 ALBUMIN 3.7 g/dL 3.4-5 EGFR (CKD-EPI 2020) 7.1 LL >60 Feb 09, 2024 12:40 PM [facility] CBC Specimen Type: BLOOD No comment entered. Ordering Provider: KYLER PURCELL Report Released Date/Time: Feb 04, 2024 03:20 PM Reporting Lab: [address] [address] Performing Lab: [address] [address] WBC 9.7 10*3/uL 3.6-11.2 RBC 3.09 10*6/uL [...] 10*3/uL 0.00-0.20 Feb 04, 2024 05:00 PM [facility] URR-POST PANEL (STL) Specimen Type: PLASMA No comment entered. Ordering Provider: KYLER PURCELL Report Released Date/Time: Feb 04, 2024 01:42 PM Reporting Lab: [address] [address] Performing Lab: [address] [address] BUN-POST DIALYSIS 16.2 mg/dL 9.0-25.0 URR (STL) 70.4 67.0-100.0 Feb 04, 2024 12:45 PM [facility] RENAL PANEL Specimen Type: PLASMA Comment: No hemolysis noted. Ordering Provider: KYLER PURCELL Report Released Date/Time: Feb 04, 2024 01:42 PM Reporting Lab: [address] [address] Performing Lab: [address] [address] CREATININE 6.97 mg/dL H 0.7-1.3 UREA NITROGEN 54.7 mg/dL H 9.0-25.0 GLUCOSE 134 mg/dL H 72-99 SODIUM 142 meq/L 136-145 POTASSIUM 4.0 meq/L 3.5-5 CHLORIDE 105 meq/L 98-107 CARBON DIOXIDE 24 meq/L 22-31 CALCIUM 9.7 mg/dL 8.4-10.4 PHOSPHOROUS 4.8 mg/dL H 2.3-4.7 ALBUMIN 3.9 g/dL 3.4-5 EGFR (CKD-EPI 2020) 7.9 LL >60 Feb 02, 2024 04:30 PM [facility] URR-POST PANEL (STL) Specimen Type: PLASMA No comment entered. Ordering Provider: KYLER PURCELL Report Released Date/Time: Feb 02, 2024 03:39 PM Reporting Lab: [address] [address] Performing Lab: [address] [address] BUN-POST DIALYSIS 22.9 mg/dL 9.0-25.0 URR (STL) 60.9 L 67.0-100.0 Feb 02, 2024 11:50 AM [facility] RENAL PANEL Specimen Type: PLASMA Comment: No hemolysis noted. Ordering Provider: KYLER PURCELL Report Released Date/Time: Feb 02, 2024 07:35 AM Reporting Lab: [address] [address] Performing Lab: [address] [address] CREATININE 8.34 mg/dL H 0.7-1.3 UREA NITROGEN 58.6 mg/dL H 9.0-25.0 GLUCOSE 169 mg/dL H 72-99 SODIUM 142 meq/L 136-145 POTASSIUM 4.6 meq/L 3.5-5 CHLORIDE 111 meq/L H 98-107 CARBON DIOXIDE 20 meq/L L 22-31 CALCIUM 9.2 mg/dL 8.4-10.4 PHOSPHOROUS 3.6 mg/dL 2.3-4.7 ALBUMIN 3.7 g/dL 3.4-5 EGFR (CKD-EPI 2020) 6.4 LL >60 Feb 01, 2024 11:00 PM [facility] 24H UR CHEM PANEL (STL) Specimen Type: 24-HOUR URINE No comment entered. Ordering Provider: KYLER PURCELL Report Released Date/Time: Jan 28, 2024 04:55 PM Reporting Lab: [address] [address] Performing Lab: [address] [address] VOLUME 3289 mL SODIUM 24-HOUR URINE 226.941 H 40-220 POTASSIUM 24-HOUR URINE 35.8501 25-125 CHLORIDE 24-HOUR URINE 171.028 110-250 PROTEIN 24-HOUR URINE 1986.556 H 0-299.9 CREATININE 24-HOUR URINE 2078.761 395-3325 Jan 28, 2024 05:29 PM [facility] CBC Specimen Type: BLOOD No comment entered. Ordering Provider: KYLER PURCELL Report Released Date/Time: Jan 28, 2024 05:07 PM Reporting Lab: [facility] [address] Performing Lab: [place] [address] [facility] [address] WBC 8.9 10*3/uL 3.6-11.2 RBC 2.96 10*6/uL [...] 10*3/uL 0.00-0.20 Jan 26, 2024 01:00 PM [facility] PTH, INTACT (STL) Specimen Type: SERUM No comment entered. Ordering Provider: KYLER PURCELL Report Released Date/Time: Jan 21, 2024 03:14 PM Reporting Lab: [place] [address] [facility] [address] Performing Lab: [address] [address] PTH, INTACT (STL) 141.40 pg/mL H 8.7-77.7 Jan 26, 2024 01:00 PM [facility] IRON/TIBC PROFILE Specimen Type: SERUM No comment entered. Ordering Provider: KYLER PURCELL Report Released Date/Time: Jan 21, 2024 03:14 PM Reporting Lab: [address] [address] Performing Lab: [address] [address] TIBC 225 ug/dL L 250-450 TRANSFERRIN 180 mg/dL 163-344 IRON SATURATION 23 20-50 IRON 52 ug/dL L 65-175 Jan 26, 2024 01:00 PM [facility] FERRITIN Specimen Type: SERUM No comment entered. Ordering Provider: KYLER PURCELL Report Released Date/Time: Jan 21, 2024 03:14 PM Reporting Lab: [address] [address] Performing Lab: [address] [address] FERRITIN 118.78 ng/mL 22-275 Jan 26, 2024 01:00 PM [facility] RENAL PANEL Specimen Type: PLASMA Comment: No hemolysis noted. Ordering Provider: KYLER PURCELL Report Released Date/Time: Jan 21, 2024 03:14 PM Reporting Lab: [address] [address] Performing Lab: [address] [address] CREATININE 8.25 mg/dL H 0.7-1.3 UREA NITROGEN 63.1 mg/dL H 9.0-25.0 GLUCOSE 157 mg/dL H 72-99 SODIUM 137 meq/L 136-145 POTASSIUM 4.2 meq/L 3.5-5 CHLORIDE 100 meq/L 98-107 CARBON DIOXIDE 26 meq/L 22-31 CALCIUM 9.6 mg/dL 8.4-10.4 PHOSPHOROUS 4.9 mg/dL H 2.3-4.7 ALBUMIN 3.7 g/dL 3.4-5 EGFR (CKD-EPI 2020) 6.5 LL >60 Jan 26, 2024 01:00 PM [facility] CBC Specimen Type: BLOOD No comment entered. Ordering Provider: KYLER PURCELL Report Released Date/Time: Jan 21, 2024 03:14 PM Reporting Lab: [facility] [address] [facility] [address] Performing Lab: [facility] [address] [place] [address] WBC 7.8 10*3/uL 3.6-11.2 RBC 2.95 10*6/uL [...] 10*3/uL 0.00-0.20 Jan 21, 2024 12:55 PM [facility] PT/INR NEW ([facility]) Specimen Type: PLASMA No comment entered. Ordering Provider: KYLER PURCELL Report Released Date/Time: Jan 21, 2024 12:43 PM Reporting Lab: [address] [address] Performing Lab: [address] [address] PROTIME 15.9 s H 9.4-12.5 INR VALUE 1.4 {INR} Jan 21, 2024 12:55 PM [facility] RENAL PANEL Specimen Type: PLASMA Comment: No hemolysis noted. Ordering Provider: KYLER PURCELL Report Released Date/Time: Jan 21, 2024 12:41 PM Reporting Lab: [address] [address] Performing Lab: [address] [address] CREATININE 8.11 mg/dL H 0.7-1.3 UREA NITROGEN 82.6 mg/dL H 9.0-25.0 GLUCOSE 114 mg/dL H 72-99 SODIUM 139 meq/L 136-145 POTASSIUM 5.1 meq/L H 3.5-5 CHLORIDE 109 meq/L H 98-107 CARBON DIOXIDE 19 meq/L L 22-31 CALCIUM 9.3 mg/dL 8.4-10.4 PHOSPHOROUS 4.1 mg/dL 2.3-4.7 ALBUMIN 3.8 g/dL 3.4-5 EGFR (CKD-EPI 2020) 6.6 LL >60 Jan 14, 2024 11:55 AM [facility] RENAL PANEL Specimen Type: PLASMA Comment: No hemolysis noted. Ordering Provider: KYLER PURCELL Report Released Date/Time: Jan 13, 2024 07:58 AM Reporting Lab: [address] [address] Performing Lab: [address] [address] CREATININE 8.05 mg/dL H 0.7-1.3 UREA NITROGEN 70.7 mg/dL H 9.0-25.0 GLUCOSE 155 mg/dL H 72-99 SODIUM 140 meq/L 136-145 POTASSIUM 5.1 meq/L H 3.5-5 CHLORIDE 107 meq/L 98-107 CARBON DIOXIDE 21 meq/L L 22-31 CALCIUM 9.6 mg/dL 8.4-10.4 PHOSPHOROUS 4.8 mg/dL H 2.3-4.7 ALBUMIN 4.1 g/dL 3.4-5 EGFR (CKD-EPI 2020) 6.7 LL >60 Jan 11, 2024 11:36 AM [facility] GLUCOSE,BLOOD-poct (STL) Specimen Type: BLOOD Comment: Test Performed by: [id number] Meter #: [id number] Ordering Provider: LINOMED Report Released Date/Time: Jan 11, 2024 11:50 AM Reporting Lab: [address] [address] Performing Lab: [place] [address] [facility] [address] GLUCOSE,BLOOD- poct (STL) 106 mg/dL H 72-Jan 11, 2024 11:07 AM [facility] GLUCOSE,BLOOD-poct (STL) Specimen Type: BLOOD Comment: Test Performed by: [id number] Meter #: [id number] Ordering Provider: LINOMED Report Released Date/Time: Jan 11, 2024 11:18 AM Reporting Lab: [place] [address] [facility] [address] Performing Lab: [address] [address] GLUCOSE,BLOOD- poct (STL) 109 mg/dL H -Jan 11, 2024 05:12 AM [facility] GLUCOSE,BLOOD-poct (STL) Specimen Type: BLOOD Comment: Test Performed by: [id number] Meter #: [id number] Ordering Provider: LINOMED Report Released Date/Time: Jan 11, 2024 05:25 AM Reporting Lab: [place] [address] [facility] [address] Performing Lab: [place] [address] [facility] [address] GLUCOSE,BLOOD- poct (STL) 88 mg/dL -Jan 10, 2024 08:19 PM [facility] GLUCOSE,BLOOD-poct (STL) Specimen Type: BLOOD Comment: Test Performed by: [id number] Meter #: [id number] Ordering Provider: LINO,MED Report Released Date/Time: Jan 10, 2024 08:31 PM Reporting Lab: [address] [address] Performing Lab: [place] [address] [facility] [address] GLUCOSE,BLOOD- poct (STL) 153 mg/dL H 72-Jan 10, 2024 04:15 PM [facility] GLUCOSE,BLOOD-poct (STL) Specimen Type: BLOOD Comment: Test Performed by: [id number] Meter #: [id number] Ordering Provider: LIDIA HUYNH Report Released Date/Time: Jan 10, 2024 05:05 PM Reporting Lab: [address] [address] Performing Lab: [address] [address] GLUCOSE,BLOOD- poct (STL) 84 mg/dL 72-Jan 10, 2024 11:31 AM [facility] GLUCOSE,BLOOD-poct (STL) Specimen Type: BLOOD Comment: Test Performed by: [id number] Meter #: [id number] Ordering Provider: LIDIA HUYNH Report Released Date/Time: Jan 10, 2024 12:03 PM Reporting Lab: [address] [address] Performing Lab: [address] [address] GLUCOSE,BLOOD- poct (STL) 99 mg/dL -Jan 10, 2024 04:45 AM [facility] GLUCOSE,BLOOD-poct (STL) Specimen Type: BLOOD Comment: Test Performed by: [id number] Meter #: [id number] Ordering Provider: LIDIA HUYNH Report Released Date/Time: Jan 10, 2024 05:29 AM Reporting Lab: [address] [address] Performing Lab: [address] [address] GLUCOSE,BLOOD- poct (STL) 109 mg/dL H 72-Jan 09, 2024 08:08 PM [facility] GLUCOSE,BLOOD-poct (STL) Specimen Type: BLOOD Comment: Test Performed by: [id number] Meter #: [id number] Ordering Provider: LIDIA HUYNH Report Released Date/Time: Jan 09, 2024 08:28 PM Reporting Lab: [facility] [address] [facility] [address] Performing Lab: [facility] [address] [facility] [address] GLUCOSE,BLOOD- poct (STL) 110 mg/dL H 72-99 Jan 09, 2024 04:19 PM [facility] GLUCOSE,BLOOD-poct (STL) Specimen Type: BLOOD Comment: Test Performed by: [id number] Meter #: [id number] Ordering Provider: LIDIA HUYNH Report Released Date/Time: Jan 09, 2024 04:34 PM Reporting Lab: [facility] [address] [facility] [address] Performing Lab: [facility] [address] [place] [address] GLUCOSE,BLOOD- poct (STL) 119 mg/dL H 72-99 Jan 09, 2024 02:30 PM [facility] MAGNESIUM Specimen Type: PLASMA Comment: No hemolysis noted. Ordering Provider: TATI ZAVALA Report Released Date/Time: Jan 09, 2024 07:51 AM Reporting Lab: [facility] [address] [facility] [address] Performing Lab: [facility] [address] [place] [address] MAGNESIUM 1.6 mg/dL 1.6-2.6 Jan 09, 2024 02:30 PM [facility] RENAL PANEL Specimen Type: PLASMA Comment: No hemolysis noted. Ordering Provider: TATI ZAVALA Report Released Date/Time: Jan 09, 2024 07:51 AM Reporting Lab: [facility] [address] [facility] [address] Performing Lab: [facility] [address] [place] [address] CREATININE 5.13 mg/dL H 0.7-1.3 UREA NITROGEN 46.2 mg/dL H 9.0-25.0 GLUCOSE 177 mg/dL H 72-99 SODIUM 136 meq/L 136-145 POTASSIUM 4.0 meq/L 3.5-5 CHLORIDE 101 meq/L 98-107 CARBON DIOXIDE 23 meq/L 22-31 CALCIUM 8.6 mg/dL 8.4-10.4 PHOSPHOROUS 2.7 mg/dL 2.3-4.7 ALBUMIN 3.6 g/dL 3.4-5 EGFR (CKD-EPI 2020) 11.5 LL >60 Jan 09, 2024 12:27 PM [facility] GLUCOSE,BLOOD-poct (STL) Specimen Type: BLOOD Comment: Test Performed by: [id number] Meter #: [id number] Ordering Provider: LINOMED Report Released Date/Time: Jan 09, 2024 12:38 PM Reporting Lab: [address] [address] Performing Lab: [address] [address] GLUCOSE,BLOOD- poct (STL) 98 mg/dL 72-99 Jan 09, 2024 07:15 AM [facility] GLUCOSE,BLOOD-poct (STL) Specimen Type: BLOOD Comment: Test Performed by: [id number] Meter #: [id number] Ordering Provider: LINOMED Report Released Date/Time: Jan 09, 2024 07:58 AM Reporting Lab: [address] [address] Performing Lab: [address] [address] GLUCOSE,BLOOD- poct (STL) 86 mg/dL 72-99 Jan 08, 2024 09:04 PM [facility] GLUCOSE,BLOOD-poct (STL) Specimen Type: BLOOD Comment: Test Performed by: [id number] Meter #: [id number] Ordering Provider: LINO,MED Report Released Date/Time: Jan 08, 2024 09:47 PM Reporting Lab: [address] [place] [address] Performing Lab: [facility] [address] [place] [address] GLUCOSE,BLOOD- poct (STL) 90 mg/dL 72-99 Jan 08, 2024 09:01 PM [facility] HEP B CORE AB TOTAL. (STL) Specimen Type: SERUM No comment entered. Ordering Provider: EFREN TAYLOR Report Released Date/Time: Jan 08, 2024 02:35 PM Reporting Lab: [address] [address] Performing Lab: [address] [address] HEP B CORE AB TOTAL. (STL) Nonreactive Nonreactive Jan 08, 2024 09:01 PM [facility] HEP HB S Ag ([place]) (STL) Specimen Type: SERUM No comment entered. Ordering Provider: EFREN TAYLOR Report Released Date/Time: Jan 08, 2024 02:35 PM Reporting Lab: [place] [address] [facility] [address] Performing Lab: [address] [address] HEP HB S Ag ([place]) (STL) Nonreactive Nonreactive Jan 08, 2024 09:01 PM [facility] HEPATITIS B SURFACE AB PNL Specimen Type: SERUM No comment entered. Ordering Provider: EFREN TAYLOR Report Released Date/Time: Jan 08, 2024 02:35 PM Reporting Lab: [place] [address] [facility] [address] Performing Lab: [address] [address] HEP B Surface Ab-HBsAB (STL) REACTIVE m[IU]/mL Nonreactive HEP Bs AB-QUANT (STL) 63.22 m[IU]/mL Jan 08, 2024 04:47 PM [facility] GLUCOSE,BLOOD-poct (STL) Specimen Type: BLOOD Comment: Test Performed by: [id number] Meter #: [id number] Ordering Provider: LIDIA HUYNH Report Released Date/Time: Jan 08, 2024 05:09 PM Reporting Lab: [address] [address] Performing Lab: [address] [address] GLUCOSE,BLOOD- poct (STL) 95 mg/dL 72-99 Jan 08, 2024 11:26 AM [facility] GLUCOSE,BLOOD-poct (STL) Specimen Type: BLOOD Comment: Test Performed by: [id number] Meter #: [id number] Ordering Provider: LIDIA HUYNH Report Released Date/Time: Jan 08, 2024 11:37 AM Reporting Lab: [address] [address] Performing Lab: [address] [address] GLUCOSE,BLOOD- poct (STL) 105 mg/dL H 72-99 Jan 08, 2024 07:01 AM [facility] RENAL PANEL Specimen Type: PLASMA Comment: No hemolysis noted. Ordering Provider: LIZETTE GRIFFIN Report Released Date/Time: Jan 07, 2024 11:24 PM Reporting Lab: [address] [address] Performing Lab: [address] [address] CREATININE 8.50 mg/dL H 0.7-1.3 UREA NITROGEN 88.2 mg/dL H 9.0-25.0 GLUCOSE 70 mg/dL L 72-99 SODIUM 139 meq/L 136-145 POTASSIUM 5.4 meq/L H 3.5-5 CHLORIDE 110 meq/L H 98-107 CARBON DIOXIDE 19 meq/L L 22-31 CALCIUM 9.4 mg/dL 8.4-10.4 PHOSPHOROUS 5.1 mg/dL H 2.3-4.7 ALBUMIN 3.8 g/dL 3.4-5 EGFR (CKD-EPI 2020) 6.3 LL >60 Jan 08, 2024 06:37 AM [facility] GLUCOSE,BLOOD-poct (STL) Specimen Type: BLOOD Comment: Test Performed by: [id number] Meter #: [id number] Ordering Provider: LIDIA HUYNH Report Released Date/Time: Jan 08, 2024 06:48 AM Reporting Lab: [address] [address] Performing Lab: [address] [address] GLUCOSE,BLOOD- poct (STL) 86 mg/dL 72-99 Jan 07, 2024 11:58 PM [facility] RENAL PANEL Specimen Type: PLASMA Comment: No hemolysis noted. Ordering Provider: LIZETTE GRIFFIN Report Released Date/Time: Jan 07, 2024 11:38 PM Reporting Lab: [address] [address] Performing Lab: [address] [address] CREATININE 8.68 mg/dL H 0.7-1.3 UREA NITROGEN 92.6 mg/dL H 9.0-25.0 GLUCOSE 143 mg/dL H 72-99 SODIUM 138 meq/L 136-145 POTASSIUM 5.0 meq/L 3.5-5 CHLORIDE 111 meq/L H 98-107 CARBON DIOXIDE 17 meq/L L 22-31 CALCIUM 8.8 mg/dL 8.4-10.4 PHOSPHOROUS 3.8 mg/dL 2.3-4.7 ALBUMIN 3.8 g/dL 3.4-5 EGFR (CKD-EPI 2020) 6.1 LL >60 Jan 07, 2024 11:36 PM [facility] GLUCOSE,BLOOD-poct (STL) Specimen Type: BLOOD Comment: Test Performed by: [id number] Meter #: [id number] Ordering Provider: LIDIA MOSCOSO Report Released Date/Time: Jan 07, 2024 11:47 PM Reporting Lab: [address] [address] Performing Lab: [address] [place] [address] GLUCOSE,BLOOD- poct (STL) 157 mg/dL H 72-99 Jan 07, 2024 11:30 PM [facility] MRSA SURVL NARES DNA Specimen Type: [...] Jan 07, 2024 11:24 PM Reporting Lab: [address] [address] Performing Lab: [address] [address] MRSA SURVL NARES DNA Negative Negative Jan 07, 2024 09:08 PM [facility] POTASSIUM Specimen Type: PLASMA Comment: No hemolysis noted. Ordering Provider: ANNA CALI Report Released Date/Time: Jan 07, 2024 08:38 PM Reporting Lab: [address] [address] Performing Lab: [address] [address] POTASSIUM 5.7 meq/L H 3.5-5 Jan 07, 2024 07:30 PM [facility] URINALYSIS (L-PB) Specimen Type: URINE No comment entered. Ordering Provider: ANNA CALI Report Released Date/Time: Jan 07, 2024 05:18 PM Reporting Lab: [address] [address] Performing Lab: [address] [address] URINE COLOR Colorless Yellow U.BILIRUBIN Negative mg/dL [...] 1.015 1.005-1.029 Jan 07, 2024 05:30 PM [facility] BRAIN NATRIURETIC PEPTIDE Specimen Type: PLASMA No comment entered. Ordering Provider: GRACIELA MANN Report Released Date/Time: Jan 07, 2024 04:59 PM Reporting Lab: [address] [address] Performing Lab: [address] [address] BRAIN NATRIURETIC PEPTIDE 59.0 pg/mL 0-100 Jan 07, 2024 05:30 PM [facility] COVID-19 DIAGNOSTIC (FLU/RSV)(ST) Specimen Type: NASOPHARYNX [...] Jan 07, 2024 04:59 PM Reporting Lab: [address] [address] Performing Lab: [address] [address] INFLUENZA A Negative Negative INFLUENZA B Negative Negative COVID-19 (STL-PB) Not Detected Not Detected RSV (Cepheid) NEGATIVE Negative Jan 07, 2024 05:30 PM [facility] COMPREHENSIVE METABOLIC PANEL Specimen Type: PLASMA Comment: Aspartate Transaminase result may show positive bias due to hemolysis. K result canceled due to hemolysis. Specimen moderately hemolyzed. K cancelled due to moderate hemolysis. Called to : Phillip Cee RN at: 1902 on: 01/07/2024 by: TENNILLE Ordering Provider: GRACIELA MANN Report Released Date/Time: Jan 07, 2024 04:59 PM Reporting Lab: [address] [address] Performing Lab: [address] [address] CREATININE 8.88 mg/dL H 0.7-1.3 UREA NITROGEN [...] LL >60 Jan 07, 2024 05:30 PM [facility] CBC Specimen Type: BLOOD No comment entered. Ordering Provider: GRACIELA MANN Report Released Date/Time: Jan 07, 2024 04:59 PM Reporting Lab: [address] [address] Performing Lab: [address] [address] WBC 9.2 10*3/uL 3.6-11.2 RBC 3.81 10*6/uL [...] 01:14 PM [facility]YX ADMIT TOBACCO SCREEN NO [facility] Tobacco Use History This section includes a history of the smoking, or tobacco-related health factors, that were collected on or before the date of the Encounter. The data comes from the [place] facility where the Encounter took place. Date/Time Smoking Status/Tobacco Use Comment F acility Dec 12, 2022 04:00 PM ORYX ADMIT TOBACCO SCREEN NO [facility] Jun 25, 2022 03:24 PM VA-TOBACCO FORMER USER [facility] Jun 25, 2022 03:24 PM VA-TOBACCO QUIT 15 YRS OR MORE [facility] Dec 23, 2021 04:59 PM ORYX ADMIT TOBACCO SCREEN REFUSED [facility] May 24, 2020 11:27 PM ORYX ADMIT TOBACCO SCREEN NO [facility] Dec 12, 2019 10:24 AM VA-TOBACCO FORMER USER [facility] Dec 12, 2019 10:24 AM VA-TOBACCO QUIT 15 YRS OR MORE [facility] Aug 03, 2019 02:11 AM ORYX ADMIT TOBACCO SCREEN REFUSED [facility] Oct 12, 2018 01:14 AM QUIT TOBACCO >7 YEARS AGO [facility] Oct 11, 2018 03:33 PM ORYX ADMIT TOBACCO SCREEN NO [facility] Sep 07, 2018 09:13 PM ORYX ADMIT TOBACCO SCREEN NO [facility] Sep 07, 2018 07:52 PM QUIT TOBACCO >7 YEARS AGO [facility] Advance Directives: All historical and current [...] Dec 17, 2022 ADVANCE DIRECTIVE BIJAN MERRITT [facility] Feb 09, 2020 ADVANCE DIRECTIVE DISCUSSION MELY LUCIANO [facility] Feb 02, 2018 ADVANCE DIRECTIVE BEAU ALTAMIRANO [facility] Nov 29, 2006 ADVANCE DIRECTIVE MARELY CHACON [facility] Radiology Reports: +/- 30 days of [...] 2024 08:01 PM CHEST PORTABLE: NAGI KATZ [id number] -[id number] M Exm Date: JAN 07, 2024@20:01 Req Phys: ANNA CALI Pat Loc: [facility]Y DEPT 3RD SHIFT (R Img Loc: -MAIN RADIOLOGY SUITE Service: Unknown (Case [id number] COMPLETE) CHEST PORTABLE (RAD Detailed) CPT:83871 Proc Modifiers : Portable Reason for Study: weakness, ESRD Clinical History: Report Status: Verified Date Reported: JAN 07, 2024 Date Verified: JAN 07, 2024 Car 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 images were received by the [place] National Teleradiology Program (NTP) for interpretation. FINDINGS: Bilateral peribronchial thickening. Patchy bilateral lower lobe lung opacities. Mildly tortuous aorta. No acute bony abnormalities. Impression: 1. Bilateral peribronchial thickening. 2. Patchy bilateral lung opacities likely represent atelectasis. 3. No pneumothorax. READING PHYSICIAN: Madhu Patton M.D. -[id number] 01/07/2024 19:10 PDT [facility] National Teleradiology Program [phone] (For Medical Practitioner Use Only) Attention Patients / Veterans: If you have questions or concerns about these test results, please contact your ordering provider or primary care team. Primary Interpreting Staff: RADIOLOGY,OUTSIDE SERVICE, Staff Physician / RADIOLOGY,OUTSIDE SERVICE [facility] Encounter Notes: All associated encounter notes This section contains the clinical notes associated to the Encounter. Date/Time Encounter Note(s) Provider Source Dec 14, 2023 04:25 PM NONVA NOTE: LOCAL TITLE: COMMUNITY CARE-REQUEST FOR SERVICE NOTE [facility] STANDARD TITLE: NONVA NOTE DATE OF NOTE: DEC 14, 2023@16:25 ENTRY DATE: FEB 02, 2024@16:42:13 AUTHOR: MIHAI ARNOLD EXP COSIGNER: URGENCY: STATUS: COMPLETED Request for Services (RFS) documentation has been sent for scanning to [facility] Community Care Consult: COMMUNITY CARE-Transplant [place] Consult No: [id number] Date sent to scanning: Dec A Request for Service (RFS) form [id number] has been received which includes the following: Care Requested: ready for waitlisting and possible surgery. Copy of notes/RFS sent to [facility]. ICD-10 Dx code: N18.6 Date [facility] received request: Dec Date service required: Mar 4,2024 Requesting Community Provider Information: Name of Ordering Provider: TEENA [facility] Office:[facility] Address, City, State: [place], [place] Attn: Cherelle Aquino /es/ MIHAI ARNOLD MSN RN REGISTERED NURSE Signed: 02/02/2024 16:[address] [facility]
--- OUTSIDE RECORDS SUMMARY | 2024-12-05 00:24 | XMS_ITS | Encounter Summary ---
Author Name [facility] [place] [facility] [facility] [place] Address [address] [place] [address] Care Team Providers Care Siene Maker Name Role Phone ERIKA DEE Primary Care Provider UnavailTHAO Echols Primary Care Provider Unavailab edmond Insurance [...] PART A Jul 12, 2019 PART A [id number] [phone] PRASANNA KATZ PATIENT MEDICARE (WNR) MEDICARE (M) PART A Jul 12, 2019 PART A [id number] PRASANNA KATZ PATIENT Selected Encounter This section includes the information on record at CT for the Encounter. Date/Time Encounter Type Encounter Description Reason Pro vider Source Apr 27, 2024 12:06 PM Outpatient Encounter GENERAL INTERNAL MEDICINE [facility] Encounter Template Text not used by CT Plan of Treatment: Future Appointments (+ 6 [...] 20 appointments. The data comes from all [facility]. Appointment Date/Time Appointment Type Appointme nt Facility Name May 02, 2024 08:00 AM AMBULATORY - NONE [facility] May 02, 2024 08:30 AM AMBULATORY - MEDICINE [facility] May 16, 2024 02:00 PM AMBULATORY - MEDICINE [facility] Jul 12, 2024 08:00 AM AMBULATORY - NONE [facility] Jul 12, 2024 08:30 AM AMBULATORY - MEDICINE [facility] Aug 18, 2024 09:15 AM AMBULATORY - MEDICINE [facility] Active, Pending, and Scheduled Orders This section includes a listing of several types of active, pending, and scheduled orders, including clinic medications orders, diagnostic test orders, procedure orders and consult orders; where the start date of the order is 45 days before the date of the Encounter or 45 days after the date of theEncounter. The data comes from all [facility]. Test Date/Time Test Type Test Details Facility Name May 16, 2024 12:00 AM Laboratory - Chemi stry Order HGA1C BLOOD SP [facility] Social History: Smoking Status (Most current) and Tobacco Use (All prior to encounter date) This section includes the most current, and the historical, smoking and tobacco- related health factors from the [place] facility where the Encounter took place. Current Smoking Status This section includes the most current smoking, or tobacco-related health factor, from the [place] facility where the Encounter took place. Date/Time Current Smoking Status Comment Facil ity Jun 21, 2023 01:14 PM ORYX ADMIT TOBACCO SCREEN NO [facility] Tobacco Use History This section includes a history of the smoking, or tobacco-related health factors, that were collected on or before the date of the Encounter. The data comes from the [place] facility where the Encounter took place. Date/Time Smoking Status/Tobacco Use Comment F acility Dec 12, 2022 04:00 PM ORYX ADMIT TOBACCO SCREEN NO [facility] Jun 25, 2022 03:24 PM VA-TOBACCO FORMER USER [facility] Jun 25, 2022 03:24 PM VA-TOBACCO QUIT 15 YRS OR MORE [facility] Dec 23, 2021 04:59 PM ORYX ADMIT TOBACCO SCREEN REFUSED [facility] May 24, 2020 11:27 PM ORYX ADMIT TOBACCO SCREEN NO [facility] Dec 12, 2019 10:24 AM VA-TOBACCO FORMER USER [facility] Dec 12, 2019 10:24 AM VA-TOBACCO QUIT 15 YRS OR MORE [facility] Aug 03, 2019 02:11 AM ORYX ADMIT TOBACCO SCREEN REFUSED [facility] Oct 12, 2018 01:14 AM QUIT TOBACCO >7 YEARS AGO [facility] Oct 11, 2018 03:33 PM ORYX ADMIT TOBACCO SCREEN NO [facility] Sep 07, 2018 09:13 PM ORYX ADMIT TOBACCO SCREEN NO [facility] Sep 07, 2018 07:52 PM QUIT TOBACCO >7 YEARS AGO [facility] Advance Directives: All historical and current Section Date Range: From patient's date of to the date document was created. This section includes ALL of a patient's completed or amended CT Advance and Rescinded Directives. The entries below indicate that a directive exists for the patient, but an actual copy is not included with this document. The data comes from all CT facilities. Date Advance Directives Provider Source Dec 17, 2022 ADVANCE DIRECTIVE BIJAN MERRITT [facility] Feb 09, 2020 ADVANCE DIRECTIVE DISCUSSION MELY LUCIANO [facility] Feb 02, 2018 ADVANCE DIRECTIVE BEAU ALTAMIRANO [facility] Nov 29, 2006 ADVANCE DIRECTIVE MARELY CHACON [facility] Encounter Notes: All associated encounter notes This section contains the clinical notes associated to the Encounter. Date/Time Encounter Note(s) Provider Source Apr 28, 2024 12:11 PM ADDENDUM: LOCAL TITLE: Addendum STANDARD TITLE: ADDENDUM DATE OF NOTE: APR 28, 2024@12:11:12 ENTRY DATE: APR 28, 2024@12:11:13 AUTHOR: THAO MCQUEEN EXP COSIGNER: URGENCY: STATUS: COMPLETED I have placed a new consult for sleep medicine with the request for evaluation for Inspire device. /edwar/ THAO MCQUEEN Staff Physician Signed: 04/28/2024 12:11 Receipt Acknowledged By: 04/28/2024 14:56 /edwar/ Wan Pineda Rn, BSN REGISTERED NURSE === --- Original Document --- 04/27/24 COMMUNITY CARE-CARE COORDINATION PLAN NOTE 657 STL: Romario Katz, the of Nagi Katz, called [facility] stating needs to be seen soon as he is wanting the inspire sleep device for sleep apnea. Oil Field Operator advised caller to contact the 's pcp. Oil Field Operator advised caller the PCP on file is Thao Mcqueen. /edwar/ MOISES TALAVERA Advanced Collections Manager Signed: 04/27/2024 12:10 04/27/2024 ADDENDUM STATUS: COMPLETED Mrs anderson called [facility] about this request. alerting Dr. mcqueen if this is possible thank you! /edwar/ TIRSO ROSS ADVANCED DIETETIC TECH Signed: 04/27/2024 12:15 Receipt Acknowledged By: 04/27/2024 12:26 /edwar/ THAO MCQUEEN Staff Physician 04/27/2024 ADDENDUM STATUS: COMPLETED Reviewed prior sleep study done in 2020 showing RDI=58 indicating severe sleep apnea. Is the patient currently using a CPAP machine? Does he currently see a sleep medicine provider? What is the reason for wanting to do the Inspire device? /edwar/ THAO MCQUEEN Staff Physician Signed: 04/27/2024 12:27 Receipt Acknowledged By: 04/28/2024 09:18 /edwar/ Wan Pineda Rn, BSN REGISTERED NURSE 04/28/2024 ADDENDUM STATUS: COMPLETED pt does not use a cpap, he states that it neva him and he does not see a sleep medicine provider. he wants the device do to him not sleeping and falling asleep all the time. /es/ Wan Pineda Rn, BSN REGISTERED NURSE Signed: 04/28/2024 09:20 Receipt Acknowledged By: 04/28/2024 12:08 /es/ THAO MCQUEEN Staff Physician THAO MCQUEEN [facility] Apr 28, 2024 09:18 AM ADDENDUM: LOCAL TITLE: Addendum STANDARD TITLE: ADDENDUM DATE OF NOTE: APR 28, 2024@09:18:29 ENTRY DATE: APR 28, 2024@09:18:30 AUTHOR: WAN PINEDA EXP COSIGNER: URGENCY: STATUS: COMPLETED pt does not use a cpap, he states that it neva him and he does not see a sleep medicine provider. he wants the device do to him not sleeping and falling asleep all the time. /edwar/ Wan Pineda Rn, BSN REGISTERED NURSE Signed: 04/28/2024 09:20 Receipt Acknowledged By: 04/28/2024 12:08 /es/ THAO MCQUEEN Staff Physician === --- Original Document --- 04/27/24 COMMUNITY CARE-CARE COORDINATION PLAN NOTE 657 STL: Romario Katz, the of Nagi Katz, called [facility] stating needs to be seen soon as he is wanting the inspire sleep device for sleep apnea. Oil Field Operator advised caller to contact the 's pcp. Oil Field Operator advised caller the PCP on file is Thao Mcqueen. /es/ MOISES TALAVERA Advanced Collections Manager Signed: 04/27/2024 12:10 04/27/2024 ADDENDUM STATUS: COMPLETED Mrs anderson called [facility] about this request. alerting Dr. mcqueen if this is possible thank you! /edwar/ TIRSO ROSS ADVANCED DIETETIC TECH Signed: 04/27/2024 12:15 Receipt Acknowledged By: 04/27/2024 12:26 /edwar/ THAO MCQUEEN Staff Physician 04/27/2024 ADDENDUM STATUS: COMPLETED Reviewed prior sleep study done in 2020 showing RDI=58 indicating severe sleep apnea. Is the patient currently using a CPAP machine? Does he currently see a sleep medicine provider? What is the reason for wanting to do the Inspire device? /edwar/ THAO MCQUEEN Staff Physician Signed: 04/27/2024 12:27 Receipt Acknowledged By: 04/28/2024 09:18 /es/ Wan Pineda Rn, BSN REGISTERED NURSE [facility] Apr 27, 2024 12:26 PM ADDENDUM: LOCAL TITLE: Addendum STANDARD TITLE: ADDENDUM DATE OF NOTE: APR 27, 2024@12:26:10 ENTRY DATE: APR 27, 2024@12:26:11 AUTHOR: THAO MCQUEEN EXP COSIGNER: URGENCY: STATUS: COMPLETED Reviewed prior sleep study done in 2020 showing RDI=58 indicating severe sleep apnea. Is the patient currently using a CPAP machine? Does he currently see a sleep medicine provider? What is the reason for wanting to do the Inspire device? /edwar/ THAO MCQUEEN Staff Physician Signed: 04/27/2024 12:27 Receipt Acknowledged By: 04/28/2024 09:18 /edwar/ Wan Pineda Rn, BSN REGISTERED NURSE === --- Original Document --- 04/27/24 COMMUNITY CARE-CARE COORDINATION PLAN NOTE 657 STL: Romario Katz, the of Nagi Katz, [facility] stating needs to be seen soon as he is wanting the inspire sleep device for sleep apnea. Oil Field Operator advised caller to contact the 's pcp. Oil Field Operator advised caller the PCP on file is Thao Mcqueen. /edwar/ MOISES TALAVERA Advanced Collections Manager Signed: 04/27/2024 12:10 04/27/2024 ADDENDUM STATUS: COMPLETED Mrs anderson called [facility] about this request. alerting Dr. mcqueen if this is possible thank you! /patrice ROSS ADVANCED DIETETIC TECH Signed: 04/27/2024 12:15 Receipt Acknowledged By: 04/27/2024 12:26 /edwar/ THAO MCQUEEN Staff Physician 04/28/2024 ADDENDUM STATUS: UNSIGNED You may not VIEW this UNSIGNED Addendum. THAO MCQUEEN [facility] Apr 27, 2024 12:14 PM ADDENDUM: LOCAL TITLE: Addendum STANDARD TITLE: ADDENDUM DATE OF NOTE: APR 27, 2024@12:14:50 ENTRY DATE: APR 27, 2024@12:14:51 AUTHOR: TIRSO ROSS COSIGNER: URGENCY: STATUS: COMPLETED Mrs anderson called [facility] about this request. alerting Dr. mcqueen if this is possible thank you! /patrice ROSS ADVANCED DIETETIC TECH Signed: 04/27/2024 12:15 Receipt Acknowledged By: 04/27/2024 12:26 /edwar/ THAO MCQUEEN Staff Physician === --- Original Document --- 04/27/24 COMMUNITY CARE-CARE COORDINATION PLAN NOTE 657 STL: Romario Katz, the of Nagi Katz, called [facility] stating needs to be seen soon as he is wanting the inspire sleep device for sleep apnea. Oil Field Operator advised caller to contact the 's pcp. Oil Field Operator advised caller the PCP on file is Thao Mcqueen. /edwar/ MOISES TALAVERA Advanced Collections Manager Signed: 04/27/2024 12:10 04/27/2024 ADDENDUM STATUS: UNSIGNED You may not VIEW this UNSIGNED Addendum. TIRSO ROSS [facility] Apr 27, 2024 12:06 PM NONVA NOTE: LOCAL TITLE: COMMUNITY CARE-CARE COORDINATION PLAN NOTE 657 STL STANDARD TITLE: NONVA NOTE DATE OF NOTE: APR 27, 2024@12:06 ENTRY DATE: APR 27, 2024@12:07:17 AUTHOR: MOISES TALAVERA COSIGNER: URGENCY: STATUS: COMPLETED COMMUNITY CARE-CARE COORDINATION PLAN NOTE 657 STL Has ADDENDA Romario Katz, the of Nagi Katz, called [facility] stating needs to be seen soon as he is wanting the inspire sleep device for sleep apnea. Oil Field Operator advised caller to contact the 's pcp. Oil Field Operator advised caller the PCP on file is Thao Mcqueen. /edwar/ MOISES TALAVERA Advanced Collections Manager Signed: 04/27/2024 12:10 04/27/2024 ADDENDUM STATUS: COMPLETED Mrs anderson called [facility] about this request. alerting Dr. mcqueen if this is possible thank you! /edwar/ TIRSO ROSS ADVANCED DIETETIC TECH Signed: 04/27/2024 12:15 Receipt Acknowledged By: 04/27/2024 12:26 /edwar/ THAO MCQUEEN Staff Physician 04/27/2024 ADDENDUM STATUS: COMPLETED Reviewed prior sleep study done in 2020 showing RDI=58 indicating severe sleep apnea. Is the patient currently using a CPAP machine? Does he currently see a sleep medicine provider? What is the reason for wanting to do the Inspire device? /edwar/ THAO MCQUEEN Staff Physician Signed: 04/27/2024 12:27 Receipt Acknowledged By: 04/28/2024 09:18 /edwar/ Wan Pineda Rn, BSN REGISTERED NURSE 04/28/2024 ADDENDUM STATUS: COMPLETED pt does not use a cpap, he states that it neva him and he does not see a sleep medicine provider. he wants the device do to him not sleeping and falling asleep all the time. /edwar/ Wan Pineda Rn, BSN REGISTERED NURSE Signed: 04/28/2024 09:20 Receipt Acknowledged By: 04/28/2024 12:08 /edwar/ THAO MCQUEEN Staff Physician 04/28/2024 ADDENDUM STATUS: COMPLETED I have placed a new consult for sleep medicine with the request for evaluation for Inspire device. /edwar/ THAO MCQUEEN Staff Physician Signed: 04/28/2024 12:11 Receipt Acknowledged By: * AWAITING SIGNATURE * WAN PINEDA [facility]
--- OUTSIDE RECORDS SUMMARY | 2024-12-05 00:24 | XMS_ITS | Encounter Summary ---
Author Name [facility] [place] [facility] [place] Address [address] [place] [address] Care Team Providers Care Agile Coach Name Role Phone ERIKA DEE Primary Care [...] PART A Jul 12, 2019 PART A [id number] [phone] PRASANNA KATZ PATIENT MEDICARE (WNR) MEDICARE (M) PART A Jul 12, 2019 PART A [id number] [phone] PRASANNA KATZ PATIENT Selected Encounter This section includes the information on record at [place] for the Encounter. Date/Time Encounter Type Encounter Description Reason Provider Source February 13, 2024 12:30 PM UNLISTED DIALYSIS PROCEDURE ASSISTED HEMODIALYSIS ICD-10-CM N18.6 End stage renal disease TERRY HUGHES Encounter Template Text not used by [facility] Assessments - Encounter Diagnoses This section includes the primary and secondary diagnoses documented for the Encounter. 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 This section includes future appointments and future orders which are active, pending or scheduled. Future Appointments This section includes appointments that were scheduled to occur 6 months from the date of the Encounter, up to a maximum of 20 appointments. The data comes from all [place] treatment facilities. Appointment Date/Time Appointment Type Appointme nt Facility Name February 15, 2024 08:00 AM AMBULATORY - NONE [facility] February 15, 2024 08:30 AM AMBULATORY - MEDICINE [facility] Apr 05, 2024 09:30 AM AMBULATORY - MEDICINE [facility] Apr 27, 2024 07:30 AM AMBULATORY - SURGERY [facility] May 02, 2024 08:00 AM AMBULATORY - NONE [facility] May 02, 2024 08:30 AM AMBULATORY - MEDICINE [facility] May 16, 2024 02:00 PM AMBULATORY - MEDICINE [facility] Jul 12, 2024 08:00 AM AMBULATORY - NONE [facility] Jul 12, 2024 08:30 AM AMBULATORY - MEDICINE [facility] Lab Results: +/- 30 days of the encounter This section includes the Chemistry and Hematology Lab Results on record with [place] for the patient. Radiology Reports and Pathology Reports are provided separately, in subsequent sections. Lab Results This section contains the Chemistry/Hematology Results that were resulted 30 days before or 30 daysafter the date of the Encounter. Date/Time Source Result Type Result - Unit Interpretation Reference Range Comment Feb 09, 2024 12:40 PM [facility] HEP B CORE AB TOTAL. (STL) Specimen Type: SERUM No comment entered. Ordering Provider: CHENG PURCELL Report Released Date/Time: Feb 09, 2024 10:43 AM Reporting Lab: [facility] [address] [facility] [address] Performing Lab: [place] [address] [facility] [address] HEP B CORE AB TOTAL. (STL) Nonreactive Nonreactive Feb 09, 2024 12:40 PM [facility] HEP HB S Ag (AUSRIA) (STL) Specimen Type: SERUM No comment entered. Ordering Provider: CHENG PURCELL Report Released Date/Time: Feb 09, 2024 10:43 AM Reporting Lab: [address] [address] Performing Lab: [address] [address] HEP HB S Ag (A[place]RIA) (L) Nonreactive Nonreactive Feb 09, 2024 12:40 PM [facility] HEPATITIS B SURFACE AB PNL Specimen Type: SERUM No comment entered. Ordering Provider: CHENG PURCELL Report Released Date/Time: Feb 09, 2024 10:43 AM Reporting Lab: [address] [address] Performing Lab: [address] [address] HEP B Surface Ab-HBsAB (L) REACTIVE m[IU]/mL Nonreactive HEP Bs AB-QUANT (L) 79.36 m[IU]/mL Feb 09, 2024 12:40 PM [facility] RENAL PANEL Specimen Type: PLASMA Comment: No hemolysis noted. Ordering Provider: CHENG PURCELL Report Released Date/Time: Feb 04, 2024 03:20 PM Reporting Lab: [address] [address] Performing Lab: [address] [address] CREATININE 7.69 mg/dL H 0.7-1.3 UREA NITROGEN 52.2 mg/dL H 9.0-25.0 GLUCOSE 147 mg/dL H 72-99 SODIUM 142 meq/L 136-145 POTASSIUM 4.1 meq/L 3.5-5 CHLORIDE 107 meq/L 98-107 CARBON DIOXIDE 22 meq/L 22-31 CALCIUM 10.2 mg/dL 8.4-10.4 PHOSPHOROUS 3.7 mg/dL 2.3-4.7 ALBUMIN 3.7 g/dL 3.4-5 EGFR (CKD-EPI 2020) 7.1 LL >60 Feb 09, 2024 12:40 PM [facility] CBC Specimen Type: BLOOD No comment entered. Ordering Provider: CHENG PURCELL Report Released Date/Time: Feb 04, 2024 03:20 PM Reporting Lab: [address] [address] Performing Lab: [address] [address] WBC 9.7 10*3/uL 3.6-11.2 RBC 3.09 10*6/uL [...] 10*3/uL 0.00-0.20 Feb 04, 2024 05:00 PM [facility] URR-POST PANEL (STL) Specimen Type: PLASMA No comment entered. Ordering Provider: CHENG PURCELL Report Released Date/Time: Feb 04, 2024 01:42 PM Reporting Lab: [address] [address] Performing Lab: [address] [address] BUN-POST DIALYSIS 16.2 mg/dL 9.0-25.0 URR (STL) 70.4 67.0-100.0 Feb 04, 2024 12:45 PM [facility] RENAL PANEL Specimen Type: PLASMA Comment: No hemolysis noted. Ordering Provider: CHENG PURCELL Report Released Date/Time: Feb 04, 2024 01:42 PM Reporting Lab: [address] [address] Performing Lab: [address] [address] CREATININE 6.97 mg/dL H 0.7-1.3 UREA NITROGEN 54.7 mg/dL H 9.0-25.0 GLUCOSE 134 mg/dL H 72-99 SODIUM 142 meq/L 136-145 POTASSIUM 4.0 meq/L 3.5-5 CHLORIDE 105 meq/L 98-107 CARBON DIOXIDE 24 meq/L 22-31 CALCIUM 9.7 mg/dL 8.4-10.4 PHOSPHOROUS 4.8 mg/dL H 2.3-4.7 ALBUMIN 3.9 g/dL 3.4-5 EGFR (CKD-EPI 2020) 7.9 LL >60 Feb 02, 2024 04:30 PM [facility] URR-POST PANEL (STL) Specimen Type: PLASMA No comment entered. Ordering Provider: CHENG PURCELL Report Released Date/Time: Feb 02, 2024 03:39 PM Reporting Lab: [address] [address] Performing Lab: [address] [address] BUN-POST DIALYSIS 22.9 mg/dL 9.0-25.0 URR (STL) 60.9 L 67.0-100.0 Feb 02, 2024 11:50 AM [facility] RENAL PANEL Specimen Type: PLASMA Comment: No hemolysis noted. Ordering Provider: CHENG PURCELL Report Released Date/Time: Feb 02, 2024 07:35 AM Reporting Lab: [address] [address] Performing Lab: [facility] [address] [place] [address] CREATININE 8.34 mg/dL H 0.7-1.3 UREA NITROGEN 58.6 mg/dL H 9.0-25.0 GLUCOSE 169 mg/dL H 72-99 SODIUM 142 meq/L 136-145 POTASSIUM 4.6 meq/L 3.5-5 CHLORIDE 111 meq/L H 98-107 CARBON DIOXIDE 20 meq/L L 22-31 CALCIUM 9.2 mg/dL 8.4-10.4 PHOSPHOROUS 3.6 mg/dL 2.3-4.7 ALBUMIN 3.7 g/dL 3.4-5 EGFR (CKD-EPI 2020) 6.4 LL >60 Feb 01, 2024 11:00 PM [facility] 24H UR CHEM PANEL (STL) Specimen Type: 24-HOUR URINE No comment entered. Ordering Provider: CHENG PURCELL Report Released Date/Time: Jan 28, 2024 04:55 PM Reporting Lab: [facility] [address] [place] [address] Performing Lab: [address] [address] VOLUME 3289 mL SODIUM 24-HOUR URINE 226.941 H 40-220 POTASSIUM 24-HOUR URINE 35.8501 25-125 CHLORIDE 24-HOUR URINE 171.028 110-250 PROTEIN 24-HOUR URINE 1986.556 H 0-299.9 CREATININE 24-HOUR URINE [phone] Jan 28, 2024 05:29 PM [facility] CBC Specimen Type: BLOOD No comment entered. Ordering Provider: CHENG PURCELL Report Released Date/Time: Jan 28, 2024 05:07 PM Reporting Lab: [address] [phone] Performing Lab: [address] [address] WBC 8.9 10*3/uL 3.6-11.2 RBC 2.96 10*6/uL [...] 10*3/uL 0.00-0.20 Jan 26, 2024 01:00 PM [facility] PTH, INTACT (STL) Specimen Type: SERUM No comment entered. Ordering Provider: CHENG PURCELL Report Released Date/Time: Jan 21, 2024 03:14 PM Reporting Lab: [address] [address] Performing Lab: [address] [address] PTH, INTACT (STL) 141.40 pg/mL H 8.7-77.7 Jan 26, 2024 01:00 PM [facility] RENAL PANEL Specimen Type: PLASMA Comment: No hemolysis noted. Ordering Provider: CHENG PURCELL Report Released Date/Time: Jan 21, 2024 03:14 PM Reporting Lab: [address] [address] Performing Lab: [facility] [address] [facility] [address] CREATININE 8.25 mg/dL H 0.7-1.3 UREA NITROGEN 63.1 mg/dL H 9.0-25.0 GLUCOSE 157 mg/dL H 72-99 SODIUM 137 meq/L 136-145 POTASSIUM 4.2 meq/L 3.5-5 CHLORIDE 100 meq/L 98-107 CARBON DIOXIDE 26 meq/L 22-31 CALCIUM 9.6 mg/dL 8.4-10.4 PHOSPHOROUS 4.9 mg/dL H 2.3-4.7 ALBUMIN 3.7 g/dL 3.4-5 EGFR (CKD-EPI 2020) 6.5 LL >60 Jan 26, 2024 01:00 PM [facility] IRON/TIBC PROFILE Specimen Type: SERUM No comment entered. Ordering Provider: CHENG PURCELL Report Released Date/Time: Jan 21, 2024 03:14 PM Reporting Lab: [facility] [address] [facility] [address] Performing Lab: [facility] [address] [facility] [address] TIBC 225 ug/dL L 250-450 TRANSFERRIN 180 mg/dL 163-344 IRON SATURATION 23 20-50 IRON 52 ug/dL L 65-175 Jan 26, 2024 01:00 PM [facility] FERRITIN Specimen Type: SERUM No comment entered. Ordering Provider: CHENG PURCELL Report Released Date/Time: Jan 21, 2024 03:14 PM Reporting Lab: [facility] [address] [facility] [address] Performing Lab: [facility] [address] [facility] [address] FERRITIN 118.78 ng/mL 22-275 Jan 26, 2024 01:00 PM [facility] CBC Specimen Type: BLOOD No comment entered. Ordering Provider: CHENG PURCELL Report Released Date/Time: Jan 21, 2024 03:14 PM Reporting Lab: [facility] [address] [facility] [address] Performing Lab: [facility] [address] [facility] [address] WBC 7.8 10*3/uL 3.6-11.2 RBC 2.95 10*6/uL [...] 10*3/uL 0.00-0.20 Jan 21, 2024 12:55 PM [facility] PT/INR NEW ([facility]) Specimen Type: PLASMA No comment entered. Ordering Provider: CHENG PURCELL Report Released Date/Time: Jan 21, 2024 12:43 PM Reporting Lab: [facility] [address] [facility] [address] Performing Lab: [address] [address] PROTIME 15.9 s H 9.4-12.5 INR VALUE 1.4 {INR} Jan 21, 2024 12:55 PM [facility] RENAL PANEL Specimen Type: PLASMA Comment: No hemolysis noted. Ordering Provider: CHENG PURCELL Report Released Date/Time: Jan 21, 2024 12:41 PM Reporting Lab: [address] [address] Performing Lab: [facility] [address] [facility] [address] CREATININE 8.11 mg/dL H 0.7-1.3 UREA NITROGEN 82.6 mg/dL H 9.0-25.0 GLUCOSE 114 mg/dL H 72-99 SODIUM 139 meq/L 136-145 POTASSIUM 5.1 meq/L H 3.5-5 CHLORIDE 109 meq/L H 98-107 CARBON DIOXIDE 19 meq/L L 22-31 CALCIUM 9.3 mg/dL 8.4-10.4 PHOSPHOROUS 4.1 mg/dL 2.3-4.7 ALBUMIN 3.8 g/dL 3.4-5 EGFR (CKD-EPI 2020) 6.6 LL >60 Social History: Smoking Status (Most current) and Tobacco Use (All prior to encounter date) This section includes the most current, and the historical, smoking and tobacco- related health factors from the [place] facility where the Encounter took place. Current Smoking Status This section includes the most current smoking, or tobacco-related health factor, from the [place] facility where the Encounter took place. Date/Time Current Smoking Status Comment Ester ity Jun 21, 2023 01:14 PM ORYX ADMIT TOBACCO SCREEN NO [facility] Tobacco Use History This section includes a history of the smoking, or tobacco-related health factors, that were collected on or before the date of the Encounter. The data comes from the [place] facility where the Encounter took place. Date/Time Smoking Status/Tobacco Use Comment F acility Dec 12, 2022 04:00 PM ORYX ADMIT TOBACCO SCREEN NO [facility] Jun 25, 2022 03:24 PM VA-TOBACCO FORMER USER [facility] Jun 25, 2022 03:24 PM VA-TOBACCO QUIT 15 YRS OR MORE [facility] Dec 23, 2021 04:59 PM ORYX ADMIT TOBACCO SCREEN REFUSED [facility] May 24, 2020 11:27 PM ORYX ADMIT TOBACCO SCREEN NO [facility] Dec 12, 2019 10:24 AM VA-TOBACCO FORMER USER [facility] Dec 12, 2019 10:24 AM VA-TOBACCO QUIT 15 YRS OR MORE [facility] Aug 03, 2019 02:11 AM ORYX ADMIT TOBACCO SCREEN REFUSED [facility] Oct 12, 2018 01:14 AM QUIT TOBACCO >7 YEARS AGO [facility] Oct 11, 2018 03:33 PM ORYX ADMIT TOBACCO SCREEN NO [facility] Sep 07, 2018 09:13 PM ORYX ADMIT TOBACCO SCREEN NO [facility] Sep 07, 2018 07:52 PM QUIT TOBACCO >7 YEARS AGO [facility] Advance Directives: All historical and current Section Date Range: From patient's date of to the date document was created. This section includes ALL of a patient's completed or amended [place] Advance and Rescinded Directives. The entries below indicate that a directive exists for the patient, but an actual copy is not included with this document. The data comes from all [place] facilities. Date Advance Directives Provider Source Dec 17, 2022 ADVANCE DIRECTIVE BIJAN [facility]ERRITT [facility] Feb 09, 2020 ADVANCE DIRECTIVE DISCUSSION MELY LUCIANO [facility] Feb 02, 2018 ADVANCE DIRECTIVE BEAU ALTAMIRANO [facility] Nov 29, 2006 ADVANCE DIRECTIVE MARELY CHACON [facility] Encounter Notes: All associated encounter notes This section contains the clinical notes associated to the Encounter. Date/Time Encounter Note(s) Provider Source February 13, 2024 05:38 PM DIALYSIS NOTE: LOCAL TITLE: HEMODIALYSIS RUNSHEET APPOINTMENT [facility] STANDARD TITLE: DIALYSIS NOTE DATE OF NOTE: FEBRUARY 13, 2024@17:38:20 ENTRY DATE: FEBRUARY 13, 2024@17:38:20 AUTHOR: TERRY HUGHES COSIGNER: URGENCY: routine STATUS: COMPLETED Dialysis [place] Appointment on February 13, 2024@12:51 Patient: NAGI KATZ Treatment Date: 13-Feb-2024 1251 Status: Discharged Latest Lab Result: URR: (, ) Kt/V: (, ) HgB: (, ) HCT: (, ) Diagnosis: End stage renal disease Patient Type: Inpatient Allergies: MORPHINE Resuscitate: [x] YES [ ] NO HD Summary Tables TREATMENT SUMMARY Treatment Start Time 13-Feb-2024 1251 Treatment End Time 13-Feb-2024 1653 Duration(ordered): 4:00 Duration(manually adjusted): 4:00 Weights (Kg) and Fluid Removed (L): Date Pre Weight Target Weight Post Weight Excess Weight IDW Goal Weight Target UF Achieved UF Current 103.30 0.00 102.60 103.30 1.30 0.00 0.50 0.92 11-Feb-2024 102.80 0.00 102.00 102.80 1.60 0.00 0.50 1.39 09-Feb-2024 101.70 0.00 101.20 101.70 -0.30 0.00 0.50 1.21 Blood Pressures (mmHg) & Fluid intake (mL) during treatment: Date Pre BP Post BP Lowest BP Highest BP IVF Given (mL) PO Fluid (mL) Current Sitting 148/78 Standing 171/78 141/77 198/74 0.40 Sitting 163/78 -- -- -- -- 11-Feb-2024 Sitting 138/68 Standing 135/68 125/65 152/65 0.40 Standing 141/69 -- -- -- -- 09-Feb-2024 Sitting 170/75 Sitting 128/60 117/58 154/70 0.40 Standing 116/68 -- -- -- -- Pulse and Temp: Date Pre Pulse Post Pulse Lowest Pulse Highest Pulse Pre Temp Post Temp Current Sitting 78 Standing 60 59 67 97.3 97.9 Sitting 62 -- -- -- -- 11-Feb-2024 Sitting 58 Standing 66 58 69 98.3 98.1 Standing 60 -- -- -- -- 09-Feb-2024 Sitting 69 Sitting 57 57 67 98.0 98.1 Standing 62 -- -- -- -- HD Times Date Prescribed Time Achieved Time Treatment Start Treatment End Current 4:00 4:00 1251 11-Feb-2024 4:00 3:46 1243 1630 09-Feb-2024 4:00 3:59 1242 1642 Day's Order Related Problem: End stage renal disease Access Type: Fistula Access Site: VIRGIE Backup Access: Backup Access Site: Needle Gauge: Freezing: [ ] YES [x] NO Machine Type: [place] Isolation: [ ] YES [x] NO Conventional HD Prosthesis(kg): Wheelchair(kg): Target Weight(kg): 0.00 Duration(h): 4:00 or Target UF(kg): 0.50 Frequency(x/wk): 3.00 Dialysate Temp(C): 37.00 Dialysis Type: [ ] daytime [ ] nocturnal Prescribed BVP(L): Dialysate Type: Saline Inf. (mL): NETWORK CONTRACTOR Blood Flow(ml/min): Hemodiafiltr. Volume(l): Hemodiafiltr. Fluid Type: [...] Port (min): 10 Cannulated Glen: 1 Staff: CURT JEONG I Cannulated Art: 1 Staff: CURT JEONG I General: Today's Assessment: = Predialysis === Extra Treatment: [ ] YES [x] NO Received From: Staff On: CURT JEONG I Station: Chair 01 Machine #: C - 11 Resp Caregiver: Treat Caregiver: Arrival Time: 13-Feb-2024 1240 Mode: walking By/With: unaccompanied Vital Signs Temp(C): 97.30 Resp: 20 Time: 1245 Sitting BP: 148/78 Sitting Pulse: 78 Time: BP: Pulse: Weights Measure Wt(kg): 103.30 Target Weight(kg): 0.00 Prosthesis Wt(kg): or Target UF(kg): 0.50 Wheelchair Wt(kg): Weight Change(kg): 1.30 Current Wt(kg): 103.30 Excess Weight(kg): 103.30 Total Fluid Admin(kg): 0.40 Expected UF Vol(kg): 103.70 Target TMP(mm/Hg): UFR(kg/hr : ml/kg/hr): 25.82 : ? Patient Condition: 13-Feb-2024 1309 CURT JEONG I No complaints offered, Confirmed correct pt, Alert and oriented Nursing Assessment: 13-Feb-2024 1248 TERRY HUGHES Sumi ##################### ATOMIC WELDER PRE-ASSESSMENT Time of assessment [1245 MENTAL STATUS: [x ]Alert & Oriented x [...] LE [ ]Left LE [ ]Right LE ########################## Presents to HD Tx stableand without complaints. denies sob, cp, n/v, sales, pain, fever, chills, covid s/s. Tx initiated without difficulty. ##################### HD Diet Topics covered with this education session include: [ ] Recommendations for daily fluid intake [ x ] Recommendations for daily potassium intake in the form of high, medium and low potassium foods with pamphlet provided listing foods by category [ x ] Recommendations for daily phosphorus intake in diet [x ] Importance of including good protein sources with each meal [x ] Importance of limiting intake of preprocessed foods [ x ] Recommendations for restaurant eating Learner Type: Delivery Method: [ ] Family [ ] Handout [x ] Patient [ ] Lecture [ ] Care Provider Patient and/or Caregiver Learning Evaluation: [ ] Excellent - Demonstrates Independently [ x ] Very Good - Explains in Own Words [ ] Good - Verbalizes Understanding [ ] Fair - Demonstrates With Assistance [ ] Follow Up Required - Requires Follow up [ ] Poor - Needs Assistance #################### Acknowledged On: By: Pain: Acuity: Type: Location: Measures: Heparin: Pump Start At: By: Hourly Rate: Bolus: Same Syringe: [ ] YES [x] NO Total in Syringe: Verified By: Time: Communication: Preferred Language: Yemeni Providier Proficient: [ ] YES [x] NO Decision Science Analyst Desired: [ ] YES [x] NO Offered: [ ] YES [x] NO = Dialysis Log DIALYSIS LOG Start Date/Time: 13-Feb-2024 Table 1: Dialysis Data Time BP MAP Pulse BFR BVP AP NETWORK CONTRACTOR TMP UFR TFR HEP Hep Com 1251 270 0.1 -70 80 20 0.23 : ? 0.00 0.0 1252 141/77 0.0 67 400 0.3 -150 180 15 0.23 : ? 0.00 0.0 1306 0.0 1307 152/74 0.0 62 400 6.3 -160 180 10 0.23 : ? 0.05 0.0 1307 0.0 1308 0.0 1322 144/72 0.0 62 400 12.3 -170 170 15 0.23 : ? 0.12 0.0 1337 158/73 0.0 60 400 18.3 -160 180 15 0.23 : ? 0.16 0.0 1352 148/78 0.0 61 400 24.3 -160 180 10 0.23 : ? 0.23 0.0 1407 158/80 0.0 60 400 30.3 -160 170 10 0.23 : ? 0.28 0.0 1422 175/72 0.0 61 400 36.3 -160 170 15 0.23 : ? 0.35 0.0 1437 153/76 0.0 61 400 42.3 -160 170 15 0.23 : ? 0.40 0.0 1452 160/82 0.0 60 400 48.3 -160 170 15 0.23 : ? 0.47 0.0 1507 166/74 0.0 59 400 54.3 -160 160 15 0.23 : ? 0.52 0.0 1522 154/85 0.0 60 400 60.3 -160 160 15 0.23 : ? 0.59 0.0 1538 198/74 0.0 60 400 66.6 -160 160 15 0.23 : ? 0.63 0.0 1552 160/82 0.0 60 400 72.3 -160 160 15 0.23 : ? 0.70 0.0 1608 171/77 0.0 60 400 78.6 -150 170 -5 0.23 : ? 0.75 0.0 1623 176/78 0.0 60 400 84.6 -160 160 10 0.23 : ? 0.82 0.0 1637 168/76 0.0 59 400 90.3 -150 160 15 0.23 : ? 0.87 0.0 1653 171/78 60 0 96.4 20 20 0 0.00 : ? 0.92 0.0 1306 0.0 Table 2: Dialysate Bath Time DFR ADV Temp K Ca Na HC03 1251 600.00 36.90 2.00 2.50 0.00 0.00 1252 600.00 36.80 2.00 2.50 0.00 0.00 1306 1307 600.00 36.90 2.00 2.50 0.00 0.00 1307 1308 1322 600.00 36.90 2.00 2.50 0.00 0.00 1337 600.00 36.90 2.00 2.50 0.00 0.00 1352 600.00 36.90 2.00 2.50 0.00 0.00 1407 600.00 36.90 2.00 2.50 0.00 0.00 1422 600.00 36.90 2.00 2.50 0.00 0.00 1437 600.00 36.80 2.00 2.50 0.00 0.00 1452 600.00 36.80 2.00 2.50 0.00 0.00 1507 600.00 36.80 2.00 2.50 0.00 0.00 1522 600.00 36.80 2.00 2.50 0.00 0.00 1538 600.00 36.80 2.00 2.50 0.00 0.00 1552 600.00 37.00 2.00 2.50 0.00 0.00 1608 600.00 36.90 2.00 2.50 0.00 0.00 1623 600.00 36.90 2.00 2.50 0.00 0.00 1637 600.00 36.90 2.00 2.50 0.00 0.00 1653 600.00 36.80 2.00 2.50 0.00 0.00 1306 Table 3: Patient Assessment Acknowledge Time Author Access Visible Patient Status 13-Feb-2024 131 CURT JEONG I [x] YES [ ] NO Tx initiated per MD orders. 13-Feb-2024 1311 CURT JEONG I [x] YES [ ] NO Conversing with staff 13-Feb-2024 1306 TERRY HUGHES [ ] YES [x] NO 13-Feb-2024 1311 CURT JEONG I [x] YES [ ] NO All lines are secure 13-Feb-2024 1307 TERRY HUGHES [ ] YES [x] NO 13-Feb-2024 1308 TERRY HUGHES [ ] YES [x] NO 13-Feb-2024 1326 TERRY HUGHES [x] YES [ ] NO stable. watching tv. lines secure 13-Feb-2024 1341 CURT JEONG I [x] YES [ ] NO Resting comfortable watching tv. 13-Feb-2024 1413 CURT JEONG I [x] YES [ ] NO 13-Feb-2024 1415 CURT JEONG I [x] YES [ ] NO Vital signs stable, patient resting. 13-Feb-2024 1449 TERRY HUGHES [x] YES [ ] NO resting comfortably. lines secure 13-Feb-2024 1450 TERRY HUGHES [x] YES [ ] NO no s/s of distress lines secure 13-Feb-2024 1508 CURT JEONG I [x] YES [ ] NO Patient is stable at this time. 13-Feb-2024 1508 CURT JEONG I [ ] YES [x] NO 13-Feb-2024 1526 ROSA ISELA JEONGJono Yu [x] YES [ ] NO No c/o discomfort at this time. 13-Feb-2024 TERRY HUGHES [x] YES [ ] NO HTN. asymptomatic. recheck 13-Feb-2024 TERRY HUGHES [x] YES [ ] NO No s/s of distress. watching tv. stable 13-Feb-2024 1610 ADENIKECURT I [ ] YES [x] NO Access visble 13-Feb-2024 ROSA ISLEA JEONGJono Yu [x] YES [ ] NO Watching tv and complaint free. 13-Feb-2024 1641 ROSA ISELA JEONGE I [x] YES [ ] NO 13-Feb-2024 ROSA ISELA JEONGE I [x] YES [ ] NO Tx complete 13-Feb-2024 TERRY HUGHES [ ] YES [x] NO = Medication Log Medication Log Start Date/Time: 13-Feb-2024 Medication: Time: 1305 Nurse: TERRY HUGHES 2nd program professional: Medication/Blood: LIDOCAINE 2.5/PRILOCAINE 2.5% CREAM Dosage/Units: Not given Route: Unused Amount: 0.00 IV Flush(mL): Admin Comments: Reason Not Given: Medication: Time: 1305 Nurse: TERRY HUGHES 2nd program professional: Medication/Blood: IRON SUCROSE 20MG/ML INJ Dosage/Units: 100.00 mg Route: IV PUSH Unused Amount: 0.00 IV Flush(mL): Admin Comments: [id number] Reason Not Given: Medication: Time: 1307 Nurse: TERRY HUGHES program professional: Medication/Blood: DARBEPOETIN OMAR 40MCG/0.4ML SYR Dosage/Units: 40.00 mcg Route: IV PUSH Unused Amount: 0.00 IV Flush(mL): Admin Comments: [id number] Reason Not Given: Medication: Time: 1308 Nurse: TERRY HUGHES 2nd program professional: Medication/Blood: PARICALCITOL 2MCG/ML SOLN INJ Dosage/Units: 2.00 mcg Route: IV PUSH Unused Amount: 0.00 IV Flush(mL): Admin Comments: [id number] Reason Not Given: = Events Log === Time Resolved Complication Comments Author Brigitte Spent [place] Notified Ack' george Nurse = Postdialysis == Clotted: [ ] YES [x] NO Infiltrated: [ ] YES [x] NO Extra Treatment: [ ] YES [x] NO Procedure: Daily dialysis treatment Stop Date/Time: 13-Feb-2024 Dialysis Time(hrs): 4:00 Staff Off: CURT JEONG I Effective Time(hrs): Resp Caregiver: Departure Time: 172 By/With: transporter Mode: wheelchair Visit Disposition: Discharged Home (private dwelling, not an institution, no support services) Patient Sent To: Pain Acuity: Type: Location Measures Measures Measures Weights Measured Wt.(kg): 102.60 Prosthesis Wt.(kg): Wheelchair Wt(kg): Post Dialysis Wt(kg): 102.60 Target Weight(kg): 0.00 Target UF(kg): 0.50 Removed Wt(kg): 0.70 Fluid Removed(kg): 0.92 Effective UFR (kg/hr:ml/kg/hr): 0.17 : 1.7 Dialysate Used(L): 144.60 Patient Status Temp(C): 97.90 Resp: 18 Standing BP: 171/78 Standing Pulse: 60 Sitting BP: 163/78 Sitting Pulse: 62 Lowest BP: 141/77 BV Processed: Heparin Total Ordered: 0.00 Total Infused: Left in Syringe: Verified At: By: 2nd program professional: By: Fluid Intake Total Ingested(kg): Total HDF Administered(kg): Avg HDF(kg/hr): Hematocrit(%): Hemoglobin(mg/dL): KT/V: Relative Blood Volume(%): Final Effective Ionic Dialysance: Dialyzer Post Dial Rating: Streaked-few f Acid Disinfect: 1705 Chemical Cycle Start At: Heat Cycle Start At: Patient Condition: 13-Feb-2024 1706 CURT JEONG I Alert & oriented, Treatment tolerated without complication, Discharged via wheelchair Nursing Assessment: 13-Feb-2024 1713 TERRY HUGHES ####################### ATOMIC WELDER POST-ASSESSMENT Time of assessment [ 1714 MENTAL STATUS: [x ]Alert & Oriented x [...] LE [ ]Left LE [ ]Right LE ########################### ## Tolerated tx well. Stable at Tx end. Ambulates out of unit without difficulty. #################### Acknowledged On: 13-Feb-2024 Acknowledged By: TERRY HUGHES R = Preparation === Station: Chair 01 Machine #: C - 11 MACHINE DISINFECTION Acid Cycle: 13-Feb-2024 Heat Cycle: 03-Feb-2024 Chemical Cycle: 12-Feb-2024 Disinfect Clear Status: 13-Feb-2024 1200 MACHINE CHECKS Original All Steps Completed: [x] YES [ ] NO Alarm Test Complete: 13-Feb-2024 1200 Alarms Audible: 13-Feb-2024 1200 Checked prescription: 13-Feb-2024 1200 Checked conductivity: 13-Feb-2024 1200 Double checked 13-Feb-2024 121 Patient identified: 13-Feb-2024 1244 prescription: Time Out: 13-Feb-2024 Conductivity: 13.80 Calcium: 2.5 Dialysate Temperature: 37.00 Potassium: 2 Bicarb: 40 Reading confirmation: 13-Feb-2024 Conductivity: 13.80 pH: 7.10 Replacement All Steps Completed: [x] YES [ ] NO Alarm Test Complete: 13-Feb-2024 1200 Alarms Audible: 13-Feb-2024 1200 Checked prescription: 13-Feb-2024 1200 Checked conductivity: 13-Feb-2024 1200 Double checked 13-Feb-2024 1211 Patient identified: 13-Feb-2024 1244 prescription: Time Out: 13-Feb-2024 Conductivity: 13.80 K+: 2 pH: 7.10 Ca+: 2.5 Dialysate Temp (C): 37.00 = Material ====== MATERIAL / DIALYZER REUSE Start Machine (#): C - 11 Time Failed: Replacement Machine: Replaced time: Reason: Dialyzer Label: Nipro Elisio - 25H Reprocessed #: Dialyzer Lot: Pre-dialysis Dialyzer Rating: Check 1: 13-Feb-2024 1200 CURT JEONG I Check 2: 13-Feb-2024 121 TERRY HUGHES [id number] TERRY HUGHES DISCHARGE RN REGISTERED NURSE Signed: 02/13/2024 17:38 TERRY HUGHES [facility]
--- OUTSIDE RECORDS SUMMARY | 2024-12-05 00:24 | XMS_ITS | Encounter Summary ---
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 Date/Time Encounter Type Encounter Description Reason Provider Source February 11, 2024 12:30 PM OFFICE O/P EST LOW 20 MIN ASSISTED HEMODIALYSIS ICD-10-CM N18.6 End stage renal disease GISELE PURCELL Jono Encounter Template Text not used by [place] Assessments - Encounter Diagnoses This section includes the primary and secondary diagnoses documented for the Encounter. Date/Time Primary/Secondary Diagnosis Diagnosis Name Provider Source February 11, 2024 03:13 PM PRIMARY End stage renal disease LIAN PURCELL [facility] Plan of Treatment: Future Appointments (+ 6 months) and Future Tests (+/- 45 days) The Plan of Treatment section includes future care activities for the patient from all [place] [facility] This section includes future appointments and future orders which are active, pending or scheduled. Future Appointments This section includes appointments that were scheduled to occur 6 months from the date of the Encounter, up to a maximum of 20 appointments. The data comes from all [place] treatment facilities. Appointment Date/Time Appointment Type Appointme nt Facility Name February 13, 2024 12:30 PM AMBULATORY - MEDICINE [facility] February 15, 2024 08:00 AM AMBULATORY - NONE [facility] February 15, 2024 08:30 AM AMBULATORY - MEDICINE [facility] Apr 05, 2024 09:30 AM AMBULATORY - MEDICINE [facility] Apr 27, 2024 07:30 AM AMBULATORY - SURGERY [facility] May 02, 2024 08:00 AM AMBULATORY - NONE [facility] May 02, 2024 08:30 AM AMBULATORY - MEDICINE [facility] May 16, 2024 02:00 PM AMBULATORY - MEDICINE [facility] Jul 12, 2024 08:00 AM AMBULATORY - NONE [facility] Jul 12, 2024 08:30 AM AMBULATORY - MEDICINE [facility] Lab Results: +/- 30 days of the encounter This section includes the Chemistry and Hematology Lab Results on record with [place] for the patient. Radiology Reports and Pathology Reports are provided separately, in subsequent sections. Lab Results This section contains the Chemistry/Hematology Results that were resulted 30 days before or 30 daysafter the date of the Encounter. Date/Time Source Result Type Result - Unit Interpretation Reference Range Comment Feb 09, 2024 12:40 PM [facility] HEP B CORE AB TOTAL. (STL) Specimen Type: SERUM No comment entered. Ordering Provider: CHENG PURCELL Report Released Date/Time: Feb 09, 2024 10:43 AM Reporting Lab: [address] [phone] Performing Lab: [address] [address] HEP B CORE AB TOTAL. (STL) Nonreactive Nonreactive Feb 09, 2024 12:40 PM [facility] HEP HB S Ag ([place]) (STL) Specimen Type: SERUM No comment entered. Ordering Provider: CHENG PURCELL Report Released Date/Time: Feb 09, 2024 10:43 AM Reporting Lab: [address] [address] Performing Lab: [address] [address] HEP HB S Ag ([place]) (STL) Nonreactive Nonreactive Feb 09, 2024 12:40 PM [facility] HEPATITIS B SURFACE AB PNL Specimen Type: SERUM No comment entered. Ordering Provider: CHNEG PURCELL Report Released Date/Time: Feb 09, 2024 10:43 AM Reporting Lab: [address] [address] Performing Lab: [address] [address] HEP B Surface Ab-HBsAB (L) REACTIVE m[IU]/mL Nonreactive HEP Bs AB-QUANT (L) 79.36 m[IU]/mL Feb 09, 2024 12:40 PM [facility] RENAL PANEL Specimen Type: PLASMA Comment: No hemolysis noted. Ordering Provider: CHENG PURCELL Report Released Date/Time: Feb 04, 2024 03:20 PM Reporting Lab: [address] [address] Performing Lab: [address] [address] CREATININE 7.69 mg/dL H 0.7-1.3 UREA NITROGEN 52.2 mg/dL H 9.0-25.0 GLUCOSE 147 mg/dL H 72-99 SODIUM 142 meq/L 136-145 POTASSIUM 4.1 meq/L 3.5-5 CHLORIDE 107 meq/L 98-107 CARBON DIOXIDE 22 meq/L 22-31 CALCIUM 10.2 mg/dL 8.4-10.4 PHOSPHOROUS 3.7 mg/dL 2.3-4.7 ALBUMIN 3.7 g/dL 3.4-5 EGFR (CKD-EPI 2020) 7.1 LL >60 Feb 09, 2024 12:40 PM [facility] CBC Specimen Type: BLOOD No comment entered. Ordering Provider: CHENG PURCELL Report Released Date/Time: Feb 04, 2024 03:20 PM Reporting Lab: [address] [address] Performing Lab: [address] [address] WBC 9.7 10*3/uL 3.6-11.2 RBC 3.09 10*6/uL [...] 0.00-0.20 Feb 04, 2024 05:00 PM [facility] URR-POST PANEL (STL) Specimen Type: PLASMA No comment entered. Ordering Provider: CHENG PURCELL Report Released Date/Time: Feb 04, 2024 01:42 PM Reporting Lab: [address] [address] Performing Lab: [facility] [address] [place] [phone] BUN-POST DIALYSIS 16.2 mg/dL 9.0-25.0 URR (STL) 70.4 67.0-100.0 Feb 04, 2024 12:45 PM [facility] RENAL PANEL Specimen Type: PLASMA Comment: No hemolysis noted. Ordering Provider: CHENG PURCELL Report Released Date/Time: Feb 04, 2024 01:42 PM Reporting Lab: [address] [address] Performing Lab: [address] [address] CREATININE 6.97 mg/dL H 0.7-1.3 UREA NITROGEN 54.7 mg/dL H 9.0-25.0 GLUCOSE 134 mg/dL H 72-99 SODIUM 142 meq/L 136-145 POTASSIUM 4.0 meq/L 3.5-5 CHLORIDE 105 meq/L 98-107 CARBON DIOXIDE 24 meq/L 22-31 CALCIUM 9.7 mg/dL 8.4-10.4 PHOSPHOROUS 4.8 mg/dL H 2.3-4.7 ALBUMIN 3.9 g/dL 3.4-5 EGFR (CKD-EPI 2020) 7.9 LL >60 Feb 02, 2024 04:30 PM [facility] URR-POST PANEL (STL) Specimen Type: PLASMA No comment entered. Ordering Provider: CHENG PURCELL Report Released Date/Time: Feb 02, 2024 03:39 PM Reporting Lab: [address] [address] Performing Lab: [address] [address] BUN-POST DIALYSIS 22.9 mg/dL 9.0-25.0 URR (STL) 60.9 L 67.0-100.0 Feb 02, 2024 11:50 AM [facility] RENAL PANEL Specimen Type: PLASMA Comment: No hemolysis noted. Ordering Provider: CHENG PURCELL Report Released Date/Time: Feb 02, 2024 07:35 AM Reporting Lab: [address] [address] Performing Lab: [address] [address] CREATININE 8.34 mg/dL H 0.7-1.3 UREA NITROGEN 58.6 mg/dL H 9.0-25.0 GLUCOSE 169 mg/dL H 72-99 SODIUM 142 meq/L 136-145 POTASSIUM 4.6 meq/L 3.5-5 CHLORIDE 111 meq/L H 98-107 CARBON DIOXIDE 20 meq/L L 22-31 CALCIUM 9.2 mg/dL 8.4-10.4 PHOSPHOROUS 3.6 mg/dL 2.3-4.7 ALBUMIN 3.7 g/dL 3.4-5 EGFR (CKD-EPI 2020) 6.4 LL >60 Feb 01, 2024 11:00 PM [facility] 24H UR CHEM PANEL (STL) Specimen Type: 24-HOUR URINE No comment entered. Ordering Provider: CHENG PURCELL Report Released Date/Time: Jan 28, 2024 04:55 PM Reporting Lab: [address] [address] Performing Lab: [address] [address] VOLUME 3289 mL SODIUM 24-HOUR URINE 226.941 H 40-220 POTASSIUM 24-HOUR URINE 35.8501 25-125 CHLORIDE 24-HOUR URINE 171.028 110-250 PROTEIN 24-HOUR URINE 1986.556 H 0-299.9 CREATININE 24-HOUR URINE [phone] Jan 28, 2024 05:29 PM [facility] CBC Specimen Type: BLOOD No comment entered. Ordering Provider: CHENG PURCELL Report Released Date/Time: Jan 28, 2024 05:07 PM Reporting Lab: [facility] [address] [facility] [address] Performing Lab: [facility] [address] [facility] [address] WBC 8.9 10*3/uL 3.6-11.2 RBC 2.96 10*6/uL [...] 0.00-0.20 Jan 26, 2024 01:00 PM [facility] PTH, INTACT (STL) Specimen Type: SERUM No comment entered. Ordering Provider: CHENG PURCELL Report Released Date/Time: Jan 21, 2024 03:14 PM Reporting Lab: [facility] [address] [facility] [address] Performing Lab: [address] [address] PTH, INTACT (STL) 141.40 pg/mL H 8.7-77.7 Jan 26, 2024 01:00 PM [facility] IRON/TIBC PROFILE Specimen Type: SERUM No comment entered. Ordering Provider: CHENG PURCELL Report Released Date/Time: Jan 21, 2024 03:14 PM Reporting Lab: [address] [address] Performing Lab: [address] [address] TIBC 225 ug/dL L 250-450 TRANSFERRIN 180 mg/dL 163-344 IRON SATURATION 23 20-50 IRON 52 ug/dL L 65-175 Jan 26, 2024 01:00 PM [facility] FERRITIN Specimen Type: SERUM No comment entered. Ordering Provider: CHENG PURCELL Report Released Date/Time: Jan 21, 2024 03:14 PM Reporting Lab: [address] [address] Performing Lab: [address] [address] FERRITIN 118.78 ng/mL 22-275 Jan 26, 2024 01:00 PM [facility] RENAL PANEL Specimen Type: PLASMA Comment: No hemolysis noted. Ordering Provider: CHENG PURCELL Report Released Date/Time: Jan 21, 2024 03:14 PM Reporting Lab: [address] [address] Performing Lab: [address] [address] CREATININE 8.25 mg/dL H 0.7-1.3 UREA NITROGEN 63.1 mg/dL H 9.0-25.0 GLUCOSE 157 mg/dL H 72-99 SODIUM 137 meq/L 136-145 POTASSIUM 4.2 meq/L 3.5-5 CHLORIDE 100 meq/L 98-107 CARBON DIOXIDE 26 meq/L 22-31 CALCIUM 9.6 mg/dL 8.4-10.4 PHOSPHOROUS 4.9 mg/dL H 2.3-4.7 ALBUMIN 3.7 g/dL 3.4-5 EGFR (CKD-EPI 2020) 6.5 LL >60 Jan 26, 2024 01:00 PM [facility] CBC Specimen Type: BLOOD No comment entered. Ordering Provider: CHENG PURCELL Report Released Date/Time: Jan 21, 2024 03:14 PM Reporting Lab: [facility] [address] [facility] [address] Performing Lab: [facility] [place] [facility] [address] WBC 7.8 10*3/uL 3.6-11.2 RBC 2.95 10*6/uL [...] 0.00-0.20 Jan 21, 2024 12:55 PM [facility] PT/INR NEW ([facility]) Specimen Type: PLASMA No comment entered. Ordering Provider: CHENG PURCELL Report Released Date/Time: Jan 21, 2024 12:43 PM Reporting Lab: [address] [address] Performing Lab: [address] [address] PROTIME 15.9 s H 9.4-12.5 INR VALUE 1.4 {INR} Jan 21, 2024 12:55 PM [facility] RENAL PANEL Specimen Type: PLASMA Comment: No hemolysis noted. Ordering Provider: CHENG PURCELL Report Released Date/Time: Jan 21, 2024 12:41 PM Reporting Lab: [facility] [address] [facility] [address] Performing Lab: [address] [address] CREATININE 8.11 mg/dL H 0.7-1.3 UREA NITROGEN 82.6 mg/dL H 9.0-25.0 GLUCOSE 114 mg/dL H 72-99 SODIUM 139 meq/L 136-145 POTASSIUM 5.1 meq/L H 3.5-5 CHLORIDE 109 meq/L H 98-107 CARBON DIOXIDE 19 meq/L L 22-31 CALCIUM 9.3 mg/dL 8.4-10.4 PHOSPHOROUS 4.1 mg/dL 2.3-4.7 ALBUMIN 3.8 g/dL 3.4-5 EGFR (CKD-EPI 2020) 6.6 LL >60 Jan 14, 2024 11:55 AM [facility] RENAL PANEL Specimen Type: PLASMA Comment: No hemolysis noted. Ordering Provider: CHENG PURCELL Report Released Date/Time: Jan 13, 2024 07:58 AM Reporting Lab: [place] [id number] [facility] [address] Performing Lab: [address] [address] CREATININE 8.05 mg/dL H 0.7-1.3 UREA NITROGEN [...] PM 98.3 58 148/66 18 226.64 [address] [facility] Social History: Smoking Status (Most current) and Tobacco Use (All prior to encounter date) This section includes the most current, and the historical, smoking and tobacco- related health factors from the [place] facility where the Encounter took place. Current Smoking Status This section includes the most current smoking, or tobacco-related health factor, from the [place] facility where the Encounter took place. Date/Time Current Smoking Status Comment Ester ity Jun 21, 2023 01:14 PM ORYX ADMIT TOBACCO SCREEN NO [facility] Tobacco Use History This section includes a history of the smoking, or tobacco-related health factors, that were collected on or before the date of the Encounter. The data comes from the [place] facility where the Encounter took place. Date/Time Smoking Status/Tobacco Use Comment F acility Dec 12, 2022 04:00 PM ORYX ADMIT TOBACCO SCREEN NO [facility] Jun 25, 2022 03:24 PM VA-TOBACCO FORMER USER [facility] Jun 25, 2022 03:24 PM VA-TOBACCO QUIT 15 YRS OR MORE [facility] Dec 23, 2021 04:59 PM ORYX ADMIT TOBACCO SCREEN REFUSED [facility] May 24, 2020 11:27 PM ORYX ADMIT TOBACCO SCREEN NO [facility] Dec 12, 2019 10:24 AM VA-TOBACCO FORMER USER [facility] Dec 12, 2019 10:24 AM VA-TOBACCO QUIT 15 YRS OR MORE [facility] Aug 03, 2019 02:11 AM ORYX ADMIT TOBACCO SCREEN REFUSED [facility] Oct 12, 2018 01:14 AM QUIT TOBACCO >7 YEARS AGO [facility] Oct 11, 2018 03:33 PM ORYX ADMIT TOBACCO SCREEN NO [facility] Sep 07, 2018 09:13 PM ORYX ADMIT TOBACCO SCREEN NO [facility] Sep 07, 2018 07:52 PM QUIT TOBACCO >7 YEARS AGO [facility] Advance Directives: All historical and current Section Date Range: From patient's date of to the date document was created. This section includes ALL of a patient's completed or amended [place] Advance and Rescinded Directives. The entries below indicate that a directive exists for the patient, but an actual copy is not included with this document. The data comes from all [place] facilities. Date Advance Directives Provider Source Dec 17, 2022 ADVANCE DIRECTIVE SHAINABIJAN B S TayManjinder [facility] Feb 09, 2020 ADVANCE DIRECTIVE DISCUSSION MELY LUCIANO [facility] Feb 02, 2018 ADVANCE DIRECTIVE BEAU ALTAMIRANO [facility] Nov 29, 2006 ADVANCE DIRECTIVE MARELY CHACON [facility] Encounter Notes: All associated encounter notes This section contains the clinical notes associated to the Encounter. Date/Time Encounter Note(s) Provider Source February 11, 2024 02:31 PM DIALYSIS NURSING N OTE: LOCAL TITLE: DIALYSIS NOTE STANDARD TITLE: DIALYSIS NURSING NOTE DATE OF NOTE: FEBRUARY 11, 2024@14:31 ENTRY DATE: FEBRUARY 11, 2024@14:32:18 AUTHOR: MARTHA PURCELL EXP COSIGNER: URGENCY: STATUS: COMPLETED DIALYSIS NOTE Has ADDENDA Weekly Dialysis Rounding Note: Patient was seen in dialysis unit for weekly dialysis rounds. He denied any CP, sob, cramping or lightheadedness. Expressed feeling more settled on dialysis and tolerating avf cannulation much better. He will continue to use emla cream as instructed for avf cannulation. Vital signs: bp 148/66, hr 58, Temp 98.3, R 18, weight 102.8 Exam: Lungs CTAB, RRR, s1s2, abd soft, +BS, no edema Access: LUE AVF +thrill, +bruit, A/P: ESRD pt on HD doing well overall with dialysis. LUE AVF working well no issues with cannulation and cannulation protocol completed. Intradialytic fluids gains between 1-2kg. Will establish dry weight at 102.5, preweight today was 102.8 and he has no edema. Phos slightly high on most recent lab at 4.9 not currently on any binder, counselled to limit foods high in phos, will need phos binder if continues to trend higher. Other electrolytes at goal. [place] is accepted to a dialysis unit in the community, will start next week Thursday. #Dialysis adequacy URR at goal was 70.4 on most recent lab, at goal will continue current dialysis time. #Anemia: Hgb 9.4 on most recent lab and improving will continue current medication regimen - MELY and iv iron loading HTN: bp readings at goal, will continue current bp regimen -nifedipine 90mg and carvedilol 25mg bid. #acid base- bicarb 24 at goal, will continue high bicarb bath with HD /edwar/ KIMBERLY FLORESP- NURSE PRACTITIONER Signed: 02/11/2024 15:14 Receipt Acknowledged By: 02/15/2024 08:47 /edwar/ MERY TREJO MD STAFF PHYSICIAN,NEPHROLOGY 02/24/2024 ADDENDUM STATUS: COMPLETED was not here for scheduled appt today, called on the phone to follow up on his dialysis in the community but was unable to reach him on the phone. HIPAA compliant message left for him. /edwar/ KIMBERLY ROBBINS-ASHLEY NURSE PRACTITIONER Signed: 02/24/2024 12:13 BRYAN PURCELL [facility]
--- OUTSIDE RECORDS SUMMARY | 2024-12-05 00:24 | XMS_ITS | Encounter Summary ---
Author Name [facility] [facility] [place] Address [address] [place] [address] Care Team Providers Care Injection Wax Molder Name Role Phone ERIKA DEE Primary Care [...] PART A Jul 12, 2019 PART A [id number] PRASANNA KATZ PATIENT MEDICARE (WNR) MEDICARE (M) PART A Jul 12, 2019 PART A [id number] [phone] PRASANNA KATZ PATIENT Selected Encounter This section includes the information on record at [place] for the Encounter. Date/Time Encounter Type Encounter Description Reason Provider Source Jan 28, 2024 04:50 PM ESRD SRV 4 VISITS P MO 20+ ASSISTED HEMODIALYSIS ICD-10-CM P19.9 Metabolic acidemia in , unspecified CHENG PURCELL Encounter Template Text not used by [place] Assessments - Encounter Diagnoses This section includes the primary and secondary diagnoses documented for the Encounter. 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 This section includes future appointments and future orders which are active, pending or scheduled. Future Appointments This section includes appointments that were scheduled to occur 6 months from the date of the Encounter, up to a maximum of 20 appointments. The data comes from all [place] treatment facilities. Appointment Date/Time Appointment Type Appointme nt Facility Name Feb 02, 2024 12:30 PM AMBULATORY - MEDICINE [facility] Feb 04, 2024 12:15 PM AMBULATORY - MEDICINE [facility] Feb 06, 2024 12:30 PM AMBULATORY - MEDICINE [facility] Feb 09, 2024 12:30 PM AMBULATORY - MEDICINE [facility] February 11, 2024 12:30 PM AMBULATORY - MEDICINE [facility] February 13, 2024 12:30 PM AMBULATORY - MEDICINE [facility] February 15, 2024 08:00 AM AMBULATORY - NONE [facility] February 15, 2024 08:30 AM AMBULATORY - MEDICINE [facility] Apr 05, 2024 09:30 AM AMBULATORY - MEDICINE [facility] Apr 27, 2024 07:30 AM AMBULATORY - SURGERY [facility] May 02, 2024 08:00 AM AMBULATORY - NONE [facility] May 02, 2024 08:30 AM AMBULATORY - MEDICINE [facility] May 16, 2024 02:00 PM AMBULATORY - MEDICINE [facility] Jul 12, 2024 08:00 AM AMBULATORY - NONE [facility] Jul 12, 2024 08:30 AM AMBULATORY - MEDICINE [facility] Lab Results: +/- 30 days of the encounter This section includes the Chemistry and Hematology Lab Results on record with [place] for the patient. Radiology Reports and Pathology Reports are provided separately, in subsequent sections. Lab Results This section contains the Chemistry/Hematology Results that were resulted 30 days before or 30 daysafter the date of the Encounter. Date/Time Source Result Type Result - Unit Interpretation Reference Range Comment Feb 09, 2024 12:40 PM [facility] HEP B CORE AB TOTAL. (STL) Specimen Type: SERUM No comment entered. Ordering Provider: KYLER PURCELL Report Released Date/Time: Feb 09, 2024 10:43 AM Reporting Lab: [address] [address] Performing Lab: [address] [address] HEP B CORE AB TOTAL. (STL) Nonreactive Nonreactive Feb 09, 2024 12:40 PM [facility] HEP HB S Ag ([place]) (STL) Specimen Type: SERUM No comment entered. Ordering Provider: KYLER PURCELL Report Released Date/Time: Feb 09, 2024 10:43 AM Reporting Lab: [address] [address] Performing Lab: [address] [address] HEP HB S Ag ([place]) (STL) Nonreactive Nonreactive Feb 09, 2024 12:40 PM [facility] HEPATITIS B SURFACE AB PNL Specimen Type: SERUM No comment entered. Ordering Provider: KYLER PURCELL Report Released Date/Time: Feb 09, 2024 10:43 AM Reporting Lab: [address] [address] Performing Lab: [place] [id number] [facility] [address] HEP B Surface Ab-HBsAB (L) REACTIVE m[IU]/mL Nonreactive HEP Bs AB-QUANT (STL) 79.36 m[IU]/mL Feb 09, 2024 12:40 PM [facility] RENAL PANEL Specimen Type: PLASMA Comment: No hemolysis noted. Ordering Provider: KYLER PURCELL Report Released Date/Time: Feb 04, 2024 03:20 PM Reporting Lab: [facility] [address] [facility] [address] Performing Lab: [address] [address] CREATININE 7.69 mg/dL H 0.7-1.3 UREA NITROGEN 52.2 mg/dL H 9.0-25.0 GLUCOSE 147 mg/dL H 72-99 SODIUM 142 meq/L 136-145 POTASSIUM 4.1 meq/L 3.5-5 CHLORIDE 107 meq/L 98-107 CARBON DIOXIDE 22 meq/L 22-31 CALCIUM 10.2 mg/dL 8.4-10.4 PHOSPHOROUS 3.7 mg/dL 2.3-4.7 ALBUMIN 3.7 g/dL 3.4-5 EGFR (CKD-EPI 2020) 7.1 LL >60 Feb 09, 2024 12:40 PM [facility] CBC Specimen Type: BLOOD No comment entered. Ordering Provider: KYLER PURCELL Report Released Date/Time: Feb 04, 2024 03:20 PM Reporting Lab: [place] [id number] [facility] [address] Performing Lab: [address] [address] WBC 9.7 10*3/uL 3.6-11.2 RBC 3.09 10*6/uL [...] 0.00-0.20 Feb 04, 2024 05:00 PM [facility] URR-POST PANEL (STL) Specimen Type: PLASMA No comment entered. Ordering Provider: KYLER PURCELL Report Released Date/Time: Feb 04, 2024 01:42 PM Reporting Lab: [address] [address] Performing Lab: [address] [address] BUN-POST DIALYSIS 16.2 mg/dL 9.0-25.0 URR (STL) 70.4 67.0-100.0 Feb 04, 2024 12:45 PM [facility] RENAL PANEL Specimen Type: PLASMA Comment: No hemolysis noted. Ordering Provider: KYLER PURCELL Report Released Date/Time: Feb 04, 2024 01:42 PM Reporting Lab: [address] [address] Performing Lab: [address] [address] CREATININE 6.97 mg/dL H 0.7-1.3 UREA NITROGEN 54.7 mg/dL H 9.0-25.0 GLUCOSE 134 mg/dL H 72-99 SODIUM 142 meq/L 136-145 POTASSIUM 4.0 meq/L 3.5-5 CHLORIDE 105 meq/L 98-107 CARBON DIOXIDE 24 meq/L 22-31 CALCIUM 9.7 mg/dL 8.4-10.4 PHOSPHOROUS 4.8 mg/dL H 2.3-4.7 ALBUMIN 3.9 g/dL 3.4-5 EGFR (CKD-EPI 2020) 7.9 LL >60 Feb 02, 2024 04:30 PM [facility] URR-POST PANEL (STL) Specimen Type: PLASMA No comment entered. Ordering Provider: KYLER PURCELL Report Released Date/Time: Feb 02, 2024 03:39 PM Reporting Lab: [address] [address] Performing Lab: [address] [address] BUN-POST DIALYSIS 22.9 mg/dL 9.0-25.0 URR (STL) 60.9 L 67.0-100.0 Feb 02, 2024 11:50 AM [facility] RENAL PANEL Specimen Type: PLASMA Comment: No hemolysis noted. Ordering Provider: KYLER PURCELL Report Released Date/Time: Feb 02, 2024 07:35 AM Reporting Lab: [address] [address] Performing Lab: [address] [address] CREATININE 8.34 mg/dL H 0.7-1.3 UREA NITROGEN 58.6 mg/dL H 9.0-25.0 GLUCOSE 169 mg/dL H 72-99 SODIUM 142 meq/L 136-145 POTASSIUM 4.6 meq/L 3.5-5 CHLORIDE 111 meq/L H 98-107 CARBON DIOXIDE 20 meq/L L 22-31 CALCIUM 9.2 mg/dL 8.4-10.4 PHOSPHOROUS 3.6 mg/dL 2.3-4.7 ALBUMIN 3.7 g/dL 3.4-5 EGFR (CKD-EPI 2020) 6.4 LL >60 Feb 01, 2024 11:00 PM [facility] 24H UR CHEM PANEL (STL) Specimen Type: 24-HOUR URINE No comment entered. Ordering Provider: KYLER PURCELL Report Released Date/Time: Jan 28, 2024 04:55 PM Reporting Lab: [address] [address] Performing Lab: [address] [address] VOLUME 3289 mL SODIUM 24-HOUR URINE 226.941 H 40-220 POTASSIUM 24-HOUR URINE 35.8501 25-125 CHLORIDE 24-HOUR URINE 171.028 110-250 PROTEIN 24-HOUR URINE 1986.556 H 0-299.9 CREATININE 24-HOUR URINE [phone] Jan 28, 2024 05:29 PM [facility] CBC Specimen Type: BLOOD No comment entered. Ordering Provider: KYLER PURCELL Report Released Date/Time: Jan 28, 2024 05:07 PM Reporting Lab: [address] [address] Performing Lab: [address] [address] WBC 8.9 10*3/uL 3.6-11.2 RBC 2.96 10*6/uL [...] 0.00-0.20 Jan 26, 2024 01:00 PM [facility] PTH, INTACT (STL) Specimen Type: SERUM No comment entered. Ordering Provider: KYLER PURCELL Report Released Date/Time: Jan 21, 2024 03:14 PM Reporting Lab: [address] [address] Performing Lab: [address] [address] PTH, INTACT (STL) 141.40 pg/mL H 8.7-77.7 Jan 26, 2024 01:00 PM [facility] RENAL PANEL Specimen Type: PLASMA Comment: No hemolysis noted. Ordering Provider: KYLER PURCELL Report Released Date/Time: Jan 21, 2024 03:14 PM Reporting Lab: [address] [address] Performing Lab: [address] [address] CREATININE 8.25 mg/dL H 0.7-1.3 UREA NITROGEN 63.1 mg/dL H 9.0-25.0 GLUCOSE 157 mg/dL H 72-99 SODIUM 137 meq/L 136-145 POTASSIUM 4.2 meq/L 3.5-5 CHLORIDE 100 meq/L 98-107 CARBON DIOXIDE 26 meq/L 22-31 CALCIUM 9.6 mg/dL 8.4-10.4 PHOSPHOROUS 4.9 mg/dL H 2.3-4.7 ALBUMIN 3.7 g/dL 3.4-5 EGFR (CKD-EPI 2020) 6.5 LL >60 Jan 26, 2024 01:00 PM [facility] IRON/TIBC PROFILE Specimen Type: SERUM No comment entered. Ordering Provider: KYLER PURCELL Report Released Date/Time: Jan 21, 2024 03:14 PM Reporting Lab: [address] [address] Performing Lab: [address] [address] TIBC 225 ug/dL L 250-450 TRANSFERRIN 180 mg/dL 163-344 IRON SATURATION 23 20-50 IRON 52 ug/dL L 65-175 Jan 26, 2024 01:00 PM [facility] FERRITIN Specimen Type: SERUM No comment entered. Ordering Provider: KYLER PURCELL Report Released Date/Time: Jan 21, 2024 03:14 PM Reporting Lab: [facility] [address] [facility] [address] Performing Lab: [facility] [address] [facility] [address] FERRITIN 118.78 ng/mL 22-275 Jan 26, 2024 01:00 PM [facility] CBC Specimen Type: BLOOD No comment entered. Ordering Provider: KYLER PURCELL Report Released Date/Time: Jan 21, 2024 03:14 PM Reporting Lab: [facility] [address] [facility] [address] Performing Lab: [facility] [address] [facility] [address] WBC 7.8 10*3/uL 3.6-11.2 RBC 2.95 10*6/uL [...] 0.00-0.20 Jan 21, 2024 12:55 PM [facility] PT/INR [facility] Specimen Type: PLASMA No comment entered. Ordering Provider: KYLER PURCELL Report Released Date/Time: Jan 21, 2024 12:43 PM Reporting Lab: [address] [address] Performing Lab: [address] [address] PROTIME 15.9 s H 9.4-12.5 INR VALUE 1.4 {INR} Jan 21, 2024 12:55 PM [facility] RENAL PANEL Specimen Type: PLASMA Comment: No hemolysis noted. Ordering Provider: KYLER PURCELL Report Released Date/Time: Jan 21, 2024 12:41 PM Reporting Lab: [address] [address] Performing Lab: [address] [address] CREATININE 8.11 mg/dL H 0.7-1.3 UREA NITROGEN 82.6 mg/dL H 9.0-25.0 GLUCOSE 114 mg/dL H 72-99 SODIUM 139 meq/L 136-145 POTASSIUM 5.1 meq/L H 3.5-5 CHLORIDE 109 meq/L H 98-107 CARBON DIOXIDE 19 meq/L L 22-31 CALCIUM 9.3 mg/dL 8.4-10.4 PHOSPHOROUS 4.1 mg/dL 2.3-4.7 ALBUMIN 3.8 g/dL 3.4-5 EGFR (CKD-EPI 2020) 6.6 LL >60 Jan 14, 2024 11:55 AM [facility] RENAL PANEL Specimen Type: PLASMA Comment: No hemolysis noted. Ordering Provider: KYLER PURCELL Report Released Date/Time: Jan 13, 2024 07:58 AM Reporting Lab: [address] [address] Performing Lab: [place] [id number] [facility] [address] CREATININE 8.05 mg/dL H 0.7-1.3 UREA NITROGEN 70.7 mg/dL H 9.0-25.0 GLUCOSE 155 mg/dL H 72-99 SODIUM 140 meq/L 136-145 POTASSIUM 5.1 meq/L H 3.5-5 CHLORIDE 107 meq/L 98-107 CARBON DIOXIDE 21 meq/L L 22-31 CALCIUM 9.6 mg/dL 8.4-10.4 PHOSPHOROUS 4.8 mg/dL H 2.3-4.7 ALBUMIN 4.1 g/dL 3.4-5 EGFR (CKD-EPI 2020) 6.7 LL >60 Jan 11, 2024 11:36 AM [facility] GLUCOSE,BLOOD-poct (STL) Specimen Type: BLOOD Comment: Test Performed by: [id number] Meter #: [id number] Ordering Provider: LINO,MED Report Released Date/Time: Jan 11, 2024 11:50 AM Reporting Lab: [address] [address] Performing Lab: [address] [address] GLUCOSE,BLOOD- poct (STL) 106 mg/dL H 72-99 Jan 11, 2024 11:07 AM [facility] GLUCOSE,BLOOD-poct (STL) Specimen Type: BLOOD Comment: Test Performed by: [id number] Meter #: [id number] Ordering Provider: LINO,MED Report Released Date/Time: Jan 11, 2024 11:18 AM Reporting Lab: [place] [address] [facility] [address] Performing Lab: [address] [address] GLUCOSE,BLOOD- poct (STL) 109 mg/dL H 72-99 Jan 11, 2024 05:12 AM [facility] GLUCOSE,BLOOD-poct (STL) Specimen Type: BLOOD Comment: Test Performed by: [id number] Meter #: [id number] Ordering Provider: TWOD,MED Report Released Date/Time: Jan 11, 2024 05:25 AM Reporting Lab: [address] [address] Performing Lab: [place] [address] [facility] [address] GLUCOSE,BLOOD- poct (STL) 88 mg/dL 72-99 Jan 10, 2024 08:19 PM [facility] GLUCOSE,BLOOD-poct (STL) Specimen Type: BLOOD Comment: Test Performed by: [id number] Meter #: [id number] Ordering Provider: LIDIA HUYNH Report Released Date/Time: Jan 10, 2024 08:31 PM Reporting Lab: [address] [address] Performing Lab: [address] [address] GLUCOSE,BLOOD- poct (STL) 153 mg/dL H 72-Jan 10, 2024 04:15 PM [facility] GLUCOSE,BLOOD-poct (STL) Specimen Type: BLOOD Comment: Test Performed by: [id number] Meter #: [id number] Ordering Provider: LIDIA HUYNH Report Released Date/Time: Jan 10, 2024 05:05 PM Reporting Lab: [address] [address] Performing Lab: [address] [address] GLUCOSE,BLOOD- poct (STL) 84 mg/dL 72-99 Jan 10, 2024 11:31 AM [facility] GLUCOSE,BLOOD-poct (STL) Specimen Type: BLOOD Comment: Test Performed by: [id number] Meter #: [id number] Ordering Provider: LIDIA HUYNH Report Released Date/Time: Jan 10, 2024 12:03 PM Reporting Lab: [place] [address] [facility] [address] Performing Lab: [address] [address] GLUCOSE,BLOOD- poct (STL) 99 mg/dL 72-Jan 10, 2024 04:45 AM [facility] GLUCOSE,BLOOD-poct (STL) Specimen Type: BLOOD Comment: Test Performed by: [id number] Meter #: [id number] Ordering Provider: LIDIA HUYNH Report Released Date/Time: Jan 10, 2024 05:29 AM Reporting Lab: [place] [address] [facility] [address] Performing Lab: [place] [address] [facility] [address] GLUCOSE,BLOOD- poct (STL) 109 mg/dL H -Jan 09, 2024 08:08 PM [facility] GLUCOSE,BLOOD-poct (STL) Specimen Type: BLOOD Comment: Test Performed by: [id number] Meter #: [id number] Ordering Provider: LIDIA HUYNH Report Released Date/Time: Jan 09, 2024 08:28 PM Reporting Lab: [place] [address] [facility] [address] Performing Lab: [place] [address] [facility] [address] GLUCOSE,BLOOD- poct (STL) 110 mg/dL H -Jan 09, 2024 04:19 PM [facility] GLUCOSE,BLOOD-poct (STL) Specimen Type: BLOOD Comment: Test Performed by: [id number] Meter #: [id number] Ordering Provider: LIDIA HUYNH Report Released Date/Time: Jan 09, 2024 04:34 PM Reporting Lab: [place] [address] [facility] [address] Performing Lab: [place] [address] [facility] [address] GLUCOSE,BLOOD- poct (STL) 119 mg/dL H -Jan 09, 2024 02:30 PM [facility] MAGNESIUM Specimen Type: PLASMA Comment: No hemolysis noted. Ordering Provider: TATI ZAVALA Report Released Date/Time: Jan 09, 2024 07:51 AM Reporting Lab: [facility] [address] [facility] [address] Performing Lab: [facility] [address] [facility] [address] MAGNESIUM 1.6 mg/dL 1.6-2.6 Jan 09, 2024 02:30 PM [facility] RENAL PANEL Specimen Type: PLASMA Comment: No hemolysis noted. Ordering Provider: TATI ZAVALA Report Released Date/Time: Jan 09, 2024 07:51 AM Reporting Lab: [place] [address] [facility] [address] Performing Lab: [place] [address] [facility] [address] CREATININE 5.13 mg/dL H 0.7-1.3 UREA NITROGEN 46.2 mg/dL H 9.0-25.0 GLUCOSE 177 mg/dL H 72-99 SODIUM 136 meq/L 136-145 POTASSIUM 4.0 meq/L 3.5-5 CHLORIDE 101 meq/L 98-107 CARBON DIOXIDE 23 meq/L 22-31 CALCIUM 8.6 mg/dL 8.4-10.4 PHOSPHOROUS 2.7 mg/dL 2.3-4.7 ALBUMIN 3.6 g/dL 3.4-5 EGFR (CKD-EPI 2020) 11.5 LL >60 Jan 09, 2024 12:27 PM [facility] GLUCOSE,BLOOD-poct (STL) Specimen Type: BLOOD Comment: Test Performed by: [id number] Meter #: [id number] Ordering Provider: LIDIA HUYNH Report Released Date/Time: Jan 09, 2024 12:38 PM Reporting Lab: [place] [address] [facility] [address] Performing Lab: [place] [address] [facility] [address] GLUCOSE,BLOOD- poct (STL) 98 mg/dL 72-99 Jan 09, 2024 07:15 AM [facility] GLUCOSE,BLOOD-poct (STL) Specimen Type: BLOOD Comment: Test Performed by: [id number] Meter #: [id number] Ordering Provider: LIDIA HUYNH Report Released Date/Time: Jan 09, 2024 07:58 AM Reporting Lab: [address] [address] Performing Lab: [address] [address] GLUCOSE,BLOOD- poct (STL) 86 mg/dL 72-99 Jan 08, 2024 09:04 PM [facility] GLUCOSE,BLOOD-poct (STL) Specimen Type: BLOOD Comment: Test Performed by: [id number] Meter #: [id number] Ordering Provider: LIDIA HUYNH Report Released Date/Time: Jan 08, 2024 09:47 PM Reporting Lab: [address] [address] Performing Lab: [address] [address] GLUCOSE,BLOOD- poct (STL) 90 mg/dL 72-99 Jan 08, 2024 09:01 PM [facility] HEPATITIS B SURFACE AB PNL Specimen Type: SERUM No comment entered. Ordering Provider: EFREN TAYLOR Report Released Date/Time: Jan 08, 2024 02:35 PM Reporting Lab: [address] [address] Performing Lab: [address] [address] HEP B Surface Ab-HBsAB (STL) REACTIVE m[IU]/mL Nonreactive HEP Bs AB-QUANT (STL) 63.22 m[IU]/mL Jan 08, 2024 09:01 PM [facility] HEP B CORE AB TOTAL. (STL) Specimen Type: SERUM No comment entered. Ordering Provider: EFREN TAYLOR Report Released Date/Time: Jan 08, 2024 02:35 PM Reporting Lab: [address] [address] Performing Lab: [address] [address] HEP B CORE AB TOTAL. (STL) Nonreactive Nonreactive Jan 08, 2024 09:01 PM [facility] HEP HB S Ag ([place]) (STL) Specimen Type: SERUM No comment entered. Ordering Provider: EFREN TAYLOR Report Released Date/Time: Jan 08, 2024 02:35 PM Reporting Lab: [address] [address] Performing Lab: [address] [address] HEP HB S Ag ([place]) (STL) Nonreactive Nonreactive Jan 08, 2024 04:47 PM [facility] GLUCOSE,BLOOD-poct (STL) Specimen Type: BLOOD Comment: Test Performed by: [id number] Meter #: [id number] Ordering Provider: LIDIA HUYNH Report Released Date/Time: Jan 08, 2024 05:09 PM Reporting Lab: [place] [address] [facility] [address] Performing Lab: [address] [address] GLUCOSE,BLOOD- poct (STL) 95 mg/dL 72-99 Jan 08, 2024 11:26 AM [facility] GLUCOSE,BLOOD-poct (STL) Specimen Type: BLOOD Comment: Test Performed by: [id number] Meter #: [id number] Ordering Provider: LIDIA HUYNH Report Released Date/Time: Jan 08, 2024 11:37 AM Reporting Lab: [place] [address] [facility] [address] Performing Lab: [place] [address] [facility] [address] GLUCOSE,BLOOD- poct (STL) 105 mg/dL H 72-99 Jan 08, 2024 07:01 AM [facility] RENAL PANEL Specimen Type: PLASMA Comment: No hemolysis noted. Ordering Provider: LIZETTE GRIFFIN Report Released Date/Time: Jan 07, 2024 11:24 PM Reporting Lab: [facility] [address] [facility] [address] Performing Lab: [address] [address] CREATININE 8.50 mg/dL H 0.7-1.3 UREA NITROGEN 88.2 mg/dL H 9.0-25.0 GLUCOSE 70 mg/dL L 72-99 SODIUM 139 meq/L 136-145 POTASSIUM 5.4 meq/L H 3.5-5 CHLORIDE 110 meq/L H 98-107 CARBON DIOXIDE 19 meq/L L 22-31 CALCIUM 9.4 mg/dL 8.4-10.4 PHOSPHOROUS 5.1 mg/dL H 2.3-4.7 ALBUMIN 3.8 g/dL 3.4-5 EGFR (CKD-EPI 2020) 6.3 LL >60 Jan 08, 2024 06:37 AM [facility] GLUCOSE,BLOOD-poct (STL) Specimen Type: BLOOD Comment: Test Performed by: [id number] Meter #: [id number] Ordering Provider: LIDIA HUYNH Report Released Date/Time: Jan 08, 2024 06:48 AM Reporting Lab: [address] [address] Performing Lab: [address] [address] GLUCOSE,BLOOD- poct (STL) 86 mg/dL 72-99 Jan 07, 2024 11:58 PM [facility] RENAL PANEL Specimen Type: PLASMA Comment: No hemolysis noted. Ordering Provider: LIZETTE GRIFFIN Report Released Date/Time: Jan 07, 2024 11:38 PM Reporting Lab: [address] [address] Performing Lab: [address] [address] CREATININE 8.68 mg/dL H 0.7-1.3 UREA NITROGEN 92.6 mg/dL H 9.0-25.0 GLUCOSE 143 mg/dL H 72-99 SODIUM 138 meq/L 136-145 POTASSIUM 5.0 meq/L 3.5-5 CHLORIDE 111 meq/L H 98-107 CARBON DIOXIDE 17 meq/L L 22-31 CALCIUM 8.8 mg/dL 8.4-10.4 PHOSPHOROUS 3.8 mg/dL 2.3-4.7 ALBUMIN 3.8 g/dL 3.4-5 EGFR (CKD-EPI 2020) 6.1 LL >60 Jan 07, 2024 11:36 PM [facility] GLUCOSE,BLOOD-poct (STL) Specimen Type: BLOOD Comment: Test Performed by: [id number] Meter #: [id number] Ordering Provider: LIDIA MOSCOSO Report Released Date/Time: Jan 07, 2024 11:47 PM Reporting Lab: [address] [address] Performing Lab: [address] [address] GLUCOSE,BLOOD- poct (STL) 157 mg/dL H 72-99 Jan 07, 2024 11:30 PM [facility] MRSA SURVL NARES DNA Specimen [...] Jan 07, 2024 11:24 PM Reporting Lab: [address] [address] Performing Lab: [address] [address] MRSA SURVL NARES DNA Negative Negative Jan 07, 2024 09:08 PM [facility] POTASSIUM Specimen Type: PLASMA Comment: No hemolysis noted. Ordering Provider: ANNA CALI Report Released Date/Time: Jan 07, 2024 08:38 PM Reporting Lab: [facility] [address] [facility] [address] Performing Lab: [address] [address] POTASSIUM 5.7 meq/L H 3.5-5 Jan 07, 2024 07:30 PM [facility] URINALYSIS (STL-PB) Specimen Type: URINE No comment entered. Ordering Provider: ANNA CALI Report Released Date/Time: Jan 07, 2024 05:18 PM Reporting Lab: [address] [address] Performing Lab: [address] [address] URINE COLOR Colorless Yellow U.BILIRUBIN Negative mg/dL [...] 1.005-1.029 Jan 07, 2024 05:30 PM [facility] BRAIN NATRIURETIC PEPTIDE Specimen Type: PLASMA No comment entered. Ordering Provider: GRACIELA MANN Report Released Date/Time: Jan 07, 2024 04:59 PM Reporting Lab: [address] [address] Performing Lab: [address] [address] BRAIN NATRIURETIC PEPTIDE 59.0 pg/mL 0-100 Jan 07, 2024 05:30 PM [facility] COVID-19 DIAGNOSTIC (FLU/RSV)(STL) Specimen Type: [...] 2024 04:59 PM Reporting Lab: [facility] [address] [place] [phone] Performing Lab: [place] [address] INFLUENZA A Negative Negative INFLUENZA B Negative Negative COVID-19 (STL-PB) Not Detected Not Detected RSV (Cepheid) NEGATIVE Negative Jan 07, 2024 05:30 PM [facility] CBC Specimen Type: BLOOD No comment entered. Ordering Provider: GRACIELA MANN Report Released Date/Time: Jan 07, 2024 04:59 PM Reporting Lab: [address] [address] Performing Lab: [address] [address] WBC 9.2 10*3/uL 3.6-11.2 RBC 3.81 10*6/uL [...] 10*3/uL 0.00-0.20 Jan 07, 2024 05:30 PM [facility] COMPREHENSIVE METABOLIC PANEL Specimen Type: PLASMA Comment: Aspartate Transaminase result may show positive bias due to hemolysis. K result canceled due to hemolysis. Specimen moderately hemolyzed. K cancelled due to moderate hemolysis. Called to : Phillip Cee RN at: [id number] on: 01/07/2024 by: TENN[place]LE Ordering Provider: GRACIELA MANN Report Released Date/Time: Jan 07, 2024 04:59 PM Reporting Lab: [facility] [address] [address] Performing Lab: [facility] [address] [facility] [address] CREATININE 8.88 mg/dL H 0.7-1.3 UREA NITROGEN [...] place. Date/Time Current Smoking Status Comment Facil manfred Jun 21, 2023 01:14 PM ORYX ADMIT TOBACCO SCREEN NO [facility] Tobacco Use History This section includes a history of the smoking, or tobacco-related health factors, that were collected on or before the date of the Encounter. The data comes from the [place] facility where the Encounter took place. Date/Time Smoking Status/Tobacco Use Comment F acility Dec 12, 2022 04:00 PM ORYX ADMIT TOBACCO SCREEN NO [facility] Jun 25, 2022 03:24 PM VA-TOBACCO FORMER USER [facility] Jun 25, 2022 03:24 PM VA-TOBACCO QUIT 15 YRS OR MORE [facility] Dec 23, 2021 04:59 PM ORYX ADMIT TOBACCO SCREEN REFUSED [facility] May 24, 2020 11:27 PM ORYX ADMIT TOBACCO SCREEN NO [facility] Dec 12, 2019 10:24 AM VA-TOBACCO FORMER USER [facility] Dec 12, 2019 10:24 AM VA-TOBACCO QUIT 15 YRS OR MORE [facility] Aug 03, 2019 02:11 AM ORYX ADMIT TOBACCO SCREEN REFUSED [facility] Oct 12, 2018 01:14 AM QUIT TOBACCO >7 YEARS AGO [facility] Oct 11, 2018 03:33 PM ORYX ADMIT TOBACCO SCREEN NO [facility] Sep 07, 2018 09:13 PM ORYX ADMIT TOBACCO SCREEN NO [facility] Sep 07, 2018 07:52 PM QUIT TOBACCO >7 YEARS AGO [facility] Advance Directives: All historical and [...] ADVANCE DIRECTIVE DISCUSSION MELY LUCIANO [facility] Feb 02, 2018 ADVANCE DIRECTIVE BEAU [facility] Nov 29, 2006 ADVANCE DIRECTIVE MARELY CHACON AJAY NOV[facility] Radiology Reports: +/- 30 days of [...] 2024 08:01 PM CHEST PORTABLE: NAGI KATZ [id number] -[id number] M Exm Date: JAN 07, 2024@20:01 Req Phys: ANNA CALI Loc: -EMERGENCY DEPT 3RD SHIFT (R Img Loc: -MAIN RADIOLOGY SUITE Service: Unknown (Case [id number] COMPLETE) CHEST PORTABLE (RAD Detailed) CPT:41743 Proc Modifiers : Portable Reason for Study: weakness, ESRD Clinical History: Report Status: Verified Date Reported: JAN 07, 2024 Date Verified: JAN 07, 2024 Booky E-Sig: Report: CHEST PORTABLE HISTORY: weakness, ESRD [...] No pneumothorax. READING PHYSICIAN: Madhu Patton M.D. [phone] 01/07/2024 19:10 PDT [facility] National Teleradiology Program [phone] (For Medical Practitioner Use Only) Attention Patients / Veterans: If you have questions or concerns about these test results, please contact your ordering provider or primary care team. Primary Interpreting Staff: RADIOLOGY,OUTSIDE SERVICE, Staff Physician / RADIOLOGY,OUTSIDE SERVICE [facility] Encounter Notes: All associated encounter notes This section contains the clinical notes associated to the Encounter. Date/Time Encounter Note(s) Provider Source Jan 28, 2024 04:50 PM DIALYSIS NURSING NOTE: LOCAL TITLE: DIALYSIS NOTE STANDARD TITLE: DIALYSIS NURSING NOTE DATE OF NOTE: JAN 28, 2024@16:50 ENTRY DATE: JAN 28, 2024@16:50:44 AUTHOR: MARTHA PURCELL EXP COSIGNER: URGENCY: STATUS: COMPLETED DIALYSIS NOTE Has ADDENDA Weekly Dialysis Rounding Note: Patient was seen in dialysis unit for weekly dialysis rounds. He denied any issues with dialysis so far. Was notified by charge nurse that complained of chest pressure, 200cc of fluid adm and he expressed relief. On rounds patient said he just felt some chest pressure at that time, he denied any chest pressure at that moment. He was instructed to report to ED if he has any chest pressure/pain later and he voiced understanding. He arrived to dialysis late today, he was counselled on coming on time and as schedule, he will be back on Thursday. Jug was provided for for 24 hr urine collection, verbal and written instruction was also provided. He will bring specimen on Thursday. Lab Data: CBC: WBC 7.8 10*3/uL 01/26/2024 13:00 RBC 2.95 L 10*6/uL 01/26/2024 13:00 HGB 8.7 L g/dL 01/26/2024 13:00 HCT 26.7 L % 01/26/2024 13:00 MCV 90.5 fL 01/26/2024 13:00 MCH 29.5 pg 01/26/2024 13:00 MCHC 32.6 L g/dL 01/26/2024 13:00 RDW 12.5 % 01/26/2024 13:00 PLT 262 10*3/uL 01/26/2024 13:00 MPV 11.3 H fL 01/26/2024 13:00 NEUTROPHILS, AUTO % 67 % 01/26/2024 13:00 LYMPHOCYTES, AUTO % 23 % 01/26/2024 13:00 MONOCYTES, AUTO % 6 % 01/26/2024 13:00 EOSINOPHILS, AUTO % 3 % 01/26/2024 13:00 BASOPHILS, AUTO % 1 % 01/26/2024 13:00 IMMATURE GRANS, AUTO % 0.4 % 06/18/2022 12:10 NEUTROPHILS, ABSOLUTE 5.22 10*3/uL 01/26/2024 13:00 LYMPHOCYTES, ABSOLUTE 1.78 10*3/uL 01/26/2024 13:00 MONOCYTES, ABSOLUTE 0.49 10*3/uL 01/26/2024 13:00 EOSINOPHILS, ABSOLUTE 0.22 10*3/uL 01/26/2024 13:00 BASOPHILS, ABSOLUTE 0.04 10*3/uL 01/26/2024 13:00 IMMATURE GRANS, AUTO ABS 0.03 10*3/uL 06/18/2022 12:10 Renal Function Panel: SODIUM 137 mEq/L 01/26/2024 13:00 POTASSIUM 4.2 mEq/L 01/26/2024 13:00 CHLORIDE 100 mEq/L 01/26/2024 13:00 UREA NITROGEN 63.1 H mg/dL 01/26/2024 13:00 CREATININE 8.25 H mg/dL 01/26/2024 13:00 CALCIUM 9.6 mg/dL 01/26/2024 13:00 CARBON DIOXIDE 26 mEq/L 01/26/2024 13:00 GLUCOSE 157 H mg/dL 01/26/2024 13:00 EGFR (CKD-EPI 2020) 6.5 L* 01/26/2024 13:00 ALBUMIN 3.7 g/dL 01/26/2024 13:00 PHOSPHOROUS 4.9 H mg/dL 01/26/2024 13:00 Intact PTH: VITAMIN D, 25-HYDROXY 46.8 ng/mL 08/31/2023 16:36 Anemia Labs: IRON 52 L ug/dL 01/26/2024 13:00 IRON SATURATION 23 %SAT 01/26/2024 13:00 TIBC 225 L ug/dL 01/26/2024 13:00 0 FERRITIN 118.78 ng/mL 01/26/2024 13:00 Vital signs: BP 138/74, HR 61 TEMP 97.1 RESP 20 Exam: Lungs CTAB, RRR, s1s2, abd soft, +BS, no edema Access: LUE AVF +thrill, +bruit A/P: ESRD [place] seen during weekly rounds, here to complete avf cannulation and transition to the community but now considering doing HD here if able to do incremental HD - 2 days/week. Plan discussed with cue selector dr. Trejo, he will obtain 24 hr urine collection next week fistula cannulation progressing currently, bruises and swelling significantly subsided, on 16 gauge needles, will proceed to 15 gauge needles next week if he has successful cannulation on Thursday. will continue HD - 3.5 hrs on TTS for now #anemia hgb 8.4 on most recent lab 2days ago, tsat 23%, and ferritin 118.78, iv iron sucrose 100mg given on thursday, will continue for 10 doses. #bp/edema bp at goal, no edema, will continue current bp regimen - nifedipine 90mg and carvedilol 25mg bid continue salt restriction continue home bp log #Secondary hyperparathyroidism of renal disease- pth 141 currently on calcitriol 1mcg daily potassium 4.2 at goal, will stop patiromer and counselled patient to continue avoiding/limiting foods high in potassium, will repeat lab next week alb 3.7, ca 9.6, phos 4.9, counselled on foods high in phos to limit #Acid-Base - bicarb 26 at goal, will dc po sodium bicarb and continue repleting on HD. denied any chest pressure at completion of HD session. patient was discussed with cue selector dr. Trejo. /edwar/ KIMBERLY PURCELL APRN [facility]- NURSE PRACTITIONER Signed: 01/28/2024 17:39 Receipt Acknowledged By: 01/29/2024 08:46 /edwar/ MERY TREJO MD STAFF PHYSICIAN,NEPHROLOGY 01/29/2024 ADDENDUM STATUS: COMPLETED Noted Hb decreased from 3/28 and repeat Hb better, no external blood loss per pt. Start iv venofer and Darbe, f/u trend. Pt has neg stress MPI 02/01 and if he has chest pain/angina need further evaluation. Bp is stable and f/u 24 hr urine as pt want to consider 2 days/wk dialysis. Calcitriol can be switched to [employer] in HD and reiterate low phos diet/monitor for phos binder. Decrease/stop sod bicarb supplements based upon CO2 level. /patrice TREJO MD STAFF PHYSICIAN,NEPHROLOGY Signed: 01/29/2024 09:14 ANDREW PURCELL [facility]
--- OUTSIDE RECORDS SUMMARY | 2024-12-05 00:24 | XMS_ITS | Encounter Summary ---
Author Name [facility] [place] [facility] [place] Address [address] [place] [address] Care Team Providers Care Banking Manager Name Role Phone LUIZ ERIKA Primary Care [...] PART A Jul 12, 2019 PART A [id number] PRASANNA KATZ PATIENT MEDICARE (WNR) MEDICARE (M) PART A Jul 12, 2019 PART A [id number] [phone] PRASANNA KATZ PATIENT Selected Encounter This section includes the information on record at [place] for the Encounter. Date/Time Encounter Type Encounter Description Reason Provider Source Jan 08, 2024 03:11 PM QNHP OL DIG ASSMT&MGMT 5-10 [facility]ICAL [facility] ICD-10-CM Z51.81 Encounter for therapeutic drug level monitoring SUSAN THOMAS IHJono Encounter Template Text not used by [place] Assessments - Encounter Diagnoses This section includes the primary and secondary diagnoses documented for the Encounter. 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 This section includes future appointments and future orders which are active, pending or scheduled. Future Appointments This section includes appointments that were scheduled to occur 6 months from the date of the Encounter, up to a maximum of 20 appointments. The data comes from all [place] treatment facilities. Appointment Date/Time Appointment Type Appointme nt Facility Name Jan 12, 2024 10:30 AM AMBULATORY - MEDICINE [facility] Jan 21, 2024 12:30 PM AMBULATORY - MEDICINE [facility] Jan 23, 2024 12:30 PM AMBULATORY - MEDICINE [facility] Jan 25, 2024 02:30 PM AMBULATORY - MEDICINE [facility] Jan 26, 2024 12:30 PM AMBULATORY - MEDICINE [facility] Jan 28, 2024 12:30 PM AMBULATORY - MEDICINE [facility] Feb 02, 2024 12:30 PM AMBULATORY - MEDICINE [facility] Feb 04, 2024 12:15 PM AMBULATORY - MEDICINE [facility] Feb 06, 2024 12:30 PM AMBULATORY - MEDICINE [facility] Feb 09, 2024 12:30 PM AMBULATORY - MEDICINE [facility] February 11, 2024 12:30 PM AMBULATORY - MEDICINE [facility] February 13, 2024 12:30 PM AMBULATORY - MEDICINE [facility] February 15, 2024 08:00 AM AMBULATORY - NONE [facility] February 15, 2024 08:30 AM AMBULATORY - MEDICINE [facility] Apr 05, 2024 09:30 AM AMBULATORY - MEDICINE [facility] Apr 27, 2024 07:30 AM AMBULATORY - SURGERY [facility] May 02, 2024 08:00 AM AMBULATORY - NONE [facility] May 02, 2024 08:30 AM AMBULATORY - MEDICINE [facility] May 16, 2024 02:00 PM AMBULATORY - MEDICINE [facility] Lab Results: +/- 30 days of the encounter This section includes the Chemistry and Hematology Lab Results on record with [place] for the patient. Radiology Reports and Pathology Reports are provided separately, in subsequent sections. Lab Results This section contains the Chemistry/Hematology Results that were resulted 30 days before or 30 daysafter the date of the Encounter. Date/Time Source Result Type Result - Unit Interpretation Reference Range Comment Feb 04, 2024 05:00 PM [facility] URR-POST PANEL (STL) Specimen Type: PLASMA No comment entered. Ordering Provider: KYLER PURCELL Report Released Date/Time: Feb 04, 2024 01:42 PM Reporting Lab: [facility] [address] [place] [phone] Performing Lab: [facility] [address] [place] [address] BUN-POST DIALYSIS 16.2 mg/dL 9.0-25.0 URR (STL) 70.4 67.0-100.0 Feb 04, 2024 12:45 PM [facility] RENAL PANEL Specimen Type: PLASMA Comment: No hemolysis noted. Ordering Provider: KYLER PURCELL Report Released Date/Time: Feb 04, 2024 01:42 PM Reporting Lab: [facility] [address] [facility] [address] Performing Lab: [address] [address] CREATININE 6.97 mg/dL H 0.7-1.3 UREA NITROGEN 54.7 mg/dL H 9.0-25.0 GLUCOSE 134 mg/dL H 72-99 SODIUM 142 meq/L 136-145 POTASSIUM 4.0 meq/L 3.5-5 CHLORIDE 105 meq/L 98-107 CARBON DIOXIDE 24 meq/L 22-31 CALCIUM 9.7 mg/dL 8.4-10.4 PHOSPHOROUS 4.8 mg/dL H 2.3-4.7 ALBUMIN 3.9 g/dL 3.4-5 EGFR (CKD-EPI 2020) 7.9 LL >60 Feb 02, 2024 04:30 PM [facility] URR-POST PANEL (STL) Specimen Type: PLASMA No comment entered. Ordering Provider: KYLER PURCELL Report Released Date/Time: Feb 02, 2024 03:39 PM Reporting Lab: [address] [address] Performing Lab: [address] [address] BUN-POST DIALYSIS 22.9 mg/dL 9.0-25.0 URR (STL) 60.9 L 67.0-100.0 Feb 02, 2024 11:50 AM [facility] RENAL PANEL Specimen Type: PLASMA Comment: No hemolysis noted. Ordering Provider: KYLER PURCELL Report Released Date/Time: Feb 02, 2024 07:35 AM Reporting Lab: [address] [address] Performing Lab: [address] [address] CREATININE 8.34 mg/dL H 0.7-1.3 UREA NITROGEN 58.6 mg/dL H 9.0-25.0 GLUCOSE 169 mg/dL H 72-99 SODIUM 142 meq/L 136-145 POTASSIUM 4.6 meq/L 3.5-5 CHLORIDE 111 meq/L H 98-107 CARBON DIOXIDE 20 meq/L L 22-31 CALCIUM 9.2 mg/dL 8.4-10.4 PHOSPHOROUS 3.6 mg/dL 2.3-4.7 ALBUMIN 3.7 g/dL 3.4-5 EGFR (CKD-EPI 2020) 6.4 LL >60 Feb 01, 2024 11:00 PM [facility] 24H UR CHEM PANEL (STL) Specimen Type: 24-HOUR URINE No comment entered. Ordering Provider: KYLER PURCELL Report Released Date/Time: Jan 28, 2024 04:55 PM Reporting Lab: [address] [address] Performing Lab: [address] [address] VOLUME 3289 mL SODIUM 24-HOUR URINE 226.941 H 40-220 POTASSIUM 24-HOUR URINE 35.8501 25-125 CHLORIDE 24-HOUR URINE 171.028 110-250 PROTEIN 24-HOUR URINE 1986.556 H 0-299.9 CREATININE 24-HOUR URINE 2078.660 191-1966 Jan 28, 2024 05:29 PM [facility] CBC Specimen Type: BLOOD No comment entered. Ordering Provider: KYLER PURCELL Report Released Date/Time: Jan 28, 2024 05:07 PM Reporting Lab: [address] [address] Performing Lab: [address] [address] WBC 8.9 10*3/uL 3.6-11.2 RBC 2.96 10*6/uL [...] 10*3/uL 0.00-0.20 Jan 26, 2024 01:00 PM [facility] PTH, INTACT (STL) Specimen Type: SERUM No comment entered. Ordering Provider: KYLER PURCELL Report Released Date/Time: Jan 21, 2024 03:14 PM Reporting Lab: [facility] [address] [facility] [address] Performing Lab: [address] [address] PTH, INTACT (STL) 141.40 pg/mL H 8.7-77.7 Jan 26, 2024 01:00 PM [facility] IRON/TIBC PROFILE Specimen Type: SERUM No comment entered. Ordering Provider: KYLER PURCELL Report Released Date/Time: Jan 21, 2024 03:14 PM Reporting Lab: [facility] [address] [place] [address] Performing Lab: [address] [address] TIBC 225 ug/dL L 250-450 TRANSFERRIN 180 mg/dL 163-344 IRON SATURATION 23 20-50 IRON 52 ug/dL L 65-175 Jan 26, 2024 01:00 PM [facility] FERRITIN Specimen Type: SERUM No comment entered. Ordering Provider: KYLER PURCELL Report Released Date/Time: Jan 21, 2024 03:14 PM Reporting Lab: [facility] [address] [place] [address] Performing Lab: [address] [address] FERRITIN 118.78 ng/mL 22-275 Jan 26, 2024 01:00 PM [facility] RENAL PANEL Specimen Type: PLASMA Comment: No hemolysis noted. Ordering Provider: KYLER PURCELL Report Released Date/Time: Jan 21, 2024 03:14 PM Reporting Lab: [facility] [address] [place] [address] Performing Lab: [address] [address] CREATININE 8.25 mg/dL H 0.7-1.3 UREA NITROGEN 63.1 mg/dL H 9.0-25.0 GLUCOSE 157 mg/dL H 72-99 SODIUM 137 meq/L 136-145 POTASSIUM 4.2 meq/L 3.5-5 CHLORIDE 100 meq/L 98-107 CARBON DIOXIDE 26 meq/L 22-31 CALCIUM 9.6 mg/dL 8.4-10.4 PHOSPHOROUS 4.9 mg/dL H 2.3-4.7 ALBUMIN 3.7 g/dL 3.4-5 EGFR (CKD-EPI 2020) 6.5 LL >60 Jan 26, 2024 01:00 PM [facility] CBC Specimen Type: BLOOD No comment entered. Ordering Provider: KYLER PURCELL Report Released Date/Time: Jan 21, 2024 03:14 PM Reporting Lab: [address] [address] Performing Lab: [address] [address] WBC 7.8 10*3/uL 3.6-11.2 RBC 2.95 10*6/uL [...] 10*3/uL 0.00-0.20 Jan 21, 2024 12:55 PM [facility] PT/INR NEW (STL-TN) Specimen Type: PLASMA No comment entered. Ordering Provider: KYLER PURCELL Report Released Date/Time: Jan 21, 2024 12:43 PM Reporting Lab: [address] [address] Performing Lab: [address] [address] PROTIME 15.9 s H 9.4-12.5 INR VALUE 1.4 {INR} Jan 21, 2024 12:55 PM [facility] RENAL PANEL Specimen Type: PLASMA Comment: No hemolysis noted. Ordering Provider: KYLER PURCELL Report Released Date/Time: Jan 21, 2024 12:41 PM Reporting Lab: [address] [address] Performing Lab: [address] [address] CREATININE 8.11 mg/dL H 0.7-1.3 UREA NITROGEN 82.6 mg/dL H 9.0-25.0 GLUCOSE 114 mg/dL H 72-99 SODIUM 139 meq/L 136-145 POTASSIUM 5.1 meq/L H 3.5-5 CHLORIDE 109 meq/L H 98-107 CARBON DIOXIDE 19 meq/L L 22-31 CALCIUM 9.3 mg/dL 8.4-10.4 PHOSPHOROUS 4.1 mg/dL 2.3-4.7 ALBUMIN 3.8 g/dL 3.4-5 EGFR (CKD-EPI 2020) 6.6 LL >60 Jan 14, 2024 11:55 AM [facility] RENAL PANEL Specimen Type: PLASMA Comment: No hemolysis noted. Ordering Provider: KYLER PURCELL Report Released Date/Time: Jan 13, 2024 07:58 AM Reporting Lab: [address] [address] Performing Lab: [address] [address] CREATININE 8.05 mg/dL H 0.7-1.3 UREA NITROGEN 70.7 mg/dL H 9.0-25.0 GLUCOSE 155 mg/dL H 72-99 SODIUM 140 meq/L 136-145 POTASSIUM 5.1 meq/L H 3.5-5 CHLORIDE 107 meq/L 98-107 CARBON DIOXIDE 21 meq/L L 22-31 CALCIUM 9.6 mg/dL 8.4-10.4 PHOSPHOROUS 4.8 mg/dL H 2.3-4.7 ALBUMIN 4.1 g/dL 3.4-5 EGFR (CKD-EPI 2020) 6.7 LL >60 Jan 11, 2024 11:36 AM [facility] GLUCOSE,BLOOD-poct (STL) Specimen Type: BLOOD Comment: Test Performed by: [id number] Meter #: [id number] Ordering Provider: WatchFrogRohiniLever Report Released Date/Time: Jan 11, 2024 11:50 AM Reporting Lab: [address] [address] Performing Lab: [address] [address] GLUCOSE,BLOOD- poct (STL) 106 mg/dL H 72-99 Jan 11, 2024 11:07 AM [facility] GLUCOSE,BLOOD-poct (STL) Specimen Type: BLOOD Comment: Test Performed by: [id number] Meter #: [id number] Ordering Provider: WatchFrogRohiniLever Report Released Date/Time: Jan 11, 2024 11:18 AM Reporting Lab: [address] [address] Performing Lab: [address] [address] GLUCOSE,BLOOD- poct (STL) 109 mg/dL H 72-99 Jan 11, 2024 05:12 AM [facility] GLUCOSE,BLOOD-poct (STL) Specimen Type: BLOOD Comment: Test Performed by: [id number] Meter #: [id number] Ordering Provider: LIDIA HUYNH Report Released Date/Time: Jan 11, 2024 05:25 AM Reporting Lab: [place] [address] [facility] [address] Performing Lab: [address] [address] GLUCOSE,BLOOD- poct (STL) 88 mg/dL 72-Jan 10, 2024 08:19 PM [facility] GLUCOSE,BLOOD-poct (STL) Specimen Type: BLOOD Comment: Test Performed by: [id number] Meter #: [id number] Ordering Provider: LIDIA HUYNH Report Released Date/Time: Jan 10, 2024 08:31 PM Reporting Lab: [address] [address] Performing Lab: [place] [address] [facility] [address] GLUCOSE,BLOOD- poct (STL) 153 mg/dL H -Jan 10, 2024 04:15 PM [facility] GLUCOSE,BLOOD-poct (STL) Specimen Type: BLOOD Comment: Test Performed by: [id number] Meter #: [id number] Ordering Provider: LIDIA HUYNH Report Released Date/Time: Jan 10, 2024 05:05 PM Reporting Lab: [address] [address] Performing Lab: [address] [address] GLUCOSE,BLOOD- poct (STL) 84 mg/dL 72-Jan 10, 2024 11:31 AM [facility] GLUCOSE,BLOOD-poct (STL) Specimen Type: BLOOD Comment: Test Performed by: [id number] Meter #: [id number] Ordering Provider: LIDIA HUYNH Report Released Date/Time: Jan 10, 2024 12:03 PM Reporting Lab: [address] [place] [address] Performing Lab: [place] [address] [facility] [address] GLUCOSE,BLOOD- poct (STL) 99 mg/dL 72-Jan 10, 2024 04:45 AM [facility] GLUCOSE,BLOOD-poct (STL) Specimen Type: BLOOD Comment: Test Performed by: [id number] Meter #: [id number] Ordering Provider: LINO,MED Report Released Date/Time: Jan 10, 2024 05:29 AM Reporting Lab: [place] [address] [facility] [address] Performing Lab: [place] [address] [facility] [address] GLUCOSE,BLOOD- poct (STL) 109 mg/dL H -Jan 09, 2024 08:08 PM [facility] GLUCOSE,BLOOD-poct (STL) Specimen Type: BLOOD Comment: Test Performed by: [id number] Meter #: [id number] Ordering Provider: LINO,MED Report Released Date/Time: Jan 09, 2024 08:28 PM Reporting Lab: [address] [address] Performing Lab: [address] [address] GLUCOSE,BLOOD- poct (STL) 110 mg/dL H -Jan 09, 2024 04:19 PM [facility] GLUCOSE,BLOOD-poct (STL) Specimen Type: BLOOD Comment: Test Performed by: [id number] Meter #: [id number] Ordering Provider: WatchFrogRohini,MED Report Released Date/Time: Jan 09, 2024 04:34 PM Reporting Lab: [address] [address] Performing Lab: [address] [address] GLUCOSE,BLOOD- poct (STL) 119 mg/dL H 72-Jan 09, 2024 02:30 PM [facility] MAGNESIUM Specimen Type: PLASMA Comment: No hemolysis noted. Ordering Provider: TATI ZAVALA Report Released Date/Time: Jan 09, 2024 07:51 AM Reporting Lab: [facility] [address] [facility] [address] Performing Lab: [facility] [address] [place] [address] MAGNESIUM 1.6 mg/dL 1.6-2.6 Jan 09, 2024 02:30 PM [facility] RENAL PANEL Specimen Type: PLASMA Comment: No hemolysis noted. Ordering Provider: TATI ZAVALA Report Released Date/Time: Jan 09, 2024 07:51 AM Reporting Lab: [address] [address] Performing Lab: [address] [address] CREATININE 5.13 mg/dL H 0.7-1.3 UREA NITROGEN 46.2 mg/dL H 9.0-25.0 GLUCOSE 177 mg/dL H 72-99 SODIUM 136 meq/L 136-145 POTASSIUM 4.0 meq/L 3.5-5 CHLORIDE 101 meq/L 98-107 CARBON DIOXIDE 23 meq/L 22-31 CALCIUM 8.6 mg/dL 8.4-10.4 PHOSPHOROUS 2.7 mg/dL 2.3-4.7 ALBUMIN 3.6 g/dL 3.4-5 EGFR (CKD-EPI 2020) 11.5 LL >60 Jan 09, 2024 12:27 PM [facility] GLUCOSE,BLOOD-poct (STL) Specimen Type: BLOOD Comment: Test Performed by: [id number] Meter #: [id number] Ordering Provider: LIDIA HUYNH Report Released Date/Time: Jan 09, 2024 12:38 PM Reporting Lab: [address] [address] Performing Lab: [address] [address] GLUCOSE,BLOOD- poct (STL) 98 mg/dL 72-99 Jan 09, 2024 07:15 AM [facility] GLUCOSE,BLOOD-poct (STL) Specimen Type: BLOOD Comment: Test Performed by: [id number] Meter #: [id number] Ordering Provider: LIDIA HUYNH Report Released Date/Time: Jan 09, 2024 07:58 AM Reporting Lab: [place] [address] [facility] [address] Performing Lab: [place] [address] [facility] [address] GLUCOSE,BLOOD- poct (STL) 86 mg/dL 72-Jan 08, 2024 09:04 PM [facility] GLUCOSE,BLOOD-poct (STL) Specimen Type: BLOOD Comment: Test Performed by: [id number] Meter #: [id number] Ordering Provider: LIDIA HUYNH Report Released Date/Time: Jan 08, 2024 09:47 PM Reporting Lab: [place] [address] [facility] [address] Performing Lab: [place] [address] [facility] [address] GLUCOSE,BLOOD- poct (STL) 90 mg/dL -Jan 08, 2024 09:01 PM [facility] HEP B CORE AB TOTAL. (STL) Specimen Type: SERUM No comment entered. Ordering Provider: EFREN TAYLOR Report Released Date/Time: Jan 08, 2024 02:35 PM Reporting Lab: [place] [address] [facility] [address] Performing Lab: [place] [address] [facility] [address] HEP B CORE AB TOTAL. (STL) Nonreactive Nonreactive Jan 08, 2024 09:01 PM [facility] HEP HB S Ag ([place]RI[place]) (STL) Specimen Type: SERUM No comment entered. Ordering Provider: EFREN TAYLOR Report Released Date/Time: Jan 08, 2024 02:35 PM Reporting Lab: [place] [address] [facility] [address] Performing Lab: [place] [address] [facility] [address] HEP HB S Ag ([place]) (L) Nonreactive Nonreactive Jan 08, 2024 09:01 PM [facility] HEPATITIS B SURFACE AB PNL Specimen Type: SERUM No comment entered. Ordering Provider: EFREN TAYLOR Report Released Date/Time: Jan 08, 2024 02:35 PM Reporting Lab: [address] [address] Performing Lab: [address] [address] HEP B Surface Ab-HBsAB (L) REACTIVE m[IU]/mL Nonreactive HEP Bs AB-QUANT (L) 63.22 m[IU]/mL Jan 08, 2024 04:47 PM [facility] GLUCOSE,BLOOD-poct (L) Specimen Type: BLOOD Comment: Test Performed by: [id number] Meter #: [id number] Ordering Provider: LIDIA HUYNH Report Released Date/Time: Jan 08, 2024 05:09 PM Reporting Lab: [address] [address] Performing Lab: [address] [address] GLUCOSE,BLOOD- poct (STL) 95 mg/dL 72-99 Jan 08, 2024 11:26 AM [facility] GLUCOSE,BLOOD-poct (L) Specimen Type: BLOOD Comment: Test Performed by: [id number] Meter #: [id number] Ordering Provider: LIDIA HUYNH Report Released Date/Time: Jan 08, 2024 11:37 AM Reporting Lab: [address] [address] Performing Lab: [address] [address] GLUCOSE,BLOOD- poct (STL) 105 mg/dL H 72-99 Jan 08, 2024 07:01 AM [facility] RENAL PANEL Specimen Type: PLASMA Comment: No hemolysis noted. Ordering Provider: LIZETTE GRIFFIN Report Released Date/Time: Jan 07, 2024 11:24 PM Reporting Lab: [facility] [address] [place] [address] Performing Lab: [address] [address] CREATININE 8.50 mg/dL H 0.7-1.3 UREA NITROGEN 88.2 mg/dL H 9.0-25.0 GLUCOSE 70 mg/dL L 72-99 SODIUM 139 meq/L 136-145 POTASSIUM 5.4 meq/L H 3.5-5 CHLORIDE 110 meq/L H 98-107 CARBON DIOXIDE 19 meq/L L 22-31 CALCIUM 9.4 mg/dL 8.4-10.4 PHOSPHOROUS 5.1 mg/dL H 2.3-4.7 ALBUMIN 3.8 g/dL 3.4-5 EGFR (CKD-EPI 2020) 6.3 LL >60 Jan 08, 2024 06:37 AM [facility] GLUCOSE,BLOOD-poct (STL) Specimen Type: BLOOD Comment: Test Performed by: [id number] Meter #: [id number] Ordering Provider: LIDIA HUYNH Report Released Date/Time: Jan 08, 2024 06:48 AM Reporting Lab: [address] [address] Performing Lab: [address] [address] GLUCOSE,BLOOD- poct (STL) 86 mg/dL 72-99 Jan 07, 2024 11:58 PM [facility] RENAL PANEL Specimen Type: PLASMA Comment: No hemolysis noted. Ordering Provider: LIZETTE GRIFFIN Report Released Date/Time: Jan 07, 2024 11:38 PM Reporting Lab: [address] [address] Performing Lab: [address] [address] CREATININE 8.68 mg/dL H 0.7-1.3 UREA NITROGEN 92.6 mg/dL H 9.0-25.0 GLUCOSE 143 mg/dL H 72-99 SODIUM 138 meq/L 136-145 POTASSIUM 5.0 meq/L 3.5-5 CHLORIDE 111 meq/L H 98-107 CARBON DIOXIDE 17 meq/L L 22-31 CALCIUM 8.8 mg/dL 8.4-10.4 PHOSPHOROUS 3.8 mg/dL 2.3-4.7 ALBUMIN 3.8 g/dL 3.4-5 EGFR (CKD-EPI 2020) 6.1 LL >60 Jan 07, 2024 11:36 PM [facility] GLUCOSE,BLOOD-poct (STL) Specimen Type: BLOOD Comment: Test Performed by: [id number] Meter #: [id number] Ordering Provider: LIDIA MOSCOSO Report Released Date/Time: Jan 07, 2024 11:47 PM Reporting Lab: [address] [address] Performing Lab: [address] [address] GLUCOSE,BLOOD- poct (STL) 157 mg/dL H 72-99 Jan 07, 2024 11:30 PM [facility] MRSA SURVL NARES DNA Specimen Type: NARES [...] Jan 07, 2024 11:24 PM Reporting Lab: [address] [address] Performing Lab: [address] [address] MRSA SURVL NARES DNA Negative Negative Jan 07, 2024 09:08 PM [facility] POTASSIUM Specimen Type: PLASMA Comment: No hemolysis noted. Ordering Provider: ANNA CALI Report Released Date/Time: Jan 07, 2024 08:38 PM Reporting Lab: [facility] [address] [place] [address] Performing Lab: [address] [address] POTASSIUM 5.7 meq/L H 3.5-5 Jan 07, 2024 07:30 PM [facility] URINALYSIS (STL-PB) Specimen Type: URINE No comment entered. Ordering Provider: ANNA CALI Report Released Date/Time: Jan 07, 2024 05:18 PM Reporting Lab: [address] [address] Performing Lab: [address] [address] URINE COLOR Colorless Yellow U.BILIRUBIN Negative mg/dL [...] 1.015 1.005-1.029 Jan 07, 2024 05:30 PM [facility] BRAIN NATRIURETIC PEPTIDE Specimen Type: PLASMA No comment entered. Ordering Provider: GRACIELA MANN Report Released Date/Time: Jan 07, 2024 04:59 PM Reporting Lab: [address] [address] Performing Lab: [address] [address] BRAIN NATRIURETIC PEPTIDE 59.0 pg/mL 0-100 Jan 07, 2024 05:30 PM [facility] COVID-19 DIAGNOSTIC (FLU/RSV)(STL) Specimen Type: NASOPHARYNX Comment: [...] Jan 07, 2024 04:59 PM Reporting Lab: [address] [phone] Performing Lab: [address] [address] INFLUENZA A Negative Negative INFLUENZA B Negative Negative COVID-19 ([facility]-PB) Not Detected Not Detected RSV (Cepheid) NEGATIVE Negative Jan 07, 2024 05:30 PM [facility] COMPREHENSIVE METABOLIC PANEL Specimen Type: PLASMA Comment: Aspartate Transaminase result may show positive bias due to hemolysis. K result canceled due to hemolysis. Specimen moderately hemolyzed. K cancelled due to moderate hemolysis. Called to : Phillip Cee RN at: [id number] on: 01/07/2024 by: TENNILLE Ordering Provider: GRACIELA MANN Report Released Date/Time: Jan 07, 2024 04:59 PM Reporting Lab: [address] [address] Performing Lab: [address] [phone] CREATININE 8.88 mg/dL H 0.7-1.3 UREA NITROGEN [...] LL >60 Jan 07, 2024 05:30 PM [facility] CBC Specimen Type: BLOOD No comment entered. Ordering Provider: GRACIELA MANN Report Released Date/Time: Jan 07, 2024 04:59 PM Reporting Lab: [address] [address] Performing Lab: [address] [address] WBC 9.2 10*3/uL 3.6-11.2 RBC 3.81 10*6/uL [...] 10*3/uL 0.00-0.20 Dec 11, 2023 12:02 PM [facility] PTH, INTACT (STL) Specimen Type: SERUM No comment entered. Ordering Provider: KYLER PURCELL Report Released Date/Time: Dec 10, 2023 03:57 PM Reporting Lab: [facility] [address] [place] [phone] Performing Lab: [address] [address] PTH, INTACT (STL) 527.70 pg/mL H 8.7-77.7 Dec 11, 2023 12:02 PM [facility] RENAL PANEL Specimen Type: PLASMA Comment: No hemolysis noted. Ordering Provider: KYLER PURCELL Report Released Date/Time: Dec 10, 2023 03:57 PM Reporting Lab: [address] [address] Performing Lab: [address] [address] CREATININE 8.13 mg/dL H 0.7-1.3 UREA NITROGEN 69.9 mg/dL H 9.0-25.0 GLUCOSE 163 mg/dL H 72-99 SODIUM 140 meq/L 136-145 POTASSIUM 5.4 meq/L H 3.5-5 CHLORIDE 106 meq/L 98-107 CARBON DIOXIDE 22 meq/L 22-31 CALCIUM 8.6 mg/dL 8.4-10.4 PHOSPHOROUS 3.7 mg/dL 2.3-4.7 ALBUMIN 3.9 g/dL 3.4-5 EGFR (CKD-EPI 2020) 6.6 LL >60 Dec 11, 2023 12:02 PM [facility] CBC Specimen Type: BLOOD No comment entered. Ordering Provider: KYLER PURCELL Report Released Date/Time: Dec 10, 2023 03:57 PM Reporting Lab: [address] [phone] Performing Lab: 95 [address] [address] WBC 8.4 10*3/uL 3.6-11.2 RBC 3.84 10*6/uL [...] 10*3/uL 0.00-0.20 Dec 11, 2023 12:02 PM [facility] MAGNESIUM Specimen Type: PLASMA No comment entered. Ordering Provider: KYLER PURCELL Report Released Date/Time: Dec 11, 2023 10:17 AM Reporting Lab: [facility] [address] [facility] [address] Performing Lab: [place] [address] [facility] [address] MAGNESIUM 1.3 mg/dL L 1.6-2.6 Vital Signs: All taken on the encounter date This section contains inpatient and outpatient Vital Signs collected on the date of the Encounter. Date/Time Temperature Pulse Blood Pressure Respiratory Rate SP02 Pain Height Weight Body Mass Index Source Jan 08, 2024 11:41 PM 0 [facility] Jan 08, 2024 10:45 PM 7 [facility] Jan 08, 2024 09:03 PM 97.9 72 155/87 19 99 7 [facility] Jan 08, 2024 04:42 PM 97.9 65 143/78 18 95 6 [facility] Jan 08, 2024 09:14 AM 6 [facility] N Social History: Smoking Status (Most current) and Tobacco Use (All prior to encounter date) This section includes the most current, and the historical, smoking and tobacco- related health factors from the AL facility where the Encounter took place. Current Smoking Status This section includes the most current smoking, or tobacco-related health factor, from the AL facility where the Encounter took place. Date/Time Current Smoking Status Comment Ester shearer Jun 21, 2023 01:14 PM ORYX ADMIT TOBACCO SCREEN NO [facility] Tobacco Use History This section includes a history of the smoking, or tobacco-related health factors, that were collected on or before the date of the Encounter. The data comes from the [place] facility where the Encounter took place. Date/Time Smoking Status/Tobacco Use Comment Max acility Dec 12, 2022 04:00 PM ORYX ADMIT TOBACCO SCREEN NO [facility] Jun 25, 2022 03:24 PM VA-TOBACCO FORMER USER [facility] Jun 25, 2022 03:24 PM VA-TOBACCO QUIT 15 YRS OR MORE [facility] Dec 23, 2021 04:59 PM ORYX ADMIT TOBACCO SCREEN REFUSED [facility] May 24, 2020 11:27 PM ORYX ADMIT TOBACCO SCREEN NO [facility] Dec 12, 2019 10:24 AM VA-TOBACCO FORMER USER [facility] Dec 12, 2019 10:24 AM VA-TOBACCO QUIT 15 YRS OR MORE [facility] Aug 03, 2019 02:11 AM ORYX ADMIT TOBACCO SCREEN REFUSED [facility] Oct 12, 2018 01:14 AM QUIT TOBACCO >7 YEARS AGO [facility] Oct 11, 2018 03:33 PM ORYX ADMIT TOBACCO SCREEN NO [facility] Sep 07, 2018 09:13 PM ORYX ADMIT TOBACCO SCREEN NO [facility] Sep 07, 2018 07:52 PM QUIT TOBACCO >7 YEARS AGO [facility] Advance Directives: All historical and current Section Date Range: From patient's date of to the date document was created. This section includes ALL of a patient's completed or amended [place] Advance and Rescinded Directives. The entries below indicate that a directive exists for the patient, but an actual copy is not included with this document. The data comes from all AL facilities. Date Advance Directives Provider Source Dec 17, 2022 ADVANCE DIRECTIVE BIJAN MERRITT PHAN [facility] Feb 09, 2020 ADVANCE DIRECTIVE DISCUSSION MELY LUCIANO [facility] Feb 02, 2018 ADVANCE DIRECTIVE EVELIATANIBEAUJEAN-PIERRE [facility] Nov 29, 2006 ADVANCE DIRECTIVE CHACONMARELY WANG Rahat [facility] Radiology Reports: +/- 30 days of [...] the Encounter. The data comes from all AL treatment facilities. Date/Time Radiology Report Provider Source Jan 07, 2024 08:01 PM CHEST PORTABLE: NAGI KATZ [id number] -1955 M Exm Date: JAN 07, 2024@20:01 Req Phys: ANNA CALI Loc: [facility]-EMERGENCY DEPT 3RD SHIFT (R Img Loc: -MAIN RADIOLOGY SUITE Service: Unknown (Case [id number] COMPLETE) CHEST PORTABLE (RAD Detailed) CPT:49509 Proc Modifiers : Portable Reason for Study: weakness, ESRD Clinical History: Report Status: Verified Date Reported: JAN 07, 2024 Date Verified: JAN 07, 2024 Respiratory Director E-Sig: Report: CHEST PORTABLE HISTORY: weakness, ESRD COMPARISON: July 26, 2023 TECHNIQUE: One view of the chest was performed at the local AL facility. images were received by the [place] National Teleradiology Program (NTP) for interpretation. FINDINGS: Bilateral peribronchial thickening. Patchy bilateral lower lobe lung opacities. Mildly tortuous aorta. No acute bony abnormalities. Impression: 1. Bilateral peribronchial thickening. 2. Patchy bilateral lung opacities likely represent atelectasis. 3. No pneumothorax. READING PHYSICIAN: Madhu Patton M.D. -[id number] 01/07/2024 19:10 [facility] National Teleradiology Program [phone] (For Medical Practitioner Use Only) Attention Patients / Veterans: If you have questions or concerns about these test results, please contact your ordering provider or primary care team. Primary Interpreting Staff: RADIOLOGY,OUTSIDE SERVICE, Staff Physician / RADIOLOGY,OUTSIDE SERVICE [facility] Encounter Notes: All associated encounter notes This section contains the clinical notes associated to the Encounter. Date/Time Encounter Note(s) Provider Source Jan 08, 2024 03:11 PM INITIAL EVALUATION NOTE: LOCAL TITLE: ANTICOAGULATION INITIAL NOTE STANDARD TITLE: INITIAL EVALUATION NOTE DATE OF NOTE: JAN 08, 2024@15:11 ENTRY DATE: JAN 08, 2024@15:12:02 AUTHOR: SUSAN THOMAS EXP COSIGNER: URGENCY: STATUS: COMPLETED ANTICOAGULATION INITIAL NOTE Has ADDENDA INPATIENT ANTICOAGULATION MONITORING NOTE NAGI KATZ is a 68 y/o evaluated today for anticoagulation monitoring. Subjective: Pt w/ PMH significant for gout, DM, THN, atrial fibrillation, CKD admitted for fatigue, poor appetite, and lethargy. Pt to start HD during this admission at this time. Nephrology following along. The purpose of this note is for inpatient anticoagulation monitoring. Indication for anticoagulation: atrial fibrillation Anticoagulant agent: apixaban Anticoagulant start date: 03/2021 Outpatient regimen verified with patient during admission: TBD- per team, vet is taking medications Anticipated anticoagulation duration: lifelong [id number] score = HTN, Age, DM, (3) HASBLED score = CKD, Age, HTN (160 systolic) (3) Active Inpatient Medications: 1) APIXABAN (PA-F) TAB,ORAL PO [...] 17) ACETAMINOPHEN TAB PO Q6H PRN 500MG Active Outpatient Medications: (for new admissions and discharge notes) Active and Recently Outpatient Medications (excluding Supplies): Active Outpatient Medications Status 1) APIXABAN [...] A DAY TO USE WITH INSULIN 8) INSULIN,ASPART(EQV-NOVLG)100U N/ML FLXPEN INJECT 10 ACTIVE UNITS UNDER THE [...] MINUTES AFTER THE SAME MEAL EACH DAY Inactive Outpatient Medications Status 1) EYELID CLEANSER,EYE SCRUB PAD USE/APPLY PAD BOTH EYES ONCE A DAY FOR EYELID HYGIENE FOR EXTERNAL USE ONLY. REMOVE CONTACT LENSES PRIOR TO USE. USE ON UPPER AND LOWER EYELIDS. DO NOT TOUCH EYES DIRECTLY 18 Total Medications Pertinent labs: HGB 11.5 L g/dL 01/07/2024 17:30 HCT 34.3 L % 01/07/2024 17:30 PLT 281 10*3/uL 01/07/2024 17:30 CREATININE 8.50 H mg/dL 01/08/2024 06:00 EGFR (CKD-EPI 2020) 6.3 L* 01/08/2024 06:00 AST/SGOT 18 U/L 01/07/2024 17:30 ALT/SGPT 17 U/L 01/07/2024 17:30 CrCl: pt to start HD Weight: 227.5 lb [103.19 kg] (01/07/2024 23:27) A/P: Anticoagulation - Pt is on apixaban 5 mg BID; dose appropriate for age, weight and renal function - Per [place] PBM CFU CrCl less than 30 ml/min: The net benefit of anticoagulation (warfarin or DOAC) in patients with severe renal impairment is unclear. Limited evidence exists on the use of DOACs in severe renal impairment and/or dialysis. When oral anticoagulation has been deemed appropriate, warfarin or apixaban is reasonable, and shared decision making between provider and patient (given the limited data to support efficacy and safety of DOACs in this population) should be used to determine the choice of agent. When a DOAC is used in this setting, apixaban is preferred. - Continue apixaban 5 mg BID at this time Monitoring: - H/H is low but chronic; Monitor q24-48H. - Plts are WNL - LFT - Daily CBC and BMP to monitor H/H/Plt and Scr while inpatient. - Monitor for s/sx of bleeding and thrombosis daily Bridging: - not indicated Significant drug interactions: - N/A Outpatient follow-up: - Followed by anticoagulation dashboard Is discharge anticipated? likely Thursday per chart review Does patient have adequate anticoagulation supply at home? - 10/14/23 (Mail) released 10/15/23 for 90 DS Anticoagulation education provided: TBD Inpatient team alerted of above recommendations and plan. Pharmacy will continue to monitor inpatient anticoagulation unless otherwise instructed by team. = Time spent: 10 minutes Will alert anticoagulation provider for awareness purposes only /edwar/ SUSAN THOMAS PHARMD, BCPS CLINICAL PULLER OVER Signed: 01/08/2024 15:21 Receipt Acknowledged By: 01/11/2024 08:23 /edwar/ NATHANIEL RICHARDSON, PHARM.D, [facility] CLINICAL PHARMACIST 01/11/2024 ADDENDUM STATUS: COMPLETED Attempted to educated by bedside; pt gone for dialysis; left educational handout by table with following information Education - Purpose of DOAC and how/when to take medication - Tablet/capsule identification and storage - Importance of medication adherence and management of missed doses - Signs/symptoms of bleeding and TE - Drug interactions (e.g. NSAIDS, ASA), required labs and follow-up - Risks associated with falling - Notifying PCP and anticoagulation clinic about any scheduled procedures/surgeries Will attempt to touch base with patient again when back from dialysis /edwar/ SUSAN THOMAS PHARMD, [facility] CLINICAL PULLER OVER Signed: 01/11/2024 07:36 01/11/2024 ADDENDUM STATUS: COMPLETED Discussed at bedside; vet confirms dose at home and confirms supply. No other questions identified at this time. Reports has enough at home. /edwar/ SUSAN THOMAS PHARMD, TANG CLINICAL PULLER OVER Signed: 01/11/2024 11:03 SUSAN THOMAS [facility]
--- OUTSIDE RECORDS SUMMARY | 2024-12-05 00:24 | XMS_ITS | Encounter Summary ---
Author Name [facility] [place] [facility] [place] Address [address] [place] [address] Care Team Providers Care Senior Design Engineer Name Role Phone ERIKA DEE Primary [...] PART A Jul 12, 2019 PART A [id number] [phone] PRASANNA KATZ PATIENT MEDICARE (WNR) MEDICARE (M) PART A Jul 12, 2019 PART A [id number] PRASANNA KATZ PATIENT Selected Encounter This section includes the information on [place] at [place] for the Encounter. Date/Time Encounter Type Encounter Description Reason Provider Source Nov 07, 2024 07:57 AM Outpatient Encounter GENERAL INTERNAL MEDICINE YENI COON Encounter Template Text not used by [place] Plan of Treatment: Future Appointments (+ 6 [...] 20 appointments. The data comes from all [facility]. Appointment Date/Time Appointment Type Appointme nt Facility Name Nov 15, 2024 08:00 AM AMBULATORY - NONE [facility] Nov 30, 2024 09:00 AM AMBULATORY - MEDICINE [facility] Nov 30, 2024 11:00 AM AMBULATORY - MEDICINE [facility] Dec 02, 2024 10:15 AM AMBULATORY - MEDICINE [facility] Dec 12, 2024 12:45 PM AMBULATORY - MEDICINE [facility] Dec 12, 2024 03:00 PM AMBULATORY - SURGERY [facility] Mar 20, 2025 10:30 AM AMBULATORY - MEDICINE [facility] Active, Pending, and Scheduled Orders This section includes a listing of several types of active, pending, and scheduled orders, including clinic medications orders, diagnostic test orders, procedure orders and consult orders; where the start date of the order is 45 days before the date of the Encounter or 45 days after the date of theEncounter. The data comes from all [facility]. Test Date/Time Test Type Test Details Facility Name Nov 16, 2024 12:16 PM Consult Order RENAL DUMAS SPLANT EVAL OUTPATIENT [facility] Cons Production Recorder's Choice [facility] Lab Results: +/- 30 days [...] Range Comment Dec 02, 2024 11:50 AM [facility] URINALYSIS W/ CX REFLEX (STL-PB) Specimen Type: URINE No comment entered. Ordering Provider: NIEVES MUHAMMAD MD Report Released Date/Time: Dec 02, 2024 10:33 AM Reporting Lab: [place] [id number] [facility] [address] Performing Lab: [place] [phone] URINE COLOR Colorless Yellow U.BILIRUBIN Negative mg/dL [...] GRAVITY 1.010 Dec 02, 2024 10:30 AM [facility] LIPASE Specimen Type: PLASMA Comment: No hemolysis noted. Ordering Provider: NIEVES MUHAMMAD MD Report Released Date/Time: Dec 02, 2024 10:33 AM Reporting Lab: [place] [address] [place] [address] Performing Lab: [place] [address] LIPASE 198 U/L H 8-78 Dec 02, 2024 10:30 AM [facility] APTT Specimen Type: PLASMA No comment entered. Ordering Provider: NIEVES MUHAMMAD MD Report Released Date/Time: Dec 02, 2024 10:33 AM Reporting Lab: [place] [address] [facility] [address] Performing Lab: [place] [phone] APTT 37.8 s 26.7-39.9 Dec 02, 2024 10:30 AM [facility] PT/INR NEW (STL-MA) Specimen Type: PLASMA No comment entered. Ordering Provider: NIEVES MUHAMMAD MD Report Released Date/Time: Dec 02, 2024 10:33 AM Reporting Lab: [facility] [address] [place] [phone] Performing Lab: [facility] [address] [place] [phone] PROTIME 14.4 s H 9.4-12.5 INR VALUE 1.3 {INR} Dec 02, 2024 10:30 AM [facility] COVID-19 DIAGNOSTIC (FLU/RSV)(STL) Specimen Type: NASOPHARYNX Comment: INFLUENZA A CALLED TO JORGE HANKINS RN [id number] Ordering Provider: NIEVES MUHAMMAD MD Report Released Date/Time: Dec 02, 2024 10:33 AM Reporting Lab: [address] [address] Performing Lab: [address] [address] INFLUENZA A POSITIVE INFLUENZA B NEGATIVE COVID-19 (Cepheid) NEGATIVE Negative COVID-19 (STL-PB) Not Detected Not Detected RSV (Cepheid) NEGATIVE Negative Dec 02, 2024 10:30 AM [facility] TROPONIN I Specimen Type: PLASMA No comment entered. Ordering Provider: NIEVES MUHAMMAD MD Report Released Date/Time: Dec 02, 2024 10:54 AM Reporting Lab: [address] [address] Performing Lab: [address] [address] TROPONIN I 0.058 ng/mL H 0-0.033 Dec 02, 2024 10:30 AM [facility] LIPASE Specimen Type: PLASMA No comment entered. Ordering Provider: NIEVES MUHAMMAD MD Report Released Date/Time: Dec 02, 2024 10:59 AM Reporting Lab: [address] [address] Performing Lab: [address] [address] LIPASE 201 U/L H 8-78 Dec 02, 2024 10:30 AM [facility] COMPREHENSIVE METABOLIC PANEL Specimen Type: PLASMA Comment: No hemolysis noted. Ordering Provider: NIEVES MUHAMMAD MD Report Released Date/Time: Dec 02, 2024 10:33 AM Reporting Lab: [address] [address] Performing Lab: [address] [address] CREATININE 9.62 mg/dL H 0.7-1.3 UREA NITROGEN [...] LL >60 Dec 02, 2024 10:30 AM [facility] CBC Specimen Type: BLOOD No comment entered. Ordering Provider: NIEVES MUHAMMAD MD Report Released Date/Time: Dec 02, 2024 10:33 AM Reporting Lab: [address] [address] Performing Lab: [address] [address] WBC 4.6 10*3/uL 3.6-11.2 RBC 3.71 10*6/uL [...] 10*3/uL 0.00-0.20 Dec 02, 2024 10:30 AM [facility] RESPIRATORY PCR PANEL Specimen Type: NASOPHARYNX Comment: [id number] Alert sent : Flu A typing only. [employer] RP Panel combines nested multiplex PCR and [...] the clinician evaluating the patient. Rylan KOEHLER, ([phone]) Ordering Provider: DEISY PURCELL Report Released Date/Time: Dec 02, 2024 11:50 AM Reporting Lab: [facility] [address] [facility] [address] Performing Lab: [facility] [address] [facility] [phone] *Adenovirus (BF) Not Detected Not Detected *Coronavirus [...] 01:14 PM ORYX ADMIT TOBACCO SCREEN NO [facility] Tobacco Use History This section includes a history of the smoking, or tobacco-related health factors, that were collected on or before the date of the Encounter. The data comes from the [place] facility where the Encounter took place. Date/Time Smoking Status/Tobacco Use Comment F acility Dec 12, 2022 04:00 PM ORYX ADMIT TOBACCO SCREEN NO [facility] Jun 25, 2022 03:24 PM VA-TOBACCO FORMER USER [facility] Jun 25, 2022 03:24 PM VA-TOBACCO QUIT 15 YRS OR MORE [facility] Dec 23, 2021 04:59 PM ORYX ADMIT TOBACCO SCREEN REFUSED [facility] May 24, 2020 11:27 PM ORYX ADMIT TOBACCO SCREEN NO [facility] Dec 12, 2019 10:24 AM VA-TOBACCO FORMER USER [facility] Dec 12, 2019 10:24 AM VA-TOBACCO QUIT 15 YRS OR MORE [facility] Aug 03, 2019 02:11 AM ORYX ADMIT TOBACCO SCREEN REFUSED [facility] Oct 12, 2018 01:14 AM QUIT TOBACCO >7 YEARS AGO [facility] Oct 11, 2018 03:33 PM ORYX ADMIT TOBACCO SCREEN NO [facility] Sep 07, 2018 09:13 PM ORYX ADMIT TOBACCO SCREEN NO [facility] Sep 07, 2018 07:52 PM QUIT TOBACCO >7 YEARS AGO [facility] Advance Directives: All historical and [...] Dec 17, 2022 ADVANCE DIRECTIVE BIJAN MERRITT [facility] Feb 09, 2020 ADVANCE DIRECTIVE DISCUSSION MELY LUCIANO [facility] Feb 02, 2018 ADVANCE DIRECTIVE BEAU ALTAMIRANO [facility] Nov 29, 2006 ADVANCE DIRECTIVE MARELY CHACON [facility] Radiology Reports: +/- 30 days of the [...] 2024 12:00 PM CHEST PORTABLE: NAGI KATZ [id number] -1955 M Exm Date: DEC 02, 2024@12:00 Req Phys: NIEVES MUHAMMAD MD Pat Loc: -EMERGENCY DEPT 2ND SHIFT (R Img Loc: -MAIN RADIOLOGY SUITE Service: [facility], [facility] [address] [place] [address] (Case [id number] COMPLETE) CHEST PORTABLE (RAD Detailed) CPT:00518 Proc Modifiers : Portable Reason for Study: cough Clinical History: Report Status: Verified Date Reported: DEC 02, 2024 Date Verified: DEC 02, 2024 Acid Tank Cleaner E-Sig:/EDWAR/ED ORDONEZ Report: EXAM: CHEST PORTABLE COMPARISON: 01/07/2024. HISTORY: cough FINDINGS: The heart size and pulmonary vasculature are normal. There is no consolidating infiltrate, effusion or pneumothorax. Impression: No active lung disease. RR Primary Interpreting Staff: ED ORDONEZ, Staff Physician (Acid Tank Cleaner) /ED GREWAL [facility] Nov 15, 2024 07:[address] ABD PEL W/O CON T & 3D: NAGI KATZ [id number] -1955 M Exm Date: NOV 15, 2024@07:20 Req Phys: KIMBERLY PURCELL Pat Loc: [facility] NP2 (Req'g Loc) Img Loc: [facility]AGING [facility] Service: [address] [address] (Case [id number] COMPLETE) CT ABDOMEN AND PELVIS W/O CONTRAS(CT Detailed) CPT:07720 Reason for Study: to r/o abdominal wall hernia Clinical History: Responsible Attending: Dr. Ye Attending Contact Number: [phone] Resident Contact Number: To rule out abdominal wall hernia Allergies listed in CPRS chart: MORPHINE Creatinine:CREATININE 7.69 H mg/dL 02/09/2024 12:40 /eGFR: STL EGFR (within one year). CREATININE 7.69 mg/dL H (02/09/24 12:40) Wt: 226.8 lb [102.87 kg] (05/16/2024 14:10) History of: Renal failure, chronic or acute renal disease: YES Report Status: Verified Date Reported: NOV 15, 2024 Date Verified: NOV 15, 2024 Acid Tank Cleaner E-Sig:/ES/JOSE BARRERA MD Report: Spiral axial imaging [...] Primary Interpreting Staff: JOSE BARRERA MD, Radiologist (Acid Tank Cleaner) /JOSE YANG [facility] Encounter Notes: All associated encounter notes This section contains the clinical notes associated to the Encounter. Date/Time Encounter Note(s) Provider Source Oct 25, 2024 07:57 AM NONVA NOTE: LOCAL TITLE: [facility] PRESENTING CARE COORD PLAN STANDARD TITLE: NONVA NOTE DATE OF NOTE: OCT 25, 2024@07:57 ENTRY DATE: NOV 07, 2024@07:57:29 AUTHOR: NENA COON EXP COSIGNER: URGENCY: STATUS: COMPLETED Emergency Notification Intake Date Presenting to the Facility: Oct Method of Contact: Submitted to Centralized Call Center Notification ID: [id number] [facility] Referral #: [id number] [facility] Name: Hospital: [facility] Address: City: [place] State: [place] Zip Code: Phone : [facility] Point of Contact: Name: Phone: Chief complaint: chest pain Primary Diagnosis: Disposition Discharged Date of discharge: Oct Discharge to home DC SUMMARY AND RELEVANT RECORDS RECEIVED VIA RIGHTFAX. SENT TO [facility] TO BE SCANNED INTO CPRS Alerting PCP team to this note for continuity of care. /edwar/ NENA MANCIAN RN REGISTERED NURSE Signed: 11/07/2024 08:01 Receipt Acknowledged By: 11/07/2024 08:09 /edwar/ BLU MARTE Staff Physician 11/07/2024 12:14 /edwar/ Uriel J Pepper Rn, BSN REGISTERED NURSE NENA COON [facility]
--- OUTSIDE RECORDS SUMMARY | 2024-12-05 00:24 | XMS_ITS | Encounter Summary ---
Author Name [facility] [place] [facility] [place] [facility] [place] [facility] [place] Address [address] [place] [address] Care Team Providers Care Private Security Guard Name Role Phone ERIKA DEE Primary Care [...] PART A Jul 12, 2019 PART A [id number] [phone] PRASANNA KATZ PATIENT MEDICARE (WNR) MEDICARE (M) PART A Jul 12, 2019 PART A [id number] [phone] PRASANNA KATZ PATIENT Selected Encounter This section includes the information on record at [place] for the Encounter. Date/Time Encounter Type Encounter Description Reason Provider Source Feb 09, 2024 12:30 PM TREATED WATER PER [facility] ICD-10-CM N18.6 End stage renal disease KALEY PARR IHJono Encounter Template Text not used by [place] Assessments - Encounter Diagnoses This section includes the primary and secondary diagnoses documented for the Encounter. Date/Time Primary/Secondary Diagnosis Diagnosis Name Provider Source Feb 09, 2024 04:42 PM PRIMARY End stage renal disease [employer] Plan of Treatment: Future Appointments (+ 6 months) and Future Tests (+/- 45 days) The Plan of Treatment section includes future care activities for the patient from all [place] treatmentfacilities. This section includes future appointments and future orders which are active, pending or scheduled. Future Appointments This section includes appointments that were scheduled to occur 6 months from the date of the Encounter, up to a maximum of 20 appointments. The data comes from all [place] treatment facilities. Appointment Date/Time Appointment Type Appointme nt Facility Name February 11, 2024 12:30 PM AMBULATORY - MEDICINE [facility] February 13, 2024 12:30 PM AMBULATORY - MEDICINE [facility] February 15, 2024 08:00 AM AMBULATORY - NONE [facility] February 15, 2024 08:30 AM AMBULATORY - MEDICINE [facility] Apr 05, 2024 09:30 AM AMBULATORY - MEDICINE [facility] Apr 27, 2024 07:30 AM [facility] May 02, 2024 08:00 AM AMBULATORY - NONE [facility] May 02, 2024 08:30 AM AMBULATORY - MEDICINE [facility] May 16, 2024 02:00 PM AMBULATORY - MEDICINE [facility] Jul 12, 2024 08:00 AM AMBULATORY - NONE [facility] Jul 12, 2024 08:30 AM AMBULATORY - MEDICINE [facility] Lab Results: +/- 30 days of the encounter This section includes the Chemistry and Hematology Lab Results on record with [place] for the patient. Radiology Reports and Pathology Reports are provided separately, in subsequent sections. Lab Results This section contains the Chemistry/Hematology Results that were resulted 30 days before or 30 daysafter the date of the Encounter. Date/Time Source Result Type Result - Unit Interpretation Reference Range Comment Feb 09, 2024 12:40 PM [facility] HEP B CORE AB TOTAL. (STL) Specimen Type: SERUM No comment entered. Ordering Provider: CHENG PURCELL Report Released Date/Time: Feb 09, 2024 10:43 AM Reporting Lab: [facility] [address] [place] [phone] Performing Lab: [address] [address] HEP B CORE AB TOTAL. (STL) Nonreactive Nonreactive Feb 09, 2024 12:40 PM [facility] HEP HB S Ag ([place]USRI[place]) (STL) Specimen Type: SERUM No comment entered. Ordering Provider: CHENG PURCELL Report Released Date/Time: Feb 09, 2024 10:43 AM Reporting Lab: [address] [address] Performing Lab: [address] [address] HEP HB S Ag ([place]) (STL) Nonreactive Nonreactive Feb 09, 2024 12:40 PM [facility] HEPATITIS B SURFACE AB PNL Specimen Type: SERUM No comment entered. Ordering Provider: CHENG PURCELL Report Released Date/Time: Feb 09, 2024 10:43 AM Reporting Lab: [facility] [address] [place] [address] Performing Lab: [address] [address] HEP B Surface Ab-HBsAB (L) REACTIVE m[IU]/mL Nonreactive HEP Bs AB-QUANT (L) 79.36 m[IU]/mL Feb 09, 2024 12:40 PM [facility] RENAL PANEL Specimen Type: PLASMA Comment: No hemolysis noted. Ordering Provider: CHENG PURCELL Report Released Date/Time: Feb 04, 2024 03:20 PM Reporting Lab: [facility] [address] [place] [phone] Performing Lab: [address] [address] CREATININE 7.69 mg/dL H 0.7-1.3 UREA NITROGEN 52.2 mg/dL H 9.0-25.0 GLUCOSE 147 mg/dL H 72-99 SODIUM 142 meq/L 136-145 POTASSIUM 4.1 meq/L 3.5-5 CHLORIDE 107 meq/L 98-107 CARBON DIOXIDE 22 meq/L 22-31 CALCIUM 10.2 mg/dL 8.4-10.4 PHOSPHOROUS 3.7 mg/dL 2.3-4.7 ALBUMIN 3.7 g/dL 3.4-5 EGFR (CKD-EPI 2020) 7.1 LL >60 Feb 09, 2024 12:40 PM [facility] CBC Specimen Type: BLOOD No comment entered. Ordering Provider: CHENG PURCELL Report Released Date/Time: Feb 04, 2024 03:20 PM Reporting Lab: [place] [id number] [facility] [address] Performing Lab: [address] [address] WBC 9.7 10*3/uL 3.6-11.2 RBC 3.09 10*6/uL [...] 10*3/uL 0.00-0.20 Feb 04, 2024 05:00 PM [facility] URR-POST PANEL (STL) Specimen Type: PLASMA No comment entered. Ordering Provider: CHENG PURCELL Report Released Date/Time: Feb 04, 2024 01:42 PM Reporting Lab: [address] [address] Performing Lab: [address] [address] BUN-POST DIALYSIS 16.2 mg/dL 9.0-25.0 URR (STL) 70.4 67.0-100.0 Feb 04, 2024 12:45 PM [facility] RENAL PANEL Specimen Type: PLASMA Comment: No hemolysis noted. Ordering Provider: CHENG PURCELL Report Released Date/Time: Feb 04, 2024 01:42 PM Reporting Lab: [address] [address] Performing Lab: [address] [address] CREATININE 6.97 mg/dL H 0.7-1.3 UREA NITROGEN 54.7 mg/dL H 9.0-25.0 GLUCOSE 134 mg/dL H 72-99 SODIUM 142 meq/L 136-145 POTASSIUM 4.0 meq/L 3.5-5 CHLORIDE 105 meq/L 98-107 CARBON DIOXIDE 24 meq/L 22-31 CALCIUM 9.7 mg/dL 8.4-10.4 PHOSPHOROUS 4.8 mg/dL H 2.3-4.7 ALBUMIN 3.9 g/dL 3.4-5 EGFR (CKD-EPI 2020) 7.9 LL >60 Feb 02, 2024 04:30 PM [facility] URR-POST PANEL (STL) Specimen Type: PLASMA No comment entered. Ordering Provider: CHENG PURCELL Report Released Date/Time: Feb 02, 2024 03:39 PM Reporting Lab: [address] [address] Performing Lab: [address] [address] BUN-POST DIALYSIS 22.9 mg/dL 9.0-25.0 URR (STL) 60.9 L 67.0-100.0 Feb 02, 2024 11:50 AM [facility] RENAL PANEL Specimen Type: PLASMA Comment: No hemolysis noted. Ordering Provider: CHENG PURCELL Report Released Date/Time: Feb 02, 2024 07:35 AM Reporting Lab: [place] [id number] [facility] [address] Performing Lab: [facility] [address] [facility] [address] CREATININE 8.34 mg/dL H 0.7-1.3 UREA NITROGEN 58.6 mg/dL H 9.0-25.0 GLUCOSE 169 mg/dL H 72-99 SODIUM 142 meq/L 136-145 POTASSIUM 4.6 meq/L 3.5-5 CHLORIDE 111 meq/L H 98-107 CARBON DIOXIDE 20 meq/L L 22-31 CALCIUM 9.2 mg/dL 8.4-10.4 PHOSPHOROUS 3.6 mg/dL 2.3-4.7 ALBUMIN 3.7 g/dL 3.4-5 EGFR (CKD-EPI 2020) 6.4 LL >60 Feb 01, 2024 11:00 PM [facility] 24H UR CHEM PANEL (STL) Specimen Type: 24-HOUR URINE No comment entered. Ordering Provider: CHENG PURCELL Report Released Date/Time: Jan 28, 2024 04:55 PM Reporting Lab: [facility] [address] [facility] [address] Performing Lab: [address] [address] VOLUME 3289 mL SODIUM 24-HOUR URINE 226.941 H 40-220 POTASSIUM 24-HOUR URINE 35.8501 25-125 CHLORIDE 24-HOUR URINE 171.028 110-250 PROTEIN 24-HOUR URINE 1986.556 H 0-299.9 CREATININE 24-HOUR URINE 2078.694 323-9142 Jan 28, 2024 05:29 PM [facility] CBC Specimen Type: BLOOD No comment entered. Ordering Provider: CHENG PURCELL Report Released Date/Time: Jan 28, 2024 05:07 PM Reporting Lab: [facility] [address] [facility] [address] Performing Lab: [facility] [address] [facility] [address] WBC 8.9 10*3/uL 3.6-11.2 RBC 2.96 10*6/uL [...] 10*3/uL 0.00-0.20 Jan 26, 2024 01:00 PM [facility] PTH, INTACT (STL) Specimen Type: SERUM No comment entered. Ordering Provider: CHENG PURCELL Report Released Date/Time: Jan 21, 2024 03:14 PM Reporting Lab: [facility] [address] [facility] [address] Performing Lab: [address] [address] PTH, INTACT (STL) 141.40 pg/mL H 8.7-77.7 Jan 26, 2024 01:00 PM [facility] RENAL PANEL Specimen Type: PLASMA Comment: No hemolysis noted. Ordering Provider: CHENG PURCELL Report Released Date/Time: Jan 21, 2024 03:14 PM Reporting Lab: [facility] [address] [facility] [address] Performing Lab: [address] [address] CREATININE 8.25 mg/dL H 0.7-1.3 UREA NITROGEN 63.1 mg/dL H 9.0-25.0 GLUCOSE 157 mg/dL H 72-99 SODIUM 137 meq/L 136-145 POTASSIUM 4.2 meq/L 3.5-5 CHLORIDE 100 meq/L 98-107 CARBON DIOXIDE 26 meq/L 22-31 CALCIUM 9.6 mg/dL 8.4-10.4 PHOSPHOROUS 4.9 mg/dL H 2.3-4.7 ALBUMIN 3.7 g/dL 3.4-5 EGFR (CKD-EPI 2020) 6.5 LL >60 Jan 26, 2024 01:00 PM [facility] IRON/TIBC PROFILE Specimen Type: SERUM No comment entered. Ordering Provider: CHENG PURCELL Report Released Date/Time: Jan 21, 2024 03:14 PM Reporting Lab: [address] [address] Performing Lab: [address] [address] TIBC 225 ug/dL L 250-450 TRANSFERRIN 180 mg/dL 163-344 IRON SATURATION 23 20-50 IRON 52 ug/dL L 65-175 Jan 26, 2024 01:00 PM [facility] FERRITIN Specimen Type: SERUM No comment entered. Ordering Provider: CHENG PURCELL Report Released Date/Time: Jan 21, 2024 03:14 PM Reporting Lab: [facility] [address] [place] [phone] Performing Lab: [address] [address] FERRITIN 118.78 ng/mL 22-275 Jan 26, 2024 01:00 PM [facility] CBC Specimen Type: BLOOD No comment entered. Ordering Provider: CHENG PURCELL Report Released Date/Time: Jan 21, 2024 03:14 PM Reporting Lab: [facility] [address] [facility] [address] Performing Lab: [place] [address] [facility] [address] WBC 7.8 10*3/uL 3.6-11.2 RBC 2.95 10*6/uL [...] 10*3/uL 0.00-0.20 Jan 21, 2024 12:55 PM [facility] PT/INR NEW ([facility]) Specimen Type: PLASMA No comment entered. Ordering Provider: CHENG PURCELL Report Released Date/Time: Jan 21, 2024 12:43 PM Reporting Lab: [place] [address] [facility] [address] Performing Lab: [address] [address] PROTIME 15.9 s H 9.4-12.5 INR VALUE 1.4 {INR} Jan 21, 2024 12:55 PM [facility] RENAL PANEL Specimen Type: PLASMA Comment: No hemolysis noted. Ordering Provider: CHENG PURCELL Report Released Date/Time: Jan 21, 2024 12:41 PM Reporting Lab: [facility] [address] [facility] [address] Performing Lab: [address] [address] CREATININE 8.11 mg/dL H 0.7-1.3 UREA NITROGEN 82.6 mg/dL H 9.0-25.0 GLUCOSE 114 mg/dL H 72-99 SODIUM 139 meq/L 136-145 POTASSIUM 5.1 meq/L H 3.5-5 CHLORIDE 109 meq/L H 98-107 CARBON DIOXIDE 19 meq/L L 22-31 CALCIUM 9.3 mg/dL 8.4-10.4 PHOSPHOROUS 4.1 mg/dL 2.3-4.7 ALBUMIN 3.8 g/dL 3.4-5 EGFR (CKD-EPI 2020) 6.6 LL >60 Jan 14, 2024 11:55 AM [facility] RENAL PANEL Specimen Type: PLASMA Comment: No hemolysis noted. Ordering Provider: CHENG PURCELL Report Released Date/Time: Jan 13, 2024 07:58 AM Reporting Lab: [address] [address] Performing Lab: [address] [address] CREATININE 8.05 mg/dL H 0.7-1.3 UREA NITROGEN 70.7 mg/dL H 9.0-25.0 GLUCOSE 155 mg/dL H 72-99 SODIUM 140 meq/L 136-145 POTASSIUM 5.1 meq/L H 3.5-5 CHLORIDE 107 meq/L 98-107 CARBON DIOXIDE 21 meq/L L 22-31 CALCIUM 9.6 mg/dL 8.4-10.4 PHOSPHOROUS 4.8 mg/dL H 2.3-4.7 ALBUMIN 4.1 g/dL 3.4-5 EGFR (CKD-EPI 2020) 6.7 LL >60 Jan 11, 2024 11:36 AM [facility] GLUCOSE,BLOOD-poct (STL) Specimen Type: BLOOD Comment: Test Performed by: [id number] Meter #: [id number] Ordering Provider: LIDIA HUYNH Report Released Date/Time: Jan 11, 2024 11:50 AM Reporting Lab: [address] [address] Performing Lab: [address] [address] GLUCOSE,BLOOD -poct (STL) 106 mg/dL H 72-Jan 11, 2024 11:07 AM [facility] GLUCOSE,BLOOD-poct (STL) Specimen Type: BLOOD Comment: Test Performed by: [id number] Meter #: [id number] Ordering Provider: LIDIA HUYNH Report Released Date/Time: Jan 11, 2024 11:18 AM Reporting Lab: [address] [address] Performing Lab: [address] [address] GLUCOSE,BLOOD -poct (STL) 109 mg/dL H 72-Jan 11, 2024 05:12 AM [facility] GLUCOSE,BLOOD-poct (STL) Specimen Type: BLOOD Comment: Test Performed by: [id number] Meter #: [id number] Ordering Provider: LIDIA HUYNH Report Released Date/Time: Jan 11, 2024 05:25 AM Reporting Lab: [address] [address] Performing Lab: [address] [address] GLUCOSE,BLOOD -poct (STL) 88 mg/dL Social History: Smoking Status (Most current) and [...] 01:14 PM ORYX ADMIT TOBACCO SCREEN NO [facility] Tobacco Use History This section includes a history of the smoking, or tobacco-related health factors, that were collected on or before the date of the Encounter. The data comes from the [place] facility where the Encounter took place. Date/Time Smoking Status/Tobacco Use Comment F acility Dec 12, 2022 04:00 PM ORYX ADMIT TOBACCO SCREEN NO [facility] Jun 25, 2022 03:24 PM VA-TOBACCO FORMER USER [facility] Jun 25, 2022 03:24 PM VA-TOBACCO QUIT 15 YRS OR MORE [facility] Dec 23, 2021 04:59 PM ORYX ADMIT TOBACCO SCREEN REFUSED [facility] May 24, 2020 11:27 PM ORYX ADMIT TOBACCO SCREEN NO [facility] Dec 12, 2019 10:24 AM VA-TOBACCO FORMER USER [facility] Dec 12, 2019 10:24 AM VA-TOBACCO QUIT 15 YRS OR MORE [facility] Aug 03, 2019 02:11 AM ORYX ADMIT TOBACCO SCREEN REFUSED [facility] Oct 12, 2018 01:14 AM QUIT TOBACCO >7 YEARS AGO [facility] Oct 11, 2018 03:33 PM ORYX ADMIT TOBACCO SCREEN NO [facility] Sep 07, 2018 09:13 PM ORYX ADMIT TOBACCO SCREEN NO [facility] Sep 07, 2018 07:52 PM QUIT TOBACCO >7 YEARS AGO [facility] Advance Directives: All historical and current [...] Dec 17, 2022 ADVANCE DIRECTIVE BIJAN MERRITT [facility] Feb 09, 2020 ADVANCE DIRECTIVE DISCUSSION MELY LUCIANO [facility] Feb 02, 2018 ADVANCE DIRECTIVE BEAU ALTAMIRANO [facility] Nov 29, 2006 ADVANCE DIRECTIVE MARELY CHACNO [facility] Encounter Notes: All associated encounter notes This section contains the clinical notes associated to the Encounter. Date/Time Encounter Note(s) Provider Source Feb 09, 2024 05:29 PM DIALYSIS NOTE: LOCAL TITLE: HEMODIALYSIS RUNSHEET APPOINTMENT [facility] STANDARD TITLE: DIALYSIS NOTE DATE OF NOTE: FEB 09, 2024@17:29:07 ENTRY DATE: FEB 09, 2024@17:29:07 AUTHOR: 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 COSIGNER: URGENCY: routine STATUS: COMPLETED Dialysis [place] Appointment on Feb 09, 2024@12:42 Patient: NAGI KATZ Treatment Date: 09-Feb-2024 Status: Discharged Latest Lab Result: URR: (, ) Kt/V: (, ) HgB: (, ) HCT: (, ) Diagnosis: End stage renal disease Patient Type: Inpatient Allergies: MORPHINE Resuscitate: [x] YES [ ] NO HD Summary Tables TREATMENT SUMMARY Treatment Start Time 09-Feb-2024 124 Treatment End Time 09-Feb-2024 1642 Duration(ordered): 4:00 Duration(manually adjusted): 3:59 Weights (Kg) and Fluid Removed (L): Date Pre Weight Target Weight Post Weight Excess Weight IDW Goal Weight Target UF Achieved UF Current 101.70 0.00 101.20 101.70 -0.30 0.00 0.50 1.21 06-Feb-2024 103.00 0.00 102.90 103.00 -0.20 0.00 0.50 0.91 04-Feb-2024 102.50 0.00 103.20 102.50 1.00 0.00 0.50 0.91 Blood Pressures (mmHg) & Fluid intake (mL) during treatment: Date Pre BP Post BP Lowest BP Highest BP IVF Given (mL) PO Fluid (mL) Current Sitting 170/75 Sitting 128/60 117/58 154/70 0.40 Standing 116/68 -- -- -- -- 06-Feb-2024 Sitting 117/59 Standing 135/54 104/58 133/64 0.40 Sitting 113/63 Standing 140/67 -- -- -- -- 04-Feb-2024 Sitting 154/71 Sitting 164/75 143/73 175/70 0.40 Sitting 144/74 Standing 158/79 -- -- -- -- Pulse and Temp: Date Pre Pulse Post Pulse Lowest Pulse Highest Pulse Pre Temp Post Temp Current Sitting 69 Sitting 57 57 67 98.0 98.1 Standing 62 -- -- -- -- 06-Feb-2024 Sitting 60 Standing 57 51 64 97.3 97.9 Sitting 59 Standing 60 -- -- -- -- 04-Feb-2024 Sitting 68 Sitting 60 58 69 98.1 97.7 Sitting 66 Standing 72 -- -- -- -- HD Times Date Prescribed Time Achieved Time Treatment Start Treatment End Current 4:00 3:59 1242 1642 06-Feb-2024 4:00 3:59 1145 1545 04-Feb-2024 4:00 4:00 1258 1659 Day's Order _ Related Problem: End stage renal disease Access Type: Fistula Access Site: VIRGIE Backup Access: Backup Access Site: Needle Gauge: 15 gauge 1 Freezing: [ ] YES [x] NO Machine Type: [place] Isolation: [ ] YES [x] NO Conventional HD Prosthesis(kg): Wheelchair(kg): Target Weight(kg): 0.00 Duration(h): 4:00 or Target UF(kg): 0.50 Frequency(x/wk): 3.00 Dialysate Temp(C): 37.00 Dialysis Type: [ ] daytime [ ] nocturnal Prescribed BVP(L): Dialysate Type: Saline Inf. (mL): FREIGHT RATE ANALYST Blood Flow(ml/min): Hemodiafiltr. Volume(l): Hemodiafiltr. Fluid [...] Value Comments Verified Verified Time Verified By 1254 Needle Gauge 15 gauge 1 info updated [...] [x] NO Hemostasis Time: Arterial Port (min): 5 Venous Port (min): 5 Cannulated Glen: 1 Staff: GRACIELA MACEDO Cannulated Art: 1 Staff: GRACIELA MACEDO General: Today's Assessment: === Predialysis ===== Extra Treatment: [ ] YES [x] NO Received From: Staff On: 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 Station: Chair 10 Machine #: C - 19 Resp Caregiver: Treat Caregiver: Arrival Time: Mode: walking By/With: unaccompanied Vital Signs Temp(C): 98.00 Resp: 16 Time: 1226 Sitting BP: 170/75 Sitting Pulse: 69 Time: BP: Pulse: Weights Measure Wt(kg): 102.60 Target Weight(kg): 0.00 Prosthesis Wt(kg): 0.90 or Target UF(kg): 0.50 Wheelchair Wt(kg): Weight Change(kg): -0.30 Current Wt(kg): 101.70 Excess Weight(kg): 101.70 Total Fluid Admin(kg): 0.40 Expected UF Vol(kg): 102.10 Target TMP(mm/Hg): UFR(kg/hr : ml/kg/hr): 25.42 : ? Patient Condition: Nursing Assessment: 09-Feb-2024 1342 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 MONT[place]I PARAPROFESSIONAL PRE-ASSESSMENT MENTAL STATUS: [xxxxx ]Alert & Oriented x 3 Comment:[ [ [...] lower lobe [ ]Bilateral Comment:[ EDEMA: [ xxxxxx]No edema noted [ ]Face [ ]Abdomen [ ]Bilateral UE [ ]Left UE [ ]Right UE [ ] Bilateral LE [ ]Left LE [ ]Right LE Comment:[ Comments: no complications with start of treatment. labs drawn. reviewed meds, hemodialyis session and fluid removal. understanding verbalized. Acknowledged On: By: Pain: Acuity: 0 Type: Location: Measures: Heparin: Pump Start At: By: Hourly Rate: Bolus: Same Syringe: [ ] YES [x] NO Total in Syringe: Verified By: Time: Communication: Preferred Language: Comoran Providier Proficient: [ ] YES [x] NO Rattan Worker Desired: [ ] YES [x] NO Offered: [ ] YES [x] NO === Dialysis Log = DIALYSIS LOG Start Date/Time: 09-Feb-2024 1242 Table 1: Dialysis Data Time BP MAP Pulse BFR BVP AP FREIGHT RATE ANALYST TMP UFR TFR HEP Hep Com 1242 230 0.0 -30 60 40 0.25 : ? 0.00 0.0 1243 140/73 0.0 67 360 0.4 -130 160 25 0.25 : ? 0.00 0.0 1258 144/70 0.0 63 400 6.3 -160 210 15 0.31 : ? 0.07 0.0 1313 150/76 0.0 62 400 12.3 -170 200 15 0.31 : ? 0.15 0.0 1328 153/70 0.0 60 400 18.3 -160 200 20 0.31 : ? 0.22 0.0 1344 141/72 0.0 60 400 24.5 -160 200 15 0.31 : ? 0.32 0.0 1359 153/69 0.0 61 400 30.5 -160 190 20 0.31 : ? 0.39 0.0 1413 147/68 0.0 62 400 36.3 -160 180 15 0.31 : ? 0.46 0.0 1431 145/67 0.0 60 400 43.1 -160 180 20 0.31 : ? 0.56 0.0 1444 154/70 0.0 59 400 48.5 -160 180 20 0.31 : ? 0.63 0.0 1459 145/73 0.0 60 400 54.5 -150 180 15 0.31 : ? 0.71 0.0 1513 148/64 0.0 59 400 60.3 -160 180 20 0.31 : ? 0.78 0.0 1528 154/58 0.0 61 400 66.3 -160 170 15 0.31 : ? 0.85 0.0 1543 0.0 1544 118/55 0.0 59 400 72.5 -160 170 15 0.29 : ? 0.92 0.0 1544 0.0 1559 117/58 0.0 58 400 78.5 -160 170 0 0.28 : ? 1.00 0.0 1614 123/60 0.0 57 400 84.5 -160 170 15 0.28 : ? 1.07 0.0 1629 129/58 0.0 58 400 90.5 -160 170 15 0.28 : ? 1.14 0.0 1642 0 95.8 -30 70 -60 0.00 : ? 1.21 0.0 1543 0.0 Table 2: Dialysate Bath Time DFR ADV Temp K Ca Na HC03 1242 600.00 37.00 2.00 3.00 0.00 0.00 1243 600.00 37.00 2.00 3.00 0.00 0.00 1258 600.00 37.00 2.00 3.00 0.00 0.00 1313 600.00 37.00 2.00 3.00 0.00 0.00 1328 600.00 37.00 2.00 3.00 0.00 0.00 1344 600.00 36.90 2.00 3.00 0.00 0.00 1359 600.00 37.00 2.00 3.00 0.00 0.00 1413 600.00 36.90 2.00 3.00 0.00 0.00 1431 600.00 37.00 2.00 3.00 0.00 0.00 1444 600.00 36.90 2.00 3.00 0.00 0.00 1459 600.00 37.00 2.00 3.00 0.00 0.00 1513 600.00 36.90 2.00 3.00 0.00 0.00 1528 600.00 37.00 2.00 3.00 0.00 0.00 1543 1544 600.00 37.00 2.00 3.00 0.00 0.00 1544 1559 600.00 37.00 2.00 3.00 0.00 0.00 1614 600.00 36.90 2.00 3.00 0.00 0.00 1629 600.00 37.00 2.00 3.00 0.00 0.00 1642 600.00 36.90 2.00 3.00 0.00 0.00 1543 Table 3: Patient Assessment Acknowledge Time Author Access Visible Patient Status [x] YES [ ] NO start of treatment 09-Feb-2024 1255 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 N [x] YES [ ] NO resting in no distress 09-Feb-2024 134 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 N [x] YES [ ] NO resting in no distress 09-Feb-2024 134 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 N [x] YES [ ] NO resting in no distress 09-Feb-2024 1343 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 N [x] YES [ ] NO resting in no distress 09-Feb-2024 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 N [x] YES [ ] NO resting in no distress 09-Feb-2024 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 N [x] YES [ ] NO resting in no distress 09-Feb-2024 143 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 N [x] YES [ ] NO resting in no distress 09-Feb-2024 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 N [x] YES [ ] NO resting in no distress 09-Feb-2024 1538 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 N [x] YES [ ] NO resting in no distress 09-Feb-2024 1538 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 N [x] YES [ ] NO resting in no distress 09-Feb-2024 1538 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 N [x] YES [ ] NO resting in no distress 09-Feb-2024 153 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 N [x] YES [ ] NO resting in no distress 09-Feb-2024 1543 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 N [ ] YES [x] NO 09-Feb-2024 1603 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 N [x] YES [ ] NO resting in no distress 09-Feb-2024 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 N [ ] YES [x] NO 09-Feb-2024 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 [x] YES [ ] NO resting inno distress 09-Feb-2024 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 [ ] YES [x] NO resting in no distress 09-Feb-2024 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 [x] YES [ ] NO resting in no distress 09-Feb-2024 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 N [x] YES [ ] NO end of treatment 09-Feb-2024 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 [ ] YES [x] NO === Medication Log Medication Log Start Date/Time: 09-Feb-2024 Medication: Time: 1542 Nurse: 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 2nd parts expediter: Medication/Blood: LIDOCAINE 2.5/PRILOCAINE 2.5% CREAM Dosage/Units: Not given Route: Unused Amount: 0.00 IV Flush(mL): Admin Comments: Reason Not Given: Medication: Time: 1542 Nurse: 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 2nd parts expediter: Medication/Blood: PARICALCITOL 2MCG/ML SOLN INJ Dosage/Units: 2.00 mcg Route: IV PUSH Unused Amount: 0.00 IV Flush(mL): Admin Comments: [id number] Reason Not Given: Medication: Time: 1543 Nurse: 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 2nd parts expediter: Medication/Blood: IRON SUCROSE 20MG/ML INJ Dosage/Units: 100.00 mg Route: IV PUSH Unused Amount: 0.00 IV Flush(mL): Admin Comments: [phone] Reason Not Given: === Events Log ===== Time Resolved Complication Comments Author Brigitte Spent Sanders Notified k'd Nurse === Postdialysis ==== Clotted: [ ] YES [x] NO Infiltrated: [ ] YES [x] NO Extra Treatment: [ ] YES [x] NO Procedure: Daily dialysis treatment Stop Date/Time: 09-Feb-2024 Dialysis Time(hrs): 3:59 Staff Off: Effective Time(hrs): Resp Caregiver: Departure Time: 1717 By/With: unaccompanied Mode: walking Visit Disposition: Discharged Home (private dwelling, not an institution, no support services) Patient Sent To: Pain Acuity: 0 Type: Location Measures Measures Measures Weights Measured Wt.(kg): 102.10 Prosthesis Wt.(kg): 0.90 Wheelchair Wt(kg): Post Dialysis Wt(kg): 101.20 Target Weight(kg): 0.00 Target UF(kg): 0.50 Removed Wt(kg): 0.50 Fluid Removed(kg): 1.21 Effective UFR (kg/hr:ml/kg/hr): 0.13 : 1.2 Dialysate Used(L): 143.40 Patient Status Temp(C): 98.10 Resp: Sitting BP: 128/60 Sitting Pulse: 57 Standing BP: 116/68 Standing Pulse: 62 Lowest BP: 117/58 BV Processed: Heparin Total Ordered: 0.00 Total Infused: Left in Syringe: Verified At: By: 2nd parts expediter: By: Fluid Intake Total Ingested(kg): Total HDF Administered(kg): Avg HDF(kg/hr): Hematocrit(%): Hemoglobin(mg/dL): KT/V: Relative Blood Volume(%): Final Effective Ionic Dialysance: Dialyzer Post Dial Rating: Clear Acid Disinfect: Chemical Cycle Start At: Heat Cycle Start At: Patient Condition: Nursing Assessment: 09-Feb-2024 GEORGINA ACUNA MONTESSORI PARAPROFESSIONAL POST-ASSESSMENT MENTAL STATUS: [xxxxx ]Alert & Oriented x 3 Comment: [ ]Alert & Oriented x 2 [ ]Person [ ]Place [ ]Time/Date [ ]Situation Comment: [ ]Alert & Oriented x 1 [ ]Person [ ]Place [ ]Time/Date [ ]Situation Comment:[ [ ]Confused Comment:[ [ ]Other Comment:[ RESPIRATORY STATUS: [ xxxxx]Clear bilaterally [ ]Clear right [ ]Clear left [...] lower lobe [ ]Bilateral Comment:[ EDEMA: [ xxxx]No edema noted [ ]Face [ ]Abdomen [ ]Bilateral UE [ ]Left UE [ ]Right UE [ ] Bilateral LE [ ]Left LE [ ]Right LE Comment:[ Comments: left clinic in no distress. had juice and ice uring treatment Acknowledged On: Acknowledged By: === Preparation ===== Station: Chair 10 Machine #: C - 19 MACHINE DISINFECTION Acid Cycle: 08-Feb-2024 Heat Cycle: 03-Feb-2024 Chemical Cycle: 08-Feb-2024 Disinfect Clear Status: MACHINE CHECKS Original All Steps Completed: [x] YES [ ] NO Alarm Test Complete: 09-Feb-2024 Alarms Audible: 09-Feb-2024 Checked prescription: 09-Feb-2024 111 Checked conductivity: 09-Feb-2024 1142 Double checked 09-Feb-2024 1200 Patient identified: 09-Feb-2024 1230 prescription: Time Out: 09-Feb-2024 Conductivity: 13.90 Calcium: 3 Dialysate Temperature: 36.60 Potassium: 2 Bicarb: 40 Reading confirmation: 09-Feb-2024 Conductivity: 13.90 pH: 7.00 Replacement All Steps Completed: [x] YES [ ] NO Alarm Test Complete: 09-Feb-2024 Alarms Audible: 09-Feb-2024 Checked prescription: 09-Feb-2024 Checked conductivity: 09-Feb-2024 1142 Double checked 09-Feb-2024 1200 Patient identified: 09-Feb-2024 1230 prescription: Time Out: 09-Feb-2024 Conductivity: 13.90 K+: 2 pH: 7.00 Ca+: 3 Dialysate Temp (C): 36.60 === Material ======== MATERIAL / DIALYZER REUSE Start Machine (#): C - 19 Time Failed: Replacement Machine: Replaced time: Reason: Dialyzer Label: Mckaylaro Aimeeio - 25H Reprocessed #: Dialyzer Lot: Pre-dialysis Dialyzer Rating: Check 1: 09-Feb-2024 114 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 Check 2: 09-Feb-2024 1200 [place] Location: [address] [place] [address]/ 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 REGISTERED NURSE Signed: 02/09/2024 17:29 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 [facility]AN [place] [facility]
--- OUTSIDE RECORDS SUMMARY | 2024-12-05 00:24 | XMS_ITS | Encounter Summary ---
Author Organization [facility] Address [address] [place] [address] Care Team Providers Care Ibm Mainframe Developer Name Role Phone Thao Mcqueen Primary Care Provider Unavailab le Encounter Details Date Type Department Care Team (Late st Contact Info) Description 08/26/2024 Telephone [facility] - Centralized Scheduling [address] [place] [phone] Radha Roper MD [address] [address] Social History Tobacco Use Types Packs/Day Years Used Date Smoking Tobacco: Former Cigarettes 1 03 11 975 - 1997 Smokeless Tobacco: Never Alcohol [...] Visit [facility] - GI [address] [facility], [place] [phone] Ravi Evans III, MD [address] [facility] [address] [place] [address] 10/16/2025 10:20 AM HISTORIAN RESEARCH ASSISTANT Office Visit [facility] - Cardiology [address] [facility] [place] [address] [place] [phone] Radha Roper MD [address] [facility] DIV OF CARDIOLOGY [address]L [place] [address] documented as of this encounter Goals Goal Patient Goal Type Associated Problems Recent Progress Patient-Stated? Author Blood Pressure < 140/90 Blood Pressure 127/55(2024 10:39 AM HISTORIAN RESEARCH ASSISTANT) Antonette Zheng RN documented as of this encounter Visit Diagnoses Not on filedocumented in this encounter Care Teams Ibm Mainframe Developer Relationship Specialty Start Date End Date Thao Mcqueen Update Information PCP - General 08/22/24 documented as of this encounter
--- OUTSIDE RECORDS SUMMARY | 2024-12-05 00:25 | XMS_ITS | Encounter Summary ---
Author Name [facility] Organization [facility] Address [address] [place] [address] Care Team Providers Care Casing Crew Pusher Name Role Phone ERIKA DEE Primary Care [...] PART A Jul 12, 2019 PART A [id number] PRASANNA KATZ PATIENT MEDICARE (WNR) MEDICARE (M) PART A Jul 12, 2019 PART A [id number] [phone] PRASANNA KATZ PATIENT Selected Encounter This section includes the information on record at [place] for the Encounter. Date/Time Encounter Type Encounter Description Reason Provider Source Dec 02, 2024 10:15 AM Outpatient Encounter EMERGENCY DEPT ASH GUAMAN Encounter Template Text not used by VA [...] 20 appointments. The data comes from all [facility]. Appointment Date/Time Appointment Type Appointme nt Facility Name Dec 12, 2024 12:45 PM AMBULATORY - MEDICINE [facility] Dec 12, 2024 03:00 PM AM[facility]ORY - SUR[facility] Mar 20, 2025 10:30 AM [...] of theEncounter. The data comes from all [facility]. Test Date/Time Test Type Test Details Facility Name Nov 16, 2024 12:16 PM Consult Order RENAL DUMAS SPLANT EVAL OUTPATIENT [facility] Cons Lead Sustainability Specialist's Choice [facility] Lab Results: +/- 30 days of the encounter This section includes the Chemistry and Hematology Lab Results on record with [place] for the patient. Radiology Reports and Pathology [...] Type: URINE No comment entered. Ordering Provider: YOGESH MUHAMMAD MD Report Released Date/Time: Dec 02, 2024 10:33 AM Reporting Lab: [facility] [address] [facility] [address] Performing Lab: [place] [id number] [facility] [address] URINE COLOR Colorless Yellow U.BILIRUBIN Negative mg/dL [...] PLASMA Comment: No hemolysis noted. Ordering Provider: OYGESH MUHAMMAD MD Report Released Date/Time: Dec 02, 2024 10:33 AM Reporting Lab: [address] [address] Performing Lab: [address] [address] LIPASE 198 U/L H 8-78 Dec 02, 2024 10:30 AM [facility] APTT Specimen Type: PLASMA No comment entered. Ordering Provider: YOGESH MUHAMMAD MD Report Released Date/Time: Dec 02, 2024 10:33 AM Reporting Lab: [address] [address] Performing Lab: [address] [address] APTT 37.8 s 26.7-39.9 Dec 02, 2024 10:30 AM [facility] PT/INR NEW ([facility]) Specimen Type: PLASMA No comment entered. Ordering Provider: YOGESH MUHAMMAD MD Report Released Date/Time: Dec 02, 2024 10:33 AM Reporting Lab: [address] [address] Performing Lab: [address] [address] PROTIME 14.4 s H 9.4-12.5 INR VALUE 1.3 {INR} Dec 02, 2024 10:30 AM [facility] COVID-19 DIAGNOSTIC (FLU/RSV)(STL) Specimen Type: NASOPHARYNX Comment: INFLUENZA A CALLED TO JORGE HANKINS RN [phone] Ordering Provider: YOGESH MUHAMMAD MD Report Released Date/Time: Dec 02, 2024 10:33 AM Reporting Lab: [facility] [address] [facility] [address] Performing Lab: [facility] [address] [place] [phone] INFLUENZA A POSITIVE INFLUENZA B NEGATIVE COVID-19 (Cepheid) NEGATIVE Negative COVID-19 (STL-PB) Not Detected Not Detected RSV (Cepheid) NEGATIVE Negative Dec 02, 2024 10:30 AM [facility] TROPONIN I Specimen Type: PLASMA No comment entered. Ordering Provider: YOGESH MUHAMMAD MD Report Released Date/Time: Dec 02, 2024 10:54 AM Reporting Lab: [facility] [address] [facility] [address] Performing Lab: [facility] [address] [facility] [address] TROPONIN I 0.058 ng/mL H 0-0.033 Dec 02, 2024 10:30 AM [facility] LIPASE Specimen Type: PLASMA No comment entered. Ordering Provider: YOGESH MUHAMMAD MD Report Released Date/Time: Dec 02, 2024 10:59 AM Reporting Lab: [facility] [address] [place] [phone] Performing Lab: [facility] [address] [place] [phone] LIPASE 201 U/L H 8-78 Dec 02, 2024 10:30 AM [facility] COMPREHENSIVE METABOLIC PANEL Specimen Type: PLASMA Comment: No hemolysis noted. Ordering Provider: YOGESH MUHAMMAD MD Report Released Date/Time: Dec 02, 2024 10:33 AM Reporting Lab: [facility] [address] [facility] [address] Performing Lab: [facility] [address] [address] CREATININE 9.62 mg/dL H 0.7-1.3 UREA NITROGEN [...] Type: BLOOD No comment entered. Ordering Provider: YOGESH MUHAMMAD MD Report Released Date/Time: Dec 02, 2024 10:33 AM Reporting Lab: [address] [address] Performing Lab: [address] [address] WBC 4.6 10*3/uL 3.6-11.2 RBC 3.71 10*6/uL [...] 10*3/uL 0.00-0.20 Dec 02, 2024 10:30 AM [facility] RESPIRATORY PCR PANEL Specimen Type: NASOPHARYNX Comment: [id number] Alert sent : Flu A typing only. The Ecochlor RP Panel combines nested multiplex PCR and [...] the clinician evaluating the patient. Rylan KOEHLER, (508) Ordering Provider: DEISY PURCELL Report Released Date/Time: Dec 02, 2024 11:50 AM Reporting Lab: [address] [address] Performing Lab: [address] [address] *Adenovirus (BF) Not Detected Not Detected *Coronavirus [...] 2024 12:00 PM 68 158/75 12 99 [facility] Dec 02, 2024 11:00 AM 65 156/78 16 99 [facility] Dec 02, 2024 10:30 AM 98.1 63 157/78 18 8 [facility] Social History: Smoking Status (Most current) and Tobacco Use (All prior to encounter date) This section includes the most current, and the historical, smoking and tobacco- related health factors from the [place] facility where the Encounter took place. Current Smoking Status This section includes the most current smoking, or tobacco-related health factor, from the [place] facility where the Encounter took place. Date/Time Current Smoking Status Comment Ester ity Nov 24, 2024 10:31 AM VA-TOBACCO USE FOR ADELA CIGARETTES [facility] Tobacco Use History This section includes a history of the smoking, or tobacco-related health factors, that were collected on or before the date of the Encounter. The data comes from the [place] facility where the Encounter took place. Date/Time Smoking Status/Tobacco Use Comment F acility Nov 24, 2024 10:31 AM VA-TOBACCO USE FOR ADELA CIGARETTES [facility] Jun 21, 2023 01:14 PM ORYX ADMIT TOBACCO SCREEN NO [facility] Dec 12, 2022 04:00 PM ORYX ADMIT TOBACCO SCREEN NO [facility] Jun 25, 2022 [...] ALL of a patient's completed or amended [place] Advance and Rescinded Directives. The entries below indicate that a directive exists for the patient, but an actual copy is not included with this document. The data comes from all [place] facilities. Date Advance Directives Provider Source Dec 17, 2022 ADVANCE DIRECTIVE BIJAN MERRITT [facility] Feb 09, 2020 ADVANCE DIRECTIVE DISCUSSION MELY LUCIANO [facility] Feb 02, 2018 ADVANCE DIRECTIVE BEAU ALTAMIRANO [facility] Nov 29, 2006 ADVANCE DIRECTIVE MARELY CHACON [facility] Radiology Reports: +/- 30 days of [...] the Encounter. The data comes from all [place] treatment facilities. Date/Time Radiology Report Provider Source Dec 02, 2024 12:00 PM CHEST PORTABLE: NAGI KATZ [id number] -1955 M Exm Date: DEC 02, 2024@12:00 Req Phys: YOGESH MUHAMMAD MD Pat Loc: [facility]-EMERGENCY DEPT 2ND SHIFT (R Img Loc: [facility]MAIN RADIOLOGY SUITE Service: Unknown [address] [address] (Case [id number] COMPLETE) CHEST PORTABLE (RAD Detailed) CPT:94167 Proc Modifiers : Portable Reason for Study: cough Clinical History: Report Status: Verified Date Reported: DEC 02, 2024 Date Verified: DEC 02, 2024 Funds Transfer Clerk E-Sig:/ES/ED ORDONEZ Report: EXAM: CHEST PORTABLE COMPARISON: 01/07/2024. HISTORY: cough FINDINGS: The heart size and pulmonary vasculature are normal. There is no consolidating infiltrate, effusion or pneumothorax. Impression: No active lung disease. RR Primary Interpreting Staff: DE ORDONEZ, Staff Physician (Funds Transfer Clerk) /ED [facility] Nov 15, 2024 07:[address] ABD PEL W/O CON T & 3D: NAGI KATZ [id number] -1955 M Exm Date: NOV 15, 2024@07:20 Req Phys: KIMBERLY PURCELL Loc: [facility]RENAL NP2 (Req'g Loc) Img Loc: -CT IMAGING [facility] Service: Unknown [address] [address] (Case [id number] COMPLETE) CT ABDOMEN AND PELVIS W/O CONTRAS(CT Detailed) CPT:28502 Reason for Study: to r/o abdominal wall hernia Clinical History: Responsible Attending: Dr. Ye Attending Contact Number: [phone] Resident Contact Number: To rule out abdominal wall hernia Allergies listed in CPRS chart: MORPHINE Creatinine:CREATININE 7.69 H mg/dL 02/09/2024 12:40 /eGFR: STL EGFR (within one year). CREATININE 7.69 mg/dL H (02/09/24 12:40) Wt: 226.8 lb [102.87 kg] (05/16/2024 14:10) History of: Renal failure, chronic or acute renal disease: YES Report Status: Verified Date Reported: NOV 15, 2024 Date Verified: NOV 15, 2024 Funds Transfer Clerk E-Sig:/ES/JOSE BARRERA MD Report: Spiral axial imaging [...] Primary Interpreting Staff: JOSE BARRERA MD, Radiologist (Funds Transfer Clerk) /JOSE YANG [facility] Encounter Notes: All associated encounter notes This section contains the clinical notes associated to the Encounter. Date/Time Encounter Note(s) Provider Source Dec 02, 2024 02:48 PM CLINICAL WARNING: LOCAL TITLE: INFECTION CONTROL ALERT STANDARD TITLE: CLINICAL WARNING DATE OF NOTE: DEC 02, 2024@14:48 ENTRY DATE: DEC 02, 2024@14:48:26 AUTHOR: JUD MENDEZIGNER: URGENCY: STATUS: COMPLETED INFLUENZA Patient positive for influenza/ flu from testing performed at facility. Please place patient on droplet precautions in private room. If patient leaves room, please instruct/assist patient to wear surgical/droplet mask, have patient perform hand hygiene, and to use good respiratory/cough etiquette. Criteria for discontinuation of precautions require at least 7 days after illness onset or until 24 hours after the resolution of fever and respiratory symptoms, whichever is longer. Consult Infection Prevention for ImmunocompromisedCOVID-19 DIAGNOSTIC (FLU/RSV) (STL) NASOPHARYNGEAL SWAB NASOPHARYNX [facility] #[id number] Collection time: Dec 02, 2024@10:30 Test Name Result Units Range --------- ------ ----- ----- COVID-19 (Cepheid) Negative Ref: Negative INFLUENZA A POSITIVE INFLUENZA B NEGATIVE COVID-19 (STL-PB) Not Detected Ref: Not Detected RSV (Cepheid) NEGATIVE Ref: Negative Comments: INFLUENZA A CALLED TO JORGE HANKINS RN [phone] Ordering Provider: Yogesh Muhammad MD, MD Report Released Date/Time: Dec 02, 2024@11:48 /edwar/ JUD MENDEZ RN REGISTERED NURSE Signed: 12/02/2024 14:48 JUD MENDEZ [facility] Dec 02, 2024 10:28 AM EMERGENCY DEPT TRIAGE NOTE: LOCAL TITLE: EMERGENCY DEPARTMENT TRIAGE NOTE STANDARD TITLE: EMERGENCY DEPT TRIAGE NOTE DATE OF NOTE: DEC 02, 2024@10:28 ENTRY DATE: DEC 02, 2024@10:28:10 AUTHOR: ASH GUAMAN COSIGNER: URGENCY: STATUS: COMPLETED EMERGENCY DEPARTMENT TRIAGE NOTE Has ADDENDA Emergency Department/Urgent Care Center Triage Patient age:69 Sex in chart: MALE Mode of Arrival: Private vehicle Mode of Mobility: * Walk 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 pt reports fatigue, decreased appetite, and weakness. pt reports decreased urination with dysuria. pt states his bladder feels full. pt is currently on dialysis. last treatment was yesterday per patient. Level of Consciousness (AVPU): Alert = Appears aware of and responsive to the environment on their own. Follows commands, opens eyes spontaneously, and tracks objects. Vital Signs: Temperature 98.1 F (36.7 C) Pulse 63 Respirations 18 Blood Pressure 157/78 Pulse Oximetry 99 Room Air Pain: No pain Pain Score: 8 Suicide Screen: [place] Suicide Severity Rating Scale (C-SSRS) screener 1. [...] required due to responses to other questions. Emergency Severity Index (VEDA) level: Level 3 Previously documented allergies: MORPHINE Current Problems: 1) Type II diabetes mellitus [...] disease 20) Superficial incisional surgical site infection /es/ ASH BAER RN REGISTERED NURSE Signed: 12/02/2024 10:30 12/02/2024 ADDENDUM STATUS: COMPLETED 1050: Pt placed in ED room 104-1 at this time. Pt is ambulatory to assigned ED room. Pt currently resting in ED stretcher. Monitoring equipment attached to pt. Blood work completed prior to ED room placement. COVID/FLU/RSV swab completed prior to ED room placement. Family member at bedside. Warm blankets applied. Pt ED side rails up x 2. Call light is within reach. Bed locked in lowest position. Pt A&Ox4 at this time. Pt in NAD at this time. Respirations even & unlabored. Assessment unchanged from triage. 1055: Dr. Muhammad at pt bedside for evaluation. 1100: Assessment unchanged from previous rounding. EKG completed at this time. EKG intrepreted by Dr. Muhammad. 1109: Lab reports they will add on the following: ---Lipase. ---Troponin. 1145: Bladder scan performed by this RN. Bladder scan revealed: [address] Muhammad notified. 1150: Urine specimen collected & sent to lab. All urine tubes labeled with designated pt labels. Urine marble tube, urine plain tube, & urine giles tube sent to lab. 1152: Post-void bladder scan performed by this RN. Post-void bladder scan revealed: ~[address] Muhammad notified. 1155: Dr. Muhammad reports pt is INFLUENZA-A POSITIVE. Pt provided with surgical mask. 1156: Dr. Muhammad at pt bedside to re-evaluate pt. Dr. Muhammad updated pt on plan of care. Dr. Muhammad provided education to pt. Pt to be discharged after portable x-ray review. 1200: Assessment unchanged from previous rounding. 1201: IV removed at this time. Catheter tip intact upon removal. Manual pressure applied over clean gauze to IV site. Tape applied over clean gauze to IV site. Bleeding controlled at this time. 1208: Portable x-ray at pt bedside at this time. Dr. Muhammad at bedside for portable x-ray review. Dr. Muhammad reports pt can be discharged at this time. 1228: Pt is A&Ox4. Skin warm and dry. Pt placed in ED wheelchair at this time. No acute distress noted at this time. Respirations even and unlabored. Pt provided with discharge paperwork. This RN reviewed discharge paperwork with pt. 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 Pt does not have additional comments or questions. Family member at bedside. Pt is ready to be discharged. /edwar/ LUZ ELENA METZ RN REGISTERED NURSE Signed: 12/02/2024 12:29 12/02/2024 ADDENDUM STATUS: COMPLETED 1100-EKG obtained at bedside and given to Dr. Muhammad for review /edwar/ Ant Lyons [facility] HOG ROOM SUPERVISOR Signed: 12/02/2024 11:03 ASH GUAMAN [facility]
--- OUTSIDE RECORDS SUMMARY | 2024-12-05 00:25 | XMS_ITS ---
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 Date/Time Encounter Type Encounter Description Reason Provider Source Jan 21, 2024 12:30 PM UNLISTED DIALYSIS PROCEDURE ASSISTED HEMODIALYSIS ICD-10-CM N18.6 End stage renal disease VIJAY BLAS Encounter Template Text not used by [facility] Assessments - Encounter Diagnoses This section includes the primary and secondary diagnoses documented for the Encounter. 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 This section includes future appointments and future orders which are active, pending or scheduled. Future Appointments This section includes appointments that were scheduled to occur 6 months from the date of the Encounter, up to a maximum of 20 appointments. The data comes from all [place] treatment facilities. Appointment Date/Time Appointment Type Appointme nt Facility Name Jan 23, 2024 12:30 PM AMBULATORY - MEDICINE [facility] Jan 25, 2024 02:30 PM AMBULATORY - MEDICINE [facility] Jan 26, 2024 12:30 PM AMBULATORY [...] 08:00 AM AMBULATORY - NONE [facility] February 15, 2024 08:30 AM AMBULATORY - MEDICINE [facility] Apr 05, 2024 09:30 AM AMBULATORY - MEDICINE [facility] Apr 27, 2024 07:30 AM AMBULATORY - SURGERY [facility] May 02, 2024 08:00 AM AMBULATORY - NONE [facility] May 02, 2024 08:30 AM AMBULATORY - MEDICINE [facility] May 16, 2024 02:00 PM AMBULATORY - MEDICINE [facility] Jul 12, 2024 08:00 AM AMBULATORY - NONE [facility] Jul 12, 2024 08:30 AM AMBULATORY - MEDICINE [facility] Lab Results: +/- 30 days of [...] Range Comment Feb 09, 2024 12:40 PM [facility] HEP B CORE AB TOTAL. (STL) Specimen Type: SERUM No comment entered. Ordering Provider: KYLER PURCELL Report Released Date/Time: Feb 09, 2024 10:43 AM Reporting Lab: [address] [address] Performing Lab: [address] [address] HEP B CORE AB TOTAL. (STL) Nonreactive Nonreactive Feb 09, 2024 12:40 PM [facility] HEP HB S Ag ([place]) (STL) Specimen Type: SERUM No comment entered. Ordering Provider: KYLER PURCELL Report Released Date/Time: Feb 09, 2024 10:43 AM Reporting Lab: [address] [address] Performing Lab: [address] [address] HEP HB S Ag ([place]) (STL) Nonreactive Nonreactive Feb 09, 2024 12:40 PM [facility] HEPATITIS B SURFACE AB PNL Specimen Type: SERUM No comment entered. Ordering Provider: KYLER PURCELL Report Released Date/Time: Feb 09, 2024 10:43 AM Reporting Lab: [address] [address] Performing Lab: [address] [address] HEP B Surface Ab-HBsAB (L) REACTIVE m[IU]/mL Nonreactive HEP Bs AB-QUANT (L) 79.36 m[IU]/mL Feb 09, 2024 12:40 PM [facility] CBC Specimen Type: BLOOD No comment entered. Ordering Provider: KYLER PURCELL Report Released Date/Time: Feb 04, 2024 03:20 PM Reporting Lab: [address] [address] Performing Lab: [place] [id number] WBC 9.7 10*3/uL 3.6-11.2 RBC 3.09 10*6/uL [...] 10*3/uL 0.00-0.20 Feb 09, 2024 12:40 PM [facility] RENAL PANEL Specimen Type: PLASMA Comment: No hemolysis noted. Ordering Provider: KYLER PURCELL Report Released Date/Time: Feb 04, 2024 03:20 PM Reporting Lab: [address] [address] Performing Lab: [place] [address] [facility] [address] CREATININE 7.69 mg/dL H 0.7-1.3 UREA NITROGEN 52.2 mg/dL H 9.0-25.0 GLUCOSE 147 mg/dL H 72-99 SODIUM 142 meq/L 136-145 POTASSIUM 4.1 meq/L 3.5-5 CHLORIDE 107 meq/L 98-107 CARBON DIOXIDE 22 meq/L 22-31 CALCIUM 10.2 mg/dL 8.4-10.4 PHOSPHOROUS 3.7 mg/dL 2.3-4.7 ALBUMIN 3.7 g/dL 3.4-5 EGFR (CKD-EPI 2020) 7.1 LL >60 Feb 04, 2024 05:00 PM [facility] URR-POST PANEL (STL) Specimen Type: PLASMA No comment entered. Ordering Provider: KYLER PURCELL Report Released Date/Time: Feb 04, 2024 01:42 PM Reporting Lab: [address] [address] Performing Lab: [address] [address] BUN-POST DIALYSIS 16.2 mg/dL 9.0-25.0 URR (STL) 70.4 67.0-100.0 Feb 04, 2024 12:45 PM [facility] RENAL PANEL Specimen Type: PLASMA Comment: No hemolysis noted. Ordering Provider: KYLER PURCELL Report Released Date/Time: Feb 04, 2024 01:42 PM Reporting Lab: [address] [address] Performing Lab: [address] [address] CREATININE 6.97 mg/dL H 0.7-1.3 UREA NITROGEN 54.7 mg/dL H 9.0-25.0 GLUCOSE 134 mg/dL H 72-99 SODIUM 142 meq/L 136-145 POTASSIUM 4.0 meq/L 3.5-5 CHLORIDE 105 meq/L 98-107 CARBON DIOXIDE 24 meq/L 22-31 CALCIUM 9.7 mg/dL 8.4-10.4 PHOSPHOROUS 4.8 mg/dL H 2.3-4.7 ALBUMIN 3.9 g/dL 3.4-5 EGFR (CKD-EPI 2020) 7.9 LL >60 Feb 02, 2024 04:30 PM [facility] URR-POST PANEL (STL) Specimen Type: PLASMA No comment entered. Ordering Provider: KYLER PURCELL Report Released Date/Time: Feb 02, 2024 03:39 PM Reporting Lab: [address] [address] Performing Lab: [address] [address] BUN-POST DIALYSIS 22.9 mg/dL 9.0-25.0 URR (STL) 60.9 L 67.0-100.0 Feb 02, 2024 11:50 AM [facility] RENAL PANEL Specimen Type: PLASMA Comment: No hemolysis noted. Ordering Provider: KYLER PURCELL Report Released Date/Time: Feb 02, 2024 07:35 AM Reporting Lab: [address] [address] Performing Lab: [address] [address] CREATININE 8.34 mg/dL H 0.7-1.3 UREA NITROGEN 58.6 mg/dL H 9.0-25.0 GLUCOSE 169 mg/dL H 72-99 SODIUM 142 meq/L 136-145 POTASSIUM 4.6 meq/L 3.5-5 CHLORIDE 111 meq/L H 98-107 CARBON DIOXIDE 20 meq/L L 22-31 CALCIUM 9.2 mg/dL 8.4-10.4 PHOSPHOROUS 3.6 mg/dL 2.3-4.7 ALBUMIN 3.7 g/dL 3.4-5 EGFR (CKD-EPI 2020) 6.4 LL >60 Feb 01, 2024 11:00 PM [facility] 24H UR CHEM PANEL (STL) Specimen Type: 24-HOUR URINE No comment entered. Ordering Provider: KYLER PURCELL Report Released Date/Time: Jan 28, 2024 04:55 PM Reporting Lab: [address] [address] Performing Lab: [address] [address] VOLUME 3289 mL SODIUM 24-HOUR URINE 226.941 H 40-220 POTASSIUM 24-HOUR URINE 35.8501 25-125 CHLORIDE 24-HOUR URINE 171.028 110-250 PROTEIN 24-HOUR URINE 1986.556 H 0-299.9 CREATININE 24-HOUR URINE 2078.302 813-2051 Jan 28, 2024 05:29 PM [facility] CBC Specimen Type: BLOOD No comment entered. Ordering Provider: KYLER PURCELL Report Released Date/Time: Jan 28, 2024 05:07 PM Reporting Lab: [address] [address] Performing Lab: [address] [address] WBC 8.9 10*3/uL 3.6-11.2 RBC 2.96 10*6/uL [...] 10*3/uL 0.00-0.20 Jan 26, 2024 01:00 PM [facility] FERRITIN Specimen Type: SERUM No comment entered. Ordering Provider: KYLER PURCELL Report Released Date/Time: Jan 21, 2024 03:14 PM Reporting Lab: [address] [address] Performing Lab: [address] [address] FERRITIN 118.78 ng/mL 22-275 Jan 26, 2024 01:00 PM [facility] PTH, INTACT (STL) Specimen Type: SERUM No comment entered. Ordering Provider: KYLER PURCELL Report Released Date/Time: Jan 21, 2024 03:14 PM Reporting Lab: [address] [address] Performing Lab: [address] [address] PTH, INTACT (STL) 141.40 pg/mL H 8.7-77.7 Jan 26, 2024 01:00 PM [facility] RENAL PANEL Specimen Type: PLASMA Comment: No hemolysis noted. Ordering Provider: KYLER PURCELL Report Released Date/Time: Jan 21, 2024 03:14 PM Reporting Lab: [address] [address] Performing Lab: [address] [address] CREATININE 8.25 mg/dL H 0.7-1.3 UREA NITROGEN 63.1 mg/dL H 9.0-25.0 GLUCOSE 157 mg/dL H 72-99 SODIUM 137 meq/L 136-145 POTASSIUM 4.2 meq/L 3.5-5 CHLORIDE 100 meq/L 98-107 CARBON DIOXIDE 26 meq/L 22-31 CALCIUM 9.6 mg/dL 8.4-10.4 PHOSPHOROUS 4.9 mg/dL H 2.3-4.7 ALBUMIN 3.7 g/dL 3.4-5 EGFR (CKD-EPI 2020) 6.5 LL >60 Jan 26, 2024 01:00 PM [facility] IRON/TIBC PROFILE Specimen Type: SERUM No comment entered. Ordering Provider: KYLER PURCELL Report Released Date/Time: Jan 21, 2024 03:14 PM Reporting Lab: [address] [address] Performing Lab: [address] [address] TIBC 225 ug/dL L 250-450 TRANSFERRIN 180 mg/dL 163-344 IRON SATURATION 23 20-50 IRON 52 ug/dL L 65-175 Jan 26, 2024 01:00 PM [facility] CBC Specimen Type: BLOOD No comment entered. Ordering Provider: KYLER PURCELL Report Released Date/Time: Jan 21, 2024 03:14 PM Reporting Lab: [address] [address] Performing Lab: [address] [address] WBC 7.8 10*3/uL 3.6-11.2 RBC 2.95 10*6/uL [...] 10*3/uL 0.00-0.20 Jan 21, 2024 12:55 PM [facility] PT/INR NEW (ST-NM) Specimen Type: PLASMA No comment entered. Ordering Provider: KYLER PURCELL Report Released Date/Time: Jan 21, 2024 12:43 PM Reporting Lab: [address] [address] Performing Lab: [address] [address] PROTIME 15.9 s H 9.4-12.5 INR VALUE 1.4 {INR} Jan 21, 2024 12:55 PM [facility] RENAL PANEL Specimen Type: PLASMA Comment: No hemolysis noted. Ordering Provider: KYLER PRUCELL Report Released Date/Time: Jan 21, 2024 12:41 PM Reporting Lab: [address] [address] Performing Lab: [address] [address] CREATININE 8.11 mg/dL H 0.7-1.3 UREA NITROGEN 82.6 mg/dL H 9.0-25.0 GLUCOSE 114 mg/dL H 72-99 SODIUM 139 meq/L 136-145 POTASSIUM 5.1 meq/L H 3.5-5 CHLORIDE 109 meq/L H 98-107 CARBON DIOXIDE 19 meq/L L 22-31 CALCIUM 9.3 mg/dL 8.4-10.4 PHOSPHOROUS 4.1 mg/dL 2.3-4.7 ALBUMIN 3.8 g/dL 3.4-5 EGFR (CKD-EPI 2020) 6.6 LL >60 Jan 14, 2024 11:55 AM [facility] RENAL PANEL Specimen Type: PLASMA Comment: No hemolysis noted. Ordering Provider: KYLER PURCELL Report Released Date/Time: Jan 13, 2024 07:58 AM Reporting Lab: [address] [address] Performing Lab: [address] [address] CREATININE 8.05 mg/dL H 0.7-1.3 UREA NITROGEN 70.7 mg/dL H 9.0-25.0 GLUCOSE 155 mg/dL H 72-99 SODIUM 140 meq/L 136-145 POTASSIUM 5.1 meq/L H 3.5-5 CHLORIDE 107 meq/L 98-107 CARBON DIOXIDE 21 meq/L L 22-31 CALCIUM 9.6 mg/dL 8.4-10.4 PHOSPHOROUS 4.8 mg/dL H 2.3-4.7 ALBUMIN 4.1 g/dL 3.4-5 EGFR (CKD-EPI 2020) 6.7 LL >60 Jan 11, 2024 11:36 AM [facility] GLUCOSE,BLOOD-poct (STL) Specimen Type: BLOOD Comment: Test Performed by: [id number] Meter #: [id number] Ordering Provider: LIDIA HUYNH Report Released Date/Time: Jan 11, 2024 11:50 AM Reporting Lab: [address] [address] Performing Lab: [address] [address] GLUCOSE,BLOOD- poct (STL) 106 mg/dL H -Jan 11, 2024 11:07 AM [facility] GLUCOSE,BLOOD-poct (STL) Specimen Type: BLOOD Comment: Test Performed by: [id number] Meter #: [id number] Ordering Provider: LIDIA HUYNH Report Released Date/Time: Jan 11, 2024 11:18 AM Reporting Lab: [address] [address] Performing Lab: [address] [address] GLUCOSE,BLOOD- poct (STL) 109 mg/dL H 72-Jan 11, 2024 05:12 AM [facility] GLUCOSE,BLOOD-poct (STL) Specimen Type: BLOOD Comment: Test Performed by: [id number] Meter #: [id number] Ordering Provider: LINOMED Report Released Date/Time: Jan 11, 2024 05:25 AM Reporting Lab: [place] [address] [facility] [address] Performing Lab: [place] [address] [facility] [address] GLUCOSE,BLOOD- poct (STL) 88 mg/dL 72-99 Jan 10, 2024 08:19 PM [facility] GLUCOSE,BLOOD-poct (STL) Specimen Type: BLOOD Comment: Test Performed by: [id number] Meter #: [id number] Ordering Provider: LIDIA HUYNH Report Released Date/Time: Jan 10, 2024 08:31 PM Reporting Lab: [address] [address] Performing Lab: [address] [address] GLUCOSE,BLOOD- poct (STL) 153 mg/dL H 72-Jan 10, 2024 04:15 PM [facility] GLUCOSE,BLOOD-poct (STL) Specimen Type: BLOOD Comment: Test Performed by: [id number] Meter #: [id number] Ordering Provider: LIDIA HUYNH Report Released Date/Time: Jan 10, 2024 05:05 PM Reporting Lab: [address] [address] Performing Lab: [address] [address] GLUCOSE,BLOOD- poct (STL) 84 mg/dL 72-Jan 10, 2024 11:31 AM [facility] GLUCOSE,BLOOD-poct (STL) Specimen Type: BLOOD Comment: Test Performed by: [id number] Meter #: [id number] Ordering Provider: LIDIA HUYNH Report Released Date/Time: Jan 10, 2024 12:03 PM Reporting Lab: [address] [address] Performing Lab: [address] [address] GLUCOSE,BLOOD- poct (STL) 99 mg/dL 72-99 Jan 10, 2024 04:45 AM [facility] GLUCOSE,BLOOD-poct (STL) Specimen Type: BLOOD Comment: Test Performed by: [id number] Meter #: [id number] Ordering Provider: LIDIA HUYNH Report Released Date/Time: Jan 10, 2024 05:29 AM Reporting Lab: [place] [address] [facility] [address] Performing Lab: [place] [address] [facility] [address] GLUCOSE,BLOOD- poct (STL) 109 mg/dL H -Jan 09, 2024 08:08 PM [facility] GLUCOSE,BLOOD-poct (STL) Specimen Type: BLOOD Comment: Test Performed by: [id number] Meter #: [id number] Ordering Provider: LIDIA HUYNH Report Released Date/Time: Jan 09, 2024 08:28 PM Reporting Lab: [place] [address] [facility] [address] Performing Lab: [place] [address] [facility] [address] GLUCOSE,BLOOD- poct (STL) 110 mg/dL H -Jan 09, 2024 04:19 PM [facility] GLUCOSE,BLOOD-poct (STL) Specimen Type: BLOOD Comment: Test Performed by: [id number] Meter #: [id number] Ordering Provider: LIDIA HUYNH Report Released Date/Time: Jan 09, 2024 04:34 PM Reporting Lab: [place] [address] [facility] [address] Performing Lab: [place] [address] [facility] [address] GLUCOSE,BLOOD- poct (STL) 119 mg/dL H Jan 09, 2024 02:30 PM [facility] MAGNESIUM Specimen Type: PLASMA Comment: No hemolysis noted. Ordering Provider: TATI ZAVALA Report Released Date/Time: Jan 09, 2024 07:51 AM Reporting Lab: [place] [id number] [facility] [address] Performing Lab: [facility] [address] [facility] [address] MAGNESIUM 1.6 mg/dL 1.6-2.6 Jan 09, 2024 02:30 PM [facility] RENAL PANEL Specimen Type: PLASMA Comment: No hemolysis noted. Ordering Provider: TATI ZAVALA Report Released Date/Time: Jan 09, 2024 07:51 AM Reporting Lab: [place] [address] [facility] [address] Performing Lab: [address] [address] CREATININE 5.13 mg/dL H 0.7-1.3 UREA NITROGEN 46.2 mg/dL H 9.0-25.0 GLUCOSE 177 mg/dL H 72-99 SODIUM 136 meq/L 136-145 POTASSIUM 4.0 meq/L 3.5-5 CHLORIDE 101 meq/L 98-107 CARBON DIOXIDE 23 meq/L 22-31 CALCIUM 8.6 mg/dL 8.4-10.4 PHOSPHOROUS 2.7 mg/dL 2.3-4.7 ALBUMIN 3.6 g/dL 3.4-5 EGFR (CKD-EPI 2020) 11.5 LL >60 Jan 09, 2024 12:27 PM [facility] GLUCOSE,BLOOD-poct (STL) Specimen Type: BLOOD Comment: Test Performed by: [id number] Meter #: [id number] Ordering Provider: LIDIA HUYNH Report Released Date/Time: Jan 09, 2024 12:38 PM Reporting Lab: [place] [address] [facility] [address] Performing Lab: [address] [address] GLUCOSE,BLOOD- poct (STL) 98 mg/dL 72-99 Jan 09, 2024 07:15 AM [facility] GLUCOSE,BLOOD-poct (STL) Specimen Type: BLOOD Comment: Test Performed by: [id number] Meter #: [id number] Ordering Provider: LIDIA HUYNH Report Released Date/Time: Jan 09, 2024 07:58 AM Reporting Lab: [place] [address] [facility] [address] Performing Lab: [place] [address] [facility] [address] GLUCOSE,BLOOD- poct (STL) 86 mg/dL 72-99 Jan 08, 2024 09:04 PM [facility] GLUCOSE,BLOOD-poct (STL) Specimen Type: BLOOD Comment: Test Performed by: [id number] Meter #: [id number] Ordering Provider: LIDIA HUYNH Report Released Date/Time: Jan 08, 2024 09:47 PM Reporting Lab: [place] [address] [facility] [address] Performing Lab: [place] [address] [facility] [address] GLUCOSE,BLOOD- poct (STL) 90 mg/dL 72-99 Jan 08, 2024 09:01 PM [facility] HEP B CORE AB TOTAL. (STL) Specimen Type: SERUM No comment entered. Ordering Provider: EFREN TAYLOR Report Released Date/Time: Jan 08, 2024 02:35 PM Reporting Lab: [place] [address] [facility] [address] Performing Lab: [place] [address] [facility] [address] HEP B CORE AB TOTAL. (STL) Nonreactive Nonreactive Jan 08, 2024 09:01 PM [facility] HEPATITIS B SURFACE AB PNL Specimen Type: SERUM No comment entered. Ordering Provider: EFREN TAYLOR Report Released Date/Time: Jan 08, 2024 02:35 PM Reporting Lab: [place] [address] [facility] [address] Performing Lab: [place] [address] [facility] [address] HEP B Surface Ab-HBsAB (STL) REACTIVE m[IU]/mL Nonreactive HEP Bs AB-QUANT (STL) 63.22 m[IU]/mL Jan 08, 2024 09:01 PM [facility] HEP HB S Ag ([place]) (STL) Specimen Type: SERUM No comment entered. Ordering Provider: EFREN TAYLOR Report Released Date/Time: Jan 08, 2024 02:35 PM Reporting Lab: [place] [address] [facility] [address] Performing Lab: [place] [address] [facility] [address] HEP HB S Ag ([place]) (STL) Nonreactive Nonreactive Jan 08, 2024 04:47 PM [facility] GLUCOSE,BLOOD-poct (STL) Specimen Type: BLOOD Comment: Test Performed by: [id number] Meter #: [id number] Ordering Provider: LIDIA HUYNH Report Released Date/Time: Jan 08, 2024 05:09 PM Reporting Lab: [place] [address] [facility] [address] Performing Lab: [place] [address] [facility] [address] GLUCOSE,BLOOD- poct (STL) 95 mg/dL 72-99 Jan 08, 2024 11:26 AM [facility] GLUCOSE,BLOOD-poct (STL) Specimen Type: BLOOD Comment: Test Performed by: [id number] Meter #: [id number] Ordering Provider: LIDIA HUYNH Report Released Date/Time: Jan 08, 2024 11:37 AM Reporting Lab: [place] [address] [facility] [address] Performing Lab: [place] [address] [facility] [address] GLUCOSE,BLOOD- poct (STL) 105 mg/dL H 72-99 Jan 08, 2024 07:01 AM [facility] RENAL PANEL Specimen Type: PLASMA Comment: No hemolysis noted. Ordering Provider: LIZETTE GRIFFIN Report Released Date/Time: Jan 07, 2024 11:24 PM Reporting Lab: [place] [address] [facility] [address] Performing Lab: [address] [address] CREATININE 8.50 mg/dL H 0.7-1.3 UREA NITROGEN 88.2 mg/dL H 9.0-25.0 GLUCOSE 70 mg/dL L 72-99 SODIUM 139 meq/L 136-145 POTASSIUM 5.4 meq/L H 3.5-5 CHLORIDE 110 meq/L H 98-107 CARBON DIOXIDE 19 meq/L L 22-31 CALCIUM 9.4 mg/dL 8.4-10.4 PHOSPHOROUS 5.1 mg/dL H 2.3-4.7 ALBUMIN 3.8 g/dL 3.4-5 EGFR (CKD-EPI 2020) 6.3 LL >60 Jan 08, 2024 06:37 AM [facility] GLUCOSE,BLOOD-poct (STL) Specimen Type: BLOOD Comment: Test Performed by: [id number] Meter #: [id number] Ordering Provider: LIDIA HUYNH Report Released Date/Time: Jan 08, 2024 06:48 AM Reporting Lab: [address] [address] Performing Lab: [address] [address] GLUCOSE,BLOOD- poct (STL) 86 mg/dL 72-99 Jan 07, 2024 11:58 PM [facility] RENAL PANEL Specimen Type: PLASMA Comment: No hemolysis noted. Ordering Provider: LIZETTE GRIFFIN Report Released Date/Time: Jan 07, 2024 11:38 PM Reporting Lab: [address] [address] Performing Lab: [address] [address] CREATININE 8.68 mg/dL H 0.7-1.3 UREA NITROGEN 92.6 mg/dL H 9.0-25.0 GLUCOSE 143 mg/dL H 72-99 SODIUM 138 meq/L 136-145 POTASSIUM 5.0 meq/L 3.5-5 CHLORIDE 111 meq/L H 98-107 CARBON DIOXIDE 17 meq/L L 22-31 CALCIUM 8.8 mg/dL 8.4-10.4 PHOSPHOROUS 3.8 mg/dL 2.3-4.7 ALBUMIN 3.8 g/dL 3.4-5 EGFR (CKD-EPI 2020) 6.1 LL >60 Jan 07, 2024 11:36 PM [facility] GLUCOSE,BLOOD-poct (STL) Specimen Type: BLOOD Comment: Test Performed by: [id number] Meter #: [id number] Ordering Provider: LIDIA MOSCOSO Report Released Date/Time: Jan 07, 2024 11:47 PM Reporting Lab: [place] [id number] [facility] [address] Performing Lab: [address] [address] GLUCOSE,BLOOD- poct (STL) 157 mg/dL H 72-99 Jan 07, 2024 11:30 PM [facility] MRSA SURVL NARES DNA Specimen Type: [...] Jan 07, 2024 11:24 PM Reporting Lab: [facility] [address] [facility] [address] Performing Lab: [place] [address] [facility] [address] MRSA SURVL NARES DNA Negative Negative Jan 07, 2024 09:08 PM [facility] POTASSIUM Specimen Type: PLASMA Comment: No hemolysis noted. Ordering Provider: ANNA CALI Report Released Date/Time: Jan 07, 2024 08:38 PM Reporting Lab: [facility] [address] [facility] [address] Performing Lab: [facility] [address] [facility] [address] POTASSIUM 5.7 meq/L H 3.5-5 Jan 07, 2024 07:30 PM [facility] URINALYSIS (STL-PB) Specimen Type: URINE No comment entered. Ordering Provider: ANNA CALI Report Released Date/Time: Jan 07, 2024 05:18 PM Reporting Lab: [facility] [address] [facility] [address] Performing Lab: [place] [address] [address] [facility] [address] URINE COLOR Colorless Yellow U.BILIRUBIN Negative mg/dL [...] 1.015 1.005-1.029 Jan 07, 2024 05:30 PM [facility] BRAIN NATRIURETIC PEPTIDE Specimen Type: PLASMA No comment entered. Ordering Provider: GRACIELA MANN Report Released Date/Time: Jan 07, 2024 04:59 PM Reporting Lab: [facility] [address] [facility] [address] Performing Lab: [place] [address] [facility] [address] BRAIN NATRIURETIC PEPTIDE 59.0 pg/mL 0-100 Jan 07, 2024 05:30 PM [facility] COVID-19 DIAGNOSTIC (FLU/RSV)(STL) Specimen Type: NASOPHARYNX [...] Jan 07, 2024 04:59 PM Reporting Lab: [address] [address] Performing Lab: [address] [address] INFLUENZA A Negative Negative INFLUENZA B Negative Negative COVID-19 (STL-PB) Not Detected Not Detected RSV (Cepheid) NEGATIVE Negative Jan 07, 2024 05:30 PM [facility] COMPREHENSIVE METABOLIC PANEL Specimen Type: PLASMA Comment: Aspartate Transaminase result may show positive bias due to hemolysis. K result canceled due to hemolysis. Specimen moderately hemolyzed. K cancelled due to moderate hemolysis. Called to : Phillip Cee RN at: [id number] on: 01/07/2024 by: TENNILLE Ordering Provider: GRACIELA MANN Report Released Date/Time: Jan 07, 2024 04:59 PM Reporting Lab: [address] [address] Performing Lab: [address] [address] CREATININE 8.88 mg/dL H 0.7-1.3 UREA NITROGEN [...] LL >60 Jan 07, 2024 05:30 PM [facility] CBC Specimen Type: BLOOD No comment entered. Ordering Provider: GRACIELA MANN Report Released Date/Time: Jan 07, 2024 04:59 PM Reporting Lab: [facility] [address] [facility] [address] Performing Lab: [facility] [address] [facility] [address] WBC 9.2 10*3/uL 3.6-11.2 RBC 3.81 10*6/uL [...] 02:28 PM 97.5 57 136/75 226.64 34 [facility] N Social History: Smoking Status (Most current) and Tobacco Use (All prior to encounter date) This section includes the most current, and the historical, smoking and tobacco- related health factors from the [place] facility where the Encounter took place. Current Smoking Status This section includes the most current smoking, or tobacco-related health factor, from the [place] facility where the Encounter took place. Date/Time Current Smoking Status Comment Ester ity Jun 21, 2023 01:14 PM ORYX ADMIT TOBACCO SCREEN NO [facility] Tobacco Use History This section includes a history of the smoking, or tobacco-related health factors, that were collected on or before the date of the Encounter. The data comes from the [place] facility where the Encounter took place. Date/Time Smoking Status/Tobacco Use Comment F acility Dec 12, 2022 04:00 PM ORYX ADMIT TOBACCO SCREEN NO [facility] Jun 25, 2022 03:24 PM VA-TOBACCO FORMER USER [facility] Jun 25, 2022 03:24 PM VA-TOBACCO QUIT 15 YRS OR MORE [facility] Dec 23, 2021 04:59 PM ORYX ADMIT TOBACCO SCREEN REFUSED [facility] May 24, 2020 11:27 PM ORYX ADMIT TOBACCO SCREEN NO [facility] Dec 12, 2019 10:24 AM VA-TOBACCO FORMER USER [facility] Dec 12, 2019 10:24 AM VA-TOBACCO QUIT 15 YRS OR MORE [facility] Aug 03, 2019 02:11 AM ORYX ADMIT TOBACCO SCREEN REFUSED [facility] Oct 12, 2018 01:14 AM QUIT TOBACCO >7 YEARS AGO [facility] Oct 11, 2018 03:33 PM ORYX ADMIT TOBACCO SCREEN NO [facility] Sep 07, 2018 09:13 PM ORYX ADMIT TOBACCO SCREEN NO [facility] Sep 07, 2018 07:52 PM QUIT TOBACCO >7 YEARS AGO [facility] Advance Directives: All historical and current Section Date Range: From patient's date of to the date document was created. This section includes ALL of a patient's completed or amended [place] Advance and Rescinded Directives. The entries below indicate that a directive exists for the patient, but an actual copy is not included with this document. The data comes from all [place] facilities. Date Advance Directives Provider Source Dec 17, 2022 ADVANCE DIRECTIVE BIJAN MERRITT Brigitte CHISHOLM [facility] Feb 09, 2020 ADVANCE DIRECTIVE DISCUSSION MELY LUCIANO [facility] Feb 02, 2018 ADVANCE DIRECTIVE BEAU ALTAMIRANO [facility] Nov 29, 2006 ADVANCE DIRECTIVE CHACONMARELY [facility] Radiology Reports: +/- 30 days of [...] the Encounter. The data comes from all [place] treatment facilities. 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 images were received by the [place] National Teleradiology Program (NTP) for interpretation. FINDINGS: Bilateral peribronchial thickening. Patchy bilateral lower lobe lung opacities. Mildly tortuous aorta. No acute bony abnormalities. Impression: 1. Bilateral peribronchial thickening. 2. Patchy bilateral lung opacities likely represent atelectasis. 3. No pneumothorax. READING PHYSICIAN: Madhu Patton M.D. -[phone] 01/07/2024 19:10 PDT [facility] National Teleradiology Program [phone] (For Medical Practitioner Use Only) Attention Patients / Veterans: If you have questions or concerns about these test results, please contact your ordering provider or primary care team. Primary Interpreting Staff: RADIOLOGY,OUTSIDE SERVICE, Staff Physician / RADIOLOGY,OUTSIDE SERVICE [facility] Encounter Notes: All associated encounter notes This section contains the clinical notes associated to the Encounter. Date/Time Encounter Note(s) Provider Source Jan 21, 2024 06:18 PM DIALYSIS NOTE: LOCAL TITLE: HEMODIALYSIS RUNSHEET APPOINTMENT ST STANDARD TITLE: DIALYSIS NOTE DATE OF NOTE: JAN 21, 2024@18:18:52 ENTRY DATE: JAN 21, 2024@18:18:52 AUTHOR: VIJAY BLAS EXP COSIGNER: URGENCY: routine STATUS: COMPLETED Dialysis [place] Appointment on Jan 21, 2024@12:59 Patient: NAGI KATZ Treatment Date: 21-Jan-2024 1259 Status: Discharged Latest Lab Result: URR: (, ) Kt/V: (, ) HgB: (, ) HCT: (, ) Diagnosis: End stage renal disease Patient Type: Inpatient Allergies: MORPHINE Resuscitate: [x] YES [ ] NO HD Summary Tables TREATMENT SUMMARY Treatment Start Time 21-Jan-2024 1259 Treatment End Time 21-Jan-2024 1610 Duration(ordered): 3:00 Duration(manually adjusted): 3:10 Weights (Kg) and Fluid Removed (L): Date Pre Weight Target Weight Post Weight Excess Weight IDW Goal Weight Target UF Achieved UF Current 102.80 0.00 102.40 102.80 0.00 0.00 500.00 09-Jan-2024 96.90 103.00 96.90 -6.10 -6.30 103.00 0.00 0.39 08-Jan-2024 103.00 103.20 0.20 103.00 0.00 0.35 Blood Pressures (mmHg) & Fluid intake (mL) during treatment: Date Pre BP Post BP Lowest BP Highest BP IVF Given (mL) PO Fluid (mL) Current Sitting 126/69 Sitting 152/67 123/69 149/71 0.40 -- -- -- -- 09-Jan-2024 Sitting 153/75 Sitting 148/73 129/69 143/72 0.40 Sitting 154/75 -- -- -- -- 08-Jan-2024 Lying 139/79 Lying 126/69 129/74 139/73 -- -- -- -- Pulse and Temp: Date Pre Pulse Post Pulse Lowest Pulse Highest Pulse Pre Temp Post Temp Current Sitting 58 Sitting 60 57 61 97.7 97.8 -- -- -- -- 09-Jan-2024 Sitting 68 Sitting 63 62 84 98.0 98.2 Sitting 65 -- -- -- -- 08-Jan-2024 Lying 64 Lying 66 62 64 97.9 -- -- -- -- HD Times Date Prescribed Time Achieved Time Treatment Start Treatment End Current 3:00 3:10 1259 1610 09-Jan-2024 2:30 2:27 0853 1120 08-Jan-2024 2:00 1:46 1345 1532 Day's Order Related Problem: End stage renal disease Access Type: Fistula Access Site: VIGRIE Backup Access: Backup Access Site: Needle Gauge: Freezing: [ ] YES [x] NO Machine Type: Paramus Gambro Isolation: [ ] YES [x] NO Conventional HD Prosthesis(kg): Wheelchair(kg): Target Weight(kg): 0.00 Duration(h): 3:00 or Target UF(kg): 0.00 Frequency(x/wk): 3.00 Dialysate Temp(C): 37.00 Dialysis Type: [ ] daytime [ ] nocturnal Prescribed BVP(L): Dialysate Type: Saline Inf. (mL): FISHER DIVING Blood Flow(ml/min): Hemodiafiltr. Volume(l): Hemodiafiltr. Fluid Type: Fractional Urea Distribution Space: Prescribed KT/V: Process: Hemodialysis Procedure: Daily dialysis treatment Dialyzer: Nipro Elisio - 19H Max. reuses: Dialyzer 2: Tubing: K+(mmol/L): 2 Ca+(mmol/L): 3 Glucose(mmol/L): Mg+(mmol/L): Profiles: Initial values: Ramping: Dialysate Flow(ml/min): 500.00 Blood Flow(ml/min): 200 Bicarb(mmol/L): 35 Na+(mmol/L): 138 [...] Value Comments Verified Verified Time Verified By Access ====== Access Type: Fistula only PRE POST Bruit Present: [x] YES [ ] NO Bruit Present: [x] YES [ ] NO Thrill Present: [x] YES [ ] NO Thrill Present: [x] YES [ ] NO Condition Arterial: unsatisfactory Condition Arterial: satisfactory Condition Venous: unsatisfactory Condition Venous: satisfactory Good Flows: [x] YES [ ] NO Bruising Observed: [ ] YES [x] NO Local Anesthetic (min): [x] YES [ ] NO Hemostasis Time: Arterial Port (min): 10 Venous Port (min): 12 Cannulated Glen: 1 Staff: EASU RENDON Cannulated Art: 1 Staff: ESAU RENDON General: Today's Assessment: Predialysis == Extra Treatment: [ ] YES [x] NO Received From: Staff On: VIJAY BLAS Station: Room 02 Machine #: Tablo 01 Resp Caregiver: Treat Caregiver: Arrival Time: 21-Jan-2024 1250 Mode: walking By/With: unaccompanied Vital Signs Temp(C): 97.70 Resp: 20 Time: 1255 Sitting BP: 126/69 Sitting Pulse: 58 Time: BP: Pulse: Weights Measure Wt(kg): 102.80 Target Weight(kg): 0.00 Prosthesis Wt(kg): or Target UF(kg): 0.00 Wheelchair Wt(kg): Weight Change(kg): Current Wt(kg): 102.80 Excess Weight(kg): 102.80 Total Fluid Admin(kg): 0.40 Expected UF Vol(kg): 103.20 Target TMP(mm/Hg): UFR(kg/hr : ml/kg/hr): 34.27 : ? 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 c/o pain of the AVF VIRGIE , swelling. redness, and bruised. FUNMI Arredondo visited the Pt. Xylocaine 1% Locally given prior to insert #17 G needle. Duration of 3 hrs, UF goal set 0.5 L as Joe. Dialysis Treatment Options Topics covered with this education session include: [ x ] Hemodialysis, Medication. [ ] Peritoneal Dialysis [ ] Kidney Transplant [ ] Conservative management - no treatment [ ] Terminating dialysis Learner Type: Delivery Method: [ ] Family [ ] Handout [x ] Patient [ x ] Lecture [ ] Care Provider Patient and/or Caregiver Learning Evaluation: [ ] Excellent - Demonstrates Independently [ ] Very Good - Explains in Own Words [ x ] Good - Verbalizes Understanding [ ] Fair - Demonstrates With Assistance [ ] Follow Up Required - Requires Follow up [ ] Poor - Needs Assistance Comments: [ Acknowledged On: By: Pain: Acuity: 0 Type: Location: Measures: Heparin: Pump Start At: By: Hourly Rate: Bolus: Same Syringe: [ ] YES [x] NO Total in Syringe: Verified By: Time: Communication: Preferred Language: Belarusian Providier Proficient: [ ] YES [x] 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 Desired: [ ] YES [x] NO Offered: [ ] YES [x] NO Dialysis Log DIALYSIS LOG Start Date/Time: 21-Jan-2024 4158 Table 1: Dialysis Data Time BP MAP Pulse BFR BVP AP FISHER DIVING TMP UFR TFR HEP Hep Com 1259 150 0.0 -40 100 0.00 0.0 1320 123/69 61 200 -110 190 30 -330.0 0.0 1340 142/70 57 200 -110 210 -230.0 0.0 1605 144/77 60 200 -120 180 450.00 0.0 1610 0 -120 190 32 500.00 0.0 1358 134/74 57 200 -110 230 31 -180.0 0.0 1430 136/71 57 180 -90 240 -60.00 0.0 1505 146/75 58 200 -120 170 100.00 0.0 1430 143/74 58 200 -120 180 210.00 0.0 1530 143/74 58 200 -120 180 210.00 0.0 1554 149/71 59 200 -130 180 340.00 0.0 Table 2: Dialysate Bath Time DFR ADV Temp K Ca Na HC03 1259 300.00 2.00 3.00 1320 300.00 2.00 3.00 1340 300.00 2.00 3.00 1605 300.00 2.00 3.00 1610 2.00 3.00 1358 300.00 2.00 3.00 1430 300.00 2.00 3.00 1505 300.00 2.00 3.00 1430 300.00 2.00 3.00 1530 300.00 2.00 3.00 1554 300.00 2.00 3.00 Table 3: Patient Assessment Acknowledge Time Author Access Visible Patient Status [x] YES [ ] NO HD Tx intiated. 21-Jan-2024 VIJAY BLAS [x] YES [ ] NO Pt on phone. 21-Jan-2024 VIJAY BLAS [x] YES [ ] NO Pt Watching TV. 21-Jan-2024 VIJAY BLAS [x] YES [ ] NO Pt resting well. 21-Jan-2024 VIJAY BLAS [ ] YES [x] NO HD Tx completed. 21-Jan-2024 VIJAY BLAS [ ] YES [x] NO Venous Pressure alarm. 21-Jan-2024 VIJAY BLAS [x] YES [ ] NO BFR reduced. 21-Jan-2024 VIJAY BLAS [x] YES [ ] NO Pt resting well. [ ] YES [x] NO 21-Jan-2024 VIJAY BLAS [ ] YES [x] NO Pt resting well. 21-Jan-2024 VIJAY BLAS [ ] YES [x] NO Pt is awake and alaert. Medication Log Medication Log Start Date/Time: Events Log == Time Resolved Complication Comments Author Brigitte Spent [place] Notified Ack'george Nurse Postdialysis = Clotted: [ ] YES [x] NO Infiltrated: [ ] YES [x] NO Extra Treatment: [ ] YES [x] NO Procedure: Daily dialysis treatment Stop Date/Time: 21-Jan-2024 Dialysis Time(hrs): 3:10 Staff Off: VIJAY BLAS Effective Time(hrs): Resp Caregiver: Departure Time: 1649 By/With: unaccompanied Mode: walking Visit Disposition: Discharged Home (private dwelling, not an institution, no support services) Patient Sent To: Pain Acuity: 0 Type: Location Measures Measures Measures Weights Measured Wt.(kg): 102.40 Prosthesis Wt.(kg): Wheelchair Wt(kg): Post Dialysis Wt(kg): 102.40 Target Weight(kg): 0.00 Target UF(kg): 0.00 Removed Wt(kg): 0.40 Fluid Removed(kg): 500.00 Effective UFR (kg/hr:ml/kg/hr): 0.13 : 1.2 Dialysate Used(L): 57.30 Patient Status Temp(C): 97.80 Resp: 20 Sitting BP: 152/67 Sitting Pulse: 60 BP: Pulse: Lowest BP: 123/69 BV Processed: Heparin Total Ordered: 0.00 Total Infused: Left in Syringe: Verified At: By: 2nd sample grinder: By: Fluid Intake Total Ingested(kg): Total HDF Administered(kg): Avg HDF(kg/hr): Hematocrit(%): Hemoglobin(mg/dL): KT/V: Relative Blood Volume(%): Final Effective Ionic Dialysance: Dialyzer Post Dial Rating: Streaked-few f Acid Disinfect: 1713 Chemical Cycle Start At: Heat Cycle Start At: 1726 Patient Condition: 21-Jan-2024 172 VIJAY BLAS a/o/2-3, Treatment tolerated without complication, Discharged ambulatory Nursing Assessment: 21-Jan-2024 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 no c/o pain. mode bleeding from venous site. Duration of 3 hrs, Total UF 0.5 L. Dietary and Fluid Restrictions Topics covered with this education session include: [ ] Kidney test results [ ] Chronic kidney disease tests [ ] Other important tests [ ] Phosphorus and its importance [ ] Sodium and its importance [x ] Potassium and its importance [ x ] Protein and its importance [x ] Food labels, Monitor fluid intake betweenTx. Learner Type: Delivery Method: [ ] Family [...] - Needs Assistance Comments: [ Acknowledged On: Acknowledged By: Preparation == Station: Room 02 Machine #: Tablo 01 MACHINE DISINFECTION Acid Cycle: 21-Jan-2024 Heat Cycle: 21-Jan-2024 Chemical Cycle: Disinfect Clear Status: MACHINE CHECKS Original All Steps Completed: [x] YES [ ] NO Alarm Test Complete: 21-Jan-2024 Alarms Audible: 21-Jan-2024 Checked prescription: 21-Jan-2024 Checked conductivity: 21-Jan-2024 Double checked 21-Jan-2024 Patient identified: 21-Jan-2024 prescription: Time Out: 21-Jan-2024 Conductivity: Calcium: 3 Dialysate Temperature: 37.00 Potassium: 2 Bicarb: 35 Reading confirmation: 21-Jan-2024 Conductivity: pH: Replacement All Steps Completed: [x] YES [ ] NO Alarm Test Complete: 21-Jan-2024 Alarms Audible: 21-Jan-2024 Checked prescription: 21-Jan-2024 Checked conductivity: 21-Jan-2024 Double checked 21-Jan-2024 Patient identified: 21-Jan-2024 prescription: Time Out: 21-Jan-2024 Conductivity: K+: 2 pH: Ca+: 3 Dialysate Temp (C): 37.00 Material ===== MATERIAL / DIALYZER REUSE Start Machine (#): Tablo 01 Time Failed: Replacement Machine: Replaced time: Reason: Dialyzer Label: Nipro Elisio - 19H Reprocessed #: Dialyzer Lot: Pre-dialysis Dialyzer Rating: Check 1: 21-Jan-2024 1215 VIJAY BLAS Check 2: 21-Jan-2024 1230 [place] Location: [id number] // VIJAY BLAS RN REGISTERED NURSE Signed: 01/21/2024 18:18 VIJAY BLAS [facility]
--- OUTSIDE RECORDS SUMMARY | 2024-12-05 00:25 | XMS_ITS ---
Author Name [facility] [facility] [place] Address [address] [place] [address] Care Team Providers Care Industrial Pharmacist Name Role Phone ERIKA DEE Primary Care [...] PART A Jul 12, 2019 PART A [id number] PRASANNA KATZ PATIENT MEDICARE (WNR) MEDICARE (M) PART A Jul 12, 2019 PART A [id number] [phone] PRASANNA KATZ PATIENT Selected Encounter This section includes the information on record at [place] for the Encounter. Date/Time Encounter Type Encounter Description Reason Provider Source May 16, 2024 02:00 PM OFFICE O/P EST MOD 30 MIN PRIMARY CARE/MEDICINE ICD-10-CM N18.6 End stage renal disease HERB MARTE Encounter Template Text not used by [place] Assessments - Encounter Diagnoses This section includes the primary and secondary diagnoses documented for the Encounter. Date/Time Primary/Secondary Diagnosis Diagnosis Name Provider Source May 16, 2024 03:16 PM PRIMARY End stage [facility] May 16, 2024 03:16 PM SECONDARY Obstructive sleep apnea (adult) (pediatric) [facility] May 16, 2024 03:16 PM SECONDARY Osseous obstruction of Eustachian tube, unspecified ear [facility] May 16, 2024 03:16 PM SECONDARY Pain in right hand [facility] May 16, 2024 03:16 PM SECONDARY Type 2 diabetes mellitus w diabetic chronic kidney disease [facility] Plan of Treatment: Future Appointments (+ 6 months) and Future Tests (+/- 45 days) The Plan of Treatment section includes future care activities for the patient from all [place] [facility] This section includes future appointments and future orders which are active, pending or scheduled. Future Appointments This section includes appointments that were scheduled to occur 6 months from the date of the Encounter, up to a maximum of 20 appointments. The data comes from all [place] treatment [facility]. Appointment Date/Time Appointment Type Appointme nt Facility Name Jul 12, 2024 08:00 AM AMBULATORY - NONE [facility] Jul 12, 2024 08:30 AM AMBULATORY - MEDICINE [facility] Aug 18, 2024 09:15 AM AMBULATORY - MEDICINE [facility] Active, Pending, and Scheduled Orders This section includes a listing of several types of active, pending, and scheduled orders, including clinic medications orders, diagnostic test orders, procedure orders and consult orders; where the start date of the order is 45 days before the date of the Encounter or 45 days after the date of theEncounter. The data comes from all [place] treatment [facility]. Test Date/Time Test Type Test Details Facility Name May 16, 2024 12:00 AM Laboratory - Chemi stry Order HGA1C BLOOD SP [facility] Jun 15, 2024 08:20 AM Consult Order [facility]OD[facility]IS Cons Identity Management Developer's Choice [facility] Vital Signs: All taken on the encounter date This section contains inpatient and outpatient Vital Signs collected on the date of the Encounter. Date/Time Temperature Pulse Blood Pressure Respiratory Rate SP02 Pain Height Weight Body Mass Index Source May 16, 2024 02:10 PM 97.6 61 116/64 18 97 0 226.8 34 [facility] Social History: Smoking Status (Most current) and [...] Date/Time Current Smoking Status Comment Facil ity Nov 16, 2023 12:30 PM VA-TOBACCO FORMER USER [facility] Tobacco Use History This section includes a history of the smoking, or tobacco-related health factors, that were collected on or before the date of the Encounter. The data comes from the [place] facility where the Encounter took place. Date/Time Smoking Status/Tobacco Use Comment F acility Nov 16, 2023 12:30 PM VA-TOBACCO QUIT 15 YRS OR MORE [facility] February 11, 2021 02:30 PM VA-TOBACCO FORMER USER [facility] February 11, 2021 02:30 PM VA-TOBACCO QUIT 15 YRS OR MORE [facility] Jul 13, 2018 04:10 PM VA-TOBACCO FORMER USER [facility] Jul 13, 2018 04:10 PM VA-TOBACCO QUIT 15 YRS OR MORE [facility] Jun 11, 2018 08:52 AM QUIT TOBACCO >7 YEARS AGO [facility] May 21, 2018 01:54 PM QUIT TOBACCO >7 YEARS AGO [facility] Advance Directives: All historical and current Section [...] Dec 17, 2022 ADVANCE DIRECTIVE BIJAN MERRITT [facility] Feb 09, 2020 ADVANCE DIRECTIVE DISCUSSION MELY LUCIANO Manjinder [facility] Feb 02, 2018 ADVANCE DIRECTIVE BEAU ALTAMIRANO [facility] Nov 29, 2006 ADVANCE DIRECTIVE MARELY CHACON [facility] Encounter Notes: All associated encounter notes This section contains the clinical notes associated to the Encounter. Date/Time Encounter Note(s) Provider Source May 16, 2024 02:28 PM PRIMARY CARE NOTE: LOCAL TITLE: PRIMARY CARE PROVIDER ESTABLISHED VISIT [facility] STANDARD TITLE: PRIMARY CARE NOTE DATE OF NOTE: MAY 16, 2024@14:28 ENTRY DATE: MAY 16, 2024@14:29:05 AUTHOR: BLU MARTE COSIGNER: URGENCY: STATUS: COMPLETED ESTABLISHED PATIENT [id number]: REASON FOR VISIT/CHIEF COMPLAINT: 68yo male here for f/u visit. Last visit Nov 2023 Non [facility] Providers: CC Dialysis CC Transplant surgery HPI: Hx of ESRD, has started dialysis since his last visit, now doing it twice a week. Reports pain in the right hand for the last few years, reports it starts in the middle of his palm and goes into the whole hand. Reports pain worse in the middle finger. Reports when the pain is bad he has a hard time straightening his fingers, can also hurt to make a fist. --he was seen by Rheumatology in 2021 and had an injection for R trigger finger with improvement in pain for several months. Would like to have this again. DM2, reports currently using only ozempic mainly, will use mealtime insulin if BG above 200. Last a1c 6.0%. --home blood sugars have been 114-180's. --last eye appt December 2023, no retinopathy --has ongoing issues with neuropathy, but unable to use higher doses of gabapentin due to kidney disease. Also reports feeling like ears are clogged since going on an airplane 2 weeks ago. WHAT IS YOUR GOAL FOR TODAY? f/u visit SOURCE(S) OF HISTORY: Patient PAST MEDICAL HISTORY: 1) Type II diabetes [...] disease 20) Superficial incisional surgical site infection FAMILY HISTORY: Reviewed and unchanged. SOCIAL HISTORY: NICOTINE: quit 30 years ago ILLICIT DRUGS: none ALCOHOL: none EXERCISE/DIET: not currently MARITAL STATUS: ALLERGIES: MORPHINE ALLERGY REVIEW: Allergy list reviewed and remains current. MEDICATIONS: Active and Recently Outpatient Medications (excluding Supplies): Active Outpatient Medications Status 1) APIXABAN 5MG TAB TAKE ONE TABLET BY MOUTH TWICE A DAY ACTIVE (S) FOR ANTICOAGULATION 2) ATORVASTATIN CALCIUM 80MG TAB [...] A DAY TO USE WITH INSULIN 7) LIDOCAINE 2.5/PRILOCAINE 2.5% CREAM APPLY SPARINGLY ACTIVE TO AFFECTED AREA(S) THREE TIMES PER WEEK FOR LOCAL ANESTHESTIC FOR AVF CANNULATIO APPLY TO FISTULA SITE AT LEAST 30 MINUTES BEFORE DIALYSIS TREAMENT AND COVER WITH SARAN WRAP 8) MAGNESIUM OXIDE 400MG TAB TAKE ONE [...] TAKE 30 MINUTES PRIOR TO FOOD. 12) PEG 400 0.4%/PROP GLYCOL 0.3% OPH SOLN INSTILL 1 DROP ACTIVE IN BOTH EYES FOUR TIMES A DAY NEEDED FOR DRY EYE(S) 13) RENAL MULTIVIT W/1MG OR LESS FA TAB TAKE 1 TABLET BY ACTIVE MOUTH ONCE A DAY FOR NUTRITION/DIETARY SUPPLEMENTATION 14) SEMAGLUTIDE 1MG/0.75ML INJ PEN 3ML INJECT 1MG UNDER ACTIVE THE SKIN EVERY WEEK FOR DIABETES 15) TAMSULOSIN HCL 0.4MG CAP TAKE ONE CAPSULE BY MOUTH ACTIVE TWICE A DAY FOR BENIGN PROSTATIC HYPERPLASIA APPROXIMATELY 30 MINUTES AFTER THE SAME MEAL EACH DAY Active Non-VA Medications Status 1) Non-VA CARVEDILOL 25MG TAB 25MG BY MOUTH TWICE A DAY ACTIVE 16 Total Medications MEDICATION RECONCILIATION: I have reviewed the patient's medication list with the patient and/or his/her care-hourly caregiver. Handwritten corrections, additions and/or deletions were made to the list. Corrected Outpatient Medication List was provided to the patient/caregiver. REVIEW OF SYSTEMS: Neg other than as noted in HPI PHYSICAL EXAMINATION: VITALS (most recent, as listed in the electronic record): Temperature: 97.6 F [36.4 C] (05/16/2024 14:10) BP: 116/64 (05/16/2024 14:10) Pulse: 61 (05/16/2024 14:10) Resp: 18 (05/16/2024 14:10) PulsOx: 97% (05/16/2024 14:10) Pain: 0 (05/16/2024 14:10) Weight: Measurement DT WEIGHT LB(KG)[BMI] 05/16/2024 14:10 226.8(102.87)[34*] 02/11/2024 14:52 226.64(102.80)[34*] 01/21/2024 14:28 226.64(102.80)[34*] Gen: NAD EYE: PERRLA HEENT: no cerumen blockage bilaterally; TM's w/o erythema or bulging. Cardiovascular: RRR, no murmurs, no edema Respiratory: Lungs CTAB Abd/GI: Abdomen non-distended Extremities: adequate ROM, no edema R HAND: tender in the distal palm, proximal to 3rd digit; no swelling; ROM currently w/o catching, triggering on exam. Hemo/lymph: no adenopathy, excessive bruising Endo: Thyroid without palpable nodules, no excess hair growth Psych: mood and affect appropriate Neuro: Alert and oriented, CN2-12 grossly intact Skin: Clear and intact DATA REVIEW: HGA1C 6.0 % 11/16/2023 16:49 HGA1C 6.2 H % 11/12/2022 12:07 HGA1C 6.4 H % 07/15/2022 12:17 HGA1C 6.2 H % 12/12/2021 16:33 HGA1C 6.8 H % 08/19/2021 14:54 Lipid Panel: TRIGLYCERIDE 191 H mg/dL 11/16/2023 16:49 CHOLESTEROL 135 mg/dL 11/16/2023 16:49 HDL(New) 24 L mg/dL 11/16/2023 16:49 CALCULATED LDL 73 mg/dL 11/16/2023 16:49 ======== CMP: SODIUM 142 mEq/L 02/09/2024 12:40 POTASSIUM 4.1 mEq/L 02/09/2024 12:40 CHLORIDE 107 mEq/L 02/09/2024 12:40 UREA NITROGEN 52.2 H mg/dL 02/09/2024 12:40 CREATININE 7.69 H mg/dL 02/09/2024 12:40 CALCIUM 10.2 mg/dL 02/09/2024 12:40 PROTEIN 7.6 g/dL 01/07/2024 17:30 ALBUMIN 3.7 g/dL 02/09/2024 12:40 ALKALINE PHOSPHATASE 100 U/L 01/07/2024 17:30 ALT/SGPT 17 U/L 01/07/2024 17:30 AST/SGOT 18 U/L 01/07/2024 17:30 TOTAL BILIRUBIN 0.4 mg/dL 01/07/2024 17:30 CARBON DIOXIDE 22 mEq/L 02/09/2024 12:40 GLUCOSE 147 H mg/dL 02/09/2024 12:40 EGFR (CKD-EPI 2020) 7.1 L* 02/09/2024 12:40 ========= CBC: WBC 9.7 10*3/uL 02/09/2024 12:40 RBC 3.09 L 10*6/uL 02/09/2024 12:40 HGB 9.4 L g/dL 02/09/2024 12:40 HCT 28.3 L % 02/09/2024 12:40 MCV 91.6 fL 02/09/2024 12:40 MCH 30.4 pg 02/09/2024 12:40 MCHC 33.2 g/dL 02/09/2024 12:40 RDW 13.1 % 02/09/2024 12:40 PLT 270 10*3/uL 02/09/2024 12:40 MPV 11.5 H fL 02/09/2024 12:40 NEUTROPHILS, AUTO % 71 % 02/09/2024 12:40 LYMPHOCYTES, AUTO % 20 % 02/09/2024 12:40 MONOCYTES, AUTO % 6 % 02/09/2024 12:40 EOSINOPHILS, AUTO % 2 % 02/09/2024 12:40 BASOPHILS, AUTO % 0 % 02/09/2024 12:40 IMMATURE GRANS, AUTO % 0.4 % 06/18/2022 12:10 NEUTROPHILS, ABSOLUTE 6.90 10*3/uL 02/09/2024 12:40 LYMPHOCYTES, ABSOLUTE 1.91 10*3/uL 02/09/2024 12:40 MONOCYTES, ABSOLUTE 0.59 10*3/uL 02/09/2024 12:40 EOSINOPHILS, ABSOLUTE 0.22 10*3/uL 02/09/2024 12:40 BASOPHILS, ABSOLUTE 0.02 10*3/uL 02/09/2024 12:40 IMMATURE GRANS, AUTO ABS 0.03 10*3/uL 06/18/2022 12:10 PROST. SPECIFIC AG.(PB-STL) 1.429 ng/mL 12/30/2021 15:50 PROST. SPECIFIC AG.(PB-STL) 0.933 ng/mL 01/30/2021 12:54 PROST. SPECIFIC AG.(PB-STL) 0.611 ng/ml 12/05/2019 16:05 TSH: No TSH (1YR) EO data found ========= VITAMIN D, 25-HYDROXY 46.8 ng/mL 08/31/2023 16:36 VITAMIN D, 25-HYDROXY 40.5 ng/mL 03/18/2023 11:46 VITAMIN D, 25-HYDROXY 22.4 L ng/mL 11/12/2022 12:07 INR: INR VALUE 1.4 INR 01/21/2024 12:55 PROTIME 15.9 H sec 01/21/2024 12:55 UA: URINE COLOR Colorless 01/07/2024 19:30 APPEARANCE Clear 01/07/2024 19:30 U.PH 5.5 01/07/2024 19:30 U.BILIRUBIN Negative mg/dL 01/07/2024 19:30 U.NITRITE Negative mg/dL 01/07/2024 19:30 URINE RBC/HPF 1 /HPF 01/07/2024 19:30 URINE WBC/HPF 1 /HPF 01/07/2024 19:30 BACTERIA RARE /HPF 06/22/2023 09:46 SQUAMOUS EPITH. <1 /HPF 01/07/2024 19:30 MUCUS RARE /LPF 07/15/2022 12:23 IM - IMMUNIZATIONS ADMINISTERED Immunization Series Date Facility Reaction Info COVID-19 (MODERNA), MRNA, LNP-S,* 1 06/30/2022 [facility] <C> COVID-19 (MODERNA), MRNA, LNP-S,* 3 08/12/2021 [facility] <C> COVID-19 (PFIZER), MRNA, LNP-S, * 2 02/13/2021 [facility] <C> COVID-19 (PFIZER), MRNA, LNP-S, * 1 01/23/2021 [facility]* <C> COVID-19 (PFIZER), MRNA, LNP-S, * 4 02/05/2022 [facility] <C> COVID-19 (PFIZER), MRNA, LNP-S, * C 08/31/2023 [facility]* HEP B, ADULT 3 10/29/2021 [facility]* HEP B, ADULT 2 05/24/2021 [facility] HEP B, ADULT 1 04/24/2021 [facility] INFLUENZA, ADJUVANTED, QUADRIVAL* 06/30/2022 [facility] INFLUENZA, ADJUVANTED, QUADRIVAL* 07/12/2021 [facility]* INFLUENZA, HIGH-DOSE, QUADRIVALE* C 08/31/2023 [facility]* INFLUENZA, HIGH-DOSE, TRIVALENT,* 07/17/2020 [facility] INFLUENZA, SPLIT VIRUS, QUADRIVA* 07/13/2019 [facility] INFLUENZA, SPLIT VIRUS, QUADRIVA* 07/13/2018 [facility] INFLUENZA, UNSPECIFIED FORMULATI* 07/21/2019 [facility] * INFLUENZA, UNSPECIFIED FORMULATI* 07/13/2018 [facility] * PNEUMOCOCCAL CONJUGATE PCV 13 07/13/2018 [facility]* PNEUMOCOCCAL POLYSACCHARIDE PPV23 07/13/2019 [facility]* ZOSTER RECOMBINANT 2 07/12/2021 . [facility]* ZOSTER RECOMBINANT 1 04/24/2021 [facility] CONTRAINDICATED No data available REFUSED ======= Immunization Date Facility Info COVID-19 (MODERNA), MRNA, LNP-S,* 05/16/2024 [facility] <I> TDAP 05/16/2024 [facility] <I> ASSESSMENT/PLAN: 1) ESRD: now on dialysis, having done Thursday and Thursday at dialysis clinic. --will continue to see them to manage renal disease. --reports still on transplant list; reports that his transplant provider has advised changing to warfarin when preparing for surgery. Can discussed with anticoag clinic when needed 2) DM2: controlled; goal <7.0%. last a1c 6.0%; since then has discontinued insulins and is now only using ozempic. A1c ordered. --last eye exam December 2023 w/o retinopathy --foot exam today normal but having issues with neuropathic pain; on gabapentin and dose adjusted for HD and advised of recommendation. --on statin 3) R hand pain: hx of trigger finger 3rd digit, [facility] with improvement in pain for several months. --now with return of pain, especially when driving. Would like to have repeat injection. Will get repeat xrays and refer to Rheum vs Ortho once complete. 4) Ears clogged: reports ears feeling clogged for the last 2 weeks since returning from a flight and could not clear his ears. --exam showing no cerumen. --advise trial of afrin x 3 days, no longer. --also prescribed flonase to use if no improvement with Afrin. 5) JONAH: last sleep study showing severe OA, but has been intolerant of CPAP. Reports feels like he is suffocating. --interested in Inspire; has CC sleep med consult in place. Advise they may request repeat sleep study to determine eligibility for Inspire. RETURN TO CLINIC: 6 months SUMMARY STATEMENT: Plan of care has been discussed with including expected therapeutic benefits and potential side effects of prescribed medication and treatments. verbalizes understanding and is in agreement with the plan of care. Patient was instructed to keep all scheduled appointments and contact distribution operation supervisor for any additional problems. PREVENTION & SCREENING: ALCOHOL: Clinical Reminder not due now or within a month COLORECTAL CANCER: Clinical Reminder not due now or within a month BLOOD PRESSURE: Clinical Reminder not due now or within a month HEMOGLOBIN A1C: Clinical Reminder not due now or within a month PAVE Foot Check: A complete foot check was completed at this encounter. VISUAL INSPECTION: Includes inspection for skin breaks, deformity, erythema, trauma, pallor on elevation, dependent rubor, nail deformities, extensive callus and pitting edema. Visual exam results: Normal PEDAL PULSES: Includes palpation of dorsalis and posterior tibial pulses and signs/symptoms of vascular compromise like pain, pallor, parasthesia or paralysis. Present (even if diminished) SENSORY CHECK: Includes 10 gram Monofilament (Fletcher-Dana) test of sensation. Intact (Greater than or equal to 80% of sites checked) Abnormal (Less than 80% of sites checked): Intact LOW-RISK: LOW RISK INFORMATION PROVIDED: 1. Advised patient not to walk barefoot. 2. Explained the importance of daily foot checks for changes. 3. Stressed the importance of daily foot hygiene, including bathing and complete drying. /edwar/ BLU MARTE Staff Physician Signed: 05/16/2024 18:08 BLU MARTEManjinder [facility] May 16, 2024 02:18 PM NURSING NOTE: LOCAL TITLE: V15 PACT FACE TO FACE NOTE [facility] [place] STANDARD TITLE: NURSING NOTE DATE OF NOTE: MAY 16, 2024@14:18 ENTRY DATE: MAY 16, 2024@14:18:16 AUTHOR: LORENA FONTAINE COSIGNER: URGENCY: STATUS: COMPLETED Provider Visit: Patient Identifiers : Full Name Date of Reason for visit: Established Follow-Up Patient states he is here for a routine visit/ears are clogged. Mode of Arrival: Ambulatory Allergy Review: MORPHINE Allergy list reviewed and remains current. Recent Vital Signs: Temperature: 97.6 F [36.4 C] (05/16/2024 14:10) Pulse: 61 (05/16/2024 14:10) Respiration: 18 (05/16/2024 14:10) B/P: 116/64 (05/16/2024 14:10) Pain: 0 (05/16/2024 14:10) Wt: 226.8 lb [102.87 kg] (05/16/2024 14:10) Ht: 69 in [175.3 cm] (11/16/2023 12:36) BMI: 33.6 POX: 97% (05/16/2024 14:10) Would you like to discuss any personal problem, family problem, alcohol use, drug use, or a mental or emotional illness? No My [facility] ([facility]), please select appointment type: [place] Video Connect (VVC) - Are you registered for [facility]? No- Are you interested in getting this done? Yes-please provide the [employer] with directions to the nearest staff member with [facility] Authenticator access. Contact provided Primary Care phone number and encouraged to call if any questions or concerns. Review that after hours nurse line [phone] and emergency room are available 04/05 for patient use. Contact verbalized good understanding. COVID-19 Immunization: Refused Moderna Monovalent COVID-19 vaccine Immunization: COVID-19 (MODERNA), MRNA, LNP-S, PF, 50 MCG/0.5 ML (AGES 12+ YEARS) Refusal Reason: PATIENT DECISION Patient refuses all immunization(s) in the COVID-19 group Date Documented: 05/16/24 14:19 Depression Screening: Perform PHQ-2 A PHQ-2 screen was performed. The score was 0 which is a negative screen for depression. Over the past two weeks, how often have you been bothered by the following problems? 1. Little interest or pleasure in doing things Not at all 2. Feeling down, depressed, or hopeless Not at all Homelessness/Food Insecurity Screen: In the past 2 months, have you been living in stable housing that you own, rent, or stay in as part of a household? Yes - Living in stable housing. Are you worried or concerned that in the next 2 months you may NOT have stable housing that you own, rent, or stay in as part of a household? No - Not worried about housing near future The [employer] reports the following: Within the past 12 months, you worried whether your food would run out before you got money to buy more. Never true Within the past 12 months, the food you bought just didn't last and you didn't have money to get more. Never true Tdap Immunization: The patient declines to receive the recommended dose of Tdap vaccine. Immunization: TDAP Refusal Reason: PATIENT DECISION Patient refuses all immunization(s) in the TDAP group Date Documented: 05/16/24 14:20 /edwar/ LORENA FONTAINE LPN LICENSED PRACITCAL NURSE Signed: 05/16/2024 14:22 LORENA FONTAINE [facility]
--- OUTSIDE RECORDS SUMMARY | 2024-12-05 00:25 | XMS_ITS ---
Author Name [facility] [place] [facility] [facility] [place] Address [address] [place] [address] Care Team Providers Care Prison Guard Name Role Phone ERIKA DEE Primary [...] PART A Jul 12, 2019 PART A [id number] PRASANNA KATZ PATIENT MEDICARE (WNR) MEDICARE (M) PART A Jul 12, 2019 PART A [id number] [phone] PRASANNA KATZ PATIENT Selected Encounter This section includes the information on record at [place] for the Encounter. Date/Time Encounter Type Encounter Description Reason Provider Source Jan 14, 2024 01:05 PM OFFICE O/P EST MOD 30 MIN ASSISTED HEMODIALYSIS ICD-10-CM I10 Essential (primary) hypertension CHENG PURCELLATONILAM IHJono Encounter Template Text not used by [place] Assessments - Encounter Diagnoses This section includes the primary and secondary diagnoses documented for the Encounter. Date/Time Primary/Secondary Diagnosis Diagnosis Name Provider Source Jan 14, 2024 06:22 PM PRIMARY Essential (primary) hypertension GISELE PURCELL [facility] Jan 14, 2024 06:22 PM SECONDARY Dependence on renal dialysis GISELE PURCELL [facility] Jan 14, 2024 06:22 PM SECONDARY Mixed disorder of acid-base balance GISELE PURCELL [facility] Plan of Treatment: Future Appointments (+ 6 months) and Future Tests (+/- 45 days) The Plan of Treatment section includes future care activities for the patient from all [place] [facility]. This section includes future appointments and future orders which are active, pending or scheduled. Future Appointments This section includes appointments that were scheduled to occur 6 months from the date of the Encounter, up to a maximum of 20 appointments. The data comes from all [place] treatment facilities. Appointment Date/Time Appointment Type Appointme nt Facility Name Jan 21, 2024 12:30 PM AMBULATORY - MEDICINE [facility] Jan 23, 2024 12:30 PM AMBULATORY - MEDICINE [facility] Jan 25, 2024 02:30 PM AMBULATORY - MEDICINE [facility] Jan 26, 2024 12:30 PM AMBULATORY - MEDICINE [facility] Jan 28, 2024 12:30 PM AMBULATORY - MEDICINE [facility] Feb 02, 2024 12:30 PM AMBULATORY - MEDICINE [facility] Feb 04, 2024 12:15 PM AMBULATORY - MEDICINE [facility] Feb 06, 2024 12:30 PM AMBULATORY - MEDICINE [facility] Feb 09, 2024 12:30 PM AMBULATORY - MEDICINE [facility] February 11, 2024 12:30 PM AMBULATORY - MEDICINE [facility] February 13, 2024 12:30 PM AMBULATORY - MEDICINE [facility] February 15, 2024 08:00 AM AMBULATORY - NONE [facility] February 15, 2024 08:30 AM AMBULATORY - MEDICINE [facility] Apr 05, 2024 09:30 AM AMBULATORY - MEDICINE [facility] Apr 27, 2024 07:30 AM AMBULATORY - SURGERY [facility] May 02, 2024 08:00 AM AMBULATORY - NONE [facility] May 02, 2024 08:30 AM AMBULATORY - MEDICINE [facility] May 16, 2024 02:00 PM AMBULATORY - MEDICINE [facility] Jul 12, 2024 08:00 AM AMBULATORY - NONE [facility] Jul 12, 2024 08:30 AM AMBULATORY - MEDICINE [facility] Lab Results: +/- 30 days of [...] Range Comment Feb 09, 2024 12:40 PM [facility] HEP HB S Ag ([place]RI[place]) (STL) Specimen Type: SERUM No comment entered. Ordering Provider: KYLER PURCELL Report Released Date/Time: Feb 09, 2024 10:43 AM Reporting Lab: [facility] [address] [place] [address] Performing Lab: [address] [address] HEP HB S Ag ([place]) (STL) Nonreactive Nonreactive Feb 09, 2024 12:40 PM [facility] HEP B CORE AB TOTAL. (STL) Specimen Type: SERUM No comment entered. Ordering Provider: KYLER PURCELL Report Released Date/Time: Feb 09, 2024 10:43 AM Reporting Lab: [address] [address] Performing Lab: [address] [address] HEP B CORE AB TOTAL. (STL) Nonreactive Nonreactive Feb 09, 2024 12:40 PM [facility] HEPATITIS B SURFACE AB PNL Specimen Type: SERUM No comment entered. Ordering Provider: KYLER PURCELL Report Released Date/Time: Feb 09, 2024 10:43 AM Reporting Lab: [address] [address] Performing Lab: [place] [phone] HEP B Surface Ab-HBsAB (L) REACTIVE m[IU]/mL Nonreactive HEP Bs AB-QUANT (L) 79.36 m[IU]/mL Feb 09, 2024 12:40 PM [facility] CBC Specimen Type: BLOOD No comment entered. Ordering Provider: KYLER PURCELL Report Released Date/Time: Feb 04, 2024 03:20 PM Reporting Lab: [address] [address] Performing Lab: [address] [address] WBC 9.7 10*3/uL 3.6-11.2 RBC 3.09 10*6/uL [...] 10*3/uL 0.00-0.20 Feb 09, 2024 12:40 PM [facility] RENAL PANEL Specimen Type: PLASMA Comment: No hemolysis noted. Ordering Provider: KYLER PURCELL Report Released Date/Time: Feb 04, 2024 03:20 PM Reporting Lab: [address] [address] Performing Lab: [address] [address] CREATININE 7.69 mg/dL H 0.7-1.3 UREA NITROGEN 52.2 mg/dL H 9.0-25.0 GLUCOSE 147 mg/dL H 72-99 SODIUM 142 meq/L 136-145 POTASSIUM 4.1 meq/L 3.5-5 CHLORIDE 107 meq/L 98-107 CARBON DIOXIDE 22 meq/L 22-31 CALCIUM 10.2 mg/dL 8.4-10.4 PHOSPHOROUS 3.7 mg/dL 2.3-4.7 ALBUMIN 3.7 g/dL 3.4-5 EGFR (CKD-EPI 2020) 7.1 LL >60 Feb 04, 2024 05:00 PM [facility] URR-POST PANEL (STL) Specimen Type: PLASMA No comment entered. Ordering Provider: KYLER PURCELL Report Released Date/Time: Feb 04, 2024 01:42 PM Reporting Lab: [address] [address] Performing Lab: [address] [address] BUN-POST DIALYSIS 16.2 mg/dL 9.0-25.0 URR (STL) 70.4 67.0-100.0 Feb 04, 2024 12:45 PM [facility] RENAL PANEL Specimen Type: PLASMA Comment: No hemolysis noted. Ordering Provider: KYLER PURCELL Report Released Date/Time: Feb 04, 2024 01:42 PM Reporting Lab: [address] [address] Performing Lab: [facility] [address] [place] [address] CREATININE 6.97 mg/dL H 0.7-1.3 UREA NITROGEN 54.7 mg/dL H 9.0-25.0 GLUCOSE 134 mg/dL H 72-99 SODIUM 142 meq/L 136-145 POTASSIUM 4.0 meq/L 3.5-5 CHLORIDE 105 meq/L 98-107 CARBON DIOXIDE 24 meq/L 22-31 CALCIUM 9.7 mg/dL 8.4-10.4 PHOSPHOROUS 4.8 mg/dL H 2.3-4.7 ALBUMIN 3.9 g/dL 3.4-5 EGFR (CKD-EPI 2020) 7.9 LL >60 Feb 02, 2024 04:30 PM [facility] URR-POST PANEL (STL) Specimen Type: PLASMA No comment entered. Ordering Provider: KYLER PURCELL Report Released Date/Time: Feb 02, 2024 03:39 PM Reporting Lab: [address] [address] Performing Lab: [address] [address] BUN-POST DIALYSIS 22.9 mg/dL 9.0-25.0 URR (STL) 60.9 L 67.0-100.0 Feb 02, 2024 11:50 AM [facility] RENAL PANEL Specimen Type: PLASMA Comment: No hemolysis noted. Ordering Provider: KYLER PURCELL Report Released Date/Time: Feb 02, 2024 07:35 AM Reporting Lab: [address] [address] Performing Lab: [address] [address] CREATININE 8.34 mg/dL H 0.7-1.3 UREA NITROGEN 58.6 mg/dL H 9.0-25.0 GLUCOSE 169 mg/dL H 72-99 SODIUM 142 meq/L 136-145 POTASSIUM 4.6 meq/L 3.5-5 CHLORIDE 111 meq/L H 98-107 CARBON DIOXIDE 20 meq/L L 22-31 CALCIUM 9.2 mg/dL 8.4-10.4 PHOSPHOROUS 3.6 mg/dL 2.3-4.7 ALBUMIN 3.7 g/dL 3.4-5 EGFR (CKD-EPI 2020) 6.4 LL >60 Feb 01, 2024 11:00 PM [facility] 24H UR CHEM PANEL (STL) Specimen Type: 24-HOUR URINE No comment entered. Ordering Provider: KYLER PURCELL Report Released Date/Time: Jan 28, 2024 04:55 PM Reporting Lab: [address] [address] Performing Lab: [address] [address] VOLUME 3289 mL SODIUM 24-HOUR URINE 226.941 H 40-220 POTASSIUM 24-HOUR URINE 35.8501 25-125 CHLORIDE 24-HOUR URINE 171.028 110-250 PROTEIN 24-HOUR URINE 1986.556 H 0-299.9 CREATININE 24-HOUR URINE 2078.789 186-2685 Jan 28, 2024 05:29 PM [facility] CBC Specimen Type: BLOOD No comment entered. Ordering Provider: KYLER PURCELL Report Released Date/Time: Jan 28, 2024 05:07 PM Reporting Lab: [address] [address] Performing Lab: [address] [address] WBC 8.9 10*3/uL 3.6-11.2 RBC 2.96 10*6/uL [...] 10*3/uL 0.00-0.20 Jan 26, 2024 01:00 PM [facility] PTH, INTACT (STL) Specimen Type: SERUM No comment entered. Ordering Provider: KYLER PURCELL Report Released Date/Time: Jan 21, 2024 03:14 PM Reporting Lab: [address] [address] Performing Lab: [address] [address] PTH, INTACT (STL) 141.40 pg/mL H 8.7-77.7 Jan 26, 2024 01:00 PM [facility] RENAL PANEL Specimen Type: PLASMA Comment: No hemolysis noted. Ordering Provider: KYLER PURCELL Report Released Date/Time: Jan 21, 2024 03:14 PM Reporting Lab: [address] [address] Performing Lab: [address] [address] CREATININE 8.25 mg/dL H 0.7-1.3 UREA NITROGEN 63.1 mg/dL H 9.0-25.0 GLUCOSE 157 mg/dL H 72-99 SODIUM 137 meq/L 136-145 POTASSIUM 4.2 meq/L 3.5-5 CHLORIDE 100 meq/L 98-107 CARBON DIOXIDE 26 meq/L 22-31 CALCIUM 9.6 mg/dL 8.4-10.4 PHOSPHOROUS 4.9 mg/dL H 2.3-4.7 ALBUMIN 3.7 g/dL 3.4-5 EGFR (CKD-EPI 2020) 6.5 LL >60 Jan 26, 2024 01:00 PM [facility] FERRITIN Specimen Type: SERUM No comment entered. Ordering Provider: KYLER PURCELL Report Released Date/Time: Jan 21, 2024 03:14 PM Reporting Lab: [address] [address] Performing Lab: [address] [address] FERRITIN 118.78 ng/mL 22-275 Jan 26, 2024 01:00 PM [facility] IRON/TIBC PROFILE Specimen Type: SERUM No comment entered. Ordering Provider: KYLER PURCELL Report Released Date/Time: Jan 21, 2024 03:14 PM Reporting Lab: [address] [address] Performing Lab: [address] [address] TIBC 225 ug/dL L 250-450 TRANSFERRIN 180 mg/dL 163-344 IRON SATURATION 23 20-50 IRON 52 ug/dL L 65-175 Jan 26, 2024 01:00 PM [facility] CBC Specimen Type: BLOOD No comment entered. Ordering Provider: KYLER PURCELL Report Released Date/Time: Jan 21, 2024 03:14 PM Reporting Lab: [address] [address] Performing Lab: [address] [address] WBC 7.8 10*3/uL 3.6-11.2 RBC 2.95 10*6/uL [...] 10*3/uL 0.00-0.20 Jan 21, 2024 12:55 PM [facility] PT/INR NEW (ST-LA) Specimen Type: PLASMA No comment entered. Ordering Provider: KYLER PURCELL Report Released Date/Time: Jan 21, 2024 12:43 PM Reporting Lab: [address] [address] Performing Lab: [address] [address] PROTIME 15.9 s H 9.4-12.5 INR VALUE 1.4 {INR} Jan 21, 2024 12:55 PM [facility] RENAL PANEL Specimen Type: PLASMA Comment: No hemolysis noted. Ordering Provider: KYLER PURCELL Report Released Date/Time: Jan 21, 2024 12:41 PM Reporting Lab: [address] [address] Performing Lab: [address] [address] CREATININE 8.11 mg/dL H 0.7-1.3 UREA NITROGEN 82.6 mg/dL H 9.0-25.0 GLUCOSE 114 mg/dL H 72-99 SODIUM 139 meq/L 136-145 POTASSIUM 5.1 meq/L H 3.5-5 CHLORIDE 109 meq/L H 98-107 CARBON DIOXIDE 19 meq/L L 22-31 CALCIUM 9.3 mg/dL 8.4-10.4 PHOSPHOROUS 4.1 mg/dL 2.3-4.7 ALBUMIN 3.8 g/dL 3.4-5 EGFR (CKD-EPI 2020) 6.6 LL >60 Jan 14, 2024 11:55 AM [facility] RENAL PANEL Specimen Type: PLASMA Comment: No hemolysis noted. Ordering Provider: KYLER PURCELL Report Released Date/Time: Jan 13, 2024 07:58 AM Reporting Lab: [address] [address] Performing Lab: [address] [address] CREATININE 8.05 mg/dL H 0.7-1.3 UREA NITROGEN 70.7 mg/dL H 9.0-25.0 GLUCOSE 155 mg/dL H 72-99 SODIUM 140 meq/L 136-145 POTASSIUM 5.1 meq/L H 3.5-5 CHLORIDE 107 meq/L 98-107 CARBON DIOXIDE 21 meq/L L 22-31 CALCIUM 9.6 mg/dL 8.4-10.4 PHOSPHOROUS 4.8 mg/dL H 2.3-4.7 ALBUMIN 4.1 g/dL 3.4-5 EGFR (CKD-EPI 2020) 6.7 LL >60 Jan 11, 2024 11:36 AM [facility] GLUCOSE,BLOOD-poct (STL) Specimen Type: BLOOD Comment: Test Performed by: [id number] Meter #: [id number] Ordering Provider: LIDIA HUYNH Report Released Date/Time: Jan 11, 2024 11:50 AM Reporting Lab: [address] [address] Performing Lab: [address] [address] GLUCOSE,BLOOD- poct (STL) 106 mg/dL H 72-99 Jan 11, 2024 11:07 AM [facility] GLUCOSE,BLOOD-poct (STL) Specimen Type: BLOOD Comment: Test Performed by: [id number] Meter #: [id number] Ordering Provider: LIDIA HUYNH Report Released Date/Time: Jan 11, 2024 11:18 AM Reporting Lab: [address] [address] Performing Lab: [place] [address] [facility] [address] GLUCOSE,BLOOD- poct (STL) 109 mg/dL H 72-Jan 11, 2024 05:12 AM [facility] GLUCOSE,BLOOD-poct (STL) Specimen Type: BLOOD Comment: Test Performed by: [id number] Meter #: [id number] Ordering Provider: LIDIA HUYNH Report Released Date/Time: Jan 11, 2024 05:25 AM Reporting Lab: [place] [address] [facility] [address] Performing Lab: [address] [address] GLUCOSE,BLOOD- poct (STL) 88 mg/dL -Jan 10, 2024 08:19 PM [facility] GLUCOSE,BLOOD-poct (STL) Specimen Type: BLOOD Comment: Test Performed by: [id number] Meter #: [id number] Ordering Provider: LIDIA HUYNH Report Released Date/Time: Jan 10, 2024 08:31 PM Reporting Lab: [address] [address] Performing Lab: [address] [address] GLUCOSE,BLOOD- poct (STL) 153 mg/dL H -Jan 10, 2024 04:15 PM [facility] GLUCOSE,BLOOD-poct (STL) Specimen Type: BLOOD Comment: Test Performed by: [id number] Meter #: [id number] Ordering Provider: LIDIA HUYNH Report Released Date/Time: Jan 10, 2024 05:05 PM Reporting Lab: [address] [address] Performing Lab: [address] [address] GLUCOSE,BLOOD- poct (STL) 84 mg/dL 72-Jan 10, 2024 11:31 AM [facility] GLUCOSE,BLOOD-poct (STL) Specimen Type: BLOOD Comment: Test Performed by: [id number] Meter #: [id number] Ordering Provider: LIDIA HUYNH Report Released Date/Time: Jan 10, 2024 12:03 PM Reporting Lab: [place] [address] [facility] [address] Performing Lab: [place] [address] [facility] [address] GLUCOSE,BLOOD- poct (STL) 99 mg/dL 72-99 Jan 10, 2024 04:45 AM [facility] GLUCOSE,BLOOD-poct (STL) Specimen Type: BLOOD Comment: Test Performed by: [id number] Meter #: [id number] Ordering Provider: LIDIA HUYNH Report Released Date/Time: Jan 10, 2024 05:29 AM Reporting Lab: [place] [address] [facility] [address] Performing Lab: [address] [address] GLUCOSE,BLOOD- poct (STL) 109 mg/dL H 72-99 Jan 09, 2024 08:08 PM [facility] GLUCOSE,BLOOD-poct (STL) Specimen Type: BLOOD Comment: Test Performed by: [id number] Meter #: [id number] Ordering Provider: LIDIA HUYNH Report Released Date/Time: Jan 09, 2024 08:28 PM Reporting Lab: [place] [address] [facility] [address] Performing Lab: [address] [address] GLUCOSE,BLOOD- poct (STL) 110 mg/dL H 72-99 Jan 09, 2024 04:19 PM [facility] GLUCOSE,BLOOD-poct (STL) Specimen Type: BLOOD Comment: Test Performed by: [id number] Meter #: [id number] Ordering Provider: LINOMED Report Released Date/Time: Jan 09, 2024 04:34 PM Reporting Lab: [address] [address] Performing Lab: [place] [address] [facility] [address] GLUCOSE,BLOOD- poct (STL) 119 mg/dL H 72-99 Jan 09, 2024 02:30 PM [facility] MAGNESIUM Specimen Type: PLASMA Comment: No hemolysis noted. Ordering Provider: TATI ZAVALA Report Released Date/Time: Jan 09, 2024 07:51 AM Reporting Lab: [address] [address] Performing Lab: [place] [address] [facility] [address] MAGNESIUM 1.6 mg/dL 1.6-2.6 Jan 09, 2024 02:30 PM [facility] RENAL PANEL Specimen Type: PLASMA Comment: No hemolysis noted. Ordering Provider: TATI AZVALA Report Released Date/Time: Jan 09, 2024 07:51 AM Reporting Lab: [place] [address] [facility] [address] Performing Lab: [address] [address] CREATININE 5.13 mg/dL H 0.7-1.3 UREA NITROGEN 46.2 mg/dL H 9.0-25.0 GLUCOSE 177 mg/dL H 72-99 SODIUM 136 meq/L 136-145 POTASSIUM 4.0 meq/L 3.5-5 CHLORIDE 101 meq/L 98-107 CARBON DIOXIDE 23 meq/L 22-31 CALCIUM 8.6 mg/dL 8.4-10.4 PHOSPHOROUS 2.7 mg/dL 2.3-4.7 ALBUMIN 3.6 g/dL 3.4-5 EGFR (CKD-EPI 2020) 11.5 LL >60 Jan 09, 2024 12:27 PM [facility] GLUCOSE,BLOOD-poct (STL) Specimen Type: BLOOD Comment: Test Performed by: [id number] Meter #: [id number] Ordering Provider: LIDIA HUYNH Report Released Date/Time: Jan 09, 2024 12:38 PM Reporting Lab: [place] [address] [facility] [address] Performing Lab: [place] [address] [facility] [address] GLUCOSE,BLOOD- poct (STL) 98 mg/dL 72-99 Jan 09, 2024 07:15 AM [facility] GLUCOSE,BLOOD-poct (STL) Specimen Type: BLOOD Comment: Test Performed by: [id number] Meter #: [id number] Ordering Provider: LIDIA HUYNH Report Released Date/Time: Jan 09, 2024 07:58 AM Reporting Lab: [place] [address] [facility] [address] Performing Lab: [place] [address] [facility] [address] GLUCOSE,BLOOD- poct (STL) 86 mg/dL 72-Jan 08, 2024 09:04 PM [facility] GLUCOSE,BLOOD-poct (STL) Specimen Type: BLOOD Comment: Test Performed by: [id number] Meter #: [id number] Ordering Provider: LIDIA HUYNH Report Released Date/Time: Jan 08, 2024 09:47 PM Reporting Lab: [place] [address] [facility] [address] Performing Lab: [address] [address] GLUCOSE,BLOOD- poct (STL) 90 mg/dL 72-Jan 08, 2024 09:01 PM [facility] HEP B CORE AB TOTAL. (STL) Specimen Type: SERUM No comment entered. Ordering Provider: EFREN TAYLOR Report Released Date/Time: Jan 08, 2024 02:35 PM Reporting Lab: [place] [address] [facility] [address] Performing Lab: [address] [address] HEP B CORE AB TOTAL. (STL) Nonreactive Nonreactive Jan 08, 2024 09:01 PM [facility] HEPATITIS B SURFACE AB PNL Specimen Type: SERUM No comment entered. Ordering Provider: EFREN TAYLOR Report Released Date/Time: Jan 08, 2024 02:35 PM Reporting Lab: [address] [address] Performing Lab: [address] [address] HEP B Surface Ab-HBsAB (L) REACTIVE m[IU]/mL Nonreactive HEP Bs AB-QUANT (L) 63.22 m[IU]/mL Jan 08, 2024 09:01 PM [facility] HEP HB S Ag ([place]RI[place]) (STL) Specimen Type: SERUM No comment entered. Ordering Provider: EFREN TAYLOR Report Released Date/Time: Jan 08, 2024 02:35 PM Reporting Lab: [address] [address] Performing Lab: [address] [address] HEP HB S Ag ([place]) (L) Nonreactive Nonreactive Jan 08, 2024 04:47 PM [facility] GLUCOSE,BLOOD-poct (STL) Specimen Type: BLOOD Comment: Test Performed by: [id number] Meter #: [id number] Ordering Provider: LIDIA HUYNH Report Released Date/Time: Jan 08, 2024 05:09 PM Reporting Lab: [address] [address] Performing Lab: [address] [address] GLUCOSE,BLOOD- poct (STL) 95 mg/dL 72-99 Jan 08, 2024 11:26 AM [facility] GLUCOSE,BLOOD-poct (STL) Specimen Type: BLOOD Comment: Test Performed by: [id number] Meter #: [id number] Ordering Provider: LIDIA HUYNH Report Released Date/Time: Jan 08, 2024 11:37 AM Reporting Lab: [address] [address] Performing Lab: [facility] [address] [facility] [address] GLUCOSE,BLOOD- poct (STL) 105 mg/dL H 72-99 Jan 08, 2024 07:01 AM [facility] RENAL PANEL Specimen Type: PLASMA Comment: No hemolysis noted. Ordering Provider: LIZETTE GRIFFIN Report Released Date/Time: Jan 07, 2024 11:24 PM Reporting Lab: [facility] [address] [facility] [address] Performing Lab: [facility] [address] [facility] [address] CREATININE 8.50 mg/dL H 0.7-1.3 UREA NITROGEN 88.2 mg/dL H 9.0-25.0 GLUCOSE 70 mg/dL L 72-99 SODIUM 139 meq/L 136-145 POTASSIUM 5.4 meq/L H 3.5-5 CHLORIDE 110 meq/L H 98-107 CARBON DIOXIDE 19 meq/L L 22-31 CALCIUM 9.4 mg/dL 8.4-10.4 PHOSPHOROUS 5.1 mg/dL H 2.3-4.7 ALBUMIN 3.8 g/dL 3.4-5 EGFR (CKD-EPI 2020) 6.3 LL >60 Jan 08, 2024 06:37 AM [facility] GLUCOSE,BLOOD-poct (STL) Specimen Type: BLOOD Comment: Test Performed by: [id number] Meter #: [id number] Ordering Provider: LIDIA HUYNH Report Released Date/Time: Jan 08, 2024 06:48 AM Reporting Lab: [facility] [address] [address] Performing Lab: [address] [address] GLUCOSE,BLOOD- poct (STL) 86 mg/dL 72-99 Jan 07, 2024 11:58 PM [facility] RENAL PANEL Specimen Type: PLASMA Comment: No hemolysis noted. Ordering Provider: LIZETTE GRIFFIN Report Released Date/Time: Jan 07, 2024 11:38 PM Reporting Lab: [facility] [address] Performing Lab: [address] [address] CREATININE 8.68 mg/dL H 0.7-1.3 UREA NITROGEN 92.6 mg/dL H 9.0-25.0 GLUCOSE 143 mg/dL H 72-99 SODIUM 138 meq/L 136-145 POTASSIUM 5.0 meq/L 3.5-5 CHLORIDE 111 meq/L H 98-107 CARBON DIOXIDE 17 meq/L L 22-31 CALCIUM 8.8 mg/dL 8.4-10.4 PHOSPHOROUS 3.8 mg/dL 2.3-4.7 ALBUMIN 3.8 g/dL 3.4-5 EGFR (CKD-EPI 2020) 6.1 LL >60 Jan 07, 2024 11:36 PM [facility] GLUCOSE,BLOOD-poct (STL) Specimen Type: BLOOD Comment: Test Performed by: [id number] Meter #: [id number] Ordering Provider: LIDIA MOSCSOO Report Released Date/Time: Jan 07, 2024 11:47 PM Reporting Lab: [address] [address] Performing Lab: [address] [address] GLUCOSE,BLOOD- poct (STL) 157 mg/dL H 72-99 Jan 07, 2024 11:30 PM [facility] MRSA SURVL NARES DNA Specimen Type: [...] Jan 07, 2024 11:24 PM Reporting Lab: [address] [address] Performing Lab: [place] [address] [facility] [address] MRSA SURVL NARES DNA Negative Negative Jan 07, 2024 09:08 PM [facility] POTASSIUM Specimen Type: PLASMA Comment: No hemolysis noted. Ordering Provider: ANNA CALI Report Released Date/Time: Jan 07, 2024 08:38 PM Reporting Lab: [place] [address] [place] [address] Performing Lab: [place] [phone] POTASSIUM 5.7 meq/L H 3.5-5 Jan 07, 2024 07:30 PM [facility] URINALYSIS (STL-PB) Specimen Type: URINE No comment entered. Ordering Provider: ANNA CALI Report Released Date/Time: Jan 07, 2024 05:18 PM Reporting Lab: [place] [phone] Performing Lab: [place] [address] [address] [address] URINE COLOR Colorless Yellow U.BILIRUBIN Negative mg/dL [...] 1.015 1.005-1.029 Jan 07, 2024 05:30 PM [facility] BRAIN NATRIURETIC PEPTIDE Specimen Type: PLASMA No comment entered. Ordering Provider: GRACIELA MANN Report Released Date/Time: Jan 07, 2024 04:59 PM Reporting Lab: [address] [address] Performing Lab: [address] [address] BRAIN NATRIURETIC PEPTIDE 59.0 pg/mL 0-100 Jan 07, 2024 05:30 PM [facility] COVID-19 DIAGNOSTIC (FLU/RSV)(STL) Specimen Type: NASOPHARYNX [...] Jan 07, 2024 04:59 PM Reporting Lab: [address] [address] Performing Lab: [address] [address] INFLUENZA A Negative Negative INFLUENZA B Negative Negative COVID-19 (STL-PB) Not Detected Not Detected RSV (Cepheid) NEGATIVE Negative Jan 07, 2024 05:30 PM [facility] COMPREHENSIVE METABOLIC PANEL Specimen Type: PLASMA Comment: Aspartate Transaminase result may show positive bias due to hemolysis. K result canceled due to hemolysis. Specimen moderately hemolyzed. K cancelled due to moderate hemolysis. Called to : Phillip Cee RN at: [id number] on: 01/07/2024 by: TENNILLE Ordering Provider: GRACIELA MANN Report Released Date/Time: Jan 07, 2024 04:59 PM Reporting Lab: [address] [address] Performing Lab: [address] [address] CREATININE 8.88 mg/dL H 0.7-1.3 UREA NITROGEN [...] LL >60 Jan 07, 2024 05:30 PM [facility] CBC Specimen Type: BLOOD No comment entered. Ordering Provider: GRACILEA MANN Report Released Date/Time: Jan 07, 2024 04:59 PM Reporting Lab: [address] [address] Performing Lab: [address] [address] WBC 9.2 10*3/uL 3.6-11.2 RBC 3.81 10*6/uL [...] 01:14 PM ORYX ADMIT TOBACCO SCREEN NO [facility] Tobacco Use History This section includes a history of the smoking, or tobacco-related health factors, that were collected on or before the date of the Encounter. The data comes from the [place] facility where the Encounter took place. Date/Time Smoking Status/Tobacco Use Comment Max acility Dec 12, 2022 04:00 PM ORYX ADMIT TOBACCO SCREEN NO [facility] Jun 25, 2022 03:24 PM VA-TOBACCO FORMER USER [facility] Jun 25, 2022 03:24 PM VA-TOBACCO QUIT 15 YRS OR MORE [facility] Dec 23, 2021 04:59 PM ORYX ADMIT TOBACCO SCREEN REFUSED [facility] May 24, 2020 11:27 PM ORYX ADMIT TOBACCO SCREEN NO [facility] Dec 12, 2019 10:24 AM VA-TOBACCO FORMER USER [facility] Dec 12, 2019 10:24 AM VA-TOBACCO QUIT 15 YRS OR MORE [facility] Aug 03, 2019 02:11 AM ORYX ADMIT TOBACCO SCREEN REFUSED [facility] Oct 12, 2018 01:14 AM QUIT TOBACCO >7 YEARS AGO [facility] Oct 11, 2018 03:33 PM ORYX ADMIT TOBACCO SCREEN NO [facility] Sep 07, 2018 09:13 PM ORYX ADMIT TOBACCO SCREEN NO [facility] Sep 07, 2018 07:52 PM QUIT TOBACCO >7 YEARS AGO [facility] Advance Directives: All historical and current [...] 17, 2022 ADVANCE DIRECTIVE SHAINABIJAN B S Brigitte [facility] Feb 09, 2020 ADVANCE DIRECTIVE DISCUSSION MELY LUCIANO [facility] Feb 02, 2018 ADVANCE DIRECTIVE BEAU ALTAMIRANO [facility] Nov 29, 2006 ADVANCE DIRECTIVE CHACONMARELY [facility] Radiology Reports: +/- 30 days of [...] 2024 08:01 PM CHEST PORTABLE: NAGI KATZ [id number] -[id number] M Exm Date: JAN 07, 2024@20:01 Req Phys: ANNA CALI Loc: -EMERGENCY DEPT 3RD SHIFT (R Img Loc: -MAIN RADIOLOGY SUITE Service: Unknown (Case [id number] COMPLETE) CHEST PORTABLE (RAD Detailed) CPT:34504 Proc Modifiers : Portable Reason for Study: weakness, ESRD Clinical History: Report Status: Verified Date Reported: JAN 07, 2024 Date Verified: JAN 07, 2024 Appliance Technician E-Sig: Report: CHEST PORTABLE HISTORY: weakness, ESRD [...] No pneumothorax. READING PHYSICIAN: Madhu Patton M.D. -[phone] 01/07/2024 19:10 PDT [facility] National Teleradiology Program [phone] (For Medical Practitioner Use Only) Attention Patients / Veterans: If you have questions or concerns about these test results, please contact your ordering provider or primary care team. Primary Interpreting Staff: RADIOLOGY,OUTSIDE SERVICE, Staff Physician / RADIOLOGY,OUTSIDE SERVICE [facility] Encounter Notes: All associated encounter notes This section contains the clinical notes associated to the Encounter. Date/Time Encounter Note(s) Provider Source Jan 14, 2024 06:27 PM DIALYSIS NURSING N OTE: LOCAL TITLE: DIALYSIS NURSING NOTE STANDARD TITLE: DIALYSIS NURSING NOTE DATE OF NOTE: JAN 14, 2024@18:27 ENTRY DATE: JAN 14, 2024@18:27:19 AUTHOR: AMAN TALAVERA EXP COSIGNER: URGENCY: STATUS: COMPLETED PATIENT ARRIVED TO HD A&OX3.BP 165/69, HR 65, R 18, WEIGHT 102.1KG, TEMP 97.1 PT REPORTS PAIN RATED AT A 6 AT ACCESS SITE, VIRGIE FISTULA. UPON ASSESSMENT, ACCESS SITE WAS BRUISED, WARM TO TOUCH AND SWOLLEN FROM PREVIOUS INFILTRATION. THRILL AND BRUIT PRESENT. PT VOICED CONCERNS AND ANXIETY REGARDING PAIN DURING CANNULATION, HE STATES LIDOCAINE TOPICAL OINTMENT WAS NOT EFFECTIVE FOR HIM. HE ALSO REQUESTED TO SPEAK TO SHAKER OPERATOR KASEY. LABS DRAWN PER SHAKER OPERATOR REQUEST. DUE TO LAB RESULTS SHAKER OPERATOR DISCHARGED PT HOME. EDUCATION PROVIDED. PT STATES UNDERSTANDING. /edwar/ BUFFY BLANTON, RN REGISTERED NURSE Signed: 01/14/2024 18:37 AMAN TALAVERA [facility] Jan 14, 2024 05:48 PM DIALYSIS NURSING N OTE: LOCAL TITLE: DIALYSIS NOTE STANDARD TITLE: DIALYSIS NURSING NOTE DATE OF NOTE: JAN 14, 2024@17:48 ENTRY DATE: JAN 14, 2024@17:48:03 AUTHOR: MARTHA PURCELL EXP COSIGNER: URGENCY: STATUS: COMPLETED Weekly Dialysis Rounding Note: 68yo with esrd here for day 3 of dialysis initiation. Spruce was initiated in the acute setting on January 07. He recieved dialysis on January 07 and . I was told his fistula infiltrated on the , and did not have a successful cannulation ThursdayJanuary 10. was discharged home January 10, was instructed to come for dialysis yesterday but he did not come because his arm was still very tender. He was here for dialysis this afternoon but complained of his fistula being very tender and wanting to have it rested for a few days. He denied nausea, vomiting, change in taste of food or appetite. No swelling and still makes significant amount of urine. His labs was relatively stable. was instructed to take potassium binder every other day till Thursday and to return for dialysis next week Thursday. He was also instructed to report to ED if he has any uremic symptoms - nausea, vomiting, etc. He verbalized understanding of instruction. I noted that his bp was elevated while here earlier on today (called assigned nurse for vitals). Called placed this evening to who said he was not checking bp lately at home but will start checking . He attributed elevated bp to pain in his fistula arm. Lab Data Renal Function Panel: SODIUM 140 mEq/L 01/14/2024 11:55 POTASSIUM 5.1 H mEq/L 01/14/2024 11:55 CHLORIDE 107 mEq/L 01/14/2024 11:55 UREA NITROGEN 70.7 H mg/dL 01/14/2024 11:55 CREATININE 8.05 H mg/dL 01/14/2024 11:55 CALCIUM 9.6 mg/dL 01/14/2024 11:55 CARBON DIOXIDE 21 L mEq/L 01/14/2024 11:55 GLUCOSE 155 H mg/dL 01/14/2024 11:55 EGFR (CKD-EPI 2020) 6.7 L* 01/14/2024 11:55 ALBUMIN 4.1 g/dL 01/14/2024 11:55 PHOSPHOROUS 4.8 H mg/dL 01/14/2024 11:55 Vital signs: bp 165/69, hr 65, resp 18, weight 102.1 kg (with shoes) Exam: Lungs CTAB, RRR, s1s2, abd soft, +BS, no edema Access - Avf with +thrill and bruit, swelling and bruising noted.. Access: LUE AVF +thrill, +bruit, aneurysmal dilatation, left arm mild edema A/P:pt w ESRD currently undergoing dialysis initiation, had 2 dialysis sessions last week. Avf infiltrated this past Thursday, here for 3rd dialysis session but requested to rest fistula for few more days. (Fistula was placed more than a year ago - december 09, 2022), avf duplex done March 2023, vascular surgery gave okay to use fistula Sep 17, 2023. denied uremic symptoms, no lower ext edema, no urgent indication for dialysis, will allow fistula to rest for few days and resume cannulation/dialysis sessions next week will consider fistulogram if avf cannulation unsuccessful next dialysis session. acknowledged having patiromer at home for use, he was instructed to take 8.4gm every other day starting today till Thursday - potassium 5.1 today instructed to increase sodium bicarb to 7 tablets daily - bicarb 21 on labs drawn today. counselled on renal diet instructed to apply ice alternating with warm compress to avf 2-3x/day till Thursday. plan is to keep patient here during avf cannulation protocol - about 3 weeks He will transition to the community once avf cannulation protocol is completed Renal clinical social services assistant aware. was discussed with dr. Trejo. #bp/edema bp not at goal in clinic today, no edema will continue current bp regimen and follow up on bp readings. Will continue to follow weekly. /edwar/ KIMBERLY PURCELL APRN [employer]IN [employer] SEWER- NURSE PRACTITIONER Signed: 01/14/2024 18:23 Receipt Acknowledged By: 01/15/2024 15:44 /edwar/ MERY TREJO MD STAFF PHYSICIAN,NEPHROLOGY BRYAN PURCELL [facility]
--- OUTSIDE RECORDS SUMMARY | 2024-12-05 00:25 | XMS_ITS | Clinical Summary ---
Author Organization [facility] Address [facility] [place] [address] Care Team Providers Care Colon And Rectal Surgeon Name Role Phone Una Moody FUNMI Primary Care Provider [phone] Allergies No known active allergies Medications aspirin [...] on file Legal Sex Male 12:47 PM TERMINAL MANAGER Gender Identity Not on file Sexual Orientation Not on file Last Filed Vital Signs Vital Sign Reading Time Taken Comments Blood Pressure 149/89 10/25/2018 5:24 PM TERMINAL MANAGER Pulse 60 10/25/2018 5:24 PM TERMINAL MANAGER Temperature 36.6 C (97.8 F) 10/25/2018 1:03 PM TERMINAL MANAGER Respiratory Rate 20 10/25/2018 5:24 PM TERMINAL MANAGER Oxygen Saturation 98% 10/25/2018 5:24 PM TERMINAL MANAGER Inhaled Oxygen Concentration - - Weight 92.3 kg (203 lb 7.8 oz) 10/25/2018 1:03 P M TERMINAL MANAGER Height 175.3 cm (5' 9 ) 10/25/2018 1:03 PM TERMINAL MANAGER Body Mass Index 30.05 10/25/2018 1:03 PM TERMINAL MANAGER Plan of Treatment Health Maintenance Due Date [...] age to complete this topic Care Teams Colon And Rectal Surgeon Relationship Specialty Start Date End Date Una Moody NP [address] [facility] [address] PCP - General NURSE PRACTITIONER 10/25/18
--- OUTSIDE RECORDS SUMMARY | 2024-12-05 00:25 | XMS_ITS | Encounter Summary ---
Author Name [facility] [place] [facility] [facility] [place] Address [address] [place] [address] Care Team Providers Care Logistics Management Specialist Name Role Phone ERIKA DEE Primary [...] PART A Jul 12, 2019 PART A [id number] PRASANNA KATZ PATIENT MEDICARE (WNR) MEDICARE (M) PART A Jul 12, 2019 PART A [id number] PRASANNA KATZ PATIENT Selected Encounter This section includes the information on record at [place] for the Encounter. Date/Time Encounter Type Encounter Description Reason Provider Source Dec 28, 2023 03:40 PM Outpatient Encounter [facility]UNITY CARE CONSULT MIHAI ARNOLD Encounter Template Text not used by VA [...] 20 appointments. The data comes from all [facility] facilities. Appointment Date/Time Appointment Type Appointme nt Facility Name Jan 07, 2024 04:48 PM AMBULATORY - MEDICINE [facility] Jan 12, 2024 10:30 AM AMBULATORY - MEDICINE [facility] Jan 21, 2024 12:30 PM AMBULATORY - MEDICINE [facility] Jan 23, 2024 12:30 PM AMBULATORY - MEDICINE [facility] Jan 25, 2024 02:30 PM AMBULATORY - MEDICINE [facility] Jan 26, 2024 12:30 PM AMBULATORY - MEDICINE [facility] Jan 28, 2024 12:30 PM AMBULATORY - MEDICINE [facility] Feb 02, 2024 12:30 PM AMBULATORY - MEDICINE [facility] Feb 04, 2024 12:15 PM AMBULATORY - MEDICINE [facility] Feb 06, 2024 12:30 PM AMBULATORY - MEDICINE [facility] Feb 09, 2024 12:30 PM AMBULATORY - MEDICINE [facility] February 11, 2024 12:30 PM AMBULATORY - MEDICINE [facility] February 13, 2024 12:30 PM AMBULATORY - MEDICINE [facility] February 15, 2024 08:00 AM AMBULATORY - NONE [facility] February 15, 2024 08:30 AM AMBULATORY - MEDICINE [facility] Apr 05, 2024 09:30 AM AMBULATORY - MEDICINE [facility] Apr 27, 2024 07:30 AM AMBULATORY - SURGERY [facility] May 02, 2024 08:00 AM AMBULATORY - NONE [facility] May 02, 2024 08:30 AM AMBULATORY - MEDICINE [facility] May 16, 2024 02:00 PM AMBULATORY - MEDICINE [facility] Lab Results: +/- 30 days of [...] - Unit Interpretation Reference Range Comment Jan 26, 2024 01:00 PM [facility] PTH, INTACT (STL) Specimen Type: SERUM No comment entered. Ordering Provider: KYLER PURCELL Report Released Date/Time: Jan 21, 2024 03:14 PM Reporting Lab: [address] [address] Performing Lab: [address] [address] PTH, INTACT (STL) 141.40 pg/mL H 8.7-77.7 Jan 26, 2024 01:00 PM [facility] IRON/TIBC PROFILE Specimen Type: SERUM No comment entered. Ordering Provider: KYLER PURCELL Report Released Date/Time: Jan 21, 2024 03:14 PM Reporting Lab: [address] [address] Performing Lab: [address] [address] TIBC 225 ug/dL L 250-450 TRANSFERRIN 180 mg/dL 163-344 IRON SATURATION 23 20-50 IRON 52 ug/dL L 65-175 Jan 26, 2024 01:00 PM [facility] FERRITIN Specimen Type: SERUM No comment entered. Ordering Provider: KYLER PURCELL Report Released Date/Time: Jan 21, 2024 03:14 PM Reporting Lab: [facility] [address] [facility] [address] Performing Lab: [address] [address] FERRITIN 118.78 ng/mL 22-275 Jan 26, 2024 01:00 PM [facility] RENAL PANEL Specimen Type: PLASMA Comment: No hemolysis noted. Ordering Provider: KYLER PURCELL Report Released Date/Time: Jan 21, 2024 03:14 PM Reporting Lab: [address] [address] Performing Lab: [address] [address] CREATININE 8.25 mg/dL H 0.7-1.3 UREA NITROGEN 63.1 mg/dL H 9.0-25.0 GLUCOSE 157 mg/dL H 72-99 SODIUM 137 meq/L 136-145 POTASSIUM 4.2 meq/L 3.5-5 CHLORIDE 100 meq/L 98-107 CARBON DIOXIDE 26 meq/L 22-31 CALCIUM 9.6 mg/dL 8.4-10.4 PHOSPHOROUS 4.9 mg/dL H 2.3-4.7 ALBUMIN 3.7 g/dL 3.4-5 EGFR (CKD-EPI 2020) 6.5 LL >60 Jan 26, 2024 01:00 PM [facility] CBC Specimen Type: BLOOD No comment entered. Ordering Provider: KYLER PURCELL Report Released Date/Time: Jan 21, 2024 03:14 PM Reporting Lab: [address] [address] Performing Lab: [address] [address] WBC 7.8 10*3/uL 3.6-11.2 RBC 2.95 10*6/uL [...] 10*3/uL 0.00-0.20 Jan 21, 2024 12:55 PM [facility] PT/INR NEW ([facility]) Specimen Type: PLASMA No comment entered. Ordering Provider: KYLER PURCELL Report Released Date/Time: Jan 21, 2024 12:43 PM Reporting Lab: [address] [address] Performing Lab: [address] [address] PROTIME 15.9 s H 9.4-12.5 INR VALUE 1.4 {INR} Jan 21, 2024 12:55 PM [facility] RENAL PANEL Specimen Type: PLASMA Comment: No hemolysis noted. Ordering Provider: KYLER PURCELL Report Released Date/Time: Jan 21, 2024 12:41 PM Reporting Lab: [address] [address] Performing Lab: [address] [address] CREATININE 8.11 mg/dL H 0.7-1.3 UREA NITROGEN 82.6 mg/dL H 9.0-25.0 GLUCOSE 114 mg/dL H 72-99 SODIUM 139 meq/L 136-145 POTASSIUM 5.1 meq/L H 3.5-5 CHLORIDE 109 meq/L H 98-107 CARBON DIOXIDE 19 meq/L L 22-31 CALCIUM 9.3 mg/dL 8.4-10.4 PHOSPHOROUS 4.1 mg/dL 2.3-4.7 ALBUMIN 3.8 g/dL 3.4-5 EGFR (CKD-EPI 2020) 6.6 LL >60 Jan 14, 2024 11:55 AM [facility] RENAL PANEL Specimen Type: PLASMA Comment: No hemolysis noted. Ordering Provider: KYLER PURCELL Report Released Date/Time: Jan 13, 2024 07:58 AM Reporting Lab: [address] [address] Performing Lab: [address] [address] CREATININE 8.05 mg/dL H 0.7-1.3 UREA NITROGEN 70.7 mg/dL H 9.0-25.0 GLUCOSE 155 mg/dL H 72-99 SODIUM 140 meq/L 136-145 POTASSIUM 5.1 meq/L H 3.5-5 CHLORIDE 107 meq/L 98-107 CARBON DIOXIDE 21 meq/L L 22-31 CALCIUM 9.6 mg/dL 8.4-10.4 PHOSPHOROUS 4.8 mg/dL H 2.3-4.7 ALBUMIN 4.1 g/dL 3.4-5 EGFR (CKD-EPI 2020) 6.7 LL >60 Jan 11, 2024 11:36 AM [facility] GLUCOSE,BLOOD-poct (STL) Specimen Type: BLOOD Comment: Test Performed by: [id number] Meter #: [id number] Ordering Provider: LIDIA HUYNH Report Released Date/Time: Jan 11, 2024 11:50 AM Reporting Lab: [address] [address] Performing Lab: [address] [address] GLUCOSE,BLOOD- poct (STL) 106 mg/dL H 72-99 Jan 11, 2024 11:07 AM [facility] GLUCOSE,BLOOD-poct (STL) Specimen Type: BLOOD Comment: Test Performed by: [id number] Meter #: [id number] Ordering Provider: LIDIA HUYNH Report Released Date/Time: Jan 11, 2024 11:18 AM Reporting Lab: [address] [address] Performing Lab: [address] [address] GLUCOSE,BLOOD- poct (STL) 109 mg/dL H 72-Jan 11, 2024 05:12 AM [facility] GLUCOSE,BLOOD-poct (STL) Specimen Type: BLOOD Comment: Test Performed by: [id number] Meter #: [id number] Ordering Provider: LIDIA HUYNH Report Released Date/Time: Jan 11, 2024 05:25 AM Reporting Lab: [place] [address] [facility] [address] Performing Lab: [address] [address] GLUCOSE,BLOOD- poct (STL) 88 mg/dL -Jan 10, 2024 08:19 PM [facility] GLUCOSE,BLOOD-poct (STL) Specimen Type: BLOOD Comment: Test Performed by: [id number] Meter #: [id number] Ordering Provider: LIDIA HUYNH Report Released Date/Time: Jan 10, 2024 08:31 PM Reporting Lab: [address] [address] Performing Lab: [address] [address] GLUCOSE,BLOOD- poct (STL) 153 mg/dL H -Jan 10, 2024 04:15 PM [facility] GLUCOSE,BLOOD-poct (STL) Specimen Type: BLOOD Comment: Test Performed by: [id number] Meter #: [id number] Ordering Provider: LIDIA HUYNH Report Released Date/Time: Jan 10, 2024 05:05 PM Reporting Lab: [address] [address] Performing Lab: [address] [address] GLUCOSE,BLOOD- poct (STL) 84 mg/dL -Jan 10, 2024 11:31 AM [facility] GLUCOSE,BLOOD-poct (STL) Specimen Type: BLOOD Comment: Test Performed by: [id number] Meter #: [id number] Ordering Provider: LINOMED Report Released Date/Time: Jan 10, 2024 12:03 PM Reporting Lab: [place] [address] [facility] [address] Performing Lab: [place] [address] [facility] [address] GLUCOSE,BLOOD- poct (STL) 99 mg/dL 72-99 Jan 10, 2024 04:45 AM [facility] GLUCOSE,BLOOD-poct (STL) Specimen Type: BLOOD Comment: Test Performed by: [id number] Meter #: [id number] Ordering Provider: LINO,MED Report Released Date/Time: Jan 10, 2024 05:29 AM Reporting Lab: [place] [address] [facility] [address] Performing Lab: [address] [address] GLUCOSE,BLOOD- poct (STL) 109 mg/dL H 72-99 Jan 09, 2024 08:08 PM [facility] GLUCOSE,BLOOD-poct (STL) Specimen Type: BLOOD Comment: Test Performed by: [id number] Meter #: [id number] Ordering Provider: LIDIA HUYNH Report Released Date/Time: Jan 09, 2024 08:28 PM Reporting Lab: [place] [address] [facility] [address] Performing Lab: [place] [address] [facility] [address] GLUCOSE,BLOOD- poct (STL) 110 mg/dL H 72-99 Jan 09, 2024 04:19 PM [facility] GLUCOSE,BLOOD-poct (STL) Specimen Type: BLOOD Comment: Test Performed by: [id number] Meter #: [id number] Ordering Provider: LIDIA HUYNH Report Released Date/Time: Jan 09, 2024 04:34 PM Reporting Lab: [address] [address] Performing Lab: [place] [address] [facility] [address] GLUCOSE,BLOOD- poct (STL) 119 mg/dL H 72-99 Jan 09, 2024 02:30 PM [facility] MAGNESIUM Specimen Type: PLASMA Comment: No hemolysis noted. Ordering Provider: TATI ZAVALA Report Released Date/Time: Jan 09, 2024 07:51 AM Reporting Lab: [facility] [address] [facility] [address] Performing Lab: [address] [address] MAGNESIUM 1.6 mg/dL 1.6-2.6 Jan 09, 2024 02:30 PM [facility] RENAL PANEL Specimen Type: PLASMA Comment: No hemolysis noted. Ordering Provider: TATI ZAVALA Report Released Date/Time: Jan 09, 2024 07:51 AM Reporting Lab: [address] [address] Performing Lab: [address] [address] CREATININE 5.13 mg/dL H 0.7-1.3 UREA NITROGEN 46.2 mg/dL H 9.0-25.0 GLUCOSE 177 mg/dL H 72-99 SODIUM 136 meq/L 136-145 POTASSIUM 4.0 meq/L 3.5-5 CHLORIDE 101 meq/L 98-107 CARBON DIOXIDE 23 meq/L 22-31 CALCIUM 8.6 mg/dL 8.4-10.4 PHOSPHOROUS 2.7 mg/dL 2.3-4.7 ALBUMIN 3.6 g/dL 3.4-5 EGFR (CKD-EPI 2020) 11.5 LL >60 Jan 09, 2024 12:27 PM [facility] GLUCOSE,BLOOD-poct (STL) Specimen Type: BLOOD Comment: Test Performed by: [id number] Meter #: [id number] Ordering Provider: LIDIA HUYNH Report Released Date/Time: Jan 09, 2024 12:38 PM Reporting Lab: [address] [address] Performing Lab: [address] [address] GLUCOSE,BLOOD- poct (STL) 98 mg/dL 72-99 Jan 09, 2024 07:15 AM [facility] GLUCOSE,BLOOD-poct (STL) Specimen Type: BLOOD Comment: Test Performed by: [id number] Meter #: [id number] Ordering Provider: LIDIA HUYNH Report Released Date/Time: Jan 09, 2024 07:58 AM Reporting Lab: [place] [address] [facility] [address] Performing Lab: [place] [address] [facility] [address] GLUCOSE,BLOOD- poct (STL) 86 mg/dL -Jan 08, 2024 09:04 PM [facility] GLUCOSE,BLOOD-poct (STL) Specimen Type: BLOOD Comment: Test Performed by: [id number] Meter #: [id number] Ordering Provider: LIDIA HUYNH Report Released Date/Time: Jan 08, 2024 09:47 PM Reporting Lab: [place] [address] [facility] [address] Performing Lab: [place] [address] [facility] [address] GLUCOSE,BLOOD- poct (STL) 90 mg/dL 72-Jan 08, 2024 09:01 PM [facility] HEP B CORE AB TOTAL. (STL) Specimen Type: SERUM No comment entered. Ordering Provider: EFREN TAYLOR Report Released Date/Time: Jan 08, 2024 02:35 PM Reporting Lab: [place] [address] [facility] [address] Performing Lab: [place] [address] [facility] [address] HEP B CORE AB TOTAL. (STL) Nonreactive Nonreactive Jan 08, 2024 09:01 PM [facility] HEP HB S Ag (A[place]RI[place]) (STL) Specimen Type: SERUM No comment entered. Ordering Provider: EFREN TAYLOR Report Released Date/Time: Jan 08, 2024 02:35 PM Reporting Lab: [place] [address] [facility] [address] Performing Lab: [address] [address] HEP HB S Ag ([place]) (L) Nonreactive Nonreactive Jan 08, 2024 09:01 PM [facility] HEPATITIS B SURFACE AB PNL Specimen Type: SERUM No comment entered. Ordering Provider: EFREN TAYLOR Report Released Date/Time: Jan 08, 2024 02:35 PM Reporting Lab: [place] [address] [facility] [address] Performing Lab: [address] [address] HEP B Surface Ab-HBsAB (L) REACTIVE m[IU]/mL Nonreactive HEP Bs AB-QUANT (L) 63.22 m[IU]/mL Jan 08, 2024 04:47 PM [facility] GLUCOSE,BLOOD-poct (L) Specimen Type: BLOOD Comment: Test Performed by: [id number] Meter #: [id number] Ordering Provider: LIDIA HUYNH Report Released Date/Time: Jan 08, 2024 05:09 PM Reporting Lab: [address] [address] Performing Lab: [address] [address] GLUCOSE,BLOOD- poct (STL) 95 mg/dL 72-99 Jan 08, 2024 11:26 AM [facility] GLUCOSE,BLOOD-poct (STL) Specimen Type: BLOOD Comment: Test Performed by: [id number] Meter #: [id number] Ordering Provider: LIDIA HUYNH Report Released Date/Time: Jan 08, 2024 11:37 AM Reporting Lab: [address] [address] Performing Lab: [address] [address] GLUCOSE,BLOOD- poct (STL) 105 mg/dL H 72-99 Jan 08, 2024 07:01 AM [facility] RENAL PANEL Specimen Type: PLASMA Comment: No hemolysis noted. Ordering Provider: LIZETTE GRIFFIN Report Released Date/Time: Jan 07, 2024 11:24 PM Reporting Lab: [facility] [address] [facility] [address] Performing Lab: [address] [address] CREATININE 8.50 mg/dL H 0.7-1.3 UREA NITROGEN 88.2 mg/dL H 9.0-25.0 GLUCOSE 70 mg/dL L 72-99 SODIUM 139 meq/L 136-145 POTASSIUM 5.4 meq/L H 3.5-5 CHLORIDE 110 meq/L H 98-107 CARBON DIOXIDE 19 meq/L L 22-31 CALCIUM 9.4 mg/dL 8.4-10.4 PHOSPHOROUS 5.1 mg/dL H 2.3-4.7 ALBUMIN 3.8 g/dL 3.4-5 EGFR (CKD-EPI 2020) 6.3 LL >60 Jan 08, 2024 06:37 AM [facility] GLUCOSE,BLOOD-poct (STL) Specimen Type: BLOOD Comment: Test Performed by: [id number] Meter #: [id number] Ordering Provider: LIDIA HUYNH Report Released Date/Time: Jan 08, 2024 06:48 AM Reporting Lab: [address] [address] Performing Lab: [address] [address] GLUCOSE,BLOOD- poct (STL) 86 mg/dL 72-99 Jan 07, 2024 11:58 PM [facility] RENAL PANEL Specimen Type: PLASMA Comment: No hemolysis noted. Ordering Provider: LIZETTE GRIFFIN Report Released Date/Time: Jan 07, 2024 11:38 PM Reporting Lab: [address] [address] Performing Lab: [address] [address] CREATININE 8.68 mg/dL H 0.7-1.3 UREA NITROGEN 92.6 mg/dL H 9.0-25.0 GLUCOSE 143 mg/dL H 72-99 SODIUM 138 meq/L 136-145 POTASSIUM 5.0 meq/L 3.5-5 CHLORIDE 111 meq/L H 98-107 CARBON DIOXIDE 17 meq/L L 22-31 CALCIUM 8.8 mg/dL 8.4-10.4 PHOSPHOROUS 3.8 mg/dL 2.3-4.7 ALBUMIN 3.8 g/dL 3.4-5 EGFR (CKD-EPI 2020) 6.1 LL >60 Jan 07, 2024 11:36 PM [facility] GLUCOSE,BLOOD-poct (STL) Specimen Type: BLOOD Comment: Test Performed by: [id number] Meter #: [id number] Ordering Provider: LIDIA MOSCOSO Report Released Date/Time: Jan 07, 2024 11:47 PM Reporting Lab: [address] [address] Performing Lab: [address] [address] GLUCOSE,BLOOD- poct (STL) 157 mg/dL H 72-99 Jan 07, 2024 11:30 PM [facility] MRSA SURVL NARES DNA Specimen Type: [...] Jan 07, 2024 11:24 PM Reporting Lab: [address] [address] Performing Lab: [address] [address] MRSA SURVL NARES DNA Negative Negative Jan 07, 2024 09:08 PM [facility] POTASSIUM Specimen Type: PLASMA Comment: No hemolysis noted. Ordering Provider: ANNA CALI Report Released Date/Time: Jan 07, 2024 08:38 PM Reporting Lab: [facility] [address] [place] [address] Performing Lab: [place] [phone] POTASSIUM 5.7 meq/L H 3.5-5 Jan 07, 2024 07:30 PM [facility] URINALYSIS (STL-PB) Specimen Type: URINE No comment entered. Ordering Provider: ANNA CALI Report Released Date/Time: Jan 07, 2024 05:18 PM Reporting Lab: [address] [address] Performing Lab: [address] [address] URINE COLOR Colorless Yellow U.BILIRUBIN Negative mg/dL [...] 1.015 1.005-1.029 Jan 07, 2024 05:30 PM [facility] BRAIN NATRIURETIC PEPTIDE Specimen Type: PLASMA No comment entered. Ordering Provider: GRACIELA MANN Report Released Date/Time: Jan 07, 2024 04:59 PM Reporting Lab: [place] [phone] Performing Lab: [address] [address] BRAIN NATRIURETIC PEPTIDE 59.0 pg/mL 0-100 Jan 07, 2024 05:30 PM [facility] COVID-19 DIAGNOSTIC (FLU/RSV)(STL) Specimen Type: NASOPHARYNX [...] Jan 07, 2024 04:59 PM Reporting Lab: [address] [address] Performing Lab: [address] [address] INFLUENZA A Negative Negative INFLUENZA B Negative Negative COVID-19 (STL-PB) Not Detected Not Detected RSV (Cepheid) NEGATIVE Negative Jan 07, 2024 05:30 PM [facility] COMPREHENSIVE METABOLIC PANEL Specimen Type: PLASMA Comment: Aspartate Transaminase result may show positive bias due to hemolysis. K result canceled due to hemolysis. Specimen moderately hemolyzed. K cancelled due to moderate hemolysis. Called to : Phillip Cee RN at: 2026 on: 01/07/2024 by: TENNILLE Ordering Provider: GRACIELA MANN Report Released Date/Time: Jan 07, 2024 04:59 PM Reporting Lab: [address] [address] Performing Lab: [address] [address] CREATININE 8.88 mg/dL H 0.7-1.3 UREA NITROGEN [...] LL >60 Jan 07, 2024 05:30 PM [facility] CBC Specimen Type: BLOOD No comment entered. Ordering Provider: GRACIELA MANN Report Released Date/Time: Jan 07, 2024 04:59 PM Reporting Lab: [address] [address] Performing Lab: [address] [address] WBC 9.2 10*3/uL 3.6-11.2 RBC 3.81 10*6/uL [...] 10*3/uL 0.00-0.20 Dec 11, 2023 12:02 PM [facility] PTH, INTACT (STL) Specimen Type: SERUM No comment entered. Ordering Provider: KYLER PURCELL Report Released Date/Time: Dec 10, 2023 03:57 PM Reporting Lab: [address] [address] Performing Lab: [address] [address] PTH, INTACT (STL) 527.70 pg/mL H 8.7-77.7 Dec 11, 2023 12:02 PM [facility] RENAL PANEL Specimen Type: PLASMA Comment: No hemolysis noted. Ordering Provider: KYLER PURCELL Report Released Date/Time: Dec 10, 2023 03:57 PM Reporting Lab: [address] [address] Performing Lab: [address] [address] CREATININE 8.13 mg/dL H 0.7-1.3 UREA NITROGEN 69.9 mg/dL H 9.0-25.0 GLUCOSE 163 mg/dL H 72-99 SODIUM 140 meq/L 136-145 POTASSIUM 5.4 meq/L H 3.5-5 CHLORIDE 106 meq/L 98-107 CARBON DIOXIDE 22 meq/L 22-31 CALCIUM 8.6 mg/dL 8.4-10.4 PHOSPHOROUS 3.7 mg/dL 2.3-4.7 ALBUMIN 3.9 g/dL 3.4-5 EGFR (CKD-EPI 2020) 6.6 LL >60 Dec 11, 2023 12:02 PM [facility] CBC Specimen Type: BLOOD No comment entered. Ordering Provider: KYLER PURCELL Report Released Date/Time: Dec 10, 2023 03:57 PM Reporting Lab: [address] [address] Performing Lab: [address] [address] WBC 8.4 10*3/uL 3.6-11.2 RBC 3.84 10*6/uL [...] 10*3/uL 0.00-0.20 Dec 11, 2023 12:02 PM [facility] MAGNESIUM Specimen Type: PLASMA No comment entered. Ordering Provider: KYLER PURCELL Report Released Date/Time: Dec 11, 2023 10:17 AM Reporting Lab: [facility] [address] [facility] [address] Performing Lab: [place] [address] [facility] [address] MAGNESIUM 1.3 mg/dL L 1.6-2.6 Social History: Smoking Status (Most current) and Tobacco Use (All prior to encounter date) This section includes the most current, and the historical, smoking and tobacco- related health factors from the [facility] where the Encounter took place. Current Smoking Status This section includes the most current smoking, or tobacco-related health factor, from the [place] facility where the Encounter took place. Date/Time Current Smoking Status Comment Ester itcamila Jun 21, 2023 01:14 PM [facility]YX ADMIT TOBACCO SCREEN NO [facility] Tobacco Use History This section includes a history of the smoking, or tobacco-related health factors, that were collected on or before the date of the Encounter. The data comes from the [place] facility where the Encounter took place. Date/Time Smoking Status/Tobacco Use Comment F acility Dec 12, 2022 04:00 PM ORYX ADMIT TOBACCO SCREEN NO [facility] Jun 25, 2022 03:24 PM VA-TOBACCO FORMER USER [facility] Jun 25, 2022 03:24 PM VA-TOBACCO QUIT 15 YRS OR MORE [facility] Dec 23, 2021 04:59 PM ORYX ADMIT TOBACCO SCREEN REFUSED [facility] May 24, 2020 11:27 PM ORYX ADMIT TOBACCO SCREEN NO [facility] Dec 12, 2019 10:24 AM VA-TOBACCO FORMER USER [facility] Dec 12, 2019 10:24 AM VA-TOBACCO QUIT 15 YRS OR MORE [facility] Aug 03, 2019 02:11 AM ORYX ADMIT TOBACCO SCREEN REFUSED [facility] Oct 12, 2018 01:14 AM QUIT TOBACCO >7 YEARS AGO [facility] Oct 11, 2018 03:33 PM ORYX ADMIT TOBACCO SCREEN NO [facility] Sep 07, 2018 09:13 PM ORYX ADMIT TOBACCO SCREEN NO [facility] Sep 07, 2018 07:52 PM QUIT TOBACCO >7 YEARS AGO [facility] Advance Directives: All historical and current [...] Dec 17, 2022 ADVANCE DIRECTIVE BIJAN MERRITT [facility] Feb 09, 2020 ADVANCE DIRECTIVE DISCUSSION MELY LUCIANO [facility] Feb 02, 2018 ADVANCE DIRECTIVE BEAU ALTAMIRANO [facility] Nov 29, 2006 ADVANCE DIRECTIVE MARELY CHACON [facility] Radiology Reports: +/- 30 days of [...] the Encounter. The data comes from all [place] treatment facilities. Date/Time Radiology Report Provider Source Jan 07, 2024 08:01 PM CHEST PORTABLE: NAGI KATZ [id number] -[id number] M Exm Date: JAN 07, 2024@20:01 Req Phys: ANNA CALI Loc: -EMERGENCY DEPT 3RD SHIFT (R Img Loc: -MAIN RADIOLOGY SUITE Service: Unknown (Case [id number] COMPLETE) CHEST PORTABLE (RAD Detailed) CPT:61961 Proc Modifiers : Portable Reason for Study: weakness, ESRD Clinical History: Report Status: Verified Date Reported: JAN 07, 2024 Date Verified: JAN 07, 2024 High Voltage Electrician E-Sig: Report: CHEST PORTABLE HISTORY: weakness, ESRD COMPARISON: July 26, 2023 TECHNIQUE: One view of the chest [facility]. images were received by the [place] [employer] [facility] ([facility]) for interpretation. FINDINGS: Bilateral peribronchial thickening. Patchy bilateral lower lobe lung opacities. Mildly tortuous aorta. No acute bony abnormalities. Impression: 1. Bilateral peribronchial thickening. 2. Patchy bilateral lung opacities likely represent atelectasis. 3. No pneumothorax. READING PHYSICIAN: Madhu Patton M.D. -[id number] 01/07/2024 19:10 PDT [facility] National [facility] Program [phone] (For Medical Practitioner Use Only) Attention Patients [...] Encounter. Date/Time Encounter Note(s) Provider Source Dec 28, 2023 03:41 PM NONVA NOTE: LOCAL TITLE: COMMUNITY CARE-CARE COORDINATION PLAN NOTE 6[address] STANDARD TITLE: NONVA NOTE DATE OF NOTE: DEC 28, 2023@15:41 ENTRY DATE: DEC 28, 2023@15:41:08 AUTHOR: MIHAI ARNOLD EXP COSIGNER: URGENCY: STATUS: COMPLETED Community Care Consult: Transplant Waitlisting Consult No: [id number] Referral #: [id number] Community Provider or Hospital Information Community Provider Information Provider [facility]: [facility] [facility] Transplant Team Provider Address: City: [facility] State: [place] Provider Provider Provider Email: Chief Complaint: Pt was activated on the kidney tranplant list at [facility] as of 12/10/2023. Patient Admitted? No Level of Care Coordination Complex/Chronic Care Coordination was determined from: Chart Review Facility Community Care Office Contact Care Coordination Point of Contact: Mihai Arnold Services: Moderate Care Coordination Services Case Management, if appropriate Direct communications with interdisciplinary team Plan: referral packet faxed to [facility] Transplant Team: Mo Aquino /edwar/ MIHAI ARNOLD MSN RN REGISTERED NURSE Signed: 12/28/2023 15:43 MIHAI ARNOLD [facility]
--- OUTSIDE RECORDS SUMMARY | 2024-12-05 00:25 | XMS_ITS | Encounter Summary ---
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 Date/Time Encounter Type Encounter Description Reason Provider Source March 03, 2024 05:43 PM Outpatient Encounter ADMIN PAT ACTIVTIES (MASNONCT) MILLIE COOPER Encounter Template Text not used by [facility] Plan of Treatment: Future Appointments (+ 6 months) and Future Tests (+/- 45 days) The Plan of Treatment section includes future care activities for the patient from all [place] treatmentfacilities. This section includes future appointments and future orders which are active, pending or scheduled. Future Appointments This section includes appointments that were scheduled to occur 6 months from the date of the Encounter, up to a maximum of 20 appointments. The data comes from all [place] treatment facilities. Appointment Date/Time Appointment Type Appointme nt Facility Name Apr 05, 2024 09:30 AM AMBULATORY - MEDICINE [facility] Apr 27, 2024 07:30 AM AMBULATORY - SURGERY [facility] May 02, 2024 08:00 AM AMBULATORY - NONE [facility] May 02, 2024 08:30 AM [facility]ULATORY - MEDICINE [facility] May 16, 2024 02:00 PM AMBULATORY - MEDICINE [facility] Jul 12, 2024 08:00 AM AMBULATORY - NONE [facility] Jul 12, 2024 08:30 AM AMBULATORY - MEDICINE [facility] Aug 18, 2024 09:15 AM AMBULATORY - MEDICINE [facility] Lab Results: +/- 30 days of the encounter This section includes the Chemistry and Hematology Lab Results on record with [place] for the patient. Radiology Reports and Pathology Reports are provided separately, in subsequent sections. Lab Results This section contains the Chemistry/Hematology Results that were resulted 30 days before or 30 daysafter the date of the Encounter. Date/Time Source Result Type Result - Unit Interpretation Reference Range Comment Feb 09, 2024 12:40 PM [facility] HEP B CORE AB TOTAL. (STL) Specimen Type: SERUM No comment entered. Ordering Provider: CHENG PURCELL Report Released Date/Time: Feb 09, 2024 10:43 AM Reporting Lab: [facility] [address] [facility] [facility] [address] [address] Performing Lab: [place] [address] [facility] [address] HEP B CORE AB TOTAL. (STL) Nonreactive Nonreactive Feb 09, 2024 12:40 PM [facility] HEP HB S Ag ([place]) (STL) Specimen Type: SERUM No comment entered. Ordering Provider: CHENG PURCELL Report Released Date/Time: Feb 09, 2024 10:43 AM Reporting Lab: [address] [address] Performing Lab: [address] [address] HEP HB S Ag ([place]) ([facility]) Nonreactive Nonreactive Feb 09, 2024 12:40 PM [facility] HEPATITIS B SURFACE AB PNL Specimen Type: SERUM No comment entered. Ordering Provider: CHENG PURCELL Report Released Date/Time: Feb 09, 2024 10:43 AM Reporting Lab: [address] [address] Performing Lab: [address] [address] HEP B Surface Ab-HBsAB (L) REACTIVE m[IU]/mL Nonreactive HEP Bs AB-QUANT (L) 79.36 m[IU]/mL Feb 09, 2024 12:40 PM [facility] RENAL PANEL Specimen Type: PLASMA Comment: No hemolysis noted. Ordering Provider: CHENG PURCELL Report Released Date/Time: Feb 04, 2024 03:20 PM Reporting Lab: [address] [address] Performing Lab: [address] [address] CREATININE 7.69 mg/dL H 0.7-1.3 UREA NITROGEN 52.2 mg/dL H 9.0-25.0 GLUCOSE 147 mg/dL H 72-99 SODIUM 142 meq/L 136-145 POTASSIUM 4.1 meq/L 3.5-5 CHLORIDE 107 meq/L 98-107 CARBON DIOXIDE 22 meq/L 22-31 CALCIUM 10.2 mg/dL 8.4-10.4 PHOSPHOROUS 3.7 mg/dL 2.3-4.7 ALBUMIN 3.7 g/dL 3.4-5 EGFR (CKD-EPI 2020) 7.1 LL >60 Feb 09, 2024 12:40 PM [facility] CBC Specimen Type: BLOOD No comment entered. Ordering Provider: CHENG PURCELL Report Released Date/Time: Feb 04, 2024 03:20 PM Reporting Lab: [facility] [address] [facility] [address] Performing Lab: [address] [address] WBC 9.7 10*3/uL 3.6-11.2 RBC 3.09 10*6/uL [...] 10*3/uL 0.00-0.20 Feb 04, 2024 05:00 PM [facility] URR-POST PANEL (STL) Specimen Type: PLASMA No comment entered. Ordering Provider: CHENG PURCELL Report Released Date/Time: Feb 04, 2024 01:42 PM Reporting Lab: [address] [address] Performing Lab: [address] [address] BUN-POST DIALYSIS 16.2 mg/dL 9.0-25.0 URR (STL) 70.4 67.0-100.0 Feb 04, 2024 12:45 PM [facility] RENAL PANEL Specimen Type: PLASMA Comment: No hemolysis noted. Ordering Provider: CHENG PURCELL Report Released Date/Time: Feb 04, 2024 01:42 PM Reporting Lab: [facility] [address] [facility] [facility] [address] Performing Lab: [facility] [address] [facility] [address] CREATININE 6.97 mg/dL H 0.7-1.3 UREA NITROGEN 54.7 mg/dL H 9.0-25.0 GLUCOSE 134 mg/dL H 72-99 SODIUM 142 meq/L 136-145 POTASSIUM 4.0 meq/L 3.5-5 CHLORIDE 105 meq/L 98-107 CARBON DIOXIDE 24 meq/L 22-31 CALCIUM 9.7 mg/dL 8.4-10.4 PHOSPHOROUS 4.8 mg/dL H 2.3-4.7 ALBUMIN 3.9 g/dL 3.4-5 EGFR (CKD-EPI 2020) 7.9 LL >60 Social History: Smoking Status (Most current) and Tobacco Use (All prior to encounter date) This section includes the most current, and the historical, smoking and tobacco- related health factors from the [place] facility where the Encounter took place. Current Smoking Status This section includes the most current smoking, or tobacco-related health factor, from the [place] facility where the Encounter took place. Date/Time Current Smoking Status Comment Ester ity Jun 21, 2023 01:14 PM [facility] ADMIT TOBACCO SCREEN NO [facility] Tobacco Use History This section includes a history of the smoking, or tobacco-related health factors, that were collected on or before the date of the Encounter. The data comes from the [place] facility where the Encounter took place. Date/Time Smoking Status/Tobacco Use Comment F acility Dec 12, 2022 04:00 PM [facility] ADMIT TOBACCO SCREEN NO [facility] Jun 25, 2022 03:24 PM VA-TOBACCO FORMER USER [facility] Jun 25, 2022 03:24 PM VA-TOBACCO QUIT 15 YRS OR MORE [facility] Dec 23, 2021 04:59 PM [facility] ADMIT TOBACCO SCREEN REFUSED [facility] May 24, 2020 11:27 PM [facility] ADMIT TOBACCO SCREEN NO [facility] Dec 12, 2019 10:24 AM VA-TOBACCO FORMER USER [facility] Dec 12, 2019 10:24 AM VA-TOBACCO QUIT 15 YRS OR MORE [facility] Aug 03, 2019 02:11 AM [facility] ADMIT TOBACCO SCREEN REFUSED [facility] Oct 12, 2018 01:14 AM QUIT TOBACCO >7 YEARS AGO [facility] Oct 11, 2018 03:33 PM [facility] ADMIT TOBACCO SCREEN NO [facility] Sep 07, 2018 09:13 PM [facility] ADMIT TOBACCO SCREEN NO [facility] Sep 07, 2018 07:52 PM QUIT TOBACCO >7 YEARS AGO [facility] Advance Directives: All historical and current Section Date Range: From patient's date of to the date document was created. This section includes ALL of a patient's completed or amended [place] Advance and Rescinded Directives. The entries below indicate that a directive exists for the patient, but an actual copy is not included with this document. The data comes from all [place] facilities. Date Advance Directives Provider Source Dec 17, [address] [facility] Feb 09, 2020 ADVANCE DIRECTIVE DISCUSSION MELY LUCIANO [facility] Feb 02, 2018 ADVANCE DIRECTIVE BEAU ALTAMIRANO [facility] Nov 29, 2006 ADVANCE DIRECTIVE MARELY CHACON [facility] Encounter Notes: All associated encounter notes This section contains the clinical notes associated to the Encounter. Date/Time Encounter Note(s) Provider Source March 03, 2024 05:44 PM PHARMACY NOTE: LOCAL TITLE: V15 CCC OUTSIDE PRESCRIPTION STANDARD TITLE: PHARMACY NOTE DATE OF NOTE: MARCH 03, 2024@17:44 ENTRY DATE: MARCH 03, 2024@17:45:02 AUTHOR: MILLIE COOPER EXP COSIGNER: URGENCY: STATUS: COMPLETED [facility] [address] [place] [address] [facility] [address] [facility] [place] [address] [facility] [address] [place] [address] NAGI KATZ [address] [place] [address] : Jul ALLERGIES: MORPHINE The orders below are to be filled by any outpatient pharmacy: CARVEDILOL 25MG TAB Sig: TAKE ONE TABLET BY MOUTH TWICE A DAY FOR HIGH BLOOD PRESSURE Disp # 14 no refills DATE: MARCH 03, 2024 Tatianna Cooper WEB SOFTWARE ENGINEER-C NAGI KATZ * OPTUM: Enter [facility]s pharmacy claims using * * the following information: * Step 1: Enter BIN: [id number] Step 2: Enter PCN: ADV Step 3: Enter Rx Group: [id number] Step 4: Enter ID: 10-digit Chappell ID or SSN: [id number] Step 5: Enter 's date of (re-enter in YYMMDD format) ( from VistA: Jul) For questions, please call the [facility]() Pharmacy Help Desk at [phone]. Pharmacy Name: [facility] Pharmacy Address: [address] [place] [address] [place] [address] Pharmacy /es/ MILLIE COOPER WEB SOFTWARE ENGINEER-C NURSE PRACTITIONER Signed: 03/03/2024 17:46 MILLIE COOPER [facility]
--- OUTSIDE RECORDS SUMMARY | 2024-12-05 00:25 | XMS_ITS | Encounter Summary ---
Author Name [facility] [facility] [place] Address [address] [place] [address] Care Team Providers Care Water Resource Project Manager Name Role Phone ERIKA DEE Primary [...] PART A Jul 12, 2019 PART A [id number] PRASANNA KATZ PATIENT MEDICARE (WNR) MEDICARE (M) PART A Jul 12, 2019 PART A [id number] [phone] PRASANNA KATZ PATIENT Selected Encounter This section includes the information on record at CT for the Encounter. Date/Time Encounter Type Encounter Description Reason Provider Source Jan 11, 2024 09:00 AM CASE MANAGEMENT ASSISTED HEMODIALYSIS ICD-10-CM E11.21 Type 2 diabetes mellitus with diabetic nephropathy MISTY GARCIA Encounter Template Text not used by [facility] Assessments - Encounter Diagnoses This section includes the primary and secondary diagnoses documented for the Encounter. Date/Time Primary/Secondary Diagnosis Diagnosis Name Provider Source Jan 11, 2024 01:59 PM PRIMARY Type 2 diabetes mellitus with diabetic nephropathy XENA GARCIA [facility] Plan of Treatment: Future Appointments (+ 6 months) and Future Tests (+/- 45 days) The Plan of Treatment section includes future care activities for the patient from all CT treatmentfacilities. This section includes future appointments and future orders which are active, pending or scheduled. Future Appointments This section includes appointments that were scheduled to occur 6 months from the date of the Encounter, up to a maximum of 20 appointments. The data comes from all CT treatment facilities. Appointment Date/Time Appointment Type Appointme nt Facility Name Jan 12, 2024 10:30 AM AMBULATORY - MEDICINE [facility] Jan 21, 2024 12:30 PM AMBULATORY - MEDICINE [facility] Jan 23, 2024 12:30 PM AMBULATORY - MEDICINE [facility] Jan 25, 2024 02:30 PM AMBULATORY - MEDICINE [facility] Jan 26, 2024 12:30 PM AMBULATORY - MEDICINE [facility] Jan 28, 2024 12:30 PM AMBULATORY - MEDICINE [facility] Feb 02, 2024 12:30 PM AMBULATORY - MEDICINE [facility] Feb 04, 2024 12:15 PM AMBULATORY - MEDICINE [facility] Feb 06, 2024 12:30 PM AMBULATORY - MEDICINE [facility] Feb 09, 2024 12:30 PM AMBULATORY - MEDICINE [facility] February 11, 2024 12:30 PM AMBULATORY - MEDICINE [facility] February 13, 2024 12:30 PM AMBULATORY - MEDICINE [facility] February 15, 2024 08:00 AM AMBULATORY - NONE [facility] February 15, 2024 08:30 AM AMBULATORY - MEDICINE [facility] Apr 05, 2024 09:30 AM AMBULATORY - MEDICINE [facility] Apr 27, 2024 07:30 AM AMBULATORY - SURGERY [facility] May 02, 2024 08:00 AM AMBULATORY - NONE [facility] May 02, 2024 08:30 AM [facility] May 16, 2024 02:00 PM AMBULATORY - MEDICINE [facility] Jul 12, 2024 08:00 AM AMBULATORY - NONE [facility] Lab Results: +/- 30 days of the encounter This section includes the Chemistry and Hematology Lab Results on record with CT for the patient. Radiology Reports and Pathology [...] Feb 09, 2024 10:43 AM Reporting Lab: [address] [address] Performing Lab: [address] [address] HEP B CORE AB TOTAL. (STL) Nonreactive Nonreactive Feb 09, 2024 12:40 PM [facility] HEP HB S Ag ([place]) (STL) Specimen Type: SERUM No comment entered. Ordering Provider: KYLER PURCELL Report Released Date/Time: Feb 09, 2024 10:43 AM Reporting Lab: [address] [address] Performing Lab: [address] [address] HEP HB S Ag ([place]) (STL) Nonreactive Nonreactive Feb 09, 2024 12:40 PM [facility] HEPATITIS B SURFACE AB PNL Specimen Type: SERUM No comment entered. Ordering Provider: KYLER PURCELL Report Released Date/Time: Feb 09, 2024 10:43 AM Reporting Lab: [address] [address] Performing Lab: [facility] [address] [facility] [address] HEP B Surface Ab-HBsAB (L) REACTIVE m[IU]/mL Nonreactive HEP Bs AB-QUANT (L) 79.36 m[IU]/mL Feb 09, 2024 12:40 PM [facility] RENAL PANEL Specimen Type: PLASMA Comment: No hemolysis noted. Ordering Provider: YKLER PURCELL Report Released Date/Time: Feb 04, 2024 03:20 PM Reporting Lab: [address] [address] Performing Lab: [address] [address] CREATININE 7.69 mg/dL H 0.7-1.3 UREA NITROGEN [...] Feb 04, 2024 03:20 PM Reporting Lab: [address] [address] Performing Lab: [address] [address] WBC 9.7 10*3/uL 3.6-11.2 RBC 3.09 10*6/uL [...] Feb 04, 2024 01:42 PM Reporting Lab: [address] [address] Performing Lab: [address] [address] BUN-POST DIALYSIS 16.2 mg/dL 9.0-25.0 URR (STL) 70.4 67.0-100.0 Feb 04, 2024 12:45 PM [facility] RENAL PANEL Specimen Type: PLASMA Comment: No hemolysis noted. Ordering Provider: KYLER PURCELL Report Released Date/Time: Feb 04, 2024 01:42 PM Reporting Lab: [place] [id number] [facility] [address] Performing Lab: [address] [address] CREATININE 6.97 mg/dL H 0.7-1.3 UREA NITROGEN [...] Feb 02, 2024 03:39 PM Reporting Lab: [address] [address] Performing Lab: [address] [address] BUN-POST DIALYSIS 22.9 mg/dL 9.0-25.0 URR (STL) 60.9 L 67.0-100.0 Feb 02, 2024 11:50 AM [facility] RENAL PANEL Specimen Type: PLASMA Comment: No hemolysis noted. Ordering Provider: KYLER PURCELL Report Released Date/Time: Feb 02, 2024 07:35 AM Reporting Lab: [address] [address] Performing Lab: [address] [address] CREATININE 8.34 mg/dL H 0.7-1.3 UREA NITROGEN [...] Jan 28, 2024 04:55 PM Reporting Lab: [facility] [address] [place] [address] Performing Lab: [address] [address] VOLUME 3289 mL SODIUM 24-HOUR URINE 226.941 H 40-220 POTASSIUM 24-HOUR URINE 35.8501 25-125 CHLORIDE 24-HOUR URINE 171.028 110-250 PROTEIN 24-HOUR URINE 1986.556 H 0-299.9 CREATININE 24-HOUR URINE [phone] Jan 28, 2024 05:29 PM [facility] CBC Specimen Type: BLOOD No comment entered. Ordering Provider: KYLER PURCELL Report Released Date/Time: Jan 28, 2024 05:07 PM Reporting Lab: [facility] [address] [place] [phone] Performing Lab: [address] [address] WBC 8.9 10*3/uL 3.6-11.2 RBC 2.96 10*6/uL [...] Jan 21, 2024 03:14 PM Reporting Lab: [address] [address] Performing Lab: [address] [address] PTH, INTACT (STL) 141.40 pg/mL H 8.7-77.7 Jan 26, 2024 01:00 PM [facility] IRON/TIBC PROFILE Specimen Type: SERUM No comment entered. Ordering Provider: KYLER PURCELL Report Released Date/Time: Jan 21, 2024 03:14 PM Reporting Lab: [address] [address] Performing Lab: [address] [address] TIBC 225 ug/dL L 250-450 TRANSFERRIN 180 mg/dL 163-344 IRON SATURATION 23 20-50 IRON 52 ug/dL L 65-175 Jan 26, 2024 01:00 PM [facility] FERRITIN Specimen Type: SERUM No comment entered. Ordering Provider: KYLER PURCELL Report Released Date/Time: Jan 21, 2024 03:14 PM Reporting Lab: [address] [address] Performing Lab: [address] [address] FERRITIN 118.78 ng/mL 22-275 Jan 26, 2024 01:00 PM [facility] RENAL PANEL Specimen Type: PLASMA Comment: No hemolysis noted. Ordering Provider: KYLER PURCELL Report Released Date/Time: Jan 21, 2024 03:14 PM Reporting Lab: [address] [place] [address] Performing Lab: [address] [address] CREATININE 8.25 mg/dL H 0.7-1.3 UREA NITROGEN [...] Jan 21, 2024 03:14 PM Reporting Lab: [address] [address] Performing Lab: [address] [address] WBC 7.8 10*3/uL 3.6-11.2 RBC 2.95 10*6/uL [...] 2024 12:55 PM [facility] PT/INR NEW (ST-AK) Specimen Type: PLASMA No comment entered. Ordering Provider: KYLER PURCELL Report Released Date/Time: Jan 21, 2024 12:43 PM Reporting Lab: [address] [address] Performing Lab: [address] [address] PROTIME 15.9 s H 9.4-12.5 INR VALUE 1.4 {INR} Jan 21, 2024 12:55 PM [facility] RENAL PANEL Specimen Type: PLASMA Comment: No hemolysis noted. Ordering Provider: KYLER PURCELL Report Released Date/Time: Jan 21, 2024 12:41 PM Reporting Lab: [address] [address] Performing Lab: [address] [address] CREATININE 8.11 mg/dL H 0.7-1.3 UREA NITROGEN [...] Jan 13, 2024 07:58 AM Reporting Lab: [place] [phone] Performing Lab: [facility] [address] [facility] [address] CREATININE 8.05 mg/dL H 0.7-1.3 UREA NITROGEN [...] Specimen Type: BLOOD Comment: Test Performed by: [id number] Meter #: [id number] Ordering Provider: LINOMED Report Released Date/Time: Jan 11, 2024 11:50 AM Reporting Lab: [address] [address] Performing Lab: [address] [address] GLUCOSE,BLOOD- poct (STL) 106 mg/dL H 72-99 Jan 11, 2024 11:07 AM [facility] GLUCOSE,BLOOD-poct (STL) Specimen Type: BLOOD Comment: Test Performed by: [id number] Meter #: [id number] Ordering Provider: LINO,MED Report Released Date/Time: Jan 11, 2024 11:18 AM Reporting Lab: [address] [address] Performing Lab: [address] [address] GLUCOSE,BLOOD- poct (STL) 109 mg/dL H 72-99 Jan 11, 2024 05:12 AM [facility] GLUCOSE,BLOOD-poct (STL) Specimen Type: BLOOD Comment: Test Performed by: [id number] Meter #: [id number] Ordering Provider: LIDIA HUYNH Report Released Date/Time: Jan 11, 2024 05:25 AM Reporting Lab: [address] [address] Performing Lab: [address] [address] GLUCOSE,BLOOD- poct (STL) 88 mg/dL 72-Jan 10, 2024 08:19 PM [facility] GLUCOSE,BLOOD-poct (STL) Specimen Type: BLOOD Comment: Test Performed by: [id number] Meter #: [id number] Ordering Provider: LINOMED Report Released Date/Time: Jan 10, 2024 08:31 PM Reporting Lab: [place] [phone] Performing Lab: [place] [phone] GLUCOSE,BLOOD- poct (STL) 153 mg/dL H -Jan 10, 2024 04:15 PM [facility] GLUCOSE,BLOOD-poct (STL) Specimen Type: BLOOD Comment: Test Performed by: [id number] Meter #: [id number] Ordering Provider: LIDIA HUYNH Report Released Date/Time: Jan 10, 2024 05:05 PM Reporting Lab: [address] [address] Performing Lab: [address] [address] GLUCOSE,BLOOD- poct (STL) 84 mg/dL 72-Jan 10, 2024 11:31 AM [facility] GLUCOSE,BLOOD-poct (STL) Specimen Type: BLOOD Comment: Test Performed by: [id number] Meter #: [id number] Ordering Provider: LINOMED Report Released Date/Time: Jan 10, 2024 12:03 PM Reporting Lab: [place] [phone] Performing Lab: [address] [place] [address] GLUCOSE,BLOOD- poct (STL) 99 mg/dL 72-Jan 10, 2024 04:45 AM [facility] GLUCOSE,BLOOD-poct (STL) Specimen Type: BLOOD Comment: Test Performed by: [id number] Meter #: [id number] Ordering Provider: LINOMED Report Released Date/Time: Jan 10, 2024 05:29 AM Reporting Lab: [address] [address] Performing Lab: [address] [address] GLUCOSE,BLOOD- poct (STL) 109 mg/dL H -Jan 09, 2024 08:08 PM [facility] GLUCOSE,BLOOD-poct (STL) Specimen Type: BLOOD Comment: Test Performed by: [id number] Meter #: [id number] Ordering Provider: LINOMED Report Released Date/Time: Jan 09, 2024 08:28 PM Reporting Lab: [place] [address] [facility] [address] Performing Lab: [address] [address] GLUCOSE,BLOOD- poct (STL) 110 mg/dL H 72-Jan 09, 2024 04:19 PM [facility] GLUCOSE,BLOOD-poct (STL) Specimen Type: BLOOD Comment: Test Performed by: [id number] Meter #: [id number] Ordering Provider: LINOMED Report Released Date/Time: Jan 09, 2024 04:34 PM Reporting Lab: [address] [address] Performing Lab: [address] [address] GLUCOSE,BLOOD- poct (STL) 119 mg/dL H 72-99 Jan 09, 2024 02:30 PM [facility] MAGNESIUM Specimen Type: PLASMA Comment: No hemolysis noted. Ordering Provider: TATI ZAVALA Report Released Date/Time: Jan 09, 2024 07:51 AM Reporting Lab: [address] [address] Performing Lab: [address] [address] MAGNESIUM 1.6 mg/dL 1.6-2.6 Jan 09, 2024 02:30 PM [facility] RENAL PANEL Specimen Type: PLASMA Comment: No hemolysis noted. Ordering Provider: TATI ZAVALA Report Released Date/Time: Jan 09, 2024 07:51 AM Reporting Lab: [address] [address] Performing Lab: [address] [address] CREATININE 5.13 mg/dL H 0.7-1.3 UREA NITROGEN [...] Specimen Type: BLOOD Comment: Test Performed by: [id number] Meter #: [id number] Ordering Provider: LIDIA HUYNH Report Released Date/Time: Jan 09, 2024 12:38 PM Reporting Lab: [address] [address] Performing Lab: [address] [address] GLUCOSE,BLOOD- poct (STL) 98 mg/dL 72-99 Jan 09, 2024 07:15 AM [facility] GLUCOSE,BLOOD-poct (STL) Specimen Type: BLOOD Comment: Test Performed by: [id number] Meter #: [id number] Ordering Provider: LIDIA HUYNH Report Released Date/Time: Jan 09, 2024 07:58 AM Reporting Lab: [facility] [address] [facility] [address] Performing Lab: [facility] [address] [facility] [address] GLUCOSE,BLOOD- poct (STL) 86 mg/dL 72-99 Jan 08, 2024 09:04 PM [facility] GLUCOSE,BLOOD-poct (STL) Specimen Type: BLOOD Comment: Test Performed by: [id number] Meter #: [id number] Ordering Provider: LIDIA HUYNH Report Released Date/Time: Jan 08, 2024 09:47 PM Reporting Lab: [place] [address] [facility] [address] Performing Lab: [place] [address] [facility] [address] GLUCOSE,BLOOD- poct (STL) 90 mg/dL 72-99 Jan 08, 2024 09:01 PM [facility] HEP B CORE AB TOTAL. (STL) Specimen Type: SERUM No comment entered. Ordering Provider: EFREN TAYLOR Report Released Date/Time: Jan 08, 2024 02:35 PM Reporting Lab: [place] [address] [facility] [address] Performing Lab: [place] [address] [facility] [address] HEP B CORE AB TOTAL. (STL) Nonreactive Nonreactive Jan 08, 2024 09:01 PM [facility] HEP HB S Ag ([place]) (STL) Specimen Type: SERUM No comment entered. Ordering Provider: EFREN TAYLOR Report Released Date/Time: Jan 08, 2024 02:35 PM Reporting Lab: [place] [address] [facility] [address] Performing Lab: [place] [address] [facility] [address] HEP HB S Ag ([place]) (STL) Nonreactive Nonreactive Jan 08, 2024 09:01 PM [facility] HEPATITIS B SURFACE AB PNL Specimen Type: SERUM No comment entered. Ordering Provider: EFREN TAYLOR Report Released Date/Time: Jan 08, 2024 02:35 PM Reporting Lab: [place] [address] [facility] [address] Performing Lab: [place] [address] [facility] [address] HEP B Surface Ab-HBsAB ([facility]) REACTIVE m[IU]/mL Nonreactive HEP Bs AB-QUANT (L) 63.22 m[IU]/mL Jan 08, 2024 04:47 PM [facility] GLUCOSE,BLOOD-poct (STL) Specimen Type: BLOOD Comment: Test Performed by: [id number] Meter #: [id number] Ordering Provider: LIDIA HUYNH Report Released Date/Time: Jan 08, 2024 05:09 PM Reporting Lab: [place] [address] [facility] [address] Performing Lab: [place] [address] [facility] [address] GLUCOSE,BLOOD- poct (STL) 95 mg/dL 72-99 Jan 08, 2024 11:26 AM [facility] GLUCOSE,BLOOD-poct (STL) Specimen Type: BLOOD Comment: Test Performed by: [id number] Meter #: [id number] Ordering Provider: LIDIA HUYNH Report Released Date/Time: Jan 08, 2024 11:37 AM Reporting Lab: [place] [address] [facility] [address] Performing Lab: [address] [address] GLUCOSE,BLOOD- poct (STL) 105 mg/dL H 72-99 Jan 08, 2024 07:01 AM [facility] RENAL PANEL Specimen Type: PLASMA Comment: No hemolysis noted. Ordering Provider: LIZETTE GRIFFIN Report Released Date/Time: Jan 07, 2024 11:24 PM Reporting Lab: [address] [address] Performing Lab: [address] [address] CREATININE 8.50 mg/dL H 0.7-1.3 UREA NITROGEN [...] Specimen Type: BLOOD Comment: Test Performed by: [id number] Meter #: [id number] Ordering Provider: LIDIA HUYNH Report Released Date/Time: Jan 08, 2024 06:48 AM Reporting Lab: [address] [address] Performing Lab: [address] [address] GLUCOSE,BLOOD- poct (STL) 86 mg/dL 72-99 Jan 07, 2024 11:58 PM [facility] RENAL PANEL Specimen Type: PLASMA Comment: No hemolysis noted. Ordering Provider: LIZETTE GRIFFIN Report Released Date/Time: Jan 07, 2024 11:38 PM Reporting Lab: [address] [address] Performing Lab: [address] [address] CREATININE 8.68 mg/dL H 0.7-1.3 UREA NITROGEN 92.6 mg/dL H 9.0-25.0 GLUCOSE 143 mg/dL H 72-99 SODIUM 138 meq/L 136-145 POTASSIUM 5.0 meq/L 3.5-5 CHLORIDE 111 meq/L H 98-107 CARBON DIOXIDE 17 meq/L L 22-31 CALCIUM 8.8 mg/dL 8.4-10.4 PHOSPHOROUS 3.8 mg/dL 2.3-4.7 ALBUMIN 3.8 g/dL 3.4-5 EGFR (CKD-EPI 2020) 6.1 LL >60 Jan 07, 2024 11:36 PM [facility] GLUCOSE,BLOOD-poct (STL) Specimen Type: BLOOD Comment: Test Performed by: [id number] Meter #: [id number] Ordering Provider: LIDIA MOSCOSO Report Released Date/Time: Jan 07, 2024 11:47 PM Reporting Lab: [facility] [address] [facility] [address] Performing Lab: [address] [address] GLUCOSE,BLOOD- poct (STL) 157 mg/dL H 72-99 Jan 07, 2024 11:30 PM [facility] MRSA SURVL NARES DNA Specimen Type: [...] Jan 07, 2024 11:24 PM Reporting Lab: [facility] [address] [facility] [address] Performing Lab: [address] [address] MRSA SURVL NARES DNA Negative Negative Jan 07, 2024 09:08 PM [facility] POTASSIUM Specimen Type: PLASMA Comment: No hemolysis noted. Ordering Provider: ANNA CALI Report Released Date/Time: Jan 07, 2024 08:38 PM Reporting Lab: [facility] [address] [facility] [address] Performing Lab: [address] [address] POTASSIUM 5.7 meq/L H 3.5-5 Jan 07, 2024 07:30 PM [facility] URINALYSIS (STL-PB) Specimen Type: URINE No comment entered. Ordering Provider: ANNA CALI Report Released Date/Time: Jan 07, 2024 05:18 PM Reporting Lab: [address] [address] Performing Lab: [address] [address] URINE COLOR Colorless Yellow U.BILIRUBIN Negative mg/dL [...] 1.015 1.005-1.029 Jan 07, 2024 05:30 PM [facility] BRAIN NATRIURETIC PEPTIDE Specimen Type: PLASMA No comment entered. Ordering Provider: GRACIELA MANN Report Released Date/Time: Jan 07, 2024 04:59 PM Reporting Lab: [address] [address] Performing Lab: [address] [address] BRAIN NATRIURETIC PEPTIDE 59.0 pg/mL 0-100 Jan 07, 2024 05:30 PM [facility] COVID-19 DIAGNOSTIC (FLU/RSV)(STL) Specimen Type: NASOPHARYNX [...] Jan 07, 2024 04:59 PM Reporting Lab: [place] [address] Performing Lab: [place] [address] INFLUENZA A Negative Negative INFLUENZA B Negative Negative COVID-19 (STL-PB) Not Detected Not Detected RSV (Cepheid) NEGATIVE Negative Jan 07, 2024 05:30 PM [facility] COMPREHENSIVE METABOLIC PANEL Specimen Type: PLASMA Comment: Aspartate Transaminase result may show positive bias due to hemolysis. K result canceled due to hemolysis. Specimen moderately hemolyzed. K cancelled due to moderate hemolysis. Called to : Phillip Cee RN at: [id number] on: 01/07/2024 by: TENN[place]LE Ordering Provider: GRACIELA MANN Report Released Date/Time: Jan 07, 2024 04:59 PM Reporting Lab: [place] [address] Performing Lab: [place] [address] CREATININE 8.88 mg/dL H 0.7-1.3 UREA NITROGEN [...] LL >60 Jan 07, 2024 05:30 PM [facility] CBC Specimen Type: BLOOD No comment entered. Ordering Provider: GRACIELA MANN Report Released Date/Time: Jan 07, 2024 04:59 PM Reporting Lab: [facility] [address] [facility] [address] Performing Lab: [facility] [address] [facility] [address] WBC 9.2 10*3/uL 3.6-11.2 RBC 3.81 10*6/uL [...] Height Weight Body Mass Index Source Jan 11, 2024 11:39 AM 3 [facility] Jan 11, 2024 10:09 AM 7 [facility] Jan 11, 2024 10:05 AM 97.8 65 162/81 20 98 7 [facility] Jan 11, 2024 09:09 AM 10 [facility] Jan 11, 2024 09:06 AM 10 [facility] Social History: Smoking Status (Most [...] 07:52 PM QUIT TOBACCO >7 YEARS AGO [facility] Advance Directives: All historical and current [...] Dec 17, 2022 ADVANCE DIRECTIVE BIJAN MERRITT [facility] Feb 09, 2020 ADVANCE DIRECTIVE DISCUSSION MELY LUCIANO [facility] Feb 02, 2018 ADVANCE DIRECTIVE BEAU ALTAMIRANO [facility] Nov 29, 2006 ADVANCE DIRECTIVE MARELY CHACON [facility] Radiology Reports: +/- 30 days [...] the Encounter. The data comes from all [facility] facilities. 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 images were received by the [place] National Teleradiology Program (NTP) for interpretation. FINDINGS: Bilateral peribronchial thickening. Patchy bilateral lower lobe lung opacities. Mildly tortuous aorta. No acute bony abnormalities. Impression: 1. Bilateral peribronchial thickening. 2. Patchy bilateral lung opacities likely represent atelectasis. 3. No pneumothorax. READING PHYSICIAN: Madhu Patton M.D. -[id number] 01/07/2024 19:10 PDT [facility] National Teleradiology Program [phone] (For Medical Practitioner Use Only) Attention Patients / Veterans: If you have questions or concerns about these test results, please contact your ordering provider or primary care team. Primary Interpreting Staff: RADIOLOGY,OUTSIDE SERVICE, Staff Physician / RADIOLOGY,OUTSIDE SERVICE [facility] Encounter Notes: All associated encounter notes This section contains the clinical notes associated to the Encounter. Date/Time Encounter Note(s) Provider Source Jan 11, 2024 09:00 AM SOCIAL WORK OUTPAT IENT NOTE: LOCAL TITLE: SW OUTPATIENT STL STANDARD TITLE: SOCIAL WORK OUTPATIENT NOTE DATE OF NOTE: JAN 11, 2024@09:00 ENTRY DATE: JAN 11, 2024@11:05:07 AUTHOR: STACEY GARCIA EXP COSIGNER: URGENCY: STATUS: COMPLETED Dialysis SW Note SW informed by Nephrology Fellow this AM that was initiated on hemodialysis late last week and will need permanent placement in the community post d/c. Prior to meeting with , EZEKIEL reviewed record and researched dialysis centers near where lives. It appears there are a few [facility]'s nearby so this sheet writer proceeded to go ahead and make referral to [facility], . Necessary information provided and subsequently faxed to [facility] at [phone]. Options for placement discussed and it appears the closest center, [facility] can tentatively accomodate vet on a [facility] second shift schedule, with a start time somewhere between 9 AM and 230 PM. As SW on the way to meet with , this sheet writer stopped by RN Practitioner Caridad, who explains that vet will be staying at for a few weeks to dialyze so staff can work with his new fistula. She confirms having already discussed with . EZEKIEL proceeded to meet with in his hospital room on [facility] to introduce self, see how he is doing, explain reason for visit, and offer any assistance as needed. EZEKIEL explained above, although acknowleged that shift day/time is subject to change depending on how long he stays at , etc. Vet voices understanding and agreement. SW explained that the only availability at currently is [facility]. Shift times discussed and chose 1230 pm. RN Practitioner Caridad informed of same. No other immediate needs or concerns for social work intervention identified at this time. SW will continue to follow and remain available as needed. /es/ FLORIN Devlin, FINISH [employer] Manager [employer] Signed: 01/11/2024 13:59 [facility]
--- OUTSIDE RECORDS SUMMARY | 2024-12-05 00:26 | XMS_ITS ---
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 Date/Time Encounter Type Encounter Description Reason Provider Source Jan 26, 2024 12:30 PM TREATED WATER PER [facility] ASSISTED HEMODIALYSIS ICD-10-CM N18.6 End stage renal disease KYLIE VILLAGOMEZ Jono Encounter Template Text not used by [place] Assessments - Encounter Diagnoses This section includes the primary and secondary diagnoses documented for the Encounter. 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 May 02, 2024 08:00 AM AMBULATORY - NONE [facility] May 02, 2024 08:30 AM AMBULATORY - MEDICINE [facility] May 16, 2024 02:00 PM AMBULATORY - MEDICINE [facility] Jul 12, 2024 08:00 AM AMBULATORY - NONE [facility] Jul 12, 2024 08:30 AM AMBULATORY - MEDICINE [facility] Lab Results: +/- 30 days of [...] Feb 09, 2024 10:43 AM Reporting Lab: [address] [address] Performing Lab: [address] [address] HEP HB S Ag ([place]RI[place]) (STL) Nonreactive Nonreactive Feb 09, 2024 12:40 PM [facility] HEP B CORE AB TOTAL. (STL) Specimen Type: SERUM No comment entered. Ordering Provider: KYLER PURCELL Report Released Date/Time: Feb 09, 2024 10:43 AM Reporting Lab: [address] [address] Performing Lab: [address] [address] HEP B CORE AB TOTAL. (STL) Nonreactive Nonreactive Feb 09, 2024 12:40 PM [facility] HEPATITIS B SURFACE AB PNL Specimen Type: SERUM No comment entered. Ordering Provider: KYLER PURCELL Report Released Date/Time: Feb 09, 2024 10:43 AM Reporting Lab: [address] [address] Performing Lab: [address] [address] HEP B Surface Ab-HBsAB (STL) REACTIVE m[IU]/mL Nonreactive HEP Bs AB-QUANT (STL) 79.36 m[IU]/mL Feb 09, 2024 12:40 PM [facility] CBC Specimen Type: BLOOD No comment entered. Ordering Provider: KYLER PURCELL Report Released Date/Time: Feb 04, 2024 03:20 PM Reporting Lab: [address] [address] Performing Lab: [address] [address] WBC 9.7 10*3/uL 3.6-11.2 RBC 3.09 10*6/uL [...] Feb 04, 2024 03:20 PM Reporting Lab: [address] [address] Performing Lab: [address] [address] CREATININE 7.69 mg/dL H 0.7-1.3 UREA NITROGEN [...] 04, 2024 01:42 PM Reporting Lab: [address] [address] Performing Lab: [address] [address] BUN-POST DIALYSIS 16.2 mg/dL 9.0-25.0 URR (STL) 70.4 67.0-100.0 Feb 04, 2024 12:45 PM [facility] RENAL PANEL Specimen Type: PLASMA Comment: No hemolysis noted. Ordering Provider: KYLER PURCELL Report Released Date/Time: Feb 04, 2024 01:42 PM Reporting Lab: [address] [address] Performing Lab: [address] [address] CREATININE 6.97 mg/dL H 0.7-1.3 UREA NITROGEN [...] 02, 2024 03:39 PM Reporting Lab: [address] [address] Performing Lab: [address] [address] BUN-POST DIALYSIS 22.9 mg/dL 9.0-25.0 URR (STL) 60.9 L 67.0-100.0 Feb 02, 2024 11:50 AM [facility] RENAL PANEL Specimen Type: PLASMA Comment: No hemolysis noted. Ordering Provider: KYLER PURCELL Report Released Date/Time: Feb 02, 2024 07:35 AM Reporting Lab: [address] [address] Performing Lab: [address] [address] CREATININE 8.34 mg/dL H 0.7-1.3 UREA NITROGEN [...] 28, 2024 04:55 PM Reporting Lab: [address] [address] Performing Lab: [address] [address] VOLUME 3289 mL SODIUM 24-HOUR URINE 226.941 H 40-220 POTASSIUM 24-HOUR URINE 35.8501 25-125 CHLORIDE 24-HOUR URINE 171.028 110-250 PROTEIN 24-HOUR URINE 1986.556 H 0-299.9 CREATININE 24-HOUR URINE 2078.404 317-7488 Jan 28, 2024 05:29 PM [facility] CBC Specimen Type: BLOOD No comment entered. Ordering Provider: KYLER PURCELL Report Released Date/Time: Jan 28, 2024 05:07 PM Reporting Lab: [facility] [address] [facility] [address] Performing Lab: [place] [address] [facility] [address] WBC 8.9 10*3/uL 3.6-11.2 RBC 2.96 10*6/uL [...] Jan 21, 2024 03:14 PM Reporting Lab: [facility] [address] [facility] [address] Performing Lab: [address] [address] PTH, INTACT (STL) 141.40 pg/mL H 8.7-77.7 Jan 26, 2024 01:00 PM [facility] RENAL PANEL Specimen Type: PLASMA Comment: No hemolysis noted. Ordering Provider: KYLER PURCELL Report Released Date/Time: Jan 21, 2024 03:14 PM Reporting Lab: [address] [address] Performing Lab: [address] [address] CREATININE 8.25 mg/dL H 0.7-1.3 UREA NITROGEN [...] 21, 2024 03:14 PM Reporting Lab: [address] [address] Performing Lab: [address] [address] FERRITIN 118.78 ng/mL 22-275 Jan 26, 2024 01:00 PM [facility] IRON/TIBC PROFILE Specimen Type: SERUM No comment entered. Ordering Provider: KYLER PURCELL Report Released Date/Time: Jan 21, 2024 03:14 PM Reporting Lab: [facility] [address] [facility] [address] Performing Lab: [address] [address] TIBC 225 ug/dL L 250-450 TRANSFERRIN 180 mg/dL 163-344 IRON SATURATION 23 20-50 IRON 52 ug/dL L 65-175 Jan 26, 2024 01:00 PM [facility] CBC Specimen Type: BLOOD No comment entered. Ordering Provider: KYLER PURCELL Report Released Date/Time: Jan 21, 2024 03:14 PM Reporting Lab: [address] [address] Performing Lab: [address] [address] WBC 7.8 10*3/uL 3.6-11.2 RBC 2.95 10*6/uL [...] 2024 12:55 PM [facility] PT/INR NEW (STL-MA) Specimen Type: PLASMA No comment entered. Ordering Provider: KLYER PURCELL Report Released Date/Time: Jan 21, 2024 12:43 PM Reporting Lab: [address] [address] Performing Lab: [address] [address] PROTIME 15.9 s H 9.4-12.5 INR VALUE 1.4 {INR} Jan 21, 2024 12:55 PM [facility] RENAL PANEL Specimen Type: PLASMA Comment: No hemolysis noted. Ordering Provider: KYLER PURCELL Report Released Date/Time: Jan 21, 2024 12:41 PM Reporting Lab: [address] [address] Performing Lab: [address] [address] CREATININE 8.11 mg/dL H 0.7-1.3 UREA NITROGEN [...] 13, 2024 07:58 AM Reporting Lab: [address] [address] Performing Lab: [address] [address] CREATININE 8.05 mg/dL H 0.7-1.3 UREA NITROGEN [...] Specimen Type: BLOOD Comment: Test Performed by: [id number] Meter #: [id number] Ordering Provider: LINO,MED Report Released Date/Time: Jan 11, 2024 11:50 AM Reporting Lab: [address] [address] Performing Lab: [address] [address] GLUCOSE,BLOOD- poct (STL) 106 mg/dL H 72-Jan 11, 2024 11:07 AM [facility] GLUCOSE,BLOOD-poct (STL) Specimen Type: BLOOD Comment: Test Performed by: [id number] Meter #: [id number] Ordering Provider: LIDIA HUYNH Report Released Date/Time: Jan 11, 2024 11:18 AM Reporting Lab: [address] [address] Performing Lab: [address] [address] GLUCOSE,BLOOD- poct (STL) 109 mg/dL H 72-99 Jan 11, 2024 05:12 AM [facility] GLUCOSE,BLOOD-poct (STL) Specimen Type: BLOOD Comment: Test Performed by: [id number] Meter #: [id number] Ordering Provider: LINO,MED Report Released Date/Time: Jan 11, 2024 05:25 AM Reporting Lab: [address] [address] Performing Lab: [address] [address] GLUCOSE,BLOOD- poct (STL) 88 mg/dL 72-Jan 10, 2024 08:19 PM [facility] GLUCOSE,BLOOD-poct (STL) Specimen Type: BLOOD Comment: Test Performed by: [id number] Meter #: [id number] Ordering Provider: LIDIA HUYNH Report Released Date/Time: Jan 10, 2024 08:31 PM Reporting Lab: [address] [address] Performing Lab: [address] [address] GLUCOSE,BLOOD- poct (STL) 153 mg/dL H -Jan 10, 2024 04:15 PM [facility] GLUCOSE,BLOOD-poct (STL) Specimen Type: BLOOD Comment: Test Performed by: [id number] Meter #: [id number] Ordering Provider: LIDIA HUYNH Report Released Date/Time: Jan 10, 2024 05:05 PM Reporting Lab: [place] [address] [facility] [address] Performing Lab: [address] [address] GLUCOSE,BLOOD- poct (STL) 84 mg/dL -Jan 10, 2024 11:31 AM [facility] GLUCOSE,BLOOD-poct (STL) Specimen Type: BLOOD Comment: Test Performed by: [id number] Meter #: [id number] Ordering Provider: LIDIA HUYNH Report Released Date/Time: Jan 10, 2024 12:03 PM Reporting Lab: [place] [address] [facility] [address] Performing Lab: [address] [address] GLUCOSE,BLOOD- poct (STL) 99 mg/dL 72-Jan 10, 2024 04:45 AM [facility] GLUCOSE,BLOOD-poct (STL) Specimen Type: BLOOD Comment: Test Performed by: [id number] Meter #: [id number] Ordering Provider: LIDIA HUYNH Report Released Date/Time: Jan 10, 2024 05:29 AM Reporting Lab: [address] [address] Performing Lab: [address] [address] GLUCOSE,BLOOD- poct (STL) 109 mg/dL H 72-99 Jan 09, 2024 08:08 PM [facility] GLUCOSE,BLOOD-poct (STL) Specimen Type: BLOOD Comment: Test Performed by: [id number] Meter #: [id number] Ordering Provider: LIDIA HUYNH Report Released Date/Time: Jan 09, 2024 08:28 PM Reporting Lab: [address] [address] Performing Lab: [address] [address] GLUCOSE,BLOOD- poct (STL) 110 mg/dL H 72-99 Jan 09, 2024 04:19 PM [facility] GLUCOSE,BLOOD-poct (STL) Specimen Type: BLOOD Comment: Test Performed by: [id number] Meter #: [id number] Ordering Provider: LIDIA HUYNH Report Released Date/Time: Jan 09, 2024 04:34 PM Reporting Lab: [address] [address] Performing Lab: [address] [address] GLUCOSE,BLOOD- poct (STL) 119 mg/dL H 72-99 Jan 09, 2024 02:30 PM [facility] MAGNESIUM Specimen Type: PLASMA Comment: No hemolysis noted. Ordering Provider: TATI ZAVALA Report Released Date/Time: Jan 09, 2024 07:51 AM Reporting Lab: [address] [address] Performing Lab: [address] [address] MAGNESIUM 1.6 mg/dL 1.6-2.6 Jan 09, 2024 02:30 PM [facility] RENAL PANEL Specimen Type: PLASMA Comment: No hemolysis noted. Ordering Provider: TATI ZAVALA Report Released Date/Time: Jan 09, 2024 07:51 AM Reporting Lab: [place] [address] [facility] [address] Performing Lab: [address] [address] CREATININE 5.13 mg/dL H 0.7-1.3 UREA NITROGEN [...] Specimen Type: BLOOD Comment: Test Performed by: [id number] Meter #: [id number] Ordering Provider: LIDIA HUYNH Report Released Date/Time: Jan 09, 2024 12:38 PM Reporting Lab: [address] [address] Performing Lab: [address] [address] GLUCOSE,BLOOD- poct (STL) 98 mg/dL 72-99 Jan 09, 2024 07:15 AM [facility] GLUCOSE,BLOOD-poct (STL) Specimen Type: BLOOD Comment: Test Performed by: [id number] Meter #: [id number] Ordering Provider: LIDIA HUYNH Report Released Date/Time: Jan 09, 2024 07:58 AM Reporting Lab: [address] [address] Performing Lab: [address] [facility] [address] GLUCOSE,BLOOD- poct (STL) 86 mg/dL 72-99 Jan 08, 2024 09:04 PM [facility] GLUCOSE,BLOOD-poct (STL) Specimen Type: BLOOD Comment: Test Performed by: [id number] Meter #: [id number] Ordering Provider: LIDIA HUYNH Report Released Date/Time: Jan 08, 2024 09:47 PM Reporting Lab: [place] [address] [facility] [address] Performing Lab: [place] [address] [facility] [address] GLUCOSE,BLOOD- poct (STL) 90 mg/dL 72-99 Jan 08, 2024 09:01 PM [facility] HEP B CORE AB TOTAL. (STL) Specimen Type: SERUM No comment entered. Ordering Provider: EFREN TAYLOR Report Released Date/Time: Jan 08, 2024 02:35 PM Reporting Lab: [place] [address] [facility] [address] Performing Lab: [place] [address] [facility] [address] HEP B CORE AB TOTAL. (STL) Nonreactive Nonreactive Jan 08, 2024 09:01 PM [facility] HEPATITIS B SURFACE AB PNL Specimen Type: SERUM No comment entered. Ordering Provider: EFREN TAYLOR Report Released Date/Time: Jan 08, 2024 02:35 PM Reporting Lab: [place] [address] [facility] [address] Performing Lab: [place] [address] [facility] [address] HEP B Surface Ab-HBsAB (STL) REACTIVE m[IU]/mL Nonreactive HEP Bs AB-QUANT (STL) 63.22 m[IU]/mL Jan 08, 2024 09:01 PM [facility] HEP HB S Ag ([place]RI[place]) (STL) Specimen Type: SERUM No comment entered. Ordering Provider: EFREN TAYLOR Report Released Date/Time: Jan 08, 2024 02:35 PM Reporting Lab: [place] [address] [facility] [address] Performing Lab: [address] [address] HEP HB S Ag ([place]) (STL) Nonreactive Nonreactive Jan 08, 2024 04:47 PM [facility] GLUCOSE,BLOOD-poct (STL) Specimen Type: BLOOD Comment: Test Performed by: [id number] Meter #: [id number] Ordering Provider: LIDIA HUYNH Report Released Date/Time: Jan 08, 2024 05:09 PM Reporting Lab: [address] [address] Performing Lab: [place] [address] [facility] [address] GLUCOSE,BLOOD- poct (STL) 95 mg/dL 72-99 Jan 08, 2024 11:26 AM [facility] GLUCOSE,BLOOD-poct (STL) Specimen Type: BLOOD Comment: Test Performed by: [id number] Meter #: [id number] Ordering Provider: LIDIA HUYNH Report Released Date/Time: Jan 08, 2024 11:37 AM Reporting Lab: [address] [address] Performing Lab: [place] [address] [facility] [address] GLUCOSE,BLOOD- poct (STL) 105 mg/dL H 72-99 Jan 08, 2024 07:01 AM [facility] RENAL PANEL Specimen Type: PLASMA Comment: No hemolysis noted. Ordering Provider: LIZETTE GRIFFIN Report Released Date/Time: Jan 07, 2024 11:24 PM Reporting Lab: [place] [address] [facility] [address] Performing Lab: [address] [address] CREATININE 8.50 mg/dL H 0.7-1.3 UREA NITROGEN [...] Specimen Type: BLOOD Comment: Test Performed by: [id number] Meter #: [id number] Ordering Provider: LIDIA HUYNH Report Released Date/Time: Jan 08, 2024 06:48 AM Reporting Lab: [address] [address] Performing Lab: [address] [address] GLUCOSE,BLOOD- poct (STL) 86 mg/dL 72-99 Jan 07, 2024 11:58 PM [facility] RENAL PANEL Specimen Type: PLASMA Comment: No hemolysis noted. Ordering Provider: LIZETTE GRIFFIN Report Released Date/Time: Jan 07, 2024 11:38 PM Reporting Lab: [address] [address] Performing Lab: [address] [address] CREATININE 8.68 mg/dL H 0.7-1.3 UREA NITROGEN [...] Specimen Type: BLOOD Comment: Test Performed by: [id number] Meter #: [id number] Ordering Provider: LIDIA MOSCOSO Report Released Date/Time: Jan 07, 2024 11:47 PM Reporting Lab: [facility] [address] [place] [address] Performing Lab: [address] [address] GLUCOSE,BLOOD- poct (STL) 157 mg/dL H 72-99 [...] 07, 2024 11:24 PM Reporting Lab: [address] [address] Performing Lab: [address] [address] MRSA SURVL NARES DNA Negative Negative Jan 07, 2024 09:08 PM [facility] POTASSIUM Specimen Type: PLASMA Comment: No hemolysis noted. Ordering Provider: ANNA CALI Report Released Date/Time: Jan 07, 2024 08:38 PM Reporting Lab: [facility] [address] [place] [address] Performing Lab: [address] [address] POTASSIUM 5.7 meq/L H 3.5-5 Jan 07, 2024 07:30 PM [facility] URINALYSIS (STL-PB) Specimen Type: URINE No comment entered. Ordering Provider: ANNA CALI Report Released Date/Time: Jan 07, 2024 05:18 PM Reporting Lab: [address] [address] Performing Lab: [place] [id number] URINE COLOR Colorless Yellow U.BILIRUBIN Negative mg/dL [...] Jan 07, 2024 04:59 PM Reporting Lab: [place] [id number] Performing Lab: [place] [id number] BRAIN NATRIURETIC PEPTIDE 59.0 pg/mL 0-100 Jan 07, 2024 05:30 PM [facility] COVID-19 DIAGNOSTIC (FLU/RSV)(L) Specimen Type: NASOPHARYNX Comment: Qualitative real-time PCR [...] 07, 2024 04:59 PM Reporting Lab: [address] [address] Performing Lab: [address] [address] INFLUENZA A Negative Negative INFLUENZA B Negative [...] 07, 2024 04:59 PM Reporting Lab: [address] [address] Performing Lab: [address] [address] CREATININE 8.88 mg/dL H 0.7-1.3 UREA NITROGEN [...] Jan 07, 2024 04:59 PM Reporting Lab: [facility] [address] [facility] [address] Performing Lab: [facility] [address] [facility] [address] WBC 9.2 10*3/uL 3.6-11.2 RBC 3.81 10*6/uL [...] 04:00 PM ORYX ADMIT TOBACCO SCREEN NO [facility] Jun 25, 2022 03:24 PM VA-TOBACCO [...] Dec 17, 2022 ADVANCE DIRECTIVE BIJAN MERRITT [facility] Feb 09, 2020 ADVANCE DIRECTIVE DISCUSSION MELY LUCIANO [facility] Feb 02, 2018 ADVANCE DIRECTIVE BEAU ALTAMIRANO [facility] Nov 29, 2006 ADVANCE DIRECTIVE MARELY CHACON 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 READING PHYSICIAN: Madhu Patton M.D. -[id number] 01/07/2024 19:10 PDT [facility] National Teleradiology Program [phone] (For Medical Practitioner Use Only) Attention Patients / Veterans: If you have questions or concerns about these test results, please contact your ordering provider or primary care team. Primary Interpreting Staff: RADIOLOGY,OUTSIDE SERVICE, Staff Physician / RADIOLOGY,OUTSIDE SERVICE [facility] Encounter Notes: All associated encounter notes This section contains the clinical notes associated to the Encounter. 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: URGENCY: routine STATUS: COMPLETED Dialysis [place] Appointment on Jan 26, 2024@13:03 Patient: NAGI KATZ Treatment Date: 26-Jan-20243 Status: Discharged Latest Lab Result: URR: (, ) Kt/V: (, ) HgB: (, ) HCT: (, ) Diagnosis: End stage renal disease Patient Type: Inpatient Allergies: MORPHINE Resuscitate: [x] YES [ ] NO HD Summary Tables TREATMENT SUMMARY Treatment Start Time 26-Jan-2024 Treatment End Time 26-Jan-2024 1638 Duration(ordered): 3:30 Duration(manually adjusted): 3:35 Weights (Kg) and Fluid Removed (L): Date Pre Weight Target Weight Post Weight Excess Weight IDW Goal Weight Target UF Achieved UF Current 103.70 0.00 103.00 103.70 2.60 0.00 0.50 1.01 23-Jan-2024 101.90 0.00 101.10 101.90 -0.50 0.00 0.00 1.42 21-Jan-2024 102.80 0.00 102.40 102.80 0.00 0.00 500.00 Blood Pressures (mmHg) & Fluid intake (mL) during treatment: Date Pre BP Post BP Lowest BP Highest BP IVF Given (mL) PO Fluid (mL) Current Sitting 106/61 Standing 140/65 109/60 142/72 -- -- -- -- 23-Jan-2024 Sitting 173/78 Sitting 164/85 116/76 177/74 0.40 Standing 160/82 -- -- -- -- 21-Jan-2024 Sitting 126/69 Sitting 152/67 123/69 149/71 0.40 -- -- -- -- Pulse and Temp: Date Pre Pulse Post Pulse Lowest Pulse Highest Pulse Pre Temp Post Temp Current Sitting 63 Standing 72 57 67 97.6 -- -- -- -- 23-Jan-2024 Sitting 73 Sitting 61 58 71 97.4 97.5 Standing 71 -- -- -- -- 21-Jan-2024 Sitting 58 Sitting 60 57 61 97.7 97.8 -- -- -- -- HD Times Date Prescribed Time Achieved Time Treatment Start Treatment End Current 3:30 3:35 1303 1638 23-Jan-2024 3:30 3:31 1308 1640 21-Jan-2024 3:00 3:10 1259 1610 Day's Order _ Related Problem: End stage renal disease Access Type: Fistula Access Site: VIRGIE Backup Access: Backup Access Site: Needle Gauge: 16 gauge 1 Freezing: [ ] YES [x] NO Machine Type: Hitchita Gambro Isolation: [ ] YES [x] NO Conventional HD Prosthesis(kg): Wheelchair(kg): Target Weight(kg): 0.00 Duration(h): 3:30 or Target UF(kg): 0.50 Frequency(x/wk): 3.00 Dialysate Temp(C): 37.00 Dialysis Type: [ ] daytime [ ] nocturnal Prescribed BVP(L): Dialysate Type: Saline Inf. (mL): LAYOUT MAN Blood Flow(ml/min): Hemodiafiltr. Volume(l): Hemodiafiltr. Fluid Type: Fractional Urea Distribution Space: 0.00 Prescribed KT/V: Process: Hemodialysis Procedure: Daily dialysis treatment Dialyzer: Nipro Elisio - 19H Max. reuses: Dialyzer 2: Tubing: K+(mmol/L): 2 Ca+(mmol/L): 3 Glucose(mmol/L): Mg+(mmol/L): Profiles: Initial values: Ramping: Dialysate Flow(ml/min): 500.00 Blood Flow(ml/min): 200 Bicarb(mmol/L): 40 Na+(mmol/L): 138 UFR(kg/hr : ml/kg/hr): 0.00 : ? BTM Function: Comments: Ok to use Tablo [...] Value Comments Verified Verified Time Verified By [id number] Needle Gauge 16 gauge 1 UPDATE ORDER NO === Access ========= Access Type: Fistula [...] Port (min): 15 Cannulated [place]: 1 Staff: ESAU RENDON Cannulated Art: 1 Staff: ESAU RENDON General: Today's Assessment: PATIENT CANNULATED WITH 16G NEEDLES X2.....LABS DRAWN === Predialysis ===== Extra Treatment: [ ] YES [x] NO Received From: Staff On: ESAU RENDON Station: Room 04 Machine #: A - 03 Resp Caregiver: Treat Caregiver: Arrival Time: 26-Jan-2024 1245 Mode: walking By/With: unaccompanied Vital Signs Temp(C): 97.60 Resp: 18 Time: 1243 Sitting BP: 106/61 Sitting Pulse: 63 Time: BP: Pulse: Weights Measure Wt(kg): 103.70 Target Weight(kg): 0.00 Prosthesis Wt(kg): or Target UF(kg): 0.50 Wheelchair Wt(kg): Weight Change(kg): 2.60 Current Wt(kg): 103.70 Excess Weight(kg): 103.70 Total Fluid Admin(kg): Expected UF Vol(kg): 103.70 Target TMP(mm/Hg): UFR(kg/hr : ml/kg/hr): 29.63 : ? Patient Condition: 26-Jan-2024 1317 AMAN TALAVERA Confirmed correct pt, Labs at beginning of treatment Nursing Assessment: 26-Jan-2024 1328 ASH VILLAGOMEZ SPIKE [employer]KER PRE-ASSESSMENT Time of assessment [ MENTAL STATUS: [...] policy. No pain/distress noted or voiced Comments:[ Handwashing Topics covered with this education session include: Patient understands the following [ x ] The most common route for transmission of infection is through hands [ ] Handwashing is the single most important factor in preventing the spread of infection [ x ] WHEN TO WASH YOUR HANDS [ x ] Whenever your hands are visibly dirty [ ] Following any contact with blood or body fluids (i.e. urine, feces, sputum) [x ] After using the restroom [ ] Before taking your medications [ x ] Before preparing, handling, or eating food [ x ] Before and after dialysis Learner Type: Delivery Method: [ ] [...] Poor - Needs Assistance Comments: [ expressed understanding Acknowledged On: 26-Jan-2024 1327 By: ASH VILLAGOMEZ Pain: Acuity: 0 Type: Location: Measures: Heparin: Pump Start At: By: Hourly Rate: Bolus: Same Syringe: [ ] YES [x] NO Total in Syringe: Verified By: Time: Communication: Preferred Language: [place] Providier Proficient: [ ] YES [x] NO Drying Oven Tender Desired: [ ] YES [x] NO Offered: [ ] YES [x] NO === Dialysis Log = DIALYSIS LOG Start Date/Time: 26-Jan-2024 1303 Table 1: Dialysis Data Time BP MAP Pulse BFR BVP AP LAYOUT MAN TMP UFR TFR HEP Hep Com 1303 127/69 61 250 1.0 -90 120 25 0.40 : ? 0.03 0.0 1303 114/58 0.0 59 250 1.0 -90 120 25 0.40 : ? 0.03 0.0 1318 109/60 0.0 60 250 4.7 -90 130 25 0.40 : ? 0.13 0.0 1333 116/61 0.0 60 250 8.5 -90 130 25 0.40 : ? 0.23 0.0 1348 116/59 0.0 61 250 12.2 -90 130 25 0.40 : ? 0.33 0.0 1353 114/62 0.0 60 250 13.5 -90 130 20 0.40 : ? 0.35 0.0 1358 122/60 0.0 60 250 14.7 -90 130 25 0.40 : ? 0.38 0.0 1403 124/60 0.0 59 250 16.0 -90 130 25 0.40 : ? 0.43 0.0 1418 125/60 0.0 60 250 19.7 -90 130 -5 0.24 : ? 0.47 0.0 1433 120/64 0.0 59 250 23.5 -90 140 25 0.24 : ? 0.54 0.0 1448 112/62 0.0 59 250 27.2 -90 140 25 0.24 : ? 0.61 0.0 1503 135/64 0.0 58 250 31.0 -80 150 20 0.24 : ? 0.66 0.0 1510 0.0 1518 125/66 0.0 57 250 34.7 -90 140 0 0.24 : ? 0.73 0.0 1533 132/66 0.0 57 250 38.5 -80 140 20 0.24 : ? 0.78 0.0 1548 135/68 0.0 59 250 42.2 -80 140 25 0.24 : ? 0.85 0.0 1603 132/65 0.0 64 390 45.9 -190 230 10 0.24 : ? 0.90 0.0 1618 138/67 0.0 61 390 51.7 -190 220 5 0.24 : ? 0.97 0.0 1633 134/66 0.0 62 390 57.6 -190 230 5 0.10 : ? 1.01 0.0 1638 142/72 67 0 58.2 40 50 -30 0.00 : ? 1.01 0.0 1510 0.0 Table 2: Dialysate Bath Time DFR ADV Temp K Ca Na HC03 1303 500.00 35.50 2.00 3.00 0.00 0.00 1303 500.00 35.50 2.00 3.00 0.00 0.00 1318 500.00 35.40 2.00 3.00 0.00 0.00 1333 500.00 35.40 2.00 3.00 0.00 0.00 1348 500.00 35.50 2.00 3.00 0.00 0.00 1353 500.00 35.50 2.00 3.00 0.00 0.00 1358 500.00 35.50 2.00 3.00 0.00 0.00 1403 500.00 35.50 2.00 3.00 0.00 0.00 1418 500.00 35.50 2.00 3.00 0.00 0.00 1433 500.00 35.40 2.00 3.00 0.00 0.00 1448 500.00 35.50 2.00 3.00 0.00 0.00 1503 500.00 35.50 2.00 3.00 0.00 0.00 1510 1518 500.00 35.50 2.00 3.00 0.00 0.00 1533 500.00 35.50 2.00 3.00 0.00 0.00 1548 500.00 35.50 2.00 3.00 0.00 0.00 1603 500.00 35.50 2.00 3.00 0.00 0.00 1618 500.00 35.50 2.00 3.00 0.00 0.00 1633 500.00 35.50 2.00 3.00 0.00 0.00 1638 500.00 35.50 2.00 3.00 0.00 0.00 1510 Table 3: Patient Assessment Acknowledge Time Author [...] ] NO No pain/distress noted or voiced 26-Jan-2024 1510 AMAN TALAVERA [ ] YES [x] NO [x] YES [ ] NO No pain/distress noted or voiced [x] YES [ ] NO No pain/distress noted or voiced [x] YES [ ] NO No pain/distress noted or voiced [x] YES [ ] NO No pain/distress noted or voiced [ ] YES [x] NO No pain/distress noted or voiced [x] YES [ ] NO No pain/distress noted or voiced [x] YES [ ] NO Tx ended per policy. No pain/distress noted or voiced 26-Jan-2024 ASH VILLAGOMEZ [ ] YES [x] NO === Medication Log Medication Log Start Date/Time: 26-Jan-2024 Medication: Time: 1509 Nurse: ASH VILLAGOMEZ 2nd unstacker: Medication/Blood: LIDOCAINE 2.5/PRILOCAINE 2.5% CREAM Dosage/Units: Not given Route: Unused Amount: 0.00 IV Flush(mL): Admin Comments: Reason Not Given: Medication: Time: 1509 Nurse: AMAN TALAVERA 2nd unstacker: Medication/Blood: IRON SUCROSE 20MG/ML INJ Dosage/Units: 100.00 MG Route: IV PUSH Unused Amount: 0.00 IV Flush(mL): Admin Comments: [id number] Reason Not Given: === Events Log ===== Time Resolved Complication Comments Author Brigitte Spent [place] Notified Burke k'd Nurse === Postdialysis ==== Clotted: [ ] YES [x] NO Infiltrated: [ ] YES [x] NO Extra Treatment: [ ] YES [x] NO Procedure: Daily dialysis treatment Stop Date/Time: 26-Jan-2024 1638 Dialysis Time(hrs): 3:35 Staff Off: Effective Time(hrs): Resp Caregiver: Departure Time: 1705 By/With: transporter Mode: wheelchair Visit Disposition: Discharged Home (private dwelling, not an institution, no support services) Patient Sent To: Pain Acuity: 0 Type: Location Measures Measures Measures Weights Measured Wt.(kg): 103.00 Prosthesis Wt.(kg): Wheelchair Wt(kg): Post Dialysis Wt(kg): 103.00 Target Weight(kg): 0.00 Target UF(kg): 0.50 Removed Wt(kg): 0.70 Fluid Removed(kg): 1.01 Effective UFR (kg/hr:ml/kg/hr): 0.20 : 1.9 Dialysate Used(L): 107.50 Patient Status Temp(C): Resp: Standing BP: 140/65 Standing Pulse: 72 BP: Pulse: Lowest BP: 109/60 BV Processed: Heparin Total Ordered: 0.00 Total Infused: Left in Syringe: Verified At: By: 2nd unstacker: By: Fluid Intake Total Ingested(kg): Total HDF Administered(kg): Avg HDF(kg/hr): Hematocrit(%): Hemoglobin(mg/dL): KT/V: Relative Blood Volume(%): Final Effective Ionic Dialysance: Dialyzer Post Dial Rating: Not Clear-Most Acid Disinfect: Chemical Cycle Start At: Heat Cycle Start At: Patient Condition: 26-Jan-2024 1706 ASH VILLAGOMEZ a/ox2-3, Heart rate regular, Treatment tolerated without complication, Discharged via wheelchair Nursing Assessment: 26-Jan-2024 1658 ASH VILLAGOMEZ SPIKE MAKER POST-ASSESSMENT Time of assessment [ MENTAL STATUS: [...] or voiced Comments:[ Acknowledged On: Acknowledged By: === Preparation ===== Station: Room 04 Machine #: [id number] - [id number] MACHINE DISINFECTION Acid Cycle: 25-Jan-20240 Heat Cycle: 20-Jan-2024 151 Chemical Cycle: 25-Jan-2024 Disinfect Clear Status: MACHINE CHECKS Original All Steps Completed: [x] YES [ ] NO Alarm Test Complete: 26-Jan-2024 Alarms Audible: 26-Jan-2024 1230 Checked prescription: 26-Jan-2024 1230 Checked conductivity: 26-Jan-2024 1230 Double checked 26-Jan-2024 123 Patient identified: 26-Jan-2024 prescription: Time Out: 26-Jan-2024 Conductivity: Calcium: 3 Dialysate Temperature: 37.00 Potassium: 2 Bicarb: 40 Reading confirmation: 26-Jan-2024 Conductivity: pH: Replacement All Steps Completed: [x] YES [ ] NO Alarm Test Complete: 26-Jan-2024 Alarms Audible: 26-Jan-2024 Checked prescription: 26-Jan-2024 Checked conductivity: 26-Jan-20240 Double checked 26-Jan-2024 Patient identified: 26-Jan-2024 prescription: Time Out: 26-Jan-2024 Conductivity: K+: 2 pH: Ca+: 3 Dialysate Temp (C): 37.00 === Material ======== MATERIAL / DIALYZER REUSE Start Machine (#): A - 03 Time Failed: Replacement Machine: Replaced time: Reason: Dialyzer Label: Nipro Elisio - 19H Reprocessed #: Dialyzer Lot: Pre-dialysis Dialyzer Rating: Check 1: 26-Jan-2024 1230 ASH VILLAGOMEZ Check 2: 26-Jan-2024 1235 AMAN TALAVERA Location: [address] rust/ ASH VILLAGOMEZ RN REGISTERED NURSE Signed: 01/26/2024 17:17 ASH VILLAGOMEZ [facility]
[2024-12-05 00:28] LABS: Alanine Aminotransferase 37 U/L (6-50); Albumin Level 3.8 g/dL (3.5-5.1); Alkaline Phosphatase 110 U/L (38-126); Anion Gap 16 mmol/L (4-12); Aspartate Amino Transferase 24 U/L (17-59); Bilirubin,Total 0.6 mg/dL (0.2-1.3); Blood Urea Nitrogen 71 mg/dL (9-20); Calcium 8.3 mg/dL (8.4-10.2); Carbon Dioxide 18 mmol/L (22-30); Chloride 104 mmol/L (98-107); Estimated Glomerular Filt Rate 5; Glucose 155 mg/dL (65-110); Potassium 4.9 mmol/L (3.4-5.0); Sodium 138 mmol/L (137-145)
[2024-12-05 00:40] LABS: Troponin I 0.028 ng/mL (0.000-0.034)
[2024-12-05] MEDS: LACTATED RINGERS 1,000 ML 999 ML IV CONT (00:50)
[2024-12-05 01:16] LABS: Lactic Acid Reflex 1.6 mmol/L (0.7-2.0)
--- NOTE | 2024-12-05 01:18 | ED.SOB ---
HPI - SOB/Dyspnea General Chief Complaint: Shortness of Breath/Dyspnea Stated Complaint: Flu like symptoms Time Seen by Provider: 12/05/24 00:08 History of Present Illness HPI Narrative: 69-year-old male with a past medical history including end-stage renal disease on hemodialysis only Thursday and Thursday. Also has history of type 2 diabetes, paroxysmal AFib on Eliquis, hypertension, hyperlipidemia, benign prostatic hyperplasia. Patient still makes urine for urinates frequently. He has been doing with influenza and flu-like symptoms for last few days. Endorsing nauseousness and diarrhea. Feels generalized weakness and shortness of breath. Denies any worsening swelling. Has not had an appetite had decreased p.o. intake. Went to dialysis yesterday and did not receive any rub dialysis as they noted that he was hypertensive and lower than his dry weight so they proceeded with holding off on hemodialysis. Patient has been taking his medications appropriately including his carvedilol and Eliquis. Patient has completed dose of Tamiflu. Denies any fever chills. Nonproductive cough, endorses chest tightness without any chest pain Related Data Home Medications ?Medication ?Instructions ?Recorded ?Confirmed ?Last Taken ?Type apixaban 5 mg tablet 5 mg PO BID 12/04/22 10/25/24 Unknown History atorvastatin 80 mg tablet 80 mg PO HS 12/04/22 10/25/24 Unknown History calcitriol 0.5 mcg capsule 0.5 mcg PO 3XW 12/04/22 10/25/24 Unknown History ergocalciferol (vitamin D2) 50,000 1,000 unit PO DAILY 12/04/22 10/25/24 Unknown History unit tablet febuxostat 80 mg tablet (Uloric) 80 mg PO DAILY 12/04/22 10/25/24 Unknown History magnesium oxide 400 mg PO DAILY 12/04/22 10/25/24 Unknown History metoprolol succinate 200 mg 100 mg PO DAILY 12/04/22 10/25/24 Unknown History tablet,extended release 24 hr nifedipine 90 mg tablet,extended 90 mg PO DAILY 12/04/22 10/25/24 Unknown History release omeprazole magnesium 20 mg 20 mg PO DAILY 12/04/22 10/25/24 Unknown History tablet,delayed release (Prilosec OTC) semaglutide 1 mg/dose (4 mg/3 mL) 1 mg subcut WEEKLY 12/04/22 10/25/24 10/18/24 History subcutaneous pen injector (Ozempic) sodium bicarbonate 650 mg tablet 1,300 mg PO BID 12/04/22 10/25/24 Unknown History tamsulosin 0.4 mg capsule (Flomax) 0.4 mg PO BID 12/04/22 10/25/24 Unknown History Allergies Allergy/AdvReac Type Severity Reaction Status Date / Time morphine AdvReac Hallucinati Verified 10/27/24 12:25 ng Review of Systems Review of Systems: As reviewed above in HPI [facility] Past Medical History Medical History Chronic anticoagulation Gastroesophageal reflux disease Gout Hyperlipidemia Paroxysmal atrial fibrillation Type 2 diabetes mellitus End-stage renal disease on hemodialysis Obstructive sleep apnea on CPAP BMI greater than 30 Hypertension Surgical History Surgical History History of cholecystectomy History of appendectomy History of colostomy History of cardiac catheterization History of cardiac ablation for atrial fibrillation History of incisional hernia repair Family History Family History Mother Acute myocardial infarction, Onset Age: 65 Hypertension Father Acute myocardial infarction, Onset Age: 65 Heart disease Hypertension Sibling Heart disease Diabetes mellitus Social History Social History Social History: Surrogate medical decision maker: Kassy Cali, spouse. Code status: Full code. Smoking packs per day: 1 Smoking cigarettes per day: 20.0 Years smoked: 10 Smoking pack-years: 10.00 Smoking status: Former smoker Smoking end date: 05/12/13 Alcohol intake: former Substance use: never Do You Feel Safe in your Home?: Yes Lack of Transportation: No Lack of Food: Never True Current Housing: I Have Housing Concerned About Future Housing: No Difficulty Paying Gas/Electric Bills: No Difficulty Paying for Meds: No Currently Unemployed: No Education: Trade/Vocational Certificate Difficulty w/ Childcare or Family Care: No Living arrangements: with family Additional living arrangements comments: Lives with in [place]. They have 3 children. Occupation/Education: occupation Additional occupation/education comments: Previously retired from a [employer]; still working Spiritual care concerns: No Exam Narrative: GENERAL: [Well-appearing, well-nourished, and in no acute distress.] HEAD: [Normocephalic, atraumatic.] EYES: [PERRLA and EOMI.] ENT: Nares clear, no rhinorrhea or epistaxis. Mucous membranes moist. NECK: Supple. CHEST: [Clear to auscultation. No respiratory distress.] HEART: Bradycardic rate, irregular rhythm. No murmur heard. [Normal peripheral pulses.] ABDOMEN: [Soft, nondistended], [nontender], [No rigidity or guarding] EXTREMITIES: Normal range of motion. [No edema.] Left upper extremity AV fistula with palpable thrill. SKIN: Warm, dry, no rash. NEURO: [No focal deficits]. Alert and oriented [x3.] PSYCH: [Normal mood and affect.] Course Vital Signs Vital signs: Vital Signs Temperature 36.3 C L 12/04/24 22:44 Pulse Rate 55 L 12/04/24 22:44 Respiratory Rate 24 H 12/04/24 22:44 Blood Pressure 80/60 L 12/04/24 22:44 Pulse Oximetry 100 12/04/24 22:44 Temperature 36.3 C L 12/04/24 22:44 Pulse Rate 55 L 12/05/24 04:59 Respiratory Rate 18 12/05/24 04:59 Blood Pressure 119/61 12/05/24 04:59 Pulse Oximetry 97 12/05/24 03:33 MDM - SOB/Dyspnea MDM Narrative Medical decision making narrative: 69-year-old male with a past medical history including end-stage renal disease on hemodialysis Thursday and Thursday, type 2 diabetes, paroxysmal AFib on Eliquis, hypertension, hyperlipidemia, BPH. Presents to the ER for evaluation of shortness of breath, generalized malaise, decreased oral intake and appetite, weakness. He did not go to dialysis yesterday as they noted that he was hypotensive and below his dry weight is they held off on dialyzing him. He normally goes 2 times a week Thursday and Thursday and otherwise went the remainder of his sessions to previous weeks. Has been taking his medications including Coreg and Eliquis. He is not any acute distress, has been doing with fluid flu-like symptoms for last few weeks, completed Tamiflu. Endorses chest tightness right now as well as shortness of breath, no nausea but states he has been having some diarrheal illness. Decreased oral intake. Appears dry. Blood pressure initially 80/60 with a pulse rate of 55, temperature 36.3? C. 100% on room air. Suspicion presently is for potential volume depletion from dehydration, intravascular depletion, sepsis given his recent influenza illness, possibility of thromboembolic event although he does take Eliquis making this less suspicious. Potential for pneumonia or other infectious process. Patient was given 1 L lactated Ringer bolus for judicious hydration for concerns of volume depletion. Blood cultures lactic acid were drawn given his high risk factors, urine was straight catheterization obtain, urinalysis, chest x-ray, CBC, CMP, troponin, BNP, CRP and viral panel swabs obtained. CT angiography of his chest was ordered. Patient was re-evaluated frequently. After a small fluid bolus and sometime his blood pressure had normalized into the 120 and 130 systolic range. Heart rate also came up into the mid to upper 50s. Patient had symptomatic resolution was no longer feeling any shortness of breath or malaise. Patient did tell me he took Coreg prior to arrival with this could be causing his hypotension and bradycardia as it causes alpha and beta blockade. The gentle hydration also did replenished his vascular status. His workup is largely benign. No leukocytosis or significant anemia worsened baseline. Normal platelet count. His chemistry panel shows BUN and creatinine reflective of normal renal dysfunction, no electrolyte deficiencies otherwise. Normal glucose, negative lactic acid. Negative LFTs. BNP is mildly elevated 1500, negative C-reactive protein. Patient did test positive for influenza which he is already aware of. Completed his Tamiflu course. EKG shows sinus bradycardia but no signs of acute ischemia. No significant interval change compared to prior. Patient was re-evaluated frequently and still remained asymptomatic with normal vital signs. CT imaging shows no pulmonary embolism, no acute findings in the chest, chest x-ray shows some cardiomegaly but no acute findings such as pneumonia or pneumothorax. Given patient's for resolution which is minor hydration I believe he could be intravascularly depleted versus combination of volume losses from his influenza recently. Did make recommendations to adjust his medications and stop taking Coreg especially when causes him to have low blood pressure. Patient and family were made aware of the workup findings here and were comfortable with going home given the unremarkable findings and reassuring improvement with fluids. No indications for admission at this time and they were given very strict return precautions and close follow-up. Medical Records Attestation: I reviewed the patient's medical records. Lab Data Attestation: I reviewed the patient's lab results. 12/04/24 23:56 12/04/24 23:56 Labs: Lab Results 12/04/24 12/05/24 Range/Units 23:56 00:53 WBC 4.9 (4.5-10.0) K/mm3 RBC 3.63 L (4.6-6.20) M/mm3 Hgb 11.1 L (14.0-18.0) g/dL Hct 33.4 L (42.0-52.0) % MCV 92.0 (80-100) fl MCH 30.6 (26-34) pg MCHC 33.2 (32-36) g/dl RDW 12.4 (11.5-14.5) % Plt Count 224 (150-375) k/mm3 MPV 10.6 H (7.4-10.4) fl Immature Gran % (Auto) 0.4 (0-0.5) % Neut % (Auto) 56.5 (45.5-73.1) % Lymph % (Auto) 31.0 (18.3-44.2) % Republic % (Auto) 9.0 H (2.6-8.5) % Eos % (Auto) 2.9 (0-4.4) % Baso % (Auto) 0.2 (0.2-1.2) % Lymph # (Auto) 1.52 (0.9-3.2) K/mm3 Republic # (Auto) 0.4 (0.1-0.6) K/mm3 Eos # (Auto) 0.1 (0-0.3) K/mm3 Baso # (Auto) 0.0 (0.0-0.1) K/mm3 Abs Immat Gran (auto) 0.02 (0.00-0.031) K/mm3 Absolute Neuts (auto) 2.8 (1.3-6.7) K/mm3 Absolute Nucleated RBC 0.000 (0.0-0.012) K/mm3 Nucleated RBC % 0.0 (0.0-0.2) % PT 15.4 H (11.1-14.7) Seconds INR 1.2 APTT 37.4 H (22.3-36.8) Seconds Sodium 138 (137-145) mmol/L Potassium 4.9 (3.4-5.0) mmol/L Chloride 104 (98-107) mmol/L Carbon Dioxide 18 L (22-30) mmol/L Anion Gap 16 H (4-12) mmol/L BUN 71 H D (9-20) mg/dL Creatinine 9.86 H (0.7-1.3) mg/dL Estim Creat Clear Calc Not Reportable Estimated GFR 5 L (59 - ) Glucose 155 H (65-110) mg/dL Lactic Acid 1.6 (0.7-2.0) mmol/L Calcium 8.3 L (8.4-10.2) mg/dL Total Bilirubin 0.6 (0.2-1.3) mg/dL AST 24 (17-59) U/L ALT 37 (6-50) U/L Alkaline Phosphatase 110 (38-126) U/L Troponin I 0.028 (0.000-0.034) ng/mL C-Reactive Protein 1.6 H (<1.0) mg/dL NT-Pro-B Natriuret Pep 1500 H (19.9-100) pg/mL Total Protein 7.0 (6.3-8.2) g/dL Albumin 3.8 (3.5-5.1) g/dL Influenza A (RT-PCR) Positive A (Negative) Influenza B (RT-PCR) Negative (Negative) RSV (RT-PCR) Negative (Negative) SARS-CoV-2 RNA (RT-PCR) Negative (Negative) Imaging Data Attestation: I personally reviewed and interpreted this imaging study as follows: My impression: No evidence of pulmonary embolism, pneumonia or pneumothorax. Cardiomegaly is seen. Discharge Plan Discharge Clinical Impression: Intravascular volume depletion, Flu, Transient hypotension, History of end stage renal disease Patient Disposition: Home, Self-Care Condition: Stable Instructions: Antibiotic Form Additional Instructions: Your workup today is actually very reassuring, no signs of active infection, chest CT shows no pulmonary embolism or blood clot. No pneumonia. We gave you very gentle fluid bolus and your pressures improved without any other intervention. I would recommend you stop taking her Coreg or carvedilol before dialysis sessions and stop taking it if your blood pressure is lower than 120/60 as it causes too much hypotension and low blood pressure readings which are likely causing her symptoms. Continue going to her regular dialysis on Thursday and Thursday. If you have any new or worsening concerns, back to the ER for evaluation. Patient Language: Vietnamese Prescriptions: No Action atorvastatin 80 mg Tablet 80 mg PO HS ergocalciferol (vitamin D2) 50,000 unit Tablet 1,000 unit PO DAILY calcitriol 0.5 mcg Capsule 0.5 mcg PO 3XW Rx Instructions: administer after dialysis on dialysis days febuxostat [Uloric] 80 mg Tablet 80 mg PO DAILY apixaban 5 mg Tablet 5 mg PO BID nifedipine 90 mg Tablet Extended Release 90 mg PO DAILY metoprolol succinate 200 mg Tablet Extended Release 24 Hr 100 mg PO DAILY tamsulosin [Flomax] 0.4 mg Capsule 0.4 mg PO BID sodium bicarbonate 650 mg Tablet 1,300 mg PO BID omeprazole magnesium [Prilosec OTC] 20 mg Tablet,Delayed Release (Dr/Ec) 20 mg PO DAILY magnesium oxide 400 mg magnesium Tablet 400 mg PO DAILY Ozempic 1 mg/dose (4 mg/3 mL) Pen Injector 1 mg SUBCUT WEEKLY Rx Instructions: taken on Thursday Follow-up/Referrals: [facility] [Primary Care Provider] - Stand Alone Forms: Work/School Release IP Time of Disposition: 05:13
[2024-12-05 01:24] LABS: NT Pro B Type Natriuretic Pept 1500 pg/mL (19.9-100)
[2024-12-05 01:25] LABS: INR 1.2; Prothrombin Time 15.4 Seconds (11.1-14.7)
[2024-12-05 01:26] LABS: Partial Thromboplastin Time 37.4 Seconds (22.3-36.8)
[2024-12-05 01:36] LABS: CRP 1.6 mg/dL (<1.0)
[2024-12-05 01:42] LABS: Influenza A QL RT-PCR Positive (Negative); Influenza B QL RT-PCR Negative (Negative); RSV RNA, RT-PCR Negative (Negative); SARS-CoV-2 RNA PCR Negative (Negative)
[2024-12-05 03:33] VITALS: BP 122/58; PULSE 49; RESP 12; O2SAT 97
[2024-12-05 04:59] VITALS: BP 119/61; PULSE 55; RESP 18
[2024-12-05 05:32] VITALS: BP 106/58; PULSE 53; RESP 15; O2SAT 98
== END 2024-12-05 05:33 | disposition home or self-care (01) ==
PROVIDERS: Emergency Provider Student in an Organized Health Care Education/Training Program
DX: E86.9 Volume depletion, unspecified (principal); I95.9 Hypotension, unspecified; J11.1 Influenza due to unidentified influenza virus with other respiratory manifestations; Z20.822 Contact with and (suspected) exposure to COVID-19; E11.22 Type 2 diabetes mellitus with diabetic chronic kidney disease; I12.0 Hypertensive chronic kidney disease with stage 5 chronic kidney disease or end stage renal disease; N18.6 End stage renal disease; Z99.2 Dependence on renal dialysis; I48.0 Paroxysmal atrial fibrillation; E78.5 Hyperlipidemia, unspecified; K21.9 Gastro-esophageal reflux disease without esophagitis; N40.0 Benign prostatic hyperplasia without lower urinary tract symptoms; M10.9 Gout, unspecified; G47.33 Obstructive sleep apnea (adult) (pediatric); Z87.891 Personal history of nicotine dependence; Z90.49 Acquired absence of other specified parts of digestive tract; Z79.01 Long term (current) use of anticoagulants; Z79.899 Other long term (current) drug therapy; Z79.85 Long-term (current) use of injectable non-insulin antidiabetic drugs; I51.7 Cardiomegaly; R00.1 Bradycardia, unspecified; I45.10 Unspecified right bundle-branch block
CPT/HCPCS: 36415; 71045; 71275; 80053; 83605; 83880; 84484; 85025; 85610; 85730; 86140; 87040; 87637; 93005; 96360; 99284; J7120; Q9967

== ENCOUNTER 2025-07-10 11:14 | Outpatient (NON) | payer MEDICARE, SELFPAY ==
--- OUTSIDE RECORDS SUMMARY | 2025-07-10 12:01 | XMS_ITS | Encounter Summary ---
Author Organization [facility] Care Address [address] [place] [address] Phone Care Team Providers Care Drencher Name Role Phone Thao Mcqueen MD Primary Care Provider [phone] Encounter Details Date Type Department Care Team (Late st Contact Info) Description 06/13/[address] [facility] - Surgery Specialty - Transplant [address] [place] [address] Anna Sellers [address] [place] [address] Social History Tobacco Use Types Packs/Day Years Used Date Smoking Tobacco: Never Assessed Abuse Risk Answer Date Recorded Are you in an UNsafe relationship? Not on file 11/24/2024 Does your partner/boyfriend or girlfriend hit, kick, hurt, or threaten you? Not on file 11/24/2024 Have you suffered any injury as a result of abuse in the past year? Not on file 11/24/2024 Does your partner/boyfriend or girlfriend ever try to control you by threatening you or your family? Not on file 025 Are you currently being forc ed to engage in sexual activity? Not on file 11/24/2024 Are you being abused or thre atened in your work or home environment? Not on file 11/24/2024 Are you being forced to work? Not on file Is the patient a d ependent adult ? Does not apply 11/24/2024 Do you feel unsafe at home? Not on file 11/12 Has anyone tried to force yo u to sign papers or to use your money against your will? 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 Gender Identity Not on file Sexual Orientation Not on file documented as of this encounter Last Filed Vital Signs Vital Sign Reading Time Taken Comments Blood Pressure - - Pulse - - Temperature - - Respiratory Rate - - Oxygen Saturation - - Inhaled Oxygen Concentration - - Weight - - Height 175.3 cm (5' 9) 06/13/2025 3:00 PM CDT Body Mass Index - - documented in this encounter Plan of Treatment Not on file documented as of this encounter Visit Diagnoses Not on filedocumented in this encounter Care Teams Drencher Relationship Specialty Start Date End Date Thao Mcqueen MD [address] [place] [address] PCP - General 08/30/24 documented as of this encounter
--- OUTSIDE RECORDS SUMMARY | 2025-07-10 12:01 | XMS_ITS ---
Author Organization [facility] Address [address] [place] [address] Care Team Providers Care Outgoing Inspector Name Role Phone None, Physician Primary Care Provider Unavailabl e Transplant Episode Kidney Recipient [facility] ([place], [place]) - [facility] Organ Received: Left Kidney Transplanted on 06/25/2025 Marked as Active Follow-up on 06/25/2025 Kidney CoordinatorMel Ritchie RN Phone: N/A Fax: N/A Email: N/A [place] Organ Diagnosis Organ Primary Contributory Kidney Diabetes Mellitus - Type II Hype rtensive Nephrosclerosis Donor Information Organ ABO Source Meets Risk Criteria HLA Match Mismatches Cross Match Left Kidney Transplanted B DBD A: 1 B: 2 DR: 1 T cell (Negative) B cell (Negative) Left Kidney Donor Serology Results Anti-CMV CMV IgG: Positive EBV IgG EBV VCA IgM: Negative EBV VCA IgG: Positive Anti-HBcAb HBC Total: Negative HBsAg HBsAg: Negative HBV DNA HBV DNA: Negative Anti-HCV HCV: Negative Anti-HIV I/II HIV-1: Not Done RPR/VDRL RPR: Not Done EBV IgM EBV VCA IgM: Negative HBsAb HBsAb: Not Done Toxoplasm a No results on file SARS CoV-2 No results on file Care Team Name Role Phone Fax Email Mel Ritchie RN Kidney Coordinator N/A N/A N/A Angela Augustin Referring Physician N/A N/A N/A Kenia Carroll Targeting Acquisition Officer N/A N/A N/A Cesilia Rivera LMSW [facility] Office Supervisor [phone] N/A N/A Events Post-Transplant Pre-Transplant Admitted: 01/15/2025 Referred: 11/12/2022 Transplanted: 06/25/2025 Evaluation began: 3 Discharged: 06/30/2025 Committee: 12/10/2023 UNOS qualified: 01/21/2019 Center waitlisted: 4 Dialysis History Dialysis History Start End Type Comments Center 05/01/2025 06/25/2025 [facility] 02/15/2024 06/25/2025 In-center Hemodialysis [facility] In-center Hemodialysis T/R/S [facility] Dialysis Center Information Center Phone Fax Address [facility] [phone] [address] [facility] [address] [facility] [phone] [address] [address] [facility] [phone] [facility] [address] [facility] [address]
--- OUTSIDE RECORDS SUMMARY | 2025-07-10 12:01 | XMS_ITS | Clinical Summary ---
Author Organization [facility] [employer] Address [address] [place] [address] Care Team Providers Care Stations Superintendent Name Role Phone None, Physician Primary Care Provider Unavailabl e Source Comments [facility],non-owned Affiliates and Associated Physician Practices is amultiple site organization consisting of ambulatory clinics and hospital sitesin [place], [place], [place] and [place]. This disclosure is being madepursuant to the Care Everywhere program and may not contain all information available regarding this patient. Last updated 18.[facility] [employer] Allergies Active Allergy Reactions Criticality Noted Date Comments Adhesive Sensitivity Rash,Itching Medium 06/25/2025 Live Vaccines (Immunodeficiency) Other 06/26/2025 Contraindicated due renal transplant Morphine Other Medium 06/30/2023 Makes him incoherent, hallucinations Medications * Be aware that medications may not be up to date on this document. Alwaysverify current medications with the patient. febuxostat (ULORIC) 40 MG tablet Take 1 (one) tablet by mouth once daily Active atorvastatin (LIPITOR) 80 MG tablet Take 1 tablet by mouth at bedtime 020 Active olopatadine (Pataday) 0.2 % ophthalmic solution Instill 1 (one) drop into both eyes once daily 024 Active mycophenolate (Myfortic) [address] tablet Take 2 (two) tablets by mouth 2 times daily 120 tablet 11 06/30/20 25 3:22 PM CDT 025 Active predniSONE (Deltasone) 5 MG tablet Take 1 (one) tablet by mouth once daily 30 tablet 06/30/20 3:22 PM CDT 025 Active sulfamethoxazo le-trimethopri m (Bactrim DS; Septra DS) 800-160 MG tablet Take 1 (one) tablet by mouth every Thursday, Thursday & Thursday 12 tablet 5 06/30/20 3:22 PM CDT 025 Active acetaminophen (Tylenol) 325 MG tablet Take 2 (two) tablets by mouth every 4 hours as needed for Fever or Pain Maximum allowable Acetaminophen amount = 4 Grams (4000 mg) / 24 hours. 025 Active aspirin (Aspirin) 81 MG chew tablet Take 1 (one) tablet by mouth once daily (chew and swallow) 30 tablet 06/30/20 3:22 PM CDT 025 Active calcium carbonate (Tums) 500 MG chew tablet Take 1 (one) tablet by mouth 2 times daily with morning and evening meal (chew and swallow) 60 tablet Active cetirizine (ZyrTEC) 10 MG tablet Take 1 (one) tablet by mouth once daily 30 tablet 06/30/20 3:22 PM CDT 025 Active valGANciclovir (Valcyte) 450 MG tablet Take 1 (one) tablet by mouth once daily 30 tablet 2 06/30/20 3:22 PM CDT 025 Active tacrolimus ER 24hr (Envarsus XR) 1 MG tablet Take 8 (eight) tablets by mouth once daily Swallow whole. Do not crush or chew tablets. 240 tablet 06/30/20 3:22 PM CDT 025 Active carvedilol (Coreg) 12.5 MG tablet Take 1 (one) tablet by mouth 2 times daily with morning and evening meal 60 tablet 06/30/20 3:22 PM CDT 025 Active NIFEdipine CR 24hr (Adalat CC) 60 MG tablet Take 1 (one) tablet by mouth 2 times daily 60 tablet 06/30/20 3:22 PM CDT 025 Active fluticasone propionate (Flonase) 50 MCG/ACT nasal spray [place] 2 (two) sprays into each nostril once daily as needed Active lidocaine (Lidoderm) 5 % patch Apply 1 (one) patch to skin once daily Apply patch to most painful area and remove after 12 hours. May reapply a new patch 12 hours later. Active docusate sodium (Colace) 100 MG capsule Take 1 (one) capsule by mouth once daily as needed for Constipation Active Additional Information Patient not taking.Reason: Patient adjusted, Reported on 07/07/2025 polyethylene glycol 3350 (Miralax) 17 g packet Take 17 (seventeen) g by mouth once daily as needed for Constipation Active Additional Information Patient not taking.Reason: Patient adjusted, Reported on 07/07/2025 cyclobenzaprin e (Flexeril) 10 MG tablet Take 1 (one) tablet by mouth 3 times daily as needed for Muscle Spasms 30 tablet 06/30/20 3:22 PM CDT Active pantoprazole EC (Protonix) 40 MG tablet Take 1 (one) tablet by mouth once daily 30 tablet 11 06/30/20 3:22 PM CDT 025 Active insulin aspart (NovoLOG) pen Inject 0 (zero) Units to 12 (twelve) Units subcutaneously 3 times daily with meals 15 mL 1 06/30/20 3:22 PM CDT 025 Active insulin pen needle (Novofine 31) 31G X 5 MM needleIndicati ons:Type 2 diabetes mellitus with other kidney complication, 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 assisted insulin use (HCC) Use 1 (one) Each as instructed 3 times daily 100 Each 1 06/30/20 3:22 PM CDT Active pregabalin (Lyrica) 25 MG capsule Take 1 (one) capsule by mouth at bedtime 30 capsule 06/30/20 3:22 PM CDT 025 Active Blood Glucose Monitoring Suppl (Blood Glucose Monitor System) w/Device KITIndications :Type 2 diabetes mellitus with other kidney complication, 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 assisted insulin use (HCC) Use 1 Each as directed 1 Each Active lancetsIndicat ions:Type 2 diabetes mellitus with other kidney complication, 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 assisted insulin use (HCC) Use 1 (one) Each 3 times daily 100 Each 025 Active blood glucose test stripIndicatio ns:Type 2 diabetes mellitus with other kidney complication, 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 (HCC) Use 1 (one) strip 3 times daily 100 strip 025 Active sodium bicarbonate 650 MG tablet Take 1 (one) tablet by mouth 2 times daily 60 tablet 025 Active vitamin D3 (CHOLECALCIFER OL) 25 MCG (1000 UNITS) tablet Take 1 (one) tablet by mouth once daily 2024 Discontinued(C linical Decision) sodium bicarbonate 650 MG tablet Take 1 (one) tablet by mouth once daily 2024 Discontinued(C linical Decision) magnesium oxide (MAG-OX) 400 MG tablet Take 1 tablet by mouth 2 times daily 60 tablet 020 2024 Discontinued(C linical Decision) NIFEdipine CR 24hr (Adalat CC) 90 MG tablet Take 1 (one) tablet by mouth once daily Take on an empty stomach. 2024 Discontinued(C linical Decision) calcitriol (Rocaltrol) 0.25 MCG capsule Take 4 (four) capsules by mouth once daily 2024 Discontinued(C linical Decision) renal vitamin (Dialyvite) tablet Take 1 (one) tablet by mouth every evening 2024 Discontinued(C linical Decision) amLODIPine (Norvasc) 10 MG tablet Take 1 (one) tablet by mouth once daily 2024 Discontinued(C linical Decision) tamsulosin (Flomax) 0.4 MG capsule Take 1 (one) capsule by mouth 2 times daily At the same time every day after a meal. 2024 Discontinued(C linical Decision) carvedilol (Coreg) 25 MG tablet Take 1 (one) tablet by mouth 2 times daily with morning and evening meal 2024 Discontinued(C linical Decision) omeprazole (PriLOSEC) 20 MG capsule Take 1 (one) capsule by mouth daily before breakfast 2024 Discontinued(C linical Decision) semaglutide 1 MG/ML vial Inject 1 (one) mg subcutaneously every 7 days 2024 Discontinued(C linical Decision) tacrolimus ER 24hr (Envarsus XR) 1 MG tablet Take 12 (twelve) tablets by mouth once daily Swallow whole. Do not crush or chew tablets. 360 tablet 11 2024 Discontinued valGANciclovir (Valcyte) 450 MG tablet Take 2 (two) tablets by mouth once daily 60 tablet 2 025 2024 Discontinued doxazosin (Cardura) 2 MG tablet Take 1 (one) tablet by mouth at bedtime 30 tablet 11 06/30/20 25 3:22 PM CDT 025 2024 Discontinued(C linical Decision) senna (Senokot) 8.6 MG tablet Take 2 (two) tablets by mouth once daily as needed for Constipation 2024 Discontinued(T x Complete) sodium - potassium phosphates (K Phos Neutral) 155-852-130 MG tablet Take 2 (two) tablets by mouth 2 times daily 120 tablet 11 06/30/20 25 3:22 PM CDT 2024 Discontinued(C linical Decision) amoxicillin (Amoxil) 500 MG capsule Take 1 (one) capsule by mouth 3 times daily for 3 days 9 capsule 06/30/20 25 3:22 PM CDT 2024 Discontinued(T x Complete) pregabalin (Lyrica) 25 MG capsule Take 1 (one) capsule by mouth at bedtime 30 capsule 3 2024 Discontinued(C linical Decision) oxyCODONE, immediate release, (Roxicodone) 5 MG tabletIndicati ons:ESRD (end stage renal disease) (HCC) Take 1 (one) tablet by mouth every 6 hours as needed for Pain 12 tablet 2024 Discontinued(D iscontinued by Another Clinician) pregabalin (Lyrica) 25 MG capsule Take 1 (one) capsule by mouth at bedtime 14 capsule 025 2024 Discontinued pregabalin (Lyrica) 25 MG capsule Take 1 (one) capsule by mouth at bedtime for 30 days 30 capsule 025 2024 Discontinued(D iscontinued by Another Clinician) Blood Glucose Monitoring Suppl (Blood Glucose Monitor System) w/Device KITIndications :Type 2 diabetes mellitus with other kidney complication, 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 assisted insulin use (HCC) Use 1 Each as directed 1 Each 025 2024 Discontinued(Bianca fallon Decision) blood glucose test stripIndicatio ns:Type 2 diabetes mellitus with other kidney complication, 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 assisted insulin use (HCC) Use 1 (one) strip 3 times daily with meals 90 strip 025 2024 Discontinued(Binaca fallon Decision) lancetsIndicat ions:Type 2 diabetes mellitus with other kidney complication, 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 assisted insulin use (HCC) Use 1 (one) Each 3 times daily 90 Each 025 2024 Discontinued(Bianca fallon Decision) oxyCODONE, immediate release, (Roxicodone) 5 MG tablet Take 1 (one) tablet by mouth every 6 hours as needed 20 tablet 06/30/20 3:22 PM CDT 025 2024 Discontinued(T x Complete) Active Problems Problem Noted Date Diagnosed Date Kidney transplant status 06/25/25 DBD 06/28/2025 Overview (06/28/2025): Referring Physician: Dr. Angela Augustin Transplant Date: 06/25/2025 Donor: UNOS ID: [id number] Match ID: [id number] Criteria: DBD KDPI: 31% CMV D+/R+ EBV D+/R+ Donor viral status: HBV(-), HCV(-) HLA Recipient: A(2, 34) B(18, 51) DR(7, 2) Donor: A(2, 33) B(13, 72) DR(7, 4) cPRA: 0% Pre-Transplant Summary: ESRD cause: HTN Active on wait list 12/30/23 Kidney Transplant preformed by: Dr Alfaro Pre- transplant Risk labs: Recent Labs Component Name 06/25/25 0229 HIV12 Non-reactive HEPBCAB Non-reactive HEPBSAG Negative HCVRNARPT Not detected DONORHCV Negative Immunosuppression: Anti-thymocyte globulin 100 mg IV POD 0, 100 mg POD 1, and 100 mg POD 2 (total 3 mg/kg), (pre-medicate with diphenhydramine and acetaminophen 30-60 minutes prior to each dose) 2. Methylprednisolone IV 500 mg POD 0, 250 mg POD 1, 125 mg POD 2, 60 mg POD 3, 30 mg POD 4. Then prednisone 5 mg PO daily starting POD 5 3. Myfortic 720 mg PO x 1 pre-op, then Myfortic 360 mg PO every 12 hours 4. Tacrolimus XR (Envarsus) 6 mg (0.08 mg/kg) PO daily dose adjusted to goal trough level 8-10 ng/mL Anticipated Opportunistic Infectious Prophylaxis: PJP: Sulfamethoxazole/trimethoprim 800mg/160mg PO MWF x 6 months 2. CMV Risk status: Moderate risk. Start Valganciclovir 450 mg MWF for a total of 3 months post-transplant on POD7 or discharge. (May require renal dose adjustment) 3. Antifungal prophylaxis: Not indicated 4. Donor (+) urine cx: Recommend Amoxicillin 500 mg BID x 7 days for possible transmission Adjustments: Readmissions: Biopsies: Stent Removal scheduled: Removed: PD Catheter Removed:N\A UNOS required risk labs ordered for draw 28-56 days post txp. Due: 07/23- 08/30/2025 No results for input(s): DONORHIVHCV in the last 17403 hours. 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 Kemal Cali 1955 Referring Risk Control Director: Angela Augustin Listing Date: 12/30/2023 Dialysis Info: [...] CT ALERTS: Listed for Hep C kidneys Front Office Representative[facility]/t DM2 and [...] records from Dr. Veloz at [facility] in [place] with respect to the laparotomy, lysis of [...] Flores for the referral. Ban Alfaro MD fruit picker machine operator Transplant & HPB Surgery Transplant Surgery Clinic [...] Lt heart Cath and cardiology appointment at [facility] for A. Fib./Abelation, iRBBB and Lt [...] ALKPHOS 97 - 120 - 123 ALT - 18 - 30 AST 16 - [...] followup in [facility]. Wendy Ordoñez PA-C Physician Merchandise Marker in Internal Medicine Sampson Holloway MD Professor of Internal Medicine No orders of the defined types were placed in this encounter. Cardiology: 10/17/2024 Assessment 1. Pre-kidney transplant, listed 2. 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) 3. ESRD (end stage renal disease) (HCC) 4. Hypertension, unspecified type 5. Type 2 diabetes mellitus with other kidney complication, 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 (HCC) 6. Atrial fibrillation, unspecified [...] of the time was also spent in [id number] interaction with the patient as well as [...] pre-kidney transplant evaluation. - Case request for [facility] placed - Follow up after [facility] completed Please note, recommendations are not final until attested/co-signed by the attending physician. Thank you for your consultation, please do not hesitate to contact us with any questions or concerns. Daniel Lay MD Cardiovascular Diseases Fellow PGY-4 [facility] Cardiology: 12/12/2022 (consult from ED visit) [facility] Cardiology: 02/12/2022 [facility] Cardiology: 03/19/2021 Pertinent Previous Committee Presentations: 11/24/2024 [...] Reviewed cardiology notes from Dr Khanna and [facility] . Pt on Eliquis d/t A-Fib; ablation completed. [facility] completed 03/03/24 - normal coronaries. Reviewed [...] mg/kg Committee Discussion Details: Pt brought to [facility] to discuss possible listing. -Reviewed PMH and [...] alert to complete if liver enzymes rise. -EZEKIEL eval note pending. Per Pari FALCON, post [...] NO LONGER DEPRESSED IN ANTEROLATERAL LEADS Echo: 01/26/2025 (full report scanned in Media 04/17/25) NM Stress: 02/01/2025 LHC: 03/03/2024 Conclusion The coronary vessels are normal. [...] or text me on my cell phone [phone]. I appreciate the opportunity to participate in the care of your patient and look forward to being of service in the future as well. Sincerely, Kristel White MD, PhD, [facility] Manager Artsteam shovel operating engineer CXR: 08/05/2024 Findings/Impression: . No focal consolidation, [...] suggestion of sludge on EUS. Findings: The elevator service technician film was normal. The esophagus was successfully [...] stent, this can be done at the [facility]. - Please avoid NSAIDs (i.e Motrin, Aleve, [...] remain persistently elevated. - [facility] - Discussed results with Dr. Chappell. Please followup with him at the [facility] - Return to primary care physician as previously scheduled. - In the unusual situation that you develop abdominal pain, bleeding or other significant problems in the days following this procedure please call my office at [phone] to speak to my nurses. After hours and evenings please call [phone] and speak to the GI fellow station engineer chief. Please tell them that Dr. Freeman did [...] this procedure please call my office at [phone] to speak to my nurses. After hours and evenings please call [phone] and speak to the GI fellow station engineer chief. Please tell them that Dr. Freeman did [...] Impression: It is the impression of this foster care social worker that Kemal Cali has several [...] plan. Send financial assistance resources to email [email or web address] Moving to [address] [place] [address] Plan: vegetable ii farmworker to provide supportive services as needed. Patient remains a reasonable candidate for transplant from a psychosocial perspective. Psychiatric Consult Recommended: No Transplant Gambling Counsellor: Cesilia Rivera LMSW Abdominal Transplant Gambling Counsellor [phone] 2023 Caregivers: Primary is brother Nahum, Pt states He has a lot of options re:secondary. Took the AUTOMATION ENGINEER forms to complete and return Call from pts ex- Lynnette who confirmed as a willing caregiver. She will return the forms matt. Answered questions about living donation and she requested the website to be sent to her email at [email or web address] : 11/23/2024 Transplant Nutrition Evaluation BMI: Body [...] low processed food eating Waist 2023: 44 11/14 Monitoring: Weight Diet Compliance Re-Evaluation: Annual f/u if listed or per Transplant Team Referral Enid Sandoval RD/LD Items Still Pending: Intestinal adhesions with complete obstruction 0 01/28/2020 Abdominal pain, generalized 01/28/2020 Dilation of biliary tract 10/19/2018 Overview (10/19/2024): Added automatically from request for surgery [id number] Resolved Problems Problem Noted Date Diagnosed Date Resolved Date CKD (chronic kidney disease) stage 5, GFR less than 15 ml/min 10/19/2024 Encounters Date Type Department Care Team Description 07/07/2025 9:00 AM CDT Office Visit [facility] TXP JEFF CSM [address] [facility] [place] [address] Unknown, Unknown Kidney transplant recipient (HCC) (Primary Dx); Hypertension, unspecified type; Type 2 diabetes mellitus with other kidney complication, 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 assisted insulin use (HCC); At risk of UTI; At risk for rejection of transplanted organ; History of anemia due to chronic kidney disease; Chronic kidney disease-mineral and bone disorder; Encounter for screening for viral disease; Immunosuppression (HCC); Anxiety and depression 07/07/2025 7:55 AM CDT - 07/07/2025 11:59 PM CDT Hospital Encounter [facility] OP DRAW STATION [address] [place] [address] Discharge Disposition: Home or Self Care 07/07/2025 Travel 07/06/2025 Telephone [facility] TRANSPLANT [address] [place] [address] Maria Teresa Fortune RN Kidney Transplant Follow-up 07/04/2025 8:20 AM CDT - 07/04/2025 11:59 PM CDT Hospital Encounter [facility] OP DRAW STATION [address] [place] [phone] Discharge Disposition: Home or Self Care 07/04/2025 Telephone [facility] TRANSPLANT [address] [place] [phone] Maria Teresa Fortune RN Kidney Transplant Follow-up 07/04/2025 Travel 07/03/2025 Telephone [facility] TRANSPLANT [address] [place] [phone] Maria Teresa Fortune RN Kidney Transplant Follow-up 06/28/2025 Orders Only [facility] TRANSPLANT [address] [place] [phone] Mel Ritchie RN Hypertension, unspecified type ; Type 2 diabetes mellitus with other kidney complication, 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 ([facility]); Atrial fibrillation, unspecified type ([facility]); JONAH on CPAP; Kidney transplant recipient ([facility]); At risk of UTI; At risk for rejection of transplanted organ; History of anemia due to chronic kidney disease; Chronic kidney disease-mineral and bone disorder; Encounter for screening for viral disease; Immunosuppression ([facility]); Encounter for monitoring tacrolimus therapy 06/28/2025 Telephone [facility] TRANSPLANT [address] [place] [phone] Mel Ritchie RN Kidney Transplant Follow-up 06/26/2025 Telephone [facility] TRANSPLANT [address] [place] [phone] Antonette Hill RN Kidney Transplant Evaluation 06/26/2025 Telephone [facility] KIDNEY TRANSPLANT [address] [place] [phone] Renee Go RN Transplant Organ Offer 06/25/2025 7:37 AM CDT Anesthesia Event [facility] [address] [place] [phone] Marco Antonio Morris MD Alpert, Alison M, MD 06/25/2025 6:35 AM CDT - 06/25/2025 12:15 PM CDT Surgery [facility] [address] [place] [address] Ban Alfaro MD TRANSPLANT KIDNEY (ALLOTRANSPLANT) 06/25/2025 1:27 AM CDT - 06/30/2025 4:57 PM CDT Hospital Encounter [facility] 7S ACUTE [address] [place] [address] Ban Alfaro MD Transplant Surgery Discharge Disposition: Home Health Care Svc 06/25/2025 Travel 06/25/2025 - 06/25/2025 1:16 AM CDT Emergency [facility] EMERGENCY [facility]PARTMENT [address] [place] [phone] 05/26/2025 12:55 PM CDT - 05/26/2025 11:59 PM CDT Hospital Encounter [facility] [address] [place] [phone] Discharge Disposition: Home or Self Care 05/10/2025 Telephone [facility] TRANSPLANT [address] [place] [phone] Antonette Hill, RICHARD Kidney Transplant Evaluation 05/03/2025 Telephone [facility] TRANSPLANT [address] [place] [phone] Antonette Hill, RN Kidney Transplant Evaluation 05/02/2025 Telephone [facility] TRANSPLANT [address] [place] [phone] Maral Valdivia CPC Kidney Transplant Evaluation 05/01/2025 Telephone [facility] TRANSPLANT [address] [place] [phone] Antonette Hill, RN Kidney Transplant Evaluation from Last 3 Months Family History Medical History Relation Name Comments Leukemia Father CAD (Coronary Artery Disease) Mother Relation Name Status Comments Father Mother Social History Tobacco Use Types Packs/Day Years Used Date Smoking Tobacco: Former Cigarettes 1 23 1 975 - 1997 Smokeless Tobacco: Never Tobacco Cessation:Counseling Given: Not Answered Alcohol Use Standard Drinks/Week Comments Not Asked 0 (1 standard drink = 0.6 oz pur e alcohol) last ETOH in 1988 AUDIT-C Answer Date Recorded Q1: How often do you have a drink containing alcohol? Never 06/25/2025 Q2: How many drinks containi ng alcohol do you have on a typical day when you are drinking? Patient does not drink Q3: How often do you have si x or more drinks on one occasion? Never 06/25/2025 Overall Financial Resource Strain (CARDIA) Answe r Date Recorded How hard is it for you to pa y for the very basics like food, housing, medical care, and heating? Somewhat hard 06/25/2025 [facility] - Occupational Stress Questionnaire Answer Date Recorded Do you feel stress - tense, restless, nervous, or anxious, or unable to sleep at night because your mind is troubled all the time - these days? Not at all 06/25/2025 Hunger Vital Sign Answer Date Recorded Within the past 12 months, y ou worried that your food would run out before you got the money to buy more. Never true 06/25/20 Within the past 12 months, t he food you bought just didn't last and you didn't have money to get more. Never true 06/25/2025 PRAPARE - Transportation Answer Date Re corded In the past 12 months, has l ack of transportation kept you from medical appointments or from getting medications? No 06/12 In the past 12 months, has l ack of transportation kept you from meetings, work, or from getting things needed for daily living? No 06/25/2025 Housing Stability Vital Sign Answer Mateo e Recorded In the last 12 months, was t here a time when you were not able to pay the mortgage or rent on time? No 06/25/2025 In the past 12 months, how m any times have you moved where you were living? 0 06/25/2025 At any time in the past [facility], were you homeless or living in a intermediate (including now)? No 06/25/2025 Sex and Gender Information Value Date Recorded Sex Assigned at Not on file Legal Sex Male 11:06 AM CDT Gender Identity Not on file Sexual Orientation Not on file Last Filed Vital Signs Vital Sign Reading Time Taken Comments Blood Pressure 97/55 07/07/2025 9:25 AM CDT Pulse 65 07/07/2025 9:25 AM CDT Temperature 36.1 C (97 F) 07/07/2025 9:13 AM CDT Respiratory Rate 18 07/07/2025 9:13 AM CDT Oxygen Saturation 100% 07/07/2025 9:13 AM CDT Inhaled Oxygen Concentration - - Weight 96.3 kg (212 lb 6.4 oz) 07/07/2025 9:13 A M CDT Height 175.3 cm (5' 9) 06/25/2025 1:42 AM CDT Body Mass Index 31.37 06/25/2025 1:42 AM CDT Plan of Treatment Upcoming Encounters Date Type Department Care Team (Late st Contact Info) Description 07/18/2025 9:00 AM CDT Office Visit [facility] TXP JEFF CSM 3L [address] [facility], [place] [phone] 07/26/2025 10:15 AM CDT Procedure visit [facility] - Urology [address] [facility], [place] [phone] Samanta Harden M, DO [address] [facility] 2L DIV [place] [phone] 10/16/2025 10:20 AM MAINTENANCE AND ENGINEERING MANAGER Office Visit [facility] - Cardiology [address] [facility] [place] [place] [address] Radha Roper MD [address] [facility] DIV OF CARDIOLOGY [address]L [place] [address] Health Maintenance Due Date Last Done Comments COLOGUARD (AGES 45-75) - COLON CA SCREENING 1954 COLON MONITORING 1954 COLONOSCOPY - COLON CA SCREENING 1954 CT COLONOGRAPHY - COLON CA SCREENING 1954 Colorectal Cancer Screening 1954 FIT - COLON CA SCREENING 1954 FLEX SIG - COLON CA SCREENING 1954 MEDICARE AWV 12 MONTHS 1954 HIB VACCINE (1 of 1 - Risk 1-dose series) 10/31/1955 MENINGOCOCCAL GROUPS A/C/Y/W VACCINE (1 - Risk 2-dose series) 1956 MENINGOCOCCAL (Group B) VACCINE SHARED DECISION-MAKING (1 of 4 - Increased Risk) 1964 DTAP/TDAP/TD VACCINES (1 - Tdap) 1973 PNEUMOCOCCAL VACCINE 50+ (1 of 2 - PCV) 1973 ZOSTER VACCINE (1 of 2) 1973 HEPATITIS B VACCINE (1 of 3 - Risk Dialysis 4-dose series) 1974 Respiratory Syncytial Virus (RSV) Vaccine Pt: or over 60 yrs (1 - Risk 60-74 years 1-dose series) 2014 AAA SCREENING 2019 DEPRESSION SCREENING 10/12/2024 DIABETES-FOOT EXAM WITH MONOFILAMENT 10/19/2024 COVID-19 VACCINE ( season) 2025 06/30/2022, 02/05/2022, 08/12/2021, Additional history exists INFLUENZA VACCINE (#1) 2025 , 07/17/2020, 07/21/2019, Additional history exists DIABETES-HGB A1C 12/23/2025 06/25/2025, 03/2025, 08/05/2024, Additional history exists DIABETES RETINOPATHY SCREENING 02/21/2027 02/21/2025 HEPATITIS C SCREENING Completed 06/25/2025 , 01/15/2025, 08/05/2024, Additional history exists HPV VACCINE Aged Out No longer eligi ble based on patient's age to complete this topic Goals Goal Patient Goal Type Associated Problems Recent Progress Patient-Stated? 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) No Victor Hugo Vergara, RICHARD Note: Expected end date: ongoing Interventions: Take all medications as prescribed Let your doctor know right away about any changes in your medications Make sure to request a refill of your medication at least one week prior to your last dose Medical Devices Implanted Type Area Sheet Manager Device Identifier Shelf Expiration Date Model / Serial / Lot Prosthesis-07/12 Implanted:07/25 (Quantity not on file) Prosthesis Penile Prosthesis Description:Coloplast Titan 22 Penile implant and reservoir Stent Uret 6fr 12cm 100cm .028in 1 Stp Implanted:Qty: 1 on 06/25/2025 by Ban Alfaro MD at [facility] Left: [facility] [place] [facility] 03/08/2030 [id number] / / [id number] Procedures Procedure Name Priority Date/Time Associated Diagnosis Comments PHOSPHORUS BLOOD Routine 07/07/2025 8:09 AM CDT Hypertension, unspecified type Type 2 diabetes mellitus with other kidney complication, 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 assisted insulin use (HCC) Atrial fibrillation, unspecified type (HCC) Kidney transplant recipient (HCC) At risk of UTI At risk for rejection of transplanted organ History of anemia due to chronic kidney disease Chronic kidney disease-mineral and bone disorder Encounter for screening for viral disease Immunosuppression (HCC) Encounter for monitoring tacrolimus therapy MAGNESIUM BLOOD Routine 07/07/2025 8:09 AM CDT Hypertension, unspecified type Type 2 diabetes mellitus with other kidney complication, 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 (HCC) Atrial fibrillation, unspecified type (HCC) Kidney transplant recipient (HCC) At risk of UTI At risk for rejection of transplanted organ History of anemia due to chronic kidney disease Chronic kidney disease-mineral and bone disorder Encounter for screening for viral disease Immunosuppression (HCC) Encounter for monitoring tacrolimus therapy COMPREHENSIVE METABOLIC PANEL Routine 07/07/2025 8:09 AM CDT Hypertension, unspecified type Type 2 diabetes mellitus with other kidney complication, 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 assisted insulin use (HCC) Atrial fibrillation, unspecified type (HCC) Kidney transplant recipient (HCC) At risk of UTI At risk for rejection of transplanted organ History of anemia due to chronic kidney disease Chronic kidney disease-mineral and bone disorder Encounter for screening for viral disease Immunosuppression (HCC) Encounter for monitoring tacrolimus therapy CBC W AUTO DIFFERENTIAL Routine 07/07/2025 8:09 AM CDT Hypertension, unspecified type Type 2 diabetes mellitus with other kidney complication, 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 assisted insulin use (HCC) Atrial fibrillation, unspecified type (HCC) Kidney transplant recipient (HCC) At risk of UTI At risk for rejection of transplanted organ History of anemia due to chronic kidney disease Chronic kidney disease-mineral and bone disorder Encounter for screening for viral disease Immunosuppression (HCC) Encounter for monitoring tacrolimus therapy TACROLIMUS LEVEL Routine 07/07/2025 8:09 AM CDT Hypertension, unspecified type Type 2 diabetes mellitus with other kidney complication, 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 (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) Atrial fibrillation, unspecified type (HCC) Kidney transplant recipient (HCC) At risk of UTI At risk for rejection of transplanted organ History of anemia due to chronic kidney disease Chronic kidney disease-mineral and bone disorder Encounter for screening for viral disease Immunosuppression (HCC) Encounter for monitoring tacrolimus therapy DIFFERENTIAL MANUAL Routine 07/04/2025 8 :37 AM CDT Hypertension, unspecified type Type 2 diabetes mellitus with other kidney complication, 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 (HCC) Atrial fibrillation, unspecified type (HCC) Kidney transplant recipient (HCC) At risk of UTI At risk for rejection of transplanted organ History of anemia due to chronic kidney disease Chronic kidney disease-mineral and bone disorder Encounter for screening for viral disease Immunosuppression (HCC) Encounter for monitoring tacrolimus therapy CREATININE URINE RANDOM Routine 07/04/2025 8:37 AM CDT Hypertension, unspecified type Type 2 diabetes mellitus with other kidney complication, 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 (HCC) Atrial fibrillation, unspecified type (HCC) Kidney transplant recipient (HCC) At risk of UTI At risk for rejection of transplanted organ History of anemia due to chronic kidney disease Chronic kidney disease-mineral and bone disorder Encounter for screening for viral disease Immunosuppression (HCC) Encounter for monitoring tacrolimus therapy PROTEIN URINE RANDOM QUANTITATIVE Routine 07/04/2025 8:37 AM CDT Hypertension, unspecified type Type 2 diabetes mellitus with other kidney complication, 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 (HCC) Atrial fibrillation, unspecified type (HCC) Kidney transplant recipient (HCC) At risk of UTI At risk for rejection of transplanted organ History of anemia due to chronic kidney disease Chronic kidney disease-mineral and bone disorder Encounter for screening for viral disease Immunosuppression (HCC) Encounter for monitoring tacrolimus therapy URINALYSIS W/MICROSCOPIC NO CULTURE Routine 07/04/2025 8:37 AM CDT Hypertension, unspecified type Type 2 diabetes mellitus with other kidney complication, 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 assisted insulin use (HCC) Atrial fibrillation, unspecified type (HCC) Kidney transplant recipient (HCC) At risk of UTI At risk for rejection of transplanted organ History of anemia due to chronic kidney disease Chronic kidney disease-mineral and bone disorder Encounter for screening for viral disease Immunosuppression (HCC) Encounter for monitoring tacrolimus therapy PHOSPHORUS BLOOD Routine 07/04/2025 8:37 AM CDT Hypertension, unspecified type Type 2 diabetes mellitus with other kidney complication, 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 assisted insulin use (HCC) Atrial fibrillation, unspecified type (HCC) Kidney transplant recipient (HCC) At risk of UTI At risk for rejection of transplanted organ History of anemia due to chronic kidney disease Chronic kidney disease-mineral and bone disorder Encounter for screening for viral disease Immunosuppression (HCC) Encounter for monitoring tacrolimus therapy MAGNESIUM BLOOD Routine 07/04/2025 8:37 AM CDT Hypertension, unspecified type Type 2 diabetes mellitus with other kidney complication, 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 assisted insulin use (HCC) Atrial fibrillation, unspecified type (HCC) Kidney transplant recipient (HCC) At risk of UTI At risk for rejection of transplanted organ History of anemia due to chronic kidney disease Chronic kidney disease-mineral and bone disorder Encounter for screening for viral disease Immunosuppression (HCC) Encounter for monitoring tacrolimus therapy COMPREHENSIVE METABOLIC PANEL Routine 07/04/2025 8:37 AM CDT Hypertension, unspecified type Type 2 diabetes mellitus with other kidney complication, 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 (HCC) Atrial fibrillation, unspecified type (HCC) Kidney transplant recipient (HCC) At risk of UTI At risk for rejection of transplanted organ History of anemia due to chronic kidney disease Chronic kidney disease-mineral and bone disorder Encounter for screening for viral disease Immunosuppression (HCC) Encounter for monitoring tacrolimus therapy CBC W AUTO DIFFERENTIAL Routine 07/04/2025 8:37 AM CDT Hypertension, unspecified type Type 2 diabetes mellitus with other kidney complication, 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 (HCC) Atrial fibrillation, unspecified type (HCC) Kidney transplant recipient (HCC) At risk of UTI At risk for rejection of transplanted organ History of anemia due to chronic kidney disease Chronic kidney disease-mineral and bone disorder Encounter for screening for viral disease Immunosuppression (HCC) Encounter for monitoring tacrolimus therapy TACROLIMUS LEVEL Routine 07/04/2025 8:37 AM CDT Hypertension, unspecified type Type 2 diabetes mellitus with other kidney complication, 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 (HCC) Atrial fibrillation, unspecified type (HCC) Kidney transplant recipient (HCC) At risk of UTI At risk for rejection of transplanted organ History of anemia due to chronic kidney disease Chronic kidney disease-mineral and bone disorder Encounter for screening for viral disease Immunosuppression (HCC) Encounter for monitoring tacrolimus therapy CULTURE URINE Routine 07/04/2025 8:37 AM CDT Hypertension, unspecified type Type 2 diabetes mellitus with other kidney complication, 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 (HCC) Atrial fibrillation, unspecified type (HCC) Kidney transplant recipient (HCC) At risk of UTI At risk for rejection of transplanted organ History of anemia due to chronic kidney disease Chronic kidney disease-mineral and bone disorder Encounter for screening for viral disease Immunosuppression (HCC) Encounter for monitoring tacrolimus therapy GLUCOSE - POINT OF CARE Routine 06/30/2025 11:25 AM CDT GLUCOSE - POINT OF CARE Routine 06/30/2025 7:43 AM CDT TACROLIMUS LEVEL AM Draw 06/30/2025 5:45 AM CDT PHOSPHORUS BLOOD AM Draw 06/30/2025 5:45 AM CDT MAGNESIUM BLOOD AM Draw 06/30/2025 5:45 AM CDT CBC W AUTO DIFFERENTIAL AM Draw 06/30/2025 5:45 AM CDT BASIC METABOLIC PANEL (CALCIUM TOTAL) AM Draw 06/30/2025 5:45 AM CDT GLUCOSE - POINT OF CARE Routine 06/30/2025 3:57 AM CDT GLUCOSE - POINT OF CARE Routine 06/29/2025 11:50 PM CDT GLUCOSE - POINT OF CARE Routine 06/29/2025 7:59 PM CDT GLUCOSE - POINT OF CARE Routine 06/29/2025 5:07 PM CDT GLUCOSE - POINT OF CARE Routine 06/29/2025 11:40 AM CDT VAS RIGHT VENOUS DUPLEX UE STAT 06/29/2025 9:05 AM CDT Kidney transplant status 06/25/25 DBD GLUCOSE - POINT OF CARE Routine 06/29/2025 8:59 AM CDT TACROLIMUS LEVEL AM Draw 06/29/2025 4:42 AM CDT PHOSPHORUS BLOOD AM Draw 06/29/2025 4:42 AM CDT MAGNESIUM BLOOD AM Draw 06/29/2025 4:42 AM CDT CBC W AUTO DIFFERENTIAL AM Draw 06/29/2025 4:42 AM CDT BASIC METABOLIC PANEL (CALCIUM TOTAL) AM Draw 06/29/2025 4:42 AM CDT GLUCOSE - POINT OF CARE Routine 06/29/2025 3:53 AM CDT GLUCOSE - POINT OF CARE Routine 06/28/2025 11:11 PM CDT GLUCOSE - POINT OF CARE Routine 06/28/2025 7:42 PM CDT GLUCOSE - POINT OF CARE Routine 06/28/2025 6:03 PM CDT GLUCOSE - POINT OF CARE Routine 06/28/2025 12:18 PM CDT GLUCOSE - POINT OF CARE Routine 06/28/2025 6:16 AM CDT XR CHEST 1VW PORTABLE Routine 06/28/2025 4:41 AM CDT ESRD (end stage renal disease) (HCC) TACROLIMUS LEVEL AM Draw 06/28/2025 4:12 AM CDT PHOSPHORUS BLOOD AM Draw 06/28/2025 4:12 AM CDT MAGNESIUM BLOOD AM Draw 06/28/2025 4:12 AM CDT CBC W AUTO DIFFERENTIAL AM Draw 06/28/2025 4:12 AM CDT BASIC METABOLIC PANEL (CALCIUM TOTAL) AM Draw 06/28/2025 4:12 AM CDT GLUCOSE - POINT OF CARE Routine 06/28/2025 1:33 AM CDT GLUCOSE - POINT OF CARE Routine 06/27/2025 9:33 PM CDT GLUCOSE - POINT OF CARE Routine 06/27/2025 5:42 PM CDT US RENAL TRANSPLANT STAT 06/27/2025 2 :10 PM CDT S/P kidney transplant (HCC) GLUCOSE - POINT OF CARE Routine 06/27/2025 12:37 PM CDT GLUCOSE - POINT OF CARE Routine 06/27/2025 5:32 AM CDT XR CHEST 1VW PORTABLE Routine 06/27/2025 4:36 AM CDT ESRD (end stage renal disease) (HCC) TACROLIMUS LEVEL AM Draw 06/27/2025 3:39 AM CDT PHOSPHORUS BLOOD AM Draw 06/27/2025 3:39 AM CDT MAGNESIUM BLOOD AM Draw 06/27/2025 3:39 AM CDT CBC W AUTO DIFFERENTIAL AM Draw 06/27/2025 3:39 AM CDT BASIC METABOLIC PANEL (CALCIUM TOTAL) AM Draw 06/27/2025 3:39 AM CDT GLUCOSE - POINT OF CARE Routine 06/26/2025 11:14 PM CDT GLUCOSE - POINT OF CARE Routine 06/26/2025 8:20 PM CDT GLUCOSE - POINT OF CARE Routine 06/26/2025 5:50 PM CDT DIFFERENTIAL MANUAL Timed 06/26/2025 1 :28 PM CDT PHOSPHORUS BLOOD Timed 06/26/2025 1:28 PM CDT MAGNESIUM BLOOD Timed 06/26/2025 1:28 PM CDT CBC W AUTO DIFFERENTIAL Timed 06/26/2025 1:28 PM CDT BASIC METABOLIC PANEL (CALCIUM TOTAL) Timed 06/26/2025 1:28 PM CDT GLUCOSE - POINT OF CARE Routine 06/26/2025 1:24 PM CDT XR CHEST 1VW PORTABLE Routine 06/26/2025 12:05 PM CDT S/P kidney transplant (HCC) GLUCOSE - POINT OF CARE Routine 06/26/2025 6:55 AM CDT DIFFERENTIAL MANUAL Timed 06/26/2025 4 :09 AM CDT PHOSPHORUS BLOOD Timed 06/26/2025 4:09 AM CDT MAGNESIUM BLOOD Timed 06/26/2025 4:09 AM CDT CBC W AUTO DIFFERENTIAL Timed 06/26/2025 4:09 AM CDT BASIC METABOLIC PANEL (CALCIUM TOTAL) Timed 06/26/2025 4:09 AM CDT GLUCOSE - POINT OF CARE Routine 06/25/2025 11:21 PM CDT DIFFERENTIAL MANUAL Timed 06/25/2025 8 :24 PM CDT PHOSPHORUS BLOOD Timed 06/25/2025 8:24 PM CDT MAGNESIUM BLOOD Timed 06/25/2025 8:24 PM CDT CBC W AUTO DIFFERENTIAL Timed 06/25/2025 8:24 PM CDT BASIC METABOLIC PANEL (CALCIUM TOTAL) Timed 06/25/2025 8:24 PM CDT GLUCOSE - POINT OF CARE Routine 06/25/2025 5:48 PM CDT GLUCOSE - POINT OF CARE Routine 06/25/2025 3:44 PM CDT PHOSPHORUS BLOOD Timed 06/25/2025 12:5 7 PM CDT MAGNESIUM BLOOD Timed 06/25/2025 12:57 PM CDT CBC W AUTO DIFFERENTIAL Timed 06/25/2025 12:57 PM CDT BASIC METABOLIC PANEL (CALCIUM TOTAL) STAT 06/25/2025 12:57 PM CDT BASIC METABOLIC PANEL (CALCIUM TOTAL) Timed 06/25/2025 12:57 PM CDT GLUCOSE - POINT OF CARE Routine 06/25/2025 12:37 PM CDT OT EVAL AND TREAT Routine 06/25/2025 11: 45 AM CDT BLOOD GAS+COOX+LYTES+METAB ARTERIAL POCT Routine 06/25/2025 11:13 AM CDT HLA TYPING DNA LOW RESOLUTION DR,DQ Routine 06/25/2025 10:46 AM CDT HLA TYPING DNA LOW RESOLUTION A,B,C Routine 06/25/2025 10:46 AM CDT BLOOD GAS+COOX+LYTES+METAB ARTERIAL POCT Routine 06/25/2025 9:57 AM CDT PT-INR Timed 06/25/2025 9:01 AM CDT BLOOD GAS+COOX+LYTES+METAB ARTERIAL POCT Routine 06/25/2025 8:50 AM CDT ENDOTRACHEAL TUBE NOTE Routine 06/25/2025 8:13 AM CDT BLOOD GAS ART+LYTES+METAB+COOX POC NOTIF STAT 06/25/2025 8:07 AM CDT ESRD (end stage renal disease) (HCC) ARTERIAL LINE NOTE Routine 06/25/2025 8: 06 AM CDT BLOOD GAS+COOX+LYTES+METAB ARTERIAL POCT Routine 06/25/2025 8:05 AM CDT BLOOD GAS+COOX+LYTES+METAB ARTERIAL POCT Routine 06/25/2025 8:05 AM CDT WV RENAL ALLOTPLNT IMPLNT GRAFT; W/O RECIP NEPHRECT 06/25/2025 7:12 AM CDT ESRD (end stage renal disease) (HCC) Special Needs LOCAL KIDNEY COMING ON PUMP AT 0630 - IN ROOM 0700 - 06/24 @ 2118 CW GLUCOSE - POINT OF CARE Routine 06/25/2025 7:09 AM CDT URINALYSIS W/MICROSCOPIC NO CULTURE STAT 06/25/2025 6:33 AM CDT URINE DRUG SCREEN IMMUNOASSAY STAT 06/25/2025 6:33 AM CDT CULTURE URINE Routine 06/25/2025 6:33 AM CDT EKG 12-LEAD STAT 06/25/2025 2:34 AM CDT ESRD (end stage renal disease) (HCC) FLOW HLA XM DONOR Routine 06/25/2025 2:29 AM CDT TYPE + SCREEN PANEL STAT 06/25/2025 2 :29 AM CDT PREPARE RBC LEUKOREDUCED UNIT STAT 06/25/2025 2:29 AM CDT BILIRUBIN DIRECT Routine 06/25/2025 2:29 AM CDT TRANSFERRIN Routine 06/25/2025 2:29 AM CDT PT-INR STAT 06/25/2025 2:29 AM CDT PTH INTACT W/O CALCIUM Routine 06/25/2025 2:29 AM CDT PHOSPHORUS BLOOD STAT 06/25/2025 2:29 AM CDT MAGNESIUM BLOOD STAT 06/25/2025 2:29 AM CDT LIPID PROFILE Routine 06/25/2025 2:29 AM CDT IRON BLOOD Routine 06/25/2025 2:29 AM CDT HIV-1 HIV-2 ANTIBODY + HIV P24 AG PANEL Routine 06/25/2025 2:29 AM CDT HEPATITIS C ANTIBODY DONOR Routine 06/25/2025 2:29 AM CDT HEPATITIS C RNA QUANTITATIVE Routine 06/25/2025 2:29 AM CDT HEPATITIS B SURFACE ANTIBODY QUANT Routine 06/25/2025 2:29 AM CDT HEPATITIS B SURFACE AG RFLX NEUT DONOR Routine 06/25/2025 2:29 AM CDT HEPATITIS B CORE ANTIBODY TOTAL Routine 06/25/2025 2:29 AM CDT HEMOGLOBIN A1C Routine 06/25/2025 2:29 AM CDT FERRITIN Routine 06/25/2025 2:29 AM CDT COMPREHENSIVE METABOLIC PANEL STAT 06/25/2025 2:29 AM CDT CBC W AUTO DIFFERENTIAL STAT 06/25/2025 2:29 AM CDT SARS-COV-2 (COVID-19) RAPID STAT 06/25/2025 2:24 AM CDT XR CHEST 1VW PORTABLE STAT 06/25/2025 2:02 AM CDT Pre-transplant evaluation for kidney transplant PREPARE FFP UNIT(S) Routine 06/25/2025 1 :59 AM CDT HLA ANTIBODY SCREEN LUM CLASS 2 SAB Routine 05/26/2025 1:00 PM CDT Pre-kidney transplant, listed HLA ANTIBODY SCREEN LUM CLASS 1 SAB Routine 05/26/2025 1:00 PM CDT Pre-kidney transplant, listed FLOW HLA XM DONOR Routine 05/26/2025 12:31 AM CDT from Last 3 Months Results * TACROLIMUS LEVEL (07/07/2025 8:09 AM CDT) Only the most recent of6 resultswithin the time period is included. Tacrolimus, trough 7.5 3.0 - 15.0 ng/mL 07/07/2025 12:12 PM CDT [facility] Blood BLOOD SPECIMEN / Unknown Lab Venipuncture / Unknown 07/07/2025 8:09 AM CDT 07/07/2025 8:20 AM CDT [facility] - 07/07/2025 12:12 PM CDT Measurement performed by chemiluminescence immunoassay (CMIA) on the Nanali Alinity analyzer. Most individuals achieve optimal response with steady-state trough whole blood levels between 3-15 ng/mL. Preferred therapeutic values may vary by transplant type, protocol, and comedications. Therapeutic concentrations are based on trough values; blood drawn at other times may yield higher results. Ban Alfaro MD LAB - THERAPEUTIC DRUG MONITORING ORDERABLES Final Result [facility] [address] [place] [phone], [facility] [phone] * (ABNORMAL) CBC W AUTO DIFFERENTIAL (07/07/2025 8:09 AM CDT) Only the most recent of11 resultswithin the time period is included. WBC 9.9 4.0 - 10.7 x10E9/L 07/07/2025 8:57 AM [facility] RBC Count 3.39(L) 4.30 - 5.80 x10E12/L 07/07/2025 8:57 AM [facility] Hemoglobin 10.5(L) 13.3 - 17.5 g/dL 07/07/2025 8:57 AM [facility] Hematocrit 32.5(L) 38.7 - 51.1 % 07/07/2025 8:57 AM [facility] MCV 95.9 80.0 - 98.0 fL 07/07/2025 8:57 AM [facility] MCH 31.0 26.7 - 33.6 pg 07/07/2025 8:57 AM [facility] MCHC 32.3 31.7 - 36.3 g/dL 07/07/2025 8:57 AM [facility] RDW-CV 13.7 11.3 - 14.8 % 07/07/2025 8:57 AM [facility] Platelet Count 287 150 - 420 x10E9/L 07/07/2025 8:57 AM [facility] MPV 10.9 7.8 - 11.4 fL 07/07/2025 8:57 AM [facility] Neutrophil % 85.4(H) 41.0 - 74.0 % 07/07/2025 8:57 AM [facility] Lymphocyte % 6.5(L) 17.0 - 47.0 % 07/07/2025 8:57 AM [facility] Monocyte % 3.7 3.0 - 11.0 % 07/07/2025 8:57 AM [facility] Eosinophil % 2.4 0.0 - 7.0 % 07/07/2025 8:57 AM [facility] Basophil % 0.3 0.0 - 1.6 % 07/07/2025 8:57 AM [facility] Immature Granulocytes % 1.7(H) 0.0 - 1.0 % 07/07/2025 8:57 AM [facility] Neutrophil Absolute 8.43(H) 1.60 - 7.50 x10E9/L 07/07/2025 8:57 AM [facility] Lymphocyte Absolute 0.64(L) 1.00 - 4.40 x10E9/L 07/07/2025 8:57 AM [facility] Monocyte Absolute 0.37 0.15 - 1.00 x10E9/L 07/07/2025 8:57 AM [facility] Eosinophil Absolute 0.24 0.00 - 0.60 x10E9/L 07/07/2025 8:57 AM [facility] Basophil Absolute 0.03 0.00 - 0.13 x10E9/L 07/07/2025 8:57 AM [facility] Blood BLOOD SPECIMEN / Unknown Lab Venipuncture / Unknown 07/07/2025 8:[address] [facility] 07/07/2025 8:[address] [facility] us Ban Alfaro MD LAB - HEMATOLOGY ORDERA BLES Final Result [facility] [address] [place] [address] [phone] * (ABNORMAL) COMPREHENSIVE METABOLIC PANEL (07/07/2025 8:[address] [facility]) Only the most recent of3 resultswithin the time period is included. BUN 34(H) 7 - 26 mg/dL 07/07/2025 8:56 AM [facility] Creatinine 1.64(H) 0.71 - 1.16 mg/dL 07/07/2025 8:56 AM [facility] Sodium 136 136 - 145 mmol/L 07/07/2025 8:56 AM [facility] Potassium 5.3(H) 3.5 - 4.5 mmol/L 07/07/2025 8:56 AM [facility] Chloride 112(H) 98 - 107 mmol/L 07/07/2025 8:56 AM [facility] CO2 17(L) 22 - 29 mmol/L 07/07/2025 8:56 AM [facility] Glucose 121(H) 70 - 99 mg/dL 07/07/2025 8:56 AM [facility] Calcium 8.8 8.4 - 10.2 mg/dL 07/07/2025 8:56 AM [facility] Protein Total 7.3 6.0 - 8.3 g/dL 07/07/2025 8:56 AM [facility] Albumin 3.9 3.4 - 5.0 g/dL 07/07/2025 8:56 AM [facility] Bilirubin Total 0.4 0.2 - 1.2 mg/dL 07/07/2025 8:56 AM [facility] Alkaline Phosphatase 192(H) 40 - 150 U/L 07/07/2025 8:56 AM [facility] ALT 54 5 - 55 U/L 07/07/2025 8:56 AM [facility] AST 17 5 - 34 U/L 07/07/2025 8:56 AM [facility] Anion Gap 7 6 - 16 07/07/2025 8:56 AM [facility] BUN/Creatinine Ratio 21 7 - 23 07/07/2025 8:56 AM CDT [facility] Osmolality Calculated 291 275 - 295 mOsm/kg 07/07/2025 8:56 AM CDT [facility] Albumin/Globulin Ratio 1.1 1.1 - 2.3 07/07/2025 8:56 AM CDT [facility] eGFR by CKD-EPI 45(L) >=90 mL/min/1.7 3 m2 07/07/2025 8:56 AM CDT [facility] Comment:Estimated Glomerular Filtration Rate (eGFR) calculated using the CKD-EPI Creatinine Equation (2020), per the [employer] and [place] [employer] recommendations. Blood BLOOD SPECIMEN / Unknown Lab Venipuncture / Unknown 07/07/2025 8:09 AM CDT 07/07/2025 8:19 AM CDT Ban Alfaro MD LAB - CHEMISTRY ORDERAB LES Final Result [address] [address], [facility] [phone] * PHOSPHORUS BLOOD (07/07/2025 8:09 AM CDT) Only the most recent of11 resultswithin the time period is included. Phosphorus 3.4 2.8 - 5.1 mg/dL 07/07/2025 8:56 AM CDT [facility] Blood BLOOD SPECIMEN / Unknown Lab Venipuncture / Unknown 07/07/2025 8:09 AM CDT 07/07/2025 8:19 AM CDT us Ban Alfaro MD LAB - CHEMISTRY ORDERAB LES Final Result [address] [address], [facility] [phone] * MAGNESIUM BLOOD (07/07/2025 8:09 AM CDT) Only the most recent of11 resultswithin the time period is included. Magnesium 1.6 1.6 - 2.6 mg/dL 07/07/2025 8:56 AM [facility] Blood BLOOD SPECIMEN / Unknown Lab Venipuncture / Unknown 07/07/2025 8:09 AM CDT 07/07/2025 8:19 AM CDT us Ban Alfaro MD LAB - CHEMISTRY ORDERAB LES Final Result [address] [address], [facility] [phone] * (ABNORMAL) URINALYSIS COMPLETE W MICROSCOPIC (07/04/2025 8:37 AM CDT) Only the most recent of2 resultswithin the time period is included. Color UA Yellow Yellow, Straw 07/04/2025 9:15 AM [facility] Clarity UA Clear Clear 07/04/2025 9:15 AM [facility] Glucose UA Normal Normal 07/04/2025 9:15 AM [facility] Bilirubin UA Negative Negative 07/04/2025 9:15 AM [facility] Ketone UA Negative Negative 07/04/2025 9:15 AM [facility] Specific [place] UA 1.018 1.005 - 1.030 07/04/2025 9:15 AM [facility] Blood UA Negative Negative 07/04/2025 9:15 AM [facility] pH UA 6.0 5.0 - 8.0 07/04/2025 9:15 AM [facility] Protein UA Negative Negative 07/04/2025 9:15 AM [facility] Urobilinogen UA Normal Normal mg/dL 07/04/2025 9:15 AM [facility] Nitrite UA Negative Negative 07/04/2025 9:15 AM [facility] Leukocyte Esterase UA 75 ZOHRA/uL(A) Negative 07/04/2025 9:15 AM [facility] RBC UA 6-10(A) 0 - 5 # /hpf 07/04/2025 9:15 AM [facility] WBC UA 0-5 0 - 5 # /hpf 07/04/2025 9:15 AM [facility] Bacteria UA None Seen None Seen 07/04/2025 9:15 AM CDT [facility] Squamous Epithelial Cells 0-2 0 - 5 /hpf 07/04/2025 9:15 AM CDT [facility] Urine URINE SPECIMEN OBTAINED BY CLEAN CATCH PROCEDURE / Unknown Collection / Unknown 07/04/2025 8:37 AM CDT 07/04/2025 8:56 AM CDT Ban Alfaro MD LAB - URINALYSIS ORDERA BLES Final Result Performing Organization Address City/[facility]/ZIP Co de Phone Number [facility] [address] [place] [address], [facility] [phone] * CULTURE URINE (07/04/2025 8:37 AM CDT) Only the most recent of2 resultswithin the time period is included. Culture Urine No growth (<100 CFU/mL) AMY 07/05/2025 10:55 AM CDT [facility]CRO[facility] Urine URINE SPECIMEN OBTAINED BY CLEAN CATCH PROCEDURE / Unknown Collection / Unknown 07/04/2025 8:37 AM CDT 07/04/2025 8:56 AM CDT Ban Alfaro MD LAB - MICROBIOLOGY ORDE RABLES Final Result Performing Organization Address City/[facility]/ZIP Co de Phone Number [facility] MICRO[facility]OLOGY [address] [place] [address], [facility] [phone] * (ABNORMAL) DIFFERENTIAL MANUAL (07/04/2025 8:37 AM CDT) Only the most recent of4 resultswithin the time period is included. Neutrophil % 87(H) 41 - 74 % 07/04/2025 9:59 AM CDT [facility] Lymphocyte % 4(L) 17 - 47 % 07/04/2025 9:59 AM CDT [facility] Monocyte % 3 3 - 11 % 07/04/2025 9:59 AM CDT [facility] Eosinophil % 2 0 - 7 % 07/04/2025 9:59 AM CDT [facility] Metamyelocyte % 1(H) 0% % 9:59 AM [facility] Myelocyte % 3(H) 0% % 07/04/2025 9:59 AM [facility] Neutrophil Absolute 6.70 1.60 - 7.50 x10E9/L 07/04/2025 9:59 AM [facility] Lymphocyte Absolute 0.31(L) 1.00 - 4.40 x10E9/L 07/04/2025 9:59 AM [facility] Monocyte Absolute 0.23 0.15 - 1.00 x10E9/L 07/04/2025 9:59 AM [facility] Eosinophil Absolute 0.15 0.00 - 0.60 x10E9/L 07/04/2025 9:59 AM [facility] RBC Morphology REVIEWED 07/04/2025 9:59 AM [facility] Selby Cells MODERATE(A) (none) 07/04/2025 9:59 AM [facility] Schistocytes FEW(A) (none) 07/04/2025 9:59 AM [facility] Blood BLOOD SPECIMEN / Unknown Lab Venipuncture / Unknown 07/04/2025 8:37 AM CDT 07/04/2025 9:00 AM CDT us Ban Alfaro MD LAB - HEMATOLOGY ORDERA BLES Final Result Performing Organization Address City/State/[facility] Co de Phone Number [facility] [address] [place] [address], [facility] [phone] * PROTEIN URINE RANDOM QUANTITATIVE (07/04/2025 8:37 AM CDT) Protein Urine 22 Not Established mg/dL 07/04/2025 9:30 AM CDT [facility] Urine URINE SPECIMEN OBTAINED BY CLEAN CATCH PROCEDURE / Unknown Collection / Unknown 07/04/2025 8:37 AM CDT 07/04/2025 8:56 AM CDT Ban Alfaro MD LAB - URINE CHEMISTRY O RDERABLES Final Result Performing Organization Address City/[facility]/ZIP Co de Phone Number [address] [address], [place] [phone] * CREATININE URINE RANDOM (07/04/2025 8:37 AM CDT) Creatinine Urine 88.82 Not Established mg/dL 07/04/2025 9:30 AM CDT [facility] Urine URINE SPECIMEN OBTAINED BY CLEAN CATCH PROCEDURE / Unknown Collection / Unknown 07/04/2025 8:37 AM CDT 07/04/2025 8:56 AM CDT Ban Alfaro MD LAB - URINE CHEMISTRY O RDERABLES Final Result Performing Organization Address [facility] Co de Phone Number [address] [address], [facility] [phone] * (ABNORMAL) GLUCOSE - POINT OF CARE (06/30/2025 11:25 AM CDT) Only the most recent of29 resultswithin the time period is included. Glucose WB/POC 188(H) 70 - 99 mg/dL 06/30/2025 11:30 AM CDT [facility] Specimen Type Arterial/C apillary 06/30/2025 11:30 AM CDT [facility] Blood BLOOD SPECIMEN / Unknown 06/30/2025 11:25 AM CDT 06/30/2025 11:30 AM CDT us Ban Alfaro MD LAB - POINT OF CARE ORD ERABLES Final Result Performing Organization Address City/[facility]/ZIP Co de Phone Number [address] [address], [place] [phone] * (ABNORMAL) BASIC METABOLIC PANEL (CALCIUM TOTAL) (06/30/2025 5:45 AM CDT) Only the most recent of9 resultswithin the time period is included. BUN 33(H) 7 - 26 mg/dL 06/30/2025 6:27 AM [facility] Creatinine 1.60(H) 0.71 - 1.16 mg/dL 06/30/2025 6:27 AM [facility] Sodium 139 136 - 145 mmol/L 06/30/2025 6:27 AM [facility] Potassium 3.7 3.5 - 4.5 mmol/L 06/30/2025 6:27 AM [facility] Chloride 113(H) 98 - 107 mmol/L 06/30/2025 6:27 AM [facility] CO2 21(L) 22 - 29 mmol/L 06/30/2025 6:27 AM [facility] Glucose 120(H) 70 - 99 mg/dL 06/30/2025 6:27 AM [facility] Calcium 8.1(L) 8.4 - 10.2 mg/dL 06/30/2025 6:27 AM [facility] Anion Gap 5(L) 6 - 16 06/30/2025 6:27 AM [facility] BUN/Creatinine Ratio 21 7 - 23 06/30/2025 6:27 AM [facility] Osmolality Calculated 296(H) 275 - 295 mOsm/kg 06/30/2025 6:27 AM [facility] eGFR by CKD-EPI 46(L) >=90 mL/min/1.7 3 m2 06/30/2025 6:27 AM [facility] Comment:Estimated Glomerular Filtration Rate (eGFR) calculated using the CKD-EPI Creatinine Equation (2020), per the National Kidney Foundation and [place] [employer]ph[employer] recommendations. Blood BLOOD SPECIMEN / Unknown Venipuncture / Unknown 06/30/2025 5:45 AM CDT 06/30/2025 5:52 AM CDT us Ban Alfaro MD LAB - CHEMISTRY ORDERAB LES Final Result [facility] [address] [place] [address], [facility] [phone] * VAS Right Venous Duplex Ue (06/29/2025 9:05 AM CDT) Anatomical Region Laterality Modality Upper Extremity Ultrasound 06/29/2025 8:11 AM CDT Narrative Procedure Note Mert Osullivan MD - 06/29/2025 us Elenita Brewer REAL ESTATE OPERATIONS MANAGER-LICENSED ESTHETICIAN VASCULAR LAB ORDERABLES Sam vimal Result - Final * XR Chest 1Vw Portable (06/28/2025 4:41 AM CDT) Only the most recent of4 resultswithin the time period is included. Anatomical Region Laterality Modality Chest Digital Radiogra phy 06/28/2025 12:3 8 PM CDT Narrative 06/29/2025 2:19 AM CDT PROCEDURE: XR CHEST 1VW PORTABLE, DATE/TIME OF EXAM: 06/28/2025 4:41 AM, LOCATION [facility] INDICATION: N18.6: ESRD (end stage renal disease) ([facility]) ADDITIONAL CLINICAL INFORMATION: Ordering Provider Reason For Exam: Trauma ICU COMPARISON: Chest radiograph 06/27/2025 FINDINGS/IMPRESSION: Bilateral diffuse scattered airspace opacities, this could be due to pulmonary edema or infection, unchanged compared to previous. No pneumothorax is visible. The cardiomediastinal silhouette is obscured. > Dictated by Louie GARCIA, [facility] (radiology fellow). > Dictated by Relief Salesperson I, Kieran Bliss MD have personally reviewed and interpreted this examination/study. > Interpreting Provider: Kieran Bliss MD on 06/29/2025 2:19 AM Procedure Note Kieran Bliss MD - 06/29/2025 PROCEDURE: XR CHEST 1VW PORTABLE, DATE/TIME OF EXAM: 06/28/2025 4:41AM, LOCATION [facility] INDICATION: N18.6: ESRD (end stage renal disease) ([facility]) ADDITIONAL CLINICAL INFORMATION: Ordering Provider Reason For Exam: Trauma ICU COMPARISON: Chest radiograph 06/27/2025 FINDINGS/IMPRESSION: Bilateral diffuse scattered airspace opacities, this could be due to pulmonary edema or infection, unchanged compared to previous. No pneumothorax is visible. The cardiomediastinal silhouette is obscured. > Dictated by Louie Pepper, [facility] (radiology fellow). > Dictated by Relief Salesperson I, Kieran Bliss MD have personally reviewed and interpreted this examination/study. > Interpreting Provider: Kieran Bliss MD on 06/29/2025 2:19 AM Ban Alfaro MD DIAGNOSTIC IMAGING ORDE RABRENARD Final Result * US Renal Transplant (06/27/2025 2:10 PM CDT) Anatomical Region Laterality Modality Abdomen Ultrasound 06/27/2025 2:11 PM CDT Impressions 06/27/2025 3:31 PM CDT IMPRESSION: 1.Normal transplant renal size. 2.There is a 8.8 x 2.4 cm perinephric fluid around the transplanted kidney. 3.No evidence of nephrolithiasis, hydronephrosis, or solid renal mass. 4.Increased peak systolic velocities in the main renal artery, renal artery anastomosis and iliac artery adjacent to the anastomosis is likely due to reduced vessel caliber secondary to postoperative edema. Blood flow in the distal kidney including the arcuate vessels is maintained adequately. Recommend close attention to follow-up. > Dictated by Maureen Murdock MD (vice president). > Dictated by Relief Salesperson I, Piedad Cardozo MD have personally reviewed and interpreted this examination/study. > Interpreting Provider: Piedad Cardozo MD on 06/27/2025 3:31 PM Narrative 06/27/2025 3:31 PM CDT PROCEDURE: US RENAL TRANSPLANT, DATE/TIME OF EXAM: 06/27/2025 2:10 PM, LOCATION [facility] INDICATION: Z94.0: S/P kidney transplant (HCC) ADDITIONAL CLINICAL INFORMATION: Ordering Provider Reason For Exam: s/p kidney transplant with increase Cr Technologist Note: Additional: COMPARISON: None. FINDINGS: Status post renal transplant on 06/25/2025 Kidney size: 10.6 x 5.6 x 5.1 cm Kidney volume: 158 mL There is a 8.8 x 2.4 cm fluid collection adjacent to the kidney. Superior pole resistive index: 0.67 Mid kidney resistive index: 0.67 Inferior pole resistive index: 0.72 Main renal artery resistive index: 0.78 Renal artery anastomosis resistive index: 0.79 Peak systolic velocity of the main renal artery: 251.8 cm/s Peak systolic velocity of the renal artery anastomosis: 335.8 cm/s Peak systolic velocity of the iliac artery adjacent to the anastomosis: 329.3 cm/s Perfusion is seen in all renal segments. The renal vein is patent. Renal echotexture is normal. There is no evidence of a solid renal mass, renal calculi, or hydronephrosis. No perinephric fluid is present. Webster catheter seen within a partially decompressed bladder. Procedure Note Piedad Cardozo MD - 06/27/2025 PROCEDURE: US RENAL TRANSPLANT, DATE/TIME OF EXAM: 06/27/2025 2:10 PM, LOCATION [facility] INDICATION: Z94.0: S/P kidney transplant (HCC) ADDITIONAL CLINICAL INFORMATION: Ordering Provider Reason For Exam: s/p kidney transplant with increaseCr Technologist Note: Additional: COMPARISON: None. FINDINGS: Status post renal transplant on 06/25/2025 Kidney size: 10.6 x 5.6 x 5.1 cm Kidney volume: 158 mL There is a 8.8 x 2.4 cm fluid collection adjacent to the kidney. Superior pole resistive index: 0.67 Mid kidney resistive index: 0.67 Inferior pole resistive index: 0.72 Main renal artery resistive index: 0.78 Renal artery anastomosis resistive index: 0.79 Peak systolic velocity of the main renal artery: 251.8 cm/s Peak systolic velocity of the renal artery anastomosis: 335.8 cm/s Peak systolic velocity of the iliac artery adjacent to the anastomosis: 329.3 cm/s Perfusion is seen in all renal segments. The renal vein is patent. Renal echotexture is normal. There is no evidence of a solid renal mass, renal calculi, or hydronephrosis. No perinephric fluid is present. Webster catheter seen within a partially decompressed bladder. IMPRESSION: 1.Normal transplant renal size. 2.There is a 8.8 x 2.4 cm perinephric fluid around the transplantedkidney. 3.No evidence of nephrolithiasis, hydronephrosis, or solid renal mass. 4.Increased peak systolic velocities in the main renal artery, renalartery anastomosis and iliac artery adjacent to the anastomosis is likely dueto reduced vessel caliber secondary to postoperative edema. Blood flow inthe distal kidney including the arcuate vessels is maintained adequately. Recommend close attention to follow-up. > Dictated by Maureen Murdock MD (vice president). > Dictated by Relief Salesperson I, Piedad Cardozo MD have personally reviewed and interpreted this examination/study. > Interpreting Provider: Piedad Cardozo MD on 06/27/2025 3:31 PM us Elenita Daniella REAL ESTATE OPERATIONS MANAGER-LICENSED ESTHETICIAN US ORDERABLES Final Resul t * (ABNORMAL) BLOOD GAS+COOX+LYTES+METAB ARTERIAL POCT (06/25/2025 11:13 AM CDT) Only the most recent of5 resultswithin the time period is included. pH Arterial 7.38 7.35 - 7.45 pH 06/25/2025 11:13 AM [facility] pO2 Arterial 104(H) 80 - 100 mmHg 06/25/2025 11:13 AM [facility] pCO2 Arterial 45 35 - 45 mmHg 11:13 AM [facility] HCO3 Arterial 26.6 20.0 - 30.0 mmol/L 06/25/2025 11:13 AM [facility] BE Arterial 1.2 -2.0 - 2.0 mmol/L 06/25/2025 11:13 AM [facility] Oxyhemoglobin Arterial 96.3 % 06/25/2025 11:13 AM [facility] Dexoyhemoglobin (HHB) % 3.7 % 06/25/2025 11:13 AM [facility] Methemoglobin <0.8 0.0 - 2.0 % 06/25/2025 11:13 AM [facility] Carboxyhemoglobin <0.4 0.0 - 2.0 % 2024 11:13 AM [facility] Comment:Carboxyhemoglobin No rmal Concentration: Non-smokers: 0-2%; Smokers: 0- 9%; Toxic: >20% O2 Content Arterial 13.8 Interpret within clinical context ml/dL 06/25/2025 11:13 AM [facility] Hemoglobin by COOX 10.1(L) 12.0 - 17.6 g/dL 06/25/2025 11:13 AM [facility] O2 Saturation Arterial 96 90 - 100 % 06/25/2025 11:13 AM [facility] Sodium Whole Blood 133(L) 135 - 145 mmol/L 06/25/2025 11:13 AM [facility] Potassium Whole Blood 3.6 3.5 - 5.5 mmol/L 06/25/2025 11:13 AM [facility] Chloride WB 101 78 - 107 mmol/L 06/25/2025 11:13 AM [facility] Calcium Ionized 1.11 mmol/L 11:13 AM [facility] Ionized Calcium pH Adjusted 1.10(L) 1.19 - 1.34 mmol/L 06/25/2025 11:13 AM [facility] Anion Gap (AG) Arterial 5(L) 6 - 16 mmol/L 06/25/2025 11:13 AM [facility] Glucose WB 118(H) 70 - 99 mg/dL 06/25/2025 11:13 AM [facility] Lactic Acid Whole Blood 2.7(H) <=2.0 mmol/L 06/25/2025 11:13 AM [facility] Blood, arterial ARTERIAL BLOOD SPECIMEN / Unknown 06/25/2025 11:13 AM CDT 06/25/2025 11:[address] [facility] us Ban Alfaro MD LAB - POINT OF CARE ORD ERABLES Final Result [facility] [address] [place] [address], [facility] [phone] * HLA TYPING DNA LOW RESOLUTION DR,DQ (06/25/2025 10:46 AM CDT) DR DQ Low Resolution DRB1-1 *04 06/30/2025 4:01 PM T [facility] ([facility]) DR DQ Low Resolution DRB1-2 *07 06/30/2025 4:01 PM CDT [facility] ([facility]) DR DQ Low Resolution DQB1-1 *02 06/30/2025 4:01 PM CDT [facility] ([facility]) DR DQ Low Resolution DQB1-2 *03 (DQ8) 06/30/2025 4:01 PM CDT [facility] ([facility]) DR DQ Low Resolution DRB3-1 Negative 06/30/2025 4:01 PM CDT [facility] ([facility]) DR DQ Low Resolution DRB3-2 Negative 06/30/2025 4:01 PM CDT [facility] ([facility]) DR DQ Low Resolution DRB4-1 *01 06/30/2025 4:01 PM CDT [facility] ([facility]) DR DQ Low Resolution DRB4-2 Negative 06/30/2025 4:01 PM CDT [facility] ([facility]) DR DQ Low Resolution DRB5-1 Negative 06/30/2025 4:01 PM CDT [facility] ([facility]) DR DQ Low Resolution DRB5-2 Negative 06/30/2025 4:01 PM CDT [facility] ([facility]) DR DQ Low Resolution Methodology Real Time PCR 06/30/2025 4:01 PM CDT [facility] ([facility]) Comment DR DQ Low Resolution CONFIRM TYPE FOR UNOS [id number] 06/30/2025 4:01 PM CDT [facility] ([facility]) DR DQ Low Resolution test date [id number] 06/30/2025 4:01 PM CDT [facility] ([facility]) Comment: Methodology - Real-Time PCR This test was developed and its performance characteristics determined by the [facility]. It has not been cleared [...] high complexity clinical laboratory testing. CLIA ID# [id number] Performed at: [facility], [address] [place] [id number] Cnmt: Johan Wilson, Ph.D., D([facility]), Blood BLOOD SPECIMEN / Unknown No Charge Blood Draw / Unknown 06/25/2025 10:46 AM CDT 06/29/2025 10:47 AM CDT Augustin Chacko MD LAB - BLOOD BANK ORDERABLES Final Result [facility] ([facility]) [facility] [address] * HLA TYPING DNA LOW RESOLUTION A,B,C (06/25/2025 10:46 AM CDT) ABC DNA A1 *02 06/30/2025 4:01 PM CDT [facility] ([facility]) ABC DNA A2 *33 06/30/2025 4:01 PM CDT [facility] ([facility]) ABC DNA B1 *13 06/30/2025 4:01 PM CDT [facility] ([facility]) ABC DNA B2 *15 (B72) 06/30/2025 4:01 PM CDT [facility] ([facility]) ABC DNA BW1 4 06/30/2025 4:01 PM CDT [facility] ([facility]) ABC DNA BW2 6 06/30/2025 4:01 PM CDT [facility] ([facility]) ABC DNA C1 *02 06/30/2025 4:01 PM CDT [facility] ([facility]) ABC DNA C2 *06 06/30/2025 4:01 PM CDT [facility] ([facility]) ABC DNA Methodology Real Time PCR 06/30/2025 4:01 PM CDT [facility] ([facility]) Comment ABC DNA CONFIRM TYPE FOR UNOS [id number] 06/30/2025 4:01 PM CDT [facility] ([facility]) ABC DNA Test Date [id number] 4:01 PM CDT [facility] ([facility]) Comment: Methodology - Real-Time PCR This test was developed and its performance characteristics determined by the [facility]. It has not been cleared [...] high complexity clinical laboratory testing. CLIA ID# [id number] Performed at: [facility], [address] [place] [address] Cnmt: Johan Wilson, Ph.D., D([facility]), Blood BLOOD SPECIMEN / Unknown No Charge Blood Draw / Unknown 06/25/2025 10:46 AM CDT 06/29/2025 10:47 AM CDT Augustin Chacko MD LAB - BLOOD BANK ORDERABLES Final Result Performing Organization Address [facility]/ZIP Co de Phone Number [facility] ([facility] [address] [place], [place] [id number] [place] [address] * (ABNORMAL) PT-INR (06/25/2025 9:01 AM CDT) Only the most recent of2 resultswithin the time period is included. PT 16.5(H) 12.1 - 14.8 Seconds 06/25/2025 10:20 AM CDT [facility] INR 1.4 See Comment 06/25/2025 10:20 AM T [facility] Comment:The suggested therap eutic range for standard coumadin (warfarin) therapy is an INR of 2.0-3.0. For high-risk patients (Mechanical Mitral Valve Prosthesis, etc.), the suggested prophylactic therapeutic range is an INR of 2.5-3.5. Blood BLOOD SPECIMEN / Unknown Venipuncture / Unknown 06/25/2025 9:01 AM CDT 06/25/2025 9:06 AM CDT Ban Alfaro MD LAB - COAGULATION ORDER TYLER Final Result Performing Organization Address City/[facility]/ZIP Co de Phone Number [facility] [address] [place] [address], [place] [phone] * ETT LINE PERFORMABLE (06/25/2025 8:13 AM CDT) Narrative Christiana Rausch MD - 06/25/2025 8:13 AM CDT Christiana Rausch MD 06/25/2025 8:13 AM Endotracheal Tube Placement: Patient Location: OR. Intubation Event Date/Time: 06/25/2025 7:46 AM Procedure: intubation ([id number]) Procedure Section: Sedation: under general anesthesia. Indications for Airway Management: anesthesia Procedure pretreatments used? No Induction: standard IV Patient Position: sniffing Mask Ventilation: easy. Blade Type: Archer Blade Size: 2 Laryngoscopy View: grade 1 (full cords) Intubation Adjuncts: stylet and other - please comment (bougie) Tube: endotracheal tube Placement: oral Tube type: cuff - inflated Tube Size (MM): 8 Depth of Insertion (CM): 25 Measured From: teeth Cuff volume (mL): 8 Cuff Inflated With: air Number of Attempts: 1. Placement Verified By: direct visualization, bilateral breath sounds, chest auscultation and CO2 monitor Tube secured with: adhesive tape. Dentition unchanged? Yes Difficult Airway? No. Procedure Start Time: 06/25/2025 7:46 AM. Staff Section Anesthesia Provider: Christiana Rausch MD, Performed the procedure Provider #1: Marco Antonio Morris MD. Marco Antonio Morris MD GENERAL ANESTHESIA ORDER TYLER Final Result * BLOOD GAS ART+LYTES+METAB+COOX POC NOTIF (06/25/2025 8:07 AM CDT) Comment Notification Label Only - See Separate Report 06/25/2025 10:00 AM CDT [facility] Other MISCELLANEOUS SAMPLES / Unknown 06/25/2025 8:07 AM CDT 06/25/2025 8:48 AM CDT Marco Antonio Morris MD LAB - BLOOD GASES ORDERA BLES Final Result [address] [address], [facility] [phone] * ARTERIAL LINE PERFORMABLE (06/25/2025 8:06 AM CDT) Narrative Christiana Rausch MD - 06/25/2025 8:06 AM CDT Christiana Rausch MD 06/25/2025 8:06 AM Arterial Line Placement Procedure Note Patient Location: OR. Insertion Time: 06/25/2025 7:56 AM Procedure: Arterial Line ([id number]) Procedure Section Indications: continuous blood pressure monitoring and blood sampling needed. Consent: informed consent was obtained for the procedure. Alternatives Discussed: alternative treatment Skin Prep: Chloraprep. Orientation: Right. Site: radial. Site Identification: ultrasound guided with sterile sleeve and gel. Sterile Technique: cap, mask and sterile gloves. Gauge: 20. Seldinger Technique Used? Yes Number of Attempts: 1. Line Secured with: Tegaderm and tape. Procedure Tolerance: tolerated well, performed while patient under general anesthesia and no immediate complications. Events: none. Local Anesthetic Used? No Staff Section Anesthesia Provider: Christiana Rausch MD, Performed the procedure Provider #1: Marco Antonio Morris MD. Marco Antonio Morris MD GENERAL ANESTHESIA ORDER TYLER Final Result * URINE DRUG SCREEN IMMUNOASSAY (06/25/2025 6:[address] [facility]) [facility] Amphetamines Screen Urine Negative Negative: < 1000 ng/mL 06/25/2025 7:11 AM [facility] Barbiturates Screen Urine Negative Negative: < 200 ng/mL 06/25/2025 7:11 AM [facility] Benzodiazepine Screen Urine Negative Negative: < 200 ng/mL 06/25/2025 7:11 AM [facility] Opiates Urine Negative Negative: < 300 ng/mL 06/25/2025 7:11 AM [facility] Cocaine Metabolites Urine Negative Negative: < 300 ng/mL 06/25/2025 7:11 AM [facility] Phencyclidine Screen Urine Negative Negative: < 25 ng/ml 06/25/2025 7:11 AM [facility] Cannabinoids Screen Urine Negative Negative: <50 ng/mL 06/25/2025 7:11 AM [facility] Methadone Screen Urine Negative Negative: < 300 ng/mL 06/25/2025 7:11 AM CDT [facility] Fentanyl Screen Urine Negative Negative: <1.5 ng/mL 06/25/2025 7:11 AM CDT [facility] Urine URINE / Unknown Collection / Unknown 06/25/2025 6:33 AM CDT 06/25/2025 6:40 AM CDT Narrative [facility] - 06/25/2025 7:11 AM CDT The Urine Toxicology Screening Panel does not screen for Propoxyphene, Meprobamate, Carisoprodol, Trazodone, jqqs-pzv-paefnnl medications and/or volatiles (Acetone, Isopropanol, Methanol or Ethylene Glycol). Ethanol, Salicylate, Acetaminophen, Tricyclic Antidepressants and several therapeutic drugs may be individually assayed in serum or plasma specimen. Toxicology testing by the [facility] is an aid to medical diagnosis and treatment of patients. No documented chain of custody was maintained. Results are intended to be used for clinical purposes only. Ban Alfaro MD LAB - URINE CHEMISTRY O RDERABLES Final Result [facility] [address] [place] [address], [facility] [phone] * EKG 12-LEAD (06/25/2025 2:34 AM CDT) Ventricular Rate 70 BPM [facility] MUSE Atrial Rate 70 BPM [facility] MUSE P-R Interval 200 ms [facility] MUSE QRS Duration ms 106 ms [facility] MUSE Q-T Interval ms 402 ms [facility] MUSE QTC Calculation (Bezet) 434 ms [facility] MUSE Calculated P [place] 34 degrees [facility] MUSE Calculated R [place] -46 degrees [facility] MUSE Calculated T [place] 41 degrees [facility] MUSE Interpretation EKG NORMAL SINUS RHYTHM INCOMPLETE RIGHT BUNDLE BRANCH BLOCK LEFT ANTERIOR FASCICULAR BLOCK NONSPECIFIC T WAVE ABNORMALITY ABNORMAL ECG WHEN COMPARED WITH ECG OF 15-JAN-2025 07:52, NO SIGNIFICANT CHANGE WAS FOUND Confirmed by SANJANA FUNEZ MD ([id number]) on 06/26/2025 11:29:56 PM [facility] MUSE 06/25/2025 2:34 AM CDT 06/26/2025 11:29 PM CDT us Ban Alfaro MD ECG ORDERABLES Edited Result - Final [facility] * FLOW HLA XM DONOR (06/25/2025 2:29 AM CDT) Only the most recent of2 resultswithin the time period is included. Flow XM Donor ID [id number] 06/30/2025 9:55 AM CDT [facility] ([facility]) Flow XM Relation Donor 06/30/2025 9:55 AM CDT [facility] ([facility]) Flow XM Serum Date 06/26/2025 06/30/2025 9:55 AM CDT [facility] ([facility]) Flow XM T Cell Neg^-1 06/30/2025 9:55 AM CDT [facility] ([facility]) Flow XM B Cell Neg^-37 06/30/2025 9:55 AM CDT [facility] ([facility]) Flow XM Test Date 06/29/2025 06/30/2025 9:55 AM CDT [facility] ([facility]) Comment: Methodology - Flow Cytometric T- and B-Cell Crossmatching This test was developed and its performance characteristics determined by the [facility]. It has not been cleared [...] high complexity clinical laboratory testing. CLIA ID# [id number] Performed at: [facility], [address] [place] [phone] Cnmt: Johan Wilson, Ph.D., D([facility]), Blood BLOOD SPECIMEN / Unknown Venipuncture / Unknown 06/25/2025 2:29 AM CDT 06/25/2025 2:35 AM CDT Ban Alfaro MD LAB - BLOOD BANK ORDERA BLES Final Result [facility] ([facility]) [address] * HEPATITIS B SURFACE AG RFLX NEUT DONOR (06/25/2025 2:29 AM CDT) Pathologist [facility] Hepatitis B Virus Surface Antigen Negative Negative 06/27/2025 7:09 PM CDT [facility] ([facility]) Comment:Test performed with [employer] s HBsAg kit. Blood BLOOD SPECIMEN / Unknown Venipuncture / Unknown 06/25/2025 2:29 AM CDT 06/25/2025 2:35 AM CDT Narrative [facility] ([facility]) - 06/27/2025 7:09 PM CDT Performed at: [facility] [address] [place] [phone] Cnmt: Anthony Kiran [facility], Phone: [phone] Ban Alfaro MD LAB - CHEMISTRY ORDERAB LES Final Result [facility] ([facility]) [address] [place] [address] * PREPARE (CROSSMATCH) RBC UNIT(S), 2 Units (06/25/2025 2:29 AM CDT) Pathologist [facility] Unit Description -1 LR PRBC LV [facility] B[facility]OD [facility] LAB Unit ABO B [facility] B[facility]OD [facility] Unit Rh POS [facility] Product Number R52 [facility] B LOOD BANK LAB Unit Donor # [id number] [facility] Unit Status released [facility] BLOO D BANK LAB Product Code [id number] [facility] BLO OD BANK LAB Blood Type Barcode 7300 [facility] B[facility] LAB Expiration Date [id number] S BLOOD BANK LAB Unit Description AS1 LR PRBC [facility] B[facility]OD [facility] LAB Unit ABO B [facility] BLOOD B[facility] LAB Unit Rh POS [facility] BLOOD [facility] LAB Product Number R02 [facility] B LOOD [facility]ANK LAB Unit Donor # [id number] [facility] BLOOD [facility] LAB Unit Status released [facility] BLOO D BANK LAB Product Code [id number] [facility] BLO OD BANK LAB Blood Type Barcode 7300 [facility] BLOOD [facility]ANK LAB Expiration Date S BLOOD BANK LAB Blood Bank BLOOD SPECIMEN / Unknown 06/25/2025 2:29 AM CDT 06/25/2025 2:48 AM CDT Ban Alfaro MD LAB - BLOOD BANK ORDERA BLES Final Result [facility] B[facility] LAB [address] [place] [address], [facility] [phone] * HEPATITIS C ANTIBODY DONOR (06/25/2025 2:29 AM CDT) [facility] Donor Hepatitis C Antibody Negative Negative 06/27/2025 7:09 PM CDT [facility] ([facility]) Comment:Test performed with [employer] s Anti-HCV II kit. Blood BLOOD SPECIMEN / Unknown Venipuncture / Unknown 06/25/2025 2:29 AM CDT 06/25/2025 2:35 AM CDT Narrative [facility] ([facility]) - 06/27/2025 7:09 PM CDT Performed at: [facility] [address] [place] [phone] Cnmt: Anthony Kiran [facility], Phone: [phone] Ban Alfaro MD LAB - CHEMISTRY ORDERAB LES Final Result [facility] ([facility]) [address] [place] [address] * (ABNORMAL) PTH INTACT W/O CALCIUM (06/25/2025 2:29 AM CDT) [facility] PTH Intact 936.5(H) 8.0 - 77.0 pg/mL 06/25/2025 3:13 AM CDT [facility] Blood BLOOD SPECIMEN / Unknown Venipuncture / Unknown 06/25/2025 2:29 AM CDT 06/25/2025 2:38 AM CDT Ban Alfaro MD LAB - CHEMISTRY ORDERAB LES Final Result Performing Organization Address City/[facility]/ZIP Co de Phone Number [address] [address], [facility] [phone] * HIV-1 HIV-2 ANTIBODY + HIV P24 AG PANEL (06/25/2025 2:29 AM CDT) HIV Antigen/Antibod y 1 & 2 Non-reacti ve Non-react xavier 06/25/2025 3:37 AM CDT [facility] Comment:No Laboratory eviden ce of HIV infection. Blood BLOOD SPECIMEN / Unknown Venipuncture / Unknown 06/25/2025 2:29 AM CDT 06/25/2025 2:35 AM CDT Ban Alfaro MD LAB - CHEMISTRY ORDERAB LES Final Result Performing Organization Address [facility] Co de Phone Number [address] [address], [facility] [phone] * (ABNORMAL) HEPATITIS B SURFACE ANTIBODY QUANT (06/25/2025 2:29 AM CDT) Pathologist [facility] Hepatitis B Virus Surface Antibody Reactive( A) Non-react xavier 06/25/2025 3:37 AM CDT [facility] Comment: > 12 mIU/mL Hepatitis B surface Antibody (HBsAb). Reactive for HBsAb - individual is considered immune to Hepatitis B Virus infection. Hepatitis B Surface Antibody Quantitative 60.1(H) <8.0 mIU/mL 06/25/2025 3:37 AM CDT [facility] Comment: Hepatitis B Surface Antibody Numeric Result Interpretation: Nonreactive: <8.0 mIU/mL Indeterminate: 8.0 - 12.0 mIU/mL Reactive: >12.0 mIU/mL Blood BLOOD SPECIMEN / Unknown Venipuncture / Unknown 06/25/2025 2:29 AM CDT 06/25/2025 2:35 AM CDT Narrative [facility] - 06/25/2025 3:37 AM CDT This assay should not be used for blood, plasma, or tissue donor screening. This assay is not recommended for neonates born to HBV-infected or suspected HBV-infected mothers. Ban Alfaro MD LAB - SEROLOGY ORDERABL ES Final Result [facility] [address] [place] [address], [facility] [phone] * HEPATITIS C RNA QUANTITATIVE (06/25/2025 2:29 AM CDT) Pathologist [facility] Hepatitis C RNA PCR, Interp Not detected Not detected 06/26/2025 8:41 AM CDT [facility] Hepatitis C Quant by PCR, Log NA log IU/mL 06/26/2025 8:41 AM CDT [facility] Blood BLOOD SPECIMEN / Unknown Venipuncture / Unknown 06/25/2025 2:29 AM CDT 06/25/2025 2:35 AM CDT Narrative [facility] - 06/26/2025 8:41 AM CDT The Hepatitis C viral (HCV) RNA analysis utilized a serum sample, real-time reverse cleaning manager PCR, and is reported as Not Detected, Detected (<15 IU/mL), Quantity (IU/mL) or >100,000,000 IU/mL. The analytic sensitivity (LOD) of the assay is 15 IU/mL. The linear range is from 15 IU/mL to 100,000,000 IU/mL. Values less than 15 IU/mL are reported as Detected (<15 IU/mL). Values greater than 100,000,000 IU/mL are reported as >100,000,000 IU/mL. The detection/quantitation of HCV RNA in serum is based on the isolation of HCV RNA with reverse cleaning manager of genomic HCV RNA followed by real-time PCR in the presence of an unrelated RNA internal control. The internal control ensures that RNA is isolated, and that no general significant inhibitors of the RT-PCR process are present. The analysis was performed using a U.S. FDA approved test methodology David sunshine HCV. us Ban Alfaro MD LAB - CHEMISTRY ORDERAB LES Final Result [facility] [address] [place] [address], [facility] [phone] * TRANSFERRIN (06/25/2025 2:29 AM CDT) Transferrin 181 174 - 382 mg/dL 06/25/2025 3:18 AM CDT [facility] Blood BLOOD SPECIMEN / Unknown Venipuncture / Unknown 06/25/2025 2:29 AM CDT 06/25/2025 2:35 AM CDT Ban Alfaro MD LAB - CHEMISTRY ORDERAB LES Final Result Performing Organization Address City/[facility]/ZIP Co de Phone Number [facility] [address] [place] [address], [facility] [phone] * (ABNORMAL) HEMOGLOBIN A1C (06/25/2025 2:29 AM CDT) Hemoglobin A1c 5.8(H) <=5.6 % 06/25/2025 12:17 PM CDT [facility] Estimated Average Glucose 120 mg/dL 06/25/2025 12:17 PM CDT [facility] Comment: HbA1c Interpretation: Normal : < 5.7% Pre-diabetes: 5.7-6.4% Diabetes: Equal to or greater than 6.5% Test results diagnostic of diabetes should be repeated for confirmation. Treatment target values recommended by ADA and other clinical organizations should be used to evaluate metabolic control in patients. Reference: [place] [employer], Standards of Care in Diabetes -2020 In patients 70 years and older consider HbA1c target range of 7.0-7.5% (Reference: Jay Giang et al. JAMDA. 2012) The Sebia assay for the measurement of HbA1c is a National Glycohemoglobin Standardization Program (NGSP) certified method. Blood BLOOD SPECIMEN / Unknown Venipuncture / Unknown 06/25/2025 2:29 AM CDT 06/25/2025 2:38 AM CDT Ban Alfaro MD LAB - CHEMISTRY ORDERAB LES Final Result Performing Organization Address City/[facility]/ZIP Co de Phone Number [facility] [address] [place] [address], [facility] [phone] * TYPE + SCREEN PANEL (06/25/2025 2:29 AM CDT) Pathologist [facility] Antibody Screen NEG 3:27 AM CDT [facility] LAB ABO Rh B POS 06/25/2025 3:27 AM CDT [facility] Blood Bank BLOOD SPECIMEN / Unknown Venipuncture / Unknown 06/25/2025 2:29 AM CDT 06/25/2025 2:48 AM CDT Ban Alfaro MD LAB - BLOOD BANK ORDERA BLES Final Result Performing Organization Address City/[facility]/ZIP Co de Phone Number [facility] [address] [place] [address], [facility] [phone] * (ABNORMAL) IRON BLOOD (06/25/2025 2:29 AM CDT) [facility] Iron 46(L) 50 - 175 ug/dL 06/25/2025 3:18 AM CDT [facility] Blood BLOOD SPECIMEN / Unknown Venipuncture / Unknown 06/25/2025 2:29 AM CDT 06/25/2025 2:35 AM CDT Ban Alfaro MD LAB - CHEMISTRY ORDERAB LES Final Result Performing Organization Address City/[facility]/ZIP Co de Phone Number [address] [address], [facility] [phone] * HEPATITIS B CORE ANTIBODY TOTAL (06/25/2025 2:29 AM CDT) Pathologist [facility] HBc Antibody Total Non-reacti ve Non-reacti ve 06/25/2025 3:37 AM CDT [facility] Blood BLOOD SPECIMEN / Unknown Venipuncture / Unknown 06/25/2025 2:29 AM CDT 06/25/2025 2:35 AM CDT us Ban Alfaro MD LAB - CHEMISTRY ORDERAB LES Final Result Performing Organization Address City/[facility]/ZIP Co de Phone Number [address] [address], [place] [phone] * BILIRUBIN DIRECT (06/25/2025 2:29 AM CDT) Bilirubin Conjugated 0.1 0.1 - 0.5 mg/dL 06/25/2025 3:07 AM CDT [facility] Blood BLOOD SPECIMEN / Unknown Venipuncture / Unknown 06/25/2025 2:29 AM CDT 06/25/2025 2:39 AM CDT us Ban Alfaro MD LAB - CHEMISTRY ORDERAB LES Final Result Performing Organization Address [facility]/ZIP Co de Phone Number [address] [address], [place] [phone] * (ABNORMAL) FERRITIN (06/25/2025 2:29 AM CDT) Ferritin 682(H) 22 - 275 ng/mL 06/25/2025 3:37 AM CDT [facility] Blood BLOOD SPECIMEN / Unknown Venipuncture / Unknown 06/25/2025 2:29 AM CDT 06/25/2025 2:35 AM CDT us Ban Alfaro MD LAB - CHEMISTRY ORDERAB LES Final Result Performing Organization Address City/[facility]/ZIP Co de Phone Number [address] [address], [place] [phone] * (ABNORMAL) LIPID PROFILE (06/25/2025 2:29 AM CDT) Cholesterol Total 119 <200 mg/dL 06/25/2025 3:07 AM CDT [facility] HDL 25(L) >40 mg/dL 06/25/2025 3:07 AM [facility] Comment: ATP III Classification of HDL Cholesterol: <40 mg/dL: Considered a major risk factor. >60 mg/dL: Considered a negative risk factor. LDL Calculated 39 <100 mg/dL 06/25/2025 3:07 AM T [facility] Comment: ATP III Classification of LDL Cholesterol: <100 mg/dL: Optimal 100 - 129 mg/dL: Near Optimal/Above Optimal 130 - 159 mg/dL: Borderline High 160 - 189 mg/dL: High >190 mg/dL: Very High LDL is calculated using the Friedewald equation. Triglycerides 276(H) <150 mg/dL 06/25/2025 3:07 AM [facility] Comment: ATP III Classification of Triglycerides: <150 mg/dL: Normal 150 - 199 mg/dL: Borderline High 200 - 400 mg/dL: High >500 mg/dL: Very High Blood BLOOD SPECIMEN / Unknown Venipuncture / Unknown 06/25/2025 2:29 AM CDT 06/25/2025 2:39 AM CDT Ban Alfaro MD LAB - CHEMISTRY ORDERAB LES Final Result [facility] [address] [place] [address], [facility] [phone] * SARS-COV-2 (COVID-19) RAPID (06/25/2025 2:24 AM CDT) COVID-19 PCR Not detected Not detected 06/25/20 3:02 AM CDT [facility] Microbiology SPECIMEN FROM NASOPHARYNGEAL STRUCTURE / Unknown Collection / Unknown 06/25/2025 2:24 AM CDT 06/25/2025 2:29 AM CDT Narrative [facility] - 06/25/2025 3:02 AM CDT The Cepheid Xpert Xpress SARS-COV-2 has been authorized by the Food and Drug Administration (FDA) under an Emergency Use Authorization (EUA). This test has been validated in accordance with the FDA's guidance document Policy for Diagnostic Testing in Laboratories Certified to perform High Complexity Testing under CLIA prior to Emergency Use Authorization for Coronavirus Disease-2019 during the Public Health Emergency issued on December 10, 2019. FDA independent review of this validation is pending. This test is only authorized for the duration of the time the declaration that circumstances exist justifying the authorization of emergency use of in vitro diagnostic tests for detection of SARS-COV-2 virus and/or diagnosis of COVID-19 infection under 564(b) (1) of the Act. 21 U.S.C. 360bbb-3 (b) (1), unless the authorization is terminated or revoked sooner. Fact Sheets for this EUA assay are available upon request. Ban Alfaro MD LAB - MICROBIOLOGY ORDE RABLES Final Result Performing Organization Address City/[facility]/ZIP Co de Phone Number [facility] [address] [place] [address], [facility] [phone] * PREPARE FFP UNIT(S), 2 Units (06/25/2025 1:59 AM CDT) Unit Description N/A [facility] Blood Bank BLOOD SPECIMEN / Unknown 06/25/2025 1:59 AM CDT Ban Aflaro MD LAB - BLOOD BANK ORDERA BLES Final Result Performing Organization Address City/[facility]/ZIP Co de Phone Number [facility] [address] [place] [address], [facility] [phone] * HLA ANTIBODY SCREEN LUM CLASS 2 SAB (05/26/2025 1:00 PM CDT) % PRA 0 06/07/2025 5:35 PM CDT [facility]) Class 2 SAB Test Date [id number] 06/07/2025 5:35 PM CDT [facility] ([employer]) Comment: Methodology - Luminex Bead-Based Immunoassay. This test was developed and its performance characteristics determined by the [facility]. It has not been cleared [...] high complexity clinical laboratory testing. CLIA ID# [id number] Performed at: [facility], [address] [place] [phone] Cnmt: Johan Wilson, Ph.D., D([facility]), Blood BLOOD SPECIMEN / Unknown No Charge Blood Draw / Unknown 05/26/2025 1:00 PM CDT 05/31/2025 1:00 PM CDT Augustin Chacko MD LAB - BLOOD BANK ORDERABLES Final Result [facility] ([facility]) [address] * HLA ANTIBODY SCREEN LUM CLASS 1 SAB (05/26/2025 1:00 PM CDT) Pathologist [facility] % PRA 0 06/07/2025 5:35 PM CDT [facility] ([facility]) Class 1 SAB Test Date [id number] 06/07/2025 5:35 PM CDT [facility] ([facility]) Comment: Methodology - Luminex Bead-Based Immunoassay. This test was developed and its performance characteristics determined by the [facility]. It has not been cleared or [...] high complexity clinical laboratory testing. CLIA ID# [id number] Performed at: [facility], [address] [place] [phone] Cnmt: Johan Wilson, Ph.D., D([facility]), Blood BLOOD SPECIMEN / Unknown No Charge Blood Draw / Unknown 05/26/2025 1:00 PM CDT 05/31/2025 1:00 PM CDT Augustin Chacko MD LAB - BLOOD BANK ORDERABLES Final Result [facility] ([facility]) [address] [place] [address], [facility] from Last 3 Months Insurance [facility] [email or web address] Address: [address] [address] [facility] Address: [address] [address] MEDICARE Advance Directives * Full Code (Latest Code Status on File) Date Activated Date Inactivated Comments 06/25/2025 11:45 AM 06/30/2025 5:57 PM * Full Code Date Activated Date Inactivated Comments 03/02/2024 5:32 PM 03/02/2024 9:52 PM * Full Code Date Activated Date Inactivated Comments 01/28/2020 7:33 AM 02/03/2020 3:16 PM Care Teams Stations Superintendent Relationship Specialty Start Date End Date None, Physician PCP - General 07/07/25
--- OUTSIDE RECORDS SUMMARY | 2025-07-10 12:02 | XMS_ITS | Encounter Summary ---
Author Organization [facility] Address [address] [place] [address] Care Team Providers Care Home Appliance Installer Name Role Phone Thao Mcqueen Primary Care Provider Unavailab le None, Physician Primary Care Provider Unavailabl e Encounter Details Date Type Department Care Team (Late st Contact Info) Description 08/26/2024 Telephone [facility] - Centralized Scheduling [address] [place] [address] Radha Roper MD [address] [address] Social History Tobacco Use Types Packs/Day Years Used Date Smoking Tobacco: Former Cigarettes 1 23 1 975 - 1997 Smokeless Tobacco: Never Alcohol [...] documented as of this encounter Functional Status * Is person deaf or have serious hearing difficulty? Answer Date of Assessment Author No 03/02/2024 5:47 PM CDT Gill Dunaway RN * Is person blind or have serious difficulty seeing? Answer Date of Assessment Author No 03/02/2024 5:47 PM CDT Gill Dunaway RN * Does person have serious difficulty walking/climbing stairs? Answer Date of Assessment Author No 03/02/2024 5:47 PM CDT Gill Dunaway RN * Does person have difficulty dressing/bathing? Answer Date of Assessment Author No 03/02/2024 5:47 PM CDT Gill Dunaway RN * Does person have difficulty doing errands alone? Answer Date of Assessment Author No 03/02/2024 5:47 PM CDT Gill Dunaway RN documented as of this encounter Mental Status * Does person have difficulty concentrating/remembering/making decisions? Answer Entry Date Author No 03/02/2024 5:47 PM CDT Gill Dunaway RN documented in this encounter Plan of Treatment Upcoming Encounters Date Type Department Care Team (Late st Contact Info) Description 07/18/2025 9:00 AM CDT Office Visit [facility] [address] [facility] [place] [phone] 07/26/2025 10:15 AM CDT Procedure visit [facility] - Urology [address] [facility] [place] [phone] Samanta Harden, [address] [facility] [address] [place] [address] 10/16/2025 10:20 AM PRESSURE WASHER Office Visit [facility] - Cardiology [address] [facility] [address] [place] [address] Radha Roper MD [address] [facility] [address] OF CARDIOLOGY [address] [place] [address] documented as of this encounter Goals Goal Patient Goal Type Associated Problems Recent Progress Patient-Stated? Author Blood Pressure < 140/90 Blood Pressure 97/55( 025 9:25 AM CDT) Antonette Zheng RN documented as of this encounter Visit Diagnoses Not on filedocumented in this encounter Additional Health Concerns Infection Onset Date Last Indicated Resolved Time COVID-19 Under Investigation 01/15/2025 01/15/2025 01/15/2025 8:40 AM CDT COVID-19 Under Investigation 06/25/2025 06/25/2025 06/25/2025 2:13 AM CDT COVID-19 Under Investigation 06/25/2025 06/25/2025 06/25/2025 3:02 AM CDT documented as of this encounter Care Teams Home Appliance Installer Relationship Specialty Start Date End Date Thao Mcqueen Update Information PCP - General 08/22/24 07/06/25 None, Physician PCP - General 07/07/25 documented as of this encounter
--- OUTSIDE RECORDS SUMMARY | 2025-07-10 12:02 | XMS_ITS | Patient Health Record ---
Author Organization [facility] Address [facility] [address] Care Team Providers Care Dental Laboratory Assistant Name Role Phone [place], [facility] Primary Care Provider Dylan Victoria Unavailable Unavailable Allergies Allergen (clinical drug ingredient) Drug/Non Drug Allergy documented on EMR Reaction Allergy Type Onset Date Status morphine Morphine hallucinations Drug Allergy Ac tive Reason For Referral No Information Medications Medication SIG (Take, Route, Frequency, Duration) Notes Start Date End Date Status NIFEdipine 02/16/2025 Active Magnesium 400 MG as directed Orally 02/16/2025 Active Atorvastatin Calcium 80 MG 1 tablet Oral ly Once a day; Duration: 30 day(s) 02/16/2025 Active Omeprazole 20 MG 1 capsule 1/2 to 1 h our before morning meal Orally Once a day; Duration: 30 day(s) 02/16/2025 Active Tamsulosin HCl 02/16/2025 Acti ve Warfarin Sodium 02/16/2025 Act xavier Social History Tobacco Use: Social History Observation Description Date Details (start date - stop date) Former Smoker NA - NA Sex Assigned At : Social History Observation Description Sex Assigned At Male Tobacco Control (Standard) Question Answer Notes Tobacco use: Former smoker How long has it been since you last smoked? 5-10 years Problems Problem Type SNOMED Code ICD Code Onset Dates Problem Status W/U Status Risk Notes Problem Essential hypertension (94268493) Essential (primary) hypertension (I10) Active confirmed Problem End stage renal disease (35384266) End stage renal disease (N18.6) Active confirmed Problem Gastroesophageal reflux disease (715050717) GERD without esophagitis (K21.9) Active confirmed Problem Dependence on renal dialysis (447002622) Dialysis patient (Z99.2) Active confirmed Vital Signs Heart Rate 100 /min 02/16/2025 Temperature 98.4 degrees Fahrenheit 02/16/2025 Respiratory Rate 18 /min 02/16/2025 Height-cm 175.26 cm 02/16/2025 Oximetry 98 % 02/16/2025 Blood pressure diastolic 87 mm Hg 02/16/2025 Weight-kg 96.62 kg 02/16/2025 Height 69 in 02/16/2025 Blood pressure systolic 139 mm Hg 02/16/2025 Weight 213 lbs 02/16/2025 BMI 31.45 kg/m2 02/16/2025 Encounters Encounter Location Date Provider Diagnosis [facility] [address] [place], [place] [address] 02/16/2025 Dylan Tre Acute conjunctivitis of left eye, unspecified acute conjunctivitis type H10.32 Assessments Encounter Date Diagnosis (ICD Code) Assessment Notes Treatment Notes Treatment Clinical Notes Section Notes 02/16/2025 Acute conjunctivitis of left eye, unspecified acute conjunctivitis type (ICD-10 - H10.32) Kemal is a 69-year-old male with a history of end-stage renal disease on dialysis, hypertension, and GERD, presenting with left eye pain and purulent drainage for one week. The patient's symptoms, including matted eyes in the morning and continuous purulent drainage throughout the day, are consistent with bacterial conjunctivitis. The physical examination revealing purulent drainage and crusting underneath the left eye supports this diagnosis. Given the patient's age and medical history, particularly end-stage renal disease, there is a higher risk for opportunistic infections and potential complications. The decision to start polymyxin eye drops is appropriate for empiric treatment of bacterial conjunctivitis. Considering the risk of cross-infection, treating both eyes was discussed as a preventive measure if no improvement occurs within 2-3 days. Left Eye ConjunctivitisAss essment: 69-year-old male presenting with left eye pain and purulent drainage for approximately one week. Patient reports matted eyes upon waking and continuous drainage throughout the day. The discharge is described as purulent and causes a burning sensation on the skin. Physical examination reveals purulent drainage and crusting underneath the left eye, consistent with bacterial conjunctivitis.Pl an:- Start polymyxin eye drops for the left eye- Treat both eyes to prevent cross-infection if no improvement in 2-3 days- Follow up if changes in vision occur- Recommend ophthalmology follow-up Plan Of Treatment No Information Insurance Providers Payer Name Payer Address Payer Phone Subscriber Number Group Number Insured Name Patient Relationship to Insured Coverage Start Date Coverage End Date [facility] OFFICE OF [facility] [address] JANINA GRANT [id number] Kemal Cali Self - patient is the insured Medical (General) History Medical History History ICD Code End stage renal disease N18.6 Dialysis patient Z99.2 Essential (primary) hypertension I10 GERD without esophagitis K21.9 Surgical History Surgery Date(Month/Year) umbilical hernia repair x 4 Cholecystectomy colon resection cardiac ablation x 3 Left fistula
--- OUTSIDE RECORDS SUMMARY | 2025-07-10 12:02 | XMS_ITS | Clinical Summary ---
Author Organization [facility] Address [facility] [place] [address] Care Team Providers Care Vice President For Instruction Name Role Phone Una Moody FUNMI Primary Care Provider Allergies No known active allergies Medications aspirin [...] on file Legal Sex Male 12:47 PM HANGER OFF Gender Identity Not on file Sexual Orientation Not on file Last Filed Vital Signs Vital Sign Reading Time Taken Comments Blood Pressure 149/89 10/25/2018 5:24 PM HANGER OFF Pulse 60 10/25/2018 5:24 PM HANGER OFF Temperature 36.6 C (97.8 F) 10/25/2018 1:03 PM HANGER OFF Respiratory Rate 20 10/25/2018 5:24 PM HANGER OFF Oxygen Saturation 98% 10/25/2018 5:24 PM HANGER OFF Inhaled Oxygen Concentration - - Weight 92.3 kg (203 lb 7.8 oz) 10/25/2018 1:03 P M HANGER OFF Height 175.3 cm (5' 9) 10/25/2018 1:03 PM HANGER OFF Body Mass Index 30.05 10/25/2018 1:03 PM HANGER OFF Plan of Treatment Health Maintenance Due Date Last Done Comments Colorectal Cancer Screening Colonoscopy (10 Years) 1955 Pneumococcal Vaccine: 50+ Years (3 of 3 - PCV20 or PCV21) 07/13/2024 07/13/2019, 07/13/2018 COVID-19 Vaccine ( season) 2025 08/31/2023, 06/30/2022, 02/05/2022, Additional history exists DTaP, Tdap and Td Vaccines (2 - Td or Tdap) 10/12/2027 10/12/2017, 11/27/2006 RSV Immunization or 60+ Years (1 - 1-dose 75+ series) 2029 Zoster Vaccines Completed 07/12/2021, 04/24/2021 Hepatitis C Completed 06/25/2025, 06/12, 06/25/2025, Additional history exists Meningococcal B Vaccine Aged Out No l onger eligible based on patient's age to complete this topic Meningococcal Vaccine Aged Out No alexandra mahamed eligible based on patient's age to complete this topic RSV Immunizations Under 20 Months Aged Out No longer eligible based on patient's age to complete this topic Care Teams Vice President For Instruction Relationship Specialty Start Date End Date Una Moody NP [address] [place] [address] PCP - General NURSE PRACTITIONER 10/25/18
--- OUTSIDE RECORDS SUMMARY | 2025-07-10 12:02 | XMS_ITS | Referral Summary ---
Author Organization [facility] Address [address] [place] [address] Phone Care Team Providers Care Terrazzo Tile Maker Name Role Phone Thao Mcqueen MD Primary Care Provider [phone] Source Comments This disclosure is being made pursuant to the Care Everywhere program,applicable federal and state laws, and may not contain all informationavailable regarding this patient.[facility] Practices Encounters Date Type Department Care Team Description 06/19/2025 Telephone [facility] Surgery Specialty - Transplant [address] [place] [phone] Sabiha Craig 06/15/2025 Orders/Notes [facility] Specialty - Transplant [address] [place] [address] Isabella Vigil, RN 06/14/2025 Telephone [facility] Specialty - Transplant [address] [place] [phone] Darlin Fontenot Ae 06/13/2025 Letter (Out) [facility] Specialty - Transplant [address] [place] [phone] Anna Sellers 06/13/2025 Abstract [facility] Specialty - Transplant [address] [place] [phone] Anna Sellers from Last 3 Months Social History Tobacco Use Types Packs/Day Years [...] on file Legal Sex Male 12:04 PM 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
--- OUTSIDE RECORDS SUMMARY | 2025-07-10 12:02 | XMS_ITS | Clinical Summary ---
Author Organization [facility] Address [address] [place] [address] Phone Care Team Providers Care Composite Laminator Name Role Phone Thao Mcqueen MD Primary Care Provider [phone] Source Comments This disclosure is being made pursuant to the Care Everywhere program,applicable federal and state laws, and may not contain all informationavailable regarding this patient.[facility] Practices Encounters Date Type Department Care Team Description 06/19/2025 Telephone [facility] Surgery Specialty - Transplant [address] [place] [phone] Sabiha Craig 06/15/2025 Orders/Notes [facility] Specialty - Transplant [address] [place] [address] Isabella Vigil, RN 06/14/2025 Telephone [facility] Specialty - Transplant [address] [place] [phone] Darlin Fontenot Ae 06/13/2025 Letter (Out) [facility] Specialty - Transplant [address] [place] [phone] Anna Sellers 06/13/2025 Abstract [facility] Specialty - Transplant [address] [place] [phone] Anna Sellers from Last 3 Months Social [...] on file 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 Gender Identity Not on file Sexual Orientation Not on file Last Filed Vital Signs Vital Sign Reading Time Taken Comments Blood Pressure - - Pulse - - Temperature - - Respiratory Rate - - Oxygen Saturation - - Inhaled Oxygen Concentration - - Weight - - Height 175.3 cm (5' 9) 06/13/2025 3:00 PM CDT Body Mass Index - - Plan of Treatment Health Maintenance Due Date Last Done Comments Annual Physical Visit [address] Colonography 1999 Colonoscopy 1999 Colorectal Screening 1999 FIT-DNA 1999 FIT 1999 FOBT 1999 Flex Sigmoidoscopy 1999 RSV Vaccine (1 - Risk 60-74 years 1-dose series) 2014 Pneumococcal Vaccine (3 of 3 - PCV20 or PCV21) 07/13/2024 07/13/2019, 07/13/2018 [id number] Vaccine ( season) 2025 08/31/2023, 06/30/2022, 02/05/2022, Additional history exists Influenza Vaccine: Seasonal (#1) 06/12/2025 08/31/2023, 06/30/2022, 07/12/2021, Additional history exists Tetanus Diphtheria Pertussis (3 - Td or Tdap) 10/12/2027 10/12/2017, 03/19/2017, 11/27/2006 Lipid Disorder Screening 01/15/2030 01/15/2025 Zoster Vaccine Completed 07/12/2021, 04/24/2021 Care Teams Composite Laminator Relationship Specialty Start Date End Date Thao Mcqueen MD [address] [place] [id number] PCP - General 08/30/24
[2025-07-10 12:14] LABS: Alanine Aminotransferase 49 U/L (6-50); Albumin Level 4.0 g/dL (3.5-5.1); Alkaline Phosphatase 184 U/L (38-126); Anion Gap 12 mmol/L (4-12); Aspartate Amino Transferase 30 U/L (17-59); Bilirubin,Total 0.2 mg/dL (0.2-1.3); Blood Urea Nitrogen 32 mg/dL (9-20); Calcium 9.4 mg/dL (8.4-10.2); Carbon Dioxide 18 mmol/L (22-30); Chloride 109 mmol/L (98-107); Estimated Glomerular Filt Rate 41; Glucose 105 mg/dL (65-110); Magnesium 1.8 mg/dL (1.6-2.3); Potassium 5.0 mmol/L (3.4-5.0); Sodium 139 mmol/L (137-145); Total Protein 7.3 g/dL (6.3-8.2); Total Protein Urine Random 11 mg/dL; Ur Ttl Prot Creatinine Ratio 0.12 mg/mg (0-0.20)
[2025-07-10 12:17] LABS: Add Urine Microscopic? YES; Appearance Urine Clear (Clear); Glucose Urine UA Negative (Negative); Leukocyte Esterase Ur 1+ LEU/UL (Negative); Need Manual Microscopic Reviewed; Nitrate Urine Negative (Negative); Specific Grav Ur 1.017 (1.001-1.035)
[2025-07-13 05:08] LABS: Tacrolimus (FK506), Blood 6.7 ng/mL (5.0-20.0)
--- OUTSIDE RECORDS SUMMARY | 2025-09-02 19:00 | XMS_ITS | Clinical Summary ---
Author Organization Unknown Care Team Providers Care Parts Classifier Name Role Phone ALEX MEDRANO Unavailable Unavailable YOSEPH PHYSICAL THERAPIST, DEYSI Unavailable Unavailable OSWALDO WOOD DRILLING MACHINE OPERATOR, ZITA Unavail able Unavailable WILEY OCCUPATIONAL THERAPIST, JOYCE Unavailable Unavailable MIAN REGISTERED NURSE, ROSAURA Unavailable Unavailable Payers Payer Name Policy Type Policy Number Effective Date Expira tion Date [employer] MEDICARE ADVANTAGE - EPISODIC Problems Condition Name Condition Details Condition Category Status Onset Date Resolution Date Last Treatment Date Treating Clinician Comments ENCOUNTER FOR AFTERCARE FOLLOWING KIDNEY TRANSPLANT Active 06-26 00:00: 00 TYPE 2 DIABETES MELLITUS WITH DIABETIC NEUROPATHY, UNSP Active 10-12 00:00: 00 ESSENTIAL (PRIMARY) HYPERTENSION Active 10-12 00:00: 00 UNSPECIFIED ATRIAL FIBRILLATION Active 10-12 00:00: 00 ANEMIA IN OTHER CHRONIC DISEASES CLASSIFIED ELSEWHERE Active 10-12 00:00: 00 GOUT, UNSPECIFIED Active 10-12 00:00: 00 PURE HYPERCHOLEST EROLEMIA, UNSPECIFIED Active 10-12 00:00: 00 OBSTRUCTIVE SLEEP APNEA (ADULT) (PEDIATRIC) Active 10-12 00:00: 00 GASTRO-ESOPH AGEAL REFLUX DISEASE WITHOUT ESOPHAGITIS Active 10-12 00:00: 00 PERSONAL HISTORY OF NICOTINE DEPENDENCE Active 10-12 00:00: 00 ASSISTANT ADMINISTRATOR (CURRENT) USE OF ASPIRIN Active 10-12 00:00: 00 ASSISTANT ADMINISTRATOR (CURRENT) USE OF ANTIBIOTICS Active 10-12 00:00: 00 JAIL (CURRENT) USE OF INSULIN Active 10-12 00:00: 00 ASSISTANT ADMINISTRATOR (CURRENT) USE OF SYSTEMIC STEROIDS Active 10-12 00:00: 00 JAIL (CURRENT) USE OF CALCINEURIN INHIBITOR Active 10-12 00:00: 00 Allergies, Adverse Reactions, Alerts Allergy Name Allergy Type Status Severity Reaction(s) Onset Date Inactive Date Treating Clinician Comments MORPHINE Propensity to adverse reactions Active 06-28 13:06: 59 ADHESIVE SENSITIVITY Propensity to adverse reactions Active 06-28 13:07: 10 LIVE VACCINES Propensity to adverse reactions Active 06-28 13:07: 24 Medications Ordered Medication Name Filled Medication Name Start Date Stop Date Current Medication? Ordering Clinician Indication Dosage Frequency Signature (SIG) Comments Components acetaminoph en 500 mg tablet 06-30 00:00: 00 Yes [id number] PAIN 2 tablet EVERY 6 HOURS 2 tablet EVERY 6 HOURS (route: oral) Med Classific ation: Analgesic , Anti-infl ammatory or Antipyret ic Aspirin Childrens 81 mg chewable tablet 06-30 00:00: 00 Yes [id number] ASPIRIN THERAPY 1 tablet ONCE DAILY 1 tablet ONCE DAILY (route: oral) Med Classific ation: Hematolog ical Agents atorvastati n 80 mg tablet 06-30 00:00: 00 Yes [id number] HYPERLIPIDE LARISSA 1 tablet BEDTIME 1 tablet BEDTIME (route: oral) Med Classific ation: Cardiovas cular Therapy Agents Bactrim DS 800 mg-160 mg tablet 06-30 00:00: 00 Yes [id number] TRANSPLANT UTI 1 tablet 3 TIMES A WEEK 1 tablet 3 TIMES A WEEK (route: oral) Med Classific ation: Anti-Infe ctive Agents carvedilol 12.5 mg tablet 06-30 00:00: 00 Yes [id number] HYPERTENSIO N 1 tablet TWICE DAILY 1 tablet TWICE DAILY (route: oral) Med Classific ation: Cardiovas cular Therapy Agents cetirizine 10 mg tablet 06-30 00:00: 00 Yes [id number] NASAL CONGESTION 1 tablet ONCE DAILY 1 tablet ONCE DAILY (route: oral) Med Classific ation: Respirato ry Therapy Agents cyclobenzap rine 10 mg tablet 06-30 00:00: 00 Yes [id number] MUSCLE SPASMS 1 tablet 3 TIMES DAILY 1 tablet 3 TIMES DAILY (route: oral) Med Classific ation: Locomotor System doxazosin 2 mg tablet 06-30 00:00: 00 Yes [id number] HYPERTENSIO N 1 tablet ONCE DAILY 1 tablet ONCE DAILY (route: oral) Med Classific ation: Cardiovas cular Therapy Agents Myfortic 180 mg tablet,davy yed release 06-30 00:00: 00 Yes [id number] ANTI REJECTION FOR KIDNEY TRANSPLANT 2 tablet TWICE DAILY 2 tablet TWICE DAILY (route: oral) Med Classific ation: Immunosup pressive Agents nifedipine ER 60 mg tablet,exte nded release 06-30 00:00: 00 Yes [id number] HYPERTENSIO N 1 tablet TWICE DAILY 1 tablet TWICE DAILY (route: oral) Med Classific ation: Cardiovas cular Therapy Agents Novolog FlexPen U-100 Insulin aspart 100 unit/mL (3 mL) subcutane s 06-30 00:00: 00 Yes [id number] DIABETES Per instruc tions DIRECTED Per instructio ns DIRECTED (route: subcutaneo ) Med Classific ation: Endocrine oxycodone 5 mg tablet 06-30 00:00: 00 Yes [id number] PAIN 1 tablet EVERY 6 HOURS 1 tablet EVERY 6 HOURS (route: oral) Med Classific ation: Analgesic , Anti-infl ammatory or Antipyret ic Phosphorous 250 mg tablet 06-30 00:00: 00 Yes [id number] PHOSPHATE SUPPLEMENT 2 tablet TWICE DAILY 2 tablet TWICE DAILY (route: oral) Med Classific ation: Genitouri nary Therapy prednisone 5 mg tablet 06-30 00:00: 00 Yes [id number] INCREASE APPETITE 1 tablet ONCE DAILY 1 tablet ONCE DAILY (route: oral) Med Classific ation: Endocrine pregabalin 25 mg capsule 06-30 00:00: 00 Yes [id number] NEUROPATHIC PAIN 1 capsule ONCE DAILY 1 capsule ONCE DAILY (route: oral) Med Classific ation: Central Nervous System Agents Protonix 40 mg tablet,davy yed release 06-30 00:00: 00 Yes [id number] ACID REFLUX 1 tablet ONCE DAILY 1 tablet ONCE DAILY (route: oral) Med Classific ation: Gastroint estinal Therapy Agents tacrolimus 1 mg capsule, immediate-r elease 06-30 00:00: 00 Yes [id number] ANTI-REJECT ION FOR KIDNEY TRANSPLANT 8 capsule ONCE DAILY 8 capsule ONCE DAILY (route: oral) Med Classific ation: Immunosup pressive Agents valganciclo vir 450 mg tablet 06-30 00:00: 00 Yes [id number] ANTI-REJECT ION KIDNEY TRANSPLANT 1 tablet ONCE DAILY 1 tablet ONCE DAILY (route: oral) Med Classific ation: Anti-Infe ctive Agents Vital Signs Vital Name Observation Time Observation Value Commen ts Temperature 2025-07-10 09:12:00.000 97.7 [degF] Temperature 2025-07-06 11:04:00.000 97.9 [degF] BMI (%) 2025-07-06 11:04:00.000 30 kg/m2 Height 2025-07-06 11:04:00.000 69 [in_us] Pulse 2025-07-10 09:12:00.000 65 /min Pulse 2025-07-06 11:04:00.000 60 /min O2 Saturation (%) 2025-07-10 09:12:00.000 95 % O2 Saturation (%) 2025-07-06 11:04:00.000 95 % Respirations 2025-07-10 09:12:00.000 16 /min Respirations 2025-07-06 11:04:00.000 16 /min Weight (lbs) 2025-07-10 09:12:00.000 204.4 [lb_av] Weight (lbs) 2025-07-06 11:04:00.000 207 [lb_av] Systolic Blood Pressure 2025-07-10 09:12:00.000 118 mm [Hg] Systolic Blood Pressure 2025-07-06 11:04:00.000 110 mm [Hg] Diastolic Blood Pressure 2025-07-10 09:12:00.000 58 mm [Hg] Diastolic Blood Pressure 2025-07-06 11:04:00.000 62 mm [Hg] Plan of Treatment Planned Activity Planned Date Details Comments Future Scheduled Test SKILLED NU RSE TO INSTRUCT ON POST KIDNEY TRANSPLANT CARE AND SYMPTOMS OF COMPLICATIONS TO REPORT. [code = SKILLED NURSE TO INSTRUCT ON POST KIDNEY TRANSPLANT CARE AND SYMPTOMS OF COMPLICATIONS TO REPORT.] Future Scheduled Test HOME HEALT H NURSE TO INSTRUCT PATIENT/CAREGIVER AND ADMINISTER WOUND CARE TO LEFT LOWER ABDOMEN CLOSED INCISION / SUTURE LINE: SN TO ASSESS CLOSED INCISON SITE AT EACH VVISITFOR ANY S/S OF INFECTION OR DEHISCENCE. SITE MAY REMAIN JOSE L. MAY ADD 2 PRN VISITS PER MONTH FOR WOUND COMPLICATIONS SUCH REDNESS, INCREASE IN DRAINAGE AND OR PAIN OR COMPROMISED DRESSING. CAREGIVER MAY PERFORM DRESSING CHANGE IN ABSENCE OF HOME HEALTH STAFF ONCE ABLE TO ACCURATELY RETURN DEMONSTRATE. [code = HOME HEALTH NURSE TO INSTRUCT PATIENT/CAREGIVER AND ADMINISTER WOUND CARE TO LEFT LOWER ABDOMEN CLOSED INCISION / SUTURE LINE: SN TO ASSESS CLOSED INCISON SITE AT EACH VVISITFOR ANY S/S OF INFECTION OR DEHISCENCE. SITE MAY REMAIN JOSE L. MAY ADD 2 PRN VISITS PER MONTH FOR WOUND COMPLICATIONS SUCH REDNESS, INCREASE IN DRAINAGE AND OR PAIN OR COMPROMISED DRESSING. CAREGIVER MAY PERFORM DRESSING CHANGE IN ABSENCE OF HOME HEALTH STAFF ONCE ABLE TO ACCURATELY RETURN DEMONSTRATE.] Future Scheduled Test THE CER TIFYING PHYSICIAN, ASSOCIATED PHYSICIAN, NPP OR PA WITHIN THE SAME GROUP MAY APPROVE AND SIGN THE ORDER (ON ANY PAGE) ATTESTING THAT THE COMPREHENSIVE OUTCOME ASSESSMENTS, EVALUATIONS, AND HOME HEALTH CERTIFICATION PLANS SUPPORT HOMEBOUND STATUS. HOME HEALTH WEB-PORTAL DOCUMENTATION ACCESSED BY THE PHYSICIAN MUST BE INCORPORATED INTO THE MEDICAL RECORD TO CORROBORATE THE PHYSICIAN, NPP, OR PA S F2F ENCOUNTER TO SUPPORT ELIGIBILITY FOR HOME HEALTH SERVICES. [code = THE CERTIFYING PHYSICIAN, ASSOCIATED PHYSICIAN, NPP OR PA WITHIN THE SAME GROUP MAY APPROVE AND SIGN THE ORDER (ON ANY PAGE) ATTESTING THAT THE COMPREHENSIVE OUTCOME ASSESSMENTS, EVALUATIONS, AND HOME HEALTH CERTIFICATION PLANS SUPPORT HOMEBOUND STATUS. HOME HEALTH WEB-PORTAL DOCUMENTATION ACCESSED BY THE PHYSICIAN MUST BE INCORPORATED INTO THE MEDICAL RECORD TO CORROBORATE THE PHYSICIAN, NPP, OR PA S F2F ENCOUNTER TO SUPPORT ELIGIBILITY FOR HOME HEALTH SERVICES.] Future Scheduled Test EACH ORDER ED IN-HOME OR TELEHEALTH VISIT, THE SKILLED NURSE WILL CONDUCT A COMPREHENSIVE ASSESSMENT INCLUDING VITAL SIGNS, PAIN, SAFETY, MENTAL/COGNITIVE/PSYCHOSOCIAL STATUS, MED MANAGEMENT, NUTRITION, SKIN INTEGRITY, PRESSURE ULCER PREVENTION, AND PATIENT/CAREGIVER ABILITY TO SUPPORT ORDERED CARE. SKILLED NURSE WILL INSTRUCT ON DISEASE PROCESS, MED MGMT., FALL PREVENTION AND SAFETY, INFECTION CONTROL AND PREVENTION, WARNING SIGNS, ADDRESS RESULTS OUTSIDE OF ORDERED PARAMETERS LISTED ON CARE PLAN, AND COORDINATE DISCHARGE WITH THE TREATING PROVIDER. MAY ACCEPT ORDERS FROM THE FOLLOWING PROVIDER(S) WHO WILL BE CONSULTING ON THE CERTIFIED CARE PLAN: DR. MEDRANO [code = EACH ORDERED IN-HOME OR TELEHEALTH VISIT, THE SKILLED NURSE WILL CONDUCT A COMPREHENSIVE ASSESSMENT INCLUDING VITAL SIGNS, PAIN, SAFETY, MENTAL/COGNITIVE/PSYCHOSOCIAL STATUS, MED MANAGEMENT, NUTRITION, SKIN INTEGRITY, PRESSURE ULCER PREVENTION, AND PATIENT/CAREGIVER ABILITY TO SUPPORT ORDERED CARE. SKILLED NURSE WILL INSTRUCT ON DISEASE PROCESS, MED MGMT., FALL PREVENTION AND SAFETY, INFECTION CONTROL AND PREVENTION, WARNING SIGNS, ADDRESS RESULTS OUTSIDE OF ORDERED PARAMETERS LISTED ON CARE PLAN, AND COORDINATE DISCHARGE WITH THE TREATING PROVIDER. MAY ACCEPT ORDERS FROM THE FOLLOWING PROVIDER(S) WHO WILL BE CONSULTING ON THE CERTIFIED CARE PLAN: DR. MEDRANO] Future Scheduled Test PATIENT RE QUIRED A DELAY IN THE HOME HEALTH START OF CARE/RESUMPTION OF CARE. THE DELAY(S) REQUIRED A NOTIFICATION AND APPROVAL BY THE PHYSICIAN OR ALLOWABLE PRACTITIONER WHICH WAS DONE ON 06/29/2025, 06/29/2025 THE NEW PHYSICIAN ORDERED START OF CARE/RESUMPTION OF CARE DATE(S) 07/10/2025, 07/06/2025 PATIENT S REASON(S) TO DELAY HOME HEALTH INCLUDED RECEIVED A CALL FROM ERAN AT [facility] AND THEY WOULD LIKE PATIENT TO START ON 07/10, ERAN REQUESTS [code = PATIENT REQUIRED A DELAY IN THE HOME HEALTH START OF CARE/RESUMPTION OF CARE. THE DELAY(S) REQUIRED A NOTIFICATION AND APPROVAL BY THE PHYSICIAN OR ALLOWABLE PRACTITIONER WHICH WAS DONE ON 06/29/2025, 06/29/2025 THE NEW PHYSICIAN ORDERED START OF CARE/RESUMPTION OF CARE DATE(S) 07/10/2025, 07/06/2025 PATIENT S REASON(S) TO DELAY HOME HEALTH INCLUDED RECEIVED A CALL FROM ERAN AT [facility] AND THEY WOULD LIKE PATIENT TO START ON 07/10, ERAN REQUESTS] Future Scheduled Test HOME HEALT H NURSE WILL INSTRUCT PATIENT/CAREGIVER ON TYPE 1 DIABETES DISEASE PROCESS, HOW TO CREATE A DIABETIC TOOLKIT TO MANAGE INVENTORY OF SUPPLIES, HOW TO PLAN FOR A SICK-DAY, AND WARNING SIGNS WHEN THE PATIENT EXPERIENCES LOW BLOOD SUGAR. [code = HOME HEALTH NURSE WILL INSTRUCT PATIENT/CAREGIVER ON TYPE 1 DIABETES DISEASE PROCESS, HOW TO CREATE A DIABETIC TOOLKIT TO MANAGE INVENTORY OF SUPPLIES, HOW TO PLAN FOR A SICK-DAY, AND WARNING SIGNS WHEN THE PATIENT EXPERIENCES LOW BLOOD SUGAR.] Future Scheduled Test HOME HEALT H NURSE TO INSTRUCT ON CHRONIC KIDNEY DISEASE ITS COMPLICATIONS, AND WHEN TO CONTACT THE AGENCY, PHYSICIAN OR 911 [code = HOME HEALTH NURSE TO INSTRUCT ON CHRONIC KIDNEY DISEASE ITS COMPLICATIONS, AND WHEN TO CONTACT THE AGENCY, PHYSICIAN OR 911] Future Scheduled Test HOME HEALT H NURSE WILL DRAW CBC/DIFF, CMP, MAGNESIUM, PHOSPHORUS, AND TACROLIMUS LEVEL VIA VENIPUNCTURE . HOME HEALTH NURSE TO OBTAIN UA WITH CULTURE, URINE PROTIEN/CREATINIE RATIO. OBTAIN ON MONDAYS AND THURSDAYS STARTING WEEK OF FOR KIDNEY TRANSPLAND. RESULTS TO DR. JOYCE CRUMP AT [facility], ATTENTION POST KIDNEY NURSE PRN, FAX [phone]. PATIENT/CAREGIVER INSTRUCTION ON REASON FOR LAB WORK. [code = HOME HEALTH NURSE WILL DRAW CBC/DIFF, CMP, MAGNESIUM, PHOSPHORUS, AND TACROLIMUS LEVEL VIA VENIPUNCTURE . HOME HEALTH NURSE TO OBTAIN UA WITH CULTURE, URINE PROTIEN/CREATINIE RATIO. OBTAIN ON MONDAYS AND THURSDAYS STARTING WEEK OF FOR KIDNEY TRANSPLAND. RESULTS TO DR. JOYCE CRUMP AT [facility], ATTENTION POST KIDNEY NURSE PRN, FAX [phone]. PATIENT/CAREGIVER INSTRUCTION ON REASON FOR LAB WORK.] Future Scheduled Test HOME HEALT H NURSE WILL ASSESS FOR COMPLICATIONS RELATED TO ANTICOAGULATION ANTIPLATELET USE AND INSTRUCT PATIENT/CAREGIVER ABOUT PRECAUTIONS TO FOLLOW AND SIGNS/SYMPTOMS TO REPORT. [code = HOME HEALTH NURSE WILL ASSESS FOR COMPLICATIONS RELATED TO ANTICOAGULATION ANTIPLATELET USE AND INSTRUCT PATIENT/CAREGIVER ABOUT PRECAUTIONS TO FOLLOW AND SIGNS/SYMPTOMS TO REPORT.] Future Scheduled Test PHYSICAL T HERAPIST TO EVALUATE AND TREAT [code = PHYSICAL THERAPIST TO EVALUATE AND TREAT] Future Scheduled Test OCCUPATION AL THERAPIST TO EVALUATE AND TREAT [code = OCCUPATIONAL THERAPIST TO EVALUATE AND TREAT] Goal Patient Goal - T O NOT REJECT KIDNEY, BE PAIN FREE Goal Provider Goal - PATIENT/CAREGIVER WILL INDEPENDENTLY DEMONSTRATE POST KIDNEY TRANSPLANT CARE, IDENTIFICATION OF COMPLICATIONS AND STRATEGIES TO KEEP TRACK OF ANTI-REJECTION MEDICATION SCHEDULE, LAB WORK AND MD APPOINTMENTS. Goal Provider Goal - PATIENT/CAREGIVER WILL DEMONSTRATE APPROPRIATE INCISIONAL CARE. INCISION / SUTURE LINE IMPROVE EVIDENCED BY DECREASE IN SIZE / DRAINAGE OF WOUND, NO SIGNS AND SYMPTOMS OF INFECTION, DECREASED PAIN, HEALING IS PROGRESSING BY 07/10/25. Goal Provider Goal - A PLAN OF CARE WILL BE ESTABLISHED THAT MEETS ALL PATIENT'S [facility] NEEDS AND COUNTER SIGNED BY PHYSICIAN. Goal Provider Goal - PATIENT WILL BE FREE OF FALLS AND HOSPITALIZATIONS THROUGHOUT EPISODE OF CARE. PATIENT/CAREGIVER WILL UNDERSTAND AND ADHERE TO ORDERED DIET. PATIENT/CAREGIVER WILL INDEPENDENTLY MANAGE MEDICATIONS, UNDERSTAND ANY CHANGES, SIDE EFFECTS TO REPORT BY EOE. PATIENT WILL BE FREE OF INFECTION AND UNDERSTAND MEASURES OF PREVENTION. PATIENT/CAREGIVER WILL COLLABORATE WITH SKILLED NURSE TO DEVELOP POC AT SOC AND ON AN ONGOING BASIS UPDATES ARE NEEDED. UNDERSTAND PROGRESS MADE/DISCHARGE PLANNING. ADDITIONAL ORDERS WILL BE RECEIVED FROM ALTERNATE PHYSICIANS IN A TIMELY MANNER. Goal Provider Goal - PATIENT WILL RECEIVE HOME HEALTH SERVICES ON ORDERED START DATE. Goal Provider Goal - PATIENT/CAREGIVER WILL VERBALIZE UNDERSTANDING OF TYPE 1 DIABETES AND THE IMPORTANCE OF MANAGING THE BLOOD SUGAR WITHIN THE EXPECTED RANGE. PATIENT/CAREGIVER WILL ESTABLISH A DIABETIC TOOLKIT AND A SICK-DAY PLAN TO PREPARE FOR POTENTIAL CHANGES WITH BLOOD SUGARS RANGES. PATIENT/CAREGIVER WILL VERBALIZE WARNING SIGNS OF LOW BLOOD SUGAR AND WHAT ACTIONS TO TAKE. Goal Provider Goal - PATIENT/CAREGIVER WILL INDEPENDENTLY VERBALIZE THE DEFINITIONS OF CKD, COMPLICATIONS, AND TREATMENTS OF THE DISEASE BY. PATIENT/CAREGIVER WILL INDEPENDENTLY VERBALIZE SYMPTOMS TO REPORT TO THE PHYSICIAN BY THE END OF HOME HEALTH SERVICES. Goal Provider Goal - PATIENT/CAREGIVER WILL VERBALIZE UNDERSTANDING OF THE NEED TO COLLECT THE LAB AND TOLERATE THE LAB COLLECTION PROCEDURE WITHOUT INJURY OR INFECTION. Goal Provider Goal - PATIENT/CAREGIVER WILL VERBALIZE UNDERSTANDING OF ANTICOAGULATION ANTIPLATELET COMPLICATIONS TO REPORT AND PRECAUTIONS TO FOLLOW BY END OF HOME HEALTH SERVICES. Goal Provider Goal - Goal Provider Goal - Encounters Start Date/Time End Date/Time Encounter Type Admission Type Attending Clinicians Care Facility Care Department Encounter ID Discharge Date Discharge Status Discharge Condition Discharge Reason Percent Goals Met 2025-07-06 00:00:00 2025-09-03 00:00:00 Outpatient NEW ADMISSION ROSAURA PAPPAS [facility] [id number] 39.29
== END 2025-07-10 11:15 | disposition home or self-care (01) ==
DX: Z48.22 Encounter for aftercare following kidney transplant (principal)
CPT/HCPCS: 80053; 80197; 81001; 82570; 83735; 84100; 84156; 87086